=== PATIENT | male | born 1975 | race Caucasian/White ===

== ENCOUNTER → 2017-07-19 13:28 | Outpatient (CLI) | payer MEDICARE, SELFPAY ==
[2017-07-19 13:54] LABS: Basophils % 0.3 % (0.1-2.0); Eosinophils # 0.3 K/mm3 (0.0-0.4); Eosinophils % 2.7 % (0.1-12.0); Hematocrit 44.6 % (42.0-52.0); Hemoglobin 14.2 g/dL (14.1-18.0); Lymphocytes # 1.8 K/mm3 (0.7-4.5); Lymphocytes % 14.5 K/mm3 (10-50); Mean Corpuscular HGB Conc 31.9 g/dL (31.8-35.4); Mean Corpuscular Hemoglobin 30.3 pg (27.0-31.2); Mean Corpuscular Volume 94.9 fl (80-94); Mean Platelet Volume 6.8 fl (7.4-10.4); Monocytes # 0.6 K/mm3 (0.1-1.0); Monocytes % 4.9 % (1.7-9.3); Neutrophils # 9.9 K/mm3 (1.8-7.8); Neutrophils % 77.7 % (37.0-80.0); Platelet Count 217 K/mm3 (142-424); Red Cell Distribution Width 12.2 % (11.5-17.5); White Blood Count 12.8 K/mm3 (4.8-10.8)
[2017-07-19 16:48] LABS: Alanine Aminotransferase 17 U/L (12-78); Albumin Level 3.9 gm/dL (3.4-5.0); Albumin/Globulin Ratio 1.1 (1.1-1.8); Alkaline Phosphatase 108 U/L (46-116); Anion Gap 12.1 mEq/L (5-15); Aspartate Amino Transferase 21 U/L (15-37); Bilirubin,Total 0.4 mg/dL (0.2-1.0); Blood Urea Nitrogen 17 mg/dL (7-18); Calcium 8.8 mg/dL (8.5-10.1); Carbon Dioxide 31 mmol/L (21.0-32.0); Chloride 104 mmol/L (98-107); Creatinine,Serum 0.82 mg/dL (0.70-1.30); Estimated Glomerular Filt Rate 103 ml/min (>60); GFR (African American) 125 ML/MIN (>60); Globulin 3.6 gm/dl (1.3-3.2); Glucose 78 mg/dL (74-106); Potassium 4.1 mmoL/L (3.5-5.1); Sodium 143 mmol/L (136-145); Total Protein,Serum 7.5 gm/dL (6.4-8.2)
== END ==
PROVIDERS: PCP Family Medicine; Visit Provider Nurse Practitioner Family
DX: B19.20 Unspecified viral hepatitis C without hepatic coma (principal)
CPT/HCPCS: 36415; 80053; 85025

== ENCOUNTER 2017-07-19 13:49 | Emergency (ER) | payer MEDICARE, SELFPAY ==
[2017-07-19 15:44] VITALS: BP 121/61; PULSE 63; RESP 20; TEMP 36.4; O2SAT 97; BMI 22.8
--- NOTE | 2017-07-19 17:25 | HMH.EDUTC ---
[facility] Disposition Clinical Impression: Tobacco abuse, High risk medication use Asthma exacerbation Qualifiers: Asthma severity: moderate Asthma persistence: persistent Qualified Code(s): J45.41 - Moderate persistent asthma with (acute) exacerbation Disposition: Home, Self-Care Condition on Discharge: Good Instructions: DI for Asthma -- Adult, DI for Chronic Obstructive Pulmonary Disease Additional Instructions: * STOP SMOKING!!!! * start steroid tomorrow since you had injection (solumedrol) in clinic. These medications were approved by [facility] with specialty pharmacy. * Monitor Temp. FU if fever develops * humidifier/vaporizer/hot steamy shower * Inhaler every 4-6 hours as needed like we discussed. If you are using this multiple times a day, everyday, then it is time for a treatment change. It is VERY important you follow up with your primary care doctor to discuss the use of your albuterol and what happens when you stop taking it as it is possible you also have COPD and need additional medication * Olga RESTREPO was also ok'd by the specialty pharmacy so if you want to continue it, that is ok * The aches/pains, lightheaded, dizziness could be due to your wheezing and cough but also could be related to your new medication and its side effects so if the persist or worsen as we discussed, be sure to follow up with the pharmacy at the number you have in your file that you gave me today Prescriptions: Albuterol Sulfate [Albuterol HFA Inhaler] 1 - 2 puffs IH Q4-6H PRN #1 inh PRN Reason: Shortness Of Breath Or Wheezing predniSONE [Prednisone 10mg Tab Dose-Pack] 10 mg PO UD DOSE PK #1 pack Referrals: Juluis Anderson [Primary Care Provider] - (Call tomorrow and schedule follow up in 1-2 days to discuss what we talked about. Take your discharge instructions with you. 911/ER for any difficulty breathing. Specialty pharmacy for persistant or worsening aches, lightheadedness, dizziness, fatigue.) Time of Disposition: 18:53 Medical Decision Making Vital Signs: 07/19/17 15:44 07/19/17 18:42 Temperature 97.5 F L Temperature Source Temporal Artery Scan Pulse Rate 78 Pulse Rate [Right Brachial] 63 Respiratory Rate 20 Blood Pressure [Right Arm] 121/61 Blood Pressure Mean [Right Arm] 81 Blood Pressure Source [Right Arm] Automatic Cuff Blood Pressure Position [Right Arm] Sitting 02 Sat by Pulse Oximetry 97 Oxygen Delivery Method Room Air - Lab Data Lab results reviewed: Yes: I reviewed the patient's lab results. Flu A neg Flu B neg Orders (Tests/Meds): ED MEDICATIONS Discontinued Medications Generic Name Dose Route Start Last Admin Trade Name Simone PRN Reason Stop Dose Admin Albuterol Sulfate 2.5 mg 07/19/17 17:39 07/19/17 18:38 Albuterol 0.083% 2.5mg/3ml Neb IH 07/19/17 17:40 2.5 mg ONCE ONE Administration Methylprednisolone Sodium Succinate 125 mg 07/19/17 18:24 07/19/17 18:44 Solu-Medrol 125mg/2ml Vial IM 07/19/17 18:25 125 mg ONCE ONE Administration ORDERS Category Date Time Status XR chest 2V Stat Exams 07/19/17 17:39 Taken - Radiology Data #1 Image(s): Chest Image Reviewed: Yes I reviewed the patient's radiology image, Yes I reviewed the patient's radiology image w/the ED provider Preliminary Findings: Normal/NAD (rvwd w/ Dr. Gee, [facility]) - Dejan Inquiry Pt receiving controlled substance: No - Reevaluation(s) Time: 17:41 Reevaluation #1: called Specialty clinic. Closed. Chose option to Speak to medical center teletypesetter operator then asked to speak to [facility] specialty pharmacist. On hold while teletypesetter operator tried to reach someone. Eventually spoke to [facility]. Rvwd pt's symptoms, vitals, and exam. Agreed that some of the symptoms could be side effects of the medication. Discussed how pt would benefit from a steroid considering his wheezing and that a CXR was pending to r/o pneumonia. She had to return my call once at a computer
--- NOTE | 2017-07-19 17:39 | ED_ITS ---
[facility] [place] Clinical Impression: Tobacco abuse, High risk medication use Asthma exacerbation Qualifiers: Asthma severity: moderate Asthma persistence: persistent Qualified Code(s): J45.41 - Moderate persistent asthma with (acute) exacerbation Disposition: Home, Self-Care Condition on Discharge: Good Instructions: DI for Asthma -- Adult, DI for Chronic Obstructive Pulmonary Disease Additional Instructions: * STOP SMOKING!!!! * start steroid tomorrow since you had injection (solumedrol) in clinic. These medications were approved by [facility] with [facility] pharmacy. * Monitor Temp. FU if fever develops * humidifier/vaporizer/hot steamy shower * Inhaler every 4-6 hours as needed like we discussed. If you are using this multiple times a day, everyday, then it is time for a treatment change. It is VERY important you follow up with your primary care doctor to discuss the use of your albuterol and what happens when you stop taking it as it is possible you also have COPD and need additional medication * Olga RESTREPO was also ok'd by the specialty pharmacy so if you want to continue it, that is ok * The aches/pains, lightheaded, dizziness could be due to your wheezing and cough but also could be related to your new medication and its side effects so if the persist or worsen as we discussed, be sure to follow up with the pharmacy at the number you have in your file that you gave me today Prescriptions: Albuterol Sulfate [Albuterol HFA Inhaler] 1 - 2 puffs IH Q4-6H PRN #1 inh PRN Reason: Shortness Of Breath Or Wheezing predniSONE [Prednisone 10mg Tab Dose-Pack] 10 mg PO UD DOSE PK #1 pack Referrals: Julius Anderson [Primary Care Provider] - (Call tomorrow and schedule follow up in 1-2 days to discuss what we talked about. Take your discharge instructions with you. 911/ER for any difficulty breathing. Specialty pharmacy for persistant or worsening aches, lightheadedness, dizziness, fatigue.) Time of Disposition: 18:53 Medical Decision Making Vital Signs: 07/19/17 15:44 07/19/17 18:42 Temperature 97.5 F L Temperature Source Temporal Artery Scan Pulse Rate 78 Pulse Rate [Right Brachial] 63 Respiratory Rate 20 Blood Pressure [Right Arm] 121/61 Blood Pressure Mean [Right Arm] 81 Blood Pressure Source [Right Arm] Automatic Cuff Blood Pressure Position [Right Arm] Sitting 02 Sat by Pulse Oximetry 97 Oxygen Delivery Method Room Air - Lab Data Lab results reviewed: Yes: I reviewed the patient's lab results. Flu A neg Flu B neg Orders (Tests/Meds): ED MEDICATIONS Discontinued Medications Generic Name Dose Route Start Last Admin Trade Name Freq PRN Reason Stop Dose Admin Albuterol Sulfate 2.5 mg 07/19/17 17:39 07/19/17 18:38 Albuterol 0.083% 2.5mg/3ml Neb IH 07/19/17 17:40 2.5 mg ONCE ONE Administration Methylprednisolone Sodium Succinate 125 mg 07/19/17 18:24 07/19/17 18:44 Solu-Medrol 125mg/2ml Vial IM 07/19/17 18:25 125 mg ONCE ONE Administration ORDERS Category Date Time Status XR chest 2V Stat Exams 07/19/17 17:39 Taken - Radiology Data #1 Image(s): Chest Image Reviewed: Yes I reviewed the patient's radiology image, Yes I reviewed the patient's radiology image w/the ED provider Preliminary Findings: Normal/NAD (rvwd w/ Dr. Gee, ER ) - Dejan Inquiry Pt receiving controlled
--- NOTE | 2017-07-19 17:39 | XR_ITS ---
XR chest 2V HISTORY: ITS.REASON: cough/wheezing, hx asthma, on havoni,out of albuterol ORDERING PHYSICIAN: Alyssa Lopez PATIENT AGE: 41 years COMPARISON: 04/05/2017 FINDINGS: The cardiomediastinal silhouette and pulmonary vascularity are within normal limits. Mild hyperinflation with attenuation of peripheral pulmonary vessels consistent with small airway disease. No lobar consolidation or collapse. No acute bony finding. No change chronic blunting of the right CP angle IMPRESSION: Hyperinflation suggesting small airway disease otherwise negative
[2017-07-19 18:42] VITALS: PULSE 77; PULSE 78
[2017-07-19 19:03] LABS: UTC Influenza A Antigen Negative (Negative); UTC Influenza B Antigen Negative (Negative)
== END 2017-07-19 18:54 | disposition home or self-care (01) ==
PROVIDERS: Emergency Provider Nurse Practitioner Family; Family Provider Family Medicine; PCP Family Medicine
DX: J45.41 Moderate persistent asthma with (acute) exacerbation (principal); F17.210 Nicotine dependence, cigarettes, uncomplicated; B19.20 Unspecified viral hepatitis C without hepatic coma; Z87.442 Personal history of urinary calculi; F19.11 Other psychoactive substance abuse, in remission
CPT/HCPCS: 36415; 71046; 80053; 85025; 87804; 96372; 99202

== ENCOUNTER 2017-08-13 01:59 | Observation (INO) | payer MEDICARE, SELFPAY ==
[2017-08-13] VITALS (22 sets, daily range): BP systolic 90–158; BP diastolic 40–86; PULSE 54–85; RESP 12–20; TEMP 36.6–43; O2SAT 95–100; BMI 22.8; BMI 22.7
--- NOTE | 2017-08-13 02:22 | CT_ITS ---
CT abdomen pelvis w con Ordering Physician: Evan Camara MD Patient Age: 41 years: Male HISTORY: ITS.REASON: abdominal pain, nausea, vomiting Lower abdominal pain nausea vomiting. TECHNIQUE: Helical CT scanning through abdomen and pelvis following 75 cc [id number]. Sagittal and coronal reconstructions on CT workstation. COMPARISON :No previous studies for comparison. FINDINGS Lung bases. Minimal scarring towards the lateral right lung base. 4 mm calcified granuloma periphery RML. Minor patchy airspace disease towards left lower lobe axial image 10. Cannot exclude veryearly patchy area of infiltrate .-Consider follow-up chest postoperative Abdomen liver, spleen, pancreas adrenals, appear normal on this postcontrast study. Gallbladder no calcified stones possible sludge no biliary ductal dilatation. GI TRACT.: Findings of acute appendicitis.: Appendix with thickened wall and dilated. Most Dilated at its base where it approaches the cecum, Measuring 11-12 mm diameter in this region. There is prominent stranding in the periappendiceal fat reflecting inflammation..No abscess. No perforation. No significant free fluid at the pelvis Large amount stool remains throughout the colon most evident at the right and transverse colon. Minimal stool at the descending colon. Moderate stool at the sigmoid. Rectum upper normal wall thickness. . Small bowel normal caliber no dilatation or obstruction slight increased fluid distally. TRACT. Numerous bilateral nonobstructive renal calculi. Kidneys.. Left kidney largest calculus measures ~ 7 mm lower pole with other smaller 4 mm or less calculi scattered throughout left kidney. Right kidney.. . Scattered calculi with the largest measuring 6.5 mm at midportion right kidney with similar size calculus towards lower pole.. Other smaller calculi scattered throughout. No ureteral calculi.. . Upper normal or slight wall thickening at the urinary bladder requires correlation to urinalysis. Generous seminal vesicles. Normal size prostate... Osseous. Marked disc space narrowing L1/2 most evident to the right.. Old fusion of the posterior elements from L1-L2 with.. I believe there is been a previous fusion here. There is evidence of pedicle screws tracks at, L1 and L2 vertebral bodies bilaterally as well as left L3 pedicle. Question minor old compression superior L2 posterior element fusion and hypertrophy is seen to this region from the previous postsurgical changes or posttraumatic changes. IMPRESSION 1. Acute appendicitis . No abscess. No perforation. No Complicating features . 2. Numerous nonobstructive renal calculi scattered throughout kidneys bilaterally. 3. Small patchy area of airspace disease question at the left lung base.. Nonspecific but Consider follow-up chest film postoperative if respiratory symptoms develop. 3. Old postsurgical changes and old posterior fusion L1/L2.. Marked disc space narrowing
[2017-08-13 02:41] LABS: Basophils % 0.1 % (0.1-2.0); Eosinophils # 0.3 K/mm3 (0.0-0.4); Eosinophils % 2.3 % (0.1-12.0); Hematocrit 48.8 % (42.0-52.0); Hemoglobin 16.5 g/dL (14.1-18.0); Lymphocytes # 2.3 K/mm3 (0.7-4.5); Lymphocytes % 16.2 K/mm3 (10-50); Mean Corpuscular HGB Conc 33.8 g/dL (31.8-35.4); Mean Corpuscular Hemoglobin 30.9 pg (27.0-31.2); Mean Corpuscular Volume 91.5 fl (80-94); Mean Platelet Volume 8.3 fl (7.4-10.4); Monocytes # 0.7 K/mm3 (0.1-1.0); Monocytes % 4.8 % (1.7-9.3); Neutrophils # 10.8 K/mm3 (1.8-7.8); Neutrophils % 76.5 % (37.0-80.0); Platelet Count 300 K/mm3 (142-424); Red Blood Count 5.33 M/mm3 (4.60-6.20); Red Cell Distribution Width 12.3 % (11.5-17.5); White Blood Count 14.2 K/mm3 (4.8-10.8)
[2017-08-13 02:55] LABS: Alanine Aminotransferase 14 U/L (12-78); Albumin Level 4.2 gm/dL (3.4-5.0); Albumin/Globulin Ratio 0.8 (1.1-1.8); Alkaline Phosphatase 122 U/L (46-116); Amylase 164 U/L (25-125); Anion Gap 14.3 mEq/L (5-15); Aspartate Amino Transferase 15 U/L (15-37); Bilirubin,Total 0.5 mg/dL (0.2-1.0); Blood Urea Nitrogen 21 mg/dL (7-18); Calcium 10.2 mg/dL (8.5-10.1); Carbon Dioxide 26 mmol/L (21.0-32.0); Chloride 101 mmol/L (98-107); Creatinine Clearance Estimated 92 mL/min (0-300); Creatinine,Serum 1.01 mg/dL (0.70-1.30); Estimated Glomerular Filt Rate 81 ml/min (>60); GFR (African American) 98 ML/MIN (>60); Glucose 128 mg/dL (74-106); Potassium 4.3 mmoL/L (3.5-5.1); Sodium 137 mmol/L (136-145); Total Protein,Serum 9.2 gm/dL (6.4-8.2)
[2017-08-13 02:59] LABS: Lipase 69 u/L (73-393)
--- NOTE | 2017-08-13 04:18 | HMH.EDGENADL ---
ED Disposition Clinical Impression: Acute appendicitis Qualifiers: Acute appendicitis type: unspecified acute appendicitis type Qualified Code(s): K35.80 - Unspecified acute appendicitis Leukocytosis Qualifiers: Leukocytosis type: other Qualified Code(s): D72.828 - Other elevated white blood cell count Disposition: Admitted As Inpatient Condition on Discharge: Serious Time of Disposition: 04:20 - Critical Care Critical Care Time: No Attestation: On 08/13/17, the high probability of a clinically significant, sudden or life threatening deterioration of the following system(s) required my full and direct attention, intervention and personal management. The time I documented below is in addition to time spent performing reported procedures but includes the following listed in this critical care notation. Medical Decision Making - Medical Records Medical records reviewed: Yes: I reviewed the patient's medical records. Vital Signs: 08/13/17 02:03 08/13/17 04:56 Temperature 98.4 F 98.6 F Temperature Source Oral Oral Pulse Rate 67 Pulse Rate [Left Radial] 85 Respiratory Rate 16 12 Blood Pressure 106/58 Blood Pressure [Right Arm] 127/86 Blood Pressure Mean [Right Arm] 99 Blood Pressure Source Automatic Cuff Blood Pressure Source [Right Arm] Automatic Cuff Blood Pressure Position Right Lateral Blood Pressure Position [Right Arm] Sitting 02 Sat by Pulse Oximetry 100 Oxygen Delivery Method Room Air Room Air - Lab Data Lab results reviewed: Yes: I reviewed the patient's lab results. Lab Results 08/13/17 02:27: WBC 14.2 H, RBC 5.33, Hgb 16.5, Hct 48.8, MCV 91.5, MCH 30.9, MCHC 33.8, RDW 12.3, Plt Count 300, MPV 8.3, Neut % (Auto) 76.5, Lymph % (Auto) 16.2, Barber % (Auto) 4.8, Eos % (Auto) 2.3, Baso % (Auto) 0.1, Neut # (Auto) 10.8 H, Lymph # (Auto) 2.3, Barber # (Auto) 0.7, Eos # (Auto) 0.3, Baso # (Auto) 0.0 08/13/17 02:27: Sodium 137, Potassium 4.3, Chloride 101, Carbon Dioxide 26, Anion Gap 14.3, BUN 21 H, Creatinine 1.01, Estimated Creat Clear 92, Estimated GFR 81, Est GFR ( Amer) 98, Glucose 128 H, Calcium 10.2 H, Total Bilirubin 0.5, AST 15, ALT 14, Alkaline Phosphatase 122 H, Total Protein 9.2 H, Albumin 4.2, Globulin 5.0 H, Albumin/Globulin Ratio 0.8 L, Amylase 164 H 08/13/17 02:27: Lipase 69 L 08/13/17 02:40: Lactic Acid 2.0 Result diagrams: 08/13/17 02:27 08/13/17 02:27 Orders (Tests/Meds): ED MEDICATIONS Generic Name Dose Route Start Last Admin Trade Name Simone PRN Reason Stop Dose Admin Hydromorphone HCl 1 mg 08/13/17 04:42 Dilaudid 2mg/Ml Syringe IV 09/12/17 04:41 Q4H PRN nausea Lactated Ringer's 1,000 mls @ 125 mls/hr 08/13/17 04:42 Lactated Ringer's 1000 Ml Bag IV 09/12/17 04:41 .Q8H JOSE Morphine Sulfate 4 mg 08/13/17 04:42 Morphine 2mg/Ml Syringe IV 09/12/17 04:41 Q4HP PRN Pain Ondansetron HCl 4 mg 08/13/17 04:42 Zofran 4mg/2ml Vial IV 09/12/17 04:41 Q4H PRN Nausea Promethazine HCl 12.5 mg 08/13/17 04:42 Phenergan 25mg/Ml 1ml Vial IV 09/12/17 04:41 Q4H PRN Nausea Discontinued Medications Generic Name Dose Route Start Last Admin Trade Name Martellq PRN Reason Stop Dose Admin Sodium Chloride 1,000 mls @ 999 mls/hr 08/13/17 02:15 08/13/17 02:56 Sod Chlor 0.9% 1000ml Bag IV 08/13/17 03:15 999 mls/hr .Q1H1M JOSE Administration Lactated Ringer's 1,000 mls @ 999 mls/hr 08/13/17 02:30 08/13/17 02:56 Lactated Ringer's 1000 Ml Bag IV 08/13/17 03:30 999 mls/hr .Q1H1M JOSE Administration Ketorolac Tromethamine 30 mg 08/13/17 02:21 08/13/17 02:42 Toradol 30mg/Ml Vial IV 08/13/17 02:22 30 mg ONCE ONE Administration Lorazepam 2 mg 08/13/17 02:49 08/13/17 02:50 Ativan 2mg/Ml Vial IV 08/13/17 02:50 2 mg ONCE ONE Administration Ondansetron HCl 4 mg 08/13/17 02:21 08/13/17 02:42 Zofran 4mg/2ml Vial IV 08/13/17 02:22 4 mg ONCE ONE A
--- NOTE | 2017-08-13 07:17 | P.CONPHA_ITS ---
[facility] Pharmacy VTE Monitoring - Patient Demographics Admission date: 08/13/17 Report Date: 08/13/17 Time: 07:17 Allergies/Adverse Reactions: Patient Allergies aspirin [ASPIRIN] Allergy (Unknown, Verified 07/19/17 14:58) piperacillin [From Zosyn] Allergy (Verified 07/19/17 15:00) tazobactam [From Zosyn] Allergy (Verified 07/19/17 15:00) Height: 1.73 m Weight: 64.949 kg Patient Problems: Current Active Problems Acute appendicitis (Acute) Leukocytosis (Acute) - VTE Risk Labs: VTE Related Lab Results Hgb 16.5 g/dL (14.1-18.0) 08/13/17 02:27 Hct 48.8 % (42.0-52.0) 08/13/17 02:27 Plt Count 300 K/mm3 (142-424) 08/13/17 02:27 BUN 21 mg/dL (7-18) H 08/13/17 02:27 Creatinine 1.01 mg/dL (0.70-1.30) 08/13/17 02:27 Estimated Creat Clear 92 mL/min (0-300) 08/13/17 02:27 Was VTE Risk Assessment Performed: No VTE Score: 1 VTE Risk Level: Very Low Risk - Prophylaxis VTE Prophylaxis Ordered?: Yes Types of VTE Prophylaxis: TEDS Knee High Location of Applied Device: Bilateral Lower Extremeties - VTE Diagnosis Confirmed Treatment or plan recommended: Continue Current Treatment
--- NOTE | 2017-08-13 07:18 | PC.NURSE ---
REPORT GIVEN TO Lewis LLANOS W/C
--- NOTE | 2017-08-13 07:29 | PC.NURSE ---
Report given to YOVANY Jean
--- NOTE | 2017-08-13 08:09 | HMH.GSHP ---
HPI HPI: Patient is a 41-year-old white male with a reported history of opiate addiction on Suboxone with a history of hepatitis C. He is normally under the care of Dr. Jeff bertrand in [place]. He states that over the past 48 hours or so he has had some vague lower abdominal pain. However yesterday it became excruciatingly more severe. He states that it is worse with excessive movement. He has had some nausea and vomiting. Denies diarrhea. Pain is more significant in the right lower quadrant. Early this morning he presented to the emergency department at [facility]. He was seen and evaluated and found to have a leukocytosis. He had CT scan with IV contrast which revealed findings of acute appendicitis. He was admitted for inpatient management and surgical management of appendicitis. [facility] History I have reviewed the patient's past medical history: Yes Medical History: Reports:: Kidney Stones Denies:: Cancer, Diabetes Mellitus Type 1, Diabetes Mellitus Type 2, MRSA Other Medical History: Reports: Other (Hep C, smoker, drug abuse (now on suboxone)) Laterality Cases: Right: ACL Repair Other Surgeries: Yes: Other (L2 fusion, kidney stones/lithotripsy) Amputation: No Fractures: No - *Social History Educational Level: Completed High School Smoking Status: Current every day smoker Tobacco Type: cigarettes Alcohol Intake: current Substance Use Type: opiates, IV drugs Last Used Substance: unknown Occupational Status: disabled Housing: house Household Members: significant other - Psychiatric History Expresses thoughts of harming self/others: None Suicide Plan Description: No Plan Review of Systems - Constitutional Reports anorexia - Eyes Denies change in vision - ENT Denies hearing loss - *Cardiovascular Denies chest pain - *Respiratory Denies cough - *Gastrointestinal Reports abdominal pain, Reports cramping, Reports nausea, Denies loose stools - *Genitourinary Denies difficulty urinating - *Musculoskeletal Denies joint pain - *Neurologic Denies abnormal movements Meds Home Medications Medication Instructions Recorded Confirmed Type Buprenorphine HCl/Naloxone HCl 1 film PO BID 07/19/17 08/13/17 History [Suboxone 8 mg-2 mg Sl Film] Ledipasvir/Sofosbuvir [Harvoni 1 tab PO DAILY 07/19/17 08/13/17 History 90-400 mg Tablet] Allergies Allergy/AdvReac Type Severity Reaction Status Date / Time aspirin [ASPIRIN] Allergy Unknown Verified 07/19/17 14:58 piperacillin [From Zosyn] Allergy Verified 07/19/17 15:00 tazobactam [From Zosyn] Allergy Verified 07/19/17 15:00 Exam Vital signs and Labs for Last 24 Hours: Temp Pulse Resp BP Pulse Ox 99.8 F H 58 L 18 97/44 98 08/13/17 07:40 08/13/17 07:40 08/13/17 07:40 08/13/17 07:40 08/13/17 07:40 I & O for Last 24 hours: Intake & Output 08/10/17 08/11/17 08/12/17 08/13/17 11:59 11:59 11:59 11:59 Intake Total 0 / 0 Balance 0 / 0 Weight 143 lb 3 oz - Constitutional mild distress, thin - *Routine Respiratory Exam Present: CTA bilaterally - *Routine Cardiovascular Exam Present: RRR - *Routine Abdominal Exam Present: soft, tenderness Comments: Patient has tenderness with voluntary guarding in the right lower quadrant. Assessment and Plan - Assessment and plan all Dx Assessment and Plan for all problems:: Symptoms with objective findings consistent with acute appendicitis. Plan for laparoscopic with possibly open appendectomy.
--- NOTE | 2017-08-13 08:12 | P.HP_ITS ---
HPI HPI: Patient is a 41-year-old white male with a reported history of opiate addiction on Suboxone with a history of hepatitis C. He is normally under the care of Dr. Jeff bertrand in [place]. He states that over the past 48 hours or so he has had some vague lower abdominal pain. However yesterday it became excruciatingly more severe. He states that it is worse with excessive movement. He has had some nausea and vomiting. Denies diarrhea. Pain is more significant in the right lower quadrant. Early this morning he presented to the emergency department at [facility]. He was seen and evaluated and found to have a leukocytosis. He had CT scan with IV contrast which revealed findings of acute appendicitis. He was admitted for inpatient management and surgical management of appendicitis. [facility] History I have reviewed the patient's past medical history: Yes Medical History: Reports:: Kidney Stones Denies:: Cancer, Diabetes Mellitus Type 1, Diabetes Mellitus Type 2, MRSA Other Medical History: Reports: Other (Hep C, smoker, drug abuse (now on suboxone)) Laterality Cases: Right: ACL Repair Other Surgeries: Yes: Other (L2 fusion, kidney stones/lithotripsy) Amputation: No Fractures: No - *Social History Educational Level: Completed High School Smoking Status: Current every day smoker Tobacco Type: cigarettes Alcohol Intake: current Substance Use Type: opiates, IV drugs Last Used Substance: unknown Occupational Status: disabled Housing: house Household Members: significant other - Psychiatric History Expresses thoughts of harming self/others: None Suicide Plan Description: No Plan Review of Systems - Constitutional Reports anorexia - Eyes Denies change in vision - ENT Denies hearing loss - *Cardiovascular Denies chest pain - *Respiratory Denies cough - *Gastrointestinal Reports abdominal pain, Reports cramping, Reports nausea, Denies loose stools - *Genitourinary Denies difficulty urinating - *Musculoskeletal Denies joint pain - *Neurologic Denies abnormal movements Meds Home Medications Medication Instructions Recorded Confirmed Type Buprenorphine HCl/Naloxone HCl 1 film PO BID 07/19/17 08/13/17 History [Suboxone 8 mg-2 mg Sl Film] Ledipasvir/Sofosbuvir [Harvoni 1 tab PO DAILY 07/19/17 08/13/17 History 90-400 mg Tablet] Allergies Allergy/AdvReac Type Severity Reaction Status Date / Time aspirin [ASPIRIN] Allergy Unknown Verified 07/19/17 14:58 piperacillin [From Zosyn] Allergy Verified 07/19/17 15:00 tazobactam [From Zosyn] Allergy Verified 07/19/17 15:00 Exam Vital signs and Labs for Last 24 Hours: Temp Pulse Resp BP Pulse Ox 99.8 F H 58 L 18 97/44 98 08/13/17 07:40 08/13/17 07:40 08/13/17 07:40 08/13/17 07:40 08/13/17 07:40 I & O for Last 24 hours: Intake & Output 08/10/17 08/11/17 08/12/17 08/13/17 11:59 11:59 11:59 11:59 Intake Total 0 / 0 Balance 0 / 0 Weight 143 lb 3 oz - Constitutional mild distress, thin - *Routine Respiratory Exam Present: CTA bilaterally - *Routine Cardiovascular Exam Present: RRR - *Routine Abdominal Exam Present: soft, tenderness Comments: Patient has tenderness with voluntary guarding in the right lower quadrant. Assessment and Plan
[2017-08-13 09:15] LABS: Microscopic, Urine URINE MICROSCOPIC (MICROSCOPIC)
[2017-08-13 09:22] LABS: Appearance,Urine CLEAR (Clear); Blood, Urine 2+ (Negative); Glucose,Urine (UA) Negative (Negative); Ketones,Urine Negative (Negative); Leukocyte Esterase,Urine Negative (Negative); Nitrate,Urine Negative (Negative); PH,Urine 6.5 (5.0-8.5); Protein,Urine TRACE (Negative); Urobilinogen,Urine 0.2 EU/dl (0.2)
[2017-08-13 09:23] LABS: Bilirubin,Urine Negative (Negative)
[2017-08-13 09:26] LABS: Amphetamine/Metha Screen,Urine Negative ng/mL (<1000); Barbiturates Screen,Urine Negative ng/mL (<200); Benzodiazepines Screen,Urine Negative ng/mL (200); Cannabinoid Screen,Urine Negative ng/mL (<50); Cocaine Screen,Urine Negative ng/g (<300); Methadone Screen,Urine Negative ng/mL (<300); Opiate Screen,Urine Positive ng/mL (<300); Phencyclidine Screen,Urine Negative ng/mL (<25)
[2017-08-13 09:30] LABS: RBC,Urine Occasional #/hpf (0-3)
--- NOTE | 2017-08-13 09:46 | P.OP_ITS ---
Date of procedure: 08/13/17 Pre-op Diagnosis:: Acute appendicitis Post-op diagnosis:: same Procedure performed:: Laparoscopic appendectomy Surgeon:: Evan Nieves MD Over Short And Damage Clerk(s):: Milagros Langley TENNIS DIRECTOR:: Bao Alvarado Anesthesia: ALICIA Estimated blood loss (mL): 20 Clinical Note:: Patient is a 41-year-old white male. He states that for about 48 hours he has had some vague lower abdominal pain. However, yesterday, it became quite severe. He describes it across the belt line region. He had associated nausea with vomiting. He presented to the emergency department early this morning and was found to have a leukocytosis. He had CT scan with IV contrast which revealed findings consistent with acute appendicitis. He was admitted for inpatient management and appendectomy. Operative findings:: He had an acute mildly separative non-necrotic nonperforated appendicitis. It was partially retrocecal lateral and posterior to the cecum but not retroperitoneal. Operative note:: Consent was obtained and patient was taken to the operating room. He was given preoperative intravenous antibiotics. He was positioned in a supine position. General anesthesia was induced. Melendez catheter was placed. Abdomen was prepped and draped in the standard surgical fashion. Subumbilical skin incision was made and while performing abdominal wall lift Veress needle was inserted. CO2 pneumoperitoneum was achieved to 15 mmHg. 12 mm optical trocar was inserted at the umbilicus. He was positioned in Trendelenburg the left side down. A 5 mm trocar was inserted in the suprapubic location and right upper quadrant. 0? laparoscope was replaced with a 5 mm 30? laparoscope. Base of the appendix was initially identified. The appendix was identified by retracting the cecum somewhat medially. Appendix was somewhat adherent in the posterior lateral cecal location. It was freed and delivered anteriorly. The mesoappendix was divided with Brian ultrasonic harmonic megan with care taken to coagulate the appendiceal artery in the process. Dissection was carried down to the appendiceal base. The appendix was divided at base with the endoscopic MELISSA linear cutting stapling device. Appendix was placed within an Endo Catch retrieval device and removed from the peritoneal cavity via the umbilical trocar site. Appendiceal stump was inspected for integrity and hemostasis which was assured. Periappendiceal and pelvic region was irrigated and aspirated until clear. Trochars were removed and CO2 pneumoperitoneum was evacuated. Fascia at the umbilicus was closed with a 0 Vicryl suture. Local anesthetic was infiltrated. Skin incisions closed with 4-0 Monocryl subcuticular fashion. Steri-Strips and dressings were applied. Condition: stable Disposition: PACU Specimens:: Appendix Complications:: None
--- NOTE | 2017-08-13 09:53 | HMH.ANESCL ---
[facility] Anesthesia Checklist - Patient Identification Patient Identification: Arm Band - Structural Data Admitted From: Home Planned Operative Procedure/s: lap appy Consent for Planned Operative Procedure(s) Verified: Yes Verified Documents: Surgical Consent, History and Physical - NPO Status Verified Time NPO: 00:00 - Additional verifications Anesthesia Reactions: No - Airway Assessment C-Spine Mobility Assessed: Yes TMJ Mobility Assessed: Yes Dentition: Poor Dentition - Neurological Assessment Level of Consciousness: Awake, Alert - Anesthesia Plan Anesthesia Risk discussed: Yes Anesthesia Plan: Verified ASA Class: II (e) Anesthesia Type: General [facility] Anesthesia HX I have reviewed the patient's past medical history: Yes Medical History: Reports:: Asthma, Kidney Stones Denies:: Cancer, Diabetes Mellitus Type 1, Diabetes Mellitus Type 2, MRSA Other Medical History: Reports: Other (Hep C, smoker, drug abuse (now on suboxone)) Laterality Cases: Right: ACL Repair Other Surgeries: Yes: Other (L2 fusion, kidney stones/lithotripsy, hx tracheostomy) Amputation: No Fractures: No
--- NOTE | 2017-08-13 09:55 | P.PN_ITS ---
[facility] Anesthesia Record Part I Intake, IV Amount: 800 Estimated blood loss (mL): 10 Urine output (mL): 100 Blood Pressure: 158/82 SaO2: 97 Pulse Rate: 72 Respiratory Rate: 16 Temperature: 99.1 F Patient is:: Drowsy, Stable Stable to PACU at:: 09:50
--- NOTE | 2017-08-13 09:55 | HMH.ANESII ---
[facility] Anesthesia Record Part II Discharge Time: 10:20 Destination: 2nd floor PACU nurse assessment reviewed?: Yes Patient Condition:: Good Anesthesia Complications:: None
--- NOTE | 2017-08-13 10:40 | SUR.OPER ---
0942-#16 fr edmonds catheter discontined at this time
--- NOTE | 2017-08-13 10:45 | PC.NURSE ---
1010-pt eating ice chips w/out difficulty
--- NOTE | 2017-08-13 10:54 | PC.NURSE ---
1018-detailed report called to JacqueRN 1020-pt transported to 2nd floor room 205 via hospital bed w/rails up per RERE Luo & RERE Arreola. Pt left in care of RERE Santillan with bed locked in lowest position and family at bedside. VSS. Pt stable.
--- NOTE | 2017-08-13 11:02 | PC.NURSE ---
PT IS RESTING IN BED WITH FAMILY AT BEDSIDE, RECEIVED PAIN MEDICATION FOR DISCOMFORT, DRESSINGS TO THE ABDOMEN ARE C/D/I, LUNG SOUNDS CLEAR, BOWEL SOUNDS HYPOACTIVE. PT HAS BEEN ANSWERING QUESTIONS APPROPRIATELY, VSS, WILL CONTINUE TO MONITOR.
--- NOTE | 2017-08-13 16:34 | HMH.DCSUM ---
General - General Admission date: 08/13/17 Discharge date: 08/13/17 HPI HPI: Patient is a 41-year-old white male with a reported history of opiate addiction on Suboxone with a history of hepatitis C. He is normally under the care of Dr. Jeff bertrand in [place]. He states that over the past 48 hours or so he has had some vague lower abdominal pain. However yesterday it became excruciatingly more severe. He states that it is worse with excessive movement. He has had some nausea and vomiting. Denies diarrhea. Pain is more significant in the right lower quadrant. Early this morning he presented to the emergency department at [facility]. He was seen and evaluated and found to have a leukocytosis. He had CT scan with IV contrast which revealed findings of acute appendicitis. He was admitted for inpatient management and surgical management of appendicitis. Objective Vital signs: Temp Pulse Resp BP Pulse Ox 98.2 F 63 18 122/64 96 08/13/17 15:10 08/13/17 15:10 08/13/17 15:10 08/13/17 15:10 08/13/17 15:10 - *Routine Abdominal Exam Present: tenderness Hospital Course Hospital Course: Patient was admitted to the medical surgical floor for inpatient care and appendectomy. Several hours after admission he was taken to the operating room and underwent laparoscopic appendectomy. He was found to have an acutely inflamed very minimally separative appendicitis. Please see operative dictation for complete details. He was given preoperative Invanz due to his penicillin and piperacillin allergies. He was readmitted postoperatively. Patient convalesced quite quickly and well. About an hour after surgery he dressed himself and felt ready to be discharged. He was tolerating a full liquid diet without difficulty. Arrangements were made for discharge home later in the afternoon after he had undergone appendectomy that morning. Results Labs on day of discharge: Labs from last 24 hours 08/13/17 08/13/17 09:04 09:04 Urine Color Yellow Urine Appearance Clear Urine pH 6.5 Ur Specific [place] 1.010 Urine Protein Trace Urine Glucose (UA) Negative Urine Ketones Negative Urine Blood 2+ Urine Nitrate Negative Urine Bilirubin Negative Urine Urobilinogen 0.2 Ur Leukocyte Esterase Negative Urine RBC Occasional Urine Opiates Screen Positive H Ur Barbituates Screen Negative Ur Phencyclidine Scrn Negative Ur Amphetamines Screen Negative U Methamphetamines Scrn Negative U Benzodiazepines Scrn Negative Urine Cocaine Screen Negative U Marijuana (THC) Screen Negative DS: Diagnosis - Discharge Diagnosis (1) Acute appendicitis Status: Acute Discharge Plan - Patient Discharge Instructions ACTIVITY: No heavy lifting DIET: advance to your usual diet - Follow up Plan Follow up with: Evan Nieves MD [Staff Physician] - 2 weeks Disposition: Home, Self-Residential Medications: Home Medications Medication Instructions Recorded Confirmed Type Buprenorphine HCl/Naloxone HCl 1 film PO BID 07/19/17 08/13/17 History [Suboxone 8 mg-2 mg Sl Film] Ledipasvir/Sofosbuvir [Harvoni 1 tab PO DAILY 07/19/17 08/13/17 History 90-400 mg Tablet] Prescriptions/Medication Reconciliation: New Hydrocod/Acet 5/325 mg [[place] 5/325mg tablet] 1 - 2 tab PO Q6HP PRN #17 tab PRN Reason: Moderate Pain Continue Ledipasvir/Sofosbuvir [Harvoni 90-400 mg Tablet] 1 tab PO DAILY Buprenorphine HCl/Naloxone HCl [Suboxone 8 mg-2 mg Sl Film] 1 film PO BID Albuterol Sulfate [Albuterol HFA Inhaler] 1 - 2 puffs IH Q4-6H PRN #1 inh PRN Reason: Shortness Of Breath Or Wheezing
--- NOTE | 2017-08-13 16:37 | P.DS_ITS ---
General - General Admission date: 08/13/17 Discharge date: 08/13/17 HPI HPI: Patient is a 41-year-old white male with a reported history of opiate addiction on Suboxone with a history of hepatitis C. He is normally under the care of Dr. Jeff bertrand in [place]. He states that over the past 48 hours or so he has had some vague lower abdominal pain. However yesterday it became excruciatingly more severe. He states that it is worse with excessive movement. He has had some nausea and vomiting. Denies diarrhea. Pain is more significant in the right lower quadrant. Early this morning he presented to the emergency department at [facility]. He was seen and evaluated and found to have a leukocytosis. He had CT scan with IV contrast which revealed findings of acute appendicitis. He was admitted for inpatient management and surgical management of appendicitis. Objective Vital signs: Temp Pulse Resp BP Pulse Ox 98.2 F 63 18 122/64 96 08/13/17 15:10 08/13/17 15:10 08/13/17 15:10 08/13/17 15:10 08/13/17 15:10 - *Routine Abdominal Exam Present: tenderness Hospital Course Hospital Course: Patient was admitted to the medical surgical floor for inpatient care and appendectomy. Several hours after admission he was taken to the operating room and underwent laparoscopic appendectomy. He was found to have an acutely inflamed very minimally separative appendicitis. Please see operative dictation for complete details. He was given preoperative Invanz due to his penicillin and piperacillin allergies. He was readmitted postoperatively. Patient convalesced quite quickly and well. About an hour after surgery he dressed himself and felt ready to be discharged. He was tolerating a full liquid diet without difficulty. Arrangements were made for discharge home later in the afternoon after he had undergone appendectomy that morning. Results Labs on day of discharge: Labs from last 24 hours 08/13/17 08/13/17 09:04 09:04 Urine Color Yellow Urine Appearance Clear Urine pH 6.5 Ur Specific [place] 1.010 Urine Protein Trace Urine Glucose (UA) Negative Urine Ketones Negative Urine Blood 2+ Urine Nitrate Negative Urine Bilirubin Negative Urine Urobilinogen 0.2 Ur Leukocyte Esterase Negative Urine RBC Occasional Urine Opiates Screen Positive H Ur Barbituates Screen Negative Ur Phencyclidine Scrn Negative Ur Amphetamines Screen Negative U Methamphetamines Scrn Negative U Benzodiazepines Scrn Negative Urine Cocaine Screen Negative U Marijuana (THC) Screen Negative DS: Diagnosis - Discharge Diagnosis (1) Acute appendicitis Status: Acute Discharge Plan - Patient Discharge Instructions ACTIVITY: No heavy lifting DIET: advance to your usual diet - Follow up Plan Follow up with: Evan Nieves MD [Staff Physician] - 2 weeks Disposition: Home, Self-Nursing Home Medications: Home Medications Medication Instructions Recorded Confirmed Type Buprenorphine HCl/Naloxone HCl 1 film PO BID 07/19/17 08/13/17 History [Suboxone 8 mg-2 mg Sl Film] Ledipasvir/Sofosbuvir [Harvoni 1 tab PO DAILY 07/19/17 08/13/17 History 90-400 mg Tablet] Prescriptions/Medication Reconciliation: New
--- NOTE | 2017-08-13 17:04 | PC.NURSE ---
PT HAS BEEN UP AMBULATING IN THE ROOM ALL AFTERNOON, PHYSICIAN WAS CALLED EARLIER AND STATED AFTER OFFICE HOURS HE WOULD COME OVER TO THE FLOOR TO SEE HOW PT WAS DOING AND POSSIBLY DC PT HOME. PT HAS BEEN ALERT AND ORIENTED, ALL POST OP VSS, DRESSINGS TO THE ABDOMEN C/D/I.
[2017-08-13 17:36] LABS: Color,Urine YELLOW (Yellow)
[2017-08-14 08:21] LABS: Hep A Ab, IgM Negative (Negative); Hepatitis B Core Antibody IgM Negative (Negative); Hepatitis B Surface Antigen Negative (Negative)
[2017-08-15 06:37] LABS: Hepatitis C Antibody >11.0 s/co ratio (0.0-0.9)
== END 2017-08-13 17:07 | disposition home or self-care (01) ==
LOC: ER 04:20 → 2ND 04:45
PROVIDERS: Admitting Provider Surgery; Emergency Provider Emergency Medicine; Family Provider Family Medicine; PCP Family Medicine; Visit Provider Surgery
PROC: (CPT 44950; principal; 2017-08-13 08:30)
DX: K35.80 Unspecified acute appendicitis (principal); K75.9 Inflammatory liver disease, unspecified; F11.20 Opioid dependence, uncomplicated
CPT/HCPCS: 44970; 74177; 80053; 80074; 80305; 81001; 82150; 83605; 83690; 85025; 87040; 87077; 87186; 88304; 93041; 96365; 96366; 96374; 96375; 99284; G0378; J0131; J1335; J2405; J2710; Q9967

== ENCOUNTER → 2017-08-30 10:41 | Outpatient (CLI) | payer MEDICARE, SELFPAY ==
[2017-08-30 11:39] LABS: INR 0.97 (0.9-1.1); Prothrombin Time 10.5 seconds (9.4-11.8)
[2017-08-30 11:41] LABS: Alanine Aminotransferase 14 U/L (12-78); Albumin Level 3.9 gm/dL (3.4-5.0); Alkaline Phosphatase 90 U/L (46-116); Anion Gap 12.8 mEq/L (5-15); Aspartate Amino Transferase 16 U/L (15-37); Bilirubin,Total 0.5 mg/dL (0.2-1.0); Blood Urea Nitrogen 12 mg/dL (7-18); Carbon Dioxide 27 mmol/L (21.0-32.0); Chloride 100 mmol/L (98-107); Creatinine,Serum 0.77 mg/dL (0.70-1.30); Estimated Glomerular Filt Rate 111 ml/min (>60); GFR (African American) 134 ML/MIN (>60); Glucose 95 mg/dL (74-106); Potassium 3.8 mmoL/L (3.5-5.1); Sodium 136 mmol/L (136-145); Total Protein,Serum 7.9 gm/dL (6.4-8.2)
[2017-08-30 11:54] LABS: Basophils % 0.4 % (0.1-2.0); Eosinophils # 0.2 K/mm3 (0.0-0.4); Eosinophils % 3.2 % (0.1-12.0); Lymphocytes % 29.7 K/mm3 (10-50); Mean Corpuscular HGB Conc 31.9 g/dL (31.8-35.4); Mean Corpuscular Hemoglobin 30.8 pg (27.0-31.2); Mean Corpuscular Volume 96.6 fl (80-94); Mean Platelet Volume 8.6 fl (7.4-10.4); Monocytes # 0.4 K/mm3 (0.1-1.0); Monocytes % 5.7 % (1.7-9.3); Platelet Count 249 K/mm3 (142-424); Red Blood Count 4.55 M/mm3 (4.60-6.20); Red Cell Distribution Width 12.5 % (11.5-17.5); White Blood Count 6.6 K/mm3 (4.8-10.8)
== END ==
PROVIDERS: Visit Provider Nurse Practitioner Family
DX: B19.20 Unspecified viral hepatitis C without hepatic coma (principal); Z79.899 Other long term (current) drug therapy
CPT/HCPCS: 36415; 80053; 85025; 85610; 87522

== ENCOUNTER → 2017-10-18 10:12 | Outpatient (CLI) | payer MEDICARE, SELFPAY ==
[2017-10-18 11:09] LABS: Basophils % 0.6 % (0.1-2.0); Eosinophils # 0.3 K/mm3 (0.0-0.4); Eosinophils % 5.6 % (0.1-12.0); Hemoglobin 14.3 g/dL (14.1-18.0); Lymphocytes # 2.2 K/mm3 (0.7-4.5); Lymphocytes % 36.7 K/mm3 (10-50); Mean Corpuscular HGB Conc 32.5 g/dL (31.8-35.4); Mean Corpuscular Hemoglobin 31.2 pg (27.0-31.2); Mean Corpuscular Volume 96.2 fl (80-94); Monocytes # 0.4 K/mm3 (0.1-1.0); Monocytes % 6.3 % (1.7-9.3); Neutrophils # 3.1 K/mm3 (1.8-7.8); Neutrophils % 50.8 % (37.0-80.0); Platelet Count 240 K/mm3 (142-424); Red Blood Count 4.58 M/mm3 (4.60-6.20); Red Cell Distribution Width 12.8 % (11.5-17.5)
[2017-10-18 11:52] LABS: Alanine Aminotransferase 11 U/L (12-78); Albumin Level 3.9 gm/dL (3.4-5.0); Albumin/Globulin Ratio 1.2 (1.1-1.8); Alkaline Phosphatase 90 U/L (46-116); Anion Gap 13.7 mEq/L (5-15); Aspartate Amino Transferase 23 U/L (15-37); Bilirubin,Total 0.3 mg/dL (0.2-1.0); Blood Urea Nitrogen 13 mg/dL (7-18); Calcium 8.9 mg/dL (8.5-10.1); Carbon Dioxide 27 mmol/L (21.0-32.0); Chloride 102 mmol/L (98-107); Creatinine,Serum 0.72 mg/dL (0.70-1.30); Estimated Glomerular Filt Rate 120 ml/min (>60); GFR (African American) 145 ML/MIN (>60); Globulin 3.2 gm/dl (1.3-3.2); Glucose 89 mg/dL (74-106); Potassium 4.7 mmoL/L (3.5-5.1); Sodium 138 mmol/L (136-145); Total Protein,Serum 7.1 gm/dL (6.4-8.2)
== END ==
PROVIDERS: Visit Provider Nurse Practitioner Family
DX: B19.20 Unspecified viral hepatitis C without hepatic coma (principal); Z79.899 Other long term (current) drug therapy
CPT/HCPCS: 36415; 80053; 85025; 87522

== ENCOUNTER → 2017-11-28 16:16 | Outpatient (CLI) | payer MEDICARE, SELFPAY ==
[2017-11-28 16:30] LABS: Basophils % 0.6 % (0.1-2.0); Eosinophils # 0.2 K/mm3 (0.0-0.4); Eosinophils % 3.5 % (0.1-12.0); Hemoglobin 14.5 g/dL (14.1-18.0); Lymphocytes # 2.5 K/mm3 (0.7-4.5); Lymphocytes % 37.2 K/mm3 (10-50); Mean Corpuscular HGB Conc 31.6 g/dL (31.8-35.4); Mean Corpuscular Hemoglobin 29.8 pg (27.0-31.2); Mean Corpuscular Volume 94.6 fl (80-94); Mean Platelet Volume 6.9 fl (7.4-10.4); Monocytes # 0.4 K/mm3 (0.1-1.0); Monocytes % 6.1 % (1.7-9.3); Neutrophils # 3.6 K/mm3 (1.8-7.8); Neutrophils % 52.7 % (37.0-80.0); Platelet Count 237 K/mm3 (142-424); Red Blood Count 4.86 M/mm3 (4.60-6.20); Red Cell Distribution Width 12.5 % (11.5-17.5); White Blood Count 6.8 K/mm3 (4.8-10.8)
[2017-11-28 18:15] LABS: Alanine Aminotransferase 11 U/L (12-78); Albumin Level 4.1 gm/dL (3.4-5.0); Albumin/Globulin Ratio 1.2 (1.1-1.8); Alkaline Phosphatase 83 U/L (46-116); Anion Gap 12.4 mEq/L (5-15); Aspartate Amino Transferase 15 U/L (15-37); Bilirubin,Total 0.3 mg/dL (0.2-1.0); Blood Urea Nitrogen 20 mg/dL (7-18); Calcium 9.5 mg/dL (8.5-10.1); Carbon Dioxide 28 mmol/L (21.0-32.0); Chloride 104 mmol/L (98-107); Creatinine,Serum 0.82 mg/dL (0.70-1.30); Estimated Glomerular Filt Rate 103 ml/min (>60); GFR (African American) 124 ML/MIN (>60); Globulin 3.3 gm/dl (1.3-3.2); Glucose 52 mg/dL (74-106); Potassium 4.4 mmoL/L (3.5-5.1); Sodium 140 mmol/L (136-145); Total Protein,Serum 7.4 gm/dL (6.4-8.2)
== END ==
PROVIDERS: Visit Provider Nurse Practitioner Family
DX: B19.20 Unspecified viral hepatitis C without hepatic coma (principal); Z79.899 Other long term (current) drug therapy
CPT/HCPCS: 36415; 80053; 85025; 87522

== ENCOUNTER 2019-09-15 01:06 | Inpatient (IN) ==
--- NOTE | 2019-09-15 01:29 | Emergency Department Note ---
ED Disposition Clinical Impression: Upper GI bleed Acute bronchitis Qualifiers: Bronchitis organism: unspecified organism Qualified Code(s): J20.9 - Acute bronchitis, unspecified Disposition: Admitted as Observation Condition on Discharge: Fair - Critical Care Critical Care Time: No Attestation: On 09/15/19, the high probability of a clinically significant, sudden or life threatening deterioration of the following system(s) required my full and direct attention, intervention and personal management. The time I documented below is in addition to time spent performing reported procedures but includes the following listed in this critical care notation. Medical Decision Making - Dejan Inquiry Pt receiving controlled substance: No Vital Signs: 09/15/19 01:09 09/15/19 02:09 Temperature 99.0 F Temperature Source Oral Pulse Rate [Left Radial] 101 H 82 Respiratory Rate 16 15 Blood Pressure [Right Arm] 149/106 H 124/77 Blood Pressure Mean [Right Arm] 120 92 Blood Pressure Source [Right Arm] Automatic Cuff Automatic Cuff Blood Pressure Position [Right Arm] Sitting Sitting 02 Sat by Pulse Oximetry 97 97 Oxygen Delivery Method Room Air Room Air - Lab Data Lab Results 09/15/19 01:20: Urine Color Yellow, Urine Appearance Clear, Urine pH 6.0, Ur Specific [place] >= 1.030, Urine Protein Trace, Urine Glucose (UA) Negative, Urine Ketones Trace, Urine Blood 2+, Urine Nitrate Negative, Urine Bilirubin Negative, Urine Urobilinogen 0.2, Ur Leukocyte Esterase Negative, Urine RBC 20- 50, Urine WBC Occasional, Amorphous Sediment Trace, Urine Mucus Trace 09/15/19 01:20: Stool Occult Blood Positive A 09/15/19 01:25: WBC 13.6 H, RBC 3.83 L, Hgb 12.1 L, Hct 37.3 L, MCV 97.5 H, MCH 31.5 H, MCHC 32.3, RDW 13.5, Plt Count 327, MPV 7.4, Neut % (Auto) 74.2, Lymph % (Auto) 22.1, [place] % (Auto) 3.4, Eos % (Auto) 0.1, Baso % (Auto) 0.2, Neut # (Auto) 10.1 H, Lymph # (Auto) 3.0, [place] # (Auto) 0.5, Eos # (Auto) 0.0, Baso # (Auto) 0.0 09/15/19 01:25: Sodium 137, Potassium 4.0, Chloride 103, Carbon Dioxide 26, Anion Gap 12.0, BUN 31 H, Creatinine 0.80, Estimated Creat Clear 117, Estimated GFR 105, Est GFR ( Amer) 127, Glucose 99, Calcium 9.4, Total Bilirubin 0.1 L, AST 23, ALT 8 L, Alkaline Phosphatase 57, Total Protein 6.7, Albumin 4.0, Globulin 2.7, Albumin/Globulin Ratio 1.5 09/15/19 01:25: PT 10.1, INR 0.97, APTT 25.5 09/15/19 01:25: Lipase 11 L 09/15/19 02:20: Lactate 1.6 09/15/19 02:25: Influenza Type A Ag Negative, Influenza Type B Ag Negative 09/15/19 02:25: Group A Strep Rapid Negative Result diagrams: 09/15/19 01:25 09/15/19 01:25 Orders (Tests/Meds): ED MEDICATIONS Generic Name Dose Route Start Last Admin Trade Name Freq PRN Reason Stop Dose Admin Pantoprazole Sodium 80 mg/ 100 mls @ 10 mls/hr 09/15/19 02:44 09/15/19 01:54 Sodium Chloride IV 09/18/19 02:43 10 mls/hr .Q10H JOSE Administration Ceftriaxone Sodium 1 gm/ 50 mls @ 100 mls/hr 09/15/19 03:00 Sodium Chloride IV 09/29/19 02:59 Q24H JOSE Protocol Azithromycin 500 mg/ Sodium 250 mls @ 250 mls/hr 09/15/19 03:00 Chloride IV 09/29/19 02:59 Q24H JOSE Protocol Sodium Chloride 3 ml 09/15/19 01:44 Sodium Chloride 3% 15ml [facility] 10/15/19 01:43 ONCE PRN INDUCE SPUTUM COLLECTION Discontinued Medications Generic Name Dose Route Start Last Admin Trade Name Freq PRN Reason Stop Dose Admin Albuterol/Ipratropium 3 ml 09/15/19 01:45 09/15/19 01:54 Duoneb 3ml [facility] 09/15/19 01:46 3 ml ONCE ONE Administration Pantoprazole Sodium 80 mg/ 100 mls @ 100 mls/hr 09/15/19 01:44 09/15/19 01:54 Sodium Chloride IV 09/15/19 02:43 100 mls/hr ONCE ONE Administration Ioversol 75 ml 09/15/19 02:30 09/15/19 02:31 Rad-Optiray 350 150ml Vial IV 09/15/19 02:31 75 ml ONCE ONE Administration Sodium Chloride 10 ml 09/15/19 02:30 09/15/19 02:31 Rad-Saline Flush 10ml Syringe IV 09/15/19 02:31 10 ml ONCE ONE Administration ORDERS Category Date Time Status Type and Screen Stat BBK 09/15/19 01:[address] abdomen pelvis w con Stat Cat Scan 09/15/19 01:49 Taken Chest XR 2 view (NOT portable) [XR chest 2V] Stat Exams 09/15/19 01:45 Taken Diarrhea 23 Panel, PCR Stat Lab 09/15/19 01:20 Received SARS-CoV-2, SORAIDA Stat Lab 09/15/19 01:42 Ordered Blood Culture Stat Micro 09/15/19 02:20 Received Sputum Culture & Gram Stain Stat Micro 09/15/19 01:44 Ordered Strep Screen Confirmation Stat Micro 09/15/19 02:25 Received - Radiology Data #1 Image(s): Chest Image Reviewed: Yes I reviewed the patient's radiology image Preliminary Findings: Normal/NAD - CT Data CT Scan: Abdomen, Pelvis Time Received: 02:38 ([facility] fax) ED CT Reviewed: Yes: I have viewed the radiologist's interpretation Findings Narrative: Mild pancolitis - Physician Consults Physician Consulted: Carol Time: 02:55 Reason -: Admission Comment/Response: Agrees to admit the patient to the hospital. We discussed the patient's clinical information, including history, exam, laboratory and radiology results and ED course. Per hospital procedure, I will write temporary bridge inpatient orders on the patient. Specific orders requested by the admitting physician: Rocephin and Zithromax, continue Protonix and IV fluids, n.p.o., surgical consult General Adult HPI - General Stated complaint: Blood in stool;SOA;Cough;Abd Pain;Weakness Time Seen by Provider: 09/15/19 01:28 - History of Present Illness HPI narrative: Complains of passing blood per rectum that began today. 4 episodes tonight, large amounts of dark blood. No vomiting of blood. He does have nausea. Generalized abdominal pain for about 3 to 4 days. States that he is also being treated for pneumonia since about 4 days ago. He says he was seen by his primary care provider at [facility] and was started on Levaquin, prednisone, cough syrup, and albuterol inhaler. He does not feel like he is getting any better. He has had fever to 101.4. He has productive cough and shortness of breath. He says that he did not have a chest x-ray, he was diag nosed with pneumonia by clinical findings, says he was told he has pneumonia in his left lung. He is a smoker. He says that he had a bleeding ulcer a couple of years ago. He does not remember where he was treated but remembers that he did have an endoscopy. He does not remember whether he was having hematemesis, hematochezia, or melena at that time. In addition to prednisone, he is taking ibuprofen, which he takes chronically, about 3 over the counter tablets a day. He drinks about 3 times a week, about a sixpack each time. He is not on any blood thinners. History of treated hepatitis C. No known history of cirrhosis or esophageal varices. - Related Data Home Medications Medication Instructions Recorded Confirmed Albuterol Sulfate [Proair Hfa 90 mcg INHALATION NEEDED PRN 03/17/18 09/15/19 90mcg/puff Inh] Buprenorphine HCl/Naloxone HCl 8 mg PO DAILY 03/17/18 09/15/19 [Suboxone 8 mg-2 mg Sl Film] diazePAM [Valium 10mg tablet] 10 mg PO BID 09/15/19 09/15/19 Allergies Allergy/AdvReac Type Severity Reaction Status Date / Time aspirin [ASPIRIN] Allergy Unknown Verified 09/15/19 02:32 piperacillin [From Zosyn] Allergy Verified 09/15/19 02:32 tazobactam [From Zosyn] Allergy Verified 09/15/19 02:32 [facility] History - Hepatitis A Screen Attestation statement:: This patient has been screened for Hepatitis A risk factors. I have reviewed the patient's past medical history: Yes Medical History: Reports:: Asthma, Kidney Stones Denies:: Cancer, Diabetes Mellitus Type 1, Diabetes Mellitus Type 2, MRSA Other Medical History: Reports: Other Laterality Cases: Right: ACL Repair Other Surgeries: Yes: Appendectomy, EGD, Other Amputation: No Fractures: No - Social History Smoking Status: Current every day smoker Tobacco Type: cigarettes # Packs/Day (cigarettes): 1 Alcohol Intake: never Alcohol Intake Frequency:: holidays/special occasions only Substance Use Type: former substance user Occupational Status: disabled Housing: house Household Members: significant other Family Hx:: Cancer, Hypertension, Diabetes ROS Obtained: Yes All systems reviewed & no additional complaints - Constitutional Constitutional: Reports fever(s) - ENT Ears, Nose, Mouth, and Throat: Reports nasal discharge, Reports sore throat - Respiratory Respiratory: Yes cough, Yes dyspnea - Gastrointestinal Gastrointestingal: Reports: abdominal pain, black, tarry stools, nausea. Denies: vomiting Physical Exam - General General appearance: alert, in no apparent distress Comment: frequent cough - Head Head exam: atraumatic, normocephalic - Eye Eye exam: Present: normal appearance, EOMI - ENT ENT exam: Present: mucous membranes moist - Neck Neck exam: Present: normal inspection, trachea midline - Chest Chest inspection: Present: normal inspection, symmetric chest wall rise - Respiratory Respiratory exam: Present: other (bilateral rhonchi) - Cardiovascular Cardiovascular exam: Present: regular rate, normal rhythm, normal heart sounds - Abdominal Exam Abdominal exam: Present: soft, tenderness Abdominal tenderness: Present: diffuse, moderate - Extremities Exam Extremities exam: Present: normal inspection - Neurological Exam Neurological exam: Present: alert, oriented X3 - Psychiatric Psychiatric exam: Present: normal affect, normal mood - Skin Skin exam: Present: warm, dry
[2019-09-15 01:34] LABS: Microscopic, Urine URINE MICROSCOPIC (MICROSCOPIC)
[2019-09-15 01:37] LABS: Appearance,Urine CLEAR (Clear); Bilirubin,Urine Negative (Negative); Blood, Urine 2+ (Negative); Color,Urine YELLOW (Yellow); Glucose,Urine (UA) Negative (Negative); Ketones,Urine TRACE (Negative); Leukocyte Esterase,Urine Negative (Negative); Protein,Urine TRACE (Negative); Specific Gravity, Urine >= 1.030 (1.005-1.030); Urobilinogen,Urine 0.2 EU/dl (0.2)
[2019-09-15 01:44] LABS: Amorphous Sediment,Urine Trace /lpf; Mucus,Urine Trace /lpf; RBC,Urine 20-50 #/hpf (0-3); WBC,Urine Occasional #/hpf (0-3)
[2019-09-15 01:55] LABS: Basophils % 0.2 % (0.1-2.0); Eosinophils % 0.1 % (0.1-12.0); Hematocrit 37.3 % (42.0-52.0); Hemoglobin 12.1 g/dL (14.1-18.0); Lymphocytes % 22.1 % (10-50); Mean Corpuscular HGB Conc 32.3 g/dL (31.8-35.4); Mean Corpuscular Volume 97.5 fl (80-94); Mean Platelet Volume 7.4 fl (7.4-10.4); Monocytes # 0.5 K/mm3 (0.1-1.0); Monocytes % 3.4 % (1.7-9.3); Neutrophils # 10.1 K/mm3 (1.8-7.8); Neutrophils % 74.2 % (37.0-80.0); Platelet Count 327 K/mm3 (142-424); Red Blood Count 3.83 M/mm3 (4.60-6.20); Red Cell Distribution Width 13.5 % (11.5-17.5); White Blood Count 13.6 K/mm3 (4.8-10.8)
[2019-09-15 02:00] LABS: Albumin/Globulin Ratio 1.5 (1.1-1.8); Calcium 9.4 mg/dl (8.4-10.2); Globulin 2.7 g/dL (1.3-3.2); Total Protein,Serum 6.7 g/dl (6.3-8.2)
[2019-09-15 02:01] LABS: Activated Partial Thrombo Time 25.5 seconds (23.6-34.0); Bilirubin,Total 0.1 mg/dl (0.2-1.3); INR 0.97 (0.9-1.1); Prothrombin Time 10.1 seconds (9.4-11.8)
--- NOTE | 2019-09-15 07:25 | Pharmacy Consult Notes ---
[facility] Pharmacy VTE Monitoring - Patient Demographics Admission date: 09/15/19 Report Date: 09/15/19 Time: 07:25 Allergies/Adverse Reactions: Patient Allergies aspirin [ASPIRIN] Allergy (Unknown, Verified 09/15/19 02:32) piperacillin [From Zosyn] Allergy (Verified 09/15/19 02:32) tazobactam [From Zosyn] Allergy (Verified 09/15/19 02:32) Height: 1.73 m Weight: 69.4 kg Patient Problems: Current Active Problems Upper GI bleed (Acute) Acute bronchitis (Acute) - VTE Risk Labs: VTE Related Lab Results Hgb 12.1 g/dL (14.1-18.0) L 09/15/19 01:25 Hct 37.3 % (42.0-52.0) L 09/15/19 01:25 Plt Count 327 K/mm3 (142-424) 09/15/19 01:25 PT 10.1 seconds (9.4-11.8) 09/15/19 01:25 INR 0.97 (0.9-1.1) 09/15/19 01:25 APTT 25.5 seconds (23.6-34.0) 09/15/19 01:25 BUN 31 mg/dl (9-20) H 09/15/19 01:25 Creatinine 0.80 mg/dl (0.66-1.25) 09/15/19 01:25 Estimated Creat Clear 117 mL/min (50-200) 09/15/19 01:25 VTE Score: 10 VTE Risk Level: Moderate Risk - Prophylaxis VTE Prophylaxis Ordered?: Yes Types of VTE Prophylaxis: TEDS Knee High Location of Applied Device: Bilateral Lower Extremeties - VTE Diagnosis Confirmed Treatment or plan recommended: Continue Current Treatment
[2019-09-15 07:31] LABS: Basophils % 0.3 % (0.1-2.0)
[2019-09-15 07:53] LABS: Eosinophils % 0.4 % (0.1-12.0); Lymphocytes # 3.4 K/mm3 (0.7-4.5); Lymphocytes % 35.5 % (10-50); Mean Corpuscular HGB Conc 33.4 g/dL (31.8-35.4); Mean Platelet Volume 7.7 fl (7.4-10.4); Monocytes # 0.4 K/mm3 (0.1-1.0); Monocytes % 4.5 % (1.7-9.3); Neutrophils # 5.7 K/mm3 (1.8-7.8); Neutrophils % 59.3 % (37.0-80.0); Platelet Count 228 K/mm3 (142-424); Red Blood Count 2.88 M/mm3 (4.60-6.20); Red Cell Distribution Width 13.2 % (11.5-17.5); White Blood Count 9.5 K/mm3 (4.8-10.8)
[2019-09-15 07:55] LABS: Hemoglobin 9.3 g/dL (14.1-18.0)
--- NOTE | 2019-09-15 08:41 | History & Physical Report ---
*Admission Date: 09/15/19 <Latonya Reeves - 09/15/19 09:02> *Chief complaint: GI bleeding <Latonya Reeves - 09/15/19 09:02> *History of present illness: Mr. Dave is a 43-year-old male with a history of heart disease, asthma, bronchitis, GERD, drug dependence on Suboxone, anxiety, chronic pain, tobacco use disorder who presented to [facility] last night after having 5 bloody stools at home. He describes each stool of large quantities. After arrival to the emergency room he had 2 additional bloody stools of large amount. He describes his abdomen feeling "funny" for the last few days. He has had some nausea and vomiting but mostly at the end of coughing spasms and no hematemesis. He has not been eating as well but he states he has been drinking fluids well. He notes that he takes 6-8 ibuprofens daily for back and neck pain, and headache. Patient has also had a productive cough for over a week. He was seen in the [facility], was told he had pneumonia and was placed on an antibiotic and steroid and has been using inhalers. He states he did not improve very much. He describes having a fever along with the cough and some shortness of breath. Patient has continued to smoke. He has no sick contacts. In the emergency room he was started on a PPI, Rocephin, and Zithromax. He had a CT of the abdomen and pelvis with pending results. Chest x-ray did show a pulmonary nodule. Diarrhea panel was negative except positive for occult blood. He did have a SARSCOV2 lab work drawn. Patient arrived to the room about 4:30 AM. At the time of this exam patient he has had no further stools. Presently his stomach is not bothering him. He denies nausea. He denies shortness of breath, chest pain, but continues with a productive cough. <Latonya Reeves - 09/15/19 09:02> [facility] History Medical History: Reports:: Anxiety, Asthma, Atherosclerotic Heart Disease, Coronary Artery Disease, Depression, Gastroesophageal Reflux Disease(GERD), Gastrointestinal Bleed, Lung Disease, Kidney Stones, Palpitations Denies:: Cancer, Diabetes Mellitus Type 1, Diabetes Mellitus Type 2, Home Oxygen, MRSA, Seizures <Latonya Reeves 09/15/19 09:02> *Have you ever received a pneumonia vaccine?: No <ReevesLatonya - 09/15/19 09:02> *Have you received a flu vaccine this season?: No <Reeves,Latonya 09/15/19 09:02> Other Medical History: Reports: Other <LalaLatonya 09/15/19 09:02> Laterality Cases: Right: ACL Repair, Bilateral: Arthroscopy Knee, Other <Latonya Reeves 09/15/19 09:02> Other Surgeries: Yes: Appendectomy, EGD, Other <Latonya Reeves 09/15/19 09:02> Amputation: No <Latonya Reeves 09/15/19 09:02> Fractures: No <Latonya Reeves 09/15/19 09:02> - *Social History Smoking Status: Current every day smoker <Latonya Reeves 09/15/19 09:02> Tobacco Type: cigarettes <Latonya Reeves 09/15/19 09:02> # Packs/Day (cigarettes): 1 <LalaLatonya 09/15/19 09:02> Alcohol Intake: current <Latonya Reeves 09/15/19 09:02> Alcohol Intake Frequency:: a few times a week <Latonya Reeves 09/15/19 09:02> Substance Use Type: opiates <ReevesLatonya blackburn 09/15/19 09:02> *Occupational Status:: unemployed <Latonya Reeves 09/15/19 09:02> Housing: house <Latonya Reeves 09/15/19 09:02> Household Members: significant other <ReevesLatonya blackburn 09/15/19 09:02> *Travel in the last 8 weeks: None <Latonya Reeves 09/15/19 09:02> Family Hx:: Coronary Artery Disease, Diabetes, Hyperlipidemia, Hypertension <Latonya Reeves 09/15/19 09:02> Review of Systems - Constitutional Reports fever(s), Reports headache(s) <Latonya Reeves 09/15/19 09:02> - Eyes Denies change in vision <Latonya Reeves 09/15/19 09:02> - ENT Denies ear pain, Denies sore throat <ReevesLatonya - 09/15/19 09:02> - *Cardiovascular Reports shortness of breath, Reports fast heart rate, Denies chest pain, Denies leg swelling [facility]/15/[facility] 09:02> - *Respiratory Reports change in phlegm color, Reports chest congestion, Reports cough, Reports wheezing, Den[facility] coughing up blood <[facility] 09[facility]02> - *Gastrointestinal Reports abdominal pain, Reports change in bowel habits, Reports change in stools, Reports cramping, Reports loose stools, Reports heartburn, Reports bright, red blood in stools, Reports nausea, Reports vomiting, Denies belching, Denies bloating, Denies coffee ground vomit, Denies constipation, Denies vomiting blood, Denies black, tarry stools <[facility] 09/15/19 09:02> - *Genitourinary Denies difficulty urinating <[facility] 09/15/19 09:02> - *Musculoskeletal Reports abnormal walking, Reports joint pain, Reports muscle weakness [facility] 09/15[facility] 09:02> - *Neurologic Reports abnormal walking, Reports abnormal speech, Reports headache(s), Reports fainting, Reports weakness, Denies seizure-like activity, Denies seizure-like activity <[facility] 09/15/19 09:02> - Psychiatric Reports anxiety, Reports change in appetite, Reports depression <[facility] 09/15/19 09:02> Meds Home Medications Medication Instructions Recorded Confirmed Type Buprenorphine HCl/Naloxone HCl 2 film SL DAILY 03/17/18 09/15/19 History [Suboxone 8 mg-2 mg Sl Film] RX: Albuterol Sulfate [Proair Hfa 1 puff IH Q6HP PRN 03/17/18 09/15/19 History 90mcg/puff Inh] RX: diazePAM [Valium 10mg tablet] 10 mg PO DAILY 09/15/19 09/15/19 History RX: levoFLOXacin [Levofloxacin 750 mg PO DAILY 09/15/19 09/15/19 History 750MG Tablet] RX: predniSONE [Deltasone 20mg 20 mg PO BID 09/15/19 09/15/19 History tablet] <[place],Damion - 09/15/19 09:27> Allergies Allergy/AdvReac Type Severity Reaction Status Date / Time aspirin [ASPIRIN] Allergy Unknown Verified 09/15/19 02:32 piperacillin [From Zosyn] Allergy Verified 09/15/19 02:32 tazobactam [From Zosyn] Allergy Verified 09/15/19 02:32 <Damion Medina - 09/15/19 09:27> Exam Vital signs and Labs for Last 24 Hours: Temp Pulse Resp BP Pulse Ox 97.3 F L 58 L 18 115/70 93 L 09/15/19 08:00 09/15/19 08:00 09/15/19 08:00 09/15/19 08:00 09/15/19 08:00 Laboratory Results - last 24 hr 09/15/19 01:20: Urine Color Yellow, Urine Appearance Clear, Urine pH 6.0, Ur Specific [place] >= 1.030, Urine Protein Trace, Urine Glucose (UA) Negative, Urine Ketones Trace, Urine Blood 2+, Urine Nitrate Negative, Urine Bilirubin Negative, Urine Urobilinogen 0.2, Ur Leukocyte Esterase Negative, Urine RBC 20- 50, Urine WBC Occasional, Amorphous Sediment Trace, Urine Mucus Trace 09/15/19 01:20: Stool Occult Blood Positive A 09/15/19 01:20: Stl Aeromonas (PCR) Not detected, Stl C. cayetanensis PCR Not detected, Stool Rotavirus (PCR) Not detected, Stl Adenov F 40/41 PCR Not detected, Stool Astrovirus (PCR) Not detected, Stool Campylobacter PCR Not detected, Stl C.difficile Tox PCR Not detected, Stool Cryptosporidium PCR Not detected, Stl E.coli Shiga Tox PCR Not detected, Stool E coli O157 PCR Not detected, Stl Enterotoxigenic E PCR Not detected, Stool EPEC (PCR) Not detected, Stool EAEC (PCR) Not detected, Stl E. histolytica PCR Not detected, Stool Giardia Lamblia PCR Not detected, Stool Salmonella PCR Not detected, Stool S apovirus (PCR) Not detected, Stl P. shigelloides PCR Not detected, Stl Shigella/EIEC PCR Not detected, St Y.enterocolitica PCR Not detected, Stool Vibrio (PCR) Not detected, Stl Vibrio cholerae PCR Not detected, Stl Norovirus GI/GII PCR Not detected 09/15/19 01:25: WBC 13.6 H, RBC 3.83 L, Hgb 12.1 L, Hct 37.3 L, MCV 97.5 H, MCH 31.5 H, MCHC 32.3, RDW 13.5, Plt Count 327, MPV 7.4, Neut % (Auto) 74.2, Lymph % (Auto) 22.1, [place] % (Auto) 3.4, Eos % (Auto) 0.1, Baso % (Auto) 0.2, Neut # (Auto) 10.1 H, Lymph # (Auto) 3.0, [place] # (Auto) 0.5, Eos # (Auto) 0.0, Baso # (Auto) 0.0 09/15/19 01:25: Sodium 137, Potassium 4.0, Chloride 103, Carbon Dioxide 26, Anion Gap 12.0, BUN 31 H, Creatinine 0.80, Estimated Creat Clear 117, Estimated GFR 105, Est GFR ( Amer) 127, Glucose 99, Calcium 9.4, Total Bilirubin 0.1 L, AST 23, ALT 8 L, Alkaline Phosphatase 57, Total Protein 6.7, Albumin 4.0, Globulin 2.7, Albumin/Globulin Ratio 1.5 09/15/19 01:25: PT 10.1, INR 0.97, APTT 25.5 09/15/19 01:25: Lipase 11 L 09/15/19 02:20: Lactate 1.6 09/15/19 02:25: Influenza Type A Ag Negative, Influenza Type B Ag Negative 09/15/19 02:25: Group A Strep Rapid Negative 09/15/19 03:10: Blood Type O Positive, Antibody Screen Negative 09/15/19 06:30: WBC 9.5 D, RBC 2.88 L, Hgb 9.3 L D, Hct 28.0 L, MCV 97.0 H, MCH 32.4 H, MCHC 33.4, RDW 13.2, Plt Count 228 D, MPV 7.7, Neut % (Auto) 59.3, Lymph % (Auto) 35.5, [place] % (Auto) 4.5, Eos % (Auto) 0.4, Baso % (Auto) 0.3, Neut # (Auto) 5.7, Lymph # (Auto) 3.4, [place] # (Auto) 0.4, Eos # (Auto) 0.0, Baso # (Auto) 0.0 <Damion Medina - 09/15/19 09:27> Temp Pulse Resp BP Pulse Ox 97.5 F L 71 20 121/70 97 09/15/19 04:25 09/15/19 04:25 09/15/19 04:25 09/15/19 04:25 09/15/19 04:45 Laboratory Results - last 24 hr 09/15/19 01:20: Urine Color Yellow, Urine Appearance Clear, Urine pH 6.0, Ur Specific [place] >= 1.030, Urine Protein Trace, Urine Glucose (UA) Negative, Urine Ketones Trace, Urine Blood 2+, Urine Nitrate Negative, Urine Bilirubin Negative, Urine Urobilinogen 0.2, Ur Leukocyte Esterase Negative, Urine RBC 20- 50, Urine WBC Occasional, Amorphous Sediment Trace, Urine Mucus Trace 09/15/19 01:20: Stool Occult Blood Positive A 09/15/19 01:20: Stl Aeromonas (PCR) Not detected, Stl C. cayetanensis PCR Not detected, Stool Rotavirus (PCR) Not detected, Stl Adenov F 40/41 PCR Not d etected, Stool Astrovirus (PCR) Not detected, Stool Campylobacter PCR Not detected, Stl C.difficile Tox PCR Not detected, Stool Cryptosporidium PCR Not detected, Stl E.coli Shiga Tox PCR Not detected, Stool E coli O157 PCR Not detected, Stl Enterotoxigenic E PCR Not detected, Stool EPEC (PCR) Not detected, Stool EAEC (PCR) Not detected, Stl E. histolytica PCR Not detected, Stool Giardia Lamblia PCR Not detected, Stool Salmonella PCR Not detected, Stool Sapovirus (PCR) Not detected, Stl P. shigelloides PCR Not detected, Stl Shigella/EIEC PCR Not detected, St Y.enterocolitica PCR Not detected, Stool Vibrio (PCR) Not detected, Stl Vibrio cholerae PCR Not detected, Stl Norovirus GI/GII PCR Not detected 09/15/19 01:25: WBC 13.6 H, RBC 3.83 L, Hgb 12.1 L, Hct 37.3 L, MCV 97.5 H, MCH 31.5 H, MCHC 32.3, RDW 13.5, Plt Count 327, MPV 7.4, Neut % (Auto) 74.2, Lymph % (Auto) 22.1, [place] % (Auto) 3.4, Eos % (Auto) 0.1, Baso % (Auto) 0.2, Neut # (Auto) 10.1 H, Lymph # (Auto) 3.0, [place] # (Auto) 0.5, Eos # (Auto) 0.0, Baso # ( Auto) 0.0 09/15/19 01:25: Sodium 137, Potassium 4.0, Chloride 103, Carbon Dioxide 26, Anion Gap 12.0, BUN 31 H, Creatinine 0.80, Estimated Creat Clear 117, Estimated GFR 105, Est GFR ( Amer) 127, Glucose 99, Calcium 9.4, Total Bilirubin 0.1 L, AST 23, ALT 8 L, Alkaline Phosphatase 57, Total Protein 6.7, Albumin 4.0, Globulin 2.7, Albumin/Globulin Ratio 1.5 09/15/19 01:25: PT 10.1, INR 0.97, APTT 25.5 09/15/19 01:25: Lipase 11 L 09/15/19 02:20: Lactate 1.6 09/15/19 02:25: Influenza Type A Ag Negative, Influenza Type B Ag Negative 09/15/19 02:25: Group A Strep Rapid Negative 09/15/19 03:10: Blood Type O Positive, Antibody Screen Negative 09/15/19 06:30: WBC 9.5 D, RBC 2.88 L, Hgb 9.3 L D, Hct 28.0 L, MCV 97.0 H, MCH 32.4 H, MCHC 33.4, RDW 13.2, Plt Count 228 D, MPV 7.7, Neut % (Auto) 59.3, Lymph % (Auto) 35.5, [place] % (Auto) 4.5, Eos % (Auto) 0.4, Baso % (Auto) 0.3, Neut # (Auto) 5.7, Lymph # (Auto) 3.4, [place] # (Auto) 0.4, Eos # (Auto) 0.0, Baso # (Auto) 0.0 <Latonya Reeves - 09/15/19 09:02> I & O for Last 24 hours: Intake & Output 09/12/19 09/13/19 09/14/19 09/15/19 23:59 23:59 23:59 23:59 Weight 153 lb <Damion Medina 09/15/19 09:27> Intake & Output 09/12/19 09/13/19 09/14/19 09/15/19 11:59 11:59 11:59 11:59 Weight 153 lb <Latonya Reeves 09/15/19 09:02> Radiology Reports for the Last 24 Hours: 09/15/2019 chest x-ray IMPRESSION: 1. Left perihilar nodule. Recommend CT chest with contrast for further evaluation. 2. Otherwise negative <LalaLatonya 09/15/19 09:02> - Constitutional no acute distress <ReevesLatonya 09/15/19 09:02> Comments: Conversant <Latonya Reeves 09/15/19 09:02> - *Routine HEENT Exam Head: Present: normocephalic, atraumatic <ReevesLatonya 09/15/19 09:02> Eye: Present: PERRL. Absent: conjunctival icterus, scleral injection <Latonya Reeves 09/15/19 09:02> ENT: Present: mucous membranes moist, oropharynx clear <Latonya Reeves 09/15/19 09:02> - *Routine Respiratory Exam Absent: respiratory distress <Latonya Reeves 09/15/19 09:02> Comments: Bilateral rhonchi and wheezing. Congested cough <ReevesLatonya 09/15/19 09:02> - *Routine Cardiovascular Exam Present: RRR <Latonya Reeves 09/15/19 09:02> - *Routine Abdominal Exam Present: soft, normoactive bowel sounds, tenderness (Lower abdomen). Absent: distended <ReevesLatonya 09/15/19 09:02> - *Routine Extremities Exam Present: pulses intact, tenderness (Left foot). Absent: edema, calf tenderness <ReevesLatonya 09/15/19 09:02> - *Routine Neurological Exam Present: alert, oriented X3 <LalaLatonya 09/15/19 09:02> Slow speech <ReevesLatonya 09/15/19 09:02> Assessment and Plan (1) GI bleed due to NSAIDs Current visit: Yes Status: Acute Category: Medical Code(s): K92.2 - Gastrointestinal hemorrhage, unspecified; T39.395A - Adverse effect of other nonsteroidal anti-inflammatory drugs [NSAID], initial encounter (2) Acute bronchitis Current visit: Yes Status: Acute Qualifiers: Bronchitis organism: unspecified organism Qualified Code(s): J20.9 - Acute bronchitis, unspecified Category: Medical Code(s): J20.9 - Acute bronchitis, unspecified (3) Tobacco abuse Current visit: No Status: Chronic Category: Medical Code(s): Z72.0 - Tobacco use (4) Anxiety Current visit: Yes Status: Chronic Category: Medical Code(s): F41.9 - A nxiety disorder, unspecified (5) Chronic pain Current visit: Yes Status: Chronic Category: Medical Code(s): G89.29 - Other chronic pain <Damion Medina - 09/15/19 09:27> (1) GI bleed due to NSAIDs Current visit: Yes Status: Acute Category: Medical Code(s): K92.2 - Gastrointestinal hemorrhage, unspecified; T39.395A - Adverse effect of other nonsteroidal anti-inflammatory drugs [NSAID], initial encounter (2) Acute bronchitis Current visit: Yes Status: Acute Qualifiers: Bronchitis organism: unspecified organism Qualified Code(s): J20.9 - Acute bronchitis, unspecified Category: Medical Code(s): J20.9 - Acute bronchitis, unspecified (3) Tobacco abuse Current visit: No Status: Chronic Category: Medical Code(s): Z72.0 - Tobacco use (4) Anxiety Current visit: Yes Status: Chronic Category: Medical Code(s): F41.9 - Anxiety disorder, unspecified (5) Chronic pain Current visit: Yes Status: Chronic Category: Medical Code(s): G89.29 - Other chronic pain <Latonya Reeves - 09/15/19 08:36> - Assessment and plan all Dx Assessment and Plan for all problems:: Saw patient, agree with above note. <Damion Medina - 09/15/19 09:27> Surgery will see patient today. Will monitor H&H. Continue with antibiotics and duo nebs. PPI has been initiated. <Latonya Reeves - 09/15/19 09:02>
--- NOTE | 2019-09-15 10:33 | Consult Report ---
*Admission Date: 09/15/19 *Reason for consult:: Upper GI bleed *History of present illness: The following is [facility] from [facility] admission history and physical: Mr. Dave is a 43-year-old male with a history of heart disease, asthma, bronchitis, GERD, drug dependence on Suboxone, anxiety, chronic pain, tobacco use disorder who presented to [facility] last night after having 5 bloody stools at home. He describes each stool of large quantities. After arrival to the emergency room he had 2 additional bloody stools of large amount. He describes his abdomen feeling "funny" for the last few days. He has had some nausea and vomiting but mostly at the end of coughing spasms and no hematemesis. He has not been eating as well but he states he has been drinking fluids well. He notes that he takes 6-8 ibuprofens daily for back and neck pain, and headache. Patient has also had a productive cough for over a week. He was seen in the [place] [facility], was told he had pneumonia and was placed on an antibiotic and steroid and has been using inhalers. He states he did not improve very much. He describes having a fever along with the cough and some shortness of breath. Patient has continued to smoke. He has no sick contacts. In the emergency room he was started on a PPI, Rocephin, and Zithromax. He had a CT of the abdomen and pelvis with pending results. Chest x-ray did show a pulmonary nodule. Diarrhea panel was negative except positive for occult blood. He did have a SARSCOV2 lab work drawn. Patient arrived to the room about 4:30 AM. At the time of this exam patient he has had no further stools. Presently his stomach is not bothering him. He d enies nausea. He denies shortness of breath, chest pain, but continues with a productive cough. Review of Systems - Review of Systems Review of systems:: pertinent systems reviewed and negative unless documented below - Constitutional Reports fever(s) - *Cardiovascular Reports chest pain - *Respiratory Reports cough - *Gastrointestinal Reports abdominal pain, Reports bright, red blood in stools - *Musculoskeletal Reports joint pain, Reports back pain - *Neurologic Reports abnormal walking, Reports abnormal speech, Reports headache(s), Reports fainting, Reports weakness, Denies seizure-like activity, Denies seizure-like activity [facility] History Medical History: Reports:: Anxiety, Asthma, Atherosclerotic Heart Disease, Coronary Artery Disease, Depression, Gastroesophageal Reflux Disease(GERD), Gastrointestinal Bleed, Lung Disease, Kidney Stones, Palpitations Denies:: Cancer, Diabetes Mellitus Type 1, Diabetes Mellitus Type 2, Home Oxygen, MRSA, Seizures *Have you ever received a pneumonia vaccine?: No *Have you received a flu vaccine this season?: No Other Medical History: Reports: Other Laterality Cases: Right: ACL Repair, Bilateral: Arthroscopy Knee, Other Other Surgeries: Yes: Appendectomy, EGD, Other Amputation: No Fractures: No - *Social History Smoking Status: Current every day smoker Tobacco Type: cigarettes # Packs/Day (cigarettes): 1 Alcohol Intake: current Alcohol Intake Frequency:: a few times a week Substance Use Type: opiates *Occupational Status:: unemployed Housing: house Household Members: significant other *Travel in the last 8 weeks: None - Psychiatric History Pschychiatric History:: Reports:: Anxiety, Depression Family Hx:: Coronary Artery Disease, Diabetes, Hyperlipidemia, Hypertension Meds Home Medications Medication Instructions Recorded Confirmed Type Albuterol Sulfate [Proair Hfa 1 puff IH Q6HP PRN 03/17/18 09/15/19 History 90mcg/puff Inh] Buprenorphine HCl/Naloxone HCl 2 film SL DAILY 03/17/18 09/15/19 History [Suboxone 8 mg-2 mg Sl Film] diazePAM [Valium 10mg tablet] 10 mg PO DAILY 09/15/19 09/15/19 History levoFLOXacin [Levofloxacin 750MG 750 mg PO DAILY 09/15/19 09/15/19 History Tablet] predniSONE [Deltasone 20mg 20 mg PO BID 09/15/19 09/15/19 History tablet] Allergies Allergy/AdvReac Type Severity Reaction Status Date / Time aspirin [ASPIRIN] Allergy Unknown Verified 09/15/19 02:32 piperacillin [From Zosyn] Allergy Verified 09/15/19 02:32 tazobactam [From Zosyn] Allergy Verified 09/15/19 02:32 Exam Vital signs and Labs for Last 24 Hours: Temp Pulse Resp BP Pulse Ox 97.3 F L 58 L 18 115/70 93 L 09/15/19 08:00 09/15/19 08:00 09/15/19 08:00 09/15/19 08:00 09/15/19 08:00 Laboratory Results - last 24 hr 09/15/19 01:20: Urine Color Yellow, Urine Appearance Clear, Urine pH 6.0, Ur Specific [place] >= 1.030, Urine Protein Trace, Urine Glucose (UA) Negative, Urine Ketones Trace, Urine Blood 2+, Urine Nitrate Negative, Urine Bilirubin Negative, Urine Urobilinogen 0.2, Ur Leukocyte Esterase Negative, Urine RBC 20- 50, Urine WBC Occasional, Amorphous Sediment Trace, Urine Mucus Trace 09/15/19 01:20: Stool Occult Blood Positive A 09/15/19 01:20: Stl Aeromonas (PCR) Not detected, Stl C. cayetanensis PCR Not detected, Stool Rotavirus (PCR) Not detected, Stl Adenov F 40/41 PCR Not detected, Stool Astrovirus (PCR) Not detected, Stool Campylobacter PCR Not detected, Stl C.difficile Tox PCR Not detected, Stool Cryptosporidium PCR Not detected, Stl E.coli Shiga Tox PCR Not detected, Stool E coli O157 PCR Not detected, Stl Enterotoxigenic E PCR Not detected, Stool EPEC (PCR) Not detected, Stool EAEC (PCR) Not detected, Stl E. histolytica PCR Not detected, Stool Giardia Lamblia PCR Not detected, Stool Salmonella PCR Not detected, Stool Sapovirus (PCR) Not detected, Stl P. shigelloides PCR Not detected, Stl Shigella/EIEC PCR Not detected, St Y.enterocolitica PCR Not detected, Stool Vibrio (PCR) Not detected, Stl Vibrio cholerae PCR Not detected, Stl Norovirus GI/GII PCR Not detected 09/15/19 01:25: WBC 13.6 H, RBC 3.83 L, Hgb 12.1 L, Hct 37.3 L, MCV 97.5 H, MCH 31.5 H, MCHC 32.3, RDW 13.5, Plt Count 327, MPV 7.4, Neut % (Auto) 74.2, Lymph % (Auto) 22.1, [place] % (Auto) 3.4, Eos % (Auto) 0.1, Baso % (Auto) 0.2, Neut # (Auto) 10.1 H, Lymph # (Auto) 3.0, [place] # (Auto) 0.5, Eos # (Auto) 0.0, Baso # (Auto) 0.0 09/15/19 01:25: Sodium 137, Potassium 4.0, Chloride 103, Carbon Dioxide 26, Anion Gap 12.0, BUN 31 H, Creatinine 0.80, Estimated Creat Clear 117, Estimated GFR 105, Est GFR ( Amer) 127, Glucose 99, Calcium 9.4, Total Bilirubin 0.1 L, AST 23, ALT 8 L, Alkaline Phosphatase 57, Total Protein 6.7, Albumin 4.0, Globulin 2.7, Albumin/Globulin Ratio 1.5 09/15/19 01:25: PT 10.1, INR 0.97, APTT 25.5 09/15/19 01:25: Lipase 11 L 09/15/19 02:20: Lactate 1.6 09/15/19 02:25: Influenza Type A Ag Negative, Influenza Type B Ag Negative 09/15/19 02:25: Group A Strep Rapid Negative 09/15/19 03:10: Blood Type O Positive, Antibody Screen Negative 09/15/19 06:30: WBC 9.5 D, RBC 2.88 L, Hgb 9.3 L D, Hct 28.0 L, MCV 97.0 H, MCH 32.4 H, MCHC 33.4, RDW 13.2, Plt Count 228 D, MPV 7.7, Neut % (Auto) 59.3, Lymph % (Auto) 35.5, [place] % (Auto) 4.5, Eos % (Auto) 0.4, Baso % (Auto) 0.3, Neut # (Auto) 5.7, Lymph # (Auto) 3.4, [place] # (Auto) 0.4, Eos # (Auto) 0.0, Baso # (Auto) 0.0 I & O for Last 24 hours: Intake & Output 09/12/19 09/13/19 09/14/19 09/15/19 11:59 11:59 11:59 11:59 Weight 153 lb Narrative: In general patient appears older than stated age. He appears to have some chronic illness. He appears rather anxious and tremulous. His abdomen is soft and nontender. Results - Labs 09/15/19 06:30 09/15/19 01:25 Laboratory Results - last 24 hr 09/15/19 01:20: Urine Color Yellow, Urine Appearance Clear, Urine pH 6.0, Ur Specific [place] >= 1.030, Urine Protein Trace, Urine Glucose (UA) Negative, Urine Ketones Trace, Urine Blood 2+, Urine Nitrate Negative, Urine Bilirubin Neg ative, Urine Urobilinogen 0.2, Ur Leukocyte Esterase Negative, Urine RBC 20-50, Urine WBC Occasional, Amorphous Sediment Trace, Urine Mucus Trace 09/15/19 01:20: Stool Occult Blood Positive A 09/15/19 01:20: Stl Aeromonas (PCR) Not detected, Stl C. cayetanensis PCR Not detected, Stool Rotavirus (PCR) Not detected, Stl Adenov F 40/41 PCR Not detected, Stool Astrovirus (PCR) Not detected, Stool Campylobacter PCR Not detected, Stl C.difficile Tox PCR Not detected, Stool Cryptosporidium PCR Not detected, Stl E.coli Shiga Tox PCR Not detected, Stool E coli O157 PCR Not dete cted, Stl Enterotoxigenic E PCR Not detected, Stool EPEC (PCR) Not detected, Stool EAEC (PCR) Not detected, Stl E. histolytica PCR Not detected, Stool Giardia Lamblia PCR Not detected, Stool Salmonella PCR Not detected, Stool Sapovirus (PCR) Not detected, Stl P. shigelloides PCR Not detected, Stl Sh igella/EIEC PCR Not detected, St Y.enterocolitica PCR Not detected, Stool Vibrio (PCR) Not detected, Stl Vibrio cholerae PCR Not detected, Stl Norovirus GI/GII PCR Not detected 09/15/19 01:25: WBC 13.6 H, RBC 3.83 L, Hgb 12.1 L, Hct 37.3 L, MCV 97.5 H, MCH 31.5 H, MCHC 32.3, RDW 13.5, Plt Count 327, MPV 7.4, Neut % (Auto) 74.2, Lymph % (Auto) 22.1, [place] % (Auto) 3.4, Eos % (Auto) 0.1, Baso % (Auto) 0.2, Neut # (Auto) 10.1 H, Lymph # (Auto) 3.0, [place] # (Auto) 0.5, Eos # (Auto) 0.0, Baso # (Auto) 0.0 09/15/19 01:25: Sodium 137, Potassium 4.0, Chloride 103, Carbon Dioxide 26, Anion Gap 12.0, BUN 31 H, Creatinine 0.80, Estimated Creat Clear 117, Estimated GFR 105, Est GFR ( Amer) 127, Glucose 99, Calcium 9.4, Total Bilirubin 0.1 L, AST 23, ALT 8 L, Alkaline Phosphatase 57, Total Protein 6.7, Albumin 4.0, Globulin 2.7, Albumin/Globulin Ratio 1.5 09/15/19 01:25: PT 10.1, INR 0.97, APTT 25.5 09/15/19 01:25: Lipase 11 L 09/15/19 02:20: Lactate 1.6 09/15/19 02:25: Influenza Type A Ag Negative, Influenza Type B Ag Negative 09/15/19 02:25: Group A Strep Rapid Negative 09/15/19 03:10: Blood Type O Positive, Antibody Screen Negative 09/15/19 06:30: WBC 9.5 D, RBC 2.88 L, Hgb 9.3 L D, Hct 28.0 L, MCV 97.0 H, MCH 32.4 H, MCHC 33.4, RDW 13.2, Plt Count 228 D, MPV 7.7, Neut % (Auto) 59.3, Lymph % (Auto) 35.5, [place] % (Auto) 4.5, Eos % (Auto) 0.4, Baso % (Auto) 0.3, Neut # (Auto) 5.7, Lymph # (Auto) 3.4, [place] # (Auto) 0.4, Eos # (Auto) 0.0, Baso # (Auto) 0.0 Assessment and Plan (1) GI bleed due to NSAIDs Current visit: Yes Status: Acute Category: Medical Code(s): K92.2 - G astrointestinal hemorrhage, unspecified; T39.395A - Adverse effect of other nonsteroidal anti-inflammatory drugs [NSAID], initial encounter (2) Acute bronchitis Current visit: Yes Status: Acute Qualifiers: Bronchitis organism: unspecified organism Qualified Code(s): J20.9 - Acute bronchitis, unspecified Category: Medical Code(s): J20.9 - Acute bronchitis, unspecified (3) Tobacco abuse Current visit: No Status: Chronic Category: Medical Code(s): Z72.0 - Tobacco use (4) Anxiety Current visit: Yes Status: Chronic Category: Medical Code(s): F41.9 - Anxiety disorder, unspecified (5) Chronic pain Current visit: Yes Status: Chronic Category: Medical Code(s): G89.29 - Other chronic pain - Assessment and plan all Dx Assessment and Plan for all problems:: Patient has evidence of anemia secondary to upper GI blood loss. He does have a prior history of this and he believes that this was taken care of at [facility]. I do feel that upper endoscopy would be warranted. However, at this point I would not pursue this emergently. Plan to continue to monitor his H&H. If he continues to drop or show evidence of ongoing bleeding this may need to be expedited.
[2019-09-16 06:18] LABS: Basophils % 0.5 % (0.1-2.0); Eosinophils # 0.3 K/mm3 (0.0-0.4); Eosinophils % 3.4 % (0.1-12.0); Hematocrit 25.9 % (42.0-52.0); Mean Corpuscular Volume 99.9 fl (80-94); Mean Platelet Volume 7.4 fl (7.4-10.4); Monocytes # 0.3 K/mm3 (0.1-1.0); Monocytes % 3.9 % (1.7-9.3); Neutrophils # 4.3 K/mm3 (1.8-7.8); Neutrophils % 54.3 % (37.0-80.0); Platelet Count 230 K/mm3 (142-424); Red Cell Distribution Width 13.7 % (11.5-17.5); White Blood Count 7.9 K/mm3 (4.8-10.8)
[2019-09-16 06:33] LABS: Hemoglobin 8.3 g/dL (14.1-18.0)
[2019-09-16 07:02] LABS: Anion Gap 5.3 mEq/L (5-15)
--- NOTE | 2019-09-16 08:40 | Progress Note ---
Subjective Patient reports: no new complaints Narrative: Patient complains of some mid abdominal "soreness". He has not had any additional bowel movements or evidence of bleeding. Hemoglobin 8.3 this morning. He is n.p.o. this morning in case urgent upper endoscopy was indicated. Exam Vital signs and Labs for Last 24 Hours: Temp Pulse Resp BP Pulse Ox 97.6 F 69 19 126/82 96 09/16/19 03:37 09/16/19 03:37 09/16/19 03:37 09/16/19 03:37 09/16/19 03:37 Laboratory Results - last 24 hr 09/16/19 05:42: WBC 7.9, RBC 2.60 L, Hgb 8.3 L D, Hct 25.9 L, MCV 99.9 H, MCH 32.0 H, MCHC 32.0, RDW 13.7, Plt Count 230, MPV 7.4, Neut % (Auto) 54.3, Lymph % (Auto) 38.0, [place] % (Auto) 3.9, Eos % (Auto) 3.4, Baso % (Auto) 0.5, Neut # (Auto) 4.3, Lymph # (Auto) 3.0, [place] # (Auto) 0.3, Eos # (Auto) 0.3, Baso # (Auto) 0.0 09/16/19 05:42: Sodium 138, Potassium 4.3, Chloride 110 H, Carbon Dioxide 27, Anion Gap 5.3, BUN 20 D, Creatinine 0.70, Estimated Creat Clear 138, Estimated GFR 123, Est GFR ( Amer) 148, Glucose 85, Calcium 8.0 L D I & O for Last 24 hours: Intake & Output 09/13/19 09/14/19 09/15/19 09/16/19 11:59 11:59 11:59 11:59 Intake Total 4072 / 4072 Output Total 1025 / 1025 Balance 3047 / 3047 Weight 153 lb 160 lb - *Routine Abdominal Exam Present: soft Progress Note: A&P (1) GI bleed due to NSAIDs Status: Acute Current Visit: Yes (2) Acute bronchitis Status: Acute Current Visit: Yes (3) Tobacco abuse Status: Chronic Current Visit: No (4) Anxiety Status: Chronic Current Visit: Yes (5) Chronic pain Status: Chronic Current Visit: Yes Assessment and Plan for All Diagnoses:: Patient does have evidence of clinical upper GI blood loss. Clinically stable with mild diminishing hemoglobin hematocrit. Currently being treated for upper GI blood loss source. Will need upper endoscopy. No need for urgent upper endoscopy at this time as a therapeutic intervention.
--- NOTE | 2019-09-16 08:59 | Progress Note ---
Internal Medicine - PN: Subj *Date: 09/16/19 *Time: 08:56 Interval history: Patient with no new complaints. Still feels weak and has some epigastric abd pain. He has not had any bloody bowel movements in the past 24 hours. Exam Vital signs and Labs for Last 24 Hours: Temp Pulse Resp BP Pulse Ox 97.3 F L 72 20 110/68 98 09/16/19 08:43 09/16/19 08:43 09/16/19 08:43 09/16/19 08:43 09/16/19 08:43 Laboratory Results - last 24 hr 09/16/19 05:42: WBC 7.9, RBC 2.60 L, Hgb 8.3 L D, Hct 25.9 L, MCV 99.9 H, MCH 32.0 H, MCHC 32.0, RDW 13.7, Plt Count 230, MPV 7.4, Neut % (Auto) 54.3, Lymph % (Auto) 38.0, [place] % (Auto) 3.9, Eos % (Auto) 3.4, Baso % (Auto) 0.5, Neut # (Auto) 4.3, Lymph # (Auto) 3.0, [place] # (Auto) 0.3, Eos # (Auto) 0.3, Baso # (Auto) 0.0 09/16/19 05:42: Sodium 138, Potassium 4.3, Chloride 110 H, Carbon Dioxide 27, Anion Gap 5.3, BUN 20 D, Creatinine 0.70, Estimated Creat Clear 138, Estimated GFR 123, Est GFR ( Amer) 148, Glucose 85, Calcium 8.0 L D I & O for Last 24 hours: Intake & Output 09/13/19 09/14/19 09/15/19 09/16/19 23:59 23:59 23:59 23:59 Intake Total 2582 / 2582 1490 / 1490 Output Total 275 / 575 750 / 750 Balance 2306 740 / 740 Weight 153 lb 160 lb - Constitutional no acute distress - *Routine HEENT Exam Head: Present: normocephalic Eye: Present: EOMI, PERRL ENT: Present: mucous membranes moist - *Routine Neck Exam Present: supple. Absent: lymphadenopathy - *Routine Respiratory Exam Present: rhonchi (bilateral) - *Routine Cardiovascular Exam Present: RRR - *Routine Abdominal Exam Present: soft, normoactive bowel sounds, tenderness (epigastric) - *Routine Extremities Exam Absent: cyanosis, clubbing, edema - *Routine Skin Exam Present: warm. Absent: rash - *Routine Neurological Exam Present: alert, oriented X3 Assessment and Plan (1) GI bleed due to NSAIDs Current visit: Yes Status: Acute Category: Medical Code(s): K92.2 - Gastrointestinal hemorrhage, unspecified; T39.395A - Adverse effect of other nonsteroidal anti-inflammatory drugs [NSAID], initial encounter (2) Acute bronchitis Current visit: Yes Status: Acute Qualifiers: Bronchitis organism: unspecified organism Qualified Code(s): J20.9 - Acute bronchitis, unspecified Category: Medical Code(s): J20.9 - Acute bronchitis, unspecified (3) Tobacco abuse Current visit: No Status: Chronic Category: Medical Code(s): Z72.0 - Tobacco use (4) Anxiety Current visit: Yes Status: Chronic Category: Medical Code(s): F41.9 - Anxiety disorder, unspecified (5) Chronic pain Current visit: Yes Status: Chronic Category: Medical Code(s): G89.29 - Other chronic pain - Assessment and plan all Dx Assessment and Plan for all problems:: Plan to advance to full liquid diet today and monitor H/H, awaiting Covid-19 test results.
[2019-09-17 06:03] LABS: Basophils % 0.6 % (0.1-2.0); Eosinophils # 0.2 K/mm3 (0.0-0.4); Eosinophils % 4.3 % (0.1-12.0); Lymphocytes # 2.4 K/mm3 (0.7-4.5); Lymphocytes % 44.2 % (10-50); Mean Corpuscular HGB Conc 32.6 g/dL (31.8-35.4); Mean Corpuscular Volume 97.9 fl (80-94); Mean Platelet Volume 8.4 fl (7.4-10.4); Monocytes # 0.3 K/mm3 (0.1-1.0); Monocytes % 4.6 % (1.7-9.3); Neutrophils # 2.6 K/mm3 (1.8-7.8); Neutrophils % 46.3 % (37.0-80.0); Platelet Count 201 K/mm3 (142-424); Red Blood Count 1.84 M/mm3 (4.60-6.20); Red Cell Distribution Width 13.6 % (11.5-17.5); White Blood Count 5.5 K/mm3 (4.8-10.8)
[2019-09-17 06:10] LABS: Hemoglobin 5.9 g/dL (14.1-18.0)
[2019-09-17 06:22] LABS: Anion Gap 4.8 mEq/L (5-15)
[2019-09-17 06:23] LABS: Calcium 7.9 mg/dl (8.4-10.2)
--- NOTE | 2019-09-17 08:29 | Progress Note ---
Internal Medicine - PN: Subj *Date: 09/17/19 *Time: 08:27 Interval history: Patient feels weaker today. He has had a few bloody bowel movements this morning. Exam Vital signs and Labs for Last 24 Hours: Temp Pulse Resp BP Pulse Ox 98.1 F 75 14 110/60 98 09/17/19 04:00 09/17/19 04:00 09/17/19 04:00 09/17/19 04:00 09/17/19 04:00 Laboratory Results - last 24 hr 09/15/19 03:10: Blood Type O Positive, Antibody Screen Negative, Crossmatch (AHG) See Detail 09/17/19 05:55: WBC 5.5 D, RBC 1.84 L* D, Hgb 5.9 L*, Hct 18.0 L*, MCV 97.9 H, MCH 31.9 H, MCHC 32.6, RDW 13.6, Plt Count 201, MPV 8.4, Neut % (Auto) 46.3, Lymph % (Auto) 44.2, [place] % (Auto) 4.6, Eos % (Auto) 4.3, Baso % (Auto) 0.6, Neut # (Auto) 2.6, Lymph # (Auto) 2.4, [place] # (Auto) 0.3, Eos # (Auto) 0.2, Baso # (Auto) 0.0 09/17/19 05:55: Sodium 138, Potassium 3.8, Chloride 105, Carbon Dioxide 32 H, Anion Gap 4.8 L, BUN 22 H, Creatinine 0.60 L, Estimated Creat Clear 161, Estimated GFR 146, Est GFR ( Amer) 177, Glucose 88, Calcium 7.9 L 09/17/19 07:03: Blood Type Confirm O Positive I & O for Last 24 hours: Intake & Output 09/14/19 09/15/19 09/16/19 09/17/19 23:59 23:59 23:59 23:59 Intake Total 2582 / 2582 2895 / 2895 1695 / 1695 Output Total 275 / 575 2200 / 2200 2300 / 2300 Balance 2306 / 2006 695 / 695 -605 / -605 Weight 153 lb 160 lb 160 lb Microbiology Reports for the Last 24 Hours: Microbiology 09/15/19 02:20 Blood Blood Culture - Preliminary NO GROWTH AFTER 48 HOURS 09/15/19 02:20 Blood Blood Culture - Preliminary NO GROWTH AFTER 48 HOURS - Constitutional no acute distress - *Routine HEENT Exam Head: Present: normocephalic Eye: Present: EOMI ENT: Present: mucous membranes moist - *Routine Neck Exam Present: supple. Absent: lymphadenopathy - *Routine Respiratory Exam Present: rhonchi (few) - *Routine Cardiovascular Exam Present: RRR - *Routine Abdominal Exam Present: soft, normoactive bowel sounds, tenderness (epigastric) - *Routine Extremities Exam Absent: cyanosis, clubbing, edema - *Routine Skin Exam Present: warm. Absent: rash - *Routine Neurological Exam Present: alert, oriented X3 Assessment and Plan (1) GI bleed due to NSAIDs Current visit: Yes Status: Acute Category: Medical Code(s): K92.2 - Gastrointestinal hemorrhage, unspecified; T39.395A - Adverse effect of other nonsteroidal anti-inflammatory drugs [NSAID], initial encounter (2) Acute bronchitis Current visit: Yes Status: Acute Qualifiers: Bronchitis organism: unspecified organism Qualified Code(s): J20.9 - Acute bronchitis, unspecified Category: Medical Code(s): J20.9 - Acute bronchitis, unspecified (3) Tobacco abuse Current visit: No Status: Chronic Category: Medical Code(s): Z72.0 - Tobacco use (4) Anxiety Current visit: Yes Status: Chronic Category: Medical Code(s): F41.9 - Anxiety disorder, unspecified (5) Chronic pain Current visit: Yes Status: Chronic Category: Medical Code(s): G89.29 - Other chronic pain - Assessment and plan all Dx Assessment and Plan for all problems:: Give transfusion of PRBCs today, likely need to proceed with EGD.
--- NOTE | 2019-09-17 09:18 | Progress Note ---
[facility] Anesthesia Checklist - Patient Identification Patient Identification: Arm Band, Verbal (Name & ) - Structural Data Admitted From: Inpatient Planned Operative Procedure/s: egd Consent for Planned Operative Procedure(s) Verified: Yes Verified Documents: History and Physical - NPO Status Verified Time NPO: 00:00 - Chart Verification Results Verified: CBC, BMP - Additional verifications Patient : No Anesthesia Reactions: No Hx Blood Transfusions: No Blood Transfusion Reaction: No Cephalosporin Allergy: No Previous Colonoscopy: No - Cardiovascular Assessment Heart Sounds: S1 & S2 Pulse Strength: Baseline Pulse Rhythm: Regular Peripheral Edema: No - Airway Assessment C-Spine Mobility Assessed: Yes TMJ Mobility Assessed: Yes - Neurological Assessment Level of Consciousness: Awake, Alert, Appropriate Hx Seizures: No Numbness or tingling in extremities: No - Anesthesia Plan Anesthesia Risk discussed: Yes Anesthesia Plan: Verified ASA Class: III Anesthesia Type: [facility] History I have reviewed the patient's past medical history: Yes Medical History: Reports:: Anxiety, Asthma, Atherosclerotic Heart Disease, Coronary Artery Disease, Depression, Gastroesophageal Reflux Disease(GERD), Gastrointestinal Bleed, Lung Disease, Kidney Stones, Palpitations Denies:: Cancer, Diabetes Mellitus Type 1, Diabetes Mellitus Type 2, Home Oxygen, MRSA, Seizures *Have you ever received a pneumonia vaccine?: No *Have you received a flu vaccine this season?: No Other Medical History: Reports: Other Anesthesia experience/problems:: none Laterality Cases: Right: ACL Repair, Bilateral: Arthroscopy Knee, Other Other Surgeries: Yes: Appendectomy, EGD, Other Amputation: No Fractures: No - *Social History Smoking Status: Current every day smoker Tobacco Type: cigarettes # Packs/Day (cigarettes): 1 Alcohol Intake: current Alcohol Intake Frequency:: a few times a week Substance Use Type: opiates *Occupational Status:: unemployed Housing: house Household Members: significant other *Travel in the last 8 weeks: None - Psychiatric History Pschychiatric History:: Reports:: Anxiety, Depression Family Hx:: Coronary Artery Disease, Diabetes, Hyperlipidemia, Hypertension
--- NOTE | 2019-09-17 10:55 | Procedure Note ---
- Procedure: Date: 09/17/19 Procedure Performed:: Esophagogastroduodenoscopy with control of GI bleeding by injection of s ubmucosal epinephrine and placement of endoscopic Hemoclip x2 Indications:: Patient is a 43-year-old male. He had been admitted approximately 48 hours ago after he had some rectal bleeding. Patient also had cough and fever. He was admitted for inpatient management. He did undergo evaluation for SARS-Cov-2 which is still pending at the time of this dictation. Patient clinically stabilized with no additional bleeding and plan was made to hold on endoscopy if possible as it was felt it was not necessary for intervention urgently. However, this morning, repeat CBC revealed diminished hemoglobin to 5.9 with some evidence of clinical bleeding. Plan was made to proceed with upper endoscopy for diagnostic and potentially therapeutic purposes. Performing Provider:: Evan Nieves MD Referring Provider:: Damion Medina MD Sedation:: Propofol Procedure:: Procedure was performed in the patient's room at the bedside. He was positioned in lateral decubitus position. Adequate intravenous sedation was achieved with anesthesia titration of propofol. Olympus endoscope was inserted via the oropharynx and advanced to the esophagus. Esophagus appeared normal. Stomach was cannulated and insufflated. Retroflexion revealed no evidence of any appreciable hiatal hernia. Stomach was insufflated. In the antrum there was some diffuse erosive gastritis. There was also noted to be an antral gastric ulcer which was moderately large estimated 12 to 15 mm in diameter. It was mildly deep. There was a point of punctate discoloration of the exudate in the base which may be healing visible vessel but this was unclear. There is no obvious stigmata of recent bleeding at this site. Pylorus was traversed and the endoscope was advanced into the duodenum. In the second portion of duodenum there was an elongated moderately deep ulcer with obvious visible vessel. There was no adherent clot. At the time this was not actively bleeding but has shown stigmata of very recent bleeding with the obvious visible vessel. Plan was made for placement of Hemoclip. With minimal manipulation of the Hemoclip the ulcer began bleeding once again. Hemoclip was deployed. There is still some bleeding from the ulcer. Epinephrine was injected submucosally circumferentially around the ulcer for a total of approximately 7 cc. This resulted in good hemostasis with no bleeding noted. An additional endoscopic Hemoclip was then deployed at the visible vessel. There appeared to be good hemostasis. Irrigation and suctioning was performed as needed to allow for visualization and this was done at the completion of the procedure to ensure good hemostasis of the duodenal ulcer. There was good hemostasis. Stomach was desufflated and the endoscope was withdrawn. Findings:: Erosive gastritis Moderately large, moderately deep, gastric antral ulcer Duodenitis Duodenal ulcer, second portion, obvious visible vessel with stigmata of recent bleeding, hemostatic measures undertaken. Recommendations:: Continue high-dose proton pump inhibitors at this time. Would continue on n.p.o. status except for ice chips due to the potential for recurrent bleeding. Transfuse as necessary and monitor hemoglobin hematocrit. Complications:: None immediately apparent Estimated blood obtained (mL): 10
[2019-09-17 14:59] LABS: Hemoglobin 7.3 g/dL (14.1-18.0)
[2019-09-17 15:00] LABS: Hematocrit 22.9 % (42.0-52.0)
--- NOTE | 2019-09-18 07:11 | Progress Note ---
Subjective Narrative: The patient's Covid 19 lab results remain pending. In order to preserve PPE, I discussed the patient's ongoing care with nursing staff as opposed to enter the room. Per nursing, the patient "had a good night". He has had no nausea or vomiting. He has not had additional bowel movements/bloody bowel movements overnight. Exam Vital signs and Labs for Last 24 Hours: Temp Pulse Resp BP Pulse Ox 98.1 F 73 18 112/66 93 L 09/18/19 00:22 09/18/19 00:22 09/18/19 00:22 09/18/19 05:48 09/18/19 00:22 Laboratory Results - last 24 hr 09/15/19 03:10: Blood Type O Positive, Antibody Screen Negative, Crossmatch (AHG) See Detail 09/17/19 07:03: Blood Type Confirm O Positive 09/17/19 14:30: Hgb 7.3 L* D, Hct 22.9 L* I & O for Last 24 hours: Intake & Output 09/15/19 09/16/19 09/17/19 09/18/19 11:59 11:59 11:59 11:59 Intake Total 4665 / 4665 3007 / 3007 2812 / 2812 Output Total 1325 / 1325 3450 / 3450 1100 / 1100 Balance 3340 / 3340 -443 / -443 1712 / 1712 Weight 153 lb 160 lb 160 lb 156 lb Microbiology Reports for the Last 24 Hours: Microbiology 09/15/19 02:25 Throat Group A Streptococcus Screen ([facility]) - Final Negative for Group A Streptococcus. Progress Note: A&P (1) GI bleed due to NSAIDs Status: Acute Current Visit: Yes (2) Acute bronchitis Status: Acute Current Visit: Yes (3) Tobacco abuse Status: Chronic Current Visit: No (4) Anxiety Status: Chronic Current Visit: Yes (5) Chronic pain Status: Chronic Current Visit: Yes (6) Peptic ulcer disease with hemorrhage Status: Acute Assessment and plan: Overall, doing fairly well status post endoscopic therapy yesterday. Follow-up pending AM labs Current Visit: Yes
[2019-09-18 08:04] LABS: Basophils % 0.4 % (0.1-2.0); Eosinophils # 0.4 K/mm3 (0.0-0.4); Eosinophils % 8.2 % (0.1-12.0); Lymphocytes # 1.5 K/mm3 (0.7-4.5); Lymphocytes % 33.9 % (10-50); Mean Corpuscular HGB Conc 32.6 g/dL (31.8-35.4); Mean Corpuscular Volume 94.2 fl (80-94); Mean Platelet Volume 7.4 fl (7.4-10.4); Monocytes # 0.2 K/mm3 (0.1-1.0); Monocytes % 4.3 % (1.7-9.3); Neutrophils # 2.4 K/mm3 (1.8-7.8); Neutrophils % 53.2 % (37.0-80.0); Platelet Count 171 K/mm3 (142-424); Red Blood Count 2.49 M/mm3 (4.60-6.20); Red Cell Distribution Width 16.2 % (11.5-17.5); White Blood Count 4.5 K/mm3 (4.8-10.8)
[2019-09-18 08:16] LABS: Anion Gap 4.8 mEq/L (5-15); Calcium 7.8 mg/dl (8.4-10.2)
[2019-09-18 08:17] LABS: Hematocrit 23.4 % (42.0-52.0); Hemoglobin 7.6 g/dL (14.1-18.0)
--- NOTE | 2019-09-18 08:46 | Progress Note ---
Internal Medicine - PN: Subj *Date: 09/18/19 *Time: 08:43 Interval history: Patient with no new complaints today. States he feels better, no bloody bowel movements overnight. Exam Vital signs and Labs for Last 24 Hours: Temp Pulse Resp BP Pulse Ox 97.7 F 70 16 109/70 L 92 L 09/18/19 08:00 09/18/19 08:00 09/18/19 08:00 09/18/19 08:00 09/18/19 08:00 Laboratory Results - last 24 hr 09/15/19 03:10: Blood Type O Positive, Antibody Screen Negative, Crossmatch (AHG) See Detail 09/17/19 14:30: Hgb 7.3 L* D, Hct 22.9 L* 09/18/19 07:35: WBC 4.5 L, RBC 2.49 L D, Hgb 7.6 L*, Hct 23.4 L*, MCV 94.2 H, MCH 30.7, MCHC 32.6, RDW 16.2, Plt Count 171, MPV 7.4, Neut % (Auto) 53.2, Lymph % (Auto) 33.9, Bartholomew % (Auto) 4.3, Eos % (Auto) 8.2, Baso % (Auto) 0.4, Neut # (Auto) 2.4, Lymph # (Auto) 1.5, Bartholomew # (Auto) 0.2, Eos # (Auto) 0.4, Baso # (Auto) 0.0 09/18/19 07:35: Sodium 137, Potassium 3.8, Chloride 108 H, Carbon Dioxide 28, Anion Gap 4.8 L, BUN 16 D, Creatinine 0.70, Estimated Creat Clear 135, Estimated GFR 123, Est GFR ( Amer) 148, Glucose 77, Calcium 7.8 L Vital Signs - 24 hr 09/17/19 09:29 09/17/19 09:30 09/17/19 10:06 Temperature 98.2 F 98.4 F Pulse Rate 85 Pulse Rate [Left Radial] 92 H 92 H Respiratory Rate 20 Blood Pressure 90/49 L Blood Pressure [Right Arm] 86/40 L 02 Sat by Pulse Oximetry 95 95 90 L 09/17/19 10:35 09/17/19 10:40 09/17/19 10:45 Temperature 98.7 F 99.2 F Pulse Rate 71 72 Pulse Rate [Left Radial] 74 72 Respiratory Rate 18 20 18 Blood Pressure 133/73 128/75 Blood Pressure [Right Arm] 123/74 128/75 02 Sat by Pulse Oximetry 100 100 100 09/17/19 10:50 09/17/19 10:55 09/17/19 11:10 Temperature 99.0 F 98.7 F 98.4 F Pulse Rate 72 78 75 Pulse Rate [Left Radial] 70 Respiratory Rate 18 18 20 Blood Pressure 129/65 123/67 120/63 Blood Pressure [Right Arm] 129/72 02 Sat by Pulse Oximetry 98 100 100 09/17/19 11:25 09/17/19 11:40 09/17/19 13:30 Temperature 98.6 F 98.2 F 98.0 F Pulse Rate 75 76 76 Pulse Rate [Left Radial] Respiratory Rate 19 18 18 Blood Pressure 110/59 L 101/50 L 108/53 L Blood Pressure [Right Arm] 02 Sat by Pulse Oximetry 98 96 96 09/17/19 15:20 09/17/19 15:25 09/17/19 15:30 Temperature 98.6 F 98.6 F 98.7 F Pulse Rate 91 H 84 85 Pulse Rate [Left Radial] Respiratory Rate 20 18 18 Blood Pressure 91/51 L 118/88 84/41 L Blood Pressure [Right Arm] 02 Sat by Pulse Oximetry 97 95 95 09/17/19 15:35 09/17/19 15:40 09/17/19 15:55 Temperature 98.6 F 98.5 F 98.6 F Pulse Rate 94 H 78 83 Pulse Rate [Left Radial] Respiratory Rate 18 20 18 Blood Pressure 80/45 L 105/56 L 92/41 L Blood Pressure [Right Arm] 02 Sat by Pulse Oximetry 96 95 96 09/17/19 16:10 09/17/19 16:25 09/17/19 17:00 Temperature 97.6 F 97.7 F 98.0 F Pulse Rate 80 77 77 Pulse Rate [Left Radial] Respiratory Rate 17 16 18 Blood Pressure 83/42 L 84/48 L 83/50 L Blood Pressure [Right Arm] 02 Sat by Pulse Oximetry 96 93 L 94 L 09/17/19 18:19 09/17/19 21:00 09/18/19 00:22 Temperature 98.6 F 98.1 F Pulse Rate 66 Pulse Rate [Left Radial] 70 73 Respiratory Rate 16 20 18 Blood Pressure 91/42 L Blood Pressure [Right Arm] 94/58 L 102/64 L 02 Sat by Pulse Oximetry 92 L 99 93 L 09/18/19 05:48 09/18/19 08:00 Temperature 97.7 F Pulse Rate Pulse Rate [Left Radial] 70 Respiratory Rate 16 Blood Pressure Blood Pressure [Right Arm] 112/66 109/70 L 02 Sat by Pulse Oximetry 92 L I & O for Last 24 hours: Intake & Output 09/15/19 09/16/19 09/17/19 09/18/19 23:59 23:59 23:59 23:59 Intake Total 2582 / 2582 2895 / 2895 3517 / 3517 1490 / 1490 Output Total 275 / 575 2200 / 2200 3000 / 3400 400 / 400 Balance 2306 / 2006 695 / 695 517 / 117 1090 / 1090 Weight 153 lb 160 lb 160 lb 156 lb Microbiology Reports for the Last 24 Hours: Microbiology 09/15/19 02:25 Throat Group A Streptococcus Screen ([facility]) - Final Negative for Group A Streptococcus. - Constitutional no acute distress - *Routine HEENT Exam Head: Present: normocephalic Eye: Present: EOMI ENT: Present: mucous membranes moist - *Routine Neck Exam Present: supple. Absent: lymphadenopathy - *Routine Respiratory Exam Present: CTA bilaterally - *Routine Cardiovascular Exam Present: RRR - *Routine Abdominal Exam Present: soft, normoactive bowel sounds, tenderness (minimal RUQ). Absent: guarding - *Routine Extremities Exam Absent: cyanosis, clubbing, edema - *Routine Skin Exam Present: warm. Absent: rash - *Routine Neurological Exam Present: alert, oriented X3 Assessment and Plan (1) GI bleed due to NSAIDs Current visit: Yes Status: Acute Category: Medical Code(s): K92.2 - Gastrointestinal hemorrhage, unspecified; T39.395A - Adverse effect of other nonsteroidal anti-inflammatory drugs [NSAID], initial encounter (2) Acute bronchitis Current visit: Yes Status: Acute Qualifiers: Bronchitis organism: unspecified organism Qualified Code(s): J20.9 - Acute bronchitis, unspecified Category: Medical Code(s): J20.9 - Acute bronchitis, unspecified (3) Tobacco abuse Current visit: No Status: Chronic Category: Medical Code(s): Z72.0 - Tobacco use (4) Anxiety Current visit: Yes Status: Chronic Category: Medical Code(s): F41.9 - Anxiety disorder, unspecified (5) Chronic pain Current visit: Yes Status: Chronic Category: Medical Code(s): G89.29 - Other chronic pain (6) Peptic ulcer disease with hemorrhage Current visit: Yes Status: Acute Category: Medical Code(s): K27.4 - Chronic or unspecified peptic ulcer, site unspecified, with hemorrhage (7) Acute blood loss anemia Current visit: Yes Status: Acute Category: Medical Code(s): D62 - Acute posthemorrhagic anemia - Assessment and plan all Dx Assessment and Plan for all problems:: Patient has improved. Spoke to Dr. Nieves after EGD. Plan to give 2 more units of PRBCs today.
--- NOTE | 2019-09-18 09:15 | Progress Note ---
Internal Medicine - PN: Subj *Date: 09/18/19 *Time: 09:14 Exam Vital signs and Labs for Last 24 Hours: Temp Pulse Resp BP Pulse Ox 97.7 F 70 16 109/70 L 92 L 09/18/19 08:00 09/18/19 08:00 09/18/19 08:00 09/18/19 08:00 09/18/19 08:00 Laboratory Results - last 24 hr 09/15/19 03:10: Blood Type O Positive, Antibody Screen Negative, Crossmatch (AHG) See Detail 09/17/19 14:30: Hgb 7.3 L* D, Hct 22.9 L* 09/18/19 07:35: WBC 4.5 L, RBC 2.49 L D, Hgb 7.6 L*, Hct 23.4 L*, MCV 94.2 H, M CH 30.7, MCHC 32.6, RDW 16.2, Plt Count 171, MPV 7.4, Neut % (Auto) 53.2, Lymph % (Auto) 33.9, Dawes % (Auto) 4.3, Eos % (Auto) 8.2, Baso % (Auto) 0.4, Neut # (Auto) 2.4, Lymph # (Auto) 1.5, Dawes # (Auto) 0.2, Eos # (Auto) 0.4, Baso # (Auto) 0.0 09/18/19 07:35: Sodium 137, Potassium 3.8, Chloride 108 H, Carbon Dioxide 28, Anion Gap 4.8 L, BUN 16 D, Creatinine 0.70, Estimated Creat Clear 135, Estimated GFR 123, Est GFR ( Amer) 148, Glucose 77, Calcium 7.8 L I & O for Last 24 hours: Intake & Output 09/15/19 09/16/19 09/17/19 09/18/19 23:59 23:59 23:59 23:59 Intake Total 2582 / 2582 2895 / 2895 3517 / 3517 1490 / 1490 Output Total 275 / 575 2200 / 2200 3000 / 3400 400 / 400 Balance 2306 / 2006 695 / 695 517 / 117 1090 / 1090 Weight 69.4 kg 72.575 kg 72.575 kg 70.76 kg Microbiology Reports for the Last 24 Hours: Microbiology 09/15/19 02:25 Throat Group A Streptococcus Screen ([facility]) - Final Negative for Group A Streptococcus. Assessment and Plan (1) GI bleed due to NSAIDs Current visit: Yes Status: Acute Category: Medical Code(s): K92.2 - Gastrointestinal hemorrhage, unspecified; T39.395A - Adverse effect of other nonsteroidal anti-inflammatory drugs [NSAID], initial encounter (2) Acute bronchitis Current visit: Yes Status: Acute Qualifiers: Bronchitis organism: unspecified organism Qualified Code(s): J20.9 - Acute bronchitis, unspecified Category: Medical Code(s): J20.9 - Acute bronchitis, unspecified (3) Tobacco abuse Current visit: No Status: Chronic Category: Medical Code(s): Z72.0 - Tobacco use (4) Anxiety Current visit: Yes Status: Chronic Category: Medical Code(s): F41.9 - Anxiety disorder, unspecified (5) Chronic pain Current visit: Yes Status: Chronic Category: Medical Code(s): G89.29 - Other chronic pain (6) Peptic ulcer disease with hemorrhage Current visit: Yes Status: Acute Category: Medical Code(s): K27.4 - Chronic or unspecified peptic ulcer, site unspecified, with hemorrhage (7) Acute blood loss anemia Current visit: Yes Status: Acute Category: Medical Code(s): D62 - Acute posthemorrhagic anemia The patient's infection will respond to the chosen ABx?: Yes Is the patient receiving the right drug, dose, and route?: Yes Could a more targeted ABx be ordered?: No
[2019-09-18 19:39] LABS: Hematocrit 33.1 % (42.0-52.0)
[2019-09-18 20:09] LABS: Hemoglobin 10.4 g/dL (14.1-18.0)
--- NOTE | 2019-09-19 09:17 | Progress Note ---
Internal Medicine - PN: Subj *Date: 09/19/19 *Time: 09:14 Interval history: Patient denies abd pain. He had no bloody bowel movements overnight. He was moved to a different/smaller room last night and feels very anxious after the move. Pt is anxious to go home. Exam Vital signs and Labs for Last 24 Hours: Temp Pulse Resp BP Pulse Ox 98.7 F 56 L 15 165/94 H 100 09/19/19 07:48 09/19/19 07:48 09/19/19 07:48 09/19/19 07:48 09/19/19 07:59 Laboratory Results - last 24 hr 09/18/19 09:10: Blood Type O Positive, Antibody Screen Negative, Crossmatch (AHG) See Detail 09/18/19 19:30: Hgb 10.4 L D, Hct 33.1 L Vital Signs - 24 hr 09/18/19 13:33 09/18/19 13:35 09/18/19 13:40 Temperature 98.1 F 98.1 F 98.4 F Pulse Rate 70 66 61 Pulse Rate [Left Radial] Respiratory Rate 18 16 18 Blood Pressure 104/50 L 98/61 L 113/63 Blood Pressure [Right Arm] 02 Sat by Pulse Oximetry 96 97 96 09/18/19 13:45 09/18/19 13:50 09/18/19 14:05 Temperature 97.8 F 97.9 F 97.9 F Pulse Rate 68 61 57 L Pulse Rate [Left Radial] Respiratory Rate 18 16 18 Blood Pressure 108/57 L 166/51 H 104/42 L Blood Pressure [Right Arm] 02 Sat by Pulse Oximetry 98 99 98 09/18/19 14:20 09/18/19 15:46 09/18/19 15:50 Temperature 98.2 F 98.3 F 98.3 F Pulse Rate 53 L 64 64 Pulse Rate [Left Radial] Respiratory Rate 16 18 18 Blood Pressure 126/80 132/77 132/77 Blood Pressure [Right Arm] 02 Sat by Pulse Oximetry 95 94 L 94 L 09/18/19 15:55 09/18/19 16:00 09/18/19 16:05 Temperature 98.1 F 97.1 F L 98.3 F Pulse Rate 68 64 60 Pulse Rate [Left Radial] 60 Respiratory Rate 21 18 14 Blood Pressure 131/86 141/79 H 131/81 Blood Pressure [Right Arm] 123/60 02 Sat by Pulse Oximetry 98 94 L 93 L 09/18/19 16:20 09/18/19 16:35 09/18/19 16:50 Temperature 97.3 F L 97.1 F L 97.3 F L Pulse Rate 57 L 62 61 Pulse Rate [Left Radial] Respiratory Rate 16 18 20 Blood Pressure 159/51 H 147/55 H 136/79 Blood Pressure [Right Arm] 02 Sat by Pulse Oximetry 96 95 92 L 09/18/19 17:50 09/18/19 18:14 09/18/19 20:00 Temperature 97.9 F 98.0 F 97.0 F L Pulse Rate 57 L 68 Pulse Rate [Left Radial] 66 Respiratory Rate 18 17 14 Blood Pressure 137/79 137/78 Blood Pressure [Right Arm] 131/82 02 Sat by Pulse Oximetry 97 97 100 09/19/19 00:00 09/19/19 04:00 09/19/19 07:48 Temperature 97.2 F L 97.5 F L 98.7 F Pulse Rate Pulse Rate [Left Radial] 68 57 L 56 L Respiratory Rate 16 16 15 Blood Pressure Blood Pressure [Right Arm] 147/93 H 149/77 H 165/94 H 02 Sat by Pulse Oximetry 97 95 100 09/19/19 07:59 Temperature Pulse Rate Pulse Rate [Left Radial] Respiratory Rate Blood Pressure Blood Pressure [Right Arm] 02 Sat by Pulse Oximetry 100 I & O for Last 24 hours: Intake & Output 09/16/19 09/17/19 09/18/19 09/19/19 23:59 23:59 23:59 23:59 Intake Total 2895 / 2895 3517 / 3517 1989 Output Total 2200 / 2200 3000 / 3400 1450 / 1450 300 / 300 Balance 695 / 695 517 / 117 540 / 540 1740 / 1740 Weight 160 lb 160 lb 156 lb - Constitutional no acute distress - *Routine HEENT Exam Head: Present: normocephalic Eye: Present: EOMI ENT: Present: mucous membranes moist - *Routine Neck Exam Present: supple. Absent: lymphadenopathy - *Routine Respiratory Exam Present: CTA bilaterally - *Routine Cardiovascular Exam Present: RRR - *Routine Abdominal Exam Present: soft, normoactive bowel sounds. Absent: tenderness - *Routine Extremities Exam Absent: cyanosis, clubbing, edema - *Routine Skin Exam Present: warm. Absent: rash - *Routine Neurological Exam Present: alert, oriented X3 Assessment and Plan (1) GI bleed due to NSAIDs Current visit: Yes Status: Acute Category: Medical Code(s): K92.2 - Gastrointestinal hemorrhage, unspecified; T39.395A - Adverse effect of other nonsteroidal anti-inflammatory drugs [NSAID], initial encounter (2) Acute bronchitis Current visit: Yes Status: Acute Qualifiers: Bronchitis organism: unspecified organism Qualified Code(s): J20.9 - Acute bronchitis, unspecified Category: Medical Code(s): J20.9 - Acute bronchitis, unspecified (3) Tobacco abuse Current visit: No Status: Chronic Category: Medical Code(s): Z72.0 - Tobacco use (4) Anxiety Current visit: Yes Status: Chronic Category: Medical Code(s): F41.9 - Anxiety disorder, unspecified (5) Chronic pain Current visit: Yes Status: Chronic Category: Medical Code(s): G89.29 - Other chronic pain (6) Peptic ulcer disease with hemorrhage Current visit: Yes Status: Acute Category: Medical Code(s): K27.4 - Chronic or unspecified peptic ulcer, site unspecified, with hemorrhage (7) Acute blood loss anemia Current visit: Yes Status: Acute Category: Medical Code(s): D62 - Acute posthemorrhagic anemia - Assessment and plan all Dx Assessment and Plan for all problems:: H/H is much better now, advance diet today, possible home late today.
--- NOTE | 2019-09-19 15:37 | Discharge Summary ---
General - General Admission date:: 09/15/19 <Damion Medina - 09/19/19 16:45> 09/17/19 <Aleah Douglass - 09/19/19 15:39> Discharge date: 09/19/19 <Aleah Douglass - 09/19/19 15:39> HPI HPI: Mr. Dave is a 43-year-old male with a history of heart disease, asthma, bronchitis, GERD, drug dependence on Suboxone, anxiety, chronic pain, tobacco use disorder who presented to [facility] last night after having 5 bloody stools at home. He describes each stool of large quantities. After arrival to the emergency room he had 2 additional bloody stools of large amount. He describes his abdomen feeling "funny" for the last few days. He has had some nausea and vomiting but mostly at the end of coughing spasms and no hematemesis. He has not been eating as well but he states he has been drinking fluids well. He notes that he takes 6-8 ibuprofens daily for back and neck pain, and headache. Patient has also had a productive cough for over a week. [facility], was told he had pneumonia and was placed on an antibiotic and steroid and has been using inhalers. He states he did not improve very much. He describes having a fever along with the cough and some shortness of breath. Patient has continued to smoke. He has no sick contacts. In the emergency room he was started on a PPI, Rocephin, and Zithromax. He had a CT of the abdomen and pelvis with pending results. Chest x-ray did show a pulmonary nodule. Diarrhea panel was negative except positive for occult blood. He did have a SARSCOV2 lab work drawn. <Aleah Douglass - 09/19/19 15:39> Hospital Course Hospital Course: The patient's initial chest x-ray showed a left perihilar nodule. His abdominal and pelvic CT showed bilateral nephrolithiasis and possible mild enteritis. His diarrhea panel was negative but his stool was positive for blood. His H&H was monitored and he was continued on antibiotics and duo nebs. A PPI was initiated. Surgery was consulted and he was seen by Dr. Nieves. He felt an upper endoscopy would be warranted, but did not want to pursue this emergently. He wanted to m onitor his H&H and if he continued to drop or show evidence of ongoing bleeding, then he would need an expedited scope. Patient's H&H continued to drop. He was started on a full liquid diet. Dr. Nieves felt he would need upper endoscopy. This was performed on 09/17/19 and showed erosive gastritis, a moderately large and moderately deep gastric antral ulcer, duodenitis, and a duodenal ulcer with obvious visible vessel with stigmata of recent bleeding. Hemostatic measures were undertaken. The patient was continued on high-dose PPIs and was placed n.p.o. except for ice chips due to potential for recurrent bleeding. He was transfused due to low H&H with 4 units of PRBC's. His hemoglobin got as low as 5.9 on 09/17/2019 and improved to 10.4 on 09/18/19. The patient tolerated the procedure well and had no further bloody bowel movements. His abdominal pain improved. His diet was advanced and he tolerated this well. He was anxious to be discharged home and was stable to be discharged on a PPI and to follow-up with Dr. Nieves in 2 weeks. Patient's Covid 19 test is still pending, therefore he is to remain on self isolation at home until the test results are known. <Aleah Douglass - 09/19/19 15:39> Objective Vital signs: Temp Pulse Resp BP Pulse Ox 98.7 F 59 L 16 166/92 H 98 09/19/19 12:00 09/19/19 12:00 09/19/19 12:00 09/19/19 12:00 09/19/19 12:00 <Damion Medina - 09/19/19 16:46> Temp Pulse Resp BP Pulse Ox 98.7 F 59 L 16 166/92 H 98 09/19/19 12:00 09/19/19 12:00 09/19/19 12:09/19/19 12:09/19/19 12:00 <Aleah Douglass - 09/19/19 15:39> Narrative: - Constitutional no acute distress Comments: Conversant - *Routine HEENT Exam Head: Present: normocephalic, atraumatic Eye: Present: PERRL. Absent: conjunctival icterus, scleral injection ENT: Present: mucous membranes moist, oropharynx clear - *Routine Respiratory Exam Absent: respiratory distress Comments: Bilateral rhonchi and wheezing. Congested cough - *Routine Cardiovascular Exam Present: RRR - *Routine Abdominal Exam Present: soft, normoactive bowel sounds, tenderness (Lower abdomen). Absent: distended - *Routine Extremities Exam Present: pulses intact, tenderness (Left foot). Absent: edema, calf tenderness - *Routine Neurological Exam Present: alert, oriented X3 Slow speech <Aleah Douglass - 09/19/19 15:39> Results Labs on day of discharge: Labs from last 24 hours 09/18/19 09/18/19 19:30 09:10 Hgb 10.4 L D Hct 33.1 L Crossmatch (AHG) See Detail Preliminary micro results at discharge 09/15/19 02:20 Blood Culture - Preliminary Blood NO GROWTH AFTER 48 HOURS 09/15/19 02:20 Blood Culture - Preliminary Blood NO GROWTH AFTER 48 HOURS <Damion Medina - 09/19/19 16:46> Labs from last 24 hours 09/18/19 09/18/19 19:30 09:10 Hgb 10.4 L D Hct 33.1 L Blood Type O Positive Antibody Screen Negative Crossmatch (AHG) See Detail Preliminary micro results at discharge 09/15/19 02:20 Blood Culture - Preliminary Blood NO GROWTH AFTER 48 HOURS 09/15/19 02:20 Blood Culture - Preliminary Blood NO GROWTH AFTER 48 HOURS <Aleah Douglass - 09/19/19 15:39> DS: Diagnosis - Discharge Diagnosis (1) GI bleed due to NSAIDs Status: Acute (2) Acute bronchitis Status: Acute (3) Tobacco abuse Status: Chronic (4) Anxiety Status: Chronic (5) Chronic pain Status: Chronic (6) Peptic ulcer disease with hemorrhage Status: Acute (7) Acute blood loss anemia Status: Acute <Damion Medina - 09/19/19 16:46> (1) GI bleed due to NSAIDs Status: Acute (2) Acute bronchitis Status: Acute (3) Tobacco abuse Status: Chronic (4) Anxiety Status: Chronic (5) Chronic pain Status: Chronic (6) Peptic ulcer disease with hemorrhage Status: Acute (7) Acute blood loss anemia Status: Acute <Aleah Douglass - 09/19/19 15:30> Discharge Plan - Patient Discharge Instructions ACTIVITY: Continue current activity <Aleah Douglass - 09/19/19 15:39> DIET: advance to your usual diet <MalikCésar craiga - 09/19/19 15:39> Additional Instructions: COVID-19 test is pending at time of discharge on 09/18. Swab was collected on 09/14 (day of admission) and was sent to [facility]. Patient is to self isolate until results are known. <Damion Medina 09/19/19 16:45> Patient Instructions: DI for Acute Bronchitis, DI for Peptic Ulcer, DI for Gastrointestinal Bleeding, Preventing the Spread of Coronavirus Discharge Instructions <Damion Medina 09/19/19 16:46> Forms: <Damion Medina 09/19/19 16:46> - Follow up Plan Follow up with: Evan Nieves MD [Staff Physician] - 2 weeks (September 28 10:00am) <Damion Medina 09/19/19 16:46> Disposition: Home, Self-Care <Damion Medina 09/19/19 16:46> Home Medications: Home Medications Medication Instructions Recorded Confirmed Type Albuterol Sulfate [Proair Hfa 1 puff IH Q6HP PRN 03/17/18 09/15/19 History 90mcg/puff Inh] Buprenorphine HCl/Naloxone HCl 2 film SL DAILY 03/17/18 09/15/19 History [Suboxone 8 mg-2 mg Sl Film] diazePAM [Valium 10mg tablet] 10 mg PO DAILY 09/15/19 09/15/19 History Pantoprazole Sodium [Protonix 40mg 40 mg PO BID 30 Days #60 tab 09/19/19 Rx tablet] <Damion Medina - 09/19/19 16:46> Prescriptions/Medication Reconciliation: New Pantoprazole Sodium [Protonix 40mg tablet] 40 mg PO BID 30 Days #60 tab Continued Albuterol Sulfate [Proair Hfa 90mcg/puff Inh] 1 puff IH Q6HP PRN PRN Reason: Shortness Of Breath diazePAM [Valium 10mg tablet] 10 mg PO DAILY Buprenorphine HCl/Naloxone HCl [Suboxone 8 mg-2 mg Sl Film] 2 film SL DAILY Discontinued predniSONE [Deltasone 20mg tablet] 20 mg PO BID levoFLOXacin [Levofloxacin 750MG Tablet] 750 mg PO DAILY <Damion Medina - 09/19/19 16:46> - Problem Reconciliation Problems Reviewed?: Yes <Damion Medina - 09/19/19 16:45> Yes <Aleah Douglass - 09/19/19 15:39>
== END 2019-09-19 14:57 | disposition home or self-care (01) | DRG 378 ==
LOC: ER 01:06 → 2ND 02:57 → INTOOBSV 04:25 → 2ND 04:28 → ICU 09-18 14:08
PROVIDERS: ADMIT Family Medicine; ATTEND Family Medicine
CPT/HCPCS: 36415; 71020; 71046; 74177; 80048; 80053; 81001; 82272; 83605; 83690; 85014; 85018; 85025; 85610; 85730; 86850; 87040; 87275; 87276; 87430; 87507; 87635; 96365; 96367; 96375; 99285; G0328; G0378; J0456; J0571; J2405; P9016; Q9967; U0002

== ENCOUNTER → 2019-09-29 10:38 | Outpatient (CLI) | payer MEDICARE, SELFPAY ==
[2019-09-29 11:01] LABS: Hematocrit 38.1 % (42.0-52.0); Hemoglobin 12.1 g/dL (14.1-18.0)
== END ==
PROVIDERS: Visit Provider Surgery
DX: D64.9 Anemia, unspecified (principal)
CPT/HCPCS: 36415; 85014; 85018

== ENCOUNTER → 2019-11-03 11:01 | Outpatient (CLI) | payer MEDICARE, SELFPAY ==
[2019-11-03 11:18] LABS: Basophils # 0.1 K/mm3 (0-0.2); Basophils % 0.9 % (0.1-2.0); Eosinophils # 0.4 K/mm3 (0.0-0.4); Eosinophils % 6.8 % (0.1-12.0); Hematocrit 42.4 % (42.0-52.0); Hemoglobin 13.5 g/dL (14.1-18.0); Lymphocytes # 1.6 K/mm3 (0.7-4.5); Lymphocytes % 25.9 % (10-50); Mean Corpuscular HGB Conc 31.8 g/dL (31.8-35.4); Mean Corpuscular Hemoglobin 30.1 pg (27.0-31.2); Mean Corpuscular Volume 94.5 fl (80-94); Mean Platelet Volume 7.4 fl (7.4-10.4); Monocytes # 0.4 K/mm3 (0.1-1.0); Monocytes % 6.3 % (1.7-9.3); Neutrophils # 3.8 K/mm3 (1.8-7.8); Neutrophils % 60.1 % (37.0-80.0); Platelet Count 285 K/mm3 (142-424); Red Blood Count 4.49 M/mm3 (4.60-6.20); Red Cell Distribution Width 15.5 % (11.5-17.5); White Blood Count 6.3 K/mm3 (4.8-10.8)
== END ==
PROVIDERS: Visit Provider Surgery
DX: J45.901 Unspecified asthma with (acute) exacerbation (principal); Z90.49 Acquired absence of other specified parts of digestive tract
CPT/HCPCS: 36415; 85025

== ENCOUNTER → 2019-11-17 10:26 | Outpatient (CLI) | payer MEDICARE, SELFPAY ==
[2019-11-17 12:11] LABS: Coronavirus 19 IgG Antibody Negative (Negative); Coronavirus 19 IgM Antibody Negative (Negative)
== END ==
PROVIDERS: Visit Provider Surgery
DX: Z01.818 Encounter for other preprocedural examination (principal)
CPT/HCPCS: 36415; 86328

== ENCOUNTER 2019-11-18 06:11 | Day surgery (SDC) | payer MEDICARE, SELFPAY ==
--- NOTE | 2019-11-12 09:43 | SUR.PREOP ---
11/12/2019 @ 0943--PHONE CALL MADE TO PATIENT. PATIENT UNDERSTANDS THAT LAB WORK AND COVID TESTING NEEDS TO BE COMPLETED @ 1000 ON 11/17/19. PATIENT UNDERSTANDS IF LAB WORK AND COVID-19 TESTS ARE NOT COMPLETED BY 12PM ON THAT DATE, THE SURGERY SCHEDULED WILL BE CANCELLED AND RESCHEDULED FOR ANOTHER TIME.
[2019-11-13 15:16] VITALS: BMI 24.3
[2019-11-18 06:35] VITALS: BP 131/85; PULSE 64; RESP 18; TEMP 36.3; O2SAT 97
--- NOTE | 2019-11-18 07:37 | P.PN_ITS ---
[facility] Anesthesia Checklist - Patient Identification Patient Identification: Arm Band, Verbal (Name & ) - Structural Data Admitted From: Home Planned Operative Procedure/s: EGD Consent for Planned Operative Procedure(s) Verified: Yes Verified Documents: Surgical Consent, History and Physical - NPO Status Verified Time NPO: 00:00 - Chart Verification Results Verified: CBC, BMP, PT, PTT, INR, UA, Chest Xray - Additional verifications Anesthesia Reactions: No Hx Blood Transfusions: No Blood Transfusion Reaction: No - Airway Assessment C-Spine Mobility Assessed: Yes TMJ Mobility Assessed: Yes Dentition: Poor Dentition (upper denture) - Neurological Assessment Level of Consciousness: Awake, Alert, Appropriate, Follows Commands Hx Seizures: No Numbness or tingling in extremities: No - Anesthesia Plan Anesthesia Risk discussed: Yes Anesthesia Plan: Verified ASA Class: III Anesthesia Type: [facility] History I have reviewed the patient's past medical history: Yes Medical History: Reports:: Anxiety, Asthma, Atherosclerotic Heart Disease, Coronary Artery Disease, Depression, Gastroesophageal Reflux Disease(GERD), Gastrointestinal Bleed, Lung Disease, Kidney Stones, Palpitations Denies:: Cancer, Diabetes Mellitus Type 1, Diabetes Mellitus Type 2, Home Oxygen, Internal Pacemaker, MRSA, Seizures *Have you ever received a pneumonia vaccine?: No *Have you received a flu vaccine this season?: No Other Medical History: Reports: Other. Denies: Blood Transfusion Reaction Anesthesia experience/problems:: None Laterality Cases: Right: ACL Repair, Bilateral: Arthroscopy Knee, Other Other Surgeries: Yes: Appendectomy, EGD, Other. No: Pacemaker Amputation: No Fractures: No - *Social History Educational Level: Completed High School Smoking Status: Current every day smoker Tobacco Type: cigarettes # Packs/Day (cigarettes): 1 Alcohol Intake: current Alcohol Intake Frequency:: a few times a week Substance Use Type: opiates *Occupational Status:: unemployed Housing: house Household Members: significant other *Travel in the last 8 weeks: None - Psychiatric History Pschychiatric History:: Reports:: Anxiety, Depression Family Hx:: Coronary Artery Disease, Diabetes, Hyperlipidemia, Hypertension
[2019-11-18 08:09] VITALS: O2SAT 100
[2019-11-18 08:30] VITALS: BP 159/97; PULSE 62; RESP 20; TEMP 36.1; O2SAT 95
--- NOTE | 2019-11-18 08:30 | HMH.SCOPE ---
- Procedure: Date: 11/18/19 Procedure Performed:: Esophagogastroduodenoscopy with biopsies Indications:: Patient is a 44-year-old male. He has a prior history of opiate dependence and a couple of months ago after this is been discontinued he had been taking a large amount of NSAIDs for back pain. He was admitted as an inpatient for upper respiratory symptoms and for potential upper GI bleeding. He underwent upper endoscopy due to ongoing evidence of clinical bleeding and decreasing hemoglobin hematocrit on 09/17/2019 as an inpatient. He was found to have a couple of ulcers 1 of which had stigmata of recent bleeding with visible vessel. He had this injected and clips applied. Patient did have a good response with stability of hemoglobin after 4 unit transfusion and was discharged home on Protonix. He was seen in the office a couple of weeks after discharge and had increasing hemoglobin and hematocrit. He has been seen in the office a couple of times and has been doing clinically well. Plan was made for follow-up upper endoscopy to reassess the ulcers and for potential biopsies. Performing Provider:: Evan Nieves MD Referring Provider:: Clement Egan MD Sedation:: Propofol Procedure:: Patient was taken to endoscopy procedure room. He was positioned in a lateral decubitus position. Adequate intravenous sedation was achieved with anesthesia titration of propofol. Please note the patient required a very large dosing of propofol for adequate sedation. Olympus endoscope was inserted via the oropharynx. Advanced through the esophagus. Stomach was cannulated and insufflated. He had some diffuse nonerosive gastritis. There is no evidence of any gastric erosions or ulcers. Retroflexion revealed no evidence of any appreciable hiatal hernia. Pylorus was traversed. Duodenal bulb and duodenal sweep were inspected and found to have mild duodenitis but no evidence of any residual ulcer. Ulcers had completely healed. Gastric antral mucosal biopsy was obtained for CLOtest for H. pylori. Gastric biopsy was obtained for histopathologic analysis and for H. pylori assessment. Couple biopsies were obtained at the gastroesophageal junction to rule out Blanchard's esophagus. Endoscope was withdrawn. Findings:: Nonerosive gastritis Healed duodenal ulcers Recommendations:: Continue proton pump inhibitors for now. If his biopsies are negative for H. pylori and there is no evidence of any Blanchard's esophagus on biopsies he may be able to be switched to H2 blockers. Complications:: None immediately apparent Estimated blood obtained (mL): 2
[2019-11-18 08:40] VITALS: BP 142/73; PULSE 63; RESP 20; TEMP 36.1; O2SAT 98
[2019-11-18 08:50] VITALS: BP 169/99; PULSE 52; RESP 20; TEMP 36.1; O2SAT 97
[2019-11-18 09:05] VITALS: BP 161/97; PULSE 53; RESP 20; TEMP 36.1; O2SAT 98
== END 2019-11-18 09:05 | disposition home or self-care (01) ==
LOC: OUTP 06:13
PROVIDERS: PCP Emergency Medicine; Visit Provider Surgery
PROC: 0DJ08ZZ Inspection of Upper Intestinal Tract, Via Natural or Artificial Opening Endoscopic (ICD-10-PCS; CPT 43235; principal; 2019-11-18 08:30)
DX: Z87.11 Personal history of peptic ulcer disease (principal); Z90.49 Acquired absence of other specified parts of digestive tract; J45.909 Unspecified asthma, uncomplicated; F41.9 Anxiety disorder, unspecified; Z79.899 Other long term (current) drug therapy; K29.60 Other gastritis without bleeding
CPT/HCPCS: 43239; 87339; 88305; 88342

== ENCOUNTER → 2020-06-01 08:59 | Outpatient (POV) | payer MEDICARE, MEDICAID, SELFPAY | PROVIDERS: Visit Provider Dermatology | DX: Z00.00 Encounter for general adult medical examination without abnormal findings (principal) ==

== ENCOUNTER 2020-07-15 09:16 | Emergency (ER) | payer MEDICARE, MEDICAID, SELFPAY ==
[2020-07-15 09:25] VITALS: BP 134/109; PULSE 89; RESP 20; TEMP 36.5; O2SAT 95; BMI 24.3
--- NOTE | 2020-07-15 09:58 | HMH.EDUTC ---
[facility] [place] Clinical Impression: Exposure to COVID-19 virus Disposition: Home, Self-Care Condition on Discharge: Good Instructions: DI for COVID-19 (Suspected or Confirmed ), Preventing the Spread of Coronavirus Discharge Instructions Additional Instructions: Drink plenty of fluids. Take tylenol for pain or fever. Return if you begin to have difficulty breathing. Follow up with your regular doctor. GO TO THE ER FOR ANY WORSENING SYMPTOMS Referrals: Merlin Egan MD [Primary Care Provider] - Time of Disposition: 10:01 Medical Decision Making - Medical Records Medical records reviewed: No: I reviewed the patient's medical records. - Dejan Inquiry Pt receiving controlled substance: No Vital Signs: 07/15/20 09:25 07/15/20 10:01 Temperature 97.7 F 97.7 F Temperature Source Oral Pulse Rate 89 Pulse Rate [Right Brachial] 89 Respiratory Rate 20 20 Blood Pressure 134/109 H Blood Pressure [Right Arm] 134/109 H Blood Pressure Mean [Right Arm] 117 Blood Pressure Source [Right Arm] Automatic Cuff Blood Pressure Position [Right Arm] Sitting 02 Sat by Pulse Oximetry 95 Oxygen Delivery Method Room Air Orders (Tests/Meds): ORDERS Category Date Time Status Covid-19 Nasal PCR Sendout P&C Routine Lab 07/15/20 09:30 Received [facility] [place] HPI - General Stated complaint: covid exposure Time Seen by Provider: 07/15/20 09:58 Mode of Arrival: Ambulatory Source of Information: Patient Limitations: No Limitations Description of Symptoms (Recalled from Triage Doc. by RN): COVID TEST D/T EXPOSURE. DENIES SYMPTOMS HEENT Symptoms (Recalled from RN notes): No Resp Symptoms (Recalled from RN notes): No Skin Symptoms (Recalled from RN notes): No MS Symptoms (Recalled from RN notes): No Functional Status (Recalled from RN notes): WNL - History of Present Illness Provider Complaint: He is here with his . They have been exposed to covid-19. He denies any symptoms so far. - Related Data Home Medications Medication Instructions Recorded Confirmed Albuterol Sulfate [Proair Hfa 1 puff IH Q6HP PRN 03/17/18 02/18/20 90mcg/puff Inh] Buprenorphine HCl/Naloxone HCl 2 film SL DAILY 03/17/18 02/18/20 [Suboxone 8 mg-2 mg Sl Film] ibuprofen 200 mg capsule 200 mg PO Q6H PRN 02/18/20 02/18/20 Previous Rx's Medication Instructions Recorded gabapentin 100 mg capsule 100 mg PO TID #90 cap 11/28/19 pantoprazole 40 mg tablet,delayed 40 mg PO ONCE #30 tab 01/19/20 release diazepam 10 mg tablet 10 mg PO DAILY #30 tab 02/18/20 Allergies Allergy/AdvReac Type Severity Reaction Status Date / Time aspirin [ASPIRIN] Allergy Unknown Verified 02/18/20 14:32 piperacillin [From Zosyn] Allergy Verified 02/18/20 14:32 tazobactam [From Zosyn] Allergy Verified 02/18/20 14:32 - Worker's Comp Is this a Worker's Comp case?: No [facility] History - Hepatitis A Screen Drug use history?: No High risk sexual behaviors?: No History of sexually transmitted infection?: No Currently employed?: No Childcare worker?: No Do you have indoor plumbing?: Yes Do you have electricity?: Yes Attestation statement:: This patient has been screened for Hepatitis A risk factors. I have reviewed the patient's past medical history: Yes Medical History: Reports:: Anxiety, Asthma, Atherosclerotic Heart Disease, Coronary Artery Disease, Depression, Gastroesophageal Reflux Disease(GERD), Gastrointestinal Bleed, Lung Disease, Kidney Stones, Palpitations Denies:: Cancer, Diabetes Mellitus Type 1, Diabetes Mellitus Type 2, Home Oxygen, Internal Pacemaker, MRSA, Seizures Other Medical History: Reports: Other. Denies: Blood Transfusion Reaction Laterality Cases: Right: ACL Repair, Bilateral: Arthroscopy Knee, Other Other Surgeries: Yes: Appendectomy, EGD, Other. No: Pacemaker Amputation: No Fractures: No - Social History Smoking Status: Current every day smoker Tobacco Type: cigarettes # Packs/Day (cigarettes):
[2020-07-15 10:01] VITALS: BP 134/109; PULSE 89; RESP 20; TEMP 36.5; O2SAT 95
[2020-07-16 11:13] LABS: Covid-19 Nasal PCR Sendout P&C NEGATIVE
== END 2020-07-15 10:10 | disposition home or self-care (01) ==
PROVIDERS: Emergency Provider Nurse Practitioner Family; PCP Emergency Medicine
DX: Z20.822 Contact with and (suspected) exposure to COVID-19 (principal); F41.8 Other specified anxiety disorders; K21.9 Gastro-esophageal reflux disease without esophagitis; I25.10 Atherosclerotic heart disease of native coronary artery without angina pectoris; J45.909 Unspecified asthma, uncomplicated; F19.11 Other psychoactive substance abuse, in remission; F17.210 Nicotine dependence, cigarettes, uncomplicated; Z79.899 Other long term (current) drug therapy; Z88.8 Allergy status to other drugs, medicaments and biological substances
CPT/HCPCS: G0463; 99202; U0004

== ENCOUNTER 2020-08-23 13:41 | Emergency (ER) | payer MEDICARE, MEDICAID, SELFPAY ==
[2020-08-23 13:50] VITALS: BP 146/91; PULSE 81; RESP 20; TEMP 37; O2SAT 99; BMI 23.7
--- NOTE | 2020-08-23 14:27 | HMH.EDUTC ---
[facility] [place] Clinical Impression: Cellulitis Qualifiers: Site of cellulitis: extremity Site of cellulitis of extremity: lower extremity Laterality: right Qualified Code(s): L03.115 - Cellulitis of right lower limb Disposition: Home, Self-Care Condition on Discharge: Good Instructions: DI for Cellulitis -- Adult, Cellulitis, Clindamycin Additional Instructions: *Start antibiotic(s) immediately and be sure to take as ordered for the FULL length of time although you may be feeling better or start to see improvement in the next 24-48 hours *Monitor closely. Outlined redness so that you can monitor easier. Follow up immediately for new or worsening symptoms including but not limited to redness, swelling, streaking from site fever or chills. *Warm compress 15 minutes 3-4 times day *Never squeeze or pop these on your own. Seek immediate medical attention next time this occurs *Monitor Temp. Tylenol every 4 hours as needed and ibuprofen every 6 hours as needed (as long as your primary care doctor has told you that it is ok to take both. For fever, aches, pain. ER if no less that 101 despite Tylenol and ibuprofen Follow up with your family doctor/primary care physician in the next 48-72 hours if no improvement Return if needed Straight to ER if any worsening of symptoms Prescriptions: Ibuprofen [Ibuprofen 200MG Capsule] 200 mg PO Q6HP PRN #20 cap PRN Reason: Moderate Pain Transmission Status: Pending to [facility] clindamycin HCL [Clindamycin HCl] 300 mg PO Q8H 10 Days #30 cap Transmission Status: Pending to [facility] Mupirocin Calcium [Mupirocin 2% Cream 15gm] 1 applicatio TP TID 10 Days #1 tube Transmission Status: Pending to [facility] Referrals: Christina Jimenez APRN [Primary Care Provider] - As needed (Follow up on if no improvement) Time of Disposition: 14:46 Medical Decision Making - Dejan Inquiry Pt receiving controlled substance: No Dejan was queried for this patient: No Vital Signs: 08/23/20 13:50 08/23/20 14:44 Temperature 98.6 F 98.6 F Temperature Source Oral Pulse Rate 81 Pulse Rate [Right Brachial] 81 Respiratory Rate 20 20 Blood Pressure 146/91 H Blood Pressure [Right Arm] 146/91 H Blood Pressure Mean [Right Arm] 109 Blood Pressure Source [Right Arm] Automatic Cuff Blood Pressure Position [Right Arm] Sitting 02 Sat by Pulse Oximetry 99 Oxygen Delivery Method Room Air Medical Decision Narrative: Patient state that he is unable to take aspirin but has taken and previously been prescribed Ibuprofen in the past without complications or reactions or bleeding [facility] [place] - General Stated complaint: possible spider bite on Rt foot Time Seen by Provider: 08/23/20 14:27 Mode of Arrival: Ambulatory Source of Information: Patient Limitations: No Limitations Description of Symptoms (Recalled from Triage Doc. by RN): PATIENT C/O POSSIBLE SPIDER BITE TO RIGHT 4TH TOE X 3 DAYS. HEENT Symptoms (Recalled from RN notes): No Resp Symptoms (Recalled from RN notes): No Skin Symptoms (Recalled from RN notes): Yes MS Symptoms (Recalled from RN notes): No Functional Status (Recalled from RN notes): WNL - History of Present Illness Provider Complaint: Patient states that he thinks he may have been bitten by a spider on his fourth toe States that it was red and swollen and had bump like area on it and he mashed it and a sac like thing come out of it and for the last couple of days his swelling and redness got worse State that today it was still swollen and hurt so he came in to get it checked - Related Data Home Medications Medication Instructions Recorded Confirmed Albuterol Sulfate [Proair Hfa 1 puff IH Q6HP PRN 03/17/18 02/18/20 90mcg/puff Inh] Buprenorphine HCl/Naloxone HCl 2 film SL DAILY 03/17/18 02/18/20 [Suboxone 8 mg-2 mg Sl Film] ibuprofen 200 mg capsule 200 mg PO Q6H PRN 02/18/20 02/18/20 Previous Rx's Medication Instruct
[2020-08-23 14:44] VITALS: BP 146/91; PULSE 81; RESP 20; TEMP 37; O2SAT 99
== END 2020-08-23 14:50 | disposition home or self-care (01) ==
PROVIDERS: Emergency Provider Nurse Practitioner; PCP Nurse Practitioner Family
DX: L03.115 Cellulitis of right lower limb (principal); R03.0 Elevated blood-pressure reading, without diagnosis of hypertension; F41.8 Other specified anxiety disorders; I25.10 Atherosclerotic heart disease of native coronary artery without angina pectoris; K21.9 Gastro-esophageal reflux disease without esophagitis; F17.210 Nicotine dependence, cigarettes, uncomplicated; Z88.8 Allergy status to other drugs, medicaments and biological substances; Z79.899 Other long term (current) drug therapy
CPT/HCPCS: G0463; 99202

== ENCOUNTER → 2020-12-10 12:31 | Outpatient (CLI) | payer MEDICARE, MEDICAID, SELFPAY ==
--- NOTE | 2020-12-10 13:04 | MR_ITS ---
PROCEDURE INFORMATION: Exam: MR Left Upper Extremity Joint Without Contrast; Shoulder Exam date and time: 12/10/2020 1:04 PM Age: 45 years old Clinical indication: Patient HX: Left shoulder pain, no injury, numbness in fingers TECHNIQUE: Imaging protocol: MR of the Left upper extremity without contrast. Exam focused on the shoulder. COMPARISON: CR XR CHEST 2V 09/15/2019 1:54 AM FINDINGS: Bones and cartilage: Cystic change is identified within the anterosuperior aspect of the humeral head. This is likely degenerative or due to prior trauma. Mild acromioclavicular arthropathy. There is effacement of the tissue planes underlying a downsloping acromion process. Mild marrow edema is visualized within the acromion process and lateral aspect of the clavicle. Mild spurring is identified of the medial aspect of the humeral head, consistent with glenohumeral arthropathy. Joint spaces: There is a multiloculated cystic collection of fluid posterosuperior to the glenoid process in the region of the spinoglenoid notch. This measures 1.4 x 0.6 x 0.7 cm. This finding can be associated with denervation, although there is no edema or atrophy associated with the infraspinatus muscle. Differential considerations include ganglion cysts and paralabral cyst. Glenoid labrum: Increased signal intensity within the superior aspect of the labrum suggestive of labral tear. A tear is visualized of the posterior aspect of the labrum, with a 0.3 x 0.2 cm paralabral cyst. Increased signal intensity is identified within the anterior and inferior aspects of the labrum, and additional labral tear is considered. Supraspinatus tendon: The tendinosis of the supraspinatus tendon, with distal partial tear. Infraspinatus tendon: Tendinosis of the infraspinatus tendon, with partial tear. Subscapularis tendon: No evidence of tear. Teres minor tendon: No evidence of tear. Tendon of biceps brachii: Heterogeneous signal intensity of the long head of the biceps tendon, consistent with tendinosis. Glenohumeral ligaments: There is increased signal intensity of the attachment of the inferior glenohumeral ligament at the glenoid process, and partial tear is suggested. Muscles: No visualized acute abnormality. Soft tissues: Unremarkable. Lymph nodes: A nonspecific enlarged axillary lymph node is seen measuring 2.5 cm in length, with a fatty hilum. IMPRESSION: 1. Tendinosis and partial tears of the supraspinatus and infraspinatus tendons. 2. Tendinosis of the long head of the biceps tendon. 3. Labral tears. 4. Mild acromioclavicular arthropathy. There is effacement of the tissue planes underlying a downsloping acromion process. Mild marrow edema is visualized within the acromion process and lateral aspect of the clavicle. 5. There is a multiloculated cystic collection of fluid posterosuperior to the glenoid process in the region of the spinoglenoid notch. This measures 1.4 x 0.6 x 0.7 cm. 6. Cystic change is identified within the anterosuperior aspect of the humeral head. This is likely degenerative or due to prior trauma. 7. Suggested partial tear of the inferior glenohumeral ligament. 8. Additional findings described above.
== END ==
PROVIDERS: PCP Nurse Practitioner Family; Visit Provider Nurse Practitioner Family
DX: M25.512 Pain in left shoulder (principal); M62.81 Muscle weakness (generalized); R20.2 Paresthesia of skin
CPT/HCPCS: 73221

== ENCOUNTER 2021-03-01 13:24 | Emergency (ER) | payer MEDICARE, MEDICAID, SELFPAY ==
[2021-03-01 14:59] VITALS: BP 121/86; PULSE 80; RESP 16; TEMP 36.7; O2SAT 98; BMI 22.8
[2021-03-01 15:11] VITALS: BP 121/86; PULSE 80; RESP 16; TEMP 36.7
--- NOTE | 2021-03-01 15:11 | HMH.EDUTC ---
[facility] [place] Clinical Impression: Exposure to COVID-19 virus Sinusitis Qualifiers: Sinusitis location: unspecified location Chronicity: acute Recurrence: non-recurrent Qualified Code(s): J01.90 - Acute sinusitis, unspecified Disposition: Home, Self-Care Condition on Discharge: Good Instructions: Sinusitis, DI for Sinusitis, DI for COVID-19 (Suspected or Confirmed ), Preventing the Spread of Coronavirus Discharge Instructions Additional Instructions: Drink plenty of fluids. Take tylenol or ibuprofen for pain or fever. Take the medications as directed. Follow up with your regular doctor. GO TO THE ER FOR ANY WORSENING SYMPTOMS Quarantine until you know the results of your covid-19 test. If it is positive, the health department should call you and give you further instructions about your length of Quarantine and other things. Notify your school or workplace of your results and follow their instructions regarding return to work/school. Prescriptions: predniSONE [Prednisone 20mg Tab] 20 mg PO BID 4 Days #8 tab Transmission Status: Received by [facility] Benzonatate [Tessalon Perle 100mg Cap] 100 mg PO TIDP PRN #30 cap PRN Reason: Cough Transmission Status: Received by [facility] Azithromycin [Z-Epifanio 250mg Tab*] 250 mg PO UD DOSE PK #6 tab Transmission Status: Received by [facility] Referrals: Christina Jimenez APRN [Primary Care Provider] - Forms: Work/School Release Time of Disposition: 15:52 Medical Decision Making - Medical Records Medical records reviewed: No: I reviewed the patient's medical records. - Dejan Inquiry Pt receiving controlled substance: No Vital Signs: 03/01/21 14:59 03/01/21 15:11 Temperature 98.1 F 98.1 F Temperature Source Oral Pulse Rate 80 Pulse Rate [Left] 80 Respiratory Rate 16 16 Blood Pressure 121/86 Blood Pressure [Right Arm] 121/86 Blood Pressure Mean [Right Arm] 97 02 Sat by Pulse Oximetry 98 - Lab Data Lab results reviewed: Yes: I reviewed the patient's lab results. Lab Results 03/01/21 15:46: Strep Scn Rapid Clinic Negative Orders (Tests/Meds): ORDERS Category Date Time Status Strep Screen Confirmation Stat Micro 03/01/21 15:46 Received [facility] [place] HPI - General Stated complaint: Covid test, throat, cough, fev, sob, head, russell, a Time Seen by Provider: 03/01/21 15:12 Mode of Arrival: Ambulatory Source of Information: Patient Limitations: No Limitations Description of Symptoms (Recalled from Triage Doc. by RN): pt states he is feeling like crap, fever, chills, n/v, sore throat, RO, body aches, nasal congestion and drainage x2 days. HEENT Symptoms (Recalled from RN notes): Yes (sore throat, RO, nasal drainage/congestion) Resp Symptoms (Recalled from RN notes): No Skin Symptoms (Recalled from RN notes): No MS Symptoms (Recalled from RN notes): No Functional Status (Recalled from RN notes): myalgia - History of Present Illness Provider Complaint: He states that he has had chilling, feeling bad, sore throat and a cough for the past 2 days. He has been vaccinated against covid several months ago with a 2 shot regimen. - Related Data Home Medications Medication Instructions Recorded Confirmed Albuterol Sulfate [Proair Hfa 1 puff IH Q6HP PRN 03/17/18 02/18/20 90mcg/puff Inh] Buprenorphine HCl/Naloxone HCl 2 film SL DAILY 03/17/18 02/18/20 [Suboxone 8 mg-2 mg Sl Film] ibuprofen 200 mg capsule 200 mg PO Q6H PRN 02/18/20 02/18/20 Previous Rx's Medication Instructions Recorded gabapentin 100 mg capsule 100 mg PO TID #90 cap 11/28/19 pantoprazole 40 mg tablet,delayed 40 mg PO ONCE #30 tab 01/19/20 release diazepam 10 mg tablet 10 mg PO DAILY #30 tab 02/18/20 Ibuprofen [Ibuprofen 200MG Capsule] 200 mg PO Q6HP PRN #20 cap 08/23/20 Mupirocin Calcium [Mupirocin 2% 1 applicatio TP TID 10 Days #1 tube 08/23/20 Cream 15gm] clindamycin HCL [Clindamycin HCl] 3
[2021-03-01 15:48] LABS: UTC Strep Screen (Rapid) Negative (Negative)
--- NOTE | 2021-03-02 13:38 | PC.NURSE ---
pt notified of positive covid test results
== END 2021-03-01 16:10 | disposition home or self-care (01) ==
PROVIDERS: Emergency Provider Nurse Practitioner Family; PCP Nurse Practitioner Family
DX: J01.90 Acute sinusitis, unspecified (principal); U07.1 COVID-19; I25.10 Atherosclerotic heart disease of native coronary artery without angina pectoris; K21.9 Gastro-esophageal reflux disease without esophagitis; F17.210 Nicotine dependence, cigarettes, uncomplicated
CPT/HCPCS: G0463; 87880; 99203; U0003

== ENCOUNTER 2021-06-05 07:20 | Emergency (ER) | payer MEDICARE, MEDICAID, SELFPAY ==
[2021-06-05 07:35] VITALS: BP 158/98; PULSE 78; RESP 18; TEMP 36.7; O2SAT 95; BMI 23.6
--- NOTE | 2021-06-05 07:41 | XR_ITS ---
PROCEDURE INFORMATION: Exam: XR Left Ankle Exam date and time: 06/05/2021 7:41 AM Age: 45 years old Clinical indication: Pain; Ankle; Left; Additional info: Fell on frosted deck TECHNIQUE: Imaging protocol: XR Left ankle. Views: 1 or 2 views. COMPARISON: No relevant prior studies available. FINDINGS: Bones/joints: Fracture, distal fibular metaphysis. Separate ossific density inferior to the medial malleolus appearing nonacute. Soft tissues: Lateral compartment swelling. IMPRESSION: 1. Distal fibular metaphyseal fracture with lateral compartment swelling. 2. Probable old dystrophic or posttraumatic ossification inferior to the medial malleolus.
--- NOTE | 2021-06-05 07:41 | XR_ITS ---
PROCEDURE INFORMATION: Exam: XR Pelvis Exam date and time: 06/05/2021 7:41 AM Age: 45 years old Clinical indication: Injury or trauma; Fall; Blunt trauma (contusions or hematomas); Bilateral; Pelvic region; Injury date: 06/05/21; Injury details: Fell on frosted deck TECHNIQUE: Imaging protocol: XR pelvis. Views: 1 or 2 view. COMPARISON: CT ABDOMEN PELVIS W CON 09/15/2019 2:07 AM FINDINGS: Bones/joints: Unremarkable. No acute fracture. Soft tissues: Unremarkable. IMPRESSION: No acute findings.
--- NOTE | 2021-06-05 07:44 | CT_ITS ---
PROCEDURE INFORMATION: Exam: CT Lumbar Spine Without Contrast Exam date and time: 06/05/2021 7:44 AM Age: 45 years old Clinical indication: Low back pain; Additional info: Fell on frosted deck TECHNIQUE: Imaging protocol: Computed tomography images of the lumbar spine without contrast. Radiation optimization: All CT scans at this facility use at least one of these dose optimization techniques: automated exposure control; mA and/or kV adjustment per patient size (includes targeted exams where dose is matched to clinical indication); or iterative reconstruction. COMPARISON: CT ABDOMEN PELVIS W CON 09/15/2019 2:07 AM FINDINGS: Vertebrae: No acute fracture. Normal alignment. Prior L1-L2 fusion with subsequent removal of hardware. Multilevel spondylosis, moderate at L1-L2, with subtle convex right lower lumbar scoliosis. Soft tissues: Multiple bilateral nonobstructing renal calculi. Atheromatous vascular calcification. IMPRESSION: No acute pathology. Prior L1-L2 fusion with subsequent removal of hardware. Multilevel spondylosis, moderate at L1-L2, with subtle convex right lower lumbar scoliosis. Other nonacute findings above.
--- NOTE | 2021-06-05 07:46 | PC.NURSE ---
Spoke with Chrystal kirby [facility]
[2021-06-05 07:51] VITALS: BP 146/110; PULSE 85; RESP 16; O2SAT 95
[2021-06-05 08:00] VITALS: BP 157/104; PULSE 84; RESP 17; O2SAT 95
--- NOTE | 2021-06-05 08:18 | PC.NURSE ---
Pt returned from rad
--- NOTE | 2021-06-05 08:44 | HMH.EDLOEX ---
ED Disposition Clinical Impression: Fracture of distal end of fibula, Ankle fracture Disposition: Home, Self-Care Condition on Discharge: Good Instructions: Ankle Fracture Additional Instructions: Please follow-up with orthopedic surgeon Dr. Chowdhury in 1 to 2 days. Please utilize the walking boot for comfort and mobility. May also take Tylenol and ibuprofen together for pain. Please elevate your leg and use ice for swelling. Please return back to the emergency department for any concerning symptoms such as increased swelling, worsening pain, worsening tightness or any other concerning symptoms. Referrals: Christina Jimenez APRN [Primary Care Provider] - Gilberto Chowdhury MD [Staff Physician] - Time of Disposition: 09:05 - Critical Care Critical Care Time: No Attestation: On 06/05/21, the high probability of a clinically significant, sudden or life threatening deterioration of the following system(s) required my full and direct attention, intervention and personal management. The time I documented below is in addition to time spent performing reported procedures but includes the following listed in this critical care notation. Medical Decision Making - Medical Records Medical records reviewed: Yes: I reviewed the patient's medical records. - Dejan Inquiry Pt receiving controlled substance: No Vital Signs: 06/05/21 07:35 06/05/21 07:51 06/05/21 08:00 Temperature 98.0 F Temperature Source Oral Pulse Rate 85 84 Pulse Rate [Right Radial] 78 Respiratory Rate 18 16 17 Blood Pressure 146/110 H 157/104 H Blood Pressure [Right Arm] 158/98 H Blood Pressure Mean 127 124 Blood Pressure Mean [Right Arm] 118 Blood Pressure Source Blood Pressure Source [Right Arm] Automatic Cuff Blood Pressure Position Blood Pressure Position [Right Arm] Sitting 02 Sat by Pulse Oximetry 95 95 95 Oxygen Delivery Method Room Air 06/05/21 09:32 Temperature 98.3 F Temperature Source Oral Pulse Rate 84 Pulse Rate [Right Radial] Respiratory Rate 18 Blood Pressure 152/86 H Blood Pressure [Right Arm] Blood Pressure Mean Blood Pressure Mean [Right Arm] Blood Pressure Source Automatic Cuff Blood Pressure Source [Right Arm] Blood Pressure Position Supine Blood Pressure Position [Right Arm] 02 Sat by Pulse Oximetry Oxygen Delivery Method Room Air - Lab Data Lab results reviewed: Yes: I reviewed the patient's lab results. Orders (Tests/Meds): ED MEDICATIONS Discontinued Medications Generic Name Dose Route Start Last Admin Trade Name Freq PRN Reason Stop Dose Admin Acetaminophen 1,000 mg 06/05/21 07:44 06/05/21 07:45 Acetaminophen 500mg Tab PO 06/05/21 07:45 1,000 mg ONCE ONE Administration Medical Decision Narrative: Mr. Dave is a 45-year-old male with no significant past medical history who presents to the emergency department with isolated left ankle pain following a mechanical fall. Patient is afebrile and hemodynamically stable on arrival neurovascularly intact. Patient has significant swelling along the lateral and medial malleolus. Full range of motion but significant pain. Patient is given Tylenol and ibuprofen for pain control. Differentials to consider but not limited to include; fractures, dislocations, sprains/ligamentous/tendon injury. X-ray of the ankle and foot are obtained results are remarkable for a distal fibula fracture. Curbside discussion with orthopedic surgeon is had given concern for swelling. Recommendations from orthopedics is to place patient in a walking boot and have him follow-up with Dr. Chowdhury in clinic within the next week. Patient is instructed to follow-up with orthopedic surgeon Dr. Chowdhury in the next 1 to 2 days and is provided a walking boot and crutches. Patient is counseled on the importance of monitoring symptoms and increasing swelling. Patient will return for any concerning symptoms such as worsening pain, worsening swelling, worsening ti
--- NOTE | 2021-06-05 08:54 | PC.NURSE ---
has been paged.
--- NOTE | 2021-06-05 08:56 | PC.NURSE ---
on the phone with Dr. Miller.
[2021-06-05 09:32] VITALS: BP 152/86; PULSE 84; RESP 18; TEMP 36.8; O2SAT 95
== END 2021-06-05 09:32 | disposition home or self-care (01) ==
PROVIDERS: Emergency Provider Student in an Organized Health Care Education/Training Program; PCP Nurse Practitioner Family
DX: S82.832A Other fracture of upper and lower end of left fibula, initial encounter for closed fracture (principal); W01.0XXA Fall on same level from slipping, tripping and stumbling without subsequent striking against object, initial encounter; Y92.89 Other specified places as the place of occurrence of the external cause; K21.9 Gastro-esophageal reflux disease without esophagitis; F41.9 Anxiety disorder, unspecified; F17.210 Nicotine dependence, cigarettes, uncomplicated
CPT/HCPCS: 29515; 72131; 72170; 73600; 99283

== ENCOUNTER → 2021-07-08 10:50 | Outpatient (CLI) | payer MEDICARE, MEDICAID, SELFPAY ==
--- NOTE | 2021-07-08 11:02 | XR_ITS ---
FINAL REPORT CLINICAL HISTORY: Left ankle fracture Lt lateral ankle pain and swelling post fall 06/21 COMPARISON: June 05, 2021 FINDINGS: LEFT ANKLE Three views of the left ankle were obtained. There is a subacute, oblique fracture of the distal fibular metaphysis. There is callus formation at the fracture site. There is a chronic calcification inferior to the medial malleolus. There is a chronic calcification adjacent to the distal talus. The joint spaces and mortise are intact. There is medial and lateral soft tissue swelling. IMPRESSION: Subacute distal fibular fracture with callus formation. Medial and lateral ankle soft tissue swelling. Reviewed, Interpreted and Dictated by Evan Smith III, MD Transcribed by Viv Quijano Authenticated by Evan Smith III, MD on 07/08/2021 12:00:31 PM [facility]
== END ==
PROVIDERS: PCP Nurse Practitioner Family; Visit Provider Orthopaedic Surgery
DX: S82.892A Other fracture of left lower leg, initial encounter for closed fracture (principal)
CPT/HCPCS: 73610

== ENCOUNTER → 2021-08-05 11:14 | Outpatient (CLI) | payer MEDICARE, MEDICAID, SELFPAY ==
--- NOTE | 2021-08-05 11:21 | XR_ITS ---
FINAL REPORT CLINICAL HISTORY: left ankle pain FINDINGS: LEFT ANKLE: Three views of the left ankle were obtained. There is a subacute fracture of the distal fibular metaphysis. The bony alignment is stable. There is evidence of callus formation, stable. There are chronic calcifications inferior to the medial and the lateral malleoli. There is soft tissue swelling. There is a probable loose body anterior to the distal tibia, stable. There is a loose body superior to the talonavicular joint, stable. IMPRESSION: Subacute distal fibular fracture with evidence of healing, stable. Reviewed, Interpreted and Dictated by Evan Smith III, MD Transcribed by Johnson Mckenzie Authenticated by Evan Smith III, MD on 08/05/2021 12:47:[address] [facility]
== END ==
PROVIDERS: PCP Nurse Practitioner Family; Visit Provider Orthopaedic Surgery
DX: S82.832A Other fracture of upper and lower end of left fibula, initial encounter for closed fracture (principal)
CPT/HCPCS: 73610

== ENCOUNTER 2021-10-27 18:59 | Emergency (ER) | payer MEDICARE, MEDICAID, SELFPAY ==
[2021-10-27 19:00] VITALS: BP 109/93; PULSE 106; RESP 18; TEMP 36.7; O2SAT 99; BMI 20.8
--- NOTE | 2021-10-27 19:17 | CT_ITS ---
PROCEDURE INFORMATION: Exam: CT Thoracic Spine With Contrast Exam date and time: 10/27/2021 7:30 PM Age: 46 years old Clinical indication: Pain in thoracic spine; Prior surgery; Additional info: Back pain TECHNIQUE: Imaging protocol: Computed tomography images of the thoracic spine with intravenous contrast. Radiation optimization: All CT scans at this facility use at least one of these dose optimization techniques: automated exposure control; mA and/or kV adjustment per patient size (includes targeted exams where dose is matched to clinical indication); or iterative reconstruction. Contrast material: ISOVUE; Contrast volume: 50 ml; Contrast route: IV; COMPARISON: CT LUMBAR SPINE WO CON 06/05/2021 8:02 AM FINDINGS: Vertebrae: Postsurgical changes of the upper lumbar spine. Discs/Spinal canal/Neural foramina: Degenerative spondylosis, rotoscoliosis and facet arthropathy within the spine. Other bones/joints: Diffuse bone demineralization. Soft tissues: Unremarkable. Lungs: 5 mm ground-glass nodule right lower lobe lung. Patchy density in the left lung base measures approximately 2 cm[address] a dedicated [address] of the chest for further characterization of the lung parenchyma. Mediastinum: Calcified granulomas within the mediastinum and hilar structures. Liver: Hepatic steatosis. IMPRESSION: 1. No evidence of acute displaced cortical disruption or spondylolisthesis is identified on CT of the thoracic spine. 2. Postoperative changes of the upper lumbar spine. 3. Diffuse degenerative disc and facet disease with rotoscoliosis. 4. Hepatic steatosis. 5. Postsurgical changes of the upper lumbar spine. 6. 5 mm ground-glass nodule right lower lobe lung. Patchy density in the left lung base measures approximately 2 cm[address] Recommend a dedicated [address] of the chest for further characterization of the lung parenchyma.
--- NOTE | 2021-10-27 19:17 | CT_ITS ---
PROCEDURE INFORMATION: Exam: CT Lumbar Spine With Contrast Exam date and time: 10/27/2021 7:35 PM Age: 46 years old Clinical indication: Low back pain; Prior surgery TECHNIQUE: Imaging protocol: Computed tomography images of the lumbar spine with intravenous contrast. Radiation optimization: All CT scans at this facility use at least one of these dose optimization techniques: automated exposure control; mA and/or kV adjustment per patient size (includes targeted exams where dose is matched to clinical indication); or iterative reconstruction. Contrast material: ISOVUE; Contrast volume: 50 ml; Contrast route: IV; COMPARISON: CT LUMBAR SPINE WO CON 06/05/2021 8:02 AM FINDINGS: Vertebrae: Remodeling of the inferior endplate L1 and the majority of the superior aspect of L2 which appears to be due to remote fracture. There are pedicle screw defects at L1, L2 and L3 from prior surgical fixation and there is partial through guevara of the posterior elements at these levels. Discs/Spinal canal/Neural foramina: Circumferential disc bulge, ligamentum flavum hypertrophy and degenerative facet arthropathy result in rather severe central spinal canal stenosis at L2-L3, L3-L4 and L4-L5. Posterolateral disc and osteophyte complex and degenerative facet arthropathy result in neural foraminal canal stenosis bilaterally at L2-L3, L3-L4, L4-L5 and L5-S1. Sacrum/coccyx: Osteophytosis, eburnation and vacuum phenomenon of the sacroiliac articulating surfaces. Liver: Liver is severely hypoattenuating but without a focal mass lesion within the portions included on this exam. Gallbladder and bile ducts: Mild dilation of the common bile duct to 7 mm. No evidence of cholelithiasis or calcific choledocholithiasis. Further workup as clinically indicated. Kidneys and ureters: Tiny Bosniak 1 cysts appear present in the bilateral kidneys. These are too small to fully characterize. Appendix: Appendix appears to be surgically absent. Soft tissues: Unremarkable. Other findings: Mild rotoscoliosis. IMPRESSION: 1. No evidence of acute fracture or spondylolisthesis is identified on CT of the lumbar spine. 2. Hepatic steatosis. 3. Pedicle screw defects at L1, L2 and L3 from prior surgical fixation and there is partial fusion of the posterior elements at these levels. 4. Circumferential disc bulge, ligamentum flavum hypertrophy and degenerative facet arthropathy result in rather severe central spinal canal stenosis at L2-L3, L3-L4 and L4-L5. 5. Posterolateral disc and osteophyte complex and degenerative facet arthropathy result in neural foraminal canal stenosis bilaterally at L2-L3, L3-L4, L4-L5 and L5-S1. 6. Mild dilation of the common bile duct to 7 mm. No evidence of cholelithiasis or calcific choledocholithiasis. Further workup as clinically indicated. 7. Mild rotoscoliosis. 8. Tiny Bosniak 1 cysts appear present in the bilateral kidneys. These are too small to fully characterize.
[2021-10-27 19:21] LABS: Coronavirus 19, PCR Not Detected (NotDetected); Influenza A, PCR Not Detected (NotDetected); Influenza B, PCR Not Detected (NotDetected)
--- NOTE | 2021-10-27 19:21 | XR_ITS ---
PROCEDURE INFORMATION: Exam: XR Chest Exam date and time: 10/27/2021 7:36 PM Age: 46 years old Clinical indication: Cough TECHNIQUE: Imaging protocol: XR of the chest. Views: 1 view. COMPARISON: CR XR CHEST 2V 09/15/2019 1:54 AM FINDINGS: Lungs: Mild hyperinflation of the lungs. Scattered subcentimeter calcified granulomas within the lung parenchyma. Pleural spaces: Blunting of the bilateral costophrenic angles may reflect pleural thickening or small pleural effusions. Heart/Mediastinum: Unremarkable. No cardiomegaly. Bones/joints: Unremarkable. IMPRESSION: Small pleural effusions or pleural thickening with hyperinflation of the lungs.
[2021-10-27 19:31] LABS: Strep Scrn Group A (Rapid) Negative (Negative)
--- NOTE | 2021-10-27 19:52 | HMH.EDGENADL ---
ED Disposition Clinical Impression: Back pain Disposition: Home, Self-Care Condition on Discharge: Good Referrals: Christina Jimenez APRN [Primary Care Provider] - - Critical Care Critical Care Time: No Attestation: On 10/27/21, the high probability of a clinically significant, sudden or life threatening deterioration of the following system(s) required my full and direct attention, intervention and personal management. The time I documented below is in addition to time spent performing reported procedures but includes the following listed in this critical care notation. Medical Decision Making - Medical Records Medical records reviewed: Yes: I reviewed the patient's medical records. - Dejan Inquiry Pt receiving controlled substance: Yes Dejan was queried for this patient: No Risks and benefits of using a controlled substance: were discussed with pt by me Vital Signs: 10/27/21 19:00 Temperature 98.0 F Temperature Source Oral Pulse Rate [Right] 106 H Respiratory Rate 18 Blood Pressure [Right Arm] 109/93 L Blood Pressure Mean [Right Arm] 98 02 Sat by Pulse Oximetry 99 - Lab Data Lab results reviewed: Yes: I reviewed the patient's lab results. Lab Results 10/27/21 19:11: Group A Strep Rapid Negative 10/27/21 19:11: SARS-CoV-2 (PCR) Not detected, Influenza A Untype (PCR) Not detected, Influenza Type B (PCR) Not detected 10/27/21 19:27: WBC 8.0, RBC 5.01, Hct 52.5 H, MCV 104.8 H, MCH 36.7 H, MCHC 35.0, RDW 16.8, Plt Count 214, MPV 8.2, Neut % (Auto) 67.4, Lymph % (Auto) 22.6, [place] % (Auto) 8.4, Eos % (Auto) 1.0, Baso % (Auto) 0.6, Neut # (Auto) 5.4, Lymph # (Auto) 1.8, [place] # (Auto) 0.7, Eos # (Auto) 0.1, Baso # (Auto) 0.1 10/27/21 19:27: Sodium 133 L, Potassium 2.6 L*, Chloride 86 L, Carbon Dioxide 39 H, Anion Gap 10.6, BUN 13, Creatinine 0.70, Estimated Creat Clear 111, Estimated GFR 121, Est GFR ( Amer) 146, Glucose 137 H, Calcium 9.5, Total Bilirubin 2.2 H, AST 148 H, ALT 23, Alkaline Phosphatase 192 H, C-Reactive Protein 42.7 H, Total Protein 8.2, Albumin 3.9, Globulin 4.3 H, Albumin/Globulin Ratio 0.9 L 10/27/21 19:27: Lactate 1.5 Result diagrams: 10/27/21 19:27 10/27/21 19:27 Orders (Tests/Meds): ED MEDICATIONS Discontinued Medications Generic Name Dose Route Start Last Admin Trade Name Freq PRN Reason Stop Dose Admin Iopamidol 100 ml 10/27/21 19:37 10/27/21 19:38 Iopamidol-370 (76%);100ml Bottle IV 10/27/21 19:38 100 ml ONCE ONE Administration Potassium Chloride 40 meq 10/27/21 20:19 10/27/21 20:23 Potassium Chloride 20meq Tab PO 10/27/21 20:20 40 meq ONCE ONE Administration Sodium Chloride 10 ml 10/27/21 19:37 10/27/21 19:38 Sodium Chloride 0.9% 10ml Syr (Rad Only) IV 10/27/21 19:38 10 ml ONCE ONE Administration ORDERS Category Date Time Status Complete Blood Count Auto Diff Stat Lab 10/27/21 19:27 Results Erythrocyte Sedimentation Rate Stat Lab 10/27/21 19:27 Results Blood Culture Stat Micro 10/27/21 19:27 Received Strep Screen Confirmation Stat Micro 10/27/21 19:11 Received Medical Decision Narrative: Patient is a 46-year-old male with past medical history of IV drug use on Suboxone presenting to the ED with back pain, myalgias, arthralgias. Patient is awake, alert, not in acute distress. Patient is a medically stable, afebrile. Patient's physical exam is remarkable for tenderness to palpation of the mid thoracic spine. Differential includes but not limited to viral syndrome, viral respiratory illness, spinal abscess, epidural abscess, bacteremia. Given this a CBC, CMP, ESR, CRP is performed. Blood cultures is performed. Chest x-ray, CT scan of the thoracic, lumbar spine is performed. Patient's lab work is unremarkable for leukocytosis, patient CRP is very mildly elevated. CT scans are unremarkable, no signs of inflammation or fluid pockets noted on the CT scans. Patient continues to feel well here. This point patient is sta
[2021-10-27 20:06] LABS: Basophils # 0.1 K/mm3 (0-0.2); Basophils % 0.6 % (0.1-2.0); Chloride 86 mmol/L (98-107); Eosinophils # 0.1 K/mm3 (0.0-0.4); Hematocrit 52.5 % (42.0-52.0); Lymphocytes # 1.8 K/mm3 (0.7-4.5); Lymphocytes % 22.6 % (10-50); Mean Corpuscular Hemoglobin 36.7 pg (27.0-31.2); Mean Corpuscular Volume 104.8 fl (80-94); Mean Platelet Volume 8.2 fl (7.4-10.4); Monocytes # 0.7 K/mm3 (0.1-1.0); Monocytes % 8.4 % (1.7-9.3); Neutrophils # 5.4 K/mm3 (1.8-7.8); Neutrophils % 67.4 % (37.0-80.0); Platelet Count 214 K/mm3 (142-424); Red Blood Count 5.01 M/mm3 (4.60-6.20); Red Cell Distribution Width 16.8 % (11.5-17.5); Sodium 133 mmol/L (136-145)
[2021-10-27 20:09] LABS: Alanine Aminotransferase 23 U/L (12-78); Albumin Level 3.9 g/dl (3.5-5.0); Albumin/Globulin Ratio 0.9 (1.1-1.8); Alkaline Phosphatase 192 U/L (38-126); Anion Gap 10.6 mEq/L (5-15); Aspartate Amino Transferase 148 U/L (17-59); Bilirubin,Total 2.2 mg/dl (0.2-1.3); Blood Urea Nitrogen 13 mg/dl (9-20); Carbon Dioxide 39 mmol/L (22.0-30.0); Creatinine Clearance Estimated 111 mL/min (50-200); Estimated Glomerular Filt Rate 121 ml/min (>60); GFR (African American) 146 ML/MIN (>60); Globulin 4.3 g/dL (1.3-3.2); Total Protein,Serum 8.2 g/dl (6.3-8.2)
[2021-10-27 20:10] LABS: Calcium 9.5 mg/dl (8.4-10.2); Glucose 137 mg/dl (74-100)
[2021-10-27 20:11] LABS: Lactic Acid 1.5 mmol/L (0.7-2.1)
[2021-10-27 20:15] LABS: C-Reactive Protein 42.7 mg/L (0-4)
[2021-10-27 20:18] LABS: Potassium 2.6 mmoL/L (3.5-5.1)
--- NOTE | 2021-10-27 20:18 | PC.NURSE ---
received critical potassium result. new order noted.
[2021-10-27 20:46] VITALS: BP 142/93; PULSE 89; RESP 19; TEMP 36.6; O2SAT 98
[2021-10-27 20:48] LABS: Erythrocyte Sedimentation Rate 15 mm/hr (0-15)
[2021-10-27 20:50] LABS: Hemoglobin 18.4 g/dL (14.1-18.0)
== END 2021-10-27 20:48 | disposition home or self-care (01) ==
PROVIDERS: Emergency Provider Emergency Medicine; PCP Nurse Practitioner Family
DX: M54.50 Low back pain, unspecified (principal); R05.1 Acute cough; R51.9 Headache, unspecified; K21.9 Gastro-esophageal reflux disease without esophagitis; F17.210 Nicotine dependence, cigarettes, uncomplicated
CPT/HCPCS: 71045; 72129; 72132; 80053; 83605; 85025; 85651; 86140; 87040; 87430; 99284; C9803; Q9967; U0003; U0005

== ENCOUNTER 2022-04-10 17:10 | Emergency (ER) | payer MEDICARE, MEDICAID, SELFPAY ==
--- NOTE | 2022-04-10 18:57 | CT_ITS ---
PROCEDURE INFORMATION: Exam: CT Abdomen And Pelvis Without Contrast Exam date and time: 04/10/2022 7:33 PM Age: 46 years old Clinical indication: Abdominal pain; Flank; Left; Additional info: Concern for nephrolitiasis TECHNIQUE: Imaging protocol: Computed tomography of the abdomen and pelvis without contrast. Radiation optimization: All CT scans at this facility use at least one of these dose optimization techniques: automated exposure control; mA and/or kV adjustment per patient size (includes targeted exams where dose is matched to clinical indication); or iterative reconstruction. COMPARISON: CT ABDOMEN PELVIS W CON 09/15/2019 2:07 AM FINDINGS: Tubes, catheters and devices: None noted. Lungs: Lung bases appear clear. Heart: No significant coronary calcifications. No cardiomegaly. No significant pericardial effusion. Liver: Severe fatty liver. No mass. Gallbladder and bile ducts: Normal. No calcified stones. No ductal dilation. Pancreas: Normal. No ductal dilation. Spleen: Normal. No splenomegaly. Adrenal glands: Normal. No mass. Kidneys and ureters: Multiple nonobstructive right renal caliceal calcifications. Double-J stent in place in the left collecting system. Multiple nonobstructive left midpole and lower pole caliceal calcifications. No hydronephrosis. Stomach and bowel: Unremarkable. No obstruction. No mucosal thickening. Appendix: No evidence of appendicitis. Intraperitoneal space: Unremarkable. No free air. No significant fluid collection. Retroperitoneal space: No significant retroperitoneal inflammatory changes are noted. Vasculature: Unremarkable. No abdominal aortic aneurysm. Lymph nodes: Unremarkable. No enlarged lymph nodes. Urinary bladder: Unremarkable as visualized. Reproductive: Unremarkable as visualized. Bones/joints: Disc space narrowing L1-L2. Stable osseous findings at L2, likely hemangioma. No acute fracture. Soft tissues: Unremarkable. IMPRESSION: 1. Multiple nonobstructive caliceal renal calcifications bilaterally. 2. Double-J stent in the left collecting system in good position. 3. Severe fatty liver.
[2022-04-10 19:11] VITALS: BP 188/120; PULSE 135; RESP 20; TEMP 36.4; O2SAT 96; BMI 20.5
--- NOTE | 2022-04-10 19:16 | HMH.EDGENADL ---
Discharge Plan Disposition Patient Disposition: Home, Self-Care Condition: Fair Prescriptions Prescriptions: New ciprofloxacin HCl 750 mg tablet 750 mg PO BID Qty: 20 0RF ketorolac 10 mg tablet 10 mg PO Q6H 5 Days Qty: 20 0RF No Action diazepam 10 mg tablet 10 mg PO DAILY Qty: 30 2RF gabapentin 100 mg capsule 100 mg PO TID Qty: 90 2RF pantoprazole 40 mg tablet,delayed release (DR/EC) 40 mg PO ONCE Qty: 30 5RF albuterol sulfate 90 MCG HFA aerosol inhaler 1 puff IH Q6HP PRN (Reason: Shortness Of Breath) buprenorphine-naloxone 8 MG-2 film 2 film SL DAILY mupirocin calcium 15 GM cream 1 applicatio TP TID 10 Days Qty: 1 0RF ibuprofen 200 MG capsule 200 mg PO Q6HP PRN (Reason: Moderate Pain) Qty: 20 0RF benzonatate 100 MG capsule 100 mg PO TIDP PRN (Reason: Cough) Qty: 30 0RF Referrals Follow up/Referrals: Merlin Egan MD [Primary Care Provider] - See instructions Activity Restrictions/Add. Instructions Additional Instructions/Restrictions: Please follow-up with your urologist. They should call you to schedule but I would call them also tomorrow to schedule follow-up. Clinical Impressions Clinical Impression: Acute UTI Instructions Patient Instructions: DI for Acute Abdominal Pain Discharge ED Provider: Tenzin Martinez General Adult HPI General Chief complaint: Abdominal Pain Stated complaint: possible kidney stones, passing blood, vomiting Time Seen by Provider: 04/10/22 17:20 Mode of Arrival: Ambulatory Source of Information: Patient Limitations: No Limitations Description of Symptoms (Recalled from ER Triage Doc. by RN): Pt states he think she has kidney stones. Pt has hx of stones with stenting last month according to pt. Pt has trouble staying in place and rates his pain 10 out of 10. Pt says pain is in both flanks and radiates to his LLQ and scrotum. He denies scrotal swelling. He endorses blood in urine as well. Denies N/V/D or fevers. History of Present Illness HPI narrative: Patient is a 46-year-old male who presents with concern for right-sided flank pain. He states that he has a history of kidney stones and actually has a stent on the left side that was placed about 3 weeks ago. He says he started to get cute onset of right flank pain yesterday that is gotten progressively worse. He says that it is now a 10 out of 10. His pain radiates from his right flank into his groin. He says that his urine is also full of blood. He says that he cannot get into a comfortable position. He denies any nausea or vomiting. Denies any scrotal swelling. Denies any chest pain. Related Data Home Medications Medication Instructions Recorded Confirmed albuterol sulfate 90 mcg/actuation 1 puff IH Q6HP PRN Shortness Of 03/17/18 08/05/21 aerosol inhaler Breath buprenorphine 8 mg-naloxone 2 mg 2 film SL DAILY addiction 03/17/18 08/05/21 sublingual film Previous Rx's Medication Instructions Recorded gabapentin 100 mg capsule 100 mg PO TID #90 caps 11/28/19 pantoprazole 40 mg tablet,delayed 40 mg PO ONCE GERD #30 tabs 01/19/20 release diazepam 10 mg tablet 10 mg PO DAILY Anxiety #30 tabs 02/18/20 ibuprofen 200 mg capsule 200 mg PO Q6HP PRN Moderate Pain 08/23/20 #20 caps mupirocin calcium 2 % topical cream 1 applicatio TP TID 10 days #1 tube 08/23/20 benzonatate 100 mg capsule 100 mg PO TIDP PRN Cough #30 caps 03/01/21 ciprofloxacin HCl 750 mg tablet 750 mg PO BID #20 tabs 04/10/22 ketorolac 10 mg tablet 10 mg PO Q6H 5 days #20 tabs 04/10/22 Allergies Allergy/AdvReac Type Severity Reaction Status Date / Time aspirin [ASPIRIN] Allergy Unknown Verified 08/05/21 12:12 piperacillin [From Zosyn] Allergy Verified 08/05/21 12:12 tazobactam [From Zosyn] Allergy Verified 08/05/21 12:12 PFSH PFSH Social History Smoking Status: Current every day smoker tobacco type: cigarettes packs per day: 1 alcohol intake: current counselin
[2022-04-10 19:37] LABS: Microscopic, Urine URINE MICROSCOPIC (MICROSCOPIC)
[2022-04-10 19:41] LABS: Basophils # 0.1 K/mm3 (0-0.2); Eosinophils # 0.1 K/mm3 (0.0-0.4); Eosinophils % 0.9 % (0.1-12.0); Hematocrit 57.3 % (42.0-52.0); Lymphocytes # 1.8 K/mm3 (0.7-4.5); Mean Corpuscular HGB Conc 32.5 g/dL (31.8-35.4); Mean Corpuscular Hemoglobin 36.7 pg (27.0-31.2); Mean Corpuscular Volume 112.9 fl (80-94); Mean Platelet Volume 7.7 fl (7.4-10.4); Monocytes # 0.3 K/mm3 (0.1-1.0); Monocytes % 4.3 % (1.7-9.3); Neutrophils # 5.2 K/mm3 (1.8-7.8); Neutrophils % 69.8 % (37.0-80.0); Platelet Count 189 K/mm3 (142-424); Red Blood Count 5.08 M/mm3 (4.60-6.20); Red Cell Distribution Width 13.9 % (11.5-17.5); White Blood Count 7.4 K/mm3 (4.8-10.8)
[2022-04-10 19:46] LABS: Appearance,Urine CLOUDY (Clear); Blood, Urine 3+ (Negative); Color,Urine RED (Yellow); Glucose,Urine (UA) TRACE (Negative); Ketones,Urine TRACE (Negative); Leukocyte Esterase,Urine 2+ (Negative); Nitrate,Urine POSITIVE (Negative); Protein,Urine 3+ (Negative)
[2022-04-10 19:48] LABS: Hemoglobin 18.6 g/dL (14.1-18.0)
[2022-04-10 19:50] LABS: Bilirubin,Urine 2+ (Negative)
[2022-04-10 19:53] LABS: Chloride 91 mmol/L (98-107); Potassium 3.1 mmoL/L (3.5-5.1); Sodium 138 mmol/L (136-145)
[2022-04-10 19:54] LABS: Bacteria,Urine 1+ /lpf; RBC,Urine TNTC #/hpf (0-3); Squamous Epithelial Cell,Urine Occasional #/hpf (0-5); WBC,Urine Occasional #/hpf (0-3)
[2022-04-10 19:56] LABS: Anion Gap 12.1 mEq/L (5-15); Blood Urea Nitrogen 11 mg/dl (9-20); Calcium 9.3 mg/dl (8.4-10.2); Carbon Dioxide 38 mmol/L (22.0-30.0); Creatinine Clearance Estimated 132 mL/min (50-200); Estimated Glomerular Filt Rate 144 ml/min (>60); GFR (African American) 175 ML/MIN (>60); Glucose 97 mg/dl (74-100)
[2022-04-10 20:30] VITALS: BP 165/109; PULSE 90; O2SAT 95
[2022-04-10 21:24] VITALS: BP 157/90; PULSE 94; RESP 20; TEMP 36.7; O2SAT 96
== END 2022-04-10 21:31 | disposition home or self-care (01) ==
PROVIDERS: Emergency Provider Student in an Organized Health Care Education/Training Program; PCP Emergency Medicine
DX: N39.0 Urinary tract infection, site not specified (principal); Z88.0 Allergy status to penicillin; Z88.6 Allergy status to analgesic agent; Z88.8 Allergy status to other drugs, medicaments and biological substances; Z72.0 Tobacco use
CPT/HCPCS: 74176; 80048; 81001; 85025; 87086; 96365; 96367; 96375; 99284; J0696; J2405

== ENCOUNTER 2023-10-11 10:06 | Outpatient (CLI) | payer MEDICARE, MEDICAID, SELFPAY ==
[2023-10-11 16:51] LABS: Basophils # 0.1 K/mm3 (0-0.2); Basophils % 0.6 % (0.1-2.0); Eosinophils # 0.1 K/mm3 (0.0-0.4); Eosinophils % 1.4 % (0.1-12.0); Hematocrit 49.2 % (42.0-52.0); Hemoglobin 16.2 g/dL (14.1-18.0); Lymphocytes # 1.7 K/mm3 (0.7-4.5); Lymphocytes % 21.8 % (10-50); Mean Corpuscular HGB Conc 32.9 g/dL (31.8-35.4); Mean Corpuscular Hemoglobin 36.6 pg (27.0-31.2); Mean Corpuscular Volume 111.3 fl (80-94); Mean Platelet Volume 8.6 fl (7.4-10.4); Monocytes # 0.9 K/mm3 (0.1-1.0); Monocytes % 11.2 % (1.7-9.3); Neutrophils # 5.1 K/mm3 (1.8-7.8); Platelet Count 131 K/mm3 (142-424); Red Blood Count 4.42 M/mm3 (4.60-6.20); Red Cell Distribution Width 14.5 % (11.5-17.5); White Blood Count 7.9 K/mm3 (4.8-10.8)
[2023-10-11 17:03] LABS: Alanine Aminotransferase 14 U/L (12-78); Albumin Level 3.6 g/dl (3.5-5.0); Albumin/Globulin Ratio 1.2 (1.1-1.8); Alkaline Phosphatase 117 U/L (38-126); Amylase 70 U/L (30-110); Aspartate Amino Transferase 120 U/L (17-59); Blood Urea Nitrogen 30 mg/dl (9-20); Calcium 8.9 mg/dl (8.4-10.2); Chloride 85 mmol/L (98-107); Estimated Glomerular Filt Rate 90 ml/min (>60); GFR (African American) 109 ML/MIN (>60); Glucose 92 mg/dl (74-100); Potassium 3.3 mmoL/L (3.5-5.1); Sodium 135 mmol/L (136-145); Total Protein,Serum 6.6 g/dl (6.3-8.2)
[2023-10-11 17:15] LABS: Anion Gap 14.3 mEq/L (5-15); Carbon Dioxide 39 mmol/L (22.0-30.0)
== END 2023-10-11 23:59 | disposition home or self-care (01) ==
LOC: LAB.DROPOF 10-12 10:07
PROVIDERS: PCP Family Medicine; Visit Provider Family Medicine
DX: R10.9 Unspecified abdominal pain (principal)
CPT/HCPCS: 80053; 82150; 85025

== ENCOUNTER 2023-11-21 17:48 | Emergency (ER) | payer MEDICARE, MEDICAID, SELFPAY ==
--- NOTE | 2023-11-21 17:49 | ECG_ITS ---
APPROVED REPORT Exam: Resting ECG HR:87 bpm ECG Measurements Heart Rate 87 AXES SD 116 P 79 QRSd 110 QRS 40 QT 384 T 72 QTc 429 Conclusion SINUS RHYTHM INCOMPLETE RIGHT BUNDLE BRANCH BLOCK U waves versus repolarization abnormality Electronically signed by : TERRANCE MAHAJAN, 11/21/2023 22:24:22
--- NOTE | 2023-11-21 17:53 | XR_ITS ---
PROCEDURE INFORMATION: Exam: XR Chest Exam date and time: 11/21/2023 6:21 PM Age: 48 years old Clinical indication: Pain; Chest pressure; Additional info: Cp TECHNIQUE: Imaging protocol: Radiologic exam of the chest. Views: 1 view. COMPARISON: CR XR CHEST PORTABLE 10/27/2021 7:36 PM FINDINGS: Lungs: Unremarkable. No consolidation. Pleural spaces: Unremarkable. No pleural effusion. No pneumothorax. Heart/Mediastinum: Unremarkable. No cardiomegaly. Bones/joints: Unremarkable. IMPRESSION: No acute findings.
--- NOTE | 2023-11-21 17:56 | PC.NURSE ---
Dr. Chao at [facility] for pt eval
[2023-11-21 18:00] VITALS: BP 135/98; BP 150/108; PULSE 68; PULSE 84; RESP 20; RESP 24; TEMP 36.9; O2SAT 95; O2SAT 98; BMI 21.2
[2023-11-21 18:01] LABS: Basophils # 0.1 K/mm3 (0-0.2); Basophils % 1.4 % (0.1-2.0); Eosinophils # 0.3 K/mm3 (0.0-0.4); Eosinophils % 3.6 % (0.1-12.0); Hematocrit 49.1 % (42.0-52.0); Hemoglobin 16.3 g/dL (14.1-18.0); Lymphocytes # 3.2 K/mm3 (0.7-4.5); Lymphocytes % 41.9 % (10-50); Mean Corpuscular HGB Conc 33.1 g/dL (31.8-35.4); Mean Corpuscular Hemoglobin 36.6 pg (27.0-31.2); Mean Corpuscular Volume 110.4 fl (80-94); Mean Platelet Volume 7.7 fl (7.4-10.4); Monocytes # 0.4 K/mm3 (0.1-1.0); Monocytes % 5.1 % (1.7-9.3); Neutrophils # 3.7 K/mm3 (1.8-7.8); Platelet Count 282 K/mm3 (142-424); Red Blood Count 4.45 M/mm3 (4.60-6.20); Red Cell Distribution Width 15.1 % (11.5-17.5); White Blood Count 7.7 K/mm3 (4.8-10.8)
[2023-11-21] MEDS: BELLADONNA ALKALOIDS 60 ML ML PO (18:02)
[2023-11-21] MEDS: ACETAMINOPHEN 500MG TAB 1000 MG PO (18:02)
[2023-11-21] MEDS: 0.9 % SODIUM CHLORIDE 1000ML 1,000 ML 999 ML IV (18:02)
[2023-11-21 18:09] LABS: Chloride 99 mmol/L (98-107)
[2023-11-21 18:10] LABS: Potassium 3.2 mmoL/L (3.5-5.1); Sodium 140 mmol/L (136-145)
[2023-11-21 18:12] LABS: Alanine Aminotransferase 12 U/L (12-78); Alkaline Phosphatase 114 U/L (38-126); Anion Gap 12.2 mEq/L (5-15); Aspartate Amino Transferase 100 U/L (17-59); Bilirubin,Total 0.8 mg/dl (0.2-1.3); Blood Urea Nitrogen 13 mg/dl (9-20); Carbon Dioxide 32 mmol/L (22.0-30.0); Estimated Glomerular Filt Rate 103 ml/min (>60); GFR (African American) 124 ML/MIN (>60); Lipase 51 U/L (23-300)
[2023-11-21 18:13] LABS: Albumin Level 4.1 g/dl (3.5-5.0); Albumin/Globulin Ratio 1.1 (1.1-1.8); Calcium 9.2 mg/dl (8.4-10.2); Globulin 3.6 g/dL (1.3-3.2); Glucose 101 mg/dl (74-100); Total Protein,Serum 7.7 g/dl (6.3-8.2)
[2023-11-21 18:28] LABS: Troponin I < 0.01 ng/ml (0.00-0.034)
[2023-11-21 18:30] VITALS: BP 135/95; PULSE 76; RESP 18; O2SAT 96
[2023-11-21] MEDS: KETOROLAC 30MG/ML VIAL 15 MG IV (18:38)
[2023-11-21] MEDS: DEXAMETHASONE 4MG/ML 1ML VIAL 10 MG IV (18:38)
--- NOTE | 2023-11-21 18:58 | PC.NURSE ---
called for meal tray
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
[2023-11-21 19:00] VITALS: BP 139/101; PULSE 84; RESP 12; O2SAT 97
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
--- NOTE | 2023-11-21 19:06 | CT_ITS ---
PROCEDURE INFORMATION: Exam: CT Thoracic Spine Without Contrast Exam date and time: 11/21/2023 7:33 PM Age: 48 years old Clinical indication: Pain in thoracic spine; Additional info: Atraumtic severe radiating pain, assess hardware TECHNIQUE: Imaging protocol: Computed tomography of the thoracic spine without contrast. Radiation optimization: All CT scans at this facility use at least one of these dose optimization techniques: automated exposure control; mA and/or kV adjustment per patient size (includes targeted exams where dose is matched to clinical indication); or iterative reconstruction. COMPARISON: CT THORACIC SPINE W CON 10/27/2021 7:30 PM FINDINGS: Bones/joints: Mild loss of intervertebral disc space with degenerative changes at midthoracic spine greatest from T8 through T10 without significant spinal canal or neural foraminal stenosis. Soft tissues: Unremarkable. Lymph nodes: Multiple mediastinal and hilar calcified nodes likely related to prior granulomatous process. Kidneys and ureters: Nonobstructive bilateral nephrolithiasis define by multiple bilateral renal calcific densities the largest measuring up to 9.6 mm. IMPRESSION: Mild loss of intervertebral disc space with degenerative changes at midthoracic spine greatest from T8 through T10 without significant spinal canal or neural foraminal stenosis. No acute osseous abnormalities.
[2023-11-21] MEDS: LIDOCAINE 5% TRANSDERMAL PATCH 1 EACH TP (19:57)
[2023-11-21 20:00] VITALS: BP 132/89; PULSE 85; RESP 17; O2SAT 98
[2023-11-21 20:44] VITALS: BP 126/82; PULSE 79; RESP 19; TEMP 36.6; O2SAT 98
== END 2023-11-21 20:46 | disposition home or self-care (01) ==
PROVIDERS: Emergency Provider Emergency Medicine; PCP Internal Medicine Adolescent Medicine
DX: M54.6 Pain in thoracic spine (principal); R07.9 Chest pain, unspecified; E87.6 Hypokalemia
CPT/HCPCS: 71045; 72128; 72131; 80053; 83690; 84484; 85025; 93005; 96361; 96374; 96375; 99285

== ENCOUNTER 2023-12-02 20:41 | Inpatient (IN) | payer MEDICARE, MEDICAID, SELFPAY ==
[2023-12-02 20:42] VITALS: BP 151/122; PULSE 105; RESP 16; TEMP 36.8; O2SAT 100; BMI 18.2
--- NOTE | 2023-12-02 20:43 | ED_ITS ---
<Statement entered by Monica Oro DO - 12/02/23 22:50> I was consulted by the HEIDY, and we discussed the complexity of the problems being addressed. I approved the treatment and management plan for this patient's care in the emergency department, thus performing a substantive portion of the medical decision making. Monica Oro DO Discharge Plan Disposition Patient Disposition: Admitted Condition: Fair Clinical Impressions Clinical Impression: Melena, Abdominal pain, acute Nausea & vomiting Qualifiers: Vomiting type: unspecified Qualified Code(s): R11.2 - Nausea with vomiting, unspecified Discharge ED Provider: Monica Oro General Adult HPI General Chief complaint: Abdominal Pain Stated complaint: Blood in stool,vomiting Time Seen by Provider: 12/02/23 20:42 History of Present Illness HPI narrative: Patient presents for evaluation of of intractable vomiting and dark stool. Patient gives a 3-day history of intractable vomiting abdominal pain and dark stool. Patient does have a history of previous ulcer disease but last EGD and evaluation for that was approximately 4 years ago. Patient is a daily alcohol drinker switching between fireball shots and beer depending on what he has available to by, daily Suboxone therapy, and daily NSAID use including Toradol and ibuprofen. Related Data Home Medications Medication Instructions Recorded Confirmed albuterol sulfate 90 mcg/actuation 2 puff inhalation Q6HP PRN 08/17/22 10/11/23 aerosol inhaler Shortness Of Breath buprenorphine 8 mg-naloxone 2 mg 2 tab sublingual DAILY 08/17/22 10/11/23 sublingual tablet Previous Rx's Medication Instructions Recorded omeprazole 40 mg capsule,delayed 40 mg PO BID #60 caps 10/11/23 release prednisone 20 mg tablet 40 mg (2 x 20 mg) PO DAILY 5 days 11/21/23 #10 tabs Allergies Allergy/AdvReac Type Severity Reaction Status Date / Time aspirin [ASPIRIN] Allergy Unknown Verified 08/17/22 10:30 piperacillin [From Zosyn] Allergy Verified 08/17/22 10:30 tazobactam [From Zosyn] Allergy Verified 08/17/22 10:30 [facility] Disclaimer: The information contained in this section may have been updated after the patient was seen, as this information can be updated by other users. Medical History Traumatic brain injury Surgical History History of foot surgery H/O lithotripsy History of appendectomy H/O right knee surgery H/O anterior cruciate ligament surgery Previous back surgery Family History Grandmother Cancer Diabetes Stroke Grandfather Cancer Mother Diabetes Hypertension Social History Smoking Status: Current every day smoker tobacco type: cigarettes packs per day: 1 alcohol intake: current alcohol intake frequency: a few times a week counseling provided: provider counseling substance use type: former substance user and prescription drug current occupational status: other Travel in the last 8 weeks: None household members: significant other housing: house current occupational exposures/hazards: No caffeine: No ROS Obtained: Yes Systems reviewed as appropriate & no additional complaints except as documented Physical Exam General General appearance: alert and in no apparent distress Respiratory Respiratory exam: Present normal lung sounds bilaterally Cardiovascular Cardiovascular exam: Present normal rhythm and tachycardia Abdominal Exam Abdominal exam: Present soft, tenderness (In the epigastrium) and normal bowel sounds; Absent guarding or rebound Extremities Exam Extremities exam: Present normal inspection and full ROM Back Exam Back exam: Present normal inspection and full ROM; Absent tenderness Neurological Exam Neurological exam: Present alert, oriented X3 and CN II-XII intact Psychiatric Psychiatric exam: Present normal affect and normal mood Skin Skin exam: Present warm, dry and normal color Medical Decision Making Medical Records Medical records reviewed: Yes I reviewed the patient's medical records. Dejan Inquiry Pt receiving controlled substance: No Vital Signs: 12/02/23 20:42 12/02/23 20:54 Temperature 98.2 F Temperature Source Oral Pulse Rate 91 H Pulse Rate [Left] 105 H Respiratory Rate 16 16 Blood Pressure 129/90 Blood Pressure [Right Arm] 151/122 H Blood Pressure Mean [Right Arm] 131 Blood Pressure Source [Right Arm] Automatic Cuff Blood Pressure Position Supine Blood Pressure Position [Right Arm] Sitting 02 Sat by Pulse Oximetry 100 99 Oxygen Delivery Method Room Air Room Air Lab Data Lab results reviewed: Yes I reviewed the patient's lab results. Lab Results 12/02/23 20:51: WBC 8.5, RBC 3.87 L, Hgb 14.4, Hct 42.2, MCV 109.1 H, MCH 37.1 H , MCHC 34.0, RDW 15.7, Plt Count 271, MPV 7.8, Neut % (Auto) 78.1, Lymph % (Auto) 15.1, [place] % (Auto) 5.4, Eos % (Auto) 0.7, Baso % (Auto) 0.7, Neut # (Auto) 6.7, Lymph # (Auto) 1.3, [place] # (Auto) 0.5, Eos # (Auto) 0.1, Baso # (Auto) 0.1, PT 10.9, INR 1.01, Sodium 139, Potassium 2.9 L*, Chloride 97 L, C arbon Dioxide 38 H, Anion Gap 6.9, BUN 24 H, Creatinine 0.60 L, Estimated Creat Clear 115, Estimated GFR 143, Est GFR ( Amer) 173, Glucose 140 H, Calcium 9.6, Magnesium 1.5 L, Total Bilirubin 1.1, AST 67 H, ALT 16, Alkaline Phosphatase 111, Total Protein 7.3, Albumin 4.1, Globulin 3.2, Albumin/Globulin Ratio 1.3, Lipase 62, Plasma/Serum Alcohol < 10 12/02/23 21:05: Lactate 1.2, Blood Type O Positive, Antibody Screen Negative 12/02/23 20:51 12/02/23 20:51 Orders (Tests/Meds): ED MEDICATIONS Generic Name Dose Route Start Last Admin Trade Name Freq PRN Reason Stop Dose Admin Acetaminophen 650 mg 12/02/23 22:37 Acetaminophen 325mg Tab PO 01/01/24 22:36 Q4HP PRN Fever or Mild Pain (1-3) Pantoprazole Sodium 80 mg/ 100 mls @ 10 mls/hr 12/02/23 21:00 12/02/23 21:02 Sodium Chloride IV 12/05/23 20:59 10 mls/hr .Q10H JOSE Administration Potassium Chloride/Water 100 mls @ 50 mls/hr 12/02/23 21:15 12/02/23 21:49 Potassium Chloride 20meq/100ml Ivpb IV 12/03/23 03:14 50 mls/hr Q2H JOSE Administration Sodium Chloride 1,000 mls @ 100 mls/hr 12/02/23 22:45 Sod Chlor 0.9% 1000ml Bag IV 01/01/24 22:44 .Q10H JOSE Morphine Sulfate 2 mg 12/02/23 22:37 Morphine 2mg/Ml Syringe IV 01/01/24 22:36 Q2HP PRN Severe Pain (7-10) Nicotine 21 mg 12/02/23 22:37 Nicotine 21mg/24hr Patch TD 01/01/24 22:36 DAILYP PRN Nicotine Cravings Ondansetron HCl 4 mg 12/02/23 22:37 Ondansetron 4mg/2ml Vial IV 01/01/24 22:36 Q8HP PRN Nausea Sodium Chloride 10 ml 12/02/23 21:23 12/02/23 21:25 Sodium Chloride 0.9% 10ml Syr (Rad Only) IV 01/01/24 21:22 10 ml NEEDED PRN Administration Maintain IV Site Discontinued Medications Generic Name Dose Route Start Last Admin Trade Name Freq PRN Reason Stop Dose Admin Acetaminophen 1,000 mg 12/02/23 20:43 12/02/23 21:02 Acetaminophen 1,000mg/100ml Vial IV 12/02/23 20:44 1,000 mg ONCE ONE Administration Lactated Ringer's 1,000 mls @ 999 mls/hr 12/02/23 20:43 12/02/23 21:02 Lactated Ringer's 1000 Ml Bag IV 12/02/23 21:43 999 mls/hr .Q1H1M ONE Administration Magnesium Sulfate 2 gm in 50 mls @ 50 mls/hr 12/02/23 21:14 12/02/23 21:31 Magnesium Sulfate 2gm/50ml Premix IV 12/02/23 22:13 50 mls/hr ONCE ONE Administration Iopamidol 75 ml 12/02/23 21:23 12/02/23 21:25 Iopamidol-370 (76%);100ml Bottle IV 12/02/23 21:24 75 ml ONCE ONE Administration Ondansetron HCl 4 mg 12/02/23 20:43 12/02/23 21:04 Ondansetron 4mg/2ml Vial IV 12/02/23 20:44 4 mg ONCE ONE Administration ORDERS Category Date Time Status Type and Screen Stat BBK 12/02/23 21:[address] abdomen pelvis w con Stat Cat Scan 12/02/23 20:59 Completed Consult to General Surgery [CONS] Routine Cons 12/02/23 22:37 Ordered Surgery Consult (on-call) [Consult to On-Call Gen'l Cons 12/02/23 22:37 Ordered Surgeon] [CONS] Routine Blood alcohol [Ethyl Alcohol] Stat Lab 12/02/23 20:51 Completed CBC w/Auto Diff [Complete Blood Count Auto Diff] Stat Lab 12/02/23 20:51 Completed CMP [Comprehensive Metabolic Panel] Stat Lab 12/02/23 20:51 Completed Complete Blood Count Auto Diff AMLAB Lab 12/03/23 06:00 Ordered Comprehensive Metabolic Panel AMLAB Lab 12/03/23 06:00 Ordered Diarrhea 23 Panel, PCR Stat Lab 12/02/23 20:44 Ordered INR [Prothrombin Time INR] Stat Lab 12/02/23 20:51 Completed Lactic Acid Stat Lab 12/02/23 21:05 Completed Lipase Stat Lab 12/02/23 20:51 Completed Magnesium AMLAB Lab 12/03/23 06:00 Ordered Magnesium Stat Lab 12/02/23 20:51 Completed Occult Blood,Stool Stat Lab 12/02/23 20:43 Ordered Medical Decision Narrative: In summary patient is a 48-year-old male who presents to the emergency department for evaluation of nominal pain nausea vomiting and dark stool. Patient is normotensive but tachycardic upon arrival, afebrile. Zickel exam is remarkable for much older than stated age appearing 48-year-old male with epigastric abdominal pain on palpation. There is no rebound or guarding or rigidity.. Differential diagnosis includes cirrhosis with varices, erosive esophagitis, gastritis, peptic ulcer disease, gastroenteritis etc. Initial workup will be conducted with hematologic labs CT scan of the abdomen pelvis. Initial interventions include crystalloid bolus Protonix drip Toradol Tylenol antiemetics. Initial workup reviewed by me shows that hemoglobin hematocrit are normal with no shift however patient does have low potassium and low magnesium which are being repleted. My informal interpretation of his CT scan shows fatty infiltrate of the liver but no other acute processes. Given the findings I had an interactive discussion with general surgery for possible endoscopy in the a.m. and they were agreeable to consult. Given that I had an interactive discussion with hospital medicine and they have agreed for admission for further evaluation and care Critical Care Critical Care Time Critical Care Time: No
[2023-12-02 20:54] VITALS: BP 129/90; PULSE 91; RESP 16; O2SAT 99
--- NOTE | 2023-12-02 20:59 | CT_ITS ---
PROCEDURE INFORMATION: Exam: CT Abdomen And Pelvis With Contrast Exam date and time: 12/02/2023 9:12 PM Age: 48 years old Clinical indication: Abdominal pain; Additional info: Gi bleed TECHNIQUE: Imaging protocol: Computed tomography of the abdomen and pelvis with contrast. Total images: 312 Radiation optimization: All CT scans at this facility use at least one of these dose optimization techniques: automated exposure control; mA and/or kV adjustment per patient size (includes targeted exams where dose is matched to clinical indication); or iterative reconstruction. Contrast material: ISOVUE; Contrast volume: 75 ml; Contrast route: IV; COMPARISON: CT ABDOMEN PELVIS WO CON 04/10/2022 7:33 PM FINDINGS: Lungs: Calcified right middle lobe granuloma. Heart: Normal heart size. Esophagus: Distal esophageal wall thickening. Liver: Hepatic steatosis. Regional more profound fatty infiltration at the junction of the right and left hepatic lobes. Otherwise, unremarkable liver. Gallbladder and bile ducts: Normal. No calcified stones. No ductal dilation. Pancreas: Normal. No ductal dilation. Spleen: Calcified splenic granuloma. No splenomegaly. Adrenal glands: Normal. No mass. Kidneys and ureters: Bilateral nephrolithiasis, right greater than left kidney. No hydronephrosis or renal mass. Tiny subcentimeter left renal cortical hypodensities far too small to characterize but statistically cysts requiring no strict follow-up. No ureteral stones. Stomach and bowel: Unremarkable stomach and duodenum. No ileus or bowel obstruction. Small bowel appears within normal limits. Unremarkable terminal ileum. Unremarkable colon and rectum. Appendix: Status post appendectomy. Intraperitoneal space: Unremarkable. No free air. No significant fluid collection. Vasculature: Mildly atherosclerotic abdominal aorta without aneurysm. Major abdominal vessels enhance appropriately. Pelvic phleboliths. Lymph nodes: Unremarkable. No enlarged lymph nodes. Urinary bladder: Collapsed bladder. Reproductive: Nonenlarged prostate. Bones/joints: Remote mild anterior wedging L2 vertebral body. Near complete loss of disc space L1-L2. Mild degenerative changes remainder of the thoracolumbar spine. Mild degenerative changes bilateral hips. Soft tissues: Unremarkable. IMPRESSION: 1. No acute intra-abdominal or pelvic process. 2. Distal esophageal wall thickening concerning for esophagitis. 3. Bilateral nephrolithiasis without obstructive uropathy. 4. Hepatic steatosis. 5. Remote calcified granulomatous disease.
[2023-12-02] MEDS: LACTATED RINGERS 1000ML 1,000 ML 999 ML IV (21:02)
[2023-12-02] MEDS: PANTOPRAZOLE 40MG VIAL 80 MG IV (21:02)
[2023-12-02] MEDS: ACETAMINOPHEN 1,000MG/100ML VIAL 1000 MG IV (21:02)
[2023-12-02] MEDS: ONDANSETRON 4MG/2ML VIAL 4 MG IV (21:04)
[2023-12-02 21:05] LABS: Chloride 97 mmol/L (98-107); Sodium 139 mmol/L (136-145)
[2023-12-02 21:08] LABS: Alanine Aminotransferase 16 U/L (12-78); Albumin Level 4.1 g/dl (3.5-5.0); Albumin/Globulin Ratio 1.3 (1.1-1.8); Alkaline Phosphatase 111 U/L (38-126); Anion Gap 6.9 mEq/L (5-15); Aspartate Amino Transferase 67 U/L (17-59); Bilirubin,Total 1.1 mg/dl (0.2-1.3); Blood Urea Nitrogen 24 mg/dl (9-20); Calcium 9.6 mg/dl (8.4-10.2); Carbon Dioxide 38 mmol/L (22.0-30.0); Creatinine Clearance Estimated 115 mL/min (50-200); Estimated Glomerular Filt Rate 143 ml/min (>60); GFR (African American) 173 ML/MIN (>60); Globulin 3.2 g/dL (1.3-3.2); Glucose 140 mg/dl (74-100); Lipase 62 U/L (23-300); Total Protein,Serum 7.3 g/dl (6.3-8.2)
[2023-12-02 21:09] LABS: INR 1.01 (0.9-1.1); Magnesium 1.5 mg/dl (1.6-2.3); Prothrombin Time 10.9 seconds (10.1-12.5)
--- NOTE | 2023-12-02 21:10 | PC.NURSE ---
Cadence from the lab called a Critical lab value of Potassium 2.9. and RN made aware. CR
[2023-12-02 21:12] LABS: Ethyl Alcohol < 10 mg/dl (0-10); Potassium 2.9 mmoL/L (3.5-5.1)
[2023-12-02 21:15] LABS: Basophils # 0.1 K/mm3 (0-0.2); Basophils % 0.7 % (0.1-2.0); Eosinophils # 0.1 K/mm3 (0.0-0.4); Eosinophils % 0.7 % (0.1-12.0); Hematocrit 42.2 % (42.0-52.0); Hemoglobin 14.4 g/dL (14.1-18.0); Lymphocytes # 1.3 K/mm3 (0.7-4.5); Lymphocytes % 15.1 % (10-50); Mean Corpuscular Hemoglobin 37.1 pg (27.0-31.2); Mean Corpuscular Volume 109.1 fl (80-94); Mean Platelet Volume 7.8 fl (7.4-10.4); Monocytes # 0.5 K/mm3 (0.1-1.0); Monocytes % 5.4 % (1.7-9.3); Neutrophils # 6.7 K/mm3 (1.8-7.8); Neutrophils % 78.1 % (37.0-80.0); Platelet Count 271 K/mm3 (142-424); Red Blood Count 3.87 M/mm3 (4.60-6.20); Red Cell Distribution Width 15.7 % (11.5-17.5); White Blood Count 8.5 K/mm3 (4.8-10.8)
[2023-12-02 21:22] LABS: Lactic Acid 1.2 mmol/L (0.7-2.1)
[2023-12-02] MEDS: SODIUM CHLORIDE 0.9% 10ML SYR (RAD ONLY) 10 ML IV (21:25)
[2023-12-02] MEDS: IOPAMIDOL-370 (76%);100ML BOTTLE 75 ML IV (21:25)
[2023-12-02] MEDS: MAGNESIUM SULFATE IN WATER 2 GM/50 ML PIGGYBACK IV (21:31)
[2023-12-02] MEDS: KCl 20mEq/100ml 100 ML 50 MEQ IV ×2 (21:49→23:43)
--- NOTE | 2023-12-02 22:37 | PC.NURSE ---
notified datawarehouse developer of admission
--- NOTE | 2023-12-02 22:40 | PC.NURSE ---
Patient admitted to room 208 for GI Bleed to hospitalist; observation status.
--- NOTE | 2023-12-02 22:41 | EXP.HP ---
History of Present Illness *Admission Date: 12/02/23 *Reason for visit:: dark moira. abd pain *History of present illness: This is a 48 year-old male with a PMHx of heart disease, asthma, bronchitis, GERD with past duodenal ulcer, drug and alcohol dependence on Suboxone, anxiety, chronic pain on NSAID, tobacco use disorder who presented for evaluation of of intractable vomiting and dark stool. Patient gives a 3-day history of intractable vomiting abdominal pain and dark stool. Patient does have a history of previous ulcer disease but last EGD and evaluation for that was approximately 4 years ago. patient referred having dark stool, with foul odor. Today also presented with epigastric abdominal pain that does not release with anything tried previously. Admitted for treatment and managment. [facility] Disclaimer: The information contained in this section may have been updated after the patient was seen, as this information can be updated by other users. Medical History (Updated 12/03/23 @ 03:28 by Joseph Larkin APRN) Depression Anxiety Traumatic brain injury Surgical History History of foot surgery H/O lithotripsy History of appendectomy H/O right knee surgery H/O anterior cruciate ligament surgery Previous back surgery Family History Grandmother Cancer Diabetes Stroke Grandfather Cancer Mother Diabetes Hypertension Social History Smoking Status: Current every day smoker tobacco type: cigarettes packs per day: 1 alcohol intake: current alcohol intake frequency: a few times a week counseling provided: provider counseling substance use type: former substance user and prescription drug current occupational status: disabled Travel in the last 8 weeks: None household members: significant other housing: house current occupational exposures/hazards: No caffeine: No Review of Systems Review of Systems Review of systems:: pertinent systems reviewed and negative unless documented below Meds Home Medications and Allergies Home Medications Medication Instructions Recorded Confirmed Type buprenorphine 8 mg-naloxone 2 mg 2 tab sublingual DAILY 08/17/22 12/02/23 History sublingual tablet New Prescriptions to Start Prescriptions: Allergies Allergy/AdvReac Type Severity Reaction Status Date / Time aspirin [ASPIRIN] Allergy Unknown Verified 08/17/22 10:30 piperacillin [From Zosyn] Allergy Verified 08/17/22 10:30 tazobactam [From Zosyn] Allergy Verified 08/17/22 10:30 Exam Data for Last 24 hours Vital signs and Labs for Last 24 Hours: Temp Pulse Resp BP Pulse Ox O2 Del Method 98.2 F 91 H 16 129/90 99 Room Air 12/02/23 20:42 12/02/23 20:54 12/02/23 20:54 12/02/23 20:54 12/02/23 20:54 12/02/23 20:54 Laboratory Results - last 24 hr 12/02/23 20:51: WBC 8.5, RBC 3.87 L, Hgb 14.4, Hct 42.2, MCV 109.1 H, MCH 37.1 H, MCHC 34.0, RDW 15.7, Plt Count 271, MPV 7.8, Neut % (Auto) 78.1, Lymph % (Auto) 15.1, [place] % (Auto) 5.4, Eos % (Auto) 0.7, Baso % (Auto) 0.7, Neut # (Auto) 6.7, Lymph # (Auto) 1.3, [place] # (Auto) 0.5, Eos # (Auto) 0.1, Baso # (Auto) 0.1, PT 10.9, INR 1.01, Sodium 139, Potassium 2.9 L*, Chloride 97 L, Carbon Dioxide 38 H, Anion Gap 6.9, BUN 24 H, Creatinine 0.60 L, Estimated Creat Clear 115, Estimated GFR 143, Est GFR ( Amer) 173, Glucose 140 H, Calcium 9.6, Magnesium 1.5 L, Total Bilirubin 1.1, AST 67 H, ALT 16, Alkaline Phosphatase 111, Total Protein 7.3, Albumin 4.1, Globulin 3.2, Albumin/Globulin Ratio 1.3, Lipase 62, Plasma/Serum Alcohol < 10 12/02/23 21:05: Lactate 1.2, Blood Type O Positive, Antibody Screen Negative I & O for Last 24 hours: Intake & Output 11/29/23 11/30/23 12/01/23 12/02/23 23:59 23:59 23:59 23:59 Weight 54.431 kg Constitutional Constitutional: moderate distress and thin *Routine HEENT Exam Head: Present normocephalic Eye: Present EOMI and PERRL ENT: Present mucous membranes moist; Absent dentition normal *Routine Neck Exam Neck: Present supple; Absent lymphadenopathy *Routine Respiratory Exam Respiratory: Present CTA bilaterally *Routine Cardiovascular Exam Cardiovascular: Present RRR, Normal S1 and tachycardia *Routine Abdominal Exam Abdominal: Present soft, normoactive bowel sounds, tenderness and guarding *Routine Rectal Exam Rectal:: deferred *Routine Genitalia Exam Genitalia:: deferred *Routine Extremities Exam Extremities: Absent cyanosis, clubbing or edema *Routine Skin Exam Skin: Present warm; Absent rash *Routine Neurological Exam Neurological: Present alert and oriented X3 H&P: Result Imaging and Cardiology EKG: Status: image reviewed by me, Preliminary report and final report CT scan - abdomen: Status: image reviewed by me, Preliminary report and final report Assessment and Plan *Assessment and plan (1) Abdominal pain, acute: Status: Acute Category: Medical Code(s): R10.9 - Unspecified abdominal pain (2) Nausea & vomiting: Status: Acute Qualifiers: Vomiting type: unspecified Qualified Code(s): R11.2 - Nausea with vomiting, unspecified Category: Medical Code(s): R11.2 - Nausea with vomiting, unspecified (3) Melena: Status: Acute Category: Medical Code(s): K92.1 - Melena (4) Esophagitis with gastritis: Status: Acute Category: Medical Code(s): K29.70 - Gastritis, unspecified, without bleeding; K20.90 - Esophagitis, unspecified without bleeding (5) Tobacco abuse: Status: Chronic Category: Medical Code(s): Z72.0 - Tobacco use (6) Drug abuse and dependence: Status: Acute Category: Medical Code(s): F19.20 - Other psychoactive substance dependence, uncomplicated Plan 48 year-old male with a PMHx of heart disease, asthma, bronchitis, GERD with past duodenal ulcer, drug and alcohol dependence on Suboxone, anxiety, chronic pain on NSAID, tobacco use disorder who presented for evaluation of of intractable vomiting and dark stool. arrive normotensive but tachycardic. Initial workup will be conducted with hematologic labs CT scan of the abdomen pelvis. Initial interventions include crystalloid bolus Protonix drip Toradol Tylenol antiemetics. Initial workup reviewed by me shows that HH normal. no signs of bleeding. Electrolytes depleted. replaced at ED. CT of abdomen negative. Surgeon was consulted.. patient placed on protonix continuous infusion. Discussed with ED provider for admission. Plan as follow: -*Acute abdominal pain with intractable nausea and vomiting Episode of melana. Suspected upper GI bleed secondary to gastric or duodenal active ulcer: Esophagitis with gastritis Patient for continuous monitoring Surgeon consult Keep n.p.o.. Possible scope in the morning.. CT with contrast of the abdomen reviewed. Esophageal varices ruled out And continues Protonix infusion Diarrhea panel pending Pepcid IV one-time given Pain management. Monitor 4 mg morphine given. Bentyl p.o. schedule. GI cocktail as needed Continue IV hydration. Replace electrolytes Repeat labs in the morning. Monitor with CBC especially hemoglobin History of multidrug abuse including alcohol and tobacco dependence Last drink before admission Monitors for CIWA On nicotine patch SCD for DVT prophylaxis. Full code Rounded on patient after nurse practitioner. Personally examined and interviewed patient. Agree with exam findings and care plan as documented.
[2023-12-02 22:52] VITALS: BP 143/106; PULSE 80; RESP 16; TEMP 36.8; O2SAT 97
--- NOTE | 2023-12-02 23:04 | PC.NURSE ---
Patient arrived to floor via stretcher from Ed at 23:02.
[2023-12-02 23:15] VITALS: BP 127/57; PULSE 83; RESP 17; TEMP 37.1; O2SAT 98
[2023-12-02] MEDS: MORPHINE 2MG/ML SYRINGE 2 MG IV (23:42)
[2023-12-02] MEDS: 0.9 % SODIUM CHLORIDE 1000ML 1,000 ML 100 ML IV (23:43)
[2023-12-03] VITALS (15 sets, daily range): BP systolic 105–157; BP diastolic 63–101; PULSE 69–98; RESP 16–20; TEMP 36.4–36.8; O2SAT 90–99
[2023-12-03] MEDS: PANTOPRAZOLE SODIUM 80 MG in 0.9 % SODIUM CHLORIDE 100 ML 10 MG IV (01:06)
[2023-12-03] MEDS: MORPHINE 2MG/ML SYRINGE 2 MG IV (01:20)
[2023-12-03] MEDS: FAMOTIDINE 20MG/2ML VIAL 20 MG IV (01:21)
[2023-12-03] MEDS: SODIUM CHLORIDE 0.9% 10ML VIAL 8 ML IV (01:21)
[2023-12-03] MEDS: BELLADONNA ALKALOIDS 60 ML ML PO ×4 (01:22→20:50)
[2023-12-03] MEDS: KCl 20mEq/100ml 100 ML 50 MEQ IV (01:52)
[2023-12-03 03:20] LABS: Adenovirus F 40/41, stool Not Detected (NotDetected); Astrovirus Not Detected (NotDetected); Campylobacter Not Detected (NotDetected); Clostridium Difficile A/B, PCR Not Detected (NotDetected); Cryptosporidium Not Detected (NotDetected); Cyclospora Cayetanesis Not Detected (NotDetected); Entamoeba histolytica Not Detected (NotDetected); Enteroaggregative E coli Not Detected (NotDetected); Enteropathogenic E coli Not Detected (NotDetected); Enterotoxigenic E coli Not Detected (NotDetected); Giardia lamblia Not Detected (NotDetected); Norovirus Not Detected (NotDetected); Plesimonas Shigalloides, PCR Not Detected (NotDetected); Rotavirus A Not Detected (NotDetected); Salmonella, PCR Not Detected (NotDetected); Sapovirus Not Detected (NotDetected); Shiga-like toxin E coli Not Detected (NotDetected); Shigella Enterovasive E coli Not Detected (NotDetected); Vibrio Cholerae Not Detected (NotDetected); Vibrio, PCR Not Detected (NotDetected); Yersinia Entercolitica, PCR Not Detected (NotDetected)
[2023-12-03 03:31] LABS: Occult Blood,Stool Positive (Negative)
[2023-12-03] MEDS: ACETAMINOPHEN 325MG TAB 650 MG PO (03:43)
[2023-12-03] MEDS: HYDROMORPHONE 2MG/ML SYRINGE 0.5 MG IV (04:28)
[2023-12-03] MEDS: DICYCLOMINE 20 MG/2ML VIAL 10 MG IM (05:19)
--- NOTE | 2023-12-03 05:31 | PC.NURSE ---
Patient alert and oriented x4 this shift. Has not rested much throughout the night. Complaints of a significant amount of pain in back that radiates to right groin. Offered patient warm compresses and treated with meds per AUG. Abdomen soft and tender. 1 bloody bowel movement this shift. Stool collected and sent to lab. Bed alarm active, bed in lowest position and call light within reach.
[2023-12-03] MEDS: ONDANSETRON 4MG/2ML VIAL 4 MG IV ×2 (05:51→08:30)
--- NOTE | 2023-12-03 06:05 | P.CONS_ITS ---
History of Present Illness *Admission Date: 12/02/23 *Reason for visit:: Upper endoscopy for melena *History of present illness: Patient is a 48-year-old male from [place], [place] with history of alcohol abuse/dependence, heart disease, asthma, bronchitis, GERD, prior history of duodenal ulcer, anxiety, chronic pain on NSAID use, tobacco abuse who presented to the emergency department in the evening of 12/02/2023 with abdominal pain, nausea, and vomiting with symptoms of melena. He was found to have a BUN of 24 with a creatinine of 0.6. Potassium 2.9. Coagulation profile normal. AST of 67. Stool positive for occult blood. CT scan revealed no acute process. Distal esophageal wall thickening concerning for esophagitis. Hepatic steatosis . Patient had a prior history of undergoing upper endoscopy in August 2023 evidence of GI blood loss at which time he was found to have erosive gastritis with moderately large moderately deep gastric antral ulcer as well as a duodenal ulcer which had visible vessel requiring hemostatic measures along with duodenitis. This was able to be healed medically on follow-up endoscopy a few months later. He was admitted for inpatient management and surgical consultation for possible upper endoscopy. Overnight he had had pain requiring appreciable narcotics. . [facility] Disclaimer: The information contained in this section may have been updated after the patient was seen, as this information can be updated by other users. Medical History (Updated 12/03/23 @ 03:28 by Joseph Larkin APRN) Depression Anxiety Traumatic brain injury Surgical History History of foot surgery H/O lithotripsy History of appendectomy H/O right knee surgery H/O anterior cruciate ligament surgery Previous back surgery Family History Grandmother Cancer Diabetes Stroke Grandfather Cancer Mother Diabetes Hypertension Social History Smoking Status: Current every day smoker tobacco type: cigarettes packs per day: 1 alcohol intake: current alcohol intake frequency: a few times a week counseling provided: provider counseling substance use type: former substance user and prescription drug current occupational status: disabled Travel in the last 8 weeks: None household members: significant other housing: house current occupational exposures/hazards: No caffeine: No Meds Home Medications and Allergies Home Medications Medication Instructions Recorded Confirmed Type buprenorphine 8 mg-naloxone 2 mg 2 tab sublingual DAILY 08/17/22 12/02/23 History sublingual tablet New Prescriptions to Start Prescriptions: Allergies Allergy/AdvReac Type Severity Reaction Status Date / Time aspirin [ASPIRIN] Allergy Unknown Verified 08/17/22 10:30 piperacillin [From Zosyn] Allergy Verified 08/17/22 10:30 tazobactam [From Zosyn] Allergy Verified 08/17/22 10:30 Exam (Inpt) Vital signs and Labs for Last 24 Hours: Temp Pulse Resp BP Pulse Ox O2 Del Method 97.9 F 75 16 149/83 H 97 Room Air 12/03/23 04:00 12/03/23 04:00 12/03/23 04:00 12/03/23 04:00 12/03/23 04:00 12/03/23 05:00 Laboratory Results - last 24 hr 12/02/23 20:51: WBC 8.5, RBC 3.87 L, Hgb 14.4, Hct 42.2, MCV 109.1 H, MCH 37.1 H , MCHC 34.0, RDW 15.7, Plt Count 271, MPV 7.8, Neut % (Auto) 78.1, Lymph % (Auto) 15.1, [place] % (Auto) 5.4, Eos % (Auto) 0.7, Baso % (Auto) 0.7, Neut # (Auto) 6.7, Lymph # (Auto) 1.3, [place] # (Auto) 0.5, Eos # (Auto) 0.1, Baso # (Auto) 0.1, PT 10.9, INR 1.01, Sodium 139, Potassium 2.9 L*, Chloride 97 L, C arbon Dioxide 38 H, Anion Gap 6.9, BUN 24 H, Creatinine 0.60 L, Estimated Creat Clear 115, Estimated GFR 143, Est GFR ( Amer) 173, Glucose 140 H, Calcium 9.6, Magnesium 1.5 L, Total Bilirubin 1.1, AST 67 H, ALT 16, Alkaline Phosphatase 111, Total Protein 7.3, Albumin 4.1, Globulin 3.2, Albumin/Globulin Ratio 1.3, Lipase 62, Plasma/Serum Alcohol < 10 12/02/23 21:05: Lactate 1.2, Blood Type O Positive, Antibody Screen Negative 12/03/23 03:10: Stool Occult Blood Positive A, Stl Aeromonas (PCR) Not detected, Stl C. cayetanensis PCR Not detected, Stool Rotavirus (PCR) Not detected, Stl Adenov F 40/41 PCR Not detected, Stool Astrovirus (PCR) Not detected, Stool Campylobacter PCR Not detected, Stl C.difficile Tox PCR Not detected, Stool Cryptosporidium PCR Not detected, Stl E.coli Shiga Tox PCR Not detected, Stool E coli O157 PCR Not detected, Stl Enterotoxigenic E PCR Not detected, Stool EPEC (PCR) Not detected, Stool EAEC (PCR) Not detected, Stl E. histolytica PCR Not detected, Stool Giardia Lamblia PCR Not detected, Stool Salmonella PCR Not detected, Stool Sapovirus (PCR) Not detected, Stl P. shigelloides PCR Not detected, Stl Shigella/EIEC PCR Not detected, St Y.enterocolitica PCR Not detected, Stool Vibrio (PCR) Not detected, Stl Vibrio cholerae PCR Not detected, Stl Norovirus GI/GII PCR Not detected I & O for Labs for Last 24 Hours: Intake & Output 11/30/23 12/01/23 12/02/23 12/03/23 11:59 11:59 11:59 11:59 Intake Total 864 / 864 Output Total 0 / 0 Balance 864 / 864 Weight 132 lb 6.413 oz Constitutional: no acute distress Comment:: Resting comfortably GI: Present soft Results Labs 12/02/23 20:51 12/02/23 20:51 Labs: Laboratory Results - last 24 hr 12/02/23 20:51: WBC 8.5, RBC 3.87 L, Hgb 14.4, Hct 42.2, MCV 109.1 H, MCH 37.1 H , MCHC 34.0, RDW 15.7, Plt Count 271, MPV 7.8, Neut % (Auto) 78.1, Lymph % (Auto) 15.1, [place] % (Auto) 5.4, Eos % (Auto) 0.7, Baso % (Auto) 0.7, Neut # (Auto) 6.7, Lymph # (Auto) 1.3, [place] # (Auto) 0.5, Eos # (Auto) 0.1, Baso # (Auto) 0.1, PT 10.9, INR 1.01, Sodium 139, Potassium 2.9 L*, Chloride 97 L, C arbon Dioxide 38 H, Anion Gap 6.9, BUN 24 H, Creatinine 0.60 L, Estimated Creat Clear 115, Estimated GFR 143, Est GFR ( Amer) 173, Glucose 140 H, Calcium 9.6, Magnesium 1.5 L, Total Bilirubin 1.1, AST 67 H, ALT 16, Alkaline Phosphatase 111, Total Protein 7.3, Albumin 4.1, Globulin 3.2, Albumin/Globulin Ratio 1.3, Lipase 62, Plasma/Serum Alcohol < 10 12/02/23 21:05: Lactate 1.2, Blood Type O Positive, Antibody Screen Negative 12/03/23 03:10: Stool Occult Blood Positive A, Stl Aeromonas (PCR) Not detected, Stl C. cayetanensis PCR Not detected, Stool Rotavirus (PCR) Not detected, Stl Adenov F 40/41 PCR Not detected, Stool Astrovirus (PCR) Not detected, Stool Campylobacter PCR Not detected, Stl C.difficile Tox PCR Not detected, Stool Cryptosporidium PCR Not detected, Stl E.coli Shiga Tox PCR Not detected, Stool E coli O157 PCR Not detected, Stl Enterotoxigenic E PCR Not detected, Stool EPEC (PCR) Not detected, Stool EAEC (PCR) Not detected, Stl E. histolytica PCR Not detected, Stool Giardia Lamblia PCR Not detected, Stool Salmonella PCR Not detected, Stool Sapovirus (PCR) Not detected, Stl P. shigelloides PCR Not detected, Stl Shigella/EIEC PCR Not detected, St Y.enterocolitica PCR Not detected, Stool Vibrio (PCR) Not detected, Stl Vibrio cholerae PCR Not detected, Stl Norovirus GI/GII PCR Not detected Assessment and Plan *Assessment and plan (1) Esophagitis with gastritis: Status: Acute Category: Medical Code(s): K29.70 - Gastritis, unspecified, without bleeding; K20.90 - Esophagitis, unspecified without bleeding Plan Plan for upper endoscopy
[2023-12-03 06:49] LABS: Basophils % 0.7 % (0.1-2.0); Eosinophils # 0.1 K/mm3 (0.0-0.4); Eosinophils % 1.1 % (0.1-12.0); Hematocrit 35.7 % (42.0-52.0); Lymphocytes # 1.9 K/mm3 (0.7-4.5); Lymphocytes % 29.6 % (10-50); Mean Corpuscular HGB Conc 33.9 g/dL (31.8-35.4); Mean Corpuscular Hemoglobin 37.6 pg (27.0-31.2); Mean Corpuscular Volume 110.7 fl (80-94); Monocytes # 0.4 K/mm3 (0.1-1.0); Monocytes % 6.7 % (1.7-9.3); Platelet Count 224 K/mm3 (142-424); Red Blood Count 3.23 M/mm3 (4.60-6.20); Red Cell Distribution Width 15.5 % (11.5-17.5); White Blood Count 6.5 K/mm3 (4.8-10.8)
[2023-12-03 06:56] LABS: Chloride 105 mmol/L (98-107); Potassium 3.4 mmoL/L (3.5-5.1); Sodium 139 mmol/L (136-145)
[2023-12-03 06:58] LABS: Alanine Aminotransferase 10 U/L (12-78); Aspartate Amino Transferase 60 U/L (17-59); Blood Urea Nitrogen 22 mg/dl (9-20); Creatinine Clearance Estimated 127 mL/min (50-200); Estimated Glomerular Filt Rate 143 ml/min (>60); GFR (African American) 173 ML/MIN (>60)
[2023-12-03 06:59] LABS: Albumin Level 3.4 g/dl (3.5-5.0); Albumin/Globulin Ratio 1.2 (1.1-1.8); Alkaline Phosphatase 104 U/L (38-126); Anion Gap 9.4 mEq/L (5-15); Bilirubin,Total 0.9 mg/dl (0.2-1.3); Calcium 8.6 mg/dl (8.4-10.2); Carbon Dioxide 28 mmol/L (22.0-30.0); Globulin 2.8 g/dL (1.3-3.2); Glucose 96 mg/dl (74-100); Total Protein,Serum 6.2 g/dl (6.3-8.2)
--- NOTE | 2023-12-03 07:36 | EXP.ANES.CKL ---
[facility] Disclaimer: The information contained in this section may have been updated after the patient was seen, as this information can be updated by other users. Medical History (Updated 12/03/23 @ 03:28 by Joseph Larkin APRN) Depression Anxiety Traumatic brain injury Surgical History History of foot surgery H/O lithotripsy History of appendectomy H/O right knee surgery H/O anterior cruciate ligament surgery Previous back surgery Family History Grandmother Cancer Diabetes Stroke Grandfather Cancer Mother Diabetes Hypertension Social History Smoking Status: Current every day smoker tobacco type: cigarettes packs per day: 1 alcohol intake: current alcohol intake frequency: a few times a week counseling provided: provider counseling substance use type: former substance user and prescription drug current occupational status: disabled Travel in the last 8 weeks: None household members: significant other housing: house current occupational exposures/hazards: No caffeine: No H Anesthesia Checklist Patient Identification Patient Identification: Arm Band Structural Data Admitted From: Home Planned Operative Procedure/s: EGD Consent for Planned Operative Procedure(s) Verified: Yes Verified Documents: Surgical Consent and History and Physical NPO Status Verified Time NPO: 00:00 Additional verifications Anesthesia Reactions: No Hx Blood Transfusions: No Blood Transfusion Reaction: No Airway Assessment Mallampati Score:: Class II C-Spine Mobility Assessed: Yes TMJ Mobility Assessed: Yes Dentition: Poor Dentition Neurological Assessment Level of Consciousness: Awake, Alert and Appropriate Anesthesia Plan Anesthesia Risk discussed: Yes Anesthesia Plan: Verified ASA Class: III Anesthesia Type: MAC
[2023-12-03] MEDS: EPINEPHrine 0.1 MG/ML 10ML SYRINGE (CRASH CART) 0.299999999999999989 MG IV (08:06)
--- NOTE | 2023-12-03 08:12 | P.PCN_ITS ---
Procedure: Date: 12/03/23 Patient Date of :: 1975 Procedure Performed:: Esophagogastroduodenoscopy with injection of epinephrine for assurance of hemostasis Indications:: Patient is a 48-year-old male with history of alcohol abuse/dependence. On Suboxone for history of drug use. Prior history of ulcer by endoscopy in 2019. Had been on Protonix but states that he has not taken that in some time. He takes several 800 mg ibuprofen daily. He presented to the emergency department with epigastric pain and nausea. He was admitted for inpatient management. . Performing Provider:: Evan Nieves MD Referring Provider:: Aj Valentine MD Sedation:: MAC sedation Procedure:: Patient history was obtained and appropriate physical examination was performed. Patient's medications and allergies were reviewed. Informed consent was obtained after explaining the benefits, alternatives, and risks of the procedure including, but not limited to, bleeding, perforation, missed lesions, and adverse reaction to anesthesia medications. Patient was transported to endoscopy procedure room. Patient was connected to monitoring devices. Throughout the procedure the patient's blood pressure, pulse, and oxygen saturations were monitored continuously. Patient identification and planned procedure were verified by the staff. Patient was positioned in lateral decubitus position. Olympus endoscope was inserted via the oropharynx. Esophagus was cannulated. There was some tortuosity to the esophagus consistent with mild esophageal dysmotility. Gastroesophageal junction was encountered at 40 cm. There was minimal Schatzki's ring. Stomach was cannulated and insufflated. Retroflexion revealed tiny hiatal hernia measuring about 2 cm. There was moderately severe diffuse nonerosive gastritis characterized by edema and erythema with mild induration throughout the stomach. There were a few erosions however at the prepyloric location. Pylorus was traversed. Within the duodenal bulb there was moderately severe nonerosive duodenitis. However in the second portion of the duodenum there were multiple duodenal ulcers. Most of these were relatively small. There was a deep duodenal ulcer in the second portion of the duodenum seemingly just proximal to the ampulla. There was no evidence of any active bleeding but there is significant inflammation and possible visible vessel. The endoscope w as able to be advanced beyond this. It was withdrawn into the proximal duodenum and epinephrine was injected circumferentially in the region of the inflamed ulcer with possible visible vessel as a red spot . There is minimal transient oozing but this ceased. Endoscope was withdrawn as the stomach was desufflated. . Findings:: Findings consistent with esophageal dysmotility Minimal Schatzki's ring Gastroesophageal junction at 40 cm Moderately severe diffuse gastritis Moderately severe duodenitis Multiple duodenal ulcers second portion of the duodenum 1 of which appeared more inflamed with possible visible vessel (red spot), epinephrine injected . Recommendations:: Continue high-dose proton pump inhibitors. May add Carafate. Monitor for hemoglobin stability. Refrain from NSAIDs. Complications:: none immediate Estimated blood obtained (mL): 3 Colonoscopy Component Colonoscopy Component Was a colonoscopy performed during today's procedure?: No
[2023-12-03 08:22] LABS: Hemoglobin 12.2 g/dL (14.1-18.0)
[2023-12-03] MEDS: BUPRENORPHINE/NALOXONE 8MG/2MG ODT 2 EACH SL (09:15)
[2023-12-03] MEDS: PROCHLORPERAZINE 10MG/2ML VIAL 5 MG IV (09:23)
[2023-12-03] MEDS: DEXAMETHASONE 4MG/ML 1ML VIAL 6 MG IV (09:43)
[2023-12-03] MEDS: DICYCLOMINE 10MG CAPSULE 10 MG PO ×3 (09:43→20:50)
[2023-12-03] MEDS: GABAPENTIN 300MG CAPSULE 300 MG PO ×2 (09:43→20:50)
--- NOTE | 2023-12-03 10:31 | EXP.ACUTE.PN ---
Subjective *Date: 12/03/23 *Time: 20:01 Interval history: Taken for EGD this morning. Found to have oozing ulcer. Patient still having significant pain overnight in his abdomen. Will resume his home Suboxone today. Still having nausea, did not respond to Zofran. Complaining of back pain radiating down his left leg as well. Has significant back history/pain history. Reports symptoms similar to sciatica he has had in the past. Stable on room air no fever. Denies chest pain or shortness of breath. Medical Exam Vital signs and Labs for Last 24 Hours: Vital Signs Temp Pulse Pulse Resp BP BP Pulse Ox 12/03/23 09:45 70 16 143/89 H 90 L 12/03/23 09:30 70 18 157/101 H 90 L 12/03/23 09:15 84 20 137/93 H 91 L 12/03/23 09:15 12/03/23 09:00 79 20 154/98 H 95 12/03/23 09:00 12/03/23 08:45 73 20 157/98 H 94 L 12/03/23 08:15 98.3 F 74 16 144/95 H 97 12/03/23 07:52 12/03/23 06:56 12/03/23 05:00 12/03/23 04:00 74 12/03/23 04:00 97.9 F 75 16 149/83 H 97 12/03/23 02:48 12/03/23 01:38 98 12/03/23 01:00 12/02/23 23:15 98.7 F 83 17 127/57 L 98 12/02/23 22:52 98.2 F 80 16 143/106 H 12/02/23 20:54 91 H 16 129/90 99 12/02/23 20:42 98.2 F 105 H 16 151/122 H 100 O2 Del Method O2 Flow Rate 12/03/23 09:45 Room Air 12/03/23 09:30 Room Air 12/03/23 09:15 Room Air 12/03/23 09:15 Room Air 12/03/23 09:00 Room Air 12/03/23 09:00 Room Air 12/03/23 08:45 Room Air 12/03/23 08:15 Room Air 12/03/23 07:52 Nasal Cannula 5 12/03/23 06:56 Room Air 12/03/23 05:00 Room Air 12/03/23 04:00 12/03/23 04:00 Room Air 12/03/23 02:48 Room Air 12/03/23 01:38 Room Air 12/03/23 01:00 Room Air 12/02/23 23:15 Room Air 12/02/23 22:52 Room Air 12/02/23 20:54 Room Air 12/02/23 20:42 Room Air Intake and Output 12/02/23 12/03/23 12/03/23 23:59 07:59 15:59 Intake Total 864 / 864 Output Total 0 / 0 Balance 864 / 864 Intake: Intake, Total IV Amount 864 / 864 0.9 % Sodium Chloride 1000ML 1, 517 / 517 000 ml @ 100 mls/hr IV .Q10H JOSE Rx#:[id number] KCl 20mEq/100ml 100 ml @ 50 mls 300 / 300 /hr IV Q2H JOSE Rx#:[id number] Pantoprazole Sodium 80 mg In 0. 47 / 47 9 % Sodium Chloride 100 ml @ 10 mls/hr IV .Q10H JOSE Rx#: [id number] Output: Output, Urine Amount 0 / 0 Other: Number of Unmeasured Voids 1 Number of Bowel Movements 1 Weight 60.056 kg 60.056 kg Patient Weight 12/03/23 23:59 Weight 60.056 kg Laboratory Results - last 24 hr 12/02/23 20:51: WBC 8.5, RBC 3.87 L, Hgb 14.4, Hct 42.2, MCV 109.1 H, MCH 37.1 H, MCHC 34.0, RDW 15.7, Plt Count 271, MPV 7.8, Neut % (Auto) 78.1, Lymph % (Auto) 15.1, [place] % (Auto) 5.4, Eos % (Auto) 0.7, Baso % (Auto) 0.7, Neut # (Auto) 6.7, Lymph # (Auto) 1.3, [place] # (Auto) 0.5, Eos # (Auto) 0.1, Baso # (Auto) 0.1, PT 10.9, INR 1.01, Sodium 139, Potassium 2.9 L*, Chloride 97 L, Carbon Dioxide 38 H, Anion Gap 6.9, BUN 24 H, Creatinine 0.60 L, Estimated Creat Clear 115, Estimated GFR 143, Est GFR ( Amer) 173, Glucose 140 H, Calcium 9.6, Magnesium 1.5 L, Total Bilirubin 1.1, AST 67 H, ALT 16, Alkaline Phosphatase 111, Total Protein 7.3, Albumin 4.1, Globulin 3.2, Albumin/Globulin Ratio 1.3, Lipase 62, Plasma/Serum Alcohol < 10 12/02/23 21:05: Lactate 1.2, Blood Type O Positive, Antibody Screen Negative 12/03/23 03:10: Stool Occult Blood Positive A, Stl Aeromonas (PCR) Not detected, Stl C. cayetanensis PCR Not detected, Stool Rotavirus (PCR) Not detected, Stl Adenov F 40/41 PCR Not detected, Stool Astrovirus (PCR) Not detected, Stool Campylobacter PCR Not detected, Stl C.difficile Tox PCR Not detected, Stool Cryptosporidium PCR Not detected, Stl E.coli Shiga Tox PCR Not detected, Stool E coli O157 PCR Not detected, Stl Enterotoxigenic E PCR Not detected, Stool EPEC (PCR) Not detected, Stool EAEC (PCR) Not detected, Stl E. histolytica PCR Not detected, Stool Giardia Lamblia PCR Not detected, Stool Salmonella PCR Not detected, Stool Sapovirus (PCR) Not detected, Stl P. shigelloides PCR Not detected, Stl Shigella/EIEC PCR Not detected, St Y.enterocolitica PCR Not detected, Stool Vibrio (PCR) Not detected, Stl Vibrio cholerae PCR Not detected, Stl Norovirus GI/GII PCR Not detected 12/03/23 06:27: WBC 6.5, RBC 3.23 L, Hgb 12.2 L D, Hct 35.7 L, MCV 110.7 H, MCH 37.6 H, MCHC 33.9, RDW 15.5, Plt Count 224, MPV 8.0, Neut % (Auto) 62.0, Lymph % (Auto) 29.6, [place] % (Auto) 6.7, Eos % (Auto) 1.1, Baso % (Auto) 0.7, Neut # (Auto) 4.0, Lymph # (Auto) 1.9, [place] # (Auto) 0.4, Eos # (Auto) 0.1, Baso # (Auto) 0.0, Sodium 139, Potassium 3.4 L, Chloride 105, Carbon Dioxide 28, Anion Gap 9.4, BUN 22 H, Creatinine 0.60 L, Estimated Creat Clear 127, Estimated GFR 143, Est GFR ( Amer) 173, Glucose 96 D, Calcium 8.6, Magnesium 2.0 D, Total Bilirubin 0.9, AST 60 H, ALT 10 L D, Alkaline Phosphatase 104, Total Protein 6.2 L, Albumin 3.4 L D, Globulin 2.8, Albumin/Globulin Ratio 1.2 I & O for Labs for Last 24 Hours: Intake & Output 11/30/23 12/01/23 12/02/23 12/03/23 23:59 23:59 23:59 23:59 Intake Total 864 / 864 Output Total 0 / 0 Balance 864 / 864 Weight 60.056 kg 60.056 kg Constitutional: Present mild distress, thin, chronically ill appearing, cooperative and agitated Head: Present atraumatic and normocephalic ENT: Present normal exam Comment:: Poor dentition Respiratory: Present prolonged expiratory phase, rhonchi and normal respiratory effort; Absent wheezes or crackles Cardiac: Present Reg Rate and Rhythm GI: Present soft, tenderness (Diffuse but worse in epigastric region) and normal bowel sounds; Absent distention Extremities: Present normal inspection and full ROM; Absent edema Comment:: Thin Skin: Present intact; Absent erythema or rash Neuro: Present Grossly Intact, alert, awake, oriented x 3 and moves all extremities Assessment and Plan *Assessment and plan (1) Upper GI bleed: Status: Acute Category: Medical Code(s): K92.2 - Gastrointestinal hemorrhage, unspecified (2) Acute blood loss anemia: Status: Acute Category: Medical Code(s): D62 - Acute posthemorrhagic anemia (3) Duodenal ulcer: Status: Acute Category: Medical Code(s): K26.9 - Duodenal ulcer, unspecified as acute or chronic, without hemorrhage or perforation (4) Abdominal pain, acute: Status: Acute Category: Medical Code(s): R10.9 - Unspecified abdominal pain (5) Nausea & vomiting: Status: Acute Qualifiers: Vomiting type: unspecified Qualified Code(s): R11.2 - Nausea with vomiting, unspecified Category: Medical Code(s): R11.2 - Nausea with vomiting, unspecified (6) Melena: Status: Acute Category: Medical Code(s): K92.1 - Melena (7) Esophagitis with gastritis: Status: Acute Category: Medical Code(s): K29.70 - Gastritis, unspecified, without bleeding; K20.90 - Esophagitis, unspecified without bleeding (8) Tobacco abuse: Status: Chronic Category: Medical Code(s): Z72.0 - Tobacco use (9) Drug abuse and dependence: Status: Acute Category: Medical Code(s): F19.20 - Other psychoactive substance dependence, uncomplicated Plan 48 year-old male with a PMHx of heart disease, asthma, bronchitis, GERD with past duodenal ulcer, drug and alcohol dependence on Suboxone, anxiety, chronic pain on NSAID, tobacco use disorder who presented for evaluation of of intractable vomiting and dark stool. arrive normotensive but tachycardic. Initial workup will be conducted with hematologic labs CT scan of the abdomen pelvis. Initial interventions include crystalloid bolus Protonix drip Toradol Tylenol antiemetics. Initial workup reviewed by me shows that HH normal. no signs of bleeding. Electrolytes depleted. replaced at ED. CT of abdomen negative. Surgeon was consulted.. patient placed on protonix continuous infusion. Discussed with ED provider for admission. Taken for EGD today, found to have oozing ulcer. Hemoglobin has dropped. Needs continued monitoring and inpatient management. Problems addressed as follows: Acute blood loss anemia due to duodenal ulcer Melena Intractable nausea and vomiting -Surgery consulted and assisting with care, discussed case today. Will advance diet to clears after EGD. Found to have oozing duodenal ulcer. Injected with epinephrine. -Hemoglobin down to 12 this morning from 14.4 on admission. Hematocrit 35. Repeat CBC, CMP, magnesium ordered for the morning. -Continue Protonix IV 40 mg twice daily - Diarrhea panel negative, stool occult positive -BUN elevated at 22, creatinine 0.6. Liver enzymes stable with bili of 0.9, AST 60, ALT 10 Intractable pain Opiate dependence -Resume home Suboxone regimen -Compazine x 1 today for nausea. Continue Zofran 4 mg as needed every 6-8 hours. -GI cocktail available every 6 hours as needed -Complaining of back pain with sciatica, initiated gabapentin 300 mg History of multidrug abuse including alcohol and tobacco dependence Last drink before admission Monitors for CIWA On nicotine patch SCD for DVT prophylaxis. Full code Clear liquid diet High risk for decompensation.
[2023-12-03] MEDS: 0.9 % SODIUM CHLORIDE 1000ML 1,000 ML 100 ML IV (17:59)
--- NOTE | 2023-12-03 18:40 | PC.NURSE ---
pt reports still having a small amount of blood in his stool
[2023-12-03] MEDS: QUETIAPINE 25MG TABLET 25 MG PO (21:57)
[2023-12-04] VITALS (8 sets, daily range): BP systolic 115–152; BP diastolic 72–92; PULSE 59–88; RESP 16–21; TEMP 36.5–36.9; O2SAT 96–100
[2023-12-04] MEDS: LORazepam 2MG/ML VIAL 0.25 MG IV (02:02)
[2023-12-04] MEDS: SODIUM CHLORIDE 0.9% 10ML VIAL 10 ML IV (02:03)
[2023-12-04] MEDS: BELLADONNA ALKALOIDS 60 ML ML PO ×4 (02:51→20:47)
[2023-12-04 03:23] LABS: Basophils % 0.4 % (0.1-2.0); Eosinophils % 0.1 % (0.1-12.0); Hematocrit 30.5 % (42.0-52.0); Lymphocytes # 1.7 K/mm3 (0.7-4.5); Lymphocytes % 23.9 % (10-50); Mean Corpuscular HGB Conc 32.9 g/dL (31.8-35.4); Mean Corpuscular Hemoglobin 36.3 pg (27.0-31.2); Mean Corpuscular Volume 110.2 fl (80-94); Mean Platelet Volume 8.2 fl (7.4-10.4); Monocytes # 0.3 K/mm3 (0.1-1.0); Monocytes % 4.3 % (1.7-9.3); Neutrophils % 71.3 % (37.0-80.0); Platelet Count 182 K/mm3 (142-424); Red Blood Count 2.77 M/mm3 (4.60-6.20); Red Cell Distribution Width 15.4 % (11.5-17.5)
[2023-12-04 03:26] LABS: Chloride 99 mmol/L (98-107)
[2023-12-04 03:27] LABS: Potassium 3.4 mmoL/L (3.5-5.1); Sodium 133 mmol/L (136-145)
[2023-12-04 03:28] LABS: Hemoglobin 10.1 g/dL (14.1-18.0)
[2023-12-04 03:29] LABS: Alanine Aminotransferase 9 U/L (12-78); Alkaline Phosphatase 79 U/L (38-126); Anion Gap 7.4 mEq/L (5-15); Aspartate Amino Transferase 45 U/L (17-59); Bilirubin,Total 0.7 mg/dl (0.2-1.3); Blood Urea Nitrogen 14 mg/dl (9-20); Carbon Dioxide 30 mmol/L (22.0-30.0); Creatinine Clearance Estimated 108 mL/min (50-200); Estimated Glomerular Filt Rate 120 ml/min (>60); GFR (African American) 145 ML/MIN (>60)
[2023-12-04 03:30] LABS: Albumin/Globulin Ratio 1.2 (1.1-1.8); Calcium 8.4 mg/dl (8.4-10.2); Globulin 2.5 g/dL (1.3-3.2); Glucose 118 mg/dl (74-100); Magnesium 1.6 mg/dl (1.6-2.3); Total Protein,Serum 5.5 g/dl (6.3-8.2)
--- NOTE | 2023-12-04 05:30 | PC.NURSE ---
Pt has not rested much throughout the night. Pt complained of anxiety but verbalized relief after treatment per Mar. Pt also has had multiple bloody bowel movements throughout the night. Provider notified and arrived to bedside to assess. H&H ordered.
--- NOTE | 2023-12-04 06:07 | P.PN_ITS ---
Subjective *Date: 12/04/23 *Time: 06:07 Interval history: Notified overnight patient with bloody bowel movements. Patient reports several episodes of bloody bowel movements, dissipating over the course of the evening. I did visualize 1 episode of liquid output in the hat of the toilet. Dark maroon color in nature only about a tablespoon size. Patient reported crampy abdominal pain associated with this. Repeat H&H was mildly down from previous. Hemoglobin now 10 from 12 and 14 from admission. Vital signs been stable throughout. Patient received 1 dose of IV Ativan for some mild anxiety. No other episodes of bloody output since approximately 3 AM. Medical Exam Vital signs and Labs for Last 24 Hours: Vital Signs Temp Pulse Pulse Resp BP Pulse Ox O2 Del Method 12/04/23 05:00 Room Air 12/04/23 04:00 69 12/04/23 03:00 98.2 F 59 L 16 140/87 96 Room Air 12/04/23 03:00 Room Air 12/04/23 01:00 Room Air 12/04/23 00:00 98.4 F 74 16 152/77 H 98 Room Air 12/03/23 23:00 Room Air 12/03/23 21:00 Room Air 12/03/23 20:00 Room Air 12/03/23 20:00 98.1 F 98 H 18 106/74 L 93 L Room Air 12/03/23 18:39 Room Air 12/03/23 17:00 Room Air 12/03/23 16:00 98 F 73 16 137/64 99 12/03/23 15:00 Room Air 12/03/23 13:00 Room Air 12/03/23 12:45 69 18 118/83 95 Room Air 12/03/23 11:45 69 16 105/70 L 90 L Room Air 12/03/23 11:00 Room Air 12/03/23 10:45 97.8 F 69 16 113/63 91 L Room Air 12/03/23 10:15 97.6 F 72 16 105/70 L 92 L Room Air 12/03/23 09:45 70 16 143/89 H 90 L Room Air 12/03/23 09:30 70 18 157/101 H 90 L Room Air 12/03/23 09:15 84 20 137/93 H 91 L Room Air 12/03/23 09:15 Room Air 12/03/23 09:00 79 20 154/98 H 95 Room Air 12/03/23 09:00 Room Air 12/03/23 08:45 73 20 157/98 H 94 L Room Air 12/03/23 08:15 98.3 F 74 16 144/95 H 97 Room Air 12/03/23 07:52 Nasal Cannula 12/03/23 06:56 Room Air O2 Flow Rate 12/04/23 05:00 12/04/23 04:00 12/04/23 03:00 12/04/23 03:00 12/04/23 01:00 12/04/23 00:00 12/03/23 23:00 12/03/23 21:00 12/03/23 20:00 12/03/23 20:00 12/03/23 18:39 12/03/23 17:00 12/03/23 16:00 12/03/23 15:00 12/03/23 13:00 12/03/23 12:45 12/03/23 11:45 12/03/23 11:00 12/03/23 10:45 12/03/23 10:15 12/03/23 09:45 12/03/23 09:30 12/03/23 09:15 12/03/23 09:15 12/03/23 09:00 12/03/23 09:00 12/03/23 08:45 12/03/23 08:15 12/03/23 07:52 5 12/03/23 06:56 Intake and Output 12/03/23 12/03/23 12/04/23 15:59 23:59 07:59 Intake Total 480 / 1344 1109 / 1109 Output Total 0 / 0 Balance 480 / 1344 1109 / 1109 Intake: Intake, Oral Amount 480 / 480 Intake, Total IV Amount 1109 / 1109 0.9 % Sodium Chloride 1000ML 1, 1109 / 1109 000 ml @ 100 mls/hr IV .Q10H [facility] Rx#:[id number] Output: Output, Urine Amount 0 / 0 Other: Number of Unmeasured Voids 1 Number of Bowel Movements 1 3 Laboratory Results - last 24 hr 12/03/23 06:27: WBC 6.5, RBC 3.23 L, Hgb 12.2 L D, Hct 35.7 L, MCV 110.7 H, MCH 37.6 H, MCHC 33.9, RDW 15.5, Plt Count 224, MPV 8.0, Neut % (Auto) 62.0, Lymph % (Auto) 29.6, [place] % (Auto) 6.7, Eos % (Auto) 1.1, Baso % (Auto) 0.7, Neut # (Auto) 4.0, Lymph # (Auto) 1.9, [place] # (Auto) 0.4, Eos # (Auto) 0.1, Baso # (Auto) 0.0, Sodium 139, Potassium 3.4 L, Chloride 105, Carbon Dioxide 28, Anion Gap 9.4, BUN 22 H, Creatinine 0.60 L, Estimated Creat Clear 127, Estimated GFR 143, Est GFR ( Amer) 173, Glucose 96 D, Calcium 8.6, Magnesium 2.0 D, Total Bilirubin 0.9, AST 60 H, ALT 10 L D, Alkaline Phosphatase 104, Total Protein 6.2 L, Albumin 3.4 L D, Globulin 2.8, Albumin/Globulin Ratio 1.2 12/04/23 03:15: WBC 7.0, RBC 2.77 L, Hgb 10.1 L D, Hct 30.5 L, MCV 110.2 H, MCH 36.3 H, MCHC 32.9, RDW 15.4, Plt Count 182, MPV 8.2, Neut % (Auto) 71.3, Lymph % (Auto) 23.9, [place] % (Auto) 4.3, Eos % (Auto) 0.1, Baso % (Auto) 0.4, Neut # (Auto) 5.0, Lymph # (Auto) 1.7, [place] # (Auto) 0.3, Eos # (Auto) 0.0, Baso # (Auto) 0.0, Sodium 133 L, Potassium 3.4 L, Chloride 99, Carbon Dioxide 30, Anion Gap 7.4, BUN 14 D, Creatinine 0.70, Estimated Creat Clear 108, Estimated GFR 120, Est GFR ( Amer) 145, Glucose 118 H D, Calcium 8.4, Magnesium 1.6 D, Total Bilirubin 0.7, AST 45, ALT 9 L, Alkaline Phosphatase 79, Total Protein 5.5 L, Albumin 3.0 L D, Globulin 2.5, Albumin/Globulin Ratio 1.2 I & O for Labs for Last 24 Hours: Intake & Output 12/01/23 12/02/23 12/03/23 12/04/23 23:59 23:59 23:59 23:59 Intake Total 1344 / 1344 1109 / 1109 Output Total 0 / 0 Balance 1344 / 1344 1109 / 1109 Weight 60.056 kg 60.056 kg
--- NOTE | 2023-12-04 07:05 | P.PN_ITS ---
Subjective Narrative: Patient reports some bright red blood per rectum noted in toilet. Discussion with nurse practitioner confirms that this was a small amount of likely melena . Exam Data for Last 24 hours Vital signs and Labs for Last 24 Hours: Temp Pulse Resp BP Pulse Ox O2 Del Method O2 Flow Rate 98.1 F 67 18 123/75 99 Room Air 5 12/04/23 06:00 12/04/23 06:00 12/04/23 06:00 12/04/23 06:00 12/04/23 06:00 12/04/23 07:00 12/03/23 07:52 Laboratory Results - last 24 hr 12/03/23 06:27: WBC 6.5, RBC 3.23 L, Hgb 12.2 L D, Hct 35.7 L, MCV 110.7 H, MCH 37.6 H, MCHC 33.9, RDW 15.5, Plt Count 224, MPV 8.0, Neut % (Auto) 62.0, Lymph % (Auto) 29.6, [place] % (Auto) 6.7, Eos % (Auto) 1.1, Baso % (Auto) 0.7, Neut # (Auto) 4.0, Lymph # (Auto) 1.9, [place] # (Auto) 0.4, Eos # (Auto) 0.1, Baso # (Auto) 0.0, Sodium 139, Potassium 3.4 L, Chloride 105, Carbon Dioxide 28, Anion Gap 9.4, BUN 22 H, Creatinine 0.60 L, Estimated Creat Clear 127, Estimated GFR 143, Est GFR ( Amer) 173, Glucose 96 D, Calcium 8.6, Magnesium 2.0 D, Total Bilirubin 0.9, AST 60 H, ALT 10 L D, Alkaline Phosphatase 104, Total Protein 6.2 L, Albumin 3.4 L D, Globulin 2.8, Albumin/Globulin Ratio 1.2 12/04/23 03:15: WBC 7.0, RBC 2.77 L, Hgb 10.1 L D, Hct 30.5 L, MCV 110.2 H, MCH 36.3 H, MCHC 32.9, RDW 15.4, Plt Count 182, MPV 8.2, Neut % (Auto) 71.3, Lymph % (Auto) 23.9, [place] % (Auto) 4.3, Eos % (Auto) 0.1, Baso % (Auto) 0.4, Neut # (Auto) 5.0, Lymph # (Auto) 1.7, [place] # (Auto) 0.3, Eos # (Auto) 0.0, Baso # (Auto) 0.0, Sodium 133 L, Potassium 3.4 L, Chloride 99, Carbon Dioxide 30, Anion Gap 7.4, BUN 14 D, Creatinine 0.70, Estimated Creat Clear 108, Estimated GFR 120, Est GFR ( Amer) 145, Glucose 118 H D, Calcium 8.4, Magnesium 1.6 D, Total Bilirubin 0.7, AST 45, ALT 9 L, Alkaline Phosphatase 79, Total Protein 5.5 L, Albumin 3.0 L D, Globulin 2.5, Albumin/Globulin Ratio 1.2 I & O for Last 24 hours: Intake & Output 12/01/23 12/02/23 12/03/23 12/04/23 11:59 11:59 11:59 11:59 Intake Total 864 / 864 1589 / 1589 Output Total 0 / 0 0 / 0 Balance 864 / 864 1589 / 1589 Weight 132 lb 6.413 oz 132 lb 6.201 oz Constitutional Constitutional: no acute distress *Routine Respiratory Exam Respiratory: Absent respiratory distress *Routine Cardiovascular Exam Cardiovascular: Absent tachycardia *Routine Abdominal Exam Abdominal: Present soft Progress Note: A&P Assessment and plan (1) Upper GI bleed: Status: Acute (2) Acute blood loss anemia: Status: Acute Assessment and plan: Hemoglobin is slightly down to 10.1 today Continue close follow-up (3) Duodenal ulcer: Status: Acute Assessment and plan: Continue proton pump inhibition (4) Abdominal pain, acute: Status: Acute (5) Nausea & vomiting: Status: Acute (6) Melena: Status: Acute (7) Esophagitis with gastritis: Status: Acute (8) Tobacco abuse: Status: Chronic (9) Drug abuse and dependence: Status: Acute Assessment and Plan Assessment and Plan for All Diagnoses:: Continue ongoing observation to confirm hemoglobin stability Limited/cautious diet advancement N.p.o. after midnight
[2023-12-04 09:27] LABS: Basophils % 0.3 % (0.1-2.0); Eosinophils % 0.4 % (0.1-12.0); Hematocrit 31.3 % (42.0-52.0); Hemoglobin 10.3 g/dL (14.1-18.0); Lymphocytes % 31.7 % (10-50); Mean Corpuscular HGB Conc 32.9 g/dL (31.8-35.4); Mean Corpuscular Hemoglobin 36.8 pg (27.0-31.2); Mean Corpuscular Volume 111.8 fl (80-94); Mean Platelet Volume 7.5 fl (7.4-10.4); Monocytes # 0.3 K/mm3 (0.1-1.0); Monocytes % 3.9 % (1.7-9.3); Neutrophils # 4.1 K/mm3 (1.8-7.8); Neutrophils % 63.6 % (37.0-80.0); Platelet Count 187 K/mm3 (142-424); Red Cell Distribution Width 15.6 % (11.5-17.5); White Blood Count 6.4 K/mm3 (4.8-10.8)
--- NOTE | 2023-12-04 09:42 | SW/DCPLANNER ---
I received a consult on this patient regarding resources for alcohol abuse. Patient stated that he drinks about 10 shots of Fireball a day at least two beers. Patient expressed that he is interested in an outpatient setting. Patient currently is enrolled w/ [facility] and has an apt on Sunday12/07/23. Patient and I discussed additional options as well including Carol Singleton at [facility]. Patient is interested in outpatient appointment w/ Carol Singleton and this will be scheduled by [employer]. Patient and I did discuss [facility] Resource List as well. I will continue to follow up w/ this patient and outpatient appointments. Discharge date is unknown at this time.
[2023-12-04] MEDS: DICYCLOMINE 10MG CAPSULE 10 MG PO ×3 (09:50→20:47)
[2023-12-04] MEDS: THIAMINE 100MG TABLET 100 MG PO (09:50)
[2023-12-04] MEDS: GABAPENTIN 300MG CAPSULE 300 MG PO ×2 (09:50→20:48)
[2023-12-04] MEDS: FOLIC ACID 1MG TABLET 1 MG PO (09:50)
[2023-12-04] MEDS: BUPRENORPHINE/NALOXONE 8MG/2MG ODT 2 EACH SL (09:50)
[2023-12-04] MEDS: 0.9 % SODIUM CHLORIDE 1000ML 1,000 ML 100 ML IV (09:57)
[2023-12-04] MEDS: PANTOPRAZOLE 40MG VIAL 40 MG IV ×2 (12:35→20:48)
--- NOTE | 2023-12-04 16:32 | P.PN_ITS ---
Subjective *Date: 12/04/23 *Time: 16:32 Interval history: seen at bedside, he mentions he had blood in BM today Exam Data for Last 24 hours Vital signs and Labs for Last 24 Hours: Temp Pulse Resp BP Pulse Ox O2 Del Method O2 Flow Rate 98.3 F 65 19 131/89 99 Room Air 5 12/04/23 16:00 12/04/23 16:00 12/04/23 16:00 12/04/23 16:00 12/04/23 16:00 12/04/23 16:00 12/03/23 07:52 Laboratory Results - last 24 hr 12/04/23 03:15: WBC 7.0, RBC 2.77 L, Hgb 10.1 L D, Hct 30.5 L, MCV 110.2 H, MCH 36.3 H, MCHC 32.9, RDW 15.4, Plt Count 182, MPV 8.2, Neut % (Auto) 71.3, Lymph % (Auto) 23.9, [place] % (Auto) 4.3, Eos % (Auto) 0.1, Baso % (Auto) 0.4, Neut # (Auto) 5.0, Lymph # (Auto) 1.7, [place] # (Auto) 0.3, Eos # (Auto) 0.0, Baso # (Auto) 0.0, Sodium 133 L, Potassium 3.4 L, Chloride 99, Carbon Dioxide 30, Anion Gap 7.4, BUN 14 D, Creatinine 0.70, Estimated Creat Clear 108, Estimated GFR 120, Est GFR ( Amer) 145, Glucose 118 H D, Calcium 8.4, Magnesium 1.6 D, Total Bilirubin 0.7, AST 45, ALT 9 L, Alkaline Phosphatase 79, Total Protein 5.5 L, Albumin 3.0 L D, Globulin 2.5, Albumin/Globulin Ratio 1.2 12/04/23 09:10: WBC 6.4, RBC 2.80 L, Hgb 10.3 L, Hct 31.3 L, MCV 111.8 H, MCH 36.8 H, MCHC 32.9, RDW 15.6, Plt Count 187, MPV 7.5, Neut % (Auto) 63.6, Lymph % (Auto) 31.7, [place] % (Auto) 3.9, Eos % (Auto) 0.4, Baso % (Auto) 0.3, Neut # (Auto) 4.1, Lymph # (Auto) 2.0, [place] # (Auto) 0.3, Eos # (Auto) 0.0, Baso # (Auto) 0.0 I & O for Last 24 hours: Intake & Output 12/01/23 12/02/23 12/03/23 12/04/23 23:59 23:59 23:59 23:59 Intake Total 1344 / 1344 1709 / 1709 Output Total 0 / 0 0 / 0 Balance 1344 / 1344 1709 / 1709 Weight 60.056 kg 60.056 kg 60.05 kg Constitutional Constitutional: no acute distress *Routine HEENT Exam Head: Present normocephalic Eye: Present EOMI and PERRL ENT: Present mucous membranes moist *Routine Neck Exam Neck: Present supple; Absent lymphadenopathy *Routine Respiratory Exam Respiratory: Present CTA bilaterally *Routine Cardiovascular Exam Cardiovascular: Present RRR *Routine Abdominal Exam Abdominal: Present soft and normoactive bowel sounds; Absent tenderness *Routine Extremities Exam Extremities: Absent cyanosis, clubbing or edema *Routine Skin Exam Skin: Present warm; Absent rash *Routine Neurological Exam Neurological: Present alert and oriented X3 Assessment and Plan *Assessment and plan (1) Upper GI bleed: Status: Acute Category: Medical Code(s): K92.2 - Gastrointestinal hemorrhage, unspecified (2) Acute blood loss anemia: Status: Acute Category: Medical Code(s): D62 - Acute posthemorrhagic anemia (3) Duodenal ulcer: Status: Acute Category: Medical Code(s): K26.9 - Duodenal ulcer, unspecified as acute or chronic, without hemorrhage or perforation (4) Abdominal pain, acute: Status: Acute Category: Medical Code(s): R10.9 - Unspecified abdominal pain (5) Nausea & vomiting: Status: Acute Qualifiers: Vomiting type: unspecified Qualified Code(s): R11.2 - Nausea with vomiting, unspecified Category: Medical Code(s): R11.2 - Nausea with vomiting, unspecified (6) Melena: Status: Acute Category: Medical Code(s): K92.1 - Melena (7) Esophagitis with gastritis: Status: Acute Category: Medical Code(s): K29.70 - Gastritis, unspecified, without bleeding; K20.90 - Esophagitis, uns pecified without bleeding (8) Tobacco abuse: Status: Chronic Category: Medical Code(s): Z72.0 - Tobacco use (9) Drug abuse and dependence: Status: Acute Category: Medical Code(s): F19.20 - Other psychoactive substance dependence, uncomplicated Plan 48 year-old male with a PMHx of heart disease, asthma, bronchitis, GERD with past duodenal ulcer, drug and alcohol dependence on Suboxone, anxiety, chronic pain on NSAID, tobacco use disorder who presented for evaluation of of intractable vomiting and dark stool. arrive normotensive but tachycardic. Initial workup will be conducted with hematologic labs CT scan of the abdomen pelvis. Initial interventions include crystalloid bolus Protonix drip Toradol T ylenol antiemetics. Initial workup reviewed by me shows that HH normal. no signs of bleeding. Electrolytes depleted. replaced at ED. CT of abdomen negative. Surgeon was consulted.. patient placed on protonix continuous infusion. Discussed with ED provider for admission. Taken for EGD today, found to have oozing ulcer. Hemoglobin has dropped. Needs continued monitoring and inpatient management. Problems addressed as follows: Acute blood loss anemia due to duodenal ulcer Melena Intractable nausea and vomiting NPO after MN, on liquid diet s/p EGD. Found to have oozing duodenal ulcer. Injected with epinephrine. monitor Hb -Continue Protonix IV 40 mg twice daily - Diarrhea panel negative, stool occult positive -BUN elevated at 22, creatinine 0.6. Liver enzymes stable with bili of 0.9, AST 60, ALT 10 Intractable pain - improved Opiate dependence -Resume home Suboxone regimen -Compazine x 1 today for nausea. Continue Zofran 4 mg as needed every 6-8 hours. -GI cocktail available every 6 hours as needed -Complaining of back pain with sciatica, initiated gabapentin 300 mg History of multidrug abuse including alcohol and tobacco dependence Last drink before admission Monitors for CIWA On nicotine patch SCD for DVT prophylaxis. Full code Clear liquid diet High risk for decompensation. monitor Hb
[2023-12-04] MEDS: LORazepam 1MG TABLET 1 MG PO (16:50)
[2023-12-04] MEDS: MULTIVITAMIN TABLET 1 EACH PO (18:27)
[2023-12-04] MEDS: LORazepam 2MG/ML VIAL 2 MG IV (18:35)
[2023-12-04 18:44] LABS: Basophils % 0.5 % (0.1-2.0); Eosinophils # 0.1 K/mm3 (0.0-0.4); Eosinophils % 0.7 % (0.1-12.0); Hematocrit 31.6 % (42.0-52.0); Hemoglobin 10.3 g/dL (14.1-18.0); Lymphocytes % 30.8 % (10-50); Mean Corpuscular HGB Conc 32.7 g/dL (31.8-35.4); Mean Corpuscular Hemoglobin 36.8 pg (27.0-31.2); Mean Corpuscular Volume 112.7 fl (80-94); Mean Platelet Volume 7.9 fl (7.4-10.4); Monocytes # 0.2 K/mm3 (0.1-1.0); Monocytes % 3.3 % (1.7-9.3); Neutrophils # 4.1 K/mm3 (1.8-7.8); Neutrophils % 64.6 % (37.0-80.0); Platelet Count 186 K/mm3 (142-424); Red Cell Distribution Width 15.2 % (11.5-17.5); White Blood Count 6.4 K/mm3 (4.8-10.8)
--- NOTE | 2023-12-04 18:46 | PC.NURSE ---
pt done well this morning, only having some anxiety due to having some bloody stools. pt had about 3-4 bloody stools this morning, the last one was dark. pt has had a lot of gas since then, encouraged pt to walk around unit. pt became restless, and had mild tremors. CIWA SCORE 13, TREATED PER PROTOCOL. 1829 CIWA 18, notified and treated per aug. unhooked iv due to fall risk as pt kept moving around room and getting tangled up in it. pt states he is seeing spotes, pts eyes appear heavy and hard to focus. pt cleaning room and making bed, will not sit down. pts girlfriend at bs, encouraged her to call nursing staff if having any questions or concerns.
[2023-12-04] MEDS: LORazepam 1MG TABLET 0.5 MG PO ×2 (19:40→22:02)
[2023-12-04] MEDS: QUETIAPINE 25MG TABLET 25 MG PO (20:48)
[2023-12-05] VITALS: PULSE 66
[2023-12-05 04:00] VITALS: BP 104/62; PULSE 71; PULSE 78; RESP 18; TEMP 36.7; O2SAT 96; BMI 22.8
--- NOTE | 2023-12-05 04:56 | PC.NURSE ---
CIWA scores ranging from 2 to 7. speech slurred from ativan but is oriented. c/o diabetic neuropathy in BLEs. has large surgical scar to mid back. significant other at bedside. patient impulsive at times wanting to go outside. vital signs stable/afebrile. NPO since MN as ordered. Has not had bloody or black stools this shift.
--- NOTE | 2023-12-05 06:44 | EXP.SURG.PN ---
Subjective Narrative: The patient is currently resting. Per nursing he is currently being managed for alcohol withdrawal. No evidence overnight of ongoing gastrointestinal hemorrhage. Exam Data for Last 24 hours Vital signs and Labs for Last 24 Hours: Temp Pulse Resp BP Pulse Ox O2 Del Method O2 Flow Rate 98.1 F 71 18 104/62 L 96 Room Air 5 12/05/23 04:00 12/05/23 04:00 12/05/23 04:00 12/05/23 04:00 12/05/23 04:00 12/05/23 06:39 12/03/23 07:52 Laboratory Results - last 24 hr 12/04/23 09:10: WBC 6.4, RBC 2.80 L, Hgb 10.3 L, Hct 31.3 L, MCV 111.8 H, MCH 36.8 H, MCHC 32.9, RDW 15.6, Plt Count 187, MPV 7.5, Neut % (Auto) 63.6, Lymph % (Auto) 31.7, [place] % (Auto) 3.9, Eos % (Auto) 0.4, Baso % (Auto) 0.3, Neut # (Auto) 4.1, Lymph # (Auto) 2.0, [place] # (Auto) 0.3, Eos # (Auto) 0.0, Baso # (Auto) 0.0 12/04/23 18:22: WBC 6.4, RBC 2.80 L, Hgb 10.3 L, Hct 31.6 L, MCV 112.7 H, MCH 36.8 H, MCHC 32.7, RDW 15.2, Plt Count 186, MPV 7.9, Neut % (Auto) 64.6, Lymph % (Auto) 30.8, [place] % (Auto) 3.3, Eos % (Auto) 0.7, Baso % (Auto) 0.5, Neut # (Auto) 4.1, Lymph # (Auto) 2.0, [place] # (Auto) 0.2, Eos # (Auto) 0.1, Baso # (Auto) 0.0 I & O for Last 24 hours: Intake & Output 12/02/23 12/03/23 12/04/23 12/05/23 11:59 11:59 11:59 11:59 Intake Total 864 / 864 1589 / 1589 1580 / 1580 Output Total 0 / 0 0 / 0 2 / 2 Balance 864 / 864 1589 / 1589 1578 / 1578 Weight 132 lb 6.413 oz 132 lb 6.201 oz 151 lb 3.2 oz Constitutional Constitutional: no acute distress *Routine Respiratory Exam Respiratory: Absent respiratory distress *Routine Cardiovascular Exam Cardiovascular: Absent tachycardia Progress Note: A&P Assessment and plan (1) Upper GI bleed: Status: Acute (2) Acute blood loss anemia: Status: Acute Assessment and plan: Serial hemoglobin measurements yesterday noted to be stable. No need for immediate repeat endoscopic evaluation. Full liquid diet reordered. (3) Duodenal ulcer: Status: Acute Assessment and plan: Continue proton pump inhibition (4) Abdominal pain, acute: Status: Acute (5) Nausea & vomiting: Status: Acute (6) Melena: Status: Acute (7) Esophagitis with gastritis: Status: Acute (8) Tobacco abuse: Status: Chronic (9) Drug abuse and dependence: Status: Acute Assessment and Plan Assessment and Plan for All Diagnoses:: Continue ongoing observation to confirm hemoglobin stability Limited/cautious diet advancement N.p.o. after midnight
[2023-12-05 07:00] LABS: Chloride 104 mmol/L (98-107); Potassium 3.6 mmoL/L (3.5-5.1); Sodium 137 mmol/L (136-145)
[2023-12-05 07:03] LABS: Alanine Aminotransferase 7 U/L (12-78); Albumin Level 2.5 g/dl (3.5-5.0); Albumin/Globulin Ratio 1.1 (1.1-1.8); Alkaline Phosphatase 65 U/L (38-126); Anion Gap 5.6 mEq/L (5-15); Aspartate Amino Transferase 63 U/L (17-59); Bilirubin,Total 0.5 mg/dl (0.2-1.3); Blood Urea Nitrogen 11 mg/dl (9-20); Carbon Dioxide 31 mmol/L (22.0-30.0); Creatinine Clearance Estimated 124 mL/min (50-200); Estimated Glomerular Filt Rate 120 ml/min (>60); GFR (African American) 145 ML/MIN (>60); Globulin 2.2 g/dL (1.3-3.2); Total Protein,Serum 4.7 g/dl (6.3-8.2)
[2023-12-05 07:04] LABS: Calcium 8.1 mg/dl (8.4-10.2); Glucose 89 mg/dl (74-100)
[2023-12-05 08:00] VITALS: BP 141/91; PULSE 61; PULSE 70; RESP 17; TEMP 36.5; O2SAT 99
[2023-12-05 08:34] LABS: Eosinophils # 0.1 K/mm3 (0.0-0.4); Monocytes # 0.2 K/mm3 (0.1-1.0); Monocytes % 4.3 % (1.7-9.3); Neutrophils # 2.9 K/mm3 (1.8-7.8); Red Blood Count 2.44 M/mm3 (4.60-6.20)
[2023-12-05 08:43] LABS: Basophils % 0.5 % (0.1-2.0); Eosinophils % 1.6 % (0.1-12.0); Hematocrit 28.1 % (42.0-52.0); Lymphocytes # 1.8 K/mm3 (0.7-4.5); Mean Corpuscular HGB Conc 32.1 g/dL (31.8-35.4); Mean Corpuscular Hemoglobin 37.1 pg (27.0-31.2); Mean Corpuscular Volume 115.4 fl (80-94); Neutrophils % 57.5 % (37.0-80.0); Platelet Count 178 K/mm3 (142-424); Red Cell Distribution Width 15.5 % (11.5-17.5)
[2023-12-05] MEDS: BUPRENORPHINE/NALOXONE 8MG/2MG ODT 2 EACH SL (09:06)
[2023-12-05] MEDS: THIAMINE 100MG TABLET 100 MG PO (09:06)
[2023-12-05] MEDS: LORazepam 1MG TABLET 1 MG PO ×4 (09:06→20:08)
[2023-12-05] MEDS: FOLIC ACID 1MG TABLET 1 MG PO (09:06)
[2023-12-05] MEDS: GABAPENTIN 300MG CAPSULE 300 MG PO ×2 (09:06→20:08)
[2023-12-05] MEDS: BELLADONNA ALKALOIDS 60 ML ML PO ×3 (09:07→20:08)
[2023-12-05] MEDS: PANTOPRAZOLE 40MG VIAL 40 MG IV (09:07)
[2023-12-05] MEDS: DICYCLOMINE 10MG CAPSULE 10 MG PO ×2 (09:07→20:08)
[2023-12-05] MEDS: SODIUM CHLORIDE 0.9% 10ML VIAL 10 ML IV (09:07)
[2023-12-05] MEDS: NICOTINE 21MG/24HR PATCH 21 MG TD (09:37)
[2023-12-05] MEDS: LORazepam 2MG/ML VIAL 2 MG IV ×2 (10:57→12:16)
[2023-12-05] MEDS: PANTOPRAZOLE SODIUM 80 MG in 0.9 % SODIUM CHLORIDE 100 ML 10 MG IV (11:27)
[2023-12-05 12:00] VITALS: PULSE 90
--- NOTE | 2023-12-05 15:25 | P.PN_ITS ---
Subjective *Date: 12/05/23 *Time: 15:25 Interval history: seen at bedside, complains of blood per rectum, coffee ground BMs, denied abdominal pain Exam Data for Last 24 hours Vital signs and Labs for Last 24 Hours: Temp Pulse Resp BP Pulse Ox O2 Del Method O2 Flow Rate 97.7 F 90 17 141/91 H 99 Room Air 5 12/05/23 08:00 12/05/23 12:00 12/05/23 08:00 12/05/23 08:00 12/05/23 08:00 12/05/23 13:56 12/03/23 07:52 Laboratory Results - last 24 hr 12/04/23 18:22: WBC 6.4, RBC 2.80 L, Hgb 10.3 L, Hct 31.6 L, MCV 112.7 H, MCH 36.8 H, MCHC 32.7, RDW 15.2, Plt Count 186, MPV 7.9, Neut % (Auto) 64.6, Lymph % (Auto) 30.8, [place] % (Auto) 3.3, Eos % (Auto) 0.7, Baso % (Auto) 0.5, Neut # (Auto) 4.1, Lymph # (Auto) 2.0, [place] # (Auto) 0.2, Eos # (Auto) 0.1, Baso # (Auto) 0.0 12/05/23 05:37: WBC 5.0, RBC 2.44 L, Hgb 9.0 L D, Hct 28.1 L, MCV 115.4 H, MCH 37.1 H, MCHC 32.1, RDW 15.5, Plt Count 178, MPV 8.0, Neut % (Auto) 57.5, Lymph % (Auto) 36.0, [place] % (Auto) 4.3, Eos % (Auto) 1.6, Baso % (Auto) 0.5, Neut # (Auto) 2.9, Lymph # (Auto) 1.8, [place] # (Auto) 0.2, Eos # (Auto) 0.1, Baso # (Auto) 0.0, Sodium 137, Potassium 3.6, Chloride 104, Carbon Dioxide 31 H, Anion Gap 5.6, BUN 11, Creatinine 0.70, Estimated Creat Clear 124, Estimated GFR 120, Est GFR ( Amer) 145, Glucose 89, Calcium 8.1 L, Total Bilirubin 0.5, AST 63 H D, ALT 7 L, Alkaline Phosphatase 65, Total Protein 4.7 L, Albumin 2.5 L D, Globulin 2.2, Albumin/Globulin Ratio 1.1 I & O for Last 24 hours: Intake & Output 12/02/23 12/03/23 12/04/23 12/05/23 23:59 23:59 23:59 23:59 Intake Total 1344 / 1344 2209 / 2689 1100 / 1100 Output Total 0 / 0 Balance 1344 / 1344 2208 / 2688 1099 / 1099 Weight 60.056 kg 60.056 kg 60.05 kg 68.583 kg Constitutional Constitutional: no acute distress *Routine HEENT Exam Head: Present normocephalic Eye: Present EOMI and PERRL ENT: Present mucous membranes moist *Routine Neck Exam Neck: Present supple; Absent lymphadenopathy *Routine Respiratory Exam Respiratory: Present CTA bilaterally *Routine Cardiovascular Exam Cardiovascular: Present RRR *Routine Abdominal Exam Abdominal: Present soft and normoactive bowel sounds; Absent tenderness *Routine Extremities Exam Extremities: Absent cyanosis, clubbing or edema *Routine Skin Exam Skin: Present warm; Absent rash *Routine Neurological Exam Neurological: Present alert and oriented X3 Assessment and Plan *Assessment and plan (1) Upper GI bleed: Status: Acute Category: Medical Code(s): K92.2 - Gastrointestinal hemorrhage, unspecified (2) Acute blood loss anemia: Status: Acute Category: Medical Code(s): D62 - Acute posthemorrhagic anemia (3) Duodenal ulcer: Status: Acute Category: Medical Code(s): K26.9 - Duodenal ulcer, unspecified as acute or chronic, without hemorrhage or perforation (4) Abdominal pain, acute: Status: Acute Category: Medical Code(s): R10.9 - Unspecified abdominal pain (5) Nausea & vomiting: Status: Acute Qualifiers: Vomiting type: unspecified Qualified Code(s): R11.2 - Nausea with vomiting, unspecified Category: Medical Code(s): R11.2 - Nausea with vomiting, unspecified (6) Melena: Status: Acute Category: Medical Code(s): K92.1 - Melena (7) Esophagitis with gastritis: Status: Acute Category: Medical Code(s): K29.70 - Gastritis, unspecified, without bleeding; K20.90 - Esophagitis, unspecified without bleeding (8) Tobacco abuse: Status: Chronic Category: Medical Code(s): Z72.0 - Tobacco use (9) Drug abuse and dependence: Status: Acute Category: Medical Code(s): F19.20 - Other psychoactive substance dependence, uncomplicated Plan 48 year-old male with a PMHx of heart disease, asthma, bronchitis, GERD with past duodenal ulcer, drug and alcohol dependence on Suboxone, anxiety, chronic pain on NSAID, tobacco use disorder who presented for evaluation of of intractable vomiting and dark stool. arrive normotensive but tachycardic. Initial workup will be conducted with hematologic labs CT scan of the abdomen pelvis. Initial interventions include crystalloid bolus Protonix drip Toradol Tylenol antiemetics. Initial workup reviewed by me shows that HH normal. no signs of bleeding. Electrolytes depleted. replaced at ED. CT of abdomen negative. Surgeon was consulted.. patient placed on protonix continuous infusion. Discussed with ED provider for admission. Taken for EGD today, found to have oozing ulcer. Hemoglobin has dropped. Needs continued monitoring and inpatient management. Problems addressed as follows: Acute blood loss anemia due to duodenal ulcer Melena Intractable nausea and vomiting NPO after MN, on liquid diet s/p EGD. Found to have oozing duodenal ulcer. Injected with epinephrine. monitor Hb - switch to protonix gtt - Diarrhea panel negative, stool occult positive -BUN elevated at 22, creatinine 0.6. Liver enzymes stable with bili of 0.9, AST 60, ALT 10 Intractable pain - improved Opiate dependence -Resume home Suboxone regimen -Compazine x 1 today for nausea. Continue Zofran 4 mg as needed every 6-8 hours. -GI cocktail available every 6 hours as needed -Complaining of back pain with sciatica, initiated gabapentin 300 mg History of multidrug abuse including alcohol and tobacco dependence Last drink before admission Monitors for CIWA On nicotine patch SCD for DVT prophylaxis. Full code Clear liquid diet High risk for decompensation. monitor Hb, Hb down trending, continue to monitor, NPO after MN for possible EGD again tomorrow
[2023-12-05 16:00] VITALS: BP 126/79; PULSE 80; RESP 14; TEMP 36.9; O2SAT 98
[2023-12-05] MEDS: MULTIVITAMIN TABLET 1 EACH PO (16:30)
[2023-12-05 16:58] LABS: Hematocrit 32.3 % (42.0-52.0)
[2023-12-05 17:59] LABS: Hemoglobin 10.4 g/dL (14.1-18.0)
--- NOTE | 2023-12-05 19:00 | PC.NURSE ---
pts CIWAs have been 12, 21, 21, 12, 13, treated per mar. pt has had some hallucination and colored spots . patient did get a few hours of sleep today. unable to admin ivmf and protonix due to fall risk, kong chavira notified.
[2023-12-05 20:00] VITALS: BP 143/98; PULSE 100; RESP 20; TEMP 37.8; O2SAT 93
[2023-12-05] MEDS: ACETAMINOPHEN 325MG TAB 650 MG PO (20:08)
[2023-12-05] MEDS: QUETIAPINE 25MG TABLET 25 MG PO (20:08)
[2023-12-06] VITALS: BP 119/72; PULSE 95; RESP 16; TEMP 36.8; O2SAT 95
[2023-12-06] MEDS: BELLADONNA ALKALOIDS 60 ML ML PO ×4 (02:54→21:56)
[2023-12-06 04:00] VITALS: BP 99/51; PULSE 94; RESP 16; TEMP 37.7; O2SAT 92; BMI 23.1
--- NOTE | 2023-12-06 04:53 | PC.NURSE ---
PATIENT HAS RESTED WELL. MILD WITHDRAWAL SYMPTOMS PRESENT. PROTONIX INFUSING AT 10 ML/HR/PUMP. THERE HAS BEEN NO BLOODY STOOLS REPORTED. SIGNIFICANT OTHER AT BEDSIDE. VITAL SIGNS STABLE, RUNS LOW GRADE TEMP OFF AND ON. 98.3 AT THIS TIME. NPO SINCE MN ORDERED.
[2023-12-06 06:32] LABS: Basophils % 0.3 % (0.1-2.0); Eosinophils # 0.1 K/mm3 (0.0-0.4); Hematocrit 28.5 % (42.0-52.0); Monocytes # 0.5 K/mm3 (0.1-1.0)
[2023-12-06 06:34] LABS: Chloride 101 mmol/L (98-107); Potassium 3.9 mmoL/L (3.5-5.1); Sodium 134 mmol/L (136-145)
[2023-12-06 06:36] LABS: Alanine Aminotransferase 9 U/L (12-78); Aspartate Amino Transferase 45 U/L (17-59); Blood Urea Nitrogen 12 mg/dl (9-20); Creatinine Clearance Estimated 125 mL/min (50-200); Estimated Glomerular Filt Rate 120 ml/min (>60); GFR (African American) 145 ML/MIN (>60)
[2023-12-06 06:37] LABS: Albumin Level 2.8 g/dl (3.5-5.0); Albumin/Globulin Ratio 1.2 (1.1-1.8); Alkaline Phosphatase 68 U/L (38-126); Anion Gap 4.9 mEq/L (5-15); Bilirubin,Total 0.9 mg/dl (0.2-1.3); Calcium 8.4 mg/dl (8.4-10.2); Carbon Dioxide 32 mmol/L (22.0-30.0); Globulin 2.4 g/dL (1.3-3.2); Glucose 86 mg/dl (74-100); Total Protein,Serum 5.2 g/dl (6.3-8.2)
[2023-12-06 06:57] LABS: Eosinophils % 0.4 % (0.1-12.0); Lymphocytes # 1.8 K/mm3 (0.7-4.5); Lymphocytes % 14.3 % (10-50); Mean Corpuscular HGB Conc 32.6 g/dL (31.8-35.4); Mean Corpuscular Hemoglobin 37.5 pg (27.0-31.2); Mean Corpuscular Volume 115.2 fl (80-94); Mean Platelet Volume 7.9 fl (7.4-10.4); Monocytes % 4.1 % (1.7-9.3); Neutrophils % 80.9 % (37.0-80.0); Platelet Count 200 K/mm3 (142-424); Red Blood Count 2.48 M/mm3 (4.60-6.20); Red Cell Distribution Width 15.2 % (11.5-17.5); White Blood Count 12.4 K/mm3 (4.8-10.8)
[2023-12-06 07:03] LABS: Hemoglobin 9.3 g/dL (14.1-18.0)
--- NOTE | 2023-12-06 07:05 | P.PN_ITS ---
Subjective Narrative: Patient currently resting Exam Data for Last 24 hours Vital signs and Labs for Last 24 Hours: Temp Pulse Resp BP Pulse Ox O2 Del Method O2 Flow Rate 99.8 F H 94 H 16 99/51 L 92 L Room Air 5 12/06/23 04:00 12/06/23 04:00 12/06/23 04:00 12/06/23 04:00 12/06/23 04:00 12/06/23 06:36 12/03/23 07:52 Laboratory Results - last 24 hr 12/05/23 05:37: WBC 5.0, RBC 2.44 L, Hgb 9.0 L D, Hct 28.1 L, MCV 115.4 H, MCH 37.1 H, MCHC 32.1, RDW 15.5, Plt Count 178, MPV 8.0, Neut % (Auto) 57.5, Lymph % (Auto) 36.0, [place] % (Auto) 4.3, Eos % (Auto) 1.6, Baso % (Auto) 0.5, Neut # (Auto) 2.9, Lymph # (Auto) 1.8, [place] # (Auto) 0.2, Eos # (Auto) 0.1, Baso # (Auto) 0.0, Sodium 137, Potassium 3.6, Chloride 104, Carbon Dioxide 31 H, Anion Gap 5.6, BUN 11, Creatinine 0.70, Estimated Creat Clear 124, Estimated GFR 120, Est GFR ( Amer) 145, Glucose 89, Calcium 8.1 L, Total Bilirubin 0.5, AST 63 H D, ALT 7 L, Alkaline Phosphatase 65, Total Protein 4.7 L, Albumin 2.5 L D, Globulin 2.2, Albumin/Globulin Ratio 1.1 12/05/23 16:51: Hgb 10.4 L D, Hct 32.3 L 12/06/23 05:31: WBC 12.4 H D, RBC 2.48 L, Hgb 9.3 L D, Hct 28.5 L, MCV 115.2 H, MCH 37.5 H, MCHC 32.6, RDW 15.2, Plt Count 200, MPV 7.9, Neut % (Auto) 80.9 H, Lymph % (Auto) 14.3, [place] % (Auto) 4.1, Eos % (Auto) 0.4, Baso % (Auto) 0.3, Neut # (Auto) 10.0 H, Lymph # (Auto) 1.8, [place] # (Auto) 0.5, Eos # (Auto) 0.1, Baso # (Auto) 0.0, Sodium 134 L, Potassium 3.9, Chloride 101, Carbon Dioxide 32 H, Anion Gap 4.9 L, BUN 12, Creatinine 0.70, Estimated Creat Clear 125, Estimated GFR 120, Est GFR ( Amer) 145, Glucose 86, Calcium 8.4, Total Bilirubin 0.9, AST 45 D, ALT 9 L D, Alkaline Phosphatase 68, Total Protein 5.2 L, Albumin 2.8 L D, Globulin 2.4, Albumin/Globulin Ratio 1.2 I & O for Last 24 hours: Intake & Output 12/03/23 12/04/23 12/05/23 12/06/23 11:59 11:59 11:59 11:59 Intake Total 864 / 864 1589 / 1589 1580 / 1580 1516 / 1516 Output Total 0 / 0 0 / 0 / Balance 864 / 864 1589 / 1589 1578 / 1578 1514 / 1514 Weight 132 lb 6.413 oz 132 lb 6.201 oz 151 lb 3.2 oz 152 lb 6.4 oz Constitutional Constitutional: no acute distress *Routine Respiratory Exam Respiratory: Absent respiratory distress *Routine Cardiovascular Exam Cardiovascular: Absent tachycardia Progress Note: A&P Assessment and plan (1) Upper GI bleed: Status: Acute (2) Acute blood loss anemia: Status: Acute Assessment and plan: Overall, serial hemoglobins have been stable. On 12/03 the patient had multiple hemoglobins of 10.1 or 10.3. On the morning of 12/04 his hemoglobin was 9.0; however, this was seemingly an outlier as hemoglobin later in the afternoon of 12/04 was 10.4. On the morning of 12/05 (this a.m.) hemoglobin is 9.3. Given lack of significant (large volume) hematemesis, melena, or bright red blood per rectum and the entirety of his laboratory evaluation over the last 48 to 72 hours, there is no definitive evidence of ongoing blood loss. Reinstate full liquid diet this morning Continue management as per primary service Outpatient follow-up with Dr. Nieves (3) Duodenal ulcer: Status: Acute Assessment and plan: Continue proton pump inhibition (4) Esophagitis with gastritis: Status: Acute Assessment and Plan Assessment and Plan for All Diagnoses:: Continue ongoing observation to confirm hemoglobin stability Limited/cautious diet advancement N.p.o. after midnight
[2023-12-06 07:53] VITALS: BP 121/71; PULSE 90; RESP 18; TEMP 37.1; O2SAT 95
[2023-12-06] MEDS: GABAPENTIN 300MG CAPSULE 300 MG PO ×2 (08:13→20:33)
[2023-12-06] MEDS: DICYCLOMINE 10MG CAPSULE 10 MG PO ×3 (08:13→20:33)
[2023-12-06] MEDS: LORazepam 1MG TABLET 1 MG PO ×3 (08:13→20:33)
[2023-12-06] MEDS: THIAMINE 100MG TABLET 100 MG PO (08:13)
[2023-12-06] MEDS: FOLIC ACID 1MG TABLET 1 MG PO (08:13)
[2023-12-06] MEDS: BUPRENORPHINE/NALOXONE 8MG/2MG ODT 2 EACH SL (08:13)
[2023-12-06] MEDS: PANTOPRAZOLE SODIUM 80 MG in 0.9 % SODIUM CHLORIDE 100 ML 10 MG IV ×2 (08:50→17:22)
[2023-12-06] MEDS: 0.9 % SODIUM CHLORIDE 1000ML 1,000 ML 100 ML IV (10:38)
--- NOTE | 2023-12-06 15:17 | P.PN_ITS ---
Subjective *Date: 12/06/23 *Time: 17:13 Interval history: seen at bedside, complains of blood per rectum, coffee ground BMs, denied abdominal pain, he complains he thinks he is withdrawing from alcohol Exam Data for Last 24 hours Vital signs and Labs for Last 24 Hours: Temp Pulse Resp BP Pulse Ox O2 Del Method O2 Flow Rate 98.8 F 90 18 121/71 95 Room Air 5 12/06/23 07:53 12/06/23 07:53 12/06/23 07:53 12/06/23 07:53 12/06/23 07:53 12/06/23 07:53 12/03/23 07:52 Laboratory Results - last 24 hr 12/05/23 16:51: Hgb 10.4 L D, Hct 32.3 L 12/06/23 05:31: WBC 12.4 H D, RBC 2.48 L, Hgb 9.3 L D, Hct 28.5 L, MCV 115.2 H, MCH 37.5 H, MCHC 32.6, RDW 15.2, Plt Count 200, MPV 7.9, Neut % (Auto) 80.9 H, Lymph % (Auto) 14.3, [place] % (Auto) 4.1, Eos % (Auto) 0.4, Baso % (Auto) 0.3, Neut # (Auto) 10.0 H, Lymph # (Auto) 1.8, [place] # (Auto) 0.5, Eos # (Auto) 0.1, Baso # (Auto) 0.0, Sodium 134 L, Potassium 3.9, Chloride 101, Carbon Dioxide 32 H, Anion Gap 4.9 L, BUN 12, Creatinine 0.70, Estimated Creat Clear 125, Estimated GFR 120, Est GFR ( Amer) 145, Glucose 86, Calcium 8.4, Total Bilirubin 0.9, AST 45 D, ALT 9 L D, Alkaline Phosphatase 68, Total Protein 5.2 L, Albumin 2.8 L D, Globulin 2.4, Albumin/Globulin Ratio 1.2 I & O for Last 24 hours: Intake & Output 12/03/23 12/04/23 12/05/23 12/06/23 23:59 23:59 23:59 23:59 Intake Total 1344 / 1344 2209 / 2689 1350 / 1930 1481 / 1481 Output Total 0 / 0 2 / 2 Balance 1344 / 1344 2208 / 2688 1348 / 1928 1480 / 1480 Weight 60.056 kg 60.05 kg 68.583 kg 69.127 kg Constitutional Constitutional: no acute distress *Routine HEENT Exam Head: Present normocephalic Eye: Present EOMI and PERRL ENT: Present mucous membranes moist *Routine Neck Exam Neck: Present supple; Absent lymphadenopathy *Routine Respiratory Exam Respiratory: Present CTA bilaterally *Routine Cardiovascular Exam Cardiovascular: Present RRR *Routine Abdominal Exam Abdominal: Present soft and normoactive bowel sounds; Absent tenderness *Routine Extremities Exam Extremities: Absent cyanosis, clubbing or edema *Routine Skin Exam Skin: Present warm; Absent rash *Routine Neurological Exam Neurological: Present alert and oriented X3 Assessment and Plan *Assessment and plan (1) Upper GI bleed: Status: Acute Category: Medical Code(s): K92.2 - Gastrointestinal hemorrhage, unspecified (2) Acute blood loss anemia: Status: Acute Category: Medical Code(s): D62 - Acute posthemorrhagic anemia (3) Duodenal ulcer: Status: Acute Category: Medical Code(s): K26.9 - Duodenal ulcer, unspecified as acute or chronic, without hemorrhage or perforation (4) Abdominal pain, acute: Status: Acute Category: Medical Code(s): R10.9 - Unspecified abdominal pain (5) Nausea & vomiting: Status: Acute Qualifiers: Vomiting type: unspecified Qualified Code(s): R11.2 - Nausea with vomiting, unspecified Category: Medical Code(s): R11.2 - Nausea with vomiting, unspecified (6) Melena: Status: Acute Category: Medical Code(s): K92.1 - Melena (7) Esophagitis with gastritis: Status: Acute Category: Medical Code(s): K29.70 - Gastritis, unspecified, without bleeding; K20.90 - Esophagitis, unspecified without bleeding (8) Tobacco abuse: Status: Chronic Category: Medical Code(s): Z72.0 - Tobacco use (9) Drug abuse and dependence: Status: Acute Category: Medical Code(s): F19.20 - Other psychoactive substance dependence, uncomplicated Plan 48 year-old male with a PMHx of heart disease, asthma, bronchitis, GERD with past duodenal ulcer, drug and alcohol dependence on Suboxone, anxiety, chronic pain on NSAID, tobacco use disorder who presented for evaluation of of intractable vomiting and dark stool. arrive normotensive but tachycardic. Initial workup will be conducted with hematologic labs CT scan of the abdomen pelvis. Initial interventions include crystalloid bolus Protonix drip Toradol Tylenol antiemetics. Initial workup reviewed by me shows that HH normal. no signs of bleeding. Electrolytes depleted. replaced at ED. CT of abdomen negative. Surgeon was consulted.. patient placed on protonix continuous infusion. Discussed with ED provider for admission. Taken for EGD today, found to have oozing ulcer. Hemoglobin has dropped. Needs continued monitoring and inpatient management. Problems addressed as follows: Acute blood loss anemia due to duodenal ulcer Melena Intractable nausea and vomiting NPO after MN, on liquid diet s/p EGD. Found to have oozing duodenal ulcer. Injected with epinephrine. monitor Hb - switch to protonix gtt - Diarrhea panel negative, stool occult positive -BUN elevated at 22, creatinine 0.6. Liver enzymes stable with bili of 0.9, AST 60, ALT 10 Intractable pain - improved Opiate dependence -Resume home Suboxone regimen -Compazine x 1 today for nausea. Continue Zofran 4 mg as needed every 6-8 ho urs. -GI cocktail available every 6 hours as needed -Complaining of back pain with sciatica, initiated gabapentin 300 mg History of multidrug abuse including alcohol and tobacco dependence Last drink before admission Monitors for CIWA On nicotine patch SCD for DVT prophylaxis. Full code Clear liquid diet High risk for decompensation. monitor Hb, Hb appears stable, monitor Hb, advance diet to FLD, likely DC tomorrow if Hb is stable
[2023-12-06 15:42] VITALS: BP 93/68; PULSE 94; RESP 18; TEMP 37.4; O2SAT 97
[2023-12-06] MEDS: MULTIVITAMIN TABLET 1 EACH PO (17:22)
--- NOTE | 2023-12-06 18:34 | PC.NURSE ---
patient has required ativan x2 for CIWA scores this shift. Patient also has had 2 dark malodorous BM this shift. aware, h/h ordered.
[2023-12-06 19:38] LABS: Hemoglobin 8.3 g/dL (14.1-18.0)
[2023-12-06 19:39] LABS: Hematocrit 26.2 % (42.0-52.0)
[2023-12-06 20:00] VITALS: BP 102/58; PULSE 75; RESP 16; TEMP 36.8; O2SAT 96; O2SAT 97
--- NOTE | 2023-12-06 20:12 | XR_ITS ---
PROCEDURE INFORMATION: Exam: XR Chest Exam date and time: 12/06/2023 8:28 PM Age: 48 years old Clinical indication: Shortness of breath TECHNIQUE: Imaging protocol: Radiologic exam of the chest. Views: 1 view. COMPARISON: CR XR CHEST PORTABLE 11/21/2023 6:21 PM FINDINGS: Lungs: Small plaque-like opacities overlying the right lower lobe are mildly increased. Findings may reflect parenchymal process but cannot exclude pleural plaquesNo focal areas of consolidation. Minimally increased markings are also present in the left lower lobe, new since prior exam. few calcified granulomata are present. Pleural spaces: No pleural effusions. Negative for pneumothorax. Heart/Mediastinum: Cardiac silhouette and pulmonary vasculature are within range of normal. Bones/joints: There is no evidence of acute fracture. IMPRESSION: 1. Small plaque-like opacities overlying the right lung are mildly increased. Findings may reflect parenchymal process as well as pleural plaques. This could be further evaluated with chest CT. Cannot entirely exclude parenchymal nodules. 2. Minimally increased markings also present in the left lower lobe, new since prior exam.
--- NOTE | 2023-12-06 20:16 | PC.NURSE ---
SPOKE WITH Hernesto MARIE DIABETES EDUCATION COORDINATOR RE DROP IN h&h, ELEVATED WBC, PRODUCTIVE COUGH. TO PLACE ORDERS AND MAKE PATIENT NPO AFTER MN TONIGHT.
[2023-12-06] MEDS: ACETAMINOPHEN 325MG TAB 650 MG PO (20:32)
[2023-12-06] MEDS: ONDANSETRON 4MG/2ML VIAL 4 MG IV (20:32)
[2023-12-07] VITALS (24 sets, daily range): BP systolic 81–148; BP diastolic 42–91; PULSE 77–98; RESP 16–20; TEMP 36.4–38.4; O2SAT 89–100; BMI 23.3
[2023-12-07 01:19] LABS: Basophils % 0.4 % (0.1-2.0); Eosinophils # 0.1 K/mm3 (0.0-0.4); Eosinophils % 1.3 % (0.1-12.0); Lymphocytes # 1.5 K/mm3 (0.7-4.5); Lymphocytes % 23.4 % (10-50); Mean Corpuscular HGB Conc 32.7 g/dL (31.8-35.4); Mean Corpuscular Hemoglobin 37.4 pg (27.0-31.2); Mean Corpuscular Volume 114.4 fl (80-94); Mean Platelet Volume 7.6 fl (7.4-10.4); Monocytes # 0.3 K/mm3 (0.1-1.0); Monocytes % 5.4 % (1.7-9.3); Neutrophils # 4.4 K/mm3 (1.8-7.8); Neutrophils % 69.5 % (37.0-80.0); Platelet Count 160 K/mm3 (142-424); Red Blood Count 1.92 M/mm3 (4.60-6.20); Red Cell Distribution Width 15.2 % (11.5-17.5); White Blood Count 6.4 K/mm3 (4.8-10.8)
[2023-12-07 01:24] LABS: Hemoglobin 7.2 g/dL (14.1-18.0)
[2023-12-07] MEDS: PANTOPRAZOLE SODIUM 80 MG in 0.9 % SODIUM CHLORIDE 100 ML 10 MG IV ×2 (01:51→14:54)
[2023-12-07] MEDS: BELLADONNA ALKALOIDS 60 ML ML PO ×4 (04:14→21:50)
--- NOTE | 2023-12-07 05:45 | PC.NURSE ---
PATIENT NPO SINCE MN. 1 AM HCT 22 HGB 7.2. MAGGI DAVILA NOTIFIED AND TO ORDER BLOOD TRANSFUSION. CONTINUES TO HAVE WITHDRAWAL SYMPTON. LAST CIWA 3. HAS HAD 1 MOD TARRY LOOSE STOOL THIS SHIFT. SIG OTHER AT BEDSIDE.
[2023-12-07] MEDS: DICYCLOMINE 10MG CAPSULE 10 MG PO ×3 (08:00→20:37)
[2023-12-07] MEDS: GABAPENTIN 300MG CAPSULE 300 MG PO ×2 (08:00→20:37)
[2023-12-07] MEDS: BUPRENORPHINE/NALOXONE 8MG/2MG ODT 2 EACH SL (08:00)
[2023-12-07] MEDS: ACETAMINOPHEN 325MG TAB 650 MG PO ×3 (08:00→21:32)
[2023-12-07] MEDS: FOLIC ACID 1MG TABLET 1 MG PO (08:00)
--- NOTE | 2023-12-07 10:24 | P.PNANES_ITS ---
[facility] Disclaimer: The information contained in this section may have been updated after the patient was seen, as this information can be updated by other users. Medical History Depression Anxiety Traumatic brain injury Surgical History History of foot surgery H/O lithotripsy History of appendectomy H/O right knee surgery H/O anterior cruciate ligament surgery Previous back surgery Family History Grandmother Cancer Diabetes Stroke Grandfather Cancer Mother Diabetes Hypertension Social History Smoking Status: Current every day smoker tobacco type: cigarettes packs per day: 1 alcohol intake: current alcohol intake frequency: a few times a week counseling provided: provider counseling substance use type: former substance user and prescription drug current occupational status: disabled Travel in the last 8 weeks: None household members: significant other housing: house current occupational exposures/hazards: No caffeine: No [facility] Anesthesia Checklist Patient Identification Patient Identification: Arm Band and Verbal (Name & ) Structural Data Admitted From: Inpatient Planned Operative Procedure/s: EGD Consent for Planned Operative Procedure(s) Verified: Yes Verified Documents: Surgical Consent and History and Physical NPO Status Verified Time NPO: 00:00 Chart Verification Results Verified: CBC and BMP Additional verifications Anesthesia Reactions: No Hx Blood Transfusions: No Blood Transfusion Reaction: No Airway Assessment Mallampati Score:: Class II C-Spine Mobility Assessed: Yes TMJ Mobility Assessed: Yes Dentition: Poor Dentition Neurological Assessment Level of Consciousness: Awake Hx Seizures: No Numbness or tingling in extremities: No Anesthesia Plan Anesthesia Risk discussed: Yes Anesthesia Plan: Verified ASA Class: III (E) Anesthesia Type: MAC
--- NOTE | 2023-12-07 10:44 | P.PCN_ITS ---
Procedure: Date: 12/07/23 Patient Date of :: 1975 Procedure Performed:: Esophagogastroduodenoscopy with injection of epinephrine for controlled hemostasis . Indications:: Patient is a 48-year-old male with history of alcohol abuse/dependence. On Suboxone for history of drug use. Prior history of ulcer by endoscopy in 2019. Had been on Protonix but states that he has not taken that in some time. He takes several 800 mg ibuprofen daily. He presented to the emergency department with epigastric pain and nausea. He was admitted for inpatient management on 12/02/2023. Hemoglobin on admission was 14.4. On 12/03/2023 it was 12.2. On 12/03/2023 he underwent esophagogastroduodenoscopy. He was found to have some findings consistent with esophageal dysmotility with minimal Schatzki's ring in the distal esophagus. There was moderately severe diffuse gastritis with some moderate to severe duodenitis. However, there were multiple duodenal ulcers in the second portion of the duodenum 1 of which appeared to be more inflamed with possible visible vessel showing the appearance of a red spot . He underwent injection of epinephrine. Apparently the following day on 12/04/2023 patient had multiple hemoglobins checked that were stable at approximately 10.3. On 12/05/2023 he had a hemoglobin of 9 but then that afternoon hemoglobin of 10.4. He then had a hemoglobin of 9.3 on 12/06/2023 and then in the evening at 8.3. On the morning of 12/07/2023 his hemoglobin was 7.2. Therefore plan was made for repeat upper endoscopy with possible intervention for hemostatic measures. . Performing Provider:: Evan Nieves MD Referring Provider:: Tim Rey MD Sedation:: MAC sedation . Procedure:: Patient history was obtained and appropriate physical examination was performed. Patient's medications and allergies were reviewed. Informed consent was obtained after explaining the benefits, alternatives, and risks of the procedure including, but not limited to, bleeding, perforation, missed lesions, and adverse reaction to anesthesia medications. Patient was transported to endoscopy procedure room. Patient was connected to monitoring devices. Throughout the procedure the patient's blood pressure, pulse, and oxygen saturations were monitored continuously. Patient identification and planned procedure were verified by the staff. Patient was positioned in lateral decubitus position. Consent was obtained and patient was taken to endoscopy procedure room. He was positioned in lateral decubitus position. Adequate intravenous sedation was achieved. Olympus endoscope was inserted via the oropharynx. There was minor cricopharyngeal spasm. There were findings consistent with mild diffuse esophagitis. There was noted to be findings consistent with nonobstructing Schatzki's ring at the gastroesophageal junction. The stomach was cannulated and insufflated. There was moderate diffuse gastritis. Pylorus was traversed. There is mild to moderate duodenitis. Endoscope was advanced into the distal duodenum and there was some minor relatively fresh appearing scattered blood. This was irrigated. The endoscope was slowly withdrawn and there appeared to be significant infla mmation at the second portion of the duodenum which was rather difficult to endoscopically visualized. Previously noted ulcer had actually shown some evidence of healing but was still very inflamed and potentially showing some minor oozing. Irrigation was performed to clear any scant residual blood. Injection was then carried out of epinephrine liberally in the region circumferentially around the ulcer approximately 4 ultimately a total of 8 mg epinephrine. This resulted in excellent blanching of the mucosa. There was no evidence of any active bleeding. Consideration was being given for placement of Hemoclip over the ulcer and this was actually inserted through the endoscope but there was such significant induration at the area of the ulcer this was unable to be deployed safely. Once hemostasis was assured endoscope was withdrawn as the stomach was desufflated. . Findings:: Mild to moderate esophagitis Minimal nonobstructing Schatzki's ring Gastroesophageal junction at approximately 40 cm Moderate diffuse gastritis Mild to moderate duodenitis within the duodenal bulb Significantly inflamed indurated ulcer in second portion of the duodenum potentially with some minor oozing of blood. 8 mg epinephrine injected. Hemoclip unable to be deployed. Distal duodenum unremarkable . Recommendations:: Continue high-dose proton pump inhibitors. Limit to clear liquid diet today. Add misoprostol Complications:: None immediately apparent Estimated blood obtained (mL): 3 Colonoscopy Component Colonoscopy Component Was a colonoscopy performed during today's procedure?: No
[2023-12-07] MEDS: miSOPROStoL 200 MCG TABLET 400 MCG PO ×3 (13:14→23:25)
[2023-12-07] MEDS: LORazepam 1MG TABLET 0.5 MG PO ×2 (14:41→21:48)
--- NOTE | 2023-12-07 15:40 | EXP.PN ---
Subjective *Date: 12/07/23 *Time: 17:11 Interval history: seen at bedside, complains of blood per rectum, Hb drop overnight, denied abdominal pain, he complains he thinks he is withdrawing from alcohol Exam Data for Last 24 hours Vital signs and Labs for Last 24 Hours: Temp Pulse Resp BP Pulse Ox O2 Del Method O2 Flow Rate 97.9 F 81 18 102/64 L 100 Room Air 3 12/07/23 15:20 12/07/23 15:20 12/07/23 15:20 12/07/23 15:20 12/07/23 15:20 12/07/23 13:00 12/07/23 11:45 Laboratory Results - last 24 hr 12/06/23 19:06: Hgb 8.3 L D, Hct 26.2 L 12/07/23 01:10: WBC 6.4 D, RBC 1.92 L*, Hgb 7.2 L D, Hct 22.0 L, MCV 114.4 H, MCH 37.4 H, MCHC 32.7, RDW 15.2, Plt Count 160, MPV 7.6, Neut % (Auto) 69.5, Lymph % (Auto) 23.4, [place] % (Auto) 5.4, Eos % (Auto) 1.3, Baso % (Auto) 0.4, Neut # (Auto) 4.4, Lymph # (Auto) 1.5, [place] # (Auto) 0.3, Eos # (Auto) 0.1, Baso # (Auto) 0.0 12/07/23 07:05: Blood Type O Positive, Antibody Screen Negative, Crossmatch (AHG) See Detail I & O for Last 24 hours: Intake & Output 12/04/23 12/05/23 12/06/23 12/07/23 23:59 23:59 23:59 23:59 Intake Total 2209 / 2689 1350 / 1930 3927 / 3927 1812 / 1812 Output Total 600 / 600 Balance 2208 / 2688 1348 / 1928 3923 / 3923 1212 / 1212 Weight 60.05 kg 68.583 kg 69.127 kg 69.989 kg Constitutional Constitutional: no acute distress *Routine HEENT Exam Head: Present normocephalic Eye: Present EOMI and PERRL ENT: Present mucous membranes moist *Routine Neck Exam Neck: Present supple; Absent lymphadenopathy *Routine Respiratory Exam Respiratory: Present CTA bilaterally *Routine Cardiovascular Exam Cardiovascular: Present RRR *Routine Abdominal Exam Abdominal: Present soft and normoactive bowel sounds; Absent tenderness *Routine Extremities Exam Extremities: Absent cyanosis, clubbing or edema *Routine Skin Exam Skin: Present warm; Absent rash *Routine Neurological Exam Neurological: Present alert and oriented X3 Assessment and Plan *Assessment and plan (1) Upper GI bleed: Status: Acute Category: Medical Code(s): K92.2 - Gastrointestinal hemorrhage, unspecified (2) Acute blood loss anemia: Status: Acute Category: Medical Code(s): D62 - Acute posthemorrhagic anemia (3) Duodenal ulcer: Status: Acute Category: Medical Code(s): K26.9 - Duodenal ulcer, unspecified as acute or chronic, without hemorrhage or perforation (4) Abdominal pain, acute: Status: Acute Category: Medical Code(s): R10.9 - Unspecified abdominal pain (5) Nausea & vomiting: Status: Acute Qualifiers: Vomiting type: unspecified Qualified Code(s): R11.2 - Nausea with vomiting, unspecified Category: Medical Code(s): R11.2 - Nausea with vomiting, unspecified (6) Melena: Status: Acute Category: Medical Code(s): K92.1 - Melena (7) Esophagitis with gastritis: Status: Acute Category: Medical Code(s): K29.70 - Gastritis, unspecified, without bleeding; K20.90 - Esophagitis, unspecified without bleeding (8) Tobacco abuse: Status: Chronic Category: Medical Code(s): Z72.0 - Tobacco use (9) Drug abuse and dependence: Status: Acute Category: Medical Code(s): F19.20 - Other psychoactive substance dependence, uncomplicated Plan 48 year-old male with a PMHx of heart disease, asthma, bronchitis, GERD with past duodenal ulcer, drug and alcohol dependence on Suboxone, anxiety, chronic pain on NSAID, tobacco use disorder who presented for evaluation of of intractable vomiting and dark stool. arrive normotensive but tachycardic. Initial workup will be conducted with hematologic labs CT scan of the abdomen pelvis. Initial interventions include crystalloid bolus Protonix drip Toradol Tylenol antiemetics. Initial workup reviewed by me shows that HH normal. no signs of bleeding. Electrolytes depleted. replaced at ED. CT of abdomen negative. Surgeon was consulted.. patient placed on protonix continuous infusion. Discussed with ED provider for admission. Taken for EGD today, found to have oozing ulcer. Hemoglobin has dropped. Needs continued monitoring and inpatient management. Problems addressed as follows: Acute blood loss anemia due to duodenal ulcer Melena Intractable nausea and vomiting s/p repeat EGD. Found to have oozing duodenal ulcer. Injected with epinephrine. Repeat EGD still shows inflammed duodenal ulcer - added on misoprostol monitor Hb - continue protonix gtt - Diarrhea panel negative, stool occult positive -BUN elevated at 22, creatinine 0.6. Liver enzymes stable with bili of 0.9, AST 60, ALT 10 Intractable pain - improved Opiate dependence -Resume home Suboxone regimen -Compazine x 1 today for nausea. Continue Zofran 4 mg as needed every 6-8 hours. -GI cocktail available every 6 hours as needed -Complaining of back pain with sciatica, initiated gabapentin 300 mg History of multidrug abuse including alcohol and tobacco dependence Last drink before admission Monitors for CIWA On nicotine patch SCD for DVT prophylaxis. Full code Clear liquid diet high risk for decompensation, continue on Misoprostol, IV protonix, monitor Hb
--- NOTE | 2023-12-07 15:50 | PC.NURSE ---
Pt. hgb this morning was 7.2 and one unit of blood given. EGD done today check results. CIWA's of 1, 1, and 7 today with 0.5 of oral Lorazepam given.
[2023-12-07] MEDS: MULTIVITAMIN TABLET 1 EACH PO (16:13)
[2023-12-07 19:23] LABS: Hematocrit 24.6 % (42.0-52.0)
[2023-12-07 19:29] LABS: Hemoglobin 8.2 g/dL (14.1-18.0)
--- NOTE | 2023-12-07 20:53 | CT_ITS ---
PROCEDURE INFORMATION: Exam: CT Chest Without Contrast; Diagnostic Exam date and time: 12/07/2023 9:08 PM Age: 48 years old Clinical indication: Fever; Additional info: New fever TECHNIQUE: Imaging protocol: Diagnostic computed tomography of the chest without contrast. Radiation optimization: All CT scans at this facility use at least one of these dose optimization techniques: automated exposure control; mA and/or kV adjustment per patient size (includes targeted exams where dose is matched to clinical indication); or iterative reconstruction. COMPARISON: CR XR CHEST PORTABLE 12/06/2023 8:28 PM FINDINGS: Lungs: Extensive heterogeneous opacities are seen throughout both lungs, most prominent throughout the left lung. Pleural spaces: No pneumothorax. No pleural effusion. Heart: Low-attenuation intra cardiac blood pool is concerning for severe anemia. Coronary arteries: No significant coronary artery calcification. Lymph nodes: Calcified hilar and mediastinal lymph nodes. Vasculature: Within expected limits for age. Normal caliber arteries. Diaphragm: Small sliding hiatal hernia. Bones/joints: No acute fracture or destructive lesion. Soft tissues: Unremarkable. IMPRESSION: 1. Extensive heterogeneous opacities throughout both lungs are compelling for bronchopneumonia. Presence of centrilobular opacities raises the possibility aspiration but the distribution is atypical. 2. Potential severe anemia indicated by low-attenuation intra cardiac blood pool.
--- NOTE | 2023-12-07 21:08 | CT_ITS ---
PROCEDURE INFORMATION: Exam: CT Abdomen And Pelvis Without Contrast Exam date and time: 12/07/2023 9:21 PM Age: 48 years old Clinical indication: Abdominal pain; Additional info: Abd pain TECHNIQUE: Imaging protocol: Computed tomography of the abdomen and pelvis without contrast. Radiation optimization: All CT scans at this facility use at least one of these dose optimization techniques: automated exposure control; mA and/or kV adjustment per patient size (includes targeted exams where dose is matched to clinical indication); or iterative reconstruction. COMPARISON: CT ABDOMEN PELVIS W CON 12/02/2023 9:12 PM FINDINGS: Lungs: There are new patchy areas of airspace opacity at each lung base. Smudgy centrilobular opacities are noted. Diffuse bronchial wall thickening. Pleural spaces: No pleural fluid or pneumothorax. Heart: Heart size is normal. Low-attenuation intra cardiac blood pool is concerning for severe anemia. Liver: There are streaky areas of heterogeneous attenuation throughout the liver, stable from prior contrast enhanced exam likely reflecting heterogeneous fatty infiltration. Liver measures 17.0 cm in length. Gallbladder and bile ducts: Gallbladder is contracted. No biliary tree dilation. Pancreas: Normal. No ductal dilation. Spleen: 10.4 cm in length. Several calcifications are noted. Adrenal glands: Normal configuration. Kidneys and ureters: Bilateral intrarenal calculi are demonstrated. No hydronephrosis or ureteral stone. Stomach and bowel: Normal appearing stomach and small bowel. Large volume fecal debris demonstrated throughout the entire colon without obstructive features. Surgical clips at the base of the cecum suggest prior appendectomy. Appendix: Surgically absent. Intraperitoneal space: No free air. No significant fluid collection. Vasculature: Mild aortoiliac calcific atherosclerosis without aneurysm. Lymph nodes: No enlarged lymph nodes. Urinary bladder: Unremarkable as visualized. Reproductive: Physiologic appearance for age. Bones/joints: Mild spinal degenerative change with patent spinal canal and neural foramina. No evidence of acute fracture or destructive lesion. Soft tissues: No perineal/perianal abscess or inflammation. IMPRESSION: 1. Interval development of heterogeneous opacity at each lung base. Findings suggest bronchopneumonia. 2. Low-attenuation blood pool is worrisome for anemia. Correlate with laboratory values. 3. No acute intra-abdominal abnormality. There are intrarenal stones but no ureteral stones. It is difficult to exclude pyelonephritis without intravenous contrast but there is no significant change in renal morphology. 4. Heterogeneous fatty infiltration of the liver.
[2023-12-07 22:02] LABS: Microscopic, Urine URINE MICROSCOPIC (MICROSCOPIC)
[2023-12-07 22:02] LABS: Basophils % 0.4 % (0.1-2.0); Chloride 99 mmol/L (98-107); Eosinophils # 0.1 K/mm3 (0.0-0.4); Eosinophils % 0.7 % (0.1-12.0); Hematocrit 27.1 % (42.0-52.0); Hemoglobin 8.8 g/dL (14.1-18.0); Lymphocytes # 1.1 K/mm3 (0.7-4.5); Lymphocytes % 11.8 % (10-50); Mean Corpuscular HGB Conc 32.6 g/dL (31.8-35.4); Mean Corpuscular Hemoglobin 36.2 pg (27.0-31.2); Mean Corpuscular Volume 111.2 fl (80-94); Monocytes # 0.4 K/mm3 (0.1-1.0); Monocytes % 4.2 % (1.7-9.3); Neutrophils # 7.7 K/mm3 (1.8-7.8); Platelet Count 207 K/mm3 (142-424); Potassium 4.3 mmoL/L (3.5-5.1); Red Blood Count 2.43 M/mm3 (4.60-6.20); Red Cell Distribution Width 16.9 % (11.5-17.5); Sodium 130 mmol/L (136-145); White Blood Count 9.3 K/mm3 (4.8-10.8)
[2023-12-07 22:04] LABS: Appearance,Urine CLEAR (Clear); Bilirubin,Urine Negative (Negative); Blood, Urine Negative (Negative); Color,Urine YELLOW (Yellow); Glucose,Urine (UA) Negative (Negative); Ketones,Urine Negative (Negative); Leukocyte Esterase,Urine Negative (Negative); Nitrate,Urine Negative (Negative); Protein,Urine Negative (Negative); Specific Gravity, Urine 1.015 (1.005-1.030); Urobilinogen,Urine 0.2 EU/dl (0.2)
[2023-12-07 22:05] LABS: Alanine Aminotransferase 7 U/L (12-78); Albumin Level 3.1 g/dl (3.5-5.0); Albumin/Globulin Ratio 1.1 (1.1-1.8); Alkaline Phosphatase 64 U/L (38-126); Anion Gap 6.3 mEq/L (5-15); Aspartate Amino Transferase 32 U/L (17-59); Bilirubin,Total 0.6 mg/dl (0.2-1.3); Blood Urea Nitrogen 10 mg/dl (9-20); Carbon Dioxide 29 mmol/L (22.0-30.0); Creatinine Clearance Estimated 98 mL/min (50-200); Estimated Glomerular Filt Rate 90 ml/min (>60); GFR (African American) 109 ML/MIN (>60); Globulin 2.8 g/dL (1.3-3.2); Total Protein,Serum 5.9 g/dl (6.3-8.2)
[2023-12-07 22:06] LABS: Calcium 8.4 mg/dl (8.4-10.2); Glucose 94 mg/dl (74-100); Lactic Acid 0.6 mmol/L (0.7-2.1)
[2023-12-07 22:18] LABS: Squamous Epithelial Cell,Urine Occasional #/hpf (0-5); WBC,Urine Occasional #/hpf (0-3)
[2023-12-08] VITALS: BP 100/50; PULSE 80; RESP 16; TEMP 37.1; O2SAT 95
[2023-12-08] MEDS: PANTOPRAZOLE SODIUM 80 MG in 0.9 % SODIUM CHLORIDE 100 ML 10 MG IV ×3 (00:59→23:11)
[2023-12-08] MEDS: METRONIDAZ/SOD CHL 500 MG/100 ML PIGGYBACK 100 MG IV ×4 (01:22→23:11)
[2023-12-08] MEDS: VANCOMYCIN HCL 1,500 MG in 0.9 % SODIUM CHLORIDE 250 ML 125 MG IV (01:22)
[2023-12-08] MEDS: 0.9 % SODIUM CHLORIDE 1000ML 1,000 ML 125 ML IV ×3 (01:26→20:06)
[2023-12-08] MEDS: BELLADONNA ALKALOIDS 60 ML ML PO ×4 (03:57→21:38)
[2023-12-08] MEDS: ACETAMINOPHEN 325MG TAB 650 MG PO ×3 (03:57→23:11)
[2023-12-08 03:58] VITALS: TEMP 37.8
[2023-12-08 04:00] VITALS: BP 85/49; PULSE 84; RESP 18; TEMP 37.6; O2SAT 96; BMI 23.3
--- NOTE | 2023-12-08 04:18 | PC.NURSE ---
pt had fever of 101.1. may jarvis aprn made aware. new orders received for npo, ct of chest/abd, cbc, cmp ,lactic, blood cx's, ua and sputum specimen sent to lab. tylenol given, flagyl and vancomycin ordered and given. first ciwa assessment was 14. pt reports visual and auditory hallucinations. pt given rebel librium, repeat ciwa score 7, pt then given prn ativan 0.5 mg, repeat, ciwa 6. pt voiding adequately. pt cont to have fever of 99-100's. nsr on monitor, bp soft, ns @ 125ML/HR ordered. pt has +2 pitting edema to bilateral upper extremities. pt had 1 episode of drk stool.
[2023-12-08] MEDS: miSOPROStoL 200 MCG TABLET 400 MCG PO ×4 (06:26→23:10)
[2023-12-08] MEDS: FOLIC ACID 1MG TABLET 1 MG PO (07:38)
[2023-12-08] MEDS: GABAPENTIN 300MG CAPSULE 300 MG PO ×2 (07:38→20:05)
[2023-12-08] MEDS: BUPRENORPHINE/NALOXONE 8MG/2MG ODT 2 EACH SL (07:38)
[2023-12-08] MEDS: DICYCLOMINE 10MG CAPSULE 10 MG PO ×3 (07:38→20:05)
[2023-12-08 08:00] VITALS: BP 100/51; PULSE 82; RESP 17; TEMP 37.7; O2SAT 91
--- NOTE | 2023-12-08 08:53 | P.CONPHA_ITS ---
Pharmacy Consult Date: 12/08/23 Time: 08:53 Referring provider: MARILYNN Reason for Consult:: VANCOMYCIN DOSING Allergies Allergy/AdvReac Type Severity Reaction Status Date / Time aspirin [ASPIRIN] Allergy Unknown Verified 08/17/22 10:30 piperacillin [From Zosyn] Allergy Verified 08/17/22 10:30 tazobactam [From Zosyn] Allergy Verified 08/17/22 10:30 Home Medications Medication Instructions Recorded Confirmed Type buprenorphine 8 mg-naloxone 2 mg 2 tab sublingual DAILY 08/17/22 12/02/23 History sublingual tablet New Prescriptions to Start Prescriptions: Height: 1.73 m Weight: 69.989 kg Laboratory Results:: Laboratory Results - last 24 hr 12/07/23 07:05: Blood Type O Positive, Antibody Screen Negative, Crossmatch (AHG) See Detail 12/07/23 19:15: Hgb 8.2 L D, Hct 24.6 L 12/07/23 21:45: WBC 9.3 D, RBC 2.43 L D, Hgb 8.8 L, Hct 27.1 L, MCV 111.2 H, MCH 36.2 H, MCHC 32.6, RDW 16.9, Plt Count 207 D, MPV 8.0, Neut % (Auto) 83.0 H , Lymph % (Auto) 11.8, [place] % (Auto) 4.2, Eos % (Auto) 0.7, Baso % (Auto) 0.4, Neut # (Auto) 7.7, Lymph # (Auto) 1.1, [place] # (Auto) 0.4, Eos # (Auto) 0.1, Baso # (Auto) 0.0, Sodium 130 L, Potassium 4.3, Chloride 99, Carbon Dioxide 29, Anion Gap 6.3, BUN 10, Creatinine 0.90 D, Estimated Creat Clear 98, Estimated GFR 90, Est GFR ( Amer) 109 D, Glucose 94, Lactate 0.6 L, Calcium 8.4, Total Bilirubin 0.6, AST 32 D, ALT 7 L, Alkaline Phosphatase 64, Total Protein 5.9 L, Albumin 3.1 L, Globulin 2.8, Albumin/Globulin Ratio 1.1 12/07/23 21:55: Urine Color Yellow, Urine Appearance Clear, Urine pH 8.0, Ur Specific [place] 1.015, Urine Protein Negative, Urine Glucose (UA) Negative, Urine Ketones Negative, Urine Blood Negative, Urine Nitrate Negative, Urine Bilirubin Negative, Urine Urobilinogen 0.2, Ur Leukocyte Esterase Negative, Urine RBC None, Urine WBC Occasional, Ur Squamous Epith Cells Occasional, Urine Bacteria None Medical History: Medical History (Updated 12/03/23 @ 20:08 by Michael Bernstein MD) Depression Anxiety Traumatic brain injury Assessment and Plan Assessment and plan all Dx Assessment and Plan for all problems:: Pharmacokinetic dosing service Objective: Patient: Floor: Age: 48 yo Serum creatinine: 0.90 mg/dL Height: 68.1 Inches Weight (kg): 70 Assessment: IBW (kg): 68.63 Dosing wt(kg): 70 Estimated Creatinine clearance (ml/min): 96.4 CRCL method: Cockcroft and Gault using ibw(default). Drug selected: Vancomycin Loading dose (mg): Vd (liters): 56.0 (factor used: 0.8 L/kg) Stan (hr-1): 0.084 Half life (hrs): 8.25 CLvanco=?? 4.704 L/hr Recommended dose: 1250 mg Interval: 12 hrs Infusion time (hrs): 2.0 Predicted peak (mcg/mL): 32.4 Predicted trough (mcg/mL): 13.99 Total body weight is being used for vancomycin dosing. Recommendations: Give Vancomycin 1250 mg q 12 hrs with an expected Cpeak of 32.4 mcg/ml and an expected Ctrough of 13.99 mcg/ml AUC 0-24 /SCOTT Data: SCOTT 0.5 mcg/mL:?? AUC/SCOTT:? 1062.9 SCOTT 1.0 mcg/mL:?? AUC/SCOTT:? 531.5 --------- SCOTT 1.5 mcg/mL:?? AUC/SCOTT:? 354.3 SCOTT 2.0 mcg/mL:?? AUC/SCOTT:? 265.7 Thank you for the consult, will continue to follow. -SALBADOR ELLIOTT, AMANDAD
--- NOTE | 2023-12-08 09:42 | EXP.SURG.PN ---
Subjective Narrative: Currently resting Exam Data for Last 24 hours Vital signs and Labs for Last 24 Hours: Temp Pulse Resp BP Pulse Ox O2 Del Method O2 Flow Rate 99.9 F H 82 17 100/51 L 91 L Room Air 3 12/08/23 08:00 12/08/23 08:00 12/08/23 08:00 12/08/23 08:00 12/08/23 08:00 12/08/23 08:55 12/07/23 11:45 Laboratory Results - last 24 hr 12/07/23 07:05: Blood Type O Positive, Antibody Screen Negative, Crossmatch (AHG) See Detail 12/07/23 19:15: Hgb 8.2 L D, Hct 24.6 L 12/07/23 21:45: WBC 9.3 D, RBC 2.43 L D, Hgb 8.8 L, Hct 27.1 L, MCV 111.2 H, MCH 36.2 H, MCHC 32.6, RDW 16.9, Plt Count 207 D, MPV 8.0, Neut % (Auto) 83.0 H, Lymph % (Auto) 11.8, [place] % (Auto) 4.2, Eos % (Auto) 0.7, Baso % (Auto) 0.4, Neut # (Auto) 7.7, Lymph # (Auto) 1.1, [place] # (Auto) 0.4, Eos # (Auto) 0.1, Baso # (Auto) 0.0, Sodium 130 L, Potassium 4.3, Chloride 99, Carbon Dioxide 29, Anion Gap 6.3, BUN 10, Creatinine 0.90 D, Estimated Creat Clear 98, Estimated GFR 90, Est GFR ( Amer) 109 D, Glucose 94, Lactate 0.6 L, Calcium 8.4, Total Bilirubin 0.6, AST 32 D, ALT 7 L, Alkaline Phosphatase 64, Total Protein 5.9 L, Albumin 3.1 L, Globulin 2.8, Albumin/Globulin Ratio 1.1 12/07/23 21:55: Urine Color Yellow, Urine Appearance Clear, Urine pH 8.0, Ur Specific [place] 1.015, Urine Protein Negative, Urine Glucose (UA) Negative, Urine Ketones Negative, Urine Blood Negative, Urine Nitrate Negative, Urine Bilirubin Negative, Urine Urobilinogen 0.2, Ur Leukocyte Esterase Negative, Urine RBC None, Urine WBC Occasional, Ur Squamous Epith Cells Occasional, Urine Bacteria None I & O for Last 24 hours: Intake & Output 12/05/23 12/06/23 12/07/23 12/08/23 11:59 11:59 11:59 11:59 Intake Total 1580 / 1580 1516 / 1516 3793 / 3793 3897 / 3897 Output Total 603 / 603 1100 / 1100 Balance 1578 / 1578 1514 / 1514 3190 / 3190 2797 / 2797 Weight 151 lb 3.2 oz 152 lb 6.4 oz 154 lb 4.8 oz 154 lb 4.789 oz Microbiology Reports for the Last 24 Hours: Microbiology 12/07/23 21:55 Sputum - Expectorated Sputum Gram Stain - Final 12/07/23 21:55 Sputum - Expectorated Sputum Sputum Culture - Preliminary Constitutional Constitutional: no acute distress *Routine Respiratory Exam Respiratory: Absent respiratory distress *Routine Cardiovascular Exam Cardiovascular: Absent tachycardia Progress Note: A&P Assessment and plan (1) Upper GI bleed: Status: Acute (2) Acute blood loss anemia: Status: Acute Assessment and plan: Follow-up pending labs. Last hemoglobin 8.8 (up from 7.2 after 1 unit packed red blood cells) (3) Duodenal ulcer: Status: Acute Assessment and plan: Overall doing fairly well status post repeat esophagogastroduodenoscopy with epinephrine injection Continue medical management (4) Abdominal pain, acute: Status: Acute
--- NOTE | 2023-12-08 11:40 | P.PN_ITS ---
Subjective *Date: 12/08/23 *Time: 11:40 Interval history: seen at bedside, was given 1 unit PRBC yesterday, Hb improved, denied abdominal pain Exam Data for Last 24 hours Vital signs and Labs for Last 24 Hours: Temp Pulse Resp BP Pulse Ox O2 Del Method O2 Flow Rate 99.9 F H 82 17 100/51 L 91 L Room Air 3 12/08/23 08:00 12/08/23 08:00 12/08/23 08:00 12/08/23 08:00 12/08/23 08:00 12/08/23 08:55 12/07/23 11:45 Laboratory Results - last 24 hr 12/07/23 07:05: Blood Type O Positive, Antibody Screen Negative, Crossmatch (AHG) See Detail 12/07/23 19:15: Hgb 8.2 L D, Hct 24.6 L 12/07/23 21:45: WBC 9.3 D, RBC 2.43 L D, Hgb 8.8 L, Hct 27.1 L, MCV 111.2 H, MCH 36.2 H, MCHC 32.6, RDW 16.9, Plt Count 207 D, MPV 8.0, Neut % (Auto) 83.0 H , Lymph % (Auto) 11.8, [place] % (Auto) 4.2, Eos % (Auto) 0.7, Baso % (Auto) 0.4, Neut # (Auto) 7.7, Lymph # (Auto) 1.1, [place] # (Auto) 0.4, Eos # (Auto) 0.1, Baso # (Auto) 0.0, Sodium 130 L, Potassium 4.3, Chloride 99, Carbon Dioxide 29, Anion Gap 6.3, BUN 10, Creatinine 0.90 D, Estimated Creat Clear 98, Estimated GFR 90, Est GFR ( Amer) 109 D, Glucose 94, Lactate 0.6 L, Calcium 8.4, Total Bilirubin 0.6, AST 32 D, ALT 7 L, Alkaline Phosphatase 64, Total Protein 5.9 L, Albumin 3.1 L, Globulin 2.8, Albumin/Globulin Ratio 1.1 12/07/23 21:55: Urine Color Yellow, Urine Appearance Clear, Urine pH 8.0, Ur Specific [place] 1.015, Urine Protein Negative, Urine Glucose (UA) Negative, Urine Ketones Negative, Urine Blood Negative, Urine Nitrate Negative, Urine Bilirubin Negative, Urine Urobilinogen 0.2, Ur Leukocyte Esterase Negative, Urine RBC None, Urine WBC Occasional, Ur Squamous Epith Cells Occasional, Urine Bacteria None I & O for Last 24 hours: Intake & Output 12/05/23 12/06/23 12/07/23 12/08/23 23:59 23:59 23:59 23:59 Intake Total 1350 / 1930 3927 / 3927 2262 / 2262 224 / 2247 Output Total 1700 / 1700 0 / 0 Balance 1348 / 1928 3923 / 3923 562 / 562 224 / 2247 Weight 68.583 kg 69.127 kg 69.989 kg 69.989 kg Microbiology Reports for the Last 24 Hours: Microbiology 12/07/23 21:45 Blood Blood Culture - Preliminary 12/07/23 21:55 Sputum - Expectorated Sputum Gram Stain - Final 12/07/23 21:55 Sputum - Expectorated Sputum Sputum Culture - Preliminary Constitutional Constitutional: no acute distress *Routine HEENT Exam Head: Present normocephalic Eye: Present EOMI and PERRL ENT: Present mucous membranes moist *Routine Neck Exam Neck: Present supple; Absent lymphadenopathy *Routine Respiratory Exam Respiratory: Present CTA bilaterally *Routine Cardiovascular Exam Cardiovascular: Present RRR *Routine Abdominal Exam Abdominal: Present soft and normoactive bowel sounds; Absent tenderness *Routine Extremities Exam Extremities: Absent cyanosis, clubbing or edema *Routine Skin Exam Skin: Present warm; Absent rash *Routine Neurological Exam Neurological: Present alert and oriented X3 Assessment and Plan *Assessment and plan (1) Upper GI bleed: Status: Acute Category: Medical Code(s): K92.2 - Gastrointestinal hemorrhage, unspecified (2) Acute blood loss anemia: Status: Acute Category: Medical Code(s): D62 - Acute posthemorrhagic anemia (3) Duodenal ulcer: Status: Acute Category: Medical Code(s): K26.9 - Duodenal ulcer, unspecified as acute or chronic, without hemorrhage or perforation (4) Abdominal pain, acute: Status: Acute Category: Medical Code(s): R10.9 - Unspecified abdominal pain (5) Nausea & vomiting: Status: Acute Qualifiers: Vomiting type: unspecified Qualified Code(s): R11.2 - Nausea with vomiting, unspecified Category: Medical Code(s): R11.2 - Nausea with vomiting, unspecified (6) Melena: Status: Acute Category: Medical Code(s): K92.1 - Melena (7) Esophagitis with gastritis: Status: Acute Category: Medical Code(s): K29.70 - Gastritis, unspecified, without bleeding; K20.90 - Esophagitis, unspecified without bleeding (8) Tobacco abuse: Status: Chronic Category: Medical Code(s): Z72.0 - Tobacco use (9) Drug abuse and dependence: Status: Acute Category: Medical Code(s): F19.20 - Other psychoactive substance dependence, uncomplicated Plan 48 year-old male with a PMHx of heart disease, asthma, bronchitis, GERD with past duodenal ulcer, drug and alcohol dependence on Suboxone, anxiety, chronic pain on NSAID, tobacco use disorder who presented for evaluation of of intractable vomiting and dark stool. arrive normotensive but tachycardic. Initial workup will be conducted with hematologic labs CT scan of the abdomen p prashanth. Initial interventions include crystalloid bolus Protonix drip Toradol Tylenol antiemetics. Initial workup reviewed by me shows that HH normal. no signs of bleeding. Electrolytes depleted. replaced at ED. CT of abdomen negative. Surgeon was consulted.. patient placed on protonix continuous infusion. Discussed with ED provider for admission. Taken for EGD today, found to have oozing ulcer. Hemoglobin has dropped. Needs continued monitoring and inpatient management. Problems addressed as follows: Acute blood loss anemia due to duodenal ulcer Melena Intractable nausea and vomiting s/p repeat EGD. Found to have oozing duodenal ulcer. Injected with epinephrine. Repeat EGD still shows inflammed duodenal ulcer - added on misoprostol monitor Hb - continue protonix gtt - Diarrhea panel negative, stool occult positive -BUN elevated at 22, creatinine 0.6. Liver enzymes stable with bili of 0.9, AST 60, ALT 10 Fever - blood culture positive for GRAM NEGATIVE RODS PCR: Enterobacter cloacae, kenny translocation from intestine - started on flagyl, cefepime and vancomycin follow up on sensistivities Intractable pain - improved Opiate dependence -Resume home Suboxone regimen -Compazine x 1 today for nausea. Continue Zofran 4 mg as needed every 6-8 hours. -GI cocktail available every 6 hours as needed -Complaining of back pain with sciatica, initiated gabapentin 300 mg History of multidrug abuse including alcohol and tobacco dependence Last drink before admission Monitors for CIWA On nicotine patch SCD for DVT prophylaxis. Full code Clear liquid diet high risk for decompensation, continue on Misoprostol, IV protonix, monitor Hb ok to start on CLD, continue IV PPI, monitor Hb, likely DC 1-2 days if Hb stable
[2023-12-08] MEDS: CEFEPIME HCL 2 GM in 0.9 % SODIUM CHLORIDE 100 ML IV ×2 (12:11→20:05)
[2023-12-08] MEDS: NICOTINE 21MG/24HR PATCH 21 MG TD (13:38)
[2023-12-08] MEDS: VANCOMYCIN/WATER FOR INJ (PEG) 1.25 GM/250 ML PIGGYBACK IV (15:00)
[2023-12-08 16:00] VITALS: BP 108/61; PULSE 80; RESP 16; TEMP 36.6; O2SAT 94
--- NOTE | 2023-12-08 16:06 | PC.NURSE ---
Patient able to tolerate clear liquid diet, Patient remained on room air and VS stable. CIWAS 3 during shift. Patient had dark liquidy stools during shift. Lung sounds clear, diminished. Patient able to ambulate to the bathroom and back to bed with standby assistance. IV antibiotics given.
[2023-12-08] MEDS: MULTIVITAMIN TABLET 1 EACH PO (16:25)
[2023-12-08] MEDS: LORazepam 1MG TABLET 1 MG PO ×2 (18:05→21:49)
[2023-12-08] MEDS: LORazepam 2MG/ML VIAL 2 MG IV (18:12)
[2023-12-08 19:57] VITALS: BP 113/65; PULSE 86; RESP 22; TEMP 37.8; O2SAT 98
[2023-12-09] VITALS (16 sets, daily range): BP systolic 86–127; BP diastolic 53–76; PULSE 74–88; RESP 17–22; TEMP 36.7–37.5; O2SAT 90–100; BMI 22.5
[2023-12-09] MEDS: IPRATROPIUM/ALBUTEROL 3 ML NEB IH ×3 (02:00→11:19)
[2023-12-09] MEDS: VANCOMYCIN/WATER FOR INJ (PEG) 1.25 GM/250 ML PIGGYBACK IV (02:03)
[2023-12-09] MEDS: LORazepam 1MG TABLET 1 MG PO ×2 (02:19→12:29)
[2023-12-09] MEDS: BELLADONNA ALKALOIDS 60 ML ML PO ×2 (04:41→08:55)
[2023-12-09] MEDS: CEFEPIME HCL 2 GM in 0.9 % SODIUM CHLORIDE 100 ML IV ×2 (04:41→12:12)
[2023-12-09] MEDS: 0.9 % SODIUM CHLORIDE 1000ML 1,000 ML 125 ML IV ×2 (04:46→12:14)
[2023-12-09] MEDS: miSOPROStoL 200 MCG TABLET 400 MCG PO ×2 (05:14→12:13)
[2023-12-09 05:15] LABS: Basophils % 0.3 % (0.1-2.0); Eosinophils # 0.3 K/mm3 (0.0-0.4); Eosinophils % 3.6 % (0.1-12.0); Hematocrit 22.1 % (42.0-52.0); Hemoglobin 7.3 g/dL (14.1-18.0); Lymphocytes # 1.1 K/mm3 (0.7-4.5); Mean Corpuscular HGB Conc 32.9 g/dL (31.8-35.4); Mean Corpuscular Hemoglobin 36.5 pg (27.0-31.2); Mean Corpuscular Volume 110.7 fl (80-94); Mean Platelet Volume 7.9 fl (7.4-10.4); Monocytes # 0.6 K/mm3 (0.1-1.0); Monocytes % 7.8 % (1.7-9.3); Neutrophils # 5.9 K/mm3 (1.8-7.8); Neutrophils % 74.3 % (37.0-80.0); Platelet Count 248 K/mm3 (142-424); Red Cell Distribution Width 16.4 % (11.5-17.5)
[2023-12-09 05:20] LABS: Chloride 104 mmol/L (98-107); Potassium 3.8 mmoL/L (3.5-5.1); Sodium 131 mmol/L (136-145)
[2023-12-09 05:23] LABS: Anion Gap 8.8 mEq/L (5-15); Blood Urea Nitrogen 12 mg/dl (9-20); Carbon Dioxide 22 mmol/L (22.0-30.0); Creatinine Clearance Estimated 107 mL/min (50-200); Estimated Glomerular Filt Rate 103 ml/min (>60); GFR (African American) 124 ML/MIN (>60)
[2023-12-09 05:24] LABS: Calcium 7.8 mg/dl (8.4-10.2); Glucose 86 mg/dl (74-100)
--- NOTE | 2023-12-09 06:24 | PC.NURSE ---
Patient has had CIWA scores of 16, 14, and 12 throughout shift. Patient been to the bathroom 3 times this shift with dark liquid stools. A CMP and CBC was ordered for this morning. Caio early at 0500 because pt was more pale than earlier in the shift. Patient has been on protonix throughout the shift and antibiotics. At midnight vitals temperature was 100.8 and treated per MAR and came back down to 99.5. Patient remains alert to person and sometimes place. He is not alert to situation. Pt got a shower last night and family has remained at bedside.
[2023-12-09] MEDS: METRONIDAZ/SOD CHL 500 MG/100 ML PIGGYBACK 100 MG IV (07:41)
[2023-12-09] MEDS: BUPRENORPHINE/NALOXONE 8MG/2MG ODT 2 EACH SL (08:53)
[2023-12-09] MEDS: GABAPENTIN 300MG CAPSULE 300 MG PO (08:54)
[2023-12-09] MEDS: PANTOPRAZOLE SODIUM 80 MG in 0.9 % SODIUM CHLORIDE 100 ML 10 MG IV (08:54)
[2023-12-09] MEDS: FOLIC ACID 1MG TABLET 1 MG PO (08:54)
[2023-12-09] MEDS: DICYCLOMINE 10MG CAPSULE 10 MG PO ×2 (08:54→12:13)
[2023-12-09] MEDS: 0.9 % SODIUM CHLORIDE 250 ML 25 ML IV (09:03)
--- NOTE | 2023-12-09 10:15 | EXP.SURG.PN ---
Subjective Narrative: Reports some blood in stool overnight Exam Data for Last 24 hours Vital signs and Labs for Last 24 Hours: Temp Pulse Resp BP Pulse Ox O2 Del Method O2 Flow Rate 98.8 F 88 22 86/66 L 97 Room Air 3 12/09/23 09:40 12/09/23 09:40 12/09/23 09:40 12/09/23 09:40 12/09/23 09:40 12/09/23 08:00 12/07/23 11:45 Laboratory Results - last 24 hr 12/07/23 07:05: Blood Type O Positive, Antibody Screen Negative, Crossmatch (AHG) See Detail 12/09/23 05:05: WBC 8.0, RBC 2.00 L, Hgb 7.3 L, Hct 22.1 L, MCV 110.7 H, MCH 36.5 H, MCHC 32.9, RDW 16.4, Plt Count 248, MPV 7.9, Neut % (Auto) 74.3, Lymph % (Auto) 14.0, [place] % (Auto) 7.8, Eos % (Auto) 3.6, Baso % (Auto) 0.3, Neut # (Auto) 5.9, Lymph # (Auto) 1.1, [place] # (Auto) 0.6, Eos # (Auto) 0.3, Baso # (Auto) 0.0, Sodium 131 L, Potassium 3.8, Chloride 104, Carbon Dioxide 22, Anion Gap 8.8, BUN 12, Creatinine 0.80, Estimated Creat Clear 107, Estimated GFR 103, Est GFR ( Amer) 124, Glucose 86, Calcium 7.8 L I & O for Last 24 hours: Intake & Output 12/06/23 12/07/23 12/08/23 12/09/23 11:59 11:59 11:59 11:59 Intake Total 1516 / 1516 3793 / 3793 3997 / 3997 3983 / 3983 Output Total 603 / 603 1100 / 1100 3275 / 3275 Balance 1514 / 1514 3190 / 3190 2897 / 2897 708 / 708 Weight 152 lb 6.4 oz 154 lb 4.8 oz 154 lb 4.789 oz 148 lb 14.4 oz Microbiology Reports for the Last 24 Hours: Microbiology 12/07/23 21:45 Blood Blood Culture - Preliminary Gram Negative Rods 12/07/23 21:55 Sputum - Expectorated Sputum Gram Stain - Final 12/07/23 21:55 Sputum - Expectorated Sputum Sputum Culture - Preliminary 12/07/23 21:50 Blood Blood Culture - Preliminary NO GROWTH AFTER 24 HOURS Constitutional Constitutional: no acute distress *Routine Respiratory Exam Respiratory: Absent respiratory distress *Routine Cardiovascular Exam Cardiovascular: Absent tachycardia Progress Note: A&P Assessment and plan (1) Acute blood loss anemia: Status: Acute Assessment and plan: Hemoglobin down to 7.3 this a.m. He is currently receiving a unit of packed red blood cells. The patient may be continuing to ooze from his known duodenal source. Additional source remains a possibility. -Transfuse as per primary service -May benefit from repeat EGD (he will be made NPO after midnight); although, he is currently status post 2 separate endoscopic evaluations at this facility...additional endoscopic evaluation at a tertiary facility may be more beneficial. -May benefit from transfer to tertiary facility capable of more complex endoscopic evaluation and possible angiographic evaluation. (2) Upper GI bleed: Status: Acute Assessment and plan: (See above) (3) Duodenal ulcer: Status: Acute Assessment and plan: (See above)
--- NOTE | 2023-12-09 12:02 | P.PN_ITS ---
Subjective *Date: 12/09/23 *Time: 12:02 Interval history: patient is seen at bedside, he has been having blood in stool Exam Data for Last 24 hours Vital signs and Labs for Last 24 Hours: Temp Pulse Resp BP Pulse Ox O2 Del Method O2 Flow Rate 98.5 F 84 20 107/64 L 98 Room Air 3 12/09/23 10:25 12/09/23 10:25 12/09/23 10:25 12/09/23 10:25 12/09/23 10:25 12/09/23 11:00 12/07/23 11:45 Laboratory Results - last 24 hr 12/07/23 07:05: Blood Type O Positive, Antibody Screen Negative, Crossmatch (AHG) See Detail 12/09/23 05:05: WBC 8.0, RBC 2.00 L, Hgb 7.3 L, Hct 22.1 L, MCV 110.7 H, MCH 36.5 H, MCHC 32.9, RDW 16.4, Plt Count 248, MPV 7.9, Neut % (Auto) 74.3, Lymph % (Auto) 14.0, [place] % (Auto) 7.8, Eos % (Auto) 3.6, Baso % (Auto) 0.3, Neut # (Auto) 5.9, Lymph # (Auto) 1.1, [place] # (Auto) 0.6, Eos # (Auto) 0.3, Baso # (Auto) 0.0, Sodium 131 L, Potassium 3.8, Chloride 104, Carbon Dioxide 22, Anion Gap 8.8, BUN 12, Creatinine 0.80, Estimated Creat Clear 107, Estimated GFR 103, Est GFR ( Amer) 124, Glucose 86, Calcium 7.8 L I & O for Last 24 hours: Intake & Output 12/06/23 12/07/23 12/08/23 12/09/23 23:59 23:59 23:59 23:59 Intake Total 3927 / 3927 2262 / 2262 4123 / 4583 2106 / 2107 Output Total 1700 / 1700 1275 / 2075 1999 / 1999 Balance 3923 / 3923 562 / 562 2848 / 2508 107 / 107 Weight 69.127 kg 69.989 kg 69.989 kg 67.54 kg Microbiology Reports for the Last 24 Hours: Microbiology 12/07/23 21:45 Blood Blood Culture - Preliminary Gram Negative Rods 12/07/23 21:55 Sputum - Expectorated Sputum Gram Stain - Final 12/07/23 21:55 Sputum - Expectorated Sputum Sputum Culture - Preliminary 12/07/23 21:50 Blood Blood Culture - Preliminary NO GROWTH AFTER 24 HOURS Constitutional Constitutional: no acute distress *Routine HEENT Exam Head: Present normocephalic Eye: Present EOMI and PERRL ENT: Present mucous membranes moist *Routine Neck Exam Neck: Present supple; Absent lymphadenopathy *Routine Respiratory Exam Respiratory: Present CTA bilaterally *Routine Cardiovascular Exam Cardiovascular: Present RRR *Routine Abdominal Exam Abdominal: Present soft and normoactive bowel sounds; Absent tenderness *Routine Extremities Exam Extremities: Absent cyanosis, clubbing or edema *Routine Skin Exam Skin: Present warm; Absent rash *Routine Neurological Exam Neurological: Present alert and oriented X3 Assessment and Plan *Assessment and plan (1) Upper GI bleed: Status: Acute Category: Medical Code(s): K92.2 - Gastrointestinal hemorrhage, unspecified (2) Acute blood loss anemia: Status: Acute Category: Medical Code(s): D62 - Acute posthemorrhagic anemia (3) Duodenal ulcer: Status: Acute Category: Medical Code(s): K26.9 - Duodenal ulcer, unspecified as acute or chronic, without hemorrhage or perforation (4) Abdominal pain, acute: Status: Acute Category: Medical Code(s): R10.9 - Unspecified abdominal pain (5) Nausea & vomiting: Status: Acute Qualifiers: Vomiting type: unspecified Qualified Code(s): R11.2 - Nausea with vomiting, unspecified Category: Medical Code(s): R11.2 - Nausea with vomiting, unspecified (6) Melena: Status: Acute Category: Medical Code(s): K92.1 - Melena (7) Esophagitis with gastritis: Status: Acute Category: Medical Code(s): K29.70 - Gastritis, unspecified, without bleeding; K20.90 - Esophagitis, unspecified without bleeding (8) Tobacco abuse: Status: Chronic Category: Medical Code(s): Z72.0 - Tobacco use (9) Drug abuse and dependence: Status: Acute Category: Medical Code(s): F19.20 - Other psychoactive substance dependence, uncomplicated Plan 48 year-old male with a PMHx of heart disease, asthma, bronchitis, GERD with past duodenal ulcer, drug and alcohol dependence on Suboxone, anxiety, chronic pain on NSAID, tobacco use disorder who presented for evaluation of of intractable vomiting and dark stool. arrive normotensive but tachycardic. Initial workup will be conducted with hematologic labs CT scan of the abdomen pelvis. Initial interventions include crystalloid bolus Protonix drip Toradol Tylenol antiemetics. Initial workup reviewed by me shows that HH normal. no signs of bleeding. Electrolytes depleted. replaced at ED. CT of abdomen negative. Surgeon was consulted.. patient placed on protonix continuous infusion. Discussed with ED provider for admission. Taken for EGD today, found to have oozing ulcer. Hemoglobin has dropped. Needs continued monitoring and inpatient management. Problems addressed as follows: Acute blood loss anemia due to duodenal ulcer Melena Intractable nausea and vomiting s/p repeat EGD. Found to have oozing duodenal ulcer. Injected with epinephrine. Hb dropped overnight, ordered 2 units PRBC, plan to possibly transfer for higher level of care with GI equipped facility and IR / Vascular surgery Angiography Repeat EGD still shows inflammed duodenal ulcer - added on misoprostol monitor Hb - continue protonix gtt - Diarrhea panel negative, stool occult positive -BUN elevated at 22, creatinine 0.6. Liver enzymes stable with bili of 0.9, AST 60, ALT 10 Fever - blood culture positive for GRAM NEGATIVE RODS PCR: Enterobacter cloacae, emilieley translocation from intestine - started on flagyl, cefepime and vancomycin follow up on sensistivities Intractable pain - improved Opiate dependence -Resume home Suboxone regimen -Compazine x 1 today for nausea. Continue Zofran 4 mg as needed every 6-8 hours. -GI cocktail available every 6 hours as needed -Complaining of back pain with sciatica, initiated gabapentin 300 mg History of multidrug abuse including alcohol and tobacco dependence Last drink before admission Monitors for CIWA On nicotine patch SCD for DVT prophylaxis. Full code Clear liquid diet high risk for decompensation, continue on Misoprostol, IV protonix, monitor Hb ok to start on CLD, continue IV PPI, monitor Hb, likely DC 1-2 days if Hb stable Hb dropped overnight, ordered 2 units PRBC, plan to possibly transfer for higher level of care with GI equipped facility and IR /Angiography
[2023-12-09] MEDS: NICOTINE 21MG/24HR PATCH 21 MG TD (12:14)
--- NOTE | 2023-12-09 12:40 | P.DS_ITS ---
General Admission date:: 12/03/23 Discharge date: 12/09/23 HPI HPI HPI: Patient is a 48-year-old male from [place], [place] with history of alcohol abuse/dependence, heart disease, asthma, bronchitis, GERD, prior history of duodenal ulcer, anxiety, chronic pain on NSAID use, tobacco abuse who presented to the emergency department in the evening of 12/02/2023 with abdominal pain, nausea, and vomiting with symptoms of melena. He was found to have a BUN of 24 with a creatinine of 0.6. Potassium 2.9. Coagulation profile normal. AST of 67. Stool positive for occult blood. CT scan revealed no acute process. Dis wade esophageal wall thickening concerning for esophagitis. Hepatic steatosis . Patient had a prior history of undergoing upper endoscopy in August 2023 evidence of GI blood loss at which time he was found to have erosive gastritis with moderately large moderately deep gastric antral ulcer as well as a duodenal ulcer which had visible vessel requiring hemostatic measures along with duodenitis. This was able to be healed medically on follow-up endoscopy a few months later. He was admitted for inpatient management and surgical consultation for possible upper endoscopy. Overnight he had had pain requiring appreciable narcotics. . Hospital Course Hospital Course Hospital Course: 48 year-old male with a PMHx of heart disease, asthma, bronchitis, GERD with past duodenal ulcer, drug and alcohol dependence on Suboxone, anxiety, chronic pain on NSAID, tobacco use disorder who presented for evaluation of of intractable vomiting and dark stool. arrive normotensive but tachycardic. Initial workup will be conducted with hematologic labs CT scan of the abdomen pelvis. Initial interventions include crystalloid bolus Protonix drip Toradol Tylenol antiemetics. Initial workup reviewed by me shows that HH normal. no signs of bleeding. Electrolytes depleted. replaced at ED. CT of abdomen nega tive. Surgeon was consulted.. patient placed on protonix continuous infusion. Discussed with ED provider for admission. Taken for EGD today, found to have oozing ulcer. Hemoglobin has dropped. Needs continued monitoring and inpatient management. Problems addressed as follows: Acute blood loss anemia due to duodenal ulcer Melena Intractable nausea and vomiting s/p repeat EGD. Found to have oozing duodenal ulcer. Injected with epinephrine. Hb dropped overnight, ordered 2 units PRBC, plan to possibly transfer for higher level of care with GI equipped facility and IR / Vascular surgery Angiography Repeat EGD still shows inflammed duodenal ulcer - added on misoprostol monitor Hb - continue protonix gtt - Diarrhea panel negative, stool occult positive -BUN elevated at 22, creatinine 0.6. Liver enzymes stable with bili of 0.9, AST 60, ALT 10 Fever - blood culture positive for GRAM NEGATIVE RODS PCR: Enterobacter cloacae, kenny translocation from intestine - started on flagyl, cefepime and vancomycin follow up on sensistivities Intractable pain - improved Opiate dependence -Resume home Suboxone regimen -Compazine x 1 today for nausea. Continue Zofran 4 mg as needed every 6-8 hours. -GI cocktail available every 6 hours as needed -Complaining of back pain with sciatica, initiated gabapentin 300 mg History of multidrug abuse including alcohol and tobacco dependence Last drink before admission Monitors for CIWA On nicotine patch SCD for DVT prophylaxis. Full code Clear liquid diet high risk for decompensation, continue on Misoprostol, IV protonix, monitor Hb ok to start on CLD, continue IV PPI, monitor Hb, likely DC 1-2 days if Hb stable Hb dropped overnight, ordered 2 units PRBC, plan to possibly transfer for higher level of care with GI equipped facility and IR /Angiography Exam Data for Last 24 hours Vital signs and Labs for Last 24 Hours: Temp Pulse Resp BP Pulse Ox O2 Del Method O2 Flow Rate 98.5 F 84 20 107/64 L 98 Room Air 3 12/09/23 10:25 12/09/23 10:25 12/09/23 10:25 12/09/23 10:25 12/09/23 10:25 12/09/23 11:00 12/07/23 11:45 Laboratory Results - last 24 hr 12/07/23 07:05: Blood Type O Positive, Antibody Screen Negative, Crossmatch (AHG) See Detail 12/09/23 05:05: WBC 8.0, RBC 2.00 L, Hgb 7.3 L, Hct 22.1 L, MCV 110.7 H, MCH 36.5 H, MCHC 32.9, RDW 16.4, Plt Count 248, MPV 7.9, Neut % (Auto) 74.3, Lymph % (Auto) 14.0, [place] % (Auto) 7.8, Eos % (Auto) 3.6, Baso % (Auto) 0.3, Neut # (Auto) 5.9, Lymph # (Auto) 1.1, [place] # (Auto) 0.6, Eos # (Auto) 0.3, Baso # (Auto) 0.0, Sodium 131 L, Potassium 3.8, Chloride 104, Carbon Dioxide 22, Anion Gap 8.8, BUN 12, Creatinine 0.80, Estimated Creat Clear 107, Estimated GFR 103, Est GFR ( Amer) 124, Glucose 86, Calcium 7.8 L I & O for Last 24 hours: Intake & Output 12/06/23 12/07/23 12/08/23 12/09/23 23:59 23:59 23:59 23:59 Intake Total 3927 / 3927 2262 / 2262 4123 / 4583 3130 / 3130 Output Total 1700 / 1700 1275 / 2075 1999 Balance 3923 / 3923 562 / 562 2848 / 2508 1130 / 1130 Weight 69.127 kg 69.989 kg 69.989 kg 67.54 kg Microbiology Reports for the Last 24 Hours: Microbiology 12/07/23 21:45 Blood Blood Culture - Preliminary Gram Negative Rods 12/07/23 21:55 Sputum - Expectorated Sputum Gram Stain - Final 12/07/23 21:55 Sputum - Expectorated Sputum Sputum Culture - Preliminary 12/07/23 21:50 Blood Blood Culture - Preliminary NO GROWTH AFTER 24 HOURS Constitutional Constitutional: no acute distress *Routine HEENT Exam Head: Present normocephalic Eye: Present EOMI and PERRL ENT: Present mucous membranes moist *Routine Neck Exam Neck: Present supple; Absent lymphadenopathy *Routine Respiratory Exam Respiratory: Present CTA bilaterally *Routine Cardiovascular Exam Cardiovascular: Present RRR *Routine Abdominal Exam Abdominal: Present soft and normoactive bowel sounds; Absent tenderness *Routine Extremities Exam Extremities: Absent cyanosis, clubbing or edema *Routine Skin Exam Skin: Present warm; Absent rash *Routine Neurological Exam Neurological: Present alert and oriented X3 Results Data Completed and Pending Labs on day of discharge: Labs from last 24 hours 12/09/23 12/07/23 05:05 07:05 WBC 8.0 RBC 2.00 L Hgb 7.3 L Hct 22.1 L MCV 110.7 H MCH 36.5 H MCHC 32.9 RDW 16.4 Plt Count 248 MPV 7.9 Neut % (Auto) 74.3 Lymph % (Auto) 14.0 [place] % (Auto) 7.8 Eos % (Auto) 3.6 Baso % (Auto) 0.3 Neut # (Auto) 5.9 Lymph # (Auto) 1.1 [place] # (Auto) 0.6 Eos # (Auto) 0.3 Baso # (Auto) 0.0 Sodium 131 L Potassium 3.8 Chloride 104 Carbon Dioxide 22 Anion Gap 8.8 BUN 12 Creatinine 0.80 Estimated Creat Clear 107 Estimated GFR 103 Est GFR ( Amer) 124 Glucose 86 Calcium 7.8 L Blood Type O Positive Antibody Screen Negative Crossmatch (AHG) See Detail Preliminary micro results at discharge 12/07/23 21:45 Blood Culture - Preliminary Blood Gram Negative Rods 12/07/23 21:55 Sputum Culture - Preliminary Sputum - Expectorated Sputum 12/07/23 21:50 Blood Culture - Preliminary Blood NO GROWTH AFTER 24 HOURS DS: Diagnosis Discharge Diagnosis (1) Upper GI bleed: Status: Acute Code(s): K92.2 - Gastrointestinal hemorrhage, unspecified (2) Acute blood loss anemia: Status: Acute Code(s): D62 - Acute posthemorrhagic anemia (3) Duodenal ulcer: Status: Acute Code(s): K26.9 - Duodenal ulcer, unspecified as acute or chronic, without hemorrhage or perforation (4) Abdominal pain, acute: Status: Acute Code(s): R10.9 - Unspecified abdominal pain (5) Nausea & vomiting: Status: Acute Code(s): R11.2 - Nausea with vomiting, unspecified Qualifiers: Vomiting type: unspecified Qualified Code(s): R11.2 - Nausea with vomiting, unspecified (6) Melena: Status: Acute Code(s): K92.1 - Melena (7) Esophagitis with gastritis: Status: Acute Code(s): K29.70 - Gastritis, unspecified, without bleeding; K20.90 - Esophagitis, unspecified without bleeding (8) Tobacco abuse: Status: Chronic Code(s): Z72.0 - Tobacco use (9) Drug abuse and dependence: Status: Acute Code(s): F19.20 - Other psychoactive substance dependence, uncomplicated Meds Home Medications and Allergies Home Medications Medication Instructions Recorded Confirmed Type buprenorphine 8 mg-naloxone 2 mg 2 tab sublingual DAILY 08/17/22 12/02/23 History sublingual tablet New Prescriptions to Start Prescriptions: Allergies Allergy/AdvReac Type Severity Reaction Status Date / Time aspirin [ASPIRIN] Allergy Unknown Verified 08/17/22 10:30 piperacillin [From Zosyn] Allergy Verified 08/17/22 10:30 tazobactam [From Zosyn] Allergy Verified 08/17/22 10:30 Discharge Plan Disposition Patient Disposition: [facility] Bed Condition: Fair Discharge Order Discharge Orders: Discharge Order (Routine); Ordered 12/09/23 Ordered By: Donald Trevizo Follow up Plan Follow up with: Evan Nieves MD [Staff Physician] - 12/18/23 10:45 am Tim Rey MD [Staff Physician] - 12/12/23 3:00 pm Sarah Singleton APRN [Nurse Practitioner] - 01/01/24 10:30 am Prescriptions/Medication Reconciliation: Continued buprenorphine-naloxone 8-2 mg tablet, sublingual 2 tab sublingual DAILY Problem Reconciliation Problems Reviewed?: Yes Patient Discharge Instructions ACTIVITY: Ambulate as tolerated DIET: other Additional Instructions: clear liquid diet Patient Instructions: DI for Gastritis, DI for Nausea -- Adult, DI for Vomiting -- Adult, DI for Gastrointestinal Bleeding Providers Primary Care Provider: Aj Valentine Adminés Provider: Michael Bernstein Attending Provider: Michael Bernstein
[2023-12-09 13:29] LABS: Hematocrit 29.4 % (42.0-52.0)
[2023-12-09 13:49] LABS: Hemoglobin 9.3 g/dL (14.1-18.0)
[2023-12-09 13:54] LABS: Vancomycin,Trough 10.2 ug/mL (5.0-10.0)
== END 2023-12-09 13:41 | disposition short-term general hospital (02) | DRG 378 ==
LOC: ER 22:11 → 2ND 22:56
PROVIDERS: Internal Medicine; Nurse Practitioner Acute Care; Nurse Practitioner Family; Physician Assistant; Surgery; Admitting Provider Internal Medicine Adolescent Medicine; Emergency Provider Emergency Medicine; PCP Internal Medicine Adolescent Medicine; Visit Provider Internal Medicine Adolescent Medicine
PROC: 0DJ08ZZ Inspection of Upper Intestinal Tract, Via Natural or Artificial Opening Endoscopic (ICD-10-PCS; CPT 43235; principal; 2023-12-03 08:00)
DX: K26.4 Chronic or unspecified duodenal ulcer with hemorrhage (principal); D62 Acute posthemorrhagic anemia; F19.20 Other psychoactive substance dependence, uncomplicated; F11.20 Opioid dependence, uncomplicated; Z72.0 Tobacco use; F32.A Depression, unspecified; F41.9 Anxiety disorder, unspecified; F17.210 Nicotine dependence, cigarettes, uncomplicated; F10.20 Alcohol dependence, uncomplicated; K29.70 Gastritis, unspecified, without bleeding; K29.80 Duodenitis without bleeding
CPT/HCPCS: 43255; 36415; 71045; 71250; 74176; 74177; 80048; 80053; 80202; 80320; 81001; 82272; 83605; 83690; 83735; 85014; 85018; 85025; 85610; 86850; 87040; 87070; 87077; 87186; 87205; 87507; 94640; 99285; G0328; J0131; J0500; J0574; J1100; J1170; J2060; J2250; J2270; J2405; J3370; J3475; J7120; J7620; P9016; Q9967

== ENCOUNTER 2024-03-13 11:54 | Observation (INO) | payer MEDICARE, MEDICAID, SELFPAY ==
[2024-03-13] VITALS (16 sets, daily range): BP systolic 101–153; BP diastolic 63–126; PULSE 56–99; RESP 18–20; TEMP 36.4–36.6; O2SAT 95–99; BMI 22.8
--- NOTE | 2024-03-13 12:00 | HMH.EDGENADL ---
Discharge Plan Disposition Chief Complaint: GI Bleed Discharge ED Provider: Romeo Graham General Adult HPI General Chief complaint: GI Bleed Stated complaint: passing blood and vomitting blood Time Seen by Provider: 03/13/24 12:00 History of Present Illness HPI narrative: The patient presents with a chief complaint of vomiting and bloody stools. They report waking up at 5 o'clock in the morning and experiencing vomiting, which was watery and maroon in color. The stool is described as resembling coffee grounds, with more blood than stool present. The patient has a history of an ulcer and has previously undergone an endoscopy performed by Dr. Alvarado and possibly another doctor named Brenton. They are unsure if they have been diagnosed with esophageal varices. There is no recent fever or diarrhea reported, but the patient mentions that their family has a history of hair loss. The patient has been experiencing abdominal pain for about a month, with multiple episodes of vomiting and bloody stools, including at least three episodes of vomiting. They deny taking excessive amounts of ibuprofen and report a history of heavy alcohol consumption. The patient expresses concern about the amount of blood in their body and is awaiting the results of a blood count test. They recall a previous similar episode where they were told that their body produces more blood to compensate for the loss. The patient also mentions that during their most recent episode, they vomited water with a large, dark maroon substance. Please note that above description of symptoms, in this electronic medical record under categorization of recalled from ER triage doctor by RN are reflective of an initial nursing assessment, however, is not reflective of my full history and physical exam that was personally taken and clarified. Consequentially, this preceding description of symptoms, which may include the patient's categorized chief complaint in the EMR, do not reflect my personal clinical impression, and the ultimate description of history of present illness and patient stated complaints should be deferred to this section of the note. Unless stated otherwise or congruent with this section of the note, additional signs, symptoms, or incongruence should be interpreted as inaccurate with my clinical impression. Related Data Home Medications ?Medication ?Instructions ?Recorded ?Confirmed buprenorphine 8 mg-naloxone 2 mg 2 tab sublingual DAILY 08/17/22 03/13/24 sublingual tablet acamprosate 333 mg tablet,delayed 333 mg PO TID 03/13/24 03/13/24 release aripiprazole 5 mg tablet 5 mg PO DAILY 03/13/24 03/13/24 buspirone 10 mg tablet 10 mg PO TIDP PRN Anxiety 03/13/24 03/13/24 ibuprofen 800 mg tablet 800 mg PO QIDP PRN Mild Pain 03/13/24 03/13/24 (Scale Score 1-4) mirtazapine 15 mg tablet 15 mg PO HS 03/13/24 03/13/24 pantoprazole 40 mg tablet,delayed 40 mg PO DAILY 03/13/24 03/13/24 release propranolol 10 mg tablet 10 mg PO TID 03/13/24 03/13/24 Allergies Allergy/AdvReac Type Severity Reaction Status Date / Time aspirin [ASPIRIN] Allergy Unknown Verified 01/08/24 10:51 piperacillin [From Zosyn] Allergy Verified 01/08/24 10:51 tazobactam [From Zosyn] Allergy Verified 01/08/24 10:51 [facility] Disclaimer: The information contained in this section may have been updated after the patient was seen, as this information can be updated by other users. Medical History Depression Anxiety Traumatic brain injury Surgical History History of foot surgery H/O lithotripsy History of appendectomy H/O right knee surgery H/O anterior cruciate ligament surgery Previous back surgery Family History Grandmother Cancer Diabetes Stroke Grandfather Cancer Mother Diabetes Hypertension Social History Smoking Status: Current every day smoker tobacco type: cigarettes packs per day: 1 alcohol intake: current alcohol intake frequency: a few times a week counseling provided: provider counseling substance use type: former substance user and prescription drug current occupational status: disabled Travel in the last 8 weeks: None household members: significant other housing: house current occupational exposures/hazards: No caffeine: No ROS Obtained: Yes other As per HPI Physical Exam General General appearance: alert and in no apparent distress Head Head exam: atraumatic and normocephalic Eye Eye exam: Present normal appearance Neck Neck exam: Present normal inspection Chest Chest inspection: Present normal inspection and symmetric chest wall rise Respiratory Respiratory exam: Present normal lung sounds bilaterally; Absent respiratory distress Cardiovascular Cardiovascular exam: Present regular rate and normal rhythm Abdominal Exam Abdominal exam: Present soft and tenderness Abdominal tenderness: Present epigastrium and moderate Neurological Exam Neurological exam: Present alert and oriented X3 Psychiatric Psychiatric exam: Present normal affect and normal mood Skin Skin exam: Present warm and dry Medical Decision Making Medical Records Medical records reviewed: Yes I reviewed the patient's medical records. Screening: Per USPSTF and CDC recommendations, given the prevalence of disease in our region, it is our hospital?s policy to screen for HIV and viral Hepatitis for all patients aged 18 and over and those with ongoing risk factors. Dejan Inquiry Pt receiving controlled substance: No Vital Signs: 03/13/24 11:55 03/13/24 12:00 03/13/24 12:21 Temperature 97.7 F Temperature Source Oral Pulse Rate 99 H 95 H Pulse Rate [Right] 97 H Respiratory Rate 20 Blood Pressure 153/107 H 142/126 H Blood Pressure [Right Arm] 153/107 H Blood Pressure Mean Blood Pressure Mean [Right Arm] 122 02 Sat by Pulse Oximetry 96 97 96 Oxygen Delivery Method Room Air Room Air 03/13/24 12:31 03/13/24 13:30 03/13/24 13:51 Temperature Temperature Source Pulse Rate 92 H 69 Pulse Rate [Right] Respiratory Rate Blood Pressure 134/108 H 125/78 111/74 Blood Pressure [Right Arm] Blood Pressure Mean 86 Blood Pressure Mean [Right Arm] 02 Sat by Pulse Oximetry 97 95 Oxygen Delivery Method Room Air 03/13/24 14:00 03/13/24 14:10 03/13/24 14:30 Temperature Temperature Source Pulse Rate 58 L 65 Pulse Rate [Right] Respiratory Rate Blood Pressure 114/72 104/71 L 102/67 L Blood Pressure [Right Arm] Blood Pressure Mean 82 79 75 Blood Pressure Mean [Right Arm] 02 Sat by Pulse Oximetry 98 99 Oxygen Delivery Method Room Air Room Air 03/13/24 14:40 03/13/24 15:06 03/13/24 15:10 Temperature Temperature Source Pulse Rate 56 L 57 L 60 Pulse Rate [Right] Respiratory Rate Blood Pressure 115/77 120/79 112/80 Blood Pressure [Right Arm] Blood Pressure Mean 87 Blood Pressure Mean [Right Arm] 02 Sat by Pulse Oximetry 99 99 97 Oxygen Delivery Method Room Air Room Air Room Air 03/13/24 15:18 Temperature Temperature Source Pulse Rate 60 Pulse Rate [Right] Respiratory Rate Blood Pressure 124/80 Blood Pressure [Right Arm] Blood Pressure Mean Blood Pressure Mean [Right Arm] 02 Sat by Pulse Oximetry 97 Oxygen Delivery Method Room Air Lab Data Lab Results 03/13/24 12:10: WBC 13.3 H, RBC 4.48 L, Hgb 14.7, Hct 46.9, MCV 104.5 H, MCH 32.7 H, MCHC 31.3 L, RDW 16.0, Plt Count 301, MPV 7.8, Neut % (Auto) 71.0, Lymph % (Auto) 24.1, [place] % (Auto) 3.7, Eos % (Auto) 0.6, Baso % (Auto) 0.6, Neut # (Auto) 9.5 H, Lymph # (Auto) 3.2, [place] # (Auto) 0.5, Eos # (Auto) 0.1, Baso # (Auto) 0.1, PT 10.1, INR 0.89 L, Sodium 140, Potassium 3.7, Chloride 103, Carbon Dioxide 34 H, Anion Gap 6.7, BUN 35 H, Creatinine 0.60 L, Estimated Creat Clear 143, Estimated GFR 143, Est GFR ( Amer) 173, Glucose 87, Calcium 9.7, Total Bilirubin 1.0, AST 38, ALT 13, Alkaline Phosphatase 69, Total Protein 8.1 D, Albumin 4.7, Globulin 3.4 H, Albumin/Globulin Ratio 1.4, Lipase 57, Blood Type O Positive, Antibody Screen Negative 03/13/24 12:10 03/13/24 12:10 Orders (Tests/Meds): ED MEDICATIONS Generic Name Dose Route Start Last Admin Trade Name Freq PRN Reason Stop Dose Admin Ceftriaxone Sodium 1 gm/ 50 mls @ 100 mls/hr 03/13/24 15:00 03/13/24 15:15 Sodium Chloride IV 03/23/24 14:59 100 mls/hr Q24H JOSE Administration Lactated Ringer's 1,000 mls @ 100 mls/hr 03/13/24 15:15 Lactated Ringer's 1000 Ml Bag IV 04/12/24 15:14 .Q10H JOSE Ondansetron HCl 4 mg 03/13/24 15:11 Ondansetron 4mg/2ml Vial IV 04/12/24 15:10 Q8HP PRN Nausea Pantoprazole Sodium 40 mg 03/13/24 21:00 Pantoprazole 40mg Vial IV 04/12/24 20:59 BID JOSE Sodium Chloride 10 ml 03/13/24 15:21 Sodium Chloride 0.9% 10ml Flush Syringe IV 04/12/24 15:20 NEEDED PRN Maintain IV Site Sodium Chloride 10 ml 03/13/24 15:21 Sodium Chloride 0.9% 10ml Vial IV 04/12/24 15:20 NEEDED PRN Reconstitute Medications Discontinued Medications Generic Name Dose Route Start Last Admin Trade Name Martellq PRN Reason Stop Dose Admin Iopamidol 80 ml 03/13/24 13:08 03/13/24 13:09 Iopamidol-370 (76%);100ml Bottle IV 03/13/24 13:09 80 ml ONCE ONE Administration Pantoprazole Sodium 40 mg 03/13/24 14:45 03/13/24 15:14 Pantoprazole 40mg Vial IV 03/13/24 14:46 40 mg ONCE ONE Administration Sodium Chloride 10 ml 03/13/24 13:08 03/13/24 13:09 Sodium Chloride 0.9% 10ml Syr (Rad Only) IV 03/13/24 13:09 10 ml ONCE ONE Administration Sodium Chloride 50 ml 03/13/24 13:08 03/13/24 13:09 0.9 % Sodium Chloride 50 Ml Vial IV 03/13/24 13:09 50 ml ONCE ONE Administration Sodium Chloride 10 ml 03/13/24 14:45 Sodium Chloride 0.9% 10ml Vial IV 04/12/24 14:44 NEEDED PRN dilute protonix ORDERS Category Date Time Status Type and Screen Stat BBK 03/13/24 12:[address] angio abdomen pelvis Stat Cat Scan 03/13/24 12:34 Completed Gastroenterology Consult [Consult to Gastroenterology] Cons 03/13/24 15:14 Active [CONS] Routine CBC w/Auto Diff [Complete Blood Count Auto Diff] Stat Lab 03/13/24 12:10 Completed CMP [Comprehensive Metabolic Panel] Stat Lab 03/13/24 12:10 Completed HIV (1&2) Antibody Rapid Stat Lab 03/13/24 12:10 Received Hemoglobin and Hematocrit Q8H Lab 03/13/24 15:24 Received Hemoglobin and Hematocrit Q8H Lab 03/13/24 20:15 Ordered Hemoglobin and Hematocrit Q8H Lab 03/13/24 23:11 Ordered Hemoglobin and Hematocrit Q8H Lab 03/14/24 07:11 Ordered Hemoglobin and Hematocrit Q8H Lab 03/14/24 15:11 Ordered Hep C Ab with Reflex to RNA Stat Lab 03/13/24 12:10 Received Lipase Stat Lab 03/13/24 12:10 Completed PT INR [Prothrombin Time INR] Stat Lab 03/13/24 12:10 Completed Blood Culture Stat Micro 03/13/24 15:20 Received Medical Decision Narrative: Patient with history and exam per above presenting for evaluation of melena, hematemesis Diagnoses considered include upper GI bleed, bleeding esophageal ulcers, lower GI bleed, PUD, perforation, among others ED workup and treatment included: ED MEDICATIONS Generic Name Dose Route Start Last Admin Trade Name Freq PRN Reason Stop Dose Admin Ceftriaxone Sodium 1 gm/ 50 mls @ 100 mls/hr 03/13/24 15:00 03/13/24 15:15 Sodium Chloride IV 03/23/24 14:59 100 mls/hr Q24H JOSE Administration Lactated Ringer's 1,000 mls @ 100 mls/hr 03/13/24 15:15 Lactated Ringer's 1000 Ml Bag IV 04/12/24 15:14 .Q10H JOSE Ondansetron HCl 4 mg 03/13/24 15:11 Ondansetron 4mg/2ml Vial IV 04/12/24 15:10 Q8HP PRN Nausea Pantoprazole Sodium 40 mg 03/13/24 21:00 Pantoprazole 40mg Vial IV 04/12/24 20:59 BID JOSE Sodium Chloride 10 ml 03/13/24 15:21 Sodium Chloride 0.9% 10ml Flush Syringe IV 04/12/24 15:20 NEEDED PRN Maintain IV Site Sodium Chloride 10 ml 03/13/24 15:21 Sodium Chloride 0.9% 10ml Vial IV 04/12/24 15:20 NEEDED PRN Reconstitute Medications Discontinued Medications Generic Name Dose Route Start Last Admin Trade Name Freq PRN Reason Stop Dose Admin Iopamidol 80 ml 03/13/24 13:08 03/13/24 13:09 Iopamidol-370 (76%);100ml Bottle IV 03/13/24 13:09 80 ml ONCE ONE Administration Pantoprazole Sodium 40 mg 03/13/24 14:45 03/13/24 15:14 Pantoprazole 40mg Vial IV 03/13/24 14:46 40 mg ONCE ONE Administration Sodium Chloride 10 ml 03/13/24 13:08 03/13/24 13:09 Sodium Chloride 0.9% 10ml Syr (Rad Only) IV 03/13/24 13:09 10 ml ONCE ONE Administration Sodium Chloride 50 ml 03/13/24 13:08 03/13/24 13:09 0.9 % Sodium Chloride 50 Ml Vial IV 03/13/24 13:09 50 ml ONCE ONE Administration Sodium Chloride 10 ml 03/13/24 14:45 Sodium Chloride 0.9% 10ml Vial IV 04/12/24 14:44 NEEDED PRN dilute protonix ORDERS Category Date Time Status Type and Screen Stat BBK 03/13/24 12:[address] angio abdomen pelvis Stat Cat Scan 03/13/24 12:34 Completed Gastroenterology Consult [Consult to Gastroenterology] Cons 03/13/24 15:14 Active [CONS] Routine CBC w/Auto Diff [Complete Blood Count Auto Diff] Stat Lab 03/13/24 12:10 Completed CMP [Comprehensive Metabolic Panel] Stat Lab 03/13/24 12:10 Completed HIV (1&2) Antibody Rapid Stat Lab 03/13/24 12:10 Received Hemoglobin and Hematocrit Q8H Lab 03/13/24 15:24 Received Hemoglobin and Hematocrit Q8H Lab 03/13/24 20:15 Ordered Hemoglobin and Hematocrit Q8H Lab 03/13/24 23:11 Ordered Hemoglobin and Hematocrit Q8H Lab 03/14/24 07:11 Ordered Hemoglobin and Hematocrit Q8H Lab 03/14/24 15:11 Ordered Hep C Ab with Reflex to RNA Stat Lab 03/13/24 12:10 Received Lipase Stat Lab 03/13/24 12:10 Completed PT INR [Prothrombin Time INR] Stat Lab 03/13/24 12:10 Completed Blood Culture Stat Micro 03/13/24 15:20 Received Labs were independently interpreted by me, significant for leukocytosis to 13.3, hemoglobin 14.7, BUN 35, creatinine 0.6 Imaging was independently visualized and interpreted by me, significant for no acute extravasation Please refer to radiology report for full details. My clinical impression at this time is most consistent with upper GI bleed. Patient will benefit from admission for further management of suspected upper GI bleed. He was accepted for admission by hospitalist. Critical Care Critical Care Time Critical Care Time: No
[2024-03-13 12:30] LABS: Basophils # 0.1 K/mm3 (0-0.2); Basophils % 0.6 % (0.1-2.0); Eosinophils # 0.1 K/mm3 (0.0-0.4); Eosinophils % 0.6 % (0.1-12.0); Hematocrit 46.9 % (42.0-52.0); Hemoglobin 14.7 g/dL (14.1-18.0); Lymphocytes # 3.2 K/mm3 (0.7-4.5); Lymphocytes % 24.1 % (10-50); Mean Corpuscular HGB Conc 31.3 g/dL (31.8-35.4); Mean Corpuscular Hemoglobin 32.7 pg (27.0-31.2); Mean Corpuscular Volume 104.5 fl (80-94); Mean Platelet Volume 7.8 fl (7.4-10.4); Monocytes # 0.5 K/mm3 (0.1-1.0); Monocytes % 3.7 % (1.7-9.3); Neutrophils # 9.5 K/mm3 (1.8-7.8); Platelet Count 301 K/mm3 (142-424); Red Blood Count 4.48 M/mm3 (4.60-6.20); White Blood Count 13.3 K/mm3 (4.8-10.8)
[2024-03-13 12:32] LABS: Albumin Level 4.7 g/dl (3.5-5.0); Chloride 103 mmol/L (98-107)
[2024-03-13 12:33] LABS: Potassium 3.7 mmoL/L (3.5-5.1); Sodium 140 mmol/L (136-145)
--- NOTE | 2024-03-13 12:34 | CT_ITS ---
FINAL REPORT TECHNIQUE: Pre-and postcontrast images of the abdomen and pelvis were performed by computed tomography. Extensive 3-D reconstruction images were performed. A CTA was performed. This study was performed with techniques to keep radiation doses as low as reasonably achievable (ALARA). Individualized dose reduction techniques using automated exposure control or adjustment of mA and/or kV according to the patient's size were employed. CLINICAL HISTORY: UGIB suspected, abdominal pain COMPARISON: CT abdomen and pelvis 12/07/2023 FINDINGS: ABDOMEN AND PELVIS: The lung bases are clear. Precontrast images demonstrate multiple bilateral renal stones, measuring up to 11 mm in size. No adrenal masses are identified. The liver, spleen and pancreas are unremarkable. No pelvic mass or free fluid is seen. CTA: The abdominal aorta is proper caliber. The SMA, celiac axis, and MOIRA are patent. There is no significant stenosis or calcification. 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 No evidence of an active GI bleed is seen on this exam. The common iliac and external iliac arteries are unremarkable in appearance without evidence of significant stenosis. IMPRESSION: No significant arterial abnormality is noted in the abdomen or pelvis, specifically no evidence of an active GI bleed is present. Multiple bilateral renal stones are identified, measuring up to 11 mm in diameter. Reviewed, Interpreted and Dictated by Rangel Soto MD Transcribed by Rosemary Tsai Authenticated and [facility]
[2024-03-13 12:35] LABS: Alanine Aminotransferase 13 U/L (12-78); Alkaline Phosphatase 69 U/L (38-126); Anion Gap 6.7 mEq/L (5-15); Aspartate Amino Transferase 38 U/L (17-59); Blood Urea Nitrogen 35 mg/dl (9-20); Carbon Dioxide 34 mmol/L (22.0-30.0); Creatinine Clearance Estimated 143 mL/min (50-200); Estimated Glomerular Filt Rate 143 ml/min (>60); GFR (African American) 173 ML/MIN (>60)
[2024-03-13 12:36] LABS: Albumin/Globulin Ratio 1.4 (1.1-1.8); Calcium 9.7 mg/dl (8.4-10.2); Globulin 3.4 g/dL (1.3-3.2); Glucose 87 mg/dl (74-100); Lipase 57 U/L (23-300); Total Protein,Serum 8.1 g/dl (6.3-8.2)
--- NOTE | 2024-03-13 12:46 | PC.NURSE ---
PT TO CT
[2024-03-13 12:53] LABS: INR 0.89 (0.9-1.1); Prothrombin Time 10.1 seconds (10.1-12.5)
[2024-03-13] MEDS: SODIUM CHLORIDE 0.9% 10ML SYR (RAD ONLY) 10 ML IV (13:09)
[2024-03-13] MEDS: IOPAMIDOL-370 (76%);100ML BOTTLE 80 ML IV (13:09)
[2024-03-13] MEDS: 0.9 % SODIUM CHLORIDE 50 ML VIAL IV (13:09)
--- NOTE | 2024-03-13 14:55 | PC.NURSE ---
GI CONTACTED AT THIS TIME, AWAITING CALL BACK
--- NOTE | 2024-03-13 15:01 | PC.NURSE ---
PT UPDATED ON POC AT THIS TIME, AMBULATORY TO [facility]
--- NOTE | 2024-03-13 15:08 | PC.NURSE ---
DR HANSON SPEAKING WITH DR ANDRES
[2024-03-13] MEDS: PANTOPRAZOLE 40MG VIAL 40 MG IV ×2 (15:14→20:30)
[2024-03-13] MEDS: CEFTRIAXONE 1 GM 1 GM in 0.9 % SODIUM CHLORIDE 50 ML IV (15:15)
--- NOTE | 2024-03-13 15:15 | PC.NURSE ---
ENVIRONMENTAL SAFETY SPECIALIST NOTIFIED OF ADMISSION
--- NOTE | 2024-03-13 15:23 | HMH.PHAINT1 ---
Pharmacy Intervention Comments: MEDICATION RECONCILIATION COMPLETED ON PATIENT USING EXTERNAL FILL HISTORY FROM PHARMACY AND KINJAL REPORT. -SALBADOR ELLIOTT, AMANDAD
--- NOTE | 2024-03-13 15:39 | PC.NURSE ---
report called to Jennie
[2024-03-13 15:48] LABS: Hematocrit 41.6 % (42.0-52.0)
[2024-03-13 15:49] LABS: Hemoglobin 13.2 g/dL (14.1-18.0)
[2024-03-13 16:21] LABS: HIV (1&2) Antibody Rapid NONREACTIVE (NONREACTIVE)
[2024-03-13] MEDS: LACTATED RINGERS 1000ML 1,000 ML 100 ML IV (17:12)
--- NOTE | 2024-03-13 18:36 | PC.NURSE ---
pt arrived from the ed this afternoon complaining of blood in his stool. a&ox4. pain noted in pt back- this is not a new issue for him. VSS. RA with sats >90%. last bm today in the ED. pt is ambulatory and walks self to bathroom. no complaints at this time. call light within reach.
--- NOTE | 2024-03-13 19:20 | EXP.HP ---
History of Present Illness *Admission Date: 03/13/24 *Reason for visit:: Upper and lower GI bleed *History of present illness: Brandon Dave is a 48-year-old male with a medical history significant for previous GI bleed, duodenal ulcer presents with 1 day onset of upper and lower GI bleed. He states he had coffee-ground emesis this morning around 5 AM, then had dark bowel movement around 9 AM. He notes epigastric tenderness for the past couple days. He states his girlfriend about a month ago and he had been depressed and proceeded to drink at least 5 fireball shots a day. He has also been using NSAIDs for back pain. He states he is taking his Protonix at home. Workup in the ED revealed WBC 13.3, hemoglobin 14.7, MCV 104.5, BUN 35. Gastroenterology was contacted by ED provider who agreed to evaluate patient once admitted. Case discussed with ED provider and decision was made to admit patient for upper and lower GI bleed. [facility] Disclaimer: The information contained in this section may have been updated after the patient was seen, as this information can be updated by other users. Medical History Depression Anxiety Traumatic brain injury Surgical History History of foot surgery H/O lithotripsy History of appendectomy H/O right knee surgery H/O anterior cruciate ligament surgery Previous back surgery Family History Grandmother Cancer Diabetes Stroke Grandfather Cancer Mother Diabetes Hypertension Social History (Updated 03/13/24 @ 16:18 by Jennie Santamaria RN) Smoking Status: Current every day smoker tobacco type: cigarettes packs per day: 1 alcohol intake: current alcohol intake frequency: a few times a week counseling provided: provider counseling substance use type: former substance user and prescription drug current occupational status: disabled Travel in the last 8 weeks: None household members: significant other housing: house current occupational exposures/hazards: No caffeine: No Meds Home Medications and Allergies Home Medications ?Medication ?Instructions ?Recorded ?Confirmed ?Type buprenorphine 8 mg-naloxone 2 mg 2 tab sublingual DAILY 08/17/22 03/13/24 History sublingual tablet acamprosate 333 mg tablet,delayed 333 mg PO TID 03/13/24 03/13/24 History release aripiprazole 5 mg tablet 5 mg PO DAILY 03/13/24 03/13/24 History buspirone 10 mg tablet 10 mg PO TIDP PRN Anxiety 03/13/24 03/13/24 History ibuprofen 800 mg tablet 800 mg PO QIDP PRN Mild Pain 03/13/24 03/13/24 History (Scale Score 1-4) mirtazapine 15 mg tablet 15 mg PO HS 03/13/24 03/13/24 History nicotine 21 mg/24 hr daily 1 patch transdermal DAILY 03/13/24 03/13/24 History transdermal patch pantoprazole 40 mg tablet,delayed 40 mg PO DAILY 03/13/24 03/13/24 History release propranolol 10 mg tablet 10 mg PO TID 03/13/24 03/13/24 History New Prescriptions to Start Prescriptions: Allergies Allergy/AdvReac Type Severity Reaction Status Date / Time aspirin [ASPIRIN] Allergy Unknown Verified 01/08/24 10:51 piperacillin [From Zosyn] Allergy Verified 01/08/24 10:51 tazobactam [From Zosyn] Allergy Verified 01/08/24 10:51 Exam Data for Last 24 hours Vital signs and Labs for Last 24 Hours: Temp Pulse Resp BP Pulse Ox O2 Del Method 98 F 64 18 123/63 99 Room Air 03/13/24 16:00 03/13/24 16:00 03/13/24 16:00 03/13/24 16:00 03/13/24 16:00 03/13/24 18:58 Laboratory Results - last 24 hr 03/13/24 12:10: WBC 13.3 H, RBC 4.48 L, Hgb 14.7, Hct 46.9, MCV 104.5 H, MCH 32.7 H, MCHC 31.3 L, RDW 16.0, Plt Count 301, MPV 7.8, Neut % (Auto) 71.0, Lymph % (Auto) 24.1, [place] % (Auto) 3.7, Eos % (Auto) 0.6, Baso % (Auto) 0.6, Neut # (Auto) 9.5 H, Lymph # (Auto) 3.2, [place] # (Auto) 0.5, Eos # (Auto) 0.1, Baso # (Auto) 0.1, PT 10.1, INR 0.89 L, Sodium 140, Potassium 3.7, Chloride 103, Carbon Dioxide 34 H, Anion Gap 6.7, BUN 35 H, Creatinine 0.60 L, Estimated Creat Clear 143, Estimated GFR 143, Est GFR ( Amer) 173, Glucose 87, Calcium 9.7, Total Bilirubin 1.0, AST 38, ALT 13, Alkaline Phosphatase 69, Total Protein 8.1 D, Albumin 4.7, Globulin 3.4 H, Albumin/Globulin Ratio 1.4, Lipase 57, HIV 1&2 Antibody Rapid Nonreactive, Blood Type O Positive, Antibody Screen Negative 03/13/24 15:24: Hgb 13.2 L D, Hct 41.6 L I & O for Last 24 hours: Intake & Output 03/10/24 03/11/24 03/12/24 03/13/24 23:59 23:59 23:59 23:59 Weight 68.039 kg Constitutional Constitutional: no acute distress *Routine HEENT Exam Head: Present normocephalic Eye: Present EOMI and PERRL ENT: Present mucous membranes moist *Routine Neck Exam Neck: Present supple; Absent lymphadenopathy *Routine Respiratory Exam Respiratory: Present CTA bilaterally *Routine Cardiovascular Exam Cardiovascular: Present RRR *Routine Abdominal Exam Abdominal: Present soft and tenderness Comments: Mild left upper quadrant tenderness to deep palpation. No peritoneal signs *Routine Rectal Exam Rectal:: deferred *Routine Genitalia Exam Genitalia:: deferred *Routine Extremities Exam Extremities: Absent cyanosis, clubbing or edema *Routine Skin Exam Skin: Present warm; Absent rash *Routine Neurological Exam Neurological: Present alert and oriented X3 Assessment and Plan *Assessment and plan (1) Gastrointestinal bleed: Status: Acute Qualifiers: GI bleed type/associated pathology: duodenal ulcer Qualified Code(s): K26.4 - Chronic or unspecified duodenal ulcer with hemorrhage Category: Medical Code(s): K92.2 - Gastrointestinal hemorrhage, unspecified (2) Duodenal ulcer: Status: Acute Category: Medical Code(s): K26.9 - Duodenal ulcer, unspecified as acute or chronic, without hemorrhage or perforation (3) Drug abuse and dependence: Status: Acute Category: Medical Code(s): F19.20 - Other psychoactive substance dependence, uncomplicated (4) Anxiety: Status: Chronic Category: Medical Code(s): F41.9 - Anxiety disorder, unspecified (5) Alcohol use disorder: Status: Acute Category: Medical Code(s): F10.90 - Alcohol use, unspecified, uncomplicated Plan Brandon Dave is a 48-year-old male with a medical history significant for previous GI bleed, duodenal ulcer presents with 1 day onset of upper and lower GI bleed. He states he had coffee-ground emesis this morning around 5 AM, then had dark bowel movement around 9 AM. He notes epigastric tenderness for the past couple days. He states his girlfriend about a month ago and he had been depressed and proceeded to drink at least 5 fireball shots a day. He has also been using NSAIDs for back pain. He states he is taking his Protonix at home. Workup in the ED revealed WBC 13.3, hemoglobin 14.7, MCV 104.5, BUN 35. Gastroenterology was contacted by ED provider who agreed to evaluate patient once admitted. Case discussed with ED provider and decision was made to admit patient for upper and lower GI bleed. #Upper, lower GI bleed #History of duodenal ulcer #Leukocytosis ? No further episodes of bleeding. Hemodynamically stable. ? Initial hemoglobin 14.7, repeat 13.2. WBC 13.3. ? GI bleed likely secondary to exacerbation of duodenal ulcer from recent profuse alcohol drinking, NSAID use. ? IV Protonix 40 mg twice daily. ? Ceftriaxone daily given leukocytosis to prevent bacterial extravasation. ? LR at 100 mL/h. ? H/H scheduled every 8 hours. ? Telemetry monitoring. ? GI consulted, pending recommendations. ? Avoid NSAIDs. #Alcohol use disorder #Substance use disorder ? CIWA protocol. Ativan as needed. ? Folic acid, thiamine, multivitamins. ? Home Suboxone resumed. #Anxiety ? Resume home medications once reconciled. CODE STATUS: Full code Diet: Regular diet n.p.o. at midnight DVT prophylaxis: SCDs
[2024-03-13 20:15] LABS: Basophils % 0.3 % (0.1-2.0); Eosinophils # 0.1 K/mm3 (0.0-0.4); Eosinophils % 1.1 % (0.1-12.0); Hemoglobin 12.2 g/dL (14.1-18.0); Lymphocytes % 30.2 % (10-50); Mean Corpuscular HGB Conc 31.2 g/dL (31.8-35.4); Mean Corpuscular Hemoglobin 32.5 pg (27.0-31.2); Mean Corpuscular Volume 104.3 fl (80-94); Mean Platelet Volume 6.9 fl (7.4-10.4); Monocytes # 0.4 K/mm3 (0.1-1.0); Monocytes % 4.3 % (1.7-9.3); Neutrophils # 6.4 K/mm3 (1.8-7.8); Neutrophils % 64.1 % (37.0-80.0); Platelet Count 246 K/mm3 (142-424); Red Blood Count 3.74 M/mm3 (4.60-6.20); Red Cell Distribution Width 15.8 % (11.5-17.5); White Blood Count 9.9 K/mm3 (4.8-10.8)
[2024-03-13] MEDS: FOLIC ACID 1MG TABLET 1 MG PO (20:30)
[2024-03-13] MEDS: SODIUM CHLORIDE 0.9% 10ML VIAL 10 ML IV (20:30)
[2024-03-13] MEDS: THIAMINE 100MG TABLET 100 MG PO (20:30)
[2024-03-13 23:25] LABS: Hematocrit 37.2 % (42.0-52.0); Hemoglobin 11.3 g/dL (14.1-18.0)
[2024-03-14] VITALS (8 sets, daily range): BP systolic 114–160; BP diastolic 70–95; PULSE 57–71; RESP 16–18; TEMP 36.6–36.7; O2SAT 95–98; BMI 22.8
[2024-03-14] MEDS: LACTATED RINGERS 1000ML 1,000 ML 100 ML IV (03:33)
--- NOTE | 2024-03-14 05:05 | PC.NURSE ---
Mr Dave was admitted yesterday evening during the previous shift due to gastrointestinal bleeding. He reported to me upon assessment that his most recent bowel movement appearance was like coffee grounds. He reported having some distaste and discomfort due to his abnormal bowel movements. However, patient has not asked for any PRN medications this shift. Patient is alert and oriented x4. CIWA scores have been performed every 4 hours due to an admitted history of heavy alcohol consumption. Patient scored 1 at 20:00 last night, 0 at midnight, and 0 at 04:00 this shift. Ativan did not have to be given thus far. Patient has also remained NPO after midnight for a surgery consult expected for this morning. Patient has been ambulating independently and tolerates it well. Patient was noticed be quite fatigued at the beginning of the shift, and he voiced that he felt quite sleepy with a little anxiety. He has not had any further complaints, such as pain, weakness, or significant nausea (mild nausea was reported once early this shift). Patient was observed to have eyes closed, respirations even and unlabored on room air, and no apparent distress throughout the night. Hgb and Hct lab draws have shown to trend decreasing values throughout the shift. Vital signs have remained stable within patient's baseline this shift; slight bradycardia (58 to 59 bpm) was noticed after midnight. Patient received his scheduled medications per [facility] and currently has lactated ringers infusing at 100mL/hr. Patient is sitting up in bed at this time. No acute changes noted thus far. Call light within reach.
--- NOTE | 2024-03-14 06:59 | P.CONS_ITS ---
History of Present Illness *Admission Date: 03/13/24 *Reason for visit:: GI bleeding *History of present illness: Patient is a 48-year-old male from [place] with a prior history of drug abuse/dependence (on Suboxone), history of alcohol abuse/dependece, tobacco abuse/dependence, asthma/bronchitis, GERD, NSAID use with prior history of ulcer disease. He has had at least 2 or 3 prior admissions for upper GI bleeding secondary to ulcer disease. Most recently he had presented in November 2023 with symptoms of melena at which time he was found to have moderately severe diffuse gastritis, moderately severe duodenitis, but multiple duodenal ulcers in the second portion of the duodenum 1 of which appeared to be more inflamed with possible visible vessel with intervention undertaken. He ultimately was able to be discharged on medical therapy at which time his hemoglobin was 9.3. He did not follow up after his hospitalization. Also of note, patient had been admitted in August 2019 with findings of upper GI blood loss at which time upper endoscopy revealed a moderately large moderately deep gastric antral ulcer with duodenitis along with duodenal ulcer in the second portion of the duodenum at which time hemostatic measures were undertaken as well. Follow-up upper endoscopy in November 2019 revealed healed duodenal ulcers. He presented to the emergency department on 03/13/2024 with symptoms of coffee- ground emesis and maroon-colored stool. He has had some epigastric tenderness. Apparently he has had episodes of vomiting and some bloody stools for about 1 month. Due to the increased amount of blood in his stool he presented to the emergency department. He did undergo CT angiogram which revealed no evidence of any active GI extravasation. His hemoglobin upon presentation was 14.7. Most recent hemoglobin is 11.3. Patient states that he smokes daily and drinks daily. He takes 800 mg ibuprofen daily. He does state that he has been taking Protonix as prescribed. . [facility] Disclaimer: The information contained in this section may have been updated after the patient was seen, as this information can be updated by other users. Medical History Depression Anxiety Traumatic brain injury Surgical History History of foot surgery H/O lithotripsy History of appendectomy H/O right knee surgery H/O anterior cruciate ligament surgery Previous back surgery Family History Grandmother Cancer Diabetes Stroke Grandfather Cancer Mother Diabetes Hypertension Social History Smoking Status: Current every day smoker tobacco type: cigarettes packs per day: 1 alcohol intake: current alcohol intake frequency: a few times a week counseling provided: provider counseling substance use type: former substance user and prescription drug current occupational status: disabled Travel in the last 8 weeks: None household members: significant other housing: house current occupational exposures/hazards: No caffeine: No Meds Home Medications and Allergies Home Medications ?Medication ?Instructions ?Recorded ?Confirmed ?Type buprenorphine 8 mg-naloxone 2 mg 2 tab sublingual DAILY 08/17/22 03/13/24 History sublingual tablet acamprosate 333 mg tablet,delayed 333 mg PO TID 03/13/24 03/13/24 History release aripiprazole 5 mg tablet 5 mg PO DAILY 03/13/24 03/13/24 History buspirone 10 mg tablet 10 mg PO TIDP PRN Anxiety 03/13/24 03/13/24 History ibuprofen 800 mg tablet 800 mg PO QIDP PRN Mild Pain 03/13/24 03/13/24 History (Scale Score 1-4) mirtazapine 15 mg tablet 15 mg PO HS 03/13/24 03/13/24 History nicotine 21 mg/24 hr daily 1 patch transdermal DAILY 03/13/24 03/13/24 History transdermal patch pantoprazole 40 mg tablet,delayed 40 mg PO DAILY 03/13/24 03/13/24 History release propranolol 10 mg tablet 10 mg PO TID 03/13/24 03/13/24 History New Prescriptions to Start Prescriptions: Allergies Allergy/AdvReac Type Severity Reaction Status Date / Time aspirin [ASPIRIN] Allergy Unknown Verified 01/08/24 10:51 piperacillin [From Zosyn] Allergy Verified 01/08/24 10:51 tazobactam [From Zosyn] Allergy Verified 01/08/24 10:51 Exam (Inpt) Vital signs and Labs for Last 24 Hours: Temp Pulse Resp BP Pulse Ox O2 Del Method 97.9 F 58 L 16 114/77 96 Room Air 03/14/24 04:00 03/14/24 04:00 03/14/24 04:00 03/14/24 04:00 03/14/24 04:00 03/14/24 06:53 Laboratory Results - last 24 hr 03/13/24 12:10: WBC 13.3 H, RBC 4.48 L, Hgb 14.7, Hct 46.9, MCV 104.5 H, MCH 32.7 H, MCHC 31.3 L, RDW 16.0, Plt Count 301, MPV 7.8, Neut % (Auto) 71.0, Lymph % (Auto) 24.1, Humphreys % (Auto) 3.7, Eos % (Auto) 0.6, Baso % (Auto) 0.6, Neut # (Auto) 9.5 H, Lymph # (Auto) 3.2, Humphreys # (Auto) 0.5, Eos # (Auto) 0.1, Baso # (Auto) 0.1, PT 10.1, INR 0.89 L, Sodium 140, Potassium 3.7, Chloride 103, Carbon Dioxide 34 H, Anion Gap 6.7, BUN 35 H, Creatinine 0.60 L, Estimated Creat Clear 143, Estimated GFR 143, Est GFR ( Amer) 173, Glucose 87, Calcium 9.7, Total Bilirubin 1.0, AST 38, ALT 13, Alkaline Phosphatase 69, Total Protein 8.1 D, Albumin 4.7, Globulin 3.4 H, Albumin/Globulin Ratio 1.4, Lipase 57, HIV 1&2 Antibody Rapid Nonreactive, Blood Type O Positive, Antibody Screen Negative 03/13/24 15:24: Hgb 13.2 L D, Hct 41.6 L 03/13/24 19:54: WBC 9.9 D, RBC 3.74 L, Hgb 12.2 L, Hct 39.0 L, MCV 104.3 H, MCH 32.5 H, MCHC 31.2 L, RDW 15.8, Plt Count 246, MPV 6.9 L, Neut % (Auto) 64.1, Lymph % (Auto) 30.2, Humphreys % (Auto) 4.3, Eos % (Auto) 1.1, Baso % (Auto) 0.3, Neut # (Auto) 6.4, Lymph # (Auto) 3.0, Humphreys # (Auto) 0.4, Eos # (Auto) 0.1, Baso # (Auto) 0.0 03/13/24 23:11: Hgb 11.3 L, Hct 37.2 L I & O for Labs for Last 24 Hours: Intake & Output 03/11/24 03/12/24 03/13/24 03/14/24 11:59 11:59 11:59 11:59 Intake Total 734 / 734 Output Total 0 / 0 Balance 734 / 734 Weight 150 lb 151 lb 1.6 oz Constitutional: no acute distress Head: Present normocephalic Respiratory: Absent accessory muscle use Cardiac: Present Reg Rate and Rhythm GI: Present soft Results Labs 03/14/24 07:15 03/13/24 12:10 Labs: Laboratory Results - last 24 hr 03/13/24 12:10: WBC 13.3 H, RBC 4.48 L, Hgb 14.7, Hct 46.9, MCV 104.5 H, MCH 32.7 H, MCHC 31.3 L, RDW 16.0, Plt Count 301, MPV 7.8, Neut % (Auto) 71.0, Lymph % (Auto) 24.1, Humphreys % (Auto) 3.7, Eos % (Auto) 0.6, Baso % (Auto) 0.6, Neut # (Auto) 9.5 H, Lymph # (Auto) 3.2, Humphreys # (Auto) 0.5, Eos # (Auto) 0.1, Baso # (Auto) 0.1, PT 10.1, INR 0.89 L, Sodium 140, Potassium 3.7, Chloride 103, Carbon Dioxide 34 H, Anion Gap 6.7, BUN 35 H, Creatinine 0.60 L, Estimated Creat Clear 143, Estimated GFR 143, Est GFR ( Amer) 173, Glucose 87, Calcium 9.7, Total Bilirubin 1.0, AST 38, ALT 13, Alkaline Phosphatase 69, Total Protein 8.1 D, Albumin 4.7, Globulin 3.4 H, Albumin/Globulin Ratio 1.4, Lipase 57, HIV 1&2 Antibody Rapid Nonreactive, Blood Type O Positive, Antibody Screen Negative 03/13/24 15:24: Hgb 13.2 L D, Hct 41.6 L 03/13/24 19:54: WBC 9.9 D, RBC 3.74 L, Hgb 12.2 L, Hct 39.0 L, MCV 104.3 H, MCH 32.5 H, MCHC 31.2 L, RDW 15.8, Plt Count 246, MPV 6.9 L, Neut % (Auto) 64.1, Lymph % (Auto) 30.2, Humphreys % (Auto) 4.3, Eos % (Auto) 1.1, Baso % (Auto) 0.3, Neut # (Auto) 6.4, Lymph # (Auto) 3.0, Humphreys # (Auto) 0.4, Eos # (Auto) 0.1, Baso # (Auto) 0.0 03/13/24 23:11: Hgb 11.3 L, Hct 37.2 L Assessment and Plan *Assessment and plan (1) Gastrointestinal bleed: Status: Acute Qualifiers: GI bleed type/associated pathology: duodenal ulcer Qualified Code(s): K 26.4 - Chronic or unspecified duodenal ulcer with hemorrhage Category: Medical Code(s): K92.2 - Gastrointestinal hemorrhage, unspecified Plan Plan for EGD for diagnosis and possible intervention for symptoms of upper GI blood loss.
[2024-03-14 07:27] LABS: Hematocrit 37.9 % (42.0-52.0)
[2024-03-14] MEDS: THIAMINE 100MG TABLET 100 MG PO (08:45)
[2024-03-14] MEDS: BUPRENORPHINE/NALOXONE 8MG/2MG ODT 2 EACH SL (08:45)
[2024-03-14] MEDS: FOLIC ACID 1MG TABLET 1 MG PO (08:45)
[2024-03-14] MEDS: PANTOPRAZOLE 40MG VIAL 40 MG IV (08:45)
--- NOTE | 2024-03-14 09:05 | P.PNANES_ITS ---
[facility] Disclaimer: The information contained in this section may have been updated after the patient was seen, as this information can be updated by other users. Medical History Depression Anxiety Traumatic brain injury Surgical History History of foot surgery H/O lithotripsy History of appendectomy H/O right knee surgery H/O anterior cruciate ligament surgery Previous back surgery Family History Grandmother Cancer Diabetes Stroke Grandfather Cancer Mother Diabetes Hypertension Social History Smoking Status: Current every day smoker tobacco type: cigarettes packs per day: 1 alcohol intake: current alcohol intake frequency: a few times a week counseling provided: provider counseling substance use type: former substance user and prescription drug current occupational status: disabled Travel in the last 8 weeks: None household members: significant other housing: house current occupational exposures/hazards: No caffeine: No [facility] Anesthesia Checklist Patient Identification Patient Identification: Arm Band and Verbal (Name & ) Structural Data Admitted From: Inpatient Planned Operative Procedure/s: EGD Consent for Planned Operative Procedure(s) Verified: Yes Verified Documents: Surgical Consent and History and Physical NPO Status Verified Time NPO: 00:00 Chart Verification Results Verified: CBC Additional verifications Anesthesia Reactions: No Hx Blood Transfusions: No Blood Transfusion Reaction: No Airway Assessment Mallampati Score:: Class II C-Spine Mobility Assessed: Yes TMJ Mobility Assessed: Yes Dentition: Poor Dentition Neurological Assessment Level of Consciousness: Awake Hx Seizures: No Numbness or tingling in extremities: No Anesthesia Plan Anesthesia Risk discussed: Yes Anesthesia Plan: Verified ASA Class: II (E) Anesthesia Type: MAC
[2024-03-14] MEDS: EPINEPHrine 0.1 MG/ML 10ML SYRINGE (CRASH CART) 1 MG (09:40)
--- NOTE | 2024-03-14 09:43 | [facility].SCOPE ---
Procedure: Date: 03/14/24 Patient Date of :: 1975 Procedure Performed:: Esophagogastroduodenoscopy with injection of epinephrine for assurance of hemostasis . Indications:: Patient is a 48-year-old male from [place] with a prior history of drug abuse/dependence (on Suboxone), history of alcohol abuse/dependece, tobacco abuse/dependence, asthma/bronchitis, GERD, NSAID use with prior history of ulcer disease. He has had at least 2 or 3 prior admissions for upper GI bleeding secondary to ulcer disease. Most recently he had presented in November 2023 with symptoms of melena at which time he was found to have moderately severe diffuse gastritis, moderately severe duodenitis, but multiple duodenal ulcers in the second portion of the duodenum 1 of which appeared to be more inflamed with possible visible vessel with intervention undertaken. He ultimately was able to be discharged on medical therapy at which time his hemoglobin was 9.3. He did not follow up after his hospitalization. Also of note, patient had been admitted in August 2019 with findings of upper GI blood loss at which time upper endoscopy revealed a moderately large moderately deep gastric antral ulcer with duodenitis along with duodenal ulcer in the second portion of the duodenum at which time hemostatic measures were undertaken as well. Follow-up upper endoscopy in November 2019 revealed healed duodenal ulcers. He presented to the emergency department on 03/13/2024 with symptoms of coffee-ground emesis and maroon-colored stool. He has had some epigastric tenderness. Apparently he has had episodes of vomiting and some bloody stools for about 1 month. Due to the increased amount of blood in his stool he presented to the emergency department. He did undergo CT angiogram which revealed no evidence of any active GI extravasation. His hemoglobin upon presentation was 14.7. Most recent hemoglobin is 11.3. Patient states that he smokes daily and drinks daily. He takes 800 mg ibuprofen daily. He does state that he has been taking Protonix as prescribed. . Performing Provider:: Evan Nieves MD Referring Provider:: Tim Rey MD . Sedation:: MAC sedation . Procedure:: Patient history was obtained and appropriate physical examination was performed. Patient's medications and allergies were reviewed. Informed consent was obtained after explaining the benefits, alternatives, and risks of the procedure including, but not limited to, bleeding, perforation, missed lesions, and adverse reaction to anesthesia medications. Patient was transported to endoscopy procedure room. Patient was connected to monitoring devices. Throughout the procedure the patient's blood pressure, pulse, and oxygen saturations were monitored continuously. Patient identification and planned procedure were verified by the staff. Patient was positioned in lateral decubitus position. Olympus endoscope was inserted. Esophagus was cannulated. Endoscope was advanced. Overall esophagus appeared relatively unremarkable other than findings possibly suggestive of mild esophageal dysmotility. Gastroesophageal junction was encountered at 40 cm from the incisors. Stomach was cannulated and insufflated. Retroflexion revealed a small 2 cm sliding hiatal hernia. There was some diffuse moderate gastritis characterized by a erythema with mild induration and edema of the gastric mucosa without erosions. Pylorus was traversed. Within the duodenal bulb there was moderate duodenitis. In the post bulbar duodenum there was a moderate inflamed duodenal ulcer with red spot . No evidence of any active bleeding. There was exudate within the base with inflammation characterized by edema and induration surrounding. This measured about 1 cm. Endoscope was able to be advanced a generous distance into the distal duodenum which revealed some atrophic mucosa but otherwise unremarkable. Endoscope was withdrawn into the duodenal bulb and careful injection was performed circumferentially around the ulcer with a total of 8 cc of epinephrine injected. There was diffuse mucosal blanching. No complications noted. Stomach was desufflated and the endoscope was withdrawn. . Findings:: Possible mild esophageal dysmotility Gastroesophageal junction at 40 cm Tiny 2 cm sliding hiatal hernia Moderate diffuse nonerosive gastritis Moderate duodenitis within duodenal bulb 1 cm inflamed post bulbar duodenal ulcer without active bleeding but some stigmata of possible recent bleeding characterized by central red spot . Recommendations:: Continue high-dose proton pump inhibitors. May add Carafate and Cytotec. . Complications:: None immediately apparent Estimated blood obtained (mL): 1 Colonoscopy Component Colonoscopy Component Was a colonoscopy performed during today's procedure?: No
[2024-03-14] MEDS: ONDANSETRON 4MG/2ML VIAL 4 MG IV ×2 (10:11→12:14)
--- NOTE | 2024-03-14 10:24 | PC.NURSE ---
emesis times one and zofran given.
--- NOTE | 2024-03-14 10:42 | PC.NURSE ---
Pt. had called out to see the nurse and he was sleeping when i walked into the room.
[2024-03-14] MEDS: miSOPROStoL 200 MCG TABLET 400 MCG PO (12:14)
--- NOTE | 2024-03-14 12:24 | PC.NURSE ---
Pt. states he is done with the bp machine and wants it removed from his arm.
--- NOTE | 2024-03-14 12:41 | P.DS_ITS ---
General Admission date:: 03/13/24 HPI HPI HPI: Patient is a 48-year-old male from [place] with a prior history of drug abuse/dependence (on Suboxone), history of alcohol abuse/dependece, tobacco abuse/dependence, asthma/bronchitis, GERD, NSAID use with prior history of ulcer disease. He has had at least 2 or 3 prior admissions for upper GI bleeding secondary to ulcer disease. Most recently he had presented in November 2023 with symptoms of melena at which time he was found to have moderately severe diffuse gastritis, moderately severe duodenitis, but multiple duodenal ulcers in the second portion of the duodenum 1 of which appeared to be more inflamed with possible visible vessel with intervention undertaken. He ultimately was able to be discharged on medical therapy at which time his hemoglobin was 9.3. He did not follow up after his hospitalization. Also of note, patient had been admitted in August 2019 with findings of upper GI blood loss at which time upper endoscopy revealed a moderately large moderately deep gastric antral ulcer with duodenitis along with duodenal ulcer in the second portion of the duodenum at which time hemostatic measures were undertaken as well. Follow-up upper endoscopy in November 2019 revealed healed duodenal ulcers. He presented to the emergency department on 03/13/2024 with symptoms of coffee- ground emesis and maroon-colored stool. He has had some epigastric tenderness. Apparently he has had episodes of vomiting and some bloody stools for about 1 month. Due to the increased amount of blood in his stool he presented to the emergency department. He did undergo CT angiogram which revealed no evidence of any active GI extravasation. His hemoglobin upon presentation was 14.7. Most recent hemoglobin is 11.3. Patient states that he smokes daily and drinks daily. He takes 800 mg ibuprofen daily. He does state that he has been taking Protonix as prescribed. . Hospital Course Hospital Course Hospital Course: Brandon Dave is a 48-year-old male with a medical history significant for previous GI bleed, duodenal ulcer presents with 1 day onset of upper and lower GI bleed. He states he had coffee-ground emesis this morning around 5 AM, then had dark bowel movement around 9 AM. He notes epigastric tenderness for the past couple days. He states his girlfriend about a month ago and he had been depressed and proceeded to drink at least 5 fireball shots a day. He has also been using NSAIDs for back pain. He states he is taking his Protonix at home. Workup in the ED revealed WBC 13.3, hemoglobin 14.7, MCV 104.5, BUN 35. Gastroenterology was contacted by ED provider who agreed to evaluate patient once admitted. Case discussed with ED provider and decision was made to admit patient for upper and lower GI bleed. #Upper, lower GI bleed #History of duodenal ulcer ? No further episodes of bleeding. Hemodynamically stable. ? Initial hemoglobin 14.7, lowest 11.3 during hospital course but all cell lines dipped likely from hemodilution with IV and oral hydration. ? GI bleed likely secondary to exacerbation of duodenal ulcer from recent p rofuse alcohol drinking since his significant other , as well as NSAID use. ? Given IV Protonix 40 mg BID. - GI performed EGD with findings as below, but no active bleeding. - Patient continued to remain stable, tolerating PO intake.? - Discharged with Protonix and Carafate, advised to reduce alcohol and NSAID use. Will follow-up with PCP with 1 week. EGD findings: Possible mild esophageal dysmotility Gastroesophageal junction at 40 cm Tiny 2 cm sliding hiatal hernia Moderate diffuse nonerosive gastritis Moderate duodenitis within duodenal bulb 1 cm inflamed post bulbar duodenal ulcer without active bleeding but some stigmata of possible recent bleeding characterized by central red spot #Leukocytosis, resolved - Given Ceftriaxone to prevent bacterial extravasation. - However, resolved after IV and oral hydration. Likely from hemoconcentration. #Alcohol use disorder #Substance use disorder ? CIWA protocol. Ativan as needed but did not need. ? Folic acid, thiamine, multivitamins. ? Home Suboxone resumed. Exam Data for Last 24 hours Vital signs and Labs for Last 24 Hours: Temp Pulse Resp BP Pulse Ox O2 Del Method O2 Flow Rate 98 F 65 18 160/95 H 97 Room Air 5 03/14/24 10:45 03/14/24 10:45 03/14/24 10:45 03/14/24 10:45 03/14/24 10:45 03/14/24 11:58 03/14/24 09:22 Laboratory Results - last 24 hr 03/13/24 12:10: PT 10.1, INR 0.89 L, Carbon Dioxide 34 H, Anion Gap 6.7, BUN 35 H, Creatinine 0.60 L, Estimated Creat Clear 143, Estimated GFR 143, Est GFR ( Amer) 173, Glucose 87, Calcium 9.7, Total Bilirubin 1.0, AST 38, ALT 13, Alkaline Phosphatase 69, Total Protein 8.1 D, Globulin 3.4 H, Albumin/Globulin Ratio 1.4, Lipase 57, HIV 1&2 Antibody Rapid Nonreactive, Blood Type O Positive, Antibody Screen Negative 03/13/24 15:24: Hgb 13.2 L D, Hct 41.6 L 03/13/24 19:54: WBC 9.9 D, RBC 3.74 L, Hgb 12.2 L, Hct 39.0 L, MCV 104.3 H, MCH 32.5 H, MCHC 31.2 L, RDW 15.8, Plt Count 246, MPV 6.9 L, Neut % (Auto) 64.1, Lymph % (Auto) 30.2, Richardson % (Auto) 4.3, Eos % (Auto) 1.1, Baso % (Auto) 0.3, Neut # (Auto) 6.4, Lymph # (Auto) 3.0, Richardson # (Auto) 0.4, Eos # (Auto) 0.1, Baso # (Auto) 0.0 03/13/24 23:11: Hgb 11.3 L, Hct 37.2 L 03/14/24 07:15: Hgb 12.0 L, Hct 37.9 L I & O for Last 24 hours: Intake & Output 03/11/24 03/12/24 03/13/24 03/14/24 23:59 23:59 23:59 23:59 Intake Total 734 / 734 Output Total 0 / 0 Balance 734 / 734 Weight 68.039 kg 68.538 kg Microbiology Reports for the Last 24 Hours: Microbiology 03/13/24 12:10 Blood Blood Culture - Preliminary Constitutional Constitutional: no acute distress *Routine HEENT Exam Head: Present normocephalic Eye: Present EOMI and PERRL ENT: Present mucous membranes moist *Routine Neck Exam Neck: Present supple; Absent lymphadenopathy *Routine Respiratory Exam Respiratory: Present CTA bilaterally *Routine Cardiovascular Exam Cardiovascular: Present RRR *Routine Abdominal Exam Abdominal: Present soft and normoactive bowel sounds; Absent tenderness *Routine Extremities Exam Extremities: Absent cyanosis, clubbing or edema *Routine Skin Exam Skin: Present warm; Absent rash *Routine Neurological Exam Neurological: Present alert and oriented X3 Results Data Completed and Pending Labs on day of discharge: Labs from last 24 hours 03/14/24 03/13/24 03/13/24 07:15 23:11 19:54 WBC 9.9 D RBC 3.74 L Hgb 12.0 L 11.3 L 12.2 L Hct 37.9 L 37.2 L 39.0 L MCV 104.3 H MCH 32.5 H MCHC 31.2 L RDW 15.8 Plt Count 246 MPV 6.9 L Neut % (Auto) 64.1 Lymph % (Auto) 30.2 Richardson % (Auto) 4.3 Eos % (Auto) 1.1 Baso % (Auto) 0.3 Neut # (Auto) 6.4 Lymph # (Auto) 3.0 Richardson # (Auto) 0.4 Eos # (Auto) 0.1 Baso # (Auto) 0.0 PT INR Carbon Dioxide Anion Gap BUN Creatinine Estimated Creat Clear Estimated GFR Est GFR ( Amer) Glucose Calcium Total Bilirubin AST ALT Alkaline Phosphatase Total Protein Globulin Albumin/Globulin Ratio Lipase HIV 1&2 Antibody Rapid Blood Type Antibody Screen 03/13/24 03/13/24 15:24 12:10 WBC RBC Hgb 13.2 L D Hct 41.6 L MCV MCH MCHC RDW Plt Count MPV Neut % (Auto) Lymph % (Auto) Richardson % (Auto) Eos % (Auto) Baso % (Auto) Neut # (Auto) Lymph # (Auto) Richardson # (Auto) Eos # (Auto) Baso # (Auto) PT 10.1 INR 0.89 L Carbon Dioxide 34 H Anion Gap 6.7 BUN 35 H Creatinine 0.60 L Estimated Creat Clear 143 Estimated GFR 143 Est GFR ( Amer) 173 Glucose 87 Calcium 9.7 Total Bilirubin 1.0 AST 38 ALT 13 Alkaline Phosphatase 69 Total Protein 8.1 D Globulin 3.4 H Albumin/Globulin Ratio 1.4 Lipase 57 HIV 1&2 Antibody Rapid Nonreactive Blood Type O Positive Antibody Screen Negative Preliminary micro results at discharge 03/13/24 12:10 Blood Culture - Preliminary Blood DS: Diagnosis Discharge Diagnosis (1) Gastrointestinal bleed: Status: Resolved Code(s): K92.2 - Gastrointestinal hemorrhage, unspecified Qualifiers: GI bleed type/associated pathology: duodenal ulcer Qualified Code(s): K26.4 - Chronic or unspecified duodenal ulcer with hemorrhage Meds Home Medications and Allergies Home Medications ?Medication ?Instructions ?Recorded ?Confirmed ?Type buprenorphine 8 mg-naloxone 2 mg 2 tab sublingual DAILY 08/17/22 03/13/24 History sublingual tablet acamprosate 333 mg tablet,delayed 333 mg PO TID 03/13/24 03/13/24 History release aripiprazole 5 mg tablet 5 mg PO DAILY 03/13/24 03/13/24 History buspirone 10 mg tablet 10 mg PO TIDP PRN Anxiety 03/13/24 03/13/24 History mirtazapine 15 mg tablet 15 mg PO HS 03/13/24 03/13/24 History nicotine 21 mg/24 hr daily 1 patch transdermal DAILY 03/13/24 03/13/24 History transdermal patch propranolol 10 mg tablet 10 mg PO TID 03/13/24 03/13/24 History ondansetron 4 mg disintegrating 4 mg PO Q8H PRN nausea and 03/14/24 Rx tablet vomiting #14 tabs pantoprazole 40 mg tablet,delayed 40 mg PO BID 30 days #60 tabs 03/14/24 Rx release sucralfate 1 gram tablet (Carafate) 1 g PO BID PRN abdominal pain #60 03/14/24 Rx tabs New Prescriptions to Start Prescriptions: [email or web address] Tirado pantoprazole Michael Bernstein sucralfate [Carafate] Facundo Silver Allergies Allergy/AdvReac Type Severity Reaction Status Date / Time aspirin [ASPIRIN] Allergy Unknown Verified 01/08/24 10:51 piperacillin [From Zosyn] Allergy Verified 01/08/24 10:51 tazobactam [From Zosyn] Allergy Verified 01/08/24 10:51 Discharge Plan Disposition Patient Disposition: Home, Self-Care Condition: Fair Follow up Plan Follow up with: Evan Nieves MD [Staff Physician] - 03/25/24 9:30 am Prescriptions/Medication Reconciliation: New sucralfate [Carafate] 1 gram tablet 1 g PO BID PRN (Reason: abdominal pain) Qty: 60 1RF Rx Instructions: Do not take within 1 hour of Protonix. ondansetron 4 mg tablet,disintegrating 4 mg PO Q8H PRN (Reason: nausea and vomiting) Qty: 14 0RF Continued buprenorphine-naloxone 8-2 mg tablet, sublingual 2 tab sublingual DAILY propranolol 10 mg tablet 10 mg PO TID mirtazapine 15 mg tablet 15 mg PO HS aripiprazole 5 mg tablet 5 mg PO DAILY acamprosate 333 mg tablet,delayed release (DR/EC) 333 mg PO TID Patient Comments: Take 1 tablet by mouth three times a day buspirone 10 mg tablet 10 mg PO TIDP PRN (Reason: Anxiety) nicotine 21 mg/24 hr Patch 24 Hour 1 patch TRANSDERMAL DAILY Changed pantoprazole 40 mg tablet,delayed release (DR/EC) 40 mg PO BID 30 Days Qty: 60 1RF Rx Instructions: Take on empty stomach. Discontinued ibuprofen 800 mg tablet 800 mg PO QIDP PRN (Reason: Mild Pain (Scale Score 1-4)) Patient Comments: Take 1 tablet by mouth four times a day as needed for pain Problem Reconciliation Problems Reviewed?: Yes Patient Discharge Instructions ACTIVITY: Continue current activity DIET: regular diet Patient Instructions: DI for Gastrointestinal Bleeding Print Language: Sammarinese Providers Primary Care Provider: Tim Rey Admit Provider: Facundo Silver Attending Provider: Facundo Silver
[2024-03-14] MEDS: SUCRALFATE 1GM TABLET 1 GM PO (12:53)
--- NOTE | 2024-03-17 10:56 | PC.NURSE ---
forwarded blood culture results to Hospitalist work-group
--- NOTE | 2024-03-18 13:48 | CARE MANAGER ---
Attempted to contact patient x2 related to hospital discharge. No VM option. RERE Prescott
== END 2024-03-14 13:15 | disposition home or self-care (01) ==
LOC: ER 13:23 → 2ND 15:35
PROVIDERS: Surgery; Admitting Provider Student in an Organized Health Care Education/Training Program; Emergency Provider Emergency Medicine; PCP Family Medicine; Visit Provider Student in an Organized Health Care Education/Training Program
PROC: 0DJ08ZZ Inspection of Upper Intestinal Tract, Via Natural or Artificial Opening Endoscopic (ICD-10-PCS; CPT 43235; principal; 2024-03-14 09:30)
DX: K26.4 Chronic or unspecified duodenal ulcer with hemorrhage (principal); F19.20 Other psychoactive substance dependence, uncomplicated; F41.9 Anxiety disorder, unspecified; F10.90 Alcohol use, unspecified, uncomplicated; D72.829 Elevated white blood cell count, unspecified; J45.909 Unspecified asthma, uncomplicated; F17.210 Nicotine dependence, cigarettes, uncomplicated; K21.9 Gastro-esophageal reflux disease without esophagitis; K44.9 Diaphragmatic hernia without obstruction or gangrene; K29.70 Gastritis, unspecified, without bleeding; K29.80 Duodenitis without bleeding
CPT/HCPCS: 43255; 36415; 74174; 80053; 83690; 85014; 85018; 85025; 85610; 86850; 87040; 87077; 87186; 87389; 99285; G0378; J0574; J0696; J2405; J7120; Q9967

== ENCOUNTER 2024-04-09 12:34 | Inpatient (IN) | payer MEDICARE, MEDICAID, SELFPAY ==
[2024-04-09] VITALS (15 sets, daily range): BP systolic 99–124; BP diastolic 57–71; PULSE 85–119; RESP 16–19; TEMP 36.7–39.1; O2SAT 92–99; BMI 22.0; BMI 21.4
--- OUTSIDE RECORDS SUMMARY | 2024-04-09 12:53 | XMS_ITS ---
Author Organization Unknown ALLERGIES AND ADVERSE REACTIONS No information ASSESSMENT No information CHIEF COMPLAINT No information MEDICATIONS No information OBJECTIVE DATA No information PHYSICAL EXAMINATION No information TREATMENT PLAN Planned Care Start Date Provider Encounter for Check-up [id number] [facility] PROBLEMS No information RESULTS No information REVIEW OF SYSTEMS No information SUBJECTIVE DATA No information VITAL SIGNS No information
[2024-04-09 13:00] LABS: Basophils % 0.2 % (0.1-2.0); Eosinophils % 0.1 % (0.1-12.0); Hemoglobin 14.1 g/dL (14.1-18.0); Lymphocytes # 0.6 K/mm3 (0.7-4.5); Lymphocytes % 3.9 % (10-50); Mean Corpuscular HGB Conc 31.3 g/dL (31.8-35.4); Mean Corpuscular Hemoglobin 32.3 pg (27.0-31.2); Mean Corpuscular Volume 103.1 fl (80-94); Mean Platelet Volume 8.1 fl (7.4-10.4); Monocytes # 0.4 K/mm3 (0.1-1.0); Monocytes % 2.5 % (1.7-9.3); Neutrophils # 14.9 K/mm3 (1.8-7.8); Neutrophils % 93.3 % (37.0-80.0); Platelet Count 155 K/mm3 (142-424); Red Blood Count 4.37 M/mm3 (4.60-6.20); Red Cell Distribution Width 15.7 % (11.5-17.5); White Blood Count 15.9 K/mm3 (4.8-10.8)
[2024-04-09 13:07] LABS: MANUAL DIFFERENTIAL MANUAL DIFFERENTIAL (MANUAL DIFF)
[2024-04-09 13:09] LABS: Albumin Level 3.7 g/dl (3.5-5.0); Chloride 92 mmol/L (98-107); Sodium 134 mmol/L (136-145)
--- NOTE | 2024-04-09 13:10 | [facility].EDGENADL ---
Discharge Plan Disposition Patient Disposition: Admitted Prescriptions Prescriptions: No Action buprenorphine-naloxone 8-2 mg tablet, sublingual 2 tab sublingual DAILY propranolol 10 mg tablet 10 mg PO TID mirtazapine 15 mg tablet 15 mg PO HS aripiprazole 5 mg tablet 5 mg PO DAILY acamprosate 333 mg tablet,delayed release (DR/EC) 333 mg PO TID Patient Comments: Take 1 tablet by mouth three times a day buspirone 10 mg tablet 10 mg PO TIDP PRN (Reason: Anxiety) nicotine 21 mg/24 hr Patch 24 Hour 1 patch TRANSDERMAL DAILY sucralfate [Carafate] 1 gram tablet 1 g PO BID PRN (Reason: abdominal pain) Qty: 60 1RF Rx Instructions: Do not take within 1 hour of Protonix. ondansetron 4 mg tablet,disintegrating 4 mg PO Q8H PRN (Reason: nausea and vomiting) Qty: 14 0RF pantoprazole 40 mg tablet,delayed release (DR/EC) 40 mg PO BID 30 Days Qty: 60 1RF Rx Instructions: Take on empty stomach. Referrals Follow up/Referrals: Tim Rey MD [Primary Care Provider] - See instructions Clinical Impressions Clinical Impression: Sepsis due to pneumonia, Hematemesis, Shortness of breath, Alcohol abuse, Hypokalemia Instructions Patient Instructions: DI for Acute Abdominal Pain Print Language Print Language: [place] Discharge ED Provider: Monica Oro General Adult HPI <Nitesh Chao MD - Last Filed: 04/09/24 14:50> General Chief complaint: Abdominal Pain Stated complaint: Abdominal Pain Time Seen by Provider: 04/09/24 12:40 Mode of Arrival: EMS Source of Information: Patient and EMS Limitations: No Limitations Description of Symptoms (Recalled from ER Triage Doc. by RN): pt presents to ED with c/o productive coough, nausea, vomitting, abdominal pain. symptoms began sunday History of Present Illness HPI narrative: Please note that above description of symptoms, in this electronic medical record under categorization of recalled from ER triage doctor by RN are reflective of an initial nursing assessment, however, is not reflective of my full history and physical exam that was personally taken and clarified. Consequentially, this preceding description of symptoms, which may include the patient's categorized chief complaint in the EMR, do not reflect my personal clinical impression, and the ultimate description of history of present illness and patient stated complaints should be deferred to this section of the note. Unless stated otherwise or congruent with this section of the note, additional signs, symptoms, or incongruence should be interpreted as inaccurate with my clinical impression. Related Data Home Medications ?Medication ?Instructions ?Recorded ?Confirmed buprenorphine 8 mg-naloxone 2 mg 2 tab sublingual DAILY 08/17/22 03/13/24 sublingual tablet acamprosate 333 mg tablet,delayed 333 mg PO TID 03/13/24 03/13/24 release aripiprazole 5 mg tablet 5 mg PO DAILY 03/13/24 03/13/24 buspirone 10 mg tablet 10 mg PO TIDP PRN Anxiety 03/13/24 03/13/24 mirtazapine 15 mg tablet 15 mg PO HS 03/13/24 03/13/24 nicotine 21 mg/24 hr daily 1 patch transdermal DAILY 03/13/24 03/13/24 transdermal patch propranolol 10 mg tablet 10 mg PO TID 03/13/24 03/13/24 Previous Rx's ?Medication ?Instructions ?Recorded ondansetron 4 mg disintegrating 4 mg PO Q8H PRN nausea and 03/14/24 tablet vomiting #14 tabs pantoprazole 40 mg tablet,delayed 40 mg PO BID 30 days #60 tabs 03/14/24 release sucralfate 1 gram tablet (Carafate) 1 g PO BID PRN abdominal pain #60 03/14/24 tabs Allergies Allergy/AdvReac Type Severity Reaction Status Date / Time aspirin [ASPIRIN] Allergy Unknown Verified 01/08/24 10:51 piperacillin [From Zosyn] Allergy Verified 01/08/24 10:51 tazobactam [From Zosyn] Allergy Verified 01/08/24 10:51 PFSH <Nitesh Chao MD - Last Filed: 04/09/24 14:50> [facility] Disclaimer: The information contained in this section may have been updated after the patient was seen, as this information can be updated by other users. Medical History Depression Anxiety Traumatic brain injury Surgical History History of foot surgery H/O lithotripsy History of appendectomy H/O right knee surgery H/O anterior cruciate ligament surgery Previous back surgery Family History Grandmother Cancer Diabetes Stroke Grandfather Cancer Mother Diabetes Hypertension Social History Smoking Status: Current every day smoker tobacco type: cigarettes packs per day: 1 alcohol intake: current alcohol intake frequency: a few times a week counseling provided: provider counseling substance use type: former substance user and prescription drug current occupational status: disabled Travel in the last 8 weeks: None household members: significant other housing: house current occupational exposures/hazards: No caffeine: No Other Medical History Have you received the Flu Vaccine for this season: No Have you received the Pneumonia Vaccine: No <Nitesh Chao MD - Last Filed: 04/09/24 14:50> ROS Obtained: Yes All systems reviewed & no additional complaints except as documented Physical Exam <Nitesh Chao MD - Last Filed: 04/09/24 14:50> General General appearance: alert and anxious Head Head exam: atraumatic and normocephalic Eye Eye exam: Present normal appearance, PERRL and EOMI Neck Neck exam: Present normal inspection, full ROM and trachea midline Respiratory Respiratory exam: Absent respiratory distress, wheezes, stridor, accessory muscle use or prolonged expiratory phase Cardiovascular Cardiovascular exam: Present normal rhythm, tachycardia and other (Pulses equal symmetric in upper and lower extremities) Abdominal Exam Abdominal exam: Present soft and tenderness; Absent distention, guarding, rebound, rigidity or pulsatile mass Abdominal tenderness: Present diffuse Extremities Exam Extremities exam: Absent edema Neurological Exam Neurological exam: Present alert, oriented X3 and CN II-XII intact; Absent motor sensory deficit Skin Skin exam: Present warm and dry; Absent diaphoresis or erythema Medical Decision Making <Nitesh Chao MD - Last Filed: 04/09/24 14:50> Medical Records Medical records reviewed: Yes I reviewed the patient's medical records. Screening: Per USPSTF and CDC recommendations, given the prevalence of disease in our region, it is our hospital?s policy to screen for HIV and viral Hepatitis for all patients aged 18 and over and those with ongoing risk factors. Dejan Inquiry Pt receiving controlled substance: No Dejan was queried for this patient: No Vital Signs: 04/09/24 12:34 04/09/24 12:37 04/09/24 12:52 Temperature 99.6 F Temperature Source Oral Pulse Rate 114 H 98 H Pulse Rate [Left Radial] 119 H Respiratory Rate 19 Blood Pressure 118/71 117/70 Blood Pressure [Right Arm] 118/71 Blood Pressure Mean Blood Pressure Mean [Right Arm] 86 02 Sat by Pulse Oximetry 99 96 94 L Oxygen Delivery Method Room Air 04/09/24 13:00 04/09/24 13:45 04/09/24 14:00 Temperature Temperature Source Pulse Rate 105 H 104 H 97 H Pulse Rate [Left Radial] Respiratory Rate Blood Pressure 121/64 121/64 116/70 Blood Pressure [Right Arm] Blood Pressure Mean 78 Blood Pressure Mean [Right Arm] 02 Sat by Pulse Oximetry 97 94 L 94 L Oxygen Delivery Method Room Air Room Air Room Air 04/09/24 14:30 04/09/24 15:00 04/09/24 15:30 Temperature Temperature Source Pulse Rate 100 H 92 H 91 H Pulse Rate [Left Radial] Respiratory Rate Blood Pressure 124/68 105/64 L 107/67 L Blood Pressure [Right Arm] Blood Pressure Mean 88 77 78 Blood Pressure Mean [Right Arm] 02 Sat by Pulse Oximetry 95 94 L 94 L Oxygen Delivery Method Room Air Room Air Room Air 04/09/24 16:00 Temperature Temperature Source Pulse Rate 92 H Pulse Rate [Left Radial] Respiratory Rate Blood Pressure 99/59 L Blood Pressure [Right Arm] Blood Pressure Mean Blood Pressure Mean [Right Arm] 02 Sat by Pulse Oximetry 97 Oxygen Delivery Method Lab Data Lab Results 04/09/24 12:45: WBC 15.9 H, RBC 4.37 L, Hgb 14.1, Hct 45.0, MCV 103.1 H, MCH 32.3 H, MCHC 31.3 L, RDW 15.7, Plt Count 155, MPV 8.1, Neut % (Auto) 93.3 H, Lymph % (Auto) 3.9 L, [place] % (Auto) 2.5, Eos % (Auto) 0.1, Baso % (Auto) 0.2, Neut # (Auto) 14.9 H, Lymph # (Auto) 0.6 L, [place] # (Auto) 0.4, Eos # (Auto) 0.0, Baso # (Auto) 0.0, Total Counted 100, Neutrophils % (Manual) 91 H, Lymphocytes % (Manual) 7 L, Monocytes % (Manual) 2, Platelet Estimate Normal, RBC Morphology Not Reportable, Macrocytosis 1+, PT 10.0 L, INR 0.88 L, APTT 34.1 H, Sodium 134 L, Potassium 3.0 L, Chloride 92 L, Carbon Dioxide 36 H, Anion Gap 9.0, BUN 41 H, Creatinine 1.20, Estimated Creat Clear 69, Estimated GFR 64, Est GFR ( Amer) 78, Glucose 140 H, Lactate 2.9 H, Calcium 8.4, Total Bilirubin 0.7, AST 73 H, ALT 24, Alkaline Phosphatase 73, Total Protein 6.9, Albumin 3.7, Globulin 3.2, Albumin/Globulin Ratio 1.2, Lipase 108, HIV 1&2 Antibody Rapid Nonreactive 04/09/24 14:26: Urine Color Yellow, Urine Appearance Clear, Urine pH 7.5, Ur Specific [place] 1.015, Urine Protein 2+ A, Urine Glucose (UA) Negative, Urine Ketones Negative, Urine Blood 2+ A, Urine Nitrate Negative, Urine Bilirubin Negative, Urine Urobilinogen 4.0, Ur Leukocyte Esterase Negative, Urine RBC None, Urine WBC None, Ur Squamous Epith Cells Occasional, Urine Bacteria Trace, Urine Opiates Screen Negative, Urine Methadone Screen Negative, Ur Barbituates Screen Negative, Ur Phencyclidine Scrn Negative, Ur Amphetamines Screen Negative, U Benzodiazepines Scrn Negative, Urine Cocaine Screen Negative, U Marijuana (THC) Screen Negative 04/09/24 12:45 04/09/24 12:45 Orders (Tests/Meds): ED MEDICATIONS Generic Name Dose Route Start Last Admin Trade Name Freq PRN Reason Stop Dose Admin Ceftriaxone Sodium 2 gm/ 100 mls @ 200 mls/hr 04/09/24 16:15 04/09/24 16:21 Sodium Chloride IV 04/19/24 16:14 200 mls/hr Q24H JOSE Administration Azithromycin 500 mg/ Sodium 250 mls @ 250 mls/hr 04/09/24 16:13 Chloride IV 04/09/24 16:14 ONCE ONE Sodium Chloride 8 ml 04/09/24 12:47 Sodium Chloride 0.9% 10ml Vial IV 05/09/24 12:46 NEEDED PRN dilute pepcid Sodium Chloride 10 ml 04/09/24 12:47 Sodium Chloride 0.9% 10ml Vial IV 05/09/24 12:46 NEEDED PRN dilute protonix Discontinued Medications Generic Name Dose Route Start Last Admin Trade Name Freq PRN Reason Stop Dose Admin Al Hydrox/Mg Hydrox/Simethicone 30 ml 04/09/24 12:47 04/09/24 13:13 Aluminum/Magnesium/Simethicone 30ml Udc PO 04/09/24 12:48 30 ml ONCE ONE Administration Diazepam 5 mg 04/09/24 13:26 04/09/24 13:27 Diazepam 10mg/2ml Syringe IV 04/09/24 13:27 5 mg ONCE ONE Administration Famotidine 20 mg 04/09/24 12:47 04/09/24 13:13 Famotidine 20mg/2ml Vial IV 04/09/24 12:48 20 mg ONCE ONE Administration Lactated Ringer's 1,000 mls @ 999 mls/hr 04/09/24 12:47 04/09/24 13:13 Lactated Ringer's 1000 Ml Bag IV 04/09/24 13:47 999 mls/hr .Q1H1M ONE Administration Magnesium Sulfate 2 gm in 50 mls @ 50 mls/hr 04/09/24 12:47 04/09/24 13:13 Magnesium Sulfate 2gm/50ml Premix IV 04/09/24 13:46 50 mls/hr ONCE ONE Administration Potassium Chloride/Water 100 mls @ 100 mls/hr 04/09/24 13:24 04/09/24 13:44 Potassium Chloride 10meq/100ml Ivpb IV 04/09/24 14:23 100 mls/hr ONCE ONE Administration Iopamidol 80 ml 04/09/24 13:39 04/09/24 13:40 Iopamidol-370 (76%);100ml Bottle IV 04/09/24 13:40 80 ml ONCE ONE Administration Ondansetron HCl 4 mg 04/09/24 12:47 04/09/24 13:13 Ondansetron 4mg/2ml Vial IV 04/09/24 12:48 4 mg ONCE ONE Administration Pantoprazole Sodium 40 mg 04/09/24 12:47 04/09/24 13:13 Pantoprazole 40mg Vial IV 04/09/24 12:48 40 mg ONCE ONE Administration Potassium Chloride 60 meq 04/09/24 13:24 04/09/24 13:44 Potassium Chloride 20meq Tab PO 04/09/24 13:25 60 meq ONCE ONE Administration Sodium Chloride 10 ml 04/09/24 13:39 04/09/24 13:40 Sodium Chloride 0.9% 10ml Syr (Rad Only) IV 04/09/24 13:40 10 ml ONCE ONE Administration Sodium Chloride 50 ml 04/09/24 13:39 04/09/24 13:40 0.9 % Sodium Chloride 50 Ml Vial IV 04/09/24 13:40 50 ml ONCE ONE Administration ORDERS Category Date Time Status CT angio abdomen pelvis Stat Cat Scan 04/09/24 13:18 Completed CBC w/Auto Diff [Complete Blood Count Auto Diff] Stat Lab 04/09/24 12:45 Completed CK [Creatine Kinase] Stat Lab 04/09/24 16:19 Ordered CMP [Comprehensive Metabolic Panel] Stat Lab 04/09/24 12:45 Completed HIV (1&2) Antibody Rapid Stat Lab 04/09/24 12:45 Completed Hep C Ab with Reflex to RNA Stat Lab 04/09/24 12:45 Received Lactic Acid Stat Lab 04/09/24 12:45 Completed Lipase Stat Lab 04/09/24 12:45 Completed PT INR [Prothrombin Time INR] Stat Lab 04/09/24 12:45 Completed PTT [Activated Partial Thrombo Time] Stat Lab 04/09/24 12:45 Completed UA [Urinalysis and Microscopic] Stat Lab 04/09/24 14:26 Completed UDS [Drug Screen,Urine] Stat Lab 04/09/24 14:26 Completed Blood Culture Stat Micro 04/09/24 12:47 Received Medical Decision Narrative: 48-year-old male history of hypertension, hyperlipidemia, tobacco use, psychiatric comorbidities, alcohol use disorder, gastritis/PUD, substance abuse disorder on daily Suboxone, appendectomy presenting with vomiting. Patient states that he has been vomiting for almost a week at this point. Intermittently having coffee-ground emesis and dark red blood. Still passing gas, last bowel movement was yesterday, but was constipated because he has not been able to tolerate much p.o. intake. Having crampy, severe epigastric and suprapubic abdominal pain that does not radiate. Associated with fevers. No urinary symptoms, blood in the stool, abdominal skin changes, or any other concern. Has not had alcohol in over a week since all of this started. Has been taking his Suboxone. History was obtained via conversation with patient. On arrival, patient hemodynamically stable, alert, oriented x4, appropriate, GCS 15, moving all extremities spontaneously, pupils equal and reactive to light. Full physical exam performed and significant for chronically ill-appearing male who is in mild distress secondary to pain and vomiting. Actively retching. Abdomen is soft, nondistended, but diffusely tender without peritonitis. No overlying skin changes. No flank tenderness. He is tachycardic and normotensive. Differential includes PUD, gastritis, enteritis, gastroenteritis, pancreatitis, SBO, colitis, diverticulitis, nephrolithiasis, UTI, cholecystitis, choledocholithiasis, appendicitis, torsion, hepatitis, aortic pathology, mesenteric ischemia among others. Patient placed on continuous cardiac monitoring and continuous pulse ox with initial blood pressure 117/70, heart rate 98, saturation 94% on room air. Patient was given Pepcid, Protonix, Zofran, IV fluids, Maalox. On reevaluation, patient still vomiting. 5 mg IV Valium given which had significant improvement. Independent interpretation of workup demonstrates leukocytosis with neutrophilia. Nonactionable coagulation factors. Patient's chemistry with hyponatremia, hypokalemia, hypochloremia. Patient given fluids, p.o. and IV potassium for this. Lipase negative. CT angiogram of the abdomen pelvis was independently interpreted and without perforation, obstruction, or obvious source of patient's pain and discomfort. Valium has Patient's symptoms at bay for over an hour. Still awaiting radiology read at time of handoff to oncoming physician. [employer] disclaimer Much of this encounter note is an electronic environmental protection economist spoken language to printed text. Electronic environmental protection economist of the spoken language may permit errors. Although I have reviewed the note, some errors may still exist. <Monica Oro, DO - Last Filed: 04/09/24 16:34> Vital Signs: 04/09/24 12:34 04/09/24 12:37 04/09/24 12:52 Temperature 99.6 F Temperature Source Oral Pulse Rate 114 H 98 H Pulse Rate [Left Radial] 119 H Respiratory Rate 19 Blood Pressure 118/71 117/70 Blood Pressure [Right Arm] 118/71 Blood Pressure Mean Blood Pressure Mean [Right Arm] 86 02 Sat by Pulse Oximetry 99 96 94 L Oxygen Delivery Method Room Air 04/09/24 13:00 04/09/24 13:45 04/09/24 14:00 Temperature Temperature Source Pulse Rate 105 H 104 H 97 H Pulse Rate [Left Radial] Respiratory Rate Blood Pressure 121/64 121/64 116/70 Blood Pressure [Right Arm] Blood Pressure Mean 78 Blood Pressure Mean [Right Arm] 02 Sat by Pulse Oximetry 97 94 L 94 L Oxygen Delivery Method Room Air Room Air Room Air 04/09/24 14:30 04/09/24 15:00 04/09/24 15:30 Temperature Temperature Source Pulse Rate 100 H 92 H 91 H Pulse Rate [Left Radial] Respiratory Rate Blood Pressure 124/68 105/64 L 107/67 L Blood Pressure [Right Arm] Blood Pressure Mean 88 77 78 Blood Pressure Mean [Right Arm] 02 Sat by Pulse Oximetry 95 94 L 94 L Oxygen Delivery Method Room Air Room Air Room Air 04/09/24 16:00 Temperature Temperature Source Pulse Rate 92 H Pulse Rate [Left Radial] Respiratory Rate Blood Pressure 99/59 L Blood Pressure [Right Arm] Blood Pressure Mean Blood Pressure Mean [Right Arm] 02 Sat by Pulse Oximetry 97 Oxygen Delivery Method Lab Data Lab Results 04/09/24 12:45: WBC 15.9 H, RBC 4.37 L, Hgb 14.1, Hct 45.0, MCV 103.1 H, MCH 32.3 H, MCHC 31.3 L, RDW 15.7, Plt Count 155, MPV 8.1, Neut % (Auto) 93.3 H, Lymph % (Auto) 3.9 L, [place] % (Auto) 2.5, Eos % (Auto) 0.1, Baso % (Auto) 0.2, Neut # (Auto) 14.9 H, Lymph # (Auto) 0.6 L, [place] # (Auto) 0.4, Eos # (Auto) 0.0, Baso # (Auto) 0.0, Total Counted 100, Neutrophils % (Manual) 91 H, Lymphocytes % (Manual) 7 L, Monocytes % (Manual) 2, Platelet Estimate Normal, RBC Morphology Not Reportable, Macrocytosis 1+, PT 10.0 L, INR 0.88 L, APTT 34.1 H, Sodium 134 L, Potassium 3.0 L, Chloride 92 L, Carbon Dioxide 36 H, Anion Gap 9.0, BUN 41 H, Creatinine 1.20, Estimated Creat Clear 69, Estimated GFR 64, Est GFR ( Amer) 78, Glucose 140 H, Lactate 2.9 H, Calcium 8.4, Total Bilirubin 0.7, AST 73 H, ALT 24, Alkaline Phosphatase 73, Total Protein 6.9, Albumin 3.7, Globulin 3.2, Albumin/Globulin Ratio 1.2, Lipase 108, HIV 1&2 Antibody Rapid Nonreactive 04/09/24 14:26: Urine Color Yellow, Urine Appearance Clear, Urine pH 7.5, Ur Specific [place] 1.015, Urine Protein 2+ A, Urine Glucose (UA) Negative, Urine Ketones Negative, Urine Blood 2+ A, Urine Nitrate Negative, Urine Bilirubin Negative, Urine Urobilinogen 4.0, Ur Leukocyte Esterase Negative, Urine RBC None, Urine WBC None, Ur Squamous Epith Cells Occasional, Urine Bacteria Trace, Urine Opiates Screen Negative, Urine Methadone Screen Negative, Ur Barbituates Screen Negative, Ur Phencyclidine Scrn Negative, Ur Amphetamines Screen Negative, U Benzodiazepines Scrn Negative, Urine Cocaine Screen Negative, U Marijuana (THC) Screen Negative Orders (Tests/Meds): ED MEDICATIONS Generic Name Dose Route Start Last Admin Trade Name Freq PRN Reason Stop Dose Admin Ceftriaxone Sodium 2 gm/ 100 mls @ 200 mls/hr 04/09/24 16:15 04/09/24 16:21 Sodium Chloride IV 04/19/24 16:14 200 mls/hr Q24H JOSE Administration Azithromycin 500 mg/ Sodium 250 mls @ 250 mls/hr 04/09/24 16:13 Chloride IV 04/09/24 16:14 ONCE ONE Sodium Chloride 8 ml 04/09/24 12:47 Sodium Chloride 0.9% 10ml Vial IV 05/09/24 12:46 NEEDED PRN dilute pepcid Sodium Chloride 10 ml 04/09/24 12:47 Sodium Chloride 0.9% 10ml Vial IV 05/09/24 12:46 NEEDED PRN dilute protonix Discontinued Medications Generic Name Dose Route Start Last Admin Trade Name Freq PRN Reason Stop Dose Admin Al Hydrox/Mg Hydrox/Simethicone 30 ml 04/09/24 12:47 04/09/24 13:13 Aluminum/Magnesium/Simethicone 30ml Udc PO 04/09/24 12:48 30 ml ONCE ONE Administration Diazepam 5 mg 04/09/24 13:26 04/09/24 13:27 Diazepam 10mg/2ml Syringe IV 04/09/24 13:27 5 mg ONCE ONE Administration Famotidine 20 mg 04/09/24 12:47 04/09/24 13:13 Famotidine 20mg/2ml Vial IV 04/09/24 12:48 20 mg ONCE ONE Administration Lactated Ringer's 1,000 mls @ 999 mls/hr 04/09/24 12:47 04/09/24 13:13 Lactated Ringer's 1000 Ml Bag IV 04/09/24 13:47 999 mls/hr .Q1H1M ONE Administration Magnesium Sulfate 2 gm in 50 mls @ 50 mls/hr 04/09/24 12:47 04/09/24 13:13 Magnesium Sulfate 2gm/50ml Premix IV 04/09/24 13:46 50 mls/hr ONCE ONE Administration Potassium Chloride/Water 100 mls @ 100 mls/hr 04/09/24 13:24 04/09/24 13:44 Potassium Chloride 10meq/100ml Ivpb IV 04/09/24 14:23 100 mls/hr ONCE ONE Administration Iopamidol 80 ml 04/09/24 13:39 04/09/24 13:40 Iopamidol-370 (76%);100ml Bottle IV 04/09/24 13:40 80 ml ONCE ONE Administration Ondansetron HCl 4 mg 04/09/24 12:47 04/09/24 13:13 Ondansetron 4mg/2ml Vial IV 04/09/24 12:48 4 mg ONCE ONE Administration Pantoprazole Sodium 40 mg 04/09/24 12:47 04/09/24 13:13 Pantoprazole 40mg Vial IV 04/09/24 12:48 40 mg ONCE ONE Administration Potassium Chloride 60 meq 04/09/24 13:24 04/09/24 13:44 Potassium Chloride 20meq Tab PO 04/09/24 13:25 60 meq ONCE ONE Administration Sodium Chloride 10 ml 04/09/24 13:39 04/09/24 13:40 Sodium Chloride 0.9% 10ml Syr (Rad Only) IV 04/09/24 13:40 10 ml ONCE ONE Administration Sodium Chloride 50 ml 04/09/24 13:39 10/16/24 13:40 0.9 % Sodium Chloride 50 Ml Vial IV 04/09/24 13:40 50 ml ONCE ONE Administration ORDERS Category Date Time Status CT angio abdomen pelvis Stat Cat Scan 04/09/24 13:18 Completed CBC w/Auto Diff [Complete Blood Count Auto Diff] Stat Lab 04/09/24 12:45 Completed CK [Creatine Kinase] Stat Lab 04/09/24 16:19 Ordered CMP [Comprehensive Metabolic Panel] Stat Lab 04/09/24 12:45 Completed HIV (1&2) Antibody Rapid Stat Lab 04/09/24 12:45 Completed Hep C Ab with Reflex to RNA Stat Lab 04/09/24 12:45 Received Lactic Acid Stat Lab 04/09/24 12:45 Completed Lipase Stat Lab 04/09/24 12:45 Completed PT INR [Prothrombin Time INR] Stat Lab 04/09/24 12:45 Completed PTT [Activated Partial Thrombo Time] Stat Lab 04/09/24 12:45 Completed UA [Urinalysis and Microscopic] Stat Lab 04/09/24 14:26 Completed UDS [Drug Screen,Urine] Stat Lab 04/09/24 14:26 Completed Blood Culture Stat Micro 04/09/24 12:47 Received Medical Decision Narrative: 48-year-old male history of hypertension, hyperlipidemia, tobacco use, psychiatric comorbidities, alcohol use disorder, gastritis/PUD, substance abuse disorder on daily Suboxone, appendectomy presenting with vomiting. Patient states that he has been vomiting for almost a week at this point. Intermittently having coffee-ground emesis and dark red blood. Still passing gas, last bowel movement was yesterday, but was constipated because he has not been able to tolerate much p.o. intake. Having crampy, severe epigastric and suprapubic abdominal pain that does not radiate. Associated with fevers. No urinary symptoms, blood in the stool, abdominal skin changes, or any other concern. Has not had alcohol in over a week since all of this started. Has been taking his Suboxone. History was obtained via conversation with patient. On arrival, patient hemodynamically stable, alert, oriented x4, appropriate, GCS 15, moving all extremities spontaneously, pupils equal and reactive to light. Full physical exam performed and significant for chronically ill-appearing male who is in mild distress secondary to pain and vomiting. Actively retching. Abdomen is soft, nondistended, but diffusely tender without peritonitis. No overlying skin changes. No flank tenderness. He is tachycardic and normotensive. Differential includes PUD, gastritis, enteritis, gastroenteritis, pancreatitis, SBO, colitis, diverticulitis, nephrolithiasis, UTI, cholecystitis, choledocholithiasis, appendicitis, torsion, hepatitis, aortic pathology, mesenteric ischemia among others. Patient placed on continuous cardiac monitoring and continuous pulse ox with initial blood pressure 117/70, heart rate 98, saturation 94% on room air. Patient was given Pepcid, Protonix, Zofran, IV fluids, Maalox. On reevaluation, patient still vomiting. 5 mg IV Valium given which had significant improvement. Independent interpretation of workup demonstrates leukocytosis with neutrophilia. Nonactionable coagulation factors. Patient's chemistry with hyponatremia, hypokalemia, hypochloremia. Patient given fluids, p.o. and IV potassium for this. Lipase negative. CT angiogram of the abdomen pelvis was independently interpreted and without perforation, obstruction, or obvious source of patient's pain and discomfort. Valium has Patient's symptoms at bay for over an hour. Still awaiting radiology read at time of handoff to oncoming physician. [employer] disclaimer Much of this encounter note is an electronic environmental protection economist spoken language to printed text. Electronic environmental protection economist of the spoken language may permit errors. Although I have reviewed the note, some errors may still exist. DO Shorty: I assumed care of the patient at 1500. He is coughing up large amounts of mucus and states that he feels that he is having a hard time breathing. I do not appreciate any hematemesis on my assessment. I note that his blood pressure has been trending downward since arrival. He has mildly elevated BUN, which could be consistent with upper GI bleed. He has had multiple instances of bleeding duodenal ulcers in the past with 2 scopes over the last 4 months. He has elevated lactic, fever, white count, tachycardia, and tachypnea consistent with sepsis. He is found to have pneumonia on CT scan. He had some blood in his urine with negative RBCs so I did add on a CK to his workup as well. I started him on IV Rocephin and azithromycin for his pneumonia. Ultimately given that he meets sepsis criteria and also has this reported inability to tolerate oral intake with only minimal improvement despite medications in the ED, I feel he would benefit from admission for continued monitoring pending blood cultures. I had an interactive discussion with the hospitalist who admitted the patient in stable condition. Critical Care <Nitesh Chao MD - Last Filed: 04/09/24 14:50> Critical Care Time Critical Care Time: No
[2024-04-09 13:11] LABS: Blood Urea Nitrogen 41 mg/dl (9-20); Creatinine Clearance Estimated 69 mL/min (50-200); Estimated Glomerular Filt Rate 64 ml/min (>60); GFR (African American) 78 ML/MIN (>60)
[2024-04-09 13:12] LABS: Alanine Aminotransferase 24 U/L (12-78); Albumin/Globulin Ratio 1.2 (1.1-1.8); Alkaline Phosphatase 73 U/L (38-126); Aspartate Amino Transferase 73 U/L (17-59); Bilirubin,Total 0.7 mg/dl (0.2-1.3); Carbon Dioxide 36 mmol/L (22.0-30.0); Globulin 3.2 g/dL (1.3-3.2); Glucose 140 mg/dl (74-100); Lipase 108 U/L (23-300); Total Protein,Serum 6.9 g/dl (6.3-8.2)
[2024-04-09 13:13] LABS: Calcium 8.4 mg/dl (8.4-10.2)
[2024-04-09] MEDS: PANTOPRAZOLE 40MG VIAL 40 MG IV ×2 (13:13→21:44)
[2024-04-09] MEDS: ONDANSETRON 4MG/2ML VIAL 4 MG IV ×2 (13:13→20:02)
[2024-04-09] MEDS: ALUMINUM/MAGNESIUM/SIMETHICONE 30ML UDC 30 ML PO (13:13)
[2024-04-09] MEDS: MAGNESIUM SULFATE IN WATER 2 GM/50 ML PIGGYBACK IV (13:13)
[2024-04-09] MEDS: FAMOTIDINE 20MG/2ML VIAL 20 MG IV (13:13)
[2024-04-09] MEDS: LACTATED RINGERS 1000ML 1,000 ML 999 ML IV ×2 (13:13→17:06)
[2024-04-09 13:14] LABS: Activated Partial Thrombo Time 34.1 seconds (22.8-30.6); INR 0.88 (0.9-1.1)
[2024-04-09 13:16] LABS: Lactic Acid 2.9 mmol/L (0.7-2.1)
--- NOTE | 2024-04-09 13:18 | CT_ITS ---
FINAL REPORT TECHNIQUE: Pre-and postcontrast images of the abdomen and pelvis were performed by computed tomography. Extensive 3-D reconstruction images were performed. A CTA was performed. This study was performed with techniques to keep radiation doses as low as reasonably achievable (ALARA). Individualized dose reduction techniques using automated exposure control or adjustment of mA and/or kV according to the patient''s size were employed. CLINICAL HISTORY: coffee ground emesis, abd pain COMPARISON: 03/13/2024 FINDINGS: ABDOMEN/PELVIS: There is a rounded focus of airspace opacity at the right base measuring 6.5 cm in diameter. Air bronchograms are identified. There is diffuse fatty infiltration of the liver. The gallbladder is present. There are multiple bilateral nonobstructing renal stones. Individual stones measure up to 11 mm. The spleen, pancreas, and adrenals are unremarkable. CTA: The abdominal aorta is proper caliber. The SMA, celiac axis, and MOIRA are patent. There is no significant stenosis or calcification. Dual renal arteries are widely patent. The iliac arteries are normal. IMPRESSION: Fatty liver. Airspace opacity at right base concerning for pneumonia. Thoracic CT is recommended for full evaluation. Reviewed, Interpreted and Dictated by Rangel Soto MD Transcribed by Latonya Quintana Authenticated and [facility]
--- NOTE | 2024-04-09 13:19 | PC.NURSE ---
Victor Hugo from lab called critical potassium of 3.0. Dr. Chao notified
--- NOTE | 2024-04-09 13:19 | PC.NURSE ---
ky [facility] accepted flight for pt. approx arrival time 33 mins.
--- NOTE | 2024-04-09 13:19 | PC.NURSE ---
warehouse attendant contacted for helicopter arrival.
[2024-04-09] MEDS: diazePAM 10MG/2ML SYRINGE 5 MG IV (13:27)
[2024-04-09 13:34] LABS: Lymphocytes % 7 % (10-50); Macrocytosis 1+; Monocytes % 2 % (2-9); Neutrophils % 91 % (42-76); Platelet Estimate Normal; Total Cells Counted 100
[2024-04-09] MEDS: 0.9 % SODIUM CHLORIDE 50 ML VIAL IV (13:40)
[2024-04-09] MEDS: SODIUM CHLORIDE 0.9% 10ML SYR (RAD ONLY) 10 ML IV ×2 (13:40→20:34)
[2024-04-09] MEDS: IOPAMIDOL-370 (76%);100ML BOTTLE 80 ML IV (13:40)
[2024-04-09] MEDS: KCl 10mEq/100ml 100 ML 100 MEQ IV (13:44)
[2024-04-09] MEDS: POTASSIUM CHLORIDE 20MEQ TAB 60 MEQ PO (13:44)
[2024-04-09 14:22] LABS: HIV (1&2) Antibody Rapid NONREACTIVE (NONREACTIVE)
[2024-04-09 14:33] LABS: Microscopic, Urine URINE MICROSCOPIC (MICROSCOPIC)
[2024-04-09 14:36] LABS: Appearance,Urine CLEAR (Clear); Bilirubin,Urine Negative (Negative); Blood, Urine 2+ (Negative); Color,Urine YELLOW (Yellow); Glucose,Urine (UA) Negative (Negative); Ketones,Urine Negative (Negative); Leukocyte Esterase,Urine Negative (Negative); Nitrate,Urine Negative (Negative); PH,Urine 7.5 (5.0-8.5); Protein,Urine 2+ (Negative); Specific Gravity, Urine 1.015 (1.005-1.030)
[2024-04-09 14:55] LABS: Bacteria,Urine Trace /lpf; Squamous Epithelial Cell,Urine Occasional #/hpf (0-5)
--- NOTE | 2024-04-09 15:14 | PC.NURSE ---
called to rad for update on scan status, trading floor operator states that scan is still locked .
[2024-04-09 16:03] LABS: Amphetamine/Metha Screen,Urine Negative ng/ml (<1000)
[2024-04-09 16:04] LABS: Barbiturates Screen,Urine Negative ng/ml (<200); Benzodiazepines Screen,Urine Negative ng/ml (<200)
[2024-04-09 16:05] LABS: Cannabinoid Screen,Urine Negative ng/ml (<50)
[2024-04-09 16:06] LABS: Cocaine Screen,Urine Negative ng/ml (<300); Methadone Screen,Urine Negative ng/ml (<300)
[2024-04-09 16:07] LABS: Opiate Screen,Urine Negative ng/ml (<300)
[2024-04-09 16:08] LABS: Phencyclidine Screen,Urine Negative ng/ml (<25)
--- NOTE | 2024-04-09 16:09 | PC.NURSE ---
Dr. Oro at to update pt on results
--- NOTE | 2024-04-09 16:19 | PC.NURSE ---
on phone with hospitalist
[2024-04-09] MEDS: CEFTRIAXONE SODIUM 2 GM in 0.9 % SODIUM CHLORIDE 100 ML IV (16:21)
--- NOTE | 2024-04-09 16:27 | XR_ITS ---
PROCEDURE INFORMATION: Exam: XR Chest Exam date and time: 04/09/2024 4:31 PM Age: 48 years old Clinical indication: Cough; Additional info: Evaluate for pneumonia TECHNIQUE: Imaging protocol: Radiologic exam of the chest. Views: 1 view. COMPARISON: CT CHEST WO CON 12/07/2023 9:08 PM FINDINGS: Lungs: There is a 10 cm rounded masslike opacity in the right mid lung which cannot be characterized as infectious on this exam and for which complete evaluation with contrast-enhanced thoracic CT would be recommended. Pleural spaces: No large effusion or pneumothorax. Heart/Mediastinum: No evidence of mediastinal widening or cardiac silhouette enlargement; the mediastinum and heart appear within normal limits for contour and size. Bones/joints: See Lungs finding. IMPRESSION: There is a 10 cm rounded masslike opacity in the right mid lung which cannot be characterized as infectious on this exam and for which complete evaluation with contrast-enhanced thoracic CT would be recommended.
--- NOTE | 2024-04-09 16:30 | PC.NURSE ---
call made to general house worker for bed placement
--- NOTE | 2024-04-09 16:42 | PC.NURSE ---
report called to bart on second floor
[2024-04-09 16:43] LABS: Creatine Kinase 60 U/L (55-170)
[2024-04-09 16:54] LABS: Reflex Lactic Add Lactic Reflex
--- NOTE | 2024-04-09 16:54 | PC.NURSE ---
pt able to ambulate to the restroom with no assistance
[2024-04-09 17:49] LABS: Lactic Acid Follow Up (RFLX 1) 1.6 mmol/L (0.7-2.1)
--- NOTE | 2024-04-09 17:49 | CT_ITS ---
PROCEDURE INFORMATION: Exam: CT Chest With Contrast; Diagnostic Exam date and time: 04/09/2024 8:23 PM Age: 48 years old Clinical indication: Abnormal findings; Other: Abnormal chest xray; Additional info: Evaluate for right lung opacity on chest x-ray TECHNIQUE: Imaging protocol: Diagnostic computed tomography of the chest with contrast. Radiation optimization: All CT scans at this facility use at least one of these dose optimization techniques: automated exposure control; mA and/or kV adjustment per patient size (includes targeted exams where dose is matched to clinical indication); or iterative reconstruction. Contrast material: ISOVUE; Contrast volume: 75 ml; Contrast route: IV; COMPARISON: CT CHEST WO CON 12/07/2023 9:08 PM FINDINGS: Thyroid: Homogeneous thyroid. Lungs: There is a large area of dense airspace consolidation in the right lower lobe with air bronchograms. In the central portion of the consolidated right lower lobe, there is an area decreased density which could represent developing abscess formation or necrosis. Pleural spaces: Trace right pleural effusion. No pleural fluid on the left. No pneumothorax on either side. Heart: Normal heart size. No significant pericardial fluid. Coronary arteries: No significant coronary artery calcification. Lymph nodes: Several reactive size mediastinal lymph nodes are noted. Calcified mediastinal and hilar nodes are present. Vasculature: Within expected limits for age. Normal caliber arteries. Diaphragm: Tiny sliding hiatal hernia. Bones/joints: No acute fracture or destructive lesion. Soft tissues: Unremarkable. IMPRESSION: Extensive airspace disease is noted in the right lower lobe. Although rounded and somewhat mass-like, appearance is most compelling for necrotizing pneumonia. A rapidly progressing neoplasm is considered unlikely but not entirely excluded. There is a trace right pleural effusion.
--- NOTE | 2024-04-09 18:06 | P.HP_ITS ---
History of Present Illness *Admission Date: 04/09/24 *Reason for visit:: Worsening cough *History of present illness: Brandon Dave is a 48-year-old male with medical history significant for PUD/gastritis with GI bleeds, current smoker, alcohol use disorder, substance use disorder on Suboxone for nausea/vomiting, worsening cough. Patient states the coughing began about 3 weeks ago, and the nausea/vomiting began about a week ago. He states he stopped drinking about a week ago. He endorses epigastric abdominal pain, with generalized abdominal cramping. Of note, he was recently discharged on 03/14/2024 for upper GI bleed. Workup in the ED significant for heart rate up to 119, BP as low as 99/59, WBC 15.9, hemoglobin 14.1, potassium 3.0, BUN 41, AST ALT 73/24, procalcitonin 8.6. UDS negative. CTA abdomen/pelvis did not reveal acute intra-abdominal findings, but did suggest r ight lung airspace opacity. Case was discussed with ED provider, and decision was made to admit patient for sepsis from suspected pneumonia. [facility] Disclaimer: The information contained in this section may have been updated after the patient was seen, as this information can be updated by other users. Medical History Depression Anxiety Traumatic brain injury Surgical History History of foot surgery H/O lithotripsy History of appendectomy H/O right knee surgery H/O anterior cruciate ligament surgery Previous back surgery Family History Grandmother Cancer Diabetes Stroke Grandfather Cancer Mother Diabetes Hypertension Social History Smoking Status: Current every day smoker tobacco type: cigarettes packs per day: 1 alcohol intake: current alcohol intake frequency: a few times a week counseling provided: provider counseling substance use type: former substance user and prescription drug current occupational status: disabled Travel in the last 8 weeks: None household members: significant other housing: house current occupational exposures/hazards: No caffeine: No Other Medical History Have you received the Flu Vaccine for this season: No Have you received the Pneumonia Vaccine: No Meds Home Medications and Allergies Home Medications ?Medication ?Instructions ?Recorded ?Confirmed ?Type buprenorphine 8 mg-naloxone 2 mg 2 tab sublingual DAILY 08/17/22 03/13/24 History sublingual tablet acamprosate 333 mg tablet,delayed 333 mg PO TID 03/13/24 03/13/24 History release aripiprazole 5 mg tablet 5 mg PO DAILY 03/13/24 03/13/24 History buspirone 10 mg tablet 10 mg PO TIDP PRN Anxiety 03/13/24 03/13/24 History mirtazapine 15 mg tablet 15 mg PO HS 03/13/24 03/13/24 History nicotine 21 mg/24 hr daily 1 patch transdermal DAILY 03/13/24 03/13/24 History transdermal patch propranolol 10 mg tablet 10 mg PO TID 03/13/24 03/13/24 History ondansetron 4 mg disintegrating 4 mg PO Q8H PRN nausea and 03/14/24 Rx tablet vomiting #14 tabs pantoprazole 40 mg tablet,delayed 40 mg PO BID 30 days #60 tabs 03/14/24 Rx release sucralfate 1 gram tablet (Carafate) 1 g PO BID PRN abdominal pain #60 03/14/24 Rx tabs New Prescriptions to Start Prescriptions: Allergies Allergy/AdvReac Type Severity Reaction Status Date / Time aspirin [ASPIRIN] Allergy Unknown Verified 01/08/24 10:51 piperacillin [From Zosyn] Allergy Verified 01/08/24 10:51 tazobactam [From Zosyn] Allergy Verified 01/08/24 10:51 Exam Data for Last 24 hours Vital signs and Labs for Last 24 Hours: Temp Pulse Resp BP Pulse Ox O2 Del Method 99.1 F 92 H 17 109/64 L 92 L Room Air 04/09/24 16:56 04/09/24 16:56 04/09/24 16:56 04/09/24 16:56 04/09/24 16:56 04/09/24 16:56 Laboratory Results - last 24 hr 04/09/24 12:45: WBC 15.9 H, RBC 4.37 L, Hgb 14.1, Hct 45.0, MCV 103.1 H, MCH 32.3 H, MCHC 31.3 L, RDW 15.7, Plt Count 155, MPV 8.1, Neut % (Auto) 93.3 H, Lymph % (Auto) 3.9 L, [place] % (Auto) 2.5, Eos % (Auto) 0.1, Baso % (Auto) 0.2, Neut # (Auto) 14.9 H, Lymph # (Auto) 0.6 L, [place] # (Auto) 0.4, Eos # (Auto) 0.0, Baso # (Auto) 0.0, Total Counted 100, Neutrophils % (Manual) 91 H, Lymphocytes % (Manual) 7 L, Monocytes % (Manual) 2, Platelet Estimate Normal, RBC Morphology Not Reportable, Macrocytosis 1+, PT 10.0 L, INR 0.88 L, APTT 34.1 H, Sodium 134 L, Potassium 3.0 L, Chloride 92 L, Carbon Dioxide 36 H, Anion Gap 9.0, BUN 41 H, Creatinine 1.20, Estimated Creat Clear 69, Estimated GFR 64, Est GFR ( Amer) 78, Glucose 140 H, Lactate 2.9 H, Calcium 8.4, Total Bilirubin 0.7, AST 73 H, ALT 24, Alkaline Phosphatase 73, Total Creatine Kinase 60, Total Protein 6.9, Albumin 3.7, Globulin 3.2, Albumin/Globulin Ratio 1.2, Lipase 108, Procalcitonin 8.60 H, HIV 1&2 Antibody Rapid Nonreactive 04/09/24 14:26: Urine Color Yellow, Urine Appearance Clear, Urine pH 7.5, Ur Specific [place] 1.015, Urine Protein 2+ A, Urine Glucose (UA) Negative, Urine Ketones Negative, Urine Blood 2+ A, Urine Nitrate Negative, Urine Bilirubin Negative, Urine Urobilinogen 4.0, Ur Leukocyte Esterase Negative, Urine RBC None, Urine WBC None, Ur Squamous Epith Cells Occasional, Urine Bacteria Trace, Urine Opiates Screen Negative, Urine Methadone Screen Negative, Ur Barbituates Screen Negative, Ur Phencyclidine Scrn Negative, Ur Amphetamines Screen Ne gative, U Benzodiazepines Scrn Negative, Urine Cocaine Screen Negative, U Marijuana (THC) Screen Negative 04/09/24 17:18: Lactate 1.6 I & O for Last 24 hours: Intake & Output 04/06/24 04/07/24 04/08/24 04/09/24 23:59 23:59 23:59 23:59 Weight 64.212 kg Constitutional Constitutional: mild distress *Routine HEENT Exam Head: Present normocephalic Eye: Present EOMI and PERRL ENT: Present mucous membranes moist *Routine Neck Exam Neck: Present supple; Absent lymphadenopathy *Routine Respiratory Exam Respiratory: Present wheezes; Absent CTA bilaterally Comments: Moderate bilateral wheezing, rhonchi. *Routine Cardiovascular Exam Cardiovascular: Present RRR *Routine Abdominal Exam Abdominal: Present soft, normoactive bowel sounds and tenderness Comments: Generalized abdominal tenderness. No peritoneal signs. *Routine Rectal Exam Rectal:: deferred *Routine Genitalia Exam Genitalia:: deferred *Routine Extremities Exam Extremities: Absent cyanosis, clubbing or edema *Routine Skin Exam Skin: Present warm; Absent rash *Routine Neurological Exam Neurological: Present alert and oriented X3 Assessment and Plan *Assessment and plan (1) Hypokalemia: Status: Acute Category: Medical Code(s): E87.6 - Hypokalemia (2) Shortness of breath: Status: Acute Category: Medical Code(s): R06.02 - Shortness of breath (3) Hematemesis: Status: Acute Category: Medical Code(s): K92.0 - Hematemesis (4) Sepsis due to pneumonia: Status: Acute Category: Medical Code(s): J18.9 - Pneumonia, unspecified organism; A41.9 - Sepsis, unspecified organism Plan Brandon Dave is a 48-year-old male with medical history significant for PUD/gastritis with GI bleeds, current smoker, alcohol use disorder, substance use disorder on Suboxone for nausea/vomiting, worsening cough. Patient states the coughing began about 3 weeks ago, and the nausea/vomiting began about a week ago. He states he stopped drinking about a week ago. He endorses epigastric abdominal pain, with generalized abdominal cramping. Of note, he was recently discharged on 03/14/2024 for upper GI bleed. Workup in the ED significant for heart rate up to 119, BP as low as 99/59, WBC 15.9, hemoglobin 14.1, potassium 3.0, BUN 41, AST ALT 73/24, procalcitonin 8.6. UDS negative. CTA abdomen/pelvis did not reveal acute intra-abdominal findings, but did suggest right lung airspace opacity. Case was discussed with ED provider, and decision was made to admit patient for sepsis from suspected pneumonia. #Right 10 cm mid lung opacity #Suspected hospital-acquired pneumonia ? Patient has been having green productive cough for the past 3 weeks since discharge from the hospital. ? He states the right side of his ribs hurt with coughing, and feels like something is pushing into his right ribs. ? CXR reveals 10 cm rounded masslike opacity in the right midlung. ? Initial WBC 15.9, with tachycardia. Procalcitonin 8.6. Given 2 L of sepsis bolus. ? IV vancomycin, cefepime. ? Follow-up CT chest with contrast ? Follow-up blood cultures, sputum cultures. ? Discussed case with our inspection and testing supervisor, who may perform bronchoscopy tomorrow pending CT chest results. N.p.o. at midnight. #Acute COPD exacerbation ? Moderate wheezing on bilateral lung piña. ? DuoNebs as needed, Pulmicort twice daily, IV Solu-Medrol 40 mg daily. ? Follow-up respiratory viral panel. #Nausea/vomiting #Generalized abdominal pain #Coffee-ground emesis, dark stools ? Patient has a history of PUD, had EGD on revealing 1 cm postbulbar duodenal ulcer without active bleeding. ? Patient states he continues to have intermittent coffee-ground emesis, dark stools. ? Hemoglobin on admission 14.1. ? At the same time, patient has continued to drink alcohol since discharge. He was counseled to subside drinking given PUD. ? He states he stopped drinking about a week ago because he could not keep anything down due to abdominal pain, nausea/vomiting. ? CT abdomen/pelvis did not show acute intra-abdominal findings. ? AST/ALT ratio 73/24 suggestive of alcohol liver disease but not overt hepatitis. ? Dark stools, coffee-ground emesis seem to be chronic in nature as hemoglobin was stable. However, BUN 41 is above his discharge BUN of 35. ? GI consulted, pending recommendations. N.p.o. at midnight. ? Nausea/vomiting/diarrhea may also be related to gastroenteritis. ? IV Zofran as needed. ? IV Protonix 40 mg twice daily. #Hypokalemia ? Initial potassium 3.0. replating. Follow-up magnesium. #Alcohol withdrawal ? Patient is visibly anxious, and endorses hallucinations. ? Last drink was about a week ago. ? Initiated on CIWA protocol. ? Ativan as needed. ? Supplementing with thiamine, multivitamin. IV thiamine ordered. #Substance use disorder ? Resume home Suboxone Full code SCDs
[2024-04-09] MEDS: AZITHROMYCIN 500 MG in 0.9 % SODIUM CHLORIDE 250 ML 250 MG IV (18:26)
[2024-04-09] MEDS: VANCOMYCIN CONSULT REQUEST 1 EACH NOTAPPLIC (18:32)
--- NOTE | 2024-04-09 18:35 | HMH.ITSTN ---
called RERE Kauffman , stated patient is on antibiotics and to wait until a little after 7PM
[2024-04-09] MEDS: METHYLPREDNISOLONE SOD SUCC 40MG VIAL 40 MG IV (18:41)
[2024-04-09] MEDS: CEFEPIME HCL 1 GM in 0.9 % SODIUM CHLORIDE 50 ML IV (18:42)
[2024-04-09] MEDS: IPRATROPIUM/ALBUTEROL 3 ML NEB IH (18:45)
[2024-04-09] MEDS: BUDESONIDE 0.5MG/2ML NEB 0.5 MG IH (18:45)
[2024-04-09] MEDS: LORazepam 1MG TABLET 1 MG PO (19:01)
[2024-04-09 19:09] LABS: Adenovirus,PCR Not Detected (NotDetected); Bordetella Pertussis Not Detected (NotDetected); Chlamydophila Pneumoniae, PCR Not Detected (NotDetected); Coronavirus 19, PCR Not Detected (NotDetected); Coronavirus 229E Not Detected (NotDetected); Coronavirus NL63 Not Detected (NotDetected); Coronavirus OC43 Not Detected (NotDetected); Coronovirus HKU1,PCR Not Detected (NotDetected); Human Metapneumovirus Not Detected (NotDetected); Influenza A, PCR Not Detected (NotDetected); Influenza AH1, 2009 Not Detected (NotDetected); Influenza AH1, PCR Not Detected (NotDetected); Influenza AH3,PCR Not Detected (NotDetected); Influenza B, PCR Not Detected (NotDetected); Mycoplasma Pneumoniae, PCR Not Detected (NotDetected); Parainfluenza 1, PCR Not Detected (NotDetected); Parainfluenza 2, PCR Not Detected (NotDetected); Parainfluenza 3, PCR Not Detected (NotDetected); Parainfluenza 4, PCR Not Detected (NotDetected); Respiratory Syncytial Virus Not Detected (NotDetected); Rhinovirus/Enterovirus Not Detected (NotDetected)
[2024-04-09] MEDS: LACTATED RINGERS 1000ML 1,000 ML 100 ML IV (20:01)
[2024-04-09] MEDS: THIAMINE HCL 100 MG in 0.9 % SODIUM CHLORIDE 50 ML 204 MG IV (20:02)
[2024-04-09] MEDS: LORazepam 2MG/ML VIAL 2 MG IV (20:04)
--- NOTE | 2024-04-09 20:11 | PC.NURSE ---
Addendum entered by Denise Cordova 04/09/24 20:28: Patient left for with Radiology at 20:13. Original Note: Patient left floor with Radiology at 8:13.
--- NOTE | 2024-04-09 20:26 | PC.NURSE ---
Patient arrived back to floor from Radiology at 20:27.
[2024-04-09] MEDS: IOPAMIDOL-370 (76%);100ML BOTTLE 75 ML IV (20:34)
[2024-04-09] MEDS: VANCOMYCIN/WATER FOR INJ (PEG) 1.5 GM/300 ML PIGGYBACK IV (21:44)
[2024-04-09] MEDS: ACETAMINOPHEN 325MG TAB 650 MG PO (23:54)
[2024-04-10] VITALS (27 sets, daily range): BP systolic 89–128; BP diastolic 52–94; PULSE 68–100; RESP 14–20; TEMP 36–37.3; O2SAT 90–97; BMI 22.6
[2024-04-10] MEDS: METRONIDAZ/SOD CHL 500 MG/100 ML PIGGYBACK 100 MG IV ×3 (00:07→16:25)
[2024-04-10] MEDS: IPRATROPIUM/ALBUTEROL 3 ML NEB IH ×3 (00:17→18:34)
[2024-04-10] MEDS: CEFEPIME HCL 1 GM in 0.9 % SODIUM CHLORIDE 50 ML IV (05:41)
--- NOTE | 2024-04-10 06:09 | PC.NURSE ---
Pt CIWA 17 at beginning of shift, IV ativan given per AUG. Pt has not required any more thus far. Pt noted to have fever of 102.4 through night. Pt has rested well through shift. Ambulated to BR with 1x assist. Bed alarm on for pt safety. Call light within reach.
[2024-04-10] MEDS: BUDESONIDE 0.5MG/2ML NEB 0.5 MG IH ×2 (06:23→18:34)
[2024-04-10 06:38] LABS: Basophils % 0.3 % (0.1-2.0); Hematocrit 34.1 % (42.0-52.0); Lymphocytes # 0.5 K/mm3 (0.7-4.5); Lymphocytes % 5.2 % (10-50); Mean Corpuscular HGB Conc 32.5 g/dL (31.8-35.4); Mean Corpuscular Hemoglobin 31.9 pg (27.0-31.2); Mean Corpuscular Volume 98.2 fl (80-94); Monocytes # 0.5 K/mm3 (0.1-1.0); Monocytes % 5.4 % (1.7-9.3); Neutrophils # 8.2 K/mm3 (1.8-7.8); Neutrophils % 89.1 % (37.0-80.0); Platelet Count 123 K/mm3 (142-424); Red Blood Count 3.47 M/mm3 (4.60-6.20); White Blood Count 9.2 K/mm3 (4.8-10.8)
[2024-04-10] MEDS: SODIUM CHLORIDE 3% 15ML NEB 3 ML IH (06:44)
[2024-04-10 06:45] LABS: MANUAL DIFFERENTIAL MANUAL DIFFERENTIAL (MANUAL DIFF)
[2024-04-10 06:50] LABS: Chloride 102 mmol/L (98-107); Potassium 3.7 mmoL/L (3.5-5.1); Sodium 134 mmol/L (136-145)
[2024-04-10 06:53] LABS: Anion Gap 6.7 mEq/L (5-15); Blood Urea Nitrogen 32 mg/dl (9-20); Calcium 7.9 mg/dl (8.4-10.2); Carbon Dioxide 29 mmol/L (22.0-30.0); Creatinine Clearance Estimated 107 mL/min (50-200); Estimated Glomerular Filt Rate 103 ml/min (>60); GFR (African American) 124 ML/MIN (>60); Glucose 121 mg/dl (74-100)
[2024-04-10 06:54] LABS: Magnesium 2.4 mg/dl (1.6-2.3)
[2024-04-10 07:03] LABS: Hemoglobin 11.3 g/dL (14.1-18.0)
--- NOTE | 2024-04-10 07:53 | P.CONPHA_ITS ---
Pharmacy Consult Date: 04/10/24 Time: 07:53 Referring provider: DR. ABDALLA Reason for Consult:: VANCOMYCIN DOSING Allergies Allergy/AdvReac Type Severity Reaction Status Date / Time aspirin [ASPIRIN] Allergy Unknown Verified 01/08/24 10:51 piperacillin [From Zosyn] Allergy Verified 01/08/24 10:51 tazobactam [From Zosyn] Allergy Verified 01/08/24 10:51 Home Medications ?Medication ?Instructions ?Recorded ?Confirmed ?Type buprenorphine 8 mg-naloxone 2 mg 2 tab sublingual DAILY 08/17/22 03/13/24 History sublingual tablet acamprosate 333 mg tablet,delayed 333 mg PO TID 03/13/24 03/13/24 History release aripiprazole 5 mg tablet 5 mg PO DAILY 03/13/24 03/13/24 History buspirone 10 mg tablet 10 mg PO TIDP PRN Anxiety 03/13/24 03/13/24 History mirtazapine 15 mg tablet 15 mg PO HS 03/13/24 03/13/24 History nicotine 21 mg/24 hr daily 1 patch transdermal DAILY 03/13/24 03/13/24 History transdermal patch propranolol 10 mg tablet 10 mg PO TID 03/13/24 03/13/24 History ondansetron 4 mg disintegrating 4 mg PO Q8H PRN nausea and 03/14/24 Rx tablet vomiting #14 tabs pantoprazole 40 mg tablet,delayed 40 mg PO BID 30 days #60 tabs 03/14/24 Rx release sucralfate 1 gram tablet (Carafate) 1 g PO BID PRN abdominal pain #60 03/14/24 Rx tabs New Prescriptions to Start Prescriptions: Height: 1.73 m Weight: 67.642 kg Laboratory Results:: Laboratory Results - last 24 hr 04/09/24 12:45: WBC 15.9 H, RBC 4.37 L, Hgb 14.1, Hct 45.0, MCV 103.1 H, MCH 32.3 H, MCHC 31.3 L, RDW 15.7, Plt Count 155, MPV 8.1, Neut % (Auto) 93.3 H, Lymph % (Auto) 3.9 L, [place] % (Auto) 2.5, Eos % (Auto) 0.1, Baso % (Auto) 0.2, Neut # (Auto) 14.9 H, Lymph # (Auto) 0.6 L, [place] # (Auto) 0.4, Eos # (Auto) 0.0, Baso # (Auto) 0.0, Total Counted 100, Neutrophils % (Manual) 91 H, Lymphocytes % (Manual) 7 L, Monocytes % (Manual) 2, Platelet Estimate Normal, RBC Morphology Not Reportable, Macrocytosis 1+, PT 10.0 L, INR 0.88 L, APTT 34.1 H, Sodium 134 L, Potassium 3.0 L, Chloride 92 L, Carbon Dioxide 36 H, Anion Gap 9.0, BUN 41 H, Creatinine 1.20, Estimated Creat Clear 69, Estimated GFR 64, Est GFR ( Amer) 78, Glucose 140 H, Lactate 2.9 H, Calcium 8.4, Total Bilirubin 0.7, AST 73 H, ALT 24, Alkaline Phosphatase 73, Total Creatine Kinase 60, Total Protein 6.9, Albumin 3.7, Globulin 3.2, Albumin/Globulin Ratio 1.2, Lipase 108, Procalcitonin 8.60 H, HIV 1&2 Antibody Rapid Nonreactive 04/09/24 14:26: Urine Color Yellow, Urine Appearance Clear, Urine pH 7.5, Ur Specific [place] 1.015, Urine Protein 2+ A, Urine Glucose (UA) Negative, Urine Ketones Negative, Urine Blood 2+ A, Urine Nitrate Negative, Urine Bilirubin Negative, Urine Urobilinogen 4.0, Ur Leukocyte Esterase Negative, Urine RBC None, Urine WBC None, Ur Squamous Epith Cells Occasional, Urine Bacteria Trace, Urine Opiates Screen Negative, Urine Methadone Screen Negative, Ur Barbituates Screen Negative, Ur Phencyclidine Scrn Negative, Ur Amphetamines Screen Negative, U Benzodiazepines Scrn Negative, Urine Cocaine Screen Negative, U Marijuana (THC) Screen Negative 04/09/24 17:18: Lactate 1.6 04/09/24 19:01: Chlamy pneumoniae PCR Not detected, Adenovirus (PCR) Not detected, B. pertussis DNA (PCR) Not detected, Coronavirus OC43 (PCR) Not detected, Coronavirus HKU1 (PCR) Not detected, Coronavirus 229E (PCR) Not detected, SARS-CoV-2 (PCR) Not detected, Coronavirus NL63 (PCR) Not detected, H uman Metapneumovir PCR Not detected, Influenza A (H1) PCR Not detected, Influ A (H1N1/09) PCR Not detected, Influenza A (H3) PCR Not detected, Influenza Type A (PCR) Not detected, Influenza Type B (PCR) Not detected, M. pneumoniae (PCR) Not detected, Parainfluenza 1 (PCR) Not detected, Parainfluenza 2 (PCR) Not detected, Parainfluenza 3 (PCR) Not detected, Parainfluenza 4 (PCR) Not detected, RSV (PCR) Not detected, Entero/Rhino (PCR) Not detected 04/10/24 05:28: WBC 9.2 D, RBC 3.47 L, Hgb 11.3 L D, Hct 34.1 L, MCV 98.2 H, MCH 31.9 H, MCHC 32.5, RDW 16.0, Plt Count 123 L, MPV 8.0, Neut % (Auto) 89.1 H, Lymph % (Auto) 5.2 L, [place] % (Auto) 5.4, Eos % (Auto) 0.0 L, Baso % (Auto) 0.3, Neut # (Auto) 8.2 H, Lymph # (Auto) 0.5 L, [place] # (Auto) 0.5, Eos # (Auto) 0.0, Baso # (Auto) 0.0, Sodium 134 L, Potassium 3.7 D, Chloride 102, Carbon Dioxide 29, Anion Gap 6.7, BUN 32 H, Creatinine 0.80 D, Estimated Creat Clear 107, Estimated GFR 103, Est GFR ( Amer) 124 D, Glucose 121 H, Calcium 7.9 L, Magnesium 2.4 H Medical History: Medical History (Updated 04/09/24 @ 16:24 by Monica Oro DO) Duodenal ulcer Drug abuse and dependence Back pain Rib pain Shoulder pain Neck pain Acute UTI Back pain Ankle fracture Fracture of distal end of fibula Sinusitis Cellulitis Exposure to COVID-19 virus PTSD (post-traumatic stress disorder) Acute blood loss anemia Anemia Peptic ulcer disease with hemorrhage Chronic pain Anxiety Acute bronchitis Elbow pain, left Acute urinary tract infection Leukocytosis Acute appendicitis High risk medication use Tobacco abuse Asthma exacerbation Depression Anxiety Traumatic brain injury Assessment and Plan Assessment and plan all Dx Assessment and Plan for all problems:: Pharmacokinetic dosing service Objective: Patient: Floor: Age: 48 yo Serum creatinine: 0.8 mg/dL Height: 68.1 Inches Weight (kg): 68 Assessment: IBW (kg): 68.63 Dosing wt(kg): 68 Estimated Creatinine clearance (ml/min): 107.4 CRCL method: Cockcroft and Gault using ibw(default). Drug selected: Vancomycin Loading dose (mg): 0 Vd (liters): 54.4 (factor used: 0.8 L/kg) Stan (hr-1): 0.094 Half life (hrs): 7.37 Recommended dose: 1500 mg Interval: 12 hrs Infusion time (hrs): 2.0 Predicted peak (mcg/mL): 37.2 Predicted trough (mcg/mL): 14.53 Total body weight is being used for vancomycin dosing. Recommendations: Give Vancomycin 1500 mg q 12 hrs with an expected Cpeak of 37.2 mcg/ml and an expected Ctrough of 14.53 mcg/ml ----Vanco only - ignore for aminoglycosides----- CLvanco= 5.11 L/hr AUC 0-24 /SCOTT Data: SCOTT 0.5 mcg/mL: AUC/SCOTT: 1174.2 SCOTT 1.0 mcg/mL: AUC/SCOTT: 587.1 --------- SCOTT 1.5 mcg/mL: AUC/SCOTT: 391.4 SCOTT 2.0 mcg/mL: AUC/SCOTT: 293.5
[2024-04-10 08:13] LABS: Lymphocytes % 7 % (10-50); Monocytes % 2 % (2-9); Neutrophils % 91 % (42-76); Platelet Estimate Slight Decrease; RBC Morphology Normal; Total Cells Counted 100
[2024-04-10] MEDS: METHYLPREDNISOLONE SOD SUCC 40MG VIAL 40 MG IV (08:38)
[2024-04-10] MEDS: PANTOPRAZOLE 40MG VIAL 40 MG IV ×2 (08:39→20:13)
[2024-04-10] MEDS: SODIUM CHLORIDE 0.9% 10ML VIAL 10 ML IV ×2 (08:39→20:13)
[2024-04-10] MEDS: THIAMINE 100MG TABLET 100 MG PO (08:46)
[2024-04-10] MEDS: FOLIC ACID 1MG TABLET 1 MG PO (08:46)
[2024-04-10] MEDS: BUPRENORPHINE/NALOXONE 8MG/2MG ODT 2 EACH SL (08:47)
[2024-04-10] MEDS: LORazepam 1MG TABLET 1 MG PO (08:53)
--- NOTE | 2024-04-10 09:13 | P.CONS_ITS ---
History of Present Illness History of present illness: Mr. Dave is a 48-year-old with reported history of asthma on albuterol inhaler on as-needed basis, PUD, gastritis, history of GI bleeds, tobacco and substance abuse presented to ER with worsening respiratory distress along with cough and productive phlegm for the last 3 weeks progressively getting worse. [facility] Disclaimer: The information contained in this section may have been updated after the patient was seen, as this information can be updated by other users. Medical History (Updated 04/10/24 @ 09:15 by Seb Hadley MD) Necrotizing pneumonia Pneumonia Duodenal ulcer Drug abuse and dependence Back pain Rib pain Shoulder pain Neck pain Acute UTI Back pain Ankle fracture Fracture of distal end of fibula Sinusitis Cellulitis Exposure to COVID-19 virus PTSD (post-traumatic stress disorder) Acute blood loss anemia Anemia Peptic ulcer disease with hemorrhage Chronic pain Anxiety Acute bronchitis Elbow pain, left Acute urinary tract infection Leukocytosis Acute appendicitis High risk medication use Tobacco abuse Asthma exacerbation Depression Anxiety Traumatic brain injury Surgical History History of foot surgery H/O lithotripsy History of appendectomy H/O right knee surgery H/O anterior cruciate ligament surgery Previous back surgery Family History Grandmother Cancer Diabetes Stroke Grandfather Cancer Mother Diabetes Hypertension Social History Smoking Status: Current every day smoker tobacco type: cigarettes packs per day: 1 alcohol intake: current alcohol intake frequency: a few times a week counseling provided: provider counseling substance use type: former substance user and prescription drug current occupational status: disabled Travel in the last 8 weeks: None household members: significant other housing: house current occupational exposures/hazards: No caffeine: No Review of Systems Constitutional Constitutional: Reports anorexia, Reports body ache(s) and Reports fatigue Eyes Eyes: Denies eye discharge, Denies dry eyes, Denies irritation and Denies itchy eyes ENT Ears, Nose, Mouth, and Throat: Denies epistaxis, Denies facial pain, Denies lip swelling and Denies throat swelling *Cardiovascular Cardiovascular: Reports dyspnea and Reports dyspnea on exertion *Respiratory Respiratory: Reports chest congestion, Reports cough, Reports dyspnea, Reports dyspnea on exertion, Reports excessive phlegm production and Denies wheezing *Gastrointestinal Gastrointestinal: Denies abdominal pain, Denies belching and Denies cramping *Musculoskeletal Musculoskeletal: Reports back pain, Reports myalgias and Reports other (No small joint swelling or Pain) Psychiatric Psychiatric: Denies homicidal ideation and Denies suicidal ideation Endocrine Endocrine: Reports fatigue and Denies heat intolerance Hematologic/Lymphatic Hematologic/Lymphatic: Denies easy bleeding and Denies lymphadenopathy Allergic/Immunologic Allergic/Immunologic: Denies itchy eyes, Denies lip swelling, Denies throat swelling and Denies wheezing Pulmonology Exam Inpatient Vital signs and Labs for Last 24 Hours: Temp Pulse Resp BP Pulse Ox O2 Del Method 97.9 F 74 19 105/63 L 95 Room Air 04/10/24 08:00 04/10/24 08:00 04/10/24 08:00 04/10/24 08:00 04/10/24 08:00 04/10/24 08:00 Laboratory Results - last 24 hr 04/09/24 12:45: WBC 15.9 H, RBC 4.37 L, Hgb 14.1, Hct 45.0, MCV 103.1 H, MCH 32.3 H, MCHC 31.3 L, RDW 15.7, Plt Count 155, MPV 8.1, Neut % (Auto) 93.3 H, L ymph % (Auto) 3.9 L, [place] % (Auto) 2.5, Eos % (Auto) 0.1, Baso % (Auto) 0.2, N eut # (Auto) 14.9 H, Lymph # (Auto) 0.6 L, Benton # (Auto) 0.4, Eos # (Auto) 0.0, Baso # (Auto) 0.0, Total Counted 100, Neutrophils % (Manual) 91 H, Lymphocytes % (Manual) 7 L, Monocytes % (Manual) 2, Platelet Estimate Normal, RBC Morphology Not Reportable, Macrocytosis 1+, PT 10.0 L, INR 0.88 L, APTT 34.1 H, Sodium 134 L, Potassium 3.0 L, Chloride 92 L, Carbon Dioxide 36 H, Anion Gap 9.0, BUN 41 H, Creatinine 1.20, Estimated Creat Clear 69, Estimated GFR 64, Est GFR ( Amer) 78, Glucose 140 H, Lactate 2.9 H, Calcium 8.4, Total Bilirubin 0.7, AST 73 H, ALT 24, Alkaline Phosphatase 73, Total Creatine Kinase 60, Total Protein 6.9, Albumin 3.7, Globulin 3.2, Albumin/Globulin Ratio 1.2, Lipase 108, Procalcitonin 8.60 H, HIV 1&2 Antibody Rapid Nonreactive 04/09/24 14:26: Urine Color Yellow, Urine Appearance Clear, Urine pH 7.5, Ur Specific [place] 1.015, Urine Protein 2+ A, Urine Glucose (UA) Negative, Urine Ketones Negative, Urine Blood 2+ A, Urine Nitrate Negative, Urine Bilirubin Negative, Urine Urobilinogen 4.0, Ur Leukocyte Esterase Negative, Urine RBC None, Urine WBC None, Ur Squamous Epith Cells Occasional, Urine Bacteria Trace, Urine Opiates Screen Negative, Urine Methadone Screen Negative, Ur Barbituates Screen Negative, Ur Phencyclidine Scrn Negative, Ur Amphetamines Screen Negative, U Benzodiazepines Scrn Negative, Urine Cocaine Screen Negative, U Marijuana (THC) Screen Negative 04/09/24 17:18: Lactate 1.6 04/09/24 19:01: Chlamy pneumoniae PCR Not detected, Adenovirus (PCR) Not detected, B. pertussis DNA (PCR) Not detected, Coronavirus OC43 (PCR) Not detected, Coronavirus HKU1 (PCR) Not detected, Coronavirus 229E (PCR) Not detected, SARS-CoV-2 (PCR) Not detected, Coronavirus NL63 (PCR) Not detected, Human Metapneumovir PCR Not detected, Influenza A (H1) PCR Not detected, Influ A (H1N1/09) PCR Not detected, Influenza A (H3) PCR Not detected, Influenza Type A (PCR) Not detected, Influenza Type B (PCR) Not detected, M. pneumoniae (PCR) Not detected, Parainfluenza 1 (PCR) Not detected, Parainfluenza 2 (PCR) Not detected, Parainfluenza 3 (PCR) Not detected, Parainfluenza 4 (PCR) Not detected, RSV (PCR) Not detected, Entero/Rhino (PCR) Not detected 04/10/24 05:28: WBC 9.2 D, RBC 3.47 L, Hgb 11.3 L D, Hct 34.1 L, MCV 98.2 H, M CH 31.9 H, MCHC 32.5, RDW 16.0, Plt Count 123 L, MPV 8.0, Neut % (Auto) 89.1 H, Lymph % (Auto) 5.2 L, Benton % (Auto) 5.4, Eos % (Auto) 0.0 L, Baso % (Auto) 0.3, Neut # (Auto) 8.2 H, Lymph # (Auto) 0.5 L, Benton # (Auto) 0.5, Eos # (Auto) 0.0, Baso # (Auto) 0.0, Total Counted 100, Neutrophils % (Manual) 91 H, Lymphocytes % (Manual) 7 L, Monocytes % (Manual) 2, Platelet Estimate Slight decrease, RBC Morphology Normal, Sodium 134 L, Potassium 3.7 D, Chloride 102, Carbon Dioxide 29, Anion Gap 6.7, BUN 32 H, Creatinine 0.80 D, Estimated Creat Clear 107, Estimated GFR 103, Est GFR ( Amer) 124 D, Glucose 121 H, Calcium 7.9 L, Magnesium 2.4 H I & O for Labs for Last 24 Hours: Intake & Output 04/07/24 04/08/24 04/09/24 04/10/24 23:59 23:59 23:59 23:59 Intake Total 1430 / 1430 Output Total 0 / 0 0 / 0 Balance 0 / 1330 1430 / 1430 Weight 141 lb 9 oz 149 lb 2 oz Constitutional: Present moderate distress Head: Present normocephalic and atraumatic ENT: Present normal exam, normal oropharynx and mucous membranes moist Neck: Present normal inspection and full ROM Respiratory: Present respiratory distress, rhonchi, diminished air movement and able to speak in complete sentences; Absent wheezes Cardiac: Present S1/S2, Tachycardia and radial pulses present GI: Present soft and distention; Absent tenderness or guarding Skin: Present intact; Absent cyanosis or jaundice Neuro: Present alert, awake and oriented x 3 Extremities: Present normal inspection; Absent clubbing or cyanosis Psychiatric: Present normal affect and cooperative Meds Home Medications and Allergies Home Medications ?Medication ?Instructions ?Recorded ?Confirmed ?Type buprenorphine 8 mg-naloxone 2 mg 2 tab sublingual DAILY 08/17/22 04/10/24 History sublingual tablet acamprosate 333 mg tablet,delayed 333 mg PO TID 03/13/24 04/10/24 History release aripiprazole 5 mg tablet 5 mg PO DAILY 03/13/24 04/10/24 History buspirone 10 mg tablet 10 mg PO TIDP PRN Anxiety 03/13/24 04/10/24 History mirtazapine 15 mg tablet 15 mg PO HS 03/13/24 04/10/24 History nicotine 21 mg/24 hr daily 1 patch transdermal DAILY 03/13/24 04/10/24 History transdermal patch propranolol 10 mg tablet 10 mg PO TID 03/13/24 04/10/24 History ondansetron 4 mg disintegrating 4 mg PO Q8H PRN nausea and 03/14/24 04/10/24 Rx tablet vomiting #14 tabs pantoprazole 40 mg tablet,delayed 40 mg PO BID 30 days #60 tabs 03/14/24 04/10/24 Rx release sucralfate 1 gram tablet (Carafate) 1 g PO BID PRN abdominal pain #60 03/14/24 04/10/24 Rx tabs New Prescriptions to Start Prescriptions: Allergies Allergy/AdvReac Type Severity Reaction Status Date / Time aspirin [ASPIRIN] Allergy Unknown Verified 01/08/24 10:51 piperacillin [From Zosyn] Allergy Verified 01/08/24 10:51 tazobactam [From Zosyn] Allergy Verified 01/08/24 10:51 Results Laboratory Findings 04/10/24 05:28 04/10/24 05:28 PT/INR, D-dimer PT 10.0 seconds (10.1-12.5) L 04/09/24 12:45 INR 0.88 (0.9-1.1) L 04/09/24 12:45 Abnormal lab findings: Abnormal Labs 04/09/24 04/09/24 04/10/24 12:45 14:26 05:28 WBC 15.9 H RBC 4.37 L 3.47 L Hgb 11.3 L D Hct 34.1 L MCV 103.1 H 98.2 H MCH 32.3 H 31.9 H MCHC 31.3 L Plt Count 123 L Neut % (Auto) 93.3 H 89.1 H Lymph % (Auto) 3.9 L 5.2 L Eos % (Auto) 0.0 L Neut # (Auto) 14.9 H 8.2 H Lymph # (Auto) 0.6 L 0.5 L Neutrophils % (Manual) 91 H 91 H Lymphocytes % (Manual) 7 L 7 L PT 10.0 L INR 0.88 L APTT 34.1 H Sodium 134 L 134 L Potassium 3.0 L Chloride 92 L Carbon Dioxide 36 H BUN 41 H 32 H Glucose 140 H 121 H Lactate 2.9 H Calcium 7.9 L Magnesium 2.4 H AST 73 H Procalcitonin 8.60 H Urine Protein 2+ A Urine Blood 2+ A Assessment and Plan *Assessment and plan (1) Pneumonia: Status: Acute Category: Medical Code(s): J18.9 - Pneumonia, unspecified organism (2) Necrotizing pneumonia: Status: Acute Category: Medical Code(s): J85.0 - Gangrene and necrosis of lung Plan Mr. Dave is a 48-year-old with reported history of asthma on albuterol inhaler on as-needed basis, PUD, gastritis, history of GI bleeds, tobacco and substance abuse presented to ER with worsening respiratory distress along with cough and productive phlegm for the last 3 weeks progressively getting worse. Afebrile. Hemodynamically stable. Neutrophilic predominant leukocytosis upon admission improving. Patient on admission was initiated on vancomycin and cefepime and azithromycin. Prior blood cultures and sputum cultures grew Pseudomonas, enterobacter and Streptococcus sensitive to levofloxacin. CT chest performed on admission dense consolidative airspace disease/necrotizing pneumonia in the right lower lobe. No other airspace disease noted. Left hilar lymphadenopathy noted. Subcarinal calcified lymphadenopathy. No other significant lymphadenopathy appreciated. The noted airspace disease is not present on patient's CT from 03/13/2024. CT chest from November 2023 bilateral patchy airspace disease howeverthis is present on the right lower lobe. On examination rhonchorous breath sounds in right lower lung piña with no significant wheezing noted. Mild respiratory distress. Not needing any oxygen supplementation. Plan: Continue current antibiotics pending culture results. Continue for bronchoscopy airway examination transbronchial biopsy DuoNebs every 6 hours scheduled Follow-up with echocardiogram. # Thank you for involving pulmonary in this patient care. Will continue to follow.
--- NOTE | 2024-04-10 09:20 | CA_ITS ---
APPROVED REPORT EXAM: Comprehensive 2D, Doppler, and color-flow Echocardiogram Forestry Instructor: Jane Rose RT(R) Ht: 5 ft 8 in Wt: 141lbs BSA: 1.76 BP: 105/63 mmHg Indications: smoker, substance abuse, r/o endocarditis, pneumonia 2D Dimensions EF AP4 67.10 % GL Strain -22.6 % M-Mode Dimensions RVDd 2.74 cm (0.9-2.6) LA Diam 3.30 cm (1.9-4.0) LVDd 5.34 cm (3.5-5.7) LVDs 4.27 cm (3.5-5.7) IVSd 0.53 cm (0.6-1.1) PWd 0.78 cm (0.6-1.1) EF (Teich) 40.70% FS 20.00% EDV (Teich) 137.70 mL ESV (Teich) 81.70 mL LV Diastology E Decel Time 183 (160-240 msec) E/A Ratio 1.3 Mitral Valve MV E Max Farhat. 85.0 (40-130 cm/s) MV A Velocity 65.0 (40-130 cm/s) E/A Ratio 1.31 MV PHT 54.0 ms Left Ventricle The left ventricle is normal size. The left ventricular systolic function is normal. The left ventricular ejection fraction is within the normal range. There is normal left ventricular wall thickness. There is normal LV segmental wall motion. The left ventricular diastolic function is normal. LVEF is 55%. Right Ventricle The right ventricle is normal size. The right ventricular systolic function is normal. Atria The left atrium size is normal. The right atrium size is normal. There is no Doppler evidence of interatrial shunt. Aortic Valve The aortic valve is mildly thickened. There is no aortic valvular stenosis. No aortic regurgitation is present. Mitral Valve The mitral valve leaflets are mildly thickened. No evidence of mitral valve stenosis. There is no mitral valve regurgitation noted. Tricuspid Valve The tricuspid valve leaflets are thin and pliable. Trace tricuspid regurgitation. There is insufficient TR jet to estimate RVSP. Pulmonic Valve The pulmonary valve is normal in structure. Trace pulmonic regurgitation. The ascending aorta is not well-visualized. Great Vessels The aortic root is normal in size. IVC is normal in size and collapses >50% with inspiration. Pericardium There is no pericardial effusion. Other Information Study Quality: Technically Difficult Conclusion Technically difficult study due to poor acoustic windows. Normal biventricular systolic function. No significant valvular stenosis or regurgitation. No clear evidence of mobile echodensities or vegetations and this TTE. Note that TTE does not conclusively rule out endocarditis. If clinical concern for endocarditis, further evaluation with LOW may be suggested, if clinically indicated and feasible. Clinical correlation is recommended. Electronically signed by : Danay Meyer MD 04/11/2024 23:55:54
--- NOTE | 2024-04-10 09:21 | HMH.PHAINT1 ---
Pharmacy Intervention Comments: Home medications verified using list from pharmacy and discharge summary from 03/14/24.
[2024-04-10] MEDS: VANCOMYCIN/WATER FOR INJ (PEG) 1.5 GM/300 ML PIGGYBACK IV ×2 (09:30→20:48)
--- NOTE | 2024-04-10 10:37 | EXP.ANES.CKL ---
[facility] Disclaimer: The information contained in this section may have been updated after the patient was seen, as this information can be updated by other users. Medical History (Updated 04/10/24 @ 09:15 by Seb Hadley MD) Necrotizing pneumonia Pneumonia Duodenal ulcer Drug abuse and dependence Back pain Rib pain Shoulder pain Neck pain Acute UTI Back pain Ankle fracture Fracture of distal end of fibula Sinusitis Cellulitis Exposure to COVID-19 virus PTSD (post-traumatic stress disorder) Acute blood loss anemia Anemia Peptic ulcer disease with hemorrhage Chronic pain Anxiety Acute bronchitis Elbow pain, left Acute urinary tract infection Leukocytosis Acute appendicitis High risk medication use Tobacco abuse Asthma exacerbation Depression Anxiety Traumatic brain injury Surgical History History of foot surgery H/O lithotripsy History of appendectomy H/O right knee surgery H/O anterior cruciate ligament surgery Previous back surgery Family History Grandmother Cancer Diabetes Stroke Grandfather Cancer Mother Diabetes Hypertension Social History Smoking Status: Current every day smoker tobacco type: cigarettes packs per day: 1 alcohol intake: current alcohol intake frequency: a few times a week counseling provided: provider counseling substance use type: former substance user and prescription drug current occupational status: disabled Travel in the last 8 weeks: None household members: significant other housing: house current occupational exposures/hazards: No caffeine: No H Anesthesia Checklist Patient Identification Patient Identification: Arm Band and Verbal (Name & ) Structural Data Admitted From: Inpatient (Rm [id number]) Planned Operative Procedure/s: Bronch Consent for Planned Operative Procedure(s) Verified: Yes Verified Documents: Surgical Consent and History and Physical NPO Status Verified Time NPO: 00:00 Chart Verification Results Verified: CBC, BMP, PT, PTT, INR, ECG and Chest Xray Additional verifications Patient : No Anesthesia Reactions: No Hx Blood Transfusions: No Blood Transfusion Reaction: No Cardiovascular Assessment Heart Sounds: S1 & S2 Pulse Rhythm: Irregular Peripheral Edema: No Airway Assessment Mallampati Score:: Class II C-Spine Mobility Assessed: Yes (FROM) TMJ Mobility Assessed: Yes Dentition: Poor Dentition (Severely carried. Many missing. Nothing loose per pt.) Neurological Assessment Level of Consciousness: Awake, Alert, Follows Commands, Inappropriate (Confused) and Disoriented Hx Seizures: Yes Numbness or tingling in extremities: No Anesthesia Plan Anesthesia Risk discussed: Yes Anesthesia Plan: Verified ASA Class: III Anesthesia Type: General
--- NOTE | 2024-04-10 11:55 | EXP.ANES.I ---
[facility] Anesthesia Record Part I Anesthesia Record I Intake, IV Amount: 400 Hydration: Adequate Estimated blood loss (mL): 10 Urine output (mL): 0 Blood Products used (#): none Blood Pressure: 100/62 SaO2: 91 Pulse Rate: 84 Airway Patency: Patent Respiratory Rate: 16 Temperature: 96.8 F Patient is:: Awake (Talking), Nasal O2 (2L/min NC) and Stable Stable to PACU at:: 11:53
--- NOTE | 2024-04-10 12:17 | XR_ITS ---
FINAL REPORT CLINICAL HISTORY: POST BRONCH COMPARISON: 04/09/2024 FINDINGS: CHEST: The heart size is normal. The mediastinum is normal. There is a large rounded opacity in the right lower lung, with margins less distinct than seen on the previous exam of April 09. There is no evidence of pneumothorax post bronchoscopy. There are no pleural effusions. There is no osseous abnormality. IMPRESSION: Large rounded opacity in the right lower lung, with margins less distinct than seen on the previous exam of April 09. No pneumothorax is visualized. Reviewed, Interpreted and Dictated by Rangel Soto MD Transcribed by Rosemary Tsai Authenticated and [facility]
--- NOTE | 2024-04-10 12:31 | EXP.BRONCH.N ---
Procedure: Date: 04/10/24 Patient Date of :: 1975 Procedure Performed:: Bronchoscopy with airway examination, bronchoalveolar lavage and transbronchial lung biopsy Indications:: Necrotizing pneumonia Performing Provider:: Seb Hadley MD Referring Provider:: Dr: Facundo Silver MD Sedation:: General anesthesia Procedure:: Bronchoscopy airway examination, bronchoalveolar lavage and transbronchial lung biopsy: A clean DIAGNOSTIC bronchoscopy was advanced through the ET tube and airways were examined up to subsegmental bronchi. Airways appeared grossly normal, , mucous plugging active bleeding/old blood clots noted. Copious amounts of brown non-impacting thin mucoid secretions were noted in the right lower lobe bronchi, suction. Bronchoalveolar lavage was performed in the RIGHT LOWER LOBE with instillation of 60 cc normal saline with return of 20 cc back. BAL fluid was sent for bacterial fungal and AFB stain and cultures. BAL fluid was not sent for cell count and differential due to scant return. Transbronchial biopsy was performed in the RIGHT RIGHT LOWER LOBE LOBE with a total of 7 biopsies performed, 5 biopsy specimens were sent in formalin for cytopathologic examination. The other 2 biopsy samples, were sent one each in two separate normal saline specimen cups for bacterial fungal and AFB stain cultures. Special request was also made for the pathologist to evaluate for AFB and fungal organisms on the cytopathologic examination. Patient tolerated the procedure with no immediate acute complications. We will follow the patient in pulmonary clinic in 7 to 10 days. Findings:: Please see the procedure note Recommendations:: Postoperative bronchoscopy instructions Please follow the plan as mentioned in today's consultation note Complications:: No acute immediate complication Estimated blood obtained (mL): 2
[2024-04-10] MEDS: ARIPiprazole 10MG TABLET 5 MG PO (12:51)
--- NOTE | 2024-04-10 13:54 | EXP.GE.CONS ---
History of Present Illness *Admission Date: 04/09/24 *History of present illness: Brandon Dave is a 48-year-old male with medical history significant for PUD/gastritis with GI bleeds, current smoker, alcohol use disorder, substance use disorder on Suboxone for nausea/vomiting, worsening cough. Patient states the coughing began about 3 weeks ago, and the nausea/vomiting began about a week ago. He states he stopped drinking about a week ago. He endorses epigastric abdominal pain, with generalized abdominal cramping. Of note, he was recently discharged on 03/14/2024 for upper GI bleed. Workup in the ED significant for heart rate up to 119, BP as low as 99/59, WBC 15.9, hemoglobin 14.1, potassium 3.0, BUN 41, AST ALT 73/24, procalcitonin 8.6. UDS negative. CTA abdomen/pelvis did not reveal acute intra-abdominal findings, but did suggest right lung airspace opacity. Case was discussed with ED provider, and decision was made to admit patient for sepsis from suspected pneumonia. per hospitalist This is a 48-year-old male with a history of chronic alcohol consumption and a history of daily ibuprofen use this past summer. He was hospitalized in November for GI bleed. He underwent EGD with Dr. Nieves 11/2019 he found Schatzki's ring, gastritis, and duodenal ulcer that was oozing status post epinephrine injection. He was unable to place an Endo Clip at the time. He did return to the ER 02/2024 for upper GI bleed with coffee-ground emesis and maroon stools. He was drinking alcohol daily and taking 800 mg of ibuprofen daily. He underwent EGD again with Dr. Nieves who found gastritis as well as 1 cm inflamed duodenal ulcer. The patient was placed on Protonix but unsure of compliance. Patient is still somewhat sedated after bronchoscopy and unable to give an accurate history but can answer some questions. He had continued to drink alcohol. Was having coffee-ground emesis. He returned yesterday to the ER. He is having nausea vomiting epigastric pain coffee-ground emesis and some dark red blood in his vomit. CT scan did note pneumonia and he has been admitted. He did have an elevated BUN but hemoglobin of 14.1. After rehydration that dropped to 11.3. This is consistent with where his hemoglobin was during hospitalization 1 month ago. He has not had vomiting today per nursing staff. He did have a bowel movement yesterday but no obvious signs of melena or hematochezia at the time. [facility] Disclaimer: The information contained in this section may have been updated after the patient was seen, as this information can be updated by other users. Medical History (Updated 04/10/24 @ 13:57 by Yohana Case APRN) Duodenal ulcer Necrotizing pneumonia Pneumonia Drug abuse and dependence Back pain Rib pain Shoulder pain Neck pain Acute UTI Back pain Ankle fracture Fracture of distal end of fibula Sinusitis Cellulitis Exposure to COVID-19 virus PTSD (post-traumatic stress disorder) Acute blood loss anemia Anemia Peptic ulcer disease with hemorrhage Chronic pain Anxiety Acute bronchitis Elbow pain, left Acute urinary tract infection Leukocytosis Acute appendicitis High risk medication use Tobacco abuse Asthma exacerbation Depression Anxiety Traumatic brain injury Surgical History History of foot surgery H/O lithotripsy History of appendectomy H/O right knee surgery H/O anterior cruciate ligament surgery Previous back surgery Family History Grandmother Cancer Diabetes Stroke Grandfather Cancer Mother Diabetes Hypertension Social History Smoking Status: Current every day smoker tobacco type: cigarettes packs per day: 1 alcohol intake: current alcohol intake frequency: a few times a week counseling provided: provider counseling substance use type: former substance user and prescription drug current occupational status: disabled Travel in the last 8 weeks: None household members: significant other housing: house current occupational exposures/hazards: No caffeine: No Review of Systems Review of Systems Review of systems:: unable to obtain Review of systems (narrative): Patient still sedated Constitutional Constitutional: Reports as per HPI Eyes Eyes: Reports as per HPI *Cardiovascular Cardiovascular: Reports as per HPI *Respiratory Respiratory: Reports as per HPI *Gastrointestinal Gastrointestinal: Reports as per HPI *Genitourinary Genitourinary: Reports as per HPI *Musculoskeletal Musculoskeletal: Reports as per HPI Integumentary/Breasts Skin/Breast: Reports as per HPI *Neurologic Neurologic: Reports as per HPI Psychiatric Psychiatric: Reports as per HPI Meds Home Medications and Allergies Home Medications ?Medication ?Instructions ?Recorded ?Confirmed ?Type buprenorphine 8 mg-naloxone 2 mg 2 tab sublingual DAILY 08/17/22 04/10/24 History sublingual tablet acamprosate 333 mg tablet,delayed 333 mg PO TID 03/13/24 04/10/24 History release aripiprazole 5 mg tablet 5 mg PO DAILY 03/13/24 04/10/24 History buspirone 10 mg tablet 10 mg PO TIDP PRN Anxiety 03/13/24 04/10/24 History mirtazapine 15 mg tablet 15 mg PO HS 03/13/24 04/10/24 History nicotine 21 mg/24 hr daily 1 patch transdermal DAILY 03/13/24 04/10/24 History transdermal patch propranolol 10 mg tablet 10 mg PO TID 03/13/24 04/10/24 History ondansetron 4 mg disintegrating 4 mg PO Q8H PRN nausea and 03/14/24 04/10/24 Rx tablet vomiting #14 tabs pantoprazole 40 mg tablet,delayed 40 mg PO BID 30 days #60 tabs 03/14/24 04/10/24 Rx release sucralfate 1 gram tablet (Carafate) 1 g PO BID PRN abdominal pain #60 03/14/24 04/10/24 Rx tabs New Prescriptions to Start Prescriptions: Allergies Allergy/AdvReac Type Severity Reaction Status Date / Time aspirin [ASPIRIN] Allergy Unknown Verified 01/08/24 10:51 piperacillin [From Zosyn] Allergy Verified 01/08/24 10:51 tazobactam [From Zosyn] Allergy Verified 01/08/24 10:51 Exam (Inpt) Vital signs and Labs for Last 24 Hours: Temp Pulse Resp BP Pulse Ox O2 Del Method O2 Flow Rate 98.2 F 81 16 111/76 92 L Room Air 2 04/10/24 12:35 04/10/24 13:20 04/10/24 13:20 04/10/24 13:20 04/10/24 13:20 04/10/24 13:20 04/10/24 13:00 Laboratory Results - last 24 hr 04/09/24 12:45: Total Creatine Kinase 60, Procalcitonin 8.60 H, HIV 1&2 Antibody Rapid Nonreactive 04/09/24 14:26: Urine Color Yellow, Urine Appearance Clear, Urine pH 7.5, Ur Specific [place] 1.015, Urine Protein 2+ A, Urine Glucose (UA) Negative, Urine Ketones Negative, Urine Blood 2+ A, Urine Nitrate Negative, Urine Bilirubin Negative, Urine Urobilinogen 4.0, Ur Leukocyte Esterase Negative, Urine RBC None, Urine WBC None, Ur Squamous Epith Cells Occasional, Urine Bacteria Trace, Urine Opiates Screen Negative, Urine Methadone Screen Negative, Ur Barbituates Screen Negative, Ur Phencyclidine Scrn Negative, Ur Amphetamines Screen Negative, U Benzodiazepines Scrn Negative, Urine Cocaine Screen Negative, U Marijuana (THC) Screen Negative 04/09/24 17:18: Lactate 1.6 04/09/24 19:01: Chlamy pneumoniae PCR Not detected, Adenovirus (PCR) Not detected, B. pertussis DNA (PCR) Not detected, Coronavirus OC43 (PCR) Not detected, Coronavirus HKU1 (PCR) Not detected, Coronavirus 229E (PCR) Not detected, SARS-CoV-2 (PCR) Not detected, Coronavirus NL63 (PCR) Not detected, Human Metapneumovir PCR Not detected, Influenza A (H1) PCR Not detected, Influ A (H1N1/09) PCR Not detected, Influenza A (H3) PCR Not detected, Influenza Type A (PCR) Not detected, Influenza Type B (PCR) Not detected, M. pneumoniae (PCR) Not detected, Parainfluenza 1 (PCR) Not detected, Parainfluenza 2 (PCR) Not detected, Parainfluenza 3 (PCR) Not detected, Parainfluenza 4 (PCR) Not detected, RSV (PCR) Not detected, Entero/Rhino (PCR) Not detected 04/10/24 05:28: WBC 9.2 D, RBC 3.47 L, Hgb 11.3 L D, Hct 34.1 L, MCV 98.2 H, MCH 31.9 H, MCHC 32.5, RDW 16.0, Plt Count 123 L, MPV 8.0, Neut % (Auto) 89.1 H, Lymph % (Auto) 5.2 L, [place] % (Auto) 5.4, Eos % (Auto) 0.0 L, Baso % (Auto) 0.3, Neut # (Auto) 8.2 H, Lymph # (Auto) 0.5 L, [place] # (Auto) 0.5, Eos # (Auto) 0.0, Baso # (Auto) 0.0, Total Counted 100, Neutrophils % (Manual) 91 H, Lymphocytes % (Manual) 7 L, Monocytes % (Manual) 2, Platelet Estimate Slight decrease, RBC Morphology Normal, Sodium 134 L, Potassium 3.7 D, Chloride 102, Carbon Dioxide 29, Anion Gap 6.7, BUN 32 H, Creatinine 0.80 D, Estimated Creat Clear 107, Estimated GFR 103, Est GFR ( Amer) 124 D, Glucose 121 H, Calcium 7.9 L, Magnesium 2.4 H I & O for Labs for Last 24 Hours: Intake & Output 04/08/24 04/09/24 04/10/24 04/11/24 11:59 11:59 11:59 11:59 Intake Total 1830 Output Total 0 Balance 1830 Weight 67.642 kg Microbiology Reports for the Last 24 Hours: Microbiology 04/09/24 13:31 Blood Blood Culture - Preliminary NO GROWTH AFTER 24 HOURS 04/09/24 12:45 Blood Blood Culture - Preliminary NO GROWTH AFTER 24 HOURS Constitutional: no acute distress and chronically ill appearing Comment:: Patient answer some questions but is sedated from recent procedure Head: Present normocephalic and atraumatic Neck: Present normal inspection Respiratory: Present CTA bilaterally; Absent stridor or wheezes Cardiac: Present Reg Rate and Rhythm GI: Present soft and tenderness (Epigastric and left upper quadrant pain to palpate) Rectal (male): Present deferred Skin: Absent jaundice or wounds Comment:: Still somewhat sedated answering some questions Results Labs 04/10/24 05:28 04/10/24 05:28 Labs: Laboratory Results - last 24 hr 04/09/24 12:45: Total Creatine Kinase 60, Procalcitonin 8.60 H, HIV 1&2 Antibody Rapid Nonreactive 04/09/24 14:26: Urine Color Yellow, Urine Appearance Clear, Urine pH 7.5, Ur Specific [place] 1.015, Urine Protein 2+ A, Urine Glucose (UA) Negative, Urine Ketones Negative, Urine Blood 2+ A, Urine Nitrate Negative, Urine Bilirubin Negative, Urine Urobilinogen 4.0, Ur Leukocyte Esterase Negative, Urine RBC None, Urine WBC None, Ur Squamous Epith Cells Occasional, Urine Bacteria Trace, Urine Opiates Screen Negative, Urine Methadone Screen Negative, Ur Barbituates Screen Negative, Ur Phencyclidine Scrn Negative, Ur Amphetamines Screen Negative, U Benzodiazepines Scrn Negative, Urine Cocaine Screen Negative, U Marijuana (THC) Screen Negative 04/09/24 17:18: Lactate 1.6 04/09/24 19:01: Chlamy pneumoniae PCR Not detected, Adenovirus (PCR) Not detected, B. pertussis DNA (PCR) Not detected, Coronavirus OC43 (PCR) Not detected, Coronavirus HKU1 (PCR) Not detected, Coronavirus 229E (PCR) Not detected, SARS-CoV-2 (PCR) Not detected, Coronavirus NL63 (PCR) Not detected, Human Metapneumovir PCR Not detected, Influenza A (H1) PCR Not detected, Influ A (H1N1/09) PCR Not detected, Influenza A (H3) PCR Not detected, Influenza Type A (PCR) Not detected, Influenza Type B (PCR) Not detected, M. pneumoniae (PCR) Not detected, Parainfluenza 1 (PCR) Not detected, Parainfluenza 2 (PCR) Not detected, Parainfluenza 3 (PCR) Not detected, Parainfluenza 4 (PCR) Not detected, RSV (PCR) Not detected, Entero/Rhino (PCR) Not detected 04/10/24 05:28: WBC 9.2 D, RBC 3.47 L, Hgb 11.3 L D, Hct 34.1 L, MCV 98.2 H, MCH 31.9 H, MCHC 32.5, RDW 16.0, Plt Count 123 L, MPV 8.0, Neut % (Auto) 89.1 H, Lymph % (Auto) 5.2 L, [place] % (Auto) 5.4, Eos % (Auto) 0.0 L, Baso % (Auto) 0.3, Neut # (Auto) 8.2 H, Lymph # (Auto) 0.5 L, [place] # (Auto) 0.5, Eos # (Auto) 0.0, Baso # (Auto) 0.0, Total Counted 100, Neutrophils % (Manual) 91 H, Lymphocytes % (Manual) 7 L, Monocytes % (Manual) 2, Platelet Estimate Slight decrease, RBC Morphology Normal, Sodium 134 L, Potassium 3.7 D, Chloride 102, Carbon Dioxide 29, Anion Gap 6.7, BUN 32 H, Creatinine 0.80 D, Estimated Creat Clear 107, Estimated GFR 103, Est GFR ( Amer) 124 D, Glucose 121 H, Calcium 7.9 L, Magnesium 2.4 H Assessment and Plan *Assessment and plan (1) Alcohol abuse: Status: Acute Category: Social Hx Code(s): F10.10 - Alcohol abuse, uncomplicated (2) Hematemesis: Status: Acute Category: Medical Code(s): K92.0 - Hematemesis (3) Esophagitis with gastritis: Status: Acute Category: Medical Code(s): K29.70 - Gastritis, unspecified, without bleeding; K20.90 - Esophagitis, unspecified without bleeding Plan Patient has having coffee-ground emesis and dark red blood with nausea and vomiting epigastric pain has had EGD in November while hospitalized found Schatzki's ring and duodenal ulcer with oozing status post epinephrine. Repeat hospitalization last month, EGD found 1 cm inflamed duodenal ulcer. Patient has been on Protonix but unsure if he has been compliant. Returns again hospitalized with recent coffee-ground emesis nausea vomiting epigastric pain. He needs repeat EGD possibly with Endo Clip. Patient was sedated for bronchoscopy today. Patient will be scheduled for EGD add-on this afternoon with possible Endo Clip placed
--- NOTE | 2024-04-10 14:29 | P.PCN_ITS ---
[facility] Procedure Note Date: 04/10/24 Time: 14:29 Procedure Note:: Upper Endoscopy Procedure Report: Esophagogastroduodenoscopy with Endo Clip placement, cold biopsies and TTS balloon dilation Endoscopost: Daniel Moran II, MD Referring Physician: Tim Rey MD/Facundo Silver MD Date of Procedure: April 10, 2024 Equipment: Olympus GIF 190 standard upper endoscope Sedation: MAC sedation Indications: Mr. Dave is a 48-year-old gentleman with a history of alcohol and drug abuse. He also has chronic NSAID use and a history of peptic ulcer disease and most recently was admitted on March 13 for GI bleed. He had an EGD by Dr. Evan Nieves on 03/14. He was found to have a duodenal ulcer and this was injected with epinephrine with stigmata of possible recent bleeding ( red spot ). He was recently readmitted on 04/09 with nausea, vomiting, epigastric abdominal discomfort. His AST 73 and ALT 24 were mildly raised and he states that he quit alcohol about a week ago. His hemoglobin 11.3 and hematocrit 34.1 are not declined much from recent visit. Patient was having coffee-ground emesis. Procedure: Prior to the procedure, a history and physical exam was performed, and patient's medications and allergies were reviewed. The risks, benefits and alternatives of the sedation and procedure were discussed with the patient. All questions were answered and informed consent was obtained. The patient was brought to the procedure room. Patient identification and proposed procedure were verified by the physician and the nurse. The patient was placed in a left lateral decubitus position and the scope was passed under direct vision. Throughout the procedure, the patient's blood pressure, pulse, and oxygen saturations were monitored continuously. The upper GI endoscopy was accomplished without difficulty. The patient tolerated the procedure well. Findings: The scope was passed directly into the upper esophagus and advanced to the third portion of the duodenum. Upon withdrawal, the third and second portion were normal. In the first portion of the duodenum along the medial wall was a clean-based 11 to 12 mm ulcer with some. There was no evidence of any visible vessel or pigmented spot and no evidence or stigmata of recent bleed. A Mantis clip and larger Endo Clip were placed but the tissue adjacent was friable and hard to embed the clip to closure of the ulcer. The clips were deep enough to close any feeding vessels. The scope was withdrawn through a normal bulb and pylorus into the stomach. There was some pylorospasm. There was mild reactive gastropathy but the remainder of the gastric mucosa was normal. Biopsies were obtained from the antrum and body. Upon retroflexion there was a 2 cm hiatal hernia. There were no gastric varices. The scope was then withdrawn into the esophagus. There was a distal esophageal ring. There were also strong tertiary contractions and evidence of moderate esophageal dysmotility. The entire esophagus was dilated to 20 mm with a TTS hydrostatic balloon. There was no evidence of esophageal varices, reflux esophagitis or Blanchard's. The remainder of the esophageal mucosa was normal. Impression: 1. Clean-based 11 to 12 mm duodenal ulcer (first portion medial wall) status post Endo Clip placement 2. Reactive gastropathy 3. Moderate esophageal dysmotility with distal esophageal ring status post dilation and 2 cm hiatal hernia Plan: I would continue PPI therapy along with misoprostol. The patient is clinically stable and there is no active bleeding. I would advance diet. I will follow-up the biopsies.
[2024-04-10] MEDS: CEFEPIME HCL 2 GM in 0.9 % SODIUM CHLORIDE 100 ML IV ×2 (15:17→22:57)
[2024-04-10] MEDS: LACTATED RINGERS 1000ML 1,000 ML 100 ML IV (15:17)
--- NOTE | 2024-04-10 15:29 | P.PN_ITS ---
Subjective *Date: 04/10/24 *Time: 18:33 Exam Data for Last 24 hours Vital signs and Labs for Last 24 Hours: Temp Pulse Resp BP Pulse Ox O2 Del Method O2 Flow Rate 98.2 F 73 16 95/76 L 92 L Room Air 2 04/10/24 15:10 04/10/24 15:25 04/10/24 15:25 04/10/24 15:25 04/10/24 15:25 04/10/24 15:25 04/10/24 13:00 Laboratory Results - last 24 hr 04/09/24 12:45: Total Creatine Kinase 60, Procalcitonin 8.60 H 04/09/24 14:26: Urine Opiates Screen Negative, Urine Methadone Screen Negative, Ur Barbituates Screen Negative, Ur Phencyclidine Scrn Negative, Ur Amphetamines Screen Negative, U Benzodiazepines Scrn Negative, Urine Cocaine Screen Negative, U Marijuana (THC) Screen Negative 04/09/24 17:18: Lactate 1.6 04/09/24 19:01: Chlamy pneumoniae PCR Not detected, Adenovirus (PCR) Not detected, B. pertussis DNA (PCR) Not detected, Coronavirus OC43 (PCR) Not detected, Coronavirus HKU1 (PCR) Not detected, Coronavirus 229E (PCR) Not detected, SARS-CoV-2 (PCR) Not detected, Coronavirus NL63 (PCR) Not detected, Human Metapneumovir PCR Not detected, Influenza A (H1) PCR Not detected, Influ A (H1N1/09) PCR Not detected, Influenza A (H3) PCR Not detected, Influenza Type A (PCR) Not detected, Influenza Type B (PCR) Not detected, M. pneumoniae (PCR) Not detected, Parainfluenza 1 (PCR) Not detected, Parainfluenza 2 (PCR) Not detected, Parainfluenza 3 (PCR) Not detected, Parainfluenza 4 (PCR) Not detected, RSV (PCR) Not detected, Entero/Rhino (PCR) Not detected 04/10/24 05:28: WBC 9.2 D, RBC 3.47 L, Hgb 11.3 L D, Hct 34.1 L, MCV 98.2 H, MCH 31.9 H, MCHC 32.5, RDW 16.0, Plt Count 123 L, MPV 8.0, Neut % (Auto) 89.1 H, Lymph % (Auto) 5.2 L, [place] % (Auto) 5.4, Eos % (Auto) 0.0 L, Baso % (Auto) 0.3, Neut # (Auto) 8.2 H, Lymph # (Auto) 0.5 L, [place] # (Auto) 0.5, Eos # (Auto) 0.0, Baso # (Auto) 0.0, Total Counted 100, Neutrophils % (Manual) 91 H, Lymphocytes % (Manual) 7 L, Monocytes % (Manual) 2, Platelet Estimate Slight decrease, RBC Morphology Normal, Sodium 134 L, Potassium 3.7 D, Chloride 102, Carbon Dioxide 29, Anion Gap 6.7, BUN 32 H, Creatinine 0.80 D, Estimated Creat Clear 107, Estimated GFR 103, Est GFR ( Amer) 124 D, Glucose 121 H, Calcium 7.9 L, Magnesium 2.4 H I & O for Last 24 hours: Intake & Output 04/07/24 04/08/24 04/09/24 04/10/24 23:59 23:59 23:59 23:59 Intake Total 1830 / 1830 Output Total 0 / 0 0 / 0 Balance 0 / 1330 1830 / 1830 Weight 64.212 kg 67.642 kg Microbiology Reports for the Last 24 Hours: Microbiology 04/10/24 Unknown Transbronchial Biopsy - Right Lower Lobe - Final Not Reportable 04/10/24 Unknown Transbronchial Biopsy - Right Lower Lobe - Final Not Reportable 04/10/24 Unknown Transbronchial Biopsy - Right Lower Lobe - Final Not Reportable 04/10/24 Unknown Transbronchial Biopsy - Right Lower Lobe - Final Not Reportable 04/10/24 Unknown Transbronchial Biopsy - Right Lower Lobe AFB Susceptibility Moxifloxacin - Final Not Reportable 04/10/24 Unknown Transbronchial Biopsy - Right Lower Lobe - Final Not Reportable 04/10/24 Unknown Transbronchial Biopsy - Right Lower Lobe - Final Not Reportable 04/10/24 Unknown Transbronchial Biopsy - Right Lower Lobe - Final Not Reportable 04/10/24 Unknown Transbronchial Biopsy - Right Lower Lobe Microbiology Comment - Final Not Reportable 04/09/24 13:31 Blood Blood Culture - Preliminary NO GROWTH AFTER 24 HOURS 04/09/24 12:45 Blood Blood Culture - Preliminary NO GROWTH AFTER 24 HOURS Constitutional Constitutional: mild distress Comments: Anxious, agitated, confused. *Routine HEENT Exam Head: Present normocephalic Eye: Present EOMI and PERRL ENT: Present mucous membranes moist *Routine Neck Exam Neck: Present supple; Absent lymphadenopathy *Routine Respiratory Exam Respiratory: Present CTA bilaterally *Routine Cardiovascular Exam Cardiovascular: Present RRR *Routine Abdominal Exam Abdominal: Present soft and normoactive bowel sounds; Absent tenderness *Routine Extremities Exam Extremities: Absent cyanosis, clubbing or edema *Routine Skin Exam Skin: Present warm; Absent rash *Routine Neurological Exam Neurological: Present alert Assessment and Plan *Assessment and plan (1) Hypokalemia: Status: Acute Category: Medical Code(s): E87.6 - Hypokalemia (2) Shortness of breath: Status: Acute Category: Medical Code(s): R06.02 - Shortness of breath (3) Hematemesis: Status: Acute Category: Medical Code(s): K92.0 - Hematemesis (4) Sepsis due to pneumonia: Status: Acute Category: Medical Code(s): J18.9 - Pneumonia, unspecified organism; A41.9 - Sepsis, unspecified organism Plan Brandon Dave is a 48-year-old male with medical history significant for PUD/gastritis with GI bleeds, current smoker, alcohol use disorder, substance use disorder on Suboxone for nausea/vomiting, worsening cough. Patient states the coughing began about 3 weeks ago, and the nausea/vomiting began about a week ago. He states he stopped drinking about a week ago. He endorses epigastric abdominal pain, with generalized abdominal cramping. Of note, he was recently discharged on 03/14/2024 for upper GI bleed. Workup in the ED significant for heart rate up to 119, BP as low as 99/59, WBC 15.9, hemoglobin 14.1, potassium 3.0, BUN 41, AST ALT 73/24, procalcitonin 8.6. UDS negative. CTA abdomen/pelvis did not reveal acute intra-abdominal findings, but did suggest right lung airspace opacity. Case was discussed with ED provider, and decision was made to admit patient for sepsis from suspected pneumonia. #Right 10 cm mid lung opacity, necrotizing pneumonia #Suspected hospital-acquired necrotizing pneumonia ? Patient has been having green productive cough for the past 3 weeks since discharge from the hospital. ? He states the right side of his ribs hurt with coughing, and feels like something is pushing into his right ribs. ? CXR reveals 10 cm rounded masslike opacity in the right midlung. ? CT chest suggests 10 cm rounded opacity is highly suggestive of necrotizing pneumonia. ? Blood cultures from 3 weeks ago to show pseudomonal growth. Essentially pansensitive ? Initial WBC 15.9, with tachycardia. Procalcitonin 8.6. Given 2 L of sepsis bolus. ? IV vancomycin, cefepime, Flagyl. Will discontinue vancomycin once MRSA screen results. Will plan to de-escalate to levofloxacin tomorrow after speaking with pulmonology today. ? Follow-up blood cultures, sputum cultures. ? Pulmonology following. Performed bronchoscopy and obtained tissue samples. Appreciate efforts and recommendations. #Pseudomonal bacteremia ? Blood culture 03/13/2024 positive for pseudomonas pseudoalcaligenes. ? Repeat cultures during admission no growth to date 24 hours. ? Continue antibiotics as above. ? Follow-up ECHO to evaluate for vegetation. #Acute COPD exacerbation ? Moderate wheezing on bilateral lung piña on admission. ? DuoNebs as needed, Pulmicort twice daily, IV Solu-Medrol 40 mg daily. ? Viral respiratory panel negative. #Nausea/vomiting #Generalized abdominal pain #Coffee-ground emesis, dark stools ? Patient has a history of PUD, had EGD on revealing 1 cm postbulbar duodenal ulcer without active bleeding. ? Patient states he continues to have intermittent coffee-ground emesis, dark stools. ? Hemoglobin on admission 14.1. ? At the same time, patient has continued to drink alcohol since discharge. He was counseled to subside drinking given PUD. ? He states he stopped drinking about a week ago because he could not keep anything down due to abdominal pain, nausea/vomiting. ? CT abdomen/pelvis did not show acute intra-abdominal findings. ? AST/ALT ratio 73/24 suggestive of alcohol liver disease but not overt hepatitis. ? Dark stools, coffee-ground emesis seem to be chronic in nature as hemoglobin was stable. However, BUN 41 on admission is above his discharge BUN of 35. Improved to 32 today. ? GI consulted, performed EGD 04/10/2024 s/p Endo Clip placement of duodenal ulcer. ? Nausea/vomiting/diarrhea may also be related to alcohol, Suboxone withdrawal. ? IV Zofran as needed. ? IV Protonix 40 mg twice daily. Patient is not tolerating p.o. at this time. ? Continue LR at 75 mL/h until patient can reliably tolerate diet. Currently withdrawing from suspected alcohol and Suboxone. #Alcohol withdrawal #Suboxone withdrawal #Substance use disorder ? Patient is visibly anxious, and endorses hallucinations on admission. Continues to be stable today. ? Patient states last drink was about a week ago, though this does not fit timeline for withdrawals. ? Initiated on CIWA protocol. ? CIWA scores continue to be above 12 today. Switch from Ativan to diazepam today as this has worked better in the past. ? Consider phenobarbital if refractory to benzodiazepines. ? Supplementing with thiamine, multivitamin. ? Resume home Suboxone, likely has not been tolerating it due to nausea/vomiting over the past week #Hypokalemia ? Initial potassium 3.0. replating. Follow-up magnesium. ? Improved to 3.7 today. Full code SCDs
[2024-04-10] MEDS: LORazepam 2MG/ML VIAL 2 MG IV (15:42)
[2024-04-10] MEDS: NICOTINE 21MG/24HR PATCH 21 MG TD (16:19)
[2024-04-10] MEDS: MULTIVITAMIN TABLET 1 EACH PO (16:38)
[2024-04-10] MEDS: miSOPROStoL 200 MCG TABLET PO ×2 (16:38→22:57)
[2024-04-10] MEDS: diazePAM 10MG/2ML SYRINGE 10 MG IV ×2 (16:56→22:27)
--- NOTE | 2024-04-10 17:13 | PC.NURSE ---
PT IS SITTING UP IN THE BED REQUIRING 1:1 OBSERVATION. PT HAS BEEN VERY DISORIENTED SINCE ARRIVING BACK TO THE FLOOR FROM PROCEDURE. PT WILL TELL YOU HIS NAME/ AND IS AWARE HE IS IN THE HOSPITAL HOWEVER IS VERY RESTLESS AND AGITATED. PT HAS STATED SEVERAL TIMES THAT HE NEEDS HIS SUBOXONE AND HAS TO BE FREQUENTLY REMINDED THAT HE HAD IT THIS MORNING. PT IS VERY FIDGETY AND HAS BEEN TALKING TO PEOPLE THAT ARE NOT IN THE ROOM. CIWA SCORE 16. MEDICATED PER AUG. BED ALARM ON. LUNG SOUNDS DIMINISHED WITH SCATTERED RHONCHI. ABDOMEN SOFT/NON TENDER WITH ACTIVE BOWEL SOUNDS. VSS. O2 SATURATION HAS MAINTAINED 90-92% ON 2 L NC. WILL CONTINUE TO MONITOR.
[2024-04-10] MEDS: MIRTAZAPINE 15 MG TABLET PO (21:04)
[2024-04-10] MEDS: ONDANSETRON 4MG/2ML VIAL 4 MG IV (21:06)
[2024-04-10] MEDS: diazePAM 10MG/2ML SYRINGE 5 MG IV (21:07)
[2024-04-10] MEDS: ACETAMINOPHEN 325MG TAB 650 MG PO (22:20)
[2024-04-11] VITALS (11 sets, daily range): BP systolic 115–155; BP diastolic 65–99; PULSE 61–98; RESP 14–21; TEMP 36.6–37.4; O2SAT 93–99; BMI 24.5
[2024-04-11] MEDS: IPRATROPIUM/ALBUTEROL 3 ML NEB IH ×4 (00:05→18:16)
[2024-04-11] MEDS: diazePAM 10MG/2ML SYRINGE 5 MG IV ×4 (01:33→22:47)
[2024-04-11] MEDS: METRONIDAZ/SOD CHL 500 MG/100 ML PIGGYBACK 100 MG IV ×4 (01:33→23:22)
[2024-04-11] MEDS: ACETAMINOPHEN 325MG TAB 650 MG PO (05:04)
[2024-04-11] MEDS: miSOPROStoL 200 MCG TABLET PO ×4 (05:11→23:22)
[2024-04-11] MEDS: CEFEPIME HCL 2 GM in 0.9 % SODIUM CHLORIDE 100 ML IV ×3 (05:16→22:46)
[2024-04-11] MEDS: BUDESONIDE 0.5MG/2ML NEB 0.5 MG IH ×2 (06:44→18:16)
--- NOTE | 2024-04-11 07:38 | EXP.PULM.PN ---
Subjective *Date: 04/11/24 *Time: 08:14 Interval history: No acute respiratory vents overnight. Patient admits improving respiratory symptoms but continued to complaining of cough and productive phlegm. Pulmonology Exam Inpatient Vital signs and Labs for Last 24 Hours: Temp Pulse Resp BP Pulse Ox O2 Del Method O2 Flow Rate 98.7 F 81 14 115/70 97 Room Air 2 04/11/24 04:00 04/11/24 06:42 04/11/24 04:00 04/11/24 04:00 04/11/24 06:42 04/11/24 06:52 04/10/24 18:48 Laboratory Results - last 24 hr 04/10/24 05:28: Total Counted 100, Neutrophils % (Manual) 91 H, Lymphocytes % (Manual) 7 L, Monocytes % (Manual) 2, Platelet Estimate Slight decrease, RBC Morphology Normal Temp Pulse Resp BP Pulse Ox O2 Del Method 97.9 F 74 19 105/63 L 95 Room Air 04/10/24 08:00 04/10/24 08:00 04/10/24 08:00 04/10/24 08:00 04/10/24 08:00 04/10/24 08:00 Laboratory Results - last 24 hr 04/09/24 12:45: WBC 15.9 H, RBC 4.37 L, Hgb 14.1, Hct 45.0, MCV 103.1 H, MCH 32.3 H, MCHC 31.3 L, RDW 15.7, Plt Count 155, MPV 8.1, Neut % (Auto) 93.3 H, Lymph % (Auto) 3.9 L, [place] % (Auto) 2.5, Eos % (Auto) 0.1, Baso % (Auto) 0.2, Neut # (Auto) 14.9 H, Lymph # (Auto) 0.6 L, [place] # (Auto) 0.4, Eos # (Auto) 0.0, Baso # (Auto) 0.0, Total Counted 100, Neutrophils % (Manual) 91 H, Lymphocytes % (Manual) 7 L, Monocytes % (Manual) 2, Platelet Estimate Normal, RBC Morphology Not Reportable, Macrocytosis 1+, PT 10.0 L, INR 0.88 L, APTT 34.1 H, Sodium 134 L, Potassium 3.0 L, Chloride 92 L, Carbon Dioxide 36 H, Anion Gap 9.0, BUN 41 H, Creatinine 1.20, Estimated Creat Clear 69, Estimated GFR 64, Est GFR ( Amer) 78, Glucose 140 H, Lactate 2.9 H, Calcium 8.4, Total Bilirubin 0.7, AST 73 H, ALT 24, Alkaline Phosphatase 73, Total Creatine Kinase 60, Total Protein 6.9, Albumin 3.7, Globulin 3.2, Albumin/Globulin Ratio 1.2, Lipase 108, Procalcitonin 8.60 H, HIV 1&2 Antibody Rapid Nonreactive 04/09/24 14:26: Urine Color Yellow, Urine Appearance Clear, Urine pH 7.5, Ur Specific [place] 1.015, Urine Protein 2+ A, Urine Glucose (UA) Negative, Urine Ketones Negative, Urine Blood 2+ A, Urine Nitrate Negative, Urine Bilirubin Negative, Urine Urobilinogen 4.0, Ur Leukocyte Esterase Negative, Urine RBC None, Urine WBC None, Ur Squamous Epith Cells Occasional, Urine Bacteria Trace, Urine Opiates Screen Negative, Urine Methadone Screen Negative, Ur Barbituates Screen Negative, Ur Phencyclidine Scrn Negative, Ur Amphetamines Screen Negative, U Benzodiazepines Scrn Negative, Urine Cocaine Screen Negative, U Marijuana (THC) Screen Negative 04/09/24 17:18: Lactate 1.6 04/09/24 19:01: Chlamy pneumoniae PCR Not detected, Adenovirus (PCR) Not detected, B. pertussis DNA (PCR) Not detected, Coronavirus OC43 (PCR) Not detected, Coronavirus HKU1 (PCR) Not detected, Coronavirus 229E (PCR) Not detected, SARS-CoV-2 (PCR) Not detected, Coronavirus NL63 (PCR) Not detected, Human Metapneumovir PCR Not detected, Influenza A (H1) PCR Not detected, Influ A (H1N1/09) PCR Not detected, Influenza A (H3) PCR Not detected, Influenza Type A (PCR) Not detected, Influenza Type B (PCR) Not detected, M. pneumoniae (PCR) Not detected, Parainfluenza 1 (PCR) Not detected, Parainfluenza 2 (PCR) Not detected, Parainfluenza 3 (PCR) Not detected, Parainfluenza 4 (PCR) Not detected, RSV (PCR) Not detected, Entero/Rhino (PCR) Not detected 04/10/24 05:28: WBC 9.2 D, RBC 3.47 L, Hgb 11.3 L D, Hct 34.1 L, MCV 98.2 H, MCH 31.9 H, MCHC 32.5, RDW 16.0, Plt Count 123 L, MPV 8.0, Neut % (Auto) 89.1 H, Lymph % (Auto) 5.2 L, [place] % (Auto) 5.4, Eos % (Auto) 0.0 L, Baso % (Auto) 0.3, Neut # (Auto) 8.2 H, Lymph # (Auto) 0.5 L, [place] # (Auto) 0.5, Eos # (Auto) 0.0, Baso # (Auto) 0.0, Total Counted 100, Neutrophils % (Manual) 91 H, Lymphocytes % (Manual) 7 L, Monocytes % (Manual) 2, Platelet Estimate Slight decrease, RBC Morphology Normal, Sodium 134 L, Potassium 3.7 D, Chloride 102, Carbon Dioxide 29, Anion Gap 6.7, BUN 32 H, Creatinine 0.80 D, Estimated Creat Clear 107, Estimated GFR 103, Est GFR ( Amer) 124 D, Glucose 121 H, Calcium 7.9 L, Magnesium 2.4 H I & O for Labs for Last 24 Hours: Intake & Output 04/08/24 04/09/24 04/10/24 04/11/24 23:59 23:59 23:59 23:59 Intake Total 2675 / 2675 Output Total 0 / 0 300 / 300 0 / 0 Balance 0 / 1330 2375 / 2375 0 / 0 Weight 141 lb 9 oz 149 lb 2 oz 162 lb Intake & Output 04/07/24 04/08/24 04/09/24 04/10/24 23:59 23:59 23:59 23:59 Intake Total 1430 / 1430 Output Total 0 / 0 0 / 0 Balance 0 / 1330 1430 / 1430 Weight 141 lb 9 oz 149 lb 2 oz Microbiology Reports for the Last 24 Hours: Microbiology 04/10/24 Unknown Bronchial Lavage - Right Lower Lobe Gram Stain - Final 04/10/24 Unknown Transbronchial Biopsy - Right Lower Lobe Gram Stain - Final 04/10/24 06:30 Sputum - Expectorated Sputum Gram Stain - Final 04/10/24 Unknown Transbronchial Biopsy - Right Lower Lobe - Final Not Reportable 04/10/24 Unknown Transbronchial Biopsy - Right Lower Lobe - Final Not Reportable 04/10/24 Unknown Transbronchial Biopsy - Right Lower Lobe - Final Not Reportable 04/10/24 Unknown Transbronchial Biopsy - Right Lower Lobe - Final Not Reportable 04/10/24 Unknown Transbronchial Biopsy - Right Lower Lobe AFB Susceptibility Moxifloxacin - Final Not Reportable 04/10/24 Unknown Transbronchial Biopsy - Right Lower Lobe - Final Not Reportable 04/10/24 Unknown Transbronchial Biopsy - Right Lower Lobe - Final Not Reportable 04/10/24 Unknown Transbronchial Biopsy - Right Lower Lobe - Final Not Reportable 04/10/24 Unknown Transbronchial Biopsy - Right Lower Lobe Microbiology Comment - Final Not Reportable 04/09/24 13:31 Blood Blood Culture - Preliminary NO GROWTH AFTER 24 HOURS 04/09/24 12:45 Blood Blood Culture - Preliminary NO GROWTH AFTER 24 HOURS Constitutional: Present moderate distress Head: Present normocephalic and atraumatic ENT: Present normal exam, normal oropharynx and mucous membranes moist Neck: Present normal inspection and full ROM Respiratory: Present respiratory distress, rhonchi, diminished air movement and able to speak in complete sentences; Absent wheezes Cardiac: Present S1/S2, Tachycardia and radial pulses present GI: Present soft and distention; Absent tenderness or guarding Skin: Present intact; Absent cyanosis or jaundice Neuro: Present alert, awake and oriented x 3 Extremities: Present normal inspection; Absent clubbing or cyanosis Psychiatric: Present normal affect and cooperative Assessment and Plan *Assessment and plan (1) Pneumonia: Status: Acute Category: Medical Code(s): J18.9 - Pneumonia, unspecified organism (2) Necrotizing pneumonia: Status: Acute Category: Medical Code(s): J85.0 - Gangrene and necrosis of lung Plan Mr. Dave is a 48-year-old with reported history of asthma on albuterol inhaler on as-needed basis, PUD, gastritis, history of GI bleeds, tobacco and substance abuse presented to ER with worsening respiratory distress along with cough and productive phlegm for the last 3 weeks progressively getting worse. Afebrile. Hemodynamically stable. Neutrophilic predominant leukocytosis upon admission improving. Patient on admission was initiated on vancomycin and cefepime and azithromycin. Prior blood cultures and sputum cultures grew Pseudomonas, enterobacter and Streptococcus sensitive to levofloxacin. CT chest performed on admission dense consolidative airspace disease/necrotizing pneumonia in the right lower lobe. No other airspace disease noted. Left hilar lymphadenopathy noted. Subcarinal calcified lymphadenopathy. No other significant lymphadenopathy appreciated. The noted airspace disease is not present on patient's CT from 03/13/2024. CT chest from November 2023 bilateral patchy airspace disease howeverthis is present on the right lower lobe. On initial examination rhonchorous breath sounds in right lower lung piña with no significant wheezing noted. Mild respiratory distress. Not needing any oxygen supplementation. Interval update: Status post bronchoscopy. Tolerated well. No acute respiratory vents overnight. Continue to remain on room air continue to receive vancomycin cefepime and azithromycin. Blood cultures no growth on this admission. Pending echocardiogram report. If echo did not show any concerning vegetations, can be discharged home on Augmentin TID to complete a total of 14-day course. BAL Gram stain no organisms, pending cultures. Plan: Wean antibiotics pending echocardiogram report Advair 250 BID DuoNebs every 6 hours scheduled # Thank you for involving pulmonary in this patient care. Will follow the patient in pulmonary clinic in 5 to 7 days postdischarge.
[2024-04-11] MEDS: NICOTINE 21MG/24HR PATCH 21 MG TD (08:01)
[2024-04-11] MEDS: ARIPiprazole 10MG TABLET 5 MG PO (08:07)
[2024-04-11] MEDS: BUPRENORPHINE/NALOXONE 8MG/2MG ODT 2 EACH SL (08:07)
[2024-04-11] MEDS: THIAMINE 100MG TABLET 100 MG PO (08:08)
[2024-04-11] MEDS: FOLIC ACID 1MG TABLET 1 MG PO (08:08)
[2024-04-11] MEDS: PANTOPRAZOLE 40MG VIAL 40 MG IV ×2 (08:08→20:22)
[2024-04-11] MEDS: FLUTICASONE/SALMETEROL 250/50MCG DISKUS 1 PUFF IH ×2 (08:12→18:17)
[2024-04-11] MEDS: METHYLPREDNISOLONE SOD SUCC 40MG VIAL 40 MG IV (08:13)
[2024-04-11 08:14] LABS: Basophils % 0.3 % (0.1-2.0); Eosinophils % 0.1 % (0.1-12.0); Hematocrit 35.8 % (42.0-52.0); Hemoglobin 11.8 g/dL (14.1-18.0); Lymphocytes # 0.7 K/mm3 (0.7-4.5); Lymphocytes % 7.2 % (10-50); Mean Corpuscular Hemoglobin 32.4 pg (27.0-31.2); Mean Corpuscular Volume 98.3 fl (80-94); Mean Platelet Volume 8.7 fl (7.4-10.4); Monocytes # 0.6 K/mm3 (0.1-1.0); Monocytes % 6.7 % (1.7-9.3); Neutrophils % 85.7 % (37.0-80.0); Platelet Count 124 K/mm3 (142-424); Red Blood Count 3.64 M/mm3 (4.60-6.20); Red Cell Distribution Width 16.2 % (11.5-17.5); White Blood Count 9.4 K/mm3 (4.8-10.8)
[2024-04-11 08:20] LABS: MANUAL DIFFERENTIAL MANUAL DIFFERENTIAL (MANUAL DIFF)
[2024-04-11 08:21] LABS: Chloride 103 mmol/L (98-107)
[2024-04-11 08:22] LABS: Sodium 136 mmol/L (136-145)
[2024-04-11 08:25] LABS: Anion Gap 9.9 mEq/L (5-15); Blood Urea Nitrogen 23 mg/dl (9-20); Calcium 8.4 mg/dl (8.4-10.2); Carbon Dioxide 26 mmol/L (22.0-30.0); Creatinine Clearance Estimated 133 mL/min (50-200); Estimated Glomerular Filt Rate 120 ml/min (>60); GFR (African American) 145 ML/MIN (>60); Glucose 153 mg/dl (74-100)
[2024-04-11 08:27] LABS: Potassium 2.9 mmoL/L (3.5-5.1)
[2024-04-11 08:47] LABS: Vancomycin,Trough 14.7 ug/mL (5.0-10.0)
[2024-04-11 08:54] LABS: Phosphorous 1.3 mg/dl (2.5-4.5)
[2024-04-11] MEDS: VANCOMYCIN/WATER FOR INJ (PEG) 1.5 GM/300 ML PIGGYBACK IV ×2 (10:23→20:22)
[2024-04-11] MEDS: POTASSIUM CHLORIDE 20MEQ TAB 60 MEQ PO (11:40)
[2024-04-11 12:14] LABS: Lymphocytes % 15 % (10-50); Monocytes % 6 % (2-9); Neutrophils % 79 % (42-76); Platelet Estimate Slight Decrease; Target Cells 1+; Total Cells Counted 100
[2024-04-11] MEDS: POTASSIUM PHOSPHATE 15 MMOL in 0.9 % SODIUM CHLORIDE 250 ML 63.75 MMOL IV (12:47)
[2024-04-11 13:50] LABS: Vancomycin,Peak 36.8 ug/ml (11-39)
--- NOTE | 2024-04-11 14:30 | P.PN_ITS ---
Subjective *Date: 04/11/24 *Time: 14:36 Exam Data for Last 24 hours Vital signs and Labs for Last 24 Hours: Temp Pulse Resp BP Pulse Ox O2 Del Method O2 Flow Rate 98.3 F 80 20 140/99 H 99 Room Air 2 04/11/24 12:00 04/11/24 13:00 04/11/24 12:00 04/11/24 12:00 04/11/24 12:00 04/11/24 12:00 04/10/24 18:48 Laboratory Results - last 24 hr 04/11/24 08:05: WBC 9.4, RBC 3.64 L, Hgb 11.8 L, Hct 35.8 L, MCV 98.3 H, MCH 32.4 H, MCHC 33.0, RDW 16.2, Plt Count 124 L, MPV 8.7, Neut % (Auto) 85.7 H, Lymph % (Auto) 7.2 L, [place] % (Auto) 6.7, Eos % (Auto) 0.1, Baso % (Auto) 0.3, Neut # (Auto) 8.0 H, Lymph # (Auto) 0.7, [place] # (Auto) 0.6, Eos # (Auto) 0.0, Baso # (Auto) 0.0, Total Counted 100, Neutrophils % (Manual) 79 H, Lymphocytes % (Manual) 15, Monocytes % (Manual) 6, Platelet Estimate Slight decrease, Target Cells 1+, Sodium 136, Potassium 2.9 L* D, Chloride 103, Carbon Dioxide 26, Anion Gap 9.9, BUN 23 H D, Creatinine 0.70, Estimated Creat Clear 133, Estimated GFR 120, Est GFR ( Amer) 145, Glucose 153 H, Calcium 8.4, Phosphorus 1.3 L, Magnesium 2.0 D, Vancomycin Trough 14.7 H 04/11/24 13:00: Vancomycin Peak 36.8 I & O for Last 24 hours: Intake & Output 04/08/24 04/09/24 04/10/24 04/11/24 23:59 23:59 23:59 23:59 Intake Total 2675 / 2675 660 / 660 Output Total 0 / 0 300 / 300 235 / 235 Balance 0 / 1330 2375 / 2375 425 / 425 Weight 64.212 kg 67.642 kg 73.48 kg Microbiology Reports for the Last 24 Hours: Microbiology 04/09/24 13:31 Blood Blood Culture - Preliminary NO GROWTH AFTER 48 HOURS 04/09/24 12:45 Blood Blood Culture - Preliminary NO GROWTH AFTER 48 HOURS 04/10/24 Unknown Bronchial Lavage - Right Lower Lobe Gram Stain - Final 04/10/24 Unknown Transbronchial Biopsy - Right Lower Lobe Gram Stain - Final 04/10/24 06:30 Sputum - Expectorated Sputum Gram Stain - Final 04/10/24 Unknown Transbronchial Biopsy - Right Lower Lobe - Final Not Reportable 04/10/24 Unknown Transbronchial Biopsy - Right Lower Lobe - Final Not Reportable 04/10/24 Unknown Transbronchial Biopsy - Right Lower Lobe - Final Not Reportable 04/10/24 Unknown Transbronchial Biopsy - Right Lower Lobe - Final Not Reportable 04/10/24 Unknown Transbronchial Biopsy - Right Lower Lobe AFB Susceptibility Moxifloxacin - Final Not Reportable 04/10/24 Unknown Transbronchial Biopsy - Right Lower Lobe - Final Not Reportable 04/10/24 Unknown Transbronchial Biopsy - Right Lower Lobe - Final Not Reportable 04/10/24 Unknown Transbronchial Biopsy - Right Lower Lobe - Final Not Reportable 04/10/24 Unknown Transbronchial Biopsy - Right Lower Lobe Microbiology Comment - Final Not Reportable Constitutional Constitutional: no acute distress *Routine HEENT Exam Head: Present normocephalic Eye: Present EOMI and PERRL ENT: Present mucous membranes moist *Routine Neck Exam Neck: Present supple; Absent lymphadenopathy *Routine Respiratory Exam Respiratory: Present CTA bilaterally *Routine Cardiovascular Exam Cardiovascular: Present RRR *Routine Abdominal Exam Abdominal: Present soft and normoactive bowel sounds; Absent tenderness *Routine Extremities Exam Extremities: Absent cyanosis, clubbing or edema *Routine Skin Exam Skin: Present warm; Absent rash *Routine Neurological Exam Neurological: Present alert Assessment and Plan *Assessment and plan (1) Hypokalemia: Status: Acute Category: Medical Code(s): E87.6 - Hypokalemia (2) Shortness of breath: Status: Acute Category: Medical Code(s): R06.02 - Shortness of breath (3) Hematemesis: Status: Acute Category: Medical Code(s): K92.0 - Hematemesis (4) Sepsis due to pneumonia: Status: Acute Category: Medical Code(s): J18.9 - Pneumonia, unspecified organism; A41.9 - Sepsis, unspecified organism Plan Brandon Dave is a 48-year-old male with medical history significant for PUD/gastritis with GI bleeds, current smoker, alcohol use disorder, substance use disorder on Suboxone for nausea/vomiting, worsening cough. Patient states the coughing began about 3 weeks ago, and the nausea/vomiting began about a week ago. He states he stopped drinking about a week ago. He endorses epigastric abdominal pain, with generalized abdominal cramping. Of note, he was recently discharged on 03/14/2024 for upper GI bleed. Workup in the ED significant for heart rate up to 119, BP as low as 99/59, WBC 15.9, hemoglobin 14.1, potassium 3.0, BUN 41, AST ALT 73/24, procalcitonin 8.6. UDS negative. CTA abdomen/pelvis did not reveal acute intra-abdominal findings, but did suggest right lung airspace opacity. Case was discussed with ED provider, and decision was made to admit patient for sepsis from suspected pneumonia. #Right 10 cm mid lung opacity, necrotizing pneumonia #Suspected hospital-acquired necrotizing pneumonia ? Patient has been having green productive cough for the past 3 weeks since discharge from the hospital. ? He states the right side of his ribs hurt with coughing, and feels like something is pushing into his right ribs. ? CXR reveals 10 cm rounded masslike opacity in the right midlung. ? CT chest suggests 10 cm rounded opacity is highly suggestive of necrotizing pneumonia. ? Blood cultures from 3 weeks ago to show pseudomonal growth. Essentially pansensitive ? Initial WBC 15.9, with tachycardia. Procalcitonin 8.6. Given 2 L of sepsis bolus. ? WBC improving to 9.4. ? Patient states he feels better today, coughing less. ? IV vancomycin, cefepime, Flagyl. Will discontinue vancomycin once MRSA screen results. Will plan to de-escalate to levofloxacin tomorrow per discussion with pulmonology. ? Follow-up blood NGTD 48 hours, sputum cultures. ? Pulmonology following. Performed bronchoscopy and obtained tissue samples. Appreciate efforts and recommendations. #Pseudomonal bacteremia, resolved ? Blood culture 03/13/2024 positive for pseudomonas pseudoalcaligenes. ? Repeat cultures during admission no growth to date 48 hours. ? Follow-up ECHO to evaluate for vegetation. #Acute COPD exacerbation ? Moderate wheezing on bilateral lung piña on admission. ? DuoNebs as needed, Pulmicort twice daily, IV Solu-Medrol 40 mg daily. ? Viral respiratory panel negative. #Nausea/vomiting #Generalized abdominal pain #Coffee-ground emesis, dark stools ? Patient has a history of PUD, had EGD on revealing 1 cm postbulbar duodenal ulcer without active bleeding. ? Patient states he continues to have intermittent coffee-ground emesis, dark stools. ? Hemoglobin on admission 14.1. Likely hemoconcentrated, as it has been stable around 11.5 ? At the same time, patient has continued to drink alcohol since discharge. He was counseled to subside drinking given PUD. ? He states he stopped drinking about a week ago because he could not keep anything down due to abdominal pain, nausea/vomiting. ? CT abdomen/pelvis did not show acute intra-abdominal findings. ? AST/ALT ratio 73/24 suggestive of alcohol liver disease but not overt hepatiti s. ? Dark stools, coffee-ground emesis seem to be chronic in nature as hemoglobin was stable. However, BUN 41 on admission is above his discharge BUN of 35. Improved to 32 today. ? GI consulted, performed EGD 04/10/2024 s/p Endo Clip placement of duodenal ulcer. ? Nausea/vomiting/diarrhea may also be related to alcohol, Suboxone withdrawal. ? IV Zofran as needed. ? IV Protonix 40 mg twice daily. Plan to switch to oral tomorrow once withdrawal resolves as below. #Alcohol withdrawal #Suboxone withdrawal #Substance use disorder ? Patient was visibly anxious, and endorses hallucinations on admission. However, much more stable today as withdrawal is improving. ? Patient states last drink was about a week ago before admission, though this does not fit timeline for withdrawals. ? Initiated on CIWA protocol. Diazepam as needed ? CIWA scores improved to less than 10 today, but still scoring around 8. ? Consider phenobarbital if refractory to benzodiazepines. ? Supplementing with thiamine, multivitamin. ? Resume home Suboxone, likely has not been tolerating it due to nausea/vomiting over the past week before admission. ? Continuous telemetry. #Hypokalemia ? Initial potassium 3.0. replating. Follow-up magnesium. ? Potassium 2.9, phosphorus 1.3. Magnesium normal 2.0. ? Repleting with IV potassium phosphate. #Severe malnutrition ? Nutrition is consulted, started meal supplementation. Full code SCDs
--- NOTE | 2024-04-11 15:00 | EXP.PHA.CONS ---
Pharmacy Consult Date: 04/11/24 Time: 15:01 Referring provider: DR. ABDALLA Reason for Consult:: VANCOMYCIN LEVELS Allergies Allergy/AdvReac Type Severity Reaction Status Date / Time aspirin [ASPIRIN] Allergy Unknown Verified 01/08/24 10:51 piperacillin [From Zosyn] Allergy Verified 01/08/24 10:51 tazobactam [From Zosyn] Allergy Verified 01/08/24 10:51 Home Medications ?Medication ?Instructions ?Recorded ?Confirmed ?Type buprenorphine 8 mg-naloxone 2 mg 2 tab sublingual DAILY 08/17/22 04/10/24 History sublingual tablet acamprosate 333 mg tablet,delayed 333 mg PO TID 03/13/24 04/10/24 History release aripiprazole 5 mg tablet 5 mg PO DAILY 03/13/24 04/10/24 History buspirone 10 mg tablet 10 mg PO TIDP PRN Anxiety 03/13/24 04/10/24 History mirtazapine 15 mg tablet 15 mg PO HS 03/13/24 04/10/24 History nicotine 21 mg/24 hr daily 1 patch transdermal DAILY 03/13/24 04/10/24 History transdermal patch propranolol 10 mg tablet 10 mg PO TID 03/13/24 04/10/24 History ondansetron 4 mg disintegrating 4 mg PO Q8H PRN nausea and 03/14/24 04/10/24 Rx tablet vomiting #14 tabs pantoprazole 40 mg tablet,delayed 40 mg PO BID 30 days #60 tabs 03/14/24 04/10/24 Rx release sucralfate 1 gram tablet (Carafate) 1 g PO BID PRN abdominal pain #60 03/14/24 04/10/24 Rx tabs New Prescriptions to Start Prescriptions: Height: 1.73 m Weight: 73.48 kg Laboratory Results:: Laboratory Results - last 24 hr 04/11/24 08:05: WBC 9.4, RBC 3.64 L, Hgb 11.8 L, Hct 35.8 L, MCV 98.3 H, MCH 32.4 H, MCHC 33.0, RDW 16.2, Plt Count 124 L, MPV 8.7, Neut % (Auto) 85.7 H, Lymph % (Auto) 7.2 L, [place] % (Auto) 6.7, Eos % (Auto) 0.1, Baso % (Auto) 0.3, Neut # (Auto) 8.0 H, Lymph # (Auto) 0.7, [place] # (Auto) 0.6, Eos # (Auto) 0.0, Baso # (Auto) 0.0, Total Counted 100, Neutrophils % (Manual) 79 H, Lymphocytes % (Manual) 15, Monocytes % (Manual) 6, Platelet Estimate Slight decrease, Target Cells 1+, Sodium 136, Potassium 2.9 L* D, Chloride 103, Carbon Dioxide 26, Anion Gap 9.9, BUN 23 H D, Creatinine 0.70, Estimated Creat Clear 133, Estimated GFR 120, Est GFR ( Amer) 145, Glucose 153 H, Calcium 8.4, Phosphorus 1.3 L, Magnesium 2.0 D, Vancomycin Trough 14.7 H 04/11/24 13:00: Vancomycin Peak 36.8 Medical History: Medical History (Updated 04/10/24 @ 13:57 by Yohana Case, JONATHAN) Duodenal ulcer Necrotizing pneumonia Pneumonia Drug abuse and dependence Back pain Rib pain Shoulder pain Neck pain Acute UTI Back pain Ankle fracture Fracture of distal end of fibula Sinusitis Cellulitis Exposure to COVID-19 virus PTSD (post-traumatic stress disorder) Acute blood loss anemia Anemia Peptic ulcer disease with hemorrhage Chronic pain Anxiety Acute bronchitis Elbow pain, left Acute urinary tract infection Leukocytosis Acute appendicitis High risk medication use Tobacco abuse Asthma exacerbation Depression Anxiety Traumatic brain injury Assessment and Plan Assessment and plan all Dx Assessment and Plan for all problems:: PATIENT'S VANCOMYCIN TROUGH LEVELS WERE 14.7 MCG/ML AND 36.8 MCG/ML FOR TROUGH AND PEAK, RESPECTIVELY. RECOMMEND CONTINUING WITH CURRENT DOSE OF VANCOMYCIN 1500 MG Q12H AT THIS TIME.
[2024-04-11] MEDS: diazePAM 10MG/2ML SYRINGE 10 MG IV ×2 (16:41→20:22)
[2024-04-11] MEDS: MULTIVITAMIN TABLET 1 EACH PO (16:48)
--- NOTE | 2024-04-11 18:27 | PC.NURSE ---
PRN VALIUM PER MAR BASED ON CIWA SCALE. MILD HALLUCINATIONS TODAY. NOT REQUIRING O2 SUPPORT. TOLERATING DIET WELL.
[2024-04-11 19:18] LABS: HCV Ab Reactive (Non Reactive)
[2024-04-11] MEDS: MIRTAZAPINE 15 MG TABLET PO (20:21)
[2024-04-12] VITALS (13 sets, daily range): BP systolic 115–146; BP diastolic 60–90; PULSE 58–100; RESP 17–18; TEMP 36.6–37; O2SAT 91–98; BMI 23.5
[2024-04-12] MEDS: IPRATROPIUM/ALBUTEROL 3 ML NEB IH ×4 (00:49→18:15)
[2024-04-12] MEDS: CEFEPIME HCL 2 GM in 0.9 % SODIUM CHLORIDE 100 ML IV ×2 (05:48→14:53)
[2024-04-12] MEDS: miSOPROStoL 200 MCG TABLET PO ×4 (05:48→22:03)
[2024-04-12] MEDS: FLUTICASONE/SALMETEROL 250/50MCG DISKUS 1 PUFF IH ×2 (06:39→18:36)
[2024-04-12] MEDS: BUDESONIDE 0.5MG/2ML NEB 0.5 MG IH ×2 (06:39→18:15)
--- NOTE | 2024-04-12 06:46 | PC.NURSE ---
Pt is A&OX4 and has tolerated room air. At the start of the shift pt was having mild hallucinations and scored a 16 on CIWA. On next check scored a 9. PRN Valium was given. He has not required any since. He has ambulated to the bathroom with standby assist. He has been tolerating antibiotics. Family has been at bedside throughout the shift. No complaints at this time, call light within reach.
[2024-04-12 07:05] LABS: Chloride 108 mmol/L (98-107); Potassium 3.9 mmoL/L (3.5-5.1); Sodium 141 mmol/L (136-145)
[2024-04-12 07:06] LABS: Basophils % 0.2 % (0.1-2.0); Hematocrit 35.9 % (42.0-52.0); Hemoglobin 11.3 g/dL (14.1-18.0); Lymphocytes # 1.2 K/mm3 (0.7-4.5); Lymphocytes % 14.6 % (10-50); Mean Corpuscular HGB Conc 31.6 g/dL (31.8-35.4); Mean Corpuscular Hemoglobin 31.7 pg (27.0-31.2); Mean Corpuscular Volume 100.5 fl (80-94); Mean Platelet Volume 8.7 fl (7.4-10.4); Monocytes # 0.7 K/mm3 (0.1-1.0); Monocytes % 8.5 % (1.7-9.3); Neutrophils # 6.3 K/mm3 (1.8-7.8); Neutrophils % 76.6 % (37.0-80.0); Platelet Count 173 K/mm3 (142-424); Red Blood Count 3.57 M/mm3 (4.60-6.20); Red Cell Distribution Width 16.4 % (11.5-17.5); White Blood Count 8.2 K/mm3 (4.8-10.8)
[2024-04-12 07:08] LABS: Anion Gap 7.9 mEq/L (5-15); Blood Urea Nitrogen 21 mg/dl (9-20); Carbon Dioxide 29 mmol/L (22.0-30.0); Creatinine Clearance Estimated 127 mL/min (50-200); Estimated Glomerular Filt Rate 120 ml/min (>60); GFR (African American) 145 ML/MIN (>60); Glucose 94 mg/dl (74-100); Magnesium 1.8 mg/dl (1.6-2.3)
[2024-04-12 07:09] LABS: Calcium 8.6 mg/dl (8.4-10.2)
[2024-04-12] MEDS: NICOTINE 21MG/24HR PATCH 21 MG TD (07:16)
[2024-04-12 07:38] LABS: Phosphorous 1.8 mg/dl (2.5-4.5)
--- NOTE | 2024-04-12 07:40 | PC.NURSE ---
called to be made aware of critical lab result of phosphorus of 1.8. no new orders at this time.
--- NOTE | 2024-04-12 07:57 | PC.NURSE ---
alerted nurse about elevated b/p
[2024-04-12] MEDS: FOLIC ACID 1MG TABLET 1 MG PO (08:50)
[2024-04-12] MEDS: METHYLPREDNISOLONE SOD SUCC 40MG VIAL 40 MG IV (08:50)
[2024-04-12] MEDS: THIAMINE 100MG TABLET 100 MG PO (08:50)
[2024-04-12] MEDS: METRONIDAZ/SOD CHL 500 MG/100 ML PIGGYBACK 100 MG IV (08:50)
[2024-04-12] MEDS: ARIPiprazole 10MG TABLET 5 MG PO (08:50)
[2024-04-12] MEDS: BUPRENORPHINE/NALOXONE 8MG/2MG ODT 2 EACH SL (08:52)
[2024-04-12] MEDS: PANTOPRAZOLE 40MG VIAL 40 MG IV ×2 (08:53→21:57)
[2024-04-12] MEDS: VANCOMYCIN/WATER FOR INJ (PEG) 1.5 GM/300 ML PIGGYBACK IV (10:11)
[2024-04-12] MEDS: diazePAM 10MG/2ML SYRINGE 5 MG IV ×3 (10:11→21:58)
--- NOTE | 2024-04-12 10:50 | ECG_ITS ---
APPROVED REPORT Exam: Resting ECG HR:58 bpm ECG Measurements Heart Rate 58 AXES HI 137 P 5 QRSd 115 QRS 44 QT 424 T 53 QTc 421 Conclusion SINUS BRADYCARDIA WITH SINUS ARRHYTHMIA MODERATE INTRAVENTRICULAR CONDUCTION DELAY [110+ ms QRS DURATION] BORDERLINE ECG UNCONFIRMED REPORT Electronically signed by : Aj Valentine MD 04/13/2024 13:54:05
[2024-04-12] MEDS: POTASSIUM PHOSPHATE 9 MMOL in 0.9 % SODIUM CHLORIDE 250 ML 63.75 MMOL IV (12:19)
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
--- NOTE | 2024-04-12 15:35 | P.PN_ITS ---
Subjective *Date: 04/12/24 *Time: 15:35 Interval history: Patient is very pleasant, states he feels much better today, not hallucinating. Has had 2 positive blood cultures in the past 4 months. States he is never used IV drugs. Denies chest pain, shortness of breath. Exam Data for Last 24 hours Vital signs and Labs for Last 24 Hours: Temp Pulse Resp BP Pulse Ox O2 Del Method O2 Flow Rate 98.3 F 78 17 136/83 97 Room Air 2 04/12/24 15:13 04/12/24 15:13 04/12/24 15:13 04/12/24 15:13 04/12/24 15:13 04/12/24 12:49 04/10/24 18:48 Laboratory Results - last 24 hr 04/09/24 12:45: Hepatitis C Antibody Reactive A, Hep C Ab Comment Comment, HCV Quantitation Hcv not detected, HCV log10 Confirmation TNP, Hepatitis C Interp Comment 04/12/24 06:46: WBC 8.2, RBC 3.57 L, Hgb 11.3 L, Hct 35.9 L, MCV 100.5 H, MCH 31.7 H, MCHC 31.6 L, RDW 16.4, Plt Count 173 D, MPV 8.7, Neut % (Auto) 76.6, Lymph % (Auto) 14.6, [place] % (Auto) 8.5, Eos % (Auto) 0.0 L, Baso % (Auto) 0.2, Neut # (Auto) 6.3, Lymph # (Auto) 1.2, [place] # (Auto) 0.7, Eos # (Auto) 0.0, Baso # (Auto) 0.0, Sodium 141, Potassium 3.9 D, Chloride 108 H, Carbon Dioxide 29, Anion Gap 7.9, BUN 21 H, Creatinine 0.70, Estimated Creat Clear 127, Estimated GFR 120, Est GFR ( Amer) 145, Glucose 94 D, Calcium 8.6, Phosphorus 1.8 L D, Magnesium 1.8 I & O for Last 24 hours: Intake & Output 04/09/24 04/10/24 04/11/24 04/12/24 23:59 23:59 23:59 23:59 Intake Total 2675 / 2675 2669 / 2669 1300 / 1300 Output Total 0 / 0 300 / 300 235 / 235 Balance 0 / 1330 2375 / 2375 2434 / 2434 1300 / 1300 Weight 64.212 kg 67.642 kg 73.48 kg 70.335 kg Microbiology Reports for the Last 24 Hours: Microbiology 04/10/24 Unknown Transbronchial Biopsy - Right Lower Lobe Gram Stain - Final 04/10/24 Unknown Transbronchial Biopsy - Right Lower Lobe Surgical Biopsy Culture - Preliminary NO GROWTH AFTER 48 HOURS 04/10/24 13:35 Nose MRSA Culture - Final 04/10/24 06:30 Sputum - Expectorated Sputum Gram Stain - Final 04/10/24 06:30 Sputum - Expectorated Sputum Sputum Culture - Preliminary 04/09/24 13:31 Blood Blood Culture - Preliminary NO GROWTH AFTER 48 HOURS 04/09/24 12:45 Blood Blood Culture - Preliminary NO GROWTH AFTER 48 HOURS Constitutional Constitutional: no acute distress *Routine HEENT Exam Head: Present normocephalic Eye: Present EOMI and PERRL ENT: Present mucous membranes moist *Routine Neck Exam Neck: Present supple; Absent lymphadenopathy *Routine Respiratory Exam Respiratory: Present rhonchi and wheezes; Absent CTA bilaterally *Routine Cardiovascular Exam Cardiovascular: Present RRR *Routine Abdominal Exam Abdominal: Present soft and normoactive bowel sounds; Absent tenderness *Routine Extremities Exam Extremities: Absent cyanosis, clubbing or edema *Routine Skin Exam Skin: Present warm; Absent rash *Routine Neurological Exam Neurological: Present alert Assessment and Plan *Assessment and plan (1) Hypokalemia: Status: Acute Category: Medical Code(s): E87.6 - Hypokalemia (2) Shortness of breath: Status: Acute Category: Medical Code(s): R06.02 - Shortness of breath (3) Hematemesis: Status: Acute Category: Medical Code(s): K92.0 - Hematemesis (4) Sepsis due to pneumonia: Status: Acute Category: Medical Code(s): J18.9 - Pneumonia, unspecified organism; A41.9 - Sepsis, unspecified organism Plan Brandon Dave is a 48-year-old male with medical history significant for PUD/gastritis with GI bleeds, current smoker, alcohol use disorder, substance use disorder on Suboxone for nausea/vomiting, worsening cough. Patient states the coughing began about 3 weeks ago, and the nausea/vomiting began about a week ago. He states he stopped drinking about a week ago. He endorses epigastric abdominal pain, with generalized abdominal cramping. Of note, he was recently discharged on 03/14/2024 for upper GI bleed. Workup in the ED significant for heart rate up to 119, BP as low as 99/59, WBC 15.9, hemoglobin 14.1, potassium 3.0, BUN 41, AST ALT 73/24, procalcitonin 8.6. UDS negative. CTA abdomen/pelvis did not reveal acute intra-abdominal findings, but did suggest right lung airspace opacity. Case was discussed with ED provider, and decision was made to admit patient for sepsis from suspected pneumonia. #Right 10 cm mid lung opacity, necrotizing pneumonia #Suspected hospital-acquired necrotizing pneumonia ? Patient has been having green productive cough for the past 3 weeks since discharge from the hospital. ? He states the right side of his ribs hurt with coughing, and feels like something is pushing into his right ribs. ? CXR reveals 10 cm rounded masslike opacity in the right midlung. ? CT chest suggests 10 cm rounded opacity is highly suggestive of necrotizing pneumonia. ? Blood cultures from 3 weeks ago to show pseudomonal growth. Essentially pansensitive ? Initial WBC 15.9, with tachycardia. Procalcitonin 8.6. Given 2 L of sepsis bolus. ? WBC resolved to 8.2 today. ? Patient continues to say he feels better today, coughing less. ? Started levofloxacin 750 mg daily. IV vancomycin, cefepime, Flagyl discontinued, MRSA screen negative. ? Follow-up blood NGTD 48 hours, sputum cultures. ? Pulmonology following. Performed bronchoscopy and obtained tissue samples. Appreciate efforts and recommendations as above. #Pseudomonal bacteremia, resolved ? Blood culture 03/13/2024 positive for pseudomonas pseudoalcaligenes. ? Repeat cultures during admission no growth to date 48 hours. ? TTE did not show vegetation. ? However given recurrent positive blood cultures in the past 6 months, we will follow-up with LOW on Sunday. ? Patient states he has never used IV drugs. #Alcohol withdrawal #Suboxone withdrawal #Substance use disorder ? Patient was visibly anxious, and endorses hallucinations on admission. However, much more stable today as withdrawal is improving. ? Patient states last drink was about a week ago before admission, though this does not fit timeline for withdrawals. ? Initiated on CIWA protocol. Diazepam as needed ? CIWA scores improved to less than 10 today, but still scoring around 8. ? Consider phenobarbital if refractory to benzodiazepines. ? Supplementing with thiamine, multivitamin. ? Resume home Suboxone, likely has not been tolerating it due to nausea/vomiting over the past week before admission. #Acute COPD exacerbation ? Moderate wheezing on bilateral lung piña on admission. ? DuoNebs as needed, Pulmicort twice daily. ? Plan to discontinue Solu-Medrol tomorrow after 5 days therapy. ? Viral respiratory panel negative. #Nausea/vomiting #Generalized abdominal pain #Coffee-ground emesis, dark stools ? Patient has a history of PUD, had EGD on revealing 1 cm postbulbar duodenal ulcer without active bleeding. ? Patient states he continues to have intermittent coffee-ground emesis, dark stools. ? Hemoglobin on admission 14.1. Likely hemoconcentrated, as it has been stable around 11.5 ? At the same time, patient has continued to drink alcohol since discharge. He was counseled to subside drinking given PUD. ? He states he stopped drinking about a week ago because he could not keep anything down due to abdominal pain, nausea/vomiting. ? CT abdomen/pelvis did not show acute intra-abdominal findings. ? AST/ALT ratio 73/24 suggestive of alcohol liver disease but not overt hepatitis. ? Dark stools, coffee-ground emesis seem to be chronic in nature as hemoglobin was stable. However, BUN 41 on admission is above his discharge BUN of 35. Improved to 32 today. ? GI consulted, performed EGD 04/10/2024 s/p Endo Clip placement of duodenal ulcer. ? Nausea/vomiting/diarrhea may also be related to alcohol, Suboxone withdrawal. ? IV Zofran as needed. ? IV Protonix 40 mg twice daily. Plan to switch to oral tomorrow once withdrawal resolves as below. ? Continuous telemetry. #Hypokalemia ? Initial potassium 3.0. replating. Follow-up magnesium. ? Potassium 2.9, phosphorus 1.3. Magnesium normal 2.0. ? Repleting with IV potassium phosphate. #Severe malnutrition ? Nutrition is consulted, started meal supplementation. Full code SCDs
--- NOTE | 2024-04-12 16:22 | PC.NURSE ---
pt has remained alert and oriented this shift. CIWA scales have not exceeded 8 this shift. pt requested that there be no visitors except the ones listed at end of this note. visitor sign was placed on door. pt has remained on room air. phosphorus levels were low this a.m., however pt received potassium phosphate via IV (see MAR). possible LOW is to be done tomorrow to find source of infection. no new orders at this time. call light within reach. Accepted Visitors per Patient: - Sydni Santoro - Joao Rod
[2024-04-12] MEDS: MULTIVITAMIN TABLET 1 EACH PO (17:15)
--- NOTE | 2024-04-12 18:46 | PEERSUPPORT ---
Peer Support Note Patient Information Patient Information: DOS: 04/12/2024 ? Reason: AUD/Ps Follow up ? Pt states he is having anxiety and feeling overwhelmed kayce on by his friends and lady who was with him yesterday. He is becoming agitated with his phone ringing constantly and stressed that they will come to the hospital. He shares briefly of the relationship between them all and has no responsibility or obligation to either of them. ? Ps discusses healthy communication with being assertive considering priority of his health and wellbeing. ? Pt is concerned they will go to his house. Solution: Pt to call his landlord to make aware of situation and to be watchful. ? Ps facilitates discussion to help patient identify their treatment priorities and educating the pt on his role of his treatment with responsibility to receive the best care as well as quality of life overall without alcohol. ? -Lifestyle: People, places, things that are triggering or bring temptation. -Diet: Mindfulness of eating habits -Mental Health: Process thoughts and emotions openly and honest through services offered at [facility] or trusted social support with his best interest. -Emotional Health: Processing grief without alcohol accepting help from professionals. -Physical Health- Attend follow up provider appointments; take medication as directed. Pt understands the severity of his health, and risk invovled with continuing to drink including his lifestyle without making changes. Pt hesitantly shares he is seeing a cat in his room and a dog that is laying on the chair panting. Ps normalizes these symptoms of alcohol withdrawls to pt through explaining the CIWA and reasons for sharing these with the nurse or providers for his treatment. Pt contacts nurse to make aware of these issues for CIWA assessment. 7:45PM- Ps Check-in Pt is resting and wakes up. He states he does want to take a shower when he gets fully woke up. Ps and pt discuss briefly his mental and emotional states since practicing assertiveness with the people in his life who were bringing him stress. Pt openly shares with ps fostering healthy relationship focused on building hope for recovery without judgment. Pt is feeling more confident in saying no and building awareness to using his voice to set boundaries without feeling guilty. Ps provides positive feedback on strengths from his recent actions building self-esteem. Pt expresses gratitude to his treatment staff and providers, accepting that he will be in the hospital for longer than he initially thought but willing to due to his level of care needed. Ps will continue to follow up with Pt. Thank you for allowing [facility] to assist in caring for the patient!
[2024-04-12] MEDS: SODIUM CHLORIDE 0.9% 10ML VIAL 10 ML IV (21:57)
[2024-04-12] MEDS: ACETAMINOPHEN 325MG TAB 650 MG PO (21:57)
[2024-04-12] MEDS: MIRTAZAPINE 15 MG TABLET PO (21:58)
[2024-04-13] VITALS (8 sets, daily range): BP systolic 116–145; BP diastolic 72–89; PULSE 60–90; RESP 16–20; TEMP 36.6–36.9; O2SAT 94–99; BMI 24.1
--- NOTE | 2024-04-13 05:12 | PC.NURSE ---
patient is alert and oriented, ambulates to and from bathroom with standby assist. patient has reported some hallucination this shift, patient stated he kept seeing a cat in the window , patient also reported see bugs crawling on his pillow. patient was given valium per AUG. patient has complained of a headache and was given prn tylenol per AUG with favorable outcome. patient is tolerating room air with O2 sats 97-98%. call button is in reach, seizure pads in place, bed in lowest position and wheels locked.
[2024-04-13] MEDS: miSOPROStoL 200 MCG TABLET PO ×4 (06:00→22:52)
[2024-04-13] MEDS: IPRATROPIUM/ALBUTEROL 3 ML NEB IH ×2 (06:09→11:23)
[2024-04-13] MEDS: BUDESONIDE 0.5MG/2ML NEB 0.5 MG IH (06:09)
[2024-04-13] MEDS: FLUTICASONE/SALMETEROL 250/50MCG DISKUS 1 PUFF IH (06:09)
[2024-04-13 06:23] LABS: Chloride 108 mmol/L (98-107); Potassium 3.1 mmoL/L (3.5-5.1); Sodium 139 mmol/L (136-145)
[2024-04-13 06:26] LABS: Anion Gap 8.1 mEq/L (5-15); Blood Urea Nitrogen 17 mg/dl (9-20); Carbon Dioxide 26 mmol/L (22.0-30.0); Creatinine Clearance Estimated 130 mL/min (50-200); Estimated Glomerular Filt Rate 120 ml/min (>60); GFR (African American) 145 ML/MIN (>60)
[2024-04-13 06:27] LABS: Calcium 8.5 mg/dl (8.4-10.2); Glucose 95 mg/dl (74-100); Magnesium 1.6 mg/dl (1.6-2.3); Phosphorous 2.4 mg/dl (2.5-4.5)
[2024-04-13 06:37] LABS: Basophils % 0.3 % (0.1-2.0); Eosinophils % 0.2 % (0.1-12.0); Hematocrit 35.5 % (42.0-52.0); Hemoglobin 11.7 g/dL (14.1-18.0); Lymphocytes # 1.5 K/mm3 (0.7-4.5); Lymphocytes % 23.1 % (10-50); Mean Corpuscular Hemoglobin 32.3 pg (27.0-31.2); Mean Corpuscular Volume 97.8 fl (80-94); Mean Platelet Volume 8.5 fl (7.4-10.4); Monocytes # 0.6 K/mm3 (0.1-1.0); Monocytes % 8.7 % (1.7-9.3); Neutrophils # 4.5 K/mm3 (1.8-7.8); Neutrophils % 67.6 % (37.0-80.0); Platelet Count 240 K/mm3 (142-424); Red Blood Count 3.63 M/mm3 (4.60-6.20); Red Cell Distribution Width 16.3 % (11.5-17.5); White Blood Count 6.6 K/mm3 (4.8-10.8)
[2024-04-13] MEDS: METHYLPREDNISOLONE SOD SUCC 40MG VIAL 40 MG IV (08:06)
[2024-04-13] MEDS: BUPRENORPHINE/NALOXONE 8MG/2MG ODT 2 EACH SL (08:06)
[2024-04-13] MEDS: ARIPiprazole 10MG TABLET 5 MG PO (08:06)
[2024-04-13] MEDS: FOLIC ACID 1MG TABLET 1 MG PO (08:06)
[2024-04-13] MEDS: PANTOPRAZOLE 40MG VIAL 40 MG IV ×2 (08:07→20:08)
[2024-04-13] MEDS: NICOTINE 21MG/24HR PATCH 21 MG TD (08:45)
[2024-04-13] MEDS: POTASSIUM CHLORIDE 20MEQ TAB 40 MEQ PO ×3 (08:46→15:33)
[2024-04-13] MEDS: MAGNESIUM SULFATE IN WATER 2 GM/50 ML PIGGYBACK IV ×2 (09:27→10:42)
[2024-04-13] MEDS: levoFLOXacin 750 MG TABLET PO (10:42)
[2024-04-13] MEDS: MULTIVITAMIN TABLET 1 EACH PO (15:33)
--- NOTE | 2024-04-13 16:35 | PC.NURSE ---
aox4, ciwa scores much better today. has slept on/off throughout shift. no complaints thus far. he has not required o2 support today.
[2024-04-13] MEDS: SUCRALFATE 1GM TABLET 1 GM PO (17:16)
[2024-04-13] MEDS: SODIUM CHLORIDE 0.9% 10ML VIAL 10 ML IV (20:08)
[2024-04-13] MEDS: MIRTAZAPINE 15 MG TABLET PO (20:08)
[2024-04-13] MEDS: BELLADONNA ALKALOIDS 60 ML ML PO (20:08)
--- NOTE | 2024-04-13 21:41 | EXP.PN ---
Subjective *Date: 04/13/24 *Time: 21:41 Interval history: Patient reports hiccups, some abdominal discomofort today. GIven GI cocktail. Otherwise, no other concerns today. Exam Data for Last 24 hours Vital signs and Labs for Last 24 Hours: Temp Pulse Resp BP Pulse Ox O2 Del Method O2 Flow Rate 98.5 F 60 19 117/78 99 Room Air 2 04/13/24 16:00 04/13/24 20:00 04/13/24 16:00 04/13/24 16:00 04/13/24 16:00 04/13/24 18:13 04/10/24 18:48 Laboratory Results - last 24 hr 04/13/24 05:46: WBC 6.6, RBC 3.63 L, Hgb 11.7 L, Hct 35.5 L, MCV 97.8 H, MCH 32.3 H, MCHC 33.0, RDW 16.3, Plt Count 240 D, MPV 8.5, Neut % (Auto) 67.6, Lymph % (Auto) 23.1, [place] % (Auto) 8.7, Eos % (Auto) 0.2, Baso % (Auto) 0.3, Neut # (Auto) 4.5, Lymph # (Auto) 1.5, [place] # (Auto) 0.6, Eos # (Auto) 0.0, Baso # (Auto) 0.0, Sodium 139, Potassium 3.1 L D, Chloride 108 H, Carbon Dioxide 26, Anion Gap 8.1, BUN 17, Creatinine 0.70, Estimated Creat Clear 130, Estimated GFR 120, Est GFR ( Amer) 145, Glucose 95, Calcium 8.5, Phosphorus 2.4 L D, Magnesium 1.6 D I & O for Last 24 hours: Intake & Output 04/10/24 04/11/24 04/12/24 04/13/24 23:59 23:59 23:59 23:59 Intake Total 2675 / 2675 2669 / 2669 2230 / 2470 820 / 820 Output Total 300 / 300 235 / 235 0 / 0 Balance 2375 / 2375 2434 / 2434 2230 / 2470 820 / 820 Weight 67.642 kg 73.48 kg 70.335 kg 72.257 kg Microbiology Reports for the Last 24 Hours: Microbiology 04/10/24 Unknown Transbronchial Biopsy - Right Lower Lobe Gram Stain - Final 04/10/24 Unknown Transbronchial Biopsy - Right Lower Lobe Surgical Biopsy Culture - Preliminary NO GROWTH AFTER 72 HOURS 04/09/24 13:31 Blood Blood Culture - Preliminary NO GROWTH AFTER 4 DAYS 04/09/24 12:45 Blood Blood Culture - Preliminary NO GROWTH AFTER 4 DAYS 04/10/24 06:30 Sputum - Expectorated Sputum Gram Stain - Final 04/10/24 06:30 Sputum - Expectorated Sputum Sputum Culture - Preliminary Gram Positive Cocci Constitutional Constitutional: no acute distress *Routine HEENT Exam Head: Present normocephalic Eye: Present EOMI and PERRL ENT: Present mucous membranes moist *Routine Neck Exam Neck: Present supple; Absent lymphadenopathy *Routine Respiratory Exam Respiratory: Present rhonchi and wheezes; Absent CTA bilaterally *Routine Cardiovascular Exam Cardiovascular: Present RRR *Routine Abdominal Exam Abdominal: Present soft and normoactive bowel sounds; Absent tenderness *Routine Extremities Exam Extremities: Absent cyanosis, clubbing or edema *Routine Skin Exam Skin: Present warm; Absent rash *Routine Neurological Exam Neurological: Present alert Assessment and Plan *Assessment and plan (1) Hypokalemia: Status: Acute Category: Medical Code(s): E87.6 - Hypokalemia (2) Shortness of breath: Status: Acute Category: Medical Code(s): R06.02 - Shortness of breath (3) Hematemesis: Status: Acute Category: Medical Code(s): K92.0 - Hematemesis (4) Sepsis due to pneumonia: Status: Acute Category: Medical Code(s): J18.9 - Pneumonia, unspecified organism; A41.9 - Sepsis, unspecified organism Plan Brandon Dave is a 48-year-old male with medical history significant for PUD/gastritis with GI bleeds, current smoker, alcohol use disorder, substance use disorder on Suboxone for nausea/vomiting, worsening cough. Patient states the coughing began about 3 weeks ago, and the nausea/vomiting began about a week ago. He states he stopped drinking about a week ago. He endorses epigastric abdominal pain, with generalized abdominal cramping. Of note, he was recently discharged on 03/14/2024 for upper GI bleed. Workup in the ED significant for heart rate up to 119, BP as low as 99/59, WBC 15.9, hemoglobin 14.1, potassium 3.0, BUN 41, AST ALT 73/24, procalcitonin 8.6. UDS negative. CTA abdomen/pelvis did not reveal acute intra-abdominal findings, but did suggest right lung airspace opacity. Case was discussed with ED provider, and decision was made to admit patient for sepsis from suspected pneumonia. #Right 10 cm mid lung opacity, necrotizing pneumonia #Suspected hospital-acquired necrotizing pneumonia ? Patient has been having green productive cough for the past 3 weeks since discharge from the hospital. ? He states the right side of his ribs hurt with coughing, and feels like something is pushing into his right ribs. ? CXR reveals 10 cm rounded masslike opacity in the right midlung. ? CT chest suggests 10 cm rounded opacity is highly suggestive of necrotizing pneumonia. ? Blood cultures from 3 weeks ago to show pseudomonal growth. Essentially pansensitive ? Initial WBC 15.9, with tachycardia. Procalcitonin 8.6. Given 2 L of sepsis bolus. ? WBC resolved. ? Patient continues to say he feels better today, coughing less. ? Continue levofloxacin 750 mg daily for a total of 2 weeks. IV vancomycin, cefepime, Flagyl discontinued, MRSA screen negative. ? Follow-up blood NGTD 48 hours, sputum cultures showing gram positive cocci. BAL, AFB cultures pending. ? Pulmonology following. Performed bronchoscopy and obtained tissue samples. Appreciate efforts and recommendations as above. #Pseudomonal bacteremia, resolved ? Blood culture 03/13/2024 positive for pseudomonas pseudoalcaligenes. ? Repeat cultures during admission no growth to date 48 hours. ? TTE did not show vegetation. ? However given recurrent positive blood cultures in the past 6 months, we will follow-up with LOW on Sunday. ? Patient states he has never used IV drugs. - Anticipate dc after LOW if stable. #Alcohol withdrawal #Suboxone withdrawal #Substance use disorder ? Patient was visibly anxious, and endorses hallucinations on admission. However, much more stable today as withdrawal is improving. ? Patient states last drink was about a week ago before admission, though this does not fit timeline for withdrawals. ? Initiated on CIWA protocol. Diazepam as needed ? CIWA scores improved to less than 10 today, but still scoring less than 5 today. ? Consider phenobarbital if refractory to benzodiazepines. ? Supplementing with thiamine, multivitamin. ? Resume home Suboxone, likely has not been tolerating it due to nausea/vomiting over the past week before admission. #Acute COPD exacerbation ? Moderate wheezing on bilateral lung piña on admission. ? DuoNebs as needed, Pulmicort twice daily. ? Plan to discontinue Solu-Medrol tomorrow after 5 days therapy. ? Viral respiratory panel negative. #Nausea/vomiting #Generalized abdominal pain #Coffee-ground emesis, dark stools ? Patient has a history of PUD, had EGD on revealing 1 cm postbulbar duodenal ulcer without active bleeding. ? Patient states he continues to have intermittent coffee-ground emesis, dark stools. ? Hemoglobin on admission 14.1. Likely hemoconcentrated, as it has been stable around 11.5 ? At the same time, patient has continued to drink alcohol since discharge. He was counseled to subside drinking given PUD. ? He states he stopped drinking about a week ago because he could not keep anything down due to abdominal pain, nausea/vomiting. ? CT abdomen/pelvis did not show acute intra-abdominal findings. ? AST/ALT ratio 73/24 suggestive of alcohol liver disease but not overt hepatitis. ? Dark stools, coffee-ground emesis seem to be chronic in nature as hemoglobin was stable. However, BUN 41 on admission is above his discharge BUN of 35. Improved to 32 today. ? GI consulted, performed EGD 04/10/2024 s/p Endo Clip placement of duodenal ulcer. ? Nausea/vomiting/diarrhea may also be related to alcohol, Suboxone withdrawal. ? IV Zofran as needed. ? IV Protonix 40 mg twice daily. Plan to switch to oral tomorrow once withdrawal resolves as below. ? Continuous telemetry. #Hypokalemia ? Repleting. #Severe malnutrition ? Nutrition is consulted, started meal supplementation. Full code SCDs
[2024-04-13] MEDS: ACETAMINOPHEN 325MG TAB 650 MG PO (22:59)
[2024-04-14] VITALS (12 sets, daily range): BP systolic 90–126; BP diastolic 59–76; PULSE 70–170; RESP 16–20; TEMP 36.7–36.9; O2SAT 93–99; BMI 24.3
[2024-04-14] MEDS: BUSPIRONE HCL 10 MG TABLET PO (00:18)
[2024-04-14] MEDS: ONDANSETRON 4MG/2ML VIAL 4 MG IV (03:17)
[2024-04-14] MEDS: MORPHINE 2MG/ML SYRINGE 2 MG IV (03:37)
[2024-04-14] MEDS: miSOPROStoL 200 MCG TABLET PO ×4 (05:55→22:58)
[2024-04-14 07:05] LABS: Anion Gap 7.2 mEq/L (5-15); Blood Urea Nitrogen 14 mg/dl (9-20); Calcium 7.9 mg/dl (8.4-10.2); Carbon Dioxide 21 mmol/L (22.0-30.0); Chloride 109 mmol/L (98-107); Creatinine Clearance Estimated 184 mL/min (50-200); Estimated Glomerular Filt Rate 177 ml/min (>60); GFR (African American) 214 ML/MIN (>60); Glucose 67 mg/dl (74-100); Potassium 4.2 mmoL/L (3.5-5.1); Sodium 133 mmol/L (136-145)
[2024-04-14 08:20] LABS: Basophils # 0.1 K/mm3 (0-0.2); Basophils % 1.1 % (0.1-2.0); Eosinophils % 0.4 % (0.1-12.0); Hematocrit 44.4 % (42.0-52.0); Hemoglobin 13.8 g/dL (14.1-18.0); Lymphocytes # 1.6 K/mm3 (0.7-4.5); Mean Corpuscular HGB Conc 31.2 g/dL (31.8-35.4); Mean Corpuscular Hemoglobin 32.1 pg (27.0-31.2); Mean Platelet Volume 9.2 fl (7.4-10.4); Monocytes # 0.8 K/mm3 (0.1-1.0); Monocytes % 6.2 % (1.7-9.3); Neutrophils % 79.3 % (37.0-80.0); Platelet Count 346 K/mm3 (142-424); Red Blood Count 4.31 M/mm3 (4.60-6.20); Red Cell Distribution Width 16.4 % (11.5-17.5); White Blood Count 12.6 K/mm3 (4.8-10.8)
[2024-04-14] MEDS: FOLIC ACID 1MG TABLET 1 MG PO (08:41)
[2024-04-14] MEDS: METHYLPREDNISOLONE SOD SUCC 40MG VIAL 40 MG IV (08:41)
[2024-04-14] MEDS: BUPRENORPHINE/NALOXONE 8MG/2MG ODT 2 EACH SL (08:41)
[2024-04-14] MEDS: ARIPiprazole 10MG TABLET 5 MG PO (08:42)
[2024-04-14 09:22] LABS: Magnesium 1.7 mg/dl (1.6-2.3)
--- NOTE | 2024-04-14 09:42 | EXP.PULM.PN ---
Subjective *Date: 04/14/24 *Time: 13:21 Interval history: No acute respiratory vents overnight. Patient continued to complain of respiratory distress cough and productive phlegm. Pulmonology Exam Inpatient Vital signs and Labs for Last 24 Hours: Temp Pulse Resp BP Pulse Ox O2 Del Method O2 Flow Rate 98.5 F 94 H 20 117/73 94 L Room Air 2 04/14/24 08:00 04/14/24 08:00 04/14/24 08:00 04/14/24 08:00 04/14/24 08:00 04/14/24 09:00 04/10/24 18:48 Laboratory Results - last 24 hr 04/14/24 05:44: Sodium 133 L, Potassium 4.2 D, Chloride 109 H, Carbon Dioxide 21 L, Anion Gap 7.2, BUN 14, Creatinine 0.50 L D, Estimated Creat Clear 184, Estimated GFR 177, Est GFR ( Amer) 214 D, Glucose 67 L D, Calcium 7.9 L 04/14/24 08:01: WBC 12.6 H D, RBC 4.31 L, Hgb 13.8 L, Hct 44.4, MCV 103.0 H, MCH 32.1 H, MCHC 31.2 L, RDW 16.4, Plt Count 346 D, MPV 9.2, Neut % (Auto) 79.3, Lymph % (Auto) 13.0, [place] % (Auto) 6.2, Eos % (Auto) 0.4, Baso % (Auto) 1.1, Neut # (Auto) 10.0 H, Lymph # (Auto) 1.6, [place] # (Auto) 0.8, Eos # (Auto) 0.0, Baso # (Auto) 0.1 04/14/24 09:04: Phosphorus 2.0 L, Magnesium 1.7 Temp Pulse Resp BP Pulse Ox O2 Del Method 97.9 F 74 19 105/63 L 95 Room Air 04/10/24 08:00 04/10/24 08:00 04/10/24 08:00 04/10/24 08:00 04/10/24 08:00 04/10/24 08:00 Laboratory Results - last 24 hr 04/09/24 12:45: WBC 15.9 H, RBC 4.37 L, Hgb 14.1, Hct 45.0, MCV 103.1 H, MCH 32.3 H, MCHC 31.3 L, RDW 15.7, Plt Count 155, MPV 8.1, Neut % (Auto) 93.3 H, Lymph % (Auto) 3.9 L, [place] % (Auto) 2.5, Eos % (Auto) 0.1, Baso % (Auto) 0.2, Neut # (Auto) 14.9 H, Lymph # (Auto) 0.6 L, [place] # (Auto) 0.4, Eos # (Auto) 0.0, Baso # (Auto) 0.0, Total Counted 100, Neutrophils % (Manual) 91 H, Lymphocytes % (Manual) 7 L, Monocytes % (Manual) 2, Platelet Estimate Normal, RBC Morphology Not Reportable, Macrocytosis 1+, PT 10.0 L, INR 0.88 L, APTT 34.1 H, Sodium 134 L, Potassium 3.0 L, Chloride 92 L, Carbon Dioxide 36 H, Anion Gap 9.0, BUN 41 H, Creatinine 1.20, Estimated Creat Clear 69, Estimated GFR 64, Est GFR ( Amer) 78, Glucose 140 H, Lactate 2.9 H, Calcium 8.4, Total Bilirubin 0.7, AST 73 H, ALT 24, Alkaline Phosphatase 73, Total Creatine Kinase 60, Total Protein 6.9, Albumin 3.7, Globulin 3.2, Albumin/Globulin Ratio 1.2, Lipase 108, Procalcitonin 8.60 H, HIV 1&2 Antibody Rapid Nonreactive 04/09/24 14:26: Urine Color Yellow, Urine Appearance Clear, Urine pH 7.5, Ur Specific [place] 1.015, Urine Protein 2+ A, Urine Glucose (UA) Negative, Urine Ketones Negative, Urine Blood 2+ A, Urine Nitrate Negative, Urine Bilirubin Negative, Urine Urobilinogen 4.0, Ur Leukocyte Esterase Negative, Urine RBC None, Urine WBC None, Ur Squamous Epith Cells Occasional, Urine Bacteria Trace, Urine Opiates Screen Negative, Urine Methadone Screen Negative, Ur Barbituates Screen Negative, Ur Phencyclidine Scrn Negative, Ur Amphetamines Screen Negative, U Benzodiazepines Scrn Negative, Urine Cocaine Screen Negative, U Marijuana (THC) Screen Negative 04/09/24 17:18: Lactate 1.6 04/09/24 19:01: Chlamy pneumoniae PCR Not detected, Adenovirus (PCR) Not detected, B. pertussis DNA (PCR) Not detected, Coronavirus OC43 (PCR) Not detected, Coronavirus HKU1 (PCR) Not detected, Coronavirus 229E (PCR) Not detected, SARS-CoV-2 (PCR) Not detected, Coronavirus NL63 (PCR) Not detected, Human Metapneumovir PCR Not detected, Influenza A (H1) PCR Not detected, Influ A (H1N1/09) PCR Not detected, Influenza A (H3) PCR Not detected, Influenza Type A (PCR) Not detected, Influenza Type B (PCR) Not detected, M. pneumoniae (PCR) Not detected, Parainfluenza 1 (PCR) Not detected, Parainfluenza 2 (PCR) Not detected, Parainfluenza 3 (PCR) Not detected, Parainfluenza 4 (PCR) Not detected, RSV (PCR) Not detected, Entero/Rhino (PCR) Not detected 04/10/24 05:28: WBC 9.2 D, RBC 3.47 L, Hgb 11.3 L D, Hct 34.1 L, MCV 98.2 H, MCH 31.9 H, MCHC 32.5, RDW 16.0, Plt Count 123 L, MPV 8.0, Neut % (Auto) 89.1 H, Lymph % (Auto) 5.2 L, [place] % (Auto) 5.4, Eos % (Auto) 0.0 L, Baso % (Auto) 0.3, Neut # (Auto) 8.2 H, Lymph # (Auto) 0.5 L, [place] # (Auto) 0.5, Eos # (Auto) 0.0, Baso # (Auto) 0.0, Total Counted 100, Neutrophils % (Manual) 91 H, Lymphocytes % (Manual) 7 L, Monocytes % (Manual) 2, Platelet Estimate Slight decrease, RBC Morphology Normal, Sodium 134 L, Potassium 3.7 D, Chloride 102, Carbon Dioxide 29, Anion Gap 6.7, BUN 32 H, Creatinine 0.80 D, Estimated Creat Clear 107, Estimated GFR 103, Est GFR ( Amer) 124 D, Glucose 121 H, Calcium 7.9 L, Magnesium 2.4 H I & O for Labs for Last 24 Hours: Intake & Output 04/11/24 04/12/24 04/13/24 04/14/24 23:59 23:59 23:59 23:59 Intake Total 2669 / 2669 2230 / 2470 820 / 820 Output Total 235 / 235 0 / 0 0 / 0 Balance 2434 / 2434 2230 / 2470 820 / 820 0 / 0 Weight 161 lb 15.931 oz 155 lb 1 oz 159 lb 4.8 oz 160 lb 3.2 oz Intake & Output 04/07/24 04/08/24 04/09/24 04/10/24 23:59 23:59 23:59 23:59 Intake Total 1430 / 1430 Output Total 0 / 0 0 / 0 Balance 0 / 1330 1430 / 1430 Weight 141 lb 9 oz 149 lb 2 oz Microbiology Reports for the Last 24 Hours: Microbiology 04/10/24 06:30 Sputum - Expectorated Sputum Gram Stain - Final 04/10/24 06:30 Sputum - Expectorated Sputum Sputum Culture - Final Gemella morbillorum 04/10/24 Unknown Transbronchial Biopsy - Right Lower Lobe Gram Stain - Final 04/10/24 Unknown Transbronchial Biopsy - Right Lower Lobe Surgical Biopsy Culture - Preliminary NO GROWTH AFTER 72 HOURS 04/09/24 13:31 Blood Blood Culture - Preliminary NO GROWTH AFTER 4 DAYS 04/09/24 12:45 Blood Blood Culture - Preliminary NO GROWTH AFTER 4 DAYS Constitutional: Present moderate distress Head: Present normocephalic and atraumatic ENT: Present normal exam, normal oropharynx and mucous membranes moist Neck: Present normal inspection and full ROM Respiratory: Present respiratory distress, rhonchi, diminished air movement and able to speak in complete sentences; Absent wheezes Cardiac: Present S1/S2, Tachycardia and radial pulses present GI: Present soft and distention; Absent tenderness or guarding Skin: Present intact; Absent cyanosis or jaundice Neuro: Present alert, awake and oriented x 3 Extremities: Present normal inspection; Absent clubbing or cyanosis Psychiatric: Present normal affect and cooperative Assessment and Plan *Assessment and plan (1) Pneumonia: Status: Acute Category: Medical Code(s): J18.9 - Pneumonia, unspecified organism (2) Necrotizing pneumonia: Status: Acute Category: Medical Code(s): J85.0 - Gangrene and necrosis of lung Plan Mr. Dave is a 48-year-old with reported history of asthma on albuterol inhaler on as-needed basis, PUD, gastritis, history of GI bleeds, tobacco and substance abuse presented to ER with worsening respiratory distress along with cough and productive phlegm for the last 3 weeks progressively getting worse. Afebrile. Hemodynamically stable. Neutrophilic predominant leukocytosis upon admission improving. Patient on admission was initiated on vancomycin and cefepime and azithromycin. Prior blood cultures and sputum cultures grew Pseudomonas, enterobacter and Streptococcus sensitive to levofloxacin. CT chest performed on admission dense consolidative airspace disease/necrotizing pneumonia in the right lower lobe. No other airspace disease noted. Left hilar lymphadenopathy noted. Subcarinal calcified lymphadenopathy. No other significant lymphadenopathy appreciated. The noted airspace disease is not present on patient's CT from 03/13/2024. CT chest from November 2023 bilateral patchy airspace disease howeverthis is present on the right lower lobe. On initial examination rhonchorous breath sounds in right lower lung piña with no significant wheezing noted. Mild respiratory distress. Not needing any oxygen supplementation. Interval update: TTE did not show any obvious evidence of vegetations. Blood cultures negative. Hemodynamically stable. Continue to remain on room air. Plan: Change antibiotics to Augmentin to complete a total of 14-day course. Improving pneumonia on imaging from chest x-ray this morning. Advair 250 BID DuoNebs every 6 hours scheduled # Thank you for involving pulmonary in this patient care. Patient can be discharged on pulmonary standpoint. Will follow the patient in pulmonary clinic in 5 to 7 days postdischarge.
--- NOTE | 2024-04-14 09:49 | XR_ITS ---
PROCEDURE INFORMATION: Exam: XR Chest Exam date and time: 04/14/2024 12:18 PM Age: 48 years old Clinical indication: Other: Recent pneumonia; Additional info: F/u pneumonia TECHNIQUE: Imaging protocol: Radiologic exam of the chest. Views: 1 view. COMPARISON: CT ANGIO CHEST PE PROTOCOL 04/14/2024 12:06 PM FINDINGS: Lungs: Right perihilar infiltrate. There is improved aeration when compared to the prior exam Pleural spaces: Unremarkable. No pleural effusion. No pneumothorax. Heart/Mediastinum: Unremarkable. No cardiomegaly. Bones/joints: Unremarkable. IMPRESSION: Right perihilar infiltrate. There is improved aeration when compared to the prior examination
--- NOTE | 2024-04-14 10:02 | CT_ITS ---
PROCEDURE INFORMATION: Exam: CT Abdomen And Pelvis With Contrast Exam date and time: 04/14/2024 12:06 PM Age: 48 years old Clinical indication: Nausea; Additional info: Lower abdominal pain, dyspepsia, nausea TECHNIQUE: Imaging protocol: Computed tomography of the abdomen and pelvis with contrast. Radiation optimization: All CT scans at this facility use at least one of these dose optimization techniques: automated exposure control; mA and/or kV adjustment per patient size (includes targeted exams where dose is matched to clinical indication); or iterative reconstruction. Contrast material: ISOVUE; Contrast volume: 80 ml; Contrast route: IV; COMPARISON: CT ANGIO ABDOMEN PELVIS 04/09/2024 1:39 PM FINDINGS: Lungs: There is redemonstration of 6 cm cavitary lesion in the right lower lobe. Esophagus: Circumferential thickening and distension of the distal esophagus can be seen in the context of esophageal dysmotility. Liver: No focal hepatic lesions. Hepatic steatosis noted. Gallbladder and biliary ducts: Gallbladder is distended without radiopaque cholelithiasis. No biliary ductal dilation. Pancreas: No peripancreatic fluid stranding. No main pancreatic ductal dilation. Spleen: No splenomegaly. Multiple splenic granulomas Adrenal glands: The adrenal glands are normal. Kidneys and ureters: No perinephric stranding. Bilateral punctate caliceal calculi. No hydroureteronephrosis on either side. Nephrograms are symmetric. No solid lesions. Stomach and bowel: There are 2 surgical clips in the proximal duodenum. No bowel wall thickening or distention. Large fecal burden throughout the colon. Appendix: There has been an appendectomy. Intraperitoneal space: Small amount of upper abdominal and pelvic ascites. Vasculature: Aorta is nonaneurysmal. Lymph nodes: There are numerous prominent periportal and upper abdominal lymph nodes, commonly seen in the setting of chronic liver disease/cirrhosis. No additional lymphadenopathy by size criteria. Urinary bladder: Unremarkable as visualized. Reproductive: Unremarkable as visualized. Bones/joints: Endplate irregularity L1-L2 could be either degenerative versus sequela of prior infection. Soft tissues: Unremarkable. IMPRESSION: 1. Circumferential thickening and distension of the distal esophagus can be seen in the context of esophageal dysmotility. 2. Small amount of upper abdominal and pelvic ascites. Hepatic steatosis.
[2024-04-14] MEDS: levoFLOXacin 750 MG TABLET PO (10:03)
--- NOTE | 2024-04-14 10:47 | CT_ITS ---
PROCEDURE INFORMATION: Exam: CTA Chest With Contrast Exam date and time: 04/14/2024 12:06 PM Age: 48 years old Clinical indication: Shortness of breath; Additional info: R/O pe TECHNIQUE: Imaging protocol: Computed tomographic angiography of the chest with contrast. Exam focused on the arteries. 3D rendering (Not supervised by radiologist): MIP and/or 3D reconstructed images were created by the technologist. Radiation optimization: All CT scans at this facility use at least one of these dose optimization techniques: automated exposure control; mA and/or kV adjustment per patient size (includes targeted exams where dose is matched to clinical indication); or iterative reconstruction. Contrast material: ISO 370; Contrast volume: 80 ml; Contrast route: INTRAVENOUS (IV); COMPARISON: CT CHEST W CON 04/09/2024 8:23 PM FINDINGS: Pulmonary arteries: No evidence of filling defects to suggest pulmonary emboli. Aorta: Aorta is nonaneurysmal. Aorta is nonaneurysmal. Trachea: Main airways are patent. Lungs: There is redemonstration of masslike opacity with internal cavitation in right lower lobe. The overall size has decreased from most recent exam measuring 5 cm, previously 8 cm, by today's measurements. Pleural spaces: No pneumothorax. Small right pleural effusion Heart: Unremarkable. No cardiomegaly. No pericardial effusion. Heart RV/LV ratio: The RV/LV ratio is less than 1. Lymph nodes: Calcified mediastinal and hilar lymph nodes suggest prior granulomatous exposure. There is a prominent right hilar node likely reactive. Intraperitoneal space: For findings in the abdomen and pelvis, please refer to the separately dictated abdomen and pelvis CT report under a separate accession number. Bones/joints: Unremarkable. No acute fracture. Soft tissues: Unremarkable. IMPRESSION: 1. No evidence of filling defects to suggest pulmonary emboli. 2. There is redemonstration of masslike opacity with internal cavitation in right lower lobe. The overall size has decreased from most recent exam measuring 5 cm, previously 8 cm, by today's measurements.
--- NOTE | 2024-04-14 11:13 | ECG_ITS ---
APPROVED REPORT Exam: Resting ECG HR:169 bpm ECG Measurements Heart Rate 169 AXES QRSd 89 QRS 79 QT 256 T 30 QTc 348 Conclusion SUPRAVENTRICULAR TACHYCARDIA POSSIBLE RIGHT VENTRICULAR CONDUCTION DELAY [RSR (QR) IN V1/V2] MODERATE ST DEPRESSION [0.05+ mV ST DEPRESSION] CRITICAL TEST RESULT UNCONFIRMED REPORT Electronically signed by : Aj Valentine MD 04/16/2024 08:20:42
--- NOTE | 2024-04-14 12:01 | PC.NURSE ---
Addendum entered by Racquel Peters RN 04/14/24 15:37: Pt came back from CT at 1225, pt heart rate was still in 170's. MD Silver came into room and walked the pt through vagal maneuvers in attempt to bring his HR down, these were unsuccessful. then decided to push adenosine. Pads were put on pt and he was hooked up to the zoll. educated pt on medication, pt stated that he trusted him. 6mg of adenosine was pushed but was not successful in bringing HR down. decided to give another 12mg of adenosine, this was successful HR consistently in 77's-90's. VSS. Pt now resting comfortably in bed with no complaints at this time. Original Note: [employer] district law clerk notified this nurse that pt HR was in 170's, EKG ordered. MD Silver read strip and is aware and said pt was okay to go down to CT. No new orders.
--- NOTE | 2024-04-14 12:08 | ECG_ITS ---
APPROVED REPORT Exam: Resting ECG HR:167 bpm ECG Measurements Heart Rate 167 AXES QRSd 100 QRS 50 QT 250 T 46 QTc 341 Conclusion SUPRAVENTRICULAR TACHYCARDIA INDETERMINATE AXIS INCOMPLETE RIGHT BUNDLE BRANCH BLOCK [90+ ms QRS DURATION, TERMINAL R IN V1/V2, 40+ ms S IN I/aVL/V4/V5/V6] CRITICAL TEST RESULT UNCONFIRMED REPORT Electronically signed by : Aj Valentine MD 04/16/2024 08:20:36
[2024-04-14] MEDS: 0.9 % SODIUM CHLORIDE 50 ML VIAL IV (12:32)
[2024-04-14] MEDS: IOPAMIDOL-370 (76%);100ML BOTTLE 75 ML IV (12:32)
--- NOTE | 2024-04-14 12:50 | ECG_ITS ---
APPROVED REPORT Exam: Resting ECG HR:90 bpm ECG Measurements Heart Rate 90 AXES IL 104 P 16 QRSd 94 QRS 56 QT 332 T 34 QTc 379 Conclusion SINUS RHYTHM WITH SHORT IL INTERVAL BORDERLINE ECG UNCONFIRMED REPORT Electronically signed by : Aj Valentine MD 04/16/2024 08:20:28
--- NOTE | 2024-04-14 13:22 | PEERSUPPORT ---
Peer Support Note Patient Information Patient Information: DOS:04/14/2024 ? Reason: Ps Follow-up ? Pt states he had a very scary morning with his heart rate going up to 170. He says he thought he was going to . He feels very tired with no energy. ? Ps provided empathetic listening to validate feelings. ? Pt is having trouble staying awake due to exhaustion, he says he did not sleep well the night before from pain in his stomach and left side rib. Ps encouraged him to rest for energy and healing to his body. 4:00 pm Pt is alert and oriented. He is having stomach pains and not had any bowel movements. He says he will not use the bedside toilet, as that is something private and afraid annabelle will walk in on him. 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 Ps acted as advocate for pt to nurse, requesting assessing him to be able to go to the restroom in privacy. Nurse assesses and approves Farzaneh RYLAN to assist him to the restroom. 7:30 PM Pt is sleeping. Ps discussed with nurse possibly offering him a chocolate pudding or ensure before fasting that starts at 12 am for scheduled LOW tomorrow. Ps will follow up.
[2024-04-14] MEDS: ADENOSINE 6MG/2ML VIAL 6 MG IV (13:28)
[2024-04-14] MEDS: AMOXICILLIN/CLAVULANATE POTASSIUM 875/125MG TABLET 1 EACH PO ×2 (13:28→21:26)
[2024-04-14] MEDS: ADENOSINE 6MG/2ML VIAL 12 MG IV (13:29)
--- NOTE | 2024-04-14 15:19 | P.CONCA_ITS ---
History of Present Illness History of Present Illness Consult date: 04/14/24 Requesting physician: Facundo Silver Chief complaint: abdominal pain History of present illness: Brandon Dave is a 48-year-old male with medical history significant for PUD/gastritis with GI bleeds, current smoker, alcohol use disorder, substance use disorder on Suboxone for nausea/vomiting, worsening cough. Patient states the coughing began about 3 weeks ago, and the nausea/vomiting began about a week ago. He states he stopped drinking about a week ago. He endorses epigastric abdominal pain, with generalized abdominal cramping. Of note, he was recently discharged on 03/14/2024 for upper GI bleed. Workup in the ED significant for heart rate up to 119, BP as low as 99/59, WBC 15.9, hemoglobin 14.1, potassium 3.0, BUN 41, AST ALT 73/24, procalcitonin 8.6. UDS negative. CTA abdomen/pelvis did not reveal acute intra-abdominal findings, but did suggest right lung airspace opacity. Case was discussed with ED provider, and decision was made to admit patient for sepsis from suspected pneumonia. This morning patient went into SVT with a rate of 170. Adenosine was given and patient converted to NSR. LOW is pending to further evaluate for endocarditis for reoccurring positive blood cultures. [facility] Disclaimer: The information contained in this section may have been updated after the patient was seen, as this information can be updated by other users. Medical History (Updated 04/14/24 @ 15:24 by Aida Choudhary APRN) Duodenal ulcer Necrotizing pneumonia Pneumonia Drug abuse and dependence Back pain Rib pain Shoulder pain Neck pain Acute UTI Back pain Ankle fracture Fracture of distal end of fibula Sinusitis Cellulitis Exposure to COVID-19 virus PTSD (post-traumatic stress disorder) Acute blood loss anemia Anemia Peptic ulcer disease with hemorrhage Chronic pain Anxiety Acute bronchitis Elbow pain, left Acute urinary tract infection Leukocytosis Acute appendicitis High risk medication use Tobacco abuse Asthma exacerbation Depression Anxiety Traumatic brain injury Surgical History History of foot surgery H/O lithotripsy History of appendectomy H/O right knee surgery H/O anterior cruciate ligament surgery Previous back surgery Family History Grandmother Cancer Diabetes Stroke Grandfather Cancer Mother Diabetes Hypertension Social History Smoking Status: Current every day smoker tobacco type: cigarettes packs per day: 1 alcohol intake: current alcohol intake frequency: a few times a week counseling provided: provider counseling substance use type: former substance user and prescription drug current occupational status: disabled Travel in the last 8 weeks: None household members: significant other housing: house current occupational exposures/hazards: No caffeine: No Review of Systems *Gastrointestinal Comments: abdominal pain *Neurologic Neurologic: Reports as per HPI Exam Data for Last 24 hours Vital signs and Labs for Last 24 Hours: Temp Pulse Resp BP Pulse Ox O2 Del Method O2 Flow Rate 98.5 F 100 H 20 109/69 L 93 L Room Air 2 04/14/24 08:00 04/14/24 12:47 04/14/24 08:00 04/14/24 12:47 04/14/24 12:47 04/14/24 12:47 04/10/24 18:48 Laboratory Results - last 24 hr 04/14/24 05:44: Sodium 133 L, Potassium 4.2 D, Chloride 109 H, Carbon Dioxide 21 L, Anion Gap 7.2, BUN 14, Creatinine 0.50 L D, Estimated Creat Clear 184, Estimated GFR 177, Est GFR ( Amer) 214 D, Glucose 67 L D, Calcium 7.9 L 04/14/24 08:01: WBC 12.6 H D, RBC 4.31 L, Hgb 13.8 L, Hct 44.4, MCV 103.0 H, MCH 32.1 H, MCHC 31.2 L, RDW 16.4, Plt Count 346 D, MPV 9.2, Neut % (Auto) 79.3, Lymph % (Auto) 13.0, [place] % (Auto) 6.2, Eos % (Auto) 0.4, Baso % (Auto) 1.1, Neut # (Auto) 10.0 H, Lymph # (Auto) 1.6, [place] # (Auto) 0.8, Eos # (Auto) 0.0, Baso # (Auto) 0.1 04/14/24 09:04: Phosphorus 2.0 L, Magnesium 1.7 I & O for Last 24 hours: Intake & Output 04/11/24 04/12/24 04/13/24 04/14/24 23:59 23:59 23:59 23:59 Intake Total 2669 / 2669 2230 / 2470 820 / 820 Output Total 235 / 235 0 / 0 0 / 0 Balance 2434 / 2434 2230 / 2470 820 / 820 0 / 0 Weight 161 lb 15.931 oz 155 lb 1 oz 159 lb 4.8 oz 160 lb 3.2 oz Microbiology Reports for the Last 24 Hours: Microbiology 04/10/24 Unknown Transbronchial Biopsy - Right Lower Lobe Gram Stain - Final 04/10/24 Unknown Transbronchial Biopsy - Right Lower Lobe Surgical Biopsy Culture - Preliminary NO GROWTH AFTER 4 DAYS 04/09/24 13:31 Blood Blood Culture - Final NO GROWTH AFTER 5 DAYS 04/09/24 12:45 Blood Blood Culture - Final NO GROWTH AFTER 5 DAYS 04/10/24 06:30 Sputum - Expectorated Sputum Gram Stain - Final 04/10/24 06:30 Sputum - Expectorated Sputum Sputum Culture - Final Gemella morbillorum Constitutional Constitutional: no acute distress *Routine Respiratory Exam Respiratory: Present CTA bilaterally and symmetric chest movement *Routine Cardiovascular Exam Cardiovascular: Present RRR, Normal S1 and Normal S2 *Routine Abdominal Exam Abdominal: Present soft and normoactive bowel sounds; Absent tenderness *Routine Extremities Exam Extremities: Present full ROM and normal capillary refill; Absent edema *Routine Skin Exam Skin: Present intact, dry and warm Detailed Neck Exam: Thyroids Thyroid: Absent bruit Meds Home Medications and Allergies Home Medications ?Medication ?Instructions ?Recorded ?Confirmed ?Type buprenorphine 8 mg-naloxone 2 mg 2 tab sublingual DAILY 08/17/22 04/10/24 History sublingual tablet acamprosate 333 mg tablet,delayed 333 mg PO TID 03/13/24 04/10/24 History release aripiprazole 5 mg tablet 5 mg PO DAILY 03/13/24 04/10/24 History buspirone 10 mg tablet 10 mg PO TIDP PRN Anxiety 03/13/24 04/10/24 History mirtazapine 15 mg tablet 15 mg PO HS 03/13/24 04/10/24 History nicotine 21 mg/24 hr daily 1 patch transdermal DAILY 03/13/24 04/10/24 History transdermal patch propranolol 10 mg tablet 10 mg PO TID 03/13/24 04/10/24 History ondansetron 4 mg disintegrating 4 mg PO Q8H PRN nausea and 03/14/24 04/10/24 Rx tablet vomiting #14 tabs pantoprazole 40 mg tablet,delayed 40 mg PO BID 30 days #60 tabs 03/14/24 04/10/24 Rx release sucralfate 1 gram tablet (Carafate) 1 g PO BID PRN abdominal pain #60 03/14/24 04/10/24 Rx tabs New Prescriptions to Start Prescriptions: Allergies Allergy/AdvReac Type Severity Reaction Status Date / Time aspirin [ASPIRIN] Allergy Unknown Verified 01/08/24 10:51 piperacillin [From Zosyn] Allergy Verified 01/08/24 10:51 tazobactam [From Zosyn] Allergy Verified 01/08/24 10:51 Assessment and Plan *Assessment and plan (1) Alcohol abuse: Status: Acute Category: Social Hx Code(s): F10.10 - Alcohol abuse, uncomplicated (2) SVT (supraventricular tachycardia): Status: Acute Category: Medical Code(s): I47.10 - Supraventricular tachycardia, unspecified (3) Substance use disorder: Status: Acute Category: Medical Code(s): F19.90 - Other psychoactive substance use, unspecified, uncomplicated (4) Abdominal pain: Status: Acute Category: Medical Code(s): R10.9 - Unspecified abdominal pain (5) Hematemesis: Status: Acute Category: Medical Code(s): K92.0 - Hematemesis Plan SVT SVT noted today with rates ranging from 150-170 Adenosine given and converted to NSR Hesitant to start BB due to hypotension. IF BP is reasonable can start low dose Toprolol for rate control If blood pressure remains low and patient develops SVT again can consider use of amiodarone for rate control Recommend 2 week event monitor for discharge monitoring Right 10 cm mid lung opacity, necrotizing pneumonia Suspected hospital-acquired necrotizing pneumonia CXR reveals 10 cm rounded masslike opacity in the right midlung. CT chest suggests 10 cm rounded opacity is highly suggestive of necrotizing pneumonia. Blood cultures from 3 weeks ago to show pseudomonal growth. Essentially pansensitive Initial WBC 15.9, with tachycardia. Procalcitonin 8.6. Given 2 L of sepsis bolus. WBC resolved. Abx per primary service and pulmonology levofloxacin 750 mg daily for a total of 2 weeks. IV vancomycin, cefepime, Flagyl discontinued, MRSA screen negative. Follow-up blood NGTD 48 hours, sputum cultures showing gram positive cocci. BAL, AFB cultures pending. Pulmonology following. Performed bronchoscopy and obtained tissue samples. Pseudomonal bacteremia, resolved Blood culture 03/13/2024 positive for pseudomonas pseudoalcaligenes. Repeat cultures during admission no growth to date 48 hours. TTE did not show vegetation. Patient states he has never used IV drugs LOW scheduled for Sunday for further evaluation Nausea/vomiting Generalized abdominal pain Coffee-ground emesis, dark stools Patient has a history of PUD, had EGD on revealing 1 cm postbulbar duodenal ulcer without active bleeding. Patient states he continues to have intermittent coffee-ground emesis, dark stools. Hemoglobin on admission 14.1. Likely hemoconcentrated, as it has been stable around 11.5, today 13.8 At the same time, patient has continued to drink alcohol since discharge. He was counseled to subside drinking given PUD. He states he stopped drinking about a week ago because he could not keep anything down due to abdominal pain, nausea/vomiting. CT abdomen/pelvis did not show acute intra-abdominal findings. AST/ALT ratio 73/24 suggestive of alcohol liver disease but not overt hepatitis. Dark stools, coffee-ground emesis seem to be chronic in nature as hemoglobin was stable. However, BUN 41 on admission is above his discharge BUN of 35. Improved to 14today. GI consulted, performed EGD 04/10/2024 s/p Endo Clip placement of duodenal ulcer. Nausea/vomiting/diarrhea may also be related to alcohol, Suboxone withdrawal. IV Zofran as needed. IV Protonix 40 mg twice daily. Plan to switch to oral tomorrow once withdrawal resolves as below. Continuous telemetry. Alcohol withdrawal Suboxone withdrawal Substance use disorder Patient was visibly anxious, and endorses hallucinations on admission. However, much more stable today as withdrawal is improving. Patient states last drink was about a week ago before admission, though this does not fit timeline for withdrawals. Defer to primary service Hypokalemia PCP replacing CV summary 04/14/2024: SR s/p adenosine for SVT. BP remains low. Consider use of amiodarone if develops SVT again. Plan for LOW tomorrow at 1030. Patient needs to remain NPO after midnight.
[2024-04-14] MEDS: MULTIVITAMIN TABLET 1 EACH PO (17:33)
[2024-04-14] MEDS: BUDESONIDE 0.5MG/2ML NEB 0.5 MG IH (18:30)
[2024-04-14] MEDS: FLUTICASONE/SALMETEROL 250/50MCG DISKUS 1 PUFF IH (18:31)
[2024-04-14] MEDS: IPRATROPIUM/ALBUTEROL 3 ML NEB IH ×2 (18:31→23:44)
[2024-04-14] MEDS: LACTATED RINGERS 1000ML 1,000 ML 999 ML IV (18:42)
[2024-04-14] MEDS: CEFEPIME HCL 1 GM in 0.9 % SODIUM CHLORIDE 50 ML IV (18:47)
[2024-04-14 19:00] LABS: Lactate Venous 1.8 mmol/L (0.4-2.0)
[2024-04-14 19:32] LABS: Procalcitonin 0.336 ng/mL (0.0-2.0)
--- NOTE | 2024-04-14 20:39 | EXP.PN ---
Subjective *Date: 04/14/24 *Time: 23:39 Interval history: Patient states he is not feeling today, has hiccups with dyspepsia and abdominal discomfort. Exam Data for Last 24 hours Vital signs and Labs for Last 24 Hours: Temp Pulse Resp BP Pulse Ox O2 Del Method O2 Flow Rate 98.0 F 79 20 93/59 L 94 L Room Air 2 04/14/24 19:43 04/14/24 19:43 04/14/24 19:43 04/14/24 19:43 04/14/24 19:43 04/14/24 19:43 04/14/24 18:31 Laboratory Results - last 24 hr 04/14/24 05:44: Sodium 133 L, Potassium 4.2 D, Chloride 109 H, Carbon Dioxide 21 L, Anion Gap 7.2, BUN 14, Creatinine 0.50 L D, Estimated Creat Clear 184, Estimated GFR 177, Est GFR ( Amer) 214 D, Glucose 67 L D, Calcium 7.9 L 04/14/24 08:01: WBC 12.6 H D, RBC 4.31 L, Hgb 13.8 L, Hct 44.4, MCV 103.0 H, MCH 32.1 H, MCHC 31.2 L, RDW 16.4, Plt Count 346 D, MPV 9.2, Neut % (Auto) 79.3, Lymph % (Auto) 13.0, [place] % (Auto) 6.2, Eos % (Auto) 0.4, Baso % (Auto) 1.1, Neut # (Auto) 10.0 H, Lymph # (Auto) 1.6, [place] # (Auto) 0.8, Eos # (Auto) 0.0, Baso # (Auto) 0.1 04/14/24 09:04: Phosphorus 2.0 L, Magnesium 1.7 04/14/24 17:38: VBG Lactic Acid 1.8 04/14/24 18:44: Procalcitonin 0.336 I & O for Last 24 hours: Intake & Output 04/11/24 04/12/24 04/13/24 04/14/24 23:59 23:59 23:59 23:59 Intake Total 2669 / 2669 2230 / 2470 820 / 820 605 / 605 Output Total 235 / 235 0 / 0 0 / 0 Balance 2434 / 2434 2230 / 2470 820 / 820 605 / 605 Weight 73.48 kg 70.335 kg 72.257 kg 72.665 kg Microbiology Reports for the Last 24 Hours: Microbiology 04/10/24 Unknown Transbronchial Biopsy - Right Lower Lobe Gram Stain - Final 04/10/24 Unknown Transbronchial Biopsy - Right Lower Lobe Surgical Biopsy Culture - Preliminary NO GROWTH AFTER 4 DAYS 04/09/24 13:31 Blood Blood Culture - Final NO GROWTH AFTER 5 DAYS 04/09/24 12:45 Blood Blood Culture - Final NO GROWTH AFTER 5 DAYS 04/10/24 06:30 Sputum - Expectorated Sputum Gram Stain - Final 04/10/24 06:30 Sputum - Expectorated Sputum Sputum Culture - Final Gemella morbillorum Assessment and Plan *Assessment and plan (1) Hypokalemia: Status: Acute Category: Medical Code(s): E87.6 - Hypokalemia (2) Shortness of breath: Status: Acute Category: Medical Code(s): R06.02 - Shortness of breath (3) Hematemesis: Status: Acute Category: Medical Code(s): K92.0 - Hematemesis (4) Sepsis due to pneumonia: Status: Acute Category: Medical Code(s): J18.9 - Pneumonia, unspecified organism; A41.9 - Sepsis, unspecified organism Plan Brandon Dave is a 48-year-old male with medical history significant for PUD/gastritis with GI bleeds, current smoker, alcohol use disorder, substance use disorder on Suboxone for nausea/vomiting, worsening cough. Patient states the coughing began about 3 weeks ago, and the nausea/vomiting began about a week ago. He states he stopped drinking about a week ago. He endorses epigastric abdominal pain, with generalized abdominal cramping. Of note, he was recently discharged on 03/14/2024 for upper GI bleed. Workup in the ED significant for heart rate up to 119, BP as low as 99/59, WBC 15.9, hemoglobin 14.1, potassium 3.0, BUN 41, AST ALT 73/24, procalcitonin 8.6. UDS negative. CTA abdomen/pelvis did not reveal acute intra-abdominal findings, but did suggest right lung airspace opacity. Case was discussed with ED provider, and decision was made to admit patient for sepsis from suspected pneumonia. #Right 10 cm mid lung opacity, necrotizing pneumonia #Suspected hospital-acquired necrotizing pneumonia ? Patient has been having green productive cough for the past 3 weeks since discharge from the hospital. ? He stated the right side of his ribs hurt with coughing, and feels like something is pushing into his right ribs. ? CXR reveals 10 cm rounded masslike opacity in the right midlung. ? CT chest suggests 10 cm rounded opacity is highly suggestive of necrotizing pneumonia. ? Blood cultures from 3 weeks ago to show pseudomonal growth. Essentially pansensitive. ? Initial WBC 15.9, with tachycardia. Procalcitonin 8.6. Given 2 L of sepsis bolus. ? WBC bumped from 6 to 12.6 today. Procal still normal. No fevers. Continue to monitor. ? Patient states he is not feeling today, has hiccups with dyspepsia and abdominal discomfort. See separate problems. ? Pulmonary changed abx to Augmentin TID from Levaquin. If WBC continues to rise tomorrow, consider adding back pseudomonal coverage tomorrow as BC positive for pseudomonas 2 weeks ago. IV vancomycin, cefepime, Flagyl discontinued, MRSA screen negative. ? Follow-up blood NGTD 48 hours, sputum cultures showing gram positive cocci. BAL, AFB cultures pending. ? Pulmonology following. Performed bronchoscopy and obtained tissue samples. Appreciate efforts and recommendations as above. #SVT, resolved - Patient went into relatively asymptomatic stable SVT today, HR up to 170s sustaining. - Several valsava maneuvers attempted without success. - Responded and resolved after Adenosine 6mgx1, 12mgx1. - Blood pressures soft after adenosine SBP 80-90s, gave 1L fluid. Continue to monitor. - K>4, Mg>2. - Continous tele. #Dyspepsia, abdominal discomfort - Had duodenal ulcer clipped on 04/10. - Has complained of abdominal discomfort, hiccups, dyspepsia, and decreased appetite for the past day. - CT abdomen shows distal esophageal thickening and dilation. - GI consulted, pending recommendations. NPO midnight. #Pseudomonal bacteremia, resolved ? Blood culture 03/13/2024 positive for pseudomonas pseudoalcaligenes. ? Repeat cultures during admission no growth to date 48 hours. ? TTE did not show vegetation. ? However given recurrent positive blood cultures in the past 6 months, we will follow-up with LOW. Not performed today due to SVT, planning for Sunday morning. ? Patient states he has never used IV drugs. #Alcohol withdrawal #Suboxone withdrawal #Substance use disorder ? Patient was visibly anxious, and endorses hallucinations on admission. However, much more stable today as withdrawal is improving. ? Patient states last drink was about a week ago before admission, though this does not fit timeline for withdrawals. ? Initiated on CIWA protocol. Diazepam as needed ? CIWA scores improved to less than 5 today. Not needed benzos since 04/12. ? Supplementing with thiamine, multivitamin. ? Resume home Suboxone, likely had not been tolerating it due to nausea/vomiting over the past week before admission. #Acute COPD exacerbation ? Moderate wheezing on bilateral lung piña on admission. ? DuoNebs as needed, Pulmicort twice daily. ? Finished solumedrol after 5 days. ? Viral respiratory panel negative. #Nausea/vomiting #Generalized abdominal pain #Coffee-ground emesis, dark stools ? Patient has a history of PUD, had EGD on revealing 1 cm postbulbar duodenal ulcer without active bleeding. ? Patient states he continues to have intermittent coffee-ground emesis, dark stools. ? Hemoglobin on admission 14.1. Likely hemoconcentrated, as it has been stable around 11.5 ? At the same time, patient has continued to drink alcohol since discharge. He was counseled to subside drinking given PUD. ? He states he stopped drinking about a week ago because he could not keep anything down due to abdominal pain, nausea/vomiting. ? CT abdomen/pelvis did not show acute intra-abdominal findings. ? AST/ALT ratio 73/24 suggestive of alcohol liver disease but not overt hepatitis. ? Dark stools, coffee-ground emesis seem to be chronic in nature as hemoglobin was stable. However, BUN 41 on admission is above his discharge BUN of 35. Improved to 32 today. ? GI consulted, performed EGD 04/10/2024 s/p Endo Clip placement of duodenal ulcer. ? Nausea/vomiting/diarrhea may also be related to alcohol, Suboxone withdrawal. ? IV Zofran as needed. ? IV Protonix 40 mg twice daily. Plan to switch to oral tomorrow once withdrawal resolves as below. ? Continuous telemetry. #Hypokalemia ? Repleting. #Severe malnutrition ? Nutrition is consulted, started meal supplementation. Full code SCDs
[2024-04-14] MEDS: METRONIDAZ/SOD CHL 500 MG/100 ML PIGGYBACK 100 MG IV (21:25)
[2024-04-14] MEDS: MIRTAZAPINE 15 MG TABLET PO (21:26)
[2024-04-14] MEDS: PANTOPRAZOLE 40MG TABLET 40 MG PO (21:26)
[2024-04-14] MEDS: ACETAMINOPHEN 325MG TAB 650 MG PO (21:45)
--- NOTE | 2024-04-14 23:21 | PC.NURSE ---
[facility] was consulted at this time in regards to the patient's Flagyl order; it was administrated at a later time (21:25) due to previous shift complications, and a previously administrated antibiotic was still infusing. I requested for the antibiotic to be re-timed appropriately per AUG.
--- NOTE | 2024-04-14 23:59 | EXP.EVENT.NO ---
#SVT - Patient went into relatively asymptomatic stable SVT this morning, HR up to 170s sustaining. - Several valsava maneuvers attempted without success. - Responded and resolved after Adenosine 6mgx1, 12mgx1. - Blood pressures soft after adenosine SBP 80-90s, gave 1L fluid. Continue to monitor. - K>4, Mg>2. - Continous tele.
[2024-04-15] VITALS (17 sets, daily range): BP systolic 103–128; BP diastolic 60–77; PULSE 62–92; RESP 16–21; TEMP 36.7–37.6; O2SAT 92–100; BMI 23.5
[2024-04-15] MEDS: diazePAM 10MG/2ML SYRINGE 5 MG IV ×3 (00:05→08:38)
[2024-04-15] MEDS: miSOPROStoL 200 MCG TABLET PO ×2 (05:11→12:06)
[2024-04-15] MEDS: METRONIDAZ/SOD CHL 500 MG/100 ML PIGGYBACK 100 MG IV (05:11)
[2024-04-15] MEDS: ONDANSETRON 4MG/2ML VIAL 4 MG IV (05:25)
--- NOTE | 2024-04-15 05:37 | PC.NURSE ---
Patient is alert and oriented x4. Patient has been scored for a CIWA scale every 4 hours this shift; his scores have been 7 (20:00), 9 (00:00), and 10 (04:00). He was given diazepam accordingly per CIWA scores and per MAR (5 mg/1 mL). He was also given his scheduled medications and IV antibiotics per MAR. Flagyl was re-timed this shift (see prior note). He was observed to have eyes closed, respirations even and unlabored on room air, and no apparent distress through the majority of the night. However, patient has reported having a lot of anxiety, some nausea, and has been coughing up sputum intermittently throughout the shift. He also reported occasionally seeing a cat or a dog running around his room. Upon auscultation, patient's lung sounds were diminished and his bowel sounds were active. Vital signs have been stable this shift; however, his blood pressures have been soft. He is hooked up to the dynascope. Seizure pads are in place. Patient was given vanilla and chocolate pudding cups for a bedtime snack. He has been NPO since midnight. Scheduled duonebs were administrated this shift. He was also given zofran once this shift per AUG, due to complaints of an upset stomach and nausea. At this time, patient is resting and sitting up in bed. No further complaints were reported. No acute changes noted thus far. Call light within reach.
[2024-04-15] MEDS: IPRATROPIUM/ALBUTEROL 3 ML NEB IH ×2 (06:02→12:39)
[2024-04-15] MEDS: BUDESONIDE 0.5MG/2ML NEB 0.5 MG IH (06:02)
[2024-04-15] MEDS: FLUTICASONE/SALMETEROL 250/50MCG DISKUS 1 PUFF IH (06:07)
[2024-04-15] MEDS: 0.9 % SODIUM CHLORIDE 1000ML 1,000 ML 50 ML IV (06:13)
[2024-04-15 06:48] LABS: Basophils % 0.2 % (0.1-2.0); Eosinophils # 0.1 K/mm3 (0.0-0.4); Eosinophils % 0.6 % (0.1-12.0); Hematocrit 36.7 % (42.0-52.0); Lymphocytes # 1.8 K/mm3 (0.7-4.5); Lymphocytes % 18.2 % (10-50); Mean Corpuscular HGB Conc 31.5 g/dL (31.8-35.4); Mean Corpuscular Volume 98.3 fl (80-94); Mean Platelet Volume 7.6 fl (7.4-10.4); Monocytes # 0.5 K/mm3 (0.1-1.0); Monocytes % 5.2 % (1.7-9.3); Neutrophils # 7.4 K/mm3 (1.8-7.8); Neutrophils % 75.7 % (37.0-80.0); Platelet Count 444 K/mm3 (142-424); Red Blood Count 3.74 M/mm3 (4.60-6.20); Red Cell Distribution Width 16.3 % (11.5-17.5); White Blood Count 9.7 K/mm3 (4.8-10.8)
[2024-04-15 07:00] LABS: Hemoglobin 11.6 g/dL (14.1-18.0)
[2024-04-15 07:07] LABS: Blood Urea Nitrogen 13 mg/dl (9-20); Calcium 7.9 mg/dl (8.4-10.2); Carbon Dioxide 31 mmol/L (22.0-30.0); Chloride 104 mmol/L (98-107); Creatinine Clearance Estimated 178 mL/min (50-200); Estimated Glomerular Filt Rate 177 ml/min (>60); GFR (African American) 214 ML/MIN (>60); Glucose 79 mg/dl (74-100); Sodium 134 mmol/L (136-145)
[2024-04-15 07:57] LABS: Magnesium 1.8 mg/dl (1.6-2.3); Phosphorous 3.9 mg/dl (2.5-4.5)
--- NOTE | 2024-04-15 08:00 | CA_ITS ---
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 Type of Sedation : MAC Sedation was administered by Harman GrijalvaNReyna Sedation start time: 10:40 Case end Time: 10:55 Transesophageal probe was inserted and advanced into esophagus without difficulty by Dr. Claudio Meyer. The LOW was performed without complications. Throughout the procedure, the blood pressure, pulse oximetry, cardiac rhythm, and rate were monitored. The patient tolerated the procedure without adverse effects. Recovery from conscious sedation was uneventful and vital signs were stable. Left Ventricle The left ventricle is normal size. There is normal left ventricular wall thickness. There is normal LV segmental wall motion. LVEF is 55%. Right Ventricle The right ventricle is normal size. The right ventricular systolic function is normal. Atria The left atrium size is normal. No thrombus is visualized in the left atrium or appendage. The right atrium size is normal. Interatrial septum is intact without evidence of ASD or PFO. Aortic Valve The aortic valve is normal in structure. The aortic valve is trileaflet. No aortic regurgitation is present. There is no aortic valvular vegetation. Mitral Valve The mitral valve is normal in structure. No evidence of mitral valve stenosis. Trace mitral regurgitation. There is no evidence of mitral valve vegetations. Tricuspid Valve The tricuspid valve leaflets are thin and pliable. Mild tricuspid regurgitation. RVSP 70 mmHg plus RA pressure. There is no tricuspid valve vegetations. Pulmonic Valve The pulmonary valve is normal in structure. Trace pulmonic regurgitation. There is no pulmonic valve vegetations. Great Vessels The aortic root is normal in size. The ascending aorta is normal in size. Pericardium There is no pericardial effusion. Other Information Study Quality: Adequate Conclusion Normal biventricular systolic function. Mild TR. No evidence of valvular vegetations. Electronically signed by : Danay Meyer MD 04/16/2024 11:47:19
[2024-04-15] MEDS: SODIUM PHOSPHATE 15 MMOL in 0.9 % SODIUM CHLORIDE 250 ML 63.75 MMOL IV (08:21)
[2024-04-15] MEDS: ARIPiprazole 10MG TABLET 5 MG PO (08:22)
[2024-04-15] MEDS: AMOXICILLIN/CLAVULANATE POTASSIUM 875/125MG TABLET 1 EACH PO ×2 (08:22→12:10)
[2024-04-15] MEDS: FOLIC ACID 1MG TABLET 1 MG PO (08:23)
[2024-04-15] MEDS: BUPRENORPHINE/NALOXONE 8MG/2MG ODT 2 EACH SL (08:26)
[2024-04-15] MEDS: ACETAMINOPHEN 325MG TAB 650 MG PO (08:38)
--- NOTE | 2024-04-15 09:31 | P.PN_ITS ---
Subjective *Date: 04/15/24 *Time: 10:04 Pulmonology Exam Inpatient Vital signs and Labs for Last 24 Hours: Temp Pulse Resp BP Pulse Ox O2 Del Method O2 Flow Rate 99.7 F H 75 17 105/65 L 96 Nasal Cannula 2 04/15/24 07:51 04/15/24 07:51 04/15/24 07:51 04/15/24 07:51 04/15/24 07:51 04/15/24 07:51 04/14/24 18:31 Laboratory Results - last 24 hr 04/14/24 17:38: VBG Lactic Acid 1.8 04/14/24 18:44: Procalcitonin 0.336 04/15/24 05:30: WBC 9.7, RBC 3.74 L, Hgb 11.6 L D, Hct 36.7 L, MCV 98.3 H, MCH 31.0, MCHC 31.5 L, RDW 16.3, Plt Count 444 H D, MPV 7.6, Neut % (Auto) 75.7, Lymph % (Auto) 18.2, [place] % (Auto) 5.2, Eos % (Auto) 0.6, Baso % (Auto) 0.2, Neut # (Auto) 7.4, Lymph # (Auto) 1.8, [place] # (Auto) 0.5, Eos # (Auto) 0.1, Baso # (Auto) 0.0, Sodium 134 L, Potassium 4.0, Chloride 104, Carbon Dioxide 31 H, Anion Gap 3.0 L, BUN 13, Creatinine 0.50 L, Estimated Creat Clear 178, Estimated GFR 177, Est GFR ( Amer) 214, Glucose 79, Calcium 7.9 L, Phosphorus 3.9 D, Magnesium 1.8 I & O for Labs for Last 24 Hours: Intake & Output 04/12/24 04/13/24 04/14/24 04/15/24 23:59 23:59 23:59 23:59 Intake Total 2230 / 2470 820 / 820 605 / 1885 1280 / 1280 Output Total 0 / 0 0 / 550 550 / 550 Balance 2230 / 2470 820 / 820 605 / 1335 730 / 730 Weight 155 lb 1 oz 159 lb 4.8 oz 160 lb 3.2 oz 155 lb Microbiology Reports for the Last 24 Hours: Microbiology 04/10/24 Unknown Bronchial Lavage - Right Lower Lobe Gram Stain - Final 04/10/24 Unknown Bronchial Lavage - Right Lower Lobe Bronchoalveolar Lavage Culture - Final No growth. 04/10/24 Unknown Transbronchial Biopsy - Right Lower Lobe Gram Stain - Final 04/10/24 Unknown Transbronchial Biopsy - Right Lower Lobe Surgical Biopsy Culture - Preliminary NO GROWTH AFTER 4 DAYS 04/09/24 13:31 Blood Blood Culture - Final NO GROWTH AFTER 5 DAYS 04/09/24 12:45 Blood Blood Culture - Final NO GROWTH AFTER 5 DAYS 04/10/24 06:30 Sputum - Expectorated Sputum Gram Stain - Final 04/10/24 06:30 Sputum - Expectorated Sputum Sputum Culture - Final Gemella morbillorum Assessment and Plan *Assessment and plan (1) Pneumonia: Status: Acute Category: Medical Code(s): J18.9 - Pneumonia, unspecified organism (2) Necrotizing pneumonia: Status: Acute Category: Medical Code(s): J85.0 - Gangrene and necrosis of lung Plan Mr. Dave is a 48-year-old with reported history of asthma on albuterol inhaler on as-needed basis, PUD, gastritis, history of GI bleeds, tobacco and substance abuse presented to ER with worsening respiratory distress along with cough and productive phlegm for the last 3 weeks progressively getting worse. Afebrile. Hemodynamically stable. Neutrophilic predominant leukocytosis upon admission improving. Patient on admission was initiated on vancomycin and cefepime and azithromycin. Prior blood cultures and sputum cultures grew Pseudomonas, enterobacter and Streptococcus sensitive to levofloxacin. CT chest performed on admission dense consolidative airspace disease/necrotizing pneumonia in the right lower lobe. No other airspace disease noted. Left hilar lymphadenopathy noted. Subcarinal calcified lymphadenopathy. No other significant lymphadenopathy appreciated. The noted airspace disease is not present on patient's CT from 03/13/2024. CT chest from November 2023 bilateral patchy airspace disease howeverthis is present on the right lower lobe. TTE did not show any obvious evidence of vegetations. Repeat chest x-ray and CT chest continue to show improving right lower lobe pneumonia Cultures were positive for Pseudomonas from 03/13/2024, no clinical indication for pseudomonal coverage at this point of time as cultures has been negative on this admission. Will continue Augmentin. Pending LOW. Interval update: No acute respiratory vents overnight. Plan: Continue Augmentin to complete a total of 14-day course for RLL Pneumonia. Advair 250 BID DuoNebs every 6 hours scheduled # Thank you for involving pulmonary in this patient care. Patient can be discharged on pulmonary standpoint. Will follow the patient in pulmonary clinic in 5 to 7 days postdischarge.
--- NOTE | 2024-04-15 09:31 | P.PNANES_ITS ---
[facility] Disclaimer: The information contained in this section may have been updated after the patient was seen, as this information can be updated by other users. Medical History Duodenal ulcer Necrotizing pneumonia Pneumonia Drug abuse and dependence Back pain Rib pain Shoulder pain Neck pain Acute UTI Back pain Ankle fracture Fracture of distal end of fibula Sinusitis Cellulitis Exposure to COVID-19 virus PTSD (post-traumatic stress disorder) Acute blood loss anemia Anemia Peptic ulcer disease with hemorrhage Chronic pain Anxiety Acute bronchitis Elbow pain, left Acute urinary tract infection Leukocytosis Acute appendicitis High risk medication use Tobacco abuse Asthma exacerbation Depression Anxiety Traumatic brain injury Surgical History History of foot surgery H/O lithotripsy History of appendectomy H/O right knee surgery H/O anterior cruciate ligament surgery Previous back surgery Family History Grandmother Cancer Diabetes Stroke Grandfather Cancer Mother Diabetes Hypertension Social History Smoking Status: Current every day smoker tobacco type: cigarettes packs per day: 1 alcohol intake: current alcohol intake frequency: a few times a week counseling provided: provider counseling substance use type: former substance user and prescription drug current occupational status: disabled Travel in the last 8 weeks: None household members: significant other housing: house current occupational exposures/hazards: No caffeine: No [facility] Anesthesia Checklist Patient Identification Patient Identification: Arm Band and Verbal (Name & ) Structural Data Admitted From: Inpatient Planned Operative Procedure/s: LOW Consent for Planned Operative Procedure(s) Verified: Yes Verified Documents: Surgical Consent and History and Physical NPO Status Verified Time NPO: 00:00 Chart Verification Results Verified: CBC and BMP Additional verifications Anesthesia Reactions: No Hx Blood Transfusions: No Blood Transfusion Reaction: No Airway Assessment Mallampati Score:: Class I C-Spine Mobility Assessed: Yes TMJ Mobility Assessed: Yes Dentition: Poor Dentition Neurological Assessment Level of Consciousness: Awake Hx Seizures: No Numbness or tingling in extremities: No Anesthesia Plan Anesthesia Risk discussed: Yes Anesthesia Plan: Verified ASA Class: IV Anesthesia Type: MAC
--- NOTE | 2024-04-15 10:51 | EXP.CARD.PN ---
Subjective Subjective Date: 04/15/24 Time: 08:30 Interval history: Doing well. No issues reported over the night, no further episodes of svt noted. patient awaiting LOW today. Morning labs reviewed. Exam Data for Last 24 hours Vital signs and Labs for Last 24 Hours: Temp Pulse Resp BP Pulse Ox O2 Del Method O2 Flow Rate 99.7 F H 75 17 105/65 L 96 Room Air 2 04/15/24 07:51 04/15/24 07:51 04/15/24 07:51 04/15/24 07:51 04/15/24 07:51 04/15/24 09:00 04/14/24 18:31 Laboratory Results - last 24 hr 04/14/24 17:38: VBG Lactic Acid 1.8 04/14/24 18:44: Procalcitonin 0.336 04/15/24 05:30: WBC 9.7, RBC 3.74 L, Hgb 11.6 L D, Hct 36.7 L, MCV 98.3 H, MCH 31.0, MCHC 31.5 L, RDW 16.3, Plt Count 444 H D, MPV 7.6, Neut % (Auto) 75.7, Lymph % (Auto) 18.2, [place] % (Auto) 5.2, Eos % (Auto) 0.6, Baso % (Auto) 0.2, Neut # (Auto) 7.4, Lymph # (Auto) 1.8, [place] # (Auto) 0.5, Eos # (Auto) 0.1, Baso # (Auto) 0.0, Sodium 134 L, Potassium 4.0, Chloride 104, Carbon Dioxide 31 H, Anion Gap 3.0 L, BUN 13, Creatinine 0.50 L, Estimated Creat Clear 178, Estimated GFR 177, Est GFR ( Amer) 214, Glucose 79, Calcium 7.9 L, Phosphorus 3.9 D, Magnesium 1.8 I & O for Last 24 hours: Intake & Output 04/12/24 04/13/24 04/14/24 04/15/24 23:59 23:59 23:59 23:59 Intake Total 2230 / 2470 820 / 820 605 / 1885 1280 / 1280 Output Total 0 / 0 0 / 550 550 / 550 Balance 2230 / 2470 820 / 820 605 / 1335 730 / 730 Weight 155 lb 1 oz 159 lb 4.8 oz 160 lb 3.2 oz 155 lb Microbiology Reports for the Last 24 Hours: Microbiology 04/10/24 Unknown Bronchial Lavage - Right Lower Lobe Gram Stain - Final 04/10/24 Unknown Bronchial Lavage - Right Lower Lobe Bronchoalveolar Lavage Culture - Final No growth. 04/10/24 Unknown Transbronchial Biopsy - Right Lower Lobe Gram Stain - Final 04/10/24 Unknown Transbronchial Biopsy - Right Lower Lobe Surgical Biopsy Culture - Preliminary NO GROWTH AFTER 4 DAYS 04/09/24 13:31 Blood Blood Culture - Final NO GROWTH AFTER 5 DAYS 04/09/24 12:45 Blood Blood Culture - Final NO GROWTH AFTER 5 DAYS 04/10/24 06:30 Sputum - Expectorated Sputum Gram Stain - Final 04/10/24 06:30 Sputum - Expectorated Sputum Sputum Culture - Final Gemella morbillorum Constitutional Constitutional: no acute distress *Routine Respiratory Exam Respiratory: Present CTA bilaterally and symmetric chest movement *Routine Cardiovascular Exam Cardiovascular: Present RRR, Normal S1 and Normal S2 *Routine Abdominal Exam Abdominal: Present soft and normoactive bowel sounds; Absent tenderness *Routine Extremities Exam Extremities: Present full ROM and normal capillary refill; Absent edema *Routine Skin Exam Skin: Present intact, dry and warm Detailed Neck Exam: Thyroids Thyroid: Absent bruit Progress Note: A&P Assessment and plan (1) Pneumonia: Status: Acute (2) Necrotizing pneumonia: Status: Acute Assessment and Plan Assessment and Plan for All Diagnoses:: SVT- resolved Episode of SVT yesterday with rates ranging from 150-170 Adenosine given and converted to NSR Hesitant to start BB due to hypotension. IF BP is reasonable can start low dose Toprolol for rate control If blood pressure remains low and patient develops SVT again can consider use of amiodarone for rate control Recommend 2 week event monitor for discharge monitoring Right 10 cm mid lung opacity, necrotizing pneumonia Suspected hospital-acquired necrotizing pneumonia CXR reveals 10 cm rounded masslike opacity in the right midlung. Chest suggests 10 cm rounded opacity is highly suggestive of necrotizing pneumonia. Pulmonology following. Performed bronchoscopy and obtained tissue samples. Pseudomonal bacteremia, resolved Blood culture 03/13/2024 positive for pseudomonas pseudoalcaligenes. Cultures pending TTE did not show vegetation. Patient states he has never used IV drugs 04/15/2024: Normal LOW, no endocarditis noted. Official read is pending. Nausea/vomiting Generalized abdominal pain Coffee-ground emesis, dark stools Patient has a history of PUD, had EGD on revealing 1 cm postbulbar duodenal ulcer without active bleeding. Patient states he continues to have intermittent coffee-ground emesis, dark stools. Hemoglobin on admission 14.1. Likely hemoconcentrated, as it has been stable around 11.5, 11.6 today ETOH use present CT abdomen/pelvis did not show acute intra-abdominal findings. AST/ALT ratio 73/24 suggestive of alcohol liver disease but not overt hepatitis. Dark stools, coffee-ground emesis seem to be chronic in nature as hemoglobin was stable. However, BUN 41 on admission is above his discharge BUN of 35. Improved to 13 today. GI consulted, performed EGD 04/10/2024 s/p Endo Clip placement of duodenal ulcer. Nausea/vomiting/diarrhea may also be related to alcohol, Suboxone withdrawal. IV Zofran as needed. Protonix 40 mg twice daily. Continuous telemetry. Alcohol withdrawal Suboxone withdrawal Substance use disorder Patient was visibly anxious, and endorses hallucinations on admission. However, much more stable today as withdrawal is improving. Patient states last drink was about a week ago before admission, though this does not fit timeline for withdrawals. Defer to primary service Hypokalemia- resolved PCP replacing, potassium 4 today CV summary 04/15/2024: No further episodes of SVT noted. LOW performed today-negative for endocarditis. Official read pending. Recommend to send patient home with a 2-week event monitor for further monitoring for episodes of SVT. Cardiology will sign off. Please have patient follow-up in cardiology clinic in 1 to 2 weeks post discharge.
[2024-04-15 12:40] LABS: Microscopic, Urine URINE MICROSCOPIC (MICROSCOPIC)
[2024-04-15 12:43] LABS: Appearance,Urine CLEAR (Clear); Bilirubin,Urine Negative (Negative); Blood, Urine Negative (Negative); Color,Urine YELLOW (Yellow); Glucose,Urine (UA) Negative (Negative); Ketones,Urine Negative (Negative); Leukocyte Esterase,Urine Negative (Negative); Nitrate,Urine Negative (Negative); Protein,Urine Negative (Negative); Specific Gravity, Urine <= 1.005 (1.005-1.030); Urobilinogen,Urine 0.2 EU/dl (0.2)
--- NOTE | 2024-04-15 13:39 | EXP.DC.SUM ---
General Admission date:: 04/09/24 Discharge date: 04/15/24 HPI HPI HPI: Brandon Dave is a 48-year-old male with medical history significant for PUD/gastritis with GI bleeds, current smoker, alcohol use disorder, substance use disorder on Suboxone for nausea/vomiting, worsening cough. Patient states the coughing began about 3 weeks ago, and the nausea/vomiting began about a week ago. He states he stopped drinking about a week ago. He endorses epigastric abdominal pain, with generalized abdominal cramping. Of note, he was recently discharged on 03/14/2024 for upper GI bleed. Workup in the ED significant for heart rate up to 119, BP as low as 99/59, WBC 15.9, hemoglobin 14.1, potassium 3.0, BUN 41, AST ALT 73/24, procalcitonin 8.6. UDS negative. CTA abdomen/pelvis did not reveal acute intra-abdominal findings, but did suggest right lung airspace opacity. Case was discussed with ED provider, and decision was made to admit patient for sepsis from suspected pneumonia. per hospitalist This is a 48-year-old male with a history of chronic alcohol consumption and a history of daily ibuprofen use this past summer. He was hospitalized in November for GI bleed. He underwent EGD with Dr. Nieves 11/2019 he found Schatzki's ring, gastritis, and duodenal ulcer that was oozing status post epinephrine injection. He was unable to place an Endo Clip at the time. He did return to the ER 02/2024 for upper GI bleed with coffee-ground emesis and maroon stools. He was drinking alcohol daily and taking 800 mg of ibuprofen daily. He underwent EGD again with Dr. Nieves who found gastritis as well as 1 cm inflamed duodenal ulcer. The patient was placed on Protonix but unsure of compliance. Patient is still somewhat sedated after bronchoscopy and unable to give an accurate history but can answer some questions. He had continued to drink alcohol. Was having coffee-ground emesis. He returned yesterday to the ER. He is having nausea vomiting epigastric pain coffee-ground emesis and some dark red blood in his vomit. CT scan did note pneumonia and he has been admitted. He did have an elevated BUN but hemoglobin of 14.1. After rehydration that dropped to 11.3. This is consistent with where his hemoglobin was during hospitalization 1 month ago. He has not had vomiting today per nursing staff. He did have a bowel movement yesterday but no obvious signs of melena or hematochezia at the time. Hospital Course Hospital Course Hospital Course: Brandon Dave is a 48-year-old male with medical history significant for PUD/gastritis with GI bleeds, current smoker, alcohol use disorder, substance use disorder on Suboxone for nausea/vomiting, worsening cough. Patient states the coughing began about 3 weeks ago, and the nausea/vomiting began about a week ago. He states he stopped drinking about a week ago. He endorses epigastric abdominal pain, with generalized abdominal cramping. Of note, he was recently discharged on 03/14/2024 for upper GI bleed. Workup in the ED significant for heart rate up to 119, BP as low as 99/59, WBC 15.9, hemoglobin 14.1, potassium 3.0, BUN 41, AST ALT 73/24, procalcitonin 8.6. UDS negative. CTA abdomen/pelvis did not reveal acute intra-abdominal findings, but did suggest right lung airspace opacity. Case was discussed with ED provider, and decision was made to admit patient for sepsis from suspected pneumonia. Initiated on antibiotics. Pulmonology was consulted to assist with care. Patient overall doing well and will transition to Augmentin to complete course of antibiotics. Additionally found to have abdominal pain along with GI bleed with a history of duodenal ulcer. GI was consulted to assist with care. EGD performed with ulcer clipped. Hemoglobin remained stable. Meeting criteria for discharge home with continued outpatient follow-up. Problems addressed as follows: #Right 10 cm mid lung opacity, necrotizing pneumonia #Suspected hospital-acquired necrotizing pneumonia # Acute COPD exacerbation ? Patient has been having green productive cough for the past 3 weeks since discharge from the hospital. He stated the right side of his ribs hurt with coughing, and feels like something is pushing into his right ribs. CXR reveals 10 cm rounded masslike opacity in the right midlung. CT chest suggests 10 cm rounded opacity is highly suggestive of necrotizing pneumonia. Blood cultures from 3 weeks ago to show pseudomonal growth. Essentially pansensitive. Initial WBC 15.9, with tachycardia. Procalcitonin 8.6. Given 2 L of sepsis bolus. White count showed gradual improvement. Fevers resolved. Pulmonology was consulted. Recommended transitioning antibiotics from levofloxacin to Augmentin 3 times a day. Repeat blood cultures remain negative, no indication to continue treatment for Pseudomonas at discharge. Will complete 14 days total of antibiotics requiring an additional 7 days of oral antibiotics after discharge. Bronchoscopy was performed during hospitalization. Tissue samples pending at discharge. Will have close follow-up with pulmonology after discharge. ? Moderate wheezing on bilateral lung piña on admission. DuoNebs as needed, Pulmicort twice daily. Finished solumedrol after 5 days. Viral respiratory panel negative. On room air by day of discharge #SVT, resolved - Patient went into relatively asymptomatic stable SVT during admission. Heart rate up to the 170s sustained. Several valsava maneuvers attempted without success. Responded and resolved after Adenosine 6mgx1, 12mgx1. Blood pressures soft after adenosine SBP 80-90s, gave 1L fluid. Blood pressure normalized. Electrolytes were replaced. Continue beta-brenden at discharge. No further events on telemetry #Dyspepsia, abdominal discomfort Duodenal ulcer# - Had duodenal ulcer clipped on 04/10. Has complained of abdominal discomfort, hiccups, dyspepsia, and decreased appetite for the past day. CT abdomen shows distal esophageal thickening and dilation. GI was consulted. EGD performed. Clean base noted. Continue PPI and sucralfate. Follow-up as an outpatient for reevaluation. #Pseudomonal bacteremia, resolved ? Blood culture 03/13/2024 positive for pseudomonas pseudoalcaligenes. Repeat cultures during admission no growth to date 48 hours. TTE did not show vegetation. #Alcohol withdrawal #Suboxone withdrawal #Substance use disorder ? Patient was visibly anxious, and endorses hallucinations on admission. Initiated on CIWA protocol. Scores decreased over the course of his stay. Treated with vitamin supplementation per protocol. Resumed his home Suboxone with good tolerance. No signs of withdrawal on day of discharge. Further management as an outpatient #Nausea/vomiting #Generalized abdominal pain #Coffee-ground emesis, dark stools ? Patient has a history of PUD, had EGD on revealing 1 cm postbulbar duodenal ulcer without active bleeding. ? Patient states he continues to have intermittent coffee-ground emesis, dark stools. ? Hemoglobin on admission 14.1. Likely hemoconcentrated, as it has been stable around 11.5 ? At the same time, patient has continued to drink alcohol since discharge. He was counseled to subside drinking given PUD. ? He states he stopped drinking about a week ago because he could not keep anything down due to abdominal pain, nausea/vomiting. ? CT abdomen/pelvis did not show acute intra-abdominal findings. ? AST/ALT ratio 73/24 suggestive of alcohol liver disease but not overt hepatitis. ? Dark stools, coffee-ground emesis seem to be chronic in nature as hemoglobin was stable. However, BUN 41 on admission is above his discharge BUN of 35. Improved to 32 today. ? GI consulted, performed EGD 04/10/2024 s/p Endo Clip placement of duodenal ulcer. ? Nausea/vomiting/diarrhea may also be related to alcohol, Suboxone withdrawal. ? IV Zofran as needed. ? IV Protonix 40 mg twice daily. Plan to switch to oral tomorrow once withdrawal resolves as below. ? Continuous telemetry. #Hypokalemia: Resolved #Severe protein calorie malnutrition: Nutrition is consulted, started meal supplementation. Total time spent on discharge 32 minutes in counseling, documentation, chart review, and direct care with patient. Exam Data for Last 24 hours Vital signs and Labs for Last 24 Hours: Temp Pulse Resp BP Pulse Ox O2 Del Method O2 Flow Rate 98.8 F 77 17 107/68 L 96 Room Air 5 04/15/24 12:17 04/15/24 12:40 04/15/24 12:17 04/15/24 12:17 04/15/24 12:17 04/15/24 12:17 04/15/24 10:32 Laboratory Results - last 24 hr 04/14/24 17:38: VBG Lactic Acid 1.8 04/14/24 18:44: Procalcitonin 0.336 04/15/24 05:30: WBC 9.7, RBC 3.74 L, Hgb 11.6 L D, Hct 36.7 L, MCV 98.3 H, MCH 31.0, MCHC 31.5 L, RDW 16.3, Plt Count 444 H D, MPV 7.6, Neut % (Auto) 75.7, Lymph % (Auto) 18.2, [place] % (Auto) 5.2, Eos % (Auto) 0.6, Baso % (Auto) 0.2, Neut # (Auto) 7.4, Lymph # (Auto) 1.8, [place] # (Auto) 0.5, Eos # (Auto) 0.1, Baso # (Auto) 0.0, Sodium 134 L, Potassium 4.0, Chloride 104, Carbon Dioxide 31 H, Anion Gap 3.0 L, BUN 13, Creatinine 0.50 L, Estimated Creat Clear 178, Estimated GFR 177, Est GFR ( Amer) 214, Glucose 79, Calcium 7.9 L, Phosphorus 3.9 D, Magnesium 1.8 04/15/24 12:29: Urine Color Yellow, Urine Appearance Clear, Urine pH 7.0, Ur Specific [place] <= 1.005, Urine Protein Negative, Urine Glucose (UA) Negative, Urine Ketones Negative, Urine Blood Negative, Urine Nitrate Negative, Urine Bilirubin Negative, Urine Urobilinogen 0.2, Ur Leukocyte Esterase Negative, Urine RBC None, Urine WBC None, Ur Squamous Epith Cells None, Urine Bacteria None I & O for Last 24 hours: Intake & Output 04/12/24 04/13/24 04/14/24 04/15/24 23:59 23:59 23:59 23:59 Intake Total 2230 / 2470 820 / 820 605 / 1885 1280 / 1280 Output Total 0 / 0 0 / 550 550 / 550 Balance 2230 / 2470 820 / 820 605 / 1335 730 / 730 Weight 70.335 kg 72.257 kg 72.665 kg 70.307 kg Microbiology Reports for the Last 24 Hours: Microbiology 04/10/24 Unknown Bronchial Lavage - Right Lower Lobe Gram Stain - Final 04/10/24 Unknown Bronchial Lavage - Right Lower Lobe Bronchoalveolar Lavage Culture - Final No growth. 04/10/24 Unknown Transbronchial Biopsy - Right Lower Lobe Gram Stain - Final 04/10/24 Unknown Transbronchial Biopsy - Right Lower Lobe Surgical Biopsy Culture - Preliminary NO GROWTH AFTER 4 DAYS 04/09/24 13:31 Blood Blood Culture - Final NO GROWTH AFTER 5 DAYS 04/09/24 12:45 Blood Blood Culture - Final NO GROWTH AFTER 5 DAYS Constitutional Constitutional: no acute distress, thin, chronically ill appearing and cooperative *Routine HEENT Exam Head: Present normocephalic Eye: Present EOMI and PERRL ENT: Present mucous membranes moist *Routine Neck Exam Neck: Present supple; Absent lymphadenopathy *Routine Respiratory Exam Respiratory: Present rhonchi and normal respiratory effort; Absent accessory muscle use, wheezes or crackles *Routine Cardiovascular Exam Cardiovascular: Present RRR *Routine Abdominal Exam Abdominal: Present soft and normoactive bowel sounds; Absent tenderness or distended *Routine Rectal Exam Patient deferred: visual exam *Routine Exam Patient deferred: penile exam *Routine Extremities Exam Extremities: Absent cyanosis, clubbing or edema *Routine Skin Exam Skin: Present warm; Absent rash *Routine Neurological Exam Neurological: Present alert, oriented X3 and moving all extremities; Absent altered mental status Results Data Completed and Pending Labs on day of discharge: Labs from last 24 hours 04/15/24 04/15/24 04/14/24 12:29 05:30 18:44 WBC 9.7 RBC 3.74 L Hgb 11.6 L D Hct 36.7 L MCV 98.3 H MCH 31.0 MCHC 31.5 L RDW 16.3 Plt Count 444 H D MPV 7.6 Neut % (Auto) 75.7 Lymph % (Auto) 18.2 [place] % (Auto) 5.2 Eos % (Auto) 0.6 Baso % (Auto) 0.2 Neut # (Auto) 7.4 Lymph # (Auto) 1.8 [place] # (Auto) 0.5 Eos # (Auto) 0.1 Baso # (Auto) 0.0 VBG Lactic Acid Sodium 134 L Potassium 4.0 Chloride 104 Carbon Dioxide 31 H Anion Gap 3.0 L BUN 13 Creatinine 0.50 L Estimated Creat Clear 178 Estimated GFR 177 Est GFR ( Amer) 214 Glucose 79 Calcium 7.9 L Phosphorus 3.9 D Magnesium 1.8 Procalcitonin 0.336 Urine Color Yellow Urine Appearance Clear Urine pH 7.0 Ur Specific [place] <= 1.005 Urine Protein Negative Urine Glucose (UA) Negative Urine Ketones Negative Urine Blood Negative Urine Nitrate Negative Urine Bilirubin Negative Urine Urobilinogen 0.2 Ur Leukocyte Esterase Negative Urine RBC None Urine WBC None Ur Squamous Epith Cells None Urine Bacteria None 04/14/24 17:38 WBC RBC Hgb Hct MCV MCH MCHC RDW Plt Count MPV Neut % (Auto) Lymph % (Auto) [place] % (Auto) Eos % (Auto) Baso % (Auto) Neut # (Auto) Lymph # (Auto) [place] # (Auto) Eos # (Auto) Baso # (Auto) VBG Lactic Acid 1.8 Sodium Potassium Chloride Carbon Dioxide Anion Gap BUN Creatinine Estimated Creat Clear Estimated GFR Est GFR ( Amer) Glucose Calcium Phosphorus Magnesium Procalcitonin Urine Color Urine Appearance Urine pH Ur Specific [place] Urine Protein Urine Glucose (UA) Urine Ketones Urine Blood Urine Nitrate Urine Bilirubin Urine Urobilinogen Ur Leukocyte Esterase Urine RBC Urine WBC Ur Squamous Epith Cells Urine Bacteria Preliminary micro results at discharge 04/10/24 Unknown Surgical Biopsy Culture - Preliminary Transbronchial Biopsy - Right Lower Lobe NO GROWTH AFTER 4 DAYS DS: Diagnosis Discharge Diagnosis (1) Pneumonia: Status: Acute Code(s): J18.9 - Pneumonia, unspecified organism (2) Necrotizing pneumonia: Status: Acute Code(s): J85.0 - Gangrene and necrosis of lung (3) Duodenal ulcer: Status: Acute Code(s): K26.9 - Duodenal ulcer, unspecified as acute or chronic, without hemorrhage or perforation (4) Nausea: Status: Acute Code(s): R11.0 - Nausea (5) Dyspepsia: Status: Acute Code(s): R10.13 - Epigastric pain (6) Substance use disorder: Status: Acute Code(s): F19.90 - Other psychoactive substance use, unspecified, uncomplicated (7) SVT (supraventricular tachycardia): Status: Acute Code(s): I47.10 - Supraventricular tachycardia, unspecified (8) Severe protein-calorie malnutrition: Status: Acute Code(s): E43 - Unspecified severe protein-calorie malnutrition Meds Home Medications and Allergies Home Medications ?Medication ?Instructions ?Recorded ?Confirmed ?Type buprenorphine 8 mg-naloxone 2 mg 2 tab sublingual DAILY 08/17/22 04/10/24 History sublingual tablet acamprosate 333 mg tablet,delayed 333 mg PO TID 03/13/24 04/10/24 History release aripiprazole 5 mg tablet 5 mg PO DAILY 03/13/24 04/10/24 History buspirone 10 mg tablet 10 mg PO TIDP PRN Anxiety 03/13/24 04/10/24 History mirtazapine 15 mg tablet 15 mg PO HS 03/13/24 04/10/24 History nicotine 21 mg/24 hr daily 1 patch transdermal DAILY 03/13/24 04/10/24 History transdermal patch propranolol 10 mg tablet 10 mg PO TID 03/13/24 04/10/24 History ondansetron 4 mg disintegrating 4 mg PO Q8H PRN nausea and 03/14/24 04/10/24 Rx tablet vomiting #14 tabs pantoprazole 40 mg tablet,delayed 40 mg PO BID 30 days #60 tabs 03/14/24 04/10/24 Rx release sucralfate 1 gram tablet (Carafate) 1 g PO BID PRN abdominal pain #60 03/14/24 04/10/24 Rx tabs amoxicillin 875 mg-potassium 1 tab PO TID 7 days #21 tabs 04/15/24 Rx clavulanate 125 mg tablet fluticasone 250 mcg-salmeterol 50 1 inh inhalation BID 30 days #60 ea 04/15/24 Rx mcg/dose blistr powdr for inhalation (Advair Diskus) ipratropium 0.5 mg-albuterol 3 mg 3 ml inhalation Q6HP PRN shortness 04/15/24 Rx (2.5 mg base)/3 mL nebulization of breath or wheezing 30 days #180 soln mL New Prescriptions to Start Prescriptions: amoxicillin-pot clavulanate Michael Bernstein fluticasone propion-salmeterol [Advair Diskus] Michael Bernstein ipratropium-albuterol Michael Bernstein Allergies Allergy/AdvReac Type Severity Reaction Status Date / Time aspirin [ASPIRIN] Allergy Unknown Nose Bleed Verified 04/15/24 10:23 cephalexin [From Keflex] Allergy Gastrointestinal Verified 04/15/24 10:23 Upset piperacillin [From Zosyn] Allergy Hives Verified 04/15/24 10:23 tazobactam [From Zosyn] Allergy Hives Verified 04/15/24 10:23 Discharge Plan Disposition Patient Disposition: Home, Self-Care Condition: Fair Discharge Order Discharge Orders: Discharge Order (Routine); Ordered 04/15/24 Ordered By: Michael Bernstein Follow up Plan Follow up with: Daniel Moran II, MD [Staff Physician] - 04/28/24 2:00 pm Tim Rey MD [Primary Care Provider] - 04/18/24 1:00 pm Seb Hadley MD [Physician] - 04/28/24 1:00 pm Claudio Meyer MD [Staff Physician] - 04/30/24 2:30 pm Prescriptions/Medication Reconciliation: New fluticasone propion-salmeterol [Advair Diskus] 250-50 mcg/dose Blister With Device 1 inh inhalation BID 30 Days Qty: 60 0RF ipratropium-albuterol 0.5 mg-3 mg(2.5 mg base)/3 mL Solution For Nebulization 3 ml inhalation Q6HP PRN (Reason: shortness of breath or wheezing) 30 Days Qty: 180 0RF amoxicillin-pot clavulanate 875-125 mg Tablet 1 tab PO TID 7 Days Qty: 21 0RF Continued buprenorphine-naloxone 8-2 mg tablet, sublingual 2 tab sublingual DAILY Rx Instructions: VERIFIED DOSE WITH MARIBEL CROOKS propranolol 10 mg tablet 10 mg PO TID mirtazapine 15 mg tablet 15 mg PO HS aripiprazole 5 mg tablet 5 mg PO DAILY acamprosate 333 mg tablet,delayed release (DR/EC) 333 mg PO TID Patient Comments: Take 1 tablet by mouth three times a day buspirone 10 mg tablet 10 mg PO TIDP PRN (Reason: Anxiety) nicotine 21 mg/24 hr Patch 24 Hour 1 patch TRANSDERMAL DAILY sucralfate [Carafate] 1 gram tablet 1 g PO BID PRN (Reason: abdominal pain) Qty: 60 1RF Rx Instructions: Do not take within 1 hour of Protonix. ondansetron 4 mg tablet,disintegrating 4 mg PO Q8H PRN (Reason: nausea and vomiting) Qty: 14 0RF pantoprazole 40 mg tablet,delayed release (DR/EC) 40 mg PO BID 30 Days Qty: 60 1RF Rx Instructions: Take on empty stomach. Other Ambulatory Orders: Home Medical Equipment (Routine) Location: None Selected Ordered By: Michael Bernstein Problem Reconciliation Problems Reviewed?: Yes Patient Discharge Instructions ACTIVITY: Continue current activity DIET: continue same diet Patient Instructions: Duodenal Ulcer, DI for Pneumonia -- Adult, DI for Drug or Alcohol Withdrawal, DI for Sepsis -- Adult Print Language: Hebrew Providers Primary Care Provider: Tim Rey Admit Provider: Facundo Silver Attending Provider: Facundo Silver
--- NOTE | 2024-04-15 15:36 | PC.NURSE ---
Pt discharged at 1518 with heart monitor, medication from clinic pharmacy, car keys, suboxone that was locked in pt drawer, and nebulizer from [facility]. clinical services specialist Moon, took pt down to meet person giving him a ride home.
--- NOTE | 2024-04-15 16:27 | EXP.PN ---
Subjective *Date: 04/15/24 *Time: 07:15 Interval history: Saw patient earlier today. The patient has had ongoing symptoms with dyspepsia. He has substance abuse disorder with alcohol and has been on Suboxone. He also has a history of ibuprofen use this past summer. Exam Data for Last 24 hours Vital signs and Labs for Last 24 Hours: Temp Pulse Resp BP Pulse Ox O2 Del Method O2 Flow Rate 98.8 F 89 20 115/70 98 Room Air 5 04/15/24 12:17 04/15/24 14:47 04/15/24 14:47 04/15/24 14:47 04/15/24 14:47 04/15/24 15:00 04/15/24 10:32 Laboratory Results - last 24 hr 04/14/24 17:38: VBG Lactic Acid 1.8 04/14/24 18:44: Procalcitonin 0.336 04/15/24 05:30: WBC 9.7, RBC 3.74 L, Hgb 11.6 L D, Hct 36.7 L, MCV 98.3 H, MCH 31.0, MCHC 31.5 L, RDW 16.3, Plt Count 444 H D, MPV 7.6, Neut % (Auto) 75.7, Lymph % (Auto) 18.2, [place] % (Auto) 5.2, Eos % (Auto) 0.6, Baso % (Auto) 0.2, Neut # (Auto) 7.4, Lymph # (Auto) 1.8, [place] # (Auto) 0.5, Eos # (Auto) 0.1, Baso # (Auto) 0.0, Sodium 134 L, Potassium 4.0, Chloride 104, Carbon Dioxide 31 H, Anion Gap 3.0 L, BUN 13, Creatinine 0.50 L, Estimated Creat Clear 178, Estimated GFR 177, Est GFR ( Amer) 214, Glucose 79, Calcium 7.9 L, Phosphorus 3.9 D, Magnesium 1.8 04/15/24 12:29: Urine Color Yellow, Urine Appearance Clear, Urine pH 7.0, Ur Specific [place] <= 1.005, Urine Protein Negative, Urine Glucose (UA) Negative, Urine Ketones Negative, Urine Blood Negative, Urine Nitrate Negative, Urine Bilirubin Negative, Urine Urobilinogen 0.2, Ur Leukocyte Esterase Negative, Urine RBC None, Urine WBC None, Ur Squamous Epith Cells None, Urine Bacteria None I & O for Last 24 hours: Intake & Output 04/12/24 04/13/24 04/14/24 04/15/24 23:59 23:59 23:59 23:59 Intake Total 2230 / 2470 820 / 820 605 / 1885 1280 / 1280 Output Total 0 / 0 0 / 550 550 / 550 Balance 2230 / 2470 820 / 820 605 / 1335 730 / 730 Weight 155 lb 1 oz 159 lb 4.8 oz 160 lb 3.2 oz 155 lb Microbiology Reports for the Last 24 Hours: Microbiology 04/10/24 Unknown Transbronchial Biopsy - Right Lower Lobe Gram Stain - Final 04/10/24 Unknown Transbronchial Biopsy - Right Lower Lobe Surgical Biopsy Culture - Final NO GROWTH AFTER 5 DAYS 04/10/24 Unknown Bronchial Lavage - Right Lower Lobe Gram Stain - Final 04/10/24 Unknown Bronchial Lavage - Right Lower Lobe Bronchoalveolar Lavage Culture - Final No growth. 04/09/24 13:31 Blood Blood Culture - Final NO GROWTH AFTER 5 DAYS 04/09/24 12:45 Blood Blood Culture - Final NO GROWTH AFTER 5 DAYS *Routine Abdominal Exam Abdominal: Present soft and tenderness Comments: Mild epigastric tenderness Assessment and Plan *Assessment and plan (1) Dyspepsia: Status: Acute Category: Medical Code(s): R10.13 - Epigastric pain (2) Nausea: Status: Acute Category: Medical Code(s): R11.0 - Nausea (3) GI bleed due to NSAIDs: Status: Acute Category: Medical Code(s): K92.2 - Gastrointestinal hemorrhage, unspecified; T39.395A - Adverse effect of other nonsteroidal anti-inflammatory drugs [NSAID], initial encounter Plan 1. GI bleed. The patient has had stable hemoglobin and hematocrit. I do not feel that he is bleeding from this stable duodenal ulcer (medial wall/first portion of duodenum) which has no stigmata. I do feel that he may have other etiology and would like to make sure that this is not from other substance abuse such as cannabis and cannabinoid hyperemesis syndrome. He is to follow-up with me in a couple of weeks. Again, his hemoglobin/hematocrit are stable. He continues to have nausea and dyspepsia.
--- NOTE | 2024-04-15 19:48 | PEERSUPPORT ---
Peer Support Note Patient Information Patient Information: DOS:04/15/2024 Reason: Ps Follow up ? Pt is up on his feet and looking out the window. He happy to say he is being discharged. He says he is feeling weak still but muhc better. He shares it has been one week since he has had any alcohol and has no desire to drink. He feels this has been a wakeup call for him to make changes in his life. He is understandings of the importance of managing his medication as directed and willing to organize using a pill pack for doses each day so he does not forget. ? Pt is able to identify personal strengths with setting boundaries with toxic people feeling the difference in someone who shows care and compassion with self-gain to care and compassion without selfish intention. ? Ps provides a packet of medication list, calendars for appointment reminders, and topics to discuss with [place] therapist to maintain sobriety focused on underlying issues he stated while admitted to [facility]. 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 ? Ps will follow up weekly to assist with support and guidance to pts recovery. ? Thank you for allowing BÁRBARA Blakely ps to assist in caring for the patient!
--- NOTE | 2024-04-16 13:06 | SW/DCPLANNER ---
Hospital follow up phone call: patient stated that he is at home and feeling better. Patient is aware of all follow up appointments and was able to grape picker new medications. Patient did not have any further needs/concerns at this time.
== END 2024-04-15 15:18 | disposition home or self-care (01) | DRG 166 ==
LOC: ER 16:18 → 2ND 16:52
PROVIDERS: Emergency Medicine; Internal Medicine; Internal Medicine Gastroenterology; Internal Medicine Pulmonary Disease; Admitting Provider Student in an Organized Health Care Education/Training Program; Emergency Provider Emergency Medicine; PCP Family Medicine; Visit Provider Student in an Organized Health Care Education/Training Program
PROC: 0BBF8ZX Excision of Right Lower Lung Lobe, Via Natural or Artificial Opening Endoscopic, Diagnostic (ICD-10-PCS; principal; 2024-04-10 10:30)
PROC: 0DJ08ZZ Inspection of Upper Intestinal Tract, Via Natural or Artificial Opening Endoscopic (ICD-10-PCS; CPT 43235; principal; 2024-04-10 14:05)
DX: E43 Unspecified severe protein-calorie malnutrition (principal); K92.0 Hematemesis; J44.1 Chronic obstructive pulmonary disease with (acute) exacerbation; F10.239 Alcohol dependence with withdrawal, unspecified; I47.10 Supraventricular tachycardia, unspecified; J85.0 Gangrene and necrosis of lung; F11.23 Opioid dependence with withdrawal; R78.81 Bacteremia; E87.6 Hypokalemia; I10 Essential (primary) hypertension; E78.5 Hyperlipidemia, unspecified; F19.90 Other psychoactive substance use, unspecified, uncomplicated; F17.210 Nicotine dependence, cigarettes, uncomplicated; F41.9 Anxiety disorder, unspecified; F32.A Depression, unspecified; Z68.23 Body mass index [BMI] 23.0-23.9, adult; K26.9 Duodenal ulcer, unspecified as acute or chronic, without hemorrhage or perforation
CPT/HCPCS: 36415; 71045; 71260; 71275; 74174; 74177; 76000; 80048; 80053; 80202; 80307; 81001; 82550; 83605; 83690; 83735; 84100; 84145; 85007; 85025; 85610; 85730; 86803; 87040; 87070; 87077; 87081; 87102; 87116; 87186; 87205; 87206; 87265; 87389; 87486; 87581; 87632; 87635; 93005; 93270; 93306; 93312; 93319; 94640; 94761; 99285; J3490; C1726; C1760; J0153; J0456; J0574; J0692; J0696; J1100; J2060; J2250; J2270; J2405; J2704; J2919; J3010; J3360; J3411; J3475; J3480; J7030; J7050; J7120; J7620; Q9967; S0028

== ENCOUNTER 2024-08-02 03:33 | Inpatient (IN) | payer MEDICARE, MEDICAID, SELFPAY ==
[2024-08-02] VITALS (14 sets, daily range): BP systolic 85–147; BP diastolic 49–125; PULSE 54–90; RESP 16–22; TEMP 36.5–36.7; O2SAT 92–99; BMI 22.8; BMI 20.7
--- NOTE | 2024-08-02 03:40 | ED_ITS ---
Discharge Plan Disposition Patient Disposition: Admitted Chief Complaint: Nausea/Vomiting/Diarrhea Prescriptions Prescriptions: No Action buprenorphine-naloxone 8-2 mg tablet, sublingual 2 tab sublingual DAILY Rx Instructions: VERIFIED DOSE WITH MARIBEL CROOKS misoprostol 200 mcg tablet 200 mcg PO BID Qty: 60 2RF fluticasone propion-salmeterol [Advair Diskus] 250-50 mcg/dose blister with device 1 inh inhalation BID 30 Days Qty: 60 0RF pantoprazole 40 mg tablet,delayed release (DR/EC) 40 mg PO BID 30 Days Qty: 60 1RF Rx Instructions: Take on empty stomach. venlafaxine [Effexor XR] 37.5 mg capsule,extended release 24hr 37.5 mg PO DAILY Qty: 30 0RF albuterol sulfate 90 mcg/actuation HFA aerosol inhaler 2 puff inhalation Q6H PRN (Reason: shortness of breath or wheezing) Qty: 8.5 2RF clonazepam [Klonopin] 1 mg tablet 1 mg PO BID Qty: 30 0RF propranolol 10 mg tablet 10 mg PO TID acamprosate 333 mg tablet,delayed release (DR/EC) 333 mg PO TID Patient Comments: Take 1 tablet by mouth three times a day ipratropium-albuterol 0.5 mg-3 mg(2.5 mg base)/3 mL Solution For Nebulization 3 ml inhalation Q6HP PRN (Reason: shortness of breath or wheezing) 30 Days Qty: 180 0RF Referrals Follow up/Referrals: Provider,Referral, MD [Primary Care Provider] - See instructions Clinical Impressions Clinical Impression: Alcohol withdrawal, Abdominal pain, Acute hypokalemia, Hypomagnesemia, Hypophosphatemia Instructions Patient Instructions: DI for Diarrhea and Traveler's Diarrhea -- Adult, DI for Diarrhea and Traveler's Diarrhea -- Child, DI for Nausea -- Adult, DI for Nausea -- Child Print Language Print Language: Syriac Discharge ED Provider: Osmar Mccarty General Adult HPI General Chief complaint: Nausea/Vomiting/Diarrhea Stated complaint: nausea Time Seen by Provider: 08/02/24 03:35 History of Present Illness HPI narrative: 48-year-old male with history of alcoholism, prior duodenal ulcers, esophagitis presents for multiple complaints. Patient has not been able to have anything to drink for at least 2 days. Reports drinking at least 6 fireball's per day normally. Patient has had about a month of worsening abdominal pain and vomiting, reports losing approximately 30 pounds recently. On arrival patient is in obvious alcohol withdrawal, tremors, complaining of maddox positive review of systems. Actively vomiting, nonbloody nonbilious. Denies any blood in his stool or vomit recently. Related Data Home Medications ?Medication ?Instructions ?Recorded ?Confirmed buprenorphine 8 mg-naloxone 2 mg 2 tab sublingual DAILY 08/17/22 05/15/24 sublingual tablet acamprosate 333 mg tablet,delayed 333 mg PO TID 03/13/24 05/15/24 release propranolol 10 mg tablet 10 mg PO TID 03/13/24 05/15/24 Previous Rx's ?Medication ?Instructions ?Recorded ipratropium 0.5 mg-albuterol 3 mg 3 ml inhalation Q6HP PRN shortness 04/15/24 (2.5 mg base)/3 mL nebulization of breath or wheezing 30 days #180 soln mL albuterol sulfate 90 mcg/actuation 2 puff inhalation Q6H PRN 05/01/24 aerosol inhaler shortness of breath or wheezing #8.5 grams fluticasone 250 mcg-salmeterol 50 1 inh inhalation BID 30 days #60 ea 05/01/24 mcg/dose blistr powdr for inhalation (Advair Diskus) pantoprazole 40 mg tablet,delayed 40 mg PO BID 30 days #60 tabs 05/01/24 release venlafaxine 37.5 mg 37.5 mg PO DAILY #30 caps 05/01/24 capsule,extended release 24 hr (Effexor XR) misoprostol 200 mcg tablet 200 mcg PO BID #60 tabs 05/08/24 clonazepam 1 mg tablet (Klonopin) 1 mg PO BID #30 tabs 05/19/24 Allergies Allergy/AdvReac Type Severity Reaction Status Date / Time aspirin (ASPIRIN) Allergy Unknown Nose Bleed Verified 05/15/24 15:04 cephalexin (From Keflex) Allergy Gastrointestinal Verified 05/15/24 15:04 Upset piperacillin (From Zosyn) Allergy Hives Verified 05/15/24 15:04 tazobactam (From Zosyn) Allergy Hives Verified 05/15/24 15:04 PFSH PFS Disclaimer: The information contained in this section may have been updated after the patient was seen, as this information can be updated by other users. Medical History Gastrointestinal bleed Duodenal ulcer Necrotizing pneumonia Pneumonia Drug abuse and dependence Back pain Rib pain Shoulder pain Neck pain Acute UTI Back pain Ankle fracture Fracture of distal end of fibula Sinusitis Cellulitis Exposure to COVID-19 virus PTSD (post-traumatic stress disorder) Acute blood loss anemia Anemia Peptic ulcer disease with hemorrhage Chronic pain Anxiety Acute bronchitis Elbow pain, left Acute urinary tract infection Leukocytosis Acute appendicitis High risk medication use Tobacco abuse Asthma exacerbation Depression Anxiety Traumatic brain injury Surgical History History of foot surgery H/O lithotripsy History of appendectomy H/O right knee surgery H/O anterior cruciate ligament surgery Previous back surgery Family History Grandmother Cancer Diabetes Stroke Grandfather Cancer Mother Diabetes Hypertension Social History (Updated 05/15/24 @ 15:36 by Tim Rey MD) Smoking Status: Current every day smoker tobacco type: cigarettes packs per day: 1 alcohol intake: current alcohol intake frequency: a few times a week counseling provided: provider counseling substance use type: former substance user and prescription drug current occupational status: disabled Travel in the last 8 weeks: None household members: significant other housing: house current occupational exposures/hazards: No caffeine: No Other Medical History Have you received the Flu Vaccine for this season: No Have you received the Pneumonia Vaccine: Yes ROS Obtained: Yes All systems reviewed & no additional complaints except as documented Physical Exam General General appearance: alert and in distress Comment: Tremulous Head Head exam: atraumatic and normocephalic Eye Eye exam: Present PERRL, EOMI and conjunctival injection ENT ENT exam: Present normal oropharynx and normal external ear exam Neck Neck exam: Present normal inspection and full ROM Chest Chest inspection: Present normal inspection and symmetric chest wall rise; Absent tenderness Respiratory Respiratory exam: Present normal lung sounds bilaterally; Absent respiratory distress Cardiovascular Cardiovascular exam: Present normal rhythm and tachycardia Abdominal Exam Abdominal exam: Present soft and tenderness (Generalized); Absent distention or guarding Extremities Exam Extremities exam: Present normal inspection; Absent edema or joint swelling Back Exam Back exam: Present normal inspection; Absent tenderness Neurological Exam Neurological exam: Present alert, oriented X3 and other (Tremulous) Psychiatric Psychiatric exam: Present normal affect and agitated Skin Skin exam: Present warm, dry and normal color Lymphatic Lymphatic Findings: no adenopathy Medical Decision Making Medical Records Medical records reviewed: Yes I reviewed the patient's medical records. Screening: Per USPSTF and CDC recommendations, given the prevalence of disease in our region, it is our hospital?s policy to screen for HIV and viral Hepatitis for all patients aged 18 and over and those with ongoing risk factors. Dejan Inquiry Pt receiving controlled substance: No Dejan was queried for this patient: No Vital Signs: 08/02/24 03:33 Temperature 97.7 F Temperature Source Oral Pulse Rate [Right] 66 Respiratory Rate 20 Blood Pressure [Right Arm] 147/125 H Blood Pressure Mean [Right Arm] 132 02 Sat by Pulse Oximetry 98 Lab Data Lab results reviewed: Yes I reviewed the patient's lab results. Lab Results 08/02/24 04:03: WBC 5.1, RBC 4.92, Hgb 14.7, Hct 43.9, MCV 89.2, MCH 29.9, MCHC 33.5, RDW 15.9, Plt Count 142, MPV 10.5 H, Neut % (Auto) 61.4, Lymph % (Auto) 28.7, Falls % (Auto) 8.9, Eos % (Auto) 0.2, Baso % (Auto) 0.4, Neut # (Auto) 3.1, Lymph # (Auto) 1.5, Falls # (Auto) 0.5, Eos # (Auto) 0.0, Baso # (Auto) 0.0, PT 11.7, INR 1.07, Sodium 139, Potassium 3.1 L, Chloride 100, Carbon Dioxide 29, Anion Gap 13.1, BUN 9, Creatinine 0.70, Estimated Creat Clear 123, Estimated GFR 120, Est GFR ( Amer) 145, Glucose 104 H, Calcium 8.7, Phosphorus 0.9 L, M agnesium 1.2 L, Total Bilirubin 0.6, AST 220 H, ALT 29, Alkaline Phosphatase 252 H, Total Protein 7.1, Albumin 3.9, Globulin 3.2, Albumin/Globulin Ratio 1.2, Lipase 204 08/02/24 04:03 08/02/24 04:03 Orders (Tests/Meds): ED MEDICATIONS Generic Name Dose Route Start Last Admin Trade Name Freq PRN Reason Stop Dose Admin Diazepam 10 mg 08/02/24 03:34 08/02/24 04:00 Diazepam 10mg/2ml Syringe IV 09/01/24 03:33 10 mg Q1HP PRN Administration CIWA >16 Diazepam 5 mg 08/02/24 03:34 08/02/24 04:00 Diazepam 10mg/2ml Syringe IV 09/01/24 03:33 5 mg Q1HP PRN Administration CIWA Score 8-15 Diazepam 5 mg 08/02/24 03:34 Diazepam 5mg Tablet PO 09/01/24 03:33 Q6HP PRN CIWA 2-7 Multivitamins 10 ml/ Thiamine 1,015 mls @ 150 mls/hr 08/02/24 03:45 08/02/24 04:00 HCl 100 mg/ Magnesium Sulfate IV 08/02/24 10:30 150 mls/hr 2 gm/ Lactated Ringer's .Q6H46M JOSE Administration Lactated Ringer's 1,000 mls @ 999 mls/hr 08/02/24 03:45 Lactated Ringer's 1000 Ml Bag IV 08/02/24 04:45 .Q1H1M JOSE Pantoprazole Sodium 80 mg/ 100 mls @ 100 mls/hr 08/02/24 04:28 Sodium Chloride IV 08/02/24 05:27 ONCE ONE Potassium Chloride/Water 100 mls @ 100 mls/hr 08/02/24 04:30 Potassium Chloride 10meq/100ml Ivpb IV 08/02/24 07:29 Q1H JOSE Magnesium Sulfate 2 gm in 50 mls @ 150 mls/hr 08/02/24 04:32 08/02/24 04:38 Magnesium Sulfate 2gm/50ml Premix IV 08/02/24 04:51 150 mls/hr ONCE ONE Administration Pantoprazole Sodium 40 mg 08/02/24 04:35 Pantoprazole 40mg Vial IV 08/02/24 04:36 ONCE ONE Sodium Chloride 10 ml 08/02/24 04:35 Sodium Chloride 0.9% 10ml Vial IV 09/01/24 04:34 NEEDED PRN dilute protonix Discontinued Medications Generic Name Dose Route Start Last Admin Trade Name Freq PRN Reason Stop Dose Admin Albuterol/Ipratropium 3 ml 08/02/24 04:02 08/02/24 04:38 Ipratropium/Albuterol 3 Ml Neb IH 08/02/24 04:03 3 ml ONCE ONE Administration Diazepam 15 mg 08/02/24 03:41 08/02/24 04:24 Diazepam 10mg/2ml Syringe IV 08/02/24 03:42 Not Given ONCE ONE Folic Acid 1 mg 08/02/24 03:34 08/02/24 04:02 Folic Acid 1mg Tablet PO 08/02/24 03:35 1 mg ONCE ONE Administration Ondansetron HCl 4 mg 08/02/24 03:37 08/02/24 04:02 Ondansetron 4mg/2ml Vial IV 08/02/24 03:38 4 mg ONCE ONE Administration ORDERS Category Date Time Status CT abdomen pelvis w con Stat Cat Scan 08/02/24 04:28 Ordered Consult [employer] [CONS] Routine Cons 08/02/24 04:30 Active CBC w/Auto Diff [Complete Blood Count Auto Diff] Stat Lab 08/02/24 04:03 Completed CMP [Comprehensive Metabolic Panel] Stat Lab 08/02/24 04:03 Completed Lipase Stat Lab 08/02/24 04:03 Completed MAG [Magnesium] Stat Lab 08/02/24 04:03 Completed PHOS [Phosphorous] Stat Lab 08/02/24 04:03 Completed Prothrombin Time INR Routine Lab 08/02/24 04:03 Completed Rapid PCR Covid and Flu A/B Stat Lab 08/02/24 04:23 Received Medical Decision Narrative: 48-year-old male with history of COPD, alcoholism, duodenal ulcers, gastritis presents for maddox positive review of systems, worsening vomiting and abdominal pain, and alcohol withdrawal, has not had a drink for the last 2 days.. History was obtained via interactive discussion with patient EMS chart review. On arrival, patient is afebrile, hemodynamically stable, moving all extremities spontaneously. Full physical exam performed and significant for wheezing bilaterally, abdominal pain, thrush noted. CIWA 29 on arrival Differential includes but is not limited to alcohol withdrawal, influenza, intra-abdominal pathology, electrolyte derangement. Patient was given rally pack, IV fluids, magnesium, thiamine, folate, pantoprazole, 15 mg of Valium IV for symptomatic management and correction of underlying abnormalities. Workup initiated including CBC CMP INR mag Phos COVID flu swab CT abdomen pelvis with IV contrast, EKG. On re-evaluation, patient reports symptomatic improvement, no longer tremulous, able to have a coherent conversation. Laboratory workup independently interpreted by me and significant for significant electrolyte derangements with hypomagnesemia, hypokalemia, hypophosphatemia. Negative lipase. No significant anemia. COVID flu swab negative Imaging independently interpreted by me and significant for thickening of the stomach and small bowel, no obvious obstruction, no evidence of pancreatic inflammation.. See radiology read for full review of final results. EKG independently interpreted by me and significant for sinus rhythm with ventricular rate of 86 3, no concerning ischemic changes, short AK interval noted.. Given patient history, exam and workup, patient's presentation most likely represents acute gastroenteritis resulting in acute alcohol withdrawal as well as dehydration. Given severity of symptoms, patient is admitted to the hospital for further evaluation and management.. Procedures Risk/Benefits of Procedure(s) Were Explained: Yes Critical Care Critical Care Time Critical Care Time: Yes Attestation: On 08/02/24, the high probability of a clinically significant, sudden or life threatening deterioration of the following system(s) required my full and direct attention, intervention and personal management. The time I documented below is in addition to time spent performing reported procedures but includes the following listed in this critical care notation. Total Time Total Critical Care Time: 40
--- NOTE | 2024-08-02 03:41 | ECG_ITS ---
APPROVED REPORT Exam: Resting ECG HR:83 bpm ECG Measurements Heart Rate 83 AXES TN 109 P 70 QRSd 106 QRS 26 QT 412 T 43 QTc 452 Conclusion SINUS RHYTHM WITH SHORT TN INTERVAL NONSPECIFIC T-WAVE ABNORMALITY BORDERLINE ECG UNCONFIRMED REPORT Electronically signed by : ONEIL PETERSEN, 08/03/2024 06:38:29
[2024-08-02] MEDS: diazePAM 10MG/2ML SYRINGE 5 MG IV ×2 (04:00→23:27)
[2024-08-02] MEDS: MVI, ADULT NO.1 WITH VIT K 10 ML, THIAMINE HCL 100 MG, MAGNESIUM SULFATE 2 GM in LACTAT... 150 ML IV (04:00)
[2024-08-02] MEDS: diazePAM 10MG/2ML SYRINGE 10 MG IV ×2 (04:00→05:38)
[2024-08-02] MEDS: FOLIC ACID 1MG TABLET 1 MG PO ×2 (04:02→09:01)
[2024-08-02] MEDS: ONDANSETRON 4MG/2ML VIAL 4 MG IV ×3 (04:02→17:28)
[2024-08-02 04:10] LABS: Basophils % 0.4 % (0.1-2.0); Eosinophils % 0.2 % (0.1-12.0); Hematocrit 43.9 % (42.0-52.0); Hemoglobin 14.7 g/dL (14.1-18.0); Lymphocytes # 1.5 K/mm3 (0.7-4.5); Lymphocytes % 28.7 % (10-50); Mean Corpuscular HGB Conc 33.5 g/dL (31.8-35.4); Mean Corpuscular Hemoglobin 29.9 pg (27.0-31.2); Mean Corpuscular Volume 89.2 fl (80-94); Mean Platelet Volume 10.5 fl (7.4-10.4); Monocytes # 0.5 K/mm3 (0.1-1.0); Monocytes % 8.9 % (1.7-9.3); Neutrophils # 3.1 K/mm3 (1.8-7.8); Neutrophils % 61.4 % (37.0-80.0); Platelet Count 142 K/mm3 (142-424); Red Blood Count 4.92 M/mm3 (4.60-6.20); Red Cell Distribution Width 15.9 % (11.5-17.5); White Blood Count 5.1 K/mm3 (4.8-10.8)
[2024-08-02 04:15] LABS: Albumin Level 3.9 g/dl (3.5-5.0); Chloride 100 mmol/L (98-107)
[2024-08-02 04:16] LABS: Potassium 3.1 mmoL/L (3.5-5.1); Sodium 139 mmol/L (136-145)
[2024-08-02 04:18] LABS: Alanine Aminotransferase 29 U/L (12-78); Anion Gap 13.1 mEq/L (5-15); Aspartate Amino Transferase 220 U/L (17-59); Blood Urea Nitrogen 9 mg/dl (9-20); Carbon Dioxide 29 mmol/L (22.0-30.0); Creatinine Clearance Estimated 123 mL/min (50-200); Estimated Glomerular Filt Rate 120 ml/min (>60); GFR (African American) 145 ML/MIN (>60)
[2024-08-02 04:19] LABS: Albumin/Globulin Ratio 1.2 (1.1-1.8); Alkaline Phosphatase 252 U/L (38-126); Bilirubin,Total 0.6 mg/dl (0.2-1.3); Calcium 8.7 mg/dl (8.4-10.2); Globulin 3.2 g/dL (1.3-3.2); Glucose 104 mg/dl (74-100); INR 1.07 (0.9-1.1); Lipase 204 U/L (23-300); Magnesium 1.2 mg/dl (1.6-2.3); Prothrombin Time 11.7 seconds (9.2-12.1); Total Protein,Serum 7.1 g/dl (6.3-8.2)
[2024-08-02 04:28] LABS: Coronavirus 19, PCR Not Detected (NotDetected); Influenza A, PCR Not Detected (NotDetected); Influenza B, PCR Not Detected (NotDetected)
--- NOTE | 2024-08-02 04:28 | CT_ITS ---
PROCEDURE INFORMATION: Exam: CT Abdomen And Pelvis With Contrast Exam date and time: 08/02/2024 4:38 AM Age: 48 years old Clinical indication: Nausea and vomiting; Abdominal pain; Additional info: Severe non-bloody n/v, abd pain, HX etoh/ulcers TECHNIQUE: Imaging protocol: Computed tomography of the abdomen and pelvis with contrast. Radiation optimization: All CT scans at this facility use at least one of these dose optimization techniques: automated exposure control; mA and/or kV adjustment per patient size (includes targeted exams where dose is matched to clinical indication); or iterative reconstruction. Contrast material: ISOVUE; Contrast volume: 75 ml; Contrast route: IV; COMPARISON: CT ABDOMEN PELVIS W CON 04/14/2024 12:06 PM FINDINGS: Liver: The liver is low in density. Gallbladder and biliary ducts: Normal. No calcified stones. No ductal dilation. Pancreas: Normal. No ductal dilation. Spleen: Normal. No splenomegaly. Adrenal glands: Normal. No mass. Kidneys and ureters: Multiple intrarenal stones are present bilaterally these are nonobstructing. Stomach and bowel: The small bowel is mildly distended with fluid. There is no solid stool seen within the colon. Findings consistent with diarrhea and likely underlying enteritis. No perforation ileus or obstruction identified. Appendix: No evidence of appendicitis. Intraperitoneal space: Unremarkable. No free air. No significant fluid collection. Vasculature: Unremarkable. No abdominal aortic aneurysm. Lymph nodes: Unremarkable. No enlarged lymph nodes. Urinary bladder: Unremarkable as visualized. Reproductive: Unremarkable as visualized. Bones/joints: Unremarkable. No acute fracture. Soft tissues: Unremarkable. IMPRESSION: 1. Small bowel is mildly distended with fluid. There is no solid stool seen within the colon. Findings consistent with diarrhea and likely underlying enteritis. No perforation ileus or obstruction identified. 2. Bilateral non-obstructing nephrolithiasis. 3. Advanced hepatic steatosis.
--- NOTE | 2024-08-02 04:31 | PC.NURSE ---
CIWA score upon arrival is 29. MD aware and medications ordered
[2024-08-02] MEDS: IPRATROPIUM/ALBUTEROL 3 ML NEB IH (04:38)
[2024-08-02] MEDS: MAGNESIUM SULFATE IN WATER 2 GM/50 ML PIGGYBACK IV (04:38)
[2024-08-02 04:40] LABS: Phosphorous 0.9 mg/dl (2.5-4.5)
[2024-08-02] MEDS: KCl 10mEq/100ml 100 ML 100 MEQ IV ×3 (04:42→08:49)
[2024-08-02] MEDS: PANTOPRAZOLE 40MG VIAL 40 MG IV (04:42)
[2024-08-02] MEDS: LACTATED RINGERS 1000ML 1,000 ML 999 ML IV (04:42)
--- NOTE | 2024-08-02 04:51 | PC.NURSE ---
Pt back from CT
[2024-08-02] MEDS: IOPAMIDOL-370 (76%);100ML BOTTLE 75 ML IV (04:54)
[2024-08-02] MEDS: SODIUM CHLORIDE 0.9% 10ML SYR (RAD ONLY) 10 ML IV (04:54)
[2024-08-02 05:09] LABS: Ethyl Alcohol < 10 mg/dl (0-10)
--- NOTE | 2024-08-02 05:22 | PC.NURSE ---
report called to piedad freeman
--- NOTE | 2024-08-02 05:42 | PC.NURSE ---
CIWA 22. Wojciech CASTILLO notified.
--- NOTE | 2024-08-02 06:00 | P.HP_ITS ---
History of Present Illness *Admission Date: 08/02/24 *Reason for visit:: Alcohol withdrawal *History of present illness: The patient is a 48-year-old male with a history of COPD, alcoholism, duodenal ulcers, esophagitis, opioid dependence on Suboxone and gastritis who presents with worsening abdominal pain, vomiting, and alcohol withdrawal symptoms after not consuming alcohol for the past two days due to nausea and vomiting and abdominal pain.. He reports typically drinking at least six Fireballs per day and has experienced progressive weight loss of approximately 30 pounds over the past month. He describes the abdominal pain as diffuse, constant, and worsening over the past month, accompanied by persistent nonbloody, nonbilious vomiting. He denies hematemesis or melena but notes generalized weakness, tremors, fatigue, nausea, and difficulty concentrating. On arrival, the patient was in active alcohol withdrawal, exhibiting tremors, diaphoresis, agitation, and a CIWA score of 29. He was actively vomiting and appeared dehydrated. His physical exam was notable for bilateral wheezing, abdominal tenderness, and oral thrush. Laboratory results were significant for electrolyte derangements, including hypokalemia (K+ 3.1), hypophosphatemia (Phos 0.9), and hypomagnesemia (Mg 1.2). Alcohol level was undetectable. Liver function tests showed elevated AST (220) with normal ALT (29), and alkaline phosphatase was mildly elevated at 252. Lipase was negative. CT abdomen and pelv is with IV contrast demonstrated thickening of the stomach and small bowel without obstruction or evidence of pancreatitis. EKG showed sinus rhythm with a short [place] interval but no acute ischemic changes. Given his history, presentation, and findings, the patient was diagnosed with acute alcohol withdrawal, acute gastroenteritis, and dehydration. He was given a rally pack (thiamine, folate, magnesium), IV fluids, pantoprazole, and symptomatic management with IV Valium (15 mg). After treatment, he reported symptomatic improvement, reduced tremors, and improved coherence. Given the severity of sy mptoms and history of GI pathology, he was admitted for further evaluation and management. [facility] Disclaimer: The information contained in this section may have been updated after the patient was seen, as this information can be updated by other users. Medical History Gastrointestinal bleed Duodenal ulcer Necrotizing pneumonia Pneumonia Drug abuse and dependence Back pain Rib pain Shoulder pain Neck pain Acute UTI Back pain Ankle fracture Fracture of distal end of fibula Sinusitis Cellulitis Exposure to COVID-19 virus PTSD (post-traumatic stress disorder) Acute blood loss anemia Anemia Peptic ulcer disease with hemorrhage Chronic pain Anxiety Acute bronchitis Elbow pain, left Acute urinary tract infection Leukocytosis Acute appendicitis High risk medication use Tobacco abuse Asthma exacerbation Depression Anxiety Traumatic brain injury Surgical History History of foot surgery H/O lithotripsy History of appendectomy H/O right knee surgery H/O anterior cruciate ligament surgery Previous back surgery Family History Grandmother Cancer Diabetes Stroke Grandfather Cancer Mother Diabetes Hypertension Social History Smoking Status: Current every day smoker tobacco type: cigarettes packs per day: 1 alcohol intake: current alcohol intake frequency: a few times a week counseling provided: provider counseling substance use type: former substance user and prescription drug current occupational status: disabled Travel in the last 8 weeks: None household members: significant other housing: house current occupational exposures/hazards: No caffeine: No Other Medical History Have you received the Flu Vaccine for this season: No Have you received the Pneumonia Vaccine: No Review of Systems Review of Systems Review of systems (narrative): 13 point review of systems negative except as listed HPI Meds Home Medications and Allergies Home Medications ?Medication ?Instructions ?Recorded ?Confirmed ?Type buprenorphine 8 mg-naloxone 2 mg 2 tab sublingual DAILY 08/17/22 08/02/24 History sublingual tablet ipratropium 0.5 mg-albuterol 3 mg 3 ml inhalation Q6HP PRN shortness 04/15/24 08/02/24 Rx (2.5 mg base)/3 mL nebulization of breath or wheezing 30 days #180 soln mL fluticasone 250 mcg-salmeterol 50 1 inh inhalation BID 30 days #60 ea 05/01/24 08/02/24 Rx mcg/dose blistr powdr for inhalation (Advair Diskus) albuterol sulfate 90 mcg/actuation 2 puff inhalation Q6HP PRN 08/02/24 08/02/24 History aerosol inhaler shortness of breath or wheezing pantoprazole 40 mg tablet,delayed 40 mg PO BID 08/02/24 08/02/24 History release New Prescriptions to Start Prescriptions: Allergies Allergy/AdvReac Type Severity Reaction Status Date / Time aspirin (ASPIRIN) Allergy Unknown Nose Bleed Verified 05/15/24 15:04 cephalexin (From Keflex) Allergy Gastrointestinal Verified 05/15/24 15:04 Upset piperacillin (From Zosyn) Allergy Hives Verified 05/15/24 15:04 tazobactam (From Zosyn) Allergy Hives Verified 05/15/24 15:04 Exam Data for Last 24 hours Vital signs and Labs for Last 24 Hours: Temp Pulse Resp BP Pulse Ox O2 Del Method O2 Flow Rate 97.8 F 71 21 85/49 L 97 Nasal Cannula 2 08/02/24 05:27 08/02/24 05:27 08/02/24 05:27 08/02/24 05:27 08/02/24 05:09 08/02/24 05:27 08/02/24 05:27 Laboratory Results - last 24 hr 08/02/24 03:39: SARS-CoV-2 (PCR) Not detected, Influenza A Untype (PCR) Not detected, Influenza Type B (PCR) Not detected 08/02/24 04:03: WBC 5.1, RBC 4.92, Hgb 14.7, Hct 43.9, MCV 89.2, MCH 29.9, MCHC 33.5, RDW 15.9, Plt Count 142, MPV 10.5 H, Neut % (Auto) 61.4, Lymph % (Auto) 28.7, [place] % (Auto) 8.9, Eos % (Auto) 0.2, Baso % (Auto) 0.4, Neut # (Auto) 3.1, Lymph # (Auto) 1.5, [place] # (Auto) 0.5, Eos # (Auto) 0.0, Baso # (Auto) 0.0, PT 11.7, INR 1.07, Sodium 139, Potassium 3.1 L, Chloride 100, Carbon Dioxide 29, Anion Gap 13.1, BUN 9, Creatinine 0.70, Estimated Creat Clear 123, Estimated GFR 120, Est GFR ( Amer) 145, Glucose 104 H, Calcium 8.7, Phosphorus 0.9 L, Magnesium 1.2 L, Total Bilirubin 0.6, AST 220 H, ALT 29, Alkaline Phosphatase 252 H, Total Protein 7.1, Albumin 3.9, Globulin 3.2, Albumin/Globulin Ratio 1.2, Lipase 204, Plasma/Serum Alcohol < 10 08/02/24 06:00: PT 11.5, INR 1.06, APTT 27.8, Phosphorus 2.2 L D, Magnesium 2.7 H D 08/02/24 : Amylase 115 H, Lipase 201 I & O for Last 24 hours: Intake & Output 07/30/24 07/31/24 08/01/24 08/02/24 23:59 23:59 23:59 23:59 Weight 62.233 kg Constitutional Constitutional: mild distress, cachectic, chronically ill appearing and disheveled Comments: Tremulous *Routine HEENT Exam Head: Present normocephalic Eye: Present EOMI and PERRL ENT: Present mucous membranes moist *Routine Neck Exam Neck: Present supple; Absent lymphadenopathy *Routine Respiratory Exam Respiratory: Present CTA bilaterally *Routine Cardiovascular Exam Cardiovascular: Present RRR *Routine Abdominal Exam Abdominal: Present soft and normoactive bowel sounds; Absent tenderness *Routine Rectal Exam Rectal:: deferred *Routine Genitalia Exam Genitalia:: deferred *Routine Extremities Exam Extremities: Absent cyanosis, clubbing or edema *Routine Skin Exam Skin: Present warm; Absent rash *Routine Neurological Exam Neurological: Present alert and oriented X3 Routine Psychiatric Exam Psychiatric: Present anxious and agitated Assessment and Plan *Assessment and plan (1) Alcohol withdrawal: Status: Acute Qualifiers: Complication of substance-induced condition: with unspecified complication Qualified Code(s): F10.939 - Alcohol use, unspecified with withdrawal, unspecified Category: Medical Code(s): F10.939 - Alcohol use, unspecified with withdrawal, unspecified (2) Abdominal pain: Status: Acute Category: Medical Code(s): R10.9 - Unspecified abdominal pain (3) Early satiety: Status: Acute Category: Medical Code(s): R68.81 - Early satiety (4) Substance use disorder: Status: Acute Category: Medical Code(s): F19.90 - Other psychoactive substance use, unspecified, uncomplicated (5) Dyspepsia: Status: Acute Category: Medical Code(s): R10.13 - Epigastric pain (6) Acute hypokalemia: Status: Acute Category: Medical Code(s): E87.6 - Hypokalemia (7) Hypomagnesemia: Status: Acute Category: Medical Code(s): E83.42 - Hypomagnesemia (8) Hypophosphatemia: Status: Acute Category: Medical Code(s): E83.39 - Other disorders of phosphorus metabolism (9) Vomiting: Status: Acute Category: Medical Code(s): R11.10 - Vomiting, unspecified Plan Medical Decision Making: The patient is a 48-year-old male with a history of alcoholism, COPD, duodenal ulcers, and esophagitis presenting with severe alcohol withdrawal (CIWA 29), dehydration, and worsening abdominal pain with persistent vomiting and significant weight loss. Given his history of GI pathology, the abdominal pain is concerning for gastritis, ulcer recurrence, or underlying intra-abdominal pathology, though CT imaging showed stomach and small bowel thickening without obstruction or pancreatitis. Labs are notable for hypokalemia, hypophosphatemia, and hypomagnesemia, requiring electrolyte replacement. AST is elevated, likely secondary to alcohol-related liver injury. He received benzodiazepines for withdrawal, IV fluids, a rally pack, and pantoprazole for GI protection, with symptomatic improvement on re-evaluation. Given the severity of withdrawal and GI history, he is admitted for continued CIWA monitoring, electrolyte repletion, and further evaluation of abdominal symptoms. 1. Acute Alcohol Withdrawal (CIWA 29) * Continue symptom-triggered management with diazepam IV per CIWA protocol. * Phenobarbital load due to resistance * Monitor for withdrawal seizures, delirium tremens, and worsening autonomic instability. * Monitor vitals, EKG, and CIWA scores q2h until stable. 2. Dehydration & Electrolyte Imbalances * Continue rally pack at 125 mL/hr, reassess after 2?4 hours. * Replete electrolytes: * Potassium: 40 mEq PO or IV if severe (<3.0) * Magnesium: 2g IV over 2 hours, recheck levels * Phosphorus: 15?30 mmol IV replacement as needed * Monitor BMP q6h until stable. 3. Chronic Alcoholism & Malnutrition * Continue Rally Pack (Thiamine 100 mg IV daily, Folate 1 mg PO daily, Magnesium). * Monitor for Wernicke?s encephalopathy and treat with high-dose IV thiamine if suspected. 4. Abdominal Pain & Vomiting (Concern for Gastritis, Ulcer, or Other GI Pathology) * IV pantoprazole 40 mg BID for ulcer prophylaxis. * Oral sucralfate suspension if mucosal irritation suspected. * NPO initially, advance diet as tolerated. * Repeat abdominal exam q4h to monitor for worsening symptoms. * GI consult if persistent pain or concern for recurrent ulcers. 5. Respiratory Symptoms & COPD Exacerbation * Albuterol nebulizer q4?6h PRN for wheezing. * Assess for superimposed pneumonia (consider chest X-ray if respiratory status worsens). * Monitor for hypoxia and consider steroids if wheezing persists. 6. Admission & Monitoring * Admit to telemetry for CIWA monitoring, IV fluids, and electrolyte correction. * Frequent re-evaluations for withdrawal progression or worsening GI symptoms. * Continue supportive care and reassess need for escalation to ICU if instability occurs. * Avoid blood thinners at this time, DVT prophylaxis with SCDs * GI prophylaxis IV Protonix * N.p.o. * Full code Rounded on patient after nurse practitioner. Personally examined and interviewed patient. Agree with exam findings and care plan as documented. Patient having double-digit CIWA scores. Will initiate phenobarbital 130 mg twice daily. Close monitoring for risk of toxicity. On my exam patient was resting comfortably. Phosphorus also low, will replace phosphorus with 15 mmol IV once. Phosphorus 2.2 this morning. Risk for refeeding giving his alcoholism. Per my review of CT of abdomen, has fluid in small bowel, nonobstructing kidney stones, but no other significant abdominal pathology. Repeat CBC, CMP, magnesium, and phosphorus ordered for the morning.
--- NOTE | 2024-08-02 06:11 | PC.NURSE ---
Pt admitted to room 263 in step down care. Pt medicated per AUG upon arrival for CIWA 22. Pt Pt is now resting in bed. Seizure precautions in place. Call light in reach. VSS. Pt unable to tolerate K+ infusion, c/o pain at IV site. IV is patent and flushes well. K+ rate slowed down multiple times and is now infusing @20 ml/hr. LR is infusing concurrently @120ml/hr. Wojciech CASTILLO aware.
--- NOTE | 2024-08-02 06:28 | PC.NURSE ---
Pts protonix from home is at the bedside.
[2024-08-02 06:35] LABS: Magnesium 2.7 mg/dl (1.6-2.3); Phosphorous 2.2 mg/dl (2.5-4.5)
[2024-08-02 06:36] LABS: Amylase 115 U/L (30-110); Lipase 201 U/L (23-300)
[2024-08-02 06:37] LABS: Activated Partial Thrombo Time 27.8 seconds (22.5-28.5); INR 1.06 (0.9-1.1); Prothrombin Time 11.5 seconds (9.2-12.1)
[2024-08-02] MEDS: PHENobarbital SOD 65MG/ML INJ 130 MG IV ×3 (07:39→20:06)
--- NOTE | 2024-08-02 07:56 | HMH.PHAINT1 ---
Pharmacy Intervention Comments: MEDICATION RECONCILIATION COMPLETED ON PATIENT USING EXTERNAL FILL HISTORY FROM PHARMACY, KINJAL REPORT, AND LIST FROM PCP OFFICE. -AMANDA TOBIASD
[2024-08-02] MEDS: BUPRENORPHINE/NALOXONE 8MG/2MG ODT 2 EACH SL (09:01)
[2024-08-02] MEDS: FLUTICASONE/SALMETEROL 250/50MCG DISKUS 1 PUFF IH ×2 (09:59→19:07)
[2024-08-02] MEDS: POTASSIUM PHOS IN 0.9 % NACL 15 MMOL/250 ML PIGGYBACK 62.5 MMOL IV (10:04)
[2024-08-02 10:39] LABS: Barbiturates Screen,Urine Positive ng/ml (<200); Benzodiazepines Screen,Urine Positive ng/ml (<200)
[2024-08-02 10:40] LABS: Amphetamine/Metha Screen,Urine Negative ng/ml (<1000)
[2024-08-02 10:41] LABS: Cannabinoid Screen,Urine Positive ng/ml (<50); Cocaine Screen,Urine Negative ng/ml (<300)
[2024-08-02 10:42] LABS: Methadone Screen,Urine Negative ng/ml (<300)
[2024-08-02 10:43] LABS: Opiate Screen,Urine Negative ng/ml (<300); Phencyclidine Screen,Urine Negative ng/ml (<25)
[2024-08-02] MEDS: diazePAM 5MG TABLET 5 MG PO (14:47)
[2024-08-02] MEDS: ACETAMINOPHEN 325MG TAB 650 MG PO (15:39)
[2024-08-02] MEDS: PANTOPRAZOLE 40MG TABLET 40 MG PO (20:06)
[2024-08-02] MEDS: BELLADONNA ALKALOIDS 60 ML ML PO (22:37)
[2024-08-03] VITALS (16 sets, daily range): BP systolic 94–158; BP diastolic 58–92; PULSE 60–83; RESP 17–20; TEMP 36.6–37.2; O2SAT 93–99; BMI 21.4
[2024-08-03] MEDS: diazePAM 5MG TABLET 5 MG PO ×3 (01:41→20:05)
[2024-08-03] MEDS: ONDANSETRON 4MG/2ML VIAL 4 MG IV ×3 (01:41→17:24)
[2024-08-03] MEDS: ACETAMINOPHEN 325MG TAB 650 MG PO (06:01)
[2024-08-03] MEDS: FLUTICASONE/SALMETEROL 250/50MCG DISKUS 1 PUFF IH ×2 (06:41→18:42)
[2024-08-03 07:41] LABS: Basophils % 0.2 % (0.1-2.0); Eosinophils % 0.5 % (0.1-12.0); Hematocrit 35.6 % (42.0-52.0); Hemoglobin 11.3 g/dL (14.1-18.0); Lymphocytes # 1.8 K/mm3 (0.7-4.5); Lymphocytes % 30.6 % (10-50); Mean Corpuscular HGB Conc 31.7 g/dL (31.8-35.4); Mean Corpuscular Hemoglobin 29.4 pg (27.0-31.2); Mean Corpuscular Volume 92.7 fl (80-94); Mean Platelet Volume 13.4 fl (7.4-10.4); Monocytes # 0.4 K/mm3 (0.1-1.0); Monocytes % 6.5 % (1.7-9.3); Neutrophils # 3.5 K/mm3 (1.8-7.8); Platelet Count 66 K/mm3 (142-424); Red Blood Count 3.84 M/mm3 (4.60-6.20); Red Cell Distribution Width 16.6 % (11.5-17.5); White Blood Count 5.7 K/mm3 (4.8-10.8)
[2024-08-03 07:45] LABS: Albumin Level 2.9 g/dl (3.5-5.0); Chloride 100 mmol/L (98-107); Sodium 136 mmol/L (136-145)
[2024-08-03 07:46] LABS: Potassium 3.4 mmoL/L (3.5-5.1)
[2024-08-03 07:48] LABS: Alanine Aminotransferase 16 U/L (12-78); Albumin/Globulin Ratio 1.1 (1.1-1.8); Anion Gap 7.4 mEq/L (5-15); Aspartate Amino Transferase 141 U/L (17-59); Blood Urea Nitrogen 11 mg/dl (9-20); Carbon Dioxide 32 mmol/L (22.0-30.0); Creatinine Clearance Estimated 116 mL/min (50-200); Estimated Glomerular Filt Rate 120 ml/min (>60); GFR (African American) 145 ML/MIN (>60); Globulin 2.6 g/dL (1.3-3.2); Total Protein,Serum 5.5 g/dl (6.3-8.2)
[2024-08-03 07:49] LABS: Alkaline Phosphatase 149 U/L (38-126); Bilirubin,Total 0.2 mg/dl (0.2-1.3); Calcium 7.6 mg/dl (8.4-10.2); Glucose 92 mg/dl (74-100); Magnesium 1.6 mg/dl (1.6-2.3); Phosphorous 3.7 mg/dl (2.5-4.5)
[2024-08-03] MEDS: BUPRENORPHINE/NALOXONE 8MG/2MG ODT 2 EACH SL (08:57)
[2024-08-03] MEDS: PHENobarbital SOD 65MG/ML INJ 130 MG IV ×2 (09:02→20:13)
[2024-08-03] MEDS: FOLIC ACID 1MG TABLET 1 MG PO (09:03)
[2024-08-03] MEDS: PANTOPRAZOLE 40MG TABLET 40 MG PO ×2 (09:03→20:09)
[2024-08-03] MEDS: MAGNESIUM SULFATE IN WATER 2 GM/50 ML PIGGYBACK IV ×2 (09:46→10:55)
[2024-08-03] MEDS: POTASSIUM CHLORIDE 20MEQ TAB 40 MEQ PO ×2 (09:46→14:42)
[2024-08-03] MEDS: NICOTINE 21MG/24HR PATCH 21 MG TD (10:59)
[2024-08-03] MEDS: IPRATROPIUM/ALBUTEROL 3 ML NEB IH ×2 (11:34→18:42)
--- NOTE | 2024-08-03 15:58 | EXP.ACUTE.PN ---
Subjective *Date: 08/03/24 *Time: 15:58 Interval history: Patient stable on room air today. Has a rhonchorous cough. Denies any fever, nausea, vomiting. States he just feels like he wants to jump out of his skin. Hemodynamically stable. Alert and oriented x 3. Medical Exam Vital signs and Labs for Last 24 Hours: Vital Signs Temp Pulse Pulse Resp BP Pulse Ox O2 Del Method 08/03/24 14:00 83 17 158/83 H 95 Room Air 08/03/24 14:00 97 Room Air 08/03/24 13:00 Room Air 08/03/24 12:00 98 F 79 17 106/74 L 96 Room Air 08/03/24 12:00 70 08/03/24 11:35 65 08/03/24 11:35 70 08/03/24 11:35 97 Room Air 08/03/24 11:00 Room Air 08/03/24 10:00 76 20 110/78 94 L Room Air 08/03/24 09:00 Room Air 08/03/24 08:00 98.2 F 71 19 102/58 L 94 L Room Air 08/03/24 08:00 19 98 Room Air 08/03/24 08:00 75 08/03/24 06:34 Room Air 08/03/24 06:00 77 20 94/74 L 93 L Room Air 08/03/24 05:00 Room Air 08/03/24 04:00 80 08/03/24 04:00 98.9 F 08/03/24 03:00 Room Air 08/03/24 02:00 79 18 122/85 94 L Room Air 08/03/24 02:00 79 93 L Room Air 08/03/24 00:41 Room Air 08/03/24 00:00 80 08/03/24 00:00 97.9 F 08/03/24 00:00 78 18 122/78 93 L Room Air 08/02/24 23:00 Room Air 08/02/24 22:00 76 18 104/64 L 97 Room Air 08/02/24 20:53 Room Air 08/02/24 20:00 90 08/02/24 20:00 66 22 108/63 L 95 Room Air 08/02/24 19:39 67 95 Room Air 08/02/24 19:18 97.9 F 08/02/24 19:00 Room Air 08/02/24 18:00 98.1 F 59 L 16 105/57 L 94 L Room Air 08/02/24 17:00 Room Air 08/02/24 16:00 61 16 115/74 94 L Room Air Intake and Output 08/02/24 08/03/24 08/03/24 23:59 07:59 15:59 Intake Total 490 / 1150 120 / 480 360 / 480 Output Total 350 / 1050 500 / 1150 650 / 1150 Balance 140 / 100 -380 / -670 -290 / -670 Intake: Intake, Oral Amount 240 / 600 120 / 480 360 / 480 Intake, Total IV Amount 250 / 550 Potassium Phos in 0.9 % NaCl 15 250 / 250 mmol In 250 ml @ 62.5 mls/hr IV ONCE ONE Rx#:[id number] Output: Output, Urine Amount 350 / 1050 500 / 1150 650 / 1150 Other: Number of Voids 1 Weight 64.274 kg Patient Weight 08/03/24 23:59 Weight 64.274 kg Laboratory Results - last 24 hr 08/03/24 06:37: WBC 5.7, RBC 3.84 L, Hgb 11.3 L, Hct 35.6 L, MCV 92.7, MCH 29.4, MCHC 31.7 L, RDW 16.6, Plt Count 66 L D, MPV 13.4 H, Neut % (Auto) 62.0, Lymph % (Auto) 30.6, [place] % (Auto) 6.5, Eos % (Auto) 0.5, Baso % (Auto) 0.2, Neut # (Auto) 3.5, Lymph # (Auto) 1.8, [place] # (Auto) 0.4, Eos # (Auto) 0.0, Baso # (Auto) 0.0, Sodium 136, Potassium 3.4 L, Chloride 100, Carbon Dioxide 32 H, Anion Gap 7.4, BUN 11, Creatinine 0.70, Estimated Creat Clear 116, Estimated GFR 120, Est GFR ( Amer) 145, Glucose 92, Calcium 7.6 L, Phosphorus 3.7 D, Magnesium 1.6 D, Total Bilirubin 0.2, AST 141 H D, ALT 16 D, Alkaline Phosphatase 149 H, Total Protein 5.5 L, Albumin 2.9 L D, Globulin 2.6, Albumin/Globulin Ratio 1.1 I & O for Labs for Last 24 Hours: Intake & Output 07/31/24 08/01/24 08/02/24 08/03/24 23:59 23:59 23:59 23:59 Intake Total 1030 / 1150 480 / 480 Output Total 1050 / 1050 1150 / 1150 Balance -20 / 100 -670 / -670 Weight 62.233 kg 64.274 kg Constitutional: Present mild distress, thin, chronically ill appearing, cooperative and agitated Head: Present atraumatic and normocephalic ENT: Present normal exam Comment:: Poor dentition Respiratory: Present prolonged expiratory phase, rhonchi and normal respiratory effort; Absent wheezes or crackles Cardiac: Present Reg Rate and Rhythm GI: Present soft, tenderness (Diffuse but worse in epigastric region) and normal bowel sounds; Absent distention Extremities: Present normal inspection and full ROM; Absent edema Comment:: Thin Skin: Present intact; Absent erythema or rash Neuro: Present Grossly Intact, alert, awake, oriented x 3 and moves all extremities Comment:: tremor Assessment and Plan *Assessment and plan (1) Alcohol withdrawal: Status: Acute Qualifiers: Complication of substance-induced condition: with unspecified complication Qualified Code(s): F10.939 - Alcohol use, unspecified with withdrawal, unspecified Category: Medical Code(s): F10.939 - Alcohol use, unspecified with withdrawal, unspecified (2) Abdominal pain: Status: Acute Category: Medical Code(s): R10.9 - Unspecified abdominal pain (3) Early satiety: Status: Acute Category: Medical Code(s): R68.81 - Early satiety (4) Substance use disorder: Status: Acute Category: Medical Code(s): F19.90 - Other psychoactive substance use, unspecified, uncomplicated (5) Dyspepsia: Status: Acute Category: Medical Code(s): R10.13 - Epigastric pain (6) Acute hypokalemia: Status: Acute Category: Medical Code(s): E87.6 - Hypokalemia (7) Hypomagnesemia: Status: Acute Category: Medical Code(s): E83.42 - Hypomagnesemia (8) Hypophosphatemia: Status: Acute Category: Medical Code(s): E83.39 - Other disorders of phosphorus metabolism (9) Vomiting: Status: Acute Category: Medical Code(s): R11.10 - Vomiting, unspecified Plan The patient is a 48-year-old male with a history of alcoholism, COPD, duodenal ulcers, and esophagitis presenting with severe alcohol withdrawal (CIWA 29), dehydration, and worsening abdominal pain with persistent vomiting and significant weight loss. Given his history of GI pathology, the abdominal pain is concerning for gastritis, ulcer recurrence, or underlying intra-abdominal pathology, though CT imaging showed stomach and small bowel thickening without obstruction or pancreatitis. Labs are notable for hypokalemia, hypophosphatemia, and hypomagnesemia, requiring electrolyte replacement. AST is elevated, likely secondary to alcohol-related liver injury. He received benzodiazepines for withdrawal, IV fluids, a rally pack, and pantoprazole for GI protection, with symptomatic improvement on re-evaluation. Given the severity of withdrawal and GI history, he is admitted for continued CIWA monitoring, electrolyte repletion, and further evaluation of abdominal symptoms. Continue stepdown therapy. Continuing to have elevated CIWA scores though showing downtrend. Problems addressed as follows: Acute Alcohol Withdrawal Chronic alcoholism -Continue CIWA protocol. Continue Valium per protocol. -Loaded with phenobarbital. Scores have decreased from 20s on presentation to single digits. Continue 130 mg twice daily today. Decrease to 65 mg twice daily tomorrow. -interactive media marketing specialist consulted to assist with potential rehab referral and outpatient management once stable to discharge -Continue vitamins per protocol with thiamine, folate, multivitamin daily -Seizure precaution -Mirtazapine 15 mg nightly for anxiety component associated with his alcohol withdrawal Malnutrition Electrolyte disturbance -Magnesium 1.6, potassium 3.4, phosphorus 3.7. Continue regular diet with supplementation. -Repeat CBC, CMP, magnesium ordered for the morning -Patient reports weight loss over the past several months. Patient appears to be the same weight as he was in April per review of chart Gastritis/Abdominal Pain & Vomiting - IV pantoprazole 40 mg BID for ulcer prophylaxis. - Oral sucralfate suspension if mucosal irritation suspected COPD Tobacco use disorder -DuoNebs scheduled every 6 hours. No pneumonia on CT. Has significant bronchiectasis. -No indication at this time for antibiotics. White count normal at 5.7. -Stable on room air. Goal sats greater 90% Full code Regular diet
[2024-08-03] MEDS: PRENATAL MULTIVITAMIN W/IRON 1 EACH PO (16:53)
[2024-08-03] MEDS: MIRTAZAPINE 15 MG TABLET PO (20:09)
[2024-08-04] VITALS (16 sets, daily range): BP systolic 107–146; BP diastolic 70–99; PULSE 67–86; RESP 17–24; TEMP 36.6–36.9; O2SAT 94–99; BMI 21.7
[2024-08-04] MEDS: IPRATROPIUM/ALBUTEROL 3 ML NEB IH ×5 (00:11→23:48)
[2024-08-04] MEDS: diazePAM 5MG TABLET 5 MG PO ×2 (02:04→11:36)
--- NOTE | 2024-08-04 04:33 | PC.NURSE ---
PT IS RESTING IN BED. ALERT AND ORIENTED X4. PT HAS BEEN EATING AND DRINKING WELL. RESTLESS OFF AND ON T/O THE SHIFT. CIWA SCORE 5. MEDICATED PER MAR WITH PO VALIUM. LUNG SOUNDS HAVE SCATTERED WHEEZES/RHONCHI. ABDOMEN SOFT/NON TENDER WITH ACTIVE BOWEL SOUNDS. VSS. WILL CONTINUE TO MONITOR.
[2024-08-04 05:38] LABS: Eosinophils # 0.1 K/mm3 (0.0-0.4); Eosinophils % 0.9 % (0.1-12.0); Hematocrit 37.2 % (42.0-52.0); Lymphocytes # 1.7 K/mm3 (0.7-4.5); Lymphocytes % 29.9 % (10-50); Mean Corpuscular HGB Conc 32.3 g/dL (31.8-35.4); Mean Corpuscular Hemoglobin 30.2 pg (27.0-31.2); Mean Corpuscular Volume 93.7 fl (80-94); Mean Platelet Volume 9.6 fl (7.4-10.4); Monocytes # 0.4 K/mm3 (0.1-1.0); Monocytes % 7.2 % (1.7-9.3); Neutrophils # 3.4 K/mm3 (1.8-7.8); Neutrophils % 61.6 % (37.0-80.0); Platelet Count 103 K/mm3 (142-424); Red Blood Count 3.97 M/mm3 (4.60-6.20); Red Cell Distribution Width 16.5 % (11.5-17.5); White Blood Count 5.5 K/mm3 (4.8-10.8)
[2024-08-04 05:47] LABS: Chloride 102 mmol/L (98-107); Potassium 3.2 mmoL/L (3.5-5.1); Sodium 139 mmol/L (136-145)
[2024-08-04 05:49] LABS: Blood Urea Nitrogen 6 mg/dl (9-20); Creatinine Clearance Estimated 137 mL/min (50-200); Estimated Glomerular Filt Rate 143 ml/min (>60); GFR (African American) 173 ML/MIN (>60)
[2024-08-04 05:50] LABS: Alanine Aminotransferase 17 U/L (12-78); Albumin/Globulin Ratio 1.1 (1.1-1.8); Alkaline Phosphatase 146 U/L (38-126); Anion Gap 7.2 mEq/L (5-15); Aspartate Amino Transferase 118 U/L (17-59); Bilirubin,Total 0.3 mg/dl (0.2-1.3); Calcium 8.1 mg/dl (8.4-10.2); Carbon Dioxide 33 mmol/L (22.0-30.0); Globulin 2.7 g/dL (1.3-3.2); Glucose 100 mg/dl (74-100); Total Protein,Serum 5.7 g/dl (6.3-8.2)
[2024-08-04 06:00] LABS: Magnesium 1.8 mg/dl (1.6-2.3); Phosphorous 2.9 mg/dl (2.5-4.5)
[2024-08-04] MEDS: MAGNESIUM SULFATE IN WATER 2 GM/50 ML PIGGYBACK IV (06:18)
[2024-08-04] MEDS: POTASSIUM CHLORIDE 20MEQ TAB 40 MEQ PO ×2 (06:18→11:36)
[2024-08-04] MEDS: FLUTICASONE/SALMETEROL 250/50MCG DISKUS 1 PUFF IH ×2 (06:51→18:00)
--- NOTE | 2024-08-04 08:33 | HMH.PTWOUND ---
Rehab Inpt Wound Evaluation Rehab IP Wound Evaluation Start: 08/02/24 06:28 Freq: ONCE Status: Active Protocol: Document 08/04/24 08:30 PHOMarniYENNIFER (Rec: 08/04/24 08:33 PHORNE [id number]) Rehab PT Wound Assessment Subjective Subjective 48 yom adm to [facility] with N/V and alcohol withdrawal. PT IP wound consult order per protocol with pt having a low Armani scale score upon admission. Currently pt has no wounds that would require attention at this time. If that were to change, please re -consult PT for wound care. Thank you for involving the wound care team in the care of this pt. PHYSICIAN CERTIFICATION: I certify the specified therapy services for Brandon Dave are required, authorized, and reviewed every 30 days.
[2024-08-04] MEDS: PANTOPRAZOLE 40MG TABLET 40 MG PO ×2 (08:58→20:35)
[2024-08-04] MEDS: FOLIC ACID 1MG TABLET 1 MG PO (08:58)
[2024-08-04] MEDS: PHENobarbital SOD 65MG/ML INJ 65 MG IV ×2 (08:58→20:35)
[2024-08-04] MEDS: BUPRENORPHINE/NALOXONE 8MG/2MG ODT 2 EACH SL (08:58)
[2024-08-04] MEDS: THIAMINE 100MG TABLET 100 MG PO (08:59)
--- NOTE | 2024-08-04 09:11 | P.PN_ITS ---
Subjective *Date: 08/04/24 *Time: 21:29 Interval history: Patient stable on room air today. Has a rhonchorous cough. Denies any fever, nausea, vomiting. States he just feels like he wants to jump out of his skin. Hemodynamically stable. Alert and oriented x 3. Medical Exam Vital signs and Labs for Last 24 Hours: Vital Signs Temp Pulse Pulse Resp BP BP Pulse Ox 08/04/24 08:00 98.5 F 83 24 131/90 96 08/04/24 06:51 71 08/04/24 06:51 73 08/04/24 06:51 98 08/04/24 06:42 08/04/24 06:00 70 18 114/77 94 L 08/04/24 04:32 08/04/24 04:00 97.9 F 80 18 122/81 95 08/04/24 04:00 74 08/04/24 02:51 08/04/24 02:00 08/04/24 02:00 76 18 146/85 H 98 08/04/24 01:00 08/04/24 00:12 73 08/04/24 00:11 67 08/04/24 00:00 98.4 F 76 18 126/77 96 08/04/24 00:00 80 08/03/24 22:32 98 08/03/24 22:31 08/03/24 22:00 76 20 142/91 H 99 08/03/24 20:53 08/03/24 20:00 76 08/03/24 20:00 98.3 F 77 20 131/92 H 96 08/03/24 20:00 08/03/24 19:00 08/03/24 18:43 72 08/03/24 18:42 66 08/03/24 18:00 64 17 120/88 98 08/03/24 17:00 08/03/24 16:00 08/03/24 16:00 98.4 F 60 17 143/87 H 98 08/03/24 16:00 62 08/03/24 15:00 08/03/24 14:00 83 17 158/83 H 95 08/03/24 14:00 97 08/03/24 13:00 08/03/24 12:00 98 F 79 17 106/74 L 96 08/03/24 12:00 70 08/03/24 11:35 65 08/03/24 11:35 70 08/03/24 11:35 97 08/03/24 11:00 08/03/24 10:00 76 20 110/78 94 L O2 Del Method 08/04/24 08:00 Room Air 08/04/24 06:51 08/04/24 06:51 08/04/24 06:51 Room Air 08/04/24 06:42 Room Air 08/04/24 06:00 Room Air 08/04/24 04:32 Room Air 08/04/24 04:00 Room Air 08/04/24 04:00 08/04/24 02:51 Room Air 08/04/24 02:00 Room Air 08/04/24 02:00 Room Air 08/04/24 01:00 Room Air 08/04/24 00:12 08/04/24 00:11 08/04/24 00:00 Room Air 08/04/24 00:00 08/03/24 22:32 Room Air 08/03/24 22:31 Room Air 08/03/24 22:00 Room Air 08/03/24 20:53 Room Air 08/03/24 20:00 08/03/24 20:00 Room Air 08/03/24 20:00 Room Air 08/03/24 19:00 Room Air 08/03/24 18:43 08/03/24 18:42 08/03/24 18:00 Room Air 08/03/24 17:00 Room Air 08/03/24 16:00 Room Air 08/03/24 16:00 Room Air 08/03/24 16:00 08/03/24 15:00 Room Air 08/03/24 14:00 Room Air 08/03/24 14:00 Room Air 08/03/24 13:00 Room Air 08/03/24 12:00 Room Air 08/03/24 12:00 08/03/24 11:35 08/03/24 11:35 08/03/24 11:35 Room Air 08/03/24 11:00 Room Air 08/03/24 10:00 Room Air Intake and Output 08/03/24 08/04/24 08/04/24 23:59 07:59 15:59 Intake Total 700 / 1180 480 / 480 Output Total 1425 / 2575 1200 / 1200 Balance -725 / -1395 -1200 / -720 480 / -720 Intake: Intake, Oral Amount 600 / 1080 480 / 480 Intake, Total IV Amount 100 / 100 Magnesium Sulfate in Water 2 gm 100 / 100 In 50 ml @ 50 mls/hr IV Q1H [facility] Rx#:[id number] Output: Output, Urine Amount 1425 / 2575 1200 / 1200 Other: Number of Voids 1 Weight 65.119 kg Patient Weight 08/04/24 23:59 Weight 65.119 kg Laboratory Results - last 24 hr 08/04/24 05:20: WBC 5.5, RBC 3.97 L, Hgb 12.0 L, Hct 37.2 L, MCV 93.7, MCH 30.2, MCHC 32.3, RDW 16.5, Plt Count 103 L D, MPV 9.6, Neut % (Auto) 61.6, Lymph % (Auto) 29.9, [place] % (Auto) 7.2, Eos % (Auto) 0.9, Baso % (Auto) 0.0 L, Neut # (Auto) 3.4, Lymph # (Auto) 1.7, [place] # (Auto) 0.4, Eos # (Auto) 0.1, Baso # (Auto) 0.0, Sodium 139, Potassium 3.2 L, Chloride 102, Carbon Dioxide 33 H, Anion Gap 7.2, BUN 6 L D, Creatinine 0.60 L, Estimated Creat Clear 137, Estimated GFR 143, Est GFR ( Amer) 173, Glucose 100, Calcium 8.1 L, Phosphorus 2.9, Magnesium 1.8 D, Total Bilirubin 0.3, AST 118 H, ALT 17, Alkaline Phosphatase 146 H, Total Protein 5.7 L, Albumin 3.0 L, Globulin 2.7, Albumin/Globulin Ratio 1.1 I & O for Labs for Last 24 Hours: Intake & Output 08/01/24 08/02/24 08/03/24 08/04/24 23:59 23:59 23:59 23:59 Intake Total 1030 / 1150 1180 / 1180 480 / 480 Output Total 1050 / 1050 2575 / 2575 1200 / 1200 Balance -20 / 100 -1395 / -1395 -720 / -720 Weight 62.233 kg 64.274 kg 65.119 kg Constitutional: Present mild distress, thin, chronically ill appearing, cooperative and agitated Head: Present atraumatic and normocephalic ENT: Present normal exam Comment:: Poor dentition Respiratory: Present prolonged expiratory phase, rhonchi and normal respiratory effort; Absent wheezes or crackles Cardiac: Present Reg Rate and Rhythm GI: Present soft, tenderness (Diffuse but worse in epigastric region) and normal bowel sounds; Absent distention Extremities: Present normal inspection and full ROM; Absent edema Comment:: Thin Skin: Present intact; Absent erythema or rash Neuro: Present Grossly Intact, alert, awake, oriented x 3 and moves all extremities Comment:: tremor Assessment and Plan *Assessment and plan (1) Alcohol withdrawal: Status: Acute Qualifiers: Complication of substance-induced condition: with unspecified complication Qualified Code(s): F10.939 - Alcohol use, unspecified with withdrawal, unspecified Category: Medical Code(s): F10.939 - Alcohol use, unspecified with withdrawal, unspecified (2) Abdominal pain: Status: Acute Category: Medical Code(s): R10.9 - Unspecified abdominal pain (3) Early satiety: Status: Acute Category: Medical Code(s): R68.81 - Early satiety (4) Substance use disorder: Status: Acute Category: Medical Code(s): F19.90 - Other psychoactive substance use, unspecified, uncomplicated (5) Dyspepsia: Status: Acute Category: Medical Code(s): R10.13 - Epigastric pain (6) Acute hypokalemia: Status: Acute Category: Medical Code(s): E87.6 - Hypokalemia (7) Hypomagnesemia: Status: Acute Category: Medical Code(s): E83.42 - Hypomagnesemia (8) Hypophosphatemia: Status: Acute Category: Medical Code(s): E83.39 - Other disorders of phosphorus metabolism (9) Vomiting: Status: Acute Category: Medical Code(s): R11.10 - Vomiting, unspecified Plan The patient is a 48-year-old male with a history of alcoholism, COPD, duodenal ulcers, and esophagitis presenting with severe alcohol withdrawal (CIWA 29), dehydration, and worsening abdominal pain with persistent vomiting and significant weight loss. Given his history of GI pathology, the abdominal pain i s concerning for gastritis, ulcer recurrence, or underlying intra-abdominal pathology, though CT imaging showed stomach and small bowel thickening without obstruction or pancreatitis. Labs are notable for hypokalemia, hypophosphatemia, and hypomagnesemia, requiring electrolyte replacement. AST is elevated, likely secondary to alcohol-related liver injury. He received benzodiazepines for withdrawal, IV fluids, a rally pack, and pantoprazole for GI protection, with symptomatic improvement on re-evaluation. Given the severity of withdrawal and GI history, he is admitted for continued CIWA monitoring, electrolyte repletion, and further evaluation of abdominal symptoms. Showing some improvement. De- escalate to MedSurg. Continue inpatient management with CIWA scoring. Problems addressed as follows: Acute Alcohol Withdrawal Chronic alcoholism -Continue CIWA protocol. Continue Valium per protocol. Score showing improvement, in the single digits -Loaded with phenobarbital. Decreased to 65 mg twice daily. -automated logistics specialist consulted to assist with potential rehab referral and outpatient management once stable to discharge -Continue vitamins per protocol with thiamine, folate, multivitamin daily -Seizure precaution -Mirtazapine 15 mg nightly for anxiety component associated with his alcohol withdrawal Malnutrition Electrolyte disturbance - Magnesium 1.8, potassium 3.2, phosphorus 2.9. Continue regular diet with supplementation. -Repeat CBC, CMP, magnesium ordered for the morning -Patient reports weight loss over the past several months. Patient appears to be the same weight as he was in April per review of chart Gastritis/Abdominal Pain & Vomiting - IV pantoprazole 40 mg BID for ulcer prophylaxis. - Oral sucralfate suspension if mucosal irritation suspected COPD Tobacco use disorder -DuoNebs scheduled every 6 hours. No pneumonia on CT. Has significant bronchiectasis. -White count remains normal at 5.5. -Stable on room air. Goal sats greater 90% -Initiate Levaquin 750 mg daily for 5 days due to bronchitis. Full code Regular diet
[2024-08-04] MEDS: NICOTINE 21MG/24HR PATCH 21 MG TD (09:14)
[2024-08-04] MEDS: SENNOSIDES 8.6MG/DOCUSATE 50MG TABLET 2 TAB PO ×2 (11:35→20:36)
--- NOTE | 2024-08-04 12:27 | PC.NURSE ---
pt to M/S via wheelchair @ 3070
--- NOTE | 2024-08-04 12:35 | PC.NURSE ---
Patient arrived to room 208 via wheelchair in stable condition
--- NOTE | 2024-08-04 13:43 | SW/DCPLANNER ---
Addendum entered by Nayana Zavaleta 08/06/24 09:00: I spoke w/ patient again this AM regarding inpatient vs outpatient. Patient continues to express he is only interested in outpatient services and is currently established w/ [facility]. Peer Support will continue to follow up w/ this patient as well. Discharge date is unknown at this time. I will continue to follow up w/ patient and assistance w/ any further needs/questions. Original Note: I spoke w/ this patient regarding plans once medically stable for discharge. Patient and I discussed inpatient vs outpatient drug/alcohol treatment. Patient expressed that he is not interested in inpatient rehab at this time. Patient is agreeable to outpatient services once medically stable for discharge. Peer Support has been consulted to speak w/ this patient. I will follow up once PS speaks w/ patient. Discharge date is unknown at this time.
--- NOTE | 2024-08-04 15:13 | PC.NURSE ---
Patient alert and oriented to self, place and situation. Anxious. Hypertensive. Other vital signs stable. Up with 1. Tolerating oral intake. CIWA's completed and valium administered per orders. Peer support consult in place. Electrolytes replaced per protocol. Will continue to monitor CIWA's and treat withdrawal as indicated
[2024-08-04] MEDS: diazePAM 10MG/2ML SYRINGE 5 MG IV (15:57)
[2024-08-04] MEDS: PRENATAL MULTIVITAMIN W/IRON 1 EACH PO (15:59)
--- NOTE | 2024-08-04 18:29 | PC.NURSE ---
1800 CIWA NOT DONE. PT IS RESTING COMFORTABLY WITH EYES CLOSED AT THIS TIME.
[2024-08-04] MEDS: MIRTAZAPINE 15 MG TABLET PO (20:35)
[2024-08-04] MEDS: LEVOFLOXACIN/D5W 750 MG/150 ML 750 MG/150 ML PIGGYBACK 100 MG IV (22:13)
[2024-08-05] VITALS (13 sets, daily range): BP systolic 104–142; BP diastolic 54–98; PULSE 75–91; RESP 16–20; TEMP 36.8–37.2; O2SAT 95–99; BMI 21.8
[2024-08-05] MEDS: diazePAM 5MG TABLET 5 MG PO ×2 (02:59→21:01)
--- NOTE | 2024-08-05 03:39 | PC.NURSE ---
PT IS RESTING IN BED. ALERT AND ORIENTED X3. EATING AND DRINKING WELL. PT HAS ONLY COMPLAINED OF FEELING ANXIOUS AND RESTLESS ONCE THIS SHIFT. MEDICATED PER MAR WITH PO VALIUM. LUNG SOUNDS DIMINISHED WITH SCATTERED RHONCHI. ABDOMEN SOFT/NON TENDER WITH ACTIVE BOWEL SOUNDS. PT AMBULATED TO THE BATHROOM WITH 1 ASSIST TO ATTEMPT TO HAVE A BOWEL MOVEMENT AND WAS UNABLE. PASSING FLATUS. PT CONTINUES TO BE UNSTEADY WHILE AMBULATING. VSS. WILL CONTINUE TO MONITOR.
[2024-08-05] MEDS: IPRATROPIUM/ALBUTEROL 3 ML NEB IH ×4 (06:14→23:15)
[2024-08-05] MEDS: FLUTICASONE/SALMETEROL 250/50MCG DISKUS 1 PUFF IH ×2 (06:14→18:15)
[2024-08-05 06:32] LABS: Basophils % 0.3 % (0.1-2.0); Eosinophils # 0.1 K/mm3 (0.0-0.4); Eosinophils % 1.7 % (0.1-12.0); Hemoglobin 12.5 g/dL (14.1-18.0); Lymphocytes # 1.9 K/mm3 (0.7-4.5); Lymphocytes % 25.9 % (10-50); Mean Corpuscular HGB Conc 31.3 g/dL (31.8-35.4); Mean Corpuscular Hemoglobin 29.6 pg (27.0-31.2); Mean Corpuscular Volume 94.8 fl (80-94); Mean Platelet Volume 11.2 fl (7.4-10.4); Monocytes # 0.7 K/mm3 (0.1-1.0); Monocytes % 9.9 % (1.7-9.3); Neutrophils # 4.4 K/mm3 (1.8-7.8); Neutrophils % 61.9 % (37.0-80.0); Platelet Count 78 K/mm3 (142-424); Red Blood Count 4.22 M/mm3 (4.60-6.20); Red Cell Distribution Width 16.8 % (11.5-17.5); White Blood Count 7.2 K/mm3 (4.8-10.8)
[2024-08-05 06:33] LABS: Albumin Level 3.4 g/dl (3.5-5.0); Chloride 100 mmol/L (98-107); Sodium 135 mmol/L (136-145)
[2024-08-05 06:35] LABS: Blood Urea Nitrogen 6 mg/dl (9-20); Creatinine Clearance Estimated 138 mL/min (50-200); Estimated Glomerular Filt Rate 143 ml/min (>60); GFR (African American) 173 ML/MIN (>60)
[2024-08-05 06:36] LABS: Alanine Aminotransferase 18 U/L (12-78); Albumin/Globulin Ratio 1.1 (1.1-1.8); Alkaline Phosphatase 153 U/L (38-126); Aspartate Amino Transferase 108 U/L (17-59); Bilirubin,Total 0.3 mg/dl (0.2-1.3); Calcium 8.7 mg/dl (8.4-10.2); Carbon Dioxide 31 mmol/L (22.0-30.0); Globulin 3.1 g/dL (1.3-3.2); Glucose 95 mg/dl (74-100); Total Protein,Serum 6.5 g/dl (6.3-8.2)
[2024-08-05 07:10] LABS: Magnesium 1.6 mg/dl (1.6-2.3); Phosphorous 2.5 mg/dl (2.5-4.5)
[2024-08-05] MEDS: SENNOSIDES 8.6MG/DOCUSATE 50MG TABLET 2 TAB PO ×2 (08:38→21:01)
[2024-08-05] MEDS: BUPRENORPHINE/NALOXONE 8MG/2MG ODT 2 EACH SL (08:38)
[2024-08-05] MEDS: PANTOPRAZOLE 40MG TABLET 40 MG PO ×2 (08:38→21:00)
[2024-08-05] MEDS: FOLIC ACID 1MG TABLET 1 MG PO (08:38)
[2024-08-05] MEDS: THIAMINE 100MG TABLET 100 MG PO (08:38)
[2024-08-05] MEDS: MAGNESIUM SULFATE IN WATER 2 GM/50 ML PIGGYBACK IV ×2 (08:38→11:09)
[2024-08-05] MEDS: PHENobarbital SOD 65MG/ML INJ 65 MG IV ×2 (08:39→21:04)
[2024-08-05] MEDS: diazePAM 10MG/2ML SYRINGE 5 MG IV (11:15)
[2024-08-05] MEDS: levoFLOXacin 750 MG TABLET PO (11:18)
--- NOTE | 2024-08-05 16:01 | EXP.PN ---
Subjective *Date: 08/14/24 *Time: 14:50 Interval history: Laying comfortably in bed without acute concerns or distress. Continues to improve with alcohol withdrawal regimen. Will stop phenobarbital today. Exam Data for Last 24 hours Vital signs and Labs for Last 24 Hours: Temp Pulse Resp BP Pulse Ox O2 Del Method O2 Flow Rate 98.3 F 80 18 105/62 L 98 Room Air 1 08/05/24 15:52 08/05/24 15:52 08/05/24 15:52 08/05/24 15:52 08/05/24 15:52 08/05/24 15:52 08/02/24 09:00 Laboratory Results - last 24 hr 08/05/24 05:44: WBC 7.2 D, RBC 4.22 L, Hgb 12.5 L, Hct 40.0 L, MCV 94.8 H, MCH 29.6, MCHC 31.3 L, RDW 16.8, Plt Count 78 L, MPV 11.2 H, Neut % (Auto) 61.9, Lymph % (Auto) 25.9, [place] % (Auto) 9.9 H, Eos % (Auto) 1.7, Baso % (Auto) 0.3, Neut # (Auto) 4.4, Lymph # (Auto) 1.9, [place] # (Auto) 0.7, Eos # (Auto) 0.1, Baso # (Auto) 0.0, Sodium 135 L, Potassium 5.0 D, Chloride 100, Carbon Dioxide 31 H, Anion Gap 9.0, BUN 6 L, Creatinine 0.60 L, Estimated Creat Clear 138, Estimated GFR 143, Est GFR ( Amer) 173, Glucose 95, Calcium 8.7, Phosphorus 2.5, Magnesium 1.6 D, Total Bilirubin 0.3, AST 108 H, ALT 18, Alkaline Phosphatase 153 H, Total Protein 6.5, Albumin 3.4 L D, Globulin 3.1, Albumin/Globulin Ratio 1.1 I & O for Last 24 hours: Intake & Output 08/02/24 08/03/24 08/04/24 08/05/24 23:59 23:59 23:59 23:59 Intake Total 1030 / 1150 1180 / 1180 1490 / 1635 925 / 925 Output Total 1050 / 1050 2575 / 2575 2400 / 2400 1500 / 1500 Balance -20 / 100 -1395 / -1395 -910 / -765 -575 / -575 Weight 62.233 kg 64.274 kg 65.119 kg 65.4 kg Constitutional Constitutional: no acute distress *Routine HEENT Exam Head: Present normocephalic Eye: Present EOMI and PERRL ENT: Present mucous membranes moist *Routine Neck Exam Neck: Present supple; Absent lymphadenopathy *Routine Respiratory Exam Respiratory: Present CTA bilaterally *Routine Cardiovascular Exam Cardiovascular: Present RRR *Routine Abdominal Exam Abdominal: Present soft and normoactive bowel sounds; Absent tenderness Comments: Normoactive bowel sounds and soft benign abdomen *Routine Extremities Exam Extremities: Absent cyanosis, clubbing or edema *Routine Skin Exam Skin: Present warm; Absent rash *Routine Neurological Exam Neurological: Present alert Routine Psychiatric Exam Comments: Anxious. Assessment and Plan *Assessment and plan (1) Alcohol withdrawal: Status: Acute Qualifiers: Complication of substance-induced condition: with unspecified complication Qualified Code(s): F10.939 - Alcohol use, unspecified with withdrawal, unspecified Category: Medical Code(s): F10.939 - Alcohol use, unspecified with withdrawal, unspecified (2) Abdominal pain: Status: Acute Category: Medical Code(s): R10.9 - Unspecified abdominal pain (3) Early satiety: Status: Acute Category: Medical Code(s): R68.81 - Early satiety (4) Substance use disorder: Status: Acute Category: Medical Code(s): F19.90 - Other psychoactive substance use, unspecified, uncomplicated (5) Dyspepsia: Status: Acute Category: Medical Code(s): R10.13 - Epigastric pain (6) Acute hypokalemia: Status: Acute Category: Medical Code(s): E87.6 - Hypokalemia (7) Hypomagnesemia: Status: Acute Category: Medical Code(s): E83.42 - Hypomagnesemia (8) Hypophosphatemia: Status: Acute Category: Medical Code(s): E83.39 - Other disorders of phosphorus metabolism (9) Vomiting: Status: Acute Category: Medical Code(s): R11.10 - Vomiting, unspecified (10) Alcohol use disorder: Status: Acute Category: Medical Code(s): F10.90 - Alcohol use, unspecified, uncomplicated Plan Brandon Dave is a 48-year-old male who was admitted for alcohol withdrawal, COPD exacerbation #Alcohol use disorder #Alcohol withdrawal ? CIWA scores between around 10 today. ? Continue discontinued phenobarbital today. ? Continue diazepam as needed. #Duodenal ulcer # Dysphagia ? Previous EGD revealed clean-based ulcer s/p Endo Clip placement. ? Unfortunately, patient continues to drink in the setting of depression/anxiety. ? Continue Protonix 40 mg twice daily. ? GI consulted for dysphagia, pending recommendations. #Anxiety/depression ? Patient lost his significant other and mother over the past 2 years, continues to have grief and depression from this. ? Unfortunately uses alcohol as therapy. ? Behavioral health consulted, pending recommendations. #COPD exacerbation ? Continue breathing treatments, Levaquin, started prednisone. Full code DVT prophylaxis: Lovenox 40 mg
--- NOTE | 2024-08-05 16:19 | PEERSUPPORT ---
Peer Support Note Patient Information Patient Information: DOS: 08/05/2024 ? Reason: ETOH/AUD PS consult ? Building Rapport: Pt openly admitted that he is in bad shape, with drinking and his health. He is able to share that he is having hallucinations and night vivar. He says he knew to come to the hospital when he could not hold down any liquid or food for vomiting. ? He briefly shares of a relationship that he recently found is actively using other drugs. ? Pt still enrolled with [facility], but missed his appointment this past Sunday due to being so ill, not able to get out of bed to drive. He did not feel it was safe to drive, so he did not go. ? Pt shared that he is scared that the hospital is not going to keep seeing him for the same reasons, and cannot figure out why he goes back to drinking each time. ? Ps shared personal experience relevant to normalize the process of emotions and awareness to recovery with relapse is not the end, but an opportunity to restart and try again. ? Ps provided words of comfort to acknowledge and validate feelings of pt with reminders that the hospital is here to care for him no matter the number of times even with same reasons such as alcohol use disorder. ? Pt is distracted by a dog that he says is in the room. Ps informs him that hallucinations are normal during alcohol detox, and explores if he is feared by this. ? Pt stated he is not scared of it, saying it is just a small little thing. ? Respiratory therapy provides breathing treatment; ps to return for follow-up. ? Ps acted as advocate to pt discussing with nurse pts hallucinations. Ps Follow up visit at bedside: Pt resting following nurse giving comfort meds. Ps will revisit. Ps Follow up visit at bedside: Pt is having a breathing treatment, stated he is hopeful to rest better tonight. Unable to eat dinner, request an ensure. Ps provides pt with ensure drink, and comforting affirmations with a plan to visit in the morning to further discuss a plan for when discharged. Pt not interested in inpatient at this time, but aware of the health risk involved with continued use. Ps to discuss a plan for follow up with [facility] once discharged, as well as underlying issues. Pt identified depression and anxiety with stress has led to drinking and poor health.
[2024-08-05] MEDS: PRENATAL MULTIVITAMIN W/IRON 1 EACH PO (17:25)
--- NOTE | 2024-08-05 17:29 | PC.NURSE ---
Pt is alert and oriented x3. Rhonchi noted to lungs. He remains on RA and tolerating well. CIWA's have between 4-11 this shift. He has had occasional hallucinations and reports having nightmares. Treated per protocol. Bilateral IV's were painful to flush so new IV placed to [facility]. He's ambulated to the bathroom w/assist x1. He is unsteady on his feet. Peer support has been at bedside today. He currently denies any complaints.
[2024-08-05] MEDS: MIRTAZAPINE 15 MG TABLET PO (21:00)
[2024-08-06] VITALS (10 sets, daily range): BP systolic 94–124; BP diastolic 59–72; PULSE 80–100; RESP 16–19; TEMP 36.6–37; O2SAT 95–97; BMI 21.5
--- NOTE | 2024-08-06 02:17 | PC.NURSE ---
PT IS RESTING IN THE CHAIR AT THIS TIME. PT STATED THE BED WAS UNCOMFORTABLE. ALERT AND ORIENTED X3. EATING AND DRINKING WELL THIS SHIFT. MEDICATED PER MAR WITH PO VALIUM FOR CIWA SCORE OF 5. LUNG SOUNDS DIMINISHED WITH SCATTERED RHONCHI. ABDOMEN SOFT/NON TENDER WITH HYPOACTIVE BOWEL SOUNDS. WILL CONTINUE TO MONITOR.
[2024-08-06] MEDS: NICOTINE 21MG/24HR PATCH 21 MG TD (03:57)
[2024-08-06] MEDS: diazePAM 5MG TABLET 5 MG PO (05:13)
[2024-08-06] MEDS: FLUTICASONE/SALMETEROL 250/50MCG DISKUS 1 PUFF IH ×2 (06:09→18:57)
[2024-08-06] MEDS: IPRATROPIUM/ALBUTEROL 3 ML NEB IH ×4 (06:09→23:52)
[2024-08-06 06:27] LABS: Basophils % 0.3 % (0.1-2.0); Eosinophils # 0.2 K/mm3 (0.0-0.4); Eosinophils % 2.2 % (0.1-12.0); Hematocrit 42.1 % (42.0-52.0); Lymphocytes % 26.1 % (10-50); Mean Corpuscular HGB Conc 30.9 g/dL (31.8-35.4); Mean Corpuscular Hemoglobin 29.1 pg (27.0-31.2); Mean Corpuscular Volume 94.2 fl (80-94); Monocytes % 12.5 % (1.7-9.3); Neutrophils # 4.5 K/mm3 (1.8-7.8); Neutrophils % 58.4 % (37.0-80.0); Platelet Count 63 K/mm3 (142-424); Red Blood Count 4.47 M/mm3 (4.60-6.20); Red Cell Distribution Width 16.6 % (11.5-17.5); White Blood Count 7.8 K/mm3 (4.8-10.8)
[2024-08-06] MEDS: BUPRENORPHINE/NALOXONE 8MG/2MG ODT 2 EACH SL (08:03)
[2024-08-06] MEDS: PANTOPRAZOLE 40MG TABLET 40 MG PO ×2 (08:04→20:47)
[2024-08-06] MEDS: SENNOSIDES 8.6MG/DOCUSATE 50MG TABLET 2 TAB PO ×2 (08:04→20:46)
[2024-08-06] MEDS: FOLIC ACID 1MG TABLET 1 MG PO (08:04)
[2024-08-06] MEDS: THIAMINE 100MG TABLET 100 MG PO (08:04)
[2024-08-06 09:16] LABS: Free T4 (Free Thyroxine) 0.73 ng/dl (0.78-2.19)
[2024-08-06 09:46] LABS: Magnesium 1.7 mg/dl (1.6-2.3)
[2024-08-06 10:04] LABS: 25-OH Vitamin D, Total 25.3 ng/mL (30-100)
[2024-08-06 10:10] LABS: Albumin Level 3.7 g/dl (3.5-5.0); Chloride 100 mmol/L (98-107); Potassium 5.5 mmoL/L (3.5-5.1); Sodium 135 mmol/L (136-145)
[2024-08-06 10:13] LABS: Alanine Aminotransferase 19 U/L (12-78); Albumin/Globulin Ratio 1.1 (1.1-1.8); Alkaline Phosphatase 167 U/L (38-126); Anion Gap 13.5 mEq/L (5-15); Aspartate Amino Transferase 84 U/L (17-59); Bilirubin,Total 0.5 mg/dl (0.2-1.3); Blood Urea Nitrogen 12 mg/dl (9-20); Carbon Dioxide 27 mmol/L (22.0-30.0); Creatinine Clearance Estimated 116 mL/min (50-200); Estimated Glomerular Filt Rate 120 ml/min (>60); GFR (African American) 145 ML/MIN (>60); Globulin 3.3 g/dL (1.3-3.2)
[2024-08-06 10:14] LABS: Calcium 9.4 mg/dl (8.4-10.2); Glucose 116 mg/dl (74-100)
[2024-08-06 10:18] LABS: Thyroid Stimulating Hormone 8.82 uIU/mL (0.465-4.68)
--- NOTE | 2024-08-06 10:18 | PEERSUPPORT ---
Peer Support Note Patient Information Patient Information: DOS: 08/06/2024 ? Reason: ETOH Ps folllow up ? Building Rapport: Pt drinking 2 shots of fireball every 30-45 minutes a day. -Feels like he has something more wrong with him such as cancer, Parkinson's, or something that is really bad and the doctors have not found it yet. -Hallucinations are worse when he is alone, hearing voices call his name no commands by voices, pt not feared of these voices. He answers them and then no one answers back. ? Pt reflects Dr. Marroquin recommendations to intensive outpatient. -Ps and pt discuss intensive outpatient treatment, and requirements of 3 days per week, three hours per day. Ps and pt discuss conversations to be had with employer who is very supportive of his wellness.? -Pt is unsure if he is able to adhere to these. ? Ps presents other option of inpatient treatment for short? term in order to gain some accountable sobriety, then return to [facility] where he has been participating for many years. ? Pt is to think and pray on these options and plans then to be discussed on 08/07/2024. ? Socialization: Pt is able to identify people who he associates with being safe, cautious, and dangerous for his recovery. This is a recovery skill he learned at [facility], saying this has not left? his mind, as he still thinks of it. Ps reflected these skills with encouragement to practice these currently with who and what he is doing in his life on a day to day basis. ? -Pt shared experiences with [facility] that has brought negative feelings -Pt able to shift to a more accepting and open minded perspective. ? Ps shared personal experience relevant to encourage acceptance and adaptability. ? ? Self-advocacy: Ps discussed with pt openly speaking concerns and needs with the doctors and nurses in order to make better decisions for himself as well as discussions with friends, family, and others to make them aware of his goals.
[2024-08-06 10:37] LABS: Vitamin B12 534 pg/mL (239-931)
[2024-08-06] MEDS: LEVOTHYROXINE 25MCG (0.025MG) TAB 25 MCG PO (10:49)
[2024-08-06] MEDS: POLYETHYLENE GLYCOL 3350 17 GM PACKET PO (10:49)
[2024-08-06] MEDS: THIAMINE HCL 300 MG in 0.9 % SODIUM CHLORIDE 50 ML 204 MG IV ×2 (10:50→19:39)
[2024-08-06] MEDS: levoFLOXacin 750 MG TABLET PO (10:50)
[2024-08-06] MEDS: diazePAM 10MG/2ML SYRINGE 5 MG IV ×2 (11:02→23:16)
[2024-08-06] MEDS: MAGNESIUM SULFATE IN WATER 2 GM/50 ML PIGGYBACK IV ×2 (11:43→12:49)
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
--- NOTE | 2024-08-06 14:56 | EXP.PN ---
Subjective *Date: 08/06/24 *Time: 14:56 Interval history: Patient readmitted with abdominal pain. He does report globus sensation and something hung in his throat. He continues to have abdominal pain. His hemoglobin hematocrit have been stable (hemoglobin 13.0 and hematocrit 42.1 (improved from previously)). He still states that he has some blood intermittently with stools. Patient does have thrombocytopenia which appears new. Liver chemistries remain mildly elevated from alcohol. Exam Data for Last 24 hours Vital signs and Labs for Last 24 Hours: Temp Pulse Resp BP Pulse Ox O2 Del Method O2 Flow Rate 98.6 F 86 18 115/67 96 Room Air 1 08/06/24 11:50 08/06/24 11:50 08/06/24 11:50 08/06/24 11:50 08/06/24 11:50 08/06/24 13:00 08/02/24 09:00 Laboratory Results - last 24 hr 08/06/24 05:40: WBC 7.8, RBC 4.47 L, Hgb 13.0 L, Hct 42.1, MCV 94.2 H, MCH 29.1, MCHC 30.9 L, RDW 16.6, Plt Count 63 L, MPV 13.0 H, Neut % (Auto) 58.4, Lymph % (Auto) 26.1, [place] % (Auto) 12.5 H, Eos % (Auto) 2.2, Baso % (Auto) 0.3, Neut # (Auto) 4.5, Lymph # (Auto) 2.0, Lanier # (Auto) 1.0, Eos # (Auto) 0.2, Baso # (Auto) 0.0, Vitamin B12 534, 25-OH Vitamin D Total 25.3 L, TSH 8.82 H, Free T4 0.73 L 08/06/24 05:50: Magnesium 1.7 08/06/24 : Sodium 135 L, Potassium 5.5 H, Chloride 100, Carbon Dioxide 27, Anion Gap 13.5, BUN 12 D, Creatinine 0.70, Estimated Creat Clear 116, Estimated GFR 120, Est GFR ( Amer) 145, Glucose 116 H, Calcium 9.4, Total Bilirubin 0.5, AST 84 H, ALT 19, Alkaline Phosphatase 167 H, Total Protein 7.0, Albumin 3.7, Globulin 3.3 H, Albumin/Globulin Ratio 1.1 I & O for Last 24 hours: Intake & Output 08/03/24 08/04/24 08/05/24 08/06/24 23:59 23:59 23:59 23:59 Intake Total 1180 / 1180 1490 / 1635 1195 / 1195 800 / 800 Output Total 2575 / 2575 2400 / 2400 2300 / 2700 400 / 400 Balance -1395 / -1395 -910 / -765 -1105 / -1505 400 / 400 Weight 141 lb 11.2 oz 143 lb 9 oz 144 lb 2.917 oz 141 lb 15.643 oz *Routine Abdominal Exam Abdominal: Present tenderness Comments: Normoactive bowel sounds, mildly tender without rebound or guarding, no masses Assessment and Plan *Assessment and plan (1) Epigastric pain: Status: Acute Category: Medical Code(s): R10.13 - Epigastric pain (2) Globus sensation: Status: Acute Category: Medical Code(s): R09.A2 - Foreign body sensation, throat (3) Alcohol use disorder: Status: Acute Category: Medical Code(s): F10.90 - Alcohol use, unspecified, uncomplicated (4) Abdominal pain: Status: Acute Category: Medical Code(s): R10.9 - Unspecified abdominal pain (5) Alcoholic fatty liver: Status: Acute Category: Medical Code(s): K70.0 - Alcoholic fatty liver Plan 1. Epigastric abdominal pain with some generalized abdominal pain. CAT scan showed fluid-filled small bowel. Hemoglobin hematocrit are normal. I would continue pantoprazole along with misoprostol. The misoprostol has healing effect on the ulcer disease but also should help with his obstipation. Unfortunately, the patient continues to drink alcohol. He does have alcohol use disorder and buprenorphine?naloxone has been utilized. I would like for him to seek further help with rehabilitation. 2. Globus sensation. Last colonoscopy did show distal fibrous ring that was dilated maximally to 20 mm. The entire esophagus was dilated to 20 mm. I am not going to repeat endoscopy presently. Globus sensation is a functional esophageal disorder characterized by a sensation of a lump, retained food bolus or mucus, or tightness in the throat. Occasionally persons can feel or report some very mild chest pressure or rarely chest pain. The lump in the throat sensation that characterizes globus pharyngis is often caused by inflammation of one or more parts of the throat (larynx/hypopharynx-in the lower portion of the throat) due to spasm of the cricopharyngeus (upper esophageal sphincter muscle). This inflammation occurs from increased gas pressure gradients driving gastroesophageal reflux and associated esophageal spasm. 3. Duodenal ulcer disease. Continue pantoprazole plus misoprostol. 4. Alcohol use disorder.
--- NOTE | 2024-08-06 15:05 | HMH.OTEV ---
OT Inpatient Evaluation Rehab OT IP Evaluation Start: 08/06/24 10:44 Freq: ONCE Status: Active Protocol: Document 08/06/24 15:[address] [facility] (Rec: 08/06/24 15:04 [facility] [id number]) Rehab OT IP Assessment Subjective History Pt oriented x 3 on arrival. Pt agreeable to engage in therapy evaluation. Pt admitted on 08/02/24 due to Alcohol withdrawal. History and physical: The patient is a 48-year-old male with a history of COPD, alcoholism, duodenal ulcers, esophagitis, opioid dependence on Suboxone and gastritis who presents with worsening abdominal pain, vomiting, and alcohol withdrawal symptoms after not consuming alcohol for the past two days due to nausea and vomiting and abdominal pain.. He reports typically drinking at least six Fireballs per day and has experienced progressive weight loss of approximately 30 pounds over the past month. He describes the abdominal pain as diffuse, constant, and worsening over the past month, accompanied by persistent nonbloody, nonbilious vomiting . He denies hematemesis or melena but notes generalized weakness, tremors, fatigue, nausea, and difficulty concentrating. On arrival, the patient was in active alcohol withdrawal, exhibiting tremors, diaphoresis, agitation, and a CIWA score of 29. He was actively vomiting and appeared dehydrated. His physical exam was notable for bilateral wheezing, abdominal tenderness , and oral thrush. Laboratory results were significant for electrolyte derangements, including hypokalemia (K+ 3.1) , hypophosphatemia (Phos 0.9), and hypomagnesemia (Mg 1.2). Alcohol level was undetectable. Liver function tests showed elevated AST (220 ) with normal ALT (29), and alkaline phosphatase was mildly elevated at 252. Lipase was negative. CT abdomen and pelvis with IV contrast demonstrated thickening of the stomach and small bowel without obstruction or evidence of pancreatitis. EKG showed sinus rhythm with a short MA interval but no acute ischemic changes. Given his history, presentation, and findings, the patient was diagnosed with acute alcohol withdrawal, acute gastroenteritis, and dehydration. He was given a rally pack (thiamine, folate, magnesium), IV fluids, pantoprazole, and symptomatic management with IV Valium (15 mg). After treatment, he reported symptomatic improvement, reduced tremors, and improved coherence. Given the severity of symptoms and history of GI pathology, he was admitted for further evaluation and management. Subjective Prior to being in the hospital , pt lived at home alone. Pt claims normally he was independent with all ADLs. He was also still driving. He does use a can during functional transfers. Pt has friends that assist him with heavier household tasks and other IADLS. Objective Patient Orientation Person,Place,Birthday Right Upper Extremity Gross ROM WFL Left Upper Extremity Gross ROM WFL Transfer Training Sit/Stand Transfer Assist Level Contact Guard/Hand Hold Chair Transfer Ability Contact Guard/Hand Hold Chair Transfer Technique Sit to/from Ambulatory Rehab OT IP prob,goals,plan Problems Date of Evaluation: 08/06/24 OT IP Problems Bed Mobility,Transfers,Balance ,Self care,Safety Rehab Potential Rehab Potential Good Equipment Needs Assistive Devices Rolling / Wheeled Walker Plan OT intervention Plan Bed Mobility,Transfers,Balance ,Self care,Safety,Therapeutic Exercise OT Plan Frequency Daily Duration LOS Discharge Goals Bed Mobility Ability Standby Assistance Sit to Stand Chair Transfer Ability Supervision/Stand by Chair Transfer Ability Supervision/Stand by Chair Transfer Technique Sit to/from Ambulatory Chair Transfer Assistive Devices Rolling Walker Lower Body Dressing Ability Minimal Assistance Upper Body Dressing Ability Standby Assistance Bathing Ability Minimal Assistance Performing Toilet Hygiene Ability Contact Guard Overall Commode/Toilet Transfer Ability Standby Assistance Commode/Toilet Transfer Technique Sit to/from Ambulatory Commode/Toilet Transfer Assistive Grab Bars Devices Discharge Plan OT Discharge Plan Pt will continue to be seen for OT services while he is at [facility]. However, pt appears to be close to baseline with functional transfers and ADL independence. Pt can return home once he is medically stable. Therapist does recommend OT evaluation upon discharge for continued skilled therapy services. Eval Complexity Eval Charge Codes 44246 - Moderate Complexity PHYSICIAN CERTIFICATION: I certify the specified therapy services for Brandon Dave are required, authorized, and reviewed every 30 days.
--- NOTE | 2024-08-06 17:45 | PC.NURSE ---
Deborah Corral APRN at bedside for behavioral health consultation.
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
[2024-08-06] MEDS: PRENATAL MULTIVITAMIN W/IRON 1 EACH PO (19:39)
[2024-08-06] MEDS: miSOPROStoL 200 MCG TABLET PO (20:45)
[2024-08-06] MEDS: MIRTAZAPINE 15 MG TABLET PO (20:45)
[2024-08-06] MEDS: SODIUM CHLORIDE 0.9% 10ML FLUSH SYRINGE 10 ML IV (20:54)
--- NOTE | 2024-08-06 22:05 | P.PN_ITS ---
Subjective *Date: 08/07/24 *Time: 22:12 Exam Data for Last 24 hours Vital signs and Labs for Last 24 Hours: Temp Pulse Resp BP Pulse Ox O2 Del Method O2 Flow Rate 97.9 F 92 H 18 94/64 L 95 Room Air 1 08/06/24 20:00 08/06/24 20:00 08/06/24 20:00 08/06/24 20:00 08/06/24 20:00 08/06/24 20:00 08/02/24 09:00 Laboratory Results - last 24 hr 08/06/24 05:40: WBC 7.8, RBC 4.47 L, Hgb 13.0 L, Hct 42.1, MCV 94.2 H, MCH 29.1, MCHC 30.9 L, RDW 16.6, Plt Count 63 L, MPV 13.0 H, Neut % (Auto) 58.4, Lymph % (Auto) 26.1, [place] % (Auto) 12.5 H, Eos % (Auto) 2.2, Baso % (Auto) 0.3, Neut # (Auto) 4.5, Lymph # (Auto) 2.0, [place] # (Auto) 1.0, Eos # (Auto) 0.2, Baso # (Auto) 0.0, Vitamin B12 534, 25-OH Vitamin D Total 25.3 L, Folate 10.20, TSH 8.82 H, Free T4 0.73 L 08/06/24 05:50: Magnesium 1.7 08/06/24 : Sodium 135 L, Potassium 5.5 H, Chloride 100, Carbon Dioxide 27, Anion Gap 13.5, BUN 12 D, Creatinine 0.70, Estimated Creat Clear 116, Estimated GFR 120, Est GFR ( Amer) 145, Glucose 116 H, Calcium 9.4, Total Bilirubin 0.5, AST 84 H, ALT 19, Alkaline Phosphatase 167 H, Total Protein 7.0, Albumin 3.7, Globulin 3.3 H, Albumin/Globulin Ratio 1.1 I & O for Last 24 hours: Intake & Output 08/03/24 08/04/24 08/05/24 08/06/24 23:59 23:59 23:59 23:59 Intake Total 1180 / 1180 1490 / 1635 1195 / 1195 1200 / 1200 Output Total 2575 / 2575 2400 / 2400 2300 / 2700 400 / 400 Balance -1395 / -1395 -910 / -765 -1105 / -1505 800 / 800 Weight 64.274 kg 65.119 kg 65.4 kg 64.4 kg Constitutional Constitutional: no acute distress *Routine HEENT Exam Head: Present normocephalic Eye: Present EOMI and PERRL ENT: Present mucous membranes moist *Routine Neck Exam Neck: Present supple; Absent lymphadenopathy *Routine Respiratory Exam Respiratory: Present CTA bilaterally *Routine Cardiovascular Exam Cardiovascular: Present RRR *Routine Abdominal Exam Abdominal: Present soft and normoactive bowel sounds; Absent tenderness Comments: Normoactive bowel sounds and soft benign abdomen *Routine Extremities Exam Extremities: Absent cyanosis, clubbing or edema *Routine Skin Exam Skin: Present warm; Absent rash *Routine Neurological Exam Neurological: Present alert Assessment and Plan *Assessment and plan (1) Alcohol use disorder: Status: Acute Category: Medical Code(s): F10.90 - Alcohol use, unspecified, uncomplicated (2) Wernickes encephalopathy: Status: Acute Category: Medical Code(s): E51.2 - Wernicke's encephalopathy Plan Brandon Dave is a 48-year-old male who was admitted for alcohol withdrawal, Warnicke's encephalopathy, COPD exacerbation #Alcohol use disorder #Wernicke's encephalopathy ? Patient has the triad of horizontal nystagmus, confabulation/memory loss, ataxia. ? Continue IV thiamine 300 mg every 8 hours. Patient's symptoms have slightly improved today. ? PT/OT consulted, no rehab needs. #Alcohol use disorder #Alcohol withdrawal ? CIWA was under 10 today. ? Diazepam as needed. ? Will consider gabapentin as Warnicke's encephalopathy improves. #Duodenal ulcer #Globus sensation ? Previous EGD revealed clean-based ulcer s/p Endo Clip placement. ? Unfortunately, patient continues to drink in the setting of depression/anxiety. ? Continue Protonix 40 mg twice daily. ? GI started misoprostol 200 mcg twice daily. Also advised patient is having globus sensation with swallowing. Not a stricture, no plans for EGD. #Anxiety/depression ? Patient lost his significant other and mother over the past 2 years, continues to have grief and depression from this. ? Unfortunately uses alcohol as therapy. ? Behavioral health consulted, recommended restarting Effexor. #COPD exacerbation ? Continue breathing treatments, Levaquin, started prednisone. Full code DVT prophylaxis: Lovenox 40 mg
[2024-08-07] VITALS (9 sets, daily range): BP systolic 100–133; BP diastolic 65–82; PULSE 80–92; RESP 16–20; TEMP 36.8–37.1; O2SAT 93–99; BMI 22.1
[2024-08-07] MEDS: diazePAM 10MG/2ML SYRINGE 10 MG IV (02:09)
[2024-08-07] MEDS: LORazepam 2MG/ML VIAL 1 MG IV (02:58)
[2024-08-07] MEDS: THIAMINE HCL 300 MG in 0.9 % SODIUM CHLORIDE 50 ML 204 MG IV ×3 (03:01→20:00)
[2024-08-07] MEDS: FLUTICASONE/SALMETEROL 250/50MCG DISKUS 1 PUFF IH ×2 (06:17→18:42)
[2024-08-07] MEDS: IPRATROPIUM/ALBUTEROL 3 ML NEB IH ×3 (06:17→18:42)
[2024-08-07 06:57] LABS: Basophils % 0.5 % (0.1-2.0); Eosinophils # 0.2 K/mm3 (0.0-0.4); Hematocrit 43.3 % (42.0-52.0); Hemoglobin 13.7 g/dL (14.1-18.0); Lymphocytes # 1.8 K/mm3 (0.7-4.5); Lymphocytes % 30.2 % (10-50); Mean Corpuscular HGB Conc 31.6 g/dL (31.8-35.4); Mean Corpuscular Hemoglobin 29.7 pg (27.0-31.2); Mean Corpuscular Volume 93.7 fl (80-94); Mean Platelet Volume 11.8 fl (7.4-10.4); Monocytes % 15.8 % (1.7-9.3); Neutrophils # 2.9 K/mm3 (1.8-7.8); Neutrophils % 48.8 % (37.0-80.0); Platelet Count 75 K/mm3 (142-424); Red Blood Count 4.62 M/mm3 (4.60-6.20); Red Cell Distribution Width 16.7 % (11.5-17.5)
[2024-08-07 07:14] LABS: Albumin Level 3.9 g/dl (3.5-5.0); Chloride 96 mmol/L (98-107); Sodium 132 mmol/L (136-145)
[2024-08-07 07:15] LABS: Potassium 5.9 mmoL/L (3.5-5.1)
[2024-08-07 07:17] LABS: Alanine Aminotransferase 19 U/L (12-78); Albumin/Globulin Ratio 1.1 (1.1-1.8); Alkaline Phosphatase 132 U/L (38-126); Anion Gap 10.9 mEq/L (5-15); Aspartate Amino Transferase 88 U/L (17-59); Bilirubin,Total 0.5 mg/dl (0.2-1.3); Blood Urea Nitrogen 13 mg/dl (9-20); Carbon Dioxide 31 mmol/L (22.0-30.0); Creatinine Clearance Estimated 93 mL/min (50-200); Estimated Glomerular Filt Rate 90 ml/min (>60); GFR (African American) 109 ML/MIN (>60); Globulin 3.5 g/dL (1.3-3.2); Total Protein,Serum 7.4 g/dl (6.3-8.2)
[2024-08-07 07:18] LABS: Calcium 9.1 mg/dl (8.4-10.2); Glucose 101 mg/dl (74-100); Magnesium 2.1 mg/dl (1.6-2.3)
[2024-08-07] MEDS: diazePAM 5MG TABLET 5 MG PO ×3 (07:39→20:27)
[2024-08-07] MEDS: LIPASE/PROTEASE/AMYLASE 1 EACH CAPSULE.DR 2 EACH PO ×3 (07:43→17:13)
--- NOTE | 2024-08-07 07:55 | P.PN_ITS ---
Subjective *Date: 08/07/24 *Time: 07:55 Interval history: Patient sleeping this morning when I arrived. He reports no abdominal pain. He has had obstipation/constipation. He is getting some hiccups with associated globus sensation. Exam Data for Last 24 hours Vital signs and Labs for Last 24 Hours: Temp Pulse Resp BP Pulse Ox O2 Del Method O2 Flow Rate 98.7 F 91 H 17 100/66 L 99 Room Air 1 08/07/24 04:00 08/07/24 06:18 08/07/24 04:00 08/07/24 04:00 08/07/24 06:18 08/07/24 06:18 08/02/24 09:00 Laboratory Results - last 24 hr 08/06/24 05:40: Vitamin B12 534, 25-OH Vitamin D Total 25.3 L, Folate 10.20, TSH 8.82 H, Free T4 0.73 L 08/06/24 05:50: Magnesium 1.7 08/06/24 : Sodium 135 L, Potassium 5.5 H, Chloride 100, Carbon Dioxide 27, Anion Gap 13.5, BUN 12 D, Creatinine 0.70, Estimated Creat Clear 116, Estimated GFR 120, Est GFR ( Amer) 145, Glucose 116 H, Calcium 9.4, Total Bilirubin 0.5, AST 84 H, ALT 19, Alkaline Phosphatase 167 H, Total Protein 7.0, Albumin 3.7, Globulin 3.3 H, Albumin/Globulin Ratio 1.1 08/07/24 06:40: WBC 6.0, RBC 4.62, Hgb 13.7 L, Hct 43.3, MCV 93.7, MCH 29.7, MCHC 31.6 L, RDW 16.7, Plt Count 75 L, MPV 11.8 H, Neut % (Auto) 48.8, Lymph % (Auto) 30.2, [place] % (Auto) 15.8 H, Eos % (Auto) 3.0, Baso % (Auto) 0.5, Neut # (Auto) 2.9, Lymph # (Auto) 1.8, [place] # (Auto) 1.0, Eos # (Auto) 0.2, Baso # (Auto) 0.0, Sodium 132 L, Potassium 5.9 H, Chloride 96 L, Carbon Dioxide 31 H, Anion Gap 10.9, BUN 13, Creatinine 0.90 D, Estimated Creat Clear 93, Estimated GFR 90, Est GFR ( Amer) 109 D, Glucose 101 H, Calcium 9.1, Magnesium 2.1 D, Total Bilirubin 0.5, AST 88 H, ALT 19, Alkaline Phosphatase 132 H, Total Protein 7.4, Albumin 3.9, Globulin 3.5 H, Albumin/Globulin Ratio 1.1 I & O for Last 24 hours: Intake & Output 08/04/24 08/05/24 08/06/24 08/07/24 23:59 23:59 23:59 23:59 Intake Total 1490 / 1635 1195 / 1195 1200 / 1620 420 / 420 Output Total 2400 / 2400 2300 / 2700 700 / 700 0 / 0 Balance -910 / -765 -1105 / -1505 500 / 920 420 / 420 Weight 143 lb 9 oz 144 lb 2.917 oz 141 lb 15.643 oz 146 lb 4.8 oz *Routine Abdominal Exam Comments: Normoactive bowel sounds and soft benign abdomen Assessment and Plan *Assessment and plan (1) Globus sensation: Status: Acute Category: Medical Code(s): R09.A2 - Foreign body sensation, throat (2) Hiccups: Status: Acute Category: Medical Code(s): R06.6 - Hiccough (3) Alcoholic fatty liver: Status: Acute Category: Medical Code(s): K70.0 - Alcoholic fatty liver (4) Alcohol use disorder: Status: Acute Category: Medical Code(s): F10.90 - Alcohol use, unspecified, uncomplicated Plan 1. Globus sensation with associated hiccups. He is getting trapped gas in the esophagus. This is common with obstipation/incomplete bowel evacuation. He did have complete esophageal dilation recently with a fibrous ring. I do not feel that this is causing this globus sensation and he did have esophageal dysmotility. I do feel that some of his gas is related to constipation. Also feel that he has some EPI secondary to chronic alcohol abuse and pancreatic injury and possible early chronic pancreatitis. He has had elevated pancreatic chemistries. I would continue the Creon which should help. I would continue misoprostol and pantoprazole. He was n.p.o. but I will allow him to eat. We are not going to perform EGD today. I think he is ready for hospital discharge. He will need continued follow-up for his alcohol use disorder and rehabilitation.
--- NOTE | 2024-08-07 07:55 | PC.NURSE ---
Pt. alert and orientated x 4. Pt. on room air. Pt. has a lot of anxiety issues. CIWA scores 8-16. Pt. was ordered Diazepam IV but unable to tolerate IV form as it was burning . Pt. had a one time dose of Ativan for the CIWA score. This am patient was extremely anxious. Dr. Silver notifed and stated to give PO Diazepam this am. Pt. slept off and on . VSS personal items and call bustos in reach.
[2024-08-07] MEDS: FOLIC ACID 1MG TABLET 1 MG PO (09:11)
[2024-08-07] MEDS: miSOPROStoL 200 MCG TABLET PO ×2 (09:11→20:26)
[2024-08-07] MEDS: BUPRENORPHINE/NALOXONE 8MG/2MG ODT 2 EACH SL (09:11)
[2024-08-07] MEDS: POLYETHYLENE GLYCOL 3350 17 GM PACKET PO (09:11)
[2024-08-07] MEDS: LEVOTHYROXINE 25MCG (0.025MG) TAB 25 MCG PO (09:12)
[2024-08-07] MEDS: PANTOPRAZOLE 40MG TABLET 40 MG PO ×2 (09:12→20:26)
[2024-08-07] MEDS: SENNOSIDES 8.6MG/DOCUSATE 50MG TABLET 2 TAB PO ×2 (09:12→20:26)
[2024-08-07] MEDS: levoFLOXacin 750 MG TABLET PO (11:47)
[2024-08-07 14:42] LABS: Magnesium 1.8 mg/dl (1.6-2.3)
[2024-08-07] MEDS: predniSONE 20MG TAB 40 MG PO (17:12)
[2024-08-07] MEDS: PRENATAL MULTIVITAMIN W/IRON 1 EACH PO (17:14)
--- NOTE | 2024-08-07 18:54 | PC.NURSE ---
patient is a/ox4 and remains on room air. CIWA scores have been 8 and below, treated per MAR. patient started on a regular diet and tolerating well. seizure pads in place. patient ambulated twice in the hallway via walker and stand by assist, tolerated well. call light within reach. no further requests at this time.
--- NOTE | 2024-08-07 22:14 | P.PN_ITS ---
Subjective *Date: 08/07/24 *Time: 22:14 Interval history: Warnicke's encephalopathy could be slightly improving with IV thiamine. Will need 1 more day of IV thiamine. Exam Data for Last 24 hours Vital signs and Labs for Last 24 Hours: Temp Pulse Resp BP Pulse Ox O2 Del Method O2 Flow Rate 98.2 F 86 18 133/66 98 Room Air 1 08/07/24 20:00 08/07/24 20:00 08/07/24 20:00 08/07/24 20:00 08/07/24 20:00 08/07/24 20:00 08/02/24 09:00 Laboratory Results - last 24 hr 08/07/24 06:40: WBC 6.0, RBC 4.62, Hgb 13.7 L, Hct 43.3, MCV 93.7, MCH 29.7, MCHC 31.6 L, RDW 16.7, Plt Count 75 L, MPV 11.8 H, Neut % (Auto) 48.8, Lymph % (Auto) 30.2, [place] % (Auto) 15.8 H, Eos % (Auto) 3.0, Baso % (Auto) 0.5, Neut # (Auto) 2.9, Lymph # (Auto) 1.8, [place] # (Auto) 1.0, Eos # (Auto) 0.2, Baso # (Auto) 0.0, Sodium 132 L, Potassium 5.9 H, Chloride 96 L, Carbon Dioxide 31 H, Anion Gap 10.9, BUN 13, Creatinine 0.90 D, Estimated Creat Clear 93, Estimated GFR 90, Est GFR ( Amer) 109 D, Glucose 101 H, Calcium 9.1, Magnesium 2.1 D, Total Bilirubin 0.5, AST 88 H, ALT 19, Alkaline Phosphatase 132 H, Total Protein 7.4, Albumin 3.9, Globulin 3.5 H, Albumin/Globulin Ratio 1.1 08/07/24 14:10: Magnesium 1.8 D I & O for Last 24 hours: Intake & Output 08/04/24 08/05/24 08/06/24 08/07/24 23:59 23:59 23:59 23:59 Intake Total 1490 / 1635 1195 / 1195 1200 / 1620 1500 / 1500 Output Total 2400 / 2400 2300 / 2700 700 / 700 800 / 800 Balance -910 / -765 -1105 / -1505 500 / 920 700 / 700 Weight 65.119 kg 65.4 kg 64.4 kg 66.361 kg Constitutional Constitutional: no acute distress *Routine HEENT Exam Head: Present normocephalic Eye: Present EOMI and PERRL ENT: Present mucous membranes moist *Routine Neck Exam Neck: Present supple; Absent lymphadenopathy *Routine Respiratory Exam Respiratory: Present CTA bilaterally *Routine Cardiovascular Exam Cardiovascular: Present RRR *Routine Abdominal Exam Abdominal: Present soft and normoactive bowel sounds; Absent tenderness Comments: Normoactive bowel sounds and soft benign abdomen *Routine Extremities Exam Extremities: Absent cyanosis, clubbing or edema *Routine Skin Exam Skin: Present warm; Absent rash *Routine Neurological Exam Neurological: Present alert Assessment and Plan *Assessment and plan (1) Alcohol use disorder: Status: Acute Category: Medical Code(s): F10.90 - Alcohol use, unspecified, uncomplicated (2) Wernickes encephalopathy: Status: Acute Category: Medical Code(s): E51.2 - Wernicke's encephalopathy Plan Barndon Dave is a 48-year-old male who was admitted for alcohol withdrawal, Warnicke's encephalopathy, COPD exacerbation #Alcohol use disorder #Wernicke's encephalopathy ? Patient has the triad of horizontal nystagmus, confabulation/memory loss, ataxia. ? Continue IV thiamine 300 mg every 8 hours. Patient's symptoms have slightly improved today. ? PT/OT consulted, no rehab needs. ? Will need 1 more day of IV thiamine. #Alcohol use disorder #Alcohol withdrawal ? CIWA was under 10 today. ? Diazepam as needed. ? Will consider gabapentin as Warnicke's encephalopathy improves. #Duodenal ulcer #Globus sensation ? Previous EGD revealed clean-based ulcer s/p Endo Clip placement. ? Unfortunately, patient continues to drink in the setting of depression/anxiety. ? Continue Protonix 40 mg twice daily. ? GI started misoprostol 200 mcg twice daily. Also advised patient is having globus sensation with swallowing. Not a stricture, no plans for EGD. #Anxiety/depression ? Patient lost his significant other and mother over the past 2 years, continues to have grief and depression from this. ? Unfortunately uses alcohol as therapy. ? Behavioral health consulted, recommended restarting Effexor. #COPD exacerbation ? Continue breathing treatments, Levaquin, started prednisone. Full code DVT prophylaxis: Lovenox 40 mg
[2024-08-08] VITALS (12 sets, daily range): BP systolic 104–150; BP diastolic 61–104; PULSE 67–90; RESP 16–18; TEMP 36.4–36.8; O2SAT 95–99; BMI 22.0
[2024-08-08] MEDS: IPRATROPIUM/ALBUTEROL 3 ML NEB IH ×3 (00:07→19:00)
[2024-08-08] MEDS: THIAMINE HCL 300 MG in 0.9 % SODIUM CHLORIDE 50 ML 204 MG IV ×2 (03:04→11:43)
[2024-08-08] MEDS: diazePAM 5MG TABLET 5 MG PO ×2 (03:12→14:08)
--- NOTE | 2024-08-08 05:19 | PC.NURSE ---
Pt. is alert and orientated x 4. Pt. is on room air. Pt. continues to c/o high anxiety. CIWA scores 9-13 overnight. Pt. medicated with oral Valium. Pt. has been able to sleep at intervals and the anxiety has slighly lessened. Pt. seen by [facility] support. May be discharged home today. VSS, Personal items and call bustos in reach.
[2024-08-08] MEDS: FLUTICASONE/SALMETEROL 250/50MCG DISKUS 1 PUFF IH ×2 (06:06→19:00)
[2024-08-08] MEDS: LEVOTHYROXINE 25MCG (0.025MG) TAB 25 MCG PO (07:03)
[2024-08-08] MEDS: LIPASE/PROTEASE/AMYLASE 1 EACH CAPSULE.DR 2 EACH PO ×3 (07:04→16:44)
[2024-08-08 07:10] LABS: Albumin Level 4.1 g/dl (3.5-5.0); Chloride 99 mmol/L (98-107); Potassium 5.4 mmoL/L (3.5-5.1); Sodium 132 mmol/L (136-145)
[2024-08-08 07:12] LABS: Alanine Aminotransferase 19 U/L (12-78); Aspartate Amino Transferase 80 U/L (17-59); Blood Urea Nitrogen 18 mg/dl (9-20); Creatinine Clearance Estimated 119 mL/min (50-200); Estimated Glomerular Filt Rate 120 ml/min (>60); GFR (African American) 145 ML/MIN (>60)
[2024-08-08 07:13] LABS: Albumin/Globulin Ratio 1.2 (1.1-1.8); Alkaline Phosphatase 146 U/L (38-126); Anion Gap 13.4 mEq/L (5-15); Bilirubin,Total 0.4 mg/dl (0.2-1.3); Calcium 9.4 mg/dl (8.4-10.2); Carbon Dioxide 25 mmol/L (22.0-30.0); Globulin 3.5 g/dL (1.3-3.2); Glucose 127 mg/dl (74-100); Magnesium 1.7 mg/dl (1.6-2.3); Total Protein,Serum 7.6 g/dl (6.3-8.2)
[2024-08-08] MEDS: POLYETHYLENE GLYCOL 3350 17 GM PACKET PO (08:40)
[2024-08-08] MEDS: BUPRENORPHINE/NALOXONE 8MG/2MG ODT 2 EACH SL (08:40)
[2024-08-08] MEDS: GABAPENTIN 100MG CAPSULE 200 MG PO (08:41)
[2024-08-08] MEDS: PANTOPRAZOLE 40MG TABLET 40 MG PO (08:42)
[2024-08-08] MEDS: predniSONE 20MG TAB 40 MG PO (08:42)
[2024-08-08] MEDS: VENLAFAXINE 37.5MG TABLET 37.5 MG PO (08:42)
[2024-08-08] MEDS: miSOPROStoL 200 MCG TABLET PO (08:42)
[2024-08-08] MEDS: FOLIC ACID 1MG TABLET 1 MG PO (08:42)
[2024-08-08] MEDS: SENNOSIDES 8.6MG/DOCUSATE 50MG TABLET 2 TAB PO (08:43)
[2024-08-08] MEDS: MAGNESIUM SULFATE IN WATER 2 GM/50 ML PIGGYBACK IV ×2 (08:44→09:45)
[2024-08-08 08:47] LABS: Basophils % 0.2 % (0.1-2.0); Eosinophils % 0.2 % (0.1-12.0); Hematocrit 40.9 % (42.0-52.0); Lymphocytes % 16.5 % (10-50); Mean Corpuscular HGB Conc 31.8 g/dL (31.8-35.4); Mean Corpuscular Hemoglobin 29.7 pg (27.0-31.2); Mean Corpuscular Volume 93.6 fl (80-94); Mean Platelet Volume 12.5 fl (7.4-10.4); Monocytes # 0.5 K/mm3 (0.1-1.0); Monocytes % 8.7 % (1.7-9.3); Neutrophils # 4.3 K/mm3 (1.8-7.8); Neutrophils % 72.7 % (37.0-80.0); Platelet Count 75 K/mm3 (142-424); Red Blood Count 4.37 M/mm3 (4.60-6.20); Red Cell Distribution Width 16.6 % (11.5-17.5)
--- NOTE | 2024-08-08 09:03 | EXP.PHA.PN ---
Subjective *Date: 08/08/24 *Time: 09:03 Medical Exam Vital signs and Labs for Last 24 Hours: Vital Signs Temp Pulse Pulse Resp BP BP Pulse Ox 08/08/24 08:56 08/08/24 08:20 08/08/24 08:00 80 08/08/24 07:53 97.8 F 80 18 106/62 L 96 08/08/24 06:51 08/08/24 06:07 72 08/08/24 06:07 67 08/08/24 06:07 97 08/08/24 05:00 08/08/24 04:00 98.1 F 81 16 112/72 95 08/08/24 04:00 75 08/08/24 03:00 08/08/24 01:00 08/08/24 00:07 87 08/08/24 00:07 87 08/08/24 00:07 98 08/08/24 00:00 75 08/08/24 00:00 98.2 F 85 18 104/61 L 96 08/07/24 23:00 08/07/24 21:00 08/07/24 20:00 08/07/24 20:00 90 08/07/24 20:00 98.2 F 86 18 133/66 98 08/07/24 19:00 08/07/24 18:44 89 08/07/24 18:44 92 H 08/07/24 17:00 08/07/24 16:00 98.2 F 91 H 20 110/75 97 08/07/24 16:00 82 08/07/24 15:00 08/07/24 13:00 08/07/24 12:00 90 08/07/24 11:17 82 08/07/24 11:17 82 08/07/24 11:00 O2 Del Method 08/08/24 08:56 Room Air 08/08/24 08:20 Room Air 08/08/24 08:00 08/08/24 07:53 Room Air 08/08/24 06:51 Room Air 08/08/24 06:07 08/08/24 06:07 08/08/24 06:07 Room Air 08/08/24 05:00 Room Air 08/08/24 04:00 Room Air 08/08/24 04:00 08/08/24 03:00 Room Air 08/08/24 01:00 Room Air 08/08/24 00:07 08/08/24 00:07 08/08/24 00:07 Room Air 08/08/24 00:00 08/08/24 00:00 Room Air 08/07/24 23:00 Room Air 08/07/24 21:00 Room Air 08/07/24 20:00 Room Air 08/07/24 20:00 08/07/24 20:00 Room Air 08/07/24 19:00 Room Air 08/07/24 18:44 08/07/24 18:44 08/07/24 17:00 Room Air 08/07/24 16:00 Room Air 08/07/24 16:00 08/07/24 15:00 Room Air 08/07/24 13:00 Room Air 08/07/24 12:00 08/07/24 11:17 08/07/24 11:17 08/07/24 11:00 Room Air Intake and Output 08/07/24 08/08/24 08/08/24 23:59 07:59 15:59 Intake Total 360 / 1850 650 / 1130 480 / 1130 Output Total 800 / 800 0 / 0 Balance -440 / 1050 650 / 1130 480 / 1130 Intake: Intake, Oral Amount 360 / 1700 600 / 1080 480 / 1080 Intake, Total IV Amount 50 / 50 Thiamine HCl 300 mg In 0.9 % 50 / 50 Sodium Chloride 50 ml @ 204 mls /hr IV Q8H [facility] Rx#:[id number] Output: Output, Urine Amount 800 / 800 0 / 0 Other: Number of Voids 1 2 Number of Unmeasured Voids 1 2 Weight 65.862 kg Patient Weight 08/08/24 23:59 Weight 65.862 kg Laboratory Results - last 24 hr 08/07/24 14:10: Magnesium 1.8 D 08/08/24 06:03: WBC 6.0, RBC 4.37 L, Hgb 13.0 L, Hct 40.9 L, MCV 93.6, MCH 29.7, MCHC 31.8, RDW 16.6, Plt Count 75 L, MPV 12.5 H, Neut % (Auto) 72.7, Lymph % (Auto) 16.5, [place] % (Auto) 8.7, Eos % (Auto) 0.2, Baso % (Auto) 0.2, Neut # (Auto) 4.3, Lymph # (Auto) 1.0, [place] # (Auto) 0.5, Eos # (Auto) 0.0, Baso # (Auto) 0.0, Sodium 132 L, Potassium 5.4 H, Chloride 99, Carbon Dioxide 25, Anion Gap 13.4, BUN 18 D, Creatinine 0.70 D, Estimated Creat Clear 119, Estimated GFR 120, Est GFR ( Amer) 145 D, Glucose 127 H D, Calcium 9.4, Magnesium 1.7, Total Bilirubin 0.4, AST 80 H, ALT 19, Alkaline Phosphatase 146 H, Total Protein 7.6, Albumin 4.1, Globulin 3.5 H, Albumin/Globulin Ratio 1.2 I & O for Labs for Last 24 Hours: Intake & Output 08/05/24 08/06/24 08/07/24 08/08/24 23:59 23:59 23:59 23:59 Intake Total 1195 / 1195 1200 / 1620 1500 / 1850 1130 / 1130 Output Total 2300 / 2700 700 / 700 800 / 800 0 / 0 Balance -1105 / -1505 500 / 920 700 / 1050 1130 / 1130 Weight 65.4 kg 64.4 kg 66.361 kg 65.862 kg The patient's infection will respond to the chosen ABx?: Yes Is the patient receiving the right drug, dose, and route?: Yes Could a more targeted ABx be ordered?: No
--- NOTE | 2024-08-08 09:38 | PEERSUPPORT ---
Peer Support Note Patient Information Patient Information: DOS: 08/07/2024 ? Reason: ETOH/AUD Ps follow up ? Pt is having breathing treatment, says they are helping as he can take deeper breaths. Pt stated he is still feeling anxious. He was able to walk today with PT but had a hard time with walking, feeling weak and unstable or sturdy on his feet. Pt is confused to why his surgery or procedure was cancelled. ? Ps reflected the conversation with Dr. Moran as ps was in room during Dr. Moran visit. -Dr. Moran stated he needs [place] to help himself to help him, with his drinking or these issues will continue with his ulcers. He explains the globus in his throat from the trach from the bile raising back up from the stomach and muscles in throat clenching that makes it hard for patient to swallow. Ps reaffirmed the importance of his sobriety being priority in his health overall.? ? He is showing interest in wanting to shower or shave to feel better but does not have the energy at this time. ? Ps provided active listening to validate feelings, reminding him of the process of withdrawal and impact on his physical health takes time. ? Ps shifts to plan of action when he is discharged discussing intensive outpatient, and patients ability to comply with an IOP. Pt stated it would be difficult with his employment. 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 ? 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 Pt is willing to consider a plan of action with [facility] if they are willing to in order to stay well. ? Ps will contact [facility] to ask of a tailored treatment plan for pt. ? ? Ps to follow up bedside. ? duran Mcfarland stated he was dressed and saying he was leaving and calling his ride. ? Pt is setting up on bed dressed to leave. Pt stated his employer in nearby and offering to come get him now. -He feels like a burden and if he doesn?t go now he will be a bother to him tomorrow as well. ? Ps encouraged pt by reflecting the doctors plan to keep him another night for monitoring and strengthening. ? Pt agrees to respond to Joao friend/employer, mindfully placing his health as priority stating it will be tomorrow, then expressing gratitude for his support. ? Pt feels relieved by this, in action practicing self-advocacy with honesty and self-care. ? Ps and Pt walk around the gamble of 2nd floor, pt does well pacing himself slowly with only one time stopping. Ps follow up at bedside. Ps makes nurse aware of razor and shave gel for pt to use when or if he is up to it in order to feel better. Pt is resting in bed, says he was not able to eat much dinner but likes the boost drinks and yogurts. Ps and pt discuss focus for tomorrow to be a plan of action for his discharge for his sobriety through [facility], follow up appointments, and housing whether at home or with is friend Joao who is also his emplyer.
[2024-08-08] MEDS: NICOTINE 21MG/24HR PATCH 21 MG TD (09:51)
--- NOTE | 2024-08-08 10:22 | DIET.NUTRFU ---
Spoke to patient this AM, his appetite is improving and he is drinking the boost BID at 75-100%. Patient denies having BM since admit. Miralax was added on 08/06 daily and senekot in place since 08/04. He denies any discomfort, no pain or gas. Will review with provider.
[2024-08-08] MEDS: levoFLOXacin 750 MG TABLET PO (10:32)
[2024-08-08] MEDS: BISACODYL 5MG TABLET 10 MG PO (11:43)
--- NOTE | 2024-08-08 14:49 | PC.NURSE ---
Pt. given prune juice to help with a bowel movement.
[2024-08-08] MEDS: ONDANSETRON 4MG/2ML VIAL 4 MG IV (15:27)
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
[2024-08-08] MEDS: PRENATAL MULTIVITAMIN W/IRON 1 EACH PO (16:44)
--- NOTE | 2024-08-08 19:45 | PC.NURSE ---
pt left floor at this time
--- NOTE | 2024-08-11 11:00 | SW/DCPLANNER ---
Spoke with patient on the phone. Patient stated that he is at home and that the medicine he is on he hasnt been drinking. Patient stated that he is aware of his upcoming appointment. Patient stated that clinic brought his medicine to his bedside before his was discharged. Patient stated that he has no concerns or questions at this time. Susy Nunn
[2024-08-12 07:24] LABS: ALT (SGPT) P5P 11 IU/L (0-55); AST (SGOT) P5P 79 IU/L (0-40); Alpha 2-Macroglobulins, Qn 185 mg/dL (110-276); Apolipoprotein A-1 125 mg/dL (101-178); Bilirubin, Total 0.2 mg/dL (0.0-1.2); Cholesterol, Total 186 mg/dL (100-199); Fibrosis Score 0.25 (0.00-0.21); Fibrosis Stage F0-F1 (.); GGT 381 IU/L (0-65); Glucose 96 mg/dL (70-99); Haptoglobin 236 mg/dL (23-355); NASH Score 0.63 (0.00-0.25); Steatosis Score 0.52 (0.00-0.40); Triglycerides 101 mg/dL (0-149)
== END 2024-08-08 19:45 | disposition home or self-care (01) | DRG 896 ==
LOC: ER 04:58 → ICU 05:47 → 2ND 08-04 12:29
PROVIDERS: Internal Medicine Gastroenterology; Nurse Practitioner Family; Student in an Organized Health Care Education/Training Program; Admitting Provider Internal Medicine Adolescent Medicine; Emergency Provider Emergency Medicine; Visit Provider Internal Medicine Adolescent Medicine
DX: F10.939 Alcohol use, unspecified with withdrawal, unspecified (principal); E43 Unspecified severe protein-calorie malnutrition; E51.2 Wernicke's encephalopathy; J44.1 Chronic obstructive pulmonary disease with (acute) exacerbation; B37.0 Candidal stomatitis; F17.210 Nicotine dependence, cigarettes, uncomplicated; Y90.0 Blood alcohol level of less than 20 mg/100 ml; E87.6 Hypokalemia; E83.39 Other disorders of phosphorus metabolism; E86.0 Dehydration; F12.90 Cannabis use, unspecified, uncomplicated; F13.10 Sedative, hypnotic or anxiolytic abuse, uncomplicated; F45.8 Other somatoform disorders; K26.9 Duodenal ulcer, unspecified as acute or chronic, without hemorrhage or perforation; Z68.22 Body mass index [BMI] 22.0-22.9, adult; Z79.891 Long term (current) use of opiate analgesic; Z79.899 Other long term (current) drug therapy
CPT/HCPCS: 36415; 74177; 80053; 80307; 80320; 82150; 82306; 82607; 82746; 83690; 83735; 84100; 84439; 84443; 85025; 85610; 85730; 87636; 93005; 94640; 97110; 97116; 97163; 97166; 97530; 99253; 99291; J0574; J1956; J2060; J2405; J3360; J3411; J3475; J3480; J7120; J7620; Q9967

== ENCOUNTER 2024-08-14 13:15 | Outpatient (CLI) | payer MEDICARE, MEDICAID, SELFPAY | END 2024-08-14 23:59 | disposition home or self-care (01) | LOC: LAB.DROPOF 08-15 10:55 | PROVIDERS: PCP Family Medicine; Visit Provider Family Medicine | DX: M54.50 Low back pain, unspecified (principal) | CPT/HCPCS: 87086 ==

== ENCOUNTER 2024-10-08 20:49 | Inpatient (IN) | payer MEDICARE, MEDICAID, SELFPAY ==
--- NOTE | 2024-10-08 20:56 | ED_ITS ---
Discharge Plan Disposition Patient Disposition: Admitted Chief Complaint: Nausea/Vomiting/Diarrhea Prescriptions Prescriptions: No Action albuterol sulfate 90 mcg/actuation HFA aerosol inhaler 2 puff inhalation Q6HP PRN (Reason: shortness of breath or wheezing) Qty: 8.5 3RF fluticasone propion-salmeterol [Advair Diskus] 250-50 mcg/dose blister with device 1 inh inhalation BID 30 Days Qty: 60 0RF ipratropium-albuterol 0.5 mg-3 mg(2.5 mg base)/3 mL Solution For Nebulization 3 ml inhalation Q6HP PRN (Reason: shortness of breath or wheezing) 30 Days Qty: 180 0RF levothyroxine [Synthroid] 25 mcg Tablet 50 mcg PO DAILYDM 30 Days Qty: 60 0RF misoprostol 200 mcg Tablet 200 mcg PO BID 30 Days Qty: 60 0RF folic acid 1 mg Tablet 1 mg PO DAILY 30 Days Qty: 30 0RF gabapentin 100 mg Capsule 200 mg PO BID 30 Days Qty: 120 0RF polyethylene glycol 3350 17 gram/dose powder 17 g PO DAILY 30 Days Qty: 510 0RF Creon 36,000-114,000- 180,000 unit Capsule,Delayed Release(Dr/Ec) 2 cap PO AC 30 Days Qty: 180 0RF thiamine HCl (vitamin B1) 100 mg tablet 100 mg PO DAILY Qty: 30 0RF multivitamin Tablet 1 tab PO DAILY Qty: 30 0RF pantoprazole 40 mg tablet,delayed release (DR/EC) 40 mg PO BID 30 Days Qty: 60 0RF buprenorphine-naloxone 8-2 mg tablet, sublingual 2 tab sublingual DAILY 7 Days Qty: 14 0RF Clinical Impressions Clinical Impression: Flank pain, Hypokalemia, Hypomagnesemia, Duodenal ulcer, Alcohol withdrawal Print Language Print Language: Kiswahili Discharge ED Provider: Hernesto Canada [facility] Adult HPI <OLAYINKA Lainez - Last Filed: 10/08/24 22:08> General Chief complaint: Nausea/Vomiting/Diarrhea Stated complaint: vomiting, back pain,dark urine Time Seen by Provider: 10/08/24 20:56 History of Present Illness HPI narrative: Patient presents for evaluation of acute abdominal pain vomiting nausea and left flank pain. Patient states his symptoms began last night. He normally drinks a sleeve of fireball a day but has not had a drink in more than 24 hours. He recently [facility] for 3 weeks and got out of September 11. I do not have records at the time of my dictation but we are attempting to obtain. Patient states shortly thereafter he began drinking again. He is supposed to be on medications but is taking none. Patient states his abdominal pain is in the epigastrium and he does have a history of previous gastric ulcer. He denies however cardiac type chest pain shortness of breath fever chills hemoptysis hematochezia melena hematemesis hematuria. He notes that his urine is very dark. Related Data Previous Rx's ?Medication ?Instructions ?Recorded ipratropium 0.5 mg-albuterol 3 mg 3 ml inhalation Q6HP PRN shortness 04/15/24 (2.5 mg base)/3 mL nebulization of breath or wheezing 30 days #180 soln mL fluticasone 250 mcg-salmeterol 50 1 inh inhalation BID 30 days #60 ea 05/01/24 mcg/dose blistr powdr for inhalation (Advair Diskus) buprenorphine 8 mg-naloxone 2 mg 2 tab sublingual DAILY 7 days #14 08/08/24 sublingual tablet tabs folic acid 1 mg tablet 1 mg PO DAILY 30 days #30 tabs 08/08/24 gabapentin 100 mg capsule 200 mg (2 x 100 mg) PO BID 30 days 08/08/24 #120 caps levothyroxine 25 mcg tablet 50 mcg (2 x 25 mcg) PO DAILYDM 30 08/08/24 (Synthroid) days #60 tabs ptyjij-ulajcfrf-ifxgxzk 2 cap PO AC 30 days #180 caps 08/08/24 36,000-114,000-180,000 unit capsule,delay rel (Creon) misoprostol 200 mcg tablet 200 mcg PO BID 30 days #60 tabs 08/08/24 multivitamin 1 tab PO DAILY #30 tabs 08/08/24 pantoprazole 40 mg tablet,delayed 40 mg PO BID 30 days #60 tabs 08/08/24 release polyethylene glycol 3350 17 17 g PO DAILY 30 days #510 grams 08/08/24 gram/dose oral powder thiamine HCl (vitamin B1) 100 mg 100 mg PO DAILY #30 tabs 08/08/24 tablet albuterol sulfate 90 mcg/actuation 2 puff inhalation Q6HP PRN 08/14/24 aerosol inhaler shortness of breath or wheezing #8.5 grams Allergies Allergy/AdvReac Type Severity Reaction Status Date / Time aspirin (ASPIRIN) Allergy Unknown Nose Bleed Verified 08/14/24 12:51 cephalexin (From Keflex) Allergy Gastrointestinal Verified 08/14/24 12:51 Upset piperacillin (From Zosyn) Allergy Hives Verified 08/14/24 12:51 tazobactam (From Zosyn) Allergy Hives Verified 08/14/24 12:51 PFS <OLAYINKA Lainze - Last Filed: 10/08/24 22:08> [facility] Disclaimer: The information contained in this section may have been updated after the patient was seen, as this information can be updated by other users. Medical History Alcohol use disorder Gastrointestinal bleed Duodenal ulcer Necrotizing pneumonia Pneumonia Drug abuse and dependence Back pain Rib pain Shoulder pain Neck pain Acute UTI Back pain Ankle fracture Fracture of distal end of fibula Sinusitis Cellulitis Exposure to COVID-19 virus PTSD (post-traumatic stress disorder) Acute blood loss anemia Anemia Peptic ulcer disease with hemorrhage Chronic pain Anxiety Acute bronchitis Elbow pain, left Acute urinary tract infection Leukocytosis Acute appendicitis High risk medication use Tobacco abuse Asthma exacerbation Depression Anxiety Traumatic brain injury Surgical History History of foot surgery H/O lithotripsy History of appendectomy H/O right knee surgery H/O anterior cruciate ligament surgery Previous back surgery Family History Grandmother Cancer Diabetes Stroke Grandfather Cancer Mother Diabetes Hypertension Social History Smoking Status: Current every day smoker tobacco type: cigarettes packs per day: 1 alcohol intake: current alcohol intake frequency: a few times a week counseling provided: provider counseling substance use type: former substance user and prescription drug current occupational status: disabled Travel in the last 8 weeks: None household members: significant other housing: house current occupational exposures/hazards: No caffeine: No Have you lived/traveled outside [place] in past 30 days?: No Contact w/someone who lives/traveled outside US past 30 days?: No Exposure to someone with infectious disease in past 14 days?: No Do you have a fever (greater than 100.4 F or 38 C)?: No Have you tested positive for COVID-19: No Exposed to someone with COVID-19 in past 14 days?: No Do you have a sore throat?: No Do you have a cough?: No Do you have any weakness?: No Do you have any diarrhea?: No Are you experiencing any unusual bleeding?: No Do you have any muscle aches/pain?: No Do you have any abdominal pain?: No Are you experiencing loss of taste or smell?: No Other Medical History Have you received the Flu Vaccine for this season: No Have you received the Pneumonia Vaccine: Yes <OLAYINKA Lainez - Last Filed: 10/08/24 22:08> ROS Obtained: Yes Systems reviewed as appropriate & no additional complaints except as documented Physical Exam <OLAYINKA Lainez - Last Filed: 10/08/24 22:08> General General appearance: alert and in no apparent distress Respiratory Respiratory exam: Present normal lung sounds bilaterally Cardiovascular Cardiovascular exam: Present regular rate Neurological Exam Neurological exam: Present alert and oriented X3 Medical Decision Making <OLAYINKA Lainez - Last Filed: 10/08/24 22:08> Medical Records Medical records reviewed: Yes I reviewed the patient's medical records. Screening: Per USPSTF and CDC recommendations, given the prevalence of disease in our region, it is our hospital?s policy to screen for HIV and viral Hepatitis for all patients aged 18 and over and those with ongoing risk factors. Dejan Inquiry Pt receiving controlled substance: No Vital Signs: 10/08/24 21:05 10/08/24 21:31 10/08/24 22:09 Temperature 98.5 F Temperature Source Oral Pulse Rate 61 72 Pulse Rate [Left Radial] 73 Respiratory Rate 20 Blood Pressure 134/63 145/81 H Blood Pressure [Right Arm] 164/101 H Blood Pressure Mean 106 102 Blood Pressure Mean [Right Arm] 122 Blood Pressure Source [Right Arm] Automatic Cuff Blood Pressure Position [Right Arm] Sitting 02 Sat by Pulse Oximetry 98 98 99 Oxygen Delivery Method Room Air Room Air Room Air 10/08/24 22:30 Temperature Temperature Source Pulse Rate 70 Pulse Rate [Left Radial] Respiratory Rate Blood Pressure 127/81 Blood Pressure [Right Arm] Blood Pressure Mean 105 Blood Pressure Mean [Right Arm] Blood Pressure Source [Right Arm] Blood Pressure Position [Right Arm] 02 Sat by Pulse Oximetry 98 Oxygen Delivery Method Lab Data Lab results reviewed: Yes I reviewed the patient's lab results. Lab Results 10/08/24 21:25: WBC 3.3 L, RBC 4.24 L, Hgb 13.0 L, Hct 39.4 L, MCV 92.9, MCH 30.7, MCHC 33.0, RDW 16.5, Plt Count 184, MPV 9.1, Neut % (Auto) 50.9, Lymph % (Auto) 33.5, [place] % (Auto) 13.5 H, Eos % (Auto) 1.2, Baso % (Auto) 0.9, Neut # (Auto) 1.7 L, Lymph # (Auto) 1.1, Roosevelt # (Auto) 0.4, Eos # (Auto) 0.0, Baso # (Auto) 0.0, PT 10.8, INR 0.96, APTT 28.2, Sodium 138, Potassium 3.0 L, Chloride 102, Carbon Dioxide 30, Anion Gap 9.0, BUN 6 L, Creatinine 0.60 L, Estimated Creat Clear 134, Estimated GFR 143, Est GFR ( Amer) 173, Glucose 108 H, Calcium 8.6, Phosphorus 2.2 L, Magnesium 1.4 L 10/08/24 21:25: Magnesium 1.5 L, Total Bilirubin 1.0, Direct Bilirubin 0.2, Conjugated Bilirubin 0.0, Indirect Bilirubin 0.8, Unconjugated Bilirubin 0.8, A ST 81 H, ALT 13, Alkaline Phosphatase 189 H, NT-Pro-B Natriuret Pep 208 H, Total Protein 7.5, Albumin 3.9, Globulin 3.6 H, Albumin/Globulin Ratio 1.1, Lipase 112, Urine Color Dark yellow, Urine Appearance Clear, Urine pH 7.0, Ur Specific Holiday 1.020, Urine Protein Trace, Urine Glucose (UA) Negative, Urine Ketones Negative, Urine Blood Negative, Urine Nitrate Negative, Urine Bilirubin Negative, Urine Urobilinogen 2.0, Ur Leukocyte Esterase Negative, Urine RBC 3-5, Urine WBC 3-5, Ur Squamous Epith Cells Occasional, Urine Bacteria 1+, Urine Mucus 2+, Urine Opiates Screen Negative, Urine Methadone Screen Negative, Ur Barbituates Screen Negative, Ur Phencyclidine Scrn Negative, Ur Amphetamines Screen Negative, U Benzodiazepines Scrn Positive H, Urine Cocaine Screen Negative, U Marijuana (THC) Screen Positive H, Plasma/Serum Alcohol < 10 10/08/24 21:25 10/08/24 21:25 Orders (Tests/Meds): ED MEDICATIONS Generic Name Dose Route Start Last Admin Trade Name Freq PRN Reason Stop Dose Admin Diazepam 10 mg 10/08/24 21:36 Diazepam 10mg/2ml Syringe IV 11/07/24 21:35 Q1HP PRN CIWA >16 Diazepam 5 mg 10/08/24 21:36 10/08/24 22:41 Diazepam 10mg/2ml Syringe IV 11/07/24 21:35 5 mg Q1HP PRN Administration CIWA Score 8-15 Diazepam 5 mg 10/08/24 21:36 Diazepam 5mg Tablet PO 11/07/24 21:35 Q6HP PRN CIWA 2-7 Multivitamins 10 ml/ Thiamine 1,015 mls @ 150 mls/hr 10/08/24 21:30 10/08/24 21:48 HCl 100 mg/ Magnesium Sulfate IV 10/09/24 04:15 150 mls/hr 2 gm/ Lactated Ringer's .Q6H46M JOSE Administration Potassium Chloride/Water 100 mls @ 50 mls/hr 10/08/24 21:58 10/08/24 22:38 Potassium Chloride 20meq/100ml Ivpb IV 10/09/24 03:57 50 mls/hr Q2H JOSE Administration Sodium Chloride 10 ml 10/08/24 21:31 Sodium Chloride 0.9% 10ml Vial IV 11/07/24 21:30 NEEDED PRN dilute protonix Discontinued Medications Generic Name Dose Route Start Last Admin Trade Name Freq PRN Reason Stop Dose Admin Sodium Chloride 1,000 mls @ 999 mls/hr 10/08/24 21:29 10/08/24 21:36 Sod Chlor 0.9% 1000ml Bag IV 10/08/24 22:29 999 mls/hr .Q1H1M ONE Administration Magnesium Sulfate 2 gm in 50 mls @ 50 mls/hr 10/08/24 21:57 10/08/24 22:38 Magnesium Sulfate 2gm/50ml Premix IV 10/08/24 22:56 50 mls/hr ONCE ONE Administration Iopamidol 75 ml 10/08/24 22:00 10/08/24 22:01 Iopamidol-370 (76%);100ml Bottle IV 10/08/24 22:01 75 ml ONCE ONE Administration Ondansetron HCl 4 mg 10/08/24 21:29 10/08/24 21:36 Ondansetron 4mg/2ml Vial IV 10/08/24 21:30 4 mg ONCE ONE Administration Pantoprazole Sodium 40 mg 10/08/24 21:31 10/08/24 21:54 Pantoprazole 40mg Vial IV 10/08/24 21:32 40 mg ONCE ONE Administration Sodium Chloride 10 ml 10/08/24 22:00 10/08/24 22:01 Sodium Chloride 0.9% 10ml Syr (Rad Only) IV 10/08/24 22:01 10 ml ONCE ONE Administration ORDERS Category Date Time Status CT abdomen pelvis w con Stat Cat Scan 10/08/24 21:29 Completed Activated Partial Thrombo Time Routine Lab 10/08/24 21:25 Completed BNP [NT Pro Brain Natriuretic Pep.] Stat Lab 10/08/24 21:25 Results Bilirubin Group (Ind,Dir,Tot) Stat Lab 10/08/24 21:25 Results Blood alcohol [Ethyl Alcohol] Stat Lab 10/08/24 21:25 Completed CBC w/Auto Diff [Complete Blood Count Auto Diff] Stat Lab 10/08/24 21:25 Completed CMP [Comprehensive Metabolic Panel] Stat Lab 10/08/24 21:25 Results Drug Screen,Urine Stat Lab 10/08/24 21:25 Completed INR [Prothrombin Time INR] Stat Lab 10/08/24 21:25 Completed Lactic Acid Stat Lab 10/08/24 21:29 Ordered Lipase Stat Lab 10/08/24 21:25 Results Magnesium Stat Lab 10/08/24 21:25 Completed Magnesium Stat Lab 10/08/24 21:25 Results Phosphorous Routine Lab 10/08/24 21:25 Completed Procalcitonin Stat Lab 10/08/24 21:25 Results UA [Urinalysis and Microscopic] Stat Lab 10/08/24 21:25 Completed ECG Request Routine Y 10/08/24 21:36 Ordered Medical Decision Narrative: In summary patient is a 48-year-old male who presents to the emergency department for evaluation of gastric abdominal pain left flank pain nausea vomiting. Patient is initially with a blood pressure of 164/101 heart rate 73 respiratory rate is 20 satting at 98% on room air upon arrival, afebrile at 98.5. Physical exam is remarkable for a 48-year-old much older than appearing stated age gentleman who is obviously tremulous. He is awake alert and oriented person place and circumstance [place] Coma Score is 15. Breath sounds clear and equal bilaterally to the bases with adventitious sounds. Patient has exquisite pain in the epigastrium but no rebound or guarding or rigidity. Bowel sounds normal active. Patient has CVA tenderness to percussion.. Differential diagnosis includes gastritis versus pancreatitis versus ulcer versus kidney stone versus liver failure versus alcohol withdrawal versus electrolyte abnormality etc. Initial workup will be conducted with hematologic labs urinalysis urine drug screen and CT scan abdomen pelvis. Initial interventions include crystalloid bolus alcohol withdrawal protocol rally pack Zofran. Initial workup ordered and pending at the time of handoff to Dr. Canada at 2200 hrs. <Hernesto Canada MD - Last Filed: 10/08/24 23:13> Vital Signs: 10/08/24 21:05 10/08/24 21:31 10/08/24 22:09 Temperature 98.5 F Temperature Source Oral Pulse Rate 61 72 Pulse Rate [Left Radial] 73 Respiratory Rate 20 Blood Pressure 134/63 145/81 H Blood Pressure [Right Arm] 164/101 H Blood Pressure Mean 106 102 Blood Pressure Mean [Right Arm] 122 Blood Pressure Source [Right Arm] Automatic Cuff Blood Pressure Position [Right Arm] Sitting 02 Sat by Pulse Oximetry 98 98 99 Oxygen Delivery Method Room Air Room Air Room Air 10/08/24 22:30 Temperature Temperature Source Pulse Rate 70 Pulse Rate [Left Radial] Respiratory Rate Blood Pressure 127/81 Blood Pressure [Right Arm] Blood Pressure Mean 105 Blood Pressure Mean [Right Arm] Blood Pressure Source [Right Arm] Blood Pressure Position [Right Arm] 02 Sat by Pulse Oximetry 98 Oxygen Delivery Method Lab Data Lab Results 10/08/24 21:25: WBC 3.3 L, RBC 4.24 L, Hgb 13.0 L, Hct 39.4 L, MCV 92.9, MCH 30.7, MCHC 33.0, RDW 16.5, Plt Count 184, MPV 9.1, Neut % (Auto) 50.9, Lymph % (Auto) 33.5, Roosevelt % (Auto) 13.5 H, Eos % (Auto) 1.2, Baso % (Auto) 0.9, Neut # (Auto) 1.7 L, Lymph # (Auto) 1.1, Roosevelt # (Auto) 0.4, Eos # (Auto) 0.0, Baso # (Auto) 0.0, PT 10.8, INR 0.96, APTT 28.2, Sodium 138, Potassium 3.0 L, Chloride 102, Carbon Dioxide 30, Anion Gap 9.0, BUN 6 L, Creatinine 0.60 L, Estimated Creat Clear 134, Estimated GFR 143, Est GFR ( Amer) 173, Glucose 108 H, Calcium 8.6, Phosphorus 2.2 L, Magnesium 1.4 L 10/08/24 21:25: Magnesium 1.5 L, Total Bilirubin 1.0, Direct Bilirubin 0.2, Conjugated Bilirubin 0.0, Indirect Bilirubin 0.8, Unconjugated Bilirubin 0.8, A ST 81 H, ALT 13, Alkaline Phosphatase 189 H, NT-Pro-B Natriuret Pep 208 H, Total Protein 7.5, Albumin 3.9, Globulin 3.6 H, Albumin/Globulin Ratio 1.1, Lipase 112, Urine Color Dark yellow, Urine Appearance Clear, Urine pH 7.0, Ur Specific Holiday 1.020, Urine Protein Trace, Urine Glucose (UA) Negative, Urine Ketones Negative, Urine Blood Negative, Urine Nitrate Negative, Urine Bilirubin Negative, Urine Urobilinogen 2.0, Ur Leukocyte Esterase Negative, Urine RBC 3-5, Urine WBC 3-5, Ur Squamous Epith Cells Occasional, Urine Bacteria 1+, Urine Mucus 2+, Urine Opiates Screen Negative, Urine Methadone Screen Negative, Ur Barbituates Screen Negative, Ur Phencyclidine Scrn Negative, Ur Amphetamines Screen Negative, U Benzodiazepines Scrn Positive H, Urine Cocaine Screen Negative, U Marijuana (THC) Screen Positive H, Plasma/Serum Alcohol < 10 Orders (Tests/Meds): ED MEDICATIONS Generic Name Dose Route Start Last Admin Trade Name Freq PRN Reason Stop Dose Admin Diazepam 10 mg 10/08/24 21:36 Diazepam 10mg/2ml Syringe IV 11/07/24 21:35 Q1HP PRN CIWA >16 Diazepam 5 mg 10/08/24 21:36 10/08/24 22:41 Diazepam 10mg/2ml Syringe IV 11/07/24 21:35 5 mg Q1HP PRN Administration CIWA Score 8-15 Diazepam 5 mg 10/08/24 21:36 Diazepam 5mg Tablet PO 11/07/24 21:35 Q6HP PRN CIWA 2-7 Multivitamins 10 ml/ Thiamine 1,015 mls @ 150 mls/hr 10/08/24 21:30 10/08/24 21:48 HCl 100 mg/ Magnesium Sulfate IV 10/09/24 04:15 150 mls/hr 2 gm/ Lactated Ringer's .Q6H46M JOSE Administration Potassium Chloride/Water 100 mls @ 50 mls/hr 10/08/24 21:58 10/08/24 22:38 Potassium Chloride 20meq/100ml Ivpb IV 10/09/24 03:57 50 mls/hr Q2H JOSE Administration Sodium Chloride 10 ml 10/08/24 21:31 Sodium Chloride 0.9% 10ml Vial IV 11/07/24 21:30 NEEDED PRN dilute protonix Discontinued Medications Generic Name Dose Route Start Last Admin Trade Name Freq PRN Reason Stop Dose Admin Sodium Chloride 1,000 mls @ 999 mls/hr 10/08/24 21:29 10/08/24 21:36 Sod Chlor 0.9% 1000ml Bag IV 10/08/24 22:29 999 mls/hr .Q1H1M ONE Administration Magnesium Sulfate 2 gm in 50 mls @ 50 mls/hr 10/08/24 21:57 10/08/24 22:38 Magnesium Sulfate 2gm/50ml Premix IV 10/08/24 22:56 50 mls/hr ONCE ONE Administration Iopamidol 75 ml 10/08/24 22:00 10/08/24 22:01 Iopamidol-370 (76%);100ml Bottle IV 10/08/24 22:01 75 ml ONCE ONE Administration Ondansetron HCl 4 mg 10/08/24 21:29 10/08/24 21:36 Ondansetron 4mg/2ml Vial IV 10/08/24 21:30 4 mg ONCE ONE Administration Pantoprazole Sodium 40 mg 10/08/24 21:31 10/08/24 21:54 Pantoprazole 40mg Vial IV 10/08/24 21:32 40 mg ONCE ONE Administration Sodium Chloride 10 ml 10/08/24 22:00 10/08/24 22:01 Sodium Chloride 0.9% 10ml Syr (Rad Only) IV 10/08/24 22:01 10 ml ONCE ONE Administration ORDERS Category Date Time Status CT abdomen pelvis w con Stat Cat Scan 10/08/24 21:29 Completed Activated Partial Thrombo Time Routine Lab 10/08/24 21:25 Completed BNP [NT Pro Brain Natriuretic Pep.] Stat Lab 10/08/24 21:25 Results Bilirubin Group (Ind,Dir,Tot) Stat Lab 10/08/24 21:25 Results Blood alcohol [Ethyl Alcohol] Stat Lab 10/08/24 21:25 Completed CBC w/Auto Diff [Complete Blood Count Auto Diff] Stat Lab 10/08/24 21:25 Completed CMP [Comprehensive Metabolic Panel] Stat Lab 10/08/24 21:25 Results Drug Screen,Urine Stat Lab 10/08/24 21:25 Completed INR [Prothrombin Time INR] Stat Lab 10/08/24 21:25 Completed Lactic Acid Stat Lab 10/08/24 21:29 Ordered Lipase Stat Lab 10/08/24 21:25 Results Magnesium Stat Lab 10/08/24 21:25 Completed Magnesium Stat Lab 10/08/24 21:25 Results Phosphorous Routine Lab 10/08/24 21:25 Completed Procalcitonin Stat Lab 10/08/24 21:25 Results UA [Urinalysis and Microscopic] Stat Lab 10/08/24 21:25 Completed ECG Request Routine Y 10/08/24 21:36 Ordered Medical Decision Narrative: In summary patient is a 48-year-old male who presents to the emergency department for evaluation of gastric abdominal pain left flank pain nausea vomiting. Patient is initially with a blood pressure of 164/101 heart rate 73 respiratory rate is 20 satting at 98% on room air upon arrival, afebrile at 98.5. Physical exam is remarkable for a 48-year-old much older than appearing stated age gentleman who is obviously tremulous. He is awake alert and oriented person place and circumstance [place] Coma Score is 15. Breath sounds clear and equal bilaterally to the bases with adventitious sounds. Patient has exquisite pain in the epigastrium but no rebound or guarding or rigidity. Bowel sounds normal active. Patient has CVA tenderness to percussion.. Differential diagnosis includes gastritis versus pancreatitis versus ulcer versus kidney stone versus liver failure versus alcohol withdrawal versus electrolyte abnormality etc. Initial workup will be conducted with hematologic labs urinalysis urine drug screen and CT scan abdomen pelvis. Initial interventions include crystalloid bolus alcohol withdrawal protocol saul Sultana. Initial workup ordered and pending at the time of handoff to Dr. Canada at 2200 hrs. Reassessment [id number] Canada - CT scan performed I personally interpreted which shows evidence of nonspecific inflammation the right upper quadrant radiology read this as possible pancreatitis versus duodenal ulcer. With patient's recent hospitalization at [facility] [place] he did state that he had a bleeding ulcer which is the primary reason he was in the hospital for so long. With this and his localized tenderness there he probably does have recurrence or persistence of a ulcer in that area. No evidence of any bleeding he has no melena or hematemesis. No significant elevation in BUN/creatinine ratio H&H is essentially normal. However likely will need a GI/surgical consult. More concerning the patient's has a chronic history of significant drinking he has already significant CIWA score greater than 10 at the moment. CIWA scoring and diazepam have been administered in the ED. Will need hospitalization both from an abdominal pain possible ulcer and alcohol withdrawal standpoint. Will place a consult order for peer support. I spoke with hospital medicine who agreed to admit the patient for further evaluation management. Critical Care <OLAYINKA Lainez - Last Filed: 10/08/24 22:08> Critical Care Time Critical Care Time: Yes Attestation: On 10/08/24, the high probability of a clinically significant, sudden or life threatening deterioration of the following system(s) required my full and direct attention, intervention and personal management. The time I documented below is in addition to time spent performing reported procedures but includes the following listed in this critical care notation. Total Time Total Critical Care Time: 35
--- OUTSIDE RECORDS SUMMARY | 2024-10-08 21:03 | XMS_ITS ---
Author Organization Unknown TREATMENT PLAN [facility] Start Date Provider Encounter for Check-up [id number] [facility]
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
[2024-10-08 21:05] VITALS: BP 164/101; PULSE 73; RESP 20; TEMP 36.9; O2SAT 98; BMI 21.2
--- NOTE | 2024-10-08 21:29 | CT_ITS ---
PROCEDURE INFORMATION: Exam: CT Abdomen And Pelvis With Contrast Exam date and time: 10/08/2024 9:59 PM Age: 48 years old Clinical indication: Abdominal tenderness and nausea; Additional info: Abdominal pain, alcohol abuse TECHNIQUE: Imaging protocol: Computed tomography of the abdomen and pelvis with contrast. Radiation optimization: All CT scans at this facility use at least one of these dose optimization techniques: automated exposure control; mA and/or kV adjustment per patient size (includes targeted exams where dose is matched to clinical indication); or iterative reconstruction. Contrast material: ISOVUE; Contrast volume: 75 ml; Contrast route: IV; COMPARISON: CT ABDOMEN PELVIS W CON 08/02/2024 4:38 AM FINDINGS: Lungs: The visualized lung bases demonstrate no focal infiltrates or pleural effusions. Liver: Moderate diffuse hepatic steatosis is identified. Gallbladder and biliary ducts: The gallbladder is normal. There is no evidence of biliary ductal dilation. Pancreas: See stomach and bowel section Spleen: The spleen is normal. Adrenal glands: Normal. No mass. Kidneys and ureters: There are a few small bilateral nonobstructing intra calyceal kidney stones. Stomach and bowel: Clip within the linear metallic type device within the 1st portion of the duodenal could be a polypectomy clip. Unchanged. Focal inflammatory change/edema abutting the 2nd portion of the duodenal without significant wall thickening. This edema also abuts the head of the pancreas lateral aspect. See series 3 image 43 through image 51. Appendix: No evidence of appendicitis. Intraperitoneal space: Unremarkable. No free air. No significant fluid collection. Vasculature: Unremarkable. No abdominal aortic aneurysm. Lymph nodes: Unremarkable. No pathologically enlarged lymph nodes are identified. Urinary bladder: The bladder appears within normal limits. No wall thickening. Reproductive: The prostate gland appears normal. Bones/joints: Unremarkable. No acute fracture. Soft tissues: Unremarkable. IMPRESSION: 1. Focal inflammatory change/edema abutting the 2nd portion of the duodenal without significant wall thickening. This edema also abuts the head of the pancreas lateral aspect. See series 3 image 43 through image 51. Differential includes acute groove pancreatitis versus duodenitis or inflamed duodenal ulcer. 2. There are a multiple small bilateral nonobstructing intra calyceal kidney stones. These range in size from 1 mm up to the largest measuring 1 cm.
[2024-10-08 21:31] VITALS: BP 134/63; PULSE 61; O2SAT 98
[2024-10-08 21:35] LABS: Basophils % 0.9 % (0.1-2.0); Eosinophils % 1.2 % (0.1-12.0); Hematocrit 39.4 % (42.0-52.0); Lymphocytes # 1.1 K/mm3 (0.7-4.5); Lymphocytes % 33.5 % (10-50); Mean Corpuscular Hemoglobin 30.7 pg (27.0-31.2); Mean Corpuscular Volume 92.9 fl (80-94); Mean Platelet Volume 9.1 fl (7.4-10.4); Microscopic, Urine URINE MICROSCOPIC (MICROSCOPIC); Monocytes # 0.4 K/mm3 (0.1-1.0); Monocytes % 13.5 % (1.7-9.3); Neutrophils # 1.7 K/mm3 (1.8-7.8); Neutrophils % 50.9 % (37.0-80.0); Nucleated Red Blood Cells # 0 10^3/uL; Nucleated Red Blood Cells % 0 %; Platelet Count 184 K/mm3 (142-424); Red Blood Count 4.24 M/mm3 (4.60-6.20); Red Cell Distribution Width 16.5 % (11.5-17.5); Red Cell Distribution Width-SD 56.1 fL; White Blood Count 3.3 K/mm3 (4.8-10.8)
[2024-10-08] MEDS: ONDANSETRON 4MG/2ML VIAL 4 MG IV (21:36)
[2024-10-08] MEDS: 0.9 % SODIUM CHLORIDE 1000ML 1,000 ML 999 ML IV (21:36)
[2024-10-08 21:44] LABS: Albumin Level 3.9 g/dl (3.5-5.0); Chloride 102 mmol/L (98-107); INR 0.96 (0.9-1.1); Prothrombin Time 10.8 seconds (10.1-12.5); Sodium 138 mmol/L (136-145)
[2024-10-08 21:47] LABS: Alanine Aminotransferase 13 U/L (12-78); Albumin/Globulin Ratio 1.1 (1.1-1.8); Alkaline Phosphatase 189 U/L (38-126); Aspartate Amino Transferase 81 U/L (17-59); Bilirubin,Direct 0.2 mg/dl (0.0-0.4); Bilirubin,Indirect 0.8 mg/dL (0.0-0.9); Bilirubin,Unconjugated 0.8 mg/dL (0.0-1.1); Blood Urea Nitrogen 6 mg/dl (9-20); Calcium 8.6 mg/dl (8.4-10.2); Carbon Dioxide 30 mmol/L (22.0-30.0); Creatinine Clearance Estimated 134 mL/min (50-200); Estimated Glomerular Filt Rate 143 ml/min (>60); GFR (African American) 173 ML/MIN (>60); Globulin 3.6 g/dL (1.3-3.2); Glucose 108 mg/dl (74-100); Lipase 112 U/L (23-300); Total Protein,Serum 7.5 g/dl (6.3-8.2)
[2024-10-08 21:48] LABS: Magnesium 1.4 mg/dl (1.6-2.3)
[2024-10-08] MEDS: MVI, ADULT NO.1 WITH VIT K 10 ML, THIAMINE HCL 100 MG, MAGNESIUM SULFATE 2 GM in LACTAT... 150 ML IV (21:48)
[2024-10-08 21:51] LABS: Activated Partial Thrombo Time 28.2 seconds (22.8-30.6)
--- NOTE | 2024-10-08 21:52 | PC.NURSE ---
K 3.0 called from lab, Dr Canada notified.
[2024-10-08] MEDS: PANTOPRAZOLE 40MG VIAL 40 MG IV (21:54)
[2024-10-08 21:56] LABS: NT Pro Brain Natriuretic Pep. 208 pg/mL (0-125)
[2024-10-08] MEDS: IOPAMIDOL-370 (76%);100ML BOTTLE 75 ML IV (22:01)
[2024-10-08] MEDS: SODIUM CHLORIDE 0.9% 10ML SYR (RAD ONLY) 10 ML IV (22:01)
[2024-10-08 22:09] VITALS: BP 145/81; PULSE 72; O2SAT 99
[2024-10-08 22:30] VITALS: BP 127/81; PULSE 70; O2SAT 98
[2024-10-08 22:30] LABS: Magnesium 1.5 mg/dl (1.6-2.3)
[2024-10-08 22:32] LABS: Appearance,Urine CLEAR (Clear); Bilirubin,Urine Negative (Negative); Blood, Urine Negative (Negative); Ethyl Alcohol < 10 mg/dl (0-10); Glucose,Urine (UA) Negative (Negative); Ketones,Urine Negative (Negative); Leukocyte Esterase,Urine Negative (Negative); Nitrate,Urine Negative (Negative); Protein,Urine TRACE (Negative)
[2024-10-08 22:34] LABS: Phosphorous 2.2 mg/dl (2.5-4.5)
[2024-10-08] MEDS: KCl 20mEq/100ml 100 ML 50 MEQ IV (22:38)
[2024-10-08] MEDS: MAGNESIUM SULFATE IN WATER 2 GM/50 ML PIGGYBACK IV (22:38)
[2024-10-08] MEDS: diazePAM 10MG/2ML SYRINGE 5 MG IV (22:41)
[2024-10-08 22:45] LABS: Amphetamine/Metha Screen,Urine Negative ng/ml (<1000); Benzodiazepines Screen,Urine Positive ng/ml (<200)
[2024-10-08 22:46] LABS: Barbiturates Screen,Urine Negative ng/ml (<200); Methadone Screen,Urine Negative ng/ml (<300)
[2024-10-08 22:47] LABS: Cannabinoid Screen,Urine Positive ng/ml (<50)
[2024-10-08 22:48] LABS: Cocaine Screen,Urine Negative ng/ml (<300); Opiate Screen,Urine Negative ng/ml (<300)
[2024-10-08 22:49] LABS: Phencyclidine Screen,Urine Negative ng/ml (<25)
--- NOTE | 2024-10-08 22:53 | PC.NURSE ---
Spoke with [facility] for medical records on this pt. They should be faxing it over in just a few minutes
[2024-10-08 23:00] LABS: Color,Urine Dark Yellow (Yellow)
[2024-10-08 23:01] LABS: Bacteria,Urine 1+ /lpf; Mucus,Urine 2+ /lpf; Squamous Epithelial Cell,Urine Occasional #/hpf (0-5)
[2024-10-08 23:20] VITALS: PULSE 70; O2SAT 100
[2024-10-08 23:23] LABS: Lactic Acid 0.9 mmol/L (0.7-2.1)
[2024-10-08 23:36] LABS: Procalcitonin 0.066 ng/mL (0.0-2.0)
[2024-10-09] VITALS (10 sets, daily range): BP systolic 120–172; BP diastolic 74–93; PULSE 50–84; RESP 16–23; TEMP 36.7–37.1; O2SAT 95–100; BMI 21.2
--- NOTE | 2024-10-09 01:15 | PC.NURSE ---
Patient arrived to floor via wheelchair from ED at 01:00.
[2024-10-09] MEDS: KCl 20mEq/100ml 100 ML 50 MEQ IV ×2 (01:27→03:33)
[2024-10-09] MEDS: diazePAM 10MG/2ML SYRINGE 5 MG IV ×6 (01:28→23:53)
[2024-10-09] MEDS: ONDANSETRON 4MG/2ML VIAL 4 MG IV ×3 (02:48→18:34)
[2024-10-09] MEDS: MORPHINE 2MG/ML SYRINGE 2 MG IV (02:48)
--- NOTE | 2024-10-09 05:47 | P.HP_ITS ---
<Statement entered by Michael Bernstein MD - 10/09/24 18:10> Rounded on patient after nurse practitioner. Personally examined and interviewed patient. Agree with exam findings and care plan as documented. Given duodenal edema on CT, will have surgery evaluate in the morning. Continue NPO. Initiate sucralfate in addition to pantoprazole History of Present Illness *Admission Date: 10/08/24 *Reason for visit:: Abdominal pain *History of present illness: A 48-year-old male with a history of alcoholism, opioid dependence on buprenorphine/naloxone (Suboxone), major depressive disorder, post-traumatic stress disorder (PTSD), Wernicke?s encephalopathy, generalized anxiety disorder, duodenal ulcers, esophagitis, and gastritis presents to the emergency department for evaluation of acute epigastric abdominal pain, left flank pain, nausea, vomiting, and reported episodes of hematemesis (bright red blood) and melena (dark, tarry stools). He states symptoms began last night, noting dark urine but denying cardiac chest pain, shortness of breath, fever, chills, hemoptysis, hematochezia, or hematuria. He typically consumes a sleeve of Fireball daily but has been abstinent for over 24 hours. He was hospitalized at [facility] for 3 weeks, discharged September 11, 2024, for a bleeding duodenal ulcer, and resumed drinking shortly after. He reports not taking prescribed medications. The history was obtained through interactive discussion with the patient, who is deemed reliable, though chart review confirms prior bleeding ulcer. On examination, the patient appears older than stated age, tremulous, with blood pressure 164/101, heart rate 73, respiratory rate 20, oxygen saturation 98% on room air, and afebrile (98.5). Physical exam reveals an awake, alert, oriented patient (Walls Coma Scale 15), with clear bilateral breath sounds, exquisite epigastric tenderness without rebound, guarding, or rigidity, normal active bowel sounds, and left costovertebral angle (CVA) tenderness to percussion. Diagnostic workup includes labs, urinalysis, urine drug screen, and CT abdomen/pelvis. Labs show leukopenia (WBC 3.3), mild anemia (hemoglobin 13.0, hematocrit 39.4), hypokalemia (potassium 3.0), hypomagnesemia (magnesium 1.4?1.5), normal creatinine (0.6), GFR (143), elevated glucose (108), elevated AST (81), elevated alkaline phosphatase (189), normal lipase (112), elevated NT- proBNP (208), and normal PT/INR (0.96). Urinalysis shows 3?5 WBCs, 3?5 RBCs, 1+ bacteria, trace protein, and 2+ urobilinogen, with positive benzodiazepines and marijuana on drug screen, negative for alcohol (plasma <10). CT abdomen/pelvis shows focal inflammatory change/edema abutting the second portion of the duodenum and pancreatic head, suggesting acute groove pancreatitis, duodenitis, or inflamed duodenal ulcer, and multiple small bilateral nonobstructing renal stones (1 mm to 1 cm). Treatments implemented in the emergency department include a crystalloid fluid bolus (volume not specified), alcohol withdrawal protocol with diazepam (dose not specified, CIWA score >10), a rally pack (assumed thiamine, folate, multivitamin), and ondansetron (Zofran, dose not specified).Patient admission for suspected ulcer recurrence/persistence and alcohol withdrawal, with a peer support consult ordered. GI/surgical consultation is planned. [facility] Disclaimer: The information contained in this section may have been updated after the patient was seen, as this information can be updated by other users. Medical History Alcohol use disorder Gastrointestinal bleed Duodenal ulcer Necrotizing pneumonia Pneumonia Drug abuse and dependence Back pain Rib pain Shoulder pain Neck pain Acute UTI Back pain Ankle fracture Fracture of distal end of fibula Sinusitis Cellulitis Exposure to COVID-19 virus PTSD (post-traumatic stress disorder) Acute blood loss anemia Anemia Peptic ulcer disease with hemorrhage Chronic pain Anxiety Acute bronchitis Elbow pain, left Acute urinary tract infection Leukocytosis Acute appendicitis High risk medication use Tobacco abuse Asthma exacerbation Depression Anxiety Traumatic brain injury Surgical History History of foot surgery H/O lithotripsy History of appendectomy H/O right knee surgery H/O anterior cruciate ligament surgery Previous back surgery Family History Grandmother Cancer Diabetes Stroke Grandfather Cancer Mother Diabetes Hypertension Social History Smoking Status: Current every day smoker tobacco type: cigarettes packs per day: 1 alcohol intake: current alcohol intake frequency: a few times a week counseling provided: provider counseling substance use type: former substance user and prescription drug current occupational status: disabled Travel in the last 8 weeks: None household members: significant other housing: house current occupational exposures/hazards: No caffeine: No Have you lived/traveled outside [place] in past 30 days?: No Contact w/someone who lives/traveled outside US past 30 days?: No Exposure to someone with infectious disease in past 14 days?: No Do you have a fever (greater than 100.4 F or 38 C)?: No Have you tested positive for COVID-19: No Exposed to someone with COVID-19 in past 14 days?: No Do you have a sore throat?: No Do you have a cough?: No Do you have any weakness?: No Do you have any diarrhea?: No Are you experiencing any unusual bleeding?: No Do you have any muscle aches/pain?: No Do you have any abdominal pain?: No Are you experiencing loss of taste or smell?: No Other Medical History Have you received the Flu Vaccine for this season: No Have you received the Pneumonia Vaccine: No Review of Systems Review of Systems Review of systems (narrative): 13 point review system negative except as listed in HPI Meds Home Medications and Allergies Home Medications ?Medication ?Instructions ?Recorded ?Confirmed ?Type ipratropium 0.5 mg-albuterol 3 mg 3 ml inhalation Q6HP PRN shortness 04/15/24 10/09/24 Rx (2.5 mg base)/3 mL nebulization of breath or wheezing 30 days #180 soln mL fluticasone 250 mcg-salmeterol 50 1 inh inhalation BID 30 days #60 ea 05/01/24 10/09/24 Rx mcg/dose blistr powdr for inhalation (Advair Diskus) buprenorphine 8 mg-naloxone 2 mg 2 tab sublingual DAILY 7 days #14 08/08/24 10/09/24 Rx sublingual tablet tabs folic acid 1 mg tablet 1 mg PO DAILY 30 days #30 tabs 08/08/24 10/09/24 Rx gabapentin 100 mg capsule 200 mg (2 x 100 mg) PO BID 30 days 08/08/24 10/09/24 Rx #120 caps levothyroxine 25 mcg tablet 50 mcg (2 x 25 mcg) PO DAILYDM 30 08/08/24 10/09/24 Rx (Synthroid) days #60 tabs [id number]-[id number] 2 cap PO AC 30 days #180 caps 08/08/24 10/09/24 Rx 36,000-114,000-180,000 unit capsule,delay rel (Creon) misoprostol 200 mcg tablet 200 mcg PO BID 30 days #60 tabs 08/08/24 10/09/24 Rx multivitamin 1 tab PO DAILY #30 tabs 08/08/24 10/09/24 Rx pantoprazole 40 mg tablet,delayed 40 mg PO BID 30 days #60 tabs 08/08/24 10/09/24 Rx release polyethylene glycol 3350 17 17 g PO DAILY 30 days #510 grams 08/08/24 10/09/24 Rx gram/dose oral powder thiamine HCl (vitamin B1) 100 mg 100 mg PO DAILY #30 tabs 08/08/24 10/09/24 Rx tablet albuterol sulfate 90 mcg/actuation 2 puff inhalation Q6HP PRN 08/14/24 10/09/24 Rx aerosol inhaler shortness of breath or wheezing #8.5 grams New Prescriptions to Start Prescriptions: Allergies Allergy/AdvReac Type Severity Reaction Status Date / Time aspirin (ASPIRIN) Allergy Unknown Nose Bleed Verified 08/14/24 12:51 cephalexin (From Keflex) Allergy Gastrointestinal Verified 08/14/24 12:51 Upset piperacillin (From Zosyn) Allergy Hives Verified 08/14/24 12:51 tazobactam (From Zosyn) Allergy Hives Verified 08/14/24 12:51 Exam Data for Last 24 hours Vital signs and Labs for Last 24 Hours: Temp Pulse Resp BP Pulse Ox O2 Del Method 98.5 F 111 H 17 127/66 93 L Room Air 10/09/24 04:00 10/09/24 04:00 10/09/24 04:00 10/09/24 04:00 10/09/24 04:00 10/09/24 04:00 Laboratory Results - last 24 hr 10/08/24 21:25: WBC 3.3 L, RBC 4.24 L, Hgb 13.0 L, Hct 39.4 L, MCV 92.9, MCH 30.7, MCHC 33.0, RDW 16.5, Plt Count 184, MPV 9.1, Neut % (Auto) 50.9, Lymph % (Auto) 33.5, [place] % (Auto) 13.5 H, Eos % (Auto) 1.2, Baso % (Auto) 0.9, Neut # (Auto) 1.7 L, Lymph # (Auto) 1.1, [place] # (Auto) 0.4, Eos # (Auto) 0.0, Baso # (Auto) 0.0, PT 10.8, INR 0.96, APTT 28.2, Sodium 138, Potassium 3.0 L, Chloride 102, Carbon Dioxide 30, Anion Gap 9.0, BUN 6 L, Creatinine 0.60 L, Estimated Creat Clear 134, Estimated GFR 143, Est GFR ( Amer) 173, Glucose 108 H, Calcium 8.6, Phosphorus 2.2 L, Magnesium 1.4 L 10/08/24 21:25: Magnesium 1.5 L, Total Bilirubin 1.0, Direct Bilirubin 0.2, Conjugated Bilirubin 0.0, Indirect Bilirubin 0.8, Unconjugated Bilirubin 0.8, AST 81 H, ALT 13, Alkaline Phosphatase 189 H, NT-Pro-B Natriuret Pep 208 H, Total Protein 7.5, Albumin 3.9, Globulin 3.6 H, Albumin/Globulin Ratio 1.1, Lipase 112, Procalcitonin 0.066, Urine Color Dark yellow, Urine Appearance Clear, Urine pH 7.0, Ur Specific [place] 1.020, Urine Protein Trace, Urine Glucose (UA) Negative, Urine Ketones Negative, Urine Blood Negative, Urine Nitrate Negative, Urine Bilirubin Negative, Urine Urobilinogen 2.0, Ur Leukocyte Esterase Negative, Urine RBC 3-5, Urine WBC 3-5, Ur Squamous Epith Cells Occasional, Urine Bacteria 1+, Urine Mucus 2+, Urine Opiates Screen Negative, Urine Methadone Screen Negative, Ur Barbituates Screen Negative, Ur Phencyclidine Scrn Negative, Ur Amphetamines Screen Negative, U Benzodiazepines Scrn Positive H, Urine Cocaine Screen Negative, U Marijuana (THC) Screen Positiv e H, Plasma/Serum Alcohol < 10 10/08/24 23:10: Lactate 0.9 I & O for Last 24 hours: Intake & Output 10/06/24 10/07/24 10/08/24 10/09/24 23:59 23:59 23:59 23:59 Intake Total 100 / 100 Output Total 0 / 0 Balance 100 / 100 Weight 63.503 kg 63.503 kg Constitutional Constitutional: mild distress, chronically ill appearing and disheveled *Routine HEENT Exam Head: Present normocephalic Eye: Present EOMI and PERRL ENT: Present mucous membranes moist *Routine Neck Exam Neck: Present supple; Absent lymphadenopathy *Routine Respiratory Exam Respiratory: Present CTA bilaterally *Routine Cardiovascular Exam Cardiovascular: Present RRR *Routine Abdominal Exam Abdominal: Present soft, normoactive bowel sounds and tenderness; Absent distended *Routine Rectal Exam Rectal:: deferred *Routine Genitalia Exam Genitalia:: deferred *Routine Extremities Exam Extremities: Absent cyanosis, clubbing or edema *Routine Skin Exam Skin: Present warm; Absent rash *Routine Neurological Exam Neurological: Present alert and oriented X3 Routine Psychiatric Exam Psychiatric: Present anxious Assessment and Plan *Assessment and plan (1) Alcohol withdrawal: Status: Acute Category: Medical Code(s): F10.939 - Alcohol use, unspecified with withdrawal, unspecified (2) Duodenal ulcer: Status: Acute Category: Medical Code(s): K26.9 - Duodenal ulcer, unspecified as acute or chronic, without hemorrhage or perforation (3) Hypomagnesemia: Status: Acute Category: Medical Code(s): E83.42 - Hypomagnesemia (4) Hypokalemia: Status: Acute Category: Medical Code(s): E87.6 - Hypokalemia (5) Flank pain: Status: Acute Category: Medical Code(s): R10.9 - Unspecified abdominal pain (6) PTSD (post-traumatic stress disorder): Status: Acute Category: Medical Code(s): F43.10 - Post-traumatic stress disorder, unspecified (7) Generalized anxiety disorder with panic attacks: Status: Acute Category: Medical Code(s): F41.1 - Generalized anxiety disorder; F41.0 - Panic disorder [episodic paroxysmal anxiety] (8) Major depress dis, severe: Status: Acute Category: Medical Code(s): F32.2 - Major depressive disorder, single episode, severe without psychotic features (9) Alcoholic fatty liver: Status: Acute Category: Medical Code(s): K70.0 - Alcoholic fatty liver Plan * Suspected Duodenal Ulcer Recurrence with Bleeding: Epigastric pain, hematemesis (bright red blood), melena, CT showing duodenal inflammatio n/edema, in a patient with prior bleeding duodenal ulcer, esophagitis, gastritis, and alcoholism, no significant BUN/creatinine elevation (BUN 6, creatinine 0.6), hemoglobin 13.0. * Administer pantoprazole 40 mg IV twice daily for ulcer bleeding prophylaxis and healing. * Keep NPO to rest GI tract; provide IV normal saline at 100 mL/hour to maintain hydration, monitoring for fluid overload (NT-proBNP 208). * GI is currently unavailable, will consult general surgery for esophagogastroduodenoscopy if warranted * Monitor for hematemesis, melena, or hemodynamic instability (BP <90 systolic, HR >100) every 2 hours; check hemoglobin every 6 hours (current 13.0). * Continue ondansetron 4 mg IV every 8 hours as needed for nausea/vomiting. * Admit to medical-surgical floor with telemetry for GI bleed monitoring. * Alcohol Withdrawal: CIWA score >10, tremulous, 24+ hours sober (plasma alcohol <10), with history of alcoholism and Wernicke?s encephalopathy, in a patient who left AMA from prior withdrawal treatment. * Continue CIWA protocol with diazepam (e.g., 5?10 mg IV every 1?2 hours PRN for CIWA >8), monitoring for sedation or respiratory depression every 2 hours. * Administer thiamine 500 mg IV three times daily for 3 days, then 100 mg daily, with folate 1 mg daily and multivitamin to prevent Wernicke?s progression. * Monitor for seizures, delirium, or worsening CIWA score every 2 hours; escalate to ICU if CIWA >20 or seizures occur. * Consult addiction medicine for inpatient withdrawal management and rehab referral; engage peer support as planned. * Monitor electrolytes (potassium 3.0, magnesium 1.4) every 6 hours to guide replacement (see below). * Educate patient on alcohol cessation and rehab benefits. * Alcoholism: Chronic alcoholism (daily Fireball sleeve), recent relapse post-3-week [facility] hospitalization, with duodenal ulcer, liver dysfunction (AST 81, ALP 189), and Wernicke?s history. * Continue thiamine and addiction medicine consult as above. * Monitor for signs of liver failure (jaundice, encephalopathy) every 8 hours; order ammonia if confusion develops. * Consult hepatology for outpatient liver function evaluation and cirrhosis risk assessment (bilirubin 1.0, INR 0.96). * Coordinate with social work for rehab placement and social support post- discharge. * Opioid Dependence on Suboxone: On buprenorphine/naloxone, not currently taking (per patient), with no withdrawal signs (urine opiate-negative, CIWA >10 from alcohol), but at risk for relapse. * Verify Suboxone dose (e.g., 8 mg/2 mg daily) and restart once withdrawal stabilized, coordinating with addiction medicine. * Monitor for opioid withdrawal symptoms * Consult addiction medicine for Suboxone reinitiation and outpatient opioid dependence management. * Educate patient on Suboxone adherence to prevent relapse. * Hypokalemia (Potassium 3.0): Mild hypokalemia, likely from vomiting, alcohol withdrawal, or poor intake, no EKG changes reported. * Administer potassium chloride 20 mEq oral twice daily; recheck potassium in 6 hours, targeting >3.5. * Monitor EKG for hypokalemia changes if potassium falls below 2.8; obtain stat EKG if symptoms (muscle cramps, weakness) arise. * Continue IV fluids to support electrolyte balance; recheck with morning labs. * Hypomagnesemia (Magnesium 1.4?1.5): Low magnesium, likely from alcoholism and poor intake, no seizures or arrhythmias noted. * Administer magnesium sulfate 2 g IV over 2 hours; recheck magnesium in 12 hours, targeting >1.8. * Monitor for muscle cramps, tremors, or EKG changes every 4 hours; repeat EKG if magnesium falls below 1.2. * Continue rally pack to support magnesium repletion. * Left Flank Pain with Renal Stones: Left CVA tenderness, CT showing multiple small bilateral nonobstructing renal stones (1 mm?1 cm), with dark urine (urobilinogen 2.0, no hematuria), likely contributing to pain. * Administer ketorolac 15 mg IV every 6 hours as needed for flank pain, safe with normal renal function but hold for confirmation or rule out duodenal bleeding * Monitor for worsening flank pain, hematuria, or fever every 4 hours; order renal ultrasound if obstruction suspected. * Consult urology for outpatient stone management (e.g., lithotripsy for 1 cm stone). * Encourage oral hydration (2 L/day if tolerated) to prevent stone progression. * Major Depressive Disorder, PTSD, Generalized Anxiety Disorder: History of psychiatric disorders, not currently on medications, tremulous but no acute psychiatric symptoms beyond alcohol withdrawal agitation. . * Monitor for mood changes, anxiety, or suicidal ideation every 8 hours; involve peer support for coping strategies. * Coordinate with social work for outpatient psychiatric follow-up and therapy. * Mild Anemia: Hemoglobin 13.0, hematocrit 39.4, likely chronic from alcoholism or ulcer-related, with subjectively reported hematemesis/melena but stable hemoglobin. * Recheck CBC in 12 hours to monitor for bleeding; * Monitor for hematemesis, melena, or pallor every 4 hours; escalate to ICU if hemoglobin drops below 7.0 or hemodynamic instability occurs. * Order iron studies and ferritin if anemia worsens to assess for deficiency vs. chronic disease. Additional Orders: * Admit to medical-surgical floor with telemetry for GI bleed and alcohol withdrawal monitoring. * Maintain continuous pulse oximetry; check vitals every 2 hours, including CIWA score. * Offer acetaminophen 650 mg oral every 6 hours as needed for mild pain; ketorolac as above for flank pain if bleeding ruled out. * Educate patient on alcohol cessation, medication adherence, and ulcer risks.
[2024-10-09] MEDS: FLUTICASONE/SALMETEROL 250/50MCG DISKUS 1 PUFF IH ×2 (06:34→18:19)
[2024-10-09] MEDS: LEVOTHYROXINE 25MCG (0.025MG) TAB 50 MCG PO (06:59)
[2024-10-09 07:43] LABS: Basophils % 1.3 % (0.1-2.0); Eosinophils # 0.1 K/mm3 (0.0-0.4); Eosinophils % 2.2 % (0.1-12.0); Hematocrit 35.7 % (42.0-52.0); Lymphocytes # 1.1 K/mm3 (0.7-4.5); Lymphocytes % 46.9 % (10-50); Mean Corpuscular HGB Conc 31.9 g/dL (31.8-35.4); Mean Corpuscular Hemoglobin 30.4 pg (27.0-31.2); Mean Corpuscular Volume 95.2 fl (80-94); Mean Platelet Volume 9.2 fl (7.4-10.4); Monocytes # 0.4 K/mm3 (0.1-1.0); Monocytes % 15.4 % (1.7-9.3); Neutrophils # 0.8 K/mm3 (1.8-7.8); Neutrophils % 33.8 % (37.0-80.0); Nucleated Red Blood Cells # 0 10^3/uL; Nucleated Red Blood Cells % 0 %; Platelet Count 146 K/mm3 (142-424); Red Blood Count 3.75 M/mm3 (4.60-6.20); Red Cell Distribution Width 16.1 % (11.5-17.5); Red Cell Distribution Width-SD 57.1 fL; White Blood Count 2.3 K/mm3 (4.8-10.8)
[2024-10-09 07:56] LABS: Magnesium 2.2 mg/dl (1.6-2.3); Phosphorous 2.3 mg/dl (2.5-4.5)
[2024-10-09 07:58] LABS: Hemoglobin 11.6 g/dL (14.1-18.0)
[2024-10-09 08:01] LABS: Activated Partial Thrombo Time 29.9 seconds (22.8-30.6); Prothrombin Time 11.2 seconds (10.1-12.5)
--- NOTE | 2024-10-09 08:03 | HMH.PHAINT1 ---
Pharmacy Intervention Comments: HOME MEDICATION LIST VERIFIED USING LIST FROM OUTPATIENT PHARMACY AND PREVIOUS DISCHARGE FROM THIS FACILITY.
[2024-10-09 08:17] LABS: Alanine Aminotransferase 9 U/L (12-78); Albumin Level 2.9 g/dl (3.5-5.0); Albumin/Globulin Ratio 0.9 (1.1-1.8); Alkaline Phosphatase 132 U/L (38-126); Amylase 91 U/L (30-110); Anion Gap 7.1 mEq/L (5-15); Aspartate Amino Transferase 59 U/L (17-59); Bilirubin,Total 0.9 mg/dl (0.2-1.3); Blood Urea Nitrogen 3 mg/dl (9-20); Calcium 7.6 mg/dl (8.4-10.2); Carbon Dioxide 29 mmol/L (22.0-30.0); Chloride 106 mmol/L (98-107); Creatinine Clearance Estimated 134 mL/min (50-200); Estimated Glomerular Filt Rate 143 ml/min (>60); GFR (African American) 173 ML/MIN (>60); Globulin 3.2 g/dL (1.3-3.2); Glucose 88 mg/dl (74-100); Lipase 93 U/L (23-300); Potassium 3.1 mmoL/L (3.5-5.1); Sodium 139 mmol/L (136-145); Total Protein,Serum 6.1 g/dl (6.3-8.2)
[2024-10-09] MEDS: MVI, ADULT NO.1 WITH VIT K 10 ML, THIAMINE HCL 100 MG, MAGNESIUM SULFATE 2 GM in LACTAT... 125 ML IV (08:31)
[2024-10-09] MEDS: FOLIC ACID 1MG TABLET 1 MG PO (08:31)
[2024-10-09] MEDS: BUPRENORPHINE/NALOXONE 8MG/2MG ODT 2 EACH SL (08:31)
[2024-10-09] MEDS: PANTOPRAZOLE 40MG VIAL 40 MG IV ×2 (08:31→21:11)
[2024-10-09] MEDS: SODIUM CHLORIDE 0.9% 10ML VIAL 10 ML IV (08:34)
[2024-10-09] MEDS: GABAPENTIN 100MG CAPSULE 200 MG PO ×2 (08:47→21:11)
[2024-10-09] MEDS: ALUMINUM/MAGNESIUM/SIMETHICONE 30ML UDC 30 ML PO (09:47)
[2024-10-09] MEDS: MORPHINE 4MG/ML SYRINGE 4 MG IV ×3 (10:14→21:11)
[2024-10-09] MEDS: LIPASE/PROTEASE/AMYLASE 1 EACH CAPSULE.DR 2 EACH PO ×2 (11:53→17:15)
[2024-10-09] MEDS: POTASSIUM CHLORIDE 20MEQ TAB 40 MEQ PO ×3 (11:56→21:11)
--- NOTE | 2024-10-09 13:40 | HMH.OTEV ---
OT Inpatient Evaluation Rehab OT IP Evaluation Start: 10/09/24 10:05 Freq: ONCE Status: Active Protocol: Document 10/09/24 13:35 [facility] (Rec: 10/09/24 13:39 [facility] [id number]) Rehab OT IP Assessment Subjective History Pt oriented x 3 on arrival. Pt agreeable to engage in therapy evaluation. Pt admitted on 10/08/24 due to abdominal pain and alcohol withdrawal. History and physical: A 48-year-old male with a history of alcoholism, opioid dependence on buprenorphine/ naloxone (Suboxone), major depressive disorder, post- traumatic stress disorder ( PTSD), Wernicke?s encephalopathy, generalized anxiety disorder, duodenal ulcers, esophagitis, and gastritis presents to the emergency department for evaluation of acute epigastric abdominal pain, left flank pain, nausea, vomiting, and reported episodes of hematemesis (bright red blood) and melena (dark, tarry stools). He states symptoms began last night, noting dark urine but denying cardiac chest pain, shortness of breath, fever, chills, hemoptysis, hematochezia, or hematuria. He typically consumes a sleeve of Fireball daily but has been abstinent for over 24 hours. He was hospitalized at [facility] for 3 weeks, discharged September 11, 2024, for a bleeding duodenal ulcer, and resumed drinking shortly after. He reports not taking prescribed medications. The history was obtained through interactive discussion with the patient, who is deemed reliable, though chart review confirms prior bleeding ulcer. Subjective My body hurts all over. Prior to being in the hospital , pt lived in a single wide trailer with 3 steps to enter. Pt claims normally he is independent with all ADLs and IADLs. He does use a cane intermittently during functional transfers. Pt also still drives. Objective Patient Orientation Person,Place,Birthday Right Upper Extremity Gross ROM WFL Left Upper Extremity Gross ROM WFL Bed Mobility bed mobility-scooting,bed mobility - supine/sit Assist Level Contact Guard/Hand Hold Transfer Training Sit/Stand Transfer Assist Level Minimal x 1 (25% assist) Lower Body Dressing Ability Contact Guard Rehab OT IP prob,goals,plan Problems Date of Evaluation: 10/09/24 OT IP Problems Bed Mobility,Transfers,Balance ,Self care,Safety Rehab Potential Rehab Potential Good Equipment Needs Assistive Devices Straight Cane,Rolling / Wheeled Walker Plan OT intervention Plan Bed Mobility,Transfers,Balance ,Self care,Safety,Therapeutic Exercise OT Plan Frequency Daily Duration LOS Discharge Goals Bed Mobility Ability Standby Assistance Sit to Stand Chair Transfer Ability Contact Guard/Hand Hold Chair Transfer Ability Contact Guard/Hand Hold Chair Transfer Technique Sit to/from Ambulatory Chair Transfer Assistive Devices Straight Cane,Rolling Walker Feeding Ability Assist with Tray Set Up Lower Body Dressing Ability Standby Assistance Upper Body Dressing Ability Standby Assistance Bathing Ability Standby Assistance Performing Toilet Hygiene Ability Standby Assistance Commode/Toilet Transfer Technique Sit to/from Ambulatory Oral Care Assist Standby Assistance Discharge Plan OT Discharge Plan Pt will continue to be seen for OT services while at [facility]. Pt appears to be close to baseline with functional transfers and ADL independence . Pt can return home once he is medically stable per physician. Therapist does recommend HH OT evaluation once he returns home for environmental safety. Eval Complexity Eval Charge Codes 69753 - Moderate Complexity PHYSICIAN CERTIFICATION: I certify the specified therapy services for Brandon Dave are required, authorized, and reviewed every 30 days.
[2024-10-09] MEDS: NICOTINE 21MG/24HR PATCH 21 MG TD (13:54)
--- NOTE | 2024-10-09 14:03 | EXP.ACUTE.PN ---
Subjective *Date: 10/09/24 *Time: 14:03 Interval history: Still having pain on the this morning. Mainly in his right abdomen. Reviewed CT of abdomen, shows duodenitis. Will broaden coverage for GI prophylaxis. Discussed consulting surgery. Denies chest pain or shortness of breath. Feels nauseous but does not feel like actually vomiting. States he had an ulcer years ago in his duodenum. Having trouble treating his pain due to his Suboxone use. Afebrile Medical Exam Vital signs and Labs for Last 24 Hours: Vital Signs Temp Pulse Pulse Resp BP BP Pulse Ox 10/09/24 13:00 10/09/24 12:00 98.0 F 70 18 120/80 95 10/09/24 11:00 10/09/24 09:00 10/09/24 08:00 10/09/24 08:00 98.4 F 58 L 18 137/84 95 10/09/24 08:00 70 10/09/24 06:49 10/09/24 05:00 10/09/24 04:00 98.5 F 52 L 16 137/93 H 97 10/09/24 04:00 50 L 10/09/24 03:00 10/09/24 01:06 84 10/09/24 01:00 10/09/24 00:55 98.5 F 80 18 138/89 10/09/24 00:00 98.3 F 63 23 172/87 H 100 10/08/24 23:20 70 100 10/08/24 22:30 70 127/81 98 10/08/24 22:09 72 145/81 H 99 10/08/24 21:31 61 134/63 98 10/08/24 21:05 98.5 F 73 20 164/101 H 98 O2 Del Method 10/09/24 13:00 Room Air 10/09/24 12:00 Room Air 10/09/24 11:00 Room Air 10/09/24 09:00 Room Air 10/09/24 08:00 Room Air 10/09/24 08:00 Room Air 10/09/24 08:00 10/09/24 06:49 Room Air 10/09/24 05:00 Room Air 10/09/24 04:00 Room Air 10/09/24 04:00 10/09/24 03:00 Room Air 10/09/24 01:06 10/09/24 01:00 Room Air 10/09/24 00:55 Room Air 10/09/24 00:00 Room Air 10/08/24 23:20 Room Air 10/08/24 22:30 10/08/24 22:09 Room Air 10/08/24 21:31 Room Air 10/08/24 21:05 Room Air Intake and Output 10/08/24 10/09/24 10/09/24 23:59 07:59 15:59 Intake Total 100 / 100 0 / 100 Output Total 300 / 700 400 / 700 Balance -200 / -600 -400 / -600 Intake: Intake, Oral Amount 0 / 0 Intake, Total IV Amount 100 / 100 Magnesium Sulfate in Water 2 gm 100 / 100 In 50 ml @ 50 mls/hr IV ONCE ONE Rx#:[id number] Output: Output, Urine Amount 300 / 700 400 / 700 Other: Number of Unmeasured Voids 0 0 Weight 63.503 kg 63.503 kg Patient Weight 10/09/24 23:59 Weight 63.503 kg Laboratory Results - last 24 hr 10/08/24 21:25: WBC 3.3 L, RBC 4.24 L, Hgb 13.0 L, Hct 39.4 L, MCV 92.9, MCH 30.7, MCHC 33.0, RDW 16.5, Plt Count 184, MPV 9.1, Neut % (Auto) 50.9, Lymph % (Auto) 33.5, [place] % (Auto) 13.5 H, Eos % (Auto) 1.2, Baso % (Auto) 0.9, Neut # (Auto) 1.7 L, Lymph # (Auto) 1.1, [place] # (Auto) 0.4, Eos # (Auto) 0.0, Baso # (Auto) 0.0, PT 10.8, INR 0.96, APTT 28.2, Sodium 138, Potassium 3.0 L, Chloride 102, Carbon Dioxide 30, Anion Gap 9.0, BUN 6 L, Creatinine 0.60 L, Estimated Creat Clear 134, Estimated GFR 143, Est GFR ( Amer) 173, Glucose 108 H, Calcium 8.6, Phosphorus 2.2 L, Magnesium 1.4 L 10/08/24 21:25: Magnesium 1.5 L, Total Bilirubin 1.0, Direct Bilirubin 0.2, Conjugated Bilirubin 0.0, Indirect Bilirubin 0.8, Unconjugated Bilirubin 0.8, AST 81 H, ALT 13, Alkaline Phosphatase 189 H, NT-Pro-B Natriuret Pep 208 H, Total Protein 7.5, Albumin 3.9, Globulin 3.6 H, Albumin/Globulin Ratio 1.1, Lipase 112, Procalcitonin 0.066, Urine Color Dark yellow, Urine Appearance Clear, Urine pH 7.0, Ur Specific [place] 1.020, Urine Protein Trace, Urine Glucose (UA) Negative, Urine Ketones Negative, Urine Blood Negative, Urine Nitrate Negative, Urine Bilirubin Negative, Urine Urobilinogen 2.0, Ur Leukocyte Esterase Negative, Urine RBC 3-5, Urine WBC 3-5, Ur Squamous Epith Cells Occasional, Urine Bacteria 1+, Urine Mucus 2+, Urine Opiates Screen Negative, Urine Methadone Screen Negative, Ur Barbituates Screen Negative, Ur Phencyclidine Scrn Negative, Ur Amphetamines Screen Negative, U Benzodiazepines Scrn Positive H, Urine Cocaine Screen Negative, U Marijuana (THC) Screen Positive H, Plasma/Serum Alcohol < 10 10/08/24 23:10: Lactate 0.9 10/09/24 07:35: WBC 2.3 L D, RBC 3.75 L, Hgb 11.6 L D, Hct 35.7 L, MCV 95.2 H, MCH 30.4, MCHC 31.9, RDW 16.1, Plt Count 146, MPV 9.2, Neut % (Auto) 33.8 L, Lymph % (Auto) 46.9, [place] % (Auto) 15.4 H, Eos % (Auto) 2.2, Baso % (Auto) 1.3, Neut # (Auto) 0.8 L*, Lymph # (Auto) 1.1, [place] # (Auto) 0.4, Eos # (Auto) 0.1, Baso # (Auto) 0.0, PT 11.2, INR 1.00, APTT 29.9, Sodium 139, Potassium 3.1 L, Chloride 106, Carbon Dioxide 29, Anion Gap 7.1, BUN 3 L D, Creatinine 0.60 L, Estimated Creat Clear 134, Estimated GFR 143, Est GFR ( Amer) 173, Glucose 88, Calcium 7.6 L, Phosphorus 2.3 L, Magnesium 2.2 D, Total Bilirubin 0.9, AST 59 D, ALT 9 L D, Alkaline Phosphatase 132 H, Total Protein 6.1 L, Albumin 2.9 L D, Globulin 3.2, Albumin/Globulin Ratio 0.9 L, Amylase 91, Lipase 93 I & O for Labs for Last 24 Hours: Intake & Output 10/06/24 10/07/24 10/08/24 10/09/24 23:59 23:59 23:59 23:59 Intake Total 100 / 100 Output Total 700 / 700 Balance -600 / -600 Weight 63.503 kg 63.503 kg Constitutional: Present moderate distress, thin, chronically ill appearing, cooperative and agitated Head: Present atraumatic and normocephalic ENT: Present normal exam Comment:: Poor dentition Respiratory: Present prolonged expiratory phase, rhonchi and normal respiratory effort; Absent wheezes or crackles Cardiac: Present Reg Rate and Rhythm GI: Present soft, tenderness (Predominantly in epigastric region) and normal bowel sounds; Absent distention Extremities: Present normal inspection and full ROM; Absent edema Comment:: Thin Skin: Present intact; Absent erythema or rash Neuro: Present Grossly Intact, alert, awake, oriented x 3 and moves all extremities Comment:: tremor Assessment and Plan *Assessment and plan (1) Alcohol withdrawal: Status: Acute Category: Medical Code(s): F10.939 - Alcohol use, unspecified with withdrawal, unspecified (2) Duodenal ulcer: Status: Acute Category: Medical Code(s): K26.9 - Duodenal ulcer, unspecified as acute or chronic, without hemorrhage or perforation (3) Hypomagnesemia: Status: Acute Category: Medical Code(s): E83.42 - Hypomagnesemia (4) Hypokalemia: Status: Acute Category: Medical Code(s): E87.6 - Hypokalemia (5) Flank pain: Status: Acute Category: Medical Code(s): R10.9 - Unspecified abdominal pain (6) PTSD (post-traumatic stress disorder): Status: Acute Category: Medical Code(s): F43.10 - Post-traumatic stress disorder, unspecified (7) Generalized anxiety disorder with panic attacks: Status: Acute Category: Medical Code(s): F41.1 - Generalized anxiety disorder; F41.0 - Panic disorder [episodic paroxysmal anxiety] (8) Major depress dis, severe: Status: Acute Category: Medical Code(s): F32.2 - Major depressive disorder, single episode, severe without psychotic features (9) Alcoholic fatty liver: Status: Acute Category: Medical Code(s): K70.0 - Alcoholic fatty liver Plan Mr. Dave is a 48-year-old male with history of alcoholism, COPD, duodenal ulcers, and esophagitis presenting with severe alcohol withdrawal and abdominal pain. Admitted for medical management of his withdrawal. CT of abdomen shows thickening of the duodenum. Surgery consulted to assist with care. Currently NPO. Continues to require patient management. Problems addressed as follows: Acute Alcohol Withdrawal Chronic alcoholism -Continue CIWA protocol. Continue Valium per protocol. CIWA's remain in the teens - collection support specialist consulted to assist with potential rehab referral and outpatient management once stable to discharge - If scores worsen for withdrawal, will consider phenobarbital. - Continue vitamins per protocol with thiamine, folate, multivitamin daily -Seizure precaution Malnutrition Electrolyte disturbance -White count low at 2.3, hemoglobin 11.6. Potassium low at 3.1, BUN 3, creatinine 0.6. Phosphorus 2.3, magnesium normal at 2.2. Replacing electrolytes per protocol. -Repeat CBC, CMP, magnesium ordered for the morning Duodenitis Abdominal Pain & Vomiting - IV pantoprazole 40 mg BID for ulcer prophylaxis. -Initiate sucralfate 4 times a day -Surgery consulted to evaluate, may need EGD. Currently n.p.o. COPD Tobacco use disorder -DuoNebs scheduled every 6 hours -White count remains low at 3.3. -Stable on room air. Goal sats greater 90% Continue levothyroxine 50 mcg daily Continue Creon with meals Chronic opiate dependence, continue buprenorphine 2 tabs daily Full code Regular diet
--- NOTE | 2024-10-09 15:47 | HMH.PTEV ---
Physical Therapy Evaluation Rehab PT IP Evaluation Start: 10/09/24 10:04 Freq: ONCE Status: Active Protocol: Document 10/09/24 13:05 PHORNE (Rec: 10/09/24 15:47 PHORNE [id number]) Subjective/History History History A 48-year-old male with a history of alcoholism, opioid dependence on buprenorphine/ naloxone (Suboxone), major depressive disorder, post- traumatic stress disorder ( PTSD), Wernicke?s encephalopathy, generalized anxiety disorder, duodenal ulcers, esophagitis, and gastritis presents to the emergency department for evaluation of acute epigastric abdominal pain, left flank pain, nausea, vomiting, and reported episodes of hematemesis (bright red blood) and melena (dark, tarry stools). Pt suspected to have a duodenal ulcer and is currently in alcohol withdrawal. Pt currently lives alone and is fully independent with all ADLs and uses a cane as needed for ambulation. Subjective Subjective Pt presents supine in bed with notable tremors due to alcohol withdrawal. Pt reports that his feet hurt but is willing to ambulate with PT/OT this pm. He returned to bed with call light and personal items within reach. [facility] How much help from another person do you currently need... Turning from your back to your side None while in a flat bed without using bedrails? Moving from lying on back to sitting on None the side of a flat bed without using bedrails? Moving to and from a bed to a chair ( None including a wheelchair)? Standing up from a chair using your arms None ? (e.g., wheelchair, bedside chair) Walking in hospital room? None Climbing 3-5 steps with a railing? None Mobility Score 24 Mobility Level [place] Mobility Calculator Mobility 8 Walk 250 feet or more Rehab PT IP Eval Objective Appearance Patient Behavior Appropriate,Cooperative Patient Orientation Person,Place,Time Difficulty following instructions none Speech Pattern Clear,Appropriate Ambulation Patient Able to Ambulate Yes Ambulation Observation IP General Gait Pattern Observation Wide Based Gait Ambulation Distance (feet) 25 Ambulation Ability Contact Guard/Hand Hold Balance Ability to Arise Able, w/o using arms Sitting Balance Steady, safe Standing Balance Steady, wide stance Dynamic Sitting Balance Ability Normal Dynamic Standing Balance Ability Good Transfers Bed Transfer Ability Independent Sit to Stand Bed Transfer Ability Supervision/Stand by Rehab PT IP prob,goals,plan Problems Date of Evaluation: 10/09/24 PT IP Problems Gait,Balance Rehab Potential Rehab Potential Good Plan PT Intervention Plan Transfers,Gait,Balance, Therapeutic Exercise PT Plan Frequency Daily Duration LOS Discharge Goals Bed Transfer Ability Independent Sit to Stand Chair Transfer Ability Independent Ambulation Distance (feet) 100 Discharge Plan PT Discharge Plan Patient is currently appropriate to d/c home once medically stable. Patient was able to ambulate around his room (25 ft) but was slightly unsteady at times and with turning. Skilled acute therapy is currently indicated to improve LE strength, endurance , and dynamic balance in order to return patient to [facility] with all ADLs and walking community distances. Eval Complexity Eval Charge Codes 19482 - High Complexity PHYSICIAN CERTIFICATION: I certify the specified therapy services for Brandon Dave are required, authorized, and reviewed every 30 days.
--- NOTE | 2024-10-09 16:56 | EXP.SURG.CON ---
History of Present Illness *Admission Date: 10/08/24 *Reason for visit:: Duodenitis versus ulcer *History of present illness: Patient is 48-year-old male from [place] with reported history of alcohol abuse/dependence, tobacco abuse/dependence, drug abuse/dependence, history of recurrent ulcer disease. He had been seen in November 2023 with symptoms of melena and he underwent EGD which revealed moderately severe diffuse gastritis, moderately severe duodenitis, multiple duodenal ulcers in the second portion of the duodenum. Patient ultimately was able to be discharged. However, he did not follow-up after his hospitalization. He presented to the emergency department on 03/13/2024 with symptoms of coffee-ground emesis and maroon-colored stool with epigastric tenderness. He underwent EGD on 03/14/2024 which revealed small sliding hiatal hernia and some diffuse gastritis with moderate duodenitis but most notable was a 1 cm inflamed post bulbar duodenal ulcer without active bleeding but some minimal stigmata of recent bleeding. Intervention with epinephrine injection was performed. Patient was ultimately discharged. He did not follow-up after his hospitalization. Of note, patient had a prior history of GI blood loss in August 2019 which was managed as an inpatient at which time he underwent EGD which revealed a large moderately deep gastric antral ulcer along with duodenitis as well as a duodenal ulcer in the second portion of the duodenum. Patient did actually undergo follow-up upper endoscopy as an outpatient after medical treatment in November 2019 which revealed completely healed duodenal ulcers. Patient apparently had a recent prolonged hospitalization at [facility] but exact details are unknown at this time. He presented to the emergency department at [facility] in the late evening of 10/08/24 with epigastric abdominal pain, left flank pain, nausea, vomiting. Part of his workup included CT scan which revealed findings of focal inflammatory change abutting the second portion of the duodenum without significant wall thickening and also abutting the head of the pancreas. Differential was felt to include groove pancreatitis versus duodenitis or inflamed duodenal ulcer. He was admitted for inpatient management and surgical consultation. [facility] Disclaimer: The information contained in this section may have been updated after the patient was seen, as this information can be updated by other users. Medical History Alcohol use disorder Gastrointestinal bleed Duodenal ulcer Necrotizing pneumonia Pneumonia Drug abuse and dependence Back pain Rib pain Shoulder pain Neck pain Acute UTI Back pain Ankle fracture Fracture of distal end of fibula Sinusitis Cellulitis Exposure to COVID-19 virus PTSD (post-traumatic stress disorder) Acute blood loss anemia Anemia Peptic ulcer disease with hemorrhage Chronic pain Anxiety Acute bronchitis Elbow pain, left Acute urinary tract infection Leukocytosis Acute appendicitis High risk medication use Tobacco abuse Asthma exacerbation Depression Anxiety Traumatic brain injury Surgical History History of foot surgery H/O lithotripsy History of appendectomy H/O right knee surgery H/O anterior cruciate ligament surgery Previous back surgery Family History Grandmother Cancer Diabetes Stroke Grandfather Cancer Mother Diabetes Hypertension Social History Smoking Status: Current every day smoker tobacco type: cigarettes packs per day: 1 alcohol intake: current alcohol intake frequency: a few times a week counseling provided: provider counseling substance use type: former substance user and prescription drug current occupational status: disabled Travel in the last 8 weeks: None household members: significant other housing: house current occupational exposures/hazards: No caffeine: No Have you lived/traveled outside US in past 30 days?: No Contact w/someone who lives/traveled outside US past 30 days?: No Exposure to someone with infectious disease in past 14 days?: No Do you have a fever (greater than 100.4 F or 38 C)?: No Have you tested positive for COVID-19: No Exposed to someone with COVID-19 in past 14 days?: No Do you have a sore throat?: No Do you have a cough?: No Do you have any weakness?: No Do you have any diarrhea?: No Are you experiencing any unusual bleeding?: No Do you have any muscle aches/pain?: No Do you have any abdominal pain?: No Are you experiencing loss of taste or smell?: No Meds Home Medications and Allergies Home Medications ?Medication ?Instructions ?Recorded ?Confirmed ?Type ipratropium 0.5 mg-albuterol 3 mg 3 ml inhalation Q6HP PRN shortness 04/15/24 10/09/24 Rx (2.5 mg base)/3 mL nebulization of breath or wheezing 30 days #180 soln mL fluticasone 250 mcg-salmeterol 50 1 inh inhalation BID 30 days #60 ea 05/01/24 10/09/24 Rx mcg/dose blistr powdr for inhalation (Advair Diskus) buprenorphine 8 mg-naloxone 2 mg 2 tab sublingual DAILY 7 days #14 08/08/24 10/09/24 Rx sublingual tablet tabs folic acid 1 mg tablet 1 mg PO DAILY 30 days #30 tabs 08/08/24 10/09/24 Rx gabapentin 100 mg capsule 200 mg (2 x 100 mg) PO BID 30 days 08/08/24 10/09/24 Rx #120 caps levothyroxine 25 mcg tablet 50 mcg (2 x 25 mcg) PO DAILYDM 30 08/08/24 10/09/24 Rx (Synthroid) days #60 tabs mlsbrv-icbezmbk-hgtthel 2 cap PO AC 30 days #180 caps 08/08/24 10/09/24 Rx 36,000-114,000-180,000 unit capsule,delay rel (Creon) misoprostol 200 mcg tablet 200 mcg PO BID 30 days #60 tabs 08/08/24 10/09/24 Rx multivitamin 1 tab PO DAILY #30 tabs 08/08/24 10/09/24 Rx pantoprazole 40 mg tablet,delayed 40 mg PO BID 30 days #60 tabs 08/08/24 10/09/24 Rx release polyethylene glycol 3350 17 17 g PO DAILY 30 days #510 grams 08/08/24 10/09/24 Rx gram/dose oral powder thiamine HCl (vitamin B1) 100 mg 100 mg PO DAILY #30 tabs 08/08/24 10/09/24 Rx tablet albuterol sulfate 90 mcg/actuation 2 puff inhalation Q6HP PRN 08/14/24 10/09/24 Rx aerosol inhaler shortness of breath or wheezing #8.5 grams New Prescriptions to Start Prescriptions: Allergies Allergy/AdvReac Type Severity Reaction Status Date / Time aspirin (ASPIRIN) Allergy Unknown Nose Bleed Verified 08/14/24 12:51 cephalexin (From Keflex) Allergy Gastrointestinal Verified 08/14/24 12:51 Upset piperacillin (From Zosyn) Allergy Hives Verified 08/14/24 12:51 tazobactam (From Zosyn) Allergy Hives Verified 08/14/24 12:51 Exam (Inpt) Vital signs and Labs for Last 24 Hours: Temp Pulse Resp BP Pulse Ox O2 Del Method 98.0 F 70 18 120/80 95 Room Air 10/09/24 12:00 10/09/24 12:00 10/09/24 12:00 10/09/24 12:00 10/09/24 12:00 10/09/24 15:00 Laboratory Results - last 24 hr 10/08/24 21:25: WBC 3.3 L, RBC 4.24 L, Hgb 13.0 L, Hct 39.4 L, MCV 92.9, MCH 30.7, MCHC 33.0, RDW 16.5, Plt Count 184, MPV 9.1, Neut % (Auto) 50.9, Lymph % (Auto) 33.5, [place] % (Auto) 13.5 H, Eos % (Auto) 1.2, Baso % (Auto) 0.9, Neut # (Auto) 1.7 L, Lymph # (Auto) 1.1, [place] # (Auto) 0.4, Eos # (Auto) 0.0, Baso # (Auto) 0.0, PT 10.8, INR 0.96, APTT 28.2, Sodium 138, Potassium 3.0 L, Chloride 102, Carbon Dioxide 30, Anion Gap 9.0, BUN 6 L, Creatinine 0.60 L, Estimated Creat Clear 134, Estimated GFR 143, Est GFR ( Amer) 173, Glucose 108 H, Calcium 8.6, Phosphorus 2.2 L, Magnesium 1.4 L 10/08/24 21:25: Magnesium 1.5 L, Total Bilirubin 1.0, Direct Bilirubin 0.2, Conjugated Bilirubin 0.0, Indirect Bilirubin 0.8, Unconjugated Bilirubin 0.8, AST 81 H, ALT 13, Alkaline Phosphatase 189 H, NT-Pro-B Natriuret Pep 208 H, Total Protein 7.5, Albumin 3.9, Globulin 3.6 H, Albumin/Globulin Ratio 1.1, Lipase 112, Procalcitonin 0.066, Urine Color Dark yellow, Urine Appearance Clear, Urine pH 7.0, Ur Specific [place] 1.020, Urine Protein Trace, Urine Glucose (UA) Negative, Urine Ketones Negative, Urine Blood Negative, Urine Nitrate Negative, Urine Bilirubin Negative, Urine Urobilinogen 2.0, Ur Leukocyte Esterase Negative, Urine RBC 3-5, Urine WBC 3-5, Ur Squamous Epith Cells Occasional, Urine Bacteria 1+, Urine Mucus 2+, Urine Opiates Screen Negative, Urine Methadone Screen Negative, Ur Barbituates Screen Negative, Ur Phencyclidine Scrn Negative, Ur Amphetamines Screen Negative, U Benzodiazepines Scrn Positive H, Urine Cocaine Screen Negative, U Marijuana (THC) Screen Positive H, Plasma/Serum Alcohol < 10 10/08/24 23:10: Lactate 0.9 10/09/24 07:35: WBC 2.3 L D, RBC 3.75 L, Hgb 11.6 L D, Hct 35.7 L, MCV 95.2 H, MCH 30.4, MCHC 31.9, RDW 16.1, Plt Count 146, MPV 9.2, Neut % (Auto) 33.8 L, Lymph % (Auto) 46.9, [place] % (Auto) 15.4 H, Eos % (Auto) 2.2, Baso % (Auto) 1.3, Neut # (Auto) 0.8 L*, Lymph # (Auto) 1.1, [place] # (Auto) 0.4, Eos # (Auto) 0.1, Baso # (Auto) 0.0, PT 11.2, INR 1.00, APTT 29.9, Sodium 139, Potassium 3.1 L, Chloride 106, Carbon Dioxide 29, Anion Gap 7.1, BUN 3 L D, Creatinine 0.60 L, Estimated Creat Clear 134, Estimated GFR 143, Est GFR ( Amer) 173, Glucose 88, Calcium 7.6 L, Phosphorus 2.3 L, Magnesium 2.2 D, Total Bilirubin 0.9, AST 59 D, ALT 9 L D, Alkaline Phosphatase 132 H, Total Protein 6.1 L, Albumin 2.9 L D, Globulin 3.2, Albumin/Globulin Ratio 0.9 L, Amylase 91, Lipase 93 I & O for Labs for Last 24 Hours: Intake & Output 10/07/24 10/08/24 10/09/24 10/10/24 11:59 11:59 11:59 11:59 Intake Total 100 / 100 0 / 0 Output Total 300 / 700 400 / 400 Balance -200 / -600 -400 / -400 Weight 140 lb 0.002 oz Constitutional: no acute distress and chronically ill appearing Head: Present normocephalic Respiratory: Present CTA bilaterally GI: Present soft and tenderness Comments:: He has some diffuse tenderness. Examination is difficult. Rectal (male): Present deferred (male): Present deferred Results Labs 10/09/24 07:35 10/09/24 07:35 Labs: Laboratory Results - last 24 hr 10/08/24 21:25: WBC 3.3 L, RBC 4.24 L, Hgb 13.0 L, Hct 39.4 L, MCV 92.9, MCH 30.7, MCHC 33.0, RDW 16.5, Plt Count 184, MPV 9.1, Neut % (Auto) 50.9, Lymph % (Auto) 33.5, [place] % (Auto) 13.5 H, Eos % (Auto) 1.2, Baso % (Auto) 0.9, Neut # (Auto) 1.7 L, Lymph # (Auto) 1.1, [place] # (Auto) 0.4, Eos # (Auto) 0.0, Baso # (Auto) 0.0, PT 10.8, INR 0.96, APTT 28.2, Sodium 138, Potassium 3.0 L, Chloride 102, Carbon Dioxide 30, Anion Gap 9.0, BUN 6 L, Creatinine 0.60 L, Estimated Creat Clear 134, Estimated GFR 143, Est GFR ( Amer) 173, Glucose 108 H, Calcium 8.6, Phosphorus 2.2 L, Magnesium 1.4 L 10/08/24 21:25: Magnesium 1.5 L, Total Bilirubin 1.0, Direct Bilirubin 0.2, Conjugated Bilirubin 0.0, Indirect Bilirubin 0.8, Unconjugated Bilirubin 0.8, AST 81 H, ALT 13, Alkaline Phosphatase 189 H, NT-Pro-B Natriuret Pep 208 H, Total Protein 7.5, Albumin 3.9, Globulin 3.6 H, Albumin/Globulin Ratio 1.1, Lipase 112, Procalcitonin 0.066, Urine Color Dark yellow, Urine Appearance Clear, Urine pH 7.0, Ur Specific [place] 1.020, Urine Protein Trace, Urine Glucose (UA) Negative, Urine Ketones Negative, Urine Blood Negative, Urine Nitrate Negative, Urine Bilirubin Negative, Urine Urobilinogen 2.0, Ur Leukocyte Esterase Negative, Urine RBC 3-5, Urine WBC 3-5, Ur Squamous Epith Cells Occasional, Urine Bacteria 1+, Urine Mucus 2+, Urine Opiates Screen Negative, Urine Methadone Screen Negative, Ur Barbituates Screen Negative, Ur Phencyclidine Scrn Negative, Ur Amphetamines Screen Negative, U Benzodiazepines Scrn Positive H, Urine Cocaine Screen Negative, U Marijuana (THC) Screen Positive H, Plasma/Serum Alcohol < 10 10/08/24 23:10: Lactate 0.9 10/09/24 07:35: WBC 2.3 L D, RBC 3.75 L, Hgb 11.6 L D, Hct 35.7 L, MCV 95.2 H, MCH 30.4, MCHC 31.9, RDW 16.1, Plt Count 146, MPV 9.2, Neut % (Auto) 33.8 L, Lymph % (Auto) 46.9, [place] % (Auto) 15.4 H, Eos % (Auto) 2.2, Baso % (Auto) 1.3, Neut # (Auto) 0.8 L*, Lymph # (Auto) 1.1, [place] # (Auto) 0.4, Eos # (Auto) 0.1, Baso # (Auto) 0.0, PT 11.2, INR 1.00, APTT 29.9, Sodium 139, Potassium 3.1 L, Chloride 106, Carbon Dioxide 29, Anion Gap 7.1, BUN 3 L D, Creatinine 0.60 L, Estimated Creat Clear 134, Estimated GFR 143, Est GFR ( Amer) 173, Glucose 88, Calcium 7.6 L, Phosphorus 2.3 L, Magnesium 2.2 D, Total Bilirubin 0.9, AST 59 D, ALT 9 L D, Alkaline Phosphatase 132 H, Total Protein 6.1 L, Albumin 2.9 L D, Globulin 3.2, Albumin/Globulin Ratio 0.9 L, Amylase 91, Lipase 93 Assessment and Plan *Assessment and plan (1) Duodenal ulcer: Status: Acute Category: Medical Code(s): K26.9 - Duodenal ulcer, unspecified as acute or chronic, without hemorrhage or perforation Plan Patient likely has inflamed duodenal ulcer. I reviewed his imaging. There does appear to be Hemoclip present. Exact details of when this was placed is unknown. No evidence of any perforation. No definite evidence of any gastric outlet obstruction. Recommend treatment with high-dose proton pump inhibitors. Could consider sucralfate. Likely would need suspension. Review outside records when available. Given his recurrent duodenal ulcer disease may ultimately require referral for resection. This would be beyond the capability of this facility.
[2024-10-09] MEDS: SUCRALFATE 1GM TABLET 1 GM PO ×2 (17:15→21:11)
--- NOTE | 2024-10-09 17:41 | PC.NURSE ---
Pt has been alert and oriented x4. CIWA scores have ranged from 9-13 and pt has been medicated per MAR pt does have visible tremors and voices concerns of hallucinations. Pt has had multiple c/o abdominal pain and was medicated. Pt has been NPO most of day awaiting surgery consult but was changed to full liquid diet this evening after consult with no plans at this time for surgical intervention. ultrasound applications specialist was consulted today and has spoken with pt. Pt given shower this evening and is resting in bed with call light in reach.
--- NOTE | 2024-10-09 17:57 | PEERSUPPORT ---
Peer Support Note Patient Information Patient Information: DOS: 10/09/2024 Reason: ETOH ? ED Ps Consult ? Pt stated he has not been able to refrain from drinking as he has gotten worse since last discharged. He is working, but not able to work without drinking 2-3 fireball shots. Now drinking 2-2.5 sleeves per day, (20 shots per day). ? Ps and pt discuss options of treatment: -Pt is actively enrolled in outpatient MAT: [facility] Missed his appointment on 10/07/2024. -Inpatient: Pt agrees he needs inpatient treatment, interested in [facility]. ? Ps will provide intake assessment forms from [facility] for first contact. ?
[2024-10-10] VITALS (7 sets, daily range): BP systolic 112–133; BP diastolic 63–89; PULSE 68–86; RESP 16–21; TEMP 36.7–36.9; O2SAT 95–98; BMI 21.2
[2024-10-10] MEDS: MORPHINE 4MG/ML SYRINGE 4 MG IV ×4 (01:51→23:12)
[2024-10-10] MEDS: diazePAM 10MG/2ML SYRINGE 5 MG IV ×2 (03:59→14:57)
--- NOTE | 2024-10-10 04:31 | PC.NURSE ---
Pt A&OX4 and has tolerated room air. He has remained in seizure precautions. CIWA's in place with scores ranging from 8-11. He has also complained of nausea and abdominal pain and was medicated per MAR. Currently resting in bed with bed alarm in place.
[2024-10-10] MEDS: FLUTICASONE/SALMETEROL 250/50MCG DISKUS 1 PUFF IH ×2 (06:04→18:09)
[2024-10-10] MEDS: LIPASE/PROTEASE/AMYLASE 1 EACH CAPSULE.DR 2 EACH PO ×3 (06:13→16:30)
[2024-10-10] MEDS: SUCRALFATE 1GM TABLET 1 GM PO ×4 (06:14→20:43)
[2024-10-10] MEDS: LEVOTHYROXINE 50MCG (0.05MG) TAB 50 MCG PO (06:14)
[2024-10-10 06:42] LABS: Basophils % 0.8 % (0.1-2.0); Eosinophils # 0.1 K/mm3 (0.0-0.4); Eosinophils % 4.7 % (0.1-12.0); Hematocrit 35.3 % (42.0-52.0); Hemoglobin 10.9 g/dL (14.1-18.0); Lymphocytes # 1.2 K/mm3 (0.7-4.5); Lymphocytes % 46.1 % (10-50); Mean Corpuscular HGB Conc 30.9 g/dL (31.8-35.4); Mean Corpuscular Hemoglobin 29.9 pg (27.0-31.2); Mean Platelet Volume 9.7 fl (7.4-10.4); Monocytes # 0.3 K/mm3 (0.1-1.0); Neutrophils # 0.9 K/mm3 (1.8-7.8); Neutrophils % 35.4 % (37.0-80.0); Nucleated Red Blood Cells # 0 10^3/uL; Nucleated Red Blood Cells % 0 %; Platelet Count 152 K/mm3 (142-424); Red Blood Count 3.64 M/mm3 (4.60-6.20); Red Cell Distribution Width-SD 57.4 fL; White Blood Count 2.5 K/mm3 (4.8-10.8)
[2024-10-10 06:47] LABS: Albumin Level 2.8 g/dl (3.5-5.0); Chloride 106 mmol/L (98-107)
[2024-10-10 06:48] LABS: Potassium 4.1 mmoL/L (3.5-5.1); Sodium 137 mmol/L (136-145)
[2024-10-10 06:50] LABS: Anion Gap 7.1 mEq/L (5-15); Blood Urea Nitrogen 2 mg/dl (9-20); Carbon Dioxide 28 mmol/L (22.0-30.0); Creatinine Clearance Estimated 134 mL/min (50-200); Estimated Glomerular Filt Rate 143 ml/min (>60); GFR (African American) 173 ML/MIN (>60)
[2024-10-10 06:51] LABS: Alanine Aminotransferase 10 U/L (12-78); Albumin/Globulin Ratio 0.9 (1.1-1.8); Alkaline Phosphatase 117 U/L (38-126); Aspartate Amino Transferase 103 U/L (17-59); Bilirubin,Total 0.6 mg/dl (0.2-1.3); Calcium 7.8 mg/dl (8.4-10.2); Glucose 83 mg/dl (74-100); Magnesium 2.1 mg/dl (1.6-2.3); Total Protein,Serum 5.8 g/dl (6.3-8.2)
[2024-10-10] MEDS: SODIUM CHLORIDE 0.9% 10ML VIAL 10 ML IV ×2 (08:54→20:43)
[2024-10-10] MEDS: FOLIC ACID 1MG TABLET 1 MG PO (08:54)
[2024-10-10] MEDS: diazePAM 5MG TABLET 5 MG PO (08:54)
[2024-10-10] MEDS: PANTOPRAZOLE 40MG VIAL 40 MG IV ×2 (08:54→20:43)
[2024-10-10] MEDS: GABAPENTIN 100MG CAPSULE 200 MG PO ×2 (08:54→20:43)
[2024-10-10] MEDS: MVI, ADULT NO.1 WITH VIT K 10 ML, THIAMINE HCL 100 MG, MAGNESIUM SULFATE 2 GM in LACTAT... 125 ML IV (08:54)
[2024-10-10] MEDS: BUPRENORPHINE/NALOXONE 8MG/2MG ODT 2 EACH SL (09:53)
[2024-10-10] MEDS: diazePAM 10MG/2ML SYRINGE 10 MG IV ×2 (12:16→20:42)
--- NOTE | 2024-10-10 12:41 | EXP.ACUTE.PN ---
Subjective *Date: 10/10/24 *Time: 12:41 Interval history: Still having pain in mid abdomen. Denies yadira emesis this morning. Did have some emesis after chicken broth yesterday. Afebrile. Mild withdrawal symptoms this morning. Stable on room air. Denies chest pain. No blood in bowel movements or vomit. Medical Exam Vital signs and Labs for Last 24 Hours: Vital Signs Temp Pulse Pulse Resp BP Pulse Ox O2 Del Method 10/10/24 10:12 Room Air 10/10/24 09:00 Room Air 10/10/24 08:00 70 10/10/24 08:00 98.0 F 78 21 112/63 96 Room Air 10/10/24 07:34 Room Air 10/10/24 06:49 Room Air 10/10/24 05:00 Room Air 10/10/24 04:00 80 10/10/24 03:48 98.3 F 68 16 133/79 97 10/10/24 03:00 Room Air 10/10/24 01:00 Room Air 10/10/24 00:00 80 10/09/24 23:44 98.5 F 75 19 134/93 H 97 Room Air 10/09/24 23:00 Room Air 10/09/24 21:00 Room Air 10/09/24 20:00 Room Air 10/09/24 20:00 70 10/09/24 19:55 98.8 F 78 17 134/80 97 Room Air 10/09/24 18:42 Room Air 10/09/24 17:00 Room Air 10/09/24 16:00 50 L 10/09/24 16:00 98.0 F 59 L 18 146/74 H 98 Room Air 10/09/24 15:00 Room Air 10/09/24 13:00 Room Air Intake and Output 10/09/24 10/10/24 10/10/24 23:59 07:59 15:59 Intake Total 150 / 510 360 / 510 Output Total 750 / 1450 450 / 850 400 / 850 Balance -750 / -1200 -300 / -340 -40 / -340 Intake: Intake, Oral Amount 150 / 510 360 / 510 Output: Output, Urine Amount 750 / 1450 450 / 850 400 / 850 Other: Number of Unmeasured Voids 1 0 Weight 63.645 kg Patient Weight 10/10/24 23:59 Weight 63.645 kg Laboratory Results - last 24 hr 10/10/24 06:10: WBC 2.5 L, RBC 3.64 L, Hgb 10.9 L, Hct 35.3 L, MCV 97.0 H, MCH 29.9, MCHC 30.9 L, RDW 16.0, Plt Count 152, MPV 9.7, Neut % (Auto) 35.4 L, Lymph % (Auto) 46.1, [place] % (Auto) 13.0 H, Eos % (Auto) 4.7, Baso % (Auto) 0.8, Neut # (Auto) 0.9 L*, Lymph # (Auto) 1.2, [place] # (Auto) 0.3, Eos # (Auto) 0.1, Baso # (Auto) 0.0, Sodium 137, Potassium 4.1 D, Chloride 106, Carbon Dioxide 28, Anion Gap 7.1, BUN 2 L D, Creatinine 0.60 L, Estimated Creat Clear 134, Estimated GFR 143, Est GFR ( Amer) 173, Glucose 83, Calcium 7.8 L, Magnesium 2.1, Total Bilirubin 0.6, AST 103 H D, ALT 10 L, Alkaline Phosphatase 117, Total Protein 5.8 L, Albumin 2.8 L, Globulin 3.0, Albumin/Globulin Ratio 0.9 L I & O for Labs for Last 24 Hours: Intake & Output 10/07/24 10/08/24 10/09/24 10/10/24 23:59 23:59 23:59 23:59 Intake Total 100 / 250 510 / 510 Output Total 1450 / 1450 850 / 850 Balance -1350 / -1200 -340 / -340 Weight 63.503 kg 63.503 kg 63.645 kg Constitutional: Present mild distress, thin, chronically ill appearing, cooperative and agitated Head: Present atraumatic and normocephalic ENT: Present normal exam Comment:: Poor dentition Respiratory: Present prolonged expiratory phase, rhonchi and normal respiratory effort; Absent wheezes or crackles Cardiac: Present Reg Rate and Rhythm GI: Present soft, tenderness (Predominantly in epigastric region) and normal bowel sounds; Absent distention Extremities: Present normal inspection and full ROM; Absent edema Comment:: Thin Skin: Present intact; Absent erythema or rash Neuro: Present Grossly Intact, alert, awake, oriented x 3 and moves all extremities Comment:: tremor Assessment and Plan *Assessment and plan (1) Alcohol withdrawal: Status: Acute Category: Medical Code(s): F10.939 - Alcohol use, unspecified with withdrawal, unspecified (2) Duodenal ulcer: Status: Acute Category: Medical Code(s): K26.9 - Duodenal ulcer, unspecified as acute or chronic, without hemorrhage or perforation (3) Hypomagnesemia: Status: Acute Category: Medical Code(s): E83.42 - Hypomagnesemia (4) Hypokalemia: Status: Acute Category: Medical Code(s): E87.6 - Hypokalemia (5) Flank pain: Status: Acute Category: Medical Code(s): R10.9 - Unspecified abdominal pain (6) PTSD (post-traumatic stress disorder): Status: Acute Category: Medical Code(s): F43.10 - Post-traumatic stress disorder, unspecified (7) Generalized anxiety disorder with panic attacks: Status: Acute Category: Medical Code(s): F41.1 - Generalized anxiety disorder; F41.0 - Panic disorder [episodic paroxysmal anxiety] (8) Major depress dis, severe: Status: Acute Category: Medical Code(s): F32.2 - Major depressive disorder, single episode, severe without psychotic features (9) Alcoholic fatty liver: Status: Acute Category: Medical Code(s): K70.0 - Alcoholic fatty liver Plan Mr. Dave is a 48-year-old male with history of alcoholism, COPD, duodenal ulcers, and esophagitis presenting with severe alcohol withdrawal and abdominal pain. Admitted for medical management of his withdrawal. CT of abdomen shows thickening of the duodenum. Surgery consulted to assist with care. Advance diet. Still having pain. Continue with medical management of gastritis/duodenitis and alcohol withdrawal. Continues to require patient management. Problems addressed as follows: Acute Alcohol Withdrawal Chronic alcoholism -Continue CIWA protocol. Continue Valium per protocol. CIWA's remain in the teens - medical care evaluation specialist consulted to assist with potential rehab referral and outpatient management once stable to discharge - If scores worsen for withdrawal, will consider phenobarbital. - Continue vitamins per protocol with thiamine, folate, multivitamin daily -Discontinued rally pack to decrease volume of IV fluids. Patient does have some edema in his hands. Will administer one-time dose of Lasix 40 mg IV. -Seizure precaution Malnutrition Electrolyte disturbance -White count low at 2.5, hemoglobin down from 11.6-10.9. Suspect delusional given drop in other cell lines 2. Kidney function normal with BUN 2, creatinine 0.6. Potassium 4.1 with magnesium 2.1. -Repeat CBC, CMP, magnesium ordered for the morning Duodenitis Abdominal Pain & Vomiting - IV pantoprazole 40 mg BID for ulcer prophylaxis. - sucralfate 4 times a day -Surgery consulted to evaluate, recommend continuing conservative management. Reviewed records from [facility], has been seen recently but did not have EGD or scope. COPD Tobacco use disorder -DuoNebs scheduled every 6 hours -White count remains low at 3.3. -Stable on room air. Goal sats greater 90% Continue levothyroxine 50 mcg daily Continue Creon with meals Chronic opiate dependence, continue buprenorphine 2 tabs daily Full code Regular diet
[2024-10-10] MEDS: FUROSEMIDE 40MG/4ML VIAL 40 MG IV (13:05)
--- NOTE | 2024-10-10 15:07 | SW/DCPLANNER ---
Addendum entered by Emani Cutler 10/13/24 13:52: Patient is not able to go to [facility] today due to Gomez virus. Phoned [facility] to let them aware that he is not able to come. Susy Nunn Addendum entered by Emani Cutler 10/13/24 10:11: Sent updated clinical to [facility] to see if they can take patient. Susy Nunn Original Note: I spoke w/ this patient regarding plans once medically stable for discharge. Patient has expressed an interest in [facility]. Patient completed intake assessment w/ Collin at [facility]. [facility] has contacted back stating that patient's insurance does not cover inpatient rehabilitation BUT they would like to see if a patient a candidate for an indigent bed. [facility] stated they will return a phone call within 2-3 hours updating if patient is a candidate or not. [facility] phone [phone] fax [phone]
[2024-10-10] MEDS: PRENATAL MULTIVITAMIN W/IRON 1 EACH PO (16:30)
--- NOTE | 2024-10-10 16:44 | PC.NURSE ---
CONTACTED BY ELIE NAPOLES, NOTIFIED THAT DARIANA JOCELYN HAS DETERMINED PATIENT NOT MEDICALLY CLEARED AT THIS TIME FOR FACILITY. REPORT WILL BE FAXED ON PATIENT IN THE MORNING, AND PATIENT INFO WILL BE RE-EVALUATED AT THAT TIME.
[2024-10-10] MEDS: NICOTINE 21MG/24HR PATCH 21 MG TD (18:25)
[2024-10-11] VITALS: BP 150/82; PULSE 70; PULSE 78; RESP 17; TEMP 36.9; O2SAT 98
[2024-10-11] MEDS: diazePAM 10MG/2ML SYRINGE 5 MG IV ×5 (01:05→13:56)
[2024-10-11] MEDS: diazePAM 10MG/2ML SYRINGE 10 MG IV (03:11)
[2024-10-11 04:00] VITALS: BP 145/87; PULSE 60; PULSE 67; RESP 17; TEMP 36.7; O2SAT 97; BMI 20.5
[2024-10-11] MEDS: ONDANSETRON 4MG/2ML VIAL 4 MG IV ×2 (04:17→18:58)
--- NOTE | 2024-10-11 05:56 | PC.NURSE ---
Pt CIWA scores have ranged from 2-26 this shift and pt was treated per MAR and protocol. Pt has c/o abdominal pain this shift, and n/v and was treated Per AUG. Pt is now resting in bed, and denies needs.
[2024-10-11] MEDS: SUCRALFATE 1GM TABLET 1 GM PO ×4 (07:59→20:19)
[2024-10-11] MEDS: LIPASE/PROTEASE/AMYLASE 1 EACH CAPSULE.DR 2 EACH PO ×3 (07:59→16:54)
[2024-10-11 08:00] VITALS: BP 134/63; PULSE 78; PULSE 80; RESP 20; TEMP 36.8; O2SAT 94
[2024-10-11] MEDS: LEVOTHYROXINE 50MCG (0.05MG) TAB 50 MCG PO (08:00)
[2024-10-11] MEDS: BUPRENORPHINE/NALOXONE 8MG/2MG ODT 2 EACH SL (08:06)
[2024-10-11] MEDS: FOLIC ACID 1MG TABLET 1 MG PO (08:06)
[2024-10-11] MEDS: THIAMINE 100MG TABLET 100 MG PO (08:06)
[2024-10-11] MEDS: SODIUM CHLORIDE 0.9% 10ML VIAL 10 ML IV (08:07)
[2024-10-11] MEDS: PANTOPRAZOLE 40MG VIAL 40 MG IV (08:07)
[2024-10-11] MEDS: GABAPENTIN 100MG CAPSULE 200 MG PO ×2 (08:10→20:19)
--- NOTE | 2024-10-11 08:20 | PC.NURSE ---
Student nurseSierra will be providing care under my supervision.
[2024-10-11 08:43] LABS: Basophils % 0.6 % (0.1-2.0); Eosinophils # 0.2 Kmm3 (0.0-0.4); Eosinophils % 5.3 % (0.1-12.0); Hematocrit 39.5 % (42.0-52.0); Hemoglobin 12.6 g/dL (14.1-18.0); Lymphocytes # 1.5 K/mm3 (0.7-4.5); Lymphocytes % 40.8 % (10-50); Mean Corpuscular HGB Conc 31.9 g/dL (31.8-35.4); Mean Corpuscular Hemoglobin 30.4 pg (27.0-31.2); Mean Corpuscular Volume 95.4 fl (80-94); Mean Platelet Volume 9.5 fl (7.4-10.4); Monocytes # 0.4 K/mm3 (0.1-1.0); Monocytes % 10.6 % (1.7-9.3); Neutrophils # 1.5 K/mm3 (1.8-7.8); Neutrophils % 42.7 % (37.0-80.0); Nucleated Red Blood Cells # 0 10^3/uL; Nucleated Red Blood Cells % 0 %; Platelet Count 163 K/mm3 (142-424); Red Blood Count 4.14 M/mm3 (4.60-6.20); Red Cell Distribution Width 15.5 % (11.5-17.5); Red Cell Distribution Width-SD 54.8 fL; White Blood Count 3.6 K/mm3 (4.8-10.8)
[2024-10-11 08:55] LABS: Albumin Level 3.7 g/dl (3.5-5.0); Chloride 100 mmol/L (98-107); Potassium 3.6 mmoL/L (3.5-5.1); Sodium 136 mmol/L (136-145)
[2024-10-11 08:57] LABS: Blood Urea Nitrogen 4 mg/dl (9-20); Creatinine Clearance Estimated 111 mL/min (50-200); Estimated Glomerular Filt Rate 120 ml/min (>60); GFR (African American) 145 ML/MIN (>60)
[2024-10-11 08:58] LABS: Alanine Aminotransferase 16 U/L (12-78); Albumin/Globulin Ratio 1.1 (1.1-1.8); Alkaline Phosphatase 122 U/L (38-126); Anion Gap 10.6 mEq/L (5-15); Aspartate Amino Transferase 96 U/L (17-59); Bilirubin,Total 0.5 mg/dl (0.2-1.3); Calcium 8.8 mg/dl (8.4-10.2); Carbon Dioxide 29 mmol/L (22.0-30.0); Globulin 3.3 g/dL (1.3-3.2); Glucose 138 mg/dl (74-100)
[2024-10-11 08:59] LABS: Magnesium 1.7 mg/dl (1.6-2.3)
[2024-10-11] MEDS: FLUTICASONE/SALMETEROL 250/50MCG DISKUS 1 PUFF IH ×2 (09:15→18:46)
[2024-10-11] MEDS: ALUMINUM/MAGNESIUM/SIMETHICONE 30ML UDC 30 ML PO (10:47)
[2024-10-11 12:00] VITALS: BP 114/68; PULSE 75; PULSE 80; RESP 18; TEMP 36.7; O2SAT 93
[2024-10-11 16:00] VITALS: BP 88/56; PULSE 77; PULSE 80; RESP 20; TEMP 36.9; O2SAT 95
[2024-10-11] MEDS: PRENATAL MULTIVITAMIN W/IRON 1 EACH PO (16:54)
--- NOTE | 2024-10-11 17:01 | PC.NURSE ---
Pt is A&O x4. Pt has been emotional this shift. Has c/o RO. Visible tremors noted. Pt has been anxious. Has c/o visual and auditory hallucinations at times this shift. CIWA scoring has ranged between 5-15 this shift. Pt medicated per aug. He has been up to the chair. Has had a shower. Tolerated well. Appetite has been better this afternoon. Pt voiding per Urinal and toilet. No BM this shift. Call light within reach. Safety/Seizure protocol in place.
[2024-10-11] MEDS: MORPHINE 4MG/ML SYRINGE 4 MG IV (18:57)
[2024-10-11 20:00] VITALS: BP 122/71; PULSE 70; PULSE 77; RESP 16; TEMP 37.2; O2SAT 95
[2024-10-11] MEDS: PANTOPRAZOLE 40MG TABLET 40 MG PO (20:19)
--- NOTE | 2024-10-11 21:13 | EXP.PN ---
Subjective *Date: 10/12/24 *Time: 19:14 Interval history: Withdrawal symptoms improving. Continues to have epigastric pain likely from duodenitis, pancreatitis. Continue Protonix, Carafate, Creon. Can use GI cocktail as needed. Exam Data for Last 24 hours Vital signs and Labs for Last 24 Hours: Temp Pulse Resp BP Pulse Ox O2 Del Method 98.9 F 77 16 122/71 95 Room Air 10/11/24 20:00 10/11/24 20:00 10/11/24 20:00 10/11/24 20:00 10/11/24 20:00 10/11/24 20:00 Laboratory Results - last 24 hr 10/11/24 08:10: WBC 3.6 L, RBC 4.14 L, Hgb 12.6 L, Hct 39.5 L, MCV 95.4 H, MCH 30.4, MCHC 31.9, RDW 15.5, Plt Count 163, MPV 9.5, Neut % (Auto) 42.7, Lymph % (Auto) 40.8, [place] % (Auto) 10.6 H, Eos % (Auto) 5.3, Baso % (Auto) 0.6, Neut # (Auto) 1.5 L, Lymph # (Auto) 1.5, [place] # (Auto) 0.4, Eos # (Auto) 0.2, Baso # (Auto) 0.0, Sodium 136, Potassium 3.6, Chloride 100, Carbon Dioxide 29, Anion Gap 10.6, BUN 4 L D, Creatinine 0.70, Estimated Creat Clear 111, Estimated GFR 120, Est GFR ( Amer) 145, Glucose 138 H, Calcium 8.8, Magnesium 1.7 D, Total Bilirubin 0.5, AST 96 H, ALT 16 D, Alkaline Phosphatase 122, Total Protein 7.0, Albumin 3.7 D, Globulin 3.3 H, Albumin/Globulin Ratio 1.1 I & O for Last 24 hours: Intake & Output 10/08/24 10/09/24 10/10/24 10/11/24 23:59 23:59 23:59 23:59 Intake Total 100 / 250 870 / 1350 1580 / 1580 Output Total 1450 / 1450 1850 / 1850 500 / 500 Balance -1350 / -1200 -980 / -500 1080 / 1080 Weight 63.503 kg 63.503 kg 63.645 kg 61.507 kg Constitutional Constitutional: no acute distress *Routine HEENT Exam Head: Present normocephalic Eye: Present EOMI and PERRL ENT: Present mucous membranes moist *Routine Neck Exam Neck: Present supple; Absent lymphadenopathy *Routine Respiratory Exam Respiratory: Present CTA bilaterally *Routine Cardiovascular Exam Cardiovascular: Present RRR *Routine Abdominal Exam Abdominal: Present soft, normoactive bowel sounds and tenderness Comments: Normoactive bowel sounds and soft benign abdomen Tenderness to palpation epigastric region. *Routine Extremities Exam Extremities: Absent cyanosis, clubbing or edema *Routine Skin Exam Skin: Present warm; Absent rash *Routine Neurological Exam Neurological: Present alert Assessment and Plan *Assessment and plan (1) Alcohol withdrawal: Status: Acute Category: Medical Code(s): F10.939 - Alcohol use, unspecified with withdrawal, unspecified (2) Duodenal ulcer: Status: Acute Category: Medical Code(s): K26.9 - Duodenal ulcer, unspecified as acute or chronic, without hemorrhage or perforation (3) Hypomagnesemia: Status: Acute Category: Medical Code(s): E83.42 - Hypomagnesemia (4) Hypokalemia: Status: Acute Category: Medical Code(s): E87.6 - Hypokalemia (5) Flank pain: Status: Acute Category: Medical Code(s): R10.9 - Unspecified abdominal pain (6) PTSD (post-traumatic stress disorder): Status: Acute Category: Medical Code(s): F43.10 - Post-traumatic stress disorder, unspecified (7) Generalized anxiety disorder with panic attacks: Status: Acute Category: Medical Code(s): F41.1 - Generalized anxiety disorder; F41.0 - Panic disorder [episodic paroxysmal anxiety] (8) Major depress dis, severe: Status: Acute Category: Medical Code(s): F32.2 - Major depressive disorder, single episode, severe without psychotic features (9) Alcoholic fatty liver: Status: Acute Category: Medical Code(s): K70.0 - Alcoholic fatty liver Plan Mr. Dave is a 48-year-old male with history of alcoholism, COPD, duodenal ulcers, and esophagitis presenting with severe alcohol withdrawal and abdominal pain. Admitted for medical management of his withdrawal. CT of abdomen shows thickening of the duodenum. Acute Alcohol Withdrawal Chronic alcoholism - Continue CIWA protocol. Continue Valium per protocol. CIWA's remain in the teens - denture contour wire specialist consulted to assist with potential rehab referral and outpatient management once stable to discharge - If scores worsen for withdrawal, will consider phenobarbital. - Continue vitamins per protocol with thiamine, folate, multivitamin daily - Seizure precaution. Duodenitis Abdominal Pain & Vomiting - IV pantoprazole 40 mg BID for ulcer prophylaxis. - sucralfate 4 times a day -Surgery consulted to evaluate, recommend continuing conservative management. Reviewed records from [facility], has been seen recently but did not have EGD or scope. COPD Tobacco use disorder ?Stable. DuoNebs as needed. Continue Creon with meals Chronic opiate dependence, continue buprenorphine 2 tabs daily Full code Regular diet
[2024-10-12] VITALS (8 sets, daily range): BP systolic 96–134; BP diastolic 53–76; PULSE 70–108; RESP 16–20; TEMP 36.8–37.8; O2SAT 95–97; BMI 21.3
[2024-10-12] MEDS: ONDANSETRON 4MG/2ML VIAL 4 MG IV ×2 (02:21→08:06)
[2024-10-12] MEDS: diazePAM 10MG/2ML SYRINGE 5 MG IV ×3 (02:22→20:35)
--- NOTE | 2024-10-12 04:42 | PC.NURSE ---
Pt has rested well this shift, pt CIWAs ranged from 0-9 this shift and Pt was treated per MAR and protocol. Pt admits to feeling better this shift and denies pain.
[2024-10-12] MEDS: LIPASE/PROTEASE/AMYLASE 1 EACH CAPSULE.DR 2 EACH PO ×3 (06:33→15:54)
[2024-10-12] MEDS: SUCRALFATE 1GM TABLET 1 GM PO ×4 (06:33→20:36)
[2024-10-12] MEDS: LEVOTHYROXINE 50MCG (0.05MG) TAB 50 MCG PO (06:33)
[2024-10-12] MEDS: diazePAM 5MG TABLET 5 MG PO (06:45)
[2024-10-12] MEDS: BUPRENORPHINE/NALOXONE 8MG/2MG ODT 2 EACH SL (08:04)
[2024-10-12] MEDS: FOLIC ACID 1MG TABLET 1 MG PO (08:05)
[2024-10-12] MEDS: THIAMINE 100MG TABLET 100 MG PO (08:05)
[2024-10-12] MEDS: PANTOPRAZOLE 40MG TABLET 40 MG PO ×2 (08:05→20:36)
[2024-10-12] MEDS: NICOTINE 21MG/24HR PATCH 21 MG TD (08:06)
[2024-10-12 08:08] LABS: Basophils % 0.3 % (0.1-2.0); Eosinophils # 0.2 Kmm3 (0.0-0.4); Eosinophils % 2.5 % (0.1-12.0); Hematocrit 40.7 % (42.0-52.0); Hemoglobin 12.8 g/dL (14.1-18.0); Lymphocytes # 1.8 K/mm3 (0.7-4.5); Lymphocytes % 28.9 % (10-50); Mean Corpuscular HGB Conc 31.4 g/dL (31.8-35.4); Mean Corpuscular Hemoglobin 30.9 pg (27.0-31.2); Mean Corpuscular Volume 98.3 fl (80-94); Mean Platelet Volume 10.9 fl (7.4-10.4); Monocytes # 0.7 K/mm3 (0.1-1.0); Monocytes % 10.7 % (1.7-9.3); Neutrophils # 3.5 K/mm3 (1.8-7.8); Neutrophils % 57.3 % (37.0-80.0); Nucleated Red Blood Cells # 0 10^3/uL; Nucleated Red Blood Cells % 0 %; Platelet Count 118 K/mm3 (142-424); Red Blood Count 4.14 M/mm3 (4.60-6.20); Red Cell Distribution Width 15.8 % (11.5-17.5); Red Cell Distribution Width-SD 56.9 fL; White Blood Count 6.1 K/mm3 (4.8-10.8)
[2024-10-12] MEDS: GABAPENTIN 100MG CAPSULE 200 MG PO ×2 (08:09→20:36)
[2024-10-12] MEDS: MORPHINE 4MG/ML SYRINGE 4 MG IV (08:14)
[2024-10-12 08:22] LABS: Albumin Level 3.8 g/dl (3.5-5.0); Chloride 98 mmol/L (98-107); Sodium 136 mmol/L (136-145)
[2024-10-12 08:23] LABS: Potassium 4.2 mmoL/L (3.5-5.1)
[2024-10-12 08:25] LABS: Alanine Aminotransferase 16 U/L (12-78); Anion Gap 13.2 mEq/L (5-15); Aspartate Amino Transferase 91 U/L (17-59); Blood Urea Nitrogen 4 mg/dl (9-20); Carbon Dioxide 29 mmol/L (22.0-30.0); Creatinine Clearance Estimated 101 mL/min (50-200); Estimated Glomerular Filt Rate 103 ml/min (>60); GFR (African American) 124 ML/MIN (>60)
[2024-10-12 08:26] LABS: Albumin/Globulin Ratio 1.1 (1.1-1.8); Alkaline Phosphatase 121 U/L (38-126); Bilirubin,Total 0.5 mg/dl (0.2-1.3); Globulin 3.5 g/dL (1.3-3.2); Glucose 104 mg/dl (74-100); Total Protein,Serum 7.3 g/dl (6.3-8.2)
[2024-10-12 08:28] LABS: Magnesium 1.8 mg/dl (1.6-2.3)
[2024-10-12 08:54] LABS: Thyroid Stimulating Hormone 3.75 uIU/mL (0.465-4.68)
[2024-10-12] MEDS: FLUTICASONE/SALMETEROL 250/50MCG DISKUS 1 PUFF IH (09:03)
[2024-10-12] MEDS: POLYETHYLENE GLYCOL 3350 17 GM PACKET PO (09:10)
[2024-10-12] MEDS: BELLADONNA ALKALOIDS 60 ML ML PO (10:36)
[2024-10-12 12:31] LABS: Adenovirus,PCR Not Detected (NotDetected); Bordetella Pertussis Not Detected (NotDetected); Chlamydophila Pneumoniae, PCR Not Detected (NotDetected); Coronavirus 19, PCR Not Detected (NotDetected); Coronavirus 229E Not Detected (NotDetected); Coronavirus NL63 Not Detected (NotDetected); Coronovirus HKU1,PCR Not Detected (NotDetected); Human Metapneumovirus Not Detected (NotDetected); Influenza A, PCR Not Detected (NotDetected); Influenza AH1, 2009 Not Detected (NotDetected); Influenza AH1, PCR Not Detected (NotDetected); Influenza AH3,PCR Not Detected (NotDetected); Influenza B, PCR Not Detected (NotDetected); Mycoplasma Pneumoniae, PCR Not Detected (NotDetected); Parainfluenza 1, PCR Not Detected (NotDetected); Parainfluenza 2, PCR Not Detected (NotDetected); Parainfluenza 3, PCR Not Detected (NotDetected); Parainfluenza 4, PCR Not Detected (NotDetected); Respiratory Syncytial Virus Not Detected (NotDetected); Rhinovirus/Enterovirus Not Detected (NotDetected)
[2024-10-12] MEDS: IPRATROPIUM/ALBUTEROL 3 ML NEB IH (12:45)
[2024-10-12] MEDS: miSOPROStoL 200 MCG TABLET PO ×2 (13:15→20:36)
[2024-10-12 13:47] LABS: Coronavirus OC43 Detected (NotDetected)
[2024-10-12] MEDS: PRENATAL MULTIVITAMIN W/IRON 1 EACH PO (15:55)
--- NOTE | 2024-10-12 17:27 | PC.NURSE ---
aox4, no o2 requirement. placed in precautions r/t results of respiratory panel. has ambulated in room independently.
--- NOTE | 2024-10-12 18:07 | PC.NURSE ---
pt asleep, will give ordered cytotec when he wakes up. pt has expressed it has been difficult for him to get any rest since being admitted to the hospital.
--- NOTE | 2024-10-12 19:13 | EXP.PN ---
Subjective *Date: 10/12/24 *Time: 19:13 Interval history: Patient continues to have epigastric pain, started misoprostol. Walking hallways without issues. However, tested positive for coronavirus. Started DuoNebs every 6 hours due to increased rhonchi, wheezing today. Exam Data for Last 24 hours Vital signs and Labs for Last 24 Hours: Temp Pulse Resp BP Pulse Ox O2 Del Method 98.3 F 81 18 96/59 L 96 Room Air 10/12/24 16:00 10/12/24 16:00 10/12/24 16:00 10/12/24 16:00 10/12/24 16:00 10/12/24 18:30 Laboratory Results - last 24 hr 10/12/24 07:35: WBC 6.1 D, RBC 4.14 L, Hgb 12.8 L, Hct 40.7 L, MCV 98.3 H, MCH 30.9, MCHC 31.4 L, RDW 15.8, Plt Count 118 L D, MPV 10.9 H, Neut % (Auto) 57.3, Lymph % (Auto) 28.9, [place] % (Auto) 10.7 H, Eos % (Auto) 2.5, Baso % (Auto) 0.3, Neut # (Auto) 3.5, Lymph # (Auto) 1.8, [place] # (Auto) 0.7, Eos # (Auto) 0.2, Baso # (Auto) 0.0, Sodium 136, Potassium 4.2, Chloride 98, Carbon Dioxide 29, Anion Gap 13.2, BUN 4 L, Creatinine 0.80, Estimated Creat Clear 101, Estimated GFR 103, Est GFR ( Amer) 124, Glucose 104 H D, Calcium 9.0, Magnesium 1.8, Total Bilirubin 0.5, AST 91 H, ALT 16, Alkaline Phosphatase 121, Total Protein 7.3, Albumin 3.8, Globulin 3.5 H, Albumin/Globulin Ratio 1.1, TSH 3.75 10/12/24 12:24: Chlamy pneumoniae PCR Not detected, Adenovirus (PCR) Not detected, B. pertussis DNA (PCR) Not detected, Coronavirus OC43 (PCR) Detected A, Coronavirus HKU1 (PCR) Not detected, Coronavirus 229E (PCR) Not detected, SARS-CoV-2 (PCR) Not detected, Coronavirus NL63 (PCR) Not detected, Human Metapneumovir PCR Not detected, Influenza A (H1) PCR Not detected, Influ A (H1N1/09) PCR Not detected, Influenza A (H3) PCR Not detected, Influenza Type A (PCR) Not detected, Influenza Type B (PCR) Not detected, M. pneumoniae (PCR) Not detected, Parainfluenza 1 (PCR) Not detected, Parainfluenza 2 (PCR) Not detected, Parainfluenza 3 (PCR) Not detected, Parainfluenza 4 (PCR) Not detected, RSV (PCR) Not detected, Entero/Rhino (PCR) Not detected I & O for Last 24 hours: Intake & Output 10/09/24 10/10/24 10/11/24 10/12/24 23:59 23:59 23:59 23:59 Intake Total 100 / 250 870 / 1350 1580 / 1820 940 / 940 Output Total 1450 / 1450 1850 / 1850 500 / 500 0 / 0 Balance -1350 / -1200 -980 / -500 1080 / 1320 940 / 940 Weight 63.503 kg 63.645 kg 61.507 kg 63.82 kg Constitutional Constitutional: no acute distress *Routine HEENT Exam Head: Present normocephalic Eye: Present EOMI and PERRL ENT: Present mucous membranes moist *Routine Neck Exam Neck: Present supple; Absent lymphadenopathy *Routine Respiratory Exam Respiratory: Present CTA bilaterally *Routine Cardiovascular Exam Cardiovascular: Present RRR *Routine Abdominal Exam Abdominal: Present soft, normoactive bowel sounds and tenderness Comments: Normoactive bowel sounds and soft benign abdomen Tenderness to palpation epigastric region. *Routine Extremities Exam Extremities: Absent cyanosis, clubbing or edema *Routine Skin Exam Skin: Present warm; Absent rash *Routine Neurological Exam Neurological: Present alert Assessment and Plan *Assessment and plan (1) Alcohol withdrawal: Status: Acute Category: Medical Code(s): F10.939 - Alcohol use, unspecified with withdrawal, unspecified (2) Duodenal ulcer: Status: Acute Category: Medical Code(s): K26.9 - Duodenal ulcer, unspecified as acute or chronic, without hemorrhage or perforation (3) Hypomagnesemia: Status: Acute Category: Medical Code(s): E83.42 - Hypomagnesemia (4) Hypokalemia: Status: Acute Category: Medical Code(s): E87.6 - Hypokalemia (5) Flank pain: Status: Acute Category: Medical Code(s): R10.9 - Unspecified abdominal pain (6) PTSD (post-traumatic stress disorder): Status: Acute Category: Medical Code(s): F43.10 - Post-traumatic stress disorder, unspecified (7) Generalized anxiety disorder with panic attacks: Status: Acute Category: Medical Code(s): F41.1 - Generalized anxiety disorder; F41.0 - Panic disorder [episodic paroxysmal anxiety] (8) Major depress dis, severe: Status: Acute Category: Medical Code(s): F32.2 - Major depressive disorder, single episode, severe without psychotic features (9) Alcoholic fatty liver: Status: Acute Category: Medical Code(s): K70.0 - Alcoholic fatty liver Plan Mr. Dave is a 48-year-old male with history of alcoholism, COPD, duodenal ulcers, and esophagitis presenting with severe alcohol withdrawal and abdominal pain. Admitted for medical management of his withdrawal. CT of abdomen shows thickening of the duodenum. Acute Alcohol Withdrawal Chronic alcoholism - Continue CIWA protocol. Continue Valium per protocol. CIWA's remain in the teens - accounting specialist consulted to assist with potential rehab referral and outpatient management once stable to discharge - If scores worsen for withdrawal, will consider phenobarbital. - Continue vitamins per protocol with thiamine, folate, multivitamin daily - Seizure precaution. ? Reached out to [facility] today, willing to take patient if medically stable. Given that patient is continue to have epigastric pain, we will hold off on transferring for now. See below. Duodenitis Abdominal Pain & Vomiting - IV pantoprazole 40 mg BID for ulcer prophylaxis. - sucralfate 4 times a day ? Continues to have epigastric abdominal pain, started misoprostol 20 mg every 6 hours. -Surgery consulted to evaluate, recommend continuing conservative management. Reviewed records from [facility], has been seen recently but did not have EGD or scope. COPD Tobacco use disorder #Coronavirus ? Increased rhonchi, wheezing today. Respiratory panel positive for coronavirus. ? Started DuoNebs every 6 hours. Continue Creon with meals Chronic opiate dependence, continue buprenorphine 2 tabs daily Full code Regular diet
[2024-10-13] VITALS (11 sets, daily range): BP systolic 91–121; BP diastolic 51–73; PULSE 60–93; RESP 16–22; TEMP 36.4–36.9; O2SAT 93–97; BMI 22.3
[2024-10-13] MEDS: diazePAM 10MG/2ML SYRINGE 5 MG IV ×2 (00:42→05:36)
[2024-10-13] MEDS: IPRATROPIUM/ALBUTEROL 3 ML NEB IH ×5 (01:00→23:39)
[2024-10-13] MEDS: miSOPROStoL 200 MCG TABLET PO ×5 (01:19→23:47)
[2024-10-13] MEDS: LIPASE/PROTEASE/AMYLASE 1 EACH CAPSULE.DR 2 EACH PO ×3 (05:23→17:02)
[2024-10-13] MEDS: SUCRALFATE 1GM TABLET 1 GM PO ×4 (05:23→20:22)
[2024-10-13] MEDS: FLUTICASONE/UMECLIDIN/VILANTER 100/62.5/25MCG INHALER 1 PUFF IH (06:02)
[2024-10-13] MEDS: LEVOTHYROXINE 50MCG (0.05MG) TAB 50 MCG PO (06:07)
--- NOTE | 2024-10-13 06:28 | PC.NURSE ---
Pt is alert and oriented x4 and currently tolerating RA well. Pt CIWA scores have ranged from 1-14 this shift and pt was treated per protocol and MAR. Pt did sleep on and off throughout the shift. Pt is looking forward to going to a treatment center.
[2024-10-13 07:16] LABS: Basophils % 0.3 % (0.1-2.0); Eosinophils # 0.2 Kmm3 (0.0-0.4); Hematocrit 37.7 % (42.0-52.0); Hemoglobin 11.9 g/dL (14.1-18.0); Lymphocytes # 2.7 K/mm3 (0.7-4.5); Lymphocytes % 42.5 % (10-50); Mean Corpuscular HGB Conc 31.6 g/dL (31.8-35.4); Mean Corpuscular Hemoglobin 30.9 pg (27.0-31.2); Mean Corpuscular Volume 97.9 fl (80-94); Monocytes # 0.7 K/mm3 (0.1-1.0); Monocytes % 11.4 % (1.7-9.3); Neutrophils # 2.7 K/mm3 (1.8-7.8); Neutrophils % 42.5 % (37.0-80.0); Nucleated Red Blood Cells # 0 10^3/uL; Nucleated Red Blood Cells % 0 %; Platelet Count 80 K/mm3 (142-424); Red Blood Count 3.85 M/mm3 (4.60-6.20); Red Cell Distribution Width 15.9 % (11.5-17.5); Red Cell Distribution Width-SD 57.3 fL; White Blood Count 6.4 K/mm3 (4.8-10.8)
[2024-10-13 07:29] LABS: Magnesium 1.8 mg/dl (1.6-2.3)
[2024-10-13] MEDS: diazePAM 10MG/2ML SYRINGE 10 MG IV (07:38)
[2024-10-13] MEDS: THIAMINE 100MG TABLET 100 MG PO (08:57)
[2024-10-13] MEDS: FOLIC ACID 1MG TABLET 1 MG PO (08:57)
[2024-10-13] MEDS: POLYETHYLENE GLYCOL 3350 17 GM PACKET PO (08:58)
[2024-10-13] MEDS: BUPRENORPHINE/NALOXONE 8MG/2MG ODT 2 EACH SL (08:58)
[2024-10-13] MEDS: NICOTINE 21MG/24HR PATCH 21 MG TD (09:04)
[2024-10-13] MEDS: PANTOPRAZOLE 40MG TABLET 40 MG PO ×2 (09:05→20:22)
[2024-10-13] MEDS: GABAPENTIN 100MG CAPSULE 200 MG PO ×2 (09:05→20:22)
[2024-10-13] MEDS: VENLAFAXINE 37.5MG TABLET 37.5 MG PO ×2 (09:05→20:22)
[2024-10-13] MEDS: LACTATED RINGERS 1000ML 1,000 ML 1000 ML IV (10:20)
[2024-10-13] MEDS: BISACODYL 5MG TABLET 10 MG PO (11:45)
[2024-10-13] MEDS: MILK OF MAGNESIA 30ML UDC 30 ML PO (11:45)
--- NOTE | 2024-10-13 12:30 | DIET.NUTRFU ---
Reported no BM since admit, miralax was started yesterday, additional meds added today, meal intake has been good on regular diet
[2024-10-13] MEDS: ONDANSETRON 4MG/2ML VIAL 4 MG IV (13:43)
[2024-10-13] MEDS: ALUMINUM/MAGNESIUM/SIMETHICONE 30ML UDC 30 ML PO (15:20)
[2024-10-13] MEDS: diazePAM 5MG TABLET 5 MG PO ×2 (15:20→22:25)
[2024-10-13] MEDS: PRENATAL MULTIVITAMIN W/IRON 1 EACH PO (17:06)
--- NOTE | 2024-10-13 17:24 | PEERSUPPORT ---
Peer Support Note Patient Information Patient Information: DOS: 10/13/2024 ? Reason: ETOH Ps follow up ? Pt stated he is going to [facility]. -Tested positive for gallagher. -Ate two bites of toast and jelly at breakfast then had a spell this morning, running a temperature, vomiting, and violent shaking. Was given medications that brought him ease and comfort. -Having hallucinations: cat in his room, elderly man appearing in various places making him paranoid. Pt is not feared of this as he is aware of alcohol withdrawal, stated his worse day seems to on the fifth and sixth day. -Hearing voices, as if conversations with former friends from high school. -Hearing voices from restroom: frustrating him. He has spoken back to these, telling them to stop it since then they have silenced. ? Pt is able to identify thoughts to leave and awareness of his choice to stay knowing he is going to [facility] to get the care he needs. ? Ps and pt briefly discussed effects of alcohol on the physical, mental, emotional, and spiritual self-normalizing his experiences currently emphasizing importance of commitment to maintaining sobriety to have betterment of life overall for self and others. ? Pt is receptive and understanding saying he is going to treatment for himself because he needs and wants to. ? Support System: -Judie: employer/friend. Willing to secure his employment until he is well and very supportive of him going to treatment. -Landlord/friend: Affirmed him he would keep an eye on his house and mow the yard. -Kristen/daughter: estranged for some time, spoke to pt on nurses phone encouraging him to go to treatment in hopes for a restored relationship. -[facility]: Recovery home place for many years. ? Plan of action: -Stay at [facility] until medically cleared to transport to [facility]. -Ps will follow up with pt on 10/14/2024 @ 10:30am. -Write numbers from his cell phone contacts to have while inpatient. -
--- NOTE | 2024-10-13 17:53 | PC.NURSE ---
Patient is A&Ox4. Vital signs stable tolerating room air. CIWA scores completed today per protocol. Scores ranged from 1-28 today. Treated per AUG. Pt has been very anxious and worried about discharge. Plan is for pt to go to [facility]. He is agreeable. Pt complains of nausea, vomiting, and abdominal pain. Treated per AUG. Pt lying supine in bed comfortably with no further complaints voiced at this time. Call light within reach.
--- NOTE | 2024-10-13 21:58 | P.PN_ITS ---
Subjective *Date: 10/13/24 *Time: 21:58 Interval history: Patient apparently had a CIWA of 26, given Valium with improvement in symptoms. Has been stable the rest the day. Does have ongoing epigastric pain, had 2 episodes of nausea/vomiting though more likely related to coronavirus and duodenitis. Anticipate discharge to [facility] if improved tomorrow. Exam Data for Last 24 hours Vital signs and Labs for Last 24 Hours: Temp Pulse Resp BP Pulse Ox O2 Del Method 97.5 F L 69 22 97/62 L 93 L Room Air 10/13/24 20:00 10/13/24 20:00 10/13/24 20:00 10/13/24 20:00 10/13/24 20:00 10/13/24 21:00 Laboratory Results - last 24 hr 10/13/24 06:30: WBC 6.4, RBC 3.85 L, Hgb 11.9 L, Hct 37.7 L, MCV 97.9 H, MCH 30.9, MCHC 31.6 L, RDW 15.9, Plt Count 80 L D, MPV 13.0 H, Neut % (Auto) 42.5, Lymph % (Auto) 42.5, [facility] % (Auto) 11.4 H, Eos % (Auto) 3.0, Baso % (Auto) 0.3, Neut # (Auto) 2.7, Lymph # (Auto) 2.7, [facility] # (Auto) 0.7, Eos # (Auto) 0.2, Baso # (Auto) 0.0, Magnesium 1.8 I & O for Last 24 hours: Intake & Output 10/10/24 10/11/24 10/12/24 10/13/24 23:59 23:59 23:59 23:59 Intake Total 870 / 1350 1580 / 1820 940 / 1300 960 / 960 Output Total 1850 / 1850 500 / 500 0 / 0 0 / 0 Balance -980 / -500 1080 / 1320 940 / 1300 960 / 960 Weight 63.645 kg 61.507 kg 63.82 kg 66.905 kg Constitutional Constitutional: no acute distress *Routine HEENT Exam Head: Present normocephalic Eye: Present EOMI and PERRL ENT: Present mucous membranes moist *Routine Neck Exam Neck: Present supple; Absent lymphadenopathy *Routine Respiratory Exam Respiratory: Present CTA bilaterally *Routine Cardiovascular Exam Cardiovascular: Present RRR *Routine Abdominal Exam Abdominal: Present soft, normoactive bowel sounds and tenderness Comments: Normoactive bowel sounds and soft benign abdomen Tenderness to palpation epigastric region. *Routine Extremities Exam Extremities: Absent cyanosis, clubbing or edema *Routine Skin Exam Skin: Present warm; Absent rash *Routine Neurological Exam Neurological: Present alert Assessment and Plan *Assessment and plan (1) Alcohol withdrawal: Status: Acute Category: Medical Code(s): F10.939 - Alcohol use, unspecified with withdrawal, unspecified (2) Duodenal ulcer: Status: Acute Category: Medical Code(s): K26.9 - Duodenal ulcer, unspecified as acute or chronic, without hemorrhage or perforation (3) Hypomagnesemia: Status: Acute Category: Medical Code(s): E83.42 - Hypomagnesemia (4) Hypokalemia: Status: Acute Category: Medical Code(s): E87.6 - Hypokalemia (5) Flank pain: Status: Acute Category: Medical Code(s): R10.9 - Unspecified abdominal pain (6) PTSD (post-traumatic stress disorder): Status: Acute Category: Medical Code(s): F43.10 - Post-traumatic stress disorder, unspecified (7) Generalized anxiety disorder with panic attacks: Status: Acute Category: Medical Code(s): F41.1 - Generalized anxiety disorder; F41.0 - Panic disorder [episodic paroxysmal anxiety] (8) Major depress dis, severe: Status: Acute Category: Medical Code(s): F32.2 - Major depressive disorder, single episode, severe without psychotic features (9) Alcoholic fatty liver: Status: Acute Category: Medical Code(s): K70.0 - Alcoholic fatty liver Plan Mr. Dave is a 48-year-old male with history of alcoholism, COPD, duodenal ulcers, and esophagitis presenting with severe alcohol withdrawal and abdominal pain. Admitted for medical management of his withdrawal. CT of abdomen shows thickening of the duodenum. Acute Alcohol Withdrawal Chronic alcoholism - Continue CIWA protocol. Continue Valium per protocol. CIWA's remain in the teens - records management specialist consulted to assist with potential rehab referral and outpatient management once stable to discharge - If scores worsen for withdrawal, will consider phenobarbital. - Continue vitamins per protocol with thiamine, folate, multivitamin daily - Seizure precaution. ?Patient had 2 episodes of nausea/vomiting today, likely related to duodenitis and coronavirus. Will hold off on transfer to [facility] at this time. Duodenitis Abdominal Pain & Vomiting - IV pantoprazole 40 mg BID for ulcer prophylaxis. - sucralfate 4 times a day ? Continues to have epigastric abdominal pain but improved, continue misoprostol 20 mg every 6 hours. -Surgery consulted to evaluate, recommend continuing conservative management. Reviewed records from [facility], has been seen recently but did not have EGD or scope. COPD Tobacco use disorder #Coronavirus ? Increased rhonchi, wheezing today. Respiratory panel positive for coronavirus. ? Started DuoNebs every 6 hours. Continue Creon with meals Chronic opiate dependence, continue buprenorphine 2 tabs daily Full code Regular diet
[2024-10-14] VITALS: BP 106/60; PULSE 60; PULSE 66; RESP 17; TEMP 36.5; O2SAT 94
[2024-10-14 04:00] VITALS: BP 119/72; PULSE 65; PULSE 70; RESP 16; TEMP 36.6; O2SAT 95; BMI 22.3
[2024-10-14] MEDS: FLUTICASONE/UMECLIDIN/VILANTER 100/62.5/25MCG INHALER 1 PUFF IH (05:39)
[2024-10-14] MEDS: IPRATROPIUM/ALBUTEROL 3 ML NEB IH (05:39)
[2024-10-14 05:40] VITALS: PULSE 71; PULSE 75
[2024-10-14] MEDS: SUCRALFATE 1GM TABLET 1 GM PO ×2 (06:12→12:05)
[2024-10-14] MEDS: LEVOTHYROXINE 50MCG (0.05MG) TAB 50 MCG PO (06:12)
[2024-10-14] MEDS: miSOPROStoL 200 MCG TABLET PO ×2 (06:12→12:11)
[2024-10-14] MEDS: LIPASE/PROTEASE/AMYLASE 1 EACH CAPSULE.DR 2 EACH PO ×2 (06:12→12:05)
[2024-10-14] MEDS: diazePAM 5MG TABLET 5 MG PO (06:20)
[2024-10-14 06:23] LABS: Chloride 100 mmol/L (98-107)
[2024-10-14 06:24] LABS: Albumin Level 3.5 g/dl (3.5-5.0); Basophils % 0.4 % (0.1-2.0); Eosinophils # 0.3 Kmm3 (0.0-0.4); Hematocrit 37.6 % (42.0-52.0); Hemoglobin 11.8 g/dL (14.1-18.0); Lymphocytes # 1.6 K/mm3 (0.7-4.5); Lymphocytes % 33.3 % (10-50); Mean Corpuscular HGB Conc 31.4 g/dL (31.8-35.4); Mean Corpuscular Hemoglobin 30.6 pg (27.0-31.2); Mean Corpuscular Volume 97.7 fl (80-94); Mean Platelet Volume 11.4 fl (7.4-10.4); Monocytes # 0.5 K/mm3 (0.1-1.0); Monocytes % 10.4 % (1.7-9.3); Neutrophils # 2.4 K/mm3 (1.8-7.8); Neutrophils % 49.7 % (37.0-80.0); Nucleated Red Blood Cells # 0 10^3/uL; Nucleated Red Blood Cells % 0 %; Platelet Count 120 K/mm3 (142-424); Potassium 4.7 mmoL/L (3.5-5.1); Red Blood Count 3.85 M/mm3 (4.60-6.20); Red Cell Distribution Width 15.6 % (11.5-17.5); Red Cell Distribution Width-SD 57.1 fL; Sodium 136 mmol/L (136-145); White Blood Count 4.8 K/mm3 (4.8-10.8)
[2024-10-14 06:26] LABS: Alanine Aminotransferase 10 U/L (12-78); Anion Gap 8.7 mEq/L (5-15); Aspartate Amino Transferase 52 U/L (17-59); Blood Urea Nitrogen 10 mg/dl (9-20); Carbon Dioxide 32 mmol/L (22.0-30.0); Creatinine Clearance Estimated 121 mL/min (50-200); Estimated Glomerular Filt Rate 120 ml/min (>60); GFR (African American) 145 ML/MIN (>60)
[2024-10-14 06:27] LABS: Alkaline Phosphatase 110 U/L (38-126); Bilirubin,Total 0.4 mg/dl (0.2-1.3); Calcium 8.9 mg/dl (8.4-10.2); Globulin 3.4 g/dL (1.3-3.2); Glucose 97 mg/dl (74-100); Total Protein,Serum 6.9 g/dl (6.3-8.2)
--- NOTE | 2024-10-14 06:35 | PC.NURSE ---
Pt A&OX4 and has tolerated room air. VSS. He has remained NSR on tele. CIWAs completed per protocol. He has remained of droplet precaution for Coronavirus. Currently resting in bed with call light within reach.
[2024-10-14 07:19] LABS: Magnesium 1.9 mg/dl (1.6-2.3)
[2024-10-14 07:35] VITALS: BP 101/53; PULSE 74; RESP 16; TEMP 36.6; O2SAT 96
[2024-10-14 08:00] VITALS: PULSE 70
[2024-10-14] MEDS: POLYETHYLENE GLYCOL 3350 17 GM PACKET PO (08:47)
[2024-10-14] MEDS: VENLAFAXINE 37.5MG TABLET 37.5 MG PO (08:48)
[2024-10-14] MEDS: PANTOPRAZOLE 40MG TABLET 40 MG PO (08:48)
[2024-10-14] MEDS: FOLIC ACID 1MG TABLET 1 MG PO (08:48)
[2024-10-14] MEDS: THIAMINE 100MG TABLET 100 MG PO (08:48)
[2024-10-14] MEDS: BUPRENORPHINE/NALOXONE 8MG/2MG ODT 2 EACH SL (08:49)
[2024-10-14] MEDS: GABAPENTIN 100MG CAPSULE 200 MG PO (08:54)
[2024-10-14] MEDS: NICOTINE 21MG/24HR PATCH 21 MG TD (09:00)
--- NOTE | 2024-10-14 11:06 | P.DS_ITS ---
General Admission date:: 10/09/24 HPI HPI HPI: Patient is 48-year-old male from [place] with reported history of alcohol abuse/dependence, tobacco abuse/dependence, drug abuse/dependence, history of recurrent ulcer disease. He had been seen in November 2023 with symptoms of melena and he underwent EGD which revealed moderately severe diffuse gastritis, moderately severe duodenitis, multiple duodenal ulcers in the second portion of the duodenum. Patient ultimately was able to be discharged. However, he did not follow-up after his hospitalization. He presented to the emergency department on 03/13/2024 with symptoms of coffee- ground emesis and maroon-colored stool with epigastric tenderness. He underwent EGD on 03/14/2024 which revealed small sliding hiatal hernia and some diffuse gastritis with moderate duodenitis but most notable was a 1 cm inflamed post bulbar duodenal ulcer without active bleeding but some minimal stigmata of recent bleeding. Intervention with epinephrine injection was performed. Patient was ultimately discharged. He did not follow-up after his hospitalization. Of note, patient had a prior history of GI blood loss in August 2019 which was managed as an inpatient at which time he underwent EGD which revealed a large moderately deep gastric antral ulcer along with duodenitis as well as a duodenal ulcer in the second portion of the duodenum. Patient did actually undergo follow-up upper endoscopy as an outpatient after medical treatment in November 2019 which revealed completely healed duodenal ulcers. Patient apparently had a recent prolonged hospitalization at [facility] but exact details are unknown at this time. He presented to the emergency department at [facility] in the late evening of 10/08/24 with epigastric abdominal pain, left flank pain, nausea, vomiting. Part of his workup included CT scan which revealed findings of focal inflammatory change abutting the second portion of the duodenum without significant wall thickening and also abutting the head of the pancreas. Differential was felt to include groove pancreatitis versus duodenitis or inflamed duodenal ulcer. He was admitted for inpatient management and surgical consultation. Hospital Course Hospital Course Hospital Course: Brandon Dave is a 48-year-old male who was admitted for alcohol withdrawal. Hospital course was complicated by COPD exacerbation, coronavirus. #Alcohol use disorder #Alcohol withdrawal ? CIWA virtually normal today. ? Gradually improved with diazepam as needed. ? Peer support consulted, Moon was invaluable with talking to patient through withdrawal, and coordinating with [facility] inpatient rehab. [facility] graciously accepted patient for alcohol use disorder. ? Discharged with gabapentin 200 mg twice daily, folic acid, multivitamins. Will avoid naltrexone given concomitant Suboxone for opioid use disorder. #Esophagitis/gastritis/duodenitis #History of duodenal ulcer #Globus sensation ? Previous EGD revealed clean-based ulcer s/p Endo Clip placement. ? Unfortunately, patient continues to drink in the setting of depression/anxiety and has was drinking 15-20 shots of fireball a day likely significantly exacerbating underlying gastritis/duodenitis. ? Patient had moderate epigastric pain throughout hospital course, which gradually improved after restarting Protonix 40 mg twice daily, misoprostol 200 mg every 6 hours, and starting sucralfate with meals. ? GI advised patient is having globus sensation with swallowing. Not a stricture, no plans for EGD. #COPD exacerbation #Coronavirus OC43 ? Improved with breathing treatments and levofloxacin. ? Discharged with doxycycline, prednisone for 4 more days. #Opioid use disorder ? Continue Suboxone. #Pancreatic insufficiency ? 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 ? Continue Creon with meals. #Anxiety/depression ? Patient lost his significant other and mother over the past 2 years, continues to have grief and depression from this. ? Unfortunately uses alcohol as therapy. ? Behavioral health previously recommending restarting Effexor 37.5 mg twice daily, which was restarted during admission. Total time spent on discharge: 35 minutes on chart review, counseling, documentation, and direct care with patient. Exam Data for Last 24 hours Vital signs and Labs for Last 24 Hours: Temp Pulse Resp BP Pulse Ox O2 Del Method 97.8 F 70 16 101/53 L 96 Room Air 10/14/24 07:35 10/14/24 08:00 10/14/24 07:35 10/14/24 07:35 10/14/24 07:35 10/14/24 07:35 Laboratory Results - last 24 hr 10/14/24 05:54: WBC 4.8, RBC 3.85 L, Hgb 11.8 L, Hct 37.6 L, MCV 97.7 H, MCH 30.6, MCHC 31.4 L, RDW 15.6, Plt Count 120 L D, MPV 11.4 H, Neut % (Auto) 49.7, Lymph % (Auto) 33.3, Linn % (Auto) 10.4 H, Eos % (Auto) 6.0, Baso % (Auto) 0.4, Neut # (Auto) 2.4, Lymph # (Auto) 1.6, Linn # (Auto) 0.5, Eos # (Auto) 0.3, Baso # (Auto) 0.0, Sodium 136, Potassium 4.7, Chloride 100, Carbon Dioxide 32 H, Anion Gap 8.7, BUN 10 D, Creatinine 0.70, Estimated Creat Clear 121, Estimated GFR 120, Est GFR ( Amer) 145, Glucose 97, Calcium 8.9, Magnesium 1.9, Total Bilirubin 0.4, AST 52 D, ALT 10 L D, Alkaline Phosphatase 110, Total Protein 6.9, Albumin 3.5, Globulin 3.4 H, Albumin/Globulin Ratio 1.0 L I & O for Last 24 hours: Intake & Output 10/11/24 10/12/24 10/13/24 10/14/24 23:59 23:59 23:59 23:59 Intake Total 1580 / 1820 940 / 1300 960 / 1310 350 / 350 Output Total 500 / 500 0 / 0 0 / 200 200 / 200 Balance 1080 / 1320 940 / 1300 960 / 1110 150 / 150 Weight 61.507 kg 63.82 kg 66.905 kg 66.905 kg Constitutional Constitutional: no acute distress *Routine HEENT Exam Head: Present normocephalic Eye: Present EOMI and PERRL ENT: Present mucous membranes moist *Routine Neck Exam Neck: Present supple; Absent lymphadenopathy *Routine Respiratory Exam Respiratory: Present CTA bilaterally *Routine Cardiovascular Exam Cardiovascular: Present RRR *Routine Abdominal Exam Abdominal: Present soft, normoactive bowel sounds and tenderness Comments: Normoactive bowel sounds and soft benign abdomen Tenderness to palpation epigastric region. *Routine Extremities Exam Extremities: Absent cyanosis, clubbing or edema *Routine Skin Exam Skin: Present warm; Absent rash *Routine Neurological Exam Neurological: Present alert Results Data Completed and Pending Labs on day of discharge: Labs from last 24 hours 10/14/24 05:54 WBC 4.8 RBC 3.85 L Hgb 11.8 L Hct 37.6 L MCV 97.7 H MCH 30.6 MCHC 31.4 L RDW 15.6 Plt Count 120 L D MPV 11.4 H Neut % (Auto) 49.7 Lymph % (Auto) 33.3 Linn % (Auto) 10.4 H Eos % (Auto) 6.0 Baso % (Auto) 0.4 Neut # (Auto) 2.4 Lymph # (Auto) 1.6 Linn # (Auto) 0.5 Eos # (Auto) 0.3 Baso # (Auto) 0.0 Sodium 136 Potassium 4.7 Chloride 100 Carbon Dioxide 32 H Anion Gap 8.7 BUN 10 D Creatinine 0.70 Estimated Creat Clear 121 Estimated GFR 120 Est GFR ( Amer) 145 Glucose 97 Calcium 8.9 Magnesium 1.9 Total Bilirubin 0.4 AST 52 D ALT 10 L D Alkaline Phosphatase 110 Total Protein 6.9 Albumin 3.5 Globulin 3.4 H Albumin/Globulin Ratio 1.0 L DS: Diagnosis Discharge Diagnosis (1) Alcohol withdrawal: Status: Acute Code(s): F10.939 - Alcohol use, unspecified with withdrawal, unspecified (2) Duodenal ulcer: Status: Acute Code(s): K26.9 - Duodenal ulcer, unspecified as acute or chronic, without hemorrhage or perforation (3) Hypomagnesemia: Status: Acute Code(s): E83.42 - Hypomagnesemia (4) Hypokalemia: Status: Acute Code(s): E87.6 - Hypokalemia (5) Flank pain: Status: Acute Code(s): R10.9 - Unspecified abdominal pain (6) PTSD (post-traumatic stress disorder): Status: Acute Code(s): F43.10 - Post-traumatic stress disorder, unspecified (7) Generalized anxiety disorder with panic attacks: Status: Acute Code(s): F41.1 - Generalized anxiety disorder; F41.0 - Panic disorder [episodic paroxysmal anxiety] (8) Major depress dis, severe: Status: Acute Code(s): F32.2 - Major depressive disorder, single episode, severe without psychotic features (9) Alcoholic fatty liver: Status: Acute Code(s): K70.0 - Alcoholic fatty liver Meds Home Medications and Allergies Home Medications ?Medication ?Instructions ?Recorded ?Confirmed ?Type ipratropium 0.5 mg-albuterol 3 mg 3 ml inhalation Q6HP PRN shortness 04/15/24 10/09/24 Rx (2.5 mg base)/3 mL nebulization of breath or wheezing 30 days #180 soln mL multivitamin 1 tab PO DAILY #30 tabs 08/08/24 10/09/24 Rx polyethylene glycol 3350 17 17 g PO DAILY 30 days #510 grams 08/08/24 10/09/24 Rx gram/dose oral powder albuterol sulfate 90 mcg/actuation 2 puff inhalation Q6HP PRN 10/14/24 Rx aerosol inhaler shortness of breath or wheezing #8.5 grams buprenorphine 8 mg-naloxone 2 mg 2 tab sublingual DAILY 14 days #28 10/14/24 Rx sublingual tablet tabs doxycycline hyclate 100 mg tablet 100 mg PO BID 4 days #8 tabs 10/14/24 Rx fluticasone fur. 100 mcg-umeclid 1 inh inhalation DAILY 30 days #60 10/14/24 Rx 62.5 mcg-vilant 25 mcg ea inhalat.powder (Trelegy Ellipta) folic acid 1 mg tablet 1 mg PO DAILY 30 days #30 tabs 10/14/24 Rx gabapentin 100 mg capsule 200 mg (2 x 100 mg) PO BID 30 days 10/14/24 Rx #120 caps levothyroxine 25 mcg tablet 50 mcg (2 x 25 mcg) PO DAILYDM 30 10/14/24 Rx (Synthroid) days #60 tabs srxfeh-lwnkouaz-djfoxjh 2 cap PO AC 30 days #180 caps 10/14/24 Rx 36,000-114,000-180,000 unit capsule,delay rel (Creon) misoprostol 200 mcg tablet 200 mcg PO BID 30 days #60 tabs 10/14/24 Rx pantoprazole 40 mg tablet,delayed 40 mg PO BID 30 days #60 tabs 10/14/24 Rx release prednisone 20 mg tablet 40 mg (2 x 20 mg) PO DAILY 4 days 10/14/24 Rx #8 tabs sucralfate 1 gram tablet 1 g PO ACHS 30 days #120 tabs 10/14/24 Rx thiamine HCl (vitamin B1) 100 mg 100 mg PO DAILY #30 tabs 10/14/24 Rx tablet venlafaxine 37.5 mg tablet 37.5 mg PO BID 30 days #60 tabs 10/14/24 Rx New Prescriptions to Start Prescriptions: albuterol sulfate Facundo Silver buprenorphine-naloxone Facundo Silver doxycycline hyclate Nadeem,Facundo [id number] [Trelegy Ellipta] Nadeem,Facundo folic acid Nadeem,Facundo gabapentin Nadeem,Facundo levothyroxine [Synthroid] Nadeem,Facundo qmyhrb-[id number] [Creon] Nadeem,Facundo misoprostol Nadeem,Facundo pantoprazole Nadeem,Facundo prednisone Nadeem,Facundo sucralfate Nadeem,Facundo thiamine HCl (vitamin B1) Nadeem,Facundo venlafaxine Nadeem,Facundo Allergies Allergy/AdvReac Type Severity Reaction Status Date / Time aspirin (ASPIRIN) Allergy Unknown Nose Bleed Verified 08/14/24 12:51 cephalexin (From Keflex) Allergy Gastrointestinal Verified 08/14/24 12:51 Upset piperacillin (From Zosyn) Allergy Hives Verified 08/14/24 12:51 tazobactam (From Zosyn) Allergy Hives Verified 08/14/24 12:51 Discharge Plan Disposition Patient Disposition: Home, Self-Care Condition: Fair Discharge Order Discharge Orders: Discharge Order (Routine); Ordered 10/14/24 Ordered By: Facundo Silver Follow up Plan Follow up with: Tim Rey MD [Primary Care Provider] - 10/21/24 3:00 pm Prescriptions/Medication Reconciliation: New sucralfate 1 gram Tablet 1 g PO ACHS 30 Days Qty: 120 0RF venlafaxine 37.5 mg Tablet 37.5 mg PO BID 30 Days Qty: 60 0RF Trelegy Ellipta 100-62.5-25 mcg Blister With Device 1 inh inhalation DAILY 30 Days Qty: 60 0RF prednisone 20 mg Tablet 40 mg PO DAILY 4 Days Qty: 8 0RF doxycycline hyclate 100 mg Tablet 100 mg PO BID 4 Days Qty: 8 0RF Continued ipratropium-albuterol 0.5 mg-3 mg(2.5 mg base)/3 mL Solution For Nebulization 3 ml inhalation Q6HP PRN (Reason: shortness of breath or wheezing) 30 Days Qty: 180 0RF polyethylene glycol 3350 17 gram/dose powder 17 g PO DAILY 30 Days Qty: 510 0RF multivitamin Tablet 1 tab PO DAILY Qty: 30 0RF thiamine HCl (vitamin B1) 100 mg tablet 100 mg PO DAILY Qty: 30 0RF levothyroxine [Synthroid] 25 mcg Tablet 50 mcg PO DAILYDM 30 Days Qty: 60 0RF pantoprazole 40 mg tablet,delayed release (DR/EC) 40 mg PO BID 30 Days Qty: 60 0RF misoprostol 200 mcg Tablet 200 mcg PO BID 30 Days Qty: 60 0RF folic acid 1 mg Tablet 1 mg PO DAILY 30 Days Qty: 30 0RF gabapentin 100 mg Capsule 200 mg PO BID 30 Days Qty: 120 0RF albuterol sulfate 90 mcg/actuation HFA aerosol inhaler 2 puff inhalation Q6HP PRN (Reason: shortness of breath or wheezing) Qty: 8.5 3RF buprenorphine-naloxone 8-2 mg tablet, sublingual 2 tab sublingual DAILY 14 Days Qty: 28 0RF Rx Instructions: VERIFIED WITH PHARMACY Creon 36,000-114,000- 180,000 unit Capsule,Delayed Release(Dr/Ec) 2 cap PO AC 30 Days Qty: 180 0RF Discontinued fluticasone propion-salmeterol [Advair Diskus] 250-50 mcg/dose blister with device 1 inh inhalation BID 30 Days Qty: 60 0RF Problem Reconciliation Problems Reviewed?: Yes Patient Discharge Instructions Patient Instructions: Alcohol and Stress: There are Safer Ways to [place], Duodenal Ulcer, DI for Abdominal Pain-Adult, DI for Hypokalemia, DI for Drug or Alcohol Withdrawal, DI for Hypomagnesemia, Stop Light Pneumonia Print Language: [place]ian Providers Primary Care Provider: Tim Rey Admit Provider: Michael Bernstein Attending Provider: Michael Bernstein
[2024-10-14 12:00] VITALS: BP 107/54; PULSE 72; RESP 17; TEMP 36.6; O2SAT 94
[2024-10-14] MEDS: DOXYCYCLINE HYCL 100 MG TABLET PO (12:05)
--- NOTE | 2024-10-15 10:44 | SW/DCPLANNER ---
phoned patient and went to voice mail. Not sure if it was the right number did not leave message. Patient did go to [facility] for treatment. Susy Nunn
== END 2024-10-14 13:40 | disposition other institution (70) | DRG 384 ==
LOC: ER 21:02 → 2ND 23:13
PROVIDERS: Nurse Practitioner Family; Physician Assistant; Student in an Organized Health Care Education/Training Program; Admitting Provider Internal Medicine Adolescent Medicine; Emergency Provider Student in an Organized Health Care Education/Training Program; PCP Family Medicine; Visit Provider Internal Medicine Adolescent Medicine
DX: K26.9 Duodenal ulcer, unspecified as acute or chronic, without hemorrhage or perforation (principal); F10.939 Alcohol use, unspecified with withdrawal, unspecified; F32.2 Major depressive disorder, single episode, severe without psychotic features; E46 Unspecified protein-calorie malnutrition; E87.6 Hypokalemia; E83.42 Hypomagnesemia; F43.10 Post-traumatic stress disorder, unspecified; F41.0 Panic disorder [episodic paroxysmal anxiety]; F17.210 Nicotine dependence, cigarettes, uncomplicated; Z88.8 Allergy status to other drugs, medicaments and biological substances; Z88.1 Allergy status to other antibiotic agents; Z88.6 Allergy status to analgesic agent; E03.9 Hypothyroidism, unspecified; Z79.899 Other long term (current) drug therapy; Z79.891 Long term (current) use of opiate analgesic; K70.0 Alcoholic fatty liver; Z68.22 Body mass index [BMI] 22.0-22.9, adult; Z87.820 Personal history of traumatic brain injury
CPT/HCPCS: 36415; 74177; 80053; 80307; 80320; 81001; 82150; 82247; 82248; 83605; 83690; 83735; 83880; 84100; 84145; 84443; 85025; 85610; 85730; 87633; 94640; 97116; 97163; 97166; 97530; 99291; J0574; J1938; J2270; J2405; J3360; J3411; J3475; J7030; J7120; J7620; Q9967

== ENCOUNTER 2024-12-01 16:25 | Inpatient (IN) | payer MEDICARE, MEDICAID, SELFPAY ==
--- OUTSIDE RECORDS SUMMARY | 2024-10-26 12:59 | XMS_ITS | Encounter Summary ---
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 of fireball a day I reviewed the HPI, ROS and PFSH documentation recorded by others in the medical record and supplemented my note as needed. Review of Systems Review of Systems Physical Exam ED Triage Vitals [10/26/24 1256] Encounter Vitals Group BP 108/65 Systolic BP Percentile Diastolic BP Percentile Pulse 70 Resp 16 Temp 98.2 ??F (36.8 ??C) Temp src Oral SpO2 97 % Weight 65.8 kg (145 lb) Height 1.727 m (5' 8 ) Head Circumference Peak Flow Pain Score Nine Pain Loc Pain Education Exclude from Growth Chart Physical Exam HENT: Head: Normocephalic. Cardiovascular: Rate and Rhythm: Normal rate and regular rhythm. Heart sounds: Normal heart sounds. Pulmonary: Effort: Pulmonary effort is normal. Breath sounds: Normal breath sounds. Abdominal: Palpations: Abdomen is soft. Tenderness: There is no abdominal tenderness. There is no guarding. Musculoskeletal: Comments: Generalized tremors. No midline TTP of cervical, thoracic spine. Diffuse midline TTP of lumbar spine. No vertebral point tenderness or step-offs noted. NVI with palpable distal pulses in BUE and BLE. Generalized tremors Skin: General: Skin is warm. Neurological: Mental Status: He is alert and oriented to person, place, and time. Cranial Nerves: No cranial nerve deficit. Psychiatric: Mood and Affect: Mood is anxious. Neurological Exam Mental Status Alert. Oriented to person, place, and time. Ortho Exam ED Course & MDM Medications PHENobarbitaL injection 130 mg (130 mg intravenous Given 10/26/242034) albuterol inhaler 1 puff (has no administration in time range) buprenorphine-naloxone (SUBOXONE) 2-0.5 mg SL tablet 8 tablet (has no administration in time range) pantoprazole (PROTONIX) injection 40 mg (40 mg intravenous Given 10/26/242034) enoxaparin (LOVENOX) syringe 40 mg (40 mg subcutaneous Given 10/26/242034) ipratropium-albuteroL (DUO-NEB) 0.5 mg-3 mg(2.5 mg base)/3 mL nebulizer solution 3 mL (has no administration in time range) LORazepam (ATIVAN) injection 2 mg (2 mg intravenous Given 10/26/24 1431) lactated ringers (LR) bolus 1,000 mL (0 mLs intravenous IVPB Stopped 10/26/24 181) sodium chloride 0.9 % (NS) 1,000 mL with magnesium sulfate 2 g, MVI, adult 10 mL, folic acid 1 mg, thiamine 100 mg infusion ( intravenous Given 10/26/24 1700) PHENobarbitaL injection 650 mg (650 mg intravenous Given 10/26/24 1659) Results for orders placed or performed during the hospital encounter of 10/26/24 CBC with Auto Diff Result Value Ref Range WBC 6.8 4.0 - 10.5 K/??L RBC 4.18 (L) 4.70 - 6.00 M/??L Hemoglobin 12.5 (L) 13.2 - 18.0 GM/DL Hematocrit 40.1 (L) 42.0 - 52.0 % MCV 96 78 - 100 fL MCH 29.9 27.0 - 31.0 pg MCHC 31.2 (L) 32.0 - 36.0 GM/DL RDW 15.3 (H) 11.5 - 14.0 % Platelets 220 150 - 400 K/CU MM MPV 10.6 (H) 6.0 - 9.5 fL Nucleated Red Blood Cell 0.0 0 - 0.2 % % Neutros 51 41 - 80 % % Lymphs 33 15 - 48 % % Monos 9 0 - 12 % % Eos 6 (H) 0 - 5 % % Baso 1 0 - 2 % # Neutros 3.45 1.56 - 6.13 K/??L # Lymphs 2.23 K/??L # Monos 0.59 0.24 - 0.86 K/??L # Eos 0.38 0.04 - 0.54 K/??L # Baso 0.07 0.01 - 0.08 K/??L Immature Granulocytes-Relative 0.40 0.00 - 0.60 % # IG 0.03 0.00 - 0.05 K/uL Comprehensive metabolic panel Result Value Ref Range Sodium 139 136 - 145 meq/L Potassium 4.3 3.5 - 5.1 meq/L Chloride 101 98 - 107 meq/L CO2 30 21 - 32 meq/L Calcium 9.4 8.5 - 10.1 mg/dL Glucose 104 74 - 106 mg/dL BUN 12 7 - 18 mg/dL Creatinine 0.61 (L) 0.67 - 1.17 mg/dL BUN/Creatinine 20 Albumin 3.2 (L) 3.4 - 5.0 g/dL Alkaline Phosphatase 81 46 - 116 U/L ALT 14 (L) 16 - 63 U/L AST 24 15 - 37 U/L Total Bilirubin 0.2 0.2 - 1.0 mg/dL Protein, Total 7.4 6.4 - 8.2 gm/dL Anion Gap 12 11 - 21 A/G Ratio 0.8 Globulin 4.2 g/dL Osmolality Calc 277.6 mOsm/kg eGFR (mL/min/1.73m2) >60 >=60 mL/min/1.73m2 Lipase Result Value Ref Range Lipase 68 16 - 77 U/L Magnesium Result Value Ref Range Magnesium 1.7 (L) 1.8 - 2.4 mg/dL High Sensitivity Troponin I Result Value Ref Range Troponin I High Sensitivity (pg/mL) <4 (L) 4 - 60.3 pg/mL Urinalysis, Reflex Microscopic and Culture If Indicated Result Value Ref Range Color, UA Yellow Clarity, UA Clear Specific Morton, UA 1.015 1.005 - 1.030 pH, UA 6.0 5.0 - 9.0 Leukocytes, UA Negative Negative Nitrite, UA Negative Negative Protein, UA Negative Negative Glucose, UA Negative Negative Ketones, UA Negative Negative Bilirubin, UA Negative Negative Blood, UA Trace (A) Negative Urobilinogen, UA 0.2 mg/dL Normal Specimen Source Urine, Clean Catch Triage Drug Screen, Urine Result Value Ref Range Amphetamine Urine Negative Negative Barbiturate Screen Negative Negative Benzodiazepine Screen Positive (A) Negative Cocaine (Metab.) Screen Negative Negative MDMA Ur Negative Negative Methadone Screen Negative Negative Opiate Screen Negative Negative Phencyclidine Screen Negative Negative Tricyclic Screen Negative Negative Tetrahydrocannabinol Negative Negative Methamphetamine Screen Negative Negative Oxycodone Screen Negative Negative Ethanol Result Value Ref Range Ethanol Lvl <3 <3 mg/dL Urinalysis Microscopic Only Result Value Ref Range WBC, UA 0-5 None Seen, 0-5 /HPF RBC, UA 6-10 (A) None Seen, Rare /HPF Bacteria, UA Trace (A) None Seen Mucus Trace Trace SQUAMOUS EPITHELIAL Rare None Seen, Rare /HPF CT brain without IV contrast Final Result No acute intracranial abnormality. CT CERVICAL SPINE 10/26/2024 1:29 PM HISTORY: Seizures and delirium tremens, pain all over COMPARISON: None. PROCEDURE: Axial images were obtained from the skull base to the thoracic inlet by computed tomography. 3 D reconstruction images were performed. This study was performed with techniques to keep radiation doses as low as reasonably achievable, (ALARA). Individualized dose reduction techniques using automated exposure control or adjustment of mA and/or kV according to the patient size were employed. FINDINGS: There is no acute fracture. There is no facet lock. The craniocervical junction is intact. There is degenerative disc disease at C5 and C6. There is no acute paraspinal abnormality. IMPRESSION: No acute osseous abnormality of the cervical spine. CT LUMBAR SPINE HISTORY: Seizure, delirium tremens, pain all over. TECHNIQUE: Thin section axial images were obtained through the lumbar spine without contrast. Coronal and sagittal reconstruction images were obtained from the axial data. This study was performed with techniques to keep radiation doses as low as reasonably achievable (ALARA). Individualized dose reduction techniques using automated exposure control or adjustment of mA and/or KV according to the patient size were employed. COMPARISON: None. FINDINGS: There is no acute fracture. There is evidence of prior hardware placement from L1 through L3. This has subsequently been removed. There is a very mild compression deformity of the superior endplate of L2 which appears chronic. Remaining vertebral body height is preserved. There is multilevel degenerative disc disease. There is no acute paraspinal abnormality. There are multiple bilateral nonobstructing renal stones. IMPRESSION: No acute osseous abnormality of the lumbar spine. Evidence of prior surgery and hardware removal. Degenerative disc disease. Images reviewed, interpreted, and dictated by Dr. Stephy Hanson. Transcribed by Rene Diallo(R). CT cervical spine without contrast Final Result No acute intracranial abnormality. CT CERVICAL SPINE 10/26/2024 1:29 PM HISTORY: Seizures and delirium tremens, pain all over COMPARISON: None. PROCEDURE: Axial images were obtained from the skull base to the thoracic inlet by computed tomography. 3 D reconstruction images were performed. This study was performed with techniques to keep radiation doses as low as reasonably achievable, (ALARA). Individualized dose reduction techniques using automated exposure control or adjustment of mA and/or kV according to the patient size were employed. FINDINGS: There is no acute fracture. There is no facet lock. The craniocervical junction is intact. There is degenerative disc disease at C5 and C6. There is no acute paraspinal abnormality. IMPRESSION: No acute osseous abnormality of the cervical spine. CT LUMBAR SPINE HISTORY: Seizure, delirium tremens, pain all over. TECHNIQUE: Thin section axial images were obtained through the lumbar spine without contrast. Coronal and sagittal reconstruction images were obtained from the axial data. This study was performed with techniques to keep radiation doses as low as reasonably achievable (ALARA). Individualized dose reduction techniques using automated exposure control or adjustment of mA and/or KV according to the patient size were employed. COMPARISON: None. FINDINGS: There is no acute fracture. There is evidence of prior hardware placement from L1 through L3. This has subsequently been removed. There is a very mild compression deformity of the superior endplate of L2 which appears chronic. Remaining vertebral body height is preserved. There is multilevel degenerative disc disease. There is no acute paraspinal abnormality. There are multiple bilateral nonobstructing renal stones. IMPRESSION: No acute osseous abnormality of the lumbar spine. Evidence of prior surgery and hardware removal. Degenerative disc disease. Images reviewed, interpreted, and dictated by Dr. Stephy Hanson. Transcribed by Rene Diallo(R). CT spine lumbar without IV contrast Final Result No acute intracranial abnormality. CT CERVICAL SPINE 10/26/2024 1:29 PM HISTORY: Seizures and delirium tremens, pain all over COMPARISON: None. PROCEDURE: Axial images were obtained from the skull base to the thoracic inlet by computed tomography. 3 D reconstruction images were performed. This study was performed with techniques to keep radiation doses as low as reasonably achievable, (ALARA). Individualized dose reduction techniques using automated exposure control or adjustment of mA and/or kV according to the patient size were employed. FINDINGS: There is no acute fracture. There is no facet lock. The craniocervical junction is intact. There is degenerative disc disease at C5 and C6. There is no acute paraspinal abnormality. IMPRESSION: No acute osseous abnormality of the cervical spine. CT LUMBAR SPINE HISTORY: Seizure, delirium tremens, pain all over. TECHNIQUE: Thin section axial images were obtained through the lumbar spine without contrast. Coronal and sagittal reconstruction images were obtained from the axial data. This study was performed with techniques to keep radiation doses as low as reasonably achievable (ALARA). Individualized dose reduction techniques using automated exposure control or adjustment of mA and/or KV according to the patient size were employed. COMPARISON: None. FINDINGS: There is no acute fracture. There is evidence of prior hardware placement from L1 through L3. This has subsequently been removed. There is a very mild compression deformity of the superior endplate of L2 which appears chronic. Remaining vertebral body height is preserved. There is multilevel degenerative disc disease. There is no acute paraspinal abnormality. There are multiple bilateral nonobstructing renal stones. IMPRESSION: No acute osseous abnormality of the lumbar spine. Evidence of prior surgery and hardware removal. Degenerative disc disease. Images reviewed, interpreted, and dictated by Dr. Stephy Hanson. Transcribed by Rene Diallo(R). XR chest 1 view portable / bedside Final Result No acute process. Images reviewed, interpreted, and dictated by Dr. Stephy Hanson. Transcribed by Rene Diallo(Marni). ED Course as of 10/26/242158 Sun October 26, 2024 7163 I personally obtained a history, performed an exam and participate in all aspects of the MDM involved in this patient's care. HPI: 49-year-old male presenting with reported seizure this morning while at rehab. 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 States he quit using all of them approximately 2 weeks ago.States he has had a withdrawal seizure before. Has been tremulous and states has had abnormal sensations on his skin and has been seeing things. States that he thought he saw a cat jumped into the trash can while here and when he goes to sleep last night there was an old man sitting in a chair. Denies any chest pain or shortness of breath. Exam: Awake alert oriented x 4 no acute distress does have generalized tremulousness no tachycardialungs are clear abdomen soft nontender nondistended moving all extremities equally no facial droop Plan/Evaluation: CT head ordered. Get labs given Ativan for significant elevated CIWA score likely need to be admitted for alcohol withdrawal. [AMBROSIO] [address] Corral who accepts patient for [AF] ED Course User Index [AF] Sydni Blancas PA-C [AMBROSIO] Michael Matthews MD Critical Care Performed by: Sydni Blancas PA-C Authorized by: Michael Matthews MD Critical care provider statement: Critical care time (minutes): 15 Critical care was necessary to treat or prevent imminent or life-threatening deterioration of the following conditions: Alcohol withdrawal. Critical care was time spent personally by me on the following activities: Development of treatment plan with patient or surrogate, evaluation of patient's response to treatment, examination of patient, obtaining history from patient or surrogate, ordering and performing treatments and interventions, ordering and review of laboratory studies, ordering and review of radiographic studies, pulse oximetry, re-evaluation of patient's condition and review of old charts Care discussed with: admitting provider Medical Decision Making Patient presents for evaluation of his seizure that occurred this morning. Patient states he is currently withdrawing from alcohol. Patient is at the [facility] currently. Patient states he is not getting any medication for his alcohol withdrawal. He does have a history of alcohol withdrawal seizures. Patient states he had a seizure while in bed this morning. Patient states he is mildly short of breath but denies any chest pain. He does report neck pain. Patient states he has chronic low backpain however he states that is hurting worse since the seizure. DDx includes not limited to DTs, alcohol withdrawal, benzodiazepine withdrawal, electrolyte abnormality, seizure, ICH Patient is well-appearing no acute distress. Is hemodynamically stable and nontoxic on exam. Patient CIWA score on arrival was 25. Patient states his last drink was approximately 2 weeks ago and states that he was drinking 30 shooters of fireball daily. Patient denies any other drug use however urine is positive for benzodiazepines. Patient was given Adderall in the ER and reported improvement ofsymptoms. Workup here overall unremarkable including negative cardiac workup. Patient CT head and neck both unremarkable. Patient CT lumbar spine shows previous surgical changes but otherwise unremarkable. Patient has generalized tremoring. No tachycardia and lungs are clear to auscultation. Abdomen is soft and nontender. Recommend admission for withdrawal. Patient understands and agrees this plan. I spoke with Dr. Corral who accepts this patient to hospital medicine Amount and/or Complexity of Data Reviewed Labs: ordered. Radiology: ordered. Risk Prescription drug management. Decision regarding hospitalization. Assessment & Plan Clinical Impression Diagnosis Comment Added By Time Added Alcohol withdrawal seizure without complication (HCC) Sydni Blancas PA-C 10/26/2024 9:46 PM Alcohol withdrawal (HCC) Sydni Blancas PA-C 10/26/2024 9:46 PM Disposition Admit [3] - 10/26/2024 3:50 PM Current Discharge Medication List Electronically Signed By Sydni Blancas PA-C 10/26/24 215 Cosigned by Michael Matthews MD at 10/30/2024 12:35 PM EDT Associated attestation - Michael Matthews MD - 10/30/2024 11:35 AM CDT This visit was performed by both the physician and an APC. I personally evaluated and examined thepatient. I performed all aspects of the MDM as documented. . * Luisa Rico - 10/26/2024 12:55 PM EDT Pt is trying to withdraw from alcohol Experienced seizure at 0330 this am Experiencing tremors and anxiety Rates pain 03/04 documented in this encounter Miscellaneous Notes * Plan of Care - Milagros Sterling RN - 11/01/2024 7:52 AM EDT Problem: Knowledge Deficit Goal: Patient/family/caregiver demonstrates understanding of disease process, treatment plan, medications, and discharge instructions Description: Complete learning assessment and assess knowledge base. Outcome: Progressing Problem: Potential for Falls Goal: Patient will remain free of falls Description: Assess and monitor vitals signs, neurological status including level of consciousness and orientation. Reassess fall risk per hospital policy.Ensure arm band on, uncluttered walking paths in room, adequate room lighting, call light and overbed table within reach, bed in low position, wheels locked, side rails up per policy, and non-skid footwear provided. Outcome: Progressing Problem: Pain Goal: Patient's pain/discomfort is manageable Description: Assess and monitor patient's pain using appropriate pain scale. Collaborate with interdisciplinary team and initiate plan and interventions as ordered. Re-assess patient's pain level after pain management intervention. Outcome: Progressing Problem: Safety Goal: Patient will be injury free during hospitalization Description: Assess and monitor vitals signs, neurological status including level of consciousness and orientation. Assess patient's risk for falls and implement fall prevention plan of care and interventions per hospital policy. Ensure arm band on, uncluttered walking paths in room, adequate room lighting, call light and overbed table within reach, bed in low position, wheels locked, side rails up per policy, and non-skid footwear provided. Outcome: Progressing Problem: Potential for Developing a Blood Clot Goal: Tissue perfusion is adequate - venous Description: Assess and monitor skin color and temperature, skin integrity, pulses, capillary refill, edema, pain in extremities, Homans' sign, labs (D- dimer), and diagnostic tests (ultrasound, CT scan, VQ scan). Monitor for signs and symptoms of deep vein thrombosis (swelling of calf/thigh, redness, pain, tenderness). Monitor for signs and symptoms of pulmonary embolism (dyspnea, tachypnea, tachycardia). Collaborate with interdisciplinary team and initiate plans and interventions as needed Outcome: Progressing Problem: Daily Care Goal: Daily care needs are met Description: Assess and monitor ability to perform self care and identify potential discharge needs. Outcome: Progressing Problem: Potential for Infection Goal: Remains infection free Description: Assess and monitor vital signs, skin (color, moisture, integrity, turgor), respiratorystatus, urinary and gastrointestinal status, and labs (WBC, cultures). Administer antibiotics and antipyretics as ordered. Ensure aseptic care of all intravenous lines, invasive tubes/drains and wounds. Monitor for signs and symptoms of infection (redness, warmth, discharge, increased body temperature). Wash hands properly before and after each patient care activity. Follow isolation guidelines per hospital protocol/policy. Collaborate with interdisciplinary team and initiate plan and interventions as ordered. Outcome: Progressing Problem: Psychosocial Needs Goal: Demonstrates ability to cope with hospitalization/illness Description: Assess and monitor patients ability to cope with his/her illness. Outcome: Progressing Goal: Collaborate with patient/family/caregiver to identify patient specific goals for this hospitalization Outcome: Progressing Problem: Anxiety Goal: Anxiety is at manageable level Description: Assess and monitor patient's anxiety level. Monitor for signs and symptoms of anxiety both physical and emotional (heart palpitations, chest pain, shortness of breath, headaches, nausea,feeling jumpy, restlessness, irritable, apprehensive). Collaborate with interdisciplinary team and initiate plan and interventions as ordered. Outcome: Progressing Problem: Inadequate Coping Goal: Demonstrates ability to cope effectively Description: Patient is able to verbalize feelings related to emotional state. Outcome: Progressing Goal: Verbalizes adaptive coping mechanisms Description: Able to verbalize adaptive coping mechanisms such as physical activity, distraction, and deep breathing exercises. Outcome: Progressing Goal: Verbalizes personal strengths Description: Spend time with the patient using empathy and active listening skills. Outcome: Progressing Problem: Discharge Barriers Goal: Patient's discharge needs are met Description: Collaborate with interdisciplinary team and initiate plans and interventions as needed. Outcome: Progressing Problem: Compromised Skin Integrity Goal: LTG - Patient will be free from infection Outcome: Progressing Goal: LTG - Patient will maintain/improve skin integrity through proper skin care techniques Outcome: Progressing Goal: LTG - Patient will demonstrate appropriate pressure relief techniques Outcome: Progressing Goal: LTG - Patient will demonstrate appropriate skin care techniques Outcome: Progressing Goal: LTG - Patient will be free from infection Outcome: Progressing Goal: STG - Patient demonstrates skin care/treatment/dressing change Outcome: Progressing Goal: STG - Patient will maintain good skin integrity Outcome: Progressing Goal: STG - Patient exhibits signs of wound healing. Outcome: Progressing Goal: STG - Patient demonstrates pressure reduction techniques Outcome: Progressing Goal: STG - Patient demonstrates preventative skin care measures Outcome: Progressing * Plan of Care - Milagros Sterling RN - 10/31/2024 7:42 AM EDT Problem: Knowledge Deficit Goal: Patient/family/caregiver demonstrates understanding of disease process, treatment plan, medications, and discharge instructions Description: Complete learning assessment and assess knowledge base. Outcome: Progressing Problem: Potential for Falls Goal: Patient will remain free of falls Description: Assess and monitor vitals signs, neurological status including level of consciousness and orientation. Reassess fall risk per hospital policy.Ensure arm band on, uncluttered walking paths in room, adequate room lighting, call light and overbed table within reach, bed in low position, wheels locked, side rails up per policy, and non-skid footwear provided. Outcome: Progressing Problem: Pain Goal: Patient's pain/discomfort is manageable Description: Assess and monitor patient's pain using appropriate pain scale. Collaborate with interdisciplinary team and initiate plan and interventions as ordered. Re-assess patient's pain level after pain management intervention. Outcome: Progressing Problem: Safety Goal: Patient will be injury free during hospitalization Description: Assess and monitor vitals signs, neurological status including level of consciousness and orientation. Assess patient's risk for falls and implement fall prevention plan of care and interventions per hospital policy. Ensure arm band on, uncluttered walking paths in room, adequate room lighting, call light and overbed table within reach, bed in low position, wheels locked, side rails up per policy, and non-skid footwear provided. Outcome: Progressing Problem: Potential for Developing a Blood Clot Goal: Tissue perfusion is adequate - venous Description: Assess and monitor skin color and temperature, skin integrity, pulses, capillary refill, edema, pain in extremities, Homans' sign, labs (D- dimer), and diagnostic tests (ultrasound, CT scan, VQ scan). Monitor for signs and symptoms of deep vein thrombosis (swelling of calf/thigh, redness, pain, tenderness). Monitor for signs and symptoms of pulmonary embolism (dyspnea, tachypnea, tachycardia). Collaborate with interdisciplinary team and initiate plans and interventions as needed Outcome: Progressing Problem: Daily Care Goal: Daily care needs are met Description: Assess and monitor ability to perform self care and identify potential discharge needs. Outcome: Progressing Problem: Potential for Infection Goal: Remains infection free Description: Assess and monitor vital signs, skin (color, moisture, integrity, turgor), respiratorystatus, urinary and gastrointestinal status, and labs (WBC, cultures). Administer antibiotics and antipyretics as ordered. Ensure aseptic care of all intravenous lines, invasive tubes/drains and wounds. Monitor for signs and symptoms of infection (redness, warmth, discharge, increased body temperature). Wash hands properly before and after each patient care activity. Follow isolation guidelines per hospital protocol/policy. Collaborate with interdisciplinary team and initiate plan and interventions as ordered. Outcome: Progressing Problem: Psychosocial Needs Goal: Demonstrates ability to cope with hospitalization/illness Description: Assess and monitor patients ability to cope with his/her illness. Outcome: Progressing Goal: Collaborate with patient/family/caregiver to identify patient specific goals for this hospitalization Outcome: Progressing Problem: Anxiety Goal: Anxiety is at manageable level Description: Assess and monitor patient's anxiety level. Monitor for signs and symptoms of anxiety both physical and emotional (heart palpitations, chest pain, shortness of breath, headaches, nausea,feeling jumpy, restlessness, irritable, apprehensive). Collaborate with interdisciplinary team and initiate plan and interventions as ordered. Outcome: Progressing Problem: Inadequate Coping Goal: Demonstrates ability to cope effectively Description: Patient is able to verbalize feelings related to emotional state. Outcome: Progressing Goal: Verbalizes adaptive coping mechanisms Description: Able to verbalize adaptive coping mechanisms such as physical activity, distraction, and deep breathing exercises. Outcome: Progressing Goal: Verbalizes personal strengths Description: Spend time with the patient using empathy and active listening skills. Outcome: Progressing Problem: Discharge Barriers Goal: Patient's discharge needs are met Description: Collaborate with interdisciplinary team and initiate plans and interventions as needed. Outcome: Progressing Problem: Compromised Skin Integrity Goal: LTG - Patient will be free from infection Outcome: Progressing Goal: LTG - Patient will maintain/improve skin integrity through proper skin care techniques Outcome: Progressing Goal: LTG - Patient will demonstrate appropriate pressure relief techniques Outcome: Progressing Goal: LTG - Patient will demonstrate appropriate skin care techniques Outcome: Progressing Goal: LTG - Patient will be free from infection Outcome: Progressing Goal: STG - Patient demonstrates skin care/treatment/dressing change Outcome: Progressing Goal: STG - Patient will maintain good skin integrity Outcome: Progressing Goal: STG - Patient exhibits signs of wound healing. Outcome: Progressing Goal: STG - Patient demonstrates pressure reduction techniques Outcome: Progressing Goal: STG - Patient demonstrates preventative skin care measures Outcome: Progressing * Plan of Care - Keara Sepulveda RN - 10/30/2024 7:45 PM EDT Problem: Knowledge Deficit Goal: Patient/family/caregiver demonstrates understanding of disease process, treatment plan, medications, and discharge instructions Description: Complete learning assessment and assess knowledge base. Outcome: Progressing Problem: Potential for Falls Goal: Patient will remain free of falls Description: Assess and monitor vitals signs, neurological status including level of consciousness and orientation. Reassess fall risk per hospital policy.Ensure arm band on, uncluttered walking paths in room, adequate room lighting, call light and overbed table within reach, bed in low position, wheels locked, side rails up per policy, and non-skid footwear provided. Outcome: Progressing Problem: Pain Goal: Patient's pain/discomfort is manageable Description: Assess and monitor patient's pain using appropriate pain scale. Collaborate with interdisciplinary team and initiate plan and interventions as ordered. Re-assess patient's pain level after pain management intervention. Outcome: Progressing Problem: Safety Goal: Patient will be injury free during hospitalization Description: Assess and monitor vitals signs, neurological status including level of consciousness and orientation. Assess patient's risk for falls and implement fall prevention plan of care and interventions per hospital policy. Ensure arm band on, uncluttered walking paths in room, adequate room lighting, call light and overbed table within reach, bed in low position, wheels locked, side rails up per policy, and non-skid footwear provided. Outcome: Progressing Problem: Potential for Developing a Blood Clot Goal: Tissue perfusion is adequate - venous Description: Assess and monitor skin color and temperature, skin integrity, pulses, capillary refill, edema, pain in extremities, Homans' sign, labs (D- dimer), and diagnostic tests (ultrasound, CT scan, VQ scan). Monitor for signs and symptoms of deep vein thrombosis (swelling of calf/thigh, redness, pain, tenderness). Monitor for signs and symptoms of pulmonary embolism (dyspnea, tachypnea, tachycardia). Collaborate with interdisciplinary team and initiate plans and interventions as needed Outcome: Progressing Problem: Daily Care Goal: Daily care needs are met Description: Assess and monitor ability to perform self care and identify potential discharge needs. Outcome: Progressing Problem: Potential for Infection Goal: Remains infection free Description: Assess and monitor vital signs, skin (color, moisture, integrity, turgor), respiratorystatus, urinary and gastrointestinal status, and labs (WBC, cultures). Administer antibiotics and antipyretics as ordered. Ensure aseptic care of all intravenous lines, invasive tubes/drains and wounds. Monitor for signs and symptoms of infection (redness, warmth, discharge, increased body temperature). Wash hands properly before and after each patient care activity. Follow isolation guidelines per hospital protocol/policy. Collaborate with interdisciplinary team and initiate plan and interventions as ordered. Outcome: Progressing Problem: Psychosocial Needs Goal: Demonstrates ability to cope with hospitalization/illness Description: Assess and monitor patients ability to cope with his/her illness. Outcome: Progressing Goal: Collaborate with patient/family/caregiver to identify patient specific goals for this hospitalization Outcome: Progressing Problem: Anxiety Goal: Anxiety is at manageable level Description: Assess and monitor patient's anxiety level. Monitor for signs and symptoms of anxiety both physical and emotional (heart palpitations, chest pain, shortness of breath, headaches, nausea,feeling jumpy, restlessness, irritable, apprehensive). Collaborate with interdisciplinary team and initiate plan and interventions as ordered. Outcome: Progressing Problem: Inadequate Coping Goal: Demonstrates ability to cope effectively Description: Patient is able to verbalize feelings related to emotional state. Outcome: Progressing Goal: Verbalizes adaptive coping mechanisms Description: Able to verbalize adaptive coping mechanisms such as physical activity, distraction, and deep breathing exercises. Outcome: Progressing Goal: Verbalizes personal strengths Description: Spend time with the patient using empathy and active listening skills. Outcome: Progressing Problem: Discharge Barriers Goal: Patient's discharge needs are met Description: Collaborate with interdisciplinary team and initiate plans and interventions as needed. Outcome: Progressing Problem: Compromised Skin Integrity Goal: LTG - Patient will be free from infection Outcome: Progressing Goal: LTG - Patient will maintain/improve skin integrity through proper skin care techniques Outcome: Progressing Goal: LTG - Patient will demonstrate appropriate pressure relief techniques Outcome: Progressing Goal: LTG - Patient will demonstrate appropriate skin care techniques Outcome: Progressing Goal: LTG - Patient will be free from infection Outcome: Progressing Goal: STG - Patient demonstrates skin care/treatment/dressing change Outcome: Progressing Goal: STG - Patient will maintain good skin integrity Outcome: Progressing Goal: STG - Patient exhibits signs of wound healing. Outcome: Progressing Goal: STG - Patient demonstrates pressure reduction techniques Outcome: Progressing Goal: STG - Patient demonstrates preventative skin care measures Outcome: Progressing * Plan of Care - Keara Sepulveda RN - 10/29/2024 10:04 PM EDT Problem: Knowledge Deficit Goal: Patient/family/caregiver demonstrates understanding of disease process, treatment plan, medications, and discharge instructions Description: Complete learning assessment and assess knowledge base. Outcome: Progressing Problem: Potential for Falls Goal: Patient will remain free of falls Description: Assess and monitor vitals signs, neurological status including level of consciousness and orientation. Reassess fall risk per hospital policy.Ensure arm band on, uncluttered walking paths in room, adequate room lighting, call light and overbed table within reach, bed in low position, wheels locked, side rails up per policy, and non-skid footwear provided. Outcome: Progressing Problem: Pain Goal: Patient's pain/discomfort is manageable Description: Assess and monitor patient's pain using appropriate pain scale. Collaborate with interdisciplinary team and initiate plan and interventions as ordered. Re-assess patient's pain level after pain management intervention. Outcome: Progressing Problem: Safety Goal: Patient will be injury free during hospitalization Description: Assess and monitor vitals signs, neurological status including level of consciousness and orientation. Assess patient's risk for falls and implement fall prevention plan of care and interventions per hospital policy. Ensure arm band on, uncluttered walking paths in room, adequate room lighting, call light and overbed table within reach, bed in low position, wheels locked, side rails up per policy, and non-skid footwear provided. Outcome: Progressing Problem: Potential for Developing a Blood Clot Goal: Tissue perfusion is adequate - venous Description: Assess and monitor skin color and temperature, skin integrity, pulses, capillary refill, edema, pain in extremities, Homans' sign, labs (D- dimer), and diagnostic tests (ultrasound, CT scan, VQ scan). Monitor for signs and symptoms of deep vein thrombosis (swelling of calf/thigh, redness, pain, tenderness). Monitor for signs and symptoms of pulmonary embolism (dyspnea, tachypnea, tachycardia). Collaborate with interdisciplinary team and initiate plans and interventions as needed Outcome: Progressing Problem: Daily Care Goal: Daily care needs are met Description: Assess and monitor ability to perform self care and identify potential discharge needs. Outcome: Progressing Problem: Potential for Infection Goal: Remains infection free Description: Assess and monitor vital signs, skin (color, moisture, integrity, turgor), respiratorystatus, urinary and gastrointestinal status, and labs (WBC, cultures). Administer antibiotics and antipyretics as ordered. Ensure aseptic care of all intravenous lines, invasive tubes/drains and wounds. Monitor for signs and symptoms of infection (redness, warmth, discharge, increased body temperature). Wash hands properly before and after each patient care activity. Follow isolation guidelines per hospital protocol/policy. Collaborate with interdisciplinary team and initiate plan and interventions as ordered. Outcome: Progressing Problem: Psychosocial Needs Goal: Demonstrates ability to cope with hospitalization/illness Description: Assess and monitor patients ability to cope with his/her illness. Outcome: Progressing Goal: Collaborate with patient/family/caregiver to identify patient specific goals for this hospitalization Outcome: Progressing Problem: Anxiety Goal: Anxiety is at manageable level Description: Assess and monitor patient's anxiety level. Monitor for signs and symptoms of anxiety both physical and emotional (heart palpitations, chest pain, shortness of breath, headaches, nausea,feeling jumpy, restlessness, irritable, apprehensive). Collaborate with interdisciplinary team and initiate plan and interventions as ordered. Outcome: Progressing Problem: Inadequate Coping Goal: Demonstrates ability to cope effectively Description: Patient is able to verbalize feelings related to emotional state. Outcome: Progressing Goal: Verbalizes adaptive coping mechanisms Description: Able to verbalize adaptive coping mechanisms such as physical activity, distraction, and deep breathing exercises. Outcome: Progressing Goal: Verbalizes personal strengths Description: Spend time with the patient using empathy and active listening skills. Outcome: Progressing Problem: Discharge Barriers Goal: Patient's discharge needs are met Description: Collaborate with interdisciplinary team and initiate plans and interventions as needed. Outcome: Progressing * Plan of Care - Kimberly Fagan RN - 10/29/2024 9:49 AM EDT Problem: Knowledge Deficit Goal: Patient/family/caregiver demonstrates understanding of disease process, treatment plan, medications, and discharge instructions Description: Complete learning assessment and assess knowledge base. Outcome: Progressing Problem: Potential for Falls Goal: Patient will remain free of falls Description: Assess and monitor vitals signs, neurological status including level of consciousness and orientation. Reassess fall risk per hospital policy.Ensure arm band on, uncluttered walking paths in room, adequate room lighting, call light and overbed table within reach, bed in low position, wheels locked, side rails up per policy, and non-skid footwear provided. Outcome: Progressing Problem: Pain Goal: Patient's pain/discomfort is manageable Description: Assess and monitor patient's pain using appropriate pain scale. Collaborate with interdisciplinary team and initiate plan and interventions as ordered. Re-assess patient's pain level after pain management intervention. Outcome: Progressing Problem: Safety Goal: Patient will be injury free during hospitalization Description: Assess and monitor vitals signs, neurological status including level of consciousness and orientation. Assess patient's risk for falls and implement fall prevention plan of care and interventions per hospital policy. Ensure arm band on, uncluttered walking paths in room, adequate room lighting, call light and overbed table within reach, bed in low position, wheels locked, side rails up per policy, and non-skid footwear provided. Outcome: Progressing Problem: Potential for Developing a Blood Clot Goal: Tissue perfusion is adequate - venous Description: Assess and monitor skin color and temperature, skin integrity, pulses, capillary refill, edema, pain in extremities, Homans' sign, labs (D- dimer), and diagnostic tests (ultrasound, CT scan, VQ scan). Monitor for signs and symptoms of deep vein thrombosis (swelling of calf/thigh, redness, pain, tenderness). Monitor for signs and symptoms of pulmonary embolism (dyspnea, tachypnea, tachycardia). Collaborate with interdisciplinary team and initiate plans and interventions as needed Outcome: Progressing Problem: Daily Care Goal: Daily care needs are met Description: Assess and monitor ability to perform self care and identify potential discharge needs. Outcome: Progressing Problem: Potential for Infection Goal: Remains infection free Description: Assess and monitor vital signs, skin (color, moisture, integrity, turgor), respiratorystatus, urinary and gastrointestinal status, and labs (WBC, cultures). Administer antibiotics and antipyretics as ordered. Ensure aseptic care of all intravenous lines, invasive tubes/drains and wounds. Monitor for signs and symptoms of infection (redness, warmth, discharge, increased body temperature). Wash hands properly before and after each patient care activity. Follow isolation guidelines per hospital protocol/policy. Collaborate with interdisciplinary team and initiate plan and interventions as ordered. Outcome: Progressing Problem: Psychosocial Needs Goal: Demonstrates ability to cope with hospitalization/illness Description: Assess and monitor patients ability to cope with his/her illness. Outcome: Progressing Goal: Collaborate with patient/family/caregiver to identify patient specific goals for this hospitalization Outcome: Progressing Problem: Anxiety Goal: Anxiety is at manageable level Description: Assess and monitor patient's anxiety level. Monitor for signs and symptoms of anxiety both physical and emotional (heart palpitations, chest pain, shortness of breath, headaches, nausea,feeling jumpy, restlessness, irritable, apprehensive). Collaborate with interdisciplinary team and initiate plan and interventions as ordered. Outcome: Progressing Problem: Inadequate Coping Goal: Demonstrates ability to cope effectively Description: Patient is able to verbalize feelings related to emotional state. Outcome: Progressing Goal: Verbalizes adaptive coping mechanisms Description: Able to verbalize adaptive coping mechanisms such as physical activity, distraction, and deep breathing exercises. Outcome: Progressing Goal: Verbalizes personal strengths Description: Spend time with the patient using empathy and active listening skills. Outcome: Progressing Problem: Discharge Barriers Goal: Patient's discharge needs are met Description: Collaborate with interdisciplinary team and initiate plans and interventions as needed. Outcome: Progressing * Plan of Care - Tara Gonsalves RN - 10/28/2024 7:37 PM EDT Problem: Knowledge Deficit Goal: Patient/family/caregiver demonstrates understanding of disease process, treatment plan, medications, and discharge instructions Description: Complete learning assessment and assess knowledge base. Outcome: Progressing Problem: Potential for Falls Goal: Patient will remain free of falls Description: Assess and monitor vitals signs, neurological status including level of consciousness and orientation. Reassess fall risk per hospital policy.Ensure arm band on, uncluttered walking paths in room, adequate room lighting, call light and overbed table within reach, bed in low position, wheels locked, side rails up per policy, and non-skid footwear provided. Outcome: Progressing Problem: Pain Goal: Patient's pain/discomfort is manageable Description: Assess and monitor patient's pain using appropriate pain scale. Collaborate with interdisciplinary team and initiate plan and interventions as ordered. Re-assess patient's pain level after pain management intervention. Outcome: Progressing Problem: Safety Goal: Patient will be injury free during hospitalization Description: Assess and monitor vitals signs, neurological status including level of consciousness and orientation. Assess patient's risk for falls and implement fall prevention plan of care and interventions per hospital policy. Ensure arm band on, uncluttered walking paths in room, adequate room lighting, call light and overbed table within reach, bed in low position, wheels locked, side rails up per policy, and non-skid footwear provided. Outcome: Progressing Problem: Potential for Developing a Blood Clot Goal: Tissue perfusion is adequate - venous Description: Assess and monitor skin color and temperature, skin integrity, pulses, capillary refill, edema, pain in extremities, Homans' sign, labs (D- dimer), and diagnostic tests (ultrasound, CT scan, VQ scan). Monitor for signs and symptoms of deep vein thrombosis (swelling of calf/thigh, redness, pain, tenderness). Monitor for signs and symptoms of pulmonary embolism (dyspnea, tachypnea, tachycardia). Collaborate with interdisciplinary team and initiate plans and interventions as needed Outcome: Progressing Problem: Daily Care Goal: Daily care needs are met Description: Assess and monitor ability to perform self care and identify potential discharge needs. Outcome: Progressing Problem: Potential for Infection Goal: Remains infection free Description: Assess and monitor vital signs, skin (color, moisture, integrity, turgor), respiratorystatus, urinary and gastrointestinal status, and labs (WBC, cultures). Administer antibiotics and antipyretics as ordered. Ensure aseptic care of all intravenous lines, invasive tubes/drains and wounds. Monitor for signs and symptoms of infection (redness, warmth, discharge, increased body temperature). Wash hands properly before and after each patient care activity. Follow isolation guidelines per hospital protocol/policy. Collaborate with interdisciplinary team and initiate plan and interventions as ordered. Outcome: Progressing Problem: Psychosocial Needs Goal: Demonstrates ability to cope with hospitalization/illness Description: Assess and monitor patients ability to cope with his/her illness. Outcome: Progressing Goal: Collaborate with patient/family/caregiver to identify patient specific goals for this hospitalization Outcome: Progressing Problem: Anxiety Goal: Anxiety is at manageable level Description: Assess and monitor patient's anxiety level. Monitor for signs and symptoms of anxiety both physical and emotional (heart palpitations, chest pain, shortness of breath, headaches, nausea,feeling jumpy, restlessness, irritable, apprehensive). Collaborate with interdisciplinary team and initiate plan and interventions as ordered. Outcome: Progressing Problem: Inadequate Coping Goal: Demonstrates ability to cope effectively Description: Patient is able to verbalize feelings related to emotional state. Outcome: Progressing Goal: Verbalizes adaptive coping mechanisms Description: Able to verbalize adaptive coping mechanisms such as physical activity, distraction, and deep breathing exercises. Outcome: Progressing Goal: Verbalizes personal strengths Description: Spend time with the patient using empathy and active listening skills. Outcome: Progressing Problem: Discharge Barriers Goal: Patient's discharge needs are met Description: Collaborate with interdisciplinary team and initiate plans and interventions as needed. Outcome: Progressing * Plan of Care - Monica Cowan RN - 10/28/2024 6:02 PM EDT Patient remains on Precedex for management of withdrawal symptoms. PO Valium and Minipress added topatient's medications per Dr. Jo. Patient has not required any PRN sedation medications during this shift. CIWA did increase to 12 at 1605. MD made aware with not changes made at that time. Problem: Knowledge Deficit Goal: Patient/family/caregiver demonstrates understanding of disease process, treatment plan, medications, and discharge instructions Description: Complete learning assessment and assess knowledge base. Outcome: Progressing Problem: Potential for Falls Goal: Patient will remain free of falls Description: Assess and monitor vitals signs, neurological status including level of consciousness and orientation. Reassess fall risk per hospital policy.Ensure arm band on, uncluttered walking paths in room, adequate room lighting, call light and overbed table within reach, bed in low position, wheels locked, side rails up per policy, and non-skid footwear provided. Outcome: Progressing Problem: Pain Goal: Patient's pain/discomfort is manageable Description: Assess and monitor patient's pain using appropriate pain scale. Collaborate with interdisciplinary team and initiate plan and interventions as ordered. Re-assess patient's pain level after pain management intervention. Outcome: Progressing Problem: Safety Goal: Patient will be injury free during hospitalization Description: Assess and monitor vitals signs, neurological status including level of consciousness and orientation. Assess patient's risk for falls and implement fall prevention plan of care and interventions per hospital policy. Ensure arm band on, uncluttered walking paths in room, adequate room lighting, call light and overbed table within reach, bed in low position, wheels locked, side rails up per policy, and non-skid footwear provided. Outcome: Progressing Problem: Potential for Developing a Blood Clot Goal: Tissue perfusion is adequate - venous Description: Assess and monitor skin color and temperature, skin integrity, pulses, capillary refill, edema, pain in extremities, Homans' sign, labs (D- dimer), and diagnostic tests (ultrasound, CT scan, VQ scan). Monitor for signs and symptoms of deep vein thrombosis (swelling of calf/thigh, redness, pain, tenderness). Monitor for signs and symptoms of pulmonary embolism (dyspnea, tachypnea, tachycardia). Collaborate with interdisciplinary team and initiate plans and interventions as needed Outcome: Progressing Problem: Daily Care Goal: Daily care needs are met Description: Assess and monitor ability to perform self care and identify potential discharge needs. Outcome: Progressing Problem: Potential for Infection Goal: Remains infection free Description: Assess and monitor vital signs, skin (color, moisture, integrity, turgor), respiratorystatus, urinary and gastrointestinal status, and labs (WBC, cultures). Administer antibiotics and antipyretics as ordered. Ensure aseptic care of all intravenous lines, invasive tubes/drains and wounds. Monitor for signs and symptoms of infection (redness, warmth, discharge, increased body temperature). Wash hands properly before and after each patient care activity. Follow isolation guidelines per hospital protocol/policy. Collaborate with interdisciplinary team and initiate plan and interventions as ordered. Outcome: Progressing Problem: Psychosocial Needs Goal: Demonstrates ability to cope with hospitalization/illness Description: Assess and monitor patients ability to cope with his/her illness. Outcome: Progressing Goal: Collaborate with patient/family/caregiver to identify patient specific goals for this hospitalization Outcome: Progressing Problem: Anxiety Goal: Anxiety is at manageable level Description: Assess and monitor patient's anxiety level. Monitor for signs and symptoms of anxiety both physical and emotional (heart palpitations, chest pain, shortness of breath, headaches, nausea,feeling jumpy, restlessness, irritable, apprehensive). Collaborate with interdisciplinary team and initiate plan and interventions as ordered. Outcome: Progressing Problem: Inadequate Coping Goal: Demonstrates ability to cope effectively Description: Patient is able to verbalize feelings related to emotional state. Outcome: Progressing Goal: Verbalizes adaptive coping mechanisms Description: Able to verbalize adaptive coping mechanisms such as physical activity, distraction, and deep breathing exercises. Outcome: Progressing Goal: Verbalizes personal strengths Description: Spend time with the patient using empathy and active listening skills. Outcome: Progressing Problem: Discharge Barriers Goal: Patient's discharge needs are met Description: Collaborate with interdisciplinary team and initiate plans and interventions as needed. Outcome: Progressing * Plan of Care - Tara Gonsalves RN - 10/27/2024 8:56 PM EDT Problem: Knowledge Deficit Goal: Patient/family/caregiver demonstrates understanding of disease process, treatment plan, medications, and discharge instructions Description: Complete learning assessment and assess knowledge base. Outcome: Progressing Problem: Potential for Falls Goal: Patient will remain free of falls Description: Assess and monitor vitals signs, neurological status including level of consciousness and orientation. Reassess fall risk per hospital policy.Ensure arm band on, uncluttered walking paths in room, adequate room lighting, call light and overbed table within reach, bed in low position, wheels locked, side rails up per policy, and non-skid footwear provided. Outcome: Progressing Problem: Pain Goal: Patient's pain/discomfort is manageable Description: Assess and monitor patient's pain using appropriate pain scale. Collaborate with interdisciplinary team and initiate plan and interventions as ordered. Re-assess patient's pain level after pain management intervention. Outcome: Progressing Problem: Safety Goal: Patient will be injury free during hospitalization Description: Assess and monitor vitals signs, neurological status including level of consciousness and orientation. Assess patient's risk for falls and implement fall prevention plan of care and interventions per hospital policy. Ensure arm band on, uncluttered walking paths in room, adequate room lighting, call light and overbed table within reach, bed in low position, wheels locked, side rails up per policy, and non-skid footwear provided. Outcome: Progressing Problem: Potential for Developing a Blood Clot Goal: Tissue perfusion is adequate - venous Description: Assess and monitor skin color and temperature, skin integrity, pulses, capillary refill, edema, pain in extremities, Homans' sign, labs (D- dimer), and diagnostic tests (ultrasound, CT scan, VQ scan). Monitor for signs and symptoms of deep vein thrombosis (swelling of calf/thigh, redness, pain, tenderness). Monitor for signs and symptoms of pulmonary embolism (dyspnea, tachypnea, tachycardia). Collaborate with interdisciplinary team and initiate plans and interventions as needed Outcome: Progressing Problem: Daily Care Goal: Daily care needs are met Description: Assess and monitor ability to perform self care and identify potential discharge needs. Outcome: Progressing Problem: Potential for Infection Goal: Remains infection free Description: Assess and monitor vital signs, skin (color, moisture, integrity, turgor), respiratorystatus, urinary and gastrointestinal status, and labs (WBC, cultures). Administer antibiotics and antipyretics as ordered. Ensure aseptic care of all intravenous lines, invasive tubes/drains and wounds. Monitor for signs and symptoms of infection (redness, warmth, discharge, increased body temperature). Wash hands properly before and after each patient care activity. Follow isolation guidelines per hospital protocol/policy. Collaborate with interdisciplinary team and initiate plan and interventions as ordered. Outcome: Progressing Problem: Psychosocial Needs Goal: Demonstrates ability to cope with hospitalization/illness Description: Assess and monitor patients ability to cope with his/her illness. Outcome: Progressing Goal: Collaborate with patient/family/caregiver to identify patient specific goals for this hospitalization Outcome: Progressing Problem: Anxiety Goal: Anxiety is at manageable level Description: Assess and monitor patient's anxiety level. Monitor for signs and symptoms of anxiety both physical and emotional (heart palpitations, chest pain, shortness of breath, headaches, nausea,feeling jumpy, restlessness, irritable, apprehensive). Collaborate with interdisciplinary team and initiate plan and interventions as ordered. Outcome: Progressing Problem: Inadequate Coping Goal: Demonstrates ability to cope effectively Description: Patient is able to verbalize feelings related to emotional state. Outcome: Progressing Goal: Verbalizes adaptive coping mechanisms Description: Able to verbalize adaptive coping mechanisms such as physical activity, distraction, and deep breathing exercises. Outcome: Progressing Goal: Verbalizes personal strengths Description: Spend time with the patient using empathy and active listening skills. Outcome: Progressing Problem: Discharge Barriers Goal: Patient's discharge needs are met Description: Collaborate with interdisciplinary team and initiate plans and interventions as needed. Outcome: Progressing * Plan of Care - Kimberly Jackson RN - 10/27/2024 5:22 PM EDTSummary: Care Plan Problem: Knowledge Deficit Goal: Patient/family/caregiver demonstrates understanding of disease process, treatment plan, medications, and discharge instructions Description: Complete learning assessment and assess knowledge base. Outcome: Not Progressing Problem: Potential for Falls Goal: Patient will remain free of falls Description: Assess and monitor vitals signs, neurological status including level of consciousness and orientation. Reassess fall risk per hospital policy.Ensure arm band on, uncluttered walking paths in room, adequate room lighting, call light and overbed table within reach, bed in low position, wheels locked, side rails up per policy, and non-skid footwear provided. Outcome: Not Progressing Problem: Pain Goal: Patient's pain/discomfort is manageable Description: Assess and monitor patient's pain using appropriate pain scale. Collaborate with interdisciplinary team and initiate plan and interventions as ordered. Re-assess patient's pain level after pain management intervention. Outcome: Not Progressing Problem: Safety Goal: Patient will be injury free during hospitalization Description: Assess and monitor vitals signs, neurological status including level of consciousness and orientation. Assess patient's risk for falls and implement fall prevention plan of care and interventions per hospital policy. Ensure arm band on, uncluttered walking paths in room, adequate room lighting, call light and overbed table within reach, bed in low position, wheels locked, side rails up per policy, and non-skid footwear provided. Outcome: Not Progressing Problem: Potential for Developing a Blood Clot Goal: Tissue perfusion is adequate - venous Description: Assess and monitor skin color and temperature, skin integrity, pulses, capillary refill, edema, pain in extremities, Homans' sign, labs (D- dimer), and diagnostic tests (ultrasound, CT scan, VQ scan). Monitor for signs and symptoms of deep vein thrombosis (swelling of calf/thigh, redness, pain, tenderness). Monitor for signs and symptoms of pulmonary embolism (dyspnea, tachypnea, tachycardia). Collaborate with interdisciplinary team and initiate plans and interventions as needed Outcome: Not Progressing Problem: Daily Care Goal: Daily care needs are met Description: Assess and monitor ability to perform self care and identify potential discharge needs. Outcome: Not Progressing Problem: Potential for Infection Goal: Remains infection free Description: Assess and monitor vital signs, skin (color, moisture, integrity, turgor), respiratorystatus, urinary and gastrointestinal status, and labs (WBC, cultures). Administer antibiotics and antipyretics as ordered. Ensure aseptic care of all intravenous lines, invasive tubes/drains and wounds. Monitor for signs and symptoms of infection (redness, warmth, discharge, increased body temperature). Wash hands properly before and after each patient care activity. Follow isolation guidelines per hospital protocol/policy. Collaborate with interdisciplinary team and initiate plan and interventions as ordered. Outcome: Not Progressing Problem: Psychosocial Needs Goal: Demonstrates ability to cope with hospitalization/illness Description: Assess and monitor patients ability to cope with his/her illness. Outcome: Not Progressing Goal: Collaborate with patient/family/caregiver to identify patient specific goals for this hospitalization Outcome: Not Progressing Problem: Anxiety Goal: Anxiety is at manageable level Description: Assess and monitor patient's anxiety level. Monitor for signs and symptoms of anxiety both physical and emotional (heart palpitations, chest pain, shortness of breath, headaches, nausea,feeling jumpy, restlessness, irritable, apprehensive). Collaborate with interdisciplinary team and initiate plan and interventions as ordered. Outcome: Not Progressing Problem: Inadequate Coping Goal: Demonstrates ability to cope effectively Description: Patient is able to verbalize feelings related to emotional state. Outcome: Not Progressing Goal: Verbalizes adaptive coping mechanisms Description: Able to verbalize adaptive coping mechanisms such as physical activity, distraction, and deep breathing exercises. Outcome: Not Progressing Goal: Verbalizes personal strengths Description: Spend time with the patient using empathy and active listening skills. Outcome: Not Progressing Problem: Discharge Barriers Goal: Patient's discharge needs are met Description: Collaborate with interdisciplinary team and initiate plans and interventions as needed. Outcome: Not Progressing * Plan of Care - Jess Jo RN - 10/26/2024 11:21 PM EDT Problem: Knowledge Deficit Goal: Patient/family/caregiver demonstrates understanding of disease process, treatment plan, medications, and discharge instructions Description: Complete learning assessment and assess knowledge base. Outcome: Progressing Problem: Potential for Falls Goal: Patient will remain free of falls Description: Assess and monitor vitals signs, neurological status including level of consciousness and orientation. Reassess fall risk per hospital policy.Ensure arm band on, uncluttered walking paths in room, adequate room lighting, call light and overbed table within reach, bed in low position, wheels locked, side rails up per policy, and non-skid footwear provided. Outcome: Progressing Problem: Pain Goal: Patient's pain/discomfort is manageable Description: Assess and monitor patient's pain using appropriate pain scale. Collaborate with interdisciplinary team and initiate plan and interventions as ordered. Re-assess patient's pain level after pain management intervention. Outcome: Progressing Problem: Safety Goal: Patient will be injury free during hospitalization Description: Assess and monitor vitals signs, neurological status including level of consciousness and orientation. Assess patient's risk for falls and implement fall prevention plan of care and interventions per hospital policy. Ensure arm band on, uncluttered walking paths in room, adequate room lighting, call light and overbed table within reach, bed in low position, wheels locked, side rails up per policy, and non-skid footwear provided. Outcome: Progressing Problem: Potential for Developing a Blood Clot Goal: Tissue perfusion is adequate - venous Description: Assess and monitor skin color and temperature, skin integrity, pulses, capillary refill, edema, pain in extremities, Homans' sign, labs (D- dimer), and diagnostic tests (ultrasound, CT scan, VQ scan). Monitor for signs and symptoms of deep vein thrombosis (swelling of calf/thigh, redness, pain, tenderness). Monitor for signs and symptoms of pulmonary embolism (dyspnea, tachypnea, tachycardia). Collaborate with interdisciplinary team and initiate plans and interventions as needed Outcome: Progressing Problem: Daily Care Goal: Daily care needs are met Description: Assess and monitor ability to perform self care and identify potential discharge needs. Outcome: Progressing Problem: Potential for Infection Goal: Remains infection free Description: Assess and monitor vital signs, skin (color, moisture, integrity, turgor), respiratorystatus, urinary and gastrointestinal status, and labs (WBC, cultures). Administer antibiotics and antipyretics as ordered. Ensure aseptic care of all intravenous lines, invasive tubes/drains and wounds. Monitor for signs and symptoms of infection (redness, warmth, discharge, increased body temperature). Wash hands properly before and after each patient care activity. Follow isolation guidelines per hospital protocol/policy. Collaborate with interdisciplinary team and initiate plan and interventions as ordered. Outcome: Progressing Problem: Psychosocial Needs Goal: Demonstrates ability to cope with hospitalization/illness Description: Assess and monitor patients ability to cope with his/her illness. Outcome: Progressing Goal: Collaborate with patient/family/caregiver to identify patient specific goals for this hospitalization Outcome: Progressing Problem: Anxiety Goal: Anxiety is at manageable level Description: Assess and monitor patient's anxiety level. Monitor for signs and symptoms of anxiety both physical and emotional (heart palpitations, chest pain, shortness of breath, headaches, nausea,feeling jumpy, restlessness, irritable, apprehensive). Collaborate with interdisciplinary team and initiate plan and interventions as ordered. Outcome: Progressing Problem: Inadequate Coping Goal: Demonstrates ability to cope effectively Description: Patient is able to verbalize feelings related to emotional state. Outcome: Progressing Goal: Verbalizes adaptive coping mechanisms Description: Able to verbalize adaptive coping mechanisms such as physical activity, distraction, and deep breathing exercises. Outcome: Progressing Goal: Verbalizes personal strengths Description: Spend time with the patient using empathy and active listening skills. Outcome: Progressing Problem: Discharge Barriers Goal: Patient's discharge needs are met Description: Collaborate with interdisciplinary team and initiate plans and interventions as needed. Outcome: Progressing documented in this encounter Plan of Treatment Not on file documented as of this encounter Procedures Procedure Name Priority Date/Time Associated Diagnosis Comments CBC HEMOGRAM (SJ-BKR) Routine 10/31/2024 5:19 AM EDT PHOSPHORUS Routine 10/31/2024 5:19 AM EDT MAGNESIUM Routine 10/31/2024 5:19 AM EDT BASIC METABOLIC PANEL Routine 10/31/2024 5:19 AM EDT CBC HEMOGRAM (SJ-BKR) Routine 10/29/2024 5:54 AM EDT PHOSPHORUS Routine 10/29/2024 5:54 AM EDT MAGNESIUM Routine 10/29/2024 5:54 AM EDT COMPREHENSIVE METABOLIC PANEL Routine 10/29/2024 5:54 AM EDT COMPREHENSIVE METABOLIC PANEL Routine 10/28/2024 5:42 AM EDT CBC W/ AUTO DIFF Routine 10/28/2024 5:41 AM EDT CBC W/ AUTO DIFF Routine 10/27/2024 6:00 AM EDT PROBNP Routine 10/27/2024 6:00 AM EDT TSH Routine 10/27/2024 6:00 AM EDT MAGNESIUM Routine 10/27/2024 6:00 AM EDT BASIC METABOLIC PANEL Routine 10/27/2024 6:00 AM EDT URINALYSIS, REFLEX MICROSCOPIC AND CULTURE IF INDICATED STAT 10/26/2024 2:07 PM EDT TRIAGE DRUG SCREEN, URINE STAT 10/26/2024 2:07 PM EDT URINALYSIS MICROSCOPIC STAT 2:07 PM EDT CBC W/ AUTO DIFF STAT 10/26/2024 1:59 PM EDT HIGH SENSITIVITY TROPONIN I STAT 10/26/2024 1:59 PM EDT MAGNESIUM STAT 10/26/2024 1:59 PM EDT LIPASE STAT 10/26/2024 1:59 PM EDT ETHANOL STAT 10/26/2024 1:59 PM EDT COMPREHENSIVE METABOLIC PANEL STAT 10/26/2024 1:[address] BRAIN WITHOUT IV CONTRAST STAT 10/26/2024 1:[address] LUMBAR SPINE WITHOUT IV CONTRAST STAT 10/26/2024 1:[address] CERVICAL SPINE WITHOUT IV CONTRAST STAT 10/26/2024 1:40 PM EDT XR CHEST 1 VIEW PORTABLE / BEDSIDE STAT 10/26/2024 1:34 PM EDT [id number] Routine 10/26/2024 1:01 PM EDT documented in this encounter Results * (ABNORMAL) Phosphorus (10/31/2024 5:19 AM EDT) Phosphorus 4.9(H) 2.6 - 4.7 mg/dL 10/31/2024 6:08 AM EDT [facility] Blood Venipuncture / Unknown 10/31/2024 5:19 AM EDT 10/31/2024 5:40 AM EDT us Piyush Frey MD LAB BLOOD ORDERABLES Fi nal Result [facility] [address] [phone] * (ABNORMAL) Magnesium (10/31/2024 5:19 AM EDT) Magnesium 1.6(L) 1.8 - 2.4 mg/dL 10/31/2024 6:08 AM EDT [facility] Blood Venipuncture / Unknown 10/31/2024 5:19 AM EDT 10/31/2024 5:40 AM EDT us Piyush Frey MD LAB BLOOD ORDERABLES Fi nal Result Performing Organization Address City/[facility]/ZIP Code Phone Number [facility] [address] [phone] * (ABNORMAL) Basic Metabolic Panel (10/31/2024 5:19 AM EDT) Sodium 136 136 - 145 meq/L 10/31/2024 6:08 AM EDT [facility] Potassium 5.1 3.5 - 5.1 meq/L 10/31/2024 6:08 AM EDT [facility] Chloride 103 98 - 107 meq/L 10/31/2024 6:08 AM EDT [facility] CO2 28 21 - 32 meq/L 10/31/2024 6:08 AM EDT [facility] Anion Gap 10(L) 11 - 21 10/31/2024 6:08 AM EDT [facility] BUN 14 7 - 18 mg/dL 10/31/2024 6:08 AM EDT [facility] Creatinine 0.68 0.67 - 1.17 mg/dL 10/31/2024 6:08 AM EDT [facility] BUN/Creatinine 21 10/31/2024 6:08 AM EDT [facility] Glucose 93 74 - 106 mg/dL 10/31/2024 6:08 AM EDT [facility] Calcium 9.1 8.5 - 10.1 mg/dL 10/31/2024 6:08 AM EDT [facility] Osmolality Calc 272.1 mOsm/kg 6:08 AM EDT [facility] eGFR (mL/min/1.73m2) >60 >=60 mL/min/1.7 3m2 10/31/2024 6:08 AM EDT [facility] Comment:eGFR of <60 suggests chronic kidney disease if found over a 3 month period of time. eGFR <15 indicates renal failure. Blood Venipuncture / Unknown 10/31/2024 5:19 AM EDT 10/31/2024 5:40 AM EDT us Piyush Frey MD LAB BLOOD ORDERABLES Fi nal Result [facility] [address] [phone] * (ABNORMAL) CBC - Hemogram (SJ-BKR) (10/31/2024 5:19 AM EDT) WBC 6.6 4.0 - 10.5 K/ L 10/31/2024 5:46 AM EDT [facility] RBC 4.11(L) 4.70 - 6.00 M/ L 10/31/2024 5:46 AM EDT [facility] Hemoglobin 12.0(L) 13.2 - 18.0 GM/DL 10/31/2024 5:46 AM EDT [facility] Hematocrit 39.3(L) 42.0 - 52.0 % 10/31/2024 5:46 AM EDT [facility] MCV 96 78 - 100 fL 10/31/2024 5:46 AM EDT [facility] MCH 29.2 27.0 - 31.0 pg 10/31/2024 5:46 AM EDT [facility] MCHC 30.5(L) 32.0 - 36.0 GM/DL 10/31/2024 5:46 AM EDT [facility] RDW 14.8(H) 11.5 - 14.0 % 10/31/2024 5:46 AM EDT [facility] Platelets 215 150 - 400 K/CU MM 10/31/2024 5:46 AM EDT [facility] MPV 10.3(H) 6.0 - 9.5 fL 10/31/2024 5:46 AM EDT [facility] nRBC 0 /100 WBC 10/31/2024 5:46 AM EDT [facility] Blood Venipuncture / Unknown 10/31/2024 5:19 AM EDT 10/31/2024 5:40 AM EDT us Piyush Frey MD LAB BLOOD ORDERABLES Fi nal Result Performing Organization Address [facility]/ZIP Code Phone Number [facility] [address] [place] [address] * (ABNORMAL) Phosphorus (10/29/2024 5:54 AM EDT) Phosphorus 5.0(H) 2.6 - 4.7 mg/dL 10/29/2024 6:23 AM EDT [facility] Blood Venipuncture / Unknown 10/29/2024 5:54 AM EDT 10/29/2024 5:57 AM EDT us Piyush Frey MD LAB BLOOD ORDERABLES Fi nal Result Performing Organization Address City/[facility]/ZIP Code Phone Number [facility] [address] [phone] * (ABNORMAL) Magnesium (10/29/2024 5:54 AM EDT) Magnesium 1.4(L) 1.8 - 2.4 mg/dL 10/29/2024 6:24 AM EDT [facility] Blood Venipuncture / Unknown 10/29/2024 5:54 AM EDT 10/29/2024 5:57 AM EDT us Piyush Frey MD LAB BLOOD ORDERABLES Fi nal Result [facility] [address] [phone] * (ABNORMAL) Comprehensive metabolic panel (10/29/2024 5:54 AM EDT) Sodium 135(L) 136 - 145 meq/L 10/29/2024 6:24 AM EDT [facility] Potassium 4.5 3.5 - 5.1 meq/L 10/29/2024 6:24 AM EDT [facility] Chloride 100 98 - 107 meq/L 10/29/2024 6:24 AM EDT [facility] CO2 28 21 - 32 meq/L 10/29/2024 6:24 AM EDT [facility] Calcium 9.4 8.5 - 10.1 mg/dL 10/29/2024 6:24 AM EDT [facility] Glucose 115(H) 74 - 106 mg/dL 10/29/2024 6:24 AM EDT [facility] BUN 8 7 - 18 mg/dL 10/29/2024 6:24 AM EDT [facility] Creatinine 0.64(L) 0.67 - 1.17 mg/dL 10/29/2024 6:24 AM EDT [facility] BUN/Creatinine 13 10/29/2024 6:24 AM T [facility] Albumin 3.1(L) 3.4 - 5.0 g/dL 10/29/2024 6:24 AM EDT [facility] Alkaline Phosphatase 83 46 - 116 U/L 10/29/2024 6:24 AM EDT [facility] ALT 16 16 - 63 U/L 10/29/2024 6:24 AM EDT [facility] AST 26 15 - 37 U/L 10/29/2024 6:24 AM EDT [facility] Total Bilirubin 0.4 0.2 - 1.0 mg/dL 10/29/2024 6:24 AM EDT [facility] Protein, Total 7.3 6.4 - 8.2 gm/dL 10/29/2024 6:24 AM EDT [facility] Anion Gap 12 11 - 21 10/29/2024 6:24 AM EDT [facility] A/G Ratio 0.7 10/29/2024 6:24 AM EDT [facility] Globulin 4.2 g/dL 10/29/2024 6:24 AM EDT [facility] Osmolality Calc 269.3 mOsm/kg 6:24 AM EDT [facility] eGFR (mL/min/1.73m2) >60 >=60 mL/min/1.7 3m2 10/29/2024 6:24 AM EDT [facility] Comment:ESTIMATED GFR IS NOT ACCURATE CREATININE CLEARANCE IN PREDICTING GLOMERULAR FILTRATION RATE. ESTIMATED GFR IS NOT APPLICABLE FOR DIALYSIS PATIENTS. Blood Venipuncture / Unknown 10/29/2024 5:54 AM EDT 10/29/2024 5:57 AM EDT us Piyush Frey MD LAB BLOOD ORDERABLES Fi nal Result [facility] [address] [phone] * (ABNORMAL) CBC - Hemogram (SJ-BKR) (10/29/2024 5:54 AM EDT) WBC 7.9 4.0 - 10.5 K/ L 10/29/2024 6:02 AM EDT [facility] RBC 4.21(L) 4.70 - 6.00 M/ L 10/29/2024 6:02 AM EDT [facility] Hemoglobin 12.4(L) 13.2 - 18.0 GM/DL 10/29/2024 6:02 AM EDT [facility] Hematocrit 38.8(L) 42.0 - 52.0 % 10/29/2024 6:02 AM EDT [facility] MCV 92 78 - 100 fL 10/29/2024 6:02 AM EDT [facility] MCH 29.5 27.0 - 31.0 pg 10/29/2024 6:02 AM EDT [facility] MCHC 32.0 32.0 - 36.0 GM/DL 10/29/2024 6:02 AM EDT [facility] RDW 14.6(H) 11.5 - 14.0 % 10/29/2024 6:02 AM EDT [facility] Platelets 285 150 - 400 K/CU MM 10/29/2024 6:02 AM EDT [facility] MPV 9.4 6.0 - 9.5 fL 10/29/2024 6:02 AM T [facility] nRBC 0 /100 WBC 10/29/2024 6:02 AM T [facility] Blood Venipuncture / Unknown 10/29/2024 5:54 AM EDT 10/29/2024 5:57 AM EDT us Piyush Frey MD LAB BLOOD ORDERABLES Fi nal Result [facility] [address] [phone] * (ABNORMAL) Comprehensive metabolic panel (10/28/2024 5:42 AM EDT) Sodium 141 136 - 145 meq/L 10/28/2024 7:09 AM [facility] Potassium 4.1 3.5 - 5.1 meq/L 10/28/2024 7:09 AM [facility] Chloride 105 98 - 107 meq/L 10/28/2024 7:09 AM T [facility] CO2 30 21 - 32 meq/L 10/28/2024 7:09 AM [facility] Calcium 9.2 8.5 - 10.1 mg/dL 10/28/2024 7:09 AM EDT [facility] Glucose 111(H) 74 - 106 mg/dL 10/28/2024 7:09 AM [facility] BUN 7 7 - 18 mg/dL 10/28/2024 7:09 AM [facility] Creatinine 0.62(L) 0.67 - 1.17 mg/dL 10/28/2024 7:09 AM [facility] BUN/Creatinine 11 10/28/2024 7:09 AM [facility] Albumin 3.1(L) 3.4 - 5.0 g/dL 10/28/2024 7:09 AM [facility] Alkaline Phosphatase 76 46 - 116 U/L 10/28/2024 7:09 AM [facility] ALT 14(L) 16 - 63 U/L 10/28/2024 7:09 AM [facility] AST 23 15 - 37 U/L 10/28/2024 7:09 AM [facility] Total Bilirubin 0.4 0.2 - 1.0 mg/dL 10/28/2024 7:09 AM [facility] Protein, Total 6.8 6.4 - 8.2 gm/dL 10/28/2024 7:09 AM [facility] Anion Gap 10(L) 11 - 21 10/28/2024 7:09 AM [facility] A/G Ratio 0.8 10/28/2024 7:09 AM [facility] Globulin 3.7 g/dL 10/28/2024 7:09 AM [facility] Osmolality Calc 279.9 mOsm/kg 7:09 AM [facility] eGFR (mL/min/1.73m2) >60 >=60 mL/min/1.7 3m2 10/28/2024 7:09 AM [facility] Comment:ESTIMATED GFR IS NOT ACCURATE CREATININE CLEARANCE IN PREDICTING GLOMERULAR FILTRATION RATE. ESTIMATED GFR IS NOT APPLICABLE FOR DIALYSIS PATIENTS. Blood Venipuncture / Unknown 10/28/2024 5:42 AM EDT 10/28/2024 6:32 AM EDT us Hue Granger APRN LAB BLOOD ORDERABLES Final Re sult [facility] [address] [place] [address], [facility] [phone] * (ABNORMAL) CBC with automated diff (10/28/2024 5:41 AM EDT) WBC 8.3 4.0 - 10.5 K/ L 10/28/2024 6:44 AM EDT [facility] RBC 4.04(L) 4.70 - 6.00 M/ L 10/28/2024 6:44 AM EDT [facility] Hemoglobin 12.1(L) 13.2 - 18.0 GM/DL 10/28/2024 6:44 AM EDT [facility] Hematocrit 37.9(L) 42.0 - 52.0 % 10/28/2024 6:44 AM EDT [facility] MCV 94 78 - 100 fL 10/28/2024 6:44 AM EDT [facility] MCH 30.0 27.0 - 31.0 pg 10/28/2024 6:44 AM EDT [facility] MCHC 31.9(L) 32.0 - 36.0 GM/DL 10/28/2024 6:44 AM EDT [facility] RDW 14.6(H) 11.5 - 14.0 % 10/28/2024 6:44 AM EDT [facility] Platelets 161 150 - 400 K/CU MM 10/28/2024 6:44 AM EDT [facility] MPV 12.4(H) 6.0 - 9.5 fL 10/28/2024 6:44 AM EDT [facility] Nucleated Red Blood Cell 0.0 0 - 0.2 % 10/28/2024 6:44 AM EDT [facility] % Neutros 62 41 - 80 % 10/28/2024 6:44 AM EDT [facility] % Lymphs 25 15 - 48 % 10/28/2024 6:44 AM EDT [facility] % Monos 8 0 - 12 % 10/28/2024 6:44 AM EDT [facility] % Eos 4 0 - 5 % 10/28/2024 6:44 AM EDT [facility] % Baso 1 0 - 2 % 10/28/2024 6:44 AM EDT [facility] # Neutros 5.12 1.56 - 6.13 K/ L 10/28/2024 6:44 AM EDT [facility] # Lymphs 2.06 K/ L 10/28/2024 6:44 AM EDT [facility] # Monos 0.69 0.24 - 0.86 K/ L 10/28/2024 6:44 AM EDT [facility] # Eos 0.29 0.04 - 0.54 K/ L 10/28/2024 6:44 AM EDT [facility] # Baso 0.06 0.01 - 0.08 K/ L 10/28/2024 6:44 AM EDT [facility] Immature Granulocytes-Re lative 0.40 0.00 - 0.60 % 10/28/2024 6:44 AM EDT [facility] # IG 0.03 0.00 - 0.05 K/uL 10/28/2024 6:44 AM EDT [facility] Blood Venipuncture / Unknown 10/28/2024 5:41 AM EDT 10/28/2024 6:31 AM EDT Narrative [facility] - 10/28/2024 6:44 AM EDT When CBC w/ Auto Diff is ordered the lab will add a Manual Differential as a quality check at no additional charge if: Lymphocytes greater than seventy five percent with normal or increased WBC Monocytes greater than Fifteen percent Basophil greater than four percent Bands >10% or several immature myeloids are seen on scan Blast? Flag noted Atypical Lymph flag noted us Heu Granger APRN LAB BLOOD ORDERABLES Final Re sult [facility] [address] [phone] * TSH (10/27/2024 6:00 AM EDT) TSH 1.599 0.358 - 3.740 uIU/mL 10/27/2024 6:40 AM EDT [facility] Blood Venipuncture / Unknown 10/27/2024 6:00 AM EDT 10/27/2024 6:06 AM EDT Michael Corral MD LAB BLOOD ORDERABLES Final Resul t [facility] [address] [phone] * (ABNORMAL) CBC with automated diff (10/27/2024 6:00 AM EDT) WBC 5.8 4.0 - 10.5 K/ L 10/27/2024 6:12 AM EDT [facility] RBC 3.57(L) 4.70 - 6.00 M/ L 10/27/2024 6:12 AM EDT [facility] Hemoglobin 10.6(L) 13.2 - 18.0 GM/DL 10/27/2024 6:12 AM T [facility] Hematocrit 34.5(L) 42.0 - 52.0 % 10/27/2024 6:12 AM T [facility] MCV 97 78 - 100 fL 10/27/2024 6:12 AM [facility] MCH 29.7 27.0 - 31.0 pg 10/27/2024 6:12 AM T [facility] MCHC 30.7(L) 32.0 - 36.0 GM/DL 10/27/2024 6:12 AM EDT [facility] RDW 15.3(H) 11.5 - 14.0 % 10/27/2024 6:12 AM T [facility] Platelets 266 150 - 400 K/CU MM 10/27/2024 6:12 AM T [facility] MPV 9.1 6.0 - 9.5 fL 10/27/2024 6:12 AM [facility] Nucleated Red Blood Cell 0.0 0 - 0.2 % 10/27/2024 6:12 AM T [facility] % Neutros 45 41 - 80 % 10/27/2024 6:12 AM EDT [facility] % Lymphs 40 15 - 48 % 10/27/2024 6:12 AM EDT [facility] % Monos 9 0 - 12 % 10/27/2024 6:12 AM EDT [facility] % Eos 6(H) 0 - 5 % 10/27/2024 6:12 AM EDT [facility] % Baso 1 0 - 2 % 10/27/2024 6:12 AM EDT [facility] # Neutros 2.60 1.56 - 6.13 K/ L 10/27/2024 6:12 AM EDT [facility] # Lymphs 2.28 K/ L 10/27/2024 6:12 AM EDT [facility] # Monos 0.49 0.24 - 0.86 K/ L 10/27/2024 6:12 AM EDT [facility] # Eos 0.34 0.04 - 0.54 K/ L 10/27/2024 6:12 AM EDT [facility] # Baso 0.05 0.01 - 0.08 K/ L 10/27/2024 6:12 AM EDT [facility] Immature Granulocytes-Re lative 0.20 0.00 - 0.60 % 10/27/2024 6:12 AM T [facility] # IG 0.01 0.00 - 0.05 K/uL 10/27/2024 6:12 AM T [facility] Blood Venipuncture / Unknown 10/27/2024 6:00 AM EDT 10/27/2024 6:05 AM EDT Narrative [facility] - 10/27/2024 6:12 AM EDT When CBC w/ Auto Diff is ordered the lab will add a Manual Differential as a quality check at no additional charge if: Lymphocytes greater than seventy five percent with normal or increased WBC Monocytes greater than Fifteen percent Basophil greater than four percent Bands >10% or several immature myeloids are seen on scan Blast? Flag noted Atypical Lymph flag noted us Michael Corral MD LAB BLOOD ORDERABLES Final Resul t [facility] [address] [phone] * (ABNORMAL) Basic Metabolic Panel (10/27/2024 6:00 AM EDT) Sodium 137 136 - 145 meq/L 10/27/2024 6:40 AM EDT [facility] Potassium 4.5 3.5 - 5.1 meq/L 10/27/2024 6:40 AM EDT [facility] Chloride 104 98 - 107 meq/L 10/27/2024 6:40 AM EDT [facility] CO2 30 21 - 32 meq/L 10/27/2024 6:40 AM [facility] Anion Gap 8(L) 11 - 21 10/27/2024 6:40 AM T [facility] BUN 11 7 - 18 mg/dL 10/27/2024 6:40 AM T [facility] Creatinine 0.65(L) 0.67 - 1.17 mg/dL 10/27/2024 6:40 AM T [facility] BUN/Creatinine 17 10/27/2024 6:40 AM T [facility] Glucose 96 74 - 106 mg/dL 10/27/2024 6:40 AM [facility] Calcium 8.3(L) 8.5 - 10.1 mg/dL 10/27/2024 6:40 AM [facility] Osmolality Calc 273.1 mOsm/kg 6:40 AM T [facility] eGFR (mL/min/1.73m2) >60 >=60 mL/min/1.7 3m2 10/27/2024 6:40 AM T [facility] Comment:eGFR of <60 suggests chronic kidney disease if found over a 3 month period of time. eGFR <15 indicates renal failure. Blood Venipuncture / Unknown 10/27/2024 6:00 AM EDT 10/27/2024 6:06 AM EDT Michael Corral MD LAB BLOOD ORDERABLES Final Resul t [facility] [address] [place] [address], [facility] [phone] * Magnesium (10/27/2024 6:00 AM EDT) Pathologist [facility] Magnesium 1.8 1.8 - 2.4 mg/dL 10/27/2024 6:40 AM EDT [facility] Blood Venipuncture / Unknown 10/27/2024 6:00 AM EDT 10/27/2024 6:06 AM EDT us Michael Corral MD LAB BLOOD ORDERABLES Final Resul t Performing Organization Address [facility] Phone Number [facility] [address] [phone] * (ABNORMAL) PROBNP (10/27/2024 6:00 AM EDT) Pathologist [facility] ProBNP (pg/mL) 151(H) <125 pg/mL 10/27/2024 6:40 AM EDT [facility] Blood Venipuncture / Unknown 10/27/2024 6:00 AM EDT 10/27/2024 6:06 AM EDT us Michael Corral MD LAB BLOOD ORDERABLES Final Resul t Performing Organization Address [facility] Phone Number [facility] [address] [phone] * (ABNORMAL) Urinalysis Microscopic Only (10/26/2024 2:07 PM EDT) WBC, UA 0-5 None Seen, 0-5 /HPF 10/26/2024 2:30 PM EDT [facility] RBC, UA 6-10(A) None Seen, Rare /HPF 10/26/2024 2:30 PM EDT [facility] Bacteria, UA Trace(A) None Seen 10/26/2024 2:30 PM EDT [facility] Mucus Trace Trace 10/26/2024 2:30 PM EDT [facility] SQUAMOUS EPITHELIAL Rare None Seen, Rare /HPF 10/26/2024 2:30 PM EDT [facility] Urine URINE SPECIMEN COLLECTION, CLEAN CATCH / Unknown 10/26/2024 2:07 PM EDT 10/26/2024 2:10 PM EDT Sydni Blancas PA-C URINE ORDERABLES Final Result [facility] [address] [phone] * (ABNORMAL) Triage Drug Screen, Urine (10/26/2024 2:07 PM EDT) Amphetamine Urine Negative Negative 025 2:18 PM EDT [facility] Barbiturate Screen Negative Negative 2024 2:18 PM EDT [facility] Benzodiazepine Screen Positive(A ) Negative 10/26/2024 2:18 PM EDT [facility] Cocaine (Metab.) Screen Negative Negative 10/26/2024 2:18 PM EDT [facility] MDMA Ur Negative Negative 10/26/2024 2:18 PM EDT [facility] Methadone Screen Negative Negative 10/27/19 2:18 PM EDT [facility] Opiate Screen Negative Negative 10/26/2024 2:18 PM EDT [facility] Phencyclidine Screen Negative Negative 09/2024 2:18 PM EDT [facility] Tricyclic Screen Negative Negative 10/27/19 2:18 PM EDT [facility] Tetrahydrocannabinol Negative Negative 09/2024 2:18 PM EDT [facility] Methamphetamine Screen Negative Negative 2:18 PM EDT [facility] Oxycodone Screen Negative Negative 10/27/19 2:18 PM EDT [facility] Urine 10/26/2024 2:07 PM EDT 10/26/2024 2:10 PM EDT Narrative [facility] - 10/26/2024 2:18 PM EDT This urine drug of abuse screen is for medical purposes only. A positive result is a preliminary analytical result which has not been confirmed. Drug Cutoff Limits are: Amp/Methamp: 1000 ng/mL Barbiturates: 200 ng/mL Benzodiazepines: 200 ng/mL Cannabinoids: 50 ng/mL Cocaine Metabolites: 300 ng/mL Fentanyl: 1.0 ng/mL Opiates: 300 ng/mL Sydni Blancas PA-C URINE ORDERABLES Final Result [facility] [address] [phone] * (ABNORMAL) Urinalysis, Reflex Microscopic and Culture If Indicated (10/26/2024 2:07 PM EDT) Color, UA Yellow 10/26/2024 2:18 PM EDT [facility] Clarity, UA Clear 10/26/2024 2:18 PM EDT [facility] Specific Morton, UA 1.015 1.005 - 1.030 10/26/2024 2:18 PM EDT [facility] pH, UA 6.0 5.0 - 9.0 10/26/2024 2:18 PM EDT [facility] Leukocytes, UA Negative Negative 10/26/2024 2:18 PM EDT [facility] Nitrite, UA Negative Negative 10/26/2024 2:18 PM EDT [facility] Protein, UA Negative Negative 10/26/2024 2:18 PM EDT [facility] Glucose, UA Negative Negative 10/26/2024 2:18 PM EDT [facility] Ketones, UA Negative Negative 10/26/2024 2:18 PM EDT [facility] Bilirubin, UA Negative Negative 10/26/2024 2:18 PM EDT [facility] Blood, UA Trace(A) Negative 10/26/2024 2:18 PM EDT [facility] Urobilinogen, UA 0.2 mg/dL Normal 10/26/2024 2:18 PM EDT [facility] Specimen Source Urine, Clean Catch 10/26/2024 2:18 PM EDT [facility] Urine URINE SPECIMEN COLLECTION, CLEAN CATCH / Unknown 10/26/2024 2:07 PM EDT 10/26/2024 2:10 PM EDT Sydni Blancas PA-C URINE ORDERABLES Final Result Performing Organization Address City/[facility]/ZIP Code Phone Number [facility] [address] [phone] * Ethanol (10/26/2024 1:59 PM EDT) Ethanol Lvl <3 <3 mg/dL 10/26/2024 2:45 PM EDT [facility] Blood Venipuncture / Unknown 10/26/2024 1:59 PM EDT 10/26/2024 2:02 PM EDT Narrative [facility] - 10/26/2024 2:45 PM EDT Lower limit of detection is 10.00 mg/dL. 50-100 mg/dL
Impaired Reflexes: 100-300 mg/dL
Depression of [employer]TER: 300 mg/dL or >
Coma may occur; 400 mg/dL or >
may occur

This test is not intended for legal purposes or use in employment related testing. Sydni BHAGAT-C LAB BLOOD ORDERABLES Final Resul t Performing Organization Address City/[facility]/ZIP Code Phone Number [facility] [address] [place] [address] * (ABNORMAL) High Sensitivity Troponin I (10/26/2024 1:59 PM EDT) Troponin I High Sensitivity (pg/mL) <4(L) 4 - 60.3 pg/mL 10/26/2024 2:30 PM EDT [facility] Comment: Troponin Result (pg/mL) *Interpretation 4-60.3 *Normal; less than 99th percentile of normal range >60.3 *Abnormal; greater than 99th percentile of normal range Biotin specimen concentration >300 ng/mL may lead to falsely depressed results for patient samples. Do not use this test for renal dysfunction patients (eGFR <60) unless it is confirmed that the patient is not taking Biotin. Blood Venipuncture / Unknown 10/26/2024 1:59 PM EDT 10/26/2024 2:02 PM EDT Sydni Yonny PA-C LAB BLOOD ORDERABLES Final Resul t Performing Organization Address City/[facility]/ZIP Code Phone Number [facility] [address] [phone] * (ABNORMAL) Magnesium (10/26/2024 1:59 PM EDT) Magnesium 1.7(L) 1.8 - 2.4 mg/dL 10/26/2024 2:46 PM EDT [facility] Blood Venipuncture / Unknown 10/26/2024 1:59 PM EDT 10/26/2024 2:02 PM EDT Sydni Yonny OLAYINKA-C LAB BLOOD ORDERABLES Final Resul t Performing Organization Address [facility] Phone Number [facility] [address] [place] [address], [facility] [phone] * Lipase (10/26/2024 1:59 PM EDT) Lipase 68 16 - 77 U/L 10/26/2024 2:46 PM EDT [facility] Blood Venipuncture / Unknown 10/26/2024 1:59 PM EDT 10/26/2024 2:02 PM EDT Sydni Blancas PA-C LAB BLOOD ORDERABLES Final Resul t Performing Organization Address [facility] Phone Number [facility] [address] [place] [address], [facility] [phone] * (ABNORMAL) Comprehensive metabolic panel (10/26/2024 1:59 PM EDT) Sodium 139 136 - 145 meq/L 10/26/2024 2:46 PM [facility] Potassium 4.3 3.5 - 5.1 meq/L 10/26/2024 2:46 PM [facility] Chloride 101 98 - 107 meq/L 10/26/2024 2:46 PM [facility] CO2 30 21 - 32 meq/L 10/26/2024 2:46 PM [facility] Calcium 9.4 8.5 - 10.1 mg/dL 10/26/2024 2:46 PM [facility] Glucose 104 74 - 106 mg/dL 10/26/2024 2:46 PM [facility] BUN 12 7 - 18 mg/dL 10/26/2024 2:46 PM [facility] Creatinine 0.61(L) 0.67 - 1.17 mg/dL 10/26/2024 2:46 PM [facility] BUN/Creatinine 20 10/26/2024 2:46 PM [facility] Albumin 3.2(L) 3.4 - 5.0 g/dL 10/26/2024 2:46 PM [facility] Alkaline Phosphatase 81 46 - 116 U/L 10/26/2024 2:46 PM [facility] ALT 14(L) 16 - 63 U/L 10/26/2024 2:46 PM [facility] AST 24 15 - 37 U/L 10/26/2024 2:46 PM [facility] Total Bilirubin 0.2 0.2 - 1.0 mg/dL 10/26/2024 2:46 PM [facility] Protein, Total 7.4 6.4 - 8.2 gm/dL 10/26/2024 2:46 PM [facility] Anion Gap 12 11 - 21 10/26/2024 2:46 PM [facility] A/G Ratio 0.8 10/26/2024 2:46 PM [facility] Globulin 4.2 g/dL 10/26/2024 2:46 PM EDT [facility] Osmolality Calc 277.6 mOsm/kg 2:46 PM EDT [facility] eGFR (mL/min/1.73m2) >60 >=60 mL/min/1.7 3m2 10/26/2024 2:46 PM EDT [facility] Comment:ESTIMATED GFR IS NOT ACCURATE CREATININE CLEARANCE IN PREDICTING GLOMERULAR FILTRATION RATE. ESTIMATED GFR IS NOT APPLICABLE FOR DIALYSIS PATIENTS. Blood Venipuncture / Unknown 10/26/2024 1:59 PM EDT 10/26/2024 2:02 PM EDT us Sydni Blancas PA-C LAB BLOOD ORDERABLES Final Resul t [facility] [address] [phone] * (ABNORMAL) CBC with Auto Diff (10/26/2024 1:59 PM EDT) WBC 6.8 4.0 - 10.5 K/ L 10/26/2024 2:06 PM EDT [facility] RBC 4.18(L) 4.70 - 6.00 M/ L 10/26/2024 2:06 PM T [facility] Hemoglobin 12.5(L) 13.2 - 18.0 GM/DL 10/26/2024 2:06 PM T [facility] Hematocrit 40.1(L) 42.0 - 52.0 % 10/26/2024 2:06 PM EDT [facility] MCV 96 78 - 100 fL 10/26/2024 2:06 PM EDT [facility] MCH 29.9 27.0 - 31.0 pg 10/26/2024 2:06 PM EDT [facility] MCHC 31.2(L) 32.0 - 36.0 GM/DL 10/26/2024 2:06 PM EDT [facility] RDW 15.3(H) 11.5 - 14.0 % 10/26/2024 2:06 PM EDT [facility] Platelets 220 150 - 400 K/CU MM 10/26/2024 2:06 PM EDT [facility] MPV 10.6(H) 6.0 - 9.5 fL 10/26/2024 2:06 PM EDT [facility] Nucleated Red Blood Cell 0.0 0 - 0.2 % 10/26/2024 2:06 PM EDT [facility] % Neutros 51 41 - 80 % 10/26/2024 2:06 PM EDT [facility] % Lymphs 33 15 - 48 % 10/26/2024 2:06 PM EDT [facility] % Monos 9 0 - 12 % 10/26/2024 2:06 PM EDT [facility] % Eos 6(H) 0 - 5 % 10/26/2024 2:06 PM [facility] % Baso 1 0 - 2 % 10/26/2024 2:06 PM EDT [facility] # Neutros 3.45 1.56 - 6.13 K/ L 10/26/2024 2:06 PM T [facility] # Lymphs 2.23 K/ L 10/26/2024 2:06 PM EDT [facility] # Monos 0.59 0.24 - 0.86 K/ L 10/26/2024 2:06 PM EDT [facility] # Eos 0.38 0.04 - 0.54 K/ L 10/26/2024 2:06 PM EDT [facility] # Baso 0.07 0.01 - 0.08 K/ L 10/26/2024 2:06 PM EDT [facility] Immature Granulocytes-Re lative 0.40 0.00 - 0.60 % 10/26/2024 2:06 PM [facility] # IG 0.03 0.00 - 0.05 K/uL 10/26/2024 2:06 PM [facility] Blood Venipuncture / Unknown 10/26/2024 1:59 PM EDT 10/26/2024 2:02 PM EDT Narrative [facility] - 10/26/2024 2:06 PM EDT When CBC w/ Auto Diff is ordered the lab will add a Manual Differential as a quality check at no additional charge if: Lymphocytes greater than seventy five percent with normal or increased WBC Monocytes greater than Fifteen percent Basophil greater than four percent Bands >10% or several immature myeloids are seen on scan Blast? Flag noted Atypical Lymph flag noted us Sydni Blancas PA-C LAB BLOOD ORDERABLES Final Resul t [facility] [address] [phone] * CT spine lumbar without IV contrast (10/26/2024 1:40 PM EDT) Anatomical Region Laterality Modality T-spine, L-spine, Pelvis Compute d Tomography (CT) 10/26/2024 2:30 PM EDT Impressions 10/26/2024 2:35 PM EDT No acute intracranial abnormality. CT CERVICAL SPINE 10/26/2024 1:29 PM HISTORY: Seizures and delirium tremens, pain all over COMPARISON: None. PROCEDURE: Axial images were obtained from the skull base to the thoracic inlet by computed tomography. 3 D reconstruction images were performed. This study was performed with techniques to keep radiation doses as low as reasonably achievable, (ALARA). Individualized dose reduction techniques using automated exposure control or adjustment of mA and/or kV according to the patient size were employed. FINDINGS: There is no acute fracture. There is no facet lock. The craniocervical junction is intact. There is degenerative disc disease at C5 and C6. There is no acute paraspinal abnormality. IMPRESSION: No acute osseous abnormality of the cervical spine. CT LUMBAR SPINE HISTORY: Seizure, delirium tremens, pain all over. TECHNIQUE: Thin section axial images were obtained through the lumbar spine without contrast. Coronal and sagittal reconstruction images were obtained from the axial data. This study was performed with techniques to keep radiation doses as low as reasonably achievable (ALARA). Individualized dose reduction techniques using automated exposure control or adjustment of mA and/or KV according to the patient size were employed. COMPARISON: None. FINDINGS: There is no acute fracture. There is evidence of prior hardware placement from L1 through L3. This has subsequently been removed. There is a very mild compression deformity of the superior endplate of L2 which appears chronic. Remaining vertebral body height is preserved. There is multilevel degenerative disc disease. There is no acute paraspinal abnormality. There are multiple bilateral nonobstructing renal stones. IMPRESSION: No acute osseous abnormality of the lumbar spine. Evidence of prior surgery and hardware removal. Degenerative disc disease. Images reviewed, interpreted, and dictated by Dr. Stephy Hanson. Transcribed by Rene Diallo(Marni). Narrative 10/26/2024 2:[address] SCAN OF THE HEAD WITHOUT CONTRAST INDICATION: Seizures and delirium tremens. TECHNIQUE: Multiple axial CT images were performed from the foramen magnum to the vertex without contrast. Coronal reconstruction images were obtained from the axial data. This study was performed with techniques to keep radiation doses as low as reasonably achievable (ALARA). Individualized dose reduction techniques using automated exposure control or adjustment of mA and/or KV according to the patient size were employed. COMPARISON: None. FINDINGS: There is no mass effect or midline shift. The ventricles are symmetric in size and configuration. There is no hydrocephalus. There are no extra-axial fluid collections. There is no intraventricular or intraparenchymal hemorrhage. The posterior fossa has a normal CT appearance. There is mild mucoperiosteal thickening in the left maxillary sinus. No acute osseous abnormalities are present. Procedure Note Stephy Hanson MD - 10/26/2024 CT SCAN OF THE HEAD WITHOUT CONTRAST INDICATION: Seizures and delirium tremens. TECHNIQUE: Multiple axial CT images were performed from the foramen magnum to the vertex without contrast. Coronal reconstruction images were obtained from the axial data. This study was performed with techniques to keep radiation doses as low as reasonably achievable (ALARA). Individualized dose reduction techniques using automated exposure control or adjustment of mA and/or KV according to the patient size were employed. COMPARISON: None. FINDINGS: There is no mass effect or midline shift. The ventricles are symmetric in size and configuration. There is no hydrocephalus. There are no extra-axial fluid collections. There is no intraventricular or intraparenchymal hemorrhage. The posterior fossa has a normal CT appearance. There is mild mucoperiosteal thickening in the left maxillary sinus. No acute osseous abnormalities are present. IMPRESSION: No acute intracranial abnormality. CT CERVICAL SPINE 10/26/2024 1:29 PM HISTORY: Seizures and delirium tremens, pain all over COMPARISON: None. PROCEDURE: Axial images were obtained from the skull base to the thoracic inlet by computed tomography. 3 D reconstruction images were performed. This study was performed with techniques to keep radiation doses as low as reasonably achievable, (ALARA). Individualized dose reduction techniques using automated exposure control or adjustment of mA and/or kV according to the patient size were employed. FINDINGS: There is no acute fracture. There is no facet lock. The craniocervical junction is intact. There is degenerative disc disease at C5 and C6. There is no acute paraspinal abnormality. IMPRESSION: No acute osseous abnormality of the cervical spine. CT LUMBAR SPINE HISTORY: Seizure, delirium tremens, pain all over. TECHNIQUE: Thin section axial images were obtained through the lumbar spine without contrast. Coronal and sagittal reconstruction images were obtained from the axial data. This study was performed with techniques to keep radiation doses as low as reasonably achievable (ALARA). Individualized dose reduction techniques using automated exposure control or adjustment of mA and/or KV according to the patient size were employed. COMPARISON: None. FINDINGS: There is no acute fracture. There is evidence of prior hardware placement from L1 through L3. This has subsequently been removed. There is a very mild compression deformity of the superior endplate of L2 which appears chronic. Remaining vertebral body height is preserved. There is multilevel degenerative disc disease. There is no acute paraspinal abnormality. There are multiple bilateral nonobstructing renal stones. IMPRESSION: No acute osseous abnormality of the lumbar spine. Evidence of prior surgery and hardware removal. Degenerative disc disease. Images reviewed, interpreted, and dictated by Dr. Stephy aHnson. Transcribed by Rene Diallo(R). Sydni Blancas PA-C [facility] CT ORDERABLES Final Result * CT cervical spine without contrast (10/26/2024 1:40 PM EDT) Anatomical Region Laterality Modality C-spine, T-spine, Neck Computed Tomography (CT) 10/26/2024 2:30 PM EDT Impressions 10/26/2024 2:35 PM EDT No acute intracranial abnormality. CT CERVICAL SPINE 10/26/2024 1:29 PM HISTORY: Seizures and delirium tremens, pain all over COMPARISON: None. PROCEDURE: Axial images were obtained from the skull base to the thoracic inlet by computed tomography. 3 D reconstruction images were performed. This study was performed with techniques to keep radiation doses as low as reasonably achievable, (ALARA). Individualized dose reduction techniques using automated exposure control or adjustment of mA and/or kV according to the patient size were employed. FINDINGS: There is no acute fracture. There is no facet lock. The craniocervical junction is intact. There is degenerative disc disease at C5 and C6. There is no acute paraspinal abnormality. IMPRESSION: No acute osseous abnormality of the cervical spine. CT LUMBAR SPINE HISTORY: Seizure, delirium tremens, pain all over. TECHNIQUE: Thin section axial images were obtained through the lumbar spine without contrast. Coronal and sagittal reconstruction images were obtained from the axial data. This study was performed with techniques to keep radiation doses as low as reasonably achievable (ALARA). Individualized dose reduction techniques using automated exposure control or adjustment of mA and/or KV according to the patient size were employed. COMPARISON: None. FINDINGS: There is no acute fracture. There is evidence of prior hardware placement from L1 through L3. This has subsequently been removed. There is a very mild compression deformity of the superior endplate of L2 which appears chronic. Remaining vertebral body height is preserved. There is multilevel degenerative disc disease. There is no acute paraspinal abnormality. There are multiple bilateral nonobstructing renal stones. IMPRESSION: No acute osseous abnormality of the lumbar spine. Evidence of prior surgery and hardware removal. Degenerative disc disease. Images reviewed, interpreted, and dictated by Dr. Stephy Hanson. Transcribed by Rene Diallo(Marni). Narrative 10/26/2024 2:[address] SCAN OF THE HEAD WITHOUT CONTRAST INDICATION: Seizures and delirium tremens. TECHNIQUE: Multiple axial CT images were performed from the foramen magnum to the vertex without contrast. Coronal reconstruction images were obtained from the axial data. This study was performed with techniques to keep radiation doses as low as reasonably achievable (ALARA). Individualized dose reduction techniques using automated exposure control or adjustment of mA and/or KV according to the patient size were employed. COMPARISON: None. FINDINGS: There is no mass effect or midline shift. The ventricles are symmetric in size and configuration. There is no hydrocephalus. There are no extra-axial fluid collections. There is no intraventricular or intraparenchymal hemorrhage. The posterior fossa has a normal CT appearance. There is mild mucoperiosteal thickening in the left maxillary sinus. No acute osseous abnormalities are present. Procedure Note Stephy Hanson MD - 10/26/2024 CT SCAN OF THE HEAD WITHOUT CONTRAST INDICATION: Seizures and delirium tremens. TECHNIQUE: Multiple axial CT images were performed from the foramen magnum to the vertex without contrast. Coronal reconstruction images were obtained from the axial data. This study was performed with techniques to keep radiation doses as low as reasonably achievable (ALARA). Individualized dose reduction techniques using automated exposure control or adjustment of mA and/or KV according to the patient size were employed. COMPARISON: None. FINDINGS: There is no mass effect or midline shift. The ventricles are symmetric in size and configuration. There is no hydrocephalus. There are no extra-axial fluid collections. There is no intraventricular or intraparenchymal hemorrhage. The posterior fossa has a normal CT appearance. There is mild mucoperiosteal thickening in the left maxillary sinus. No acute osseous abnormalities are present. IMPRESSION: No acute intracranial abnormality. CT CERVICAL SPINE 10/26/2024 1:29 PM HISTORY: Seizures and delirium tremens, pain all over COMPARISON: None. PROCEDURE: Axial images were obtained from the skull base to the thoracic inlet by computed tomography. 3 D reconstruction images were performed. This study was performed with techniques to keep radiation doses as low as reasonably achievable, (ALARA). Individualized dose reduction techniques using automated exposure control or adjustment of mA and/or kV according to the patient size were employed. FINDINGS: There is no acute fracture. There is no facet lock. The craniocervical junction is intact. There is degenerative disc disease at C5 and C6. There is no acute paraspinal abnormality. IMPRESSION: No acute osseous abnormality of the cervical spine. CT LUMBAR SPINE HISTORY: Seizure, delirium tremens, pain all over. TECHNIQUE: Thin section axial images were obtained through the lumbar spine without contrast. Coronal and sagittal reconstruction images were obtained from the axial data. This study was performed with techniques to keep radiation doses as low as reasonably achievable (ALARA). Individualized dose reduction techniques using automated exposure control or adjustment of mA and/or KV according to the patient size were employed. COMPARISON: None. FINDINGS: There is no acute fracture. There is evidence of prior hardware placement from L1 through L3. This has subsequently been removed. There is a very mild compression deformity of the superior endplate of L2 which appears chronic. Remaining vertebral body height is preserved. There is multilevel degenerative disc disease. There is no acute paraspinal abnormality. There are multiple bilateral nonobstructing renal stones. IMPRESSION: No acute osseous abnormality of the lumbar spine. Evidence of prior surgery and hardware removal. Degenerative disc disease. Images reviewed, interpreted, and dictated by Dr. Stephy Hanson. Transcribed by Rene Diallo(R). Sydni Blancas PA-C IMG CT ORDERABLES Final Result * CT brain without IV contrast (10/26/2024 1:40 PM EDT) Anatomical Region Laterality Modality Brain, Head Computed Tomogra phy (CT) 10/26/2024 2:30 PM EDT Impressions 10/26/2024 2:35 PM EDT No acute intracranial abnormality. CT CERVICAL SPINE 10/26/2024 1:29 PM HISTORY: Seizures and delirium tremens, pain all over COMPARISON: None. PROCEDURE: Axial images were obtained from the skull base to the thoracic inlet by computed tomography. 3 D reconstruction images were performed. This study was performed with techniques to keep radiation doses as low as reasonably achievable, (ALARA). Individualized dose reduction techniques using automated exposure control or adjustment of mA and/or kV according to the patient size were employed. FINDINGS: There is no acute fracture. There is no facet lock. The craniocervical junction is intact. There is degenerative disc disease at C5 and C6. There is no acute paraspinal abnormality. IMPRESSION: No acute osseous abnormality of the cervical spine. CT LUMBAR SPINE HISTORY: Seizure, delirium tremens, pain all over. TECHNIQUE: Thin section axial images were obtained through the lumbar spine without contrast. Coronal and sagittal reconstruction images were obtained from the axial data. This study was performed with techniques to keep radiation doses as low as reasonably achievable (ALARA). Individualized dose reduction techniques using automated exposure control or adjustment of mA and/or KV according to the patient size were employed. COMPARISON: None. FINDINGS: There is no acute fracture. There is evidence of prior hardware placement from L1 through L3. This has subsequently been removed. There is a very mild compression deformity of the superior endplate of L2 which appears chronic. Remaining vertebral body height is preserved. There is multilevel degenerative disc disease. There is no acute paraspinal abnormality. There are multiple bilateral nonobstructing renal stones. IMPRESSION: No acute osseous abnormality of the lumbar spine. Evidence of prior surgery and hardware removal. Degenerative disc disease. Images reviewed, interpreted, and dictated by Dr. Stephy Hanson. Transcribed by Rene Diallo(Marni). Narrative 10/26/2024 2:[address] SCAN OF THE HEAD WITHOUT CONTRAST INDICATION: Seizures and delirium tremens. TECHNIQUE: Multiple axial CT images were performed from the foramen magnum to the vertex without contrast. Coronal reconstruction images were obtained from the axial data. This study was performed with techniques to keep radiation doses as low as reasonably achievable (ALARA). Individualized dose reduction techniques using automated exposure control or adjustment of mA and/or KV according to the patient size were employed. COMPARISON: None. FINDINGS: There is no mass effect or midline shift. The ventricles are symmetric in size and configuration. There is no hydrocephalus. There are no extra-axial fluid collections. There is no intraventricular or intraparenchymal hemorrhage. The posterior fossa has a normal CT appearance. There is mild mucoperiosteal thickening in the left maxillary sinus. No acute osseous abnormalities are present. Procedure Note Stephy Hanson MD - 10/26/2024 CT SCAN OF THE HEAD WITHOUT CONTRAST INDICATION: Seizures and delirium tremens. TECHNIQUE: Multiple axial CT images were performed from the foramen magnum to the vertex without contrast. Coronal reconstruction images were obtained from the axial data. This study was performed with techniques to keep radiation doses as low as reasonably achievable (ALARA). Individualized dose reduction techniques using automated exposure control or adjustment of mA and/or KV according to the patient size were employed. COMPARISON: None. FINDINGS: There is no mass effect or midline shift. The ventricles are symmetric in size and configuration. There is no hydrocephalus. There are no extra-axial fluid collections. There is no intraventricular or intraparenchymal hemorrhage. The posterior fossa has a normal CT appearance. There is mild mucoperiosteal thickening in the left maxillary sinus. No acute osseous abnormalities are present. IMPRESSION: No acute intracranial abnormality. CT CERVICAL SPINE 10/26/2024 1:29 PM HISTORY: Seizures and delirium tremens, pain all over COMPARISON: None. PROCEDURE: Axial images were obtained from the skull base to the thoracic inlet by computed tomography. 3 D reconstruction images were performed. This study was performed with techniques to keep radiation doses as low as reasonably achievable, (ALARA). Individualized dose reduction techniques using automated exposure control or adjustment of mA and/or kV according to the patient size were employed. FINDINGS: There is no acute fracture. There is no facet lock. The craniocervical junction is intact. There is degenerative disc disease at C5 and C6. There is no acute paraspinal abnormality. IMPRESSION: No acute osseous abnormality of the cervical spine. CT LUMBAR SPINE HISTORY: Seizure, delirium tremens, pain all over. TECHNIQUE: Thin section axial images were obtained through the lumbar spine without contrast. Coronal and sagittal reconstruction images were obtained from the axial data. This study was performed with techniques to keep radiation doses as low as reasonably achievable (ALARA). Individualized dose reduction techniques using automated exposure control or adjustment of mA and/or KV according to the patient size were employed. COMPARISON: None. FINDINGS: There is no acute fracture. There is evidence of prior hardware placement from L1 through L3. This has subsequently been removed. There is a very mild compression deformity of the superior endplate of L2 which appears chronic. Remaining vertebral body height is preserved. There is multilevel degenerative disc disease. There is no acute paraspinal abnormality. There are multiple bilateral nonobstructing renal stones. IMPRESSION: No acute osseous abnormality of the lumbar spine. Evidence of prior surgery and hardware removal. Degenerative disc disease. Images reviewed, interpreted, and dictated by Dr. Stephy Hanson. Transcribed by Rene Diallo(R). Sydni Blancas PA-C [facility] [place] CT ORDERABLES Final Result * XR chest 1 view portable / bedside (10/26/2024 1:34 PM EDT) Anatomical Region Laterality Modality X-Ray 10/26/2024 2:33 PM EDT Impressions 10/26/2024 2:36 PM EDT No acute process. Images reviewed, interpreted, and dictated by Dr. Stephy Hanson. Transcribed by Rene Diallo(R). Narrative 10/26/2024 2:36 PM EDT PORTABLE CHEST HISTORY: Delirium tremens. COMPARISON: None. FINDINGS: A portable view of the chest was obtained. The cardiac silhouette is normal in size. The mediastinal silhouette is within normal limits. The lungs are clear. There is no pleural effusion or pneumothorax. No acute osseous abnormality is identified. Procedure Note Stephy Hanson MD - 10/26/2024 PORTABLE CHEST HISTORY: Delirium tremens. COMPARISON: None. FINDINGS: A portable view of the chest was obtained. The cardiac silhouette is normal in size. The mediastinal silhouette is within normal limits. The lungs are clear. There is no pleural effusion or pneumothorax. No acute osseous abnormality is identified. IMPRESSION: No acute process. Images reviewed, interpreted, and dictated by Dr. Stephy Hanson. Transcribed by Rene Diallo(R). Sydni Blancas PA-C [facility] ORDERABLE S Final Result * Critical Care (10/26/2024 1:01 PM EDT) Michael Solorio MD - 10/26/2024 1:01 PM EDT Sydni Blancsa PA-C 10/26/2024 9:59 PM Critical Care Performed by: Sydni Blancas PA-C Authorized by: Michael Matthews MD Critical care provider statement: Critical care time (minutes): 15 Critical care was necessary to treat or prevent imminent or life-threatening deterioration of the following conditions: Alcohol withdrawal. Critical care was time spent personally by me on the following activities: Development of treatment plan with patient or surrogate, evaluation of patient's response to treatment, examination of patient, obtaining history from patient or surrogate, ordering and performing treatments and interventions, ordering and review of laboratory studies, ordering and review of radiographic studies, pulse oximetry, re-evaluation of patient's condition and review of old charts Care discussed with: admitting provider us Michael Matthews MD PROCEDURE/MINOR SURGICAL ORDER ELIZA Final Result documented in this encounter Visit Diagnoses Diagnosis Withdrawal seizures (HCC)- Primary Alcohol withdrawal seizure without complication (HCC) Alcohol withdrawal (HCC) Alcohol withdrawal Alcohol withdrawal syndrome with complication (HCC) documented in this encounter Admitting Diagnoses Diagnosis Withdrawal seizures (HCC) documented in this encounter Administered Medications Inactive Administered Medications - up to 3 most recent administrations Medication Order MAR Action Action Date Dose Rate Site acetaminophen (TYLENOL) tablet 1,000 mg 1,000 mg Every 6 hours PRN, oral, mild pain (1-3), moderate pain (4-6), Starting on 10/27/24 at 1726, Recommended maximum dose of acetaminophen is 4000 mg from all sources in 24 hours Given 10/29/2024 5:13 PM EDT 1,000 mg Given 10/29/2024 8:09 AM EDT 1,000 mg Given 10/27/2024 6:16 PM EDT 1,000 mg albuterol 2.5 mg /3 mL (0.083 %) nebulizer solution 2.5 mg 2.5 mg Every 4 hours PRN, nebulization, shortness of breath, wheezing, Starting on Renetta 10/30/24 at 1736, RESPIRATORY THERAPY TREATMENT , What is the respiratory therapy Modality? Small volume Nebulization buprenorphine-naloxone (SUBOXONE) 2-0.5 mg SL tablet 8 tablet 8 tablet Daily, sublingual, First dose on 10/27/24 at 0900, Nursing, This medication has the potential to cause dental problems. After the medication has completely dissolved in the patient s mouth, instruct the patient to gently rinse their teeth and gums with water and then swallow, and to wait at least 1 hour before brushing their teeth. Tell the patient to be sure to let their dentist know that they are on this medication. Regular dental checkups are encouraged. Given 11/01/2024 8:06 AM EDT 8 ta blets Given 10/31/2024 8:12 AM EDT 8 tablets Given 10/30/2024 9:05 AM EDT 8 tablets busPIRone (BUSPAR) tablet 10 mg 10 mg 2 times daily, oral, First dose on 10/27/24 at 0900 Given 11/01/2024 8:06 AM EDT 10 mg Given 10/31/2024 8:04 PM EDT 10 mg Given 10/31/2024 8:11 AM EDT 10 mg chlordiazePOXIDE (LIBRIUM) capsule 10 mg 10 mg 3 times daily, oral, First dose on 11/01/24 at 1000 dexmedeTOMIDine (PRECEDEX) 200 mcg in sodium chloride 0.9% 50 mL (4 mcg/mL) infusion (premix) 0.1-1.5 mcg/kg/hr 69.3 kg Adjusted weight Titrated (1.7325-25.9875 mL/hr, rounded to 1.7-26 mL/hr), intravenous, Starting on Sun10/27/24 at 1100 Rate/Dose Change 10/31/2024 4:04 AM EDT 0.2 mcg/kg/hr 3.5 mL/hr New Bag 10/31/2024 2:58 AM EDT 0.3 mcg/kg/hr 5.2 mL/hr Rate/Dose Change 10/30/2024 9:12 PM EDT 0.3 mcg/kg/hr 5.2 mL/hr diazePAM (VALIUM) injection 10 mg 10 mg Once, intravenous, On Sun10/27/24 at 1100, For 1 dose Given 10/27/2024 10:40 AM EDT 10 mg diazePAM (VALIUM) tablet 10 mg 10 mg 3 times daily, oral, First dose (after last modification) on Sun10/30/24 at 2100 Given 10/31/2024 8:11 AM EDT 10 mg Given 10/30/2024 8:15 PM EDT 10 mg diazePAM (VALIUM) tablet 5 mg 5 mg 3 times daily, oral, First dose on Sun10/28/24 at 1500 Given 10/30/2024 2:03 PM EDT 5 mg Given 10/30/2024 8:46 AM EDT 5 mg Given 10/29/2024 8:18 PM EDT 5 mg diazePAM (VALIUM) tablet 5 mg 5 mg 3 times daily, oral, First dose on Sun10/31/24 at 1500 Given 11/01/2024 8:06 AM EDT 5 mg Given 10/31/2024 8:05 PM EDT 5 mg Given 10/31/2024 3:41 PM EDT 5 mg diphenhydrAMINE (BENADRYL) injection 50 mg 50 mg Once, intravenous, On Sun10/27/24 at 1030, For 1 dose Given 10/27/2024 10:06 AM EDT 50 mg enoxaparin (LOVENOX) syringe 40 mg 40 mg Every 24 hours, subcutaneous, First dose on Sun10/26/24 at 1900, Do not administer within 12 hours of epidural or lumbar puncture. Look-Alike/Sound-Alike Alert Given 10/31/2024 7:44 PM EDT 40 mg Abdom inal Tissue Given 10/30/2024 6:27 PM EDT 40 mg Ab dominal Tissue Given 10/29/2024 8:16 PM EDT 40 mg Ab dominal Tissue folic acid (FOLVITE) tablet 1 mg 1 mg Daily, oral, First dose on Sun10/27/24 at 0900 Given 11/01/2024 8:06 AM EDT 1 mg Given 10/31/2024 8:12 AM EDT 1 mg Given 10/30/2024 8:47 AM EDT 1 mg gabapentin (NEURONTIN) capsule 100 mg 100 mg 2 times daily, oral, First dose on Sun10/27/24 at 0900 Given 11/01/2024 8:06 AM EDT 100 mg Given 10/31/2024 8:06 PM EDT 100 mg Given 10/31/2024 8:11 AM EDT 100 mg haloperidoL (HALDOL) tablet 5 mg 5 mg 2 times daily, oral, First dose on Sun10/29/24 at 1730 Given 11/01/2024 8:11 AM EDT 5 mg Given 10/31/2024 8:08 PM EDT 5 mg Given 10/31/2024 8:11 AM EDT 5 mg hydrOXYzine (ATARAX) tablet 50 mg 50 mg 4 times daily PRN, oral, anxiety, Starting on Sun10/29/24 at 1648, Look-alike/Sound-alike medication Given 10/30/2024 1:55 PM EDT 50 mg ipratropium-albuteroL (DUO-NEB) 0.5 mg-3 mg(2.5 mg base)/3 mL nebulizer solution 3 mL 3 mL Every 6 hours PRN, nebulization, wheezing, shortness of breath, Starting on Sun10/26/24 at 1817, RESPIRATORY THERAPY TREATMENT Protect from Light, What is the respiratory therapy Modality? Small volume Nebulization Given 10/28/2024 8:37 PM EDT 3 mLs Given 10/28/2024 3:47 AM EDT 3 mLs ipratropium-albuteroL (DUO-NEB) 0.5 mg-3 mg(2.5 mg base)/3 mL nebulizer solution 3 mL 3 mL Every 6 hours while awake (RT), nebulization, First dose on Sun10/30/24 at 1900, RESPIRATORY THERAPY TREATMENT Protect from Light, What is the respiratory therapy Modality? Small volume Nebulization Given 11/01/2024 12:54 PM EDT 3 mLs Given 11/01/2024 7:14 AM EDT 3 mLs Given 10/31/2024 8:10 PM EDT 3 mLs ketorolac (TORADOL) injection 15 mg 15 mg Once, intravenous, On Sun10/29/24 at 1730, For 1 dose Given 10/29/2024 5:13 PM EDT 15 mg lactated Ringer's infusion Starting on Sun10/26/24 at 1657, For 1 dose, Created by angela torres lactated ringers (LR) bolus 1,000 mL 1,000 mL Once, intravenous, Administer over 1 Hours, On Sun10/26/24 at 1600, For 1 dose IVPB Started 10/26/2024 5:12 PM EDT 1,000 mLs New Bag 10/26/2024 4:59 PM EDT 1,000 mLs levothyroxine (SYNTHROID) tablet 25 mcg 25 mcg Daily, oral, First dose on Sun10/27/24 at 0900, ADMINISTER ON AN EMPTY STOMACH Given 11/01/2024 8:06 AM EDT 25 m cg Given 10/31/2024 8:11 AM EDT 25 mcg Given 10/30/2024 8:46 AM EDT 25 mcg LORazepam (ATIVAN) injection 2 mg 2 mg Once, intravenous, On Sun10/26/24 at 1430, For 1 dose, For IV Push administration, dilute with an equal volume of Sodium Chloride 0.9% or Sterile Water for Injection before administration. Given 10/26/2024 2:31 PM EDT 2 mg magnesium oxide (MAG-OX) tablet 400 mg 400 mg Every Night, oral, First dose on Sun10/27/24 at 2100 Given 10/31/2024 8:06 PM EDT 400 mg Given 10/30/2024 8:15 PM EDT 400 mg Given 10/29/2024 8:20 PM EDT 400 mg magnesium sulfate IVPB 2 g in sterile water 50 mL (premix) at 50 mL/hr, Administer over 60 Minutes, intravenous, Once, On Sun10/29/24 at 0800, For 1 dose IVPB Started 10/29/2024 8:10 AM EDT 2 g 50 mL/hr magnesium sulfate IVPB 2 g in sterile water 50 mL (premix) at 50 mL/hr, Administer over 60 Minutes, intravenous, Once, On Sun10/30/24 at 0800, For 1 dose IVPB Started 10/30/2024 8:49 AM EDT 2 g 50 mL/hr magnesium sulfate IVPB 2 g in sterile water 50 mL (premix) at 50 mL/hr, Administer over 60 Minutes, intravenous, Once, On Sun10/31/24 at 0900, For 1 dose IVPB Started 10/31/2024 10:11 AM EDT 2 g 50 mL/hr miSOPROStoL (CYTOTEC) tablet 200 mcg 200 mcg 2 times daily with breakfast and dinner, oral, First dose on Sun10/27/24 at 0900 Given 11/01/2024 8:06 AM EDT 200 mcg Given 10/31/2024 5:40 PM EDT 200 mcg Given 10/31/2024 8:11 AM EDT 200 mcg nicotine (NICODERM CQ) 21 mg/24 hr patch 1 patch 1 patch Daily, transdermal, Administer over 24 Hours, First dose on Sun10/27/24 at 1630 Patch Applied 11/01/2024 8:06 AM EDT 1 patch Righ t Arm Patch Applied 10/31/2024 8:16 AM EDT 1 patch Left Arm Patch Applied 10/30/2024 8:55 AM EDT 1 patch Left Arm OLANZapine (ZYPREXA) tablet 5 mg 5 mg Every Night, oral, First dose on Sun10/27/24 at 2100 Given 10/31/2024 8:07 PM EDT 5 mg Given 10/30/2024 8:16 PM EDT 5 mg Given 10/29/2024 8:20 PM EDT 5 mg pancrelipase (Knv-Svjd-Lmtu) (ZENPEP) 20,000-63,000- 84,000 unit capsule 20,000 units of lipase 20,000 units of lipase 3 times daily with meals, oral, First dose on Sun10/27/24 at 0930, Substitution for Creon 36,000 units lipase TID with meals. Given 11/01/2024 8:11 AM EDT 20,000 units of lipase Given 10/31/2024 5:40 PM EDT 20,000 units of lipase Given 10/31/2024 1:00 PM EDT 20,000 units of lipase pancrelipase (Naionc-Dtndtwio-Jxaiezk) (ZENPEP) capsule 15,000 units of lipase 15,000 units of lipase 3 times daily with meals, oral, First dose on Sun10/27/24 at 0930, Substitution for Creon 36,000 units lipase TID with meals. Given 11/01/2024 8:11 AM EDT 15,000 units of lipase Given 10/31/2024 5:40 PM EDT 15,000 units of lipase Given 10/31/2024 1:00 PM EDT 15,000 units of lipase pantoprazole (PROTONIX) EC tablet 40 mg 40 mg 2 times daily, oral, First dose on Sun10/27/24 at 0900, * DO NOT CRUSH THIS DOSAGE FORM * Given 11/01/2024 8:06 AM EDT 40 mg Given 10/31/2024 8:05 PM EDT 40 mg Given 10/31/2024 8:12 AM EDT 40 mg pantoprazole (PROTONIX) injection 40 mg 40 mg Every evening, intravenous, First dose on Sun10/26/24 at 1900, * DILUTE IN 10 ML NS AND GIVE IV SLOWLY OVER 3 MINUTES * Given 10/26/2024 8:35 PM EDT 40 mg PHENobarbitaL injection 130 mg 130 mg Every hour PRN, intravenous, coarse tremor or agitation, Starting on Sun10/26/24 at 1715, Max rate of 60 mg/min. Too rapid administration may cause severe respiratory depression. Avoid extravasation. Monitor for vein irritation. Intra-arterial injection is contraindicated. Given 10/27/2024 4:35 PM EDT 130 mg Given 10/27/2024 9:21 AM EDT 130 mg Given 10/27/2024 2:42 AM EDT 130 mg PHENobarbitaL injection 130 mg 130 mg Every 4 hours PRN, intravenous, CIWA greather than 8, Starting on Sun10/31/24 at 1322, Max rate of 60 mg/min. Too rapid administration may cause severe respiratory depression. Avoid extravasation. Monitor for vein irritation. Intra-arterial injection is contraindicated. PHENobarbitaL injection 650 mg 650 mg Once, intravenous, Administer over 13 Minutes, On Sun10/26/24 at 1600, For 1 dose, Max rate of 60 mg/min. Too rapid administration may cause severe respiratory depression. Avoid extravasation. Monitor for vein irritation. Intra-arterial injection is contraindicated. Given 10/26/2024 4:59 PM EDT 650 mg polyethylene glycol (GLYCOLAX) packet 17 g 17 g Daily, oral, First dose on Sun10/27/24 at 0900, DISSOLVE IN 8 OUNCES OF WATER, JUICE, SODA, COFFEE OR TEA. Given 11/01/2024 8:06 AM EDT 17 g Given 10/31/2024 8:16 AM EDT 17 g Given 10/28/2024 8:15 AM EDT 17 g prazosin (MINIPRESS) capsule 2 mg 2 mg Every Night, oral, First dose on Sun10/28/24 at 2100 Given 10/31/2024 8:07 PM EDT 2 mg Given 10/30/2024 8:13 PM EDT 2 mg Given 10/29/2024 8:17 PM EDT 2 mg sennosides (SENOKOT) tablet 8.6 mg 8.6 mg Every Night, oral, First dose on Sun10/27/24 at 2100 Given 10/31/2024 8:06 PM EDT 8.6 mg Given 10/30/2024 8:17 PM EDT 8.6 mg Given 10/29/2024 8:21 PM EDT 8.6 mg sodium chloride 0.9 % (NS) 1,000 mL with magnesium sulfate 2 g, MVI, adult 10 mL, folic acid 1 mg, thiamine 100 mg infusion at 125 mL/hr, intravenous, Every 24 hours, First dose on Sun10/26/24 at 1430, For 3 days Given 10/26/2024 2:31 PM EDT 125 mL/hr sodium chloride 0.9 % (NS) 1,000 mL with magnesium sulfate 2 g, MVI, adult 10 mL, folic acid 1 mg, thiamine 100 mg infusion at 250 mL/hr, intravenous, Daily, First dose on Sun10/26/24 at 1600, For 1 day Given 10/26/2024 5:00 PM EDT 250 mL/hr sodium chloride 0.9 % infusion 100 mL/hr Continuous, intravenous, Starting on Sun10/27/24 at 0030 New Bag 10/28/2024 8:15 AM EDT 100 mL/hr 100 mL/hr New Bag 10/27/2024 11:30 PM EDT 100 mL/hr 100 mL/hr New Bag 10/27/2024 12:29 PM EDT 100 mL/hr 100 mL/hr sodium chloride 0.9 % infusion 100 mL/hr Continuous, intravenous, Starting on Renetta 10/30/24 at 1200 New Bag 10/31/2024 6:10 AM EDT 100 mL/hr 100 mL/hr New Bag 10/30/2024 9:11 PM EDT 100 mL/hr 100 mL/hr Bag 10/30/2024 11:38 AM EDT 100 mL/hr 100 mL/hr sodium chloride 0.9% (NS) bolus 1,000 mL Once, intravenous, Administer over 60 Minutes, On Sun10/27/24 at 0030, For 1 dose 10/27/2024 1:00 AM EDT 1,000 mLs 1000 mL/hr thiamine tablet 100 mg 100 mg Daily, oral, First dose on Sun10/27/24 at 0900 Given 11/01/2024 8:06 AM EDT 100 mg Given 10/31/2024 8:11 AM EDT 100 mg Given 10/30/2024 8:46 AM EDT 100 mg venlafaxine (EFFEXOR) tablet 37.5 mg 37.5 mg 2 times daily, oral, First dose on Sun10/27/24 at 0900 Given 11/01/2024 8:12 AM EDT 37.5 mg Given 10/31/2024 8:08 PM EDT 37.5 mg Given 10/31/2024 8:16 AM EDT 37.5 mg documented in this encounter Active and Recently Administered Medications Times are shown in EDT. Scheduled Medication Order 10/30/2024 10/31/2024 11/01/2024 buprenorphine-naloxone (SUBOXONE) 2-0.5 mg SL tablet 8 tablet 8 tablet Daily, sublingual, First dose on Sun10/27/24 at 0900, Nursing, This medication has the potential to cause dental problems. After the medication has completely dissolved in the patient s mouth, instruct the patient to gently rinse their teeth and gums with water and then swallow, and to wait at least 1 hour before brushing their teeth. Tell the patient to be sure to let their dentist know that they are on this medication. Regular dental checkups are encouraged. 904 (Given - Provider: Ledy Joya RN) 0812 (Given - Provider: Milagros Sterling, RERE) 0806 (Given - Provider: Milagros Sterling RN) busPIRone (BUSPAR) tablet 10 mg 10 mg 2 times daily, oral, First dose on Sun10/27/24 at 0900 0846 (Given - Provider: Ledy Joya RN)2013 (Given - Provider: Keara Sepulveda RN) 08 (Given - Provider: Milagros Sterling RN)2003 (Given - Provider: Keara Sepulveda RN) 08 (Given - Provider: Milagros Sterling RN) chlordiazePOXIDE (LIBRIUM) capsule 10 mg 10 mg 3 times daily, oral, First dose on Sun11/01/24 at 1000 1032 (Not Given - Provider: Milagros Sterling RN - Reason: Order parameters not met) diazePAM (VALIUM) tablet 10 mg (CANCELED) 10 mg 3 times daily, oral, First dose (after last modification) on Sun10/30/24 at 2100 2014 (Given - Provider: Keara Sepulveda RN) 0811 (Given - Provider: Milagros Sterling RN) diazePAM (VALIUM) tablet 5 mg (CANCELED) 5 mg 3 times daily, oral, First dose on Sun10/28/24 at 1500 0846 (Given - Provider: Ledy Joya RN)1403 (Given - Provider: Ledy Joya RN) diazePAM (VALIUM) tablet 5 mg (CANCELED) 5 mg 3 times daily, oral, First dose on Sun10/31/24 at 1500 1541 (Given - Provider: Milagros Sterling RN)2004 (Given - Provider: Keara Sepulveda RN) 08 (Given - Provider: Milagros Sterling RN) enoxaparin (LOVENOX) syringe 40 mg 40 mg Every 24 hours, subcutaneous, First dose on Sun10/26/24 at 1900, Do not administer within 12 hours of epidural or lumbar puncture. Look-Alike/Sound-Ali ke Alert 182 (Given - Provider: Ledy Joya RN) 194 (Given - Provider: Keara Sepulveda RN) folic acid (FOLVITE) tablet 1 mg 1 mg Daily, oral, First dose on Sun10/27/24 at 0900 0847 (Given - Provider: Ledy Joya RN) 0812 (Given - Provider: Milagros Sterling RN) 08 (Given - Provider: Milagros Sterling RN) gabapentin (NEURONTIN) capsule 100 mg 100 mg 2 times daily, oral, First dose on Sun10/27/24 at 0900 0847 (Given - Provider: Ledy Joya RN)2015 (Given - Provider: Keara Sepulveda RN) 08 (Given - Provider: Milagros Sterling RN)2005 (Given - Provider: Keara Sepulveda RN) 08 (Given - Provider: Milagros Sterling RN) haloperidoL (HALDOL) tablet 5 mg 5 mg 2 times daily, oral, First dose on Sun10/29/24 at 1730 0846 (Given - Provider: Ledy Joya RN)2015 (Given - Provider: Keara Sepulveda RN) 08 (Given - Provider: Milagros Sterling RN)2007 (Given - Provider: Keara Sepulveda RN) 810 (Given - Provider: Milagros Sterling RN) ipratropium-albuteroL (DUO-NEB) 0.5 mg-3 mg(2.5 mg base)/3 mL nebulizer solution 3 mL 3 mL Every 6 hours while awake (RT), nebulization, First dose on Sun10/30/24 at 1900, RESPIRATORY THERAPY TREATMENT Protect from Light, What is the respiratory therapy Modality? Small volume Nebulization 1926 (Given - Provider: Jefe Mckinney, WOOD HEEL FINISHER) 0655 (Given - Provider: Dejon Rincon WOOD HEEL FINISHER)1309 (Given - Provider: Sarah Barreto, WOOD HEEL FINISHER)2009 (Given - Provider: Dyan Prcie, JULIANNA) 0714 (Given - Provider: Facundo Medellin, JULIANNA)1254 (Given - Provider: Facundo Medellin, JULIANNA) levothyroxine (SYNTHROID) tablet 25 mcg 25 mcg Daily, oral, First dose on Sun10/27/24 at 0900, ADMINISTER ON AN EMPTY STOMACH 0846 (Given - Provider: Ledy Joya RN) 08 (Given - Provider: Milagros Sterling RN) 0806 (Given - Provider: Milagros Sterling RN) magnesium oxide (MAG-OX) tablet 400 mg 400 mg Every Night, oral, First dose on Sun10/27/24 at 2099 2014 (Given - Provider: Keara Sepulveda RN) 2005 (Given - Provider: Keara Sepulveda RN) magnesium sulfate IVPB 2 g in sterile water 50 mL (premix) (COMPLETED) at 50 mL/hr, Administer over 60 Minutes, intravenous, Once, On Sun10/30/24 at 0800, For 1 dose 0849 (IVPB Started - Provider: Ledy Joya RN)1018 (IVPB Stopped - Provider: Ledy Joya RN) magnesium sulfate IVPB 2 g in sterile water 50 mL (premix) (COMPLETED) at 50 mL/hr, Administer over 60 Minutes, intravenous, Once, On Sun10/31/24 at 0900, For 1 dose 1011 (IVPB Started - Provider: Milagros Sterling RN)1116 (IVPB Stopped - Provider: Milagros Sterling RN) miSOPROStoL (CYTOTEC) tablet 200 mcg 200 mcg 2 times daily with breakfast and dinner, oral, First dose on Sun10/27/24 at 0900 0847 (Given - Provider: Ledy Joya RN)1723 (Given - Provider: Ledy Joya RN) 0811 (Given - Provider: Milagros Sterling RN)1740 (Given - Provider: Milagros Sterling RN) 0806 (Given - Provider: Milagros Sterling RN) nicotine (NICODERM CQ) 21 mg/24 hr patch 1 patch 1 patch Daily, transdermal, Administer over 24 Hours, First dose on Sun10/27/24 at 1630 0846 (Patch Removed - Provider: Ledy Joya RN)0855 (Patch Applied - Provider: Ledy Joya RN) 0816 (Patch Applied - Provider: Milagros Setrling RN) 0806 (Patch Applied - Provider: Milagros Sterling RN)1411 (Due: Patch Removed - Provider: Automatic Discharge Provider - Comment: Time automatically adjusted from order being discontinued) OLANZapine (ZYPREXA) tablet 5 mg 5 mg Every Night, oral, First dose on Sun10/27/24 at 2099 2015 (Given - Provider: Keara Sepulveda RN) 2006 (Given - Provider: Keara Sepulveda RN) pancrelipase (Wdn-Hjwu-Xetw) (ZENPEP) 20,000-63,000- 84,000 unit capsule 20,000 units of lipase(Linked Group 1) 20,000 units of lipase 3 times daily with meals, oral, First dose on Sun10/27/24 at 0930, Substitution for Creon 36,000 units lipase TID with meals. 0847 (Given - Provider: Ledy Joya RN)1205 (Given - Provider: Ledy Joya RN)1723 (Given - Provider: Ledy Joya RN) 0811 (Given - Provider: Milagros Sterling RN)1300 (Given - Provider: Milagros Sterling RN)1740 (Given - Provider: Milagros Sterling RN) 0811 (Given - Provider: Milagros Sterling RN)1244 (Not Given - Provider: Milagros Sterling RN - Reason: Other (with Comment) - Comment: pt d/c) pancrelipase (Qklcmr-Cbbolxpy-Hllmj se) (ZENPEP) capsule 15,000 units of lipase(Linked Group 1) 15,000 units of lipase 3 times daily with meals, oral, First dose on Sun10/27/24 at 0930, Substitution for Creon 36,000 units lipase TID with meals. 0850 (Given - Provider: Ledy Joya RN)1205 (Given - Provider: Ledy Joya RN)1723 (Given - Provider: Ledy Joya RN) 0811 (Given - Provider: Milagros Sterling RN)1300 (Given - Provider: Milagros Sterling RN)1740 (Given - Provider: Milagros Sterling RN) 0811 (Given - Provider: Milagros Sterling, RERE)1244 (Not Given - Provider: Milagros Sterling RN - Reason: Other (with Comment) - Comment: pt d/c) pantoprazole (PROTONIX) EC tablet 40 mg 40 mg 2 times daily, oral, First dose on Sun10/27/24 at 0900, * DO NOT CRUSH THIS DOSAGE FORM * 0846 (Given - Provider: Ledy Joya RN)2015 (Given - Provider: Keara Sepulveda RN) 08 (Given - Provider: Milagros Sterling RN)2004 (Given - Provider: Keara Sepulveda RN) 805 (Given - Provider: Milagros Sterling RN) polyethylene glycol (GLYCOLAX) packet 17 g 17 g Daily, oral, First dose on Sun10/27/24 at 0900, DISSOLVE IN 8 OUNCES OF WATER, JUICE, SODA, COFFEE OR TEA. 09 (Not Given - Provider: Ledy Joya RN - Reason: Patient/family refused) 08 (Given - Provider: Milagros Sterling RN) 805 (Given - Provider: Milagros Sterling, RERE) prazosin (MINIPRESS) capsule 2 mg 2 mg Every Night, oral, First dose on Sun10/28/24 at 2099 2012 (Given - Provider: Keara Sepulveda RN) 2006 (Given - Provider: Keara Sepulveda RN) sennosides (SENOKOT) tablet 8.6 mg 8.6 mg Every Night, oral, First dose on Sun10/27/24 at 2099 2016 (Given - Provider: Keara Sepulveda RN) 2005 (Given - Provider: Keara Sepulveda RN) thiamine tablet 100 mg 100 mg Daily, oral, First dose on Sun10/27/24 at 0900 0846 (Given - Provider: Ledy Joya RN) 0811 (Given - Provider: Milagros Sterling, RERE) 08 (Given - Provider: Milagros Sterling, RERE) venlafaxine (EFFEXOR) tablet 37.5 mg 37.5 mg 2 times daily, oral, First dose on Sun10/27/24 at 0900 0848 (Given - Provider: Ledy Joya RN)2016 (Given - Provider: Keara Sepulveda RN) 08 (Given - Provider: Milagros Sterling, RERE)2007 (Given - Provider: Keara Sepulveda RN) 811 (Given - Provider: Milagros Sterling, RERE) Continuous Medication Order 10/30/2024 10/31/2024 11/01/2024 dexmedeTOMIDine (PRECEDEX) 200 mcg in sodium chloride 0.9% 50 mL (4 mcg/mL) infusion (premix) (CANCELED) 0.1-1.5 mcg/kg/hr 69.3 kg Adjusted weight Titrated (1.7325-25.9875 mL/hr, rounded to 1.7-26 mL/hr), intravenous, Starting on Sun10/27/24 at 1100 0008 (Rate/Dose Change - Provider: Keara Sepulveda RN)0144 (Rate/Dose Change - Provider: Keara Sepulveda RN)0222 (Rate/Dose Change - Provider: Keara Sepulveda RN)0239 (Rate/Dose Change - Provider: Keara Sepulveda RN)0303 (New Bag - Provider: Keara Sepulveda RN)0306 (Rate/Dose Change - Provider: Keara Sepulveda RN)0542 (Rate/Dose Change - Provider: Keara Sepulveda RN)0604 (Rate/Dose Change - Provider: Keara Sepulveda RN)0700 (Rate/Dose Verify - Provider: Ledy Joya RN)0848 (New Bag - Provider: Ledy Joya RN)0900 (Rate/Dose Verify - Provider: Ledy Joya RN)1027 (Rate/Dose Change - Provider: Ledy Joya RN)1048 (Rate/Dose Change - Provider: Ledy Joya RN)1114 (Rate/Dose Change - Provider: Ledy Joya RN)1138 (Stopped - Provider: Ledy Joya RN)1345 (Restarted - Provider: Ledy Joya RN)1400 (Rate/Dose Change - Provider: Ledy Joya RN)1415 (Rate/Dose Change - Provider: Ledy Joya RN)1430 (Rate/Dose Change - Provider: Ledy Joya RN)1445 (Rate/Dose Change - Provider: Ledy Joya RN)1500 (Rate/Dose Change - Provider: Ledy Joya RN)1600 (Rate/Dose Verify - Provider: Ledy Joay RN)1700 (Rate/Dose Verify - Provider: Ledy Joya RN)1737 (New Bag - Provider: Ledy Joya RN)1800 (Rate/Dose Verify - Provider: Ledy Joya RN)2112 (Rate/Dose Change - Provider: Keara Sepulveda RN) 0258 (New Bag - Provider: Keara Sepulveda RN)0404 (Rate/Dose Change - Provider: Keara Sepulveda RN)1002 (Stopped - Provider: Tara Bautista RN) sodium chloride 0.9 % infusion (CANCELED) 100 mL/hr Continuous, intravenous, Starting on Renetta 10/30/24 at 1200 1138 (New Bag - Provider: Ledy Joya RN)2111 (New Bag - Provider: Keara Sepulveda RN) 0610 (New Bag - Provider: Keara Sepulveda RN) PRN Medication Order 10/30/2024 10/31/2024 11/01/2024 acetaminophen (TYLENOL) tablet 1,000 mg 1,000 mg Every 6 hours PRN, oral, mild pain (1-3), moderate pain (4-6), Starting on 10/27/24 at 1726, Recommended maximum dose of acetaminophen is 4000 mg from all sources in 24 hours albuterol 2.5 mg /3 mL (0.083 %) nebulizer solution 2.5 mg 2.5 mg Every 4 hours PRN, nebulization, shortness of breath, wheezing, Starting on Renetta 10/30/24 at 1736, RESPIRATORY THERAPY TREATMENT , What is the respiratory therapy Modality? Small volume Nebulization albuterol inhaler 1 puff 1 puff Every 6 hours PRN, inhalation, wheezing, Starting on 10/26/24 at 1815 hydrOXYzine (ATARAX) tablet 50 mg 50 mg 4 times daily PRN, oral, anxiety, Starting on Sun10/29/24 at 1648, Look-alike/Sound-alike medication 1355 (Given - Provider: Ledy Joya RN) ipratropium-albuteroL (DUO-NEB) 0.5 mg-3 mg(2.5 mg base)/3 mL nebulizer solution 3 mL 3 mL Every 6 hours PRN, nebulization, wheezing, shortness of breath, Starting on Sun10/26/24 at 1817, RESPIRATORY THERAPY TREATMENT Protect from Light, What is the respiratory therapy Modality? Small volume Nebulization PHENobarbitaL injection 130 mg 130 mg Every 4 hours PRN, intravenous, CIWA greather than 8, Starting on Sun10/31/24 at 1322, Max rate of 60 mg/min. Too rapid administration may cause severe respiratory depression. Avoid extravasation. Monitor for vein irritation. Intra-arterial injection is contraindicated. Linked Groups Order Group 1: pancrelipase (Zle-Kslh-Qfnw) (ZENPEP) 20,000-63,000- 84,000 unit capsule 20,000 units of lipaseJump to med 20,000 units of lipase 3 times daily with meals, oral, First dose on Sun10/27/24 at 0930, Substitution for Creon 36,000 units lipase TID with meals. And pancrelipase (Xfgeha-Spofyhby-Srjeyun) (ZENPEP) capsule 15,000 units of lipaseJump to med 15,000 units of lipase 3 times daily with meals, oral, First dose on Sun10/27/24 at 0930, Substitution for Creon 36,000 units lipase TID with meals. documented in this encounter Care Teams Pipeline Superintendent Relationship Specialty Start Date End Date Aj Valentine MD [address] [place] [id number] PCP - General Adolescent Medicine 12/13/23 11/02/24 documented as of this encounter
--- OUTSIDE RECORDS SUMMARY | 2024-10-26 12:59 | XMS_ITS | Encounter Summary ---
Author Organization [facility] In iatives Address [address] [place] [address] Care Team Providers Care Networking Technician Name Role Phone Aj Valentine MD Primary Care Provider + [phone] Reason for Visit * Reason Comments Seizures Delirium Tremens (DTS) * Auth/Cert (Routine) Specialty Diagnoses / Procedures Referred By Contac t Referred To Contact Diagnoses Withdrawal seizures (HCC) [facility] Intensive Care Unit [address] [place] [address] Phone: tel: fax: [facility] Intensive Care Unit [address] [place] [address] Phone: tel: fax: Referral ID Status Reason Start Date Expiration Date Visits Re quested Visits Authorized [id number] 1 1 Encounter Details Date Type Department Care Team (Late st Contact Info) Description 10/26/2024 12:59 PM EDT - 11/01/2024 2:11 PM EDT Hospital Encounter [facility] Intensive Care Unit [address] [place] [address] Michael Matthews MD [facility] [place] [id number] Michael Corral MD [address] [facility] [address] [id number] Piyush Frey MD [address] [phone] Alcohol withdrawal seizure without complication (HCC) (Primary [...] your living situation today? I have a [facility] place to live 10/26/2024 Think about [...] Do you speak a language other than [place] at [facility]? No 10/26/2024 Do you want help with [...] 180,000 unit Cpdr capsule Generic drug: pancrelipase (Vvi-Ywpe-Zmby) Take 1 capsule (36,000 units of lipase [...] Trelegy Ellipta 100-62.5-25 mcg Dsdv Generic drug: kbodamcguli-rdkjdrjus-gxkgeisl 1 puff daily. 0 venlafaxine 37.5 MG tablet Commonly known as: EFFEXOR Take 1 tablet (37.5 mg total) by mouth 2 (two) times daily. 0 Where to Get Your Medications These medications were sent to [facility] of [address] [address] haloperidoL 5 MG tablet prazosin 2 MG [...] patient is preparing for discharge to the [facility] in stable condition. Plan: Arrange transportation to the facility. Provide discharge papers, including all necessary information. Send prescriptions electronically to [facility] for continuity of care. Discharge Diet regular Recommended light activity and use a cane Discharge Follow UP: Psychiatrist in 2 weeks Contact information for follow-up Aj Valentine MD Specialty: Adolescent Medicine Relationship: PCP - General [address] [place] [address] [facility] [address] Next Steps: Follow up in 1 week(s) Time Spent: 45 minutes Electronically signed by Piyush Frey MD, 11/01/24, 10:49 AM EDT documented in this encounter Discharge Instructions * Attachments The following attachments cannot be sent through Care Everywhere. * Alcohol Withdrawal Syndrome Vryq-cs-Zckq (Russian) documented in this encounter Medications at Time [...] (100 mg total) 2 (two) times daily. hydrOXYzine (ATARAX) 25 MG tablet Take 1 [...] 17 g by mouth daily as needed. sennosides (SENOKOT) 8.6 mg tablet Take 1 [...] Amount: 30 mg 6 capsule 11/01/2024 5 haloperidoL (HALDOL) 5 MG tablet Take 1 tablet (5 mg total) by mouth 2 (two) times daily for 30 days. 60 tablet 11/01/2024 5 prazosin (MINIPRESS) 2 MG capsule Take 1 capsule (2 mg total) by mouth nightly for 30 days. 30 capsule 11/01/2024 5 documented as of this [...] HEMORRHAGE CONTROL; Surgeon: Yohana Bellamy MD; Location: [facility]; Service: Gastroenterology; Laterality: N/A; JOINT REPLACEMENT miniscus repair LITHOTRIPSY Left 04/18/2022 Procedure: URETEROSCOPY, LASER LITHOTRIPSY, BASKET STONE EXTRACTION, AND STENT EXCHANGE; Surgeon: Aj Gotti MD; Location: [facility]; Service: Urology; Laterality: Left; FAMILY UPDATED AT 1632 LITHOTRIPSY,LASER Left UPPER ENDOSCOPY,BIOPSY N/A 12/10/2023 Procedure: ENDOSCOPY, UPPER GI TRACT, WITH BIOPSY; Surgeon: Yohana Bellamy MD; Location: [facility]; Service: Gastroenterology; Laterality: N/A; General Visit type: [...] goal: Pt wants to go back to [facility] after discharge to continue his alcohol rehabilitation. Pt stated that he already has his OP PT set up in [place] Pain Pt reports pain in both of [...] dressing:Independent Lower body dressing:Supervision Toileting:Independent Outcome Measures [facility] Daily Living Functional Assessment How much [...] (Minimal/Contact guard/Supervision/Setup) 4=None (Modified independent/Independent) The patient's [facility] raw score is 22. The patient currently has 25.80% functional impairment. Clinicians are most likely to recommend inpatient/SNF/residential care for patients with scores between 6-17, [...] prior level of function. The patient's current [facility] score of 22 would indicate that [...] Progress Note Spoke with medical staff at [facility] who states that Mr. aDve can have a 6 day Librium taperon [...] his desire to go back to the [facility]. He acknowledges his history of alcohol [...] mg, 5 mg, oral, Every Night pancrelipase (Nyj-Kvgk-Cgeg) (ZENPEP) 20,000-63,000- 84,000 unit capsule 20,000 units of lipase, 20,000 units of lipase, oral, TID with meals AND pancrelipase (Fmgbxa-Gieqsngd-Baavqdf) (ZENPEP) capsule 15,000 units of lipase, 15,000 [...] intake. - The plan includes discontinuing the phototypesetting equipment monitor and pulse oximetry as they are no [...] room during the examination Voice recognition software InfoNow was utilized in creating this document and may contain some typographical errors. Piyush Jo MD [facility] Medicine * Piyush Frey MD - 10/30/2024 [...] mg, 5 mg, oral, Every Night pancrelipase (Fey-Qqrw-Kubn) (ZENPEP) 20,000-63,000- 84,000 unit capsule 20,000 units of lipase, 20,000 units of lipase, oral, TID with meals AND pancrelipase (Wmeews-Mynzdbcy-Pfbcvsg) (ZENPEP) capsule 15,000 units of lipase, 15,000 [...] Precedex, to wean off the Precedex Continue phototypesetting equipment monitor Order windows vmware engineer electrolytes No evidence of hypothyroidism -Nicotine dependency disorder Smoking cessation and long-term mental health support will be encouraged. -BMI Body mass index is 23.69 kg/m??. -DVT prophylaxis Daily subcutaneous injection of enoxaparin has been prescribed to reduce the risk of blood clots. Voice recognition software InfoNow was utilized in creating this document and may contain some typographical errors. Piyush Jo MD [facility] Medicine * Ludwig Dave NP - 10/30/2024 [...] that he plans to go back to [facility] to continue treatment after discharge from [...] mg, 5 mg, oral, Every Night pancrelipase (Jwu-Umnb-Igfk) (ZENPEP) 20,000-63,000- 84,000 unit capsule 20,000 units of lipase, 20,000 units of lipase, oral, TID with meals AND pancrelipase (Fpalhe-Pxsrwbdf-Vakxppc) (ZENPEP) capsule 15,000 units of lipase, 15,000 [...] Likely secondary to use of Precedex Continue phototypesetting equipment monitor Order windows vmware engineer electrolytes No evidence of hypothyroidism -Nicotine dependency disorder Smoking cessation and long-term mental health support will be encouraged. -BMI Body mass index is 23.69 kg/m??. -DVT prophylaxis Daily subcutaneous injection of enoxaparin has been prescribed to reduce the risk of blood clots. Nurse Kimberly was present in the room during the examination. Voice recognition software InfoNow was utilized in creating this document and may contain some typographical errors. iPyush Jo MD [facility] Medicine * ITALO Cervantes - 10/29/2024 2:00 [...] evidence of Memory/Concentration: Short Term Memory Intact, Snf Memory Intact, Insight Fair Judgement: Fair CSSRS [...] been verified. Pt's permanent residence is at [address] [place] [address] in [place], [place]. Prior to hospitalization, pt was at [facility] for alcohol addiction and reported that he did have a seizure due to alcohol withdrawal. During assessment, pt was experiencing visual and auditory hallucinations, pt denies psychosis prior to alcohol withdrawal and does report that he does like hearing people talking to him and that it makes him feel less lonely. Pt does report wanting to go back to [facility] after discharge, and SW did confirm that [...] ways to re framefrom substances while at [facility] which is staying occupied with his individual therapy and group therapy and trying to avoid the participates who may not be as motivated to start treatment. Pt did not expose how he was able to get xanax, valium or alcohol while in the rehab center. At time of discharge, pt is able to go back to [facility] and will need to fax over clinicals to [phone], and can call for transportation at [phone], only medication allowed for anxiety is Hydroxyzine. [...] been residing in a supportive housing facility [facility] for the past two months and [...] mg, 5 mg, oral, Every Night pancrelipase (Jit-Dzez-Lfsv) (ZENPEP) 20,000-63,000- 84,000 unit capsule 20,000 units of lipase, 20,000 units of lipase, oral, TID with meals AND pancrelipase (Canhsv-Ogxwvoev-Ncgkfon) (ZENPEP) capsule 15,000 units of lipase, 15,000 [...] room during the examination. Voice recognition software InfoNow was utilized in creating this document and may contain some typographical errors. Piyush Jo MD [facility] Medicine * Kimberly Jackson RN - 10/27/2024 [...] last usage was on the way to [facility]. Information passed onto attending physician to assist [...] states that he is currently at the [facility] for alcohol abuse recovery. He states his last drink was around 2 weeks ago. Patient states he was drinking 30 shots of fireball daily. Patientreports having a seizure this morning at the [facility]. Patient has been in alcohol withdrawal since [...] HEMORRHAGE CONTROL; Surgeon: Yohana Bellamy MD; Location: [facility]; Service: Gastroenterology; Laterality: N/A; JOINT REPLACEMENT miniscus repair LITHOTRIPSY Left 04/18/2022 Procedure: URETEROSCOPY, LASER LITHOTRIPSY, BASKET STONE EXTRACTION, AND STENT EXCHANGE; Surgeon: Aj Gotti MD; Location: [facility]; Service: Urology; Laterality: Left; FAMILY UPDATED AT 1632 LITHOTRIPSY,LASER Left UPPER ENDOSCOPY,BIOPSY N/A 12/10/2023 Procedure: ENDOSCOPY, UPPER GI TRACT, WITH BIOPSY; Surgeon: Yohana Bellamy MD; Location: [facility]; Service: Gastroenterology; Laterality: N/A; Family History Problem [...] XR chest 1 view portable / bedside [[id number]] Collected: 10/26/24 1433 Order Status: Completed Updated: [...] Rene Diallo(R). CT brain without IV contrast [[id number]] Collected: 10/26/24 1430 Order Status: Completed Updated: [...] Rene Diallo(R). CT cervical spine without contrast [[id number]] Collected: 10/26/24 1430 Order Status: Completed Updated: [...] Diallo(R). CT spine lumbar without IV contrast [[id number]] Collected: 10/26/24 1430 Order Status: Completed Updated: [...] Color, UA Yellow Clarity, UA Clear Specific Saltese, UA 1.015 1.005 - 1.030 pH, UA [...] tells me that he was at the [facility] for alcohol detox. He says that [...] to detox about 20 times at , [facility], the [facility], the [facility], and [facility]. He tells me that he was taking [...] that he had a seizure at the [facility] which led him to seek treatment [...] years and goes to a clinic in [place]. He also sees a therapist and psychiatric [...] lives alone, however was staying at the [facility]. He receives disability benefits. Family History: [...] that he plans to go back to [facility] to continue treatment after discharge from [...] states that he is currently at the [facility] for alcohol withdrawal. He states his last drink was around 2 weeks ago. Patient states he was drinking 30 shots of fireball daily. Patient reports having a seizure this morning at the [facility]. Patient was not started on any Librium or other medications. Patient states that he has a history of alcohol withdrawal seizures in the past. Patient states he is mildly short of breath but denies any chest pain. Patient is reporting neck pain. He states he has chronic low back pain [...] HEMORRHAGE CONTROL; Surgeon: Yohana Bellamy MD; Location: [facility]; Service: Gastroenterology; Laterality: N/A; JOINT REPLACEMENT miniscus repair LITHOTRIPSY Left 04/18/2022 Procedure: URETEROSCOPY, LASER LITHOTRIPSY, BASKET STONE EXTRACTION, AND STENT EXCHANGE; Surgeon: Aj Gotti MD; Location: [facility]; Service: Urology; Laterality: Left; FAMILY UPDATED AT 1632 LITHOTRIPSY,LASER Left UPPER ENDOSCOPY,BIOPSY N/A 12/10/2023 Procedure: ENDOSCOPY, UPPER GI TRACT, WITH BIOPSY; Surgeon: Yohana Bellamy MD; Location: [facility]; Service: Gastroenterology; Laterality: N/A; Family History Problem [...] Color, UA Yellow Clarity, UA Clear Specific Saltese, UA 1.015 1.005 - 1.030 pH, UA [...] as of 10/26/242158 Sun October 26, 2024 8014 I personally obtained a history, performed an [...] to be admitted for alcohol withdrawal. [AMBROSIO] [address] Corral who accepts [...] me on the following activities: Development of treatmentplan with patient or surrogate, evaluation of patient's [...] withdrawing from alcohol. Patient is at the [facility] currently. Patient states he is not [...] Current Discharge Medication List Electronically Signed By ySdni Blancas PA-C 10/26/24 215 Cosigned by Michael [...] - 4.7 mg/dL 10/31/2024 6:08 AM EDT [facility] Blood Venipuncture / Unknown 10/31/2024 5:19 AM EDT 10/31/2024 5:40 AM EDT us Piyush Frey MD LAB BLOOD ORDERABLES Fi nal Result [facility] [address] [phone] * (ABNORMAL) Magnesium (10/31/2024 5:19 AM EDT) Magnesium 1.6(L) 1.8 - 2.4 mg/dL 10/31/2024 6:08 AM EDT [facility] Blood Venipuncture / Unknown 10/31/2024 5:19 AM EDT 10/31/2024 5:40 AM EDT us Piyush Frey MD LAB BLOOD ORDERABLES Fi nal Result Performing Organization Address City/[facility]/ZIP Code Phone Number [facility] [address] [phone] * (ABNORMAL) Basic Metabolic Panel (10/31/2024 5:19 AM EDT) Sodium 136 136 - 145 meq/L 10/31/2024 6:08 AM EDT [facility] Potassium 5.1 3.5 - 5.1 meq/L 10/31/2024 6:08 AM EDT [facility] Chloride 103 98 - 107 meq/L 10/31/2024 6:08 AM EDT [facility] CO2 28 21 - 32 meq/L 10/31/2024 6:08 AM EDT [facility] Anion Gap 10(L) 11 - 21 10/31/2024 6:08 AM EDT [facility] BUN 14 7 - 18 mg/dL 10/31/2024 6:08 AM EDT [facility] Creatinine 0.68 0.67 - 1.17 mg/dL 10/31/2024 6:08 AM EDT [facility] BUN/Creatinine 21 10/31/2024 6:08 AM EDT [facility] Glucose 93 74 - 106 mg/dL 10/31/2024 6:08 AM EDT [facility] Calcium 9.1 8.5 - 10.1 mg/dL 10/31/2024 6:08 AM EDT [facility] Osmolality Calc 272.1 mOsm/kg 6:08 AM EDT [facility] eGFR (mL/min/1.73m2) >60 >=60 mL/min/1.7 3m2 10/31/2024 6:08 AM EDT [facility] Comment:eGFR of <60 suggests chronic kidney disease if found over a 3 month period of time. eGFR <15 indicates renal failure. Blood Venipuncture / Unknown 10/31/2024 5:19 AM EDT 10/31/2024 5:40 AM EDT us Piyush Frey MD LAB BLOOD ORDERABLES Fi nal Result [facility] [address] [phone] * (ABNORMAL) CBC - Hemogram (SJ-BKR) (10/31/2024 5:19 AM EDT) WBC 6.6 4.0 - 10.5 K/ L 10/31/2024 5:46 AM EDT [facility] RBC 4.11(L) 4.70 - 6.00 M/ L 10/31/2024 5:46 AM EDT [facility] Hemoglobin 12.0(L) 13.2 - 18.0 GM/DL 10/31/2024 5:46 AM EDT [facility] Hematocrit 39.3(L) 42.0 - 52.0 % 10/31/2024 5:46 AM EDT [facility] MCV 96 78 - 100 fL 10/31/2024 5:46 AM EDT [facility] MCH 29.2 27.0 - 31.0 pg 10/31/2024 5:46 AM EDT [facility] MCHC 30.5(L) 32.0 - 36.0 GM/DL 10/31/2024 5:46 AM EDT [facility] RDW 14.8(H) 11.5 - 14.0 % 10/31/2024 5:46 AM EDT [facility] Platelets 215 150 - 400 K/CU MM 10/31/2024 5:46 AM EDT [facility] MPV 10.3(H) 6.0 - 9.5 fL 10/31/2024 5:46 AM EDT [facility] nRBC 0 /100 WBC 10/31/2024 5:46 AM EDT [facility] Blood Venipuncture / Unknown 10/31/2024 5:19 AM EDT 10/31/2024 5:40 AM EDT us Piyush Frey MD LAB BLOOD ORDERABLES Fi nal Result Performing Organization Address [facility]/ZIP Code Phone Number [facility] [address] [place] [address] * (ABNORMAL) Phosphorus (10/29/2024 5:54 AM EDT) Phosphorus 5.0(H) 2.6 - 4.7 mg/dL 10/29/2024 6:23 AM EDT [facility] Blood Venipuncture / Unknown 10/29/2024 5:54 AM EDT 10/29/2024 5:57 AM EDT us Piyush Frey MD LAB BLOOD ORDERABLES Fi nal Result Performing Organization Address City/[facility]/ZIP Code Phone Number [facility] [address] [phone] * (ABNORMAL) Magnesium (10/29/2024 5:54 AM EDT) Magnesium 1.4(L) 1.8 - 2.4 mg/dL 10/29/2024 6:24 AM EDT [facility] Blood Venipuncture / Unknown 10/29/2024 5:54 AM EDT 10/29/2024 5:57 AM EDT us Piyush Frey MD LAB BLOOD ORDERABLES Fi nal Result [facility] [address] [phone] * (ABNORMAL) Comprehensive metabolic panel (10/29/2024 5:54 AM EDT) Sodium 135(L) 136 - 145 meq/L 10/29/2024 6:24 AM EDT [facility] Potassium 4.5 3.5 - 5.1 meq/L 10/29/2024 6:24 AM EDT [facility] Chloride 100 98 - 107 meq/L 10/29/2024 6:24 AM EDT [facility] CO2 28 21 - 32 meq/L 10/29/2024 6:24 AM EDT [facility] Calcium 9.4 8.5 - 10.1 mg/dL 10/29/2024 6:24 AM EDT [facility] Glucose 115(H) 74 - 106 mg/dL 10/29/2024 6:24 AM EDT [facility] BUN 8 7 - 18 mg/dL 10/29/2024 6:24 AM EDT [facility] Creatinine 0.64(L) 0.67 - 1.17 mg/dL 10/29/2024 6:24 AM EDT [facility] BUN/Creatinine 13 10/29/2024 6:24 AM T [facility] Albumin 3.1(L) 3.4 - 5.0 g/dL 10/29/2024 6:24 AM EDT [facility] Alkaline Phosphatase 83 46 - 116 U/L 10/29/2024 6:24 AM EDT [facility] ALT 16 16 - 63 U/L 10/29/2024 6:24 AM EDT [facility] AST 26 15 - 37 U/L 10/29/2024 6:24 AM EDT [facility] Total Bilirubin 0.4 0.2 - 1.0 mg/dL 10/29/2024 6:24 AM EDT [facility] Protein, Total 7.3 6.4 - 8.2 gm/dL 10/29/2024 6:24 AM EDT [facility] Anion Gap 12 11 - 21 10/29/2024 6:24 AM EDT [facility] A/G Ratio 0.7 10/29/2024 6:24 AM EDT [facility] Globulin 4.2 g/dL 10/29/2024 6:24 AM EDT [facility] Osmolality Calc 269.3 mOsm/kg 6:24 AM EDT [facility] eGFR (mL/min/1.73m2) >60 >=60 mL/min/1.7 3m2 10/29/2024 6:24 AM EDT [facility] Comment:ESTIMATED GFR IS NOT ACCURATE CREATININE CLEARANCE IN PREDICTING GLOMERULAR FILTRATION RATE. ESTIMATED GFR IS NOT APPLICABLE FOR DIALYSIS PATIENTS. Blood Venipuncture / Unknown 10/29/2024 5:54 AM EDT 10/29/2024 5:57 AM EDT us Piyush Frey MD LAB BLOOD ORDERABLES Fi nal Result [facility] [address] [phone] * (ABNORMAL) CBC - Hemogram (SJ-BKR) (10/29/2024 5:54 AM EDT) WBC 7.9 4.0 - 10.5 K/ L 10/29/2024 6:02 AM EDT [facility] RBC 4.21(L) 4.70 - 6.00 M/ L 10/29/2024 6:02 AM EDT [facility] Hemoglobin 12.4(L) 13.2 - 18.0 GM/DL 10/29/2024 6:02 AM EDT [facility] Hematocrit 38.8(L) 42.0 - 52.0 % 10/29/2024 6:02 AM EDT [facility] MCV 92 78 - 100 fL 10/29/2024 6:02 AM EDT [facility] MCH 29.5 27.0 - 31.0 pg 10/29/2024 6:02 AM EDT [facility] MCHC 32.0 32.0 - 36.0 GM/DL 10/29/2024 6:02 AM EDT [facility] RDW 14.6(H) 11.5 - 14.0 % 10/29/2024 6:02 AM EDT [facility] Platelets 285 150 - 400 K/CU MM 10/29/2024 6:02 AM EDT [facility] MPV 9.4 6.0 - 9.5 fL 10/29/2024 6:02 AM T [facility] nRBC 0 /100 WBC 10/29/2024 6:02 AM T [facility] Blood Venipuncture / Unknown 10/29/2024 5:54 AM EDT 10/29/2024 5:57 AM EDT us Piyush Frey MD LAB BLOOD ORDERABLES Fi nal Result [facility] [address] [phone] * (ABNORMAL) Comprehensive metabolic panel (10/28/2024 5:42 AM EDT) Sodium 141 136 - 145 meq/L 10/28/2024 7:09 AM [facility] Potassium 4.1 3.5 - 5.1 meq/L 10/28/2024 7:09 AM [facility] Chloride 105 98 - 107 meq/L 10/28/2024 7:09 AM T [facility] CO2 30 21 - 32 meq/L 10/28/2024 7:09 AM [facility] Calcium 9.2 8.5 - 10.1 mg/dL 10/28/2024 7:09 AM EDT [facility] Glucose 111(H) 74 - 106 mg/dL 10/28/2024 7:09 AM [facility] BUN 7 7 - 18 mg/dL 10/28/2024 7:09 AM [facility] Creatinine 0.62(L) 0.67 - 1.17 mg/dL 10/28/2024 7:09 AM [facility] BUN/Creatinine 11 10/28/2024 7:09 AM [facility] Albumin 3.1(L) 3.4 - 5.0 g/dL 10/28/2024 7:09 AM [facility] Alkaline Phosphatase 76 46 - 116 U/L 10/28/2024 7:09 AM [facility] ALT 14(L) 16 - 63 U/L 10/28/2024 7:09 AM [facility] AST 23 15 - 37 U/L 10/28/2024 7:09 AM [facility] Total Bilirubin 0.4 0.2 - 1.0 mg/dL 10/28/2024 7:09 AM [facility] Protein, Total 6.8 6.4 - 8.2 gm/dL 10/28/2024 7:09 AM [facility] Anion Gap 10(L) 11 - 21 10/28/2024 7:09 AM [facility] A/G Ratio 0.8 10/28/2024 7:09 AM [facility] Globulin 3.7 g/dL 10/28/2024 7:09 AM [facility] Osmolality Calc 279.9 mOsm/kg 7:09 AM [facility] eGFR (mL/min/1.73m2) >60 >=60 mL/min/1.7 3m2 10/28/2024 7:09 AM [facility] Comment:ESTIMATED GFR IS NOT ACCURATE CREATININE CLEARANCE IN PREDICTING GLOMERULAR FILTRATION RATE. ESTIMATED GFR IS NOT APPLICABLE FOR DIALYSIS PATIENTS. Blood Venipuncture / Unknown 10/28/2024 5:42 AM EDT 10/28/2024 6:32 AM EDT us Hue Granger APRN LAB BLOOD ORDERABLES Final Re sult [facility] [address] [place] [address], [facility] [phone] * (ABNORMAL) CBC with automated diff (10/28/2024 5:41 AM EDT) WBC 8.3 4.0 - 10.5 K/ L 10/28/2024 6:44 AM EDT [facility] RBC 4.04(L) 4.70 - 6.00 M/ L 10/28/2024 6:44 AM EDT [facility] Hemoglobin 12.1(L) 13.2 - 18.0 GM/DL 10/28/2024 6:44 AM EDT [facility] Hematocrit 37.9(L) 42.0 - 52.0 % 10/28/2024 6:44 AM EDT [facility] MCV 94 78 - 100 fL 10/28/2024 6:44 AM EDT [facility] MCH 30.0 27.0 - 31.0 pg 10/28/2024 6:44 AM EDT [facility] MCHC 31.9(L) 32.0 - 36.0 GM/DL 10/28/2024 6:44 AM EDT [facility] RDW 14.6(H) 11.5 - 14.0 % 10/28/2024 6:44 AM EDT [facility] Platelets 161 150 - 400 K/CU MM 10/28/2024 6:44 AM EDT [facility] MPV 12.4(H) 6.0 - 9.5 fL 10/28/2024 6:44 AM EDT [facility] Nucleated Red Blood Cell 0.0 0 - 0.2 % 10/28/2024 6:44 AM EDT [facility] % Neutros 62 41 - 80 % 10/28/2024 6:44 AM EDT [facility] % Lymphs 25 15 - 48 % 10/28/2024 6:44 AM EDT [facility] % Monos 8 0 - 12 % 10/28/2024 6:44 AM EDT [facility] % Eos 4 0 - 5 % 10/28/2024 6:44 AM EDT [facility] % Baso 1 0 - 2 % 10/28/2024 6:44 AM EDT [facility] # Neutros 5.12 1.56 - 6.13 K/ L 10/28/2024 6:44 AM EDT [facility] # Lymphs 2.06 K/ L 10/28/2024 6:44 AM EDT [facility] # Monos 0.69 0.24 - 0.86 K/ L 10/28/2024 6:44 AM EDT [facility] # Eos 0.29 0.04 - 0.54 K/ L 10/28/2024 6:44 AM EDT [facility] # Baso 0.06 0.01 - 0.08 K/ L 10/28/2024 6:44 AM EDT [facility] Immature Granulocytes-Re lative 0.40 0.00 - 0.60 % 10/28/2024 6:44 AM EDT [facility] # IG 0.03 0.00 - 0.05 K/uL 10/28/2024 6:44 AM EDT [facility] Blood Venipuncture / Unknown 10/28/2024 5:41 AM EDT 10/28/2024 6:31 AM EDT Narrative [facility] - 10/28/2024 6:44 AM EDT When [...] Flag noted Atypical Lymph flag noted us Hue Granger APRN LAB BLOOD ORDERABLES Final Re sult [facility] [address] [phone] * TSH (10/27/2024 6:00 AM EDT) TSH 1.599 0.358 - 3.740 uIU/mL 10/27/2024 6:40 AM EDT [facility] Blood Venipuncture / Unknown 10/27/2024 6:00 AM EDT 10/27/2024 6:06 AM EDT Michael Corral MD LAB BLOOD ORDERABLES Final Resul t [facility] [address] [phone] * (ABNORMAL) CBC with automated diff (10/27/2024 6:00 AM EDT) WBC 5.8 4.0 - 10.5 K/ L 10/27/2024 6:12 AM EDT [facility] RBC 3.57(L) 4.70 - 6.00 M/ L 10/27/2024 6:12 AM EDT [facility] Hemoglobin 10.6(L) 13.2 - 18.0 GM/DL 10/27/2024 6:12 AM T [facility] Hematocrit 34.5(L) 42.0 - 52.0 % 10/27/2024 6:12 AM T [facility] MCV 97 78 - 100 fL 10/27/2024 6:12 AM [facility] MCH 29.7 27.0 - 31.0 pg 10/27/2024 6:12 AM T [facility] MCHC 30.7(L) 32.0 - 36.0 GM/DL 10/27/2024 6:12 AM EDT [facility] RDW 15.3(H) 11.5 - 14.0 % 10/27/2024 6:12 AM T [facility] Platelets 266 150 - 400 K/CU MM 10/27/2024 6:12 AM T [facility] MPV 9.1 6.0 - 9.5 fL 10/27/2024 6:12 AM [facility] Nucleated Red Blood Cell 0.0 0 - 0.2 % 10/27/2024 6:12 AM T [facility] % Neutros 45 41 - 80 % 10/27/2024 6:12 AM EDT [facility] % Lymphs 40 15 - 48 % 10/27/2024 6:12 AM EDT [facility] % Monos 9 0 - 12 % 10/27/2024 6:12 AM EDT [facility] % Eos 6(H) 0 - 5 % 10/27/2024 6:12 AM EDT [facility] % Baso 1 0 - 2 % 10/27/2024 6:12 AM EDT [facility] # Neutros 2.60 1.56 - 6.13 K/ L 10/27/2024 6:12 AM EDT [facility] # Lymphs 2.28 K/ L 10/27/2024 6:12 AM EDT [facility] # Monos 0.49 0.24 - 0.86 K/ L 10/27/2024 6:12 AM EDT [facility] # Eos 0.34 0.04 - 0.54 K/ L 10/27/2024 6:12 AM EDT [facility] # Baso 0.05 0.01 - 0.08 K/ L 10/27/2024 6:12 AM EDT [facility] Immature Granulocytes-Re lative 0.20 0.00 - 0.60 % 10/27/2024 6:12 AM T [facility] # IG 0.01 0.00 - 0.05 K/uL 10/27/2024 6:12 AM T [facility] Blood Venipuncture / Unknown 10/27/2024 6:00 AM EDT 10/27/2024 6:05 AM EDT Narrative [facility] - 10/27/2024 6:12 AM EDT When [...] MD LAB BLOOD ORDERABLES Final Resul t [facility] [address] [phone] * (ABNORMAL) Basic Metabolic Panel (10/27/2024 6:00 AM EDT) Sodium 137 136 - 145 meq/L 10/27/2024 6:40 AM EDT [facility] Potassium 4.5 3.5 - 5.1 meq/L 10/27/2024 6:40 AM EDT [facility] Chloride 104 98 - 107 meq/L 10/27/2024 6:40 AM EDT [facility] CO2 30 21 - 32 meq/L 10/27/2024 6:40 AM [facility] Anion Gap 8(L) 11 - 21 10/27/2024 6:40 AM T [facility] BUN 11 7 - 18 mg/dL 10/27/2024 6:40 AM T [facility] Creatinine 0.65(L) 0.67 - 1.17 mg/dL 10/27/2024 6:40 AM T [facility] BUN/Creatinine 17 10/27/2024 6:40 AM T [facility] Glucose 96 74 - 106 mg/dL 10/27/2024 6:40 AM [facility] Calcium 8.3(L) 8.5 - 10.1 mg/dL 10/27/2024 6:40 AM [facility] Osmolality Calc 273.1 mOsm/kg 6:40 AM T [facility] eGFR (mL/min/1.73m2) >60 >=60 mL/min/1.7 3m2 10/27/2024 6:40 AM T [facility] Comment:eGFR of <60 suggests chronic kidney disease if found over a 3 month period of time. eGFR <15 indicates renal failure. Blood Venipuncture / Unknown 10/27/2024 6:00 AM EDT 10/27/2024 6:06 AM EDT Michael Corral MD LAB BLOOD ORDERABLES Final Resul t [facility] [address] [place] [address], [facility] [phone] * Magnesium (10/27/2024 6:00 AM EDT) Pathologist [facility] Magnesium 1.8 1.8 - 2.4 mg/dL 10/27/2024 6:40 AM EDT [facility] Blood Venipuncture / Unknown 10/27/2024 6:00 AM EDT 10/27/2024 6:06 AM EDT us Michael Corral MD LAB BLOOD ORDERABLES Final Resul t Performing Organization Address [facility] Phone Number [facility] [address] [phone] * (ABNORMAL) PROBNP (10/27/2024 6:00 AM EDT) Pathologist [facility] ProBNP (pg/mL) 151(H) <125 pg/mL 10/27/2024 6:40 AM EDT [facility] Blood Venipuncture / Unknown 10/27/2024 6:00 AM EDT 10/27/2024 6:06 AM EDT us Michael Corral MD LAB BLOOD ORDERABLES Final Resul t Performing Organization Address [facility] Phone Number [facility] [address] [phone] * (ABNORMAL) Urinalysis Microscopic Only (10/26/2024 2:07 PM EDT) WBC, UA 0-5 None Seen, 0-5 /HPF 10/26/2024 2:30 PM EDT [facility] RBC, UA 6-10(A) None Seen, Rare /HPF 10/26/2024 2:30 PM EDT [facility] Bacteria, UA Trace(A) None Seen 10/26/2024 2:30 PM EDT [facility] Mucus Trace Trace 10/26/2024 2:30 PM EDT [facility] SQUAMOUS EPITHELIAL Rare None Seen, Rare /HPF 10/26/2024 2:30 PM EDT [facility] Urine URINE SPECIMEN COLLECTION, CLEAN CATCH / Unknown 10/26/2024 2:07 PM EDT 10/26/2024 2:10 PM EDT Sydni Blancas PA-C URINE ORDERABLES Final Result [facility] [address] [phone] * (ABNORMAL) Triage Drug Screen, Urine (10/26/2024 2:07 PM EDT) Amphetamine Urine Negative Negative 025 2:18 PM EDT [facility] Barbiturate Screen Negative Negative 2024 2:18 PM EDT [facility] Benzodiazepine Screen Positive(A ) Negative 10/26/2024 2:18 PM EDT [facility] Cocaine (Metab.) Screen Negative Negative 10/26/2024 2:18 PM EDT [facility] MDMA Ur Negative Negative 10/26/2024 2:18 PM EDT [facility] Methadone Screen Negative Negative 10/27/19 2:18 PM EDT [facility] Opiate Screen Negative Negative 10/26/2024 2:18 PM EDT [facility] Phencyclidine Screen Negative Negative 09/2024 2:18 PM EDT [facility] Tricyclic Screen Negative Negative 10/27/19 2:18 PM EDT [facility] Tetrahydrocannabinol Negative Negative 09/2024 2:18 PM EDT [facility] Methamphetamine Screen Negative Negative 2:18 PM EDT [facility] Oxycodone Screen Negative Negative 10/27/19 2:18 PM EDT [facility] Urine 10/26/2024 2:07 PM EDT 10/26/2024 2:10 PM EDT Narrative [facility] - 10/26/2024 2:18 PM EDT This urine drug of abuse screen is for medical purposes only. A positive result is a preliminary analytical result which has not been confirmed. Drug Cutoff Limits are: Amp/Methamp: 1000 ng/mL Barbiturates: 200 ng/mL Benzodiazepines: 200 ng/mL Cannabinoids: 50 ng/mL Cocaine Metabolites: 300 ng/mL Fentanyl: 1.0 ng/mL Opiates: 300 ng/mL Sydni Blancsa PA-C URINE ORDERABLES Final Result [facility] [address] [phone] * (ABNORMAL) Urinalysis, Reflex Microscopic and Culture If Indicated (10/26/2024 2:07 PM EDT) Color, UA Yellow 10/26/2024 2:18 PM EDT [facility] Clarity, UA Clear 10/26/2024 2:18 PM EDT [facility] Specific Saltese, UA 1.015 1.005 - 1.030 10/26/2024 2:18 PM EDT [facility] pH, UA 6.0 5.0 - 9.0 10/26/2024 2:18 PM EDT [facility] Leukocytes, UA Negative Negative 10/26/2024 2:18 PM EDT [facility] Nitrite, UA Negative Negative 10/26/2024 2:18 PM EDT [facility] Protein, UA Negative Negative 10/26/2024 2:18 PM EDT [facility] Glucose, UA Negative Negative 10/26/2024 2:18 PM EDT [facility] Ketones, UA Negative Negative 10/26/2024 2:18 PM EDT [facility] Bilirubin, UA Negative Negative 10/26/2024 2:18 PM EDT [facility] Blood, UA Trace(A) Negative 10/26/2024 2:18 PM EDT [facility] Urobilinogen, UA 0.2 mg/dL Normal 10/26/2024 2:18 PM EDT [facility] Specimen Source Urine, Clean Catch 10/26/2024 2:18 PM EDT [facility] Urine URINE SPECIMEN COLLECTION, CLEAN CATCH / Unknown 10/26/2024 2:07 PM EDT 10/26/2024 2:10 PM EDT Sydni Blancas PA-C URINE ORDERABLES Final Result Performing Organization Address City/[facility]/ZIP Code Phone Number [facility] [address] [phone] * Ethanol (10/26/2024 1:59 PM EDT) Ethanol Lvl <3 <3 mg/dL 10/26/2024 2:45 PM EDT [facility] Blood Venipuncture / Unknown 10/26/2024 1:59 PM EDT 10/26/2024 2:02 PM EDT Narrative [facility] - 10/26/2024 2:45 PM EDT Lower limit of detection is 10.00 mg/dL. 50-100 mg/dL
Impaired Reflexes: 100-300 mg/dL
Depression of SLAB WORKER: 300 mg/dL or >
Coma may occur; 400 mg/dL or >
may occur

This test is not intended for legal purposes or use in employment related testing. Sydni BHAGAT-C LAB BLOOD ORDERABLES Final Resul t Performing Organization Address City/[facility]/ZIP Code Phone Number [facility] [address] [place] [address] * (ABNORMAL) High Sensitivity Troponin I (10/26/2024 1:59 PM EDT) Troponin I High Sensitivity (pg/mL) <4(L) 4 - 60.3 pg/mL 10/26/2024 2:30 PM EDT [facility] Comment: Troponin Result (pg/mL) *Interpretation 4-60.3 [...] ORDERABLES Final Resul t Performing Organization Address City/[facility]/ZIP Code Phone Number [facility] [address] [phone] * (ABNORMAL) Magnesium (10/26/2024 1:59 PM EDT) Magnesium 1.7(L) 1.8 - 2.4 mg/dL 10/26/2024 2:46 PM EDT [facility] Blood Venipuncture / Unknown 10/26/2024 1:59 PM EDT 10/26/2024 2:02 PM EDT Sydni Yonny OLAYINKA-C LAB BLOOD ORDERABLES Final Resul t Performing Organization Address [facility] Phone Number [facility] [address] [place] [address], [facility] [phone] * Lipase (10/26/2024 1:59 PM EDT) Lipase 68 16 - 77 U/L 10/26/2024 2:46 PM EDT [facility] Blood Venipuncture / Unknown 10/26/2024 1:59 PM EDT 10/26/2024 2:02 PM EDT Sydni Blancas PA-C LAB BLOOD ORDERABLES Final Resul t Performing Organization Address [facility] Phone Number [facility] [address] [place] [address], [facility] [phone] * (ABNORMAL) Comprehensive metabolic panel (10/26/2024 1:59 PM EDT) Sodium 139 136 - 145 meq/L 10/26/2024 2:46 PM [facility] Potassium 4.3 3.5 - 5.1 meq/L 10/26/2024 2:46 PM [facility] Chloride 101 98 - 107 meq/L 10/26/2024 2:46 PM [facility] CO2 30 21 - 32 meq/L 10/26/2024 2:46 PM [facility] Calcium 9.4 8.5 - 10.1 mg/dL 10/26/2024 2:46 PM [facility] Glucose 104 74 - 106 mg/dL 10/26/2024 2:46 PM [facility] BUN 12 7 - 18 mg/dL 10/26/2024 2:46 PM [facility] Creatinine 0.61(L) 0.67 - 1.17 mg/dL 10/26/2024 2:46 PM [facility] BUN/Creatinine 20 10/26/2024 2:46 PM [facility] Albumin 3.2(L) 3.4 - 5.0 g/dL 10/26/2024 2:46 PM [facility] Alkaline Phosphatase 81 46 - 116 U/L 10/26/2024 2:46 PM [facility] ALT 14(L) 16 - 63 U/L 10/26/2024 2:46 PM [facility] AST 24 15 - 37 U/L 10/26/2024 2:46 PM [facility] Total Bilirubin 0.2 0.2 - 1.0 mg/dL 10/26/2024 2:46 PM [facility] Protein, Total 7.4 6.4 - 8.2 gm/dL 10/26/2024 2:46 PM [facility] Anion Gap 12 11 - 21 10/26/2024 2:46 PM [facility] A/G Ratio 0.8 10/26/2024 2:46 PM [facility] Globulin 4.2 g/dL 10/26/2024 2:46 PM EDT [facility] Osmolality Calc 277.6 mOsm/kg 2:46 PM EDT [facility] eGFR (mL/min/1.73m2) >60 >=60 mL/min/1.7 3m2 10/26/2024 2:46 PM EDT [facility] Comment:ESTIMATED GFR IS NOT ACCURATE CREATININE CLEARANCE IN PREDICTING GLOMERULAR FILTRATION RATE. ESTIMATED GFR IS NOT APPLICABLE FOR DIALYSIS PATIENTS. Blood Venipuncture / Unknown 10/26/2024 1:59 PM EDT 10/26/2024 2:02 PM EDT us Sydni Blancas PA-C LAB BLOOD ORDERABLES Final Resul t [facility] [address] [phone] * (ABNORMAL) CBC with Auto Diff (10/26/2024 1:59 PM EDT) WBC 6.8 4.0 - 10.5 K/ L 10/26/2024 2:06 PM EDT [facility] RBC 4.18(L) 4.70 - 6.00 M/ L 10/26/2024 2:06 PM T [facility] Hemoglobin 12.5(L) 13.2 - 18.0 GM/DL 10/26/2024 2:06 PM T [facility] Hematocrit 40.1(L) 42.0 - 52.0 % 10/26/2024 2:06 PM EDT [facility] MCV 96 78 - 100 fL 10/26/2024 2:06 PM EDT [facility] MCH 29.9 27.0 - 31.0 pg 10/26/2024 2:06 PM EDT [facility] MCHC 31.2(L) 32.0 - 36.0 GM/DL 10/26/2024 2:06 PM EDT [facility] RDW 15.3(H) 11.5 - 14.0 % 10/26/2024 2:06 PM EDT [facility] Platelets 220 150 - 400 K/CU MM 10/26/2024 2:06 PM EDT [facility] MPV 10.6(H) 6.0 - 9.5 fL 10/26/2024 2:06 PM EDT [facility] Nucleated Red Blood Cell 0.0 0 - 0.2 % 10/26/2024 2:06 PM EDT [facility] % Neutros 51 41 - 80 % 10/26/2024 2:06 PM EDT [facility] % Lymphs 33 15 - 48 % 10/26/2024 2:06 PM EDT [facility] % Monos 9 0 - 12 % 10/26/2024 2:06 PM EDT [facility] % Eos 6(H) 0 - 5 % 10/26/2024 2:06 PM [facility] % Baso 1 0 - 2 % 10/26/2024 2:06 PM EDT [facility] # Neutros 3.45 1.56 - 6.13 K/ L 10/26/2024 2:06 PM T [facility] # Lymphs 2.23 K/ L 10/26/2024 2:06 PM EDT [facility] # Monos 0.59 0.24 - 0.86 K/ L 10/26/2024 2:06 PM EDT [facility] # Eos 0.38 0.04 - 0.54 K/ L 10/26/2024 2:06 PM EDT [facility] # Baso 0.07 0.01 - 0.08 K/ L 10/26/2024 2:06 PM EDT [facility] Immature Granulocytes-Re lative 0.40 0.00 - 0.60 % 10/26/2024 2:06 PM [facility] # IG 0.03 0.00 - 0.05 K/uL 10/26/2024 2:06 PM [facility] Blood Venipuncture / Unknown 10/26/2024 1:59 PM EDT 10/26/2024 2:02 PM EDT Narrative [facility] - 10/26/2024 2:06 PM EDT When [...] PA-C LAB BLOOD ORDERABLES Final Resul t [facility] [address] [phone] * CT spine lumbar without IV contrast [...] Transcribed by Rene Diallo(R). Sydni Blancas PA-C [facility] [place] ORDERABLES Final Result * XR chest [...] MD - 10/26/2024 1:01 PM EDT Sydni Blancas PA-C 10/26/2024 9:59 PM Critical Care Performed [...] 10/29/2024 8:20 PM EDT 5 mg pancrelipase (Riz-Mksn-Lseq) (ZENPEP) 20,000-63,000- 84,000 unit capsule 20,000 units of lipase 20,000 units of lipase 3 times daily with meals, oral, First dose on Sun10/27/24 at 0930, Substitution for Creon 36,000 units lipase TID with meals. Given 11/01/2024 8:11 AM EDT 20,000 units of lipase Given 10/31/2024 5:40 PM EDT 20,000 units of lipase Given 10/31/2024 1:00 PM EDT 20,000 units of lipase pancrelipase (Tgiibc-Cgzfbdhs-Obcljws) (ZENPEP) capsule 15,000 units of lipase 15,000 [...] Nebulization 1926 (Given - Provider: Jefe Mckinney, GRANITE POLISHER APPRENTICE) 0655 (Given - Provider: Dejon Rincon GRANITE POLISHER APPRENTICE)1309 (Given - Provider: Sarah Barreto, GRANITE POLISHER APPRENTICE)2009 (Given - Provider: Dyan Price, JULIANNA) 0714 (Given - Provider: Facundo Medellin, [...] RN) 0816 (Patch Applied - Provider: Milagros Sterling RN) 0806 (Patch Applied - Provider: Milagros Sterling RN)1411 (Due: Patch Removed - Provider: Automatic Discharge Provider - Comment: Time automatically adjusted from order being discontinued) OLANZapine (ZYPREXA) tablet 5 mg 5 mg Every Night, oral, First dose on Sun10/27/24 at 2099 2015 (Given - Provider: Keara Sepulveda RN) 2006 (Given - Provider: Keara Sepulveda RN) pancrelipase (Nvx-Fzof-Dweu) (ZENPEP) 20,000-63,000- 84,000 unit capsule 20,000 units [...] (with Comment) - Comment: pt d/c) pancrelipase (Ookxty-Gcmbnfnx-Bljih se) (ZENPEP) capsule 15,000 units of lipase(Linked [...] FORM * 0846 (Given - Provider: Ledy Jyoa RN)2015 (Given - Provider: Keara Sepulveda RN) [...] Ledy Joya RN)0900 (Rate/Dose Verify - Provider: eLdy Joya RN)1027 (Rate/Dose Change - Provider: Ledy Joya RN)1048 (Rate/Dose Change - Provider: Ldey Joya RN)1114 (Rate/Dose Change - Provider: Ledy Joya RN)1138 (Stopped - Provider: Ledy Joya RN)1345 (Restarted - Provider: Ledy Joya RN)1400 (Rate/Dose Change - Provider: Ledy Joya RN)1415 (Rate/Dose Change - Provider: Ledy Joya RN)1430 (Rate/Dose Change - Provider: Ledy Joya RN)1445 (Rate/Dose Change - Provider: Ledy Joya RN)1500 (Rate/Dose Change - Provider: Ledy Joya RN)1600 (Rate/Dose Verify - Provider: Ledy Joya RN)1700 (Rate/Dose Verify - Provider: Ledy Joya [...] contraindicated. Linked Groups Order Group 1: pancrelipase (Ecm-Scgk-Uxeh) (ZENPEP) 20,000-63,000- 84,000 unit capsule 20,000 units of lipaseJump to med 20,000 units of lipase 3 times daily with meals, oral, First dose on Sun10/27/24 at 0930, Substitution for Creon 36,000 units lipase TID with meals. And pancrelipase (Bqkuga-Lyicgato-Tbfzuhy) (ZENPEP) capsule 15,000 units of lipaseJump to med 15,000 units of lipase 3 times daily with meals, oral, First dose on Sun10/27/24 at 0930, Substitution for Creon 36,000 units lipase TID with meals. documented in this encounter Care Teams Networking Technician Relationship Specialty Start Date End Date Aj Valentine MD [address] [place] [id number] PCP - General Adolescent Medicine 12/13/23 11/02/24 documented as of this encounter
[2024-12-01] VITALS (11 sets, daily range): BP systolic 116–157; BP diastolic 66–95; PULSE 55–78; RESP 10–20; TEMP 36.6–36.8; O2SAT 94–100; BMI 25.8; BMI 21.9
--- NOTE | 2024-12-01 16:26 | CT_ITS ---
PROCEDURE INFORMATION: Exam: CT Head Without Contrast Exam date and time: 12/01/2024 7:32 PM Age: 49 years old Clinical indication: Injury or trauma; Fall; Other: Pain; Additional info: Fall, head trauma TECHNIQUE: Imaging protocol: Computed tomography of the head without contrast. Radiation optimization: All CT scans at this facility use at least one of these dose optimization techniques: automated exposure control; mA and/or kV adjustment per patient size (includes targeted exams where dose is matched to clinical indication); or iterative reconstruction. COMPARISON: CT HEAD/BRAIN WO CON 12/01/2024 7:32 PM FINDINGS: Brain: There is mild diffuse cerebral volume loss present. Multiple subcortical and deep hypoattenuating white matter foci are present, likely related to small vessel senescent changes and can also be seen with prior infectious / inflammatory insult, or prior traumatic events. No hyperattenuating foci are identified to suggest acute intracranial hemorrhage. Cerebral ventricles: No ventriculomegaly. Paranasal sinuses: Moderate maxillary sinus polypoid mucosal thickening is present. Mastoid air cells: Visualized mastoid air cells are well aerated. Bones: Unremarkable. No acute fracture. Soft tissues: Right periorbital subcutaneous hyperattenuating opacities compatible with small hematoma/contusion. IMPRESSION: 1. Multiple subcortical and deep hypoattenuating white matter foci are present, likely related to small vessel senescent changes and can also be seen with prior infectious / inflammatory insult, or prior traumatic events. 2. No hyperattenuating foci are identified to suggest acute intracranial hemorrhage.
--- NOTE | 2024-12-01 16:26 | CT_ITS ---
PROCEDURE INFORMATION: Exam: CT Cervical Spine Without Contrast Exam date and time: 12/01/2024 7:34 PM Age: 49 years old Clinical indication: Injury or trauma; Fall; Other: Pain TECHNIQUE: Imaging protocol: Computed tomography of the cervical spine without contrast. Radiation optimization: All CT scans at this facility use at least one of these dose optimization techniques: automated exposure control; mA and/or kV adjustment per patient size (includes targeted exams where dose is matched to clinical indication); or iterative reconstruction. COMPARISON: CT CERVICAL SPINE WO CON 12/01/2024 7:34 PM FINDINGS: Bones: No acute fracture. Normal alignment. No significant disc bulge or herniation. No severe spinal canal stenosis. No significant neural foraminal narrowing. Lungs: Lung apices are normal. Soft tissues: Unremarkable. IMPRESSION: No acute findings.
--- NOTE | 2024-12-01 16:26 | CT_ITS ---
PROCEDURE INFORMATION: Exam: CT Abdomen And Pelvis With Contrast Exam date and time: 12/01/2024 7:42 PM Age: 49 years old Clinical indication: Abdominal pain; Additional info: Abdominal pain, history of alcoholism TECHNIQUE: Imaging protocol: Computed tomography of the abdomen and pelvis with contrast. Radiation optimization: All CT scans at this facility use at least one of these dose optimization techniques: automated exposure control; mA and/or kV adjustment per patient size (includes targeted exams where dose is matched to clinical indication); or iterative reconstruction. Contrast material: ISOVUE; Contrast volume: 75 ml; Contrast route: IV; COMPARISON: CT ABDOMEN PELVIS W CON 10/08/2024 9:59 PM FINDINGS: Liver: Liver is low in density. Gallbladder and biliary ducts: Normal. No calcified stones. No ductal dilation. Pancreas: Normal. No ductal dilation. Spleen: Multiple splenic granulomas. Adrenal glands: Normal. No mass. Kidneys and ureters: Multiple stones are seen in the renal collecting systems bilaterally, the largest is on the right measuring 9 mm. No evidence of urolithiasis is noted. Stomach and bowel: Unremarkable. No obstruction. No mucosal thickening. Appendix: Prior appendectomy. Intraperitoneal space: Unremarkable. No free air. No significant fluid collection. Vasculature: Unremarkable. No abdominal aortic aneurysm. Lymph nodes: Unremarkable. No enlarged lymph nodes. Urinary bladder: Unremarkable as visualized. Reproductive: Unremarkable as visualized. Bones/joints: Degenerative changes of the lumbar spine with narrowing of the L1-L2 interspace. Soft tissues: Unremarkable. IMPRESSION: 1. No acute process to explain the patient's abdominal pain. 2. Bilateral non-obstructing nephrolithiasis. 3. Diffuse hepatic steatosis. 4. Appendectomy.
--- NOTE | 2024-12-01 16:27 | XR_ITS ---
PROCEDURE INFORMATION: Exam: XR Chest Exam date and time: 12/01/2024 5:19 PM Age: 49 years old Clinical indication: Injury or trauma; Fall; Blunt trauma (contusions or hematomas) TECHNIQUE: Imaging protocol: Radiologic exam of the chest. Views: 1 view. COMPARISON: No relevant prior studies available. FINDINGS: Lungs: Unremarkable. No consolidation. Pleural spaces: Unremarkable. No pleural effusion. No pneumothorax. Heart/Mediastinum: Unremarkable. No cardiomegaly. Bones/joints: Unremarkable. IMPRESSION: No acute findings.
--- NOTE | 2024-12-01 16:27 | XR_ITS ---
PROCEDURE INFORMATION: Exam: XR Pelvis Exam date and time: 12/01/2024 5:19 PM Age: 49 years old Clinical indication: Injury or trauma; Fall; Blunt trauma (contusions or hematomas); Bilateral; Pelvic region; Additional info: Fall/trauma TECHNIQUE: Imaging protocol: Radiologic exam of the pelvis. Views: 1 or 2 view. COMPARISON: No relevant prior studies available. FINDINGS: Bones/joints: Unremarkable. No acute fracture. Soft tissues: Unremarkable. IMPRESSION: No acute findings.
--- NOTE | 2024-12-01 16:29 | CT_ITS ---
PROCEDURE INFORMATION: Exam: CT Lumbar Spine Without Contrast Exam date and time: 12/01/2024 7:39 PM Age: 49 years old Clinical indication: Injury or trauma; Fall; Other: Pain; Additional info: Fall/trauma lower back pain TECHNIQUE: Imaging protocol: Computed tomography of the lumbar spine without contrast. Radiation optimization: All CT scans at this facility use at least one of these dose optimization techniques: automated exposure control; mA and/or kV adjustment per patient size (includes targeted exams where dose is matched to clinical indication); or iterative reconstruction. COMPARISON: CT THORACIC SPINE WO CON 12/01/2024 7:36 PM FINDINGS: Bones/joints: There is narrowing of the L1-L2 interspace. Postop changes at L1 through L3 with residual hard where tracts following removal of prior pedicular screws on the left. Overall unchanged from multiple prior examinations. Hypertrophic changes of the facet joints are noted. Some anterior osteophytes are noted. Soft tissues: Unremarkable. IMPRESSION: 1. No acute traumatic injuries identified. 2. Postsurgical changes on the left from L1-L3 with hardware tracts following removal of prior screws. 3. Degenerative changes at L1-L2 unchanged from multiple prior studies.
--- NOTE | 2024-12-01 16:33 | ED_ITS ---
Discharge Plan Disposition Patient Disposition: Admitted Clinical Impressions Clinical Impression: Alcohol withdrawal, Delirium tremens Discharge ED Provider: Shakeel Wilson General Adult HPI <OLAYINKA Braden - Last Filed: 12/01/24 19:04> General Chief complaint: Alcohol Stated complaint: Syncopy Time Seen by Provider: 12/01/24 16:27 Mode of Arrival: EMS Source of Information: Patient Limitations: No Limitations History of Present Illness HPI narrative: 49-year-old male presents to the emergency department via EMS for an unwitnessed fall/syncopal episode that occurred several hours ago, unknown time down, patient is not on any anticoagulation therapy, patient is unsure if he struck the head, patient endorsed feeling sick , this morning with nausea and vomiting, after trying to drink Mountain Dew , patient is a current everyday drinker, consumes around 2 sleeves of fireball daily , he is previously been in rehab for alcohol withdrawal, endorses headache, neck pain and lower back pain, as well as some abdominal pain, he states that he has a history of kidney stones , and is complaining of kidney pain , denies any diarrhea constipation, denies any hematuria melena hematochezia or hematemesis, denies any fever or chills, denies chest pain, denies shortness of breath, admits to tremors and feeling quite anxious, he states he has had previous syncopal events, and he had somewhat of a prodrome of symptoms prior to the event. Patient's unwitnessed syncopal event/fall occurred in the shower , other past medical history consistent with current everyday smoker, denies anxiety disorder, PTSD, alcoholic fatty liver, duodenal ulcer, on current Suboxone therapy, COPD, hypothyroidism, alcoholism neuropathy. Initial triage vitals unremarkable. Also of note, EMS provided 4 mg of IV Zofran 500 mL liter IV fluids en route. Onset (ago): hour(s) Related Data Previous Rx's ?Medication ?Instructions ?Recorded ipratropium 0.5 mg-albuterol 3 mg 3 ml inhalation Q6HP PRN shortness 04/15/24 (2.5 mg base)/3 mL nebulization of breath or wheezing 30 days #180 soln mL multivitamin 1 tab PO DAILY #30 tabs 07/26 10/17 polyethylene glycol 3350 17 17 g PO DAILY 30 days #510 grams 08/08/24 gram/dose oral powder albuterol sulfate 90 mcg/actuation 2 puff inhalation Q 6HP PRN 10/14/24 aerosol inhaler shortness of breath or wheez ing #8.5 grams buprenorphine 8 mg-naloxone 2 mg 2 tab sublingual PETR Y 14 days #28 10/14/24 sublingual tablet tabs doxycycline hyclate 100 mg tablet 100 mg PO BID 4 days #8 tabs 10/14/24 fluticasone fur. 100 mcg-umeclid 1 inh inhalation PETR Y 30 days #60 10/14/24 62.5 mcg-vilant 25 mcg ea inhalat.powder (Trelegy Ellipta) folic acid 1 mg tablet 1 mg PO DAILY 30 days #30 ta bs 10/14/24 gabapentin 100 mg capsule 200 mg (2 x 100 mg) PO BID 3 0 days 10/14/24 #120 caps levothyroxine 25 mcg tablet 50 mcg (2 x 25 mcg) PO AMINAH LYDM 30 10/14/24 (Synthroid) days #60 tabs arzsqg-whssdnuo-vthpoph 2 cap PO AC 30 days #180 cap s 10/14/24 36,000-114,000-180,000 unit capsule,delay rel (Creon) misoprostol 200 mcg tablet 200 mcg PO BID 30 days #60 tabs 10/14/24 pantoprazole 40 mg tablet,delayed 40 mg PO BID 30 days #60 tabs 10/14/24 release prednisone 20 mg tablet 40 mg (2 x 20 mg) PO DAILY 4 days 10/14/24 #8 tabs sucralfate 1 gram tablet 1 g PO ACHS 30 days #120 tab s 10/14/24 thiamine HCl (vitamin B1) 100 mg 100 mg PO DAILY #30 t abs 10/14/24 tablet venlafaxine 37.5 mg tablet 37.5 mg PO BID 30 days #60 tabs 10/14/24 Allergies Allergy/AdvReac Type Severity Reaction Status Date / Time aspirin (ASPIRIN) Allergy Unknown Nose Bleed Verified 10/21/24 13:05 cephalexin (From Keflex) Allergy Gastrointestinal Verified 10/21/24 13:05 Upset piperacillin (From Zosyn) Allergy Hives Verified 10/21/24 13:05 tazobactam (From Zosyn) Allergy Hives Verified 10/21/24 13:05 PFSH <Daniele Lottie, PA - Last Filed: 12/01/24 19:04> [facility] Disclaimer: The information contained in this section may have been updated after the patient was seen, as this information can be updated by other users. Medical History (Updated 12/01/24 @ 23:13 by Shakeel Wilson MD) Anemia Hiccups Insomnia disorder Vomiting Hypophosphatemia Hypomagnesemia Acute hypokalemia Abdominal pain Epigastric pain Screening for malignant neoplasm of colon Nausea Dyspepsia Abdominal pain Substance use disorder SVT (supraventricular tachycardia) Hypokalemia Alcohol abuse Shortness of breath Hematemesis Sepsis due to pneumonia Abdominal pain, acute Alcohol use disorder Gastrointestinal bleed Duodenal ulcer Necrotizing pneumonia Pneumonia Drug abuse and dependence Back pain Rib pain Shoulder pain Neck pain Acute UTI Back pain Ankle fracture Fracture of distal end of fibula Sinusitis Cellulitis Exposure to COVID-19 virus PTSD (post-traumatic stress disorder) Acute blood loss anemia Peptic ulcer disease with hemorrhage Chronic pain Anxiety Acute bronchitis Elbow pain, left Acute urinary tract infection Leukocytosis Acute appendicitis High risk medication use Tobacco abuse Asthma exacerbation Depression Anxiety Traumatic brain injury Surgical History History of foot surgery H/O lithotripsy History of appendectomy H/O right knee surgery H/O anterior cruciate ligament surgery Previous back surgery Family History Grandmother Cancer Diabetes Stroke Grandfather Cancer Mother Diabetes Hypertension Social History Smoking Status: Current every day smoker tobacco type: cigarettes packs per day: 1 alcohol intake: current alcohol intake frequency: a few times a week counseling provided: provider counseling substance use type: former substance user and prescription drug current occupational status: disabled Travel in the last 8 weeks?: None household members: significant other housing: house current occupational exposures/hazards: No caffeine: No Have you lived/traveled outside [place] in past 30 days?: No Contact w/someone who lives/traveled outside [place] past 30 days?: No Exposure to someone with infectious disease in past 14 days?: No Do you have a fever (greater than 100.4 F or 38 C)?: No Have you tested positive for COVID-19?: No Exposed to someone with COVID-19 in past 14 days?: No Do you have a sore throat?: No Do you have a cough?: No Do you have any weakness?: No Do you have any diarrhea?: No Are you experiencing any unusual bleeding?: No Do you have any muscle aches/pain?: No Do you have any abdominal pain?: No Are you experiencing loss of taste or smell?: No Other Medical History Have you received the Flu Vaccine for this season: No Have you received the Pneumonia Vaccine: No <OLAYINKA Braden - Last Filed: 12/01/24 19:04> ROS Obtained: Yes All systems reviewed & no additional complaints except as documented Physical Exam <OLAYINKA Braden - Last Filed: 12/01/24 19:04> General General appearance: alert, in no apparent distress and anxious Comment: Moderately anxious appearing, actively tremulous bilateral upper extremities Head Head exam: atraumatic and normocephalic Eye Eye exam: Present PERRL and EOMI ENT ENT exam: Present mucous membranes moist Neck Neck exam: Present normal inspection Chest Chest inspection: Present normal inspection and symmetric chest wall rise Respiratory Respiratory exam: Present normal lung sounds bilaterally; Absent respiratory distress, wheezes, stridor or accessory muscle use Cardiovascular Cardiovascular exam: Present regular rate and normal rhythm Abdominal Exam Abdominal exam: Present soft and tenderness; Absent guarding, rebound or rigidity Abdominal tenderness: Present diffuse and mild Comment: Mild diffuse abdominal pain to palpation Extremities Exam Extremities exam: Present normal inspection Back Exam Back exam: Present normal inspection, full ROM, tenderness and paraspinal tenderness; Absent vertebral tenderness Comment: Is mild paraspinal tenderness palpation to the cervical spine, negative T-spine paraspinal and spinal tenderness palpation, mild paraspinal tenderness palpation to the lumbar spine, obvious scar from remote lumbar spine surgery, c-collar is in place per EMS Neurological Exam Neurological exam: Present alert and oriented X3 Psychiatric Psychiatric exam: Present normal affect and anxious Skin Skin exam: Present warm and dry Medical Decision Making <OLAYINKA Braden - Last Filed: 12/01/24 19:04> Medical Records Medical records reviewed: Yes I reviewed the patient's medical records. Screening: Per USPSTF and CDC recommendations, given the prevalence of disease in our region, it is our hospital?s policy to screen for HIV and viral Hepatitis for all patients aged 18 and over and those with ongoing risk factors. Dejan Inquiry Pt receiving controlled substance: Yes Dejan was queried for this patient: No Reason not queried -: Emergent pt cond-no time Risks and benefits of using a controlled substance: were discussed with pt by me Vital Signs: 12/01/24 16:33 12/01/24 16:45 12/01/24 17:00 Temperature 98.2 F Temperature Source Oral Pulse Rate 76 62 Pulse Rate [Left Radial] 78 Respiratory Rate 20 14 10 L Blood Pressure 141/85 H 151/85 H Blood Pressure [Right Arm] 157/95 H Blood Pressure Mean Blood Pressure Mean [Right Arm] 115 02 Sat by Pulse Oximetry 99 95 96 Oxygen Delivery Method Room Air 12/01/24 17:31 12/01/24 18:10 12/01/24 20:00 Temperature Temperature Source Pulse Rate 66 57 L Pulse Rate [Left Radial] Respiratory Rate 11 L 13 11 L Blood Pressure 129/79 148/85 H 138/83 Blood Pressure [Right Arm] Blood Pressure Mean 104 Blood Pressure Mean [Right Arm] 02 Sat by Pulse Oximetry 96 96 Oxygen Delivery Method Room Air 12/01/24 20:43 Temperature 97.9 F Temperature Source Oral Pulse Rate 57 L Pulse Rate [Left Radial] Respiratory Rate 11 L Blood Pressure 138/83 Blood Pressure [Right Arm] Blood Pressure Mean Blood Pressure Mean [Right Arm] 02 Sat by Pulse Oximetry Oxygen Delivery Method Room Air Lab Data Lab results reviewed: Yes I reviewed the patient's lab results. Lab Results 12/01/24 18:11: PT 15.3 H, INR 1.41 H, APTT 23.3, D-Dimer 1.62 H, Sodium 142, Potassium 3.6, Chloride 104, Carbon Dioxide 36 H, Anion Gap 5.6, BUN 14, C reatinine 0.60 L, Estimated Creat Clear 151, Estimated GFR 143, Est GFR ( Amer) 173, Glucose 106 H, Lactate 1.0, Calcium 9.0, Magnesium 1.5 L, Total Bilirubin 0.9, GGT 63, AST 41, ALT 8 L, Alkaline Phosphatase 119, Troponin I < 0.01, NT-Pro-B Natriuret Pep 120, Total Protein 7.3, Albumin 4.1, Globulin 3.2, Albumin/Globulin Ratio 1.3, Lipase 87, Plasma/Serum Alcohol < 10 12/01/24 18:50: WBC 7.7, RBC 4.28 L, Hgb 12.6 L, Hct 37.9 L, MCV 88.6, MCH 29.4, MCHC 33.2, RDW 14.0, Plt Count 152, MPV 9.7, Neut % (Auto) 66.0, Lymph % (Auto) 26.5, [place] % (Auto) 6.8, Eos % (Auto) 0.3, Baso % (Auto) 0.3, Neut # (Auto) 5.1, Lymph # (Auto) 2.0, [place] # (Auto) 0.5, Eos # (Auto) 0.0, Baso # (Auto) 0.0 12/01/24 19:23: Troponin I < 0.01 12/01/24 18:50 12/01/24 18:11 Orders (Tests/Meds): ED MEDICATIONS Generic Name Dose Route Start Last Admin Trade Name Freq PRN Reason Stop Dose Admin Folic Acid 1 mg 12/01/24 20:30 12/01/24 22:11 Folic Acid 1mg Tablet PO 12/31/24 20:29 1 mg DAILY JOSE Administration Multivitamins 10 ml/ Thiamine 1,015 mls @ 125 mls/hr 12/02/24 09:00 HCl 100 mg/ Magnesium Sulfate IV 01/01/25 08:59 2 gm/ Lactated Ringer's DAILY JOSE Lorazepam 2 mg 12/01/24 20:19 12/01/24 22:35 Lorazepam 2mg/Ml Vial IV 12/31/24 20:18 2 mg Q1HP PRN Administration CIWA >16 Lorazepam 1 mg 12/01/24 20:19 Lorazepam 1mg Tablet PO 12/31/24 20:18 Q1HP PRN CIWA Score 8-15 Lorazepam 1 mg 12/01/24 20:19 Lorazepam 1mg Tablet PO 12/31/24 20:18 Q6HP PRN CIWA 2-7 Multivitamins 1 each 12/02/24 17:00 Multivitamin Tablet PO 01/01/25 16:59 1700 JOSE Ondansetron HCl 4 mg 12/01/24 20:22 Ondansetron 4mg/2ml Vial IV 12/31/24 20:21 Q6HP PRN Nausea Pantoprazole Sodium 40 mg 12/01/24 21:00 12/01/24 22:12 Pantoprazole 40mg Tablet PO 12/31/24 20:59 40 mg HS JOSE Administration Sodium Chloride 10 ml 12/01/24 16:24 Sodium Chloride 0.9% 10ml Vial IV 12/31/24 16:23 NEEDED PRN to Dilute Lorazepam inj Sodium Chloride 10 ml 12/01/24 19:43 12/01/24 19:44 Sodium Chloride 0.9% 10ml Syr (Rad Only) IV 12/31/24 19:42 10 ml NEEDED PRN Administration Maintain IV Site Thiamine HCl 100 mg 12/01/24 20:30 12/01/24 22:11 Thiamine 100mg Tablet PO 12/03/24 09:01 100 mg DAILY JOSE Administration Discontinued Medications Generic Name Dose Route Start Last Admin Trade Name Freq PRN Reason Stop Dose Admin Belladonna Alkaloids 60 ml 12/01/24 20:24 12/01/24 22:12 Belladonna Alkaloids 60 Ml Ml PO 12/01/24 20:25 60 ml ONCE ONE Administration Diazepam 2 mg 12/01/24 16:30 12/01/24 16:45 Diazepam 10mg/2ml Syringe IV 12/01/24 16:31 2 mg ONCE ONE Administration Lactated Ringer's 1,000 mls @ 999 mls/hr 12/01/24 16:26 12/01/24 17:01 Lactated Ringer's 1000 Ml Bag IV 12/01/24 17:26 999 mls/hr .Q1H1M ONE Administration Multivitamins 10 ml/ Thiamine 1,015 mls @ 125 mls/hr 12/01/24 20:30 12/01/24 20:48 HCl 100 mg/ Magnesium Sulfate IV 12/31/24 20:29 125 mls/hr 2 gm/ Lactated Ringer's DAILY JOSE Administration Magnesium Sulfate 2 gm/ Sodium 104 mls @ 100 mls/hr 12/01/24 20:19 12/01/24 22:34 Chloride IV 12/01/24 21:21 100 mls/hr ONCE ONE Administration Iopamidol 75 ml 12/01/24 19:43 12/01/24 19:44 Iopamidol-370 (76%);100ml Bottle IV 12/01/24 19:44 75 ml ONCE ONE Administration Lorazepam 2 mg 12/01/24 20:21 12/01/24 20:25 Lorazepam 2mg/Ml Vial IV 12/01/24 20:22 2 mg ONCE ONE Administration Phenobarbital Sodium 130 mg 12/01/24 17:59 12/01/24 18:20 Phenobarbital Sod 65mg/Ml Inj IV 12/01/24 18:00 130 mg ONCE ONE Administration Sodium Chloride 10 ml 12/01/24 20:19 Sodium Chloride 0.9% 10ml Vial IV 12/31/24 20:18 NEEDED PRN to Dilute Lorazepam inj Sodium Chloride 10 ml 12/01/24 20:21 Sodium Chloride 0.9% 10ml Vial IV 12/31/24 20:20 NEEDED PRN to Dilute Lorazepam inj ORDERS Category Date Time Status CT abdomen pelvis w con Stat Cat Scan 12/01/24 16:[address] cervical spine wo con Stat Cat Scan 12/01/24 16:[address] head/brain wo con Stat Cat Scan 12/01/24 16:[address] lumbar spine wo con Stat Cat Scan 12/01/24 16:[address] thoracic spine wo con Stat Cat Scan 12/01/24 19:13 Completed Consult Short Order Fry Cook [CONS] Routine Cons 12/01/24 18:31 Active Pelvis XR 1-2 views [XR pelvis 1-2V] Stat Exams 12/01/24 16:27 Completed XR chest portable Stat Exams 12/01/24 16:27 Completed Activated Partial Thrombo Time Routine Lab 12/01/24 22:28 Received Complete Blood Count Auto Diff Stat Lab 12/01/24 18:50 Completed Comprehensive Metabolic Panel Stat Lab 12/01/24 18:11 Completed D-Dimer Stat Lab 12/01/24 18:11 Completed Drug Screen,Urine Stat Lab 12/01/24 16:18 Ordered Ethanol [Ethyl Alcohol] Stat Lab 12/01/24 18:11 Completed GGT [Gamma Glutamyl Transpeptidase] Stat Lab 12/01/24 18:11 Completed Lactic Acid Stat Lab 12/01/24 18:11 Completed Lipase Stat Lab 12/01/24 18:11 Completed Magnesium Stat Lab 12/01/24 18:11 Completed NT Pro Brain Natriuretic Pep. Stat Lab 12/01/24 18:11 Completed PT INR [Prothrombin Time INR] Stat Lab 12/01/24 18:11 Completed PTT [Activated Partial Thrombo Time] Stat Lab 12/01/24 18:11 Completed Prothrombin Time INR Routine Lab 12/01/24 22:28 Received Troponin I Q3H Lab 12/01/24 19:23 Completed Troponin I Q3H Lab 12/01/24 22:30 Ordered Troponin I Stat Lab 12/01/24 18:11 Completed Urinalysis and Microscopic Stat Lab 12/01/24 16:19 Ordered Medical Decision Narrative: 49-year-old male presents emergency department via EMS for a unwitnessed syncopal episode, as well as nausea vomiting, headache, neck pain, back pain abdominal pain. Differential diagnose include but not limited to acute alcohol withdrawal, vasovagal syncope, anemia, cardiogenic syncope, situational syncope, hypoglycemia, cardiac arrhythmia, electrolyte disturbance, PE, acute SDH, traumatic SAH, cervicalgia, C-spine fracture, L-spine fracture, acute soft tissue injury among others. Will obtain basic laboratory studies, EKG, PT/INR/PTT, lipase level, lactic acid level, GGT, ethyl alcohol level, D-dimer, UDS, urinalysis, magnesium level, proBNP, troponin, will give 1 L LR IV, and 2 mg IV diazepam, will obtain CIWA per nursing staff will also place account services specialist/consult Initial CIWA per myself and nursing staff is a 15. Patient still having quite significant symptoms and CIWA's continued to increase, patient now complaining of some hallucinations, will give 130 mg IV phenobarbital, to prevent alcohol withdrawal seizures/DTs. Reviewed the patient's chest x-ray along with the corresponding radiologic report, no acute findings I reviewed the patient's pelvic x-ray along with the corresponding radiologic report, no acute findings. No lactic acidosis. CMP also notable for hypercapnia at 36, dioxide level, minimal hypomagnesia 1.5, lipase within normal limits. Plasma/serum blood alcohol levels less than 10. Troponin within normal is proBNP within normal limit PTT is minimally elevated at 15.3, INR is minimally elevated at 1.41 Discussed this case with attending physician at shift change he will be assuming admitted the patient's care/workup. Disposition is most likely admission for elevated CIWA/alcohol withdrawal symptomatology, pending imaging studies from fall/syncopal episode. <Shakeel Wilson MD - Last Filed: 12/01/24 23:13> Vital Signs: 12/01/24 16:33 12/01/24 16:45 12/01/24 17:00 Temperature 98.2 F Temperature Source Oral Pulse Rate 76 62 Pulse Rate [Left Radial] 78 Respiratory Rate 20 14 10 L Blood Pressure 141/85 H 151/85 H Blood Pressure [Right Arm] 157/95 H Blood Pressure Mean Blood Pressure Mean [Right Arm] 115 02 Sat by Pulse Oximetry 99 95 96 Oxygen Delivery Method Room Air 12/01/24 17:31 12/01/24 18:10 12/01/24 20:00 Temperature Temperature Source Pulse Rate 66 57 L Pulse Rate [Left Radial] Respiratory Rate 11 L 13 11 L Blood Pressure 129/79 148/85 H 138/83 Blood Pressure [Right Arm] Blood Pressure Mean 104 Blood Pressure Mean [Right Arm] 02 Sat by Pulse Oximetry 96 96 Oxygen Delivery Method Room Air 12/01/24 20:43 Temperature 97.9 F Temperature Source Oral Pulse Rate 57 L Pulse Rate [Left Radial] Respiratory Rate 11 L Blood Pressure 138/83 Blood Pressure [Right Arm] Blood Pressure Mean Blood Pressure Mean [Right Arm] 02 Sat by Pulse Oximetry Oxygen Delivery Method Room Air Lab Data Lab Results 12/01/24 18:11: PT 15.3 H, INR 1.41 H, APTT 23.3, D-Dimer 1.62 H, Sodium 142, Potassium 3.6, Chloride 104, Carbon Dioxide 36 H, Anion Gap 5.6, BUN 14, C reatinine 0.60 L, Estimated Creat Clear 151, Estimated GFR 143, Est GFR ( Amer) 173, Glucose 106 H, Lactate 1.0, Calcium 9.0, Magnesium 1.5 L, Total Bilirubin 0.9, GGT 63, AST 41, ALT 8 L, Alkaline Phosphatase 119, Troponin I < 0.01, NT-Pro-B Natriuret Pep 120, Total Protein 7.3, Albumin 4.1, Globulin 3.2, Albumin/Globulin Ratio 1.3, Lipase 87, Plasma/Serum Alcohol < 10 12/01/24 18:50: WBC 7.7, RBC 4.28 L, Hgb 12.6 L, Hct 37.9 L, MCV 88.6, MCH 29.4, MCHC 33.2, RDW 14.0, Plt Count 152, MPV 9.7, Neut % (Auto) 66.0, Lymph % (Auto) 26.5, [place] % (Auto) 6.8, Eos % (Auto) 0.3, Baso % (Auto) 0.3, Neut # (Auto) 5.1, Lymph # (Auto) 2.0, [place] # (Auto) 0.5, Eos # (Auto) 0.0, Baso # (Auto) 0.0 12/01/24 19:23: Troponin I < 0.01 Orders (Tests/Meds): ED MEDICATIONS Generic Name Dose Route Start Last Admin Trade Name Freq PRN Reason Stop Dose Admin Folic Acid 1 mg 12/01/24 20:30 12/01/24 22:11 Folic Acid 1mg Tablet PO 12/31/24 20:29 1 mg DAILY JOSE Administration Multivitamins 10 ml/ Thiamine 1,015 mls @ 125 mls/hr 12/02/24 09:00 HCl 100 mg/ Magnesium Sulfate IV 01/01/25 08:59 2 gm/ Lactated Ringer's DAILY JOSE Lorazepam 2 mg 12/01/24 20:19 12/01/24 22:35 Lorazepam 2mg/Ml Vial IV 12/31/24 20:18 2 mg Q1HP PRN Administration CIWA >16 Lorazepam 1 mg 12/01/24 20:19 Lorazepam 1mg Tablet PO 12/31/24 20:18 Q1HP PRN CIWA Score 8-15 Lorazepam 1 mg 12/01/24 20:19 Lorazepam 1mg Tablet PO 12/31/24 20:18 Q6HP PRN CIWA 2-7 Multivitamins 1 each 12/02/24 17:00 Multivitamin Tablet PO 01/01/25 16:59 1700 JOSE Ondansetron HCl 4 mg 12/01/24 20:22 Ondansetron 4mg/2ml Vial IV 12/31/24 20:21 Q6HP PRN Nausea Pantoprazole Sodium 40 mg 12/01/24 21:00 12/01/24 22:12 Pantoprazole 40mg Tablet PO 12/31/24 20:59 40 mg HS JOSE Administration Sodium Chloride 10 ml 12/01/24 16:24 Sodium Chloride 0.9% 10ml Vial IV 12/31/24 16:23 NEEDED PRN to Dilute Lorazepam inj Sodium Chloride 10 ml 12/01/24 19:43 12/01/24 19:44 Sodium Chloride 0.9% 10ml Syr (Rad Only) IV 12/31/24 19:42 10 ml NEEDED PRN Administration Maintain IV Site Thiamine HCl 100 mg 12/01/24 20:30 12/01/24 22:11 Thiamine 100mg Tablet PO 12/03/24 09:01 100 mg DAILY JOSE Administration Discontinued Medications Generic Name Dose Route Start Last Admin Trade Name Martellq PRN Reason Stop Dose Admin Belladonna Alkaloids 60 ml 12/01/24 20:24 12/01/24 22:12 Belladonna Alkaloids 60 Ml Ml PO 12/01/24 20:25 60 ml ONCE ONE Administration Diazepam 2 mg 12/01/24 16:30 12/01/24 16:45 Diazepam 10mg/2ml Syringe IV 12/01/24 16:31 2 mg ONCE ONE Administration Lactated Ringer's 1,000 mls @ 999 mls/hr 12/01/24 16:26 12/01/24 17:01 Lactated Ringer's 1000 Ml Bag IV 12/01/24 17:26 999 mls/hr .Q1H1M ONE Administration Multivitamins 10 ml/ Thiamine 1,015 mls @ 125 mls/hr 12/01/24 20:30 12/01/24 20:48 HCl 100 mg/ Magnesium Sulfate IV 12/31/24 20:29 125 mls/hr 2 gm/ Lactated Ringer's DAILY JOSE Administration Magnesium Sulfate 2 gm/ Sodium 104 mls @ 100 mls/hr 12/01/24 20:19 12/01/24 22:34 Chloride IV 12/01/24 21:21 100 mls/hr ONCE ONE Administration Iopamidol 75 ml 12/01/24 19:43 12/01/24 19:44 Iopamidol-370 (76%);100ml Bottle IV 12/01/24 19:44 75 ml ONCE ONE Administration Lorazepam 2 mg 12/01/24 20:21 12/01/24 20:25 Lorazepam 2mg/Ml Vial IV 12/01/24 20:22 2 mg ONCE ONE Administration Phenobarbital Sodium 130 mg 12/01/24 17:59 12/01/24 18:20 Phenobarbital Sod 65mg/Ml Inj IV 12/01/24 18:00 130 mg ONCE ONE Administration Sodium Chloride 10 ml 12/01/24 20:19 Sodium Chloride 0.9% 10ml Vial IV 12/31/24 20:18 NEEDED PRN to Dilute Lorazepam inj Sodium Chloride 10 ml 12/01/24 20:21 Sodium Chloride 0.9% 10ml Vial IV 12/31/24 20:20 NEEDED PRN to Dilute Lorazepam inj ORDERS Category Date Time Status CT abdomen pelvis w con Stat Cat Scan 12/01/24 16:[address] cervical spine wo con Stat Cat Scan 12/01/24 16:[address] head/brain wo con Stat Cat Scan 12/01/24 16:[address] lumbar spine wo con Stat Cat Scan 12/01/24 16:[address] thoracic spine wo con Stat Cat Scan 12/01/24 19:13 Completed Consult Short Order Fry Cook [CONS] Routine Cons 12/01/24 18:31 Active Pelvis XR 1-2 views [XR pelvis 1-2V] Stat Exams 12/01/24 16:27 Completed XR chest portable Stat Exams 12/01/24 16:27 Completed Activated Partial Thrombo Time Routine Lab 12/01/24 22:28 Received Complete Blood Count Auto Diff Stat Lab 12/01/24 18:50 Completed Comprehensive Metabolic Panel Stat Lab 12/01/24 18:11 Completed D-Dimer Stat Lab 12/01/24 18:11 Completed Drug Screen,Urine Stat Lab 12/01/24 16:18 Ordered Ethanol [Ethyl Alcohol] Stat Lab 12/01/24 18:11 Completed GGT [Gamma Glutamyl Transpeptidase] Stat Lab 12/01/24 18:11 Completed Lactic Acid Stat Lab 12/01/24 18:11 Completed Lipase Stat Lab 12/01/24 18:11 Completed Magnesium Stat Lab 12/01/24 18:11 Completed NT Pro Brain Natriuretic Pep. Stat Lab 12/01/24 18:11 Completed PT INR [Prothrombin Time INR] Stat Lab 12/01/24 18:11 Completed PTT [Activated Partial Thrombo Time] Stat Lab 12/01/24 18:11 Completed Prothrombin Time INR Routine Lab 12/01/24 22:28 Received Troponin I Q3H Lab 12/01/24 19:23 Completed Troponin I Q3H Lab 12/01/24 22:30 Ordered Troponin I Stat Lab 12/01/24 18:11 Completed Urinalysis and Microscopic Stat Lab 12/01/24 16:19 Ordered ECG Data Tracing #1: I reviewed this ECG and interpreted as documented below: Normal sinus rhythm at a rate of 69, QTc 435, normal axis, no STEMI Medical Decision Narrative: 49-year-old male presents emergency department via EMS for a unwitnessed syncopal episode, as well as nausea vomiting, headache, neck pain, back pain abdominal pain. Differential diagnose include but not limited to acute alcohol withdrawal, vasovagal syncope, anemia, cardiogenic syncope, situational syncope, hypoglycemia, cardiac arrhythmia, electrolyte disturbance, PE, acute SDH, traumatic SAH, cervicalgia, C-spine fracture, L-spine fracture, acute soft tissue injury among others. Will obtain basic laboratory studies, EKG, PT/INR/PTT, lipase level, lactic acid level, GGT, ethyl alcohol level, D-dimer, UDS, urinalysis, magnesium level, proBNP, troponin, will give 1 L LR IV, and 2 mg IV diazepam, will obtain CIWA per nursing staff will also place account services specialist/consult Initial CIWA per myself and nursing staff is a 15. Patient still having quite significant symptoms and CIWA's continued to increase, patient now complaining of some hallucinations, will give 130 mg IV phenobarbital, to prevent alcohol withdrawal seizures/DTs. Reviewed the patient's chest x-ray along with the corresponding radiologic report, no acute findings I reviewed the patient's pelvic x-ray along with the corresponding radiologic report, no acute findings. No lactic acidosis. CMP also notable for hypercapnia at 36, dioxide level, minimal hypomagnesia 1.5, lipase within normal limits. Plasma/serum blood alcohol levels less than 10. Troponin within normal is proBNP within normal limit PTT is minimally elevated at 15.3, INR is minimally elevated at 1.41 Discussed this case with attending physician at shift change he will be assuming admitted the patient's care/workup. Disposition is most likely admission for elevated CIWA/alcohol withdrawal symptomatology, pending imaging studies from fall/syncopal episode. MD Steve: I assumed primary care of this patient as noted above at 1900. I had already examined the patient at bedside. Had a quite concerning exam with a high CIWA score, severe tremors and was complaining of auditory hallucinations. Had a history of alcohol withdrawal seizures in the past. He had already gotten phenobarbital. Plan to rule out traumatic injuries given patient's fall. CT imaging was independently interpreted by me, revealing of no acute intracranial pathology or spinal pathology. No acute intra-abdominal pathology. Patient remained severely symptomatic and was having visual hallucinations. Consulted hospital medicine where patient was ultimately admitted for severe alcohol withdrawal/delirium tremens Critical Care <OLAYINKA Braden - Last Filed: 12/01/24 19:04> Critical Care Time Critical Care Time: No
--- OUTSIDE RECORDS SUMMARY | 2024-12-01 16:43 | XMS_ITS | Encounter Summary ---
Author Organization [facility] [email or web address] In [employer] Address [address] [place] [address] Care Team Providers Care Supply Chain Buyer Name Role Phone Merlin Egan MD Primary Care Provider + [phone] Aj Valentine MD Primary Care Provider + [phone] Tim Rey MD Primary Care Provider + [phone] Encounter Details Date Type Department Care Team (Late st Contact Info) Description 03/14/2022 Transcribed Document [facility] [address] [place] [address] ProviderRocael MD [address] [place] [address] Social History Tobacco Use Types Packs/Day Years Used Date Smoking Tobacco: Never Assessed Sex and Gender Information Value Date Recorded Sex Assigned at Not on file Legal Sex Male 11:25 AM CDT Gender Identity Not on file Sexual Orientation Not on file documented as of this encounter Miscellaneous Notes * Cerner Conversion Note - Historical ProviderMD - 03/14/2022 5:00 AM CDT Chart Check - Review Order Profile Entered On: 03/14/2022 4:59 EDT Performed On: 03/14/2022 5:00 EDT by Bekah Ardon, RN Chart Check Powerplans Initiated/Discontinued as Appropriate : Yes All Active Orders Reviewed : Yes Bekah Ardon, RN - 03/14/2022 4:59 EDT Electronically signed by Niels [facility] Conversion Color Tester Cerner at 10/10/2022 4:07 PM CDT documented in this encounter Plan of Treatment Not on file documented as of this encounter Visit Diagnoses Not on filedocumented in this encounter Care Teams Supply Chain Buyer Relationship Specialty Start Date End Date Merlin Egan MD [address] [facility] [place] [address] PCP - General Family Medicine 04/18/22 12/12/23 Aj Valentine MD [address] [place] [address] PCP - General Adolescent Medicine 12/13/23 11/02/24 Tim Rey MD [address] [place] [address] PCP - General Family Medicine 11/03/24 documented as of this encounter
--- OUTSIDE RECORDS SUMMARY | 2024-12-01 16:44 | XMS_ITS | Encounter Summary ---
Author Organization [facility] In [employer] Address [address] [place] [address] Care Team Providers Care Corn Popper Name Role Phone Merlin Egan MD Primary Care Provider + [phone] Aj Valentine MD Primary Care Provider + [phone] Tim Rey MD Primary Care Provider + [phone] Encounter Details Date Type Department Care Team (Late st Contact Info) Description 03/14/2022 Transcribed Document [facility] Family Medicine [address] [place] [address] ProviderRocael MD [address] [place] [address] Social History Tobacco Use Types Packs/Day Years Used Date Smoking Tobacco: Never Assessed Sex and Gender Information Value Date Recorded Sex Assigned at Not on file Legal Sex Male 11:25 AM CDT Gender Identity Not on file Sexual Orientation Not on file documented as of this encounter Miscellaneous Notes * Cerner Conversion Note - Historical ProviderMD - 03/14/2022 3:50 PM CDT [facility] Main OR PreOp Summary Primary Physician: AJ HALL MD-URO Finalized Date/Time: 03/14/22 17:32:22 Pt. Name: JU DAVE /Sex: 1975 Male Med Rec #: [id number] Physician: STELLA WISEMAN MD Financial #: [id number] Pt. Type: I Room/Bed: [facility]/1 Admit/Disch: 03/13/22 12:32:00 - Institution: [facility] [place] PreOp Case Times Entry 1 In Preop 03/14/22 15:10:00 Ready for Holding n/a Room Patient Ready for 03/14/22 15:45:00 Surgery Patient Out of Preop 03/14/22 17:32:00 Patient Out of n/a Holding Room Last Modified By: Radha Pascal RN 03/14/22 17:32:22 [facility] PreOp Case Times Audit 03/14/22 17:32:22 Certified Art Therapist: [email or web address] Modifier: DOROTHYMARYFABIENNEMANISH <+> 1 Patient Out of Preop Finalized By: Radha Pascal, RN Document Signatures Signed By: Radha Pascal RN 03/14/22 17:32 Electronically signed by Niels [facility] Conversion Lockstitch Topstitcher Cerner at 10/10/2022 4:00 PM CDT documented in this encounter Plan of Treatment Not on file documented as of this encounter Visit Diagnoses Not on filedocumented in this encounter Care Teams Corn Popper Relationship Specialty Start Date End Date Merlin Egan MD [address] [place] [address] [place] [address] PCP - General Family Medicine 04/18/22 12/12/23 Aj Valentine MD [address] [facility] [address] [place] [address] PCP - General Adolescent Medicine 12/13/23 11/02/24 Tim Rey MD [address] [place] [address] PCP - General Family Medicine 11/03/24 documented as of this encounter
--- OUTSIDE RECORDS SUMMARY | 2024-12-01 16:44 | XMS_ITS | Encounter Summary ---
Author Organization [facility] In [employer] Address [address] [place] [address] Care Team Providers Care Adult Educator Name Role Phone Merlin Egan MD Primary Care Provider + [phone] Aj Valentine MD Primary Care Provider + [phone] Tim Rey MD Primary Care Provider + [phone] Encounter Details Date Type Department Care Team (Late st Contact Info) Description 03/14/2022 Transcribed Document [facility] Family Medicine [address] [place] [address] ProviderRocael MD [address] [place] [address] Social History Tobacco Use Types Packs/Day Years Used Date Smoking Tobacco: Never Assessed Sex and Gender Information Value Date Recorded Sex Assigned at Not on file Legal Sex Male 11:25 AM CDT Gender Identity Not on file Sexual Orientation Not on file documented as of this encounter Miscellaneous Notes * Cerner Conversion Note - Historical ProviderMD - 03/14/2022 5:41 PM CDT [facility] Main OR IntraOp Summary Primary Physician: AJ HALL MD-URO Finalized Date/Time: 03/14/22 18:05:23 Pt. Name: JU DAVE /Sex: 1975 Male Med Rec #: [id number] Physician: STELLA WISEAMN MD Financial #: [id number] Pt. Type: I Room/Bed: [facility] Admit/Disch: 03/13/22 12:32:00 - [place] [facility] [place]Op Case Attendance Entry 1 Entry 2 Entry 3 Case Attendee AJ HALL, OTHER, ATTENDEE Annamarie Marcelo MD-URO Scruff Worker Role Performed Surgeon/Proceduralist, Scrub, First Scrub, Second First Time In 03/14/22 17:30:00 03/14/22 17:30:00 03/14/22 17:30:00 Time Out 03/14/22 17:55:00 03/14/22 17:55:00 03/14/22 17:55:00 Procedure Cystoscopy Stent Cystoscopy Stent Cystoscopy Stent Insertion Insertion Insertion Other Attendee Tessa Chapo Superficial Wound Closed By: Last Modified By: LILIA WHITE, LILIA ALVAREZ RN MARX, CONNIE, RN 03/14/22 18:03:07 03/14/22 18:03:07 03/14/22 18:03:07 Entry 4 Entry 5 Entry 6 Case Attendee SERAFIN LOPES, Tyrone Romero MARX, CONNIE, RERE PERSONAL INJURY LITIGATION PARALEGAL Role Performed HEDGE TRIMMER/Nurse Book Shelver Icu Nurse Portrait Painter, First Time In 03/14/22 17:30:00 03/14/22 17:30:00 03/14/22 17:30:00 Time Out 03/14/22 17:55:00 03/14/22 17:55:00 03/14/22 17:55:00 Procedure Cystoscopy Stent Cystoscopy Stent Cystoscopy Stent Insertion Insertion Insertion Other Attendee Superficial Wound Closed By: Last Modified By: LILIA WHITE, LILIA ALVAREZ, LILIA ALVAREZ RN 03/14/22 18:03:07 03/14/22 18:03:07 03/14/22 18:03:07 [facility] Case Attendance Audit 03/14/22 18:03:07 Labview Programmer: DAMIENO Modifier: MARXCO 1 <*> Procedure Cystoscopy Stent Insertion 2 <*> Procedure Cystoscopy Stent Insertion 3 <+> Time In 3 <+> Time Out 3 <*> Procedure Cystoscopy Stent Insertion 4 <+> Time In 4 <+> Time Out 4 <*> Procedure Cystoscopy Stent Insertion 5 <+> Time In 5 <+> Time Out 5 <*> Procedure Cystoscopy Stent Insertion 6 <+> Time In 6 <+> Time Out 6 <*> Procedure Cystoscopy Stent Insertion 03/14/22 18:00:10 Labview Programmer: SHARONSARY Modifier: MARXCO <+> 1 Time Out <+> 1 Procedure 2 <+> Time In 2 <+> Time Out 2 <*> Procedure Cystoscopy Stent Insertion <+> 3 Case Attendee <+> 3 Role Performed <+> 3 Procedure <+> 4 Case Attendee <+> 4 Role Performed <+> 4 Procedure <+> 5 Case Attendee <+> 5 Role Performed <+> 5 Procedure <+> 6 Case Attendee <+> 6 Role Performed <+> 6 Procedure [facility] IntraOp Case Times Entry 1 Patient In Room Time 03/14/22 17:30:00 Out Room Time 03/14/22 17:55:00 Anesthesia Start Time 03/14/22 17:30:00 Stop Time 03/14/22 17:55:00 Anesthesia Ready 03/14/22 17:30:00 Surgery / Procedure Times Start Time 03/14/22 17:41:00 Stop Time 03/14/22 17:46:00 Last Modified By: LILIA WHITE RN 03/14/22 17:57:27 [facility] IntraOp Case Times Audit 03/14/22 17:57:27 Labview Programmer: SHARONSARY Modifier: MARXCO <+> 1 Out Room Time <+> 1 Start Time <+> 1 Stop Time <+> 1 Stop Time <+> 1 Anesthesia Ready [facility] IntraOp Communication Entry 1 Communication To Family/Significant other Communication By AJ HALL MD-URO Date and Time 03/14/22 18:03:00 Last Modified By: LILIA WHITE RN 03/14/22 18:03:14 [facility] IntraOp Counts Verification Entry 1 Procedure Cystoscopy Stent Insertion Count Info Count Type Sponge Counts Verification Baseline/pre-procedure Sequence Count Results Not Applicable Counts Performed By Count Performed By OTHER, ATTENDEE (Scrub) Count Performed By LILIA WHITE, RN (RN) Last Modified By: LILIA WHITE RN 03/14/22 18:01:04 [facility] IntraOp Departure from OR Entry 1 Integumentary Assessment Transfer/Handoff Transfer to PACU Phase I Handoff Method Bedside/Face to face Post-op Transport Stretcher/Gurney Via Patient Transport SERAFIN LOPES, Accompanied by CINDY JACOB CONNIE, RN Last Modified By: LILIA WHITE RN 03/14/22 18:02:23 [facility] IntraOp Departure from OR Audit 03/14/22 18:02:23 Labview Programmer: MARXCO Modifier: MARXCO <+> 1 Post-op Transport Via <+> 1 Patient Transport Accompanied by <+> 1 Handoff Method [facility] IntraOp Fire Risk Assessment Entry 1 Fire Info Surgical Site or 0- No Incision Above the Xyphoid Open O2 Source 0- No (Mask or Cannula) Available Ignition 1- Yes (ESU, Laser, Light Source) Fire Risk 1 Assessment Score Fire Score Fire Risk Yes Assessment Complete Fire Risk LILIA WHITE RN Assessment Verified By Fire Risk 03/14/22 17:30:00 Assessment Verified Date/Time Fire Risk Standard Fire Yes Safety Precautions Followed Last Modified By: LILIA WHITE RN 03/14/22 18:01:22 [facility] IntraOp General Case Marine Oiler 1 Case Information OR OR 07 [facility] Case Level 1 Room Verified Yes Wound Class 1 - Clean Specialty Urology Anesthesia Type General ASA Class 2 Diagnosis Preop Diagnosis left ureteral blockage Postop Same As Preop No Postop Diagnosis as dictated post op Wound Class Definitions Last Modified By: LILIA WHITE RN 03/14/22 18:02:14 [facility] IntraOp Implant Log Entry 1 Type Implant (Synthetic) Implant Log Implant Type Other Implant STENT URET CNTOUR Identification [id number] Description Implant Quantity 1 Implant Site left ureter Implant [id number] Identification Lot Number Implant [place] Identification Sci:Urology/Gynecology Pricing Lead Name: Implant [id number] Identification Catalog Number Implant Has an Yes Expiration Date Implant Expiration 05/15/24 Date Tissue Implant Last Modified By: LILIA WHITE RN 03/14/22 17:44:04 [facility] IntraOp Intraoperative Assessment Entry 1 Handoff Method Bedside/Face to face Valid History / Yes Physical in Chart Preoperative Yes Checklist Reviewed/Evaluated Allergies Reviewed Yes Patient is Latex No Sensitive Isolation Not applicable Precautions Noted Level of WDL Consciousness (WDL = Alert, Oriented to Person, Place, and Time) Skin Assessment Yes Verified Present Upon IVs Arrival to OR Last Modified By: LILIA WHITE RN 03/14/22 18:01:50 [facility] IntraOp Intraoperative Equipment Entry 1 Type Equipment Equipment Equipment Davis Suction System ID Number [id number] Intraop Monitoring Electrocardiogram Three lead placement (ECG) Electrode Placement Blood Pressure Non-Invasive BP Device Source Antiembolic Devices Scopes Photo/Video Documentation Last Modified By: LILIA WHITE RN 03/14/22 17:44:57 [facility] IntraOp Medication Admin Entry 1 Medication/Irrigant lidocaine 2% urojet 10ml jelly - [id number] Route of topical Administration Dose Volume qs Administered By AJ HALL MD-URO Procedure Irrigation Last Modified By: LILIA WHITE RN 03/14/22 18:02:35 [facility] IntraOp Patient Positioning Entry 1 Procedure Cystoscopy Stent Insertion Body Position Lithotomy Left Arm Position Resting at side Right Arm Position Resting at side Left Leg Position Secured in Leg Cantrell Right Leg Position Secured in Leg Cantrell Feet Uncrossed Yes Pressure Points Yes Checked Positioning Devices Stirrups/Leg Cantrell, Cysto, Arm Board Positioned By LILIA WHITE RN, SERAFIN LOPES CRNA, AJ HALL MD-URO Position Verified Positioning Yes Verified by Anesthesia Positioning Yes Verified by Surgeon Last Modified By: LILIA WHITE RN 03/14/22 18:02:58 [facility] IntraOp Sign In Entry 1 Patient, Site, Yes Procedure Identified Surgical Consent Yes Confirmed Relevant Surgical Yes Documents Available Surgical Site Yes Marked by person performing procedure Anesthesia Machine Yes Check Completed Medication Checks Yes Completed Allergies Yes Airway Difficult No Airway/Aspiration Risk Difficult Yes Airway/Aspiration Intervention Equipment Available Blood Loss Risk No Blood Loss No Intervention Equipment Prepared and Ready Hypothermia Risk Yes Warming Measures Yes Taken Last Modified By: LILIA WHITE RN 03/14/22 18:03:05 [facility] Intra Op Sign Out Entry 1 RN Confirmation Surgical Yes Procedure(s) Identified Instrument, Sponge Yes and Sharps Counts Correct/Documented Equipment Problems N/A Documented Urinary Catheter N/A Documented in IView Wound Yes classification reviewed, verified and updated post case in both the General Case Data and Procedure segments Sagastume Patient Yes Recovery Concerns Reviewed with Anesthesia Provider, Surgeon and RN Sagastume Patient Yes Management Concerns Reviewed with Anesthesia Provider, Surgeon and RN Safety Checklist Yes Elements Complete? RN Sign Out LILIA WHITE RN Signature RN Sign Out 03/14/22 18:02:00 Signature Date/Time Plan of Care Outcome - Fire Risk OUTCOME STATEMENT: Goal met Patient is free from injury related to surgical fire Plan of Care Outcome - Pt Positioning OUTCOME STATEMENT: Goal met Absence of signs and symptoms of positioning injury. Plan of Care Outcome - Skin Prep OUTCOME STATEMENT: Goal met Intraoperative care is consistent with measures to prevent infection Plan of Care Outcome - Xray/Images OUTCOME STATEMENT: Goal met Absence of observable signs or symptoms of radiation injury Plan of Care Outcome - Counts OUTCOME STATEMENT: Goal met Absence of signs and symptoms of injury related to extraneous objects Last Modified By: LILIA WHITE RN 03/14/22 18:02:46 [facility] IntraOp Skin Prep Entry 1 Procedure Cystoscopy Stent Insertion Prescribed Yes Pre-Surgical Prep Completed Intraop Prep Integumentary WDL Assessment WDL Prep Agents Betadine solution Prep by LILIA WHITE RN Hair Removal Last Modified By: LILIA WHITE RN 03/14/22 18:01:41 [facility] IntraOp Surgical Procedures Entry 1 Procedure Cystoscopy Stent Insertion Additional left stent placement Procedure Description Primary Procedure Yes Primary Surgeon AJ HALL MD-URO Start 03/14/22 17:41:00 Stop 03/14/22 17:46:00 Anesthesia Type General Specialty Urology Wound Class 1 - Clean Last Modified By: LILIA WHITE RN 03/14/22 18:01:30 [facility] IntraOp Time Out Entry 1 Procedure to be Cystoscopy Stent Performed Insertion Time Out Time Out Pause Time 03/14/22 17:41:00 All activity Yes suspended (unless life threatening emergency) Team Verbally Correct patient Confirms Information identity, Correct side and site are marked, Consent form is present and accurate, Agreement on the procedure to be done, Correct patient position, Confirm antibiotics have been administered, Confirm the skin prep has dried, Confirm prosthesis/implant/devic e is present, Performed in location of procedure after prepped/draped, Performed before each procedure if multiple procedures, Reconcile problems if responses among team members differ Antibiotic N/A Prophylaxis Administered Or In Progress Within the Last 60 Minutes Beta Christine N/A Administered Venous N/A Thromboembolism Prophylaxis Required Anticipated Critical Events Surgeon None expected Anesthesia Provider None expected Nursing Assures Sterility of instruments Essential Imaging N/A Labeled and Displayed Last Modified By: LILIA WHITE RN 03/14/22 18:00:50 AMARJIT IntraOp Time Out Audit 03/14/22 18:00:50 Labview Programmer: TERRELL Modifier: TERRELL 1 <+> Beta Christine Administered 1 <+> Venous Thromboembolism Prophylaxis Required 1 <+> Antibiotic Prophylaxis Administered Or In Progress Within the Last 60 Minutes 1 <+> Surgeon 1 <+> Anesthesia Provider 1 <+> Nursing Assures 1 <+> Essential Imaging Labeled and Displayed 1 <*> Procedure to be Performed Cystoscopy Stent Insertion 1 <+> Team Verbally Confirms Information Case Comments <None> Finalized By: LILIA WHITE, RN Document Signatures Signed By: LILIA WHITE RN 03/14/22 18:03 LILIA WHITE RN 03/14/22 18:05 Unfinalized History Date/Time Username Reason for Unfinalizing Freetext Reason for Unfinalizing 03/14/22 18:03 TERRELL Modify Pick List documented in this encounter Plan of Treatment Not on file documented as of this encounter Visit Diagnoses Not on filedocumented in this encounter Care Teams Adult Educator Relationship Specialty Start Date End Date Merlin Egan MD [address] [place] [address] [place] [address] PCP - General Family Medicine 04/18/22 12/12/23 Aj Valentine MD [address] [facility] [address] [place] [address] PCP - General Adolescent Medicine 12/13/23 11/02/24 Tim Rey MD [address] [facility] [address] [place] [address] PCP - General Family Medicine 11/03/24 documented as of this encounter
--- OUTSIDE RECORDS SUMMARY | 2024-12-01 16:44 | XMS_ITS | Encounter Summary ---
Author Organization [facility] [employer] In [employer]atives Address [address] [place] [address] Care Team Providers Care Supervisor Slate Splitting Name Role Phone Merlin Egan MD Primary Care Provider + [phone] Aj Valentine MD Primary Care Provider + [phone] Tim Rey MD Primary Care Provider + [phone] Encounter Details Date Type Department Care Team (Late st Contact Info) Description 03/14/2022 Transcribed Document [facility] [place] Family Medicine [address] [place] [address] ProviderRocael MD [address] [place] [address] Social History Tobacco Use Types Packs/Day Years Used Date Smoking Tobacco: Never Assessed Sex and Gender Information Value Date Recorded Sex Assigned at Not on file Legal Sex Male 11:25 AM CDT Gender Identity Not on file Sexual Orientation Not on file documented as of this encounter Miscellaneous Notes * Cerner Conversion Note - Historical ProviderMD - 03/14/2022 10:31 AM CDT Patient: BRANDON DAVE Age: 46 Years Sex: Male : 1975 Subjective Patient still complaining of pain, not very well controlled currently. Blood pressure has been elevated. Feels like he is having some withdrawal symptoms including feeling jittery and clammy. Going to the OR today. Vital Signs T: 36.5 ??C TMIN: 36.5 ??C TMAX: 36.7 ??C HR: 57(Monitored) RR: 16 BP: 153/92 SpO2: 97% HT: 172.72 cm WT: 60 kg BMI: 20.11 Oxygen Settings (Last) Oxygen Therapy Mode: Room air (03/13/22 13:00:00) Intake & Output Totals Last 24 Hours (7a-7a) Input Total: 397 mL Output Total: 327 mL Balance: 70 mL Physical Exam General: Alert, well nourished, restless Neurologic: Moves all 4 extremities spontaneously, oriented X3, no focal deficits appreciated Lungs: Clear to auscultation, non-labored respiration, no crackles, no wheeze Heart: Normal rate, regular rhythm, no murmur, no edema Abdomen: Soft, non-tender, non-distended, normal bowel sounds Musculoskeletal: No obvious deformity, no tenderness Skin: warm, dry, no rashes or lesions Psychiatric: Cooperative, anxious Assessment/Plan #Urolithiasis Urology following: Going for cystoscopy with left stent placement today Pain control #UTI Levaquin Culture pending #Abdominal/flank pain Secondary to above #Substance abuse Alcohol, cocaine, benzos, Suboxone, amphetamines CIWA protocol Folic acid, thiamine #Noncardiac chest pain Most likely related to left flank Cardiology evaluated; consider outpatient cardiac work-up but otherwise no further recommendations at this time #Elevated blood pressure On a no home meds, most likely due to pain and withdrawal PRN labetalol, hydralazine #Electrolyte depletion Replace and monitor #Elevated bilirubin Denies RUQ pain and numbers are trending down Monitor and will most likely recommend outpatient work-up/follow-up Disposition: Still hospitalized due to -going for cystoscopy and stent placement today. Having symptoms of withdrawal. Awaiting urine culture results, replacing electrolytes At d/c will likely need - OLOP eval Tentatively at d/c will be going to -home Expected d/c date -03/15 VTE Prophylaxis - Medical Heparin 5,000 Units, SubCutaneous, Inj, Q8HInt, Routine, Start 03/13/22 14:00:00 EDT, 03/13/22 13:17:00 EDT (ZEINAB DAWSON MD-INT) Sequential Compression Device Start: 03/13/22 12:47:00 EDT, Bilateral, Length: Knee High, While patient is in bed, Continuous Order (ZEINAB DAWSON MD-INT) Medications Ativan, 1 mg= 1 Tab, Oral, Q30Min, PRN Ativan, 1 mg= 0.5 mL, IV Push, Q30Min, PRN Ativan, 2 mg= 2 Tab, Oral, Q30Min, PRN Ativan, 2 mg= 1 mL, IV Push, Q30Min, PRN Ativan, 3 mg= 3 Tab, Oral, Q30Min, PRN Ativan, 3 mg= 1.5 mL, IV Push, Q30Min, PRN Ativan, 4 mg= 4 Tab, Oral, Q30Min, PRN Ativan, 4 mg= 2 mL, IV Push, Q30Min, PRN buprenorphine-naloxone, 2 Tab, SubLINgual, Daily calcium gluconate, 1 Gram= 50 mL, IV Piggyback, Daily, PRN calcium gluconate, 2 Gram= 100 mL, IV Piggyback, Daily, PRN calcium gluconate, 2 Gram= 100 mL, IV Piggyback, Q12H, PRN Catapres, 0.1 mg= 1 Tab, Oral, Q6H, PRN Colace, 100 mg= 1 Cap, Oral, BID Dilaudid, 0.5 mg= 0.5 mL, IV Push, Q4H, PRN Dulcolax Laxative, 5 mg= 1 Tab, Oral, Daily, PRN DuoNeb 0.5 mg-2.5 mg/3 mL inhalation solution, 3 mL, Nebulized Inhalation , RT_Q6H, PRN folic acid, 1 mg= 1 Tab, Oral, Daily haloperidol, 2 mg= 0.4 mL, IntraMuscular, Q4H, PRN heparin, 5000 Units= 1 mL, SubCutaneous, Q8HInt hydrALAZINE, 10 mg= 0.5 mL, IV Push, Q1H, PRN hydrOXYzine hydrochloride, 50 mg= 2 Tab, Oral, Q6H, PRN labetalol, 20 mg= 4 mL, IV Push, Q1H, PRN Levaquin, 750 mg= 150 mL, IV Piggyback, [id number] magnesium sulfate, 2 Gram= 50 mL, IV Piggyback, Daily, PRN magnesium sulfate, 2 Gram= 50 mL, IV Piggyback, Q2HInt, PRN melatonin, 3 mg= 1 Tab, Oral, At Bedtime, PRN MiraLax, 17 Gram= 1 Packet, Oral, Daily, PRN Nicoderm C-Q 14 mg/24 hr transdermal film, extended release, 1 Patch, TransDermal, Daily potassium chloride 10 mEq/50 mL intravenous solution, 10 mEq= 100 mL, IV Piggyback, Q1H, PRN potassium chloride 20 mEq oral tablet, extended release, 20 mEq= 1 Tab, Oral, Q2H, PRN potassium chloride 20 mEq oral tablet, extended release, 60 mEq= 3 Tab, Oral, Q2H, PRN Protonix, 40 mg= 1 Tab, Oral, Daily Roxicodone, 5 mg= 1 Tab, Oral, Q4H, PRN Sodium Chloride 0.9% intravenous solution 1,000 mL, 1000 mL, IntraVENous sodium phosphate sodium phosphate thiamine, 200 mg= 2 Tab, Oral, Daily Tylenol, 650 mg= 2 Tab, Oral, Q4H, PRN Zofran, 4 mg= 2 mL, IV Push, Q4H, PRN Lab Results Test Name Test Result Date/Time Sodium Level 140 mmol/L 03/14/2022 05:16 EDT Sodium Level 142 mmol/L 03/13/2022 14:10 EDT Potassium Level 3.3 mmol/L (Low) 03/14/2022 05:16 EDT Potassium Level 2.9 mmol/L (Low) 03/13/2022 14:10 EDT Chloride Level 104 mmol/L 03/14/2022 05:16 EDT Chloride Level 103 mmol/L 03/13/2022 14:10 EDT Carbon Dioxide Level 31 mmol/L 03/14/2022 05:16 EDT Carbon Dioxide Level 32 mmol/L 03/13/2022 14:10 EDT Anion Gap 8 (Low) 03/14/2022 05:16 EDT Anion Gap 10 03/13/2022 14:10 EDT Glucose Level 76 mg/dL 03/14/2022 05:16 EDT Glucose Level 73 mg/dL (Low) 03/13/2022 14:10 EDT Blood Urea Nitrogen 15 mg/dL 03/14/2022 05:16 EDT Blood Urea Nitrogen 12 mg/dL 03/13/2022 14:10 EDT Creatinine Level 0.86 mg/dL 03/14/2022 05:16 EDT Creatinine Level 0.80 mg/dL 03/13/2022 14:10 EDT eGFR >60 mL/min/1.73m2 03/14/2022 05:16 EDT eGFR >60 mL/min/1.73m2 03/13/2022 14:10 EDT eGFR NonAfrican >60 mL/min/1.73m2 03/14/2022 05:16 EDT eGFR NonAfrican >60 mL/min/1.73m2 03/13/2022 14:10 EDT Bun/Creatinine 17.4 03/14/2022 05:16 EDT Bun/Creatinine 15.0 03/13/2022 14:10 EDT Calcium Level 8.2 mg/dL (Low) 03/14/2022 05:16 EDT Calcium Level 8.3 mg/dL (Low) 03/13/2022 14:10 EDT Protein Total 5.8 Gram/dL (Low) 03/14/2022 05:16 EDT Protein Total 6.6 Gram/dL 03/13/2022 14:10 EDT Albumin Level 2.6 Gram/dL (Low) 03/14/2022 05:16 EDT Albumin Level 3.1 Gram/dL (Low) 03/13/2022 14:10 EDT Globulin 3.2 Gram/dL 03/14/2022 05:16 EDT Globulin 3.5 Gram/dL 03/13/2022 14:10 EDT A/G Ratio 0.8 (Low) 03/14/2022 05:16 EDT A/G Ratio 0.9 (Low) 03/13/2022 14:10 EDT Bilirubin Total 1.6 mg/dL (High) 03/14/2022 05:16 EDT Bilirubin Total 1.8 mg/dL (High) 03/13/2022 14:10 EDT Bilirubin Direct 1.0 mg/dL (High) 03/13/2022 14:10 EDT Alk Phos 113 Units/Liter 03/14/2022 05:16 EDT Alk Phos 134 Units/Liter 03/13/2022 14:10 EDT AST 74 Units/Liter (High) 03/14/2022 05:16 EDT AST 103 Units/Liter (High) 03/13/2022 14:10 EDT ALT 14 Units/Liter 03/14/2022 05:16 EDT ALT 17 Units/Liter 03/13/2022 14:10 EDT Magnesium Level 1.4 mg/dL (Low) 03/14/2022 05:16 EDT Magnesium Level 1.5 mg/dL 03/13/2022 14:10 EDT Phosphorus 2.8 mg/dL 03/14/2022 05:16 EDT Phosphorus 2.9 mg/dL 03/13/2022 14:11 EDT CK 77 Units/Liter 03/13/2022 20:47 EDT CK 72 Units/Liter 03/13/2022 14:10 EDT Troponin I High Sensitivity 6.8 pg/mL 03/13/2022 20:47 EDT Troponin I High Sensitivity 7.1 pg/mL 03/13/2022 14:10 EDT CK MB <1.00 ng/mL 03/14/2022 05:16 EDT CK MB <1.00 ng/mL 03/13/2022 20:47 EDT CK MB <1.00 ng/mL 03/13/2022 14:10 EDT WBC 5.4 K/uL 03/14/2022 05:16 EDT WBC 5.6 K/uL 03/13/2022 14:10 EDT RBC 3.86 Million/uL (Low) 03/14/2022 05:16 EDT RBC 4.33 Million/uL (Low) 03/13/2022 14:10 EDT Hgb 14.2 Gram/dL 03/14/2022 05:16 EDT Hgb 16.1 Gram/dL 03/13/2022 14:10 EDT Hct 41.8 % 03/14/2022 05:16 EDT Hct 46.5 % 03/13/2022 14:10 EDT MCV 108.3 fL (High) 03/14/2022 05:16 EDT MCV 107.4 fL (High) 03/13/2022 14:10 EDT MCH 36.8 pg (High) 03/14/2022 05:16 EDT MCH 37.2 pg (High) 03/13/2022 14:10 EDT MCHC 34.0 Gram/dL 03/14/2022 05:16 EDT MCHC 34.6 Gram/dL 03/13/2022 14:10 EDT Platelet Count 166 K/uL 03/14/2022 05:16 EDT Platelet Count 173 K/uL 03/13/2022 14:10 EDT MPV 9.6 fL 03/14/2022 05:16 EDT MPV 10.1 fL 03/13/2022 14:10 EDT RDW 13.2 % 03/14/2022 05:16 EDT RDW 13.3 % 03/13/2022 14:10 EDT Neut % 38.8 % 03/14/2022 05:16 EDT Neut % 40.5 % 03/13/2022 14:10 EDT Neut # 2.09 K/uL 03/14/2022 05:16 EDT Neut # 2.25 K/uL 03/13/2022 14:10 EDT Lymph % 45.3 % 03/14/2022 05:16 EDT Lymph % 44.0 % 03/13/2022 14:10 EDT Lymph # 2.44 K/uL 03/14/2022 05:16 EDT Lymph # 2.44 K/uL 03/13/2022 14:10 EDT Sawyer % 7.4 % 03/14/2022 05:16 EDT Sawyer % 8.3 % 03/13/2022 14:10 EDT Sawyer # 0.40 K/uL 03/14/2022 05:16 EDT Sawyer # 0.46 K/uL 03/13/2022 14:10 EDT Eos % 7.6 % (High) 03/14/2022 05:16 EDT Eos % 6.5 % 03/13/2022 14:10 EDT Eos # 0.41 K/uL 03/14/2022 05:16 EDT Eos # 0.36 K/uL 03/13/2022 14:10 EDT Baso % 0.7 % 03/14/2022 05:16 EDT Baso % 0.5 % 03/13/2022 14:10 EDT Baso # 0.04 K/uL 03/14/2022 05:16 EDT Baso # 0.03 K/uL 03/13/2022 14:10 EDT Slide Review No 03/14/2022 05:16 EDT Slide Review No 03/13/2022 14:10 EDT IG# 0 x10(3)/uL 03/14/2022 05:16 EDT IG# 0 x10(3)/uL 03/13/2022 14:10 EDT IG% 0 % 03/14/2022 05:16 EDT IG% 0 % 03/13/2022 14:10 EDT PT 11.5 Second(s) 03/14/2022 05:16 EDT PT 10.9 Second(s) 03/13/2022 14:10 EDT INR 1.1 03/14/2022 05:16 EDT INR 1.0 03/13/2022 14:10 EDT Urine Type. U Cath 03/13/2022 15:17 EDT Urine Color Dark-Oran 03/13/2022 15:17 EDT Urine Appearance Turbid (Abnormal) 03/13/2022 15:17 EDT Urine Specific Rainelle 1.028 03/13/2022 15:17 EDT Urine pH Dipstick 6.0 03/13/2022 15:17 EDT Urine Leukocyte Esterase 500 (Abnormal) 03/13/2022 15:17 EDT Urine Nitrite NEGATIVE2 03/13/2022 15:17 EDT Urine Protein Dipstick 1+ (Abnormal) 03/13/2022 15:17 EDT Urine Glucose Dipstick Normal2 03/13/2022 15:17 EDT Urine Ketones Dipstick NEGATIVE2 03/13/2022 15:17 EDT Urine Urobilinogen Dipstick OVER 03/13/2022 15:17 EDT Urine Bilirubin Dipstick 1+ (Abnormal) 03/13/2022 15:17 EDT Urine Blood Dipstick 3+ (Abnormal) 03/13/2022 15:17 EDT Ur RBC To Numerous to Count (Abnormal) 03/13/2022 15:17 EDT Ur WBC To Numerous to Count (Abnormal) 03/13/2022 15:17 EDT Ur Bacteria 1+ (Abnormal) 03/13/2022 15:17 EDT Ur Mucous 4+ (Abnormal) 03/13/2022 15:17 EDT Ur Squamous Epithelial Cells NONE 03/13/2022 15:17 EDT Urine Culture if Indicated Culture Ordered 03/13/2022 15:17 EDT UDS pH 6.6 03/13/2022 15:17 EDT UDS Amp AUPOS (Abnormal) 03/13/2022 15:17 EDT UDS Shiela AUNEG 03/13/2022 15:17 EDT UDS Benzo AUNEG 03/13/2022 15:17 EDT UDS Brittnee AUPOS (Abnormal) 03/13/2022 15:17 EDT UDS Meth AUNEG 03/13/2022 15:17 EDT UDS Opi AUPOS (Abnormal) 03/13/2022 15:17 EDT UDS Oxy AUPOS (Abnormal) 03/13/2022 15:17 EDT UDS PCP AUNEG 03/13/2022 15:17 EDT UDS TCA AUNEG 03/13/2022 15:17 EDT UDS THC AUPOS (Abnormal) 03/13/2022 15:17 EDT Buprenorphine Screen, Urine AUPOS (Abnormal) 03/13/2022 15:17 EDT Propoxyphene, Urine AUNEG 03/13/2022 15:17 EDT Alcohol <3 mg/dL 03/13/2022 14:11 EDT Electronically signed by [facility] Conversion Drafting Teacher [employer] at 10/10/2022 4:08 PM CDT documented in this encounter Plan of Treatment Not on file documented as of this encounter Visit Diagnoses Not on filedocumented in this encounter Care Teams Supervisor Slate Splitting Relationship Specialty Start Date End Date Merlin Egan MD [address] [place] [address] [place] [address] PCP - General Family Medicine 04/18/22 12/12/23 Aj Valentine MD [address] [place] [address] PCP - General Adolescent Medicine 12/13/23 11/02/24 Tim Rey MD [address] [place] [address] PCP - General Family Medicine 11/03/24 documented as of this encounter
--- OUTSIDE RECORDS SUMMARY | 2024-12-01 16:44 | XMS_ITS | Encounter Summary ---
Author Organization [facility] In [employer] Address [address] [place] [address] Care Team Providers Care Lock Tender Name Role Phone Merlin Egan MD Primary Care Provider + [phone] Aj Valentine MD Primary Care Provider + [phone] Tim Rey MD Primary Care Provider + [phone] Encounter Details Date Type Department Care Team (Late st Contact Info) Description 03/14/2022 Transcribed Document [facility] [place] Family Medicine [address] [place] [address] ProviderRocael MD [address] [place] [address] Social History Tobacco Use Types Packs/Day Years Used Date Smoking Tobacco: Never Assessed Sex and Gender Information Value Date Recorded Sex Assigned at Not on file Legal Sex Male 11:25 AM CDT Gender Identity Not on file Sexual Orientation Not on file documented as of this encounter Miscellaneous Notes * Cerner Conversion Note - Historical ProviderMD - 03/14/2022 5:53 PM CDT Patient: BRANDON DAVE Age: 46 Years Sex: Male : 1975 *Operation 1. Cystoscopy with left ureteral stent placement 2. Fluoroscopy, supervision and interpretation Indication for Surgery 46-year-old male with a history of urolithiasis. He underwent right ESWL around 5 years ago. He was transferred from [facility] with a 9 mm left UPJ stone and bilateral renal stones up to 10 mm. He started Levaquin. He continues to have of left renal colic and opts for cystoscopy with left stent placement. *Preoperative Diagnosis Left ureteral and renal stones *Postoperative Diagnosis Left ureteral and renal stone *Surgeon(s) Primary Surgeon Aj Gotti MD *Procedure Narrative After informed consent, the patient was taken to the operating room in stable condition. Anesthesia was induced without complications. He was placed in a lithotomy position. The genitalia and groins were prepped and draped. A timeout was taken to identify the correct patient and procedure and side. A 22 Honduran cystoscope was placed per urethra into the bladder. Inspection revealed a normal urethra, small prostate, and normal bladder. A 0.035 hydrophilic guidewire was inserted into the left ureter and advanced up to the level of the kidney under fluoroscopy guidance. There was mild resistance in the proximal ureter. A 6 Honduran by 24 cm double-J indwelling ureteral stent was passed over the wire and up to the level of the kidney under fluoroscopy guidance without difficulty. The wire was removed and there was good curl in the kidney and in the bladder. The strings had been removed. The bladder was drained. The scope was removed. Lidocaine jelly was placed per urethra. He was awakened from anesthesia and taken recovery room in satisfactory condition. Disposition He will go to the PACU and returned to the floor for routine postoperative care. He may be discharged home when stable. I will arrange lithotripsy outpatient. Drains/Packs Used Left ureteral stent 6 Honduran by 24 cm, strings removed Anesthesia General *Estimated Blood Loss None *Findings Normal urethra, prostate, and bladder. There was proper placement of the left stent. *Specimen(s) None Complications None Date of Service 03/14/2022 documented in this encounter Plan of Treatment Not on file documented as of this encounter Visit Diagnoses Not on filedocumented in this encounter Care Teams Lock Tender Relationship Specialty Start Date End Date Merlin Egan MD [address] [place], [place] [id number] PCP - General Family Medicine 04/18/22 12/12/23 Aj Valentine MD [address] [place] [address] PCP - General Adolescent Medicine 12/13/23 11/02/24 Tim Rey MD [address] [place] [address] PCP - General Family Medicine 11/03/24 documented as of this encounter
[2024-12-01] MEDS: diazePAM 10MG/2ML SYRINGE 2 MG IV (16:45)
--- OUTSIDE RECORDS SUMMARY | 2024-12-01 16:45 | XMS_ITS | Encounter Summary ---
Author Organization [facility] [employer] Address [address] [place] [address] Care Team Providers Care Negative Stripper Name Role Phone Merlin Egan MD Primary Care Provider + [phone] Aj Valentine MD Primary Care Provider + [phone] Tim Rey MD Primary Care Provider + [phone] Encounter Details Date Type Department Care Team (Late st Contact Info) Description 03/14/2022 Transcribed Document [facility] [place] [address] [place] [address] ProviderRocael MD [address] [place] [address] Social History Tobacco Use Types Packs/Day Years Used Date Smoking Tobacco: Never Assessed Sex and Gender Information Value Date Recorded Sex Assigned at Not on file Legal Sex Male 11:25 AM CDT Gender Identity Not on file Sexual Orientation Not on file documented as of this encounter Miscellaneous Notes * Cerner Conversion Note - Historical ProviderMD - 03/14/2022 4:37 PM CDT Initial Discharge Planning Entered On: 03/14/2022 16:43 EDT Performed On: 03/14/2022 16:37 EDT by Sil Pierre RN Initial Assessment I Previously Documented Living Environment : No qualifying data available. Living Situation : Home with home health Patient Lives With : Significant other(s) Is the Patient a Caregiver at Home? : No Emergency Contact #1 : Hazel Bellamy Emergency Contact #1 Emergency Contact #1 Relationship : mom Emergency Contact #2 : none Emergency Contact #2 Phone Number : none Emergency Contact #2 Relationship : none Was Referral made to PCP? : No Does Patient have PCP Listed? : No Legal Guardian : No Is Guardianship Needed : No Sil Pierre RN - 03/14/2022 16:37 EDT Initial Assessment II Sensory and Motor Deficits : None Current Home Treatments and Equipment : None Services and Community Resources : Other: noen Does the Patient have a Floor to SNF Benefit? : No Sil Pierre RN - 03/14/2022 16:37 EDT Discharge Needs I Anticipated Discharge Date : 03/16/2022 EDT Anticipated Discharge To, CM : Home with family care Current Home Treatment/Equipment : Current Home Treatment/Equipment No qualifying data available. Post Acute/Home Treatments : None Documentation Status Complete : Yes Sil Pierre RN - 03/14/2022 16:37 EDT Discharge Needs II Professional Skilled Services : Professional Skilled Services No qualifying data available. Services and Community Resources : Other: none Needs Assistance with Transportation : No Discharge Options Discussed with Patient : Other: chart review Patient Discharge Goal : Home Sil Pierre RN - 03/14/2022 16:37 EDT Narrative Note Narrative Note : 46yo male admitted from the ER 2-3 day hx of chest pain and left flank pain. THe pt with hx of ETOH and drug abuse. Nursing assessing CIWAS. THe pt was found to have a 9mm kidney stone and Dr. Flower took the pt for stone extraction. Per Dr. Mojica the pt interested in OLOP for cessation assistance. CM attempted to speek with the pt x2 and was unavalible. Per chart review the pt lives at home with his s/o and is iADL with no DME, HH, or rehab needs. The pts mom to transport when medically ready. CM will continue to follow. Plan: Anticipate DC with OLOP consult and recs. INP. Mod. Sil Pierre RN - 03/14/2022 16:37 EDT documented in this encounter Plan of Treatment Not on file documented as of this encounter Visit Diagnoses Not on filedocumented in this encounter Care Teams Negative Stripper Relationship Specialty Start Date End Date Merlin Egan MD [address] [facility] [place] [address] PCP - General Family Medicine 04/18/22 12/12/23 Aj Valentine MD [address] [facility] [address] [place] [address] PCP - General Adolescent Medicine 12/13/23 11/02/24 Tim Rey MD [address] [facility] [address] [place] [address] PCP - General Family Medicine 11/03/24 documented as of this encounter
--- OUTSIDE RECORDS SUMMARY | 2024-12-01 16:45 | XMS_ITS | Encounter Summary ---
Author Organization [facility] In [employer] Address [address] [place] [address] Care Team Providers Care Varnisher Apprentice Name Role Phone Merlin Egan MD Primary Care Provider + [phone] Aj Valentine MD Primary Care Provider + [phone] Tim Rey MD Primary Care Provider + [phone] Encounter Details Date Type Department Care Team (Late st Contact Info) Description 03/14/2022 Transcribed Document [facility] [place] [address] [place] [address] ProviderRocael MD [address] [place] [address] Social History Tobacco Use Types Packs/Day Years Used Date Smoking Tobacco: Never Assessed Sex and Gender Information Value Date Recorded Sex Assigned at Not on file Legal Sex Male 11:25 AM CDT Gender Identity Not on file Sexual Orientation Not on file documented as of this encounter Miscellaneous Notes * Cerner Conversion Note - Historical ProviderMD - 03/14/2022 4:43 PM CDT On Going Discharge Planning Entered On: 03/14/2022 16:43 EDT Performed On: 03/14/2022 16:43 EDT by Sil Pierre RN Care Management Progress Note Discharge Arrangements : Patient Post-Acute Information Patient Name: BRANDON DAVE Gender: Male : [birth year] Age: 46 Years No Post-Acute Placement(s) Listed No Post-Acute Service(s) Listed No [place] Referral(s) Listed Discharge Options Discussed with Patient : Other: chart review Barriers to Discharge Identified : Clinical Condition of Patient Barriers to Discharge Unresolved : Clinical Condition of Patient Patient Discharge Goal : Home Patient Offered Choice/Affiliations Explained : No Designation of Choice Signed : No List/Info Provided Pt/Fam/Support Person : Other: none Were Referrals Sent to Post Acute Providers : No [facility] Quality Web Info Shared w Pt/Fam : No Does the Patient have a Floor to SNF Benefit? : No Referral Indicators For Complex SWK Interventions : Other: none Is the Patient Meeting Medical Necessity : Yes Physician Agreeable to Move Forward with D/C Plan? : Yes Did you Attend Multidisciplinary Rounds? : Yes Sil Pierre RN - 03/14/2022 16:43 EDT Narrative Progress Note Narrative Progress Note : 46yo male admitted from the [...] INP. Mod. Sil Pierre RN - 03/14/2022 16:43 EDT documented in this encounter Plan of Treatment Not on file documented as of this encounter Visit Diagnoses Not on filedocumented in this encounter Care Teams Varnisher Apprentice Relationship Specialty Start Date End Date Merlin Egan MD [address] [place] [address] PCP - General Family Medicine 04/18/22 12/12/23 Aj Valentine MD [address] [place] [address] PCP - General Adolescent Medicine 12/13/23 11/02/24 Tim Rey MD [address] [place] [address] PCP - General Family Medicine 11/03/24 documented as of this encounter
--- OUTSIDE RECORDS SUMMARY | 2024-12-01 16:45 | XMS_ITS | Encounter Summary ---
Author Organization [facility] In iatives Address [address] [place] [address] Care Team Providers Care Chain Splitter Name Role Phone Merlin Egan MD Primary Care Provider + [phone] Aj Valentine MD Primary Care Provider + [phone] Tim Rey MD Primary Care Provider + [phone] Encounter Details Date Type Department Care Team (Late st Contact Info) Description 03/15/2022 Transcribed Document [facility] [place] Family Medicine [address] [place] [address] ProviderRocael MD [address] [place] [address] Social History Tobacco Use Types Packs/Day Years Used Date Smoking Tobacco: Never Assessed Sex and Gender Information Value Date Recorded Sex Assigned at Not on file Legal Sex Male 11:25 AM CDT Gender Identity Not on file Sexual Orientation Not on file documented as of this encounter Miscellaneous Notes * Cerner Conversion Note - Historical ProviderMD - 03/15/2022 12:04 PM CDT Patient: BRANDON DAVE Age: 46 Years Sex: Male : 1975 Admit Date 03/13/2022 12:32 Discharge Date No Discharge Date on Record Primary Care Provider PHY, UNKNOWN Discharge Diagnosis Urolithiasis 03/15/2022 N20.9 ICD-10-CM HTN (hypertension) 03/15/2022 I10 ICD-10-CM UTI (urinary tract infection) 03/15/2022 N39.0 ICD-10-CM Electrolyte disorder 03/15/2022 E87.8 ICD-10-CM Alcohol use 03/15/2022 Z72.89 ICD-10-CM Elevated bilirubin 03/15/2022 R17 ICD-10-CM Substance abuse 03/15/2022 F19.10 ICD-10-CM Procedures SN - Proc - Procedure: Cystoscopy Stent Insertion (03/14/22 18:01:30) Hospital Course Patient is a 46-year-old male who was admitted on 03/13 with abdominal and flank pain. Diagnosed with urolithiasis and a UTI. Started on Levaquin and urology consulted. He underwent cystoscopy with left stent placement on 03/14. Pain improved. Admitting physician was concern for some chest pain and cardiology was consulted. However, most likely this pain was referred from the left flank. Cardiology did evaluate but no further recommendations at this time, only to consider outpatient cardiac work-up due to risks. He had elevated blood pressure throughout his stay and I have started him on HCTZ. Patient with substance abuse including alcohol, cocaine, amphetamines. [facility] is evaluating prior to discharge home. He had an elevated bilirubin but he denies right upper quadrant pain and this normalized prior to discharge. Patient should follow-up with urology Vital Signs T: 36.6 ??C TMIN: 36.4 ??C TMAX: 36.8 ??C HR: 80(Monitored) RR: 16 BP: 142/93 SpO2: 97% Oxygen Settings (Last) Oxygen Therapy Mode: Room air (03/15/22 09:00:00) Physical Exam General: Alert, well nourished, no acute distress Neurologic: Moves all 4 extremities spontaneously, oriented X3, no focal deficits appreciated Eye: pupils equal, EOMI, normal conjunctiva HENT: Normocephalic, normal hearing, moist oral mucosa Neck: Supple, non-tender Lungs: Clear to auscultation, non-labored respiration, no crackles, no wheeze Heart: Normal rate, regular rhythm, no murmur, no edema Abdomen: Soft, non-tender, non-distended, normal bowel sounds Musculoskeletal: No obvious deformity, no tenderness Skin: warm, dry, no rashes or lesions Psychiatric: Cooperative, appropriate mood and affect Discharge Disposition Home Discharge Follow Up AJ HALL MD-URO - Within 1 to 2 weeks PHY, UNKNOWN - Within 2 to 3 days Discharge Medications (11) Active CeleXA 20 mg oral tablet 20 mg = 1 Tab, Oral, Daily Flomax 0.4 mg oral capsule 0.4 mg = 1 Cap, Oral, Daily folic acid 1 mg oral tablet 1 mg = 1 Tab, Oral, Daily hydroCHLOROthiazide 25 mg oral tablet 25 mg = 1 Tab, Oral, Daily hydrOXYzine hydrochloride 50 mg oral tablet 50 mg = 1 Tab, PRN, Oral, Q6H Levaquin 750 mg oral tablet 750 mg = 1 Tab, Oral, Y76SEfl naproxen 500 mg oral tablet 500 mg = 1 Tab, PRN, Oral, BID phenazopyridine 95 mg oral tablet 95 mg = 1 Tab, PRN, Oral, TID Protonix 20 mg oral delayed release tablet 20 mg = 1 Tab, Oral, BID Suboxone 8 mg-2 mg sublingual film 1 Each, SubLINgual, BID Zofran 4 mg oral tablet 4 mg = 1 Tab, PRN, Oral, Q8H Code Status Start: 03/13/22 12:47:00 EDT, Full Code, Continuous Order Condition on Discharge Stable Consulting Physicians AJ HALL MD-URO - kidney stones ZEINAB DAWSON MD-[place] [facility] Current Diet Order Diet, Adult - Ordered -- Start: 03/14/22 18:03:00 EDT, Regular Diet, Isolation: Standard Precautions Patient Discharge Summary Orders Discharge Activity: Discharge Activity: Activity as tolerated Diet: Discharge Diet: Resume usual diet as tolerated Pending Labs Ordered BMP Basic Metabolic Panel Specimen Type: Blood, AM Draw collect, 03/14/22 4:00:00 EDT, Daily, Lab Collect Magnesium Level Specimen Type: Blood, AM Draw collect, 03/14/22 4:00:00 EDT, Daily, Lab Collect Phosphorus Level Specimen Type: Blood, AM Draw collect, 03/14/22 4:00:00 EDT, Daily, Lab Collect Calcium Level Specimen Type: Blood, AM Draw collect, 03/14/22 4:00:00 EDT, Daily, Lab Collect Platelet Count Specimen Type: Blood, Routine collect, 03/15/22 12:47:00 EDT, Q48H, Lab Collect Preliminary Culture Urine Specimen Type: Urine, Catherized, Routine collect, Collected, 03/13/22 15:17:00 EDT, 1-Time, Stop: 03/13/22 15:17:00 EDT, Nurse Collect Culture Blood Specimen Type: Blood, Stat collect, 03/13/22 12:47:00 EDT, 1-Time, Stop: 03/13/22 12:47:00 EDT, Lab Collect Culture Blood Specimen Type: Blood, Timed Study collect, 03/13/22 13:02:00 EDT, 1-Time, Stop: 03/13/22 13:02:00 EDT, Lab Collect Time Spent on Discharge >35 min was spent on discharging patient including time spent discussing plan with patient, case management, and nursing staff. Also answering all patients questions and educating on new medications. documented in this encounter Plan of Treatment Not on file documented as of this encounter Visit Diagnoses Not on filedocumented in this encounter Care Teams Chain Splitter Relationship Specialty Start Date End Date Merlin Egan MD [address] [place] [address] [place] [address] PCP - General Family Medicine 04/18/22 12/12/23 Aj Valentine MD [address] [facility] [address] [place] [address] PCP - General Adolescent Medicine 12/13/23 11/02/24 Tim Rey MD [address] [facility] [address] [place] [address] PCP - General Family Medicine 11/03/24 documented as of this encounter
--- OUTSIDE RECORDS SUMMARY | 2024-12-01 16:45 | XMS_ITS | Encounter Summary ---
Author Organization [facility] In iatives Address [address] [place] [address] Care Team Providers Care Provider Enrollment Specialist Name Role Phone Merlin Egan MD Primary Care Provider + [phone] Aj Valentine MD Primary Care Provider + [phone] Tim Rey MD Primary Care Provider + [phone] Encounter Details Date Type Department Care Team (Late st Contact Info) Description 03/14/2022 Transcribed Document [facility] [place] Family Medicine [address] [place] [address] ProviderRocael MD [address] [place] [address] Social History Tobacco Use Types Packs/Day Years Used Date Smoking Tobacco: Never Assessed Sex and Gender Information Value Date Recorded Sex Assigned at Not on file Legal Sex Male 11:25 AM CDT Gender Identity Not on file Sexual Orientation Not on file documented as of this encounter Miscellaneous Notes * Cerner Conversion Note - Historical ProviderMD - 03/14/2022 4:00 AM CDT Height and Weight, Routine Entered On: 03/14/2022 6:41 EDT Performed On: 03/14/2022 4:00 EDT by Maggie Thomas RN Height and Weight, Routine Routine Weight Source : Standing scale Routine Weight Entry Format : [place] Routine Weight, Pounds : 132 lb Routine Weight Calculation : 60 kg Height Source : Chart Height Entry Format : [place] Height, Feet : 5 ft Height, Inches : 8 Inch Clinical Height : 172.72 cm Body Surface Area (BSA), Routine : 1.71 m2 Body Mass Index (BMI), Routine : 20.11 kg/m2 Maggie Thomas RN - 03/14/2022 6:41 EDT Electronically signed by [facility], [facility] Conversion Sales Expert Home Theater Cerner at 10/10/2022 4:15 PM CDT documented in this encounter Plan of Treatment Not on file documented as of this encounter Visit Diagnoses Not on filedocumented in this encounter Care Teams Provider Enrollment Specialist Relationship Specialty Start Date End Date Merlin Egan MD [address] [place] [address] PCP - General Family Medicine 04/18/22 12/12/23 Aj Valentine MD [address] [place] [address] PCP - General Adolescent Medicine 12/13/23 11/02/24 Tim Rey MD [address] [place] [address] PCP - General Family Medicine 11/03/24 documented as of this encounter
--- OUTSIDE RECORDS SUMMARY | 2024-12-01 16:45 | XMS_ITS | Encounter Summary ---
Author Organization [facility] In iatives Address [address] [place] [address] Care Team Providers Care Membership Sales Manager Name Role Phone Merlin Egan MD Primary Care Provider + [phone] Aj Valentine MD Primary Care Provider + [phone] Tim Rey MD Primary Care Provider + [phone] Encounter Details Date Type Department Care Team (Late st Contact Info) Description 03/14/2022 Transcribed Document [facility] [place] Family Medicine [address] [place] [address] ProviderRocael MD [address] [place] [address] Social History Tobacco Use Types Packs/Day Years Used Date Smoking Tobacco: Never Assessed Sex and Gender Information Value Date Recorded Sex Assigned at Not on file Legal Sex Male 11:25 AM CDT Gender Identity Not on file Sexual Orientation Not on file documented as of this encounter Miscellaneous Notes * Cerner Conversion Note - Historical ProviderMD - 03/14/2022 2:00 AM CDT Advertising Layout Worker Details Entered On: 03/14/2022 3:03 EDT Performed On: 03/14/2022 2:00 EDT by Bekah Ardon RN Order Details Transport Mode Order Detail : Wheelchair Isolation Precautions Order Detail : Standard Precautions Order Detail : N/A IV Order Detail : 1 Oxygen Order Detail : 0 Nurse Collect Order Detail : 0 Central Line Order Detail : No Arterial Line : No Patient Needs Meds Crushed/Liquid : No Bekah Ardon, RN - 03/14/2022 3:03 EDT Electronically signed by [facility] Conversion Clinical Laboratory Scientist Cerner at 10/10/2022 4:25 PM CDT documented in this encounter Plan of Treatment Not on file documented as of this encounter Visit Diagnoses Not on filedocumented in this encounter Care Teams Membership Sales Manager Relationship Specialty Start Date End Date Merlin Egan MD [address] [place] [address] PCP - General Family Medicine 04/18/22 12/12/23 Aj Valentine MD [address] [facility] [address] [place] [address] PCP - General Adolescent Medicine 12/13/23 11/02/24 Tim Rey MD [address] [facility] [address] [place] [address] PCP - General Family Medicine 11/03/24 documented as of this encounter
--- OUTSIDE RECORDS SUMMARY | 2024-12-01 16:45 | XMS_ITS | Clinical Summary ---
Author Organization Healthcare Address [facility] [place] [id number] Care Team Providers Care Advertising Director Name Role Phone Julius Anderson Primary Care Provider +[phone] Immunizations Immunization Administration Dates Next Due Hep A, Adult 08/01/2017 Family History Medical History Relation Name Comments Alcohol abuse Father Alcohol abuse Mother Depression Mother Hypertension Mother Relation Name Status Comments Father Mother Social History Tobacco Use Types Packs/Day Years Used Date Smoking Tobacco: Every Day Alcohol Use Standard Drinks/Week Comments Yes 0 (1 standard drink = 0.6 oz pur e alcohol) Sex and Gender Information Value Date Recorded Sex Assigned at Not on file Legal Sex Male 7:32 PM EDT Gender Identity Not on file Sexual Orientation Not on file Last Filed Vital Signs Vital Sign Reading Time Taken Comments Blood Pressure 131/83 08/01/2017 2:29 PM EST Pulse 74 08/01/2017 2:29 PM EST Temperature 36.4 C (97.5 F) 08/01/2017 2:29 PM EST Respiratory Rate - - Oxygen Saturation - - Inhaled Oxygen Concentration - - Weight 67.2 kg (148 lb 2.4 oz) 08/01/2017 2:29 P M EST Height 172.7 cm (5' 8 ) 07/05/2017 11:17 AM EST Body Mass Index 22.53 07/05/2017 11:17 AM EST Plan of Treatment Health Maintenance Due Date Last Done Comments [facility]-Depression Screening 1975 [facility]-Infant/Child/Adol SDOH Screenings 1975 [facility]- SDOH Screenings 1992 [facility]-Adult SDOH Screenings 1992 [facility]-DTaP,Tdap,and Td Vaccine s (1 - Tdap) 1993 [facility]-Hepatitis B Vaccines (1 of 3 - 19+ 3-dose series) 1993 CT Colonography 10/21/2019 Colonoscopy 10/21/2019 FIT-DNA 10/21/2019 FIT 10/21/2019 FOBT 10/21/2019 Sigmoidoscopy 10/21/2019 [facility]-Colorectal Cancer Screening 10/21/2019 PRF-NGGWN-11 Vaccine (1 - 20 24-25 season) 2024 [facility]-Pneumococcal Vaccine: 50 + Years (1 of 1 - PCV) 2024 [facility]-Zoster Vaccines (1 of 2) 2024 [facility]-Influenza Vaccine (Seas[place] n Ended) 2025 [facility]-Hepatitis A Vaccines Aged Out 08/01/2017 No longer eligible based on patient's age to complete this topic HPV Vaccines Aged Out No longer eligi ble based on patient's age to complete this topic [facility]-HIB Vaccines Aged Out No longer e ligible based on patient's age to complete this topic [facility]-IPV Vaccines Aged Out No longer e ligible based on patient's age to complete this topic [facility]-Rotavirus Vaccines Aged Out No lo nger eligible based on patient's age to complete this topic Care Teams Advertising Director Relationship Specialty Start Date [place] [address] PCP - General 11/05/20
--- OUTSIDE RECORDS SUMMARY | 2024-12-01 16:45 | XMS_ITS | Encounter Summary ---
Author Organization [facility] [employer] In iatives Address [address] [place] [address] Care Team Providers Care String Laster Name Role Phone Merlin Egan MD Primary Care Provider + [phone] Aj Valentine MD Primary Care Provider + [phone] Tim Rey MD Primary Care Provider + [phone] Encounter Details Date Type Department Care Team (Late st Contact Info) Description 03/13/2022 Transcribed Document [facility] Family Medicine [address] [place] [address] ProviderRocael MD [address] [place] [address] Social History Tobacco Use Types Packs/Day Years Used Date Smoking Tobacco: Never Assessed Sex and Gender Information Value Date Recorded Sex Assigned at Not on file Legal Sex Male 11:25 AM CDT Gender Identity Not on file Sexual Orientation Not on file documented as of this encounter Miscellaneous Notes * Cerner Conversion Note - Historical ProviderMD - 03/13/2022 1:56 PM CDT Therapy Screen, PT Entered On: 03/13/2022 14:01 EDT Performed On: 03/13/2022 13:56 EDT by OPAL WAKEFIELD PT Therapy Screen, PT Medical Chart Reviewed : Yes Person Providing Information : Nurse, Patient Screen Completed : Yes Recommendation for Evaluation, PT : None Recommendations Upon Discharge : None Additional Therapy Screen Comment : Pt is independent with mobility and does not have skilled PT needs. Chart Review, collaboration with RN, clinical reasoning/decision making time and time required for interviewing pt to complete assessment = ( 9 mins ) OPAL WAKEFIELD, PT - 03/13/2022 14:01 EDT Electronically signed by [facility], [facility] Conversion Ammonia Operator Cerner at 10/10/2022 4:23 PM CDT documented in this encounter Plan of Treatment Not on file documented as of this encounter Visit Diagnoses Not on filedocumented in this encounter Care Teams String Laster Relationship Specialty Start Date End Date Merlin Egan MD [address] [place] [address] [place] [address] PCP - General Family Medicine 04/18/22 12/12/23 Aj Valentine MD [address] [place] [address] PCP - General Adolescent Medicine 12/13/23 11/02/24 Tim Rey MD [address] [place] [address] PCP - General Family Medicine 11/03/24 documented as of this encounter
--- OUTSIDE RECORDS SUMMARY | 2024-12-01 16:45 | XMS_ITS | Encounter Summary ---
Author Organization [facility] In iatives Address [address] [place] [address] Care Team Providers Care Fly Winder Name Role Phone Merlin Egan MD Primary Care Provider + [phone] Aj Valentine MD Primary Care Provider + [phone] Tim Rey MD Primary Care Provider + [phone] Encounter Details Date Type Department Care Team (Late st Contact Info) Description 03/14/2022 Transcribed Document [facility] [place] Family Medicine [address] [place] [address] ProviderRocael MD [address] [place] [address] Social History Tobacco Use Types Packs/Day Years Used Date Smoking Tobacco: Never Assessed Sex and Gender Information Value Date Recorded Sex Assigned at Not on file Legal Sex Male 11:25 AM CDT Gender Identity Not on file Sexual Orientation Not on file documented as of this encounter Miscellaneous Notes * Cerner Conversion Note - Historical ProviderMD - 03/14/2022 12:42 AM CDT Pain Assessment Entered On: 03/14/2022 18:58 EDT Performed On: 03/14/2022 14:28 EDT by Landen Wilson RN-PATIENT CARE BEDSIDE NON-EXEMPT Intervention Information: HYDROmorphone Performed by Landen Wilson RN-PATIENT CARE BEDSIDE NON-EXEMPT on 03/14/2022 13:58:00 EDT HYDROmorphone,0.5mg IV Push,Left Hand,Pain (Severe 7-10) Pain Assessment Pain Assessment : Follow-up assessment Pain Scale Goal : 4 Landne Wilson RN-PATIENT CARE BEDSIDE NON-EXEMPT - 03/14/2022 18:58 EDT Electronically signed by [facility], [facility] Conversion Clinical Project Manager Cerner at 10/15/2022 2:00 PM CDT documented in this encounter Plan of Treatment Not on file documented as of this encounter Visit Diagnoses Not on filedocumented in this encounter Care Teams Fly Winder Relationship Specialty Start Date End Date Merlin Egan MD [address] [place] [address] [place] [address] PCP - General Family Medicine 04/18/22 12/12/23 Aj Valentine MD [address] [place] [address] PCP - General Adolescent Medicine 12/13/23 11/02/24 Tim Rey MD [address] [place] [address] PCP - General Family Medicine 11/03/24 documented as of this encounter
--- OUTSIDE RECORDS SUMMARY | 2024-12-01 16:45 | XMS_ITS | Encounter Summary ---
Author Organization [facility] Address [address] [place] [address] Care Team Providers Care Test Eng Name Role Phone Merlin Egan MD Primary Care Provider + [phone] Aj Valentine MD Primary Care Provider + [phone] Tim Rey MD Primary Care Provider + [phone] Encounter Details Date Type Department Care Team (Late st Contact Info) Description 03/15/2022 Transcribed Document [facility] [address] [place] [id number] ProviderRocael MD [address] [place] [id number] Social History Tobacco Use Types Packs/Day Years Used Date Smoking Tobacco: Never Assessed Sex and Gender Information Value Date Recorded Sex Assigned at Not on file Legal Sex Male 11:25 AM CDT Gender Identity Not on file Sexual Orientation Not on file documented as of this encounter Miscellaneous Notes * Cerner Conversion Note - Historical ProviderMD - 03/15/2022 11:58 AM CDT [address] [address] JU DAVE :1975 Visit Time:03/13/2022 Your Visit Summary Your Care Team Admitting Physician - STELLA WISEMAN MD Attending Physician - MCKENNA YAÑEZ, DO-INT Primary Care Physician - BRIAN, UNKNOWN Referring Physician - BRIAN, SELF REFERRED Your Diagnosis Urolithiasis HTN (hypertension) UTI (urinary tract infection) Substance abuse Alcohol use Elevated bilirubin Electrolyte disorder These Are Your Goals pain relief Patient Discharge Goal Patient Discharge Goal: Home Discharge Vitals Temperature 36.6 ??C Heart Rate (Monitored) 80 Respiratory Rate 16 Blood Pressure 142/93 What to do next Instructions From Your Care Team Discharge Activity: Discharge Activity: Activity as tolerated Diet: Discharge Diet: Resume usual diet as tolerated Follow-Up Appointments Follow Up with AJ HALL MD-URO When Within 1 to 2 weeks Where: [address] [place] [address] [place] [address]- Follow Up with BRIAN, UNKNOWN When Within 2 to 3 days Medications What How Much When Instructions Next Dose folic acid (folic acid 1 mg oral tablet) 1 Tablet(s) Oral Every Day Pickup at [facility] 03/16 9am hydroCHLOROthiazide (hydroCHLOROthiazide 25 mg oral tablet) 1 Tablet(s) Oral Every Day Pickup at [facility] 03/16 9am levoFLOXacin (Levaquin 750 mg oral tablet) 1 Tablet(s) Oral Interval Every 24 Hours Duration: 5 Day(s) Pickup at [facility] 03/16 3PM ondansetron (Zofran 4 mg oral tablet) 1 Tablet(s) Oral Every 8 Hours as needed for Nausea/Vomiting Duration: 3 Day(s) Pickup at [facility] as needed phenazopyridine (phenazopyridine 95 mg oral tablet) 1 Tablet(s) Oral Three Times A Day as needed for Pain Duration: 2 Day(s) Pickup at [facility]ending [facility] To [facility] NEEDED buprenorphine-naloxone (Suboxone 8 mg-2 mg sublingual film) 1 Each SubLINgual Two Times A Day 03/15 6pm citalopram (CeleXA 20 mg oral tablet) 1 Tablet(s) Oral Every Day 03/15 9am hydrOXYzine (hydrOXYzine hydrochloride 50 mg oral tablet) 1 Tablet(s) Oral Every 6 Hours as needed for for anxiety as needed naproxen (naproxen 500 mg oral tablet) 1 Tablet(s) Oral Two Times A Day as needed for for pain as needed pantoprazole (Protonix 20 mg oral delayed release tablet) 1 Tablet(s) Oral Two Times A Day 03/15 9pm tamsulosin (Flomax 0.4 mg oral capsule) 1 Capsule(s) Oral Every Day 03/16 9pm Pharmacy Information [facility]: [id number] [address] [address] [place] [phone] Take your medications faithfully. Do NOT skip medication. Do NOT stop taking medications without the direction of a physician. Carry a list of your medications with you at all times, and take this medication list with you to your first follow up visit. Report any side effects. Avoid herbal remedies unless discussed with your physician. As part of your treatment plan, your physician may have prescribed a limited course of a controlled substance. This medication may be given to help people with moderate or severe pain or for other medical conditions, but there are risks involved with treatment. Common side effects may include nausea, constipation, drowsiness, sweating, itching, dry mouth, and rash. More serious side effects may include cognitive and motor impairment, like problems with thinking, concentrating, alertness, and movement (e.g. slowed reflexes), and driving and operating heavy machinery can be dangerous. It is important for you to talk to your physician if you have these side effects or questions. These controlled substances can produce physical dependence and be habit-forming if taken for an extended period of time, which means that the body has gotten used to them and may experience withdrawal symptoms if they are abruptly stopped. Withdrawal symptoms can include runny nose, sweating, goose bumps, diarrhea, abdominal cramping, rapid heartbeat, difficulty sleeping, and nervousness. Please dispose of unused and medications per your retail pharmacy guidance. Allergies aspirin piperacillin-tazobactam Immunizations This Visit No Immunizations Found Education Materials Finding Treatment for Addiction Addiction is a complex disease of the brain that causes an uncontrollable (compulsive) need for: ??? A substance. This includes alcohol, illegal drugs, or prescription medicines, such as painkillers. ??? An activity or behavior, such as gambling or shopping. Addiction changes the way your brain works. Because of this change: ??? The need for the medicine, drug, or activity can become so strong that you think about it all the time. ??? Getting more and more of your addiction becomes the most important thing to you. ??? You may find yourself leaving other activities and relationships to pursue your addiction. ??? You can become physically dependent on a substance. ??? Your health, behavior, emotions, and relationships can change for the worse. How do I know if I need treatment for addiction? Addiction is a progressive disease. Without treatment, addiction can get worse. Living with addiction puts you at higher risk for injury, poor health, loss of employment, loss of money, and even . You might need treatment for addiction if: ??? You have tried to stop or cut down, but you have not succeeded. ??? You find it annoying that your friends and family are concerned about your use or behavior. ??? You feel guilty about your use or behavior. ??? You need a particular substance or activity to start your day or to calm down. ??? You are running out of money because of your addiction. ??? You have done something illegal to support your addiction. ??? Your addiction has caused you: ? Health problems. ? Trouble in school, work, home, or with the police. ? To devote all your time to your addiction, and not to other responsibilities. ? To tell lies in order to hide your problem. What types of treatment are available? There may be options for treatment programs and plans based on your addiction, condition, needs, and preferences. No single treatment is right for everyone. ??? Treatment programs can be: ? Outpatient. You live at home and go to work or school, but you go to a clinic for treatment. ? Inpatient. You live and sleep at the program facility during treatment. ??? Programs may include: ? Medicine. You may need medicine to treat the addiction itself, or to treat anxiety or depression. ? Counseling and behavior therapy. This can help individuals and families behave in healthier ways and relate more effectively. ? Support groups. Confidential group therapy, such as a 12-step program, can help individuals and families during treatment and recovery. ? A combination of education, counseling, and a 12-step, spirituality-based approach. What should I consider when selecting a treatment program? Think about your individual requirements when selecting a treatment program. Ask about: ??? The overall approach to treatment. ? Some programs are strictly 12-step programs. Some have a more flexible approach. ? Programs may differ in length of stay, setting, and size. ? Some programs include your family in your treatment plan. Support may be offered to them throughout the treatment process, as well as instructions for them when you are discharged. ? You may continue to receive support after you have left the program. ??? The types of medical services that are offered. Find out if the program: ? Offers specific treatment for your particular addiction. ? Meets all of your needs, including physical and cultural needs. ? Includes any medicines you might need. ? Offers mental health counseling as part of your treatment. ? Offers the 12-step meetings at the center, or if transport is available for patients to attend meetings at other locations. ??? The cost and types of insurance that are accepted. ? Some programs are sponsored by the government. They support patients who do not have private insurance. ? If you do not have insurance, or if you choose to attend a program that does not accept your insurance, call the treatment center. Tell them your financial needs and whether a payment plan can be set up. ? There are also organizations that will help you find the resources for treatment. You can find them online by searching treatment for addiction. ??? If the program is certified by the appropriate government agency. Where to find support ??? Your health care provider can help you to find the right treatment. These discussions are confidential. ??? The National [place] on Alcoholism and Drug Dependence (NCADD). This group has information about treatment centers and programs for people who have an addiction and for family members. ? Call: 6-220-BLV-CALL ( ). ? Visit the website: https://www.ncadd.org/ ??? The Substance Abuse and Mental Health Services Administration (SAMHSA). This organization will help you find publicly funded treatment centers, help hotlines, and counseling services near you. ? Call: 5-850-229-HELP ( ). ? Visit the website: www.findtreatment.samhsa.gov ??? The National Problem Gambling Helpline. This is a 24-hour confidential helpline for gambling addiction. ? Call: ? Visit the website: https://www.Deal.com.sg.org/ In countries outside of the [place] and [place], look in local directories for contact information for services in your area. Follow these instructions at home: ??? Find supportive people who will help you stay away from your addiction and stay sober. ??? Do not use the substance or engage in the activity. ??? If you have been through treatment: ? Follow your plan. The plan is usually developed by you and your health care provider during treatment. ? Go to meetings with other people in recovery. ? Avoid people, situations, and things that lead you to do the things you are addicted to (triggers). Summary ??? Addiction changes the way your brain works. These changes cause a desire to repeat and increase the use of the substance or behavior. ??? Addiction is a progressive disease. Without treatment, addiction can get worse. Living with addiction puts you at higher risk for injury, poor health, loss of employment, loss of money, and even . ??? There may be options for treatment programs and plans based on your addiction, condition, needs, and preferences. No single treatment is right for everyone. ??? Your health care provider can help you to find the right treatment. These discussions are confidential. This information is not intended to replace advice given to you by your health care provider. Make sure you discuss any questions you have with your health care provider. Document Revised: 06/09/2021 Document Reviewed: 07/10/2018 [employer] Patient Education ?? 2021 [employer] Kidney Stones Kidney stones are rock-like masses that form inside of the kidneys. Kidneys are organs that make pee (urine). A kidney stone may move into other parts of the urinary tract, including: ??? The tubes that connect the kidneys to the bladder (ureters). ??? The bladder. ??? The tube that carries urine out of the body (urethra). Kidney stones can cause very bad pain and can block the flow of pee. The stone usually leaves your body (passes) through your pee. You may need to have a doctor take out the stone. What are the causes? Kidney stones may be caused by: ??? A condition in which certain glands make too much parathyroid hormone (primary hyperparathyroidism). ??? A buildup of a type of crystals in the bladder made of a chemical called uric acid. The body makes uric acid when you eat certain foods. ??? Narrowing (stricture) of one or both of the ureters. ??? A kidney blockage that you were born with. ??? Past surgery on the kidney or the ureters, such as gastric bypass surgery. What increases the risk? You are more likely to develop this condition if: ??? You have had a kidney stone in the past. ??? You have a family history of kidney stones. ??? You do not drink enough water. ??? You eat a diet that is high in protein, salt (sodium), or sugar. ??? You are overweight or very overweight (obese). What are the signs or symptoms? Symptoms of a kidney stone may include: ??? Pain in the side of the belly, right below the ribs (flank pain). Pain usually spreads (radiates) to the groin. ??? Needing to pee often or right away (urgently). ??? Pain when going pee (urinating). ??? Blood in your pee (hematuria). ??? Feeling like you may vomit (nauseous). ??? Vomiting. ??? Fever and chills. How is this treated? Treatment depends on the size, location, and makeup of the kidney stones. The stones will often pass out of the body through peeing. You may need to: ??? Drink more fluid to help pass the stone. In some cases, you may be given fluids through an IV tube put into one of your veins at the hospital. ??? Take medicine for pain. ??? Make changes in your diet to help keep kidney stones from coming back. Sometimes, medical procedures are needed to remove a kidney stone. This may involve: ??? A procedure to break up kidney stones using a beam of light (laser) or shock waves. ??? Surgery to remove the kidney stones. Follow these instructions at home: Medicines ??? Take oqik-qlr-riwsgin and prescription medicines only as told by your doctor. ??? Ask your doctor if the medicine prescribed to you requires you to avoid driving or using heavy machinery. Eating and drinking ??? Drink enough fluid to keep your pee pale yellow. You may be told to drink at least 8???10 glasses of water each day. This will help you pass the stone. ??? If told by your doctor, change your diet. This may include: ? Limiting how much salt you eat. ? Eating more fruits and vegetables. ? Limiting how much meat, poultry, fish, and eggs you eat. ??? Follow instructions from your doctor about eating or drinking restrictions. General instructions ??? Collect pee samples as told by your doctor. You may need to collect a pee sample: ? 24 hours after a stone comes out. ? 8???12 weeks after a stone comes out, and every 6???12 months after that. ??? Strain your pee every time you pee (urinate), for as long as told. Use the strainer that your doctor recommends. ??? Do not throw out the stone. Keep it so that it can be tested by your doctor. ??? Keep all follow-up visits as told by your doctor. This is important. You may need follow-up tests. How is this prevented? To prevent another kidney stone: ??? Drink enough fluid to keep your pee pale yellow. This is the best way to prevent kidney stones. ??? Eat healthy foods. ??? Avoid certain foods as told by your doctor. You may be told to eat less protein. ??? Stay at a healthy weight. Where to find more information ??? National Kidney Foundation (NKF): www.kidney.org ??? Urology Care Foundation (UCF): www.urologyhealth.org Contact a doctor if: ??? You have pain that gets worse or does not get better with medicine. Get help right away if: ??? You have a fever or chills. ??? You get very bad pain. ??? You get new pain in your belly (abdomen). ??? You pass out (faint). ??? You cannot pee. Summary ??? Kidney stones are rock-like masses that form inside of the kidneys. ??? Kidney stones can cause very bad pain and can block the flow of pee. ??? The stones will often pass out of the body through peeing. ??? Drink enough fluid to keep your pee pale yellow. This information is not intended to replace advice given to you by your health care provider. Make sure you discuss any questions you have with your health care provider. Document Revised: 10/24/2019 Document Reviewed: 10/28/2019 [employer] Patient Education ?? 2021 [employer]. phenazopyridine (fen AY sonali PIR i shelby) AZO Urinary Pain Relief, Azo-Gesic, Azo-Standard, Baridium, Prodium, Pyridium, Re-Azo, Uricalm What is the most important information I should know about phenazopyridine? You should not use phenazopyridine if you have kidney disease. What is phenazopyridine? Phenazopyridine is a pain reliever that affects the lower part of your urinary tract (bladder and urethra). Phenazopyridine is used to treat urinary symptoms such as pain or burning, increased urination, and increased urge to urinate. These symptoms can be caused by infection, injury, surgery, catheter, or other conditions that irritate the bladder. Phenazopyridine will treat urinary symptoms, but this medication will not treat a urinary tract infection.. Take any antibiotic that your doctor prescribes to treat an infection. Phenazopyridine may also be used for purposes not listed in this medication guide. What should I discuss with my health care provider before taking phenazopyridine? You should not use phenazopyridine if you are allergic to it, or if you have kidney disease. To make sure phenazopyridine is safe for you, tell your doctor if you have: ?? liver disease; ?? diabetes; or ?? a genetic enzyme deficiency called dejzrep-6-drovobfto dehydrogenase (G6PD) deficiency. FDA category B. Phenazopyridine is not expected to harm an unborn baby. Do not use this medicine without a doctor's advice if you are . It is not known whether phenazopyridine passes into breast milk or if it could harm a nursing baby. Do not use this medicine without a doctor's advice if you are breast-feeding a baby. How should I take phenazopyridine? Use exactly as directed on the label, or as prescribed by your doctor. Do not use in larger or smaller amounts or for longer than recommended. Take phenazopyridine after meals. Drink plenty of liquids while you are taking phenazopyridine. Phenazopyridine will most likely darken the color of your urine to an orange or red color. This is a normal effect and is not harmful. Darkened urine may also cause stains to your underwear that may be permanent. Phenazopyridine can also permanently stain soft contact lenses, and you should not wear them while taking this medicine. Do not use phenazopyridine for longer than 2 days unless your doctor has told you to. This medication can cause unusual results with urine tests. Tell any doctor who treats you that you are using phenazopyridine. Store at room temperature away from moisture and heat. What happens if I miss a dose? Take the missed dose as soon as you remember. Skip the missed dose if it is almost time for your next scheduled dose. Do not take extra medicine to make up the missed dose. What happens if I overdose? Seek emergency medical attention or call the Poison Help line at . What should I avoid while taking phenazopyridine? Do not use this medication while wearing soft contact lenses. Phenazopyridine can permanently discolor soft contact lenses. What are the possible side effects of phenazopyridine? Get emergency medical help if you have any of these signs of an allergic reaction: hives; difficult breathing; swelling of your face, lips, tongue, or throat. Stop using phenazopyridine and call your doctor at once if you have: ?? little or no urinating; ?? swelling, rapid weight gain; ?? confusion, loss of appetite, pain in your side or lower back; ?? fever, pale or yellowed skin, stomach pain, nausea and vomiting; or ?? blue or purple appearance of your skin. Common side effects may include: ?? headache; ?? dizziness; or ?? upset stomach. This is not a complete list of side effects and others may occur. Call your doctor for medical advice about side effects. You may report side effects to FDA at 7-204-WDV-9338. What other drugs will affect phenazopyridine? Other drugs may interact with phenazopyridine, including prescription and etdr-pjh-jgrcujm medicines, vitamins, and herbal products. Tell each of your health care providers about all medicines you use now and any medicine you start or stop using. Where can I get more information? Your pharmacist can provide more information about phenazopyridine. Remember, keep this and all other medicines out of the reach of children, never share your medicines with others, and use this medication only for the indication prescribed. Every effort has been made to ensure that the information provided by [employer]') is accurate, up-to-date, and complete, but no guarantee is made to that effect. Drug information contained herein may be time sensitive. [employer] information has been compiled for use by healthcare practitioners and consumers in the [place] and therefore [employer] does not warrant that uses outside of the [place] are appropriate, unless specifically indicated otherwise. [employer] drug information does not endorse drugs, diagnose patients or recommend therapy. [employer] drug information is an informational resource designed to assist licensed healthcare practitioners in caring for their patients and/or to serve consumers viewing this service as a supplement to, and not a substitute for, the expertise, skill, knowledge and judgment of healthcare practitioners. The absence of a warning for a given drug or drug combination in no way should be construed to indicate that the drug or drug combination is safe, effective or appropriate for any given patient. [employer] does not assume any responsibility for any aspect of healthcare administered with the aid of information [employer] provides. The information contained herein is not intended to cover all possible uses, directions, precautions, warnings, drug interactions, allergic reactions, or adverse effects. If you have questions about the drugs you are taking, check with your doctor, nurse or pharmacist. Copyright 3531-3774 [employer]. Version: 3.05. Revision Date: 10/16/2013. folic acid (oral/injection) (FOE lik id) [id number], [id number] What is the most important information I should know about folic acid? Use only as directed. Tell your doctor if you use other medicines or have other medical conditions or allergies. What is folic acid? Folic acid is a type of B vitamin that is normally found in foods such as dried beans, peas, lentils, oranges, whole-wheat products, liver, asparagus, beets, broccoli, brussels sprouts, and spinach. Folic acid helps your body produce and maintain new cells, and also helps prevent changes to DNA that may lead to cancer. As a medication, folic acid is used to treat folic acid deficiency and certain types of anemia (lack of red blood cells) caused by folic acid deficiency. Folic acid is sometimes used with other medications to treat pernicious anemia. Folic acid used alone will not treat pernicious anemia and other anemias not related to Vitamin B12 deficiency. Take all of your medications as directed. Folic acid may also be used for other purposes not listed in this medication guide. What should I discuss with my healthcare provider before taking folic acid? You should not use this medicine if you have ever had an allergic reaction to folic acid. Ask a doctor or pharmacist if this medicine is safe to use if you have ever had: ?? epilepsy or other seizure disorder; ?? cirrhosis or other liver disease; ?? kidney disease (or if you are on dialysis); ?? hemolytic anemia; ?? pernicious anemia; ?? anemia that has not been diagnosed by a doctor and confirmed with laboratory testing; ?? an infection; or ?? alcoholism. Tell your doctor if you are or . How should I use folic acid? Use exactly as directed on the label, or as prescribed by your doctor. Folic acid oral is taken by mouth. Folic acid injection is given into a muscle, under the skin, or into a vein. A healthcare provider will give you this injection. Store folic acid at room temperature away from moisture and heat. What happens if I miss a dose? Take the medicine as soon as you can, but skip the missed dose if it is almost time for your next dose. Do not take two doses at one time. What happens if I overdose? Seek emergency medical attention or call the Poison Help line at . What should I avoid while taking folic acid? Follow your doctor's instructions about any restrictions on food, beverages, or activity. What are the possible side effects of folic acid? Get emergency medical help if you have signs of an allergic reaction: hives, rash, itching, skin redness; wheezing, difficult breathing; swelling of your face, lips, tongue, or throat. Common side effects may include: ?? nausea, loss of appetite; ?? bloating, gas, stomach pain; ?? bitter or unpleasant taste in your mouth; ?? confusion, trouble concentrating; ?? sleep problems; ?? depression; or ?? feeling excited or irritable. This is not a complete list of side effects and others may occur. Call your doctor for medical advice about side effects. You may report side effects to FDA at 8-050-AUK-5404. What other drugs will affect folic acid? Tell your doctor about all your other medicines, especially: ?? methotrexate; ?? nitrofurantoin; ?? pyrimethamine; ?? tetracycline; ?? a barbiturate such as phenobarbital or secobarbital; or ?? seizure medicine such as phenytoin or primidone. This list is not complete. Other drugs may affect folic acid, including prescription and jurl-bpk-nfpdhat medicines, vitamins, and herbal products. Not all possible drug interactions are listed here. Where can I get more information? Your pharmacist can provide more information about folic acid. Remember, keep this and all other medicines out of the reach of children, never share your medicines with others, and use this medication only for the indication prescribed. Every effort has been made to ensure that the information provided by [employer] is accurate, up-to-date, and complete, but no guarantee is made to that effect. Drug information contained herein may be time sensitive. [employer] information has been compiled for use by healthcare practitioners and consumers in the [place] and therefore [employer] does not warrant that uses outside of the [place] are appropriate, unless specifically indicated otherwise. [employer] drug information does not endorse drugs, diagnose patients or recommend therapy. [employer] drug information is an informational resource designed to assist licensed healthcare practitioners in caring for their patients and/or to serve consumers viewing this service as a supplement to, and not a substitute for, the expertise, skill, knowledge and judgment of healthcare practitioners. The absence of a warning for a given drug or drug combination in no way should be construed to indicate that the drug or drug combination is safe, effective or appropriate for any given patient. [employer] does not assume any responsibility for any aspect of healthcare administered with the aid of information [employer] provides. The information contained herein is not intended to cover all possible uses, directions, precautions, warnings, drug interactions, allergic reactions, or adverse effects. If you have questions about the drugs you are taking, check with your doctor, nurse or pharmacist. Copyright 5962-2284 [employer]. Version: 6.02. Revision Date: 01/25/2021. levofloxacin (oral) (ANDREI Rivera What is the most important information I should know about levofloxacin? Levofloxacin can cause serious side effects, including tendon problems, nerve damage, serious mood or behavior changes, or low blood sugar. Stop using this medicine and call your doctor at once if you have symptoms such as: headache, hunger, irritability, numbness, tingling, burning pain, confusion, agitation, paranoia, problems with memory or concentration, thoughts of suicide, or sudden pain or movement problems in any of your joints. In rare cases, levofloxacin may cause damage to your aorta, which could lead to dangerous bleeding or . Get emergency medical help if you have severe and constant pain in your chest, stomach, or back. What is levofloxacin? Levofloxacin is a fluoroquinolone (guhz-y-VOCB-o-lone) antibiotic that fights bacteria in the body. Levofloxacin is used to treat different types of bacterial infections. Levofloxacin is also used to treat people who have been exposed to anthrax or certain types of plague. Fluoroquinolone antibiotics can cause serious or disabling side effects. Levofloxacin should be used only for infections that cannot be treated with a safer antibiotic. Levofloxacin may also be used for purposes not listed in this medication guide. What should I discuss with my healthcare provider before taking levofloxacin? You should not use this medicine if you are allergic to levofloxacin or other fluoroquinolones (ciprofloxacin, gemifloxacin, moxifloxacin, norfloxacin, ofloxacin, and others). Levofloxacin may cause swelling or tearing of a tendon (the fiber that connects bones to muscles in the body), especially in the Achilles' tendon of the heel. This can happen during treatment or up to several months after you stop taking levofloxacin. Tendon problems may be more likely in certain people (children and older adults, or people who use steroid medicine or have had an organ transplant). Tell your doctor if you have ever had: ?? tendon problems, bone problems, arthritis or other joint problems (especially in children); ?? blood circulation problems, aneurysm, narrowing or hardening of the arteries; ?? heart problems, high blood pressure; ?? a genetic disease such as Marfan syndrome or Ehler's-Danlos syndrome; ?? diabetes; ?? a muscle or nerve disorder, such as myasthenia gravis; ?? kidney disease; ?? seizures or epilepsy; ?? a head injury or brain tumor; ?? long QT syndrome (in you or a family member); or ?? low levels of potassium in your blood (hypokalemia). Do not give this medicine to a child without medical advice. It is not known whether this medicine will harm an unborn baby. Tell your doctor if you are . You should not breast-feed while using this medicine. How should I take levofloxacin? Follow all directions on your prescription label and read all medication guides or instruction sheets. Use the medicine exactly as directed. Take levofloxacin with water, at the same time each day. Drink extra fluids to keep your kidneys working properly while taking this medicine. You may take levofloxacin tablets with or without food. Take levofloxacin oral solution (liquid) on an empty stomach, at least 1 hour before or 2 hours after a meal. Measure liquid medicine carefully. Use the dosing syringe provided, or use a medicine dose-measuring device (not a kitchen spoon). Use this medicine for the full prescribed length of time, even if your symptoms quickly improve. Skipping doses can increase your risk of infection that is resistant to medication. Levofloxacin will not treat a viral infection such as the flu or a common cold. Do not share levofloxacin with another person. This medicine may affect a drug-screening urine test and you may have false results. Tell the laboratory staff that you use levofloxacin. Store at room temperature away from moisture and heat. Keep the bottle tightly closed when not in use. What happens if I miss a dose? Take the medicine as soon as you can, but skip the missed dose if it is almost time for your next dose. Do not take two doses at one time. What happens if I overdose? Seek emergency medical attention or call the Poison Help line at . What should I avoid while taking levofloxacin? Avoid driving or hazardous activity until you know how this medicine will affect you. Your reactions could be impaired. Antibiotic medicines can cause diarrhea, which may be a sign of a new infection. If you have diarrhea that is watery or bloody, call your doctor before using anti-diarrhea medicine. Levofloxacin could make you sunburn more easily. Avoid sunlight or tanning beds. Wear protective clothing and use sunscreen (SPF 30 or higher) when you are outdoors. Tell your doctor if you have severe burning, redness, itching, rash, or swelling after being in the sun. What are the possible side effects of levofloxacin? Get emergency medical help if you have signs of an allergic reaction (hives, difficult breathing, swelling in your face or throat) or a severe skin reaction (fever, sore throat, burning in your eyes, skin pain, red or purple skin rash that spreads and causes blistering and peeling). Levofloxacin can cause serious side effects, including tendon problems, side effects on your nerves (which may cause permanent nerve damage), serious mood or behavior changes (after just one dose), or low blood sugar (which can lead to coma). Stop taking this medicine and call your doctor at once if you have: ?? low blood sugar--headache, hunger, sweating, irritability, dizziness, nausea, fast heart rate, or feeling anxious or shaky; ?? nerve symptoms in your hands, arms, legs, or feet--numbness, weakness, tingling, burning pain; ?? serious mood or behavior changes--nervousness, confusion, agitation, paranoia, hallucinations, memory problems, trouble concentrating, thoughts of suicide; or ?? signs of tendon rupture--sudden pain, swelling, bruising, tenderness, stiffness, movement problems, or a snapping or popping sound in any of your joints (rest the joint until you receive medical care or instructions). In rare cases, levofloxacin may cause damage to your aorta, the main blood artery of the body. This could lead to dangerous bleeding or . Get emergency medical help if you have severe and constant pain in your chest, stomach, or back. Stop taking levofloxacin and call your doctor at once if you have: ?? severe stomach pain, diarrhea that is watery or bloody; ?? fast or pounding heartbeats, fluttering in your chest, shortness of breath, and sudden dizziness (like you might pass out); ?? the first sign of any skin rash, no matter how mild; ?? muscle weakness, breathing problems; ?? seizure (convulsions); ?? increased pressure inside the skull--severe headaches, ringing in your ears, dizziness, nausea, vision problems, pain behind your eyes; or ?? liver problems--upper stomach pain, loss of appetite, dark urine, rambo-colored stools, jaundice (yellowing of the skin or eyes). Common side effects may include: ?? nausea, constipation, diarrhea; ?? headache, dizziness; or ?? trouble sleeping. This is not a complete list of side effects and others may occur. Call your doctor for medical advice about side effects. You may report side effects to FDA at 1-508-RDF-6005. What other drugs will affect levofloxacin? Some medicines can make levofloxacin much less effective when taken at the same time. If you take any of the following medicines, take your levofloxacin dose 2 hours before or 2 hours after you take the other medicine. ?? antacids that contain magnesium or aluminum (such as Maalox, Mylanta, or Rolaids), or the ulcer medicine sucralfate (Carafate); ?? didanosine (Videx) powder or chewable tablets; or ?? vitamin or mineral supplements that contain aluminum, iron, magnesium, or zinc. Tell your doctor about all your other medicines, especially: ?? theophylline; ?? a diuretic or 'water pill'; ?? heart rhythm medication; ?? insulin or oral diabetes medicine (check your blood sugar regularly); ?? medicine to treat depression or mental illness; ?? steroid medicine (such as prednisone); ?? a blood thinner--warfarin, Coumadin, Jantoven; or ?? NSAIDs (nonsteroidal anti-inflammatory drugs)--aspirin, ibuprofen (Advil, Motrin), naproxen (Aleve), celecoxib, diclofenac, indomethacin, meloxicam, and others. This list is not complete. Other drugs may affect levofloxacin, including prescription and awhk-afc-rxgdlll medicines, vitamins, and herbal products. Not all possible drug interactions are listed here. Where can I get more information? Your pharmacist can provide more information about levofloxacin. Remember, keep this and all other medicines out of the reach of children, never share your medicines with others, and use this medication only for the indication prescribed. Every effort has been made to ensure that the information provided by [employer] is accurate, up-to-date, and complete, but no guarantee is made to that effect. Drug information contained herein may be time sensitive. [employer] information has been compiled for use by healthcare practitioners and consumers in the [place] and therefore [employer] does not warrant that uses outside of the [place] are appropriate, unless specifically indicated otherwise. [employer]'s drug information does not endorse drugs, diagnose patients or recommend therapy. [employer]'s drug information is an informational resource designed to assist licensed healthcare practitioners in caring for their patients and/or to serve consumers viewing this service as a supplement to, and not a substitute for, the expertise, skill, knowledge and judgment of healthcare practitioners. The absence of a warning for a given drug or drug combination in no way should be construed to indicate that the drug or drug combination is safe, effective or appropriate for any given patient. [facility] does not assume any responsibility for any aspect of healthcare administered with the aid of information [facility] provides. The information contained herein is not intended to cover all possible uses, directions, precautions, warnings, drug interactions, allergic reactions, or adverse effects. If you have questions about the drugs you are taking, check with your doctor, nurse or pharmacist. Copyright 9258-8375 [employer]. Version: 14.. Revision Date: 07/01/2018. tamsulosin (negro nora JANN sin) Flomax What is the most important information I should know about tamsulosin? Follow all directions on your medicine label and package. Tell each of your healthcare providers about all your medical conditions, allergies, and all medicines you use. What is tamsulosin? Tamsulosin is an alpha-brenden that is used to improve urination in men with benign prostatic hyperplasia (enlarged prostate). Tamsulosin is not approved for use in women or children. Tamsulosin may also be used for purposes not listed in this medication guide. What should I discuss with my healthcare provider before taking tamsulosin? You should not use tamsulosin if you are allergic to it. Tell your doctor if you have ever had: ?? liver or kidney disease; ?? prostate cancer; ?? low blood pressure; or ?? an allergy to sulfa drugs. Tamsulosin can affect your pupils. If you have cataract surgery, tell your surgeon ahead of time that you use this medicine. Tamsulosin is not for use in women, and the effects of this medicine during or in women are unknown. How should I take tamsulosin? Your doctor may test your prostate specific antigen (PSA) to check for prostate cancer before you take tamsulosin. Follow all directions on your prescription label and read all medication guides or instruction sheets. Your doctor may occasionally change your dose. Use the medicine exactly as directed. Tamsulosin is usually taken once a day, approximately 30 minutes after the same meal each day. Swallow the capsule whole and do not crush, chew, break, or open it. Your blood pressure will need to be checked often. Some things can cause your blood pressure to get too low. This includes vomiting, diarrhea, or heavy sweating. Call your doctor if you are sick with vomiting or diarrhea. Store at room temperature away from moisture and heat. If you stop taking tamsulosin for any reason, call your doctor before you start taking it again. You may need a dose adjustment. What happens if I miss a dose? Take the medicine as soon as you can, but skip the missed dose if it is almost time for your next dose. Do not take two doses at one time. If you miss your doses for several days in a row, talk with your doctor before restarting the medication. What happens if I overdose? Seek emergency medical attention or call the Poison Help line at . What should I avoid while taking tamsulosin? Avoid driving or hazardous activity until you know how this medicine will affect you. Your reactions could be impaired. Avoid getting up too fast from a sitting or lying position, or you may feel dizzy. What are the possible side effects of tamsulosin? Get emergency medical help if you have signs of an allergic reaction (hives, difficult breathing, swelling in your face or throat) or a severe skin reaction (fever, sore throat, burning eyes, skin pain, red or purple skin rash with blistering and peeling). Stop using tamsulosin and call your doctor at once if you have: ?? a light-headed feeling, like you might pass out; or ?? penis erection that is painful or lasts 4 hours or longer. Tamsulosin lowers blood pressure and may cause dizziness or fainting, especially when you first start taking it. You may feel very dizzy when you first wake up. Avoid getting up too fast from a sitting or lying position, or you may feel dizzy. Common side effects may include: ?? abnormal ejaculation, decreased amount of semen; ?? dizziness, drowsiness, weakness; ?? runny nose, cough; ?? back pain, chest pain; ?? nausea, diarrhea; ?? tooth problems; ?? blurred vision; ?? sleep problems (insomnia); or ?? decreased interest in sex. This is not a complete list of side effects and others may occur. Call your doctor for medical advice about side effects. You may report side effects to FDA at 1-791-APO-9034. What other drugs will affect tamsulosin? Tell your doctor about all your current medicines. Many drugs can increase your risk of very low blood pressure while taking tamsulosin, especially: ?? medicines similar to tamsulosin (alfuzosin, doxazosin, prazosin, silodosin, or terazosin); ?? heart or blood pressure medication; or ?? sildenafil (Viagra) and other erectile dysfunction medicines. This list is not complete and many other drugs may affect tamsulosin. This includes prescription and mtrs-bym-jldnitf medicines, vitamins, and herbal products. Not all possible drug interactions are listed here. Where can I get more information? Your pharmacist can provide more information about tamsulosin. Remember, keep this and all other medicines out of the reach of children, never share your medicines with others, and use this medication only for the indication prescribed. Every effort has been made to ensure that the information provided by [employer] is accurate, up-to-date, and complete, but no guarantee is made to that effect. Drug information contained herein may be time sensitive. [employer] information has been compiled for use by healthcare practitioners and consumers in the [place] and therefore [employer] does not warrant that uses outside of the [place] are appropriate, unless specifically indicated otherwise. [employer] drug information does not endorse drugs, diagnose patients or recommend therapy. [employer] drug information is an informational resource designed to assist licensed healthcare practitioners in caring for their patients and/or to serve consumers viewing this service as a supplement to, and not a substitute for, the expertise, skill, knowledge and judgment of healthcare practitioners. The absence of a warning for a given drug or drug combination in no way should be construed to indicate that the drug or drug combination is safe, effective or appropriate for any given patient. [employer] does not assume any responsibility for any aspect of healthcare administered with the aid of information [employer] provides. The information contained herein is not intended to cover all possible uses, directions, precautions, warnings, drug interactions, allergic reactions, or adverse effects. If you have questions about the drugs you are taking, check with your doctor, nurse or pharmacist. Copyright [id number] [facility]. Version: 9.02. Revision Date: 11/07/2018. ondansetron (oral) (on GERDA se [address]) Rd S[place] [employer] What is the most important information I should know about ondansetron? You should not use ondansetron if you are also using apomorphine (Apokyn). What is ondansetron? Ondansetron blocks the actions of chemicals in the body that can trigger nausea and vomiting. Ondansetron is used to prevent nausea and vomiting that may be caused by surgery, cancer chemotherapy, or radiation treatment. Ondansetron may be used for purposes not listed in this medication guide. What should I discuss with my health care provider before taking ondansetron? You should not use ondansetron if: ?? you are also using apomorphine (Apokyn); or ?? you are allergic to ondansetron or similar medicines (dolasetron, granisetron, palonosetron). To make sure ondansetron is safe for you, tell your doctor if you have: ?? liver disease; ?? an electrolyte imbalance (such as low levels of potassium or magnesium in your blood); ?? congestive heart failure, slow heartbeats; ?? a personal or family history of long QT syndrome; or ?? a blockage in your digestive tract (stomach or intestines). Ondansetron is not expected to harm an unborn baby. Tell your doctor if you are . It is not known whether ondansetron passes into breast milk or if it could harm a nursing baby. Tell your doctor if you are breast-feeding a baby. Ondansetron is not approved for use by anyone younger than 4 years old. Ondansetron orally disintegrating tablets may contain phenylalanine. Tell your doctor if you have phenylketonuria (PKU). How should I take ondansetron? Follow all directions on your prescription label. Do not take this medicine in larger or smaller amounts or for longer than recommended. Ondansetron can be taken with or without food. The first dose of ondansetron is usually taken before the start of your surgery, chemotherapy, or radiation treatment. Follow your doctor's dosing instructions very carefully. Take the ondansetron regular tablet with a full glass of water. To take the orally disintegrating tablet (Zofran ODT): ?? Keep the tablet in its blister pack until you are ready to take it. Open the package and peel back the foil. Do not push a tablet through the foil or you may damage the tablet. ?? Use dry hands to remove the tablet and place it in your mouth. ?? Do not swallow the tablet whole. Allow it to dissolve in your mouth without chewing. ?? Swallow several times as the tablet dissolves. To use ondansetron oral soluble film (strip) (Zuplenz): ?? Keep the strip in the foil pouch until you are ready to use the medicine. ?? Using dry hands, remove the strip and place it on your tongue. It will begin to dissolve right away. ?? Do not swallow the strip whole. Allow it to dissolve in your mouth without chewing. ?? Swallow several times after the strip dissolves. If desired, you may drink liquid to help swallow the dissolved strip. ?? Wash your hands after using Zuplenz. Measure liquid medicine with the dosing syringe provided, or with a special dose-measuring spoon or medicine cup. If you do not have a dose-measuring device, ask your pharmacist for one. Store at room temperature away from moisture, heat, and light. Store liquid medicine in an upright position. What happens if I miss a dose? Take the missed dose as soon as you remember. Skip the missed dose if it is almost time for your next scheduled dose. Do not take extra medicine to make up the missed dose. What happens if I overdose? Seek emergency medical attention or call the Poison Help line at . Overdose symptoms may include sudden loss of vision, severe constipation, feeling light-headed, or fainting. What should I avoid while taking ondansetron? Ondansetron may impair your thinking or reactions. Be careful if you drive or do anything that requires you to be alert. What are the possible side effects of ondansetron? Get emergency medical help if you have signs of an allergic reaction: rash, hives; fever, chills, difficult breathing; swelling of your face, lips, tongue, or throat. Call your doctor at once if you have: ?? severe constipation, stomach pain, or bloating; ?? headache with chest pain and severe dizziness, fainting, fast or pounding heartbeats; ?? fast or pounding heartbeats; ?? jaundice (yellowing of the skin or eyes); ?? blurred vision or temporary vision loss (lasting from only a few minutes to several hours); ?? high levels of serotonin in the body--agitation, hallucinations, fever, fast heart rate, overactive reflexes, nausea, vomiting, diarrhea, loss of coordination, fainting. Common side effects may include: ?? diarrhea or constipation; ?? headache; ?? drowsiness; or ?? tired feeling. This is not a complete list of side effects and others may occur. Call your doctor for medical advice about side effects. You may report side effects to FDA at 9-968-KRZ-3274. What other drugs will affect ondansetron? Ondansetron can cause a serious heart problem, especially if you use certain medicines at the same time, including antibiotics, antidepressants, heart rhythm medicine, antipsychotic medicines, and medicines to treat cancer, malaria, HIV or AIDS. Tell your doctor about all medicines you use, and those you start or stop using during your treatment with ondansetron. Taking ondansetron while you are using certain other medicines can cause high levels of serotonin to build up in your body, a condition called 'serotonin syndrome,' which can be fatal. Tell your doctor if you also use: ?? medicine to treat depression; ?? medicine to treat a psychiatric disorder; ?? a narcotic (opioid) medication; or ?? medicine to prevent nausea and vomiting. This list is not complete and many other drugs can interact with ondansetron. This includes prescription and kfza-gfn-tkqccfi medicines, vitamins, and herbal products. Give a list of all your medicines to any healthcare provider who treats you. Where can I get more information? Your pharmacist can provide more information about ondansetron. Remember, keep this and all other medicines out of the reach of children, never share your medicines with others, and use this medication only for the indication prescribed. Every effort has been made to ensure that the information provided by [employer]') is accurate, up-to-date, and complete, but no guarantee is made to that effect. Drug information contained herein may be time sensitive. [employer] information has been compiled for use by healthcare practitioners and consumers in the [place] and therefore [employer] does not warrant that uses outside of the [place] are appropriate, unless specifically indicated otherwise. [employer]'s drug information does not endorse drugs, diagnose patients or recommend therapy. [employer] drug information is an informational resource designed to assist licensed healthcare practitioners in caring for their patients and/or to serve consumers viewing this service as a supplement to, and not a substitute for, the expertise, skill, knowledge and judgment of healthcare practitioners. The absence of a warning for a given drug or drug combination in no way should be construed to indicate that the drug or drug combination is safe, effective or appropriate for any given patient. [facility] does not assume any responsibility for any aspect of healthcare administered with the aid of information [facility] provides. The information contained herein is not intended to cover all possible uses, directions, precautions, warnings, drug interactions, allergic reactions, or adverse effects. If you have questions about the drugs you are taking, check with your doctor, nurse or pharmacist. Copyright 7204-3915 [facility]. Version: 13.01. Revision Date: 04/14/2016. hydrochlorothiazide (JAVON kayleen eason THY thierno hernandez) What is the most important information I should know about hydrochlorothiazide? You should not use this medicine if you are unable to urinate. What is hydrochlorothiazide? Hydrochlorothiazide is a thiazide diuretic (water pill) that is used to treat high blood pressure (hypertension). Hydrochlorothiazide may also be used for purposes not listed in this medication guide. What should I discuss with my healthcare provider before taking hydrochlorothiazide? You should not use hydrochlorothiazide if you are allergic to it, or if you are unable to urinate. Tell your doctor if you have ever had: ?? kidney disease; ?? liver disease; ?? gout; ?? glaucoma; ?? low levels of potassium or sodium in your blood; ?? high levels of calcium in your blood; ?? a parathyroid gland disorder; ?? diabetes; or ?? an allergy to sulfa drugs or penicillin. Tell your doctor if you are or plan to become . If you take this medicine during , your baby may develop jaundice or other problems. You should not breastfeed while using this medicine. Hydrochlorothiazide is not approved for use by anyone younger than 18 years old. How should I take hydrochlorothiazide? Follow all directions on your prescription label and read all medication guides or instruction sheets. Your doctor may occasionally change your dose. Use the medicine exactly as directed. Call your doctor if you have ongoing vomiting or diarrhea, or if you are sweating more than usual. You can easily become dehydrated while taking this medicine, which can lead to severely low blood pressure or a serious electrolyte imbalance. Your blood pressure will need to be checked often. Your blood and urine may be tested if you have been vomiting or are dehydrated. If you need surgery, tell your surgeon you currently use this medicine. You may need to stop for a short time. Keep using this medicine as directed, even if you feel well. High blood pressure often has no symptoms. You may need to use blood pressure medicine for the rest of your life. Store at room temperature away from moisture, heat, and freezing. Keep the bottle tightly closed when not in use. What happens if I miss a dose? Take the medicine as soon as you can, but skip the missed dose if it is almost time for your next dose. Do not take two doses at one time. What happens if I overdose? Seek emergency medical attention or call the Poison Help line at . Overdose symptoms may include nausea, dizziness, dry mouth, thirst, and muscle pain or weakness. What should I avoid while taking hydrochlorothiazide? Hydrochlorothiazide may increase your risk of skin cancer. Avoid sunlight or tanning beds. Wear protective clothing and use sunscreen (SPF 30 or higher) when you are outdoors. Your doctor may want you to have skin examinations on a regular basis. Drinking alcohol with this medicine can cause side effects. Avoid getting up too fast from a sitting or lying position, or you may feel dizzy. Avoid becoming overheated or dehydrated during exercise, in hot weather, or by not drinking enough fluids. Follow your doctor's instructions about the type and amount of liquids you should drink. In some cases, drinking too much liquid can be as unsafe as not drinking enough. What are the possible side effects of hydrochlorothiazide? Get emergency medical help if you have signs of an allergic reaction (hives, difficult breathing, swelling in your face or throat) or a severe skin reaction (fever, sore throat, burning eyes, skin pain, red or purple skin rash with blistering and peeling). Call your doctor at once if you have: ?? a light-headed feeling; ?? eye pain, vision problems; ?? jaundice (yellowing of the skin or eyes); ?? pale skin, easy bruising, unusual bleeding (nose, mouth, vagina, or rectum); ?? shortness of breath, wheezing, cough with foamy mucus, chest pain; ?? dehydration symptoms--feeling very thirsty or hot, being unable to urinate, heavy sweating, or hot and dry skin; or ?? signs of an electrolyte imbalance--increased thirst or urination, confusion, vomiting, constipation, muscle pain, leg cramps, bone pain, lack of energy, irregular heartbeats, tingly feeling. Common side effects may include: ?? weakness; ?? feeling like you might pass out; ?? severe pain in your upper stomach spreading to your back, nausea and vomiting; ?? fever, chills, tiredness, mouth sores, skin sores, easy bruising, unusual bleeding, pale skin, cold hands and feet, feeling light-headed or short of breath; or ?? electrolyte imbalance. This is not a complete list of side effects and others may occur. Call your doctor for medical advice about side effects. You may report side effects to FDA at 5-782-LFJ-4022. What other drugs will affect hydrochlorothiazide? Taking this medicine with other drugs that make you light-headed can worsen this effect. Ask your doctor before using opioid medication, a sleeping pill, a muscle relaxer, or medicine for anxiety or seizures. Tell your doctor about all your other medicines, especially: ?? cholestyramine, colestipol; ?? insulin or oral diabetes medicine; ?? lithium; ?? other blood pressure medications; ?? steroid medicine; or ?? NSAIDs (nonsteroidal anti-inflammatory drugs)--aspirin, ibuprofen (Advil, Motrin), naproxen (Aleve), celecoxib, diclofenac, indomethacin, meloxicam, and others. This list is not complete. Other drugs may affect hydrochlorothiazide, including prescription and rgkv-zuf-jcaduls medicines, vitamins, and herbal products. Not all possible drug interactions are listed here. Where can I get more information? Your pharmacist can provide more information about hydrochlorothiazide. Remember, keep this and all other medicines out of the reach of children, never share your medicines with others, and use this medication only for the indication prescribed. Every effort has been made to ensure that the information provided by [employer]') is accurate, up-to-date, and complete, but no guarantee is made to that effect. Drug information contained herein may be time sensitive. [employer] information has been compiled for use by healthcare practitioners and consumers in the [place] and therefore [employer] does not warrant that uses outside of the [place] are appropriate, unless specifically indicated otherwise. [employer] drug information does not endorse drugs, diagnose patients or recommend therapy. [employer] drug information is an informational resource designed to assist licensed healthcare practitioners in caring for their patients and/or to serve consumers viewing this service as a supplement to, and not a substitute for, the expertise, skill, knowledge and judgment of healthcare practitioners. The absence of a warning for a given drug or drug combination in no way should be construed to indicate that the drug or drug combination is safe, effective or appropriate for any given patient. [employer] does not assume any responsibility for any aspect of healthcare administered with the aid of information [employer] provides. The information contained herein is not intended to cover all possible uses, directions, precautions, warnings, drug interactions, allergic reactions, or adverse effects. If you have questions about the drugs you are taking, check with your doctor, nurse or pharmacist. Copyright 5470-8467 [employer]. Version: 13.01. Revision Date: 08/03/2020. Emergency Awareness and Preventative Care STROKE is an EMERGENCY Every Minute Counts Act FAST and Check for these signs: FACE Does the face look uneven? ARM documented in this encounter Plan of Treatment Not on file documented as of this encounter Visit Diagnoses Not on filedocumented in this encounter Care Teams Test Eng Relationship Specialty Start Date End Date Merlin Egan MD [address] [place] [address] PCP - General Family Medicine 04/18/22 12/12/23 Aj Valentine MD [address] [place] [address] PCP - General Adolescent Medicine 12/13/23 11/02/24 Tmi Rey MD [address] [place] [address] PCP - General Family Medicine 11/03/24 documented as of this encounter
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
--- OUTSIDE RECORDS SUMMARY | 2024-12-01 16:45 | XMS_ITS | Encounter Summary ---
Author Organization [facility] [employer] Address [address] [place] [address] Care Team Providers Care Manager System Name Role Phone Merlin Egan MD Primary Care Provider + [phone] Aj Valentine MD Primary Care Provider + [phone] Tim Rey MD Primary Care Provider + [phone] Encounter Details Date Type Department Care Team (Late st Contact Info) Description 03/15/2022 Transcribed Document [facility] [place] [address] [place] [address] ProviderRocael MD [address] [place] [address] Social History Tobacco Use Types Packs/Day Years Used Date Smoking Tobacco: Never Assessed Sex and Gender Information Value Date Recorded Sex Assigned at Not on file Legal Sex Male 11:25 AM CDT Gender Identity Not on file Sexual Orientation Not on file documented as of this encounter Miscellaneous Notes * Cerner Conversion Note - Historical ProviderMD - 03/15/2022 11:57 AM CDT Patient Education Materials Follows:and Behavioral Health Finding Treatment for Addiction Addiction is a [...] These discussions are confidential. ??? The National Orange on Alcoholism and Drug Dependence (NCADD). This group has information about treatment centers and programs for people who have an addiction and for family members. ? Call: 5-599-PXJ-CALL ( ). ? Visit the website: https://www.ncadd.org/ ??? The Substance Abuse and Mental Health Services Administration (SAMHSA). This organization will help you find publicly funded treatment centers, help hotlines, and counseling services near you. ? Call: 4-826-592-HELP ( ). ? Visit the website: www.findtreatment.samhsa.gov ??? The National Problem Gambling Helpline. This is a 24-hour confidential helpline for gambling addiction. ? Call: ? Visit the website: https://www.DoveConvieneambling.org/ In countries outside of the [place] and [...] provider. Document Revised: 06/09/2021 Document Reviewed: 07/10/2018 [employer] Patient Education ? 2021 [employer]. Urology Kidney Stones Kidney stones are rock-like masses [...] these instructions at home: Medicines ??? Take qykv-ktp-ypatuwz and prescription medicines only as told by your doctor. ??? Ask your doctor if the medicine prescribed to you requires you to avoid driving or using heavy machinery. Eating and drinking ??? Drink enough fluid to keep your pee pale yellow. You may be told to drink at least 8?10 glasses of water each day. This will [...] hours after a stone comes out. ? 8?12 weeks after a stone comes out, and every 6?12 months after that. ??? Strain your pee [...] provider. Document Revised: 10/24/2019 Document Reviewed: 10/28/2019 Elsevier Patient Education ? 2021 MOWGLI. Electronically signed by Niels, Harshil Conversion Sales Manager [employer] Cerner at 10/10/2022 4:08 PM CDT documented in this encounter Plan of Treatment Not on file documented as of this encounter Visit Diagnoses Not on filedocumented in this encounter Care Teams Manager System Relationship Specialty Start Date End Date Merlin Egan MD [address] [place] [address] [place] [address] PCP - General Family Medicine 04/18/22 12/12/23 Aj Valentine MD [address] [place] [address] PCP - General Adolescent Medicine 12/13/23 11/02/24 Tim Rey MD [address] [place] [address] PCP - General Family Medicine 11/03/24 documented as of this encounter
--- OUTSIDE RECORDS SUMMARY | 2024-12-01 16:45 | XMS_ITS | Encounter Summary ---
Author Organization [facility] In iatives Address [address] [place] [address] Care Team Providers Care Senior Pensions Administrator Name Role Phone Merlin Egan MD Primary Care Provider + [phone] Aj Valentine MD Primary Care Provider + [phone] Tim Rey MD Primary Care Provider + [phone] Encounter Details Date Type Department Care Team (Late st Contact Info) Description 03/15/2022 Transcribed Document [facility] [place] Family Medicine [address] [place] [address] ProviderRocael MD [address] [place] [address] Social History Tobacco Use Types Packs/Day Years Used Date Smoking Tobacco: Never Assessed Sex and Gender Information Value Date Recorded Sex Assigned at Not on file Legal Sex Male 11:25 AM CDT Gender Identity Not on file Sexual Orientation Not on file documented as of this encounter Miscellaneous Notes * Cerner Conversion Note - Historical ProviderMD - 03/15/2022 6:46 PM CDT Nursing Discharge Summary Entered On: 03/15/2022 18:47 EDT Performed On: 03/15/2022 18:46 EDT by Landen Wilson RN-PATIENT CARE BEDSIDE NON-EXEMPT Discharge Documentation Discharge Date/Time : 03/15/2022 13:00 EDT Patient Disposition, General : Discharge Discharge To : Home with ambulatory/outpatient follow-up Mode Of Departure, General Discharge : Private vehicle Accompanied By, Discharge : Significant other IV Discontinued : Yes Personal Belongings With Patient : Yes Pt's Own Supply of Medications Returned : No patient supply of medications to return Medications Given to Patient : Yes Discharge Instructions Reviewed With, Opportunity For Questions Given : Patient Patient Education Completed : Yes Teaching Evaluation : Verbalizes understanding Landen Wilson RN-PATIENT CARE BEDSIDE NON-EXEMPT - 03/15/2022 18:46 EDT Electronically signed by [facility], [facility] Conversion Wind Commissioning Technician Cerner at 10/10/2022 4:03 PM CDT documented in this encounter Plan of Treatment Not on file documented as of this encounter Visit Diagnoses Not on filedocumented in this encounter Care Teams Senior Pensions Administrator Relationship Specialty Start Date End Date Merlin Egan MD [address] [place] [address] PCP - General Family Medicine 04/18/22 12/12/23 Aj Valentine MD [address] [facility] [address] [place] [address] PCP - General Adolescent Medicine 12/13/23 11/02/24 Tim Rey MD [address] [facility] [address] [place] [address] PCP - General Family Medicine 11/03/24 documented as of this encounter
--- OUTSIDE RECORDS SUMMARY | 2024-12-01 16:45 | XMS_ITS | Encounter Summary ---
Author Organization [facility] In iatives Address [address] [place] [address] Care Team Providers Care Load Checker Name Role Phone Merlin Egan MD Primary Care Provider + [phone] Aj Valentine MD Primary Care Provider + [phone] Tim Rey MD Primary Care Provider + [phone] Encounter Details Date Type Department Care Team (Late st Contact Info) Description 03/14/2022 Transcribed Document [facility] [place] Family Medicine [address] [place] [address] ProviderRocael MD [address] [place] [address] Social History Tobacco Use Types Packs/Day [...] 03/14/2022 5:41 PM CDT [facility] Main OR PACU Summary Primary Physician: AJ HALL MD-URO Finalized Date/Time: 03/14/22 18:21:26 Pt. Name: BRANDON DAVE /Sex: 1975 Male Med Rec #: [id number] Physician: STELLA WISEMAN MD Financial #: [id number] Pt. Type: I Room/Bed: [facility]/ Admit/Disch: 03/13/22 12:32:00 - Institution: [facility] OR PACU Case Times Entry 1 In PACU I 03/14/22 17:54:00 Ready for PACU 03/14/22 18:26:00 Discharge Discharge from PACU 03/14/22 18:26:00 I Last Modified By: GABRIELLE NASSAR 03/14/22 18:20:22 Finalized By: GABRIELLE NASSAR Document Signatures Signed By: GABRIELLE NASSAR 03/14/22 18:21 Electronically signed by Niels [facility] Conversion Ice Delivery Driver Cerner at 10/10/2022 4:08 PM CDT documented in this encounter Plan of Treatment Not on file documented as of this encounter Visit Diagnoses Not on filedocumented in this encounter Care Teams Load Checker Relationship Specialty Start Date End Date Merlin Egan MD [address] [place] [address] [place] [address] PCP - General Family Medicine 04/18/22 12/12/23 Aj Valentine MD [address] [place] [address] [place] [address] PCP - General Adolescent Medicine 12/13/23 11/02/24 Tim Rey MD [address] [place] [address] PCP - General Family Medicine 11/03/24 documented as of this encounter
--- OUTSIDE RECORDS SUMMARY | 2024-12-01 16:45 | XMS_ITS | Encounter Summary ---
Author Organization [facility] In iatives Address [address] [place] [address] Care Team Providers Care Wax Pattern Assembler Name Role Phone Merlin Egan MD Primary Care Provider + [phone] Aj Valentine MD Primary Care Provider + [phone] Tim Rey MD Primary Care Provider + [phone] Encounter Details Date Type Department Care Team (Late st Contact Info) Description 03/15/2022 Transcribed Document [facility] [place] Family Medicine [address] [place] [address] ProviderRocael MD [address] [place] [address] Social History Tobacco Use Types Packs/Day Years Used Date Smoking Tobacco: Never Assessed Sex and Gender Information Value Date Recorded Sex Assigned at Not on file Legal Sex Male 11:25 AM CDT Gender Identity Not on file Sexual Orientation Not on file documented as of this encounter Miscellaneous Notes * Cerner Conversion Note - Historical ProviderMD - 03/15/2022 2:00 AM CDT Sample Case Porter Details Entered On: 03/15/2022 1:28 EDT Performed On: 03/15/2022 2:00 EDT by Modesta Canada RN Order Details Transport Mode Order Detail : Wheelchair Isolation Precautions Order Detail : Standard Precautions Order Detail : N/A IV Order Detail : 1 Oxygen Order Detail : 0 Nurse Collect Order Detail : 0 Lift/Transfer : Independent Central Line Order Detail : No Room Service : Not Appropriate Arterial Line : No Patient Needs Meds Crushed/Liquid : No Modesta Canada, RN - 03/15/2022 1:26 EDT Electronically signed by [facility], [facility] Conversion Glass Vial Bending Conveyor Feeder Cerner at 10/10/2022 4:10 PM CDT documented in this encounter Plan of Treatment Not on file documented as of this encounter Visit Diagnoses Not on filedocumented in this encounter Care Teams Wax Pattern Assembler Relationship Specialty Start Date End Date Merlin Egan MD [address] [facility] [place] [address] PCP - General Family Medicine 04/18/22 12/12/23 Aj Valentine MD [address] [facility] [address] [place] [address] PCP - General Adolescent Medicine 12/13/23 11/02/24 Tim Rey MD [address] [facility] [address] [place] [address] PCP - General Family Medicine 11/03/24 documented as of this encounter
--- OUTSIDE RECORDS SUMMARY | 2024-12-01 16:45 | XMS_ITS | Encounter Summary ---
Author Organization [facility] In iatives Address [address] [place] [address] Care Team Providers Care Transfer Man Name Role Phone Merlin Egan MD Primary Care Provider + [phone] Aj Valentine MD Primary Care Provider + [phone] Tim Rey MD Primary Care Provider + [phone] Encounter Details Date Type Department Care Team (Late st Contact Info) Description 03/13/[address] [facility] [place] Family Medicine [address] [place] [address] ProviderRocael MD [address] [place] [address] Social History Tobacco Use Types Packs/Day Years Used Date Smoking Tobacco: Never Assessed Sex and Gender Information Value Date Recorded Sex Assigned at Not on file Legal Sex Male 11:25 AM CDT Gender Identity Not on file Sexual Orientation Not on file documented as of this encounter Miscellaneous Notes * Cerner Conversion Note - Historical ProviderMD - 03/13/2022 1:[address] [facility] Entered On: 03/13/2022 14:02 EDT Performed On: 03/13/2022 13:56 EDT by OPAL WAKEFIELD, PT [facility] Physical Therapy Screen : 1 PT EA ADDL 15 MIN NO CHARGE : 1 OPAL WAKEFIELD, PT - 03/13/2022 14:01 EDT Electronically signed by [facility], [facility] Conversion Home Health Travel Ot Cerner at 10/10/2022 4:21 PM CDT documented in this encounter Plan of Treatment Not on file documented as of this encounter Visit Diagnoses Not on filedocumented in this encounter Care Teams Transfer Man Relationship Specialty Start Date End Date Merlin Egan MD [address] [facility] [place] [address] PCP - General Family Medicine 04/18/22 12/12/23 Aj Valentine MD [address] [place] [address] PCP - General Adolescent Medicine 12/13/23 11/02/24 Tim Rey MD [address] [place] [address] PCP - General Family Medicine 11/03/24 documented as of this encounter
--- OUTSIDE RECORDS SUMMARY | 2024-12-01 16:45 | XMS_ITS | Encounter Summary ---
Author Organization [facility] In iatives Address [address] [place] [address] Care Team Providers Care Mixer Dry Food Products Name Role Phone Merlin Egan MD Primary Care Provider + [phone] Aj Valentine MD Primary Care Provider + [phone] Tim Rey MD Primary Care Provider + [phone] Encounter Details Date Type Department Care Team (Late st Contact Info) Description 03/15/2022 Transcribed Document [facility] [place] Family Medicine [address] [place] [address] ProviderRocael MD [address] [place] [address] Social History Tobacco Use Types Packs/Day Years Used Date Smoking Tobacco: Never Assessed Sex and Gender Information Value Date Recorded Sex Assigned at Not on file Legal Sex Male 11:25 AM CDT Gender Identity Not on file Sexual Orientation Not on file documented as of this encounter Miscellaneous Notes * Cerner Conversion Note - Historical ProviderMD - 03/15/2022 3:58 PM CDT Final Discharge Planning Entered On: 03/15/2022 16:01 EDT Performed On: 03/15/2022 15:58 EDT by Sil Pierre RN Final Discharge Planning Discharge Arrangements : Patient Post-Acute Information Patient Name: BRANDON DAVE Gender: Male : [birth year] Age: 46 Years No Post-Acute Placement(s) Listed No Post-Acute Service(s) Listed No [place] Referral(s) Listed Patient Offered Choice/Affiliations Explained : No Designation of Choice Signed : No Follow Up Appointment Scheduled : Yes Is Patient High/Moderate Readmission Risk? : No Patient/Family Notified of Plan : Yes Is Patient Ready for Discharge? : Yes Physician Notified Patient is Ready for Discharge? : Yes Discharge To Care Management : Home/Residential/Fpc or Self Care -01 Sil Pierre RN - 03/15/2022 15:58 EDT Final Narrative Note Final Narrative Note : Pt DC home with family transporting via car. The pt was assessed by RADHA and reccomended partial hospitalization and sent resources. CM gave a copy of the resources to the pt and the pt signed a copy and was placed in chart. Sil Pierre RN - 03/15/2022 15:58 EDT Electronically signed by Niels [facility] Conversion Phlebotomy Director Cerner at 10/10/2022 4:10 PM CDT documented in this encounter Plan of Treatment Not on file documented as of this encounter Visit Diagnoses Not on filedocumented in this encounter Care Teams Mixer Dry Food Products Relationship Specialty Start Date End Date Merlin Egan MD [address] [place] [address] [place] [address] PCP - General Family Medicine 04/18/22 12/12/23 Aj Valentine MD [address] [facility] [address] [place] [address] PCP - General Adolescent Medicine 12/13/23 11/02/24 Tim Rey MD [address] [place] [address] PCP - General Family Medicine 11/03/24 documented as of this encounter
--- NOTE | 2024-12-01 16:46 | ECG_ITS ---
APPROVED REPORT Exam: Resting ECG HR:69 bpm ECG Measurements Heart Rate 69 AXES RI 131 P 63 QRSd 101 QRS 68 QT 416 T 71 QTc 435 Conclusion SINUS RHYTHM INCOMPLETE RIGHT BUNDLE BRANCH BLOCK [90+ ms QRS DURATION, TERMINAL R IN V1/V2, 40+ ms S IN I/aVL/V4/V5/V6] SEPTAL MYOCARDIAL INFARCTION , OF INDETERMINATE AGE [40+ ms Q WAVE IN V1/V2] ABNORMAL ECG UNCONFIRMED REPORT Electronically signed by : ONEIL PETERSEN, 12/04/2024 01:19:23
--- OUTSIDE RECORDS SUMMARY | 2024-12-01 16:46 | XMS_ITS | Encounter Summary ---
Author Organization [facility] In iatives Address [address] [place] [address] Care Team Providers Care Ear Flap Binder Name Role Phone Merlin Egan MD Primary Care Provider + [phone] Aj Valentine MD Primary Care Provider + [phone] Tim Rey MD Primary Care Provider + [phone] Encounter Details Date Type Department Care Team (Late st Contact Info) Description 03/13/2022 Transcribed Document [facility] [place] Family Medicine [address] [place] [address] ProviderRocael MD [address] [place] [address] Social History Tobacco Use Types Packs/Day Years Used Date Smoking Tobacco: Never Assessed Sex and Gender Information Value Date Recorded Sex Assigned at Not on file Legal Sex Male 11:25 AM CDT Gender Identity Not on file Sexual Orientation Not on file documented as of this encounter Miscellaneous Notes * Cerner Conversion Note - Historical ProviderMD - 03/13/2022 1:01 PM CDT Admission History, Adult Entered On: 03/13/2022 13:15 EDT Performed On: 03/13/2022 13:01 EDT by Landen Wilson RN-PATIENT CARE BEDSIDE NON-EXEMPT Advance Directive Patient has Advance Directive *Q : No, patient refuses Advance Directive information Landen Wilson RN-PATIENT CARE [facility] NON-EXEMPT - 03/13/2022 13:01 EDT Anesthesia/Transfusion History Family History of Anesthesia Reaction : Prior transfusion without reaction Transfusion History : Prior anesthesia without reaction Family History of Anesthesia Reaction : None Landen Wilson RN-PATIENT CARE [facility] NON-EXEMPT - 03/13/2022 13:01 EDT Functional Assessment Living Situation : Home Patient Lives With : Significant other(s) Current Home Treatments : None Landen Wilson RN-PATIENT CARE [facility] NON-EXEMPT - 03/13/2022 13:01 EDT General Info Support Person/Patient Supervisor Bottle House Cleaners : Yes Support Person/Pt Rep Name : Linda [phone] Want Family/Rep/Phys Notified of Admit : No Emergency Contact #1 : Hazel Bellamy Emergency Contact #1 Emergency Contact #1 Relationship : mom Emergency Contact #2 : none Emergency Contact #2 Phone Number : none Emergency Contact #2 Relationship : none Primary Language : Taiwanese Preferred Communication Mode : Verbal Communication Barrier : None House Servant Needed : No Landen Wilson RN-PATIENT CARE [facility] NON-EXEMPT - 03/13/2022 13:01 EDT Fall Risk Scales ABCs Fall Injury Risk Identification : None Injury Moderate to High Risk Interventions : Bed alarm on, Chair alarm on, Fall contract/letter per facility policy, Patient room close to nurses station, Personal alarm on, Specialty low bed, Supervise toileting as indicated, Toileting schedule LIMON Hx Falls Immediate/Within 3 Months : Yes [place] Secondary Diagnosis : Yes LIMON Use of Ambulatory Aid : None LIMON IV Therapy or IV Access : Yes [place] Gait/Transferring : Weak [place] Mental Status : Oriented to own ability [place] Fall Risk Score : 70 LIMON Fall Scale Risk Level : 46 or > High Risk [place] Fall Interventions : Adequate lighting, Assistive devices within reach, Bed in low position, Fall prevention handout/education per facility policy, Frequent orientation to call device, Frequent orientation to surroundings, Hourly comfort/safety rounds, Non-slip footwear, Personal items within reach, Reinforced to call for assistance before getting out of bed, Room free of clutter/spills, Wheels locked, Wires/Cords secured Fall Moderate to High Risk Interventions : Bed alarm on, Chair alarm on, Fall contract/letter per facility policy, High Risk for Fall sign in place per policy, Patient room close to nurses station, Supervise toileting as indicated, Transport methods appropriate to patient, Wrist band (fall risk) on Landen Wilson RN-PATIENT CARE BEDSIDE NON-EXEMPT - 03/13/2022 13:01 EDT Fall Risk Education Grid Alarms : Verbalizes understanding Assistive Equipment Use : Verbalizes understanding Bed Height/Stabilization : Verbalizes understanding Call light use : Verbalizes understanding Door Open : Verbalizes understanding Environmental Management : Verbalizes understanding Eyeglasses Use : Verbalizes understanding Fall Community Resources : Verbalizes understanding Fall Contract/Letter : Verbalizes understanding Fall Prevention in the Home : Verbalizes understanding Fall Prevention Protocol : Verbalizes understanding Home Risk Assessment : Verbalizes understanding Need Constant Observation : Verbalizes understanding Night Light Use : Verbalizes understanding Nonskid Footwear Use : Verbalizes understanding Notification of Staff When Leaving : Verbalizes understanding Orthostatic Hypotension Precautions : Verbalizes understanding Personal Article Availability : Verbalizes understanding Prevention Responsibility Family : Verbalizes understanding Prevention Responsibility Patient : Verbalizes understanding Risk Alert Methods : Verbalizes understanding Risk Factors : Verbalizes understanding Safety Aids : Verbalizes understanding Siderails use/risks : Verbalizes understanding Special Assistive Devices : Verbalizes understanding Staff Responsiveness : Verbalizes understanding Symptom Identification & Action Plan *Q : Verbalizes understanding Symptom Reporting : Verbalizes understanding Toileting Schedule : Verbalizes understanding Transfer/Mobility Techniques : Verbalizes understanding Urinal/Bedpan Availability : Verbalizes understanding Wait for Assistance : Verbalizes understanding Wheelchair Safety : Verbalizes understanding Landen Wilson RN-PATIENT CARE BEDSIDE NON-EXEMPT - 03/13/2022 13:01 EDT Barriers to Learning : Acuity of Illness Individuals Taught : Patient Readiness to Learn : Cooperative Teaching Method : Explanation Learning Style Preferences Family : Verbal explanation Learning Style Preferences Patient : Verbal explanation Teaching Evaluation : Verbalizes understanding Fall Risk Scale Calc Temp : 0 Landen Wilson RN-PATIENT CARE BEDSIDE NON-EXEMPT - 03/13/2022 13:01 EDT Health Histories Smoking Status : 10 or more cigarettes (1/2 pack or more)/day in last 30 days Smokeless Tobacco Status : Smokeless tobacco user within last 30 days Desires Tobacco Cessation Medication : Yes Landen Wilson RN-PATIENT CARE BEDSIDE NON-EXEMPT - 03/13/2022 13:01 EDT Social History (As Of: 03/13/2022 13:15:30 EDT) Tobacco: Smoking Status Current every day smoker. Five or more cigarettes per day Smoking Frequency Within Last 30 Days. Use in Last 12 Months: Cigarettes. Years of Use: 20. Packs/Tins Daily: 1. Used Tobacco, but Quit No. Second Hand Smoke Exposure: Yes. No Smokeless Tobacco Use in Last 30 Days. None Smokeless Tobacco Use History. (Last Updated: 02/07/2016 18:31:41 EDT by Dyan Huston, RERE) Alcohol: Alcohol Use History Yes. Date/Time of Last Drink: 2-3/month. Use in Last 12 Months: Yes. Alcohol Use Frequency Socially. Alcohol Use Comment last weekend last used. Desires Alcohol Cessation Medication Refuses FDA approved medications. (Last Updated: 02/07/2016 18:32:11 EDT by Dyan Huston RN) Substance Abuse: Drug Use Hx: No. Use in Last 12 Months: No. (Last Updated: 02/07/2016 18:32:15 EDT by Dyan Huston, RERE) Height and Weight, Clinical Dosing Height Source : Chart Height Entry Format : [place] Height, Feet : 5 ft(Converted to: 152 cm, 60 Inch) Height, Inches : 8 Inch(Converted to: 0 ft 8 Inch, 20.32 cm) Clinical Height : 172.72 cm Weight Source : Standing scale Weight Entry Format : Metric, kilograms Weight, Kilograms : 65.77 kg(Converted to: 145 lb 0 oz) Clinical Dosing Weight : 65.77 kg Body Surface Area (BSA) : 1.78 m2 Body Mass Index : 22 kg/m2 [place] Body Weight : 67 kg Landen Wilson RN-PATIENT CARE BEDSIDE NON-EXEMPT - 03/13/2022 13:01 EDT Infectious Disease History Does patient have symptoms of COVID-19? : No Tested for COVID19 in the past 14 days : Yes, Patient stated results Negative Does the Patient state known exposure to a COVID-19 positive case in the last 14 days? : No Patient Vaccinated for COVID-19 : Fully vaccinated Landen Wilson RN-PATIENT CARE BEDSIDE NON-EXEMPT - 03/13/2022 13:01 EDT Infectious Disease Risk Screening Grid Cough < 2 wks of unknown origin : NO Cough > 2 weeks : NO Blood in Sputum : NO Fever or self-reported Fever : NO Rash of unknown origin : NO Headache : NO Stiff neck : NO Night Sweats : NO Unexplained Weight Loss : NO Diarrhea (3 episode per day) : NO Landen Wilson RN-PATIENT CARE BEDSIDE NON-EXEMPT - 03/13/2022 13:01 EDT Physical contact outside [place] in the last 30 days : No Hospitalized in Foreign Country : No Infectious Disease History : None, Chicken pox/Shingles, Influenza INF Disease TB Screening Calc : 0 INF Disease Recent Travel Calc : 0 Landen Wilson RN-PATIENT CARE BEDSIDE NON-EXEMPT - 03/13/2022 13:01 EDT Tetanus Immunization Status Previous Tetanus Immunizations : No qualifying data available. Landen Wilson RN-PATIENT CARE BEDSIDE NON-EXEMPT - 03/13/2022 13:01 EDT Influenza Vaccine Asmt, Adult Previous Vaccines from Immunization Schedule : No qualifying data available. Influenza Immunization, Current Season : Yes Landen Wilson RN-PATIENT CARE BEDSIDE NON-EXEMPT - 03/13/2022 13:01 EDT Pneumococcal Vaccine Previous Vaccines from Immunization Schedule : No qualifying data available. Pneumonia Immunization Received : No Pneumococcal Risk Assessment < Age 65 : None Landen Wilson RN-PATIENT CARE BEDSIDE NON-EXEMPT - 03/13/2022 13:01 EDT Order Details Order Detail : N/A Patient Needs Meds Crushed/Liquid : No Landen Wilson RN-PATIENT CARE BEDSIDE NON-EXEMPT - 03/13/2022 13:01 EDT Nutrition History Eating Poorly Due to Decreased Appetite : No Unplanned Weight Loss in Past 3-6 Months : No Malnutrition Screening Tool Total(mal) : 0 Malnutrition Screening Tool Risk Level : Patient not at risk Landen Wilson RN-PATIENT CARE BEDSIDE NON-EXEMPT - 03/13/2022 13:01 EDT [place] Suicide Severity Rating Scale (C-SSRS) CSSRS Past Month Wish to be : No CSSRS Past Month Suicidal Thoughts : No CSSRS Lifetime Suicide Behavior : No Suicide Severity Rating Score : 0 Suicide Severity Rating : No Additional Care Required at this time Landen Wilson RN-PATIENT CARE BEDSIDE NON-EXEMPT - 03/13/2022 13:01 EDT Psychosocial History Do You Have a History of the Following? : Anxiety, Depression, Post Traumatic Stress Disorder Currently in Unsafe Situation : No Landen Wilson RN-PATIENT CARE BEDSIDE NON-EXEMPT - 03/13/2022 13:01 EDT Sleep Apnea Risk Assmt Hx of Obstructive Sleep Apnea Diagnosis : No Snore Loudly : No Tired, Fatigued, or Sleepy During Day : No Observed Stopping Breathing During Sleep : No Have/Are Being Treated for Hypertension : Yes BMI Greater Than 35 kg/m2 : No Age over 50 Years Old : No Neck Circumference Greater Than 40 cm : No Gender Male : Yes STOP-BANG Sleep Apnea Risk Level Score : 2 Landen Wilson RN-PATIENT CARE BEDSIDE NON-EXEMPT - 03/13/2022 13:01 EDT Valuables and Belongings Valuables and Belongings : Clothing, Personal items Clothing : Common streetwear Clothing Disposition : Bedside Personal Items : Cell phone Personal Items Disposition : With patient Landen Wilson RN-PATIENT CARE BEDSIDE NON-EXEMPT - 03/13/2022 13:01 EDT Electronically signed by Harshil Bowser Conversion Recreation Activities Coordinator Cerner at 10/10/2022 4:05 PM CDT documented in this encounter Plan of Treatment Not on file documented as of this encounter Visit Diagnoses Not on filedocumented in this encounter Care Teams Ear Flap Binder Relationship Specialty Start Date End Date Merlin Egan MD [address] [facility] [place] [address] PCP - General Family Medicine 04/18/22 12/12/23 Aj Valentine MD [address] [place] [address] PCP - General Adolescent Medicine 12/13/23 11/02/24 Tim Rey MD [address] [place] [address] PCP - General Family Medicine 11/03/24 documented as of this encounter
--- OUTSIDE RECORDS SUMMARY | 2024-12-01 16:46 | XMS_ITS | Encounter Summary ---
Author Organization [facility] [employer] Address [address] [place] [address] Care Team Providers Care Hotel Staff Member Name Role Phone Merlin Egan MD Primary Care Provider + [phone] Aj Valentine MD Primary Care Provider + [phone] Tim Rey MD Primary Care Provider + [phone] Encounter Details Date Type Department Care Team (Late st Contact Info) Description 03/13/2022 Transcribed Document [facility] Family Medicine [address] [place] [address] ProviderRocael MD [address] [place] [address] Social History Tobacco Use Types Packs/Day Years Used Date Smoking Tobacco: Never Assessed Sex and Gender Information Value Date Recorded Sex Assigned at Not on file Legal Sex Male 11:25 AM CDT Gender Identity Not on file Sexual Orientation Not on file documented as of this encounter Miscellaneous Notes * [employer]ner Conversion Note - Historical ProviderMD - 03/13/2022 1:17 PM CDT Pain Assessment Entered On: 03/13/2022 19:57 EDT Performed On: 03/13/2022 13:54 EDT by Landen Wilson RN-PATIENT CARE BEDSIDE NON-EXEMPT Intervention Information: morphine Performed by Landen Wilson RN-PATIENT CARE BEDSIDE NON-EXEMPT on 03/13/2022 13:24:00 EDT morphine,2mg IV Push,Left Hand,Pain (Severe 7-10) Pain Assessment Pain Assessment : Follow-up assessment Pain Scale Goal : 2 Landen Wilson RN-PATIENT CARE BEDSIDE NON-EXEMPT - 03/13/2022 19:57 EDT Electronically signed by [facility] Conversion Programmer Cerner at 10/15/2022 2:00 PM CDT documented in this encounter Plan of Treatment Not on file documented as of this encounter Visit Diagnoses Not on filedocumented in this encounter Care Teams Hotel Staff Member Relationship Specialty Start Date End Date Merlin Egan MD [address] [place] [address] [place] [address] PCP - General Family Medicine 04/18/22 12/12/23 Aj Valentine MD [address] [place] [address] PCP - General Adolescent Medicine 12/13/23 11/02/24 Tim Rey MD [address] [place] [address] PCP - General Family Medicine 11/03/24 documented as of this encounter
--- OUTSIDE RECORDS SUMMARY | 2024-12-01 16:46 | XMS_ITS | Encounter Summary ---
Author Organization [facility] [employer] Address [address] [place] [address] Care Team Providers Care Surgeon Partner Name Role Phone Merlin Egan MD Primary Care Provider + [phone] Aj Valentine MD Primary Care Provider + [phone] Tim Rey MD Primary Care Provider + [phone] Encounter Details Date Type Department Care Team (Late st Contact Info) Description 03/13/2022 Transcribed Document [facility] Family Medicine [address] [place] [address] ProviderRocael MD [address] [place] [address] Social History Tobacco Use Types Packs/Day [...] 1:17 PM CDT Pain Assessment Entered On: 03/15/2022 11:24 EDT Performed On: 03/15/2022 11:02 EDT by Landen Wilson RN-PATIENT CARE BEDSIDE NON-EXEMPT Intervention Information: oxyCODONE Performed by Landen Wilson RN-PATIENT CARE BEDSIDE NON-EXEMPT on 03/15/2022 10:02:00 EDT oxyCODONE,5mg Oral,Pain (Moderate 4-6) Pain Assessment Pain Assessment : Follow-up assessment Pain Scale Goal : 4 Pain Scale Used : 0-10 Scale Landen Wilson RN-PATIENT CARE BEDSIDE NON-EXEMPT - 03/15/2022 11:24 EDT Pain Scale Intensity : 0 Landen Wilson RN-PATIENT CARE BEDSIDE NON-EXEMPT - 03/15/2022 11:24 EDT Image 4 - Images currently included in the form version of this document have not been included in the text rendition version of the form. documented in this encounter Plan of Treatment Not on file documented as of this encounter Visit Diagnoses Not on filedocumented in this encounter Care Teams Surgeon Partner Relationship Specialty Start Date End Date Merlin Egan MD [address] [place] [address] PCP - General Family Medicine 04/18/22 12/12/23 Aj Valentine MD [address] [place] [address] PCP - General Adolescent Medicine 12/13/23 11/02/24 Tim Rey MD [address] [place] [address] PCP - General Family Medicine 11/03/24 documented as of this encounter
--- OUTSIDE RECORDS SUMMARY | 2024-12-01 16:46 | XMS_ITS | Referral Summary ---
Author Organization [facility] In iatives Address [address] [place] [address] Care Team Providers Care Foreclosure Field Inspector Name Role Phone Tim Rey MD Primary Care Provider [phone] Encounters Date Type Department Care Team Description 11/03/2024 Telephone [facility] [address] [place] [address] Tim Rey MD Hospital Follow Up 10/26/2024 12:59 PM EDT - 11/01/2024 2:11 PM EDT Hospital Encounter [facility] Intensive [facility] Unit [address] [place] [address] Michael Matthews MD Nuss, James, MD Calvo-Sainz, Ignacio F, MD Alcohol withdrawal seizure without complication (HCC) (Primary Dx); Alcohol withdrawal (HCC); Alcohol withdrawal syndrome with complication (HCC) Discharge Disposition: Rehab Facility 10/26/2024 Travel from Last 3 Months Allergies Active Allergy Reactions Criticality Noted Date Comments Aspirin Low 04/18/2022 Ibuprofen Low 10/26/2024 Cephalexin 10/26/2024 Piperacillin 08/17/2022 Tazobactam 08/17/2022 Piperacillin-Tazobactam Other (See Comments) He feels like he's on fire Medications buprenorphine-n aloxone (SUBOXONE) 8-[address] 2 tablets under the tongue daily. Active busPIRone (BUSPAR) 10 MG tablet Take 1 tablet (10 mg total) by mouth 2 (two) times daily. 5 Active Trelegy Ellipta 100-62.5-25 mcg dsdv 1 puff daily. Active folic acid (FOLVITE) 1 MG tablet Take 1 tablet (1 mg total) by mouth daily. 5 Active gabapentin (NEURONTIN) 100 MG capsule 1 capsule (100 mg total) 2 (two) times daily. Active hydrOXYzine (ATARAX) 25 MG tablet Take 1 tablet (25 mg total) by mouth 3 (three) times daily. Active levothyroxine (SYNTHROID) 50 MCG tablet Take 0.5 tablets (25 mcg total) by mouth daily. Active Creon 36,000-114,000- 180,000 unit cpDR capsule Take 1 capsule (36,000 units of lipase total) by mouth 3 (three) times daily with meals. Active miSOPROStoL (CYTOTEC) 200 tablet Take 1 tablet (200 mcg total) by mouth 2 (two) times daily. Active OLANZapine (ZYPREXA) 5 MG tablet Take 1 tablet (5 mg total) by mouth nightly. Active pantoprazole (PROTONIX) 40 MG tablet Take 1 tablet (40 mg total) by mouth 2 (two) times daily. Active venlafaxine (EFFEXOR) 37.5 MG tablet Take 1 tablet (37.5 mg total) by mouth 2 (two) times daily. Active MULTIVITAMIN WITH IRON ORAL Take 1 tablet by mouth daily. 5 Active thiamine 100 MG tablet Take 1 tablet (100 mg total) by mouth daily. Active sennosides (SENOKOT) 8.6 mg tablet Take 1 tablet (8.6 mg total) by mouth nightly. Active magnesium oxide (MAG-OX) 400 mg tablet Take 1 tablet (400 mg total) by mouth daily. Active polyethylene glycol (GLYCOLAX) 17 gram packet Take 17 g by mouth daily as needed. Active albuterol 90 mcg/actuation inhaler Inhale 2 puffs by mouth every 6 (six) hours as needed for wheezing or shortness of breath. 5 11/02/19 26 Active haloperidoL (HALDOL) 5 MG tablet Take 1 tablet (5 mg total) by mouth 2 (two) times daily for 30 days. 60 tablet 5 12/02/19 25 Active prazosin (MINIPRESS) 2 MG capsule Take 1 capsule (2 mg total) by mouth nightly for 30 days. 30 capsule 5 12/02/19 25 Active chlordiazePOXID E (LIBRIUM) 10 MG capsule Take 1 capsule (10 mg total) by mouth 3 (three) times daily for 3 days. Max Daily Amount: 30 mg 6 capsule 5 11/05/19 25 Active Problems Problem Noted Date Diagnosed Date Withdrawal seizures 10/26/2024 Anemia 12/10/2023 12/10/2023 Back pain 12/10/2023 12/10/2023 Gastroesophageal reflux disease 12/10/2023 12/10/2023 HTN (hypertension) 12/10/2023 12/10/2023 PTSD (post-traumatic stress disorder) 12/10/2023 12/10/2023 Tobacco abuse 12/10/2023 12/10/2023 Traumatic brain injury 12/10/2023 GI bleed 12/09/2023 Kidney stone 02/07/2016 12/10/2023 Overview (12/10/2023): From Automated Load;Provider: Weston Paniagua;Status: Active Social History Tobacco Use Types Packs/Day Years [...] your living situation today? I have a [facility] to live 10/26/2024 Think about the [...] Do you speak a language other than Khmer at [facility]? No 10/26/2024 Do you want help with [...] Mass Index 23.69 10/26/2024 12:56 PM EDT Plan of Treatment Not on file Medical Devices Implanted Type Area Motor Polarizer Device Identifier Shelf Expiration Date Model / Serial / Lot Stent Uret Braid + [id number] - [id number] Implanted:Qty : 1 on 04/18/2022 by Aj Gotti MD at [facility] IMPLANTS N/A: [employer]/GYNE COLOGY 06/26/2024 [id number] / / [id number] Description:STENT Procedures Procedure Name Priority Date/Time Associated Diagnosis Comments PHOSPHORUS Routine 10/31/2024 5:19 AM EDT MAGNESIUM Routine 10/31/2024 5:19 AM EDT BASIC METABOLIC PANEL Routine 10/31/2024 5:19 AM EDT CBC HEMOGRAM (SJ-BKR) Routine 10/31/2024 5:19 AM EDT PHOSPHORUS Routine 10/29/2024 5:54 AM EDT MAGNESIUM Routine 10/29/2024 5:54 AM EDT COMPREHENSIVE METABOLIC PANEL Routine 10/29/2024 5:54 AM EDT CBC HEMOGRAM (SJ-BKR) Routine 10/29/2024 5:54 AM EDT COMPREHENSIVE METABOLIC PANEL Routine 10/28/2024 5:42 AM EDT CBC W/ AUTO DIFF Routine 10/28/2024 5:41 AM EDT TSH Routine 10/27/2024 6:00 AM EDT CBC W/ AUTO DIFF Routine 10/27/2024 6:00 AM EDT BASIC METABOLIC PANEL Routine 10/27/2024 6:00 AM EDT MAGNESIUM Routine 10/27/2024 6:00 AM EDT PROBNP Routine 10/27/2024 6:00 AM EDT URINALYSIS MICROSCOPIC STAT 2:07 PM EDT TRIAGE DRUG SCREEN, URINE STAT 10/26/2024 2:07 PM EDT URINALYSIS, REFLEX MICROSCOPIC AND CULTURE IF INDICATED STAT 10/26/2024 2:07 PM EDT ETHANOL STAT 10/26/2024 1:59 PM EDT HIGH SENSITIVITY TROPONIN I STAT 10/26/2024 1:59 PM EDT MAGNESIUM STAT 10/26/2024 1:59 PM EDT LIPASE STAT 10/26/2024 1:59 PM EDT COMPREHENSIVE METABOLIC PANEL STAT 10/26/2024 1:59 PM EDT CBC W/ AUTO DIFF STAT 10/26/2024 1:[address] LUMBAR SPINE WITHOUT IV CONTRAST STAT 10/26/2024 1:[address] CERVICAL SPINE WITHOUT IV CONTRAST STAT 10/26/2024 1:[address] BRAIN WITHOUT IV CONTRAST STAT 10/26/2024 1:40 PM EDT XR CHEST 1 VIEW PORTABLE / BEDSIDE STAT 10/26/2024 1:34 PM EDT [facility] Routine 10/26/2024 1:01 PM EDT HIV 1/2 AG/AB COMBO Routine 12/09/2023 6 :08 PM EDT LIPID PANEL Routine 12/09/2023 6:07 PM EDT HEPATITIS PANEL, ACUTE Routine 6:06 PM EDT from Last 3 Months or Most Recently Relevant to Health Maintenance Results * (ABNORMAL) CBC - Hemogram (SJ-BKR) (10/31/2024 5:19 AM EDT) Only the most recent of2 resultswithin the time period is included. WBC 6.6 4.0 - 10.5 K/ L 10/31/2024 5:46 AM EDT [facility] RBC 4.11(L) 4.70 - 6.00 M/ L 10/31/2024 5:46 AM EDT [facility] Hemoglobin 12.0(L) 13.2 - 18.0 GM/DL 10/31/2024 5:46 AM EDT [facility] Hematocrit 39.3(L) 42.0 - 52.0 % 10/31/2024 5:46 AM EDT [facility] MCV 96 78 - 100 fL 10/31/2024 5:46 AM EDT [facility] MCH 29.2 27.0 - 31.0 pg 10/31/2024 5:46 AM EDT [facility] MCHC 30.5(L) 32.0 - 36.0 GM/DL 10/31/2024 5:46 AM EDT [facility] RDW 14.8(H) 11.5 - 14.0 % 10/31/2024 5:46 AM EDT [facility] Platelets 215 150 - 400 K/CU MM 10/31/2024 5:46 AM [facility] MPV 10.3(H) 6.0 - 9.5 fL 10/31/2024 5:46 AM T [facility] nRBC 0 /100 WBC 10/31/2024 5:46 AM [facility] Blood Venipuncture / Unknown 10/31/2024 5:19 AM EDT 10/31/2024 5:40 AM EDT us Piyush Frey MD LAB BLOOD ORDERABLES Fi nal Result [facility] [address] [phone] * (ABNORMAL) Phosphorus (10/31/2024 5:19 AM EDT) Only the most recent of2 resultswithin the time period is included. Phosphorus 4.9(H) 2.6 - 4.7 mg/dL 10/31/2024 6:08 AM EDT [facility] Blood Venipuncture / Unknown 10/31/2024 5:19 AM EDT 10/31/2024 5:40 AM EDT us Piyush Frey MD LAB BLOOD ORDERABLES Fi nal Result Performing Organization Address City/[facility]/ZIP Code Phone Number [facility] [address] [phone] * (ABNORMAL) Magnesium (10/31/2024 5:19 AM EDT) Only the most recent of4 resultswithin the time period is included. Magnesium 1.6(L) 1.8 - 2.4 mg/dL 10/31/2024 6:08 AM EDT [facility] Blood Venipuncture / Unknown 10/31/2024 5:19 AM EDT 10/31/2024 5:40 AM EDT us Piyush Frey MD LAB BLOOD ORDERABLES Fi nal Result Performing Organization Address City/[facility]/ZIP Code Phone Number [facility] [address] [phone] * (ABNORMAL) Basic Metabolic Panel (10/31/2024 5:19 AM EDT) Only the most recent of2 resultswithin the time period is included. Sodium 136 136 - 145 meq/L 10/31/2024 6:08 AM EDT [facility] Potassium 5.1 3.5 - 5.1 meq/L 10/31/2024 6:08 AM EDT [facility] Chloride 103 98 - 107 meq/L 10/31/2024 6:08 AM EDT [facility] CO2 28 21 - 32 meq/L 10/31/2024 6:08 AM EDT [facility] Anion Gap 10(L) 11 - 21 10/31/2024 6:08 AM EDT [facility] BUN 14 7 - 18 mg/dL 10/31/2024 6:08 AM EDT [facility] Creatinine 0.68 0.67 - 1.17 mg/dL 10/31/2024 6:08 AM EDT [facility] BUN/Creatinine 21 10/31/2024 6:08 AM EDT [facility] Glucose 93 74 - 106 mg/dL 10/31/2024 6:08 AM T [facility] Calcium 9.1 8.5 - 10.1 mg/dL 10/31/2024 6:08 AM EDT [facility] Osmolality Calc 272.1 mOsm/kg 6:08 AM [facility] eGFR (mL/min/1.73m2) >60 >=60 mL/min/1.7 3m2 10/31/2024 6:08 AM T [facility] Comment:eGFR of <60 suggests chronic kidney disease if found over a 3 month period of time. eGFR <15 indicates renal failure. Blood Venipuncture / Unknown 10/31/2024 5:19 AM EDT 10/31/2024 5:40 AM EDT us Piyush Frey MD LAB BLOOD ORDERABLES Fi nal Result [facility] [address] [phone] * (ABNORMAL) Comprehensive metabolic panel (10/29/2024 5:54 AM EDT) Only the most recent of3 resultswithin the time period is included. Sodium 135(L) 136 - 145 meq/L 10/29/2024 6:24 AM EDT [facility] Potassium 4.5 3.5 - 5.1 meq/L 10/29/2024 6:24 AM EDT [facility] Chloride 100 98 - 107 meq/L 10/29/2024 6:24 AM [facility] CO2 28 21 - 32 meq/L 10/29/2024 6:24 AM [facility] Calcium 9.4 8.5 - 10.1 mg/dL 10/29/2024 6:24 AM [facility] Glucose 115(H) 74 - 106 mg/dL 10/29/2024 6:24 AM [facility] BUN 8 7 - 18 mg/dL 10/29/2024 6:24 AM [facility] Creatinine 0.64(L) 0.67 - 1.17 mg/dL 10/29/2024 6:24 AM [facility] BUN/Creatinine 13 10/29/2024 6:24 AM [facility] Albumin 3.1(L) 3.4 - 5.0 g/dL 10/29/2024 6:24 AM [facility] Alkaline Phosphatase 83 46 - 116 U/L 10/29/2024 6:24 AM [facility] ALT 16 16 - 63 U/L 10/29/2024 6:24 AM [facility] AST 26 15 - 37 U/L 10/29/2024 6:24 AM [facility] Total Bilirubin 0.4 0.2 - 1.0 mg/dL 10/29/2024 6:24 AM [facility] Protein, Total 7.3 6.4 - 8.2 gm/dL 10/29/2024 6:24 AM [facility] Anion Gap 12 11 - 21 10/29/2024 6:24 AM [facility] A/G Ratio 0.7 10/29/2024 6:24 AM [facility] Globulin 4.2 g/dL 10/29/2024 6:24 AM [facility] Osmolality Calc 269.3 mOsm/kg 6:24 AM [facility] eGFR (mL/min/1.73m2) >60 >=60 mL/min/1.7 3m2 10/29/2024 6:24 AM [facility] Comment:ESTIMATED GFR IS NOT ACCURATE CREATININE CLEARANCE IN PREDICTING GLOMERULAR FILTRATION RATE. ESTIMATED GFR IS NOT APPLICABLE FOR DIALYSIS PATIENTS. Blood Venipuncture / Unknown 10/29/2024 5:54 AM EDT 10/29/2024 5:57 AM EDT us Piyush Frey MD LAB BLOOD ORDERABLES Fi nal Result [facility] [address] [phone] * (ABNORMAL) CBC with automated diff (10/28/2024 5:41 AM EDT) Only the most recent of3 resultswithin the time period is included. WBC 8.3 4.0 - 10.5 K/ L 10/28/2024 6:44 AM EDT [facility] RBC 4.04(L) 4.70 - 6.00 M/ L 10/28/2024 6:44 AM EDT [facility] Hemoglobin 12.1(L) 13.2 - 18.0 GM/DL 10/28/2024 6:44 AM T [facility] Hematocrit 37.9(L) 42.0 - 52.0 % 10/28/2024 6:44 AM T [facility] MCV 94 78 - 100 fL 10/28/2024 6:44 AM EDT [facility] MCH 30.0 27.0 - 31.0 pg 10/28/2024 6:44 AM T [facility] MCHC 31.9(L) 32.0 - 36.0 GM/DL 10/28/2024 6:44 AM T [facility] RDW 14.6(H) 11.5 - 14.0 % 10/28/2024 6:44 AM T [facility] Platelets 161 150 - 400 K/CU MM 10/28/2024 6:44 AM EDT [facility] MPV 12.4(H) 6.0 - 9.5 fL 10/28/2024 6:44 AM EDT [facility] Nucleated Red Blood Cell 0.0 0 - 0.2 % 10/28/2024 6:44 AM T [facility] % Neutros 62 41 - 80 % 10/28/2024 6:44 AM T [facility] % Lymphs 25 15 - 48 % 10/28/2024 6:44 AM [facility] % Monos 8 0 - 12 % 10/28/2024 6:44 AM [facility] % Eos 4 0 - 5 % 10/28/2024 6:44 AM T [facility] % Baso 1 0 - 2 % 10/28/2024 6:44 AM [facility] # Neutros 5.12 1.56 - 6.13 K/ L 10/28/2024 6:44 AM [facility] # Lymphs 2.06 K/ L 10/28/2024 6:44 AM [facility] # Monos 0.69 0.24 - 0.86 K/ L 10/28/2024 6:44 AM [facility] # Eos 0.29 0.04 - 0.54 K/ L 10/28/2024 6:44 AM [facility] # Baso 0.06 0.01 - 0.08 K/ L 10/28/2024 6:44 AM [facility] Immature Granulocytes-Re lative 0.40 0.00 - 0.60 % 10/28/2024 6:44 AM [facility] # IG 0.03 0.00 - 0.05 K/uL 10/28/2024 6:44 AM [facility] Blood Venipuncture / Unknown 10/28/2024 5:41 AM EDT 10/28/2024 6:31 AM EDT [facility] - 10/28/2024 6:44 AM EDT When [...] Blast? Flag noted Atypical Lymph flag noted Hue Granger APRN LAB BLOOD ORDERABLES Final Re sult Performing Organization Address [facility]/ZIP Code Phone Number [facility] [address] [place] [address], [facility] [phone] * (ABNORMAL) PROBNP (10/27/2024 6:00 AM EDT) ProBNP (pg/mL) 151(H) <125 pg/mL 10/27/2024 6:40 AM EDT [facility] Blood Venipuncture / Unknown 10/27/2024 6:00 AM EDT 10/27/2024 6:06 AM EDT Michael Corral MD LAB BLOOD ORDERABLES Final Resul t Performing Organization Address [facility] Phone Number [facility] [address] [place] [address], [facility] [phone] * TSH (10/27/2024 6:00 AM EDT) TSH 1.599 0.358 - 3.740 uIU/mL 10/27/2024 6:40 AM EDT [facility] Blood Venipuncture / Unknown 10/27/2024 6:00 AM EDT 10/27/2024 6:06 AM EDT us Michael Corral MD LAB BLOOD ORDERABLES Final Resul t Performing Organization Address [facility]/ZIP Code Phone Number [facility] [address] [place] [address], [facility] [phone] * (ABNORMAL) Urinalysis, Reflex Microscopic and Culture If Indicated (10/26/2024 2:07 PM EDT) Color, UA Yellow 10/26/2024 2:18 PM EDT [facility] Clarity, UA Clear 10/26/2024 2:18 PM EDT [facility] Specific [place], UA 1.015 1.005 - 1.030 10/26/2024 2:18 PM EDT [facility] pH, UA 6.0 5.0 - 9.0 10/26/2024 2:18 PM EDT [facility] Leukocytes, UA Negative Negative 10/26/2024 2:18 PM EDT [facility] Nitrite, UA Negative Negative 10/26/2024 2:18 PM EDT [facility] Protein, UA Negative Negative 10/26/2024 2:18 PM EDT [facility] Glucose, UA Negative Negative 10/26/2024 2:18 PM EDT [facility] Ketones, UA Negative Negative 10/26/2024 2:18 PM EDT [facility] Bilirubin, UA Negative Negative 10/26/2024 2:18 PM EDT [facility] Blood, UA Trace(A) Negative 10/26/2024 2:18 PM EDT [facility] Urobilinogen, UA 0.2 mg/dL Normal 10/26/2024 2:18 PM EDT [facility] Specimen Source Urine, Clean Catch 10/26/2024 2:18 PM EDT [facility] Urine URINE SPECIMEN COLLECTION, CLEAN CATCH / Unknown 10/26/2024 2:07 PM EDT 10/26/2024 2:10 PM EDT Sydni Blancas PA-C URINE ORDERABLES Final Result [facility] [address] [phone] * (ABNORMAL) Triage Drug Screen, Urine (10/26/2024 2:07 PM EDT) Amphetamine Urine Negative Negative 025 2:18 PM EDT [facility] Barbiturate Screen Negative Negative 2024 2:18 PM EDT [facility] Benzodiazepine Screen Positive(A ) Negative 10/26/2024 2:18 PM EDT [facility] Cocaine (Metab.) Screen Negative Negative 10/26/2024 2:18 PM EDT [facility] MDMA Ur Negative Negative 10/26/2024 2:18 PM EDT [facility] Methadone Screen Negative Negative 10/27/19 2:18 PM EDT [facility] Opiate Screen Negative Negative 10/26/2024 2:18 PM EDT [facility] Phencyclidine Screen Negative Negative 09/2024 2:18 PM EDT [facility] Tricyclic Screen Negative Negative 10/27/19 2:18 PM EDT [facility] Tetrahydrocannabinol Negative Negative 09/2024 2:18 PM EDT [facility] Methamphetamine Screen Negative Negative 2:18 PM EDT [facility] Oxycodone Screen Negative Negative 10/27/19 2:18 PM EDT [facility] Urine 10/26/2024 2:07 PM EDT 10/26/2024 2:10 PM EDT Narrative [facility] - 10/26/2024 2:18 PM EDT [...] Sydni Blancas PA-C URINE ORDERABLES Final Result [facility] [address] [phone] * (ABNORMAL) Urinalysis Microscopic Only (10/26/2024 2:07 PM EDT) WBC, UA 0-5 None Seen, 0-5 /HPF 10/26/2024 2:30 PM EDT [facility] RBC, UA 6-10(A) None Seen, Rare /HPF 10/26/2024 2:30 PM EDT [facility] Bacteria, UA Trace(A) None Seen 10/26/2024 2:30 PM EDT [facility] Mucus Trace Trace 10/26/2024 2:30 PM EDT [facility] SQUAMOUS EPITHELIAL Rare None Seen, Rare /HPF 10/26/2024 2:30 PM EDT [facility] Urine URINE SPECIMEN COLLECTION, CLEAN CATCH / Unknown 10/26/2024 2:07 PM EDT 10/26/2024 2:10 PM EDT Sydni BHAGAT-C URINE ORDERABLES Final Result Performing Organization Address City/[facility]/ZIP Code Phone Number [facility] [address] [phone] * (ABNORMAL) High Sensitivity Troponin I (10/26/2024 1:59 PM EDT) Pathologist [facility] Troponin I High Sensitivity (pg/mL) <4(L) 4 - 60.3 pg/mL 10/26/2024 2:30 PM EDT [facility] Comment: Troponin Result (pg/mL) *Interpretation [...] ORDERABLES Final Resul t Performing Organization Address City/[facility]/ZIP Code Phone Number [facility] [address] [place] [address], [facility] [phone] * Lipase (10/26/2024 1:59 PM EDT) Pathologist [facility] Lipase 68 16 - 77 U/L 10/26/2024 2:46 PM EDT [facility] Blood Venipuncture / Unknown 10/26/2024 1:59 PM EDT 10/26/2024 2:02 PM EDT us Sydni Blancas PA-C LAB BLOOD ORDERABLES Final Resul t Performing Organization Address [facility]/ZIP Code Phone Number [facility] [address] [phone] * Ethanol (10/26/2024 1:59 PM EDT) Ethanol Lvl <3 <3 mg/dL 10/26/2024 2:45 PM EDT [facility] Blood Venipuncture / Unknown 10/26/2024 1:59 PM EDT 10/26/2024 2:02 PM EDT Narrative [facility] - 10/26/2024 2:45 PM EDT Lower limit of detection is 10.00 mg/dL. 50-100 mg/dL
Impaired Reflexes: 100-300 mg/dL
Depression of IDENTITY MANAGEMENT CONSULTANT: 300 mg/dL or >
Coma may occur; 400 mg/dL or >
may occur

This test is not intended for legal purposes or use in employment related testing. Sydni Blancas OLAYINKA-C LAB BLOOD ORDERABLES Final Resul t Performing Organization Address [facility]/ZIP Code Phone Number [facility] [address] [place] [address], [facility] [phone] * CT brain without IV contrast (10/26/2024 [...] Stephy Hanson. Transcribed by Rene Diallo(R). Sydni Yonny SHANNON IMG CT ORDERABLES Final Result * CT spine lumbar without IV contrast [...] Transcribed by Rene Diallo(R). Sydni Blancas PA-C IM CT ORDERABLES Final Result * CT cervical [...] Transcribed by Rene Diallo(R). Sydni Blancas PA-C IMYvonne CT ORDERABLES Final Result * XR chest [...] Transcribed by Rene Diallo(R). Sydni Blancas PA-C IMYvonne DIAGNOSTIC IMAGING ORDERABLE S Final Result * Critical Care (10/26/2024 1:01 PM EDT) Narrative Michael Matthews MD - 10/26/2024 1:01 PM EDT Sydni [...] old charts Care discussed with: admitting provider Michael Matthews MD PROCEDURE/MINOR SURGICAL ORDER ELIZA Final Result * HIV 1/2 AG/AB COMBO (12/09/2023 6:08 PM EDT) HIV-1 P24 Antigen Nonreactive Nonreactive 12/09/2023 7:54 PM EDT [facility] Comment: The Combo HIV procedure is a fourth generation HIV test which detects BOTH p24 antigen AND HIV antibodies to HIV virus types 0, 1, and 2. A reactive result does not distinguish between the antigen or the antibody and does not specify which antibody is present. Additional testing is required to differentiate the component causing the reactive result. Biotin supplements can cause clinically significant incorrect lab results. The FDA has seen an increase in the number of adverse events related to biotin interference with lab tests. Blood Venipuncture / Unknown 12/09/2023 6:08 PM EDT 12/09/2023 6:21 PM EDT Result [facility] Jose Desai MD LAB BLOOD ORDERABLES Final Result Performing Organization Address City/State/[facility] Co de Phone Number [facility] [address] [phone] * Lipid panel (12/09/2023 6:07 PM EDT) Triglycerides 31 0 - 249 mg/dL 12/09/2023 9:24 PM EDT [facility] Cholesterol 87 0 - 199 mg/dL 12/09/2023 9:24 PM EDT [facility] Comment: 200 to 239 mg/dL = Moderate (borderline) >239 mg/dL = High HDL Cholesterol 56 >=40 mg/dL 9:24 PM EDT [facility] Comment: >=60 mg/dL = Desirable <40 mg/dL = Increased Risk All other components are listed individually or are calculations VLDL Cholesterol 6.2 5 - 40 mg/dL 12/09/2023 9:24 PM EDT [facility] Cholesterol/HDL ratio 1.6 0.0 - 3.2 12/09/2023 9:24 PM EDT [facility] LDl/HDL Ratio 0 0 - 4 12/09/2023 9:24 PM EDT [facility] RISK COMP 2 12/09/2023 9:24 PM EDT [facility] LDL Cholesterol, Calculated 25 0 - 99 mg/dL 12/09/2023 9:24 PM EDT [facility] Blood Venipuncture / Unknown 12/09/2023 6:07 PM EDT 12/09/2023 6:21 PM EDT us Jose Desai MD LAB BLOOD ORDERABLES Final Result Performing Organization Address City/State/[facility] Co de Phone Number [facility] [address] [phone] * (ABNORMAL) Hepatitis panel, acute (12/09/2023 6:06 PM EDT) Hep A IgM Nonreactive Nonreactive, Equivocal 12/09/2023 8:26 PM EDT [facility] Hep B C IgM Nonreactive Nonreactive 12/09/2023 8:26 PM EDT [facility] Hepatitis B surface antigen Nonreactive Nonreactive, Equivocal 12/09/2023 8:26 PM EDT [facility] Hepatitis C Ab Reactive(A) Nonreactive, Equivocal 12/09/2023 8:26 PM EDT [facility] Blood Venipuncture / Unknown 12/09/2023 6:06 PM EDT 12/09/2023 6:21 PM EDT Narrative [facility] - 12/09/2023 8:26 PM EDT Hepatitis A Antibody IgM: (a) A negative test result does not exclude the possibility of exposure to the hepatitis A virus. (b) This test can be used to determine if a patient has or recently had an acute or asymptomatic hepatitis A infection. (c) A reactive result does not exclude co-infection by another hepatitis virus. Biotin supplements can cause clinically significant incorrect lab results. The FDA has seen an increase in the number of adverse events related to biotin interference with lab tests. Hepatitis B Core Antibody IgM: A reactive anti-HBc IgM result does not exclude co-infection by another hepatitis virus. Biotin supplements can cause clinically significant incorrect lab results. The FDA has seen an increase in the number of adverse events related to biotin interference with lab tests. Hepatitis B Surface Antibody Qual: This test does not differentiate between a vaccine induced immune response and an immune response induced by infection with HBV. Individuals that have received blood component therapies, (e.g. whole blood, plasma, immunoglobulin) administered during the previous 3 to 6 months may have a false reactive anti HBs due to passive transfer of anti HBs. A positive anti HBs result does not exclude co infection by another hepatitis virus. Biotin supplements can cause clinically significant incorrect lab results. The FDA has seen an increase in the number of adverse events related to biotin interference with lab tests. Hepatitis B Surface Antigen: This test may not detect all HBV mutants. If acute or chronic HBV infection is suspected and this test is non-reactive other HBV markers should be tested. Biotin supplements can cause clinically significant incorrect lab results. The FDA has seen an increase in the number of adverse events related to biotin interference with lab tests. Hepatitis C Antibody: A negative test result does not exclude the possibility of exposure to the hepatitis C virus and a reactive result does not exclude co-infection by another hepatitis virus. Biotin supplements can cause clinically significant incorrect lab results. The FDA has seen an increase in the number of adverse events related to biotin interference with lab tests. Jose Desai MD LAB BLOOD ORDERABLES Final Result [facility] [address] [place] [address], [facility] [phone] from Last 3 Months or Most Recently Relevant to Health Maintenance Insurance MEDICAID OF [place] [facility] ACCESS HMO MAP Advance Directives For more information, please contact: [phone] Documents on File Type Date Recorded Patient Schedule Hanger Expl anation Advance Directives and Livin g Will 04/18/2022 10:13 AM * Full Code (Latest Code Status on File) Date Activated Date Inactivated Comments 12/09/2023 1:56 PM 12/12/2023 1:00 PM Care Teams Foreclosure Field Inspector Relationship Specialty Start Date End Date Tim Rey MD [address] [place] [address] [place] [address] PCP - General Family Medicine 11/03/24
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
--- OUTSIDE RECORDS SUMMARY | 2024-12-01 16:46 | XMS_ITS | Encounter Summary ---
Author Organization [facility] [employer] Address [address] [place] [address] Care Team Providers Care Traveling Buyer Name Role Phone Tim Rey MD Primary Care Provider [phone] Reason for Visit * Reason Onset Date Comments Hospital Follow Up 11/03/2024 Encounter Details Date Type Department Care Team (Late st Contact Info) Description 11/03/2024 Telephone [facility] [address] [place] [address] Tim Rey MD [address] [facility] [address] [place] [address] Hospital Follow Up Social History Tobacco Use Types Packs/Day Years Used Date Smoking Tobacco: Former Cigarettes 0.5 35 S tarted: 11/23/1989 Smokeless Tobacco: Never Alcohol Use Standard Drinks/Week Comments Yes 12 [...] Do you speak a language other than [place]an at [facility]? No 10/26/2024 Do you want help [...] as of this encounter Miscellaneous Notes * Telephone Encounter - Jo-Ann Blackwood - 11/03/2024 12:49 PM EDT Hospital Follow-Up Appointment(s): What was Scheduled: PCP Number Called: [phone] Phone Call Results: Called and straight to voicemail. Unable to leave voicemail because mailbox is full. Email sent: No Email on file Additional information: N/A Caller Name: Jo-Ann documented in this encounter Plan of Treatment Not on file documented as of this encounter Visit Diagnoses Not on filedocumented in this encounter Care Teams Traveling Buyer Relationship Specialty Start Date End Date Tim Rey MD [address] [place] [address] PCP - General Family Medicine 11/03/24 documented as of this encounter
--- OUTSIDE RECORDS SUMMARY | 2024-12-01 16:46 | XMS_ITS | Encounter Summary ---
Author Organization [facility] In [employer] Address [address] [place] [address] Care Team Providers Care Senior Counsel Name Role Phone Merlin Egan MD Primary Care Provider + [phone] Aj Valentine MD Primary Care Provider + [phone] Tim Rey MD Primary Care Provider + [phone] Encounter Details Date Type Department Care Team (Late st Contact Info) Description 03/13/2022 Transcribed Document [facility] [place] Family Medicine [address] [place] [address] ProviderRocael MD [address] [place] [address] Social History Tobacco Use Types Packs/Day Years Used Date Smoking Tobacco: Never Assessed Sex and Gender Information Value Date Recorded Sex Assigned at Not on file Legal Sex Male 11:25 AM CDT Gender Identity Not on file Sexual Orientation Not on file documented as of this encounter Miscellaneous Notes * Cerner Conversion Note - Historical ProviderMD - 03/13/2022 1:17 PM CDT Consult Phone Call Documentation Entered On: 03/13/2022 14:48 EDT Performed On: 03/13/2022 13:17 EDT by Yamilka Vega, Tier Lift Operator-Health Unit Coord Phone Call for Consults Consult Reason : chestpain, hx cocaine, tob, etoh, amphetamine Physician Requesting Consult : ZEINAB DAWSON MD-INT Physician Requested for Consult : KENJI MENDOZA MD-CAR Date and Time Call Returned : 03/13/2022 14:45 EDT Yamilka Vega, Tier Lift Operator-Health Unit [facility] - 03/13/2022 14:45 EDT Electronically signed by [facility], [facility] Conversion Athletics Director Cerner at 10/10/2022 4:00 PM CDT documented in this encounter Plan of Treatment Not on file documented as of this encounter Visit Diagnoses Not on filedocumented in this encounter Care Teams Senior Counsel Relationship Specialty Start Date End Date Merlin Egan MD [address] [place] [address] [place] [address] PCP - General Family Medicine 04/18/22 12/12/23 Aj Valentine MD [address] [place] [address] PCP - General Adolescent Medicine 12/13/23 11/02/24 Tim Rey MD [address] [place] [address] PCP - General Family Medicine 11/03/24 documented as of this encounter
--- OUTSIDE RECORDS SUMMARY | 2024-12-01 16:46 | XMS_ITS | Encounter Summary ---
Author Organization [facility] [employer] Address [address] [place] [address] Care Team Providers Care Travel Services Professional Name Role Phone Aj Valentine MD Primary Care Provider + [phone] Encounter Details Date Type Department Care Team (Latest Contact Info) Description 10/26/2024 Travel Social History Tobacco Use Types Packs/Day Years [...] your living situation today? [facility] 10/26/2024 Think about the [...] Do you speak a language other than [place] at [facility]? No 10/26/2024 Do you want help [...] on file documented as of this encounter Plan of Treatment Not on file documented as of this encounter Visit Diagnoses Not on filedocumented in this encounter Care Teams Travel Services Professional Relationship Specialty Start Date End Date Aj Valentine MD [address] [place] [address] PCP - General Adolescent Medicine 12/13/23 11/02/24 documented as of this encounter
--- OUTSIDE RECORDS SUMMARY | 2024-12-01 16:46 | XMS_ITS | Encounter Summary ---
Author Organization [facility] [employer] Address [address] [place] [address] Care Team Providers Care Multifold Operator Name Role Phone Merlin Egan MD Primary Care Provider + [phone] Aj Valentine MD Primary Care Provider + [phone] Tim Rey MD Primary Care Provider + [phone] Encounter Details Date Type Department Care Team (Late st Contact Info) Description 03/15/2022 Transcribed Document [facility] [place] [address] [place] [address] ProviderRocael MD [address] [place] [address] Social History Tobacco Use Types Packs/Day Years Used Date Smoking Tobacco: Never Assessed Sex and Gender Information Value Date Recorded Sex Assigned at Not on file Legal Sex Male 11:25 AM CDT Gender Identity Not on file Sexual Orientation Not on file documented as of this encounter Miscellaneous Notes * Cerner Conversion Note - Historical ProviderMD - 03/15/2022 11:58 AM CDT Stroke/Warfarin Instructions Entered On: 03/15/2022 11:58 EDT Performed On: 03/15/2022 11:58 EDT by Landen Wilson RN-PATIENT CARE BEDSIDE NON-EXEMPT Stroke/Warfarin Instructions Stroke/TIA Discharge Ins : N/A Warfarin Discharge Ins : N/A Landen Wilson RN-PATIENT CARE BEDSIDE NON-EXEMPT - 03/15/2022 11:58 EDT documented in this encounter Plan of Treatment Not on file documented as of this encounter Visit Diagnoses Not on filedocumented in this encounter Care Teams Multifold Operator Relationship Specialty Start Date End Date Merlin Egan MD [address] [place] [address] [place] [address] PCP - General Family Medicine 04/18/22 12/12/23 Aj Valentine MD [address] [place] [address] PCP - General Adolescent Medicine 12/13/23 11/02/24 Tim Rey MD [address] [place] [address] PCP - General Family Medicine 11/03/24 documented as of this encounter
--- OUTSIDE RECORDS SUMMARY | 2024-12-01 16:46 | XMS_ITS | Encounter Summary ---
Author Organization [facility] [employer] Address [address] [place] [address] Care Team Providers Care Stenciler Name Role Phone Merlin Egan MD Primary Care Provider + [phone] Aj Valentine MD Primary Care Provider + [phone] Tim Rey MD Primary Care Provider + [phone] Encounter Details Date Type Department Care Team (Late st Contact Info) Description 03/15/2022 Transcribed Document [facility] [place] Family Medicine [address] [place] [address] ProviderRocael MD [address] [place] [address] Social History Tobacco Use Types Packs/Day Years Used Date Smoking Tobacco: Never Assessed Sex and Gender Information Value Date Recorded Sex Assigned at Not on file Legal Sex Male 11:25 AM CDT Gender Identity Not on file Sexual Orientation Not on file documented as of this encounter Miscellaneous Notes * Cerner Conversion Note - Historical ProviderMD - 03/15/2022 5:00 AM CDT Chart Check - Review Order Profile Entered On: 03/15/2022 6:28 EDT Performed On: 03/15/2022 5:00 EDT by Modesta Canada, RN Chart Check Powerplans Initiated/Discontinued as Appropriate : Yes All Active Orders Reviewed : Yes Modesta Canada RN - 03/15/2022 6:27 EDT Electronically signed by Niels, [facility] Conversion Director Asset Cerner at 10/10/2022 4:23 PM CDT documented in this encounter Plan of Treatment Not on file documented as of this encounter Visit Diagnoses Not on filedocumented in this encounter Care Teams Stenciler Relationship Specialty Start Date End Date Merlin Egan MD [address] [facility] [place] [address] PCP - General Family Medicine 04/18/22 12/12/23 Aj Valentine MD [address] [place] [address] PCP - General Adolescent Medicine 12/13/23 11/02/24 Tim Rey MD [address] [place] [address] PCP - General Family Medicine 11/03/24 documented as of this encounter
--- OUTSIDE RECORDS SUMMARY | 2024-12-01 16:46 | XMS_ITS | Encounter Summary ---
Author Organization [facility] [employer] Address [address] [place] [address] Care Team Providers Care Cancer Center Director Name Role Phone Merlin Egan MD Primary Care Provider + [phone] Aj Valentine MD Primary Care Provider + [phone] Tim Rey MD Primary Care Provider + [phone] Encounter Details Date Type Department Care Team (Late st Contact Info) Description 03/13/2022 Transcribed Document [facility] [place] [address] [place] [address] ProviderRocael MD [address] [place] [address] Social History Tobacco Use Types Packs/Day Years Used Date Smoking Tobacco: Never Assessed Sex and Gender Information Value Date Recorded Sex Assigned at Not on file Legal Sex Male 11:25 AM CDT Gender Identity Not on file Sexual Orientation Not on file documented as of this encounter Miscellaneous Notes * Cerner Conversion Note - Historical ProviderMD - 03/13/2022 12:47 PM CDT Consult Phone Call Documentation Entered On: 03/13/2022 13:39 EDT Performed On: 03/13/2022 12:47 EDT by Yamilka Vega Cyber Operator-Health Unit Coord Phone Call for Consults Consult Reason : kidney stones Physician Requesting Consult : ZEINAB DAWSON MD-INT Physician Requested for Consult : AJ HALL MD-URO Date and Time Call Returned : 03/13/2022 13:38 EDT Consult, Additional Information : Spoke with Sarayna on the phone concerning the consult. Yamilka Vega, Cyber Operator-Health Unit Coord - 03/13/2022 13:37 EDT Electronically signed by [facility], [facility] Conversion Behavioral Consultant Cerner at 10/10/2022 4:02 PM CDT documented in this encounter Plan of Treatment Not on file documented as of this encounter Visit Diagnoses Not on filedocumented in this encounter Care Teams Cancer Center Director Relationship Specialty Start Date End Date Merlin Egan MD [address] [place] [address] [place] [address] PCP - General Family Medicine 04/18/22 12/12/23 Aj Valentine MD [address] [place] [address] PCP - General Adolescent Medicine 12/13/23 11/02/24 Tim Rey MD [address] [place] [address] PCP - General Family Medicine 11/03/24 documented as of this encounter
--- OUTSIDE RECORDS SUMMARY | 2024-12-01 16:46 | XMS_ITS | Clinical Summary ---
Author Organization [facility] Address [address] [place] [address] Care Team Providers Care Deli Slicer Name Role Phone Tim Rey MD Primary Care Provider [phone] Allergies Active Allergy Reactions Criticality Noted Date [...] Ellipta 100-62.5-25 mcg dsdv 1 puff daily. 5 Active folic acid (FOLVITE) 1 MG tablet Take 1 tablet (1 mg total) by mouth daily. 5 Active gabapentin (NEURONTIN) 100 MG capsule 1 capsule (100 mg total) 2 (two) times daily. Active hydrOXYzine (ATARAX) 25 MG tablet Take 1 tablet (25 mg total) by mouth 3 (three) times daily. 5 Active levothyroxine (SYNTHROID) 50 MCG tablet Take 0.5 tablets (25 mcg total) by mouth daily. 5 Active Creon 36,000-114,000- 180,000 unit cpDR capsule Take 1 capsule (36,000 units of lipase total) by mouth 3 (three) times daily with meals. Active miSOPROStoL (CYTOTEC) 200 tablet Take 1 tablet (200 mcg total) by mouth 2 (two) times daily. Active OLANZapine (ZYPREXA) 5 MG tablet Take 1 tablet (5 mg total) by mouth nightly. 5 Active pantoprazole (PROTONIX) 40 MG tablet Take [...] (12/10/2023): From Automated Load;Provider: Weston Paniagua;Status: Active Encounters Date Type Department Care Team Description 11/03/2024 Telephone [facility] [address] [place] [address] Tim Rey MD Hospital Follow Up 10/26/2024 12:59 PM EDT - 11/01/2024 2:11 PM EDT Hospital Encounter [facility] [address] [place] [address] Michael Matthews MD Nuss, James, MD Calvo-Sainz, Ignacio F, MD Alcohol withdrawal seizure without complication (HCC) (Primary Dx); Alcohol withdrawal (HCC); Alcohol withdrawal syndrome with complication (HCC) Discharge Disposition: Rehab Facility 10/26/2024 Travel from Last 3 Months Family History Medical History Relation Name Comments Diabetes Mother Relation Name Status Comments Brother Alive Father Alive Mother Alive Sister Alive Social History Tobacco Use Types Packs/Day Years [...] Date Record ed How often does anyone, inclu ding family and friends, physically hurt you? Never [...] your living situation today? I have a amy place to live 10/26/2024 Think about [...] Do you speak a language other than Tog[place]ese at [place]? No 10/26/2024 Do you want help with [...] 10/26/2024 12:56 PM EDT Plan of Treatment Health Maintenance Due Date Last Done Comments CT Colonography 1974 Colonoscopy 1974 Colorectal Cancer Screening 1974 FOBT/FIT 1974 Fit-DNA (Cologuard) 1974 Sigmoidoscopy 1974 Depression Screening (12+) 1986 DTAP/TDAP/TD VACCINES (1 - Tdap) 1993 COVID-19 VACCINE (2 - season) 2024 Medicare Initial AWV [id number] 06/26/2024 Pneumococcal 50+ years (1 of 1 - PCV) 2024 Shingles Vaccine (Zoster) (1 of 2) 2024 Influenza Vaccine (Season Ended) 2025 Tobacco Cessation Counseling and Screening (12+) 10/2610/26/2024 Lipid Panel 12/08/2026 12/09/2023 HIV Screening Completed 12/09/2023 Hepatitis C Screening Completed 12/09/2023 Medical Devices Implanted Type Area Assembly Line Brazer Device Identifier Shelf Expiration Date Model / Serial / Lot Stent Uret Braid + [id number] - [id number] Implanted:Qty : 1 on 04/18/2022 by Aj Gotti MD at [facility] IMPLANTS N/A: [employer]:UROLOGY/GYNE COLOGY 06/26/2024 [id number] 20 / / [id number] Description:STENT Procedures Procedure Name Priority Date/Time Associated [...] 10.5 K/ L 10/31/2024 5:46 AM EDT [facility] RBC 4.11(L) 4.70 - 6.00 M/ L 10/31/2024 5:46 AM EDT [facility] Hemoglobin 12.0(L) 13.2 - 18.0 GM/DL 10/31/2024 5:46 AM EDT [facility] Hematocrit 39.3(L) 42.0 - 52.0 % 10/31/2024 5:46 AM EDT [facility] MCV 96 78 - 100 fL 10/31/2024 5:46 AM EDT [facility] MCH 29.2 27.0 - 31.0 pg 10/31/2024 5:46 AM EDT [facility] MCHC 30.5(L) 32.0 - 36.0 GM/DL 10/31/2024 5:46 AM EDT [facility] RDW 14.8(H) 11.5 - 14.0 % 10/31/2024 5:46 AM EDT [facility] Platelets 215 150 - 400 K/CU MM 10/31/2024 5:46 AM EDT [facility] MPV 10.3(H) 6.0 - 9.5 fL 10/31/2024 5:46 AM EDT [facility] nRBC 0 /100 WBC 10/31/2024 5:46 AM EDT [facility] Blood Venipuncture / Unknown 10/31/2024 5:19 AM EDT 10/31/2024 5:40 AM EDT us Piyush Frey MD LAB BLOOD ORDERABLES Fi nal Result Performing Organization Address City/[facility]/ZIP Code Phone Number [facility] [address] [place] [address], [facility] [phone] * (ABNORMAL) Phosphorus (10/31/2024 5:19 AM EDT) Only the most recent of2 resultswithin the time period is included. Phosphorus 4.9(H) 2.6 - 4.7 mg/dL 10/31/2024 6:08 AM EDT [facility] Blood Venipuncture / Unknown 10/31/2024 5:19 AM EDT 10/31/2024 5:40 AM EDT us Piyush Frey MD LAB BLOOD ORDERABLES Fi nal Result Performing Organization Address City/[facility]/ZIP Code Phone Number [facility] [address] [place] [address], [facility] [phone] * (ABNORMAL) Magnesium (10/31/2024 5:19 AM EDT) Only the most recent of4 resultswithin the time period is included. Magnesium 1.6(L) 1.8 - 2.4 mg/dL 10/31/2024 6:08 AM EDT [facility] Blood Venipuncture / Unknown 10/31/2024 5:19 AM EDT 10/31/2024 5:40 AM EDT us Piyush Frey MD LAB BLOOD ORDERABLES Fi nal Result [facility] [address] [phone] * (ABNORMAL) Basic Metabolic Panel (10/31/2024 5:19 AM EDT) Only the most recent of2 resultswithin the time period is included. Sodium 136 136 - 145 meq/L 10/31/2024 6:08 AM [facility] Potassium 5.1 3.5 - 5.1 meq/L 10/31/2024 6:08 AM [facility] Chloride 103 98 - 107 meq/L 10/31/2024 6:08 AM [facility] CO2 28 21 - 32 meq/L 10/31/2024 6:08 AM [facility] Anion Gap 10(L) 11 - 21 10/31/2024 6:08 AM [facility] BUN 14 7 - 18 mg/dL 10/31/2024 6:08 AM [facility] Creatinine 0.68 0.67 - 1.17 mg/dL 10/31/2024 6:08 AM [facility] BUN/Creatinine 21 10/31/2024 6:08 AM [facility] Glucose 93 74 - 106 mg/dL 10/31/2024 6:08 AM [facility] Calcium 9.1 8.5 - 10.1 mg/dL 10/31/2024 6:08 AM [facility] Osmolality Calc 272.1 mOsm/kg 6:08 AM [facility] eGFR (mL/min/1.73m2) >60 >=60 mL/min/1.7 3m2 10/31/2024 6:08 AM EDT [facility] Comment:eGFR of <60 suggests chronic kidney disease if found over a 3 month period of time. eGFR <15 indicates renal failure. Blood Venipuncture / Unknown 10/31/2024 5:19 AM EDT 10/31/2024 5:40 AM EDT us Piyush Frey MD LAB BLOOD ORDERABLES Fi nal Result [facility] [address] [phone] * (ABNORMAL) Comprehensive metabolic panel (10/29/2024 5:54 AM EDT) Only the most recent of3 resultswithin the time period is included. Sodium 135(L) 136 - 145 meq/L 10/29/2024 6:24 AM EDT [facility] Potassium 4.5 3.5 - 5.1 meq/L 10/29/2024 6:24 AM [facility] Chloride 100 98 - 107 meq/L 10/29/2024 6:24 AM T [facility] CO2 28 21 - 32 meq/L 10/29/2024 6:24 AM T [facility] Calcium 9.4 8.5 - 10.1 mg/dL 10/29/2024 6:24 AM [facility] Glucose 115(H) 74 - 106 mg/dL 10/29/2024 6:24 AM T [facility] BUN 8 7 - 18 mg/dL 10/29/2024 6:24 AM T [facility] Creatinine 0.64(L) 0.67 - 1.17 mg/dL 10/29/2024 6:24 AM [facility] BUN/Creatinine 13 10/29/2024 6:24 AM [facility] Albumin 3.1(L) 3.4 - 5.0 g/dL 10/29/2024 6:24 AM [facility] Alkaline Phosphatase 83 46 - 116 U/L 10/29/2024 6:24 AM T [facility] ALT 16 16 - 63 U/L 10/29/2024 6:24 AM EDT [facility] AST 26 15 - 37 U/L 10/29/2024 6:24 AM EDT [facility] Total Bilirubin 0.4 0.2 - 1.0 mg/dL 10/29/2024 6:24 AM EDT [facility] Protein, Total 7.3 6.4 - 8.2 gm/dL 10/29/2024 6:24 AM EDT [facility] Anion Gap 12 11 - 21 10/29/2024 6:24 AM EDT [facility] A/G Ratio 0.7 10/29/2024 6:24 AM EDT [facility] Globulin 4.2 g/dL 10/29/2024 6:24 AM EDT [facility] Osmolality Calc 269.3 mOsm/kg 6:24 AM T [facility] eGFR (mL/min/1.73m2) >60 >=60 mL/min/1.7 3m2 10/29/2024 6:24 AM EDT [facility] Comment:ESTIMATED GFR IS NOT ACCURATE CREATININE CLEARANCE IN PREDICTING GLOMERULAR FILTRATION RATE. ESTIMATED GFR IS NOT APPLICABLE FOR DIALYSIS PATIENTS. Blood Venipuncture / Unknown 10/29/2024 5:54 AM EDT 10/29/2024 5:57 AM EDT us Piyush Frey MD LAB BLOOD ORDERABLES Fi nal Result [facility] [address] [phone] * (ABNORMAL) CBC with automated diff (10/28/2024 5:41 AM EDT) Only the most recent of3 resultswithin the time period is included. WBC 8.3 4.0 - 10.5 K/ L 10/28/2024 6:44 AM EDT [facility] RBC 4.04(L) 4.70 - 6.00 M/ L 10/28/2024 6:44 AM EDT [facility] Hemoglobin 12.1(L) 13.2 - 18.0 GM/DL 10/28/2024 6:[facility] Hematocrit 37.9(L) 42.0 - 52.0 % 10/28/2024 6:44 AM [facility] MCV 94 78 - 100 fL 10/28/2024 6:44 AM [facility] MCH 30.0 27.0 - 31.0 pg 10/28/2024 6:44 AM [facility] MCHC 31.9(L) 32.0 - 36.0 GM/DL 10/28/2024 6:44 AM [facility] RDW 14.6(H) 11.5 - 14.0 % 10/28/2024 6:44 AM [facility] Platelets 161 150 - 400 K/CU MM 10/28/2024 6:44 AM [facility] MPV 12.4(H) 6.0 - 9.5 fL 10/28/2024 6:44 AM [facility] Nucleated Red Blood Cell 0.0 0 - 0.2 % 10/28/2024 6:44 AM [facility] % Neutros 62 41 - 80 % 10/28/2024 6:44 AM [facility] % Lymphs 25 15 - 48 % 10/28/2024 6:44 AM [facility] % Monos 8 0 - 12 % 10/28/2024 6:44 AM [facility] % Eos 4 0 - 5 % 10/28/2024 6:44 AM [facility] % Baso 1 0 - 2 % 10/28/2024 6:44 AM [facility] # Neutros 5.12 1.56 - 6.13 K/ L 10/28/2024 6:44 AM [facility] # Lymphs 2.06 K/ L 10/28/2024 6:44 AM [facility] # Monos 0.69 0.24 - 0.86 K/ L 10/28/2024 6:44 AM [facility] # Eos 0.29 0.04 - 0.54 K/ L 10/28/2024 6:44 AM EDT [facility] # Baso 0.06 0.01 - 0.08 K/ L 10/28/2024 6:44 AM EDT [facility] Immature Granulocytes-Re lative 0.40 0.00 - 0.60 % 10/28/2024 6:44 AM EDT [facility] # IG 0.03 0.00 - 0.05 K/uL 10/28/2024 6:44 AM EDT [facility] Blood Venipuncture / Unknown 10/28/2024 5:41 AM EDT 10/28/2024 6:31 AM EDT Narrative [facility] - 10/28/2024 6:44 AM [...] APRN LAB BLOOD ORDERABLES Final Re sult [facility] [address] [phone] * (ABNORMAL) PROBNP (10/27/2024 6:00 AM EDT) ProBNP (pg/mL) 151(H) <125 pg/mL 10/27/2024 6:40 AM EDT [facility] Blood Venipuncture / Unknown 10/27/2024 6:00 AM EDT 10/27/2024 6:06 AM EDT us Michael Corral MD LAB BLOOD ORDERABLES Final Resul t [facility] [address] [phone] * TSH (10/27/2024 6:00 AM EDT) TSH 1.599 0.358 - 3.740 uIU/mL 10/27/2024 6:40 AM EDT [facility] Blood Venipuncture / Unknown 10/27/2024 6:00 AM EDT 10/27/2024 6:06 AM EDT Michael Corral MD LAB BLOOD ORDERABLES Final Resul t [facility] [address] [phone] * (ABNORMAL) Urinalysis, Reflex Microscopic and Culture If Indicated (10/26/2024 2:07 PM EDT) Color, UA Yellow 10/26/2024 2:18 PM EDT [facility] Clarity, UA Clear 10/26/2024 2:18 PM EDT [facility] Specific Bono, UA 1.015 1.005 - 1.030 10/26/2024 2:18 PM EDT [facility] pH, UA 6.0 5.0 - 9.0 10/26/2024 2:18 PM EDT [facility] Leukocytes, UA Negative Negative 10/26/2024 2:18 PM EDT [facility] Nitrite, UA Negative Negative 10/26/2024 2:18 PM EDT [facility] Protein, UA Negative Negative 10/26/2024 2:18 PM EDT [facility] Glucose, UA Negative Negative 10/26/2024 2:18 PM EDT [facility] Ketones, UA Negative Negative 10/26/2024 2:18 PM EDT [facility] Bilirubin, UA Negative Negative 10/26/2024 2:18 PM EDT [facility] Blood, UA Trace(A) Negative 10/26/2024 2:18 PM EDT [facility] Urobilinogen, UA 0.2 mg/dL Normal 10/26/2024 2:18 PM EDT [facility] Specimen Source Urine, Clean Catch 10/26/2024 2:18 PM EDT [facility] Urine URINE SPECIMEN COLLECTION, CLEAN CATCH / Unknown 10/26/2024 2:07 PM EDT 10/26/2024 2:10 PM EDT Sydni Savannahsimin ORTEGA URINE ORDERABLES Final Result [facility] [address] [phone] * (ABNORMAL) Triage Drug Screen, Urine (10/26/2024 2:07 PM EDT) Amphetamine Urine Negative Negative 2:18 PM EDT [facility] Barbiturate Screen Negative Negative 2024 2:18 PM EDT [facility] Benzodiazepine Screen Positive(A ) Negative 10/26/2024 2:18 PM EDT [facility] Cocaine (Metab.) Screen Negative Negative 10/26/2024 2:18 PM EDT [facility] MDMA Ur Negative Negative 10/26/2024 2:18 PM EDT [facility] Methadone Screen Negative Negative 10/27/19 2:18 PM EDT [facility] Opiate Screen Negative Negative 10/26/2024 2:18 PM EDT [facility] Phencyclidine Screen Negative Negative 09/2024 2:18 PM EDT [facility] Tricyclic Screen Negative Negative 10/27/19 2:18 PM EDT [facility] Tetrahydrocannabinol Negative Negative 09/2024 2:18 PM EDT [facility] Methamphetamine Screen Negative Negative 2:18 PM EDT [facility] Oxycodone Screen Negative Negative 10/27/19 2:18 PM EDT [facility] Urine 10/26/2024 2:07 PM EDT 10/26/2024 2:10 PM EDT Narrative [facility] - 10/26/2024 2:18 PM EDT This urine drug of abuse screen is for medical purposes only. A positive result is a preliminary analytical result which has not been confirmed. Drug Cutoff Limits are: Amp/Methamp: 1000 ng/mL Barbiturates: 200 ng/mL Benzodiazepines: 200 ng/mL Cannabinoids: 50 ng/mL Cocaine Metabolites: 300 ng/mL Fentanyl: 1.0 ng/mL Opiates: 300 ng/mL us Sydni Blancas PA-C URINE ORDERABLES Final Result Performing Organization Address [facility] Code Phone Number [facility] [address] [phone] * (ABNORMAL) Urinalysis Microscopic Only (10/26/2024 2:07 PM EDT) Pathologist [facility] WBC, UA 0-5 None Seen, 0-5 /HPF 10/26/2024 2:30 PM EDT [facility] RBC, UA 6-10(A) None Seen, Rare /HPF 10/26/2024 2:30 PM EDT [facility] Bacteria, UA Trace(A) None Seen 10/26/2024 2:30 PM EDT [facility] Mucus Trace Trace 10/26/2024 2:30 PM EDT [facility] SQUAMOUS EPITHELIAL Rare None Seen, Rare /HPF 10/26/2024 2:30 PM EDT [facility] Urine URINE SPECIMEN COLLECTION, CLEAN CATCH / Unknown 10/26/2024 2:07 PM EDT 10/26/2024 2:10 PM EDT Sydni Blancas PA-C URINE ORDERABLES Final Result Performing Organization Address [facility] Code Phone Number [facility] [address] [phone] * (ABNORMAL) High Sensitivity Troponin I (10/26/2024 1:59 PM EDT) Pathologist [facility] Troponin I High Sensitivity (pg/mL) <4(L) 4 - 60.3 pg/mL 10/26/2024 2:30 PM EDT [facility] Comment: Troponin Result (pg/mL) [...] PM EDT 10/26/2024 2:02 PM EDT Sydni BHAGAT-C LAB BLOOD ORDERABLES Final Resul t Performing Organization Address City/[facility]/ZIP Code Phone Number [facility] [address] [place] [address], [facility] [phone] * Lipase (10/26/2024 1:59 PM EDT) Lipase 68 16 - 77 U/L 10/26/2024 2:46 PM EDT [facility] Blood Venipuncture / Unknown 10/26/2024 1:59 PM EDT 10/26/2024 2:02 PM EDT Sydni BHAGAT-C LAB BLOOD ORDERABLES Final Resul t Performing Organization Address City/[facility]/ZIP Code Phone Number [facility] [address] [place] [address], [facility] [phone] * Ethanol (10/26/2024 1:59 PM EDT) Ethanol Lvl <3 <3 mg/dL 10/26/2024 2:45 PM EDT [facility] Blood Venipuncture / Unknown 10/26/2024 1:59 PM EDT 10/26/2024 2:02 PM EDT Narrative [facility] - 10/26/2024 2:45 PM EDT Lower limit of detection is 10.00 mg/dL. 50-100 mg/dL
Impaired Reflexes: 100-300 mg/dL
Depression of TECHNICAL ARTIST: 300 mg/dL or >
Coma may occur; 400 mg/dL or >
may occur

This test is not intended for legal purposes or use in employment related testing. Sydni Blancas PA-C LAB BLOOD ORDERABLES Final Resul t [facility] [address] [place] [address], [facility] [phone] * CT brain without IV contrast (10/26/2024 [...] Transcribed by Rene Diallo(R). Sydni Blancas PA-C [facility] [place] ORDERABLES Final Result * CT spine [...] IMG CT ORDERABLES Final Result * CT cervical [...] Transcribed by Rene Diallo(R). Sydni Blancas PA-C [facility] CT ORDERABLES Final Result * XR chest [...] acute osseous abnormality is identified. Procedure Note Hanson, Stephy, MD - 10/26/2024 PORTABLE CHEST HISTORY: Delirium [...] Dr. Stephy Hanson. Transcribed by Rene Diallo(R). us Sydni Blancas PA-C IMG DIAGNOSTIC IMAGING ORDERABLE S Final Result * Critical Care (10/26/2024 1:01 PM EDT) Narrative Michael Matthews MD - 10/26/2024 1:01 PM EDT Sydni Blancas PA-C 10/26/2024 9:59 PM Critical Care Performed by: Sydni Blacnas PA-C Authorized by: Michael Matthews MD Critical [...] Antigen Nonreactive Nonreactive 12/09/2023 7:54 PM EDT [facility] Comment: The Combo HIV procedure is [...] 6:08 PM EDT 12/09/2023 6:21 PM EDT Jose Desai MD LAB BLOOD ORDERABLES Final Result Performing Organization Address City/[facility]/ZIP Co de Phone Number [facility] [address] [phone] * Lipid panel (12/09/2023 6:07 PM EDT) Triglycerides 31 0 - 249 mg/dL 12/09/2023 9:24 PM EDT [facility] Cholesterol 87 0 - 199 mg/dL 12/09/2023 9:24 PM EDT [facility] Comment: 200 to 239 mg/dL = Moderate (borderline) >239 mg/dL = High HDL Cholesterol 56 >=40 mg/dL 9:24 PM EDT [facility] Comment: >=60 mg/dL = Desirable <40 mg/dL = Increased Risk All other components are listed individually or are calculations VLDL Cholesterol 6.2 5 - 40 mg/dL 12/09/2023 9:24 PM EDT [facility] Cholesterol/HDL ratio 1.6 0.0 - 3.2 12/09/2023 9:24 PM EDT [facility] LDl/HDL Ratio 0 0 - 4 12/09/2023 9:24 PM EDT [facility] RISK COMP 2 12/09/2023 9:24 PM EDT [facility] LDL Cholesterol, Calculated 25 0 - 99 mg/dL 12/09/2023 9:24 PM EDT [facility] Blood Venipuncture / Unknown 12/09/2023 6:07 PM EDT 12/09/2023 6:21 PM EDT Jose Desai MD LAB BLOOD ORDERABLES Final Result [facility] [address] [place] [address], [facility] [phone] * (ABNORMAL) Hepatitis panel, acute (12/09/2023 6:06 PM EDT) Hep A IgM Nonreactive Nonreactive, Equivocal 12/09/2023 8:26 PM EDT [facility] Hep B C IgM Nonreactive Nonreactive 12/09/2023 8:26 PM EDT [facility] Hepatitis B surface antigen Nonreactive Nonreactive, Equivocal 12/09/2023 8:26 PM EDT [facility] Hepatitis C Ab Reactive(A) Nonreactive, Equivocal 12/09/2023 8:26 PM EDT [facility] Blood Venipuncture / Unknown 12/09/2023 6:06 PM EDT 12/09/2023 6:21 PM EDT Narrative [facility] - 12/09/2023 8:26 PM EDT Hepatitis [...] related to biotin interference with lab tests. us Jose Desai MD LAB BLOOD ORDERABLES Final Result [facility] [address] [id number] [phone] from Last 3 Months or Most Recently Relevant to Health Maintenance Insurance MEDICAID [facility] [place] [facility] Advance Directives For more information, please contact: [phone] Documents on File Type Date Recorded Patient Manager [employer] Expl anation Advance Directives and Livin g Will 04/18/2022 10:13 AM * Full Code (Latest Code Status on File) Date Activated Date Inactivated Comments 12/09/2023 1:56 PM 12/12/2023 1:00 PM Care Teams Deli Slicer Relationship Specialty Start Date End Date Tim Rey MD [address] [place] [address] PCP - General Family Medicine 11/03/24
[2024-12-01] MEDS: LACTATED RINGERS 1000ML 1,000 ML 999 ML IV (17:01)
[2024-12-01] MEDS: PHENobarbital SOD 65MG/ML INJ 130 MG IV (18:20)
[2024-12-01 18:31] LABS: Alanine Aminotransferase 8 U/L (12-78); Albumin Level 4.1 g/dl (3.5-5.0); Albumin/Globulin Ratio 1.3 (1.1-1.8); Alkaline Phosphatase 119 U/L (38-126); Aspartate Amino Transferase 41 U/L (17-59); Bilirubin,Total 0.9 mg/dl (0.2-1.3); Blood Urea Nitrogen 14 mg/dl (9-20); Carbon Dioxide 36 mmol/L (22.0-30.0); Chloride 104 mmol/L (98-107); Creatinine Clearance Estimated 151 mL/min (50-200); Estimated Glomerular Filt Rate 143 ml/min (>60); GFR (African American) 173 ML/MIN (>60); Globulin 3.2 g/dL (1.3-3.2); Glucose 106 mg/dl (74-100); Lipase 87 U/L (23-300); Magnesium 1.5 mg/dl (1.6-2.3); Sodium 142 mmol/L (136-145); Total Protein,Serum 7.3 g/dl (6.3-8.2)
[2024-12-01 18:38] LABS: Ethyl Alcohol < 10 mg/dl (0-10)
[2024-12-01 18:40] LABS: INR 1.41 (0.9-1.1); Prothrombin Time 15.3 seconds (10.1-12.5)
--- NOTE | 2024-12-01 18:41 | PC.NURSE ---
Called lab to come down and stick patient for the other purple top tube.
[2024-12-01 18:42] LABS: NT Pro Brain Natriuretic Pep. 120 pg/mL (0-125)
[2024-12-01 18:44] LABS: Troponin I < 0.01 ng/ml (0.00-0.034)
[2024-12-01 18:46] LABS: Anion Gap 5.6 mEq/L (5-15); Potassium 3.6 mmoL/L (3.5-5.1)
--- NOTE | 2024-12-01 18:51 | PEERSUPPORT ---
Peer Support Note Patient Information Patient Information: DOS: 12/01/2024 ? Reason: ETOH ED Ps consult ? ETOH last ingested: 11/30/2024 9pm; unable to hold anything down, vomiting and dry heaving. Pt stated he completed inpatient treatment for alcohol use disorder, then returned to drinking within 21 hours. He says he is really sick and feels like he can't stop drinking. He has been on a 7 day binge drinking two sleeves of fireball a day =10 shots per sleeve. He blacked out and fell at home while getting out of the shower and woke up laying over the vanity. Pt disclosed has not been to work for a week due to being drunk then repeated I am sick and just cannot quit drinking. ? Previous Treatment: [facility]- 3 weeks ago completed a 30 day inpatient program, was able to stay sober while in treatment. Shared it was not the best experience with his anxiety and being around so many people who were loud. [place] very anxious when leaving. Does not acknowledge any thoughts or mental planning to drink prior to leaving treatment, says his anxiety was too much when he left then returned to drinking. Current Treatment: Actively enrolled with [facility] on suboxone, possible last visit Sunday11/24/2024. Current stress: -Pain in stomach -Shaking -Dehydrated -has not eaten in days Ps normalized symptoms and process through alcohol use disorder and withdrawal by reflecting patients past experiences. ED MD provider Steve stated he plans to admit. Plan of action: Ps will follow up with pt on 12/02/2024
[2024-12-01 19:02] LABS: Basophils % 0.3 % (0.1-2.0); Eosinophils % 0.3 % (0.1-12.0); Hematocrit 37.9 % (42.0-52.0); Hemoglobin 12.6 g/dL (14.1-18.0); Immature Granulocytes # 0.01 10^3uL; Immature Granulocytes % 0.1 %; Lymphocytes % 26.5 % (10-50); Mean Corpuscular HGB Conc 33.2 g/dL (31.8-35.4); Mean Corpuscular Hemoglobin 29.4 pg (27.0-31.2); Mean Corpuscular Volume 88.6 fl (80-94); Mean Platelet Volume 9.7 fl (7.4-10.4); Monocytes # 0.5 K/mm3 (0.1-1.0); Monocytes % 6.8 % (1.7-9.3); Neutrophils # 5.1 K/mm3 (1.8-7.8); Nucleated Red Blood Cells # 0 10^3/uL; Nucleated Red Blood Cells % 0 %; Platelet Count 152 K/mm3 (142-424); Red Blood Count 4.28 M/mm3 (4.60-6.20); Red Cell Distribution Width-SD 45.7 fL; White Blood Count 7.7 K/mm3 (4.8-10.8)
[2024-12-01 19:09] LABS: Activated Partial Thrombo Time 23.3 seconds (22.8-30.6)
--- NOTE | 2024-12-01 19:13 | CT_ITS ---
PROCEDURE INFORMATION: Exam: CT Thoracic Spine Without Contrast Exam date and time: 12/01/2024 7:36 PM Age: 49 years old Clinical indication: Injury or trauma; Fall; Other: Pain TECHNIQUE: Imaging protocol: Computed tomography of the thoracic spine without contrast. Radiation optimization: All CT scans at this facility use at least one of these dose optimization techniques: automated exposure control; mA and/or kV adjustment per patient size (includes targeted exams where dose is matched to clinical indication); or iterative reconstruction. COMPARISON: CT THORACIC SPINE WO CON 11/21/2023 7:33 PM FINDINGS: Bones/joints: No acute fracture. Normal alignment. No significant disc bulge or herniation. No severe spinal canal stenosis. No significant neural foraminal narrowing. Soft tissues: Unremarkable. IMPRESSION: Unremarkable CT Spine.
[2024-12-01 19:17] LABS: Gamma Glutamyl Transpeptidase 63 U/L (15-73)
[2024-12-01] MEDS: IOPAMIDOL-370 (76%);100ML BOTTLE 75 ML IV (19:44)
[2024-12-01] MEDS: SODIUM CHLORIDE 0.9% 10ML SYR (RAD ONLY) 10 ML IV (19:44)
--- NOTE | 2024-12-01 20:01 | P.HP_ITS ---
History of Present Illness *Admission Date: 12/01/24 *Reason for visit:: Alcohol withdrawal *History of present illness: 49-year-old male presents to the emergency department via EMS for an unwitnessed fall/syncopal episode that occurred several hours ago, unknown time down, patient is not on any anticoagulation therapy, patient is unsure if he struck the head, patient endorsed feeling sick , this morning with nausea and vomiting. History is limited due to delirium tremens. Currently endorsing severe abdominal pain. He states that he has been drinking approximately 2 sleeves of fireball daily. However he started having severe abdominal pain yesterday and as a result has been unable to drink any more. He has not had alcohol in about 24 hours. Currently he is hallucinating and seeing bugs all over the place. He is also having severe tremors. In the emergency department noted to have chronic anemia, supratherapeutic INR, hypomagnesemia. He was given phenobarbital with minimal results. I started him on Ativan 2 mg Q1 hour as needed for CIWA protocol with immediate improvement of symptoms. CT imaging of spine demonstrated no acute findings other than mild degenerative disc disease Chest x-ray demonstrated no acute cardiopulmonary abnormality EKG was normal sinus rhythm with no ST deviations Patient was admitted to ICU for delirium tremens History independently obtained. Diagnostics independently interpreted. Prior records reviewed. Case discussed with ER physician [facility] Disclaimer: The information contained in this section may have been updated after the patient was seen, as this information can be updated by other users. Medical History (Updated 12/01/24 @ 23:13 by Shakeel Wilson MD) Anemia Hiccups Insomnia disorder Vomiting Hypophosphatemia Hypomagnesemia Acute hypokalemia Abdominal pain Epigastric pain Screening for malignant neoplasm of colon Nausea Dyspepsia Abdominal pain Substance use disorder SVT (supraventricular tachycardia) Hypokalemia Alcohol abuse Shortness of breath Hematemesis Sepsis due to pneumonia Abdominal pain, acute Alcohol use disorder Gastrointestinal bleed Duodenal ulcer Necrotizing pneumonia Pneumonia Drug abuse and dependence Back pain Rib pain Shoulder pain Neck pain Acute UTI Back pain Ankle fracture Fracture of distal end of fibula Sinusitis Cellulitis Exposure to COVID-19 virus PTSD (post-traumatic stress disorder) Acute blood loss anemia Peptic ulcer disease with hemorrhage Chronic pain Anxiety Acute bronchitis Elbow pain, left Acute urinary tract infection Leukocytosis Acute appendicitis High risk medication use Tobacco abuse Asthma exacerbation Depression Anxiety Traumatic brain injury Surgical History History of foot surgery H/O lithotripsy History of appendectomy H/O right knee surgery H/O anterior cruciate ligament surgery Previous back surgery Family History Grandmother Cancer Diabetes Stroke Grandfather Cancer Mother Diabetes Hypertension Social History Smoking Status: Current every day smoker tobacco type: cigarettes packs per day: 1 alcohol intake: current alcohol intake frequency: a few times a week counseling provided: provider counseling substance use type: former substance user and prescription drug current occupational status: disabled Travel in the last 8 weeks?: None household members: significant other housing: house current occupational exposures/hazards: No caffeine: No Have you lived/traveled outside US in past 30 days?: No Contact w/someone who lives/traveled outside US past 30 days?: No Exposure to someone with infectious disease in past 14 days?: No Do you have a fever (greater than 100.4 F or 38 C)?: No Have you tested positive for COVID-19?: No Exposed to someone with COVID-19 in past 14 days?: No Do you have a sore throat?: No Do you have a cough?: No Do you have any weakness?: No Do you have any diarrhea?: No Are you experiencing any unusual bleeding?: No Do you have any muscle aches/pain?: No Do you have any abdominal pain?: No Are you experiencing loss of taste or smell?: No Other Medical History Have you received the Flu Vaccine for this season: No Have you received the Pneumonia Vaccine: No Review of Systems Review of Systems Review of systems:: unable to obtain Meds Home Medications and Allergies Home Medications ?Medication ?Instructions ?Recorded ?Confirmed ?Type ipratropium 0.5 mg-albuterol 3 mg 3 ml inhalation Q6HP PRN shortness 04/15/24 10/21/24 Rx (2.5 mg base)/3 mL nebulization of breath or wheezing 30 days #180 soln mL multivitamin 1 tab PO DAILY #30 tabs 07/2610/21/24 Rx polyethylene glycol 3350 17 17 g PO DAILY 30 days #510 grams 08/08/24 10/21/24 Rx gram/dose oral powder albuterol sulfate 90 mcg/actuation 2 puff inhalation Q 6HP PRN 10/14/24 10/21/24 Rx aerosol inhaler shortness of breath or wheez ing #8.5 grams buprenorphine 8 mg-naloxone 2 mg 2 tab sublingual PETR Y 14 days #28 10/14/24 10/21/24 Rx sublingual tablet tabs doxycycline hyclate 100 mg tablet 100 mg PO BID 4 days #8 tabs 10/14/24 10/21/24 Rx fluticasone fur. 100 mcg-umeclid 1 inh inhalation PETR Y 30 days #60 10/14/24 10/21/24 Rx 62.5 mcg-vilant 25 mcg ea inhalat.powder (Trelegy Ellipta) folic acid 1 mg tablet 1 mg PO DAILY 30 days #30 ta bs 10/14/24 10/21/24 Rx gabapentin 100 mg capsule 200 mg (2 x 100 mg) PO BID 3 0 days 10/14/24 10/21/24 Rx #120 caps levothyroxine 25 mcg tablet 50 mcg (2 x 25 mcg) PO AMINAH LYDM 30 10/14/24 10/21/24 Rx (Synthroid) days #60 tabs lhvyyp-nuoxgndr-clvwpnl 2 cap PO AC 30 days #180 cap s 10/14/24 10/21/24 Rx 36,000-114,000-180,000 unit capsule,delay rel (Creon) misoprostol 200 mcg tablet 200 mcg PO BID 30 days #60 tabs 10/14/24 10/21/24 Rx pantoprazole 40 mg tablet,delayed 40 mg PO BID 30 days #60 tabs 10/14/24 10/21/24 Rx release prednisone 20 mg tablet 40 mg (2 x 20 mg) PO DAILY 4 days 10/14/24 10/21/24 Rx #8 tabs sucralfate 1 gram tablet 1 g PO ACHS 30 days #120 tab s 10/14/24 10/21/24 Rx thiamine HCl (vitamin B1) 100 mg 100 mg PO DAILY #30 t abs 10/14/24 10/21/24 Rx tablet venlafaxine 37.5 mg tablet 37.5 mg PO BID 30 days #60 tabs 10/14/24 10/21/24 Rx New Prescriptions to Start Prescriptions: Allergies Allergy/AdvReac Type Severity Reaction Status Date / Time aspirin (ASPIRIN) Allergy Unknown Nose Bleed Verified 10/21/24 13:05 cephalexin (From Keflex) Allergy Gastrointestinal Verified 10/21/24 13:05 Upset piperacillin (From Zosyn) Allergy Hives Verified 10/21/24 13:05 tazobactam (From Zosyn) Allergy Hives Verified 10/21/24 13:05 Exam Data for Last 24 hours Vital signs and Labs for Last 24 Hours: Temp Pulse Resp BP Pulse Ox O2 Del Method 98.2 F 66 13 148/85 H 96 Room Air 12/01/24 16:33 12/01/24 18:10 12/01/24 18:10 12/01/24 18:10 12/01/24 18:10 12/01/24 18:10 Laboratory Results - last 24 hr 12/01/24 18:11: PT 15.3 H, INR 1.41 H, APTT 23.3, Sodium 142, Potassium 3.6, Chloride 104, Carbon Dioxide 36 H, Anion Gap 5.6, BUN 14, Creatinine 0.60 L, Estimated Creat Clear 151, Estimated GFR 143, Est GFR ( Amer) 173, Glucose 106 H, Lactate 1.0, Calcium 9.0, Magnesium 1.5 L, Total Bilirubin 0.9, GGT 63, AST 41, ALT 8 L, Alkaline Phosphatase 119, Troponin I < 0.01, NT-Pro-B Natriuret Pep 120, Total Protein 7.3, Albumin 4.1, Globulin 3.2, Albumin/Globulin Ratio 1.3, Lipase 87, Plasma/Serum Alcohol < 10 12/01/24 18:50: WBC 7.7, RBC 4.28 L, Hgb 12.6 L, Hct 37.9 L, MCV 88.6, MCH 29.4, MCHC 33.2, RDW 14.0, Plt Count 152, MPV 9.7, Neut % (Auto) 66.0, Lymph % (Auto) 26.5, [place] % (Auto) 6.8, Eos % (Auto) 0.3, Baso % (Auto) 0.3, Neut # (Auto) 5.1, Lymph # (Auto) 2.0, [place] # (Auto) 0.5, Eos # (Auto) 0.0, Baso # (Auto) 0.0 I & O for Last 24 hours: Intake & Output 11/28/24 11/29/24 11/30/24 12/01/24 23:59 23:59 23:59 23:59 Weight 72.575 kg Constitutional Constitutional: no acute distress *Routine HEENT Exam Head: Present normocephalic Eye: Present EOMI and PERRL ENT: Present mucous membranes moist *Routine Neck Exam Neck: Present supple; Absent lymphadenopathy *Routine Respiratory Exam Respiratory: Present CTA bilaterally *Routine Cardiovascular Exam Cardiovascular: Present RRR *Routine Abdominal Exam Abdominal: Present soft and normoactive bowel sounds; Absent tenderness *Routine Rectal Exam Rectal:: deferred *Routine Genitalia Exam Genitalia:: deferred *Routine Extremities Exam Extremities: Absent cyanosis, clubbing or edema *Routine Skin Exam Skin: Present warm; Absent rash *Routine Neurological Exam Neurological: Present alert, oriented X3 and tremors Routine Psychiatric Exam Psychiatric: Present visual hallucinations and tactile hallucinations Assessment and Plan *Assessment and plan (1) PTSD (post-traumatic stress disorder): Status: Acute Category: Medical Code(s): F43.10 - Post-traumatic stress disorder, unspecified (2) Alcoholic fatty liver: Status: Acute Category: Medical Code(s): K70.0 - Alcoholic fatty liver (3) Acute alcohol intoxication: Status: Acute Category: Medical Code(s): F10.929 - Alcohol use, unspecified with intoxication, unspecified (4) Generalized anxiety disorder with panic attacks: Status: Acute Category: Medical Code(s): F41.1 - Generalized anxiety disorder; F41.0 - Panic disorder [episodic paroxysmal anxiety] (5) Alcohol withdrawal: Status: Resolved Qualifiers: Complication of substance-induced condition: with unspecified complication Qualified Code(s): F10.939 - Alcohol use, unspecified with withdrawal, unspecified Category: Medical Code(s): F10.939 - Alcohol use, unspecified with withdrawal, unspecified (6) Delirium tremens: Status: Acute Category: Medical Code(s): F10.931 - Alcohol use, unspecified with withdrawal delirium Plan 49-year-old man admitted to ICU for delirium tremens after not being able to consume alcohol for 24 hours due to severe abdominal pain Delirium tremens - ICU - [facility] protocol - Ativan 2 mg IV every hour as needed - May need phenobarbital if symptoms do not resolve - Will treat to affect - Rally pack Abdominal pain Alcohol gastritis - GI cocktail - Sulcrafate - PPI - Zofran - Phenergan Anemia - Monitor Hypomagnesemia - Replete
[2024-12-01 20:05] LABS: D-Dimer 1.62 ug/mL (0.0-0.5)
[2024-12-01 20:12] LABS: Troponin I < 0.01 ng/ml (0.00-0.034)
[2024-12-01] MEDS: LORazepam 2MG/ML VIAL 2 MG IV ×3 (20:25→22:35)
--- NOTE | 2024-12-01 20:44 | PC.NURSE ---
CIWA at 12/01/242019 was 18 prior to Ativan administration
--- NOTE | 2024-12-01 20:45 | PC.NURSE ---
report called to pete in ICU, room is still being cleaned
[2024-12-01] MEDS: MVI, ADULT NO.1 WITH VIT K 10 ML, THIAMINE HCL 100 MG, MAGNESIUM SULFATE 2 GM in LACTAT... 125 ML IV (20:48)
--- NOTE | 2024-12-01 21:00 | PC.NURSE ---
pt refused to have cre swab done
--- NOTE | 2024-12-01 21:30 | PC.NURSE ---
pt home meds were not verified due to pt stating he hasnt taken them for about 3 weeks which was when he got out of rehab. He wasn't 100% sure exactly what all medications he takes.
[2024-12-01] MEDS: THIAMINE 100MG TABLET 100 MG PO (22:11)
[2024-12-01] MEDS: FOLIC ACID 1MG TABLET 1 MG PO (22:11)
[2024-12-01] MEDS: BELLADONNA ALKALOIDS 60 ML ML PO (22:12)
[2024-12-01] MEDS: PANTOPRAZOLE 40MG TABLET 40 MG PO (22:12)
[2024-12-01] MEDS: MAGNESIUM SULFATE 2 GM in 0.9 % SODIUM CHLORIDE 100 ML IV (22:34)
[2024-12-01 23:04] LABS: Activated Partial Thrombo Time 28.2 seconds (22.8-30.6); INR 1.09 (0.9-1.1)
[2024-12-02] VITALS (64 sets, daily range): BP systolic 104–160; BP diastolic 55–91; PULSE 50–80; RESP 10–22; TEMP 36.6–37.2; O2SAT 93–100; BMI 22.0
[2024-12-02] MEDS: LORazepam 2MG/ML VIAL 2 MG IV ×6 (00:54→23:11)
[2024-12-02 00:56] LABS: Troponin I < 0.01 ng/ml (0.00-0.034)
--- NOTE | 2024-12-02 03:45 | PC.NURSE ---
while pt is sleeping pt began to desat in to the low 80s. pt was placed on 2 liter nasal cannula pt is now staying in the high 90s
--- NOTE | 2024-12-02 05:35 | PC.NURSE ---
pt refused to have a bath this morning. he said im not dirty I haven't done anything.
[2024-12-02 05:40] LABS: POC Glucose,Bedside 112 (70-110)
[2024-12-02 06:20] LABS: Basophils % 0.8 % (0.1-2.0); Eosinophils # 0.1 Kmm3 (0.0-0.4); Eosinophils % 3.3 % (0.1-12.0); Hematocrit 34.4 % (42.0-52.0); Immature Granulocytes # 0.01 10^3uL; Immature Granulocytes % 0.3 %; Lymphocytes # 1.9 K/mm3 (0.7-4.5); Lymphocytes % 53.3 % (10-50); Mean Corpuscular Hemoglobin 29.3 pg (27.0-31.2); Mean Corpuscular Volume 91.7 fl (80-94); Mean Platelet Volume 9.7 fl (7.4-10.4); Monocytes # 0.4 K/mm3 (0.1-1.0); Monocytes % 10.3 % (1.7-9.3); Neutrophils # 1.2 K/mm3 (1.8-7.8); Nucleated Red Blood Cells # 0 10^3/uL; Nucleated Red Blood Cells % 0 %; Platelet Count 111 K/mm3 (142-424); Red Blood Count 3.75 M/mm3 (4.60-6.20); Red Cell Distribution Width 14.3 % (11.5-17.5); White Blood Count 3.6 K/mm3 (4.8-10.8)
[2024-12-02 06:24] LABS: Hemoglobin 11.3 g/dL (14.1-18.0)
--- NOTE | 2024-12-02 06:33 | PC.NURSE ---
Pt was alert and oriented when he came to the unit last night. Pt had a ciwa score of 18 when he came up from the ER. He was given 2mg of ativan and also had a rally pack started. Pt had ciwa scores done every hour up until 3 and it was changed to every 2 hours. pt is now back to every hour. Pt received 2mg of ativan at 615 this morning due to ciwa being 17. pt is fingerstick. bgl was 112. Pt is on clear liquid diet at this time. Pt has expiratory rhonci throughout on lung sounds. pt has been sinus cecy on the monitor. Pt is on 2l nasal cannula due to dropping in the 80s while sleeping. pt did not want to get in a gown so he is still in his clothes. RN was unable to go over pts medicines because pt hadnt taken any medication for 3 weeks due to being in rehab.
[2024-12-02 06:46] LABS: Albumin Level 2.9 g/dl (3.5-5.0); Chloride 107 mmol/L (98-107); Potassium 3.2 mmoL/L (3.5-5.1); Sodium 141 mmol/L (136-145)
[2024-12-02 06:49] LABS: Alanine Aminotransferase 8 U/L (12-78); Albumin/Globulin Ratio 1.2 (1.1-1.8); Alkaline Phosphatase 103 U/L (38-126); Anion Gap 2.2 mEq/L (5-15); Aspartate Amino Transferase 58 U/L (17-59); Bilirubin,Total 0.6 mg/dl (0.2-1.3); Blood Urea Nitrogen 11 mg/dl (9-20); Calcium 7.9 mg/dl (8.4-10.2); Carbon Dioxide 35 mmol/L (22.0-30.0); Creatinine Clearance Estimated 133 mL/min (50-200); Estimated Glomerular Filt Rate 143 ml/min (>60); GFR (African American) 173 ML/MIN (>60); Globulin 2.4 g/dL (1.3-3.2); Glucose 107 mg/dl (74-100); Total Protein,Serum 5.3 g/dl (6.3-8.2)
[2024-12-02 06:50] LABS: Magnesium 2.5 mg/dl (1.6-2.3)
--- NOTE | 2024-12-02 07:40 | PC.NURSE ---
Patient resting at this time. CIWA charted. COntinuation of care plan.
--- OUTSIDE RECORDS SUMMARY | 2024-12-02 07:57 | XMS_ITS | Encounter Summary ---
Author Organization [facility] In iatives Address [address] [place] [address] Care Team Providers Care Entry Level Project Engineer Name Role Phone Merlin Egan MD Primary Care Provider + [phone] Aj Valentine MD Primary Care Provider + [phone] Tim Rey MD Primary Care Provider + [phone] Encounter Details Date Type Department Care Team (Late st Contact Info) Description 03/14/2022 Transcribed Document [facility] [place] Family Medicine [address] [place] [address] ProviderRocael MD [address] [place] [address] Social History Tobacco Use Types Packs/Day [...] 5 years ago. He was transferred from [facility] with a 9 mm left [...] patient and procedure and side. A 22 Lebanese cystoscope was placed per urethra into the bladder. Inspection revealed a normal urethra, small prostate, and normal bladder. A 0.035 hydrophilic guidewire was inserted into the left ureter and advanced up to the level of the kidney under fluoroscopy guidance. There was mild resistance in the proximal ureter. A 6 Lebanese by 24 cm double-J indwelling ureteral stent [...] outpatient. Drains/Packs Used Left ureteral stent 6 Lebanese by 24 cm, strings removed Anesthesia General *Estimated Blood Loss None *Findings Normal urethra, prostate, and bladder. There was proper placement of the left stent. *Specimen(s) None Complications None Date of Service 03/14/2022 documented in this encounter Plan of Treatment Not on file documented as of this encounter Visit Diagnoses Not on filedocumented in this encounter Care Teams Entry Level Project Engineer Relationship Specialty Start Date End Date Merlin Egan MD [address] [place], [place] [id number] PCP - General Family Medicine 04/18/22 12/12/23 Aj Valentine MD [address] [place] [address] PCP - General Adolescent Medicine 12/13/23 11/02/24 Tim Rey MD [address] [place] [address] PCP - General Family Medicine 11/03/24 documented as of this encounter
--- OUTSIDE RECORDS SUMMARY | 2024-12-02 07:57 | XMS_ITS | Encounter Summary ---
Author Organization [facility] In iatives Address [address] [place] [address] Care Team Providers Care Waterproofer Helper Name Role Phone Merlin Egan MD Primary Care Provider + [phone] Aj Valentine MD Primary Care Provider + [phone] Tim Rey MD Primary Care Provider + [phone] Encounter Details Date Type Department Care Team (Late st Contact Info) Description 03/15/2022 Transcribed Document [facility] [place] [address] [place] [address] ProviderRocael MD [address] [place] [address] Social History Tobacco Use Types [...] These discussions are confidential. ??? The National Centenary on Alcoholism and Drug Dependence (NCADD). This group has information about treatment centers and programs for people who have an addiction and for family members. ? Call: 5-357-EFQ-CALL ( ). ? Visit the website: https://www.ncadd.org/ ??? The Substance Abuse and Mental Health Services Administration (SAMHSA). This organization will help you find publicly funded treatment centers, help hotlines, and counseling services near you. ? Call: 6-504-893-HELP ( ). ? Visit the website: www.findtreatment.samhsa.gov ??? The National Problem Gambling Helpline. This is a 24-hour confidential helpline for gambling addiction. ? Call: ? Visit the website: https://www.Codewiseambling.org/ In countries outside of the [place] and [...] provider. Document Revised: 06/09/2021 Document Reviewed: 07/10/2018 [employer] Patient Education ? 2021 Moveline. Urology Kidney Stones Kidney stones are rock-like [...] these instructions at home: Medicines ??? Take hsci-jbq-brbusgc and prescription medicines only as told by [...] Reviewed: 10/28/2019 Elsevier Patient Education ? 2021 Moveline. Electronically signed by Niels, Harshil Conversion Cut And Print Machine Operator Cerner at 10/10/2022 4:08 PM CDT documented in this encounter Plan of Treatment Not on file documented as of this encounter Visit Diagnoses Not on filedocumented in this encounter Care Teams Waterproofer Helper Relationship Specialty Start Date End Date Merlin Egan MD [address] [place] [address] [place] [address] PCP - General Family Medicine 04/18/22 12/12/23 Aj Valentine MD [address] [place] [address] PCP - General Adolescent Medicine 12/13/23 11/02/24 Tim Rey MD [address] [place] [address] PCP - General Family Medicine 11/03/24 documented as of this encounter
--- OUTSIDE RECORDS SUMMARY | 2024-12-02 07:57 | XMS_ITS | Encounter Summary ---
Author Organization [facility] In iatives Address [address] [place] [address] Care Team Providers Care Supervisory Air Intercept Controller Name Role Phone Merlin Egan MD Primary Care Provider + [phone] Aj Valentine MD Primary Care Provider + [phone] Tim Rey MD Primary Care Provider + [phone] Encounter Details Date Type Department Care Team (Late st Contact Info) Description 03/14/2022 Transcribed Document [facility] [place] [address] [place] [address] ProviderRocael MD [address] [place] [address] Social History Tobacco Use Types Packs/Day [...] DAVE /Sex: 1975 Male Med Rec #: [id number] Physician: STELLA WISEMAN MD Financial #: [id number] Pt. Type: I Room/Bed: [facility] Admit/Disch: 03/13/22 12:32:00 - Institution: [facility] [place] IntraOp Case Attendance Entry 1 Entry 2 Entry 3 Case Attendee AJ HALL, OTHER, ATTENDEE Annamarie Marcelo MD-URO Coldfusion Role Performed Surgeon/Proceduralist, Scrub, First Scrub, Second [...] SERAFIN LOPES, Tyrone Romero MARX, CONNIE, RERE BENDING PRESS OPERATOR Role Performed CABLE CUTTER AND SWAGER/Nurse Eyelet Row Marker Manager Game Garde Manger, First Time In 03/14/22 17:30:00 03/14/22 17:30:00 03/14/22 17:30:00 Time Out 03/14/22 17:55:00 03/14/22 17:55:00 03/14/22 17:55:00 Procedure Cystoscopy Stent Cystoscopy Stent Cystoscopy Stent Insertion Insertion Insertion Other Attendee Superficial Wound Closed By: Last Modified By: LILIA WHITE, LILIA ALVAREZ, LILIA ALVAREZ RN 03/14/22 18:03:07 03/14/22 18:03:07 03/14/22 18:03:07 [facility] IntraOp Case Attendance Audit 03/14/22 18:03:07 Molding Manager: DAMIENO Modifier: MARXCO 1 <*> Procedure Cystoscopy [...] <*> Procedure Cystoscopy Stent Insertion 03/14/22 18:00:10 Molding Manager: SHARONSARY Modifier: MARXCO <+> 1 Time Out [...] [facility] IntraOp Case Times Audit 03/14/22 17:57:27 Molding Manager: SHARONSARY Modifier: MARXCO <+> 1 Out Room [...] IntraOp Departure from OR Audit 03/14/22 18:02:23 Molding Manager: MARXCO Modifier: MARXCO <+> 1 Post-op Transport [...] RN 03/14/22 18:01:22 [facility] IntraOp General Case Director Of Diagnostic Imaging 1 Case Information OR OR 07 [facility]JE [...] Type Other Implant STENT URET CNTOUR Identification [id number] Description Implant Quantity 1 Implant Site left ureter Implant [id number] Identification Lot Number Implant [place] Identification Sci:Urology/Gynecology Technical Translator Name: Implant [id number] Identification Catalog Number Implant [...] Medication/Irrigant lidocaine 2% urojet 10ml jelly - [id number] Route of topical Administration Dose Volume qs [...] AMARJIT IntraOp Time Out Audit 03/14/22 18:00:50 Molding Manager: TERRELL Modifier: TERRELL 1 <+> Beta Christine [...] Unfinalizing Freetext Reason for Unfinalizing 03/14/22 18:03 TERRLEL Modify Pick List documented in this encounter Plan of Treatment Not on file documented as of this encounter Visit Diagnoses Not on filedocumented in this encounter Care Teams Supervisory Air Intercept Controller Relationship Specialty Start Date End Date Merlin Egan MD [address] [place] [address] [place] [address] PCP - General Family Medicine 04/18/22 12/12/23 Aj Valentine MD [address] [facility] [address] [place] [address] PCP - General Adolescent Medicine 12/13/23 11/02/24 Tim Rey MD [address] [facility] [address] [place] [address] PCP - General Family Medicine 11/03/24 documented as of this encounter
--- OUTSIDE RECORDS SUMMARY | 2024-12-02 07:57 | XMS_ITS | Encounter Summary ---
Author Organization [facility] In iatives Address [address] [place] [address] Care Team Providers Care Client Integration Manager Name Role Phone Merlin Egan MD Primary Care Provider + [phone] Aj Valentine MD Primary Care Provider + [phone] Tim Rey MD Primary Care Provider + [phone] Encounter Details Date Type Department Care Team (Late st Contact Info) Description 03/15/2022 Transcribed Document [facility] [place] [address] [place] [address] ProviderRocael MD [address] [place] [address] Social History Tobacco Use Types Packs/Day [...] tablet 750 mg = 1 Tab, Oral, [id number] naproxen 500 mg oral tablet 500 mg [...] on filedocumented in this encounter Care Teams Client Integration Manager Relationship Specialty Start Date End Date Merlin Egan MD [address] [place] [address] [place] [address] PCP - General Family Medicine 04/18/22 12/12/23 Aj Valentine MD [facility] [address] [place] [address] PCP - General Adolescent Medicine 12/13/23 11/02/24 Tim Rey MD [facility] [facility] [address] [place] [address] PCP - General Family Medicine 11/03/24 documented as of this encounter
--- OUTSIDE RECORDS SUMMARY | 2024-12-02 07:57 | XMS_ITS | Encounter Summary ---
Author Organization [facility] In iatives Address [address] [place] [address] Care Team Providers Care Trestle Mechanic Name Role Phone Merlin Egan MD Primary Care Provider + [phone] Aj Valentine MD Primary Care Provider + [phone] Tim Rey MD Primary Care Provider + [phone] Encounter Details Date Type Department Care Team (Late st Contact Info) Description 03/14/2022 Transcribed Document [facility] [place] [address] [place] [address] ProviderRocael MD [address] [place] [address] Social History Tobacco Use Types Packs/Day [...] Follow-up assessment Pain Scale Goal : 4 Landen Wilson RN-PATIENT CARE BEDSIDE NON-EXEMPT - 03/14/2022 18:58 EDT Electronically signed by [facility], [facility] Conversion Butter Grader Cerner at 10/15/2022 2:00 PM CDT documented in this encounter Plan of Treatment Not on file documented as of this encounter Visit Diagnoses Not on filedocumented in this encounter Care Teams Trestle Mechanic Relationship Specialty Start Date End Date Merlin Egan MD [address] [place] [address] [place] [address] PCP - General Family Medicine 04/18/22 12/12/23 Aj Valentine MD [address] [place] [address] PCP - General Adolescent Medicine 12/13/23 11/02/24 Tim Rey MD [address] [place] [address] PCP - General Family Medicine 11/03/24 documented as of this encounter
--- OUTSIDE RECORDS SUMMARY | 2024-12-02 07:57 | XMS_ITS | Encounter Summary ---
Author Organization [facility] In iatives Address [address] [place] [address] Care Team Providers Care Group Exercise Instructor Name Role Phone Merlin Egan MD Primary Care Provider + [phone] Aj Valentine MD Primary Care Provider + [phone] Tim Rey MD Primary Care Provider + [phone] Encounter Details Date Type Department Care Team (Late st Contact Info) Description 03/15/2022 Transcribed Document [facility] [place] [address] [place] [address] ProviderRocael MD [address] [place] [address] Social History Tobacco Use Types Packs/Day Years Used Date Smoking Tobacco: Never Assessed Sex and Gender Information Value Date Recorded Sex Assigned at Not on file Legal Sex Male 11:25 AM CDT Gender Identity Not on file Sexual Orientation Not on file documented as of this encounter Miscellaneous Notes * Cerner Conversion Note - Historical ProviderMD - 03/15/2022 2:00 AM CDT Training Technician Details Entered On: 03/15/2022 1:28 EDT Performed [...] - 03/15/2022 1:26 EDT Electronically signed by [facility], [facility] Conversion Cooling Pan Tender Cerner at 10/10/2022 4:10 PM CDT documented in this encounter Plan of Treatment Not on file documented as of this encounter Visit Diagnoses Not on filedocumented in this encounter Care Teams Group Exercise Instructor Relationship Specialty Start Date End Date Merlin Egan MD [address] [facility] [place] [address] PCP - General Family Medicine 04/18/22 12/12/23 Aj Valentine MD [address] [facility] [address] [place] [address] PCP - General Adolescent Medicine 12/13/23 11/02/24 Tim Rey MD [address] [facility] [address] [place] [address] PCP - General Family Medicine 11/03/24 documented as of this encounter
--- OUTSIDE RECORDS SUMMARY | 2024-12-02 07:57 | XMS_ITS | Encounter Summary ---
Author Organization [facility] Definition 6 In iatives Address [address] [place] [address] Care Team Providers Care Small Engine Mechanic Name Role Phone Merlin Egan MD Primary Care Provider + [phone] Aj Valentine MD Primary Care Provider + [phone] Tim Rey MD Primary Care Provider + [phone] Encounter Details Date Type Department Care Team (Late st Contact Info) Description 03/14/2022 Transcribed Document [facility] [address] [place] [address] ProviderRocael MD [address] [place] [address] Social History Tobacco Use Types Packs/Day [...] 5 years ago. He was transferred from [facility] with a 9 mm left [...] Levaquin, 750 mg= 150 mL, IV Piggyback, [id number] magnesium sulfate, 2 Gram= 50 mL, IV [...] 24 Hours) Radiology Results (Last 48 hours) [id number] -- 03/13/2022 12:32 CR Chest 1 Vw [...] Allergies aspirin piperacillin-tazobactam Electronically signed by Niels, [facility] Conversion Chief Projectionist Cerner at 10/10/2022 4:11 PM CDT documented in this encounter Plan of Treatment Not on file documented as of this encounter Visit Diagnoses Not on filedocumented in this encounter Care Teams Small Engine Mechanic Relationship Specialty Start Date End Date Merlin Egan MD [address] [place] [address] PCP - General Family Medicine 04/18/22 12/12/23 Aj Valentine MD [address] [facility] [address] [place] [address] PCP - General Adolescent Medicine 12/13/23 11/02/24 Tim Rey MD [address] [place] [employer] [address] [place] [address] PCP - General Family Medicine 11/03/24 documented as of this encounter
--- OUTSIDE RECORDS SUMMARY | 2024-12-02 07:57 | XMS_ITS | Encounter Summary ---
Author Organization [facility] [employer] In iatives Address [address] [place] [address] Care Team Providers Care Director Operations Broadcast Name Role Phone Merlin Egan MD Primary Care Provider + [phone] Aj Valentine MD Primary Care Provider + [phone] Tim Rey MD Primary Care Provider + [phone] Encounter Details Date Type Department Care Team (Late st Contact Info) Description 03/14/2022 Transcribed Document [facility] [place] [address] [place] [address] ProviderRocael MD [address] [place] [address] Social History Tobacco Use Types [...] Standing scale Routine Weight Entry Format : Mathews Routine Weight, Pounds : 132 lb Routine Weight Calculation : 60 kg Height Source : Chart Height Entry Format : Mathews Height, Feet : 5 ft Height, Inches : 8 Inch Clinical Height : 172.72 cm Body Surface Area (BSA), Routine : 1.71 m2 Body Mass Index (BMI), Routine : 20.11 kg/m2 Maggie Thomas RN - 03/14/2022 6:41 EDT Electronically signed by [facility], [facility] Conversion Sandblast Operator Cerner at 10/10/2022 4:15 PM CDT documented in this encounter Plan of Treatment Not on file documented as of this encounter Visit Diagnoses Not on filedocumented in this encounter Care Teams Director Operations Broadcast Relationship Specialty Start Date End Date Merlin Egan MD [address] [place] [address] PCP - General Family Medicine 04/18/22 12/12/23 Aj Valentine MD [address] [place] [address] PCP - General Adolescent Medicine 12/13/23 11/02/24 Tim Rey MD [address] [place] [address] PCP - General Family Medicine 11/03/24 documented as of this encounter
--- OUTSIDE RECORDS SUMMARY | 2024-12-02 07:57 | XMS_ITS | Encounter Summary ---
Author Organization [facility] In iatives Address [address] [place] [address] Care Team Providers Care Dean Of Girls Name Role Phone Merlin Egan MD Primary Care Provider + [phone] Aj Valentine MD Primary Care Provider + [phone] Tim Rey MD Primary Care Provider + [phone] Encounter Details Date Type Department Care Team (Late st Contact Info) Description 03/13/2022 Transcribed Document [facility] [place] [address] [place] [address] ProviderRocael MD [address] [place] [address] Social History Tobacco Use Types Packs/Day [...] On: 03/13/2022 12:47 EDT by Yamilka Vega Pattern Scratcher-Health Unit Coord Phone Call for Consults Consult Reason : kidney stones Physician Requesting Consult : ZEINAB DAWSON MD-INT Physician Requested for Consult : AJ HALL MD-URO Date and Time Call Returned : 03/13/2022 13:38 EDT Consult, Additional Information : Spoke with Saranya on the phone concerning the consult. Yamilka Vega, Pattern Scratcher-Health Unit Coord - 03/13/2022 13:37 EDT Electronically signed by [facility], [facility] Conversion Hydraulic Barker Operator Cerner at 10/10/2022 4:02 PM CDT documented in this encounter Plan of Treatment Not on file documented as of this encounter Visit Diagnoses Not on filedocumented in this encounter Care Teams Dean Of Girls Relationship Specialty Start Date End Date Merlin Egan MD [address] [place] [address] [place] [address] PCP - General Family Medicine 04/18/22 12/12/23 Aj Valentine MD [address] [place] [address] PCP - General Adolescent Medicine 12/13/23 11/02/24 Tim Rey MD [address] [place] [address] PCP - General Family Medicine 11/03/24 documented as of this encounter
--- OUTSIDE RECORDS SUMMARY | 2024-12-02 07:57 | XMS_ITS | Encounter Summary ---
Author Organization [facility] In iatives Address [address] [place] [address] Care Team Providers Care Grades 1 6 Tutor Name Role Phone Merlin Egan MD Primary Care Provider + [phone] Aj Valentine MD Primary Care Provider + [phone] Tim Rey MD Primary Care Provider + [phone] Encounter Details Date Type Department Care Team (Late st Contact Info) Description 03/15/2022 Transcribed Document [facility] [place] Medicine [address] [place] [address] ProviderRocael MD [address] [place] [address] Social History Tobacco Use Types Packs/Day Years Used Date Smoking Tobacco: Never Assessed Sex and Gender Information Value Date Recorded Sex Assigned at Not on file Legal Sex Male 11:25 AM CDT Gender Identity Not on file Sexual Orientation Not on file documented as of this encounter Miscellaneous Notes * Cerner Conversion Note - Historical ProviderMD - 03/15/2022 11:58 AM CDT [address] [address] JU DAVE :1975 Visit Time:03/13/2022 [...] When Within 1 to 2 weeks Where: [address] [place] [address] [place] [address]- Follow Up with BRIAN, UNKNOWN When Within 2 to 3 days Medications What How Much When Instructions Next Dose folic acid (folic acid 1 mg oral tablet) 1 Tablet(s) Oral Every Day Pickup at [facility] 03/16 9am hydroCHLOROthiazide (hydroCHLOROthiazide 25 mg oral tablet) 1 Tablet(s) Oral Every Day Pickup at [facility] 03/16 9am levoFLOXacin (Levaquin 750 mg oral tablet) 1 Tablet(s) Oral Interval Every 24 Hours Duration: 5 Day(s) Pickup at [facility] 03/16 3PM ondansetron (Zofran 4 mg oral tablet) 1 Tablet(s) Oral Every 8 Hours as needed for Nausea/Vomiting Duration: 3 Day(s) Pickup at [facility] as needed phenazopyridine (phenazopyridine 95 mg oral tablet) 1 Tablet(s) Oral Three Times A Day as needed for Pain Duration: 2 Day(s) Pickup at [facility] NEEDED buprenorphine-naloxone (Suboxone 8 mg-2 mg sublingual [...] Every Day 03/16 9pm Pharmacy Information [facility]: [address] [address] [address] [place] [phone] Take your medications faithfully. Do NOT skip [...] These discussions are confidential. ??? The National [place] on Alcoholism and Drug Dependence (NCADD). This group has information about treatment centers and programs for people who have an addiction and for family members. ? Call: 4-955-JSS-CALL ( ). ? Visit the website: https://www.ncadd.org/ ??? The Substance Abuse and Mental Health Services Administration (SAMHSA). This organization will help you find publicly funded treatment centers, help hotlines, and counseling services near you. ? Call: 8-617-256-HELP ( ). ? Visit the website: www.findtreatment.samhsa.gov ??? The National Problem Gambling Helpline. This is a 24-hour confidential helpline for gambling addiction. ? Call: ? Visit the website: https://www.[employer].org/ In countries outside of the [place] and [...] provider. Document Revised: 06/09/2021 Document Reviewed: 07/10/2018 Home Inventory S[pecialists Patient Education ?? 2021 Home Inventory [employer] Kidney Stones Kidney stones are rock-like [...] these instructions at home: Medicines ??? Take zbth-slx-edgewcu and prescription medicines only as told by [...] provider. Document Revised: 10/24/2019 Document Reviewed: 10/28/2019 Home Inventory S[pecialists Patient Education ?? 2021 viseto. phenazopyridine (fen AY sonali PIR i shelby) [...] or ?? a genetic enzyme deficiency called shyvmnr-8-kqgeomjbl dehydrogenase (G6PD) deficiency. FDA category B. Phenazopyridine [...] may report side effects to FDA at 5-977-DQE-4782. What other drugs will affect phenazopyridine? Other drugs may interact with phenazopyridine, including prescription and jwce-cha-uqgffbk medicines, vitamins, and herbal products. Tell each [...] to ensure that the information provided by [employer]. ('[employer]') is accurate, up-to-date, and complete, but no guarantee is made to that effect. Drug information contained herein may be time sensitive. [employer] information has been compiled for use by healthcare practitioners and consumers in the [place] and therefore [employer] does not warrant that uses outside of the [place] are appropriate, unless specifically indicated otherwise. [employer] drug information does not endorse drugs, diagnose patients or recommend therapy. [employer] drug information is an informational resource designed [...] effective or appropriate for any given patient. [employer] does not assume any responsibility for any aspect of healthcare administered with the aid of information [employer] provides. The information contained herein is not intended to cover all possible uses, directions, precautions, warnings, drug interactions, allergic reactions, or adverse effects. If you have questions about the drugs you are taking, check with your doctor, nurse or pharmacist. Copyright 0194-6940 [employer]. Version: 3.05. Revision Date: 10/16/2013. folic acid [...] may report side effects to FDA at 3-680-LZO-6546. What other drugs will affect folic acid? Tell your doctor about all your other medicines, especially: ?? methotrexate; ?? nitrofurantoin; ?? pyrimethamine; ?? tetracycline; ?? a barbiturate such as phenobarbital or secobarbital; or ?? seizure medicine such as phenytoin or primidone. This list is not complete. Other drugs may affect folic acid, including prescription and mpyd-yaa-oiryden medicines, vitamins, and herbal products. Not all [...] to ensure that the information provided by [employer]. ('[employer]') is accurate, up-to-date, and complete, but no guarantee is made to that effect. Drug information contained herein may be time sensitive. [employer] information has been compiled for use by healthcare practitioners and consumers in the [place] and therefore [employer] does not warrant that uses outside of the [place] are appropriate, unless specifically indicated otherwise. [employer] drug information does not endorse drugs, diagnose patients or recommend therapy. [employer] drug information is an informational resource designed [...] effective or appropriate for any given patient. [employer] does not assume any responsibility for any aspect of healthcare administered with the aid of information [employer] provides. The information contained herein is not intended to cover all possible uses, directions, precautions, warnings, drug interactions, allergic reactions, or adverse effects. If you have questions about the drugs you are taking, check with your doctor, nurse or pharmacist. Copyright 9583-2287 [employer]. Version: 6.02. Revision Date: 01/25/2021. levofloxacin (oral) [...] What is levofloxacin? Levofloxacin is a fluoroquinolone (zcfy-t-TMYK-o-lone) antibiotic that fights bacteria in the body. [...] may report side effects to FDA at 5-510-PEE-5670. What other drugs will affect levofloxacin? Some [...] drugs may affect levofloxacin, including prescription and tqjo-dvm-birwaau medicines, vitamins, and herbal products. Not all [...] to ensure that the information provided by [employer]. ('Multum') is accurate, up-to-date, and complete, but no guarantee is made to that effect. Drug information contained herein may be time sensitive. [employer] information has been compiled for use by healthcare practitioners and consumers in the [place] and therefore [employer] does not warrant that uses outside of the [place] are appropriate, unless specifically indicated otherwise. [employer]'s drug information does not endorse drugs, diagnose patients or recommend therapy. [employer]'s drug information is an informational resource designed [...] effective or appropriate for any given patient. [facility] does not assume any responsibility for any aspect of healthcare administered with the aid of information [facility] provides. The information contained herein is not intended to cover all possible uses, directions, precautions, warnings, drug interactions, allergic reactions, or adverse effects. If you have questions about the drugs you are taking, check with your doctor, nurse or pharmacist. Copyright 7682-6417 [employer]. Version: 14.. Revision Date: 07/01/2018. tamsulosin (negro [...] may report side effects to FDA at 7-426-YAG-3999. What other drugs will affect tamsulosin? Tell [...] may affect tamsulosin. This includes prescription and oxti-uqc-dtyzluh medicines, vitamins, and herbal products. Not all [...] to ensure that the information provided by [employer]. ('[employer]') is accurate, up-to-date, and complete, but no guarantee is made to that effect. Drug information contained herein may be time sensitive. [employer] information has been compiled for use by healthcare practitioners and consumers in the [place] and therefore [employer] does not warrant that uses outside of the [place] are appropriate, unless specifically indicated otherwise. [employer] drug information does not endorse drugs, diagnose patients or recommend therapy. [employer] drug information is an informational resource designed [...] effective or appropriate for any given patient. [employer] does not assume any responsibility for any aspect of healthcare administered with the aid of information [employer] provides. The information contained herein is not intended to cover all possible uses, directions, precautions, warnings, drug interactions, allergic reactions, or adverse effects. If you have questions about the drugs you are taking, check with your doctor, nurse or pharmacist. Copyright 3411-9182 [employer] [facility]. Version: 9.02. Revision Date: 11/07/2018. ondansetron [...] may report side effects to FDA at 5-864-FRY-7122. What other drugs will affect ondansetron? Ondansetron [...] interact with ondansetron. This includes prescription and fjyv-vim-bxtmiyd medicines, vitamins, and herbal products. Give a [...] to ensure that the information provided by [employer]. ('Multum') is accurate, up-to-date, and complete, but no guarantee is made to that effect. Drug information contained herein may be time sensitive. [employer] information has been compiled for use by healthcare practitioners and consumers in the [place] and therefore [employer] does not warrant that uses outside of the [place] are appropriate, unless specifically indicated otherwise. [employer]'s drug information does not endorse drugs, diagnose patients or recommend therapy. [facility] drug information is an informational resource designed [...] effective or appropriate for any given patient. [facility] does not assume any responsibility for any aspect of healthcare administered with the aid of information [facility] provides. The information contained herein is not intended to cover all possible uses, directions, precautions, warnings, drug interactions, allergic reactions, or adverse effects. If you have questions about the drugs you are taking, check with your doctor, nurse or pharmacist. Copyright 5703-6486 [facility]. Version: 13.01. Revision Date: 04/14/2016. hydrochlorothiazide (JAVON kayleen eason THY thieron hernandez) What is the most important information [...] may report side effects to FDA at 9-981-MNR-5696. What other drugs will affect hydrochlorothiazide? Taking [...] drugs may affect hydrochlorothiazide, including prescription and iqme-erb-sagjnki medicines, vitamins, and herbal products. Not all [...] to ensure that the information provided by [employer]. ('Multum') is accurate, up-to-date, and complete, but no guarantee is made to that effect. Drug information contained herein may be time sensitive. [employer] information has been compiled for use by healthcare practitioners and consumers in the [place] and therefore [employer] does not warrant that uses outside of the [place] are appropriate, unless specifically indicated otherwise. [employer] drug information does not endorse drugs, diagnose patients or recommend therapy. [employer] drug information is an informational resource designed [...] effective or appropriate for any given patient. [employer] does not assume any responsibility for any aspect of healthcare administered with the aid of information [employer] provides. The information contained herein is not intended to cover all possible uses, directions, precautions, warnings, drug interactions, allergic reactions, or adverse effects. If you have questions about the drugs you are taking, check with your doctor, nurse or pharmacist. Copyright 9089-5708 [employer]. Version: 13.01. Revision Date: 08/03/2020. Emergency Awareness and Preventative Care STROKE is an EMERGENCY Every Minute Counts Act FAST and Check for these signs: FACE Does the face look uneven? ARM documented in this encounter Plan of Treatment Not on file documented as of this encounter Visit Diagnoses Not on filedocumented in this encounter Care Teams Grades 1 6 Tutor Relationship Specialty Start Date End Date Merlin Egan MD [facility] [place] [address] PCP - General Family Medicine 04/18/22 12/12/23 Aj Valentine MD [address] [place] [address] PCP - General Adolescent Medicine 12/13/23 11/02/24 Tim Rey MD [address] [place] [address] PCP - General Family Medicine 11/03/24 documented as of this encounter
--- OUTSIDE RECORDS SUMMARY | 2024-12-02 07:57 | XMS_ITS | Encounter Summary ---
Author Organization [facility] In iatives Address [address] [place] [address] Care Team Providers Care Outpatient Therapist Name Role Phone Merlin Egan MD Primary Care Provider + [phone] Aj Valentine MD Primary Care Provider + [phone] Tim Rey MD Primary Care Provider + [phone] Encounter Details Date Type Department Care Team (Late st Contact Info) Description 03/13/2022 Transcribed Document [facility] Family Medicine [address] [place] [address] ProviderRocael MD [address] [place] [address] Social History Tobacco Use Types Packs/Day [...] - 03/13/2022 14:01 EDT Electronically signed by [facility], [facility] Conversion Calculating Machine Operator Cerner at 10/10/2022 4:23 PM CDT documented in this encounter Plan of Treatment Not on file documented as of this encounter Visit Diagnoses Not on filedocumented in this encounter Care Teams Outpatient Therapist Relationship Specialty Start Date End Date Merlin Egan MD [address] [place] [address] [place] [address] PCP - General Family Medicine 04/18/22 12/12/23 Aj Valentine MD [address] [place] [address] PCP - General Adolescent Medicine 12/13/23 11/02/24 Tim Rey MD [address] [place] [address] PCP - General Family Medicine 11/03/24 documented as of this encounter
--- OUTSIDE RECORDS SUMMARY | 2024-12-02 07:57 | XMS_ITS | Encounter Summary ---
Author Organization [facility] In iatives Address [address] [place] [address] Care Team Providers Care Lands Resource Manager Name Role Phone Merlin Egan MD Primary Care Provider + [phone] Aj Valentine MD Primary Care Provider + [phone] Tim Rey MD Primary Care Provider + [phone] Encounter Details Date Type Department Care Team (Late st Contact Info) Description 03/13/2022 Transcribed Document [facility] Family Medicine [address] [place] [address] ProviderRocael MD [address] [place] [address] Social History Tobacco Use Types Packs/Day [...] On: 03/13/2022 13:17 EDT by Yamilka Vega, Experiential Therapist-Health Unit Coord Phone Call for Consults Consult Reason : chestpain, hx cocaine, tob, etoh, amphetamine Physician Requesting Consult : ZEINAB DAWSON MD-INT Physician Requested for Consult : KENJI MENDOZA MD-CAR Date and Time Call Returned : 03/13/2022 14:45 EDT Yamilka Vega, Experiential Therapist-Health Unit [facility] - 03/13/2022 14:45 EDT Electronically signed by [facility], [facility] Conversion Furnishings Conservator Cerner at 10/10/2022 4:00 PM CDT documented in this encounter Plan of Treatment Not on file documented as of this encounter Visit Diagnoses Not on filedocumented in this encounter Care Teams Lands Resource Manager Relationship Specialty Start Date End Date Merlin Egan MD [address] [place] [address] [place] [address] PCP - General Family Medicine 04/18/22 12/12/23 Aj Valentine MD [address] [place] [address] PCP - General Adolescent Medicine 12/13/23 11/02/24 Tim Rey MD [address] [place] [address] PCP - General Family Medicine 11/03/24 documented as of this encounter
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
--- OUTSIDE RECORDS SUMMARY | 2024-12-02 07:57 | XMS_ITS | Encounter Summary ---
Author Organization [facility] In iatives Address [address] [place] [address] Care Team Providers Care Bacteriologist Soil Name Role Phone Merlin Egan MD Primary Care Provider + [phone] Aj Valentine MD Primary Care Provider + [phone] Tim Rey MD Primary Care Provider + [phone] Encounter Details Date Type Department Care Team (Late st Contact Info) Description 03/14/2022 Transcribed Document [facility] Family Medicine [address] [place] [address] ProviderRocael MD [address] [place] [address] Social History Tobacco Use Types Packs/Day Years Used Date Smoking Tobacco: Never Assessed Sex and Gender Information Value Date Recorded Sex Assigned at Not on file Legal Sex Male 11:25 AM CDT Gender Identity Not on file Sexual Orientation Not on file documented as of this encounter Miscellaneous Notes * Cerner Conversion Note - Historical ProviderMD - 03/14/2022 2:00 AM CDT Leadership Development Consultant Details Entered On: 03/14/2022 3:03 EDT Performed [...] 03/14/2022 3:03 EDT Electronically signed by [facility] Conversion Agribusiness Internship Cerner at 10/10/2022 4:25 PM CDT documented in this encounter Plan of Treatment Not on file documented as of this encounter Visit Diagnoses Not on filedocumented in this encounter Care Teams Bacteriologist Soil Relationship Specialty Start Date End Date Merlin Egan MD [address] [place] [address] PCP - General Family Medicine 04/18/22 12/12/23 Aj Valentine MD [address] [facility] [address] [place] [address] PCP - General Adolescent Medicine 12/13/23 11/02/24 Tim Rey MD [address] [facility] [address] [place] [address] PCP - General Family Medicine 11/03/24 documented as of this encounter
--- OUTSIDE RECORDS SUMMARY | 2024-12-02 07:57 | XMS_ITS | Encounter Summary ---
Author Organization [facility] In iatives Address [address] [place] [address] Care Team Providers Care Puttier Name Role Phone Merlin Egan MD Primary Care Provider + [phone] Aj Valentine MD Primary Care Provider + [phone] Tim Rey MD Primary Care Provider + [phone] Encounter Details Date Type Department Care Team (Late st Contact Info) Description 03/14/2022 Transcribed Document [facility] Family Medicine [address] [place] [address] ProviderRocael MD [address] [place] [address] Social History Tobacco Use Types Packs/Day [...] DAVE /Sex: 1975 Male Med Rec #: [id number] Physician: STELLA WISEMAN MD Financial #: [id number] Pt. Type: I Room/Bed: [facility]/ Admit/Disch: 03/13/22 12:32:00 - Institution: [facility] OR PACU Case Times Entry 1 In PACU I 03/14/22 17:54:00 Ready for PACU 03/14/22 18:26:00 Discharge Discharge from PACU 03/14/22 18:26:00 I Last Modified By: GABRIELLE NASSAR 03/14/22 18:20:22 Finalized By: GABRIELLE NASSAR Document Signatures Signed By: GABRIELLE NASSAR 03/14/22 18:21 Electronically signed by [facility] Conversion Linux Solaris Administrator Cerner at 10/10/2022 4:08 PM CDT documented in this encounter Plan of Treatment Not on file documented as of this encounter Visit Diagnoses Not on filedocumented in this encounter Care Teams Puttier Relationship Specialty Start Date End Date Merlin Egan MD [address] [place] [address] [place] [address] PCP - General Family Medicine 04/18/22 12/12/23 Aj Valentine MD [address] [place] [address] PCP - General Adolescent Medicine 12/13/23 11/02/24 Tim Rey MD [address] [place] [address] PCP - General Family Medicine 11/03/24 documented as of this encounter
--- OUTSIDE RECORDS SUMMARY | 2024-12-02 07:57 | XMS_ITS | Encounter Summary ---
Author Organization [facility] In iatives Address [address] [place] [address] Care Team Providers Care Machine Stamper Name Role Phone Merlin Egan MD Primary Care Provider + [phone] Aj Valentine MD Primary Care Provider + [phone] Tim Rey MD Primary Care Provider + [phone] Encounter Details Date Type Department Care Team (Late st Contact Info) Description 03/14/2022 Transcribed Document [facility] Family Medicine [address] [place] [address] ProviderRocael MD [address] [place] [address] Social History Tobacco Use Types Packs/Day [...] DAVE /Sex: 1975 Male Med Rec #: [id number] Physician: STELLA WISEMAN MD Financial #: [id number] Pt. Type: I Room/Bed: [facility]/1 Admit/Disch: 03/13/22 12:32:00 - Institution: [facility] PreOp Case Times Entry 1 In Preop 03/14/22 15:10:00 Ready for Holding n/a Room Patient Ready for 03/14/22 15:45:00 Surgery Patient Out of Preop 03/14/22 17:32:00 Patient Out of n/a Holding Room Last Modified By: Radha Pascal RN 03/14/22 17:32:22 Hussain PreOp Case Times Audit 03/14/22 17:32:22 Vulcanizer: [email or web address] Modifier: [email or web address] <+> 1 Patient Out of Preop Finalized By: Radha Pascal, RN Document Signatures Signed By: Radha Pascal RN 03/14/22 17:32 Electronically signed by [facility]iels [facility] Conversion Mission Systems Engineer Cerner at 10/10/2022 4:00 PM CDT documented in this encounter Plan of Treatment Not on file documented as of this encounter Visit Diagnoses Not on filedocumented in this encounter Care Teams Machine Stamper Relationship Specialty Start Date End Date Merlin Egan MD [address] [place] [address] [place] [address] PCP - General Family Medicine 04/18/22 12/12/23 Aj Valentine MD [address] [facility] [address] [place] [address] PCP - General Adolescent Medicine 12/13/23 11/02/24 Tim eRy MD [address] [place] [address] PCP - General Family Medicine 11/03/24 documented as of this encounter
--- OUTSIDE RECORDS SUMMARY | 2024-12-02 07:57 | XMS_ITS | Encounter Summary ---
Author Organization [facility] In iatives Address [address] [place] [address] Care Team Providers Care Bead Wire Taper Name Role Phone Merlin Egan MD Primary Care Provider + [phone] Aj Valentine MD Primary Care Provider + [phone] Tmi Rey MD Primary Care Provider + [phone] Encounter Details Date Type Department Care Team (Late st Contact Info) Description 03/13/2022 Transcribed Document [facility] Family Medicine [address] [place] [address] ProviderRocael MD [address] [place] [address] Social History Tobacco Use Types Packs/Day [...] - 03/13/2022 14:01 EDT Electronically signed by [facility], [facility] Conversion Dryerman/Woman Cerner at 10/10/2022 4:21 PM CDT documented in this encounter Plan of Treatment Not on file documented as of this encounter Visit Diagnoses Not on filedocumented in this encounter Care Teams Bead Wire Taper Relationship Specialty Start Date End Date Merlin Egan MD [address] [facility] [place] [address] PCP - General Family Medicine 04/18/22 12/12/23 Aj Valentine MD [address] [place] [address] PCP - General Adolescent Medicine 12/13/23 11/02/24 Tim Rey MD [address] [place] [address] PCP - General Family Medicine 11/03/24 documented as of this encounter
--- OUTSIDE RECORDS SUMMARY | 2024-12-02 07:57 | XMS_ITS | Encounter Summary ---
Author Organization [facility] In iatives Address [address] [place] [address] Care Team Providers Care Out Of Town Collection Clerk Name Role Phone Merlin Egan MD Primary Care Provider + [phone] Aj Valentine MD Primary Care Provider + [phone] Tim Rey MD Primary Care Provider + [phone] Encounter Details Date Type Department Care Team (Late st Contact Info) Description 03/13/2022 Transcribed Document [facility] [address] [place] [address] Zackary Dawson MD [address] [place] [address] Social History Tobacco Use Types Packs/Day Years [...] kidney stones in the past presents to [facility] with a 2-3 2 to 3-day history [...] and requested that he be transferred to [facility] for evaluation. This afternoon patient denies any [...] abuse, cocaine, amphetamines on tox screen in [facility] tobacco abuse- nicotine patch gi prop- pepcid [...] on filedocumented in this encounter Care Teams Out Of Town Collection Clerk Relationship Specialty Start Date End Date Merlin Egan MD [address] [place] [address] PCP - General Family Medicine 04/18/22 12/12/23 Aj Valentine MD [address] [place] [address] PCP - General Adolescent Medicine 12/13/23 11/02/24 Tim Rey MD [address] [place] [address] PCP - General Family Medicine 11/03/24 documented as of this encounter
--- OUTSIDE RECORDS SUMMARY | 2024-12-02 07:57 | XMS_ITS | Encounter Summary ---
Author Organization [facility] In iatives Address [address] [place] [address] Care Team Providers Care Supervisor Telephone Information Name Role Phone Merlin Egan MD Primary Care Provider + [phone] Aj Valentine MD Primary Care Provider + [phone] Tim Rey MD Primary Care Provider + [phone] Encounter Details Date Type Department Care Team (Late st Contact Info) Description 03/13/2022 Transcribed Document [facility] Family Medicine [address] [place] [address] ProviderRocael MD [address] [place] [address] Social History Tobacco Use Types Packs/Day [...] - 03/13/2022 19:57 EDT Electronically signed by [facility], [facility] Conversion Land Classifier Cerner at 10/15/2022 2:00 PM CDT documented in this encounter Plan of Treatment Not on file documented as of this encounter Visit Diagnoses Not on filedocumented in this encounter Care Teams Supervisor Telephone Information Relationship Specialty Start Date End Date Merlin Egan MD [address] [place] [address] [place] [address] PCP - General Family Medicine 04/18/22 12/12/23 Aj Valentine MD [address] [place] [address] PCP - General Adolescent Medicine 12/13/23 11/02/24 Tim Rey MD [address] [place] [address] [place] [address] PCP - General Family Medicine 11/03/24 documented as of this encounter
--- OUTSIDE RECORDS SUMMARY | 2024-12-02 07:57 | XMS_ITS | Clinical Summary ---
Author Organization [employer] Address [address] [place] [address] Care Team Providers Care Supervisor Pumping Name Role Phone Tim Rey MD Primary Care Provider [phone] Allergies Active Allergy Reactions Criticality Noted Date [...] 30 days. 60 tablet 5 12/02/19 25 prazosin (MINIPRESS) 2 MG capsule Take 1 capsule (2 mg total) by mouth nightly for 30 days. 30 capsule 5 12/02/19 25 chlordiazePOXID E (LIBRIUM) 10 MG capsule Take [...] Type Department Care Team Description 11/03/2024 Telephone [facility] [address] [place] [address] Tim Rey MD Hospital Follow Up 10/26/2024 12:59 PM EDT - 11/01/2024 2:11 PM EDT Hospital Encounter [facility] Intensive Care Unit [address] [place] [address] Michael Matthews MD Nuss, James, [...] your living situation today? I have a [facility] place to live 10/26/2024 Think about the [...] Do you speak a language other than Thai at ho va? No 10/26/2024 Do you want help with [...] Completed 12/09/2023 Medical Devices Implanted Type Area Bus Starter Device Identifier Shelf Expiration Date Model / Serial / Lot Stent Uret Braid + [id number] - [id number] Implanted:Qty : 1 on 04/18/2022 by Aj Gotti MD at [facility] IMPLANTS N/A: [employer]:UROLOGY/GYNE COLOGY 06/26/2024 [id number] / / [id number] Description:STENT Procedures Procedure Name Priority Date/Time Associated [...] 10.5 K/ L 10/31/2024 5:46 AM EDT [facility] RBC 4.11(L) 4.70 - 6.00 M/ L 10/31/2024 5:46 AM EDT [facility] Hemoglobin 12.0(L) 13.2 - 18.0 GM/DL 10/31/2024 5:46 AM EDT [facility] Hematocrit 39.3(L) 42.0 - 52.0 % 10/31/2024 5:46 AM EDT [facility] MCV 96 78 - 100 fL 10/31/2024 5:46 AM EDT [facility] MCH 29.2 27.0 - 31.0 pg 10/31/2024 5:46 AM EDT [facility] MCHC 30.5(L) 32.0 - 36.0 GM/DL 10/31/2024 5:46 AM EDT [facility] RDW 14.8(H) 11.5 - 14.0 % 10/31/2024 5:46 AM EDT [facility] Platelets 215 150 - 400 K/CU MM 10/31/2024 5:46 AM EDT [facility] MPV 10.3(H) 6.0 - 9.5 fL 10/31/2024 5:46 AM EDT [facility] nRBC 0 /100 WBC 10/31/2024 5:46 AM EDT [facility] Blood Venipuncture / Unknown 10/31/2024 5:19 AM EDT 10/31/2024 5:40 AM EDT us Piyush Frey MD LAB BLOOD ORDERABLES Fi nal Result Performing Organization Address City/[facility]/ZIP Code Phone Number [facility] [address] [phone] * (ABNORMAL) Phosphorus (10/31/2024 5:19 AM EDT) Only the most recent of2 resultswithin the time period is included. Phosphorus 4.9(H) 2.6 - 4.7 mg/dL 10/31/2024 6:08 AM EDT [facility] Blood Venipuncture / Unknown 10/31/2024 5:19 AM EDT 10/31/2024 5:40 AM EDT us Piyush Frey MD LAB BLOOD ORDERABLES Fi nal Result Performing Organization Address City/[facility]/ZIP Code Phone Number [facility] [address] [place] [address], [facility] [phone] * (ABNORMAL) Magnesium (10/31/2024 5:19 AM EDT) Only the most recent of4 resultswithin the time period is included. Magnesium 1.6(L) 1.8 - 2.4 mg/dL 10/31/2024 6:08 AM EDT [facility] Blood Venipuncture / Unknown 10/31/2024 5:19 AM EDT 10/31/2024 5:40 AM EDT us Piyush Frey MD LAB BLOOD ORDERABLES Fi nal Result [facility] [address] [phone] * (ABNORMAL) Basic Metabolic Panel (10/31/2024 5:19 AM EDT) Only the most recent of2 resultswithin the time period is included. Sodium 136 136 - 145 meq/L 10/31/2024 6:08 AM [facility] Potassium 5.1 3.5 - 5.1 meq/L 10/31/2024 6:08 AM [facility] Chloride 103 98 - 107 meq/L 10/31/2024 6:08 AM [facility] CO2 28 21 - 32 meq/L 10/31/2024 6:08 AM [facility] Anion Gap 10(L) 11 - 21 10/31/2024 6:08 AM [facility] BUN 14 7 - 18 mg/dL 10/31/2024 6:08 AM [facility] Creatinine 0.68 0.67 - 1.17 mg/dL 10/31/2024 6:08 AM [facility] BUN/Creatinine 21 10/31/2024 6:08 AM [facility] Glucose 93 74 - 106 mg/dL 10/31/2024 6:08 AM [facility] Calcium 9.1 8.5 - 10.1 mg/dL 10/31/2024 6:08 AM [facility] Osmolality Calc 272.1 mOsm/kg 6:08 AM [facility] eGFR (mL/min/1.73m2) >60 >=60 mL/min/1.7 3m2 10/31/2024 6:08 AM [facility] Comment:eGFR of <60 suggests chronic kidney disease if found over a 3 month period of time. eGFR <15 indicates renal failure. Blood Venipuncture / Unknown 10/31/2024 5:19 AM EDT 10/31/2024 5:40 AM EDT us Piyush Frey MD LAB BLOOD ORDERABLES Fi nal Result [facility] [address] [phone] * (ABNORMAL) Comprehensive metabolic panel (10/29/2024 5:54 AM EDT) Only the most recent of3 resultswithin the time period is included. Sodium 135(L) 136 - 145 meq/L 10/29/2024 6:24 AM EDT [facility] Potassium 4.5 3.5 - 5.1 meq/L 10/29/2024 6:24 AM EDT [facility] Chloride 100 98 - 107 meq/L 10/29/2024 6:24 AM T [facility] CO2 28 21 - 32 meq/L 10/29/2024 6:24 AM T [facility] Calcium 9.4 8.5 - 10.1 mg/dL 10/29/2024 6:24 AM [facility] Glucose 115(H) 74 - 106 mg/dL 10/29/2024 6:24 AM EDT [facility] BUN 8 7 - 18 mg/dL 10/29/2024 6:24 AM EDT [facility] Creatinine 0.64(L) 0.67 - 1.17 mg/dL 10/29/2024 6:24 AM T [facility] BUN/Creatinine 13 10/29/2024 6:24 AM T [facility] Albumin 3.1(L) 3.4 - 5.0 g/dL 10/29/2024 6:24 AM EDT [facility] Alkaline Phosphatase 83 46 - 116 U/L 10/29/2024 6:24 AM EDT [facility] ALT 16 16 - 63 U/L 10/29/2024 6:24 AM EDT [facility] AST 26 15 - 37 U/L 10/29/2024 6:24 AM EDT [facility] Total Bilirubin 0.4 0.2 - 1.0 mg/dL 10/29/2024 6:24 AM EDT [facility] Protein, Total 7.3 6.4 - 8.2 gm/dL 10/29/2024 6:24 AM EDT [facility] Anion Gap 12 11 - 21 10/29/2024 6:24 AM EDT [facility] A/G Ratio 0.7 10/29/2024 6:24 AM EDT [facility] Globulin 4.2 g/dL 10/29/2024 6:24 AM EDT [facility] Osmolality Calc 269.3 mOsm/kg 6:24 AM T [facility] eGFR (mL/min/1.73m2) >60 >=60 mL/min/1.7 3m2 10/29/2024 6:24 AM T [facility] Comment:ESTIMATED GFR IS NOT ACCURATE CREATININE CLEARANCE IN PREDICTING GLOMERULAR FILTRATION RATE. ESTIMATED GFR IS NOT APPLICABLE FOR DIALYSIS PATIENTS. Blood Venipuncture / Unknown 10/29/2024 5:54 AM EDT 10/29/2024 5:57 AM EDT us Piyush Frey MD LAB BLOOD ORDERABLES Fi nal Result [facility] [address] [phone] * (ABNORMAL) CBC with automated diff (10/28/2024 5:41 AM EDT) Only the most recent of3 resultswithin the time period is included. WBC 8.3 4.0 - 10.5 K/ L 10/28/2024 6:44 AM EDT [facility] RBC 4.04(L) 4.70 - 6.00 M/ L 10/28[facility]2024 [facility] Hemoglobin 12.1(L) 13.2 - 18.0 GM/DL 10/28/2024 6:44 AM [facility] Hematocrit 37.9(L) 42.0 - 52.0 % 10/28/2024 6:44 AM [facility] MCV 94 78 - 100 fL 10/28/2024 6:44 AM [facility] MCH 30.0 27.0 - 31.0 pg 10/28/2024 6:44 AM [facility] MCHC 31.9(L) 32.0 - 36.0 GM/DL 10/28/2024 6:44 AM [facility] RDW 14.6(H) 11.5 - 14.0 % 10/28/2024 6:44 AM [facility] Platelets 161 150 - 400 K/CU MM 10/28/2024 6:44 AM [facility] MPV 12.4(H) 6.0 - 9.5 fL 10/28/2024 6:44 AM [facility] Nucleated Red Blood Cell 0.0 0 - 0.2 % 10/28/2024 6:44 AM [facility] % Neutros 62 41 - 80 % 10/28/2024 6:44 AM [facility] % Lymphs 25 15 - 48 % 10/28/2024 6:44 AM [facility] % Monos 8 0 - 12 % 10/28/2024 6:44 AM [facility] % Eos 4 0 - 5 % 10/28/2024 6:44 AM [facility] % Baso 1 0 - 2 % 10/28/2024 6:44 AM [facility] # Neutros 5.12 1.56 - 6.13 K/ L 10/28/2024 6:44 AM [facility] # Lymphs 2.06 K/ L 10/28/2024 6:44 AM [facility] # Monos 0.69 0.24 - 0.86 K/ L 10/28/2024 6:44 AM [facility] # Eos 0.29 0.04 - 0.54 K/ L 10/28/2024 6:44 AM EDT [facility] # Baso 0.06 0.01 - 0.08 K/ L 10/28/2024 6:44 AM EDT [facility] Immature Granulocytes-Re lative 0.40 0.00 - 0.60 % 10/28/2024 6:44 AM EDT [facility] # IG 0.03 0.00 - 0.05 K/uL 10/28/2024 6:44 AM EDT [facility] Blood Venipuncture / Unknown 10/28/2024 5:41 AM EDT 10/28/2024 6:31 AM EDT Narrative [facility] - 10/28/2024 6:44 AM EDT [...] APRN LAB BLOOD ORDERABLES Final Re sult [facility] [address] [phone] * (ABNORMAL) PROBNP (10/27/2024 6:00 AM EDT) ProBNP (pg/mL) 151(H) <125 pg/mL 10/27/2024 6:40 AM EDT [facility] Blood Venipuncture / Unknown 10/27/2024 6:00 AM EDT 10/27/2024 6:06 AM EDT us Michael Corral MD LAB BLOOD ORDERABLES Final Resul t [facility] [address] [phone] * TSH (10/27/2024 6:00 AM EDT) TSH 1.599 0.358 - 3.740 uIU/mL 10/27/2024 6:40 AM EDT [facility] Blood Venipuncture / Unknown 10/27/2024 6:00 AM EDT 10/27/2024 6:06 AM EDT Michael Corral MD LAB BLOOD ORDERABLES Final Resul t [facility] [address] [phone] * (ABNORMAL) Urinalysis, Reflex Microscopic and Culture If Indicated (10/26/2024 2:07 PM EDT) Color, UA Yellow 10/26/2024 2:18 PM EDT [facility] Clarity, UA Clear 10/26/2024 2:18 PM EDT [facility] Specific [place], UA 1.015 1.005 - 1.030 10/26/2024 2:18 PM EDT [facility] pH, UA 6.0 5.0 - 9.0 10/26/2024 2:18 PM EDT [facility] Leukocytes, UA Negative Negative 10/26/2024 2:18 PM EDT [facility] Nitrite, UA Negative Negative 10/26/2024 2:18 PM EDT [facility] Protein, UA Negative Negative 10/26/2024 2:18 PM EDT [facility] Glucose, UA Negative Negative 10/26/2024 2:18 PM EDT [facility] Ketones, UA Negative Negative 10/26/2024 2:18 PM EDT [facility] Bilirubin, UA Negative Negative 10/26/2024 2:18 PM EDT [facility] Blood, UA Trace(A) Negative 10/26/2024 2:18 PM EDT [facility] Urobilinogen, UA 0.2 mg/dL Normal 10/26/2024 2:18 PM EDT [facility] Specimen Source Urine, Clean Catch 10/26/2024 2:18 PM EDT [facility] Urine URINE SPECIMEN COLLECTION, CLEAN CATCH / Unknown 10/26/2024 2:07 PM EDT 10/26/2024 2:10 PM EDT Sydni Blancas SHANNON URINE ORDERABLES Final Result [facility] [address] [phone] * (ABNORMAL) Triage Drug Screen, Urine (10/26/2024 2:07 PM EDT) Amphetamine Urine Negative Negative 2:18 PM EDT [facility] Barbiturate Screen Negative Negative 2024 2:18 PM EDT [facility] Benzodiazepine Screen Positive(A ) Negative 10/26/2024 2:18 PM EDT [facility] Cocaine (Metab.) Screen Negative Negative 10/26/2024 2:18 PM EDT [facility] MDMA Ur Negative Negative 10/26/2024 2:18 PM EDT [facility] Methadone Screen Negative Negative 10/27/19 2:18 PM EDT [facility] Opiate Screen Negative Negative 10/26/2024 2:18 PM EDT [facility] Phencyclidine Screen Negative Negative 09/2024 2:18 PM EDT [facility] Tricyclic Screen Negative Negative 10/27/19 2:18 PM EDT [facility] Tetrahydrocannabinol Negative Negative 0 09/2024 2:18 PM EDT [facility] Methamphetamine Screen Negative Negative 2:18 PM EDT [facility] Oxycodone Screen Negative Negative 10/27/19 2:18 PM EDT [facility] Urine 10/26/2024 2:07 PM EDT 10/26/2024 2:10 PM EDT Narrative [facility] - 10/26/2024 2:18 PM EDT [...] URINE ORDERABLES Final Result Performing Organization Address [facility]/ZIP Code Phone Number [facility] [address] [phone] * (ABNORMAL) Urinalysis Microscopic Only (10/26/2024 2:07 PM EDT) Pathologist [facility] WBC, UA 0-5 None Seen, 0-5 /HPF 10/26/2024 2:30 PM EDT [facility] RBC, UA 6-10(A) None Seen, Rare /HPF 10/26/2024 2:30 PM EDT [facility] Bacteria, UA Trace(A) None Seen 10/26/2024 2:30 PM EDT [facility] Mucus Trace Trace 10/26/2024 2:30 PM EDT [facility] SQUAMOUS EPITHELIAL Rare None Seen, Rare /HPF 10/26/2024 2:30 PM EDT [facility] Urine URINE SPECIMEN COLLECTION, CLEAN CATCH / Unknown 10/26/2024 2:07 PM EDT 10/26/2024 2:10 PM EDT us Sydni Blancas PA-C URINE ORDERABLES Final Result Performing Organization Address [facility] Code Phone Number [facility] [address] [place] [address], [facility] [phone] * (ABNORMAL) High Sensitivity Troponin I (10/26/2024 1:59 PM EDT) Pathologist [facility] Troponin I High Sensitivity (pg/mL) <4(L) 4 - 60.3 pg/mL 10/26/2024 2:30 PM EDT [facility] Comment: Troponin Result (pg/mL) *Interpretation [...] ORDERABLES Final Resul t Performing Organization Address City/[facility]/ZIP Code Phone Number [facility] [address] [phone] * Lipase (10/26/2024 1:59 PM EDT) Lipase 68 16 - 77 U/L 10/26/2024 2:46 PM EDT [facility] Blood Venipuncture / Unknown 10/26/2024 1:59 PM EDT 10/26/2024 2:02 PM EDT Sydni BHAGAT-C LAB BLOOD ORDERABLES Final Resul t Performing Organization Address City/[facility]/ZIP Code Phone Number [facility] [address] [phone] * Ethanol (10/26/2024 1:59 PM EDT) Ethanol Lvl <3 <3 mg/dL 10/26/2024 2:45 PM EDT [facility] Blood Venipuncture / Unknown 10/26/2024 1:59 PM EDT 10/26/2024 2:02 PM EDT [facility] - 10/26/2024 2:45 PM EDT Lower limit of detection is 10.00 mg/dL. 50-100 mg/dL
Impaired Reflexes: 100-300 mg/dL
Depression of ASSOCIATE PROFESSOR [employer]INAL JUSTICE: 300 mg/dL or >
Coma may occur; 400 mg/dL or >
may occur

This test is not intended for legal purposes or use in employment related testing. Sydni Blancas PA-C LAB BLOOD ORDERABLES Final Resul t [facility] [address] [place] [address], [facility] [phone] * CT brain without IV contrast (10/26/2024 [...] IM CT ORDERABLES Final Result * CT spine [...] present. Procedure Note Stephy Hanson MD - 05/04/2025 CT SCAN OF THE HEAD WITHOUT CONTRAST [...] Transcribed by Rene Diallo(R). Sydni Blancas PA-C [facility] [place] ORDERABLES Final Result * XR chest [...] Antigen Nonreactive Nonreactive 12/09/2023 7:54 PM EDT [facility] Comment: The Combo HIV procedure [...] Desai MD LAB BLOOD ORDERABLES Final Result [facility] [address] [phone] * Lipid panel (12/09/2023 6:07 PM EDT) Triglycerides 31 0 - 249 mg/dL 12/09/2023 9:24 PM EDT [facility] Cholesterol 87 0 - 199 mg/dL 12/09/2023 9:24 PM EDT [facility] Comment: 200 to 239 mg/dL = Moderate (borderline) >239 mg/dL = High HDL Cholesterol 56 >=40 mg/dL 9:24 PM EDT [facility] Comment: >=60 mg/dL = Desirable <40 mg/dL = Increased Risk All other components are listed individually or are calculations VLDL Cholesterol 6.2 5 - 40 mg/dL 12/09/2023 9:24 PM EDT [facility] Cholesterol/HDL ratio 1.6 0.0 - 3.2 12/09/2023 9:24 PM EDT [facility] LDl/HDL Ratio 0 0 - 4 12/09/2023 9:24 PM EDT [facility] RISK COMP 2 12/09/2023 9:24 PM EDT [facility] LDL Cholesterol, Calculated 25 0 - 99 mg/dL 12/09/2023 9:24 PM EDT [facility] Blood Venipuncture / Unknown 12/09/2023 6:07 PM EDT 12/09/2023 6:21 PM EDT Jose Desai MD LAB BLOOD ORDERABLES Final Result [facility] [address] [phone] * (ABNORMAL) Hepatitis panel, acute (12/09/2023 6:06 PM EDT) Hep A IgM Nonreactive Nonreactive, Equivocal 12/09/2023 8:26 PM EDT [facility] Hep B C IgM Nonreactive Nonreactive 12/09/2023 8:26 PM EDT [facility] Hepatitis B surface antigen Nonreactive Nonreactive, Equivocal 12/09/2023 8:26 PM EDT [facility] Hepatitis C Ab Reactive(A) Nonreactive, Equivocal 12/09/2023 8:26 PM EDT [facility] Blood Venipuncture / Unknown 12/09/2023 6:06 PM EDT 12/09/2023 6:21 PM EDT Narrative [facility] - 12/09/2023 8:26 PM EDT [...] Desai MD LAB BLOOD ORDERABLES Final Result [facility] [address] [phone] from Last 3 Months or Most Recently Relevant to Health Maintenance Insurance [place] [facility] Advance Directives For more information, please contact: [phone] Documents on File Type Date Recorded Patient Handkerchief Sample Clerk Expl anation Advance Directives and Livin fatimah Will 04/18/2022 10:13 AM * Full Code (Latest Code Status on File) Date Activated Date Inactivated Comments 12/09/2023 1:56 PM 12/12/2023 1:00 PM Care Teams Supervisor Pumping Relationship Specialty Start Date End Date Tim Rey MD [address] [place] [address] PCP - General Family Medicine 11/03/24
--- OUTSIDE RECORDS SUMMARY | 2024-12-02 07:57 | XMS_ITS | Encounter Summary ---
Author Organization [facility] [employer] Address [address] [place] [address] Care Team Providers Care Computer Applications Instructor Name Role Phone Merlin Egan MD Primary Care Provider + [phone] Aj Valentine MD Primary Care Provider + [phone] Tim Rey MD Primary Care Provider + [phone] Encounter Details Date Type Department Care Team (Late st Contact Info) Description 03/14/2022 Transcribed Document [facility] [place] Family Medicine [address] [place] [address] ProviderRocael MD [address] [place] [address] Social History Tobacco Use Types [...] on filedocumented in this encounter Care Teams Computer Applications Instructor Relationship Specialty Start Date End Date Merlin Egan MD [address] [facility] [place] [address] PCP - General Family Medicine 04/18/22 12/12/23 Aj Valentine MD [address] [place] [address] PCP - General Adolescent Medicine 12/13/23 11/02/24 Tim Rey MD [address] [place] [address] PCP - General Family Medicine 11/03/24 documented as of this encounter
--- OUTSIDE RECORDS SUMMARY | 2024-12-02 07:57 | XMS_ITS | Encounter Summary ---
Author Organization [facility] In [employer] Address [address] [place] [address] Care Team Providers Care Lunchroom Attendant Name Role Phone Merlin Egan MD Primary Care Provider + [phone] Aj Valentine MD Primary Care Provider + [phone] Tim Rey MD Primary Care Provider + [phone] Encounter Details Date Type Department Care Team (Late st Contact Info) Description 03/14/2022 Transcribed Document [facility] [place] [facility] Family Medicine [address] [place] [address] ProviderRocael MD [address] [place] [address] Social History Tobacco Use Types Packs/Day [...] Sent to Post Acute Providers : No [facility] Quality Web Info Shared w Pt/Fam : [...] on filedocumented in this encounter Care Teams Lunchroom Attendant Relationship Specialty Start Date End Date Merlin Egan MD [address] [place] [address] PCP - General Family Medicine 04/18/22 12/12/23 Aj Valentine MD [address] [place] [address] PCP - General Adolescent Medicine 12/13/23 11/02/24 Tim Rey MD [address] [place] [address] PCP - General Family Medicine 11/03/24 documented as of this encounter
--- OUTSIDE RECORDS SUMMARY | 2024-12-02 07:57 | XMS_ITS | Encounter Summary ---
Author Organization [facility] [employer] Address [address] [place] [address] Care Team Providers Care Pipe Fitter Soft Copper Name Role Phone Merlin Egan MD Primary Care Provider + [phone] jA Valentine MD Primary Care Provider + [phone] Tim Rey MD Primary Care Provider + [phone] Encounter Details Date Type Department Care Team (Late st Contact Info) Description 03/15/2022 Transcribed Document [facility] Family Medicine [address] [place] [address] ProviderRocael MD [address] [place] [address] Social History Tobacco Use Types Packs/Day [...] 03/15/2022 6:27 EDT Electronically signed by Niels, [facility] [employer] Warehouse Order Puller Cerner at 10/10/2022 4:23 PM CDT documented in this encounter Plan of Treatment Not on file documented as of this encounter Visit Diagnoses Not on filedocumented in this encounter Care Teams Pipe Fitter Soft Copper Relationship Specialty Start Date End Date Merlin Egan MD [address] [facility] [place] [address] PCP - General Family Medicine 04/18/22 12/12/23 Aj Valentine MD [address] [place] [address] PCP - General Adolescent Medicine 12/13/23 11/02/24 Tim Rey MD [address] [place] [address] PCP - General Family Medicine 11/03/24 documented as of this encounter
--- OUTSIDE RECORDS SUMMARY | 2024-12-02 07:57 | XMS_ITS | Encounter Summary ---
Author Organization [facility] In iatives Address [address] [place] [address] Care Team Providers Care Small Equipment Operator Name Role Phone Merlin Egan MD Primary Care Provider + [phone] Aj Valentine MD Primary Care Provider + [phone] Tim Rey MD Primary Care Provider + [phone] Encounter Details Date Type Department Care Team (Late st Contact Info) Description 03/13/[address] [facility] [place] Family Medicine [address] [place] [address] ProviderRocael MD [address] [place] [address] Social History Tobacco Use Types Packs/Day [...] filedocumented in this encounter Care Teams Small Equipment Operator Relationship Specialty Start Date End Date Merlin Egan MD [address] [place] [address] PCP - General Family Medicine 04/18/22 12/12/23 Aj Valentine MD [address] [place] [address] PCP - General Adolescent Medicine 12/13/23 11/02/24 Tim Rey MD [address] [place] [address] PCP - General Family Medicine 11/03/24 documented as of this encounter
--- OUTSIDE RECORDS SUMMARY | 2024-12-02 07:57 | XMS_ITS | Encounter Summary ---
Author Organization [facility] In iatives Address [address] [place] [address] Care Team Providers Care Blocker Automatic Name Role Phone Merlin Egan MD Primary Care Provider + [phone] Aj Valentine MD Primary Care Provider + [phone] Tim Rey MD Primary Care Provider + [phone] Encounter Details Date Type Department Care Team (Late st Contact Info) Description 03/15/2022 Transcribed Document [facility] [address] [place] [address] ProviderRocael MD [address] [place] [address] Social History Tobacco Use Types Packs/Day [...] on filedocumented in this encounter Care Teams Blocker Automatic Relationship Specialty Start Date End Date Merlin Egan MD [address] [place] [address] [place] [address] PCP - General Family Medicine 04/18/22 12/12/23 Aj Valentine MD [address] [place] [address] PCP - General Adolescent Medicine 12/13/23 11/02/24 Tim Rey MD [address] [place] [address] PCP - General Family Medicine 11/03/24 documented as of this encounter
--- OUTSIDE RECORDS SUMMARY | 2024-12-02 07:57 | XMS_ITS | Encounter Summary ---
Author Organization [facility] [employer] In iatives Address [address] [place] [address] Care Team Providers Care Taco Maker Name Role Phone Merlin Egan MD Primary Care Provider + [phone] Aj Valentine MD Primary Care Provider + [phone] Tim Rey MD Primary Care Provider + [phone] Encounter Details Date Type Department Care Team (Late st Contact Info) Description 03/14/2022 Transcribed Document [facility] [address] [place] [address] ProviderRocael MD [address] [place] [address] Social History Tobacco Use Types Packs/Day [...] 03/14/2022 4:59 EDT Electronically signed by Niels [facility] Conversion Oss Architect Cerner at 10/10/2022 4:07 PM CDT documented in this encounter Plan of Treatment Not on file documented as of this encounter Visit Diagnoses Not on filedocumented in this encounter Care Teams Taco Maker Relationship Specialty Start Date End Date Merlin Egan MD [address] [facility] [place] [address] PCP - General Family Medicine 04/18/22 12/12/23 Aj Valentine MD [address] [place] [address] PCP - General Adolescent Medicine 12/13/23 11/02/24 Tim Rey MD [address] [place] [address] PCP - General Family Medicine 11/03/24 documented as of this encounter
--- OUTSIDE RECORDS SUMMARY | 2024-12-02 07:57 | XMS_ITS | Clinical Summary ---
Author Organization Healthcare Address [facility] [place] [id number] Care Team Providers Care Motion Picture Equipment Supervisor Name Role Phone Julius Anderson Primary Care Provider [phone] Immunizations Immunization Administration Dates Next Due Hep [...] 10/21/2019 Sigmoidoscopy 10/21/2019 UKY-Colorectal Cancer Screening 10/21/2019 [id number]-90 Vaccine (1 - 20 24-25 season) 2024 [...] age to complete this topic Care Teams Motion Picture Equipment Supervisor Relationship Specialty Start Date [place] [address] PCP - General 11/05/20
--- OUTSIDE RECORDS SUMMARY | 2024-12-02 07:57 | XMS_ITS | Encounter Summary ---
Author Organization [facility] In iatives Address [address] [place] [address] Care Team Providers Care Bed Setter Name Role Phone Merlin Egan MD Primary Care Provider + [phone] Aj Valentine MD Primary Care Provider + [phone] Tim Rey MD Primary Care Provider + [phone] Encounter Details Date Type Department Care Team (Late st Contact Info) Description 03/15/2022 Transcribed Document [facility] [place] [address] [place] [address] ProviderRocael MD [address] [place] [address] Social History Tobacco Use Types Packs/Day [...] : Yes Discharge To Care Management : Home/Residential/[facility] or Self Care -01 Sil Pierre RN [...] 03/15/2022 15:58 EDT Electronically signed by [facility] Conversion Livestock Nutritionist Cerner at 10/10/2022 4:10 PM CDT documented in this encounter Plan of Treatment Not on file documented as of this encounter Visit Diagnoses Not on filedocumented in this encounter Care Teams Bed Setter Relationship Specialty Start Date End Date Merlin Egan MD [address] [place] [address] [place] [address] PCP - General Family Medicine 04/18/22 12/12/23 Aj Valentine MD [address] [facility] [address] [place] [address] PCP - General Adolescent Medicine 12/13/23 11/02/24 Tim Rey MD [address] [place] [address] PCP - General Family Medicine 11/03/24 documented as of this encounter
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
--- OUTSIDE RECORDS SUMMARY | 2024-12-02 07:57 | XMS_ITS | Encounter Summary ---
Author Organization [employer] In iatives Address [address] [place] [address] Care Team Providers Care Manufacturing Intern Name Role Phone Merlin Egan MD Primary Care Provider + [phone] Aj Valentine MD Primary Care Provider + [phone] Tim Rey MD Primary Care Provider + [phone] Encounter Details Date Type Department Care Team (Late st Contact Info) Description 03/13/2022 Transcribed Document [facility] [facility] [place] [address] [place] [address] ProviderRocael MD [address] [place] [address] Social History Tobacco Use Types Packs/Day [...] Advance Directive information Landen Wilson RN-PATIENT CARE [facility] NON-EXEMPT - 03/13/2022 13:01 EDT Anesthesia/Transfusion History Family History of Anesthesia Reaction : Prior transfusion without reaction Transfusion History : Prior anesthesia without reaction Family History of Anesthesia Reaction : None Landen Wilson RN-PATIENT CARE [facility] NON-EXEMPT - 03/13/2022 13:01 EDT Functional Assessment Living Situation : Home Patient Lives With : Significant other(s) Current Home Treatments : None Landen Wilson RN-PATIENT CARE [facility] NON-EXEMPT - 03/13/2022 13:01 EDT General Info Support Person/Patient Visitor Services Information Assistant : Yes Support Person/Pt Rep Name : Linda [phone] Want Family/Rep/Phys Notified of Admit : No Emergency Contact #1 : Hazel Bellamy Emergency Contact #1 Emergency Contact #1 Relationship : mom Emergency Contact #2 : none Emergency Contact #2 Phone Number : none Emergency Contact #2 Relationship : none Primary Language : Northern Irish Preferred Communication Mode : Verbal Communication Barrier : None University Librarian Needed : No Landen Wilson RN-PATIENT CARE [facility] NON-EXEMPT - 03/13/2022 13:01 EDT Fall Risk [...] Level : 46 or > High Risk [place] Fall Interventions : Adequate lighting, Assistive devices [...] Source : Chart Height Entry Format : Rooks Height, Feet : 5 ft(Converted to: 152 [...] m2 Body Mass Index : 22 kg/m2 Raymond Body Weight : 67 kg Landen Wilson [...] Assessment < Age 65 : None Landen Wislon RN-PATIENT CARE [facility] NON-EXEMPT - 03/13/2022 13:01 [...] CARE [facility] NON-EXEMPT - 03/13/2022 13:01 EDT [place] Suicide Severity Rating Scale (C-SSRS) CSSRS Past [...] EDT Electronically signed by Harshil Bowser Conversion Truck Driver Rubbish Collector Cerner at 10/10/2022 4:05 PM CDT documented in this encounter Plan of Treatment Not on file documented as of this encounter Visit Diagnoses Not on filedocumented in this encounter Care Teams Manufacturing Intern Relationship Specialty Start Date End Date Merlin Egan MD [address] [facility] [place] [address] PCP - General Family Medicine 04/18/22 12/12/23 Aj Valentine MD [address] [place] [address] PCP - General Adolescent Medicine 12/13/23 11/02/24 Tim Rey MD [address] [place] [address] PCP - General Family Medicine 11/03/24 documented as of this encounter
--- OUTSIDE RECORDS SUMMARY | 2024-12-02 07:57 | XMS_ITS | Encounter Summary ---
Author Organization [facility] [employer] In iatives Address [address] [place] [address] Care Team Providers Care Wind Turbine Sheet Metal Worker Name Role Phone Merlin Egan MD Primary Care Provider + [phone] Aj Valentine MD Primary Care Provider + [phone] Tim Rey MD Primary Care Provider + [phone] Encounter Details Date Type Department Care Team (Late st Contact Info) Description 03/14/2022 Transcribed Document [facility] [place] Family Medicine [address] [place] [address] ProviderRocael MD [address] [place] [address] Social History Tobacco Use Types Packs/Day [...] Levaquin, 750 mg= 150 mL, IV Piggyback, [id number] magnesium sulfate, 2 Gram= 50 mL, IV [...] Lymph # 2.44 K/uL 03/13/2022 14:10 EDT [place] % 7.4 % 03/14/2022 05:16 EDT [place] % 8.3 % 03/13/2022 14:10 EDT [place] # 0.40 K/uL 03/14/2022 05:16 EDT [place] # 0.46 K/uL 03/13/2022 14:10 EDT Eos [...] U Cath 03/13/2022 15:17 EDT Urine Color Dark-Vestal 03/13/2022 15:17 EDT Urine Appearance Turbid (Abnormal) 03/13/2022 15:17 EDT Urine Specific [place] 1.028 03/13/2022 15:17 EDT Urine pH Dipstick [...] mg/dL 03/13/2022 14:11 EDT Electronically signed by [facility], [facility] Conversion Residential Remodeling Subcontractor Cerner at 10/10/2022 4:08 PM CDT documented in this encounter Plan of Treatment Not on file documented as of this encounter Visit Diagnoses Not on filedocumented in this encounter Care Teams Wind Turbine Sheet Metal Worker Relationship Specialty Start Date End Date Merlin Egan MD [address] [place] [address] [place] [address] PCP - General Family Medicine 04/18/22 12/12/23 Aj Valentine MD [address] [place] [address] PCP - General Adolescent Medicine 12/13/23 11/02/24 Tim Rey MD [address] [place] [address] PCP - General Family Medicine 11/03/24 documented as of this encounter
--- OUTSIDE RECORDS SUMMARY | 2024-12-02 07:57 | XMS_ITS | Encounter Summary ---
Author Organization [facility] [employer] Init iatives Address [address] [place] [address] Care Team Providers Care Public Safety Dispatcher Name Role Phone Aj Valentine MD Primary Care Provider + [phone] Encounter Details Date Type Department Care Team [...] your [facility] situation today? [facility] 10/26/2024 Think about [...] Do you speak a language other than [place]ian at [facility]? No 10/26/2024 Do you want [...] on filedocumented in this encounter Care Teams Public Safety Dispatcher Relationship Specialty Start Date End Date Aj Valentine MD [address] [place] [address] PCP - General Adolescent Medicine 12/13/23 11/02/24 documented as of this encounter
--- OUTSIDE RECORDS SUMMARY | 2024-12-02 07:57 | XMS_ITS | Encounter Summary ---
Author Organization [facility] [employer] In iatives Address [address] [place] [address] Care Team Providers Care Electronic Assembler Name Role Phone Merlin Egan MD Primary Care Provider + [phone] Aj Valentine MD Primary Care Provider + [phone] Tim Rey MD Primary Care Provider + [phone] Encounter Details Date Type Department Care Team (Late st Contact Info) Description 03/15/2022 Transcribed Document [facility] [place] [address] [place] [address] ProviderRocael MD [address] [place] [address] Social History Tobacco Use Types Packs/Day [...] - 03/15/2022 18:46 EDT Electronically signed by [facility], [facility] Conversion Edi Programmer Cerner at 10/10/2022 4:03 PM CDT documented in this encounter Plan of Treatment Not on file documented as of this encounter Visit Diagnoses Not on filedocumented in this encounter Care Teams Electronic Assembler Relationship Specialty Start Date End Date Merlin Egan MD [address] [place] [address] PCP - General Family Medicine 04/18/22 12/12/23 Aj Valentine MD [address] [facility] [address] [place] [address] PCP - General Adolescent Medicine 12/13/23 11/02/24 Tim Rey MD [address] [facility] [address] [place] [address] PCP - General Family Medicine 11/03/24 documented as of this encounter
--- OUTSIDE RECORDS SUMMARY | 2024-12-02 07:58 | XMS_ITS | Referral Summary ---
Author Organization [facility] In iatives Address [address] [place] [address] Care Team Providers Care Guard Manager Name Role Phone Tim Rey MD Primary Care Provider [phone]- [phone] Encounters Date Type Department Care Team Description 11/03/2024 Telephone [facility] [address] [place] [address] Tim Rey MD Hospital Follow Up 10/26/2024 12:59 PM EDT - 11/01/2024 2:11 PM EDT Hospital Encounter [facility] Intensive [facility] [address] [place] [address] Michael Matthews MD Nuss, James, [...] Do you speak a language other than Polish at [facility]? No 10/26/2024 Do you want help [...] on file Medical Devices Implanted Type Area Senior Coldfusion Developer Device Identifier Shelf Expiration Date Model / Serial / Lot Stent Uret Braid + [id number] - [id number] Implanted:Qty : 1 on 04/18/2022 by Aj Gotti MD at [facility] IMPLANTS N/A: [employer]:UROLOGY/GYNE COLOGY 06/26/2024 [id number] 20 / / [id number] Description:STENT Procedures Procedure Name Priority Date/Time Associated [...] 10.5 K/ L 10/31/2024 5:46 AM EDT [facility] RBC 4.11(L) 4.70 - 6.00 M/ L 10/31/2024 5:46 AM EDT [facility] Hemoglobin 12.0(L) 13.2 - 18.0 GM/DL 10/31/2024 5:46 AM EDT [facility] Hematocrit 39.3(L) 42.0 - 52.0 % 10/31/2024 5:46 AM EDT [facility] MCV 96 78 - 100 fL 10/31/2024 5:46 AM EDT [facility] MCH 29.2 27.0 - 31.0 pg 10/31/2024 5:46 AM EDT [facility] MCHC 30.5(L) 32.0 - 36.0 GM/DL 10/31/2024 5:46 AM EDT [facility] RDW 14.8(H) 11.5 - 14.0 % 10/31/2024 5:46 AM T [facility] Platelets 215 150 - 400 K/CU MM 10/31/2024 5:46 AM T [facility] MPV 10.3(H) 6.0 - 9.5 fL 10/31/2024 5:46 AM T [facility] nRBC 0 /100 WBC 10/31/2024 5:46 AM [facility] Blood Venipuncture / Unknown 10/31/2024 5:19 AM EDT 10/31/2024 5:40 AM EDT us Piyush Frey MD LAB BLOOD ORDERABLES Fi nal Result [facility] [address] [phone] * (ABNORMAL) Phosphorus (10/31/2024 5:19 AM EDT) Only the most recent of2 resultswithin the time period is included. Phosphorus 4.9(H) 2.6 - 4.7 mg/dL 10/31/2024 6:08 AM EDT [facility] Blood Venipuncture / Unknown 10/31/2024 5:19 AM EDT 10/31/2024 5:40 AM EDT us Piyush Frey MD LAB BLOOD ORDERABLES Fi nal Result Performing Organization Address City/[facility]/ZIP Code Phone Number [facility] [address] [phone] * (ABNORMAL) Magnesium (10/31/2024 5:19 AM EDT) Only the most recent of4 resultswithin the time period is included. Magnesium 1.6(L) 1.8 - 2.4 mg/dL 10/31/2024 6:08 AM EDT [facility] Blood Venipuncture / Unknown 10/31/2024 5:19 AM EDT 10/31/2024 5:40 AM EDT us Piyush Frey MD LAB BLOOD ORDERABLES Fi nal Result Performing Organization Address City/[facility]/ZIP Code Phone Number [facility] [address] [phone] * (ABNORMAL) Basic Metabolic Panel (10/31/2024 5:19 AM EDT) Only the most recent of2 resultswithin the time period is included. Sodium 136 136 - 145 meq/L 10/31/2024 6:08 AM EDT [facility] Potassium 5.1 3.5 - 5.1 meq/L 10/31/2024 6:08 AM EDT [facility] Chloride 103 98 - 107 meq/L 10/31/2024 6:08 AM EDT [facility] CO2 28 21 - 32 meq/L 10/31/2024 6:08 AM EDT [facility] Anion Gap 10(L) 11 - 21 10/31/2024 6:08 AM EDT [facility] BUN 14 7 - 18 mg/dL 10/31/2024 6:08 AM EDT [facility] Creatinine 0.68 0.67 - 1.17 mg/dL 10/31/2024 6:08 AM EDT [facility] BUN/Creatinine 21 10/31/2024 6:08 AM EDT [facility] Glucose 93 74 - 106 mg/dL 10/31/2024 6:08 AM EDT [facility] Calcium 9.1 8.5 - 10.1 mg/dL 10/31/2024 6:08 AM EDT [facility] Osmolality Calc 272.1 mOsm/kg 6:08 AM EDT [facility] eGFR (mL/min/1.73m2) >60 >=60 mL/min/1.7 3m2 10/31/2024 6:08 AM EDT [facility] Comment:eGFR of <60 suggests chronic kidney disease if found over a 3 month period of time. eGFR <15 indicates renal failure. Blood Venipuncture / Unknown 10/31/2024 5:19 AM EDT 10/31/2024 5:40 AM EDT us Piyush Frey MD LAB BLOOD ORDERABLES Fi nal Result [facility] [address] [phone] * (ABNORMAL) Comprehensive metabolic panel (10/29/2024 5:54 AM EDT) Only the most recent of3 resultswithin the time period is included. Sodium 135(L) 136 - 145 meq/L 10/29/2024 6:24 AM EDT [facility] Potassium 4.5 3.5 - 5.1 meq/L 10/29/2024 6:24 AM EDT [facility] Chloride 100 98 - 107 meq/L 10/29/2024 6:24 AM [facility] CO2 28 21 - 32 meq/L 10/29/2024 6:24 AM [facility] Calcium 9.4 8.5 - 10.1 mg/dL 10/29/2024 6:24 AM [facility] Glucose 115(H) 74 - 106 mg/dL 10/29/2024 6:24 AM [facility] BUN 8 7 - 18 mg/dL 10/29/2024 6:24 AM [facility] Creatinine 0.64(L) 0.67 - 1.17 mg/dL 10/29/2024 6:24 AM [facility] BUN/Creatinine 13 10/29/2024 6:24 AM [facility] Albumin 3.1(L) 3.4 - 5.0 g/dL 10/29/2024 6:24 AM [facility] Alkaline Phosphatase 83 46 - 116 U/L 10/29/2024 6:24 AM [facility] ALT 16 16 - 63 U/L 10/29/2024 6:24 AM [facility] AST 26 15 - 37 U/L 10/29/2024 6:24 AM [facility] Total Bilirubin 0.4 0.2 - 1.0 mg/dL 10/29/2024 6:24 AM [facility] Protein, Total 7.3 6.4 - 8.2 gm/dL 10/29/2024 6:24 AM [facility] Anion Gap 12 11 - 21 10/29/2024 6:24 AM [facility] A/G Ratio 0.7 10/29/2024 6:24 AM [facility] Globulin 4.2 g/dL 10/29/2024 6:24 AM [facility] Osmolality Calc 269.3 mOsm/kg 6:24 AM [facility] eGFR (mL/min/1.73m2) >60 >=60 mL/min/1.7 3m2 10/29/2024 6:24 AM [facility] Comment:ESTIMATED GFR IS NOT ACCURATE CREATININE CLEARANCE IN PREDICTING GLOMERULAR FILTRATION RATE. ESTIMATED GFR IS NOT APPLICABLE FOR DIALYSIS PATIENTS. Blood Venipuncture / Unknown 10/29/2024 5:54 AM EDT 10/29/2024 5:57 AM EDT us Piyush Frey MD LAB BLOOD ORDERABLES Fi nal Result [facility] [address] [phone] * (ABNORMAL) CBC with automated diff (10/28/2024 5:41 AM EDT) Only the most recent of3 resultswithin the time period is included. WBC 8.3 4.0 - 10.5 K/ L 10/28/2024 6:44 AM EDT [facility] RBC 4.04(L) 4.70 - 6.00 M/ L 10/28/2024 6:44 AM EDT [facility] Hemoglobin 12.1(L) 13.2 - 18.0 GM/DL 10/28/2024 6:44 AM EDT [facility] Hematocrit 37.9(L) 42.0 - 52.0 % 10/28/2024 6:44 AM EDT [facility] MCV 94 78 - 100 fL 10/28/2024 6:44 AM EDT [facility] MCH 30.0 27.0 - 31.0 pg 10/28/2024 6:44 AM EDT [facility] MCHC 31.9(L) 32.0 - 36.0 GM/DL 10/28/2024 6:44 AM EDT [facility] RDW 14.6(H) 11.5 - 14.0 % 10/28/2024 6:44 AM EDT [facility] Platelets 161 150 - 400 K/CU MM 10/28/2024 6:44 AM EDT [facility] MPV 12.4(H) 6.0 - 9.5 fL 10/28/2024 6:44 AM EDT [facility] Nucleated Red Blood Cell 0.0 0 - 0.2 % 10/28/2024 6:44 AM T [facility] % Neutros 62 41 - 80 % 10/28/2024 6:44 AM [facility] % Lymphs 25 15 - 48 % 10/28/2024 6:44 AM [facility] % Monos 8 0 - 12 % 10/28/2024 6:44 AM [facility] % Eos 4 0 - 5 % 10/28/2024 6:44 AM T [facility] % Baso 1 0 - 2 % 10/28/2024 6:44 AM [facility] # Neutros 5.12 1.56 - 6.13 K/ L 10/28/2024 6:44 AM [facility] # Lymphs 2.06 K/ L 10/28/2024 6:44 AM [facility] # Monos 0.69 0.24 - 0.86 K/ L 10/28/2024 6:44 AM [facility] # Eos 0.29 0.04 - 0.54 K/ L 10/28/2024 6:44 AM [facility] # Baso 0.06 0.01 - 0.08 K/ L 10/28/2024 6:44 AM [facility] Immature Granulocytes-Re lative 0.40 0.00 - 0.60 % 10/28/2024 6:44 AM [facility] # IG 0.03 0.00 - 0.05 K/uL 10/28/2024 6:44 AM [facility] Blood Venipuncture / Unknown 10/28/2024 5:41 AM EDT 10/28/2024 6:31 AM EDT [facility] - 10/28/2024 6:44 AM EDT [...] Blast? Flag noted Atypical Lymph flag noted Huethierno Granger APRN LAB BLOOD ORDERABLES Final Re sult Performing Organization Address [facility] Code Phone Number [facility] [address] [place] [address], [facility] [phone] * (ABNORMAL) PROBNP (10/27/2024 6:00 AM EDT) ProBNP (pg/mL) 151(H) <125 pg/mL 10/27/2024 6:40 AM EDT [facility] Blood Venipuncture / Unknown 10/27/2024 6:00 AM EDT 10/27/2024 6:06 AM EDT us Michael Corral MD LAB BLOOD ORDERABLES Final Resul t Performing Organization Address [facility] Phone Number [facility] [address] [place] [address], [facility] [phone] * TSH (10/27/2024 6:00 AM EDT) TSH 1.599 0.358 - 3.740 uIU/mL 10/27/2024 6:40 AM EDT [facility] Blood Venipuncture / Unknown 10/27/2024 6:00 AM EDT 10/27/2024 6:06 AM EDT us Michael Corral MD LAB BLOOD ORDERABLES Final Resul t Performing Organization Address [facility] Code Phone Number [facility] [address] [place] [address], [facility] [phone] * (ABNORMAL) Urinalysis, Reflex Microscopic and Culture If Indicated (10/26/2024 2:07 PM EDT) Color, UA Yellow 10/26/2024 2:18 PM EDT [facility] Clarity, UA Clear 10/26/2024 2:18 PM EDT [facility] Specific [place], UA 1.015 1.005 - 1.030 10/26/2024 2:18 PM EDT [facility] pH, UA 6.0 5.0 - 9.0 10/26/2024 2:18 PM EDT [facility] Leukocytes, UA Negative Negative 10/26/2024 2:18 PM EDT [facility] Nitrite, UA Negative Negative 10/26/2024 2:18 PM EDT [facility] Protein, UA Negative Negative 10/26/2024 2:18 PM EDT [facility] Glucose, UA Negative Negative 10/26/2024 2:18 PM EDT [facility] Ketones, UA Negative Negative 10/26/2024 2:18 PM EDT [facility] Bilirubin, UA Negative Negative 10/26/2024 2:18 PM EDT [facility] Blood, UA Trace(A) Negative 10/26/2024 2:18 PM EDT [facility] Urobilinogen, UA 0.2 mg/dL Normal 10/26/2024 2:18 PM EDT [facility] Specimen Source Urine, Clean Catch 10/26/2024 2:18 PM EDT [facility] Urine URINE SPECIMEN COLLECTION, CLEAN CATCH / Unknown 10/26/2024 2:07 PM EDT 10/26/2024 2:10 PM EDT Sydni Blancas PA-C URINE ORDERABLES Final Result [facility] [address] [place] [address] * (ABNORMAL) Triage Drug Screen, Urine (10/26/2024 2:07 PM EDT) Amphetamine Urine Negative Negative 025 2:18 PM EDT [facility] Barbiturate Screen Negative Negative 2024 2:18 PM EDT [facility] Benzodiazepine Screen Positive(A ) Negative 10/26/2024 2:18 PM EDT [facility] Cocaine (Metab.) Screen Negative Negative 10/26/2024 2:18 PM EDT [facility] MDMA Ur Negative Negative 10/26/2024 2:18 PM EDT [facility] Methadone Screen Negative Negative 10/27/19 2:18 PM EDT [facility] Opiate Screen Negative Negative 10/26/2024 2:18 PM EDT [facility] Phencyclidine Screen Negative Negative 09/2024 2:18 PM EDT [facility] Tricyclic Screen Negative Negative 10/27/19 2:18 PM EDT [facility] Tetrahydrocannabinol Negative Negative 09/2024 2:18 PM EDT [facility] Methamphetamine Screen Negative Negative 2:18 PM EDT [facility] Oxycodone Screen Negative Negative 10/27/19 2:18 PM EDT [facility] Urine 10/26/2024 2:07 PM EDT 10/26/2024 2:10 PM EDT Narrative [facility] - 10/26/2024 2:18 PM EDT This urine drug of abuse screen is for medical purposes only. A positive result is a preliminary analytical result which has not been confirmed. Drug Cutoff Limits are: Amp/Methamp: 1000 ng/mL Barbiturates: 200 ng/mL Benzodiazepines: 200 ng/mL Cannabinoids: 50 ng/mL Cocaine Metabolites: 300 ng/mL Fentanyl: 1.0 ng/mL Opiates: 300 ng/mL Sydni Blancas PA-C URINE ORDERABLES Final Result [facility] [address] [phone] * (ABNORMAL) Urinalysis Microscopic Only (10/26/2024 2:07 PM EDT) WBC, UA 0-5 None Seen, 0-5 /HPF 10/26/2024 2:30 PM EDT [facility] RBC, UA 6-10(A) None Seen, Rare /HPF 10/26/2024 2:30 PM EDT [facility] Bacteria, UA Trace(A) None Seen 10/26/2024 2:30 PM EDT [facility] Mucus Trace Trace 10/26/2024 2:30 PM EDT [facility] SQUAMOUS EPITHELIAL Rare None Seen, Rare /HPF 10/26/2024 2:30 PM EDT [facility] Urine URINE SPECIMEN COLLECTION, CLEAN CATCH / Unknown 10/26/2024 2:07 PM EDT 10/26/2024 2:10 PM EDT Sydni Savannahsimin BHAGAT-C URINE ORDERABLES Final Result [facility] [address] [phone] * (ABNORMAL) High Sensitivity Troponin I (10/26/2024 1:59 PM EDT) Pathologist [facility] Troponin I High Sensitivity (pg/mL) <4(L) 4 - 60.3 pg/mL 10/26/2024 2:30 PM EDT [facility] Comment: Troponin Result (pg/mL) *Interpretation 4-60.3 [...] PM EDT 10/26/2024 2:02 PM EDT Sydni BHAGAT-[place] LAB BLOOD ORDERABLES Final Resul t [facility] [address] [place] [address], [facility] [phone] * Lipase (10/26/2024 1:59 PM EDT) Pathologist [facility] Lipase 68 16 - 77 U/L 10/26/2024 2:46 PM EDT [facility] Blood Venipuncture / Unknown 10/26/2024 1:59 PM EDT 10/26/2024 2:02 PM EDT Sydni Blancas OLAYINKA-C LAB BLOOD ORDERABLES Final Resul t Performing Organization Address [facility]/ZIP Code Phone Number [facility] [address] [place] [address], [facility] [phone] * Ethanol (10/26/2024 1:59 PM EDT) Ethanol Lvl <3 <3 mg/dL 10/26/2024 2:45 PM EDT [facility] Blood Venipuncture / Unknown 10/26/2024 1:59 PM EDT 10/26/2024 2:02 PM EDT Narrative [facility] - 10/26/2024 2:45 PM EDT Lower limit of detection is 10.00 mg/dL. 50-100 mg/dL
Impaired Reflexes: 100-300 mg/dL
Depression of PASTE PLANT SUPERVISOR: 300 mg/dL or >
Coma may occur; 400 mg/dL or >
may occur

This test is not intended for legal purposes or use in employment related testing. Sydni Blancas OLAYINKA-C LAB BLOOD ORDERABLES Final Resul t Performing Organization Address [facility]/ZIP Code Phone Number [facility] [address] [place] [address], [facility] [phone] * CT brain without IV contrast (10/26/2024 [...] Antigen Nonreactive Nonreactive 12/09/2023 7:54 PM EDT [facility] Comment: The Combo HIV procedure is [...] BLOOD ORDERABLES Final Result Performing Organization Address City/State/[facility] Co de Phone Number [facility] [address] [phone] * Lipid panel (12/09/2023 6:07 PM EDT) Triglycerides 31 0 - 249 mg/dL 12/09/2023 9:24 PM EDT [facility] Cholesterol 87 0 - 199 mg/dL 12/09/2023 9:24 PM EDT [facility] Comment: 200 to 239 mg/dL = Moderate (borderline) >239 mg/dL = High HDL Cholesterol 56 >=40 mg/dL 9:24 PM EDT [facility] Comment: >=60 mg/dL = Desirable <40 mg/dL = Increased Risk All other components are listed individually or are calculations VLDL Cholesterol 6.2 5 - 40 mg/dL 12/09/2023 9:24 PM EDT [facility] Cholesterol/HDL ratio 1.6 0.0 - 3.2 12/09/2023 9:24 PM EDT [facility] LDl/HDL Ratio 0 0 - 4 12/09/2023 9:24 PM EDT [facility] RISK COMP 2 12/09/2023 9:24 PM EDT [facility] LDL Cholesterol, Calculated 25 0 - 99 mg/dL 12/09/2023 9:24 PM EDT [facility] Blood Venipuncture / Unknown 12/09/2023 6:07 PM EDT 12/09/2023 6:21 PM EDT us Jose Desai MD LAB BLOOD ORDERABLES Final Result [facility] [address] [phone] * (ABNORMAL) Hepatitis panel, acute (12/09/2023 6:06 PM EDT) Hep A IgM Nonreactive Nonreactive, Equivocal 12/09/2023 8:26 PM EDT [facility] Hep B C IgM Nonreactive Nonreactive 12/09/2023 8:26 PM EDT [facility] Hepatitis B surface antigen Nonreactive Nonreactive, Equivocal 12/09/2023 8:26 PM EDT [facility] Hepatitis C Ab Reactive(A) Nonreactive, Equivocal 12/09/2023 8:26 PM EDT [facility] Blood Venipuncture / Unknown 12/09/2023 6:06 PM EDT 12/09/2023 6:21 PM EDT Narrative [facility] - 12/09/2023 8:26 PM EDT Hepatitis [...] Desai MD LAB BLOOD ORDERABLES Final Result [facility] [address] [place] [address], [facility] [phone] from Last 3 Months or Most Recently Relevant to Health Maintenance Insurance MEDICAID OF [place] [facility] MEDIBLUE ACCESS HMO MAP Advance Directives For more information, please contact: [phone] Documents on File Type Date Recorded Patient Medical Imaging Technician Expl anation Advance Directives and Livin g Will 04/18/2022 10:13 AM * Full Code (Latest Code Status on File) Date Activated Date Inactivated Comments 12/09/2023 1:56 PM 12/12/2023 1:00 PM Care Teams Guard Manager Relationship Specialty Start Date End Date Tim Rey MD [address] [place] [address] [place] [address] PCP - General Family Medicine 11/03/24
--- OUTSIDE RECORDS SUMMARY | 2024-12-02 07:58 | XMS_ITS | Encounter Summary ---
Author Organization [facility] In iatives Address [address] [place] [address] Care Team Providers Care Campus Executive Director Name Role Phone Tim Rey MD Primary Care Provider +1- [phone] Reason for Visit * Reason Onset Date Comments Hospital Follow Up 11/03/2024 Encounter Details Date Type Department Care Team (Late st Contact Info) Description 11/03/2024 Telephone [facility] [address] [place] [address] Tim Rey MD [address] [facility] [address] [place] [address] Hospital Follow Up Social History [...] Do you speak a language other than [place] at [facility]? No 10/26/2024 Do you [...] Appointment(s): What was Scheduled: PCP Number Called: [phone] Phone Call Results: Called and straight to voicemail. Unable to leave voicemail because mailbox is full. Email sent: No Email on file Additional information: N/A Caller Name: Jo-Ann documented in this encounter Plan of Treatment Not on file documented as of this encounter Visit Diagnoses Not on filedocumented in this encounter Care Teams Campus Executive Director Relationship Specialty Start Date End Date Tim Rey MD [address] [place] [address] PCP - General Family Medicine 11/03/24 documented as of this encounter
[2024-12-02] MEDS: MVI, ADULT NO.1 WITH VIT K 10 ML, THIAMINE HCL 100 MG, MAGNESIUM SULFATE 2 GM in LACTAT... 125 ML IV (08:14)
[2024-12-02] MEDS: FOLIC ACID 1MG TABLET 1 MG PO (08:42)
[2024-12-02] MEDS: THIAMINE 100MG TABLET 100 MG PO (08:42)
[2024-12-02] MEDS: PHENobarbital SOD 65MG/ML INJ 65 MG IV ×2 (08:45→20:22)
--- NOTE | 2024-12-02 09:49 | EXP.PULM.CON ---
History of Present Illness History of present illness: Mr. Dave is a 49-year-old male history of asthma, PUD, gastritis, history of GI bleeds, tobacco and substance abuse was brought to the ER for an unwitnessed fall. Patient at baseline admits continued smoking. Not been compliant with his inhaler therapy. Admits respiratory symptoms on a daily basis associated with cough and productive phlegm. [facility] Disclaimer: The information contained in this section may have been updated after the patient was seen, as this information can be updated by other users. Medical History (Updated 12/02/24 @ 12:10 by Seb Hadley MD) Asthma Anemia Hiccups Insomnia disorder Vomiting Hypophosphatemia Hypomagnesemia Acute hypokalemia Abdominal pain Epigastric pain Screening for malignant neoplasm of colon Nausea Dyspepsia Abdominal pain Substance use disorder SVT (supraventricular tachycardia) Hypokalemia Alcohol abuse Shortness of breath Hematemesis Sepsis due to pneumonia Abdominal pain, acute Alcohol use disorder Gastrointestinal bleed Duodenal ulcer Necrotizing pneumonia Pneumonia Drug abuse and dependence Back pain Rib pain Shoulder pain Neck pain Acute UTI Back pain Ankle fracture Fracture of distal end of fibula Sinusitis Cellulitis Exposure to COVID-19 virus PTSD (post-traumatic stress disorder) Acute blood loss anemia Peptic ulcer disease with hemorrhage Chronic pain Anxiety Acute bronchitis Elbow pain, left Acute urinary tract infection Leukocytosis Acute appendicitis High risk medication use Tobacco abuse Asthma exacerbation Depression Anxiety Traumatic brain injury Surgical History History of foot surgery H/O lithotripsy History of appendectomy H/O right knee surgery H/O anterior cruciate ligament surgery Previous back surgery Family History Grandmother Cancer Diabetes Stroke Grandfather Cancer Mother Diabetes Hypertension Social History Smoking Status: Current every day smoker tobacco type: cigarettes packs per day: 1 alcohol intake: current alcohol intake frequency: a few times a week counseling provided: provider counseling substance use type: former substance user and prescription drug current occupational status: disabled Travel in the last 8 weeks?: None household members: significant other housing: house current occupational exposures/hazards: No caffeine: No Have you lived/traveled outside [place] in past 30 days?: No Contact w/someone who lives/traveled outside [place] past 30 days?: No Exposure to someone with infectious disease in past 14 days?: No Do you have a fever (greater than 100.4 F or 38 C)?: No Have you tested positive for COVID-19?: No Exposed to someone with COVID-19 in past 14 days?: No Do you have a sore throat?: No Do you have a cough?: No Do you have any weakness?: No Do you have any diarrhea?: No Are you experiencing any unusual bleeding?: No Do you have any muscle aches/pain?: No Do you have any abdominal pain?: No Are you experiencing loss of taste or smell?: No Review of Systems Review of Systems Review of systems (narrative): Limited Constitutional Constitutional: Reports frequent falls Eyes Eyes: Reports dry eyes ENT Ears, Nose, Mouth, and Throat: Reports disequilibrium, Reports dizziness, Denies lip swelling and Denies throat swelling *Cardiovascular Cardiovascular: Reports dyspnea and Reports dyspnea on exertion *Respiratory Respiratory: Denies change in phlegm color, Reports chest congestion, Reports cough, Reports dyspnea, Reports dyspnea on exertion, Denies excessive phlegm production, Denies hemoptysis, Denies pain on inspiration, Denies pain with cough and Reports wheezing *Gastrointestinal Gastrointestinal: Denies abdominal pain, Denies belching and Denies cramping *Musculoskeletal Musculoskeletal: Reports back pain, Reports muscle cramps, Reports muscle weakness and Reports myalgias *Neurologic Neurologic: Reports disequilibrium, Reports dizziness and Reports frequent falls Psychiatric Psychiatric: Denies homicidal ideation and Denies suicidal ideation Endocrine Endocrine: Denies heat intolerance Hematologic/Lymphatic Hematologic/Lymphatic: Denies easy bleeding and Denies lymphadenopathy Allergic/Immunologic Allergic/Immunologic: Denies lip swelling, Denies throat swelling and Reports wheezing Pulmonology Exam Inpatient Vital signs and Labs for Last 24 Hours: Temp Pulse Resp BP Pulse Ox O2 Del Method O2 Flow Rate 97.8 F 59 L 18 122/79 97 Nasal Cannula 2 12/02/24 04:00 12/02/24 08:00 12/02/24 06:59 12/02/24 06:59 12/02/24 08:00 12/02/24 09:00 12/02/24 09:00 Laboratory Results - last 24 hr 12/01/24 18:11: PT 15.3 H, INR 1.41 H, APTT 23.3, D-Dimer 1.62 H, Sodium 142, Potassium 3.6, Chloride 104, Carbon Dioxide 36 H, Anion Gap 5.6, BUN 14, Creatinine 0.60 L, Estimated Creat Clear 151, Estimated GFR 143, Est GFR ( Amer) 173, Glucose 106 H, Lactate 1.0, Calcium 9.0, Magnesium 1.5 L, Total Bilirubin 0.9, GGT 63, AST 41, ALT 8 L, Alkaline Phosphatase 119, Troponin I < 0.01, NT-Pro-B Natriuret Pep 120, Total Protein 7.3, Albumin 4.1, Globulin 3.2, Albumin/Globulin Ratio 1.3, Lipase 87, Plasma/Serum Alcohol < 10 12/01/24 18:50: WBC 7.7, RBC 4.28 L, Hgb 12.6 L, Hct 37.9 L, MCV 88.6, MCH 29.4, MCHC 33.2, RDW 14.0, Plt Count 152, MPV 9.7, Neut % (Auto) 66.0, Lymph % (Auto) 26.5, [place] % (Auto) 6.8, Eos % (Auto) 0.3, Baso % (Auto) 0.3, Neut # (Auto) 5.1, Lymph # (Auto) 2.0, [place] # (Auto) 0.5, Eos # (Auto) 0.0, Baso # (Auto) 0.0 12/01/24 19:23: Troponin I < 0.01 12/01/24 22:28: PT 12.0, INR 1.09, APTT 28.2 12/02/24 00:04: Troponin I < 0.01 12/02/24 05:30: WBC 3.6 L D, RBC 3.75 L, Hgb 11.3 L D, Hct 34.4 L, MCV 91.7, MCH 29.3, MCHC 32.0, RDW 14.3, Plt Count 111 L D, MPV 9.7, Neut % (Auto) 32.0 L, Lymph % (Auto) 53.3 H, [place] % (Auto) 10.3 H, Eos % (Auto) 3.3, Baso % (Auto) 0.8, Neut # (Auto) 1.2 L, Lymph # (Auto) 1.9, [place] # (Auto) 0.4, Eos # (Auto) 0.1, Baso # (Auto) 0.0, Sodium 141, Potassium 3.2 L, Chloride 107, Carbon Dioxide 35 H, Anion Gap 2.2 L, BUN 11, Creatinine 0.60 L, Estimated Creat Clear 133, Estimated GFR 143, Est GFR ( Amer) 173, Glucose 107 H, Calcium 7.9 L, Phosphorus 3.0, Magnesium 2.5 H D, Total Bilirubin 0.6, AST 58 D, ALT 8 L, Alkaline Phosphatase 103, Total Protein 5.3 L D, Albumin 2.9 L D, Globulin 2.4, Albumin/Globulin Ratio 1.2 12/02/24 05:33: POC Glucose 112 H I & O for Labs for Last 24 Hours: Intake & Output 11/29/24 11/30/24 12/01/24 12/02/24 23:59 23:59 23:59 23:59 Intake Total 2099 / 2099 Output Total 300 / 300 Balance 1800 / 1800 Weight 139 lb 12.8 oz 140 lb 6.4 oz Constitutional: Present moderate distress Head: Present normocephalic and atraumatic ENT: Present normal exam, normal oropharynx and mucous membranes moist Neck: Present normal inspection and full ROM Respiratory: Present able to speak in complete sentences; Absent prolonged expiratory phase, respiratory distress, rhonchi, wheezes or crackles Cardiac: Present S1/S2, Tachycardia and radial pulses present GI: Present soft and distention; Absent tenderness or guarding Skin: Present intact; Absent cyanosis or jaundice Neuro: Present alert, awake and oriented x 3 Extremities: Present normal inspection; Absent clubbing or cyanosis Psychiatric: Present unable to assess Meds Home Medications and Allergies Home Medications ?Medication ?Instructions ?Recorded ?Confirmed ?Type multivitamin 1 tab PO DAILY #30 tabs 08/08/24 12/02/24 Rx albuterol sulfate 90 mcg/actuation 2 puff inhalation Q6HP PRN 10/14/24 12/02/24 Rx aerosol inhaler shortness of breath or wheezing #8.5 grams buprenorphine 8 mg-naloxone 2 mg 2 tab sublingual DAILY 14 days #28 10/14/24 12/02/24 Rx sublingual tablet tabs fluticasone fur. 100 mcg-umeclid 1 inh inhalation DAILY 30 days #60 10/14/24 12/02/24 Rx 62.5 mcg-vilant 25 mcg ea inhalat.powder (Trelegy Ellipta) folic acid 1 mg tablet 1 mg PO DAILY 30 days #30 tabs 10/14/24 12/02/24 Rx gabapentin 100 mg capsule 200 mg (2 x 100 mg) PO BID 30 days 10/14/24 12/02/24 Rx #120 caps avxfgb-xkgcbgmc-woowbbg 2 cap PO AC 30 days #180 caps 10/14/24 12/02/24 Rx 36,000-114,000-180,000 unit capsule,delay rel (Creon) misoprostol 200 mcg tablet 200 mcg PO BID 30 days #60 tabs 10/14/24 12/02/24 Rx pantoprazole 40 mg tablet,delayed 40 mg PO BID 30 days #60 tabs 10/14/24 12/02/24 Rx release sucralfate 1 gram tablet 1 g PO ACHS 30 days #120 tabs 10/14/24 12/02/24 Rx thiamine HCl (vitamin B1) 100 mg 100 mg PO DAILY #30 tabs 10/14/24 12/02/24 Rx tablet venlafaxine 37.5 mg tablet 37.5 mg PO BID 30 days #60 tabs 10/14/24 12/02/24 Rx buspirone 10 mg tablet 10 mg PO DAILY 12/02/24 12/02/24 History haloperidol 2 mg tablet 2 mg PO BID 12/02/24 12/02/24 History hydroxyzine HCl 25 mg tablet 25 mg PO TID 12/02/24 12/02/24 History levothyroxine 25 mcg tablet 25 mcg PO DAILYDM 12/02/24 12/02/24 History (Synthroid) olanzapine 5 mg tablet 5 mg PO HS 12/02/24 12/02/24 History prazosin 2 mg capsule 2 mg PO HS 12/02/24 12/02/24 History New Prescriptions to Start Prescriptions: Allergies Allergy/AdvReac Type Severity Reaction Status Date / Time aspirin (ASPIRIN) Allergy Unknown Nose Bleed Verified 10/21/24 13:05 cephalexin (From Keflex) Allergy Gastrointestinal Verified 10/21/24 13:05 Upset piperacillin (From Zosyn) Allergy Hives Verified 10/21/24 13:05 tazobactam (From Zosyn) Allergy Hives Verified 10/21/24 13:05 Results Laboratory Findings 12/02/24 05:30 12/02/24 05:30 PT/INR, D-dimer PT 12.0 seconds (10.1-12.5) 12/01/24 22:28 INR 1.09 (0.9-1.1) 12/01/24 22:28 D-Dimer 1.62 ug/mL (0.0-0.5) H 12/01/24 18:11 Abnormal lab findings: Abnormal Labs 12/01/24 12/01/24 12/02/24 18:11 18:50 05:30 WBC 3.6 L D RBC 4.28 L 3.75 L Hgb 12.6 L 11.3 L D Hct 37.9 L 34.4 L Plt Count 111 L D Neut % (Auto) 32.0 L Lymph % (Auto) 53.3 H [place] % (Auto) 10.3 H Neut # (Auto) 1.2 L PT 15.3 H INR 1.41 H D-Dimer 1.62 H Potassium 3.2 L Carbon Dioxide 36 H 35 H Anion Gap 2.2 L Creatinine 0.60 L 0.60 L Glucose 106 H 107 H POC Glucose Calcium 7.9 L Magnesium 1.5 L 2.5 H D ALT 8 L 8 L Total Protein 5.3 L D Albumin 2.9 L D 12/02/24 05:33 WBC RBC Hgb Hct Plt Count Neut % (Auto) Lymph % (Auto) [place] % (Auto) Neut # (Auto) PT INR D-Dimer Potassium Carbon Dioxide Anion Gap Creatinine Glucose POC Glucose 112 H Calcium Magnesium ALT Total Protein Albumin Assessment and Plan *Assessment and plan (1) Alcohol withdrawal: Status: Acute Qualifiers: Complication of substance-induced condition: with delirium Qualified Code(s): F10.931 - Alcohol use, unspecified with withdrawal delirium Category: Medical Code(s): F10.939 - Alcohol use, unspecified with withdrawal, unspecified (2) Asthma: Status: Acute Category: Medical Code(s): J45.909 - Unspecified asthma, uncomplicated Plan Mr. Dave is a 49-year-old male history of asthma, PUD, gastritis, history of GI bleeds, tobacco and substance abuse was brought to the ER for an unwitnessed fall. Patient at baseline admits continued smoking. Not been compliant with his inhaler therapy. Admits respiratory symptoms on a daily basis associated with cough and productive phlegm. Patient arousable and responding appropriately to verbal commands. He admits continued drinking and also admits heavy drinking and passing out recently. His alcohol level upon admission within normal limits. He was found to be having hallucinations upon admission concern for DTs and was initiated on CIWA protocol. Chest x-ray no acute pulmonary parenchymal infiltrates. Hilar prominence likely pulmonary vasculature. The previously noted pneumonia from his admission appeared completely resolved with minimal residual scarring. CT head no acute changes. No hemorrhage Afebrile. Hemodynamically stable. No evidence of leukocytosis. Hypokalemia. Plan: Admit 250 inhaler along with DuoNebs 4 times daily as needed Incentive spirometry Not concern for seizure activity at this point of time. Will closely monitor his neurological status. Alcohol withdrawal management as per primary team
[2024-12-02 11:05] LABS: POC Glucose,Bedside 89 (70-110)
[2024-12-02] MEDS: LORazepam 1MG TABLET 1 MG PO ×4 (11:43→22:19)
[2024-12-02 11:47] LABS: Microscopic, Urine URINE MICROSCOPIC (MICROSCOPIC)
[2024-12-02 11:53] LABS: Appearance,Urine CLEAR (Clear); Bilirubin,Urine Negative (Negative); Blood, Urine 1+ (Negative); Color,Urine YELLOW (Yellow); Glucose,Urine (UA) Negative (Negative); Ketones,Urine Negative (Negative); Leukocyte Esterase,Urine Negative (Negative); Nitrate,Urine Negative (Negative); PH,Urine 7.5 (5.0-8.5); Protein,Urine Negative (Negative)
[2024-12-02 12:14] LABS: Amphetamine/Metha Screen,Urine Negative ng/ml (<1000)
[2024-12-02 12:15] LABS: Barbiturates Screen,Urine Positive ng/ml (<200); Benzodiazepines Screen,Urine Positive ng/ml (<200)
[2024-12-02 12:16] LABS: Cannabinoid Screen,Urine Negative ng/ml (<50)
[2024-12-02 12:17] LABS: Cocaine Screen,Urine Negative ng/ml (<300)
[2024-12-02 12:18] LABS: Methadone Screen,Urine Negative ng/ml (<300); Opiate Screen,Urine Negative ng/ml (<300)
[2024-12-02 12:19] LABS: Phencyclidine Screen,Urine Negative ng/ml (<25)
[2024-12-02 12:46] LABS: Amorphous Sediment,Urine 3+ /lpf; Bacteria,Urine 3+ /lpf
[2024-12-02] MEDS: BUPRENORPHINE/NALOXONE 8MG/2MG ODT 2 EACH SL (13:18)
[2024-12-02] MEDS: ACETAMINOPHEN 325MG TAB 650 MG PO ×2 (14:38→22:19)
--- NOTE | 2024-12-02 15:14 | PC.NURSE ---
Patient medicated per MAR. Patient resting at this time. Continuation of care plan.
[2024-12-02] MEDS: LIPASE/PROTEASE/AMYLASE 1 EACH CAPSULE.DR 2 EACH PO (16:15)
[2024-12-02] MEDS: MULTIVITAMIN TABLET 1 EACH PO (16:15)
[2024-12-02 16:41] LABS: POC Glucose,Bedside 179 (70-110)
--- NOTE | 2024-12-02 19:23 | P.PN_ITS ---
Subjective *Date: 12/02/24 *Time: 22:56 Interval history: Patient sleeping on exam this morning. Hemodynamically stable. On room air. Afebrile. Medical Exam Vital signs and Labs for Last 24 Hours: Vital Signs Temp Pulse Pulse Resp BP BP Pulse Ox 12/02/24 19:00 52 L 11 L 106/67 L 95 12/02/24 18:30 54 L 11 L 96 12/02/24 18:15 52 L 13 95 12/02/24 18:11 12/02/24 18:01 55 L 14 104/57 L 96 12/02/24 18:00 56 L 16 96 12/02/24 17:45 59 L 10 L 97 12/02/24 17:30 60 13 96 12/02/24 17:15 72 12 93 L 12/02/24 17:00 59 L 12 115/71 96 12/02/24 16:45 65 14 93 L 12/02/24 16:45 12/02/24 16:30 68 12 96 12/02/24 16:25 96 12/02/24 16:15 62 14 97 12/02/24 16:00 65 12/02/24 16:00 68 130/91 H 96 12/02/24 15:59 60 96 12/02/24 15:30 80 21 97 12/02/24 15:15 66 13 93 L 12/02/24 15:00 61 12 130/82 94 L 12/02/24 14:45 62 13 95 12/02/24 14:30 70 15 98 12/02/24 14:22 12/02/24 14:15 74 15 97 12/02/24 14:00 59 L 15 129/89 99 12/02/24 14:00 73 22 129/89 99 12/02/24 13:45 57 L 15 100 12/02/24 13:30 58 L 14 98 12/02/24 13:15 60 17 95 12/02/24 13:00 54 L 17 126/78 100 12/02/24 12:45 51 L 18 100 12/02/24 12:30 58 L 15 100 12/02/24 12:30 12/02/24 12:15 72 98 12/02/24 12:00 55 L 138/82 99 12/02/24 12:00 99 12/02/24 12:00 97.8 F 61 21 138/82 99 12/02/24 12:00 72 12/02/24 11:45 51 L 97 12/02/24 11:30 58 L 15 99 12/02/24 11:15 55 L 14 99 12/02/24 11:01 56 L 15 100 12/02/24 11:01 54 L 14 136/78 99 12/02/24 11:00 58 L 15 136/78 99 12/02/24 10:45 52 L 15 100 12/02/24 10:30 50 L 18 100 12/02/24 10:16 12/02/24 10:15 54 L 15 99 12/02/24 10:00 56 L 15 128/75 99 12/02/24 10:00 60 20 128/75 100 12/02/24 09:45 55 L 15 97 12/02/24 09:30 52 L 14 98 12/02/24 09:15 54 L 14 96 12/02/24 09:00 53 L 14 124/80 97 12/02/24 09:00 12/02/24 08:45 57 L 12 98 12/02/24 08:30 56 L 14 98 12/02/24 08:15 63 16 98 12/02/24 08:01 65 15 137/87 98 12/02/24 08:00 60 15 99 12/02/24 08:00 97 12/02/24 08:00 59 L 12/02/24 07:45 58 L 15 98 12/02/24 07:30 56 L 15 98 12/02/24 07:15 57 L 15 97 12/02/24 07:00 57 L 15 122/79 97 12/02/24 07:00 55 L 14 98 12/02/24 06:59 55 L 18 122/79 98 12/02/24 06:59 12/02/24 06:00 54 L 16 131/78 98 12/02/24 05:00 57 L 18 144/87 H 98 12/02/24 05:00 12/02/24 04:00 60 12/02/24 04:00 97.8 F 57 L 16 140/79 97 12/02/24 04:00 58 L 98 12/02/24 03:00 57 L 15 135/80 95 12/02/24 03:00 12/02/24 02:00 60 15 124/77 94 L 12/02/24 01:00 58 L 16 120/77 97 12/02/24 01:00 12/02/24 00:00 58 L 18 115/73 96 12/02/24 00:00 58 L 95 12/02/24 00:00 60 12/01/24 23:00 63 16 116/66 95 12/01/24 23:00 12/01/24 22:00 60 18 125/70 100 12/01/24 21:05 98.2 F 55 L 14 157/95 H 94 L 12/01/24 21:00 12/01/24 20:43 97.9 F 57 L 11 L 138/83 12/01/24 20:27 94 L 12/01/24 20:00 57 L 11 L 138/83 96 O2 Del Method O2 Flow Rate 12/02/24 19:00 12/02/24 18:30 Room Air 12/02/24 18:15 Room Air 12/02/24 18:11 Room Air 12/02/24 18:01 Room Air 12/02/24 18:00 Room Air 12/02/24 17:45 Room Air 12/02/24 17:30 Room Air 12/02/24 17:15 Room Air 12/02/24 17:00 Room Air 12/02/24 16:45 Room Air 12/02/24 16:45 Room Air 12/02/24 16:30 Room Air 12/02/24 16:25 Room Air 12/02/24 16:15 Room Air 12/02/24 16:00 12/02/24 16:00 Room Air 12/02/24 15:59 Room Air 12/02/24 15:30 Room Air 12/02/24 15:15 Room Air 12/02/24 15:00 Room Air 12/02/24 14:45 Room Air 12/02/24 14:30 Nasal Cannula 2 12/02/24 14:22 Nasal Cannula 2 12/02/24 14:15 Nasal Cannula 2 12/02/24 14:00 Nasal Cannula 2 12/02/24 14:00 Nasal Cannula 2 12/02/24 13:45 Nasal Cannula 2 12/02/24 13:30 Nasal Cannula 2 12/02/24 13:15 Nasal Cannula 2 12/02/24 13:00 Nasal Cannula 2 12/02/24 12:45 Nasal Cannula 2 12/02/24 12:30 Nasal Cannula 2 12/02/24 12:30 Nasal Cannula 2 12/02/24 12:15 Nasal Cannula 2 12/02/24 12:00 Nasal Cannula 2 12/02/24 12:00 Nasal Cannula 2 12/02/24 12:00 Nasal Cannula 2 12/02/24 12:00 12/02/24 11:45 Nasal Cannula 2 12/02/24 11:30 Nasal Cannula 2 12/02/24 11:15 Nasal Cannula 2 12/02/24 11:01 Nasal Cannula 2 12/02/24 11:01 Nasal Cannula 2 12/02/24 11:00 Nasal Cannula 2 12/02/24 10:45 Nasal Cannula 2 12/02/24 10:30 Nasal Cannula 2 12/02/24 10:16 Nasal Cannula 2 12/02/24 10:15 Nasal Cannula 2 12/02/24 10:00 Nasal Cannula 2 12/02/24 10:00 Nasal Cannula 2 12/02/24 09:45 Nasal Cannula 2 12/02/24 09:30 Nasal Cannula 2 12/02/24 09:15 Nasal Cannula 2 12/02/24 09:00 Nasal Cannula 2 12/02/24 09:00 Nasal Cannula 2 12/02/24 08:45 Nasal Cannula 2 12/02/24 08:30 Nasal Cannula 2 12/02/24 08:15 Nasal Cannula 2 12/02/24 08:01 Nasal Cannula 2 12/02/24 08:00 Nasal Cannula 2 12/02/24 08:00 Nasal Cannula 2 12/02/24 08:00 12/02/24 07:45 Nasal Cannula 2 12/02/24 07:30 Nasal Cannula 2 12/02/24 07:15 Nasal Cannula 2 12/02/24 07:00 Nasal Cannula 2 12/02/24 07:00 Nasal Cannula 2 12/02/24 06:59 Nasal Cannula 2 12/02/24 06:59 Nasal Cannula 2 12/02/24 06:00 Nasal Cannula 2 12/02/24 05:00 Nasal Cannula 2 12/02/24 05:00 Nasal Cannula 2 12/02/24 04:00 12/02/24 04:00 Nasal Cannula 2 12/02/24 04:00 Nasal Cannula 2 12/02/24 03:00 Room Air 12/02/24 03:00 Room Air 12/02/24 02:00 Room Air 12/02/24 01:00 Room Air 12/02/24 01:00 Room Air 12/02/24 00:00 Room Air 12/02/24 00:00 Room Air 12/02/24 00:00 12/01/24 23:00 Room Air 12/01/24 23:00 Room Air 12/01/24 22:00 Room Air 12/01/24 21:05 Room Air 12/01/24 21:00 Room Air 12/01/24 20:43 Room Air 12/01/24 20:27 Room Air 12/01/24 20:00 Intake and Output 12/02/24 12/02/24 12/02/24 07:59 15:59 23:59 Intake Total 2100 / 3930 615 / 3930 1215 / 3930 Output Total 300 / 1125 500 / 1125 325 / 1125 Balance 1800 / 2805 115 / 2805 890 / 2805 Intake: Intake, Oral Amount 615 / 855 240 / 855 Intake, Total IV Amount 2100 / 3075 975 / 3075 Lactated Ringers 1000ML 1,000 1000 / 1000 ml @ 999 mls/hr IV .Q1H1M ONE Rx#:[id number] Magnesium Sulfate 2 gm In 0.9 % 100 / 100 Sodium Chloride 100 ml @ 100 mls/hr IV ONCE ONE Rx#:[id number] Mvi, Adult No.1 with Vit K 10 999 / 1975 975 / 1975 ml Thiamine HCl 100 mg Magnesium Sulfate 2 gm In Lactated Ringers 1000ML 1,000 ml @ 125 mls/hr IV DAILY [facility] Rx #:[id number] Output: Output, Urine Amount 300 / 1125 500 / 1125 325 / 1125 Other: Number of Unmeasured Voids 1 Weight 63.684 kg Patient Weight 12/02/24 23:59 Weight 63.684 kg Laboratory Results - last 24 hr 12/01/24 11:40: Urine Color Yellow, Urine Appearance Clear, Urine pH 7.5, Ur Specific [place] 1.020, Urine Protein Negative, Urine Glucose (UA) Negative, Urine Ketones Negative, Urine Blood 1+ A, Urine Nitrate Negative, Urine Bilirubin Negative, Urine Urobilinogen 1.0, Ur Leukocyte Esterase Negative, Urine RBC 3-5, Urine WBC 5-10, Amorphous Sediment 3+, Urine Bacteria 3+, Urine Opiates Screen Negative, Urine Methadone Screen Negative, Ur Barbituates Screen Positive H, Ur Phencyclidine Scrn Negative, Ur Amphetamines Screen Negative, U Benzodiazepines Scrn Positive H, Urine Cocaine Screen Negative, U Marijuana (THC) Screen Negative 12/01/24 18:11: D-Dimer 1.62 H 12/01/24 19:23: Troponin I < 0.01 12/01/24 22:28: PT 12.0, INR 1.09, APTT 28.2 12/02/24 00:04: Troponin I < 0.01 12/02/24 05:30: WBC 3.6 L D, RBC 3.75 L, Hgb 11.3 L D, Hct 34.4 L, MCV 91.7, MCH 29.3, MCHC 32.0, RDW 14.3, Plt Count 111 L D, MPV 9.7, Neut % (Auto) 32.0 L, Lymph % (Auto) 53.3 H, [place] % (Auto) 10.3 H, Eos % (Auto) 3.3, Baso % (Auto) 0.8, Neut # (Auto) 1.2 L, Lymph # (Auto) 1.9, [place] # (Auto) 0.4, Eos # (Auto) 0.1, Baso # (Auto) 0.0, Sodium 141, Potassium 3.2 L, Chloride 107, Carbon Dioxide 35 H, Anion Gap 2.2 L, BUN 11, Creatinine 0.60 L, Estimated Creat Clear 133, Estimated GFR 143, Est GFR ( Amer) 173, Glucose 107 H, Calcium 7.9 L , Phosphorus 3.0, Magnesium 2.5 H D, Total Bilirubin 0.6, AST 58 D, ALT 8 L, Alkaline Phosphatase 103, Total Protein 5.3 L D, Albumin 2.9 L D, Globulin 2.4, Albumin/Globulin Ratio 1.2 12/02/24 05:33: POC Glucose 112 H 12/02/24 10:58: POC Glucose 89 12/02/24 16:34: POC Glucose 179 H I & O for Labs for Last 24 Hours: Intake & Output 11/29/24 11/30/24 12/01/24 12/02/24 23:59 23:59 23:59 23:59 Intake Total 3930 / 3930 Output Total 1125 / 1125 Balance 2805 / 2805 Weight 63.412 kg 63.684 kg Constitutional: Present mild distress, thin, chronically ill appearing, cooperative and agitated Head: Present atraumatic and normocephalic ENT: Present normal exam Comment:: Poor dentition Respiratory: Present prolonged expiratory phase, rhonchi and normal respiratory effort; Absent wheezes or crackles Cardiac: Present Reg Rate and Rhythm GI: Present soft, tenderness (Predominantly in epigastric region) and normal bowel sounds; Absent distention Extremities: Present normal inspection and full ROM; Absent edema Comment:: Thin Skin: Present intact; Absent erythema or rash Neuro: Present Grossly Intact, alert, awake and moves all extremities Comment:: tremor Assessment and Plan *Assessment and plan (1) Alcohol withdrawal: Status: Acute Category: Medical Code(s): F10.939 - Alcohol use, unspecified with withdrawal, unspecified (2) Delirium tremens: Status: Acute Category: Medical Code(s): F10.931 - Alcohol use, unspecified with withdrawal delirium (3) Duodenal ulcer: Status: Chronic Category: Medical Code(s): K26.9 - Duodenal ulcer, unspecified as acute or chronic, without hemorrhage or perforation (4) Hypomagnesemia: Status: Resolved Category: Medical Code(s): E83.42 - Hypomagnesemia (5) Hypokalemia: Status: Resolved Category: Medical Code(s): E87.6 - Hypokalemia (6) Flank pain: Status: Resolved Category: Medical Code(s): R10.9 - Unspecified abdominal pain (7) PTSD (post-traumatic stress disorder): Status: Acute Category: Medical Code(s): F43.10 - Post-traumatic stress disorder, unspecified (8) Generalized anxiety disorder with panic attacks: Status: Acute Category: Medical Code(s): F41.1 - Generalized anxiety disorder; F41.0 - Panic disorder [episodic paroxysmal anxiety] (9) Major depress dis, severe: Status: Acute Category: Medical Code(s): F32.2 - Major depressive disorder, single episode, severe without psychotic features (10) Alcoholic fatty liver: Status: Acute Category: Medical Code(s): K70.0 - Alcoholic fatty liver Plan Mr. Dave is a 49-year-old male with history of alcoholism, COPD, duodenal ulcers, and esophagitis presenting with severe alcohol withdrawal and DTs. Admitted for medical management. Had sensation of bugs crawling on him last night. More somnolent this morning due to treatment for his withdrawal symptoms. Appears comfortable. No nausea or vomiting. Resuming home medications including his home Suboxone. Continues to require patient management. Problems addressed as follows: Acute Alcohol Withdrawal Chronic alcoholism -Continue CIWA protocol. Continue Valium per protocol. CIWA's remain elevated - senior payroll specialist consulted to assist with potential rehab referral and outpatient management once stable to discharge - Initiated on phenobarbital 65 mg twice daily IV. - Continue vitamins per protocol with thiamine, folate, multivitamin daily - Continue rally pack daily. Reevaluate tomorrow pending tolerance of p.o. intake. - Seizure precautions Abdominal pain Alcohol gastritis - GI cocktail after admission. Continue PPI with pantoprazole 40 mg twice daily. Zofran and Phenergan for nausea. - History of gastric ulcer. Monitor for signs of blood loss. Hemoglobin stable 11.3. -Repeat CBC, CMP, magnesium ordered for the morning Kidney function normal this morning with BUN 11, creatinine 0.6. Magnesium normal at 2.5, phosphorus acceptable at 3.0. Potassium 3.2. Replacing per protocol. COPD Tobacco use disorder -DuoNebs scheduled every 6 hours -White count remains low at 3.6 -Stable on room air. Goal sats greater 90% Continue levothyroxine 50 mcg daily Continue Creon with meals Chronic opiate dependence, continue buprenorphine 2 tabs daily Full code Regular diet
[2024-12-02] MEDS: ONDANSETRON 4MG/2ML VIAL 4 MG IV (20:19)
[2024-12-02] MEDS: VENLAFAXINE 37.5MG TABLET 37.5 MG PO (20:22)
[2024-12-02] MEDS: PANTOPRAZOLE 40MG TABLET 40 MG PO (20:22)
[2024-12-02] MEDS: PRAZOSIN 1MG CAP 2 MG PO (20:22)
[2024-12-02] MEDS: NICOTINE 14MG/24HRS PATCH 14 MG TD (21:44)
[2024-12-03] VITALS (27 sets, daily range): BP systolic 97–150; BP diastolic 59–98; PULSE 47–85; RESP 11–18; TEMP 36.4–37; O2SAT 92–96; BMI 23.0
[2024-12-03] MEDS: LORazepam 1MG TABLET 1 MG PO ×9 (00:26→23:21)
[2024-12-03] MEDS: ONDANSETRON 4MG/2ML VIAL 4 MG IV ×2 (05:39→11:31)
[2024-12-03 06:26] LABS: Albumin Level 2.8 g/dl (3.5-5.0); Chloride 106 mmol/L (98-107)
[2024-12-03 06:27] LABS: Potassium 3.5 mmoL/L (3.5-5.1); Sodium 136 mmol/L (136-145)
[2024-12-03 06:29] LABS: Alanine Aminotransferase 5 U/L (12-78); Albumin/Globulin Ratio 1.1 (1.1-1.8); Alkaline Phosphatase 101 U/L (38-126); Anion Gap 1.5 mEq/L (5-15); Aspartate Amino Transferase 43 U/L (17-59); Bilirubin,Total 0.4 mg/dl (0.2-1.3); Blood Urea Nitrogen 10 mg/dl (9-20); Carbon Dioxide 32 mmol/L (22.0-30.0); Creatinine Clearance Estimated 166 mL/min (50-200); Estimated Glomerular Filt Rate 176 ml/min (>60); GFR (African American) 213 ML/MIN (>60); Globulin 2.5 g/dL (1.3-3.2); Phosphorous 3.5 mg/dl (2.5-4.5); Total Protein,Serum 5.3 g/dl (6.3-8.2)
[2024-12-03 06:30] LABS: Calcium 7.9 mg/dl (8.4-10.2); Glucose 94 mg/dl (74-100); Magnesium 1.8 mg/dl (1.6-2.3)
[2024-12-03] MEDS: LIPASE/PROTEASE/AMYLASE 1 EACH CAPSULE.DR 2 EACH PO ×3 (06:34→15:53)
[2024-12-03] MEDS: FLUTICASONE/SALMETEROL 250/50MCG DISKUS 1 PUFF IH ×2 (06:35→18:30)
[2024-12-03] MEDS: LEVOTHYROXINE 25MCG (0.025MG) TAB 25 MCG PO (06:42)
[2024-12-03 08:37] LABS: Basophils % 0.5 % (0.1-2.0); Eosinophils # 0.2 Kmm3 (0.0-0.4); Eosinophils % 4.9 % (0.1-12.0); Hematocrit 34.7 % (42.0-52.0); Hemoglobin 11.4 g/dL (14.1-18.0); Immature Granulocytes # 0.01 10^3uL; Immature Granulocytes % 0.2 %; Lymphocytes # 1.9 K/mm3 (0.7-4.5); Lymphocytes % 43.1 % (10-50); Mean Corpuscular HGB Conc 32.9 g/dL (31.8-35.4); Mean Corpuscular Hemoglobin 29.9 pg (27.0-31.2); Mean Corpuscular Volume 91.1 fl (80-94); Mean Platelet Volume 9.6 fl (7.4-10.4); Monocytes # 0.3 K/mm3 (0.1-1.0); Monocytes % 7.9 % (1.7-9.3); Neutrophils # 1.9 K/mm3 (1.8-7.8); Neutrophils % 43.4 % (37.0-80.0); Nucleated Red Blood Cells # 0 10^3/uL; Nucleated Red Blood Cells % 0 %; Platelet Count 110 K/mm3 (142-424); Red Blood Count 3.81 M/mm3 (4.60-6.20); Red Cell Distribution Width 13.7 % (11.5-17.5); White Blood Count 4.3 K/mm3 (4.8-10.8)
[2024-12-03] MEDS: BUPRENORPHINE/NALOXONE 8MG/2MG ODT 2 EACH SL (08:39)
[2024-12-03] MEDS: BUSPIRONE HCL 10 MG TABLET PO (08:39)
[2024-12-03] MEDS: VENLAFAXINE 37.5MG TABLET 37.5 MG PO ×2 (08:39→20:25)
[2024-12-03] MEDS: FOLIC ACID 1MG TABLET 1 MG PO (08:39)
[2024-12-03] MEDS: THIAMINE 100MG TABLET 100 MG PO (08:40)
[2024-12-03] MEDS: NICOTINE 14MG/24HRS PATCH 14 MG TD (08:40)
[2024-12-03] MEDS: MVI, ADULT NO.1 WITH VIT K 10 ML, THIAMINE HCL 100 MG, MAGNESIUM SULFATE 2 GM in LACTAT... 125 ML IV (08:41)
[2024-12-03] MEDS: PHENobarbital SOD 130MG/ML INJ 130 MG IV ×2 (08:49→20:25)
--- NOTE | 2024-12-03 09:16 | P.PN_ITS ---
Subjective *Date: 12/03/24 *Time: 12:21 Interval history: No acute respiratory vents overnight. Patient today concern for his inability to take medications when he gets discharged. Pulmonology Exam Inpatient Vital signs and Labs for Last 24 Hours: Temp Pulse Resp BP Pulse Ox O2 Del Method O2 Flow Rate 97.5 F L 59 L 14 150/79 H 92 L Room Air 2 12/03/24 04:00 12/03/24 08:01 12/03/24 08:01 12/03/24 08:01 12/03/24 08:01 12/03/24 08:01 12/02/24 14:30 Laboratory Results - last 24 hr 12/01/24 11:40: Urine Color Yellow, Urine Appearance Clear, Urine pH 7.5, Ur Specific Burkett 1.020, Urine Protein Negative, Urine Glucose (UA) Negative, Urine Ketones Negative, Urine Blood 1+ A, Urine Nitrate Negative, Urine Bili nolan Negative, Urine Urobilinogen 1.0, Ur Leukocyte Esterase Negative, Urine RBC 3-5, Urine WBC 5-10, Amorphous Sediment 3+, Urine Bacteria 3+, Urine Opiates Screen Negative, Urine Methadone Screen Negative, Ur Barbituates Screen Positive H, Ur Phencyclidine Scrn Negative, Ur Amphetamines Screen Negative, U Benzodiazepines Scrn Positive H, Urine Cocaine Screen Negative, U Marijuana (THC) Screen Negative 12/02/24 10:58: POC Glucose 89 12/02/24 16:34: POC Glucose 179 H 12/03/24 05:20: WBC 4.3 L, RBC 3.81 L, Hgb 11.4 L, Hct 34.7 L, MCV 91.1, MCH 29.9, MCHC 32.9, RDW 13.7, Plt Count 110 L, MPV 9.6, Neut % (Auto) 43.4, Lymph % (Auto) 43.1, [place] % (Auto) 7.9, Eos % (Auto) 4.9, Baso % (Auto) 0.5, Neut # (Auto) 1.9, Lymph # (Auto) 1.9, [place] # (Auto) 0.3, Eos # (Auto) 0.2, Baso # (Auto) 0.0, Sodium 136, Potassium 3.5, Chloride 106, Carbon Dioxide 32 H, Anion Gap 1.5 L, BUN 10, Creatinine 0.50 L, Estimated Creat Clear 166, Estimated GFR 176, Est GFR ( Amer) 213 D, Glucose 94, Calcium 7.9 L, Phosphorus 3.5, Magnesium 1.8 D, Total Bilirubin 0.4, AST 43 D, ALT 5 L D, Alkaline Phosphatase 101, Total Protein 5.3 L, Albumin 2.8 L, Globulin 2.5, Albumin/Globulin Ratio 1.1 Temp Pulse Resp BP Pulse Ox O2 Del Method O2 Flow Rate 97.8 F 59 L 18 122/79 97 Nasal Cannula 2 12/02/24 04:00 12/02/24 08:00 12/02/24 06:59 12/02/24 06:59 12/02/24 08:00 12/02/24 09:00 12/02/24 09:00 Laboratory Results - last 24 hr 12/01/24 18:11: PT 15.3 H, INR 1.41 H, APTT 23.3, D-Dimer 1.62 H, Sodium 142, Potassium 3.6, Chloride 104, Carbon Dioxide 36 H, Anion Gap 5.6, BUN 14, Creatinine 0.60 L, Estimated Creat Clear 151, Estimated GFR 143, Est GFR ( Amer) 173, Glucose 106 H, Lactate 1.0, Calcium 9.0, Magnesium 1.5 L, Total Bilirubin 0.9, GGT 63, AST 41, ALT 8 L, Alkaline Phosphatase 119, Troponin I < 0.01, NT-Pro-B Natriuret Pep 120, Total Protein 7.3, Albumin 4.1, Globulin 3.2, Albumin/Globulin Ratio 1.3, Lipase 87, Plasma/Serum Alcohol < 10 12/01/24 18:50: WBC 7.7, RBC 4.28 L, Hgb 12.6 L, Hct 37.9 L, MCV 88.6, MCH 29.4, MCHC 33.2, RDW 14.0, Plt Count 152, MPV 9.7, Neut % (Auto) 66.0, Lymph % (Auto) 26.5, [place] % (Auto) 6.8, Eos % (Auto) 0.3, Baso % (Auto) 0.3, Neut # (Auto) 5.1, Lymph # (Auto) 2.0, [place] # (Auto) 0.5, Eos # (Auto) 0.0, Baso # (Auto) 0.0 12/01/24 19:23: Troponin I < 0.01 12/01/24 22:28: PT 12.0, INR 1.09, APTT 28.2 12/02/24 00:04: Troponin I < 0.01 12/02/24 05:30: WBC 3.6 L D, RBC 3.75 L, Hgb 11.3 L D, Hct 34.4 L, MCV 91.7, MCH 29.3, MCHC 32.0, RDW 14.3, Plt Count 111 L D, MPV 9.7, Neut % (Auto) 32.0 L, Lymph % (Auto) 53.3 H, [place] % (Auto) 10.3 H, Eos % (Auto) 3.3, Baso % (Auto) 0.8, Neut # (Auto) 1.2 L, Lymph # (Auto) 1.9, Pleas[place] # (Auto) 0.4, Eos # (Auto) 0.1, Baso # (Auto) 0.0, Sodium 141, Potassium 3.2 L, Chloride 107, Carbon Dioxide 35 H, Anion Gap 2.2 L, BUN 11, Creatinine 0.60 L, Estimated Creat Clear 133, Estimated GFR 143, Est GFR ( Amer) 173, Glucose 107 H, Calcium 7.9 L , Phosphorus 3.0, Magnesium 2.5 H D, Total Bilirubin 0.6, AST 58 D, ALT 8 L, Alkaline Phosphatase 103, Total Protein 5.3 L D, Albumin 2.9 L D, Globulin 2.4, Albumin/Globulin Ratio 1.2 12/02/24 05:33: POC Glucose 112 H I & O for Labs for Last 24 Hours: Intake & Output 11/30/24 12/01/24 12/02/24 12/03/24 23:59 23:59 23:59 23:59 Intake Total 3930 / 3930 400 / 400 Output Total 1375 / 1375 100 / 100 Balance 2555 / 2555 300 / 300 Weight 139 lb 12.8 oz 140 lb 6.4 oz 146 lb 8 oz Intake & Output 11/29/24 11/30/24 12/01/24 12/02/24 23:59 23:59 23:59 23:59 Intake Total 2099 / 2100 Output Total 300 / 300 Balance 1800 / 1800 Weight 139 lb 12.8 oz 140 lb 6.4 oz Constitutional: Present moderate distress Head: Present normocephalic and atraumatic ENT: Present normal exam, normal oropharynx and mucous membranes moist Neck: Present normal inspection and full ROM Respiratory: Present able to speak in complete sentences; Absent prolonged expiratory phase, respiratory distress, rhonchi, wheezes or crackles Cardiac: Present S1/S2, Tachycardia and radial pulses present GI: Present soft and distention; Absent tenderness or guarding Skin: Present intact; Absent cyanosis or jaundice Neuro: Present alert, awake and oriented x 3 Extremities: Present normal inspection; Absent clubbing or cyanosis Psychiatric: Present unable to assess Assessment and Plan *Assessment and plan (1) Alcohol withdrawal: Status: Acute Qualifiers: Complication of substance-induced condition: with delirium Qualified Code(s): F10.931 - Alcohol use, unspecified with withdrawal delirium Category: Medical Code(s): F10.939 - Alcohol use, unspecified with withdrawal, unspecified (2) Asthma: Status: Acute Category: Medical Code(s): J45.909 - Unspecified asthma, uncomplicated Plan Mr. Dave is a 49-year-old male history of asthma, PUD, gastritis, history of GI bleeds, tobacco and substance abuse was brought to the ER for an unwitnessed fall. Patient at baseline admits continued smoking. Not been compliant with his inhaler therapy. Admits respiratory symptoms on a daily basis associated with cough and productive phlegm. Patient arousable and responding appropriately to verbal commands. He admits continued drinking and also admits heavy drinking and passing out recently. His alcohol level upon admission within normal limits. He was found to be having hallucinations upon admission concern for DTs and was initiated on CIWA protocol. Chest x-ray no acute pulmonary parenchymal infiltrates. Hilar prominence likely pulmonary vasculature. The previously noted pneumonia from his admission appeared completely resolved with minimal residual scarring. CT head no acute changes. No hemorrhage Afebrile. Hemodynamically stable. No evidence of leukocytosis. Hypokalemia. Interval update: No acute respiratory events overnight. Continued to remain on room air. Mentation relatively stable. No concerning seizure activity. Plan: Advair 250 inhaler along with DuoNebs 4 times daily as needed Incentive spirometry Not concern for seizure activity at this point of time. Will closely monitor his neurological status. Alcohol withdrawal management as per primary team. # Thank you for involving pulmonary in this patient care.
[2024-12-03] MEDS: ACETAMINOPHEN 325MG TAB 650 MG PO (10:20)
--- NOTE | 2024-12-03 11:03 | HMH.PTEV ---
Physical Therapy Evaluation Rehab PT IP Evaluation Start: 12/03/24 08:22 Freq: ONCE Status: Active Protocol: Document 12/03/24 11:01 LUZMARIA (Rec: 12/03/24 11:03 LUZMARIA [id number]) Subjective/History History History Per H&P: 49-year-old male presents to the emergency department via EMS for an unwitnessed fall/syncopal episode that occurred several hours ago, unknown time down, patient is not on any anticoagulation therapy, patient is unsure if he struck the head, patient endorsed feeling sick , this morning with nausea and vomiting. History is limited due to delirium tremens. Currently endorsing severe abdominal pain. He states that he has been drinking approximately 2 sleeves of fireball daily. However he started having severe abdominal pain yesterday and as a result has been unable to drink any more. He has not had alcohol in about 24 hours. Currently he is hallucinating and seeing bugs all over the place. He is also having severe tremors. Subjective Subjective Pt lethargic but agreeable to participate in PT evaluation. Pt lives home alone and is usually IND with mobility using a RW. Pt still driving. New diagnosis of No cancer in past 12 months? [facility] How much help from another person do you currently need... Turning from your A little back to your side while in a flat bed without using bedrails? Moving from lying on A little back to sitting on the side of a flat bed without using bedrails? Moving to and from a A little bed to a chair ( including a wheelchair)? Standing up from a A little chair using your arms? (e.g., wheelchair, bedside chair) Walking in hospital A little room? Climbing 3-5 steps A little with a railing? Mobility Score 18 Mobility Level [facility] Mobility 6 Walk 10 steps or more Mobility Calculator Rehab PT IP Eval Objective Appearance Patient Behavior Appropriate,Cooperative Patient Orientation Person Difficulty following none instructions Speech Pattern Mumbled Ambulation Patient Able to Yes Ambulate Ambulation Observation IP General Gait Antalgic Gait Pattern Observation Ambulation Distance 5 (feet) Ambulation Ability Minimal x 1 (25% assist) Balance Ability to Arise Able, uses arms to help Sitting Balance Steady, safe Standing Balance Unsteady Transfers Bed Transfer Ability Minimal x 1 (25% assist) Sit to Stand Bed Minimal x 1 (25% assist) Transfer Ability Rehab PT IP prob,goals,plan Problems Date of Evaluation: 12/03/24 PT IP Problems Bed Mobility,Transfers,Gait,Balance,Self care,Safety Rehab Potential Rehab Potential Good Plan PT Intervention Plan Bed Mobility,Transfers,Gait,Balance,Self care,Safety, Therapeutic Exercise Other Intervention 1-2 times Plan PT Plan Frequency Daily Duration LOS Discharge Goals Bed Transfer Ability Supervision/Stand by Sit to Stand Chair Supervision/Stand by Transfer Ability Ambulation Assistive Rolling Walker Device Ambulation Distance 10 (feet) Discharge Plan PT Discharge Plan Initial physical therapy evaluation performed. Patient presents below baseline at this time in functional mobility, transfers, and strength. Pt not safe to return home at this time d/t current level of functional mobility. PT recommending short-term rehabilitation stay upon d/c from [facility]. Pt would benefit from skilled PT while at [facility] to prevent further functional decline and maximize safety with mobility. Eval Complexity Eval Charge Codes 23488 - Moderate Complexity PHYSICIAN CERTIFICATION: I certify the specified therapy services for Brandon Dave are required, authorized, and reviewed every 30 days.
--- NOTE | 2024-12-03 11:12 | HMH.OTEV ---
OT Inpatient Evaluation Rehab OT IP Evaluation Start: 12/03/24 08:22 Freq: ONCE Status: Active Protocol: Document 12/03/24 11:07 TAVO (Rec: 12/03/24 11:12 [id number] Rehab OT IP Assessment Subjective History Per H&P: 49-year-old male presents to the emergency department via EMS for an unwitnessed fall/syncopal episode that occurred several hours ago, unknown time down, patient is not on any anticoagulation therapy, patient is unsure if he struck the head, patient endorsed feeling sick , this morning with nausea and vomiting. History is limited due to delirium tremens. Currently endorsing severe abdominal pain. He states that he has been drinking approximately 2 sleeves of fireball daily. However he started having severe abdominal pain yesterday and as a result has been unable to drink any more. He has not had alcohol in about 24 hours. Currently he is hallucinating and seeing bugs all over the place. He is also having severe tremors. Subjective Pt lethargic but agreeable to participate in OT evaluation. Pt lives home alone and is usually IND with functional mobility/transfers using a RW. Pt still driving. Pt claims he is normally independent with all ADLs and IADLs. Objective Patient Orientation Person,Place,Birthday Right Upper Min Limitation <25% Extremity Gross ROM Left Upper Extremity Min Limitation <25% Gross ROM Shoulder ROM Muscle Weakness Limitations Elbow ROM Muscle Weakness Limitations Wrist Limitations of Muscle Weakness Range of Motion Bed Mobility bed mobility-scooting,bed mobility - supine/sit Assist Level Minimal x 1 (25% assist) Transfer Training Sit/Stand Transfer Assist Level Minimal x 2 (25% assist) Rehab OT IP prob,goals,plan Problems Date of Evaluation: 12/03/24 OT IP Problems Bed Mobility,Transfers,Balance,Self care,Safety Rehab Potential Rehab Potential Good Plan OT intervention Plan Bed Mobility,Transfers,Balance,Self care,Safety, Therapeutic Exercise OT Plan Frequency Daily Duration LOS Discharge Goals Bed Mobility Ability Standby Assistance Sit to Stand Chair Contact Guard/Hand Hold Transfer Ability Chair Transfer Contact Guard/Hand Hold Ability Chair Transfer Sit to/from Ambulatory Technique Chair Transfer Rolling Walker Assistive Devices Lower Body Dressing Standby Assistance Ability Upper Body Dressing Standby Assistance Ability Performing Toilet Standby Assistance Hygiene Ability Overall Commode/ Standby Assistance Toilet Transfer Ability Commode/Toilet Sit to/from Ambulatory Transfer Technique Discharge Plan OT Discharge Plan Pt will continue to be seen for OT services while at [facility]. At this time, pt presents below baseline with functional transfers and ADL independence. Pt would benefit most from short term rehab at SNF following hospital stay. If pt demonstrates significant improvement while in hospital, pt could possibly return home with OT evaluation. Continued skilled therapy session is important in order for patient to improve strength safety, and endurance to reach PLOF. Eval Complexity Eval Charge Codes 32816 - Moderate Complexity PHYSICIAN CERTIFICATION: I certify the specified therapy services for Brandon Dave are required, authorized, and reviewed every 30 days.
[2024-12-03] MEDS: LORazepam 2MG/ML VIAL 2 MG IV (12:34)
[2024-12-03] MEDS: SODIUM CHLORIDE 0.9% 10ML FLUSH SYRINGE 10 ML IV (12:34)
--- NOTE | 2024-12-03 12:37 | CT_ITS ---
FINAL REPORT TECHNIQUE: Axial images through the abdomen and pelvis were performed without contrast. This study was performed with techniques to keep radiation doses as low as reasonably achievable, (ALARA). Individualized dose reduction techniques using automated exposure control or adjustment of mA and/or kV according to the patient's size were employed. CLINICAL HISTORY: kidney stones? COMPARISON: 12/01/2024 FINDINGS: Abdomen: Scarring is noted in the lung bases. The liver parenchyma is homogeneous. The gallbladder is contracted. Calcified granulomas are noted in the spleen. The pancreas and adrenal glands are unremarkable. There is a linear metallic density in the 2nd portion of the duodenum which was not seen on the previous exam measuring 1.8 cm in greatest dimension. This is well seen on image 34 of series 601. There is a multitude of bilateral nonobstructing kidney stones. The largest, present in the superior pole of the right renal collecting system, measures 9 mm and is stable. There is no hydronephrosis. Pelvis: There are postoperative changes at the base of the cecum. The appendix is not identified. The urinary bladder is incompletely decompressed. IMPRESSION: Stable kidney stones. Linear metallic density 2nd portion of the duodenum of uncertain significance. Reviewed, Interpreted and Dictated by Rangel Soto MD Transcribed by Sydni Hdez Authenticated and [facility]
--- NOTE | 2024-12-03 12:47 | PC.NURSE ---
Pt down for CT @ [id number]
--- NOTE | 2024-12-03 12:53 | PC.NURSE ---
pt back from CT with RAD via wheelchair to room 264 @[id number]
--- NOTE | 2024-12-03 18:06 | PEERSUPPORT ---
Peer Support Note Patient Information Patient Information: DOS: 12/03/2024 ? Pt shared he is having pain with his back and head. He is able to identify he is hallucinating from the alcohol withdrawal detox. Sensitivity to light with headache and feeling anxious. ? Ps provides ice pack for neck educating on positive effects of cold temperatures to forehead and neck to help with pain and withdrawal symptoms. ? Pt is concerned of results to kidney test, he feels as if he is passing kidney stones saying he has felt this pain before. ? Ps confirmed with nurse results of test results, no findings, no obstruction. ? Nurse to report to patient. ? Ps is receptive and feels able to rest. ? ? Ps f/u 4:30 pm ? Pt reported feeling anxious/pain in back. Ps supports in comforting and positive encouragement. ? Jhon JERNIGAN to assess for withdrawal management medication. ? Plan of action: Ps to follow up on 12/04/2024
--- NOTE | 2024-12-03 18:17 | PC.NURSE ---
Remains on room air. A/Ox4. CIWA per protocol, medications admin per MAR for appropriate CIWA scoring. Pt admits to auditory/visual hallucinations, headache majority of shift, intermittent nausea w/o vomiting. Pt did c/o abdominal pain that radiated to his back, rating 10/10 that was reported to provider. CT abdomen ordered by provider. No further complaints voiced by pt after this episode. Peer support has been in to visit w/ pt, pt has been receptive and willing to speak w/ them during these visits. Pt was up to chair a few hours this shift, tolerated well. Pt currently resting in bed, bed alarm in place for safety. Call bustos w/in reach. POC ongoing. No needs voiced @ this time.
--- NOTE | 2024-12-03 18:41 | EXP.ACUTE.PN ---
Subjective *Date: 12/03/24 *Time: 18:41 Interval history: Continues to feel nausea's. Having some increased withdrawal symptoms. CIWA's ranging from 5-12. Will increase phenobarbital to 130 mg twice daily. Working with career resource specialist. Stable on room air Medical Exam Vital signs and Labs for Last 24 Hours: Vital Signs Temp Pulse Pulse Resp BP Pulse Ox O2 Del Method 12/03/24 18:00 72 16 122/68 96 Room Air 12/03/24 17:00 69 14 125/72 95 Room Air 12/03/24 17:00 Room Air 12/03/24 16:00 95 Room Air 12/03/24 16:00 79 12/03/24 16:00 97.6 F 65 18 142/83 H 95 Room Air 12/03/24 15:00 83 13 145/89 H 95 Room Air 12/03/24 15:00 Room Air 12/03/24 13:30 61 13 95 Room Air 12/03/24 13:00 Room Air 12/03/24 12:41 96 Room Air 12/03/24 12:01 97.6 F 61 17 125/98 H 95 Room Air 12/03/24 12:00 65 12/03/24 11:00 67 14 130/76 94 L Room Air 12/03/24 11:00 Room Air 12/03/24 10:00 57 L 13 111/71 92 L Room Air 12/03/24 09:00 62 14 112/72 96 Room Air 12/03/24 09:00 Room Air 12/03/24 08:01 59 L 14 150/79 H 92 L Room Air 12/03/24 08:00 60 12/03/24 08:00 53 L 93 L Room Air 12/03/24 07:00 52 L 11 L 124/79 94 L Room Air 12/03/24 06:43 Room Air 12/03/24 06:00 55 L 15 120/72 94 L 12/03/24 05:00 68 14 132/67 95 12/03/24 05:00 Room Air 12/03/24 04:00 54 L 12/03/24 04:00 97.5 F L 52 L 12 97/59 L 92 L Room Air 12/03/24 04:00 95 Room Air 12/03/24 03:00 47 L 11 L 112/67 95 Room Air 12/03/24 03:00 Room Air 12/03/24 02:00 51 L 11 L 121/74 95 CPAP 12/03/24 01:00 132/80 12/03/24 01:00 53 L 13 132/80 94 L Room Air 12/03/24 01:00 Room Air 12/03/24 00:00 98.6 F 53 L 13 130/80 95 Room Air 12/03/24 00:00 60 12/03/24 00:00 96 Room Air 12/02/24 23:00 Room Air 12/02/24 23:00 51 L 13 143/86 H 96 Room Air 12/02/24 23:00 Room Air 12/02/24 22:00 60 17 119/77 96 Room Air 12/02/24 21:00 Room Air 12/02/24 21:00 71 16 117/79 96 Room Air 12/02/24 20:00 60 12/02/24 20:00 98.9 F 65 12 160/55 H 98 Room Air 12/02/24 20:00 96 Room Air 12/02/24 19:00 52 L 11 L 106/67 L 95 Intake and Output 12/03/24 12/03/24 12/03/24 07:59 15:59 23:59 Intake Total 920 / 2145 1225 / 2145 Output Total 450 / 550 100 / 550 Balance 470 / 1595 1125 / 1595 Intake: Intake, Oral Amount 900 / 1110 210 / 1110 Intake, Other Amount 20 / 35 15 / 35 Intake, Total IV Amount 1000 / 1000 Mvi, Adult No.1 with Vit K 10 1000 / 1000 ml Thiamine HCl 100 mg Magnesium Sulfate 2 gm In Lactated Ringers 1000ML 1,000 ml @ 125 mls/hr IV DAILY [facility] Rx #:[id number] Output: Output, Urine Amount 450 / 550 100 / 550 Other: Intake, Other Source Saline Solution Saline Solution Weight 66.451 kg Patient Weight 12/03/24 23:59 Weight 66.451 kg Laboratory Results - last 24 hr 12/03/24 05:20: WBC 4.3 L, RBC 3.81 L, Hgb 11.4 L, Hct 34.7 L, MCV 91.1, MCH 29.9, MCHC 32.9, RDW 13.7, Plt Count 110 L, MPV 9.6, Neut % (Auto) 43.4, Lymph % (Auto) 43.1, [place] % (Auto) 7.9, Eos % (Auto) 4.9, Baso % (Auto) 0.5, Neut # (Auto) 1.9, Lymph # (Auto) 1.9, [place] # (Auto) 0.3, Eos # (Auto) 0.2, Baso # (Auto) 0.0, Sodium 136, Potassium 3.5, Chloride 106, Carbon Dioxide 32 H, Anion Gap 1.5 L, BUN 10, Creatinine 0.50 L, Estimated Creat Clear 166, Estimated GFR 176, Est GFR ( Amer) 213 D, Glucose 94, Calcium 7.9 L, Phosphorus 3.5, Magnesium 1.8 D, Total Bilirubin 0.4, AST 43 D, ALT 5 L D, Alkaline Phosphatase 101, Total Protein 5.3 L, Albumin 2.8 L, Globulin 2.5, Albumin/Globulin Ratio 1.1 I & O for Labs for Last 24 Hours: Intake & Output 11/30/24 12/01/24 12/02/24 12/03/24 23:59 23:59 23:59 23:59 Intake Total 3930 / 3930 2145 / 2145 Output Total 1375 / 1375 550 / 550 Balance 2555 / 2555 1595 / 1595 Weight 63.412 kg 63.684 kg 66.451 kg Constitutional: Present mild distress, thin, chronically ill appearing, cooperative and agitated Head: Present atraumatic and normocephalic ENT: Present normal exam Comment:: Poor dentition Respiratory: Present prolonged expiratory phase, rhonchi and normal respiratory effort; Absent wheezes or crackles Cardiac: Present Reg Rate and Rhythm GI: Present soft, tenderness (Predominantly in epigastric region) and normal bowel sounds; Absent distention Extremities: Present normal inspection and full ROM; Absent edema Comment:: Thin Skin: Present intact; Absent erythema or rash Neuro: Present Grossly Intact, alert, awake and moves all extremities Comment:: tremor Assessment and Plan *Assessment and plan (1) Alcohol withdrawal: Status: Acute Category: Medical Code(s): F10.939 - Alcohol use, unspecified with withdrawal, unspecified (2) Delirium tremens: Status: Acute Category: Medical Code(s): F10.931 - Alcohol use, unspecified with withdrawal delirium (3) Duodenal ulcer: Status: Chronic Category: Medical Code(s): K26.9 - Duodenal ulcer, unspecified as acute or chronic, without hemorrhage or perforation (4) Hypomagnesemia: Status: Resolved Category: Medical Code(s): E83.42 - Hypomagnesemia (5) Hypokalemia: Status: Resolved Category: Medical Code(s): E87.6 - Hypokalemia (6) Flank pain: Status: Resolved Category: Medical Code(s): R10.9 - Unspecified abdominal pain (7) PTSD (post-traumatic stress disorder): Status: Acute Category: Medical Code(s): F43.10 - Post-traumatic stress disorder, unspecified (8) Generalized anxiety disorder with panic attacks: Status: Acute Category: Medical Code(s): F41.1 - Generalized anxiety disorder; F41.0 - Panic disorder [episodic paroxysmal anxiety] (9) Major depress dis, severe: Status: Acute Category: Medical Code(s): F32.2 - Major depressive disorder, single episode, severe without psychotic features (10) Alcoholic fatty liver: Status: Acute Category: Medical Code(s): K70.0 - Alcoholic fatty liver Plan Mr. Dave is a 49-year-old male with history of alcoholism, COPD, duodenal ulcers, and esophagitis presenting with severe alcohol withdrawal and DTs. Admitted for medical management. Improve mentation today. Still feeling poorly per his report. Still ill-appearing. Continues to require inpatient management. Dissipate discharge in the next day or 2. Problems addressed as follows: Acute Alcohol Withdrawal Chronic alcoholism -Continue CIWA protocol. Continue Valium per protocol. CIWA's remain elevated - chargeback specialist consulted to assist with potential rehab referral and outpatient management once stable to discharge -In creased phenobarbital 230 mg IV twice daily. - Continue vitamins per protocol with thiamine, folate, multivitamin daily - Continue rally pack daily. Reevaluate tomorrow pending tolerance of p.o. intake. - Seizure precautions - White count 4.3, hemoglobin 11.4. Kidney function normal with creatinine 0.5. Magnesium 1.8 with phosphorus 3.5. Repeat CBC, CMP, magnesium and phosphorus ordered for the Abdominal pain Alcohol gastritis - GI cocktail after admission. Continue PPI with pantoprazole 40 mg twice daily. Zofran and Phenergan for nausea. - History of gastric ulcer. Monitor for signs of blood loss. Hemoglobin stable 11.4 -Repeat CT obtained of the abdomen today. Per my review has metal foreign body in second part of duodenum. Unclear the etiology. After reviewing images, it appears to have been present for a few months. Will consider consulting GI to evaluate with possible scope. COPD Tobacco use disorder -Pulmonology evaluated today, discussed case. Recommend continuing Advair 250 mg daily with DuoNebs 4 times a day as needed. Continue incentive spirometry. -Stable on room air. Goal sats greater 90% Continue levothyroxine 50 mcg daily Continue Creon with meals Chronic opiate dependence, continue buprenorphine 2 tabs daily Full code Regular diet
[2024-12-03] MEDS: PANTOPRAZOLE 40MG TABLET 40 MG PO (20:24)
[2024-12-03] MEDS: PRAZOSIN 1MG CAP 2 MG PO (20:25)
[2024-12-04] VITALS (23 sets, daily range): BP systolic 96–159; BP diastolic 61–98; PULSE 55–81; RESP 13–21; TEMP 36.6–37.2; O2SAT 92–96; BMI 23.8
[2024-12-04] MEDS: LORazepam 1MG TABLET 1 MG PO ×4 (04:27→20:21)
[2024-12-04 05:38] LABS: Albumin Level 2.7 g/dl (3.5-5.0); Chloride 103 mmol/L (98-107); Sodium 137 mmol/L (136-145)
[2024-12-04 05:39] LABS: Potassium 3.5 mmoL/L (3.5-5.1)
[2024-12-04 05:41] LABS: Alanine Aminotransferase 7 U/L (12-78); Anion Gap 2.5 mEq/L (5-15); Aspartate Amino Transferase 30 U/L (17-59); Blood Urea Nitrogen 9 mg/dl (9-20); Carbon Dioxide 35 mmol/L (22.0-30.0); Creatinine Clearance Estimated 138 mL/min (50-200); Estimated Glomerular Filt Rate 143 ml/min (>60); GFR (African American) 173 ML/MIN (>60)
[2024-12-04 05:42] LABS: Albumin/Globulin Ratio 1.1 (1.1-1.8); Alkaline Phosphatase 87 U/L (38-126); Bilirubin,Total 0.2 mg/dl (0.2-1.3); Calcium 9.1 mg/dl (8.4-10.2); Globulin 2.5 g/dL (1.3-3.2); Glucose 103 mg/dl (74-100); Total Protein,Serum 5.2 g/dl (6.3-8.2)
[2024-12-04 05:46] LABS: Magnesium 1.6 mg/dl (1.6-2.3)
[2024-12-04] MEDS: FLUTICASONE/SALMETEROL 250/50MCG DISKUS 1 PUFF IH ×2 (05:56→18:29)
[2024-12-04 05:59] LABS: Basophils % 0.4 % (0.1-2.0); Eosinophils # 0.2 Kmm3 (0.0-0.4); Eosinophils % 3.5 % (0.1-12.0); Hematocrit 31.3 % (42.0-52.0); Immature Granulocytes # 0.02 10^3uL; Immature Granulocytes % 0.4 %; Lymphocytes # 1.5 K/mm3 (0.7-4.5); Lymphocytes % 32.6 % (10-50); Mean Corpuscular HGB Conc 31.9 g/dL (31.8-35.4); Mean Corpuscular Volume 90.7 fl (80-94); Mean Platelet Volume 10.1 fl (7.4-10.4); Monocytes # 0.3 K/mm3 (0.1-1.0); Monocytes % 5.9 % (1.7-9.3); Neutrophils # 2.6 K/mm3 (1.8-7.8); Neutrophils % 57.2 % (37.0-80.0); Nucleated Red Blood Cells # 0 10^3/uL; Nucleated Red Blood Cells % 0 %; Platelet Count 104 K/mm3 (142-424); Red Blood Count 3.45 M/mm3 (4.60-6.20); Red Cell Distribution Width 13.5 % (11.5-17.5); Red Cell Distribution Width-SD 44.4 fL; White Blood Count 4.6 K/mm3 (4.8-10.8)
[2024-12-04 06:08] LABS: Hemoglobin 10.1 g/dL (14.1-18.0)
[2024-12-04] MEDS: LEVOTHYROXINE 25MCG (0.025MG) TAB 25 MCG PO (06:34)
[2024-12-04] MEDS: LIPASE/PROTEASE/AMYLASE 1 EACH CAPSULE.DR 2 EACH PO ×3 (06:34→18:06)
--- NOTE | 2024-12-04 09:23 | P.PN_ITS ---
Subjective *Date: 12/04/24 *Time: 14:46 Interval history: No acute respiratory events overnight. Denies any new respiratory complaints. Pulmonology Exam Inpatient Vital signs and Labs for Last 24 Hours: Temp Pulse Resp BP Pulse Ox O2 Del Method O2 Flow Rate 98.2 F 58 L 15 138/83 93 L Room Air 2 12/04/24 04:00 12/04/24 07:00 12/04/24 07:00 12/04/24 07:00 12/04/24 07:00 12/04/24 07:00 12/02/24 14:30 Laboratory Results - last 24 hr 12/04/24 04:38: WBC 4.6 L, RBC 3.45 L, Hgb 10.1 L D, Hct 31.3 L, MCV 90.7, MCH 29.0, MCHC 31.9, RDW 13.5, Plt Count 104 L, MPV 10.1, Neut % (Auto) 57.2, Lymph % (Auto) 32.6, [place] % (Auto) 5.9, Eos % (Auto) 3.5, Baso % (Auto) 0.4, Neut # (Auto) 2.6, Lymph # (Auto) 1.5, [place] # (Auto) 0.3, Eos # (Auto) 0.2, Baso # (Auto) 0.0, Sodium 137, Potassium 3.5, Chloride 103, Carbon Dioxide 35 H, Anion Gap 2.5 L, BUN 9, Creatinine 0.60 L, Estimated Creat Clear 138, Estimated GFR 143, Est GFR ( Amer) 173, Glucose 103 H, Calcium 9.1, Magnesium 1.6 D, Total Bilirubin 0.2, AST 30 D, ALT 7 L D, Alkaline Phosphatase 87, Total Protein 5.2 L, Albumin 2.7 L, Globulin 2.5, Albumin/Globulin Ratio 1.1 Temp Pulse Resp BP Pulse Ox O2 Del Method O2 Flow Rate 97.8 F 59 L 18 122/79 97 Nasal Cannula 2 12/02/24 04:00 12/02/24 08:00 12/02/24 06:59 12/02/24 06:59 12/02/24 08:00 12/02/24 09:00 12/02/24 09:00 Laboratory Results - last 24 hr 12/01/24 18:11: PT 15.3 H, INR 1.41 H, APTT 23.3, D-Dimer 1.62 H, Sodium 142, Potassium 3.6, Chloride 104, Carbon Dioxide 36 H, Anion Gap 5.6, BUN 14, Creatinine 0.60 L, Estimated Creat Clear 151, Estimated GFR 143, Est GFR ( Amer) 173, Glucose 106 H, Lactate 1.0, Calcium 9.0, Magnesium 1.5 L, Total Bilirubin 0.9, GGT 63, AST 41, ALT 8 L, Alkaline Phosphatase 119, Troponin I < 0.01, NT-Pro-B Natriuret Pep 120, Total Protein 7.3, Albumin 4.1, Globulin 3.2, Albumin/Globulin Ratio 1.3, Lipase 87, Plasma/Serum Alcohol < 10 12/01/24 18:50: WBC 7.7, RBC 4.28 L, Hgb 12.6 L, Hct 37.9 L, MCV 88.6, MCH 29.4, MCHC 33.2, RDW 14.0, Plt Count 152, MPV 9.7, Neut % (Auto) 66.0, Lymph % (Auto) 26.5, [place] % (Auto) 6.8, Eos % (Auto) 0.3, Baso % (Auto) 0.3, Neut # (Auto) 5.1, Lymph # (Auto) 2.0, [place] # (Auto) 0.5, Eos # (Auto) 0.0, Baso # (Auto) 0.0 12/01/24 19:23: Troponin I < 0.01 12/01/24 22:28: PT 12.0, INR 1.09, APTT 28.2 12/02/24 00:04: Troponin I < 0.01 12/02/24 05:30: WBC 3.6 L D, RBC 3.75 L, Hgb 11.3 L D, Hct 34.4 L, MCV 91.7, MCH 29.3, MCHC 32.0, RDW 14.3, Plt Count 111 L D, MPV 9.7, Neut % (Auto) 32.0 L, Lymph % (Auto) 53.3 H, [place] % (Auto) 10.3 H, Eos % (Auto) 3.3, Baso % (Auto) 0.8, Neut # (Auto) 1.2 L, Lymph # (Auto) 1.9, [place] # (Auto) 0.4, Eos # (Auto) 0.1, Baso # (Auto) 0.0, Sodium 141, Potassium 3.2 L, Chloride 107, Carbon Dioxide 35 H, Anion Gap 2.2 L, BUN 11, Creatinine 0.60 L, Estimated Creat Clear 133, Estimated GFR 143, Est GFR ( Amer) 173, Glucose 107 H, Calcium 7.9 L , Phosphorus 3.0, Magnesium 2.5 H D, Total Bilirubin 0.6, AST 58 D, ALT 8 L, Alkaline Phosphatase 103, Total Protein 5.3 L D, Albumin 2.9 L D, Globulin 2.4, Albumin/Globulin Ratio 1.2 12/02/24 05:33: POC Glucose 112 H I & O for Labs for Last 24 Hours: Intake & Output 12/01/24 12/02/24 12/03/24 12/04/24 23:59 23:59 23:59 23:59 Intake Total 3930 / 3930 2145 / 2145 Output Total 1375 / 1375 1025 / 1025 1575 / 1575 Balance 2555 / 2555 1120 / 1120 -1575 / -1575 Weight 139 lb 12.8 oz 140 lb 6.4 oz 146 lb 8 oz 152 lb 1.6 oz Intake & Output 11/29/24 11/30/24 12/01/24 12/02/24 23:59 23:59 23:59 23:59 Intake Total 2100 / 2100 Output Total 300 / 300 Balance 1800 / 1800 Weight 139 lb 12.8 oz 140 lb 6.4 oz Microbiology Reports for the Last 24 Hours: Microbiology 12/01/24 11:40 Urine,Clean Catch Urine Culture - Preliminary Constitutional: Present moderate distress Head: Present normocephalic and atraumatic ENT: Present normal exam, normal oropharynx and mucous membranes moist Neck: Present normal inspection and full ROM Respiratory: Present able to speak in complete sentences; Absent prolonged expiratory phase, respiratory distress, rhonchi, wheezes or crackles Cardiac: Present S1/S2, Tachycardia and radial pulses present GI: Present soft and distention; Absent tenderness or guarding Skin: Present intact; Absent cyanosis or jaundice Neuro: Present alert, awake and oriented x 3 Extremities: Present normal inspection; Absent clubbing or cyanosis Psychiatric: Present unable to assess Assessment and Plan *Assessment and plan (1) Alcohol withdrawal: Status: Acute Qualifiers: Complication of substance-induced condition: with delirium Qualified Code(s): F10.931 - Alcohol use, unspecified with withdrawal delirium Category: Medical Code(s): F10.939 - Alcohol use, unspecified with withdrawal, unspecified (2) Asthma: Status: Acute Category: Medical Code(s): J45.909 - Unspecified asthma, uncomplicated Plan Mr. Dave is a 49-year-old male history of asthma, PUD, gastritis, history of GI bleeds, tobacco and substance abuse was brought to the ER for an unwitnessed fall. Patient at baseline admits continued smoking. Not been compliant with his inhaler therapy. Admits respiratory symptoms on a daily basis associated with cough and productive phlegm. Patient arousable and responding appropriately to verbal commands. He admits continued drinking and also admits heavy drinking and passing out recently. His alcohol level upon admission within normal limits. He was found to be having hallucinations upon admission concern for DTs and was initiated on CIWA protocol. Chest x-ray no acute pulmonary parenchymal infiltrates. Hilar prominence likely pulmonary vasculature. The previously noted pneumonia from his admission appeared completely resolved with minimal residual scarring. CT head no acute changes. No hemorrhage Interval update: Afebrile. Hemodynamically stable. Leukopenia. Plan: Advair 250 inhaler along with DuoNebs 4 times daily as needed Incentive spirometry Not concern for seizure activity at this point of time. Will closely monitor his neurological status. Alcohol withdrawal management as per primary team. # Thank you for involving pulmonary in this patient care. Will follow the patient in pulmonary clinic 4 to 6 weeks post discharge with a full PFT walk testing.
[2024-12-04] MEDS: BUSPIRONE HCL 10 MG TABLET PO (09:31)
[2024-12-04] MEDS: VENLAFAXINE 37.5MG TABLET 37.5 MG PO ×2 (09:31→20:21)
[2024-12-04] MEDS: MVI, ADULT NO.1 WITH VIT K 10 ML, THIAMINE HCL 100 MG, MAGNESIUM SULFATE 2 GM in LACTAT... 125 ML IV (09:32)
[2024-12-04] MEDS: FOLIC ACID 1MG TABLET 1 MG PO (09:32)
[2024-12-04] MEDS: PHENobarbital SOD 130MG/ML INJ 130 MG IV ×2 (09:35→20:21)
[2024-12-04] MEDS: BUPRENORPHINE/NALOXONE 8MG/2MG ODT 2 EACH SL (09:35)
[2024-12-04] MEDS: NICOTINE 14MG/24HRS PATCH 14 MG TD (09:36)
--- NOTE | 2024-12-04 09:47 | PC.NURSE ---
Notified GI office of consult, spoke with Isabel. 1882
--- NOTE | 2024-12-04 13:23 | EXP.GE.CONS ---
History of Present Illness *Admission Date: 12/01/24 *History of present illness: 49-year-old male presents to the emergency department via EMS for an unwitnessed fall/syncopal episode that occurred several hours ago, unknown time down, patient is not on any anticoagulation therapy, patient is unsure if he struck the head, patient endorsed feeling sick , this morning with nausea and vomiting. History is limited due to delirium tremens. Currently endorsing severe abdominal pain. He states that he has been drinking approximately 2 sleeves of fireball daily. However he started having severe abdominal pain yesterday and as a result has been unable to drink any more. He has not had alcohol in about 24 hours. Currently he is hallucinating and seeing bugs all over the place. He is also having severe tremors. In the emergency department noted to have chronic anemia, supratherapeutic INR, hypomagnesemia. He was given phenobarbital with minimal results. I started him on Ativan 2 mg Q1 hour as needed for CIWA protocol with immediate improvement of symptoms. CT imaging of spine demonstrated no acute findings other than mild degenerative disc disease Chest x-ray demonstrated no acute cardiopulmonary abnormality EKG was normal sinus rhythm with no ST deviations Patient was admitted to ICU for delirium tremens Per H&P This is a 48-year-old male with a history of chronic alcohol consumption and a history of daily ibuprofen use this past summer. He was hospitalized in November 2023 for GI bleed. He underwent EGD with Dr. Nieves 11/2019 he found Schatzki's ring, gastritis, and duodenal ulcer that was oozing status post epinephrine injection. He was unable to place an Endo Clip at the time. He did return to the ER 02/2024 for upper GI bleed with coffee-ground emesis and maroon stools. He was drinking alcohol daily and taking 800 mg of ibuprofen daily. He underwent EGD again with Dr. Nieves who found gastritis as well as 1 cm inflamed duodenal ulcer. The patient was placed on Protonix but unsure of compliance. He had continued to drink alcohol. He was having coffee-ground emesis. He returned to the ER on 04/09 with nausea vomiting epigastric pain coffee-ground emesis and some dark red blood in his vomit. Hemoglobin was 11.3. He underwent EGD with Dr. Moran who found 11 to 12 mm duodenal ulcer status post Endo Clip placement, moderate esophageal dysmotility with a distal esophageal ring status post dilation. Patient was placed on Protonix twice a day and misoprostol. He was seen in the office a few months ago and was noncompliant with recommendations. He was still drinking alcohol. The patient has been in the hospital for a few days now and reports persistent chronic alcoholism that he is struggling to control. He reports waking up in the middle of the night and drinking alcohol. He still has epigastric pain. CT abdomen pelvis noted linear metallic density in second portion of duodenum about 1.8 cm in greatest dimension. In September [address] that showed metallic density that look to be in the first part of the duodenum possibly polypectomy clip. And surgical clips were seen in the proximal duodenum in March 2024 after Endo Clip placement by Dr. Moran. [facility] Disclaimer: The information contained in this section may have been updated after the patient was seen, as this information can be updated by other users. Medical History (Updated 12/04/24 @ 15:51 by Yohana Case APRN) Pulmonary emphysema Asthma Anemia Hiccups Insomnia disorder Vomiting Hypophosphatemia Hypomagnesemia Acute hypokalemia Abdominal pain Epigastric pain Screening for malignant neoplasm of colon Nausea Dyspepsia Abdominal pain Substance use disorder SVT (supraventricular tachycardia) Hypokalemia Alcohol abuse Shortness of breath Hematemesis Sepsis due to pneumonia Abdominal pain, acute Alcohol use disorder Gastrointestinal bleed Duodenal ulcer Necrotizing pneumonia Pneumonia Drug abuse and dependence Back pain Rib pain Shoulder pain Neck pain Acute UTI Back pain Ankle fracture Fracture of distal end of fibula Sinusitis Cellulitis Exposure to COVID-19 virus PTSD (post-traumatic stress disorder) Acute blood loss anemia Peptic ulcer disease with hemorrhage Chronic pain Anxiety Acute bronchitis Elbow pain, left Acute urinary tract infection Leukocytosis Acute appendicitis High risk medication use Tobacco abuse Asthma exacerbation Depression Anxiety Traumatic brain injury Surgical History History of foot surgery H/O lithotripsy History of appendectomy H/O right knee surgery H/O anterior cruciate ligament surgery Previous back surgery Family History Grandmother Cancer Diabetes Stroke Grandfather Cancer Mother Diabetes Hypertension Social History Smoking Status: Current every day smoker tobacco type: cigarettes packs per day: 1 alcohol intake: current alcohol intake frequency: a few times a week counseling provided: provider counseling substance use type: former substance user and prescription drug current occupational status: disabled Travel in the last 8 weeks?: None household members: significant other housing: house current occupational exposures/hazards: No caffeine: No Have you lived/traveled outside [place] in past 30 days?: No Contact w/someone who lives/traveled outside [place] past 30 days?: No Exposure to someone with infectious disease in past 14 days?: No Do you have a fever (greater than 100.4 F or 38 C)?: No Have you tested positive for COVID-19?: No Exposed to someone with COVID-19 in past 14 days?: No Do you have a sore throat?: No Do you have a cough?: No Do you have any weakness?: No Do you have any diarrhea?: No Are you experiencing any unusual bleeding?: No Do you have any muscle aches/pain?: No Do you have any abdominal pain?: No Are you experiencing loss of taste or smell?: No Review of Systems Constitutional Constitutional: Reports frequent falls ENT Ears, Nose, Mouth, and Throat: Reports disequilibrium and Reports dizziness *Neurologic Neurologic: Reports disequilibrium, Reports dizziness and Reports frequent falls Meds Home Medications and Allergies Home Medications ?Medication ?Instructions ?Recorded ?Confirmed ?Type multivitamin 1 tab PO DAILY #30 tabs 08/08/24 12/02/24 Rx albuterol sulfate 90 mcg/actuation 2 puff inhalation Q6HP PRN 10/14/24 12/02/24 Rx aerosol inhaler shortness of breath or wheezing #8.5 grams buprenorphine 8 mg-naloxone 2 mg 2 tab sublingual DAILY 14 days #28 10/14/24 12/02/24 Rx sublingual tablet tabs fluticasone fur. 100 mcg-umeclid 1 inh inhalation DAILY 30 days #60 10/14/24 12/02/24 Rx 62.5 mcg-vilant 25 mcg ea inhalat.powder (Trelegy Ellipta) folic acid 1 mg tablet 1 mg PO DAILY 30 days #30 tabs 10/14/24 12/02/24 Rx gabapentin 100 mg capsule 200 mg (2 x 100 mg) PO BID 30 days 10/14/24 12/02/24 Rx #120 caps fpggiv-uccyyxdb-xnncxjg 2 cap PO AC 30 days #180 caps 10/14/24 12/02/24 Rx 36,000-114,000-180,000 unit capsule,delay rel (Creon) misoprostol 200 mcg tablet 200 mcg PO BID 30 days #60 tabs 10/14/24 12/02/24 Rx pantoprazole 40 mg tablet,delayed 40 mg PO BID 30 days #60 tabs 10/14/24 12/02/24 Rx release sucralfate 1 gram tablet 1 g PO ACHS 30 days #120 tabs 10/14/24 12/02/24 Rx thiamine HCl (vitamin B1) 100 mg 100 mg PO DAILY #30 tabs 10/14/24 12/02/24 Rx tablet venlafaxine 37.5 mg tablet 37.5 mg PO BID 30 days #60 tabs 10/14/24 12/02/24 Rx buspirone 10 mg tablet 10 mg PO DAILY 12/02/24 12/02/24 History haloperidol 2 mg tablet 2 mg PO BID 12/02/24 12/02/24 History hydroxyzine HCl 25 mg tablet 25 mg PO TID 12/02/24 12/02/24 History levothyroxine 25 mcg tablet 25 mcg PO DAILYDM 12/02/24 12/02/24 History (Synthroid) olanzapine 5 mg tablet 5 mg PO HS 12/02/24 12/02/24 History prazosin 2 mg capsule 2 mg PO HS 12/02/24 12/02/24 History New Prescriptions to Start Prescriptions: Allergies Allergy/AdvReac Type Severity Reaction Status Date / Time aspirin (ASPIRIN) Allergy Unknown Nose Bleed Verified 10/21/24 13:05 cephalexin (From Keflex) Allergy Gastrointestinal Verified 10/21/24 13:05 Upset piperacillin (From Zosyn) Allergy Hives Verified 10/21/24 13:05 tazobactam (From Zosyn) Allergy Hives Verified 10/21/24 13:05 Exam (Inpt) Vital signs and Labs for Last 24 Hours: Temp Pulse Resp BP Pulse Ox O2 Del Method O2 Flow Rate 97.8 F 70 18 159/89 H 94 L Room Air 2 12/04/24 12:01 12/04/24 12:01 12/04/24 12:01 12/04/24 12:01 12/04/24 12:01 12/04/24 12:01 12/02/24 14:30 Laboratory Results - last 24 hr 12/04/24 04:38: WBC 4.6 L, RBC 3.45 L, Hgb 10.1 L D, Hct 31.3 L, MCV 90.7, MCH 29.0, MCHC 31.9, RDW 13.5, Plt Count 104 L, MPV 10.1, Neut % (Auto) 57.2, Lymph % (Auto) 32.6, [place] % (Auto) 5.9, Eos % (Auto) 3.5, Baso % (Auto) 0.4, Neut # (Auto) 2.6, Lymph # (Auto) 1.5, [place] # (Auto) 0.3, Eos # (Auto) 0.2, Baso # (Auto) 0.0, Sodium 137, Potassium 3.5, Chloride 103, Carbon Dioxide 35 H, Anion Gap 2.5 L, BUN 9, Creatinine 0.60 L, Estimated Creat Clear 138, Estimated GFR 143, Est GFR ( Amer) 173, Glucose 103 H, Calcium 9.1, Magnesium 1.6 D, Total Bilirubin 0.2, AST 30 D, ALT 7 L D, Alkaline Phosphatase 87, Total Protein 5.2 L, Albumin 2.7 L, Globulin 2.5, Albumin/Globulin Ratio 1.1 I & O for Labs for Last 24 Hours: Intake & Output 12/02/24 12/03/24 12/04/24 12/05/24 11:59 11:59 11:59 11:59 Intake Total 2300 2110 1665 Output Total 300 1175 3400 Balance 1999 935 -1735 Weight 63.684 kg 66.451 kg 68.991 kg Microbiology Reports for the Last 24 Hours: Microbiology 12/01/24 11:40 Urine,Clean Catch Urine Culture - Preliminary Constitutional: cooperative Comment:: Tearful Head: Present normocephalic and atraumatic Respiratory: Present CTA bilaterally Cardiac: Present Reg Rate and Rhythm GI: Present soft, tenderness (Epigastric TTP) and normal bowel sounds Skin: Present intact Neuro: Present Resting Tremor, alert, awake, oriented x 3 and moves all extremities Comment:: Mild nystagmus Results Labs 12/04/24 04:38 12/04/24 04:38 Labs: Laboratory Results - last 24 hr 12/04/24 04:38: WBC 4.6 L, RBC 3.45 L, Hgb 10.1 L D, Hct 31.3 L, MCV 90.7, MCH 29.0, MCHC 31.9, RDW 13.5, Plt Count 104 L, MPV 10.1, Neut % (Auto) 57.2, Lymph % (Auto) 32.6, [place] % (Auto) 5.9, Eos % (Auto) 3.5, Baso % (Auto) 0.4, Neut # (Auto) 2.6, Lymph # (Auto) 1.5, [place] # (Auto) 0.3, Eos # (Auto) 0.2, Baso # (Auto) 0.0, Sodium 137, Potassium 3.5, Chloride 103, Carbon Dioxide 35 H, Anion Gap 2.5 L, BUN 9, Creatinine 0.60 L, Estimated Creat Clear 138, Estimated GFR 143, Est GFR ( Amer) 173, Glucose 103 H, Calcium 9.1, Magnesium 1.6 D, Total Bilirubin 0.2, AST 30 D, ALT 7 L D, Alkaline Phosphatase 87, Total Protein 5.2 L, Albumin 2.7 L, Globulin 2.5, Albumin/Globulin Ratio 1.1 Assessment and Plan *Assessment and plan (1) Alcohol withdrawal: Status: Acute Category: Medical Code(s): F10.939 - Alcohol use, unspecified with withdrawal, unspecified (2) Delirium tremens: Status: Acute Category: Medical Code(s): F10.931 - Alcohol use, unspecified with withdrawal delirium (3) Anemia: Status: Acute Category: Medical Code(s): D64.9 - Anemia, unspecified (4) Duodenal ulcer: Status: Chronic Category: Medical Code(s): K26.9 - Duodenal ulcer, unspecified as acute or chronic, without hemorrhage or perforation (5) Esophagitis with gastritis: Status: Acute Category: Medical Code(s): K29.70 - Gastritis, unspecified, without bleeding; K20.90 - Esophagitis, unspecified without bleeding (6) Foreign body in intestine: Status: Acute Category: Medical Code(s): T18.3XXA - Foreign body in small intestine, initial encounter (7) Chronic alcohol abuse: Status: Acute Category: Medical Code(s): F10.10 - Alcohol abuse, uncomplicated Plan 1. Duodenal ulcer/foreign body in intestine Metallic density seen on CT is consistent with Endo Clip placement of duodenal ulcer on during EGD by Dr. Moran 03/2024. These usually pass on their own and occasionally can take 6 months to a year before they completely are gone. Appears as though this Endo Clip has moved distally since initial imaging in March. 2. Epigastric pain/gastritis/chronic alcohol abuse Long history of gastritis and duodenal ulcers. Patient has been noncompliant with medications and still drinking excessive alcohol. We had a discussion about the expected GI symptoms with chronic alcohol consumption. Hemoglobin appears stable. I recommend complete avoidance of NSAIDs going forward. I would restart his Protonix twice daily and misoprostol twice daily as well. I recommend patient return to rehab and we had an extensive conversation regarding this. No signs of cirrhosis on last testing. I happy to see him after discharge.
--- NOTE | 2024-12-04 19:04 | P.PN_ITS ---
Subjective *Date: 12/04/24 *Time: 22:01 Interval history: Still having some mild abdominal pain. Denies chest pain. Poor p.o. intake today. Stable on room air. No vomiting. Alert and oriented x 3 today Medical Exam Vital signs and Labs for Last 24 Hours: Vital Signs Temp Pulse Pulse Resp BP Pulse Ox O2 Del Method 12/04/24 18:55 Room Air 12/04/24 18:20 72 18 116/66 96 Room Air 12/04/24 16:38 Room Air 12/04/24 16:19 97.9 F 68 16 129/75 96 Room Air 12/04/24 16:00 81 17 95 Room Air 12/04/24 16:00 78 12/04/24 15:00 Room Air 12/04/24 14:00 61 18 131/90 96 Room Air 12/04/24 13:00 68 16 155/88 H 95 Room Air 12/04/24 13:00 Room Air 12/04/24 12:01 97.8 F 70 18 159/89 H 94 L Room Air 12/04/24 12:00 80 12/04/24 12:00 80 17 96 Room Air 12/04/24 11:00 63 16 149/93 H 92 L Room Air 12/04/24 11:00 Room Air 12/04/24 10:00 64 16 157/87 H 95 Room Air 12/04/24 09:00 Room Air 12/04/24 09:00 79 16 136/73 94 L Room Air 12/04/24 08:10 98.4 F 60 18 148/92 H 93 L Room Air 12/04/24 08:00 71 95 Room Air 12/04/24 08:00 71 12/04/24 07:00 58 L 15 138/83 93 L Room Air 12/04/24 07:00 Room Air 12/04/24 06:00 55 L 14 138/87 95 Room Air 12/04/24 05:00 57 L 15 132/86 93 L Room Air 12/04/24 04:56 Room Air 12/04/24 04:00 60 12/04/24 04:00 95 Room Air 12/04/24 04:00 98.2 F 63 15 141/84 H 92 L Room Air 12/04/24 03:00 Room Air 12/04/24 03:00 63 13 137/84 93 L Room Air 12/04/24 02:00 62 14 147/85 H 95 Room Air 12/04/24 01:00 Room Air 12/04/24 00:00 66 12/04/24 00:00 92 L Room Air 12/04/24 00:00 98.9 F 75 13 119/68 94 L Room Air 12/03/24 23:00 85 14 122/72 94 L Room Air 12/03/24 23:00 Room Air 12/03/24 22:00 71 18 144/89 H 95 Room Air 12/03/24 21:00 Room Air 12/03/24 21:00 74 15 130/73 95 Room Air 12/03/24 20:01 98.0 F 78 14 125/80 96 Room Air 12/03/24 20:00 95 Room Air 12/03/24 20:00 80 Intake and Output 12/04/24 12/04/24 12/04/24 07:59 15:59 23:59 Intake Total 420 / 840 420 / 840 Output Total 1575 / 2850 900 / 2850 375 / 2850 Balance -1574 - / Intake: Intake, Oral Amount 420 / 840 420 / 840 Output: Output, Urine Amount 1575 / 2850 900 / 2850 375 / 2850 Other: Number of Voids 1 Number of Unmeasured Voids 0 Weight 68.991 kg Patient Weight 12/04/24 23:59 Weight 68.991 kg Laboratory Results - last 24 hr 12/04/24 04:38: WBC 4.6 L, RBC 3.45 L, Hgb 10.1 L D, Hct 31.3 L, MCV 90.7, MCH 29.0, MCHC 31.9, RDW 13.5, Plt Count 104 L, MPV 10.1, Neut % (Auto) 57.2, Lymph % (Auto) 32.6, [place] % (Auto) 5.9, Eos % (Auto) 3.5, Baso % (Auto) 0.4, Neut # (Auto) 2.6, Lymph # (Auto) 1.5, [place] # (Auto) 0.3, Eos # (Auto) 0.2, Baso # (Auto) 0.0, Sodium 137, Potassium 3.5, Chloride 103, Carbon Dioxide 35 H, Anion Gap 2.5 L, BUN 9, Creatinine 0.60 L, Estimated Creat Clear 138, Estimated GFR 143, Est GFR ( Amer) 173, Glucose 103 H, Calcium 9.1, Magnesium 1.6 D, Total Bilirubin 0.2, AST 30 D, ALT 7 L D, Alkaline Phosphatase 87, Total Protein 5.2 L, Albumin 2.7 L, Globulin 2.5, Albumin/Globulin Ratio 1.1 I & O for Labs for Last 24 Hours: Intake & Output 12/01/24 12/02/24 12/03/24 12/04/24 23:59 23:59 23:59 23:59 Intake Total 3930 / 3930 2145 / 2145 840 / 840 Output Total 1375 / 1375 1025 / 1025 2850 / 2850 Balance 2555 / 2555 1120 / 1120 -2009 / Weight 63.412 kg 63.684 kg 66.451 kg 68.991 kg Microbiology Reports for the Last 24 Hours: Microbiology 12/01/24 11:40 Urine,Clean Catch Urine Culture - Preliminary Constitutional: Present mild distress, thin, chronically ill appearing and cooperative Head: Present atraumatic and normocephalic ENT: Present normal exam Comment:: Poor dentition Respiratory: Present prolonged expiratory phase, rhonchi and normal respiratory effort; Absent wheezes or crackles Cardiac: Present Reg Rate and Rhythm GI: Present soft, tenderness (Predominantly in epigastric region) and normal bowel sounds; Absent distention Extremities: Present normal inspection and full ROM; Absent edema Comment:: Thin Skin: Present intact; Absent erythema or rash Neuro: Present Grossly Intact, alert, awake, oriented x 3 and moves all extremities Assessment and Plan *Assessment and plan (1) Alcohol withdrawal: Status: Acute Category: Medical Code(s): F10.939 - Alcohol use, unspecified with withdrawal, unspecified (2) Delirium tremens: Status: Acute Category: Medical Code(s): F10.931 - Alcohol use, unspecified with withdrawal delirium (3) Duodenal ulcer: Status: Chronic Category: Medical Code(s): K26.9 - Duodenal ulcer, unspecified as acute or chronic, without hemorrhage or perforation (4) Hypomagnesemia: Status: Resolved Category: Medical Code(s): E83.42 - Hypomagnesemia (5) Hypokalemia: Status: Resolved Category: Medical Code(s): E87.6 - Hypokalemia (6) Flank pain: Status: Resolved Category: Medical Code(s): R10.9 - Unspecified abdominal pain (7) PTSD (post-traumatic stress disorder): Status: Acute Category: Medical Code(s): F43.10 - Post-traumatic stress disorder, unspecified (8) Generalized anxiety disorder with panic attacks: Status: Acute Category: Medical Code(s): F41.1 - Generalized anxiety disorder; F41.0 - Panic disorder [episodic paroxysmal anxiety] (9) Major depress dis, severe: Status: Acute Category: Medical Code(s): F32.2 - Major depressive disorder, single episode, severe without psychotic features (10) Alcoholic fatty liver: Status: Acute Category: Medical Code(s): K70.0 - Alcoholic fatty liver Plan Mr. Dave is a 49-year-old male with history of alcoholism, COPD, duodenal ulcers, and esophagitis presenting with severe alcohol withdrawal and DTs. Admitted for medical management. Symptoms defervescing. Still having CIWA scores on high single digits however. Improving abdominal discomfort. No vomiting but still nauseous. Still quite ill-appearing. Continues to require inpatient management. Anticipate discharge in the coming days. GI evaluating today due to metal foreign body in duodenum. Suspect it is consistent with his Endo Clip however appears quite large on CT. Problems addressed as follows: Acute Alcohol Withdrawal Chronic alcoholism -Continue CIWA protocol. Continue Valium per protocol. [facility]'s improving - food safety specialist consulted to assist with potential rehab referral and outpatient management once stable to discharge - Continue phenobarbital, decrease to 65 mg IV twice daily. - Continue vitamins per protocol with thiamine, folate, multivitamin daily - Seizure precautions - Count normal at 4.6. Kidney function normal with BUN 9, creatinine 0.6. Repeat CBC, CMP, magnesium and phosphorus ordered for the Abdominal pain Alcohol gastritis - GI cocktail after admission. Continue PPI with pantoprazole 40 mg twice daily. Zofran and Phenergan for nausea. - History of gastric ulcer. Monitor for signs of blood loss. Hemoglobin stable 10.1. CT obtained yesterday due to abdominal pain. Found to have metal clip in duodenum. GI evaluated today, as this is consistent with his Endo Clip placed several months ago for his duodenal ulcer. No active signs of bleeding. No further intervention at this time. COPD Tobacco use disorder -Pulmonology recommends continuing Advair 250 mg daily with DuoNebs 4 times a day as needed. Continue incentive spirometry. -Stable on room air. Goal sats greater 90% Continue levothyroxine 50 mcg daily Continue Creon with meals Chronic opiate dependence, continue buprenorphine 2 tabs daily Full code Regular diet
[2024-12-04] MEDS: PANTOPRAZOLE 40MG TABLET 40 MG PO (20:21)
[2024-12-04] MEDS: PRAZOSIN 1MG CAP 2 MG PO (20:21)
[2024-12-04] MEDS: ACETAMINOPHEN 325MG TAB 650 MG PO (22:09)
[2024-12-05] VITALS (9 sets, daily range): BP systolic 122–162; BP diastolic 69–100; PULSE 56–72; RESP 12–18; TEMP 36.6–37.1; O2SAT 95–97; BMI 23.0
[2024-12-05] MEDS: LORazepam 1MG TABLET 1 MG PO (00:07)
[2024-12-05 05:58] LABS: Basophils % 0.3 % (0.1-2.0); Eosinophils # 0.2 Kmm3 (0.0-0.4); Eosinophils % 3.8 % (0.1-12.0); Hematocrit 32.1 % (42.0-52.0); Hemoglobin 10.2 g/dL (14.1-18.0); Immature Granulocytes # 0.01 10^3uL; Immature Granulocytes % 0.3 %; Lymphocytes # 1.6 K/mm3 (0.7-4.5); Lymphocytes % 38.9 % (10-50); Mean Corpuscular HGB Conc 31.8 g/dL (31.8-35.4); Mean Corpuscular Hemoglobin 29.3 pg (27.0-31.2); Mean Corpuscular Volume 92.2 fl (80-94); Mean Platelet Volume 9.8 fl (7.4-10.4); Monocytes # 0.4 K/mm3 (0.1-1.0); Neutrophils # 1.9 K/mm3 (1.8-7.8); Neutrophils % 47.7 % (37.0-80.0); Nucleated Red Blood Cells # 0 10^3/uL; Nucleated Red Blood Cells % 0 %; Platelet Count 105 K/mm3 (142-424); Red Blood Count 3.48 M/mm3 (4.60-6.20); Red Cell Distribution Width 13.8 % (11.5-17.5); Red Cell Distribution Width-SD 46.7 fL
[2024-12-05 06:05] LABS: Chloride 103 mmol/L (98-107); Sodium 137 mmol/L (136-145)
[2024-12-05 06:08] LABS: Alanine Aminotransferase 9 U/L (12-78); Albumin/Globulin Ratio 1.2 (1.1-1.8); Alkaline Phosphatase 79 U/L (38-126); Aspartate Amino Transferase 34 U/L (17-59); Blood Urea Nitrogen 11 mg/dl (9-20); Carbon Dioxide 33 mmol/L (22.0-30.0); Creatinine Clearance Estimated 119 mL/min (50-200); Estimated Glomerular Filt Rate 119 ml/min (>60); GFR (African American) 144 ML/MIN (>60); Globulin 2.5 g/dL (1.3-3.2); Total Protein,Serum 5.5 g/dl (6.3-8.2)
[2024-12-05 06:09] LABS: Calcium 8.3 mg/dl (8.4-10.2); Glucose 107 mg/dl (74-100)
[2024-12-05] MEDS: FLUTICASONE/SALMETEROL 250/50MCG DISKUS 1 PUFF IH (06:10)
[2024-12-05] MEDS: LIPASE/PROTEASE/AMYLASE 1 EACH CAPSULE.DR 2 EACH PO ×2 (06:27→10:17)
[2024-12-05 06:34] LABS: Bilirubin,Total < 0.1 mg/dl (0.2-1.3)
[2024-12-05 07:00] LABS: Magnesium 1.8 mg/dl (1.6-2.3)
[2024-12-05] MEDS: LEVOTHYROXINE 25MCG (0.025MG) TAB 25 MCG PO (09:10)
[2024-12-05] MEDS: PANTOPRAZOLE 40MG TABLET 40 MG PO (10:15)
[2024-12-05] MEDS: NICOTINE 14MG/24HRS PATCH 14 MG TD (10:15)
[2024-12-05] MEDS: VENLAFAXINE 37.5MG TABLET 37.5 MG PO (10:16)
[2024-12-05] MEDS: FOLIC ACID 1MG TABLET 1 MG PO (10:17)
[2024-12-05] MEDS: BUSPIRONE HCL 10 MG TABLET PO (10:17)
[2024-12-05] MEDS: MVI, ADULT NO.1 WITH VIT K 10 ML, THIAMINE HCL 100 MG, MAGNESIUM SULFATE 2 GM in LACTAT... 125 ML IV (10:20)
[2024-12-05] MEDS: BUPRENORPHINE/NALOXONE 8MG/2MG ODT 2 EACH SL (10:20)
--- NOTE | 2024-12-05 11:57 | EXP.DC.SUM ---
General Admission date:: 12/01/24 HPI HPI HPI: 49-year-old male presents to the emergency department via EMS for an unwitnessed fall/syncopal episode that occurred several hours ago, unknown time down, patient is not on any anticoagulation therapy, patient is unsure if he struck the head, patient endorsed feeling sick , this morning with nausea and vomiting. History is limited due to delirium tremens. Currently endorsing severe abdominal pain. He states that he has been drinking approximately 2 sleeves of fireball daily. However he started having severe abdominal pain yesterday and as a result has been unable to drink any more. He has not had alcohol in about 24 hours. Currently he is hallucinating and seeing bugs all over the place. He is also having severe tremors. In the emergency department noted to have chronic anemia, supratherapeutic INR, hypomagnesemia. He was given phenobarbital with minimal results. I started him on Ativan 2 mg Q1 hour as needed for CIWA protocol with immediate improvement of symptoms. CT imaging of spine demonstrated no acute findings other than mild degenerative disc disease Chest x-ray demonstrated no acute cardiopulmonary abnormality EKG was normal sinus rhythm with no ST deviations Patient was admitted to ICU for delirium tremens Per H&P This is a 48-year-old male with a history of chronic alcohol consumption and a history of daily ibuprofen use this past summer. He was hospitalized in November 2023 for GI bleed. He underwent EGD with Dr. Nieves 11/2019 he found Schatzki's ring, gastritis, and duodenal ulcer that was oozing status post epinephrine injection. He was unable to place an Endo Clip at the time. He did return to the ER 02/2024 for upper GI bleed with coffee-ground emesis and maroon stools. He was drinking alcohol daily and taking 800 mg of ibuprofen daily. He underwent EGD again with Dr. Nieves who found gastritis as well as 1 cm inflamed duodenal ulcer. The patient was placed on Protonix but unsure of compliance. He had continued to drink alcohol. He was having coffee-ground emesis. He returned to the ER on 04/09 with nausea vomiting epigastric pain coffee-ground emesis and some dark red blood in his vomit. Hemoglobin was 11.3. He underwent EGD with Dr. Moran who found 11 to 12 mm duodenal ulcer status post Endo Clip placement, moderate esophageal dysmotility with a distal esophageal ring status post dilation. Patient was placed on Protonix twice a day and misoprostol. He was seen in the office a few months ago and was noncompliant with recommendations. He was still drinking alcohol. The patient has been in the hospital for a few days now and reports persistent chronic alcoholism that he is struggling to control. He reports waking up in the middle of the night and drinking alcohol. He still has epigastric pain. CT abdomen pelvis noted linear metallic density in second portion of duodenum about 1.8 cm in greatest dimension. In September [address] that showed metallic density that look to be in the first part of the duodenum possibly polypectomy clip. And surgical clips were seen in the proximal duodenum in March 2024 after Endo Clip placement by Dr. Moran. Exam Data for Last 24 hours Vital signs and Labs for Last 24 Hours: Temp Pulse Resp BP Pulse Ox O2 Del Method O2 Flow Rate 97.9 F 61 16 150/81 H 96 Room Air 3 12/05/24 08:12/05/24 10:12/05/24 10:12/05/24 10:12/05/24 10:12/05/24 10:12/05/24 01:00 Laboratory Results - last 24 hr 12/01/24 11:40: Urine Color Yellow, Urine Appearance Clear, Urine pH 7.5, Ur Specific [place] 1.020, Urine Protein Negative, Urine Glucose (UA) Negative, Urine Ketones Negative, Urine Blood 1+ A, Urine Nitrate Negative, Urine Bilirubin Negative, Urine Urobilinogen 1.0, Ur Leukocyte Esterase Negative, Urine RBC 3-5, Urine WBC 5-10, Amorphous Sediment 3+, Urine Bacteria 3+ 12/05/24 05:17: WBC 4.0 L, RBC 3.48 L, Hgb 10.2 L, Hct 32.1 L, MCV 92.2, MCH 29.3, MCHC 31.8, RDW 13.8, Plt Count 105 L, MPV 9.8, Neut % (Auto) 47.7, Lymph % (Auto) 38.9, [place] % (Auto) 9.0, Eos % (Auto) 3.8, Baso % (Auto) 0.3, Neut # (Auto) 1.9, Lymph # (Auto) 1.6, [place] # (Auto) 0.4, Eos # (Auto) 0.2, Baso # (Auto) 0.0, Sodium 137, Potassium 4.0, Chloride 103, Carbon Dioxide 33 H, Anion Gap 5.0, BUN 11, Creatinine 0.70, Estimated Creat Clear 119, Estimated GFR 119, Est GFR ( Amer) 144, Glucose 107 H, Calcium 8.3 L, Magnesium 1.8 D, Total Bilirubin < 0.1 L, AST 34, ALT 9 L D, Alkaline Phosphatase 79, Total Protein 5.5 L, Albumin 3.0 L D, Globulin 2.5, Albumin/Globulin Ratio 1.2 I & O for Last 24 hours: Intake & Output 12/02/24 12/03/24 12/04/24 12/05/24 23:59 23:59 23:59 23:59 Intake Total 3930 / 3930 2145 / 2145 840 / 840 1690 / 1690 Output Total 1375 / 1375 1025 / 1025 3750 / 4050 2024 / 2024 Balance 2555 / 2555 1120 / 1120 -2910 / -3210 -335 / -335 Weight 63.684 kg 66.451 kg 68.991 kg 66.542 kg Microbiology Reports for the Last 24 Hours: Microbiology 12/01/24 11:40 Urine,Clean Catch Urine Culture - Preliminary Gram Positive Cocci Results Data Completed and Pending Labs on day of discharge: Labs from last 24 hours 12/05/24 12/01/24 05:17 11:40 WBC 4.0 L RBC 3.48 L Hgb 10.2 L Hct 32.1 L MCV 92.2 MCH 29.3 MCHC 31.8 RDW 13.8 Plt Count 105 L MPV 9.8 Neut % (Auto) 47.7 Lymph % (Auto) 38.9 [place] % (Auto) 9.0 Eos % (Auto) 3.8 Baso % (Auto) 0.3 Neut # (Auto) 1.9 Lymph # (Auto) 1.6 [place] # (Auto) 0.4 Eos # (Auto) 0.2 Baso # (Auto) 0.0 Sodium 137 Potassium 4.0 Chloride 103 Carbon Dioxide 33 H Anion Gap 5.0 BUN 11 Creatinine 0.70 Estimated Creat Clear 119 Estimated GFR 119 Est GFR ( Amer) 144 Glucose 107 H Calcium 8.3 L Magnesium 1.8 D Total Bilirubin < 0.1 L AST 34 ALT 9 L D Alkaline Phosphatase 79 Total Protein 5.5 L Albumin 3.0 L D Globulin 2.5 Albumin/Globulin Ratio 1.2 Urine Color Yellow Urine Appearance Clear Urine pH 7.5 Ur Specific [place] 1.020 Urine Protein Negative Urine Glucose (UA) Negative Urine Ketones Negative Urine Blood 1+ A Urine Nitrate Negative Urine Bilirubin Negative Urine Urobilinogen 1.0 Ur Leukocyte Esterase Negative Urine RBC 3-5 Urine WBC 5-10 Amorphous Sediment 3+ Urine Bacteria 3+ Preliminary micro results at discharge 12/01/24 11:40 Urine Culture - Preliminary Urine,Clean Catch Gram Positive Cocci DS: Diagnosis Discharge Diagnosis (1) Alcohol withdrawal: Status: Acute Code(s): F10.939 - Alcohol use, unspecified with withdrawal, unspecified (2) Delirium tremens: Status: Acute Code(s): F10.931 - Alcohol use, unspecified with withdrawal delirium (3) Duodenal ulcer: Status: Chronic Code(s): K26.9 - Duodenal ulcer, unspecified as acute or chronic, without hemorrhage or perforation (4) Hypomagnesemia: Status: Resolved Code(s): E83.42 - Hypomagnesemia (5) Hypokalemia: Status: Resolved Code(s): E87.6 - Hypokalemia (6) Flank pain: Status: Resolved Code(s): R10.9 - Unspecified abdominal pain (7) PTSD (post-traumatic stress disorder): Status: Acute Code(s): F43.10 - Post-traumatic stress disorder, unspecified (8) Generalized anxiety disorder with panic attacks: Status: Acute Code(s): F41.1 - Generalized anxiety disorder; F41.0 - Panic disorder [episodic paroxysmal anxiety] (9) Major depress dis, severe: Status: Acute Code(s): F32.2 - Major depressive disorder, single episode, severe without psychotic features (10) Alcoholic fatty liver: Status: Acute Code(s): K70.0 - Alcoholic fatty liver Meds Home Medications and Allergies Home Medications ?Medication ?Instructions ?Recorded ?Confirmed ?Type multivitamin 1 tab PO DAILY #30 tabs 08/08/24 12/02/24 Rx albuterol sulfate 90 mcg/actuation 2 puff inhalation Q6HP PRN 10/14/24 12/02/24 Rx aerosol inhaler shortness of breath or wheezing #8.5 grams buprenorphine 8 mg-naloxone 2 mg 2 tab sublingual DAILY 14 days #28 10/14/24 12/02/24 Rx sublingual tablet tabs fluticasone fur. 100 mcg-umeclid 1 inh inhalation DAILY 30 days #60 10/14/24 12/02/24 Rx 62.5 mcg-vilant 25 mcg ea inhalat.powder (Trelegy Ellipta) folic acid 1 mg tablet 1 mg PO DAILY 30 days #30 tabs 10/14/24 12/02/24 Rx gabapentin 100 mg capsule 200 mg (2 x 100 mg) PO BID 30 days 10/14/24 12/02/24 Rx #120 caps xhkgta-twhgywny-goiqhdu 2 cap PO AC 30 days #180 caps 10/14/24 12/02/24 Rx 36,000-114,000-180,000 unit capsule,delay rel (Creon) misoprostol 200 mcg tablet 200 mcg PO BID 30 days #60 tabs 10/14/24 12/02/24 Rx pantoprazole 40 mg tablet,delayed 40 mg PO BID 30 days #60 tabs 10/14/24 12/02/24 Rx release sucralfate 1 gram tablet 1 g PO ACHS 30 days #120 tabs 10/14/24 12/02/24 Rx thiamine HCl (vitamin B1) 100 mg 100 mg PO DAILY #30 tabs 10/14/24 12/02/24 Rx tablet venlafaxine 37.5 mg tablet 37.5 mg PO BID 30 days #60 tabs 10/14/24 12/02/24 Rx buspirone 10 mg tablet 10 mg PO DAILY 12/02/24 12/02/24 History haloperidol 2 mg tablet 2 mg PO BID 12/02/24 12/02/24 History hydroxyzine HCl 25 mg tablet 25 mg PO TID 12/02/24 12/02/24 History levothyroxine 25 mcg tablet 25 mcg PO DAILYDM 12/02/24 12/02/24 History (Synthroid) olanzapine 5 mg tablet 5 mg PO HS 12/02/24 12/02/24 History prazosin 2 mg capsule 2 mg PO HS 12/02/24 12/02/24 History New Prescriptions to Start Prescriptions: Allergies Allergy/AdvReac Type Severity Reaction Status Date / Time aspirin (ASPIRIN) Allergy Unknown Nose Bleed Verified 10/21/24 13:05 cephalexin (From Keflex) Allergy Gastrointestinal Verified 10/21/24 13:05 Upset piperacillin (From Zosyn) Allergy Hives Verified 10/21/24 13:05 tazobactam (From Zosyn) Allergy Hives Verified 10/21/24 13:05 Discharge Plan Follow up Plan Follow up with: Yohana Case APRN [Nurse Practitioner, Gastroenterology] - Enter time for follow up Seb Hadley MD [Physician, Pulmonology] - Enter time for follow up Prescriptions/Medication Reconciliation: No Action multivitamin Tablet 1 tab PO DAILY Qty: 30 0RF olanzapine 5 mg tablet 5 mg PO HS buspirone 10 mg tablet 10 mg PO DAILY hydroxyzine HCl 25 mg tablet 25 mg PO TID haloperidol 2 mg tablet 2 mg PO BID prazosin 2 mg capsule 2 mg PO HS levothyroxine [Synthroid] 25 mcg tablet 25 mcg PO DAILYDM sucralfate 1 gram Tablet 1 g PO ACHS 30 Days Qty: 120 0RF venlafaxine 37.5 mg Tablet 37.5 mg PO BID 30 Days Qty: 60 0RF Trelegy Ellipta 100-62.5-25 mcg Blister With Device 1 inh inhalation DAILY 30 Days Qty: 60 0RF thiamine HCl (vitamin B1) 100 mg tablet 100 mg PO DAILY Qty: 30 0RF pantoprazole 40 mg tablet,delayed release (DR/EC) 40 mg PO BID 30 Days Qty: 60 0RF misoprostol 200 mcg Tablet 200 mcg PO BID 30 Days Qty: 60 0RF folic acid 1 mg Tablet 1 mg PO DAILY 30 Days Qty: 30 0RF gabapentin 100 mg Capsule 200 mg PO BID 30 Days Qty: 120 0RF albuterol sulfate 90 mcg/actuation HFA aerosol inhaler 2 puff inhalation Q6HP PRN (Reason: shortness of breath or wheezing) Qty: 8.5 3RF buprenorphine-naloxone 8-2 mg tablet, sublingual 2 tab sublingual DAILY 14 Days Qty: 28 0RF Rx Instructions: VERIFIED WITH PHARMACY Creon 36,000-114,000- 180,000 unit Capsule,Delayed Release(Dr/Ec) 2 cap PO AC 30 Days Qty: 180 0RF Other Ambulatory Orders: RT walk test 6 minutes (Routine) Timeframe: 4 Weeks Facility: [facility] - Location: Respiratory Therapy Ordered By: Seb Hadley RT complete PFT (Routine) Timeframe: 4 Weeks Facility: [facility] - Location: Respiratory Therapy Ordered By: Seb Hadley Patient Discharge Instructions Print Language: Singaporean Providers Primary Care Provider: Tim Rey Admit Provider: Michael Bernstein Attending Provider: Michael Bernstein
--- NOTE | 2024-12-05 13:10 | EXP.DC.SUM ---
General Admission date:: 12/01/24 HPI HPI HPI: 49-year-old male presents to the emergency department via EMS for an unwitnessed fall/syncopal episode that occurred several hours ago, unknown time down, patient is not on any anticoagulation therapy, patient is unsure if he struck the head, patient endorsed feeling sick , this morning with nausea and vomiting. History is limited due to delirium tremens. Currently endorsing severe abdominal pain. He states that he has been drinking approximately 2 sleeves of fireball daily. However he started having severe abdominal pain yesterday and as a result has been unable to drink any more. He has not had alcohol in about 24 hours. Currently he is hallucinating and seeing bugs all over the place. He is also having severe tremors. In the emergency department noted to have chronic anemia, supratherapeutic INR, hypomagnesemia. He was given phenobarbital with minimal results. I started him on Ativan 2 mg Q1 hour as needed for CIWA protocol with immediate improvement of symptoms. CT imaging of spine demonstrated no acute findings other than mild degenerative disc disease Chest x-ray demonstrated no acute cardiopulmonary abnormality EKG was normal sinus rhythm with no ST deviations Patient was admitted to ICU for delirium tremens Per H&P This is a 48-year-old male with a history of chronic alcohol consumption and a history of daily ibuprofen use this past summer. He was hospitalized in November 2023 for GI bleed. He underwent EGD with Dr. Nieves 11/2019 he found Schatzki's ring, gastritis, and duodenal ulcer that was oozing status post epinephrine injection. He was unable to place an Endo Clip at the time. He did return to the ER 02/2024 for upper GI bleed with coffee-ground emesis and maroon stools. He was drinking alcohol daily and taking 800 mg of ibuprofen daily. He underwent EGD again with Dr. Nieves who found gastritis as well as 1 cm inflamed duodenal ulcer. The patient was placed on Protonix but unsure of compliance. He had continued to drink alcohol. He was having coffee-ground emesis. He returned to the ER on 04/09 with nausea vomiting epigastric pain coffee-ground emesis and some dark red blood in his vomit. Hemoglobin was 11.3. He underwent EGD with Dr. Moran who found 11 to 12 mm duodenal ulcer status post Endo Clip placement, moderate esophageal dysmotility with a distal esophageal ring status post dilation. Patient was placed on Protonix twice a day and misoprostol. He was seen in the office a few months ago and was noncompliant with recommendations. He was still drinking alcohol. The patient has been in the hospital for a few days now and reports persistent chronic alcoholism that he is struggling to control. He reports waking up in the middle of the night and drinking alcohol. He still has epigastric pain. CT abdomen pelvis noted linear metallic density in second portion of duodenum about 1.8 cm in greatest dimension. In September [address] that showed metallic density that look to be in the first part of the duodenum possibly polypectomy clip. And surgical clips were seen in the proximal duodenum in March 2024 after Endo Clip placement by Dr. Moran. Hospital Course Hospital Course Hospital Course: Has follow-up with [facility] on 12/09/2024 at 2:30 PM. Total time spent on discharge: 32 minutes on chart review, counseling, documentation, and direct care with patient. Exam Data for Last 24 hours Vital signs and Labs for Last 24 Hours: Temp Pulse Resp BP Pulse Ox O2 Del Method O2 Flow Rate 98.8 F 69 18 162/100 H 95 Room Air 3 12/05/24 12:01 12/05/24 12:01 12/05/24 12:01 12/05/24 12:01 12/05/24 12:01 12/05/24 12:57 12/05/24 01:00 Laboratory Results - last 24 hr 12/01/24 11:40: Urine Color Yellow, Urine Appearance Clear, Urine pH 7.5, Ur Specific [place] 1.020, Urine Protein Negative, Urine Glucose (UA) Negative, Urine Ketones Negative, Urine Blood 1+ A, Urine Nitrate Negative, Urine Bilirubin Negative, Urine Urobilinogen 1.0, Ur Leukocyte Esterase Negative, Urine RBC 3-5, Urine WBC 5-10, Amorphous Sediment 3+, Urine Bacteria 3+ 12/05/24 05:17: WBC 4.0 L, RBC 3.48 L, Hgb 10.2 L, Hct 32.1 L, MCV 92.2, MCH 29.3, MCHC 31.8, RDW 13.8, Plt Count 105 L, MPV 9.8, Neut % (Auto) 47.7, Lymph % (Auto) 38.9, [place] % (Auto) 9.0, Eos % (Auto) 3.8, Baso % (Auto) 0.3, Neut # (Auto) 1.9, Lymph # (Auto) 1.6, [place] # (Auto) 0.4, Eos # (Auto) 0.2, Baso # (Auto) 0.0, Sodium 137, Potassium 4.0, Chloride 103, Carbon Dioxide 33 H, Anion Gap 5.0, BUN 11, Creatinine 0.70, Estimated Creat Clear 119, Estimated GFR 119, Est GFR ( Amer) 144, Glucose 107 H, Calcium 8.3 L, Magnesium 1.8 D, Total Bilirubin < 0.1 L, AST 34, ALT 9 L D, Alkaline Phosphatase 79, Total Protein 5.5 L, Albumin 3.0 L D, Globulin 2.5, Albumin/Globulin Ratio 1.2 I & O for Last 24 hours: Intake & Output 12/02/24 12/03/24 12/04/24 12/05/24 23:59 23:59 23:59 23:59 Intake Total 3930 / 3930 2145 / 2145 840 / 840 1690 / 1690 Output Total 1375 / 1375 1025 / 1025 3750 / 4050 2024 / 2024 Balance 2555 / 2555 1120 / 1120 -2910 / -3210 -335 / -335 Weight 63.684 kg 66.451 kg 68.991 kg 66.542 kg Microbiology Reports for the Last 24 Hours: Microbiology 12/01/24 11:40 Urine,Clean Catch Urine Culture - Preliminary Gram Positive Cocci Results Data Completed and Pending Labs on day of discharge: Labs from last 24 hours 12/05/24 12/01/24 05:17 11:40 WBC 4.0 L RBC 3.48 L Hgb 10.2 L Hct 32.1 L MCV 92.2 MCH 29.3 MCHC 31.8 RDW 13.8 Plt Count 105 L MPV 9.8 Neut % (Auto) 47.7 Lymph % (Auto) 38.9 [place] % (Auto) 9.0 Eos % (Auto) 3.8 Baso % (Auto) 0.3 Neut # (Auto) 1.9 Lymph # (Auto) 1.6 [place] # (Auto) 0.4 Eos # (Auto) 0.2 Baso # (Auto) 0.0 Sodium 137 Potassium 4.0 Chloride 103 Carbon Dioxide 33 H Anion Gap 5.0 BUN 11 Creatinine 0.70 Estimated Creat Clear 119 Estimated GFR 119 Est GFR ( Amer) 144 Glucose 107 H Calcium 8.3 L Magnesium 1.8 D Total Bilirubin < 0.1 L AST 34 ALT 9 L D Alkaline Phosphatase 79 Total Protein 5.5 L Albumin 3.0 L D Globulin 2.5 Albumin/Globulin Ratio 1.2 Urine Color Yellow Urine Appearance Clear Urine pH 7.5 Ur Specific [place] 1.020 Urine Protein Negative Urine Glucose (UA) Negative Urine Ketones Negative Urine Blood 1+ A Urine Nitrate Negative Urine Bilirubin Negative Urine Urobilinogen 1.0 Ur Leukocyte Esterase Negative Urine RBC 3-5 Urine WBC 5-10 Amorphous Sediment 3+ Urine Bacteria 3+ Preliminary micro results at discharge 12/01/24 11:40 Urine Culture - Preliminary Urine,Clean Catch Gram Positive Cocci DS: Diagnosis Discharge Diagnosis (1) Alcohol withdrawal: Status: Acute Code(s): F10.939 - Alcohol use, unspecified with withdrawal, unspecified (2) Delirium tremens: Status: Acute Code(s): F10.931 - Alcohol use, unspecified with withdrawal delirium (3) Duodenal ulcer: Status: Chronic Code(s): K26.9 - Duodenal ulcer, unspecified as acute or chronic, without hemorrhage or perforation (4) Hypomagnesemia: Status: Resolved Code(s): E83.42 - Hypomagnesemia (5) Hypokalemia: Status: Resolved Code(s): E87.6 - Hypokalemia (6) Flank pain: Status: Resolved Code(s): R10.9 - Unspecified abdominal pain (7) PTSD (post-traumatic stress disorder): Status: Acute Code(s): F43.10 - Post-traumatic stress disorder, unspecified (8) Generalized anxiety disorder with panic attacks: Status: Acute Code(s): F41.1 - Generalized anxiety disorder; F41.0 - Panic disorder [episodic paroxysmal anxiety] (9) Major depress dis, severe: Status: Acute Code(s): F32.2 - Major depressive disorder, single episode, severe without psychotic features (10) Alcoholic fatty liver: Status: Acute Code(s): K70.0 - Alcoholic fatty liver Meds Home Medications and Allergies Home Medications ?Medication ?Instructions ?Recorded ?Confirmed ?Type multivitamin 1 tab PO DAILY #30 tabs 08/08/24 12/02/24 Rx albuterol sulfate 90 mcg/actuation 2 puff inhalation Q6HP PRN 10/14/24 12/02/24 Rx aerosol inhaler shortness of breath or wheezing #8.5 grams fluticasone fur. 100 mcg-umeclid 1 inh inhalation DAILY 30 days #60 10/14/24 12/02/24 Rx 62.5 mcg-vilant 25 mcg ea inhalat.powder (Trelegy Ellipta) folic acid 1 mg tablet 1 mg PO DAILY 30 days #30 tabs 10/14/24 12/02/24 Rx gabapentin 100 mg capsule 200 mg (2 x 100 mg) PO BID 30 days 10/14/24 12/02/24 Rx #120 caps rrqcpu-zohmrzuh-pkwhqbs 2 cap PO AC 30 days #180 caps 10/14/24 12/02/24 Rx 36,000-114,000-180,000 unit capsule,delay rel (Creon) misoprostol 200 mcg tablet 200 mcg PO BID 30 days #60 tabs 10/14/24 12/02/24 Rx pantoprazole 40 mg tablet,delayed 40 mg PO BID 30 days #60 tabs 10/14/24 12/02/24 Rx release sucralfate 1 gram tablet 1 g PO ACHS 30 days #120 tabs 10/14/24 12/02/24 Rx thiamine HCl (vitamin B1) 100 mg 100 mg PO DAILY #30 tabs 10/14/24 12/02/24 Rx tablet venlafaxine 37.5 mg tablet 37.5 mg PO BID 30 days #60 tabs 10/14/24 12/02/24 Rx buspirone 10 mg tablet 10 mg PO DAILY 12/02/24 12/02/24 History haloperidol 2 mg tablet 2 mg PO BID 12/02/24 12/02/24 History hydroxyzine HCl 25 mg tablet 25 mg PO TID 12/02/24 12/02/24 History levothyroxine 25 mcg tablet 25 mcg PO DAILYDM 12/02/24 12/02/24 History (Synthroid) olanzapine 5 mg tablet 5 mg PO HS 12/02/24 12/02/24 History prazosin 2 mg capsule 2 mg PO HS 12/02/24 12/02/24 History buprenorphine 8 mg-naloxone 2 mg 2 tab sublingual DAILY 4 days #8 12/05/24 Rx sublingual tablet tabs New Prescriptions to Start Prescriptions: buprenorphine-naloxone Facundo Silver Allergies Allergy/AdvReac Type Severity Reaction Status Date / Time aspirin (ASPIRIN) Allergy Unknown Nose Bleed Verified 10/21/24 13:05 cephalexin (From Keflex) Allergy Gastrointestinal Verified 10/21/24 13:05 Upset piperacillin (From Zosyn) Allergy Hives Verified 10/21/24 13:05 tazobactam (From Zosyn) Allergy Hives Verified 10/21/24 13:05 Discharge Plan Disposition Patient Disposition: Home, Self-Care Condition: Fair Discharge Order Discharge Orders: Discharge Order (Routine); Ordered 12/05/24 Ordered By: Facundo Silver Follow up Plan Follow up with: Yohana Case APRN [Nurse Practitioner, Gastroenterology] - Enter time for follow up Seb Hadley MD [Physician, Pulmonology] - Enter time for follow up Prescriptions/Medication Reconciliation: Continued multivitamin Tablet 1 tab PO DAILY Qty: 30 0RF olanzapine 5 mg tablet 5 mg PO HS buspirone 10 mg tablet 10 mg PO DAILY hydroxyzine HCl 25 mg tablet 25 mg PO TID haloperidol 2 mg tablet 2 mg PO BID prazosin 2 mg capsule 2 mg PO HS levothyroxine [Synthroid] 25 mcg tablet 25 mcg PO DAILYDM buprenorphine-naloxone 8-2 mg tablet, sublingual 2 tab sublingual DAILY 4 Days Qty: 8 0RF Rx Instructions: VERIFIED WITH PHARMACY sucralfate 1 gram Tablet 1 g PO ACHS 30 Days Qty: 120 0RF venlafaxine 37.5 mg Tablet 37.5 mg PO BID 30 Days Qty: 60 0RF Trelegy Ellipta 100-62.5-25 mcg Blister With Device 1 inh inhalation DAILY 30 Days Qty: 60 0RF thiamine HCl (vitamin B1) 100 mg tablet 100 mg PO DAILY Qty: 30 0RF pantoprazole 40 mg tablet,delayed release (DR/EC) 40 mg PO BID 30 Days Qty: 60 0RF misoprostol 200 mcg Tablet 200 mcg PO BID 30 Days Qty: 60 0RF folic acid 1 mg Tablet 1 mg PO DAILY 30 Days Qty: 30 0RF gabapentin 100 mg Capsule 200 mg PO BID 30 Days Qty: 120 0RF albuterol sulfate 90 mcg/actuation HFA aerosol inhaler 2 puff inhalation Q6HP PRN (Reason: shortness of breath or wheezing) Qty: 8.5 3RF Creon 36,000-114,000- 180,000 unit Capsule,Delayed Release(Dr/Ec) 2 cap PO AC 30 Days Qty: 180 0RF Other Ambulatory Orders: RT walk test 6 minutes (Routine) Timeframe: 4 Weeks Facility: [facility] - Location: Respiratory Therapy Ordered By: Seb Hadley RT complete PFT (Routine) Timeframe: 4 Weeks Facility: [facility] - Location: Respiratory Therapy Ordered By: Seb Hadley Problem Reconciliation Problems Reviewed?: Yes Patient Discharge Instructions Print Language: Maltese Providers Primary Care Provider: Tim Rey Admit Provider: Michael Bernstein Attending Provider: Michael Bernstein
--- NOTE | 2024-12-05 14:28 | CA_ITS ---
FINAL REPORT TECHNIQUE: Graded compression, spectral analysis and ultrasound images of the venous system of the upper extremity were obtained. CLINICAL HISTORY: EDEMA LT FOREARM,NKI FINDINGS: The jugular vein, subclavian vein, axillary vein, brachial vein, cephalic vein and basilic venous system are fully compressible and demonstrate no evidence of thrombosis. IMPRESSION: No evidence of thrombosis of the venous system of the left upper extremity. Reviewed, Interpreted and Dictated by Rangel Soto MD Transcribed by Sydni Hdez Authenticated and [facility][1]
--- NOTE | 2024-12-05 15:52 | PC.NURSE ---
pt discharged home with suboxone prescription. IV discontinued with tip intact. pt ROSIE is a 1 on discharge for tremors felt. pt informed about all of his follow up appointments including his [facility] appointment at [address]. no complaints or needs at this time
--- NOTE | 2024-12-05 16:52 | PEERSUPPORT ---
Peer Support Note Patient Information Patient Information: DOS: 12/05/2024 ? Pt is withdrawn when discussing inpatient treatment, becoming frustrated as he reflects to every time he completes an inpatient he returns to drinking. ? Ps shifts focus to intentions and responsibility through his current MAT program through services offered. -Therapy- Pt reports good relationship with therapist. He feels safe to talk of any issues or topic. -UDS -Pt admits to lack of accountability to self and expectations of the program. -Support Groups/Peers- ? Pt stated he feels he needs to attend AA, have a sponsor for help with accountability. ? Ps and pt discussed relapse prevention plan with [facility] outpatient visits including AA meetings on alternate days. ? Ps provided AA 12-Steps print out for pt to read daily and follow through in actions, inlcluding local AA meetings, with goal of seeking a sponsor. ? Stressors post discharged: -Remembering to take medications- leading him to drink or self-medicate. -Isolated- due to anxiety that leads him to drink for relief quickly. -Lack of boundaries- with self- and others -Negative self-talk ? Safe coping skills- -Accountability- Daughter Kristen and son over the weekend -Mindful of choices that serve his sobriety and wellness -Attend Online AA meetings- accessible 15/01 -Positive-affirmations- self -Say NO for boundaries to self and others if it interferes with sobriety or health ? Plan of action: Refrain from using alcohol Take medications as prescribed? [facility] Appointment- 12/09 @2:30 Ps will follow up on 12/08/2024 ?
--- NOTE | 2024-12-08 07:59 | PC.NURSE ---
Urine culture report forwarded to hospitalist.
--- NOTE | 2024-12-09 11:34 | SW/DCPLANNER ---
Phoned patient x2. Patients number is full and cant accept messages. Susy Nunn
== END 2024-12-05 15:54 | disposition home or self-care (01) | DRG 897 ==
LOC: ER 17:10 → ICU 12-02 00:14
PROVIDERS: Physician Assistant; Student in an Organized Health Care Education/Training Program; Admitting Provider Internal Medicine Adolescent Medicine; Emergency Provider Student in an Organized Health Care Education/Training Program; PCP Family Medicine; Visit Provider Internal Medicine Adolescent Medicine
DX: F10.231 Alcohol dependence with withdrawal delirium (principal); F32.2 Major depressive disorder, single episode, severe without psychotic features; F11.20 Opioid dependence, uncomplicated; F43.10 Post-traumatic stress disorder, unspecified; K70.0 Alcoholic fatty liver; F41.1 Generalized anxiety disorder; D53.9 Nutritional anemia, unspecified; E83.42 Hypomagnesemia; K26.9 Duodenal ulcer, unspecified as acute or chronic, without hemorrhage or perforation; E87.6 Hypokalemia; J44.9 Chronic obstructive pulmonary disease, unspecified; K29.20 Alcoholic gastritis without bleeding; F17.210 Nicotine dependence, cigarettes, uncomplicated; K20.90 Esophagitis, unspecified without bleeding; E03.9 Hypothyroidism, unspecified; Y90.0 Blood alcohol level of less than 20 mg/100 ml; Z91.148 Patient's other noncompliance with medication regimen for other reason; Z91.81 History of falling; Z79.899 Other long term (current) drug therapy; Z88.1 Allergy status to other antibiotic agents; Z88.8 Allergy status to other drugs, medicaments and biological substances; Z79.890 Hormone replacement therapy
CPT/HCPCS: 36415; 70450; 71045; 72125; 72128; 72131; 72170; 74176; 74177; 80053; 80307; 80320; 81001; 82962; 82977; 83605; 83690; 83735; 83880; 84100; 84484; 85025; 85378; 85610; 85730; 87086; 87088; 87186; 93005; 93971; 94640; 97110; 97162; 97166; 97530; 97535; J0574; J2060; J2405; J3360; J3411; J7120; Q9967

== ENCOUNTER 2025-02-15 03:32 | Emergency (ER) | payer MEDICARE, MEDICAID, SELFPAY ==
[2025-02-15] VITALS (17 sets, daily range): BP systolic 112–141; BP diastolic 70–98; PULSE 32–85; RESP 14–18; TEMP 36.6–36.7; O2SAT 92–100; BMI 21.2
--- NOTE | 2025-02-15 03:40 | CT_ITS ---
PROCEDURE INFORMATION: Exam: CT Abdomen And Pelvis With Contrast Exam date and time: 02/15/2025 4:34 AM Age: 49 years old Clinical indication: Vomiting; Abdominal pain; Additional info: Recurrent vomiting, left flank pain TECHNIQUE: Imaging protocol: Computed tomography of the abdomen and pelvis with contrast. Radiation optimization: All CT scans at this facility use at least one of these dose optimization techniques: automated exposure control; mA and/or kV adjustment per patient size (includes targeted exams where dose is matched to clinical indication); or iterative reconstruction. Contrast material: ISOVUE; Contrast volume: 75 ml; Contrast route: IV; COMPARISON: CT ABDOMEN PELVIS WO CON 12/03/2024 12:46 PM FINDINGS: Lungs: Additional granuloma right middle lobe. Subtle ground-glass opacity Liver: Diffuse decreased CT attenuation throughout the liver. Gallbladder and biliary ducts: Normal. No calcified stones. No ductal dilation. Pancreas: Normal. No ductal dilation. Spleen: Normal. No splenomegaly. Adrenal glands: Normal. No mass. Kidneys and ureters: No free fluid extensive nonobstructing calyceal calculi without hydronephrosis kidneys Stomach and bowel: Interval density hemoclip at the descending duodenum was also present on the previous exam fluid-filled bowel with decompression of the distal colon. Fluid-filled bowel in small and large bowel segments Appendix: No evidence of appendicitis. Intraperitoneal space: Unremarkable. No free air. No significant fluid collection. Vasculature: Unremarkable. No abdominal aortic aneurysm. Lymph nodes: Unremarkable. No enlarged lymph nodes. Urinary bladder: Unremarkable as visualized. Reproductive: Unremarkable as visualized. Bones/joints: severe facet fusion and mid and upper spine Soft tissues: Unremarkable. Other findings: Calcified granuloma at the posterior IMPRESSION: 1. Findings most consistent with diarrheal illness 2. No bowel obstruction 3. No free fluid 4. Hepatic steatosis 5. Other incidental findings above.
--- NOTE | 2025-02-15 03:40 | XR_ITS ---
PROCEDURE INFORMATION: Exam: XR Chest Exam date and time: 02/15/2025 4:42 AM Age: 49 years old Clinical indication: Other: Recurrent emesis TECHNIQUE: Imaging protocol: Radiologic exam of the chest. Views: 1 view. COMPARISON: CT ABDOMEN PELVIS W CON 02/15/2025 4:34 AM FINDINGS: Lungs: Unremarkable. No consolidation. Pleural spaces: Unremarkable. No pleural effusion. No pneumothorax. Heart/Mediastinum: Unremarkable. No cardiomegaly. Bones/joints: Unremarkable. IMPRESSION: No acute findings.
--- NOTE | 2025-02-15 03:47 | HMH.EDGENADL ---
Discharge Plan Disposition Chief Complaint: Abdominal Pain Prescriptions Prescriptions: No Action multivitamin Tablet 1 tab PO DAILY Qty: 30 0RF olanzapine 5 mg tablet 5 mg PO HS buspirone 10 mg tablet 10 mg PO DAILY hydroxyzine HCl 25 mg tablet 25 mg PO TID haloperidol 2 mg tablet 2 mg PO BID prazosin 2 mg capsule 2 mg PO HS levothyroxine [Synthroid] 25 mcg tablet 25 mcg PO DAILYDM buprenorphine-naloxone 8-2 mg tablet, sublingual 2 tab sublingual DAILY 4 Days Qty: 8 0RF Rx Instructions: VERIFIED WITH PHARMACY sucralfate 1 gram Tablet 1 g PO ACHS 30 Days Qty: 120 0RF venlafaxine 37.5 mg Tablet 37.5 mg PO BID 30 Days Qty: 60 0RF Trelegy Ellipta 100-62.5-25 mcg Blister With Device 1 inh inhalation DAILY 30 Days Qty: 60 0RF thiamine HCl (vitamin B1) 100 mg tablet 100 mg PO DAILY Qty: 30 0RF pantoprazole 40 mg tablet,delayed release (DR/EC) 40 mg PO BID 30 Days Qty: 60 0RF misoprostol 200 mcg Tablet 200 mcg PO BID 30 Days Qty: 60 0RF folic acid 1 mg Tablet 1 mg PO DAILY 30 Days Qty: 30 0RF gabapentin 100 mg Capsule 200 mg PO BID 30 Days Qty: 120 0RF albuterol sulfate 90 mcg/actuation HFA aerosol inhaler 2 puff inhalation Q6HP PRN (Reason: shortness of breath or wheezing) Qty: 8.5 3RF Creon 36,000-114,000- 180,000 unit Capsule,Delayed Release(Dr/Ec) 2 cap PO AC 30 Days Qty: 180 0RF Referrals Follow up/Referrals: Provider,MD Leigh Ann [Primary Care Provider, Medical] - See instructions Instructions Patient Instructions: DI for Acute Abdominal Pain Print Language Print Language: Bulgarian Discharge ED Provider: Chelsea Ruiz General Adult HPI <Chelsea Ruiz MD - Last Filed: 02/15/25 07:22> General Chief complaint: Abdominal Pain Stated complaint: Left flank pain Time Seen by Provider: 02/15/25 03:40 History of Present Illness HPI narrative: 49-year-old male with history of alcohol abuse, emphysema, PTSD, duodenal ulcer, gastritis and esophagitis who reports taking daily Suboxone presents to the ER with complaints of left flank pain left lower quadrant abdominal pain and vomiting. Patient reports symptoms began 48 hours ago. He states they have progressively worsened. He demonstrates his left low flank and radiating into the left lower quadrant, he states occasionally the pain radiates into his testicles as well. He is also having some epigastric discomfort with recurrent nausea and vomiting. Reportedly nonbloody, nonbilious emesis. Patient denies diarrhea or constipation. He states he typically drinks alcohol daily but his last drink was approximately 10 to 12 hours ago and he feels that he is starting to get the shakes already. Patient does also complain that he has not urinated recently but does not have an urge to urinate either. Patient reports he is not able to tolerate anything by mouth at this point. Reportedly he was having chest pain 2 days ago but has not had any in the last 24 hours, he denies any headache or dizziness, no numbness, tingling, or weakness. No recent fevers or chills. No cough, congestion, or other associated symptoms. EMS transported the patient to our facility. They report they were unable to obtain IV access so no medications were administered during transportation. They do state patient had good blood pressure but was sinus bradycardia with rates in the 50s. Related Data Home Medications ?Medication ?Instructions ?Recorded ?Confirmed buspirone 10 mg tablet 10 mg PO DAILY 12/02/24 12/02/24 haloperidol 2 mg tablet 2 mg PO BID 12/02/24 12/02/24 hydroxyzine HCl 25 mg tablet 25 mg PO TID 12/02/24 12/02/24 levothyroxine 25 mcg tablet 25 mcg PO DAILYDM 12/02/24 12/02/24 (Synthroid) olanzapine 5 mg tablet 5 mg PO HS 12/02/24 12/02/24 prazosin 2 mg capsule 2 mg PO HS 12/02/24 12/02/24 Previous Rx's ?Medication ?Instructions ?Recorded multivitamin 1 tab PO DAILY #30 tabs 08/08/24 albuterol sulfate 90 mcg/actuation 2 puff inhalation Q6HP PRN 10/14/24 aerosol inhaler shortness of breath or wheezing #8.5 grams fluticasone fur. 100 mcg-umeclid 1 inh inhalation DAILY 30 days #60 10/14/24 62.5 mcg-vilant 25 mcg ea inhalat.powder (Trelegy Ellipta) folic acid 1 mg tablet 1 mg PO DAILY 30 days #30 tabs 10/14/24 gabapentin 100 mg capsule 200 mg (2 x 100 mg) PO BID 30 days 10/14/24 #120 caps bfflnu-wgsnfxnw-mglwuuy 2 cap PO AC 30 days #180 caps 10/14/24 36,000-114,000-180,000 unit capsule,delay rel (Creon) misoprostol 200 mcg tablet 200 mcg PO BID 30 days #60 tabs 10/14/24 pantoprazole 40 mg tablet,delayed 40 mg PO BID 30 days #60 tabs 10/14/24 release sucralfate 1 gram tablet 1 g PO ACHS 30 days #120 tabs 10/14/24 thiamine HCl (vitamin B1) 100 mg 100 mg PO DAILY #30 tabs 10/14/24 tablet venlafaxine 37.5 mg tablet 37.5 mg PO BID 30 days #60 tabs 10/14/24 buprenorphine 8 mg-naloxone 2 mg 2 tab sublingual DAILY 4 days #8 12/05/24 sublingual tablet tabs Allergies Allergy/AdvReac Type Severity Reaction Status Date / Time aspirin (ASPIRIN) Allergy Unknown Nose Bleed Verified 10/21/24 13:05 cephalexin (From Keflex) Allergy Gastrointestinal Verified 10/21/24 13:05 Upset piperacillin (From Zosyn) Allergy Hives Verified 10/21/24 13:05 tazobactam (From Zosyn) Allergy Hives Verified 10/21/24 13:05 PFSH <Chelsea Ruiz MD - Last Filed: 02/15/25 07:22> [facility] Disclaimer: The information contained in this section may have been updated after the patient was seen, as this information can be updated by other users. Medical History (Updated 12/04/24 @ 15:51 by Yohana Case APRN) Pulmonary emphysema Asthma Anemia Hiccups Insomnia disorder Vomiting Hypophosphatemia Hypomagnesemia Acute hypokalemia Abdominal pain Epigastric pain Screening for malignant neoplasm of colon Nausea Dyspepsia Abdominal pain Substance use disorder SVT (supraventricular tachycardia) Hypokalemia Alcohol abuse Shortness of breath Hematemesis Sepsis due to pneumonia Abdominal pain, acute Alcohol use disorder Gastrointestinal bleed Duodenal ulcer Necrotizing pneumonia Pneumonia Drug abuse and dependence Back pain Rib pain Shoulder pain Neck pain Acute UTI Back pain Ankle fracture Fracture of distal end of fibula Sinusitis Cellulitis Exposure to COVID-19 virus PTSD (post-traumatic stress disorder) Acute blood loss anemia Peptic ulcer disease with hemorrhage Chronic pain Anxiety Acute bronchitis Elbow pain, left Acute urinary tract infection Leukocytosis Acute appendicitis High risk medication use Tobacco abuse Asthma exacerbation Depression Anxiety Traumatic brain injury Surgical History History of foot surgery H/O lithotripsy History of appendectomy H/O right knee surgery H/O anterior cruciate ligament surgery Previous back surgery Family History Grandmother Cancer Diabetes Stroke Grandfather Cancer Mother Diabetes Hypertension Social History Smoking Status: Current some day smoker tobacco type: cigarettes packs per day: 1 alcohol intake: current alcohol intake frequency: a few times a week counseling provided: provider counseling substance use type: former substance user and prescription drug current occupational status: disabled Travel in the last 8 weeks?: None household members: significant other housing: house current occupational exposures/hazards: No caffeine: No Other Medical History Have you received the Flu Vaccine for this season: No Have you received the Pneumonia Vaccine: No <Chelsea Ruiz MD - Last Filed: 02/15/25 07:22> ROS Obtained: Yes Systems reviewed as appropriate & no additional complaints except as documented Per HPI Physical Exam <Chelsea Ruiz MD - Last Filed: 02/15/25 07:22> General General appearance: alert and in no apparent distress Head Head exam: atraumatic and normocephalic Eye Eye exam: Present PERRL and EOMI ENT ENT exam: Present mucous membranes dry Neck Neck exam: Present normal inspection and full ROM Chest Chest inspection: Present symmetric chest wall rise Respiratory Respiratory exam: Present normal lung sounds bilaterally and other (98% on RA); Absent respiratory distress, wheezes or stridor Cardiovascular Cardiovascular exam: Present regular rate and normal rhythm Abdominal Exam Abdominal exam: Present soft, tenderness (LLQ, epigastric) and guarding (voluntary); Absent distention, rebound or rigidity Extremities Exam Extremities exam: Present full ROM Back Exam Back exam: Present CVA tenderness (L) (Low left CVA area); Absent CVA tenderness (R) Neurological Exam Neurological exam: Present alert, oriented X3 and other (Patient is mildly tremulous but able to control them.); Absent motor sensory deficit Psychiatric Psychiatric exam: Present normal affect, normal mood and agitated (mildly, able to be redirected) Skin Skin exam: Present warm and dry Medical Decision Making <Chelsea Ruiz MD - Last Filed: 02/15/25 07:22> Medical Records Medical records reviewed: Yes I reviewed the patient's medical records. Screening: Per USPSTF and CDC recommendations, given the prevalence of disease in our region, it is our hospital?s policy to screen for HIV and viral Hepatitis for all patients aged 18 and over and those with ongoing risk factors. MR Comment: Most recent visit to our ER was in November of this year. Patient was found to have alcohol withdrawal, delirium tremens. Discharge summary from the hospitalist demonstrates patient had been in the ICU for delirium tremens. Has history of gastritis and peptic ulcer disease was treated with PPI while inpatient. Dejan Inquiry Pt receiving controlled substance: No Vital Signs: 02/15/25 03:36 02/15/25 03:38 02/15/25 03:41 Temperature 97.8 F Temperature Source Oral Pulse Rate 73 73 Pulse Rate [Right Radial] 85 Respiratory Rate 18 Blood Pressure 138/87 140/98 H Blood Pressure [Right Arm] 138/87 Blood Pressure Mean [Right Arm] 104 Blood Pressure Position [Right Arm] Supine 02 Sat by Pulse Oximetry 93 L 98 100 Oxygen Delivery Method Room Air 02/15/25 04:00 02/15/25 04:30 02/15/25 05:00 Temperature Temperature Source Pulse Rate 75 44 L 32 L Pulse Rate [Right Radial] Respiratory Rate Blood Pressure 122/80 112/73 125/70 Blood Pressure [Right Arm] Blood Pressure Mean [Right Arm] Blood Pressure Position [Right Arm] 02 Sat by Pulse Oximetry 92 L 98 92 L Oxygen Delivery Method 02/15/25 05:30 02/15/25 06:00 02/15/25 06:30 Temperature Temperature Source Pulse Rate 65 51 L 51 L Pulse Rate [Right Radial] Respiratory Rate Blood Pressure 115/80 113/71 115/73 Blood Pressure [Right Arm] Blood Pressure Mean [Right Arm] Blood Pressure Position [Right Arm] 02 Sat by Pulse Oximetry 98 98 97 Oxygen Delivery Method Room Air 02/15/25 07:00 02/15/25 07:30 02/15/25 08:01 Temperature Temperature Source Pulse Rate 48 L 46 L 50 L Pulse Rate [Right Radial] Respiratory Rate Blood Pressure 119/72 128/73 135/84 Blood Pressure [Right Arm] Blood Pressure Mean [Right Arm] Blood Pressure Position [Right Arm] 02 Sat by Pulse Oximetry 96 97 95 Oxygen Delivery Method Room Air Room Air 02/15/25 08:30 02/15/25 09:01 02/15/25 09:31 Temperature Temperature Source Pulse Rate 44 L 49 L 44 L Pulse Rate [Right Radial] Respiratory Rate Blood Pressure 141/86 H 129/79 122/76 Blood Pressure [Right Arm] Blood Pressure Mean [Right Arm] Blood Pressure Position [Right Arm] 02 Sat by Pulse Oximetry 96 95 96 Oxygen Delivery Method Room Air Lab Data Lab Results 02/15/25 03:52: WBC 8.9, RBC 4.54 L, Hgb 14.3, Hct 42.5, MCV 93.6, MCH 31.5 H, MCHC 33.6, RDW 15.9, Plt Count 182, MPV 11.0 H, Neut % (Auto) 65.4, Lymph % (Auto) 25.2, [place] % (Auto) 8.1, Eos % (Auto) 0.8, Baso % (Auto) 0.4, Neut # (Auto) 5.9, Lymph # (Auto) 2.3, [place] # (Auto) 0.7, Eos # (Auto) 0.1, Baso # (Auto) 0.0, PT 11.0, INR 0.99, Sodium 138, Potassium 2.8 L*, Chloride 102, Carbon Dioxide 25, Anion Gap 13.8, BUN 10, Creatinine 0.60 L, Estimated Creat Clear 132, Estimated GFR 143, Est GFR ( Amer) 173, Glucose 89, Lactate 2.3 H, Calcium 9.1, Magnesium 1.4 L, Total Bilirubin 1.3, AST 71 H, ALT 15, Alkaline Phosphatase 170 H, Troponin I < 0.01, Total Protein 7.6 D, Albumin 4.2, Globulin 3.4 H, Albumin/Globulin Ratio 1.2, Lipase 83, Plasma/Serum Alcohol < 10 02/15/25 03:58: Total Creatine Kinase 63 02/15/25 05:54: Urine Color Nolan, Urine Appearance Clear, Urine pH 6.5, Ur Specific [place] 1.015, Urine Protein 1+ A, Urine Glucose (UA) Negative, Urine Ketones 1+, Urine Blood 2+ A, Urine Nitrate Positive A, Urine Bilirubin 2+ A, Urine Urobilinogen 2.0, Ur Leukocyte Esterase Negative, Urine RBC Tntc, Urine WBC 3-5, Urine Bacteria 3+, Urine Mucus 4+ 02/15/25 03:52 02/15/25 03:52 Orders (Tests/Meds): ED MEDICATIONS Generic Name Dose Route Start Last Admin Trade Name Freq PRN Reason Stop Dose Admin Ceftriaxone Sodium 1 gm/ 50 mls @ 100 mls/hr 02/15/25 07:00 02/15/25 08:21 Sodium Chloride IV 02/25/25 06:59 Infused Q24H JOSE Infusion Sodium Chloride 10 ml 02/15/25 03:40 Sodium Chloride 0.9% 10ml Vial IV 03/17/25 03:39 NEEDED PRN dilute protonix Sodium Chloride 10 ml 02/15/25 04:39 02/15/25 04:40 Sodium Chloride 0.9% 10ml Syr (Rad Only) IV 03/17/25 04:38 10 ml NEEDED PRN Administration Maintain IV Site Discontinued Medications Generic Name Dose Route Start Last Admin Trade Name Freq PRN Reason Stop Dose Admin Hydromorphone HCl 0.5 mg 02/15/25 03:40 02/15/25 07:36 Hydromorphone 2mg/Ml Syringe IV 02/15/25 03:41 Not Given ONCE ONE Hydromorphone HCl 0.5 mg 02/15/25 03:40 02/15/25 07:37 Hydromorphone 2mg/Ml Syringe IM 02/15/25 03:41 Not Given ONCE ONE Hydromorphone HCl 0.5 mg 02/15/25 03:40 02/15/25 03:59 Hydromorphone 2mg/Ml Syringe IV 02/15/25 03:41 0.5 mg ONCE ONE Administration Lactated Ringer's 1,000 mls @ 999 mls/hr 02/15/25 03:40 02/15/25 06:15 Lactated Ringer's 1000 Ml Bag IV 02/15/25 04:40 Infused .Q1H1M ONE Infusion Magnesium Sulfate 2 gm in 50 mls @ 50 mls/hr 02/15/25 04:55 02/15/25 06:16 Magnesium Sulfate 2gm/50ml Premix IV 02/15/25 05:54 Infused ONCE ONE Infusion Lactated Ringer's 1,000 mls @ 999 mls/hr 02/15/25 06:06 02/15/25 08:08 Lactated Ringer's 1000 Ml Bag IV 02/15/25 07:06 Infused .Q1H1M ONE Infusion Doxycycline Hyclate 100 mg/ 250 mls @ 166.667 mls/hr 02/15/25 06:55 02/15/25 08:19 Sodium Chloride IV 02/15/25 06:56 166.67 mls/hr ONCE ONE Administration Iopamidol 75 ml 02/15/25 04:39 02/15/25 04:40 Iopamidol-370 (76%);100ml Bottle IV 02/15/25 04:40 75 ml ONCE ONE Administration Midazolam HCl 2 mg 02/15/25 03:40 02/15/25 07:37 Midazolam 2mg/2ml Vial IV 02/15/25 03:41 Not Given ONCE ONE Midazolam HCl 2 mg 02/15/25 03:40 02/15/25 07:37 Midazolam 2mg/2ml Vial IM 02/15/25 03:41 Not Given ONCE ONE Midazolam HCl 2 mg 02/15/25 03:40 02/15/25 04:00 Midazolam 2mg/2ml Vial IV 02/15/25 03:41 2 mg ONCE ONE Administration Midazolam HCl 2 mg 02/15/25 07:17 02/15/25 07:48 Midazolam 2mg/2ml Vial IV 02/15/25 07:18 2 mg ONCE ONE Administration Ondansetron HCl 4 mg 02/15/25 03:40 02/15/25 07:38 Ondansetron 4mg/2ml Vial IV 02/15/25 03:41 Not Given ONCE ONE Ondansetron HCl 4 mg 02/15/25 03:40 02/15/25 07:38 Ondansetron 4mg/2ml Vial IM 02/15/25 03:41 Not Given ONCE ONE Ondansetron HCl 4 mg 02/15/25 03:40 02/15/25 03:59 Ondansetron 4mg/2ml Vial IV 02/15/25 03:41 4 mg ONCE ONE Administration Pantoprazole Sodium 40 mg 02/15/25 03:40 02/15/25 04:15 Pantoprazole 40mg Vial IV 02/15/25 03:41 40 mg ONCE ONE Administration Potassium Chloride 60 meq 02/15/25 04:35 02/15/25 04:44 Potassium Chloride 20meq Tab PO 02/15/25 04:36 60 meq ONCE ONE Administration ORDERS Category Date Time Status CT abdomen pelvis w con Stat Cat Scan 02/15/25 03:40 Completed XR chest portable Stat Exams 02/15/25 03:40 Completed CK [Creatine Kinase] Stat Lab 02/15/25 03:58 Completed Complete Blood Count Auto Diff Stat Lab 02/15/25 03:52 Completed Comprehensive Metabolic Panel Stat Lab 02/15/25 03:52 Completed Ethanol [Ethyl Alcohol] Stat Lab 02/15/25 03:52 Completed Lactic Acid Stat Lab 02/15/25 03:52 Completed Lipase Stat Lab 02/15/25 03:52 Completed Magnesium Stat Lab 02/15/25 03:52 Completed Prothrombin Time INR Stat Lab 02/15/25 03:52 Completed Troponin I Stat Lab 02/15/25 03:52 Completed Urinalysis and Microscopic Stat Lab 02/15/25 05:54 Completed Urine Culture Stat Micro 02/15/25 05:54 Received Medical Decision Narrative: In summary, this 49-year-old male with comorbidities described in the HPI presents to the emergency department today with epigastric and left lower quadrant as well as left flank abdominal pain, nausea, vomiting, he suspects may be in early alcohol withdrawal and states he has not had urine output recently. On initial evaluation patient is hemodynamically stable, afebrile, he does have mild tremors but is able to control them, GCS 15, no neurologic deficits, tenderness to palpation of the left lower quadrant with voluntary guarding but no rebound, he also has tenderness in the epigastric region, no peritonitic findings, left low CVA tenderness to percussion, remainder of exam benign. Differential diagnosis includes but is not limited to alcohol withdrawal, pancreatitis, electrolyte abnormality, kidney stone, UTI, pyelonephritis, bowel obstruction, alcohol intoxication, considered delirium tremens as well but patient has had recent alcohol ingestion so I have lower suspicion for this, also considered viral syndrome, atypical presentation of ACS, among others. Based on these concerns, I ordered hematologic and serum labs, urine studies, urine studies, cardiac workup, CT abdomen pelvis with contrast. ECG personally interpreted demonstrates artifact that limits interpretation and makes it appear like possible atrial fibrillation but there does appear to be P waves before each QRS, sinus rhythm, bradycardic with rate 51, normal QTc, no STEMI. IV Dilaudid, Zofran, Versed, Protonix, fluids were administered. I had initially ordered IV medication but we had difficulty with starting an IV so I then changed my orders to IM but then access was obtained so they were administered IV. Labs personally reviewed demonstrate no leukocytosis, no anemia, platelets normal, PT/INR normal, CMP with hypokalemia, lactate elevated at 2.3 consistent with recurrent emesis, IV fluids are being administered. Patient has transaminitis with elevation of AST to 71, ALT is only 15, alk phos elevated at 170 but he does not particularly have right upper quadrant tenderness, lipase normal 83 reassuring against acute pancreatitis. Potassium repletion is being provided. XR personally interpreted demonstrates no acute intrathoracic abnormality, see radiology read for final interpretation. CT imaging personally interpreted demonstrates areas of fluid-filled loops, questionable bowel obstruction but no obvious dilation. See radiology read for final interpretation. Radiology read comments the findings are most consistent with a diarrheal illness, patient has hepatic steatosis. He also has nonobstructing calyceal calculi in the kidneys, patient also has severe facet fusion in the mid and upper spine. This this is not acute. Limited lung imaging demonstrates granuloma of the right middle lobe with subtle groundglass opacity. No clinical correlation Repeat ECG personally interpreted still demonstrates artifact but it is more clear that this patient has sinus bradycardia, rate 55, normal [place] and QTc, no STEMI. Urine sample was obviously red/orange but no clots. Urinalysis was sent and reviewed by me demonstrating nitrate positive hematuria. Patient reports he has not taken Azo or other medications that would cause nitrates to be positive. He reports he does not have burning when he pees but feels like it is difficult to start urinating, he denies pain with defecation so I do not believe he has prostatitis. He does still complain of testicular pain. Testicular exam demonstrates mild tenderness throughout the testicles including posteriorly, possible epididymitis. Patient reports he is not currently sexually active however with these findings and his report of flank pain I am going to treat for pyelonephritis and epididymitis with doxycycline and Rocephin. Patient is agreeable to this. He will require outpatient antibiotics after discharge. In the meantime, he expresses a desire to go through medically guided alcohol withdrawal so that he can go to rehab and get full treatment. He is tearful explaining he wants to stop drinking. He has already received Versed in the ER for his tremors. I spoke with the hospitalist about patient wanting to go through medically guided withdrawal, hospitalist indicates they recommend this patient go to [facility] for medical withdrawal followed by rehab if possible. Patient is currently receiving antibiotics but does state he is agreeable to this. After antibiotics are completed, oncoming physician is going to reach out to [facility] about transfer for alcohol detox and rehab. Patient handed off to Dr. Staples in stable condition. <Мария Staples MD - Last Filed: 02/15/25 10:04> Vital Signs: 02/15/25 03:36 02/15/25 03:38 02/15/25 03:41 Temperature 97.8 F Temperature Source Oral Pulse Rate 73 73 Pulse Rate [Right Radial] 85 Respiratory Rate 18 Blood Pressure 138/87 140/98 H Blood Pressure [Right Arm] 138/87 Blood Pressure Mean [Right Arm] 104 Blood Pressure Position [Right Arm] Supine 02 Sat by Pulse Oximetry 93 L 98 100 Oxygen Delivery Method Room Air 02/15/25 04:00 02/15/25 04:30 02/15/25 05:00 Temperature Temperature Source Pulse Rate 75 44 L 32 L Pulse Rate [Right Radial] Respiratory Rate Blood Pressure 122/80 112/73 125/70 Blood Pressure [Right Arm] Blood Pressure Mean [Right Arm] Blood Pressure Position [Right Arm] 02 Sat by Pulse Oximetry 92 L 98 92 L Oxygen Delivery Method 02/15/25 05:30 02/15/25 06:00 02/15/25 06:30 Temperature Temperature Source Pulse Rate 65 51 L 51 L Pulse Rate [Right Radial] Respiratory Rate Blood Pressure 115/80 113/71 115/73 Blood Pressure [Right Arm] Blood Pressure Mean [Right Arm] Blood Pressure Position [Right Arm] 02 Sat by Pulse Oximetry 98 98 97 Oxygen Delivery Method Room Air 02/15/25 07:00 02/15/25 07:30 02/15/25 08:01 Temperature Temperature Source Pulse Rate 48 L 46 L 50 L Pulse Rate [Right Radial] Respiratory Rate Blood Pressure 119/72 128/73 135/84 Blood Pressure [Right Arm] Blood Pressure Mean [Right Arm] Blood Pressure Position [Right Arm] 02 Sat by Pulse Oximetry 96 97 95 Oxygen Delivery Method Room Air Room Air 02/15/25 08:30 02/15/25 09:01 02/15/25 09:31 Temperature Temperature Source Pulse Rate 44 L 49 L 44 L Pulse Rate [Right Radial] Respiratory Rate Blood Pressure 141/86 H 129/79 122/76 Blood Pressure [Right Arm] Blood Pressure Mean [Right Arm] Blood Pressure Position [Right Arm] 02 Sat by Pulse Oximetry 96 95 96 Oxygen Delivery Method Room Air Lab Data Lab Results 02/15/25 03:52: WBC 8.9, RBC 4.54 L, Hgb 14.3, Hct 42.5, MCV 93.6, MCH 31.5 H, MCHC 33.6, RDW 15.9, Plt Count 182, MPV 11.0 H, Neut % (Auto) 65.4, Lymph % (Auto) 25.2, [place] % (Auto) 8.1, Eos % (Auto) 0.8, Baso % (Auto) 0.4, Neut # (Auto) 5.9, Lymph # (Auto) 2.3, [place] # (Auto) 0.7, Eos # (Auto) 0.1, Baso # (Auto) 0.0, PT 11.0, INR 0.99, Sodium 138, Potassium 2.8 L*, Chloride 102, Carbon Dioxide 25, Anion Gap 13.8, BUN 10, Creatinine 0.60 L, Estimated Creat Clear 132, Estimated GFR 143, Est GFR ( Amer) 173, Glucose 89, Lactate 2.3 H, Calcium 9.1, Magnesium 1.4 L, Total Bilirubin 1.3, AST 71 H, ALT 15, Alkaline Phosphatase 170 H, Troponin I < 0.01, Total Protein 7.6 D, Albumin 4.2, Globulin 3.4 H, Albumin/Globulin Ratio 1.2, Lipase 83, Plasma/Serum Alcohol < 10 02/15/25 03:58: Total Creatine Kinase 63 02/15/25 05:54: Urine Color Nolan, Urine Appearance Clear, Urine pH 6.5, Ur Specific [place] 1.015, Urine Protein 1+ A, Urine Glucose (UA) Negative, Urine Ketones 1+, Urine Blood 2+ A, Urine Nitrate Positive A, Urine Bilirubin 2+ A, Urine Urobilinogen 2.0, Ur Leukocyte Esterase Negative, Urine RBC Tntc, Urine WBC 3-5, Urine Bacteria 3+, Urine Mucus 4+ Orders (Tests/Meds): ED MEDICATIONS Generic Name Dose Route Start Last Admin Trade Name Simone PRN Reason Stop Dose Admin Ceftriaxone Sodium 1 gm/ 50 mls @ 100 mls/hr 02/15/25 07:00 02/15/25 08:21 Sodium Chloride IV 02/25/25 06:59 Infused Q24H JOSE Infusion Sodium Chloride 10 ml 02/15/25 03:40 Sodium Chloride 0.9% 10ml Vial IV 03/17/25 03:39 NEEDED PRN dilute protonix Sodium Chloride 10 ml 02/15/25 04:39 02/15/25 04:40 Sodium Chloride 0.9% 10ml Syr (Rad Only) IV 03/17/25 04:38 10 ml NEEDED PRN Administration Maintain IV Site Discontinued Medications Generic Name Dose Route Start Last Admin Trade Name Simone PRN Reason Stop Dose Admin Hydromorphone HCl 0.5 mg 02/15/25 03:40 02/15/25 07:36 Hydromorphone 2mg/Ml Syringe IV 02/15/25 03:41 Not Given ONCE ONE Hydromorphone HCl 0.5 mg 02/15/25 03:40 02/15/25 07:37 Hydromorphone 2mg/Ml Syringe IM 02/15/25 03:41 Not Given ONCE ONE Hydromorphone HCl 0.5 mg 02/15/25 03:40 02/15/25 03:59 Hydromorphone 2mg/Ml Syringe IV 02/15/25 03:41 0.5 mg ONCE ONE Administration Lactated Ringer's 1,000 mls @ 999 mls/hr 02/15/25 03:40 02/15/25 06:15 Lactated Ringer's 1000 Ml Bag IV 02/15/25 04:40 Infused .Q1H1M ONE Infusion Magnesium Sulfate 2 gm in 50 mls @ 50 mls/hr 02/15/25 04:55 02/15/25 06:16 Magnesium Sulfate 2gm/50ml Premix IV 02/15/25 05:54 Infused ONCE ONE Infusion Lactated Ringer's 1,000 mls @ 999 mls/hr 02/15/25 06:06 02/15/25 08:08 Lactated Ringer's 1000 Ml Bag IV 02/15/25 07:06 Infused .Q1H1M ONE Infusion Doxycycline Hyclate 100 mg/ 250 mls @ 166.667 mls/hr 02/15/25 06:55 02/15/25 08:19 Sodium Chloride IV 02/15/25 06:56 166.67 mls/hr ONCE ONE Administration Iopamidol 75 ml 02/15/25 04:39 02/15/25 04:40 Iopamidol-370 (76%);100ml Bottle IV 02/15/25 04:40 75 ml ONCE ONE Administration Midazolam HCl 2 mg 02/15/25 03:40 02/15/25 07:37 Midazolam 2mg/2ml Vial IV 02/15/25 03:41 Not Given ONCE ONE Midazolam HCl 2 mg 02/15/25 03:40 02/15/25 07:37 Midazolam 2mg/2ml Vial IM 02/15/25 03:41 Not Given ONCE ONE Midazolam HCl 2 mg 02/15/25 03:40 02/15/25 04:00 Midazolam 2mg/2ml Vial IV 02/15/25 03:41 2 mg ONCE ONE Administration Midazolam HCl 2 mg 02/15/25 07:17 02/15/25 07:48 Midazolam 2mg/2ml Vial IV 02/15/25 07:18 2 mg ONCE ONE Administration Ondansetron HCl 4 mg 02/15/25 03:40 02/15/25 07:38 Ondansetron 4mg/2ml Vial IV 02/15/25 03:41 Not Given ONCE ONE Ondansetron HCl 4 mg 02/15/25 03:40 02/15/25 07:38 Ondansetron 4mg/2ml Vial IM 02/15/25 03:41 Not Given ONCE ONE Ondansetron HCl 4 mg 02/15/25 03:40 02/15/25 03:59 Ondansetron 4mg/2ml Vial IV 02/15/25 03:41 4 mg ONCE ONE Administration Pantoprazole Sodium 40 mg 02/15/25 03:40 02/15/25 04:15 Pantoprazole 40mg Vial IV 02/15/25 03:41 40 mg ONCE ONE Administration Potassium Chloride 60 meq 02/15/25 04:35 02/15/25 04:44 Potassium Chloride 20meq Tab PO 02/15/25 04:36 60 meq ONCE ONE Administration ORDERS Category Date Time Status CT abdomen pelvis w con Stat Cat Scan 02/15/25 03:40 Completed XR chest portable Stat Exams 02/15/25 03:40 Completed CK [Creatine Kinase] Stat Lab 02/15/25 03:58 Completed Complete Blood Count Auto Diff Stat Lab 02/15/25 03:52 Completed Comprehensive Metabolic Panel Stat Lab 02/15/25 03:52 Completed Ethanol [Ethyl Alcohol] Stat Lab 02/15/25 03:52 Completed Lactic Acid Stat Lab 02/15/25 03:52 Completed Lipase Stat Lab 02/15/25 03:52 Completed Magnesium Stat Lab 02/15/25 03:52 Completed Prothrombin Time INR Stat Lab 02/15/25 03:52 Completed Troponin I Stat Lab 02/15/25 03:52 Completed Urinalysis and Microscopic Stat Lab 02/15/25 05:54 Completed Urine Culture Stat Micro 02/15/25 05:54 Received Medical Decision Narrative: In summary, this 49-year-old male with comorbidities described in the HPI presents to the emergency department today with epigastric and left lower quadrant as well as left flank abdominal pain, nausea, vomiting, he suspects may be in early alcohol withdrawal and states he has not had urine output recently. On initial evaluation patient is hemodynamically stable, afebrile, he does have mild tremors but is able to control them, GCS 15, no neurologic deficits, tenderness to palpation of the left lower quadrant with voluntary guarding but no rebound, he also has tenderness in the epigastric region, no peritonitic findings, left low CVA tenderness to percussion, remainder of exam benign. Differential diagnosis includes but is not limited to alcohol withdrawal, pancreatitis, electrolyte abnormality, kidney stone, UTI, pyelonephritis, bowel obstruction, alcohol intoxication, considered delirium tremens as well but patient has had recent alcohol ingestion so I have lower suspicion for this, also considered viral syndrome, atypical presentation of ACS, among others. Based on these concerns, I ordered hematologic and serum labs, urine studies, urine studies, cardiac workup, CT abdomen pelvis with contrast. ECG personally interpreted demonstrates artifact that limits interpretation and makes it appear like possible atrial fibrillation but there does appear to be P waves before each QRS, sinus rhythm, bradycardic with rate 51, normal QTc, no STEMI. IV Dilaudid, Zofran, Versed, Protonix, fluids were administered. I had initially ordered IV medication but we had difficulty with starting an IV so I then changed my orders to IM but then access was obtained so they were administered IV. Labs personally reviewed demonstrate no leukocytosis, no anemia, platelets normal, PT/INR normal, CMP with hypokalemia, lactate elevated at 2.3 consistent with recurrent emesis, IV fluids are being administered. Patient has transaminitis with elevation of AST to 71, ALT is only 15, alk phos elevated at 170 but he does not particularly have right upper quadrant tenderness, lipase normal 83 reassuring against acute pancreatitis. Potassium repletion is being provided. XR personally interpreted demonstrates no acute intrathoracic abnormality, see radiology read for final interpretation. CT imaging personally interpreted demonstrates areas of fluid-filled loops, questionable bowel obstruction but no obvious dilation. See radiology read for final interpretation. Radiology read comments the findings are most consistent with a diarrheal illness, patient has hepatic steatosis. He also has nonobstructing calyceal calculi in the kidneys, patient also has severe facet fusion in the mid and upper spine. This this is not acute. Limited lung imaging demonstrates granuloma of the right middle lobe with subtle groundglass opacity. No clinical correlation Repeat ECG personally interpreted still demonstrates artifact but it is more clear that this patient has sinus bradycardia, rate 55, normal [place] and QTc, no STEMI. Urine sample was obviously red/orange but no clots. Urinalysis was sent and reviewed by me demonstrating nitrate positive hematuria. Patient reports he has not taken Azo or other medications that would cause nitrates to be positive. He reports he does not have burning when he pees but feels like it is difficult to start urinating, he denies pain with defecation so I do not believe he has prostatitis. He does still complain of testicular pain. Testicular exam demonstrates mild tenderness throughout the testicles including posteriorly, possible epididymitis. Patient reports he is not currently sexually active however with these findings and his report of flank pain I am going to treat for pyelonephritis and epididymitis with doxycycline and Rocephin. Patient is agreeable to this. He will require outpatient antibiotics after discharge. In the meantime, he expresses a desire to go through medically guided alcohol withdrawal so that he can go to rehab and get full treatment. He is tearful explaining he wants to stop drinking. He has already received Versed in the ER for his tremors. I spoke with the hospitalist about patient wanting to go through medically guided withdrawal, hospitalist indicates they recommend this patient go to [facility] for medical withdrawal followed by rehab if possible. Patient is currently receiving antibiotics but does state he is agreeable to this. After antibiotics are completed, oncoming physician is going to reach out to [facility] about transfer for alcohol detox and rehab. Patient handed off to Dr. Staples in stable condition. I excepted care of patient at 8 AM. At this time patient was receiving IV antibiotics for pyelonephritis and epididymitis. Patient received an additional 2 mg of Versed and 5 mg of Valium for alcohol withdrawal. I had an interactive conversation with Dr. Ray for transfer for alcohol withdrawal in order to transition to rehabilitation at [facility]. Pt accepted for further care at [facility]. Critical Care <Chelsea Ruiz MD - Last Filed: 02/15/25 07:22> Critical Care Time Critical Care Time: No
--- OUTSIDE RECORDS SUMMARY | 2025-02-15 03:51 | XMS_ITS | Encounter Summary ---
Author Organization [employer] ([place], [place], [place], [place]) Address [address] [place] [address] Care Team Providers Care Medium Cycle Salesperson Name Role Phone Merlin Egan MD Primary Care Provider + [phone] Aj Valentine MD Primary Care Provider + [phone] Tim Rey MD Primary Care Provider + [phone] Encounter Details Date Type Department Care Team (Late st Contact Info) Description 03/14/2022 Transcribed Document [facility] [place] Family Medicine [address] [place] [address] ProviderRocael MD [address] [place] [address] Social History Tobacco Use Types Packs/Day Years Used Date Smoking Tobacco: Never Assessed Utilities Answer Date Recorded In the past 12 months, has t he electric, gas, oil, or water company threatened to shut off services in your home? No 10/26/2024 Interpersonal Safety Answer Date Record ed How often does anyone, moe edwards family and friends, physically hurt you? Never 10/26/2024 How often does anyone, veeu grace family and friends, insult or talk down to you? Never 10/26/2024 How often does anyone, moe edwards family and friends, threaten you with harm? Never 10/26/2024 How often does anyone, inclu ding family and friends, scream or curse at [...] Do you speak a language other than Spanish at [facility]? No 10/26/2024 Do you want help with school or training? For example, starting or completing job training or getting a high school diploma, GED or equivalent. No 10/26/2024 Physical Activity Answer Date Recorded Number of minutes of exercise per week 0 10/26/2024 Self Management Answer Date Recorded Because of a physical, [...] you used [place] legal drugs? Never 10/26/2024 Mental Health Answer Date Recorded Calculation of above two rows 2 Sex and Gender Information Value Date Recorded Sex Assigned at Not on file Legal Sex Male 11:25 AM CDT Gender Identity Not on file Sexual Orientation Not on file COVID-19 Exposure Response Date Recorded In the last 10 days, have yo u been in contact with someone who was confirmed or suspected to have Coronavirus/COVID-19? No / Unsure 04/18/2022 1:49 PM EDT documented as of this encounter Miscellaneous Notes * Cerner Conversion Note - Historical Provider, - 03/14/2022 2:00 AM CDT Nurse Informatics Educator Details Entered On: 03/14/2022 3:03 EDT Performed On: 03/14/2022 2:00 EDT by Bekah Ardon, RN Order Details Transport Mode Order Detail : Wheelchair Isolation Precautions Order Detail : Standard Precautions Order Detail : N/A IV Order Detail : 1 Oxygen Order Detail : 0 Nurse Collect Order Detail : 0 Central Line Order Detail : No Arterial Line : No Patient Needs Meds Crushed/Liquid : No Bekah Ardon, RN - 03/14/2022 3:03 EDT Electronically signed by Niels [facility] Conversion Sponge Packer Cerner at 10/10/2022 4:25 PM CDT documented in this encounter Plan of Treatment Not on file documented as of this encounter Visit Diagnoses Not on filedocumented in this encounter Care Teams Medium Cycle Salesperson Relationship Specialty Start Date End Date Merlin Egan MD [address] [facility] [place] [address] PCP - General Family Medicine 04/18/22 12/12/23 Aj Valentine MD [address] [place] [address] PCP - General Adolescent Medicine 12/13/23 11/02/24 Tim Rey MD [address] [place] [address] PCP - General Family Medicine 11/03/24 documented as of this encounter
--- OUTSIDE RECORDS SUMMARY | 2025-02-15 03:51 | XMS_ITS | Encounter Summary ---
Author Organization [employer] ([place], [place], [place], [place]) Address [address] [place] [address] Care Team Providers Care Spice Miller Hammer Mill Name Role Phone Merlin Egan MD Primary Care Provider + [phone] Aj Valentine MD Primary Care Provider + [phone] Tim Rey MD Primary Care Provider + [phone] Encounter Details Date Type Department Care Team (Late st Contact Info) Description 03/14/2022 Transcribed Document [facility] Family Medicine [address] [place] [address] ProviderRocael MD [address] [place] [address] Social History Tobacco Use Types [...] Do you speak a language other than Amharic at [facility]? No 10/26/2024 Do you want help [...] - 03/14/2022 18:58 EDT Electronically signed by Niels [facility] Conversion Mice Raiser Cerner at 10/15/2022 2:00 PM CDT documented in this encounter Plan of Treatment Not on file documented as of this encounter Visit Diagnoses Not on filedocumented in this encounter Care Teams Spice Miller Hammer Mill Relationship Specialty Start Date End Date Merlin Egan MD [address] [place], [place] [id number] PCP - General Family Medicine 04/18/22 12/12/23 Aj Valentine MD [address] [place] [address] PCP - General Adolescent Medicine 12/13/23 11/02/24 Tim Rey MD [address] [place] [address] PCP - General Family Medicine 11/03/24 documented as of this encounter
--- OUTSIDE RECORDS SUMMARY | 2025-02-15 03:51 | XMS_ITS | Encounter Summary ---
Author Organization [employer] ([place], [place], [place], [place]) Address [address] [place] [address] Care Team Providers Care Seat Scooper Machine Name Role Phone Merlin Egan MD Primary Care Provider + [phone] Aj Valentine MD Primary Care Provider + [phone] Tim Rey MD Primary Care Provider + [phone] Encounter Details Date Type Department Care Team (Late st Contact Info) Description 03/14/2022 Transcribed Document [facility] [place] [address] [place] [address] ProviderRocael MD [address] [place] [address] Social History Tobacco Use Types [...] Do you speak a language other than Persian at [facility]? No 10/26/2024 Do you want [...] - 03/14/2022 4:59 EDT Electronically signed by Anastasiya Bowser Conversion [employer] Machines Setter Cerner at 10/10/2022 4:07 PM CDT documented in this encounter Plan of Treatment Not on file documented as of this encounter Visit Diagnoses Not on filedocumented in this encounter Care Teams Seat Scooper Machine Relationship Specialty Start Date End Date Merlin Egan MD [address] [place] [address] [place] [address] PCP - General Family Medicine 04/18/22 12/12/23 Aj Valentine MD [address] [facility] [address] [place] [address] PCP - General Adolescent Medicine 12/13/23 11/02/24 Tim Rey MD [address] [facility] [address] [place] [address] PCP - General Family Medicine 11/03/24 documented as of this encounter
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
--- OUTSIDE RECORDS SUMMARY | 2025-02-15 03:51 | XMS_ITS | Encounter Summary ---
Author Organization [employer] ([place], [place], [place], [place]) Address [address] [place] [address] Care Team Providers Care Lapping Machine Tender Name Role Phone Merlin Egan MD Primary Care Provider + [phone] Aj Valentine MD Primary Care Provider + [phone] Tim Rey MD Primary Care Provider + [phone] Encounter Details Date Type Department Care Team (Late st Contact Info) Description 03/14/2022 Transcribed Document [facility] Family Medicine [address] [place] [address] ProviderRocael MD [address] [place] [address] Social History Tobacco Use Types [...] Do you speak a language other than Greek at [facility]? No 10/26/2024 Do you want [...] Conversion Note - Historical Provider, - 03/14/2022 5:41 PM CDT [facility] Main OR IntraOp Summary Primary Physician: AJ HALL MD-URO Finalized Date/Time: 03/14/22 18:05:23 Pt. Name: JU DAVE CHYNA /Sex: 1975 Male Med Rec #: [id number] Physician: STELLA WISEMAN MD Financial #: [id number] Pt. Type: I Room/Bed: [facility] Admit/Disch: 03/13/22 12:32:00 - [place] [facility] [place] Case Attendance Entry 1 Entry 2 Entry 3 Case Attendee AJ HALL, OTHER, ATTENDEE Annamarie Marcelo MD-URO [place] Drill Operator Role Performed Surgeon/Proceduralist, Scrub, First Scrub, Second First Time In 03/14/22 17:30:00 03/14/22 17:30:00 03/14/22 17:30:00 Time Out 03/14/22 17:55:00 03/14/22 17:55:00 03/14/22 17:55:00 Procedure Cystoscopy Stent Cystoscopy Stent Cystoscopy Stent Insertion Insertion Insertion Other Attendee Tessa Cowan Superficial Wound Closed By: Last Modified By: LILIA WHITE RN MARX, CONNIE, LILIA ALVAREZ RN 03/14/22 18:03:07 03/14/22 18:03:07 03/14/22 18:03:07 Entry 4 Entry 5 Entry 6 Case Attendee SERAFIN LOPES, Tyrone Romero MARX, CONNIE, RERE BALL POINTS INSPECTOR Role Performed SURGICAL SERVICES DIRECTOR/Nurse Taxation Consultant Cell Biologist Systems Analyst Engineer, First Time In 03/14/22 17:30:00 03/14/22 17:30:00 03/14/22 17:30:00 Time Out 03/14/22 17:55:00 03/14/22 17:55:00 03/14/22 17:55:00 Procedure Cystoscopy Stent Cystoscopy Stent Cystoscopy Stent Insertion Insertion Insertion Other Attendee Superficial Wound Closed By: Last Modified By: LILIA WHITE, LILIA ALVAREZ, LILIA ALVAREZ RN 03/14/22 18:03:07 03/14/22 18:03:07 03/14/22 18:03:07 [facility] IntraOp Case Attendance Audit 03/14/22 18:03:07 Director Of Outside Sales: TERRELL Modifier: SHARONXCO 1 <*> Procedure Cystoscopy Stent Insertion 2 [...] <*> Procedure Cystoscopy Stent Insertion 03/14/22 18:00:10 Director Of Outside Sales: TERRELL Modifier: MARXCO <+> 1 Time Out <+> [...] [facility] IntraOp Case Times Audit 03/14/22 17:57:27 Director Of Outside Sales: TERRLEL Modifier: MARXCO <+> 1 Out Room Time [...] OTHER, ATTENDEE (Scrub) Count Performed By LILIA WHITE RN (RN) Last Modified By: LILIA WHITE RN 03/14/22 18:01:04 [facility] IntraOp Departure from OR Entry 1 Integumentary Assessment Transfer/Handoff Transfer to PACU Phase I Handoff Method Bedside/Face to face Post-op Transport Ross/Alexis Via Patient Transport SERAFIN LOPES, Accompanied by CINDY JACOB CONNIE, RN Last Modified By: LILIA WHITE RN 03/14/22 18:02:23 [facility] IntraOp Departure from OR Audit 03/14/22 18:02:23 Director Of Outside Sales: TERRELL Modifier: TERRELL <+> 1 Post-op Transport Via <+> 1 [...] RN 03/14/22 18:01:22 [facility] IntraOp General Case Sas Administrator 1 Case Information OR OR 07 [facility] [...] Type Other Implant STENT URET CNTOUR Identification [id number] Description Implant Quantity 1 Implant Site left ureter Implant [id number] Identification Lot Number Implant [place] Identification Sci:Urology/Gynecology Paint Spray Tender Name: Implant [id number] Identification Catalog Number Implant [...] Medication/Irrigant lidocaine 2% urojet 10ml jelly - [id number] Route of topical Administration Dose Volume qs [...] Modified By: LILIA WHITE RN 03/14/22 18:00:50 [facility] IntraOp Time Out Audit 03/14/22 18:00:50 Director Of Outside Sales: SHARONXCO Modifier: MARXCO 1 <+> Beta Christine Administered 1 <+> Venous Thromboembolism Prophylaxis Required 1 <+> Antibiotic Prophylaxis Administered Or In Progress Within the Last 60 Minutes 1 <+> Surgeon 1 <+> Anesthesia Provider 1 <+> Nursing Assures 1 <+> Essential Imaging Labeled and Displayed 1 <*> Procedure to be Performed Cystoscopy Stent Insertion 1 <+> Team Verbally Confirms Information Case Comments <None> Finalized By: LILIA WHITE RN Document Signatures Signed By: LILIA WHITE RN 03/14/22 18:03 LILIA WHITE RN 03/14/22 18:05 Unfinalized History Date/Time Username Reason for Unfinalizing Freetext Reason for Unfinalizing 03/14/22 18:03 MARXCO Modify Pick List Electronically signed by [facility] Conversion [employer] Cerner at 10/10/2022 4:02 PM CDT documented in this encounter Plan of Treatment Not on file documented as of this encounter Visit Diagnoses Not on filedocumented in this encounter Care Teams Lapping Machine Tender Relationship Specialty Start Date End Date Merlin Egan MD [address] [place] [address] [place] [address] PCP - General Family Medicine 04/18/22 12/12/23 Aj Valentine MD [address] [place] [address] PCP - General Adolescent Medicine 12/13/23 11/02/24 Tim Rey MD [address] [place] [address] PCP - General Family Medicine 11/03/24 documented as of this encounter
--- OUTSIDE RECORDS SUMMARY | 2025-02-15 03:51 | XMS_ITS | Encounter Summary ---
Author Organization [employer] ([place], [place], [place], [place]) Address [address] [place] [address] Care Team Providers Care Filter Cloth Maker Name Role Phone Merlin Egan MD Primary Care Provider + [phone] Aj Valentine MD Primary Care Provider + [phone] Tim Rey MD Primary Care Provider + [phone] Encounter Details Date Type Department Care Team (Late st Contact Info) Description 03/14/2022 Transcribed Document [facility] [place] [address] [place] [address] ProviderRocael MD [address] [place] [address] Social History Tobacco Use Types [...] Do you speak a language other than Luxembourgish at [facility]? No 10/26/2024 Do you want [...] Conversion Note - Historical Provider, - 03/14/2022 3:50 PM CDT AMARJIT Main OR PreOp Summary Primary Physician: AJ HALL MD-URO Finalized Date/Time: 03/14/22 17:32:22 Pt. Name: JU DAVE CHYNA /Sex: 1975 Male Med Rec #: [id number] Physician: STELLA WISEMAN MD Financial #: [id number] Pt. Type: I Room/Bed: [facility]/1 Admit/Disch: 03/13/22 12:32:00 - [place] [facility] [place] Case Times Entry 1 In Preop 03/14/22 15:10:00 Ready for Holding n/a Room Patient Ready for 03/14/22 15:45:00 Surgery Patient Out of Preop 03/14/22 17:32:00 Patient Out of n/a Holding Room Last Modified By: Radha Pascal RN 03/14/22 17:32:22 Hussain PreOp Case Times Audit 03/14/22 17:32:22 [employer] Practitioner: TJ Modifier: TJ <+> 1 Patient Out of Preop Finalized By: Radha Pascal RN Document Signatures Signed By: Radha Pascal RN 03/14/22 17:32 Electronically signed by Niels [facility] Conversion Spreader Box Operator Cerner at 10/10/2022 4:00 PM CDT documented in this encounter Plan of Treatment Not on file documented as of this encounter Visit Diagnoses Not on filedocumented in this encounter Care Teams Filter Cloth Maker Relationship Specialty Start Date End Date Merlin Egan MD [address] [place] [address] [place] [address] PCP - General Family Medicine 04/18/22 12/12/23 Aj Valentine MD [address] [place] [address] PCP - General Adolescent Medicine 12/13/23 11/02/24 Tim Rey MD [address] [place] [address] PCP - General Family Medicine 11/03/24 documented as of this encounter
--- OUTSIDE RECORDS SUMMARY | 2025-02-15 03:51 | XMS_ITS | Encounter Summary ---
Author Organization [employer] ([place], [place], [place], [place]) Address [address] [place] [address] Care Team Providers Care Business Information Manager Name Role Phone Merlin Egan MD Primary Care Provider + [phone] Aj Valentine MD Primary Care Provider + [phone] Tim Rey MD Primary Care Provider + [phone] Encounter Details Date Type Department Care Team (Late st Contact Info) Description 03/14/2022 Transcribed Document [facility] Medicine [address] [place] [address] ProviderRocael MD [address] [place] [address] Social History Tobacco Use Types [...] Do you speak a language other than Hebrew at [facility]? No 10/26/2024 [...] Conversion Note - Historical Provider, - 03/14/2022 10:31 AM CDT Patient: JU DAVE Age: 46 [...] Levaquin, 750 mg= 150 mL, IV Piggyback, [id number] magnesium sulfate, 2 Gram= 50 mL, IV [...] Lymph # 2.44 K/uL 03/13/2022 14:10 EDT [place] % 7.4 % 03/14/2022 05:16 EDT [place] % 8.3 % 03/13/2022 14:10 EDT [place] # 0.40 K/uL 03/14/2022 05:16 EDT [place] # 0.46 K/uL 03/13/2022 14:10 EDT Eos [...] U Cath 03/13/2022 15:17 EDT Urine Color Dark-Coal 03/13/2022 15:17 EDT Urine Appearance Turbid (Abnormal) 03/13/2022 15:17 EDT Urine Specific [place] 1.028 03/13/2022 15:17 EDT Urine pH Dipstick [...] mg/dL 03/13/2022 14:11 EDT Electronically signed by Niels, [facility] Conversion Leave Coordinator Cerner at 10/10/2022 4:08 PM CDT documented in this encounter Plan of Treatment Not on file documented as of this encounter Visit Diagnoses Not on filedocumented in this encounter Care Teams Business Information Manager Relationship Specialty Start Date End Date Merlin Egan MD [address] [place] [address] PCP - General Family Medicine 04/18/22 12/12/23 Aj Valentine MD [address] [place] [address] PCP - General Adolescent Medicine 12/13/23 11/02/24 Tim Rey MD [address] [place] [address] PCP - General Family Medicine 11/03/24 documented as of this encounter
--- OUTSIDE RECORDS SUMMARY | 2025-02-15 03:51 | XMS_ITS | Encounter Summary ---
Author Organization [employer] ([place], [place], [place], [place]) Address [address] [place] [address] Care Team Providers Care Automobile Service Writer Name Role Phone Merlin Egan MD Primary Care Provider + [phone] Aj Valentine MD Primary Care Provider + [phone] Tim Rey MD Primary Care Provider + [phone] Encounter Details Date Type Department Care Team (Late st Contact Info) Description 03/14/2022 Transcribed Document [facility] [place] [address] [place] [address] ProviderRocael MD [address] [place] [address] Social History Tobacco Use Types [...] Do you speak a language other than French at [facility]? No 10/26/2024 Do you want help [...] MD-URO Finalized Date/Time: 03/14/22 18:21:26 Pt. Name: JU DAVE CHYNA /Sex: 1975 Male Med Rec #: [id number] Physician: STELLA WISEMAN MD Financial #: [id number] Pt. Type: I Room/Bed: [facility] Admit/Disch: 03/13/22 12:32:00 - Institution: [facility] [place] Main [place] PACU Case Times Entry 1 In PACU I 03/14/22 17:54:00 Ready for PACU 03/14/22 18:26:00 Discharge Discharge from PACU 03/14/22 18:26:00 I Last Modified By: GABRIELLE NASSAR 03/14/22 18:20:22 Finalized By: GABRIELLE NASSAR Document Signatures Signed By: GABRIELLE NASSAR 03/14/22 18:21 Electronically signed by Niels [facility] Conversion Earth Science Teacher Cerner at 10/10/2022 4:08 PM CDT documented in this encounter Plan of Treatment Not on file documented as of this encounter Visit Diagnoses Not on filedocumented in this encounter Care Teams Automobile Service Writer Relationship Specialty Start Date End Date Merlin Egan MD [address] [facility] [place] [address] PCP - General Family Medicine 04/18/22 12/12/23 Aj Valentine MD [address] [place] [address] PCP - General Adolescent Medicine 12/13/23 11/02/24 Tim Rey MD [address] [place] [address] PCP - General Family Medicine 11/03/24 documented as of this encounter
--- OUTSIDE RECORDS SUMMARY | 2025-02-15 03:51 | XMS_ITS | Clinical Summary ---
Author Organization [facility] Address [address] [place] [address] Care Team Providers Care Academic Affairs Vice President Name Role Phone Tim Rey MD Primary Care Provider [phone] Allergies Active Allergy Reactions Criticality Noted Date Comments Aspirin Unknown - High Severity High 04/18/2022 Piperacillin-Tazobac negro In Dex Other (See Comments) 04/18/2022 He feels like he's on fire Medications buprenorphine-n aloxone (SUBOXONE) 8-2 MG per SL tablet Place 2 tablets under the tongue Daily. Active levothyroxine (SYNTHROID, LEVOTHROID) 25 MCG tablet Take 2 tablets by mouth Every Morning. Active Pancrelipase, Cyx-Thzh-Kast, (CREON) 17520-077491 units capsule delayed-release particles capsule Take 1 capsule by mouth 3 (Three) Times a Day With Meals. Active pantoprazole (PROTONIX) 40 MG EC tablet Take 1 tablet by mouth 2 (Two) Times a Day. Active venlafaxine (EFFEXOR) 37.5 MG tablet Take 1 tablet by mouth 2 (Two) Times a Day. Active miSOPROStol (CYTOTEC) 200 MCG tablet Take 1 tablet by mouth 2 (Two) Times a Day. Active gabapentin (NEURONTIN) 100 MG capsule Take 2 capsules by mouth 2 (Two) Times a Day. Active fludrocortisone 0.1 MG tablet Take 2 tablets by mouth Daily. 60 tablet 09/01/2024 1:20 PM EDT 09/01/2024 Active folic acid (FOLVITE) 1 MG tablet Take 1 tablet by mouth Daily. 30 tablet 09/01/2024 1:20 PM EDT 09/02/2024 Active hydrOXYzine (ATARAX) 10 MG tablet Take 1 tablet by mouth 3 (Three) Times a Day As Needed for Anxiety. 15 tablet 09/01/2024 1:20 PM EDT 09/01/2024 Active multivitamin with minerals tablet tablet Take 1 tablet by mouth Daily. 30 each 09/01/2024 1:20 PM EDT 09/02/2024 Active nicotine (NICODERM CQ) 21 MG/24HR patch Place 1 patch on the skin as directed by provider Daily. 28 each 09/02/2024 Active midodrine (PROAMATINE) 10 MG tablet Take 1 tablet by mouth 3 (Three) Times a Day Before Meals. 90 tablet 09/01/2024 1:20 PM EDT 09/01/2024 Active Active Problems Problem Noted Date Diagnosed Date Dysphagia 08/23/2024 Moderate protein-calorie malnutrition 08/18/2024 Hematemesis 08/15/2024 Alcohol withdrawal 08/15/2024 Social History Tobacco Use Types Packs/Day Years Used Date Smoking Tobacco: Every Day Cigarettes 1 20 Smokeless Tobacco: Current Tobacco Cessation:Ready to Q uit: Not Asked; Counseling Given: Not Answered [facility] [employer] Answer Date Recorded In the past 12 months has [employer], [employer], oil, or water [employer] threatened to shut off services in your home? No 08/19/2024 AUDIT-C Answer Date Recorded Q1: How often do you have a drink containing alcohol? 4 or more times a week 08/15/2024 Q2: How many drinks containi ng alcohol do you have on a typical day when you are drinking? 10 or more Q3: How often do you have si x or more drinks on one occasion? Daily or almost daily 08/15/2024 Exercise Vital Sign Answer Date Recorde d On average, how many days pe r week do you engage in moderate to strenuous exercise (like a brisk walk)? 5 days 08/19/2024 On average, how many minutes do you engage in exercise at this level? 10 min 08/19/2024 Abuse Screen Answer Date Recorded Feels Unsafe at Home or Work/School no 08/15/2024 Feels Threatened by Someone no 07/27 Does Anyone Try to Keep You From Having Contact with Others or Doing Things Outside Your Home? no 08/15/2024 Physical Signs of Abuse Present no 08/15/2024 Housing Stability Answer Date Recorded Current Living Arrangements other (see comments) 08/19/2024 Potentially Unsafe Housing Conditions none 08/19/2024 Family and Community Support Answer William e Recorded If for any reason you need h elp with day-to-day activities such as bathing, preparing meals, shopping, managing finances, etc., do you get the help you need? I get all the help I need 08/19/2024 Lonely or Isolated Not on file 08/19/2024 Disabilities Answer Date Recorded Difficulty Concentrating, Remembering or Making Decisions yes 08/15/2024 Difficulty Managing Errands Independently no 08/15/2024 Education Answer Date Recorded Help with school or training? Not on file Preferred Language Sierra Leonean 08/19/2024 Sex and Gender Information Value Date Recorded Sex Assigned at Not on file Legal Sex Male 12:25 PM EDT Gender Identity Not on file Sexual Orientation Not on file Last Filed Vital Signs Vital Sign Reading Time Taken Comments Blood Pressure 118/75 09/01/2024 12:09 PM EDT Pulse 52 09/01/2024 12:13 PM EDT Temperature 36.7 C (98 F) 09/01/2024 9:07 AM EDT Respiratory Rate 16 09/01/2024 9:07 AM EDT Oxygen Saturation 94% 09/01/2024 5:42 AM EDT Inhaled Oxygen Concentration - - Weight 62.1 kg (137 lb) 09/01/2024 5:42 AM EDT Height 172.7 cm (5' 7.99 ) 08/28/2024 2:57 PM ES T Body Mass Index 20.84 08/28/2024 2:57 PM EST Plan of Treatment Health Maintenance Due Date Last Done Comments Pneumococcal Vaccine 50+ (1 of 2 - PCV) 1993 COLOGUARD 10/21/2019 COLON CANCER SCREENING 5 YEAR SIGMOIDOSCOPY 10/21/2019 COLONOSCOPY 10/21/2019 COLORECTAL CANCER SCREENING 10/21/2019 CT COLONOGRAPHY 10/21/2019 FECAL OCCULT BLOOD TEST 10/21/2019 FIT Testing (1 year) 10/21/2019 COVID-19 Vaccine (2 - season) 2024 ANNUAL WELLNESS VISIT 08/20/2024 HEPATITIS C SCREENING 08/20/2024 LUNG CANCER SCREENING 2024 ZOSTER VACCINE (1 of 2) 2024 INFLUENZA VACCINE 03/25/2025 TDAP/TD VACCINES (2 - Td or Tdap) 02/07/2034 024 Insurance MEDICARE ADVANTAGE HMO Advance Directives * CPR (Attempt to Resuscitate) (Latest Code Status on File) Date Activated Date Inactivated Comments 08/15/2024 6:36 PM 09/01/2024 4:42 PM Question Answer Comments Code Status (Patient has no pulse and is not breathing): CPR (Attempt to Resuscitate) Medical Interventions (Patie nt has pulse or is breathing): Full Support Level Of Support Discussed With: Patient Care Teams Academic Affairs Vice President Relationship Specialty Start Date End Date Tim Rey MD [address] [place] [address] PCP - General Family Medicine 08/15/24
--- OUTSIDE RECORDS SUMMARY | 2025-02-15 03:51 | XMS_ITS | Encounter Summary ---
Author Organization [employer] ([place], [place], [place], [place]) Address [address] [place] [address] Care Team Providers Care Glaze Supervisor Name Role Phone Merlin Egan MD Primary Care Provider + [phone] Aj Valentine MD Primary Care Provider + [phone] Tim Rey MD Primary Care Provider + [phone] Encounter Details Date Type Department Care Team (Late st Contact Info) Description 03/14/2022 Transcribed Document [facility] [place] [address] [place] [address] ProviderRocael MD [address] [place] [address] Social History Tobacco Use Types [...] Do you speak a language other than Slovak at [facility]? No 10/26/2024 Do you want help [...] Conversion Note - Historical Provider, - 03/14/2022 5:53 PM CDT Patient: JU DAVE Age: 46 Years Sex: Male : 1975 *Operation 1. Cystoscopy with left ureteral stent placement 2. Fluoroscopy, supervision and interpretation Indication for Surgery 46-year-old male with a history of urolithiasis. He underwent right ESWL around 5 years ago. He was transferred from [facility] with a 9 mm left UPJ [...] patient and procedure and side. A 22 Stateless cystoscope was placed per urethra into the bladder. Inspection revealed a normal urethra, small prostate, and normal bladder. A 0.035 hydrophilic guidewire was inserted into the left ureter and advanced up to the level of the kidney under fluoroscopy guidance. There was mild resistance in the proximal ureter. A 6 Stateless by 24 cm double-J indwelling ureteral stent [...] outpatient. Drains/Packs Used Left ureteral stent 6 Stateless by 24 cm, strings removed Anesthesia General *Estimated Blood Loss None *Findings Normal urethra, prostate, and bladder. There was proper placement of the left stent. *Specimen(s) None Complications None Date of Service 03/14/2022 documented in this encounter Plan of Treatment Not on file documented as of this encounter Visit Diagnoses Not on filedocumented in this encounter Care Teams Glaze Supervisor Relationship Specialty Start Date End Date Merlin Egan MD [address] [place] [address] [place] [address] PCP - General Family Medicine 04/18/22 12/12/23 Aj Valentine MD [address] [place] [address] PCP - General Adolescent Medicine 12/13/23 11/02/24 Tim Rey MD [address] [place] [address] PCP - General Family Medicine 11/03/24 documented as of this encounter
--- OUTSIDE RECORDS SUMMARY | 2025-02-15 03:51 | XMS_ITS | Encounter Summary ---
Author Organization [employer] ([place], [place], [place], [place]) Address [address] [place] [address] Care Team Providers Care Shredder Picker Name Role Phone Merlin Egan MD Primary Care Provider + [phone] Aj Valentine MD Primary Care Provider + [phone] Tim Rey MD Primary Care Provider + [phone] Encounter Details Date Type Department Care Team (Late st Contact Info) Description 03/14/2022 Transcribed Document [facility] [place] [address] [place] [address] ProviderRocael MD [address] [place] [address] Social History Tobacco Use Types [...] Do you speak a language other than Urdu at [facility]? No 10/26/2024 Do you want help with [...] Conversion Note - Historical Provider, - 03/14/2022 4:43 PM CDT On Going Discharge Planning Entered On: 03/14/2022 16:43 EDT Performed On: 03/14/2022 16:43 EDT by Sil Pierre RN Care Management Progress Note Discharge Arrangements : Patient Post-Acute Information Patient Name: JU DAVE Gender: Male : [birth year] Age: 46 [...] Sent to Post Acute Providers : No [facility] Quality Web Info Shared w Pt/Fam : [...] on filedocumented in this encounter Care Teams Shredder Picker Relationship Specialty Start Date End Date Merlin Egan MD [address] [place], [place] [address] PCP - General Family Medicine 04/18/22 12/12/23 Aj Valentine MD [address] [facility] [address] [place] [address] PCP - General Adolescent Medicine 12/13/23 11/02/24 Tim Rey MD [address] [facility] [address] [place] [address] PCP - General Family Medicine 11/03/24 documented as of this encounter
--- OUTSIDE RECORDS SUMMARY | 2025-02-15 03:52 | XMS_ITS | Encounter Summary ---
Author Organization [employer] ([place], [place], [place], [place]) Address [address] [place] [address] Care Team Providers Care Rental Car Deliverer Name Role Phone Merlin Egan MD Primary Care Provider + [phone] Aj Valentine MD Primary Care Provider + [phone] Tim Rey MD Primary Care Provider + [phone] Encounter Details Date Type Department Care Team (Late st Contact Info) Description 03/13/2022 Transcribed Document [facility] [place] [address] [place] [address] ProviderRocael MD [address] [place] [address] Social History Tobacco Use Types [...] Do you speak a language other than Arabic at [facility]? No 10/26/2024 Do you want [...] 11:24 EDT Pain Scale Intensity : 0 Landne Wilson RN-PATIENT CARE BEDSIDE NON-EXEMPT - 03/15/2022 11:24 EDT Image 4 - Images currently included in the form version of this document have not been included in the text rendition version of the form. Electronically signed by Anastasiya Bowser Conversion Computer Operations Specialist Cerner at 10/15/2022 2:00 PM CDT documented in this encounter Plan of Treatment Not on file documented as of this encounter Visit Diagnoses Not on filedocumented in this encounter Care Teams Rental Car Deliverer Relationship Specialty Start Date End Date Merlin Egan MD [address] [place], [place] [address], [place] [address] PCP - General Family Medicine 04/18/22 12/12/23 Aj Valentine MD [address] [place] [address] PCP - General Adolescent Medicine 12/13/23 11/02/24 Tim Rey MD [address] [place] [address] PCP - General Family Medicine 11/03/24 documented as of this encounter
--- OUTSIDE RECORDS SUMMARY | 2025-02-15 03:52 | XMS_ITS | Encounter Summary ---
Author Organization [employer] ([place], [place], [place], [place]) Address [address] [place] [address] Care Team Providers Care Hr Generalist Name Role Phone Merlin Egan MD Primary Care Provider + [phone] Aj Valentine MD Primary Care Provider + [phone] Tim Rey MD Primary Care Provider + [phone] Encounter Details Date Type Department Care Team (Late st Contact Info) Description 03/13/2022 Transcribed Document [facility] [place] [address] [place] [address] ProviderRocael MD [address] [place] [address] Social History Tobacco Use Types [...] Do you speak a language other than Swedish at [facility]? No 10/26/2024 Do you want help with [...] Cerner Conversion Note - Historical Provider, - 03/13/2022 1:01 PM CDT Admission History, Adult Entered On: 03/13/2022 13:15 EDT Performed On: 03/13/2022 13:01 EDT by Landen Wilson RN-PATIENT CARE [facility] NON-EXEMPT Advance Directive Patient has Advance Directive *Q : No, patient refuses Advance Directive information Landen Wilson RN-PATIENT CARE [facility]IDE NON-EXEMPT - 03/13/2022 13:01 EDT Anesthesia/Transfusion History Family History of Anesthesia Reaction : Prior transfusion without reaction Transfusion History : Prior anesthesia without reaction Family History of Anesthesia Reaction : None Landen Wilson RN-PATIENT CARE BEDSIDE NON-EXEMPT - 03/13/2022 13:01 EDT Functional Assessment Living Situation : Home Patient Lives With : Significant other(s) Current Home Treatments : None Landen Wilson RN-PATIENT CARE BEDSIDE NON-EXEMPT - 03/13/2022 13:01 EDT General Info Support Person/Patient Material Combiner : Yes Support Person/Pt Rep Name : Linda [phone] Want Family/Rep/Phys Notified of Admit : No Emergency Contact #1 : Hazel Bellamy Emergency Contact #1 Emergency Contact #1 Relationship : mom Emergency Contact #2 : none Emergency Contact #2 Phone Number : none Emergency Contact #2 Relationship : none Primary Language : Swedish Preferred Communication Mode : Verbal Communication Barrier : None Power Brake Operator Needed : No Landen Wilson RN-PATIENT CARE BEDSIDE [...] Level : 46 or > High Risk [place] Fall Interventions : Adequate lighting, Assistive devices [...] (Last Updated: 02/07/2016 18:32:11 EDT by Dyan Huston, RERE) Substance Abuse: Drug Use Hx: No. Use in Last 12 Months: No. (Last Updated: 02/07/2016 18:32:15 EDT by Dyan Huston RN) Height and Weight, Clinical Dosing Height Source : Chart Height Entry Format : [place] Height, Feet : 5 ft(Converted to: 152 [...] m2 Body Mass Index : 22 kg/m2 [place] Body Weight : 67 kg Landen Wilson RN-PATIENT CARE [facility] NON-EXEMPT - 03/13/2022 13:01 EDT Infectious Disease History Does patient have symptoms of COVID-19? : No Tested for COVID19 in the past 14 days : Yes, Patient stated results Negative Does the Patient state known exposure to a COVID-19 positive case in the last 14 days? : No Patient Vaccinated for COVID-19 : Fully vaccinated Landen Wilson RN-PATIENT CARE [facility] NON-EXEMPT - 03/13/2022 13:01 EDT Infectious Disease [...] day) : NO Landen Wilson RN-PATIENT CARE [facility] NON-EXEMPT - 03/13/2022 13:01 EDT Physical contact outside [place] in the last 30 days : No Hospitalized in Foreign Country : No Infectious Disease History : None, Chicken pox/Shingles, Influenza INF Disease TB Screening Calc : 0 INF Disease Recent Travel Calc : 0 Landen Wilson RN-PATIENT CARE [facility] NON-EXEMPT - 03/13/2022 13:01 EDT Tetanus Immunization Status Previous Tetanus Immunizations : No qualifying data available. Landen Wilson RN-PATIENT CARE [facility] NON-EXEMPT - 03/13/2022 13:01 EDT Influenza Vaccine [...] not at risk Landen Wilson RN-PATIENT CARE [facility] NON-EXEMPT - 03/13/2022 13:01 EDT [place] Suicide Severity Rating Scale (C-SSRS) CSSRS Past Month Wish to be : No CSSRS Past Month Suicidal Thoughts : No CSSRS Lifetime Suicide Behavior : No Suicide Severity Rating Score : 0 Suicide Severity Rating : No Additional Care Required at this time Landen Wilson RN-PATIENT CARE [facility] NON-EXEMPT - 03/13/2022 13:01 EDT Psychosocial History Do You Have a History of the Following? : Anxiety, Depression, Post Traumatic Stress Disorder Currently in Unsafe Situation : No Landen Wilson RN-PATIENT CARE [facility] NON-EXEMPT - 03/13/2022 13:01 EDT Sleep Apnea [...] Score : 2 Landen Wilson RN-PATIENT CARE [facility] NON-EXEMPT - 03/13/2022 13:01 EDT Valuables and Belongings Valuables and Belongings : Clothing, Personal items Clothing : Common streetwear Clothing Disposition : Bedside Personal Items : Cell phone Personal Items Disposition : With patient Landen Wilson RN-PATIENT CARE [facility] NON-EXEMPT - 03/13/2022 13:01 EDT Electronically signed by Anastasiya Bowser Conversion [employer] Academic Coach Cerner at 10/10/2022 4:05 PM CDT documented in this encounter Plan of Treatment Not on file documented as of this encounter Visit Diagnoses Not on filedocumented in this encounter Care Teams Hr Generalist Relationship Specialty Start Date End Date Merlin Egan MD [address] [place] [address] [place] [address] PCP - General Family Medicine 04/18/22 12/12/23 Aj Valentine MD [address] [facility] [address] [place] [address] PCP - General Adolescent Medicine 12/13/23 11/02/24 Tim Rey MD [address] [facility] [address] [place] [address] PCP - General Family Medicine 11/03/24 documented as of this encounter
--- OUTSIDE RECORDS SUMMARY | 2025-02-15 03:52 | XMS_ITS | Clinical Summary ---
Author Organization Healthcare Address [facility] [place] [id number] Care Team Providers Care Manager Vehicle Name Role Phone Julius Anderson Primary Care Provider [phone] Immunizations Immunization Administration Dates Next Due Hep [...] Date Last Done Comments [facility]-Depression Screening 1975 [facility]-/Child/Adol SDOH Screenings 1975 [facility]- SDOH Screenings 1992 [facility]-Adult SDOH Screenings 1992 [facility]-DTaP,Tdap,and Td Vaccine s (1 - Tdap) 1993 [facility]-Hepatitis B Vaccines (1 of 3 - 19+ 3-dose series) 1993 CT Colonography 10/21/2019 Colonoscopy 10/21/2019 FIT-DNA 10/21/2019 FIT 10/21/2019 FOBT 10/21/2019 Sigmoidoscopy 10/21/2019 [facility]-Colorectal Cancer Screening 10/21/2019 [id number] Vaccine (1 - 20 24-25 season) 2024 [facility]-Pneumococcal Vaccine: 50 + Years (1 of 1 - PCV) 2024 [facility]-Zoster Vaccines (1 of 2) 2024 [facility]-Influenza Vaccine (#1) 2025 [facility]-Hepatitis A Vaccines Aged Out 08/01/2017 [...] age to complete this topic Care Teams Manager Vehicle Relationship Specialty Start [place] [address] PCP - General 11/05/20
--- OUTSIDE RECORDS SUMMARY | 2025-02-15 03:52 | XMS_ITS | Encounter Summary ---
Author Organization [employer] ([place], [place], [place], [place]) Address [address] [place] [address] Care Team Providers Care Pharmacy Coordinator Name Role Phone Merlin Egan MD Primary Care Provider + [phone] Aj Valentine MD Primary Care Provider + [phone] Tim Rey MD Primary Care Provider + [phone] Encounter Details Date Type Department Care Team (Late st Contact Info) Description 03/15/2022 Transcribed Document [facility] [place] [address] [place] [address] ProviderRocael MD [address] [place] [address] Social History Tobacco Use Types [...] Do you speak a language other than Kyrgyz at [facility]? No [...] Historical ProviderMD - 03/15/2022 11:58 AM CDT [address] [id number] JU DAVE :1975 Visit Time:03/13/2022 Your Visit [...] When Within 1 to 2 weeks Where: [facility] [place] [address]- Follow Up with SKINNYY, UNKNOWN When Within 2 to 3 days Medications What How Much When Instructions Next Dose folic acid (folic acid 1 mg oral tablet) 1 Tablet(s) Oral Every Day Pickup at [facility] 03/16 9am hydroCHLOROthiazide (hydroCHLOROthiazide 25 mg oral tablet) 1 Tablet(s) Oral Every Day Pickup at [facility] 03/16 9am levoFLOXacin (Levaquin 750 mg oral tablet) 1 Tablet(s) Oral Interval Every 24 Hours Duration: 5 Day(s) Pickup at [facility] 03/16 3PM ondansetron (Zofran 4 mg oral tablet) 1 Tablet(s) Oral Every 8 Hours as needed for Nausea/Vomiting Duration: 3 Day(s) Pickup at [facility] as needed phenazopyridine (phenazopyridine 95 mg oral tablet) 1 Tablet(s) Oral Three Times A Day as needed for Pain Duration: 2 Day(s) Pickup at [facility] NEEDED buprenorphine-naloxone (Suboxone 8 mg-2 mg sublingual [...] Oral Every Day 03/16 9pm Pharmacy Information [facility]: [address] [address] [place] [phone] Take your medications faithfully. Do NOT skip [...] These discussions are confidential. ??? The National Hughes on Alcoholism and Drug Dependence (NCADD). This group has information about treatment centers and programs for people who have an addiction and for family members. ? Call: 6-102-ZRY-CALL ( ). ? Visit the website: https://www.ncadd.org/ ??? The Substance Abuse and Mental Health Services Administration (SAMA). This organization will help you find publicly funded treatment centers, help hotlines, and counseling services near you. ? Call: 4-350-520-HELP ( ). ? Visit the website: www.findtreatment.[facility].gov ??? The National Problem Gambling Helpline. This is a 24-hour confidential helpline for gambling addiction. ? Call: ? Visit the website: https://www.[facility].org/ In countries outside of the [place] and [...] provider. Document Revised: 06/09/2021 Document Reviewed: 07/10/2018 [employer] Patient Education ?? 2021 [employer]. Kidney Stones Kidney stones are rock-like masses [...] these instructions at home: Medicines ??? Take kfuc-mag-uotxeek and prescription medicines only as told by [...] Foundation (NKF): www.kidney.org ??? Urology Care Foundation (F): www.urologyhealth.org Contact a doctor if: ??? You [...] provider. Document Revised: 10/24/2019 Document Reviewed: 10/28/2019 [employer] Patient Education ?? 2021 [employer]. phenazopyridine (fen AY sonali PIR i shelby) [...] or ?? a genetic enzyme deficiency called ruvchek-4-khykmslcu dehydrogenase (G6PD) deficiency. FDA category B. Phenazopyridine [...] may report side effects to FDA at 8-499-YFG-8458. What other drugs will affect phenazopyridine? Other drugs may interact with phenazopyridine, including prescription and byfq-oxe-uyyyxha medicines, vitamins, and herbal products. Tell each [...] to ensure that the information provided by [employer]. ('[employer]') is accurate, up-to-date, and complete, but no guarantee is made to that effect. Drug information contained herein may be time sensitive. [employer] information has been compiled for use by healthcare practitioners and consumers in the [place] and therefore [employer] does not warrant that uses outside of the [place] are appropriate, unless specifically indicated otherwise. [employer] drug information does not endorse drugs, diagnose patients or recommend therapy. [employer] drug information is an informational resource designed [...] effective or appropriate for any given patient. [employer] does not assume any responsibility for any aspect of healthcare administered with the aid of information [facility] provides. The information contained herein is not intended to cover all possible uses, directions, precautions, warnings, drug interactions, allergic reactions, or adverse effects. If you have questions about the drugs you are taking, check with your doctor, nurse or pharmacist. Copyright 6840-6486 [facility]. Version: 3.05. Revision Date: 10/16/2013. folic acid [...] may report side effects to FDA at 8-355-ZPH-6934. What other drugs will affect folic acid? Tell your doctor about all your other medicines, especially: ?? methotrexate; ?? nitrofurantoin; ?? pyrimethamine; ?? tetracycline; ?? a barbiturate such as phenobarbital or secobarbital; or ?? seizure medicine such as phenytoin or primidone. This list is not complete. Other drugs may affect folic acid, including prescription and eohf-ifq-amcpzkh medicines, vitamins, and herbal products. Not all [...] to ensure that the information provided by [employer]') is accurate, up-to-date, and complete, but no guarantee is made to that effect. Drug information contained herein may be time sensitive. [employer] information has been compiled for use by healthcare practitioners and consumers in the [place] and therefore [employer] does not warrant that uses outside of the [place] are appropriate, unless specifically indicated otherwise. [employer] drug information does not endorse drugs, diagnose patients or recommend therapy. [employer] drug information is an informational resource designed [...] effective or appropriate for any given patient. [employer] does not assume any responsibility for any aspect of healthcare administered with the aid of information [employer] provides. The information contained herein is not intended to cover all possible uses, directions, precautions, warnings, drug interactions, allergic reactions, or adverse effects. If you have questions about the drugs you are taking, check with your doctor, nurse or pharmacist. Copyright 9061-5210 [facility]. Version: 6.02. Revision Date: 01/25/2021. levofloxacin (oral) [...] What is levofloxacin? Levofloxacin is a fluoroquinolone (nusf-m-ZBKB-o-lone) antibiotic that fights bacteria in the body. [...] may report side effects to FDA at 8-362-NIH-2075. What other drugs will affect levofloxacin? Some [...] drugs may affect levofloxacin, including prescription and hbeu-cbv-pjxpdri medicines, vitamins, and herbal products. Not all [...] to ensure that the information provided by [employer]') is accurate, up-to-date, and complete, but no guarantee is made to that effect. Drug information contained herein may be time sensitive. [employer] information has been compiled for use by healthcare practitioners and consumers in the [place] and therefore [employer] does not warrant that uses outside of the [place] are appropriate, unless specifically indicated otherwise. [employer]'s drug information does not endorse drugs, diagnose patients or recommend therapy. [employer] drug information is an informational resource designed [...] effective or appropriate for any given patient. [employer] does not assume any responsibility for any aspect of healthcare administered with the aid of information [employer] provides. The information contained herein is not intended to cover all possible uses, directions, precautions, warnings, drug interactions, allergic reactions, or adverse effects. If you have questions about the drugs you are taking, check with your doctor, nurse or pharmacist. Copyright 5339-0045 [employer]. Version: 14.01. Revision Date: 07/01/2018. tamsulosin (negro nora JANN [...] may report side effects to FDA at 6-723-BBA-9736. What other drugs will affect tamsulosin? Tell [...] may affect tamsulosin. This includes prescription and ozok-kzl-nhtrlmm medicines, vitamins, and herbal products. Not all [...] to ensure that the information provided by [employer]') is accurate, up-to-date, and complete, but no guarantee is made to that effect. Drug information contained herein may be time sensitive. [employer] information has been compiled for use by healthcare practitioners and consumers in the [place] and therefore [employer] does not warrant that uses outside of the [place] are appropriate, unless specifically indicated otherwise. [employer] drug information does not endorse drugs, diagnose patients or recommend therapy. [employer] drug information is an informational resource designed [...] effective or appropriate for any given patient. [employer] does not assume any responsibility for any aspect of healthcare administered with the aid of information [employer] provides. The information contained herein is not intended to cover all possible uses, directions, precautions, warnings, drug interactions, allergic reactions, or adverse effects. If you have questions about the drugs you are taking, check with your doctor, nurse or pharmacist. Copyright 4926-3848 [employer]. Version: 9.02. Revision Date: 11/07/2018. ondansetron (oral) [...] may report side effects to FDA at 4-800-SRB-9536. What other drugs will affect ondansetron? Ondansetron [...] interact with ondansetron. This includes prescription and hane-wto-uhuihlf medicines, vitamins, and herbal products. Give a [...] to ensure that the information provided by [employer]') is accurate, up-to-date, and complete, but no guarantee is made to that effect. Drug information contained herein may be time sensitive. [employer] information has been compiled for use by healthcare practitioners and consumers in the [place] and therefore [employer] does not warrant that uses outside of the [place] are appropriate, unless specifically indicated otherwise. [employer]'s drug information does not endorse drugs, diagnose patients or recommend therapy. [employer] drug information is an informational resource designed [...] effective or appropriate for any given patient. [employer] does not assume any responsibility for any aspect of healthcare administered with the aid of information [employer] provides. The information contained herein is not intended to cover all possible uses, directions, precautions, warnings, drug interactions, allergic reactions, or adverse effects. If you have questions about the drugs you are taking, check with your doctor, nurse or pharmacist. Copyright 7346-5289 [employer]. Version: 13.01. Revision Date: 04/14/2016. hydrochlorothiazide (JAVON kayleen TORRESEPI yumi FULTON thierno david) What is the most important information I [...] may report side effects to FDA at 9-426-CLZ-2694. What other drugs will affect hydrochlorothiazide? Taking [...] drugs may affect hydrochlorothiazide, including prescription and kiir-hdi-ogtscpe medicines, vitamins, and herbal products. Not all [...] to ensure that the information provided by [employer]') is accurate, up-to-date, and complete, but no guarantee is made to that effect. Drug information contained herein may be time sensitive. [employer] information has been compiled for use by healthcare practitioners and consumers in the [place] and therefore [employer] does not warrant that uses outside of the [place] are appropriate, unless specifically indicated otherwise. [employer] drug information does not endorse drugs, diagnose patients or recommend therapy. [employer] drug information is an informational resource designed [...] effective or appropriate for any given patient. [employer] does not assume any responsibility for any aspect of healthcare administered with the aid of information [employer] provides. The information contained herein is not intended to cover all possible uses, directions, precautions, warnings, drug interactions, allergic reactions, or adverse effects. If you have questions about the drugs you are taking, check with your doctor, nurse or pharmacist. Copyright 4499-5961 [facility]. Version: 13.01. Revision Date: 08/03/2020. Emergency Awareness and Preventative Care STROKE is an EMERGENCY Every Minute Counts Act FAST and Check for these signs: FACE Does the face look uneven? ARM Electronically signed by Niels, [facility] Conversion Physician/Ophthalmologist Cerner at 10/10/2022 4:15 PM CDT documented in this encounter Plan of Treatment Not on file documented as of this encounter Visit Diagnoses Not on filedocumented in this encounter Care Teams Pharmacy Coordinator Relationship Specialty Start Date End Date Merlin Egan MD [address] [facility] [place], [place] [id number] PCP - General Family Medicine 04/18/22 12/12/23 Aj Valentine MD [address] [facility] [address] [place] [address] PCP - General Adolescent Medicine 12/13/23 11/02/24 Tim Rey MD [address] [facility] [address] [facility] [address] PCP - General Family Medicine 11/03/24 documented as of this encounter
--- OUTSIDE RECORDS SUMMARY | 2025-02-15 03:52 | XMS_ITS | Encounter Summary ---
Author Organization [employer] ([place], [place], [place], [place]) Address [address] [place] [address] Care Team Providers Care Electrical Machinist Name Role Phone Merlin Egan MD Primary Care Provider + [phone] Aj Valentine MD Primary Care Provider + [phone] Tim Rey MD Primary Care Provider + [phone] Encounter Details Date Type Department Care Team (Late st Contact Info) Description 03/13/2022 Transcribed Document [facility] Radiology [address] [place] [address] Zeinab Dawson MD [address] [place] [address] [place] [address] Social History Tobacco Use Types Packs/Day Years [...] Do you speak a language other than British at [facility]? No 10/26/2024 Do you want help [...] Miscellaneous Notes * Cerner Conversion Note - Zeinab Dawson MD - 03/13/2022 2:30 PM EDT Patient: JU DAVE Age: 46 Years Sex: Male : 1975 Chief Complaint transfer for kidney stone Primary Care Provider BRIAN, UNKNOWN History of Present Illness Very unfortunate 46-year-old gentleman history of kidney stones in the past presents to [facility] with a 2-3 2 to 3-day [...] and requested that he be transferred to [facility] for evaluation. This afternoon patient denies [...] with moderate left hydronephrosis bilateral nephrolithiasis. -urology monnifatimah consulted -ivf pain controll ua trace bacterai [...] cocaine, amphetamines on tox screen in [facility] [place] [place] tobacco abuse- nicotine patch gi prop- pepcid [...] in bed, Continuous Order (ZEINAB DAWSON MD-INT) Problem List/Past Medical History Ongoing [...] on filedocumented in this encounter Care Teams Electrical Machinist Relationship Specialty Start Date End Date Merlin Egan MD [address] [place] [address] PCP - General Family Medicine 04/18/22 12/12/23 Aj Valentine MD [facility] [facility] [address] [place] [address] PCP - General Adolescent Medicine 12/13/23 11/02/24 Tim Rey MD [address] [place] [address] PCP - General Family Medicine 11/03/24 documented as of this encounter
--- OUTSIDE RECORDS SUMMARY | 2025-02-15 03:52 | XMS_ITS | Encounter Summary ---
Author Organization [employer] ([place], [place], [place], [place]) Address [address] [place] [address] Care Team Providers Care Criminal Justice Program Director Name Role Phone Merlin Egan MD Primary Care Provider + [phone] Aj Valentine MD Primary Care Provider + [phone] Tim Rey MD Primary Care Provider + [phone] Encounter Details Date Type Department Care Team (Late st Contact Info) Description 03/14/2022 Transcribed Document [facility] [place] [address] [place] [address] ProviderRocael MD [address] [place] [address] Social History Tobacco Use Types [...] speak a language other than Thai at [facility]? No 10/26/2024 Do you want help with [...] Standing scale Routine Weight Entry Format : [place] Routine Weight, Pounds : 132 lb Routine Weight Calculation : 60 kg Height Source : Chart Height Entry Format : [place] Height, Feet : 5 ft Height, Inches : 8 Inch Clinical Height : 172.72 cm Body Surface Area (BSA), Routine : 1.71 m2 Body Mass Index (BMI), Routine : 20.11 kg/m2 Maggie Thomas RN - 03/14/2022 6:41 EDT Electronically signed by [facility] Conversion Public Safety Teacher Cerner at 10/10/2022 4:15 PM CDT documented in this encounter Plan of Treatment Not on file documented as of this encounter Visit Diagnoses Not on filedocumented in this encounter Care Teams Criminal Justice Program Director Relationship Specialty Start Date End Date Merlin Egan MD [address] [place] [address] PCP - General Family Medicine 04/18/22 12/12/23 Aj Valentine MD [address] [place] [address] PCP - General Adolescent Medicine 12/13/23 11/02/24 Tim Rey MD [address] [place] [address] PCP - General Family Medicine 11/03/24 documented as of this encounter
--- OUTSIDE RECORDS SUMMARY | 2025-02-15 03:52 | XMS_ITS | Encounter Summary ---
Author Organization [employer] ([place], [place], [place], [place]) Address [address] [place] [address] Care Team Providers Care Multi Mission Helicopter Aircrewman Name Role Phone Merlin Egan MD Primary Care Provider + [phone] Aj Valentine MD Primary Care Provider + [phone] Tim Rey MD Primary Care Provider + [phone] Encounter Details Date Type Department Care Team (Late st Contact Info) Description 03/13/2022 Transcribed Document [facility] [place] [address] [place] [address] ProviderRocael MD [address] [place] [address] Social History Tobacco Use Types [...] Do you speak a language other than Portuguese at [facility]? No 10/26/2024 Do you want [...] Conversion Note - Historical Provider, - 03/13/2022 12:47 PM CDT Consult Phone Call Documentation Entered On: 03/13/2022 13:39 EDT Performed On: 03/13/2022 12:47 EDT by Yamilka Vega, [facility] Coord Phone Call for Consults Consult Reason : kidney stones Physician Requesting Consult : ZEINAB DAWSON MD-INT Physician Requested for Consult : AJ HALL MD-URO Date and Time Call Returned : 03/13/2022 13:38 EDT Consult, Additional Information : Spoke with Saranya on the phone concerning the consult. Yamilka Vega, [facility] Coord - 03/13/2022 13:37 EDT Electronically signed by [facility] Conversion Arrt Technologist Cerner at 10/10/2022 4:02 PM CDT documented in this encounter Plan of Treatment Not on file documented as of this encounter Visit Diagnoses Not on filedocumented in this encounter Care Teams Multi Mission Helicopter Aircrewman Relationship Specialty Start Date End Date Merlin Egan MD [address] [place] [address] PCP - General Family Medicine 04/18/22 12/12/23 Aj Valentine MD [address] [place], [place] [id number] PCP - General Adolescent Medicine 12/13/23 11/02/24 Tim Rey MD [address] [place] [id number] PCP - General Family Medicine 11/03/24 documented as of this encounter
--- OUTSIDE RECORDS SUMMARY | 2025-02-15 03:52 | XMS_ITS | Encounter Summary ---
Author Organization [employer] ([place], [place], [place], [place]) Address [address] [place] [address] Care Team Providers Care Crop Grain Or Livestock Farm Manager Name Role Phone Merlin Egan MD Primary Care Provider + [phone] Aj Valentine MD Primary Care Provider + [phone] Tim Rey MD Primary Care Provider + [phone] Encounter Details Date Type Department Care Team (Late st Contact Info) Description 03/13/2022 Transcribed Document [facility] [place] [address] [place] [address] ProviderRocael MD [address] [place] [address] Social History Tobacco Use Types [...] Do you speak a language other than Kinyarwanda at [facility]? No 10/26/2024 Do you want [...] Conversion Note - Historical Provider, - 03/13/2022 1:17 PM CDT Consult Phone Call Documentation Entered On: 03/13/2022 14:48 EDT Performed On: 03/13/2022 13:17 EDT by Yamilka Vega, [facility] Coord Phone Call for Consults Consult Reason : chestpain, hx cocaine, tob, etoh, amphetamine Physician Requesting Consult : ZEINAB DAWSON MD-INT Physician Requested for Consult : KENJI MENDOZA MD-CAR Date and Time Call Returned : 03/13/2022 14:45 EDT Yamilka Vega, [facility] - 03/13/2022 14:45 EDT documented in this encounter Plan of Treatment Not on file documented as of this encounter Visit Diagnoses Not on filedocumented in this encounter Care Teams Crop Grain Or Livestock Farm Manager Relationship Specialty Start Date End Date Merlin Egan MD [address] [facility] [place] [address] PCP - General Family Medicine 04/18/22 12/12/23 Aj Valentine MD [address] [place] [address] PCP - General Adolescent Medicine 12/13/23 11/02/24 Tim Rey MD [address] [facility] [address] [place] [address] PCP - General Family Medicine 11/03/24 documented as of this encounter
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
--- OUTSIDE RECORDS SUMMARY | 2025-02-15 03:52 | XMS_ITS | Encounter Summary ---
Author Organization [employer] [employer] ([place], [place], [place], [place]) Address [address] [place] [address] Care Team Providers Care Forest Resource Specialist Name Role Phone Merlin Egan MD Primary Care Provider + [phone] Aj Valentine MD Primary Care Provider + [phone] Tim eRy MD Primary Care Provider + [phone] Encounter Details Date Type Department Care Team (Late st Contact Info) Description 03/13/2022 Transcribed Document [facility] [address] [place] [address] ProviderRocael MD [address] [place] [address] Social History Tobacco Use Types [...] Do you speak a language other than Serbian at [facility]? No 10/26/2024 Do you want help [...] - 03/13/2022 19:57 EDT Electronically signed by Niels [facility] Conversion Pipeline Superintendent Cerner at 10/15/2022 2:00 PM CDT documented in this encounter Plan of Treatment Not on file documented as of this encounter Visit Diagnoses Not on filedocumented in this encounter Care Teams Forest Resource Specialist Relationship Specialty Start Date End Date Merlin Egan MD [address] [facility] [place] [address] PCP - General Family Medicine 04/18/22 12/12/23 Aj Valentine MD [address] [place] [address] PCP - General Adolescent Medicine 12/13/23 11/02/24 Tim Rey MD [address] [place] [address] PCP - General Family Medicine 11/03/24 documented as of this encounter
--- OUTSIDE RECORDS SUMMARY | 2025-02-15 03:52 | XMS_ITS | Clinical Summary ---
Author Organization [facility] Address [address] [place] [address] Care Team Providers Care Sales & Service Associate Name Role Phone Unavailable Primary Care Provider Unavailabl e Social History Tobacco Use Types Packs/Day Years Used Date Smoking Tobacco: Never Assessed Sex and Gender Information Value Date Recorded Sex Assigned at Not on file Legal Sex Male 12:16 PM EDT Gender Identity Not on file Sexual Orientation Not on file Plan of Treatment Health Maintenance Due Date Last Done Comments CT Colonography 1974 Colonoscopy 1974 Colorectal Cancer Screening 1974 FIT-DNA (Cologuard) 1974 FIT 1974 FOBT 1974 HIV Screening 1974 Hepatitis C Screening 1974 Lipid Panel 1974 Medicare Annual Wellness (AWV) 1974 Sigmoidoscopy 1974 MMR Vaccines (1 of 1 - Stand sarah series) 10/21/1975 Hepatitis B Screening 1992 DTaP/Tdap/Td Vaccines (1 - Tdap) 1993 Hepatitis B Vaccines (1 of 3 - 19+ 3-dose series) 1993 COVID-19 Vaccine (1 - 2023-2 5 season) 2024 Depression Risk Screening 06/25/2024 SDOH Screening 06/25/2024 Pneumococcal Vaccine: 50+ Ye ars (1 of 1 - PCV) 2024 Zoster Vaccines (1 of 2) 2024 Influenza Vaccine (#1) 2025 HIB Vaccines Aged Out No longer eligi ble based on patient's age to complete this topic HPV Vaccines Aged Out No longer eligi ble based on patient's age to complete this topic Hepatitis A Vaccines Aged Out No long er eligible based on patient's age to complete this topic IPV Vaccines Aged Out No longer eligi ble based on patient's age to complete this topic Meningococcal B Vaccine Aged Out No l onger eligible based on patient's age to complete this topic Meningococcal Vaccine Aged Out No arnoldo yamini eligible based on patient's age to complete this topic Rotavirus Vaccines Aged Out No longer eligible based on patient's age to complete this topic Insurance [employer] MEDICARE ADVANTAGE
--- OUTSIDE RECORDS SUMMARY | 2025-02-15 03:52 | XMS_ITS | Encounter Summary ---
Author Organization [employer] ([place], [place], [place], [place]) Address [address] [place] [address] Care Team Providers Care Master Sheet Clerk Name Role Phone Merlin Egan MD Primary Care Provider + [phone] Aj Valentine MD Primary Care Provider + [phone] Tim Rey MD Primary Care Provider + [phone] Encounter Details Date Type Department Care Team (Late st Contact Info) Description 03/15/2022 Transcribed Document [facility] [place] [address] [place] [address] ProviderRocael MD [address] [place] [address] Social History Tobacco Use Types [...] speak a language other than Serbian at [facility]? No 10/26/2024 Do you [...] Cerner Conversion Note - Historical Provider, - 03/15/2022 5:00 AM CDT Chart Check - Review Order Profile Entered On: 03/15/2022 6:28 EDT Performed On: 03/15/2022 5:00 EDT by Modesta Canada, RN Chart Check Powerplans Initiated/Discontinued as Appropriate : Yes All Active Orders Reviewed : Yes Modesta Canada, RN - 03/15/2022 6:27 EDT documented in this encounter Plan of Treatment Not on file documented as of this encounter Visit Diagnoses Not on filedocumented in this encounter Care Teams Master Sheet Clerk Relationship Specialty Start Date End Date Merlin Egan MD [address] [place] [address] [place] [address] PCP - General Family Medicine 04/18/22 12/12/23 Aj Valentine MD [address] [facility] [address] [place] [address] PCP - General Adolescent Medicine 12/13/23 11/02/24 Tim Rey MD [address] [place] [address] PCP - General Family Medicine 11/03/24 documented as of this encounter
--- OUTSIDE RECORDS SUMMARY | 2025-02-15 03:52 | XMS_ITS | Clinical Summary ---
Author Organization [employer] ([place], [place], [place], [place]) Address [address] [place] [address] Care Team Providers Care Spinning Frame Changer Name Role Phone Tim Rey MD Primary Care Provider +1- [phone] Allergies Active Allergy Reactions Criticality Noted Date [...] shortness of breath. 5 11/02/19 26 Active Active Problems Problem Noted Date Diagnosed Date Withdrawal seizures 10/26/2024 Anemia 12/10/2023 12/10/2023 Back pain 12/10/2023 12/10/2023 Gastroesophageal reflux disease 12/10/2023 12/10/2023 HTN (hypertension) 12/10/2023 12/10/2023 PTSD (post-traumatic stress disorder) 12/10/2023 12/10/2023 Tobacco abuse 12/10/2023 12/10/2023 Traumatic brain injury 12/10/2023 GI bleed 12/09/2023 Kidney stone 02/07/2016 12/10/2023 Overview (12/10/2023): From Automated Load;Provider: Weston Paniagua;Status: Active Family History Medical History Relation Name Comments Diabetes Mother Relation Name Status Comments Brother Alive Father Alive Mother Alive Sister Alive Social History Tobacco Use Types Packs/Day Years Used Date Smoking Tobacco: Former Cigarettes 0.5 35.2 S tarted: 11/23/1989 Smokeless Tobacco: Never Tobacco [...] your living situation today? I have a [facility] place to live 10/26/2024 Think about [...] speak a language other than Thai at [facility]? No [...] (Zoster) (1 of 2) 2024 Influenza Vaccine (#1) 2025 Tobacco Cessation Counseling and Screening (12+) 10/2610/26/2024 Lipid Panel 12/08/2026 12/09/2023 HIV Screening Completed 12/09/2023 Hepatitis C Screening Completed 12/09/2023 Medical Devices Implanted Type Area Lottery Sales Clerk Device Identifier Shelf Expiration Date Model / Serial / Lot Stent Uret Braid + [id number] - [id number] Implanted:Qty : 1 on 04/18/2022 by Aj Gotti MD at [facility] IMPLANTS N/A: Ure[employer]:UROLOG[employer]/GYNE COLOGY 06/26/2024 [id number] 20 / / [id number] Description:STENT Procedures Procedure Name Priority Date/Time Associated Diagnosis Comments HIV 1/2 AG/AB COMBO Routine 12/09/2023 6 :08 PM EDT LIPID PANEL Routine 12/09/2023 6:07 PM EDT HEPATITIS PANEL, ACUTE Routine 12/09/2023 6:06 PM EDT from Last 3 Months or Most Recently Relevant to Health Maintenance Results * HIV 1/2 AG/AB COMBO (12/09/2023 6:08 PM EDT) HIV-1 P24 Antigen Nonreactive Nonreactive 12/09/2023 7:[address] [facility] Comment: The Combo HIV procedure [...] 6:08 PM EDT 12/09/2023 6:21 PM EDT us Jose Desai MD LAB BLOOD ORDERABLES Final Result Performing Organization Address City/State/[facility] Co de Phone Number [facility] [address] [phone] * Lipid panel (12/09/2023 6:07 PM EDT) Triglycerides 31 0 - 249 mg/dL 12/09/2023 9:[address] [facility] Cholesterol 87 0 - 199 mg/dL 12/09/2023 9:[address] [facility] Comment: 200 to 239 mg/dL = Moderate (borderline) >239 mg/dL = High HDL Cholesterol 56 >=40 mg/dL 9:[address] [facility] Comment: >=60 mg/dL = Desirable <40 mg/dL = Increased Risk All other components are listed individually or are calculations VLDL Cholesterol 6.2 5 - 40 mg/dL 12/09/2023 9:[address] [facility] Cholesterol/HDL ratio 1.6 0.0 - 3.2 12/09/2023 9:[address] [facility] LDl/HDL Ratio 0 0 - 4 12/09/2023 9:[address] [facility] RISK COMP 2 12/09/2023 9:[address] [facility] LDL Cholesterol, Calculated 25 0 - 99 mg/dL 12/09/2023 9:[address] [facility] Blood Venipuncture / Unknown 12/09/2023 6:07 PM EDT 12/09/2023 6:21 PM EDT us Jose Desai MD LAB BLOOD ORDERABLES Final Result [facility] [address] [phone] * (ABNORMAL) Hepatitis panel, acute (12/09/2023 6:06 PM EDT) Hep A IgM Nonreactive Nonreactive, Equivocal 12/09/2023 8:[address] [facility] Hep B C IgM Nonreactive Nonreactive 12/09/2023 8:[address] [facility] Hepatitis B surface antigen Nonreactive Nonreactive, Equivocal 12/09/2023 8:[address] [facility] Hepatitis C Ab Reactive(A) Nonreactive, Equivocal 12/09/2023 8:[address] [facility] Blood Venipuncture / Unknown 12/09/2023 6:06 PM EDT 12/09/2023 6:[address] [facility] - 12/09/2023 8:26 PM EDT [...] Desai MD LAB BLOOD ORDERABLES Final Result [facility] [address] [phone] from Last 3 Months or Most Recently Relevant to Health Maintenance Insurance MEDICAID OF [place] Advance Directives For more information, please contact: [phone] Documents on File Type Date Recorded Patient Cuff Runner Expl anation Advance Directives and Livin g Will 04/18/2022 10:13 AM * Full Code (Latest Code Status on File) Date Activated Date Inactivated Comments 12/09/2023 1:56 PM 12/12/2023 1:00 PM Care Teams Spinning Frame Changer Relationship Specialty Start Date End Date Tim Rey MD [address] [place] [address] [place] [address] PCP - General Family Medicine 11/03/24
--- OUTSIDE RECORDS SUMMARY | 2025-02-15 03:52 | XMS_ITS | Referral Summary ---
Author Organization [employer] ([place], [place], [place], [place]) Address [address] [place] [address] Care Team Providers Care Wrapper Sorter Name Role Phone Tim Rey MD Primary Care Provider +1- [phone] Allergies Active Allergy Reactions Criticality Noted Date [...] your living situation today? I have a [facility] place to live 10/26/2024 Think about [...] Do you speak a language other than Colombian at [facility]? No 10/26/2024 Do you [...] on file Medical Devices Implanted Type Area Ferryboat Ticket Taker Device Identifier Shelf Expiration Date Model / Serial / Lot Stent Uret Braid + [id number] - [id number] Implanted:Qty : 1 on 04/18/2022 by Aj Gotti MD at [facility] IMPLANTS N/A: [employer]GYNE COLOGY 06/26/2024 [id number] 20 / / [id number] Description:STENT Procedures Procedure Name Priority Date/Time Associated [...] Antigen Nonreactive Nonreactive 12/09/2023 7:54 PM EDT [facility] Comment: The Combo HIV procedure [...] Desai MD LAB BLOOD ORDERABLES Final Result [facility] [address] [phone] * Lipid panel (12/09/2023 6:07 PM EDT) Triglycerides 31 0 - 249 mg/dL 12/09/2023 9:24 PM EDT [facility] Cholesterol 87 0 - 199 mg/dL 12/09/2023 9:24 PM EDT [facility] Comment: 200 to 239 mg/dL = Moderate (borderline) >239 mg/dL = High HDL Cholesterol 56 >=40 mg/dL 9:24 PM EDT [facility] Comment: >=60 mg/dL = Desirable <40 mg/dL = Increased Risk All other components are listed individually or are calculations VLDL Cholesterol 6.2 5 - 40 mg/dL 12/09/2023 9:24 PM EDT [facility] Cholesterol/HDL ratio 1.6 0.0 - 3.2 12/09/2023 9:24 PM EDT [facility] LDl/HDL Ratio 0 0 - 4 12/09/2023 9:24 PM EDT [facility] RISK COMP 2 12/09/2023 9:24 PM EDT [facility] LDL Cholesterol, Calculated 25 0 - 99 mg/dL 12/09/2023 9:24 PM EDT [facility] Blood Venipuncture / Unknown 12/09/2023 6:07 PM EDT 12/09/2023 6:21 PM EDT Jose Desai MD LAB BLOOD ORDERABLES Final Result [facility] [address] [phone] * (ABNORMAL) Hepatitis panel, acute (12/09/2023 6:06 PM EDT) Pathologist [facility] Hep A IgM Nonreactive Nonreactive, Equivocal 12/09/2023 8:26 PM EDT [facility] Hep B C IgM Nonreactive Nonreactive 12/09/2023 8:26 PM EDT [facility] Hepatitis B surface antigen Nonreactive Nonreactive, Equivocal 12/09/2023 8:26 PM EDT [facility] Hepatitis C Ab Reactive(A) Nonreactive, Equivocal 12/09/2023 8:26 PM EDT [facility] Blood Venipuncture / Unknown 12/09/2023 6:06 PM EDT 12/09/2023 6:21 PM EDT [facility] - 12/09/2023 8:26 PM EDT Hepatitis [...] Desai MD LAB BLOOD ORDERABLES Final Result [facility] 1 [place] [address], [facility] [phone] from Last 3 Months or Most Recently Relevant to Health Maintenance Insurance [place]ICAID OF [place] [facility] Advance Directives For more information, please contact: [phone] Documents on File Type Date Recorded Patient Pipeline Gang Supervisor Expl anation Advance Directives and Livin g Will 04/18/2022 10:13 AM * Full Code (Latest Code Status on File) Date Activated Date Inactivated Comments 12/09/2023 1:56 PM 12/12/2023 1:00 PM Care Teams Wrapper Sorter Relationship Specialty Start Date End Date Tim Rey MD [address] [place] [address] PCP - General Family Medicine 11/03/24
--- OUTSIDE RECORDS SUMMARY | 2025-02-15 03:52 | XMS_ITS | Encounter Summary ---
Author Organization [employer] ([place], [place], [place], [place]) Address [address] [place] [address] Care Team Providers Care Case Filler Name Role Phone Merlin Egan MD Primary Care Provider + [phone] Aj Valentine MD Primary Care Provider + [phone] Tim Rey MD Primary Care Provider + [phone] Encounter Details Date Type Department Care Team (Late st Contact Info) Description 03/14/2022 Transcribed Document [facility] [place] [address] [place] [address] ProviderRocael MD [address] [place] [address] Social History Tobacco Use Types [...] speak a language other than Slovak at [facility]? No 10/26/2024 Do you want [...] Conversion Note - Historical Provider, - 03/14/2022 4:37 PM CDT Initial Discharge [...] Sil Pierre RN - 03/14/2022 16:37 EDT Electronically signed by Niels, [facility] Conversion Making Machine Operator Cerner at 10/10/2022 4:12 PM CDT documented in this encounter Plan of Treatment Not on file documented as of this encounter Visit Diagnoses Not on filedocumented in this encounter Care Teams Case Filler Relationship Specialty Start Date End Date Merlin Egan MD [address] [place] [address] [place] [address] PCP - General Family Medicine 04/18/22 12/12/23 Aj Valentine MD [address] [place] [address] PCP - General Adolescent Medicine 12/13/23 11/02/24 Tim Rey MD [address] [place] [address] PCP - General Family Medicine 11/03/24 documented as of this encounter
--- OUTSIDE RECORDS SUMMARY | 2025-02-15 03:52 | XMS_ITS | Encounter Summary ---
Author Organization [employer] ([place], [place], [place], [place]) Address [address] [place] [address] Care Team Providers Care Chute Worker Name Role Phone Merlin Egan MD Primary Care Provider + [phone] Aj Valentine MD Primary Care Provider + [phone] Tim Rey MD Primary Care Provider + [phone] Encounter Details Date Type Department Care Team (Late st Contact Info) Description 03/15/2022 Transcribed Document [facility] [place] Family Medicine [address] [place] [address] ProviderRocael MD [address] [place] [address] Social History Tobacco Use Types [...] Do you speak a language other than Turkmen at [facility]? No [...] Conversion Note - Historical Provider, - 03/15/2022 3:58 PM CDT Final Discharge [...] : Yes Discharge To Care Management : Home/Residential/Prison or Self Care - Sil Pierre, RERE - 03/15/2022 15:58 EDT Final Narrative Note Final Narrative Note : Pt DC home with family transporting via car. The pt was assessed by [facility] and reccomended partial hospitalization and sent resources. CM gave a copy of the resources to the pt and the pt signed a copy and was placed in chart. Sil Pierre RN - 03/15/2022 15:58 EDT Electronically signed by [facility], [facility] Conversion Double Surface Operator Cerner at 10/10/2022 4:10 PM CDT documented in this encounter Plan of Treatment Not on file documented as of this encounter Visit Diagnoses Not on filedocumented in this encounter Care Teams Chute Worker Relationship Specialty Start Date End Date Merlin Egan MD [address] [facility] [place] [address] PCP - General Family Medicine 04/18/22 12/12/23 Aj Valentine MD [address] [place] [address] PCP - General Adolescent Medicine 12/13/23 11/02/24 Tim Rey MD [address] [place] [address] PCP - General Family Medicine 11/03/24 documented as of this encounter
--- OUTSIDE RECORDS SUMMARY | 2025-02-15 03:52 | XMS_ITS | Encounter Summary ---
Author Organization [employer] ([place], [place], [place], [place]) Address [address] [place] [address] Care Team Providers Care Derrick Man Name Role Phone Merlin Egan MD Primary Care Provider + [phone] Aj Valentine MD Primary Care Provider + [phone] Tim Rey MD Primary Care Provider + [phone] Encounter Details Date Type Department Care Team (Late st Contact Info) Description 03/13/2022 Transcribed Document [facility] Family Medicine [address] [place] [address] ProviderRocael MD [address] [place] [address] Social History Tobacco Use Types [...] Do you speak a language other than Irish at [facility]? No 10/26/2024 [...] Conversion Note - Historical Provider, - 03/13/2022 1:[address] [facility] Entered On: 03/13/2022 14:02 EDT Performed On: 03/13/2022 13:56 EDT by OPAL WA[place] PT [facility] Physical Therapy Screen : 1 PT EA ADDL 15 MIN NO CHARGE : 1 [facility] PT - 03/13/2022 14:01 EDT documented in this encounter Plan of Treatment Not on file documented as of this encounter Visit Diagnoses Not on filedocumented in this encounter Care Teams Derrick Man Relationship Specialty Start Date End Date Merlin Egan MD [address] [place] [address] [place] [address] PCP - General Family Medicine 04/18/22 12/12/23 Aj Valentine MD [address] [place] [address] PCP - General Adolescent Medicine 12/13/23 11/02/24 Tim Rey MD [address] [place] [address] PCP - General Family Medicine 11/03/24 documented as of this encounter
--- OUTSIDE RECORDS SUMMARY | 2025-02-15 03:52 | XMS_ITS | Encounter Summary ---
Author Organization [employer] ([place], [place], [place], [place]) Address [address] [place] [address] Care Team Providers Care Motor Adjuster Name Role Phone Merlin Egan MD Primary Care Provider + [phone] Aj Valentien MD Primary Care Provider + [phone] Tim Rey MD Primary Care Provider + [phone] Encounter Details Date Type Department Care Team (Late st Contact Info) Description 03/15/2022 Transcribed Document [facility] [place] [address] [place] [address] ProviderRocael MD [address] [place] [address] Social History Tobacco Use Types [...] Do you speak a language other than Estonian at [facility]? No 10/26/2024 Do [...] - 03/15/2022 18:46 EDT Electronically signed by Niels [facility] Conversion Waiter/Waitress Dining Car Berna at 10/10/2022 4:03 PM CDT documented in this encounter Plan of Treatment Not on file documented as of this encounter Visit Diagnoses Not on filedocumented in this encounter Care Teams Motor Adjuster Relationship Specialty Start Date End Date Merlin Egan MD [address] [place] [address] PCP - General Family Medicine 04/18/22 12/12/23 Aj Valentine MD [address] [place] [address] PCP - General Adolescent Medicine 12/13/23 11/02/24 Tim Rey MD [address] [place] [address] PCP - General Family Medicine 11/03/24 documented as of this encounter
--- OUTSIDE RECORDS SUMMARY | 2025-02-15 03:52 | XMS_ITS | Encounter Summary ---
Author Organization [employer] ([place], [place], [place], [place]) Address [address] [place] [address] Care Team Providers Care Infectious Disease Technician Name Role Phone Merlin Egan MD Primary Care Provider + [phone] Aj Valentine MD Primary Care Provider + [phone] Tim Rey MD Primary Care Provider + [phone] Encounter Details Date Type Department Care Team (Late st Contact Info) Description 03/15/2022 Transcribed Document [facility] [place] [address] [place] [address] ProviderRocael MD [address] [place] [address] Social History Tobacco Use Types [...] Do you speak a language other than Upper Sorbian at [facility]? No 10/26/2024 Do you want help [...] CARE BEDSIDE NON-EXEMPT - 03/15/2022 11:58 EDT Electronically signed by Niels [facility] Conversion Director Life Cerner at 10/10/2022 4:22 PM CDT documented in this encounter Plan of Treatment Not on file documented as of this encounter Visit Diagnoses Not on filedocumented in this encounter Care Teams Infectious Disease Technician Relationship Specialty Start Date End Date Merlin Egan MD [address] [facility] [place] [address] PCP - General Family Medicine 04/18/22 12/12/23 Aj Valentine MD [address] [place] [address] PCP - General Adolescent Medicine 12/13/23 11/02/24 Tim Rey MD [address] [place] [address] PCP - General Family Medicine 11/03/24 documented as of this encounter
--- OUTSIDE RECORDS SUMMARY | 2025-02-15 03:52 | XMS_ITS | Encounter Summary ---
Author Organization [employer] ([place], [place], [place], [place]) Address [address] [place] [address] Care Team Providers Care Power Generation Engineer Name Role Phone Merlin Egan MD Primary Care Provider + [phone] Aj Valentine MD Primary Care Provider + [phone] Tim Rey MD Primary Care Provider + [phone] Encounter Details Date Type Department Care Team (Late st Contact Info) Description 03/15/2022 Transcribed Document [facility] [place] Family Medicine [address] [place] [address] ProviderRocael MD [address] [place] [address] Social History Tobacco Use Types [...] Do you speak a language other than Setswana at [facility]? No 10/26/2024 Do you want help with [...] Conversion Note - Historical Provider, - 03/15/2022 11:57 AM CDT Patient Education [...] These discussions are confidential. ??? The National [place] on Alcoholism and Drug Dependence (NCADD). This group has information about treatment centers and programs for people who have an addiction and for family members. ? Call: 8-668-TTI-CALL ( ). ? Visit the website: https://www.ncadd.org/ ??? The Substance Abuse and Mental Health Services Administration (SAMA). This organization will help you find publicly funded treatment centers, help hotlines, and counseling services near you. ? Call: 7-908-416-HELP ( ). ? Visit the website: www.findtreatment.[facility].gov ??? The National Problem Gambling Helpline. This is a 24-hour confidential helpline for gambling addiction. ? Call: ? Visit the website: https://www.[facility].org/ In countries outside of the [place] and [...] provider. Document Revised: 06/09/2021 Document Reviewed: 07/10/2018 [employer] Patient Education ? 2021 [employer]. Urology Kidney Stones Kidney stones are rock-like [...] these instructions at home: Medicines ??? Take pqeo-plk-crqzchw and prescription medicines only as told by [...] provider. Document Revised: 10/24/2019 Document Reviewed: 10/28/2019 [employer] Patient Education ? 2021 [employer]. documented in this encounter Plan of Treatment Not on file documented as of this encounter Visit Diagnoses Not on filedocumented in this encounter Care Teams Power Generation Engineer Relationship Specialty Start Date End Date Merlin Egan MD [address] [facility] [place] [address] PCP - General Family Medicine 04/18/22 12/12/23 Aj Valentine MD [address] [place] [address] PCP - General Adolescent Medicine 12/13/23 11/02/24 Tim Rey MD [address] [place] [address] PCP - General Family Medicine 11/03/24 documented as of this encounter
--- OUTSIDE RECORDS SUMMARY | 2025-02-15 03:52 | XMS_ITS | Encounter Summary ---
Author Organization [employer] ([place], [place], [place], [place]) Address [address] [place] [address] Care Team Providers Care Wireline Supervisor Name Role Phone Merlin Egan MD Primary Care Provider + [phone] Aj Valentine MD Primary Care Provider + [phone] Tim Rey MD Primary Care Provider + [phone] Encounter Details Date Type Department Care Team (Late st Contact Info) Description 03/15/2022 Transcribed Document [facility] [place] Family Medicine [address] [place] [address] ProviderRocael MD [address] [place] [address] Social History Tobacco Use Types [...] Do you speak a language other than Occitan at [facility]? No 10/26/2024 Do you [...] Conversion Note - Historical Provider, - 03/15/2022 12:04 PM CDT Patient: JU DAVE Age: 46 [...] tablet 750 mg = 1 Tab, Oral, [id number] naproxen 500 mg oral tablet 500 mg [...] - kidney stones ZEINAB DAWSON MD-[place], DO-ANS Current Diet Order Diet, Adult - [...] patients questions and educating on new medications. Electronically signed by Niels, Anastasiya Conversion Internet Technology Manager Cerner at 10/10/2022 4:20 PM CDT documented in this encounter Plan of Treatment Not on file documented as of this encounter Visit Diagnoses Not on filedocumented in this encounter Care Teams Wireline Supervisor Relationship Specialty Start Date End Date Merlin Egan MD [address] [place] [address] [place] [address] PCP - General Family Medicine 04/18/22 12/12/23 Aj Valentine MD [address] [place] [address] PCP - General Adolescent Medicine 12/13/23 11/02/24 Tim Rey MD [address] [place] [address] PCP - General Family Medicine 11/03/24 documented as of this encounter
--- OUTSIDE RECORDS SUMMARY | 2025-02-15 03:52 | XMS_ITS | Encounter Summary ---
Author Organization [employer] ([place], [place], [place], [place]) Address [address] [place] [address] Care Team Providers Care Tax Lawyer Name Role Phone Merlin Egan MD Primary Care Provider + [phone] Aj Valentine MD Primary Care Provider + [phone] Tim Rey MD Primary Care Provider + [phone] Encounter Details Date Type Department Care Team (Late st Contact Info) Description 03/13/2022 Transcribed Document [facility] [place] [address] [place] [address] ProviderRocael MD [address] [place] [address] Social History Tobacco Use Types [...] Do you speak a language other than Slovenian at [facility]? No 10/26/2024 Do you want [...] Historical Provider, - 03/13/2022 1:56 PM CDT Therapy Screen, PT Entered On: 03/13/2022 14:01 EDT Performed On: 03/13/2022 13:56 EDT by OPAL WAKEFIELD, PT Therapy Screen, PT Medical Chart Reviewed [...] - 03/13/2022 14:01 EDT Electronically signed by Niels [facility] Conversion Strainer Mill Operator Cerner at 10/10/2022 4:23 PM CDT documented in this encounter Plan of Treatment Not on file documented as of this encounter Visit Diagnoses Not on filedocumented in this encounter Care Teams Tax Lawyer Relationship Specialty Start Date End Date Merlin Egan MD [address] [facility] [place] [address] PCP - General Family Medicine 04/18/22 12/12/23 Aj Valentine MD [address] [place] [address] PCP - General Adolescent Medicine 12/13/23 11/02/24 Tim Rey MD [address] [place] [address] PCP - General Family Medicine 11/03/24 documented as of this encounter
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
--- OUTSIDE RECORDS SUMMARY | 2025-02-15 03:52 | XMS_ITS | Encounter Summary ---
Author Organization [employer] ([place], [place], [place], [place]) Address [address] [place] [address] Care Team Providers Care Buttoner Name Role Phone Merlin Egan MD Primary Care Provider + [phone] Aj Valentine MD Primary Care Provider + [phone] Tim Rey MD Primary Care Provider + [phone] Encounter Details Date Type Department Care Team (Late st Contact Info) Description 03/15/2022 Transcribed Document [facility] [place] [address] [place] [address] ProviderRocael MD [address] [place] [address] Social History Tobacco Use Types [...] Do you speak a language other than Albanian at [facility]? No 10/26/2024 Do you want help with [...] Historical ProviderMD - 03/15/2022 2:00 AM CDT Service Delivery Director Details Entered On: 03/15/2022 1:28 EDT Performed On: 03/15/2022 2:00 EDT by Modesta Canada, RN Order Details Transport Mode Order Detail [...] - 03/15/2022 1:26 EDT Electronically signed by Harshil Bowser Conversion Binding Cementer French Cord Cerner at 10/10/2022 4:10 PM CDT documented in this encounter Plan of Treatment Not on file documented as of this encounter Visit Diagnoses Not on filedocumented in this encounter Care Teams Buttoner Relationship Specialty Start Date End Date Merlin Egan MD [address] [facility] [place] [address] PCP - General Family Medicine 04/18/22 12/12/23 Aj Valentine MD [address] [place] [address] PCP - General Adolescent Medicine 12/13/23 11/02/24 Tim Rey MD [address] [place] [address] PCP - General Family Medicine 11/03/24 documented as of this encounter
[2025-02-15] MEDS: ONDANSETRON 4MG/2ML VIAL 4 MG IV (03:59)
[2025-02-15] MEDS: HYDROMORPHONE 2MG/ML SYRINGE 0.5 MG IV ×2 (03:59→10:20)
[2025-02-15] MEDS: MIDAZOLAM 2MG/2ML VIAL 2 MG IV ×2 (04:00→07:48)
[2025-02-15 04:10] LABS: Hematocrit 42.5 % (42.0-52.0); Hemoglobin 14.3 g/dL (14.1-18.0); Immature Granulocytes % 0.1 %; Mean Corpuscular HGB Conc 33.6 g/dL (31.8-35.4); Mean Corpuscular Hemoglobin 31.5 pg (27.0-31.2); Mean Corpuscular Volume 93.6 fl (80-94); Nucleated Red Blood Cells % 0 %; Platelet Count 182 K/mm3 (142-424); Red Blood Count 4.54 M/mm3 (4.60-6.20); Red Cell Distribution Width-SD 54.9 fL; White Blood Count 8.9 K/mm3 (4.8-10.8)
[2025-02-15] MEDS: PANTOPRAZOLE 40MG VIAL 40 MG IV (04:15)
[2025-02-15] MEDS: LACTATED RINGERS 1000ML 1,000 ML 999 ML IV ×2 (04:15→06:29)
[2025-02-15 04:16] LABS: Alanine Aminotransferase 15 U/L (12-78); Albumin Level 4.2 g/dl (3.5-5.0); Albumin/Globulin Ratio 1.2 (1.1-1.8); Alkaline Phosphatase 170 U/L (38-126); Anion Gap 13.8 mEq/L (5-15); Aspartate Amino Transferase 71 U/L (17-59); Bilirubin,Total 1.3 mg/dl (0.2-1.3); Blood Urea Nitrogen 10 mg/dl (9-20); Calcium 9.1 mg/dl (8.4-10.2); Carbon Dioxide 25 mmol/L (22.0-30.0); Chloride 102 mmol/L (98-107); Creatinine Clearance Estimated 132 mL/min (50-200); Creatinine,Serum 0.60 mg/dl (0.66-1.25); Estimated Glomerular Filt Rate 143 ml/min (>60); GFR (African American) 173 ML/MIN (>60); Globulin 3.4 g/dL (1.3-3.2); Glucose 89 mg/dl (74-100); Lipase 83 U/L (23-300); Sodium 138 mmol/L (136-145); Total Protein,Serum 7.6 g/dl (6.3-8.2)
--- NOTE | 2025-02-15 04:16 | ECG_ITS ---
APPROVED REPORT Exam: Resting ECG HR:51 bpm ECG Measurements Heart Rate 51 AXES QRSd 117 QRS 48 QT 468 T 62 QTc 445 Conclusion ATRIAL FIBRILLATION WITH SLOW VENTRICULAR RESPONSE MODERATE INTRAVENTRICULAR CONDUCTION DELAY [110+ ms QRS DURATION] ABNORMAL RHYTHM ECG UNCONFIRMED REPORT Electronically signed by : ONEIL PETERSEN, 02/16/2025 23:20:10
[2025-02-15 04:17] LABS: INR 0.99 (0.9-1.1); Prothrombin Time 11.0 seconds (10.1-12.5)
[2025-02-15 04:23] LABS: Potassium 2.8 mmoL/L (3.5-5.1)
--- NOTE | 2025-02-15 04:24 | PC.NURSE ---
critical called from MD devon Ruiz aware
[2025-02-15 04:40] LABS: Troponin I < 0.01 ng/ml (0.00-0.034)
[2025-02-15] MEDS: SODIUM CHLORIDE 0.9% 10ML SYR (RAD ONLY) 10 ML IV (04:40)
[2025-02-15] MEDS: IOPAMIDOL-370 (76%);100ML BOTTLE 75 ML IV (04:40)
[2025-02-15] MEDS: POTASSIUM CHLORIDE 20MEQ TAB 60 MEQ PO (04:44)
[2025-02-15 04:45] LABS: Magnesium 1.4 mg/dl (1.6-2.3)
[2025-02-15] MEDS: MAGNESIUM SULFATE IN WATER 2 GM/50 ML PIGGYBACK IV (04:58)
--- NOTE | 2025-02-15 05:32 | ECG_ITS ---
APPROVED REPORT Exam: Resting ECG HR:55 bpm ECG Measurements Heart Rate 55 AXES DE 135 P 70 QRSd 113 QRS 57 QT 460 T 58 QTc 448 Conclusion SINUS BRADYCARDIA MODERATE INTRAVENTRICULAR CONDUCTION DELAY [110+ ms QRS DURATION] MINIMAL ST DEPRESSION [0.025+ mV ST DEPRESSION] BORDERLINE ECG UNCONFIRMED REPORT Electronically signed by : ONEIL PETERSEN, 02/16/2025 23:19:56
[2025-02-15 06:00] LABS: Microscopic, Urine URINE MICROSCOPIC (MICROSCOPIC)
[2025-02-15 06:08] LABS: Creatine Kinase 63 U/L (55-170)
[2025-02-15 06:12] LABS: Color,Urine ORANGE (Yellow); Glucose,Urine (UA) Negative (Negative); Ketones,Urine 1+ (Negative); Leukocyte Esterase,Urine Negative (Negative); PH,Urine 6.5 (5.0-8.5); Protein,Urine 1+ (Negative); Specific Gravity, Urine 1.015 (1.005-1.030); Urobilinogen,Urine 2.0 EU/dl (0.2)
[2025-02-15 06:16] LABS: Bilirubin,Urine 2+ (Negative)
[2025-02-15 06:25] LABS: Bacteria,Urine 3+ /lpf; Mucus,Urine 4+ /lpf; RBC,Urine TNTC #/hpf (0-3)
[2025-02-15] MEDS: CEFTRIAXONE 1 GM 1 GM in 0.9 % SODIUM CHLORIDE 50 ML IV (07:51)
[2025-02-15 08:07] LABS: Reflex Lactic Add Lactic Reflex
[2025-02-15] MEDS: DOXYCYCLINE HYCLATE 100 MG in 0.9 % SODIUM CHLORIDE 250 ML 166.67 MG IV (08:19)
--- NOTE | 2025-02-15 09:05 | PC.NURSE ---
Transfer center will call back for [facility].
--- NOTE | 2025-02-15 09:45 | PC.NURSE ---
Called the transfer center for [place]. Hospitalist just got there two minutes ago. They will call back.
[2025-02-15] MEDS: diazePAM 5MG TABLET 5 MG PO (10:08)
== END 2025-02-15 10:39 | disposition short-term general hospital (02) ==
PROVIDERS: Emergency Provider Emergency Medicine
DX: N10 Acute pyelonephritis (principal); R10.32 Left lower quadrant pain; R10.13 Epigastric pain; F10.139 Alcohol abuse with withdrawal, unspecified; N45.1 Epididymitis; E87.6 Hypokalemia; F17.210 Nicotine dependence, cigarettes, uncomplicated; R00.1 Bradycardia, unspecified
CPT/HCPCS: 71045; 74177; 80053; 80320; 81001; 82550; 83605; 83690; 83735; 84484; 85025; 85610; 87086; 93005; 96361; 96365; 96366; 96367; 96375; 96376; 99285; J0696; J1171; J2250; J2405; J2470; J3475; J7050; J7120; Q9967

== ENCOUNTER 2025-04-16 12:24 | Outpatient (CLI) | payer MEDICARE, MEDICAID, SELFPAY ==
--- NOTE | 2025-04-16 12:27 | XR_ITS ---
FINAL REPORT CLINICAL HISTORY: Shortness of breath COMPARISON: None FINDINGS: PA and lateral views of the chest were obtained. Hyper lucency in the left lung relative to the right could be congenital, underlying emphysema, or related to pulmonary embolism. There is no focal infiltrate. No pleural effusion or pneumothorax. The mediastinum has a normal appearance. The cardiac silhouette is unremarkable. IMPRESSION: Hyper lucency in the left lung with differential as above. CT chest may be considered. Reviewed, Interpreted and Dictated by Norm Mariscal MD Transcribed by Sydni Hdez Authenticated and [facility]
== END 2025-04-16 23:59 | disposition home or self-care (01) ==
LOC: RAD 12:25
PROVIDERS: PCP Family Medicine; Visit Provider Internal Medicine Pulmonary Disease
DX: R06.02 Shortness of breath (principal); R91.8 Other nonspecific abnormal finding of lung field
CPT/HCPCS: 71046

== ENCOUNTER 2025-05-01 12:44 | Outpatient (CLI) | payer MEDICARE, MEDICAID, SELFPAY ==
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
--- OUTSIDE RECORDS SUMMARY | 2025-05-01 12:46 | XMS_ITS | Clinical Summary ---
Author Organization [facility] Address [address] [place] [address] Care Team Providers Care Adult Nurse Practitioner Name Role Phone Tim Rey MD Primary Care Provider [phone] Allergies Active Allergy Reactions Criticality Noted Date Comments Aspirin Unknown - High Severity High 04/18/2022 Piperacillin-Tazobac negro In Dex Other (See Comments) 04/18/2022 He feels like he's on fire Medications buprenorphine-n aloxone (SUBOXONE) 8-2 [address] tablet [address] 2 tablets under the tongue Daily. Active levothyroxine (SYNTHROID, LEVOTHROID) 25 MCG tablet Take 2 tablets by mouth Every Morning. Active Pancrelipase, Twe-Zkcc-Zhne, (CREON) 82413-304678 units capsule delayed-release particles capsule Take 1 [...] uit: Not Asked; Counseling Given: Not Answered [facility] [employer] Answer Date Recorded In the past 12 months has [place], [employer], oil, or water [employer] threatened to shut off services in your [...] or training? Not on file Preferred Language Egyptian 08/19/2024 Sex and Gender Information Value Date [...] TEST 10/21/2019 FIT Testing (1 year) 10/21/2019 ANNUAL WELLNESS VISIT 08/20/2024 HEPATITIS C SCREENING 08/20/2024 LUNG CANCER SCREENING 2024 ZOSTER VACCINE (1 of 2) 2024 INFLUENZA VACCINE 01/23/2025 TDAP/TD VACCINES (2 - Td or Tdap) 02/07/2034 024 [facility] Advance Directives * CPR (Attempt to Resuscitate) (Latest Code Status on File) Date Activated Date Inactivated Comments 08/15/2024 6:36 PM 09/01/2024 4:42 PM Question Answer Comments Code Status (Patient has no pulse and is not breathing): CPR (Attempt to Resuscitate) Medical Interventions (Patie nt has pulse or is breathing): Full Support Level Of Support Discussed With: Patient Care Teams Adult Nurse Practitioner Relationship Specialty Start Date End Date Tim Rey MD [address] [place] [address] PCP - General Family Medicine 08/15/24
--- OUTSIDE RECORDS SUMMARY | 2025-05-01 12:46 | XMS_ITS | Clinical Summary ---
Author Organization Healthcare Address [facility] [place] [id number] Care Team Providers Care Loss Prevention Guard Name Role Phone Julius Anderson Primary Care Provider [phone] Immunizations Immunization Administration Dates Next Due Hep [...] 10/21/2019 Sigmoidoscopy 10/21/2019 [facility]-Colorectal Cancer Screening 10/21/2019 [facility]-Pneumococcal Vaccine: 50 + Years (1 of 1 - PCV) 2024 [facility]-Zoster Vaccines (1 of 2) 2024 GAY-SVQTM-42 Vaccine (1 - 20 24-25 season) 2025 [facility]-Influenza Vaccine (#1) 2025 [facility]-Hepatitis A Vaccines [...] age to complete this topic Care Teams Loss Prevention Guard Relationship Specialty Start Date [place] [address] PCP - General 11/05/20
--- OUTSIDE RECORDS SUMMARY | 2025-05-01 12:46 | XMS_ITS | Clinical Summary ---
Author Organization [employer] ([place], [place], [place], [place], [place]) Address [address] [address] Care Team Providers Care Mental Health Aide Name Role Phone Tim Rey MD Primary Care Provider +1- [phone] Allergies Active Allergy Reactions Criticality Noted Date [...] ORAL Take 1 tablet by mouth daily. Active thiamine 100 MG tablet Take 1 [...] Used Date Smoking Tobacco: Former Cigarettes 0.5 35.4 S tarted: 11/23/1989 Smokeless Tobacco: Never Tobacco [...] your living situation today? I have a [facility] place to live 10/26/2024 Think about [...] Do you speak a language other than [place] Islander at [facility]? No 10/26/2024 [...] 1986 DTAP/TDAP/TD VACCINES (1 - Tdap) 1993 Medicare Initial AWV [id number] 06/26/2024 Pneumococcal 50+ years (1 of 1 - PCV) 2024 Shingles Vaccine (Zoster) (1 of 2) 2024 COVID-19 VACCINE (2 - season) 2025 Influenza Vaccine (#1) 2025 Tobacco Cessation Counseling and Screening (12+) 10/2610/26/2024 Lipid Panel 12/08/2026 12/09/2023 HIV Screening Completed 12/09/2023 Hepatitis C Screening Completed 12/09/2023 Medical Devices Implanted Type Area Heel Burnisher Device Identifier Shelf Expiration Date Model / Serial / Lot Stent Uret Braid + [id number] - [id number] Implanted:Qty : 1 on 04/18/2022 by Aj Gotti MD at [facility] IMPLANTS N/A: Ureter [employer]/GYNE COLOGY 06/26/2024 [id number] 20 / / [id number] Description:STENT Procedures Procedure Name Priority Date/Time Associated [...] Antigen Nonreactive Nonreactive 12/09/2023 7:54 PM EDT [facility] Comment: The Combo HIV procedure is [...] BLOOD ORDERABLES Final Result Performing Organization Address City/State/[facility] Co de Phone Number [facility] [address] [phone] * Lipid panel (12/09/2023 6:07 PM EDT) Triglycerides 31 0 - 249 mg/dL 12/09/2023 9:24 PM EDT [facility] Cholesterol 87 0 - 199 mg/dL 12/09/2023 9:24 PM EDT [facility] Comment: 200 to 239 mg/dL = Moderate (borderline) >239 mg/dL = High HDL Cholesterol 56 >=40 mg/dL 9:24 PM EDT [facility] Comment: >=60 mg/dL = Desirable <40 mg/dL = Increased Risk All other components are listed individually or are calculations VLDL Cholesterol 6.2 5 - 40 mg/dL 12/09/2023 9:24 PM EDT [facility] Cholesterol/HDL ratio 1.6 0.0 - 3.2 12/09/2023 9:24 PM EDT [facility] LDl/HDL Ratio 0 0 - 4 12/09/2023 9:24 PM EDT [facility] RISK COMP 2 12/09/2023 9:24 PM EDT [facility] LDL Cholesterol, Calculated 25 0 - 99 mg/dL 12/09/2023 9:24 PM EDT [facility] Blood Venipuncture / Unknown 12/09/2023 6:07 PM EDT 12/09/2023 6:21 PM EDT us Jose Desai MD LAB BLOOD ORDERABLES Final Result [facility] [address] [phone] * (ABNORMAL) Hepatitis panel, acute (12/09/2023 6:06 PM EDT) Hep A IgM Nonreactive Nonreactive, Equivocal 12/09/2023 8:26 PM EDT [facility] Hep B C IgM Nonreactive Nonreactive 12/09/2023 8:26 PM EDT [facility] Hepatitis B surface antigen Nonreactive Nonreactive, Equivocal 12/09/2023 8:26 PM EDT [facility] Hepatitis C Ab Reactive(A) Nonreactive, Equivocal 12/09/2023 8:26 PM EDT [facility] Blood Venipuncture / Unknown 12/09/2023 6:06 PM EDT 12/09/2023 6:21 PM EDT Narrative [facility] - 12/09/2023 8:26 PM EDT Hepatitis [...] Desai MD LAB BLOOD ORDERABLES Final Result [facility] [address] [phone] from Last 3 Months or Most Recently Relevant to Health Maintenance Insurance MEDICAID OF [place] Member Subscriber Plan / Payer (Ef fective 2023-Present) Name:Brandon Dave Relation to Subscriber:Self Name:Brandon Dave Payer ID:[id number] Group ID:Not on file Type:Not on file Address: [address] [facility] Advance Directives For more information, please contact: [phone] Documents on File Type Date Recorded Patient Blanket Inspector Expl anation Advance Directives and Livin g Will 04/18/2022 10:13 AM * Full Code (Latest Code Status on File) Date Activated Date Inactivated Comments 12/09/2023 1:56 PM 12/12/2023 1:00 PM Care Teams Mental Health Aide Relationship Specialty Start Date End Date Tim Rey MD [address] [place] [address] [place] [address] PCP - General Family Medicine 11/03/24
--- OUTSIDE RECORDS SUMMARY | 2025-05-01 12:46 | XMS_ITS | Clinical Summary ---
Author Organization [facility] Address [address] [place] [address] Care Team Providers Care Supervisor Marble Name Role Phone Unavailable Primary Care Provider [...] of 3 - 19+ 3-dose series) 1993 Pneumococcal Vaccine: 50+ Ye ars (1 of 2 - PCV) 1993 Depression Risk Screening 06/25/2024 SDOH Screening 06/25/2024 Zoster Vaccines (1 of 2) 2024 COVID-19 Vaccine (1 - 2024-2 6 season) 2025 Influenza Vaccine (#1) 2025 HIB Vaccines Aged [...]
--- OUTSIDE RECORDS SUMMARY | 2025-05-01 12:47 | XMS_ITS | Referral Summary ---
Author Organization [employer] ([place], [place], [place], [place], [place]) Address [address] [place] [address] Care Team Providers Care X Ray Inspector Name Role Phone Tim Rey MD Primary Care Provider +1- [phone] Allergies Active Allergy Reactions Criticality Noted Date [...] your living situation today? I have a [facility] place to live 10/26/2024 Think [...] Do you speak a language other than Italian at [facility]? No 10/26/2024 Do you want help with [...] on file Medical Devices Implanted Type Area Hearing Dog Trainer Device Identifier Shelf Expiration Date Model / Serial / Lot Stent Uret Braid + [id number] - [id number] Implanted:Qty : 1 on 04/18/2022 by Aj Gotti MD at [facility] IMPLANTS N/A: Ureter [employer]NE [employer]OGY 06/26/2024 [id number] 20 / / [id number] Description:STENT Procedures Procedure Name Priority Date/Time Associated [...] Antigen Nonreactive Nonreactive 12/09/2023 7:54 PM EDT [facility] Comment: The Combo HIV procedure [...] Desai MD LAB BLOOD ORDERABLES Final Result [facility] [address] [phone] * Lipid panel (12/09/2023 6:07 PM EDT) Triglycerides 31 0 - 249 mg/dL 12/09/2023 9:24 PM EDT [facility] Cholesterol 87 0 - 199 mg/dL 12/09/2023 9:24 PM EDT [facility] Comment: 200 to 239 mg/dL = Moderate (borderline) >239 mg/dL = High HDL Cholesterol 56 >=40 mg/dL 9:24 PM EDT [facility] Comment: >=60 mg/dL = Desirable <40 mg/dL = Increased Risk All other components are listed individually or are calculations VLDL Cholesterol 6.2 5 - 40 mg/dL 12/09/2023 9:24 PM EDT [facility] Cholesterol/HDL ratio 1.6 0.0 - 3.2 12/09/2023 9:24 PM EDT [facility] LDl/HDL Ratio 0 0 - 4 12/09/2023 9:24 PM EDT [facility] RISK COMP 2 12/09/2023 9:24 PM EDT [facility] LDL Cholesterol, Calculated 25 0 - 99 mg/dL 12/09/2023 9:24 PM EDT [facility] Blood Venipuncture / Unknown 12/09/2023 6:07 PM EDT 12/09/2023 6:21 PM EDT us Jose Desai MD LAB BLOOD ORDERABLES Final Result [facility] [address] [phone] * (ABNORMAL) Hepatitis panel, acute (12/09/2023 6:06 PM EDT) Pathologist [facility] Hep A IgM Nonreactive Nonreactive, Equivocal 12/09/2023 8:26 PM EDT [facility] Hep B C IgM Nonreactive Nonreactive 12/09/2023 8:26 PM EDT [facility] Hepatitis B surface antigen Nonreactive Nonreactive, Equivocal 12/09/2023 8:26 PM EDT [facility] Hepatitis C Ab Reactive(A) Nonreactive, Equivocal 12/09/2023 8:26 PM EDT [facility] Blood Venipuncture / Unknown 12/09/2023 6:06 PM EDT 12/09/2023 6:21 PM EDT Narrative [facility] - 12/09/2023 8:26 PM EDT [...] Desai MD LAB BLOOD ORDERABLES Final Result [facility] 1 [place] [address], [facility] [phone] from Last 3 Months or Most Recently Relevant to Health Maintenance Insurance [place]ID OF [place] Member Subscriber Plan / Payer (Ef fective 2023-Present) Name:Brandon Dave Relation to Subscriber:Self Name:Brandon Dave Payer ID:[id number] Group ID:Not on file Type:Not on file Address: [address] [place] [id number] [place] ACCESS HMO MAP Advance Directives For more information, please contact: [phone] Documents on File Type Date Recorded 

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
[2025-05-01 13:55] VITALS: PULSE 60; PULSE 64
[2025-05-01] MEDS: ALBUTEROL 0.083% 2.5 MG/3 ML NEB IH (13:55)
--- NOTE | 2025-05-01 14:30 | CT_ITS ---
FINAL REPORT TECHNIQUE: Axial images were obtained from the lung apex to the mid abdomen by computed tomography. This study was performed with techniques to keep radiation doses as low as reasonably achievable (ALARA). Individualized dose reduction techniques using automated exposure control or adjustment of mA and/or kV according to the patient's size were employed. CLINICAL HISTORY: lung cancer screening current smoker 1ppd x30 years COMPARISON: 04/14/2024 FINDINGS: CHEST CT LOW DOSE CTDI vol (mGy): 2.90 DLP (mGy-cm): 109.68 There are densely calcified AP window and subcarinal lymph nodes. The heart is normal in size. There is no pericardial or pleural effusion. The previously identified large airspace infiltrate in the right lower lobe has resolved. There is a persistent small density in the right lower lobe measuring 1.8 x 1.2 cm, may be related to postinflammatory scarring. This is best seen on image 46 of series 3. There is evidence of old calcified granulomatous disease. There are multitude of bilateral renal stones, largest stone on the right measures 1.4 cm. IMPRESSION: Density in the right lower lobe, probably postinflammatory. Multiple bilateral kidney stones. Lung RADS category 0. Recommend 3 month follow-up low-dose chest CT. Reviewed, Interpreted and Dictated by Rangel Soto MD Transcribed by Latonya Quintana Authenticated and [facility]
== END 2025-05-01 23:59 | disposition home or self-care (01) ==
LOC: RT 12:45
PROVIDERS: PCP Family Medicine; Visit Provider Internal Medicine Pulmonary Disease
DX: J44.9 Chronic obstructive pulmonary disease, unspecified (principal); N20.0 Calculus of kidney; R91.8 Other nonspecific abnormal finding of lung field; R94.2 Abnormal results of pulmonary function studies; F17.210 Nicotine dependence, cigarettes, uncomplicated; Z12.2 Encounter for screening for malignant neoplasm of respiratory organs
CPT/HCPCS: 71271; 94060; 94618; 94640; 94726; 94729

== ENCOUNTER 2025-05-04 13:56 | Outpatient (CLI) | payer MEDICARE, MEDICAID, SELFPAY ==
--- OUTSIDE RECORDS SUMMARY | 2025-05-04 14:02 | XMS_ITS | Clinical Summary ---
Author Organization [facility] Address [address] [place] [address] Care Team Providers Care Corporate Training Manager Name Role Phone Tim Rey MD Primary Care Provider [phone]- [phone] Allergies Active Allergy Reactions Criticality Noted Date Comments Aspirin Unknown - High Severity High 04/18/2022 Piperacillin-Tazobac negro In Dex Other (See Comments) 04/18/2022 He feels like he's on fire Medications buprenorphine-n aloxone (SUBOXONE) 8-2 MG per SL tablet Place 2 tablets under the tongue Daily. Active levothyroxine (SYNTHROID, LEVOTHROID) 25 MCG tablet Take 2 tablets by mouth Every Morning. Active Pancrelipase, Pur-Dqys-Rytb, (CREON) 71400-695494 units capsule delayed-release particles capsule Take 1 [...] uit: Not Asked; Counseling Given: Not Answered [facility] [employer] Answer Date Recorded In the past 12 months has [employer], [employer], oil, or water [employer] threatened to shut off services in your [...] or training? Not on file Preferred Language Cypriot 08/19/2024 Sex and Gender Information Value Date [...] - Td or Tdap) 02/07/2034 024 Insurance [facility] HMO Advance Directives * CPR (Attempt to Resuscitate) (Latest Code Status on File) Date Activated Date Inactivated Comments 08/15/2024 6:36 PM 09/01/2024 4:42 PM Question Answer Comments Code Status (Patient has no pulse and is not breathing): CPR (Attempt to Resuscitate) Medical Interventions (Patie nt has pulse or is breathing): Full Support Level Of Support Discussed With: Patient Care Teams Corporate Training Manager Relationship Specialty Start Date End Date Tim Rey MD [address] [place] [address] [place] [address] PCP - General Family Medicine 08/15/24
--- OUTSIDE RECORDS SUMMARY | 2025-05-04 14:02 | XMS_ITS | Clinical Summary ---
Author Organization [facility] Address [address] [place] [address] Care Team Providers Care Airport Operations Crew Member Name Role Phone Unavailable Primary Care Provider [...]
--- OUTSIDE RECORDS SUMMARY | 2025-05-04 14:02 | XMS_ITS | Clinical Summary ---
Author Organization Healthcare Address [facility] [place] [id number] Care Team Providers Care Aml Analyst Name Role Phone Julius Anderson Primary Care Provider [phone] Immunizations Immunization Administration Dates Next Due Hep [...] 2024 UKY-Zoster Vaccines (1 of 2) 2024 [id number] Vaccine (1 - 20 24-25 season) 2025 [...] age to complete this topic Care Teams Aml Analyst Relationship Specialty Start [place] [address] PCP - General 11/05/20
== END 2025-05-04 23:59 | disposition home or self-care (01) ==
LOC: RT 13:57
PROVIDERS: PCP Family Medicine; Visit Provider Physician Assistant
DX: I49.1 Atrial premature depolarization (principal); I47.19 Other supraventricular tachycardia; I49.3 Ventricular premature depolarization
CPT/HCPCS: 93270

== ENCOUNTER 2025-05-27 07:40 | Emergency (ER) | payer MEDICARE, MEDICAID, SELFPAY ==
[2025-05-27] VITALS (10 sets, daily range): BP systolic 119–169; BP diastolic 72–95; PULSE 68–89; RESP 13–23; TEMP 36.8–36.9; O2SAT 94–98; BMI 22.0
--- NOTE | 2025-05-27 07:38 | ECG_ITS ---
APPROVED REPORT Exam: Resting ECG HR:90 bpm ECG Measurements Heart Rate [address] 121 P 48 QRSd 106 QRS 44 QT 374 T 56 QTc 422 Conclusion Normal sinus rhythm Normal axis Normal intervals No STEMI Incomplete right bundle-branch block Electronically signed by : Sterling Tilley, 05/27/2025 16:24:49
--- NOTE | 2025-05-27 07:45 | PC.NURSE ---
2 attempts to obtain IV access. Labs collected with second stick, but was unable to advance the IV.
--- OUTSIDE RECORDS SUMMARY | 2025-05-27 07:45 | XMS_ITS | Clinical Summary ---
Author Organization [facility] Address [address] [place] [address] Care Team Providers Care Corn Shredder Name Role Phone Tim Rey MD Primary Care Provider [phone]- [phone] Allergies Active Allergy Reactions Criticality Noted Date Comments Aspirin Unknown - High Severity High 04/18/2022 Piperacillin-Tazobac negro In Dex Other (See Comments) 04/18/2022 He feels like he's on fire Medications buprenorphine-n aloxone (SUBOXONE) 8-2 MG per [address] tablet [address] 2 tablets under the tongue Daily. Active levothyroxine (SYNTHROID, LEVOTHROID) 25 MCG tablet Take 2 tablets by mouth Every Morning. Active Pancrelipase, Ado-Vfen-Nwzd, (CREON) 81525-466503 units capsule delayed-release particles capsule Take 1 [...] uit: Not Asked; Counseling Given: Not Answered [facility] [employer] Answer Date Recorded In the past 12 months has [employer], oil, or water [employer] threatened to shut off services in your [...] or training? Not on file Preferred Language Cameroonian 08/19/2024 Sex and Gender Information Value Date [...] - Td or Tdap) 02/07/2034 024 Insurance [facility] MED[employer] HMO Advance Directives * CPR (Attempt to Resuscitate) (Latest Code Status on File) Date Activated Date Inactivated Comments 08/15/2024 6:36 PM 09/01/2024 4:42 PM Question Answer Comments Code Status (Patient has no pulse and is not breathing): CPR (Attempt to Resuscitate) Medical Interventions (Patie nt has pulse or is breathing): Full Support Level Of Support Discussed With: Patient Care Teams Corn Shredder Relationship Specialty Start Date End Date Tim Rey MD [address] [place] [address] [place] [address] PCP - General Family Medicine 08/15/24
--- OUTSIDE RECORDS SUMMARY | 2025-05-27 07:45 | XMS_ITS | Clinical Summary ---
Author Organization Healthcare Address [facility] [place] [id number] Care Team Providers Care Cardiovascular Invasive Specialist Name Role Phone Julius Anderson Primary Care Provider [phone] Immunizations Immunization Administration Dates Next Due Hep [...] 2024 [facility]-Zoster Vaccines (1 of 2) 2024 TUL-AANHA-19 Vaccine (1 - 20 25-26 season) 2025 [facility]-Influenza Vaccine (#1) 2025 [facility]-Hepatitis [...] age to complete this topic Care Teams Cardiovascular Invasive Specialist Relationship Specialty Start [place] [address] PCP - General 11/05/20
--- OUTSIDE RECORDS SUMMARY | 2025-05-27 07:45 | XMS_ITS | Clinical Summary ---
Author Organization [email or web address] ([place], [place], [place], [place], [place]) Address [address] [place] [address] Care Team Providers Care Wiring Mechanic Name Role Phone Tim Rey MD Primary Care Provider [phone] Allergies Active Allergy Reactions Criticality Noted Date [...] Used Date Smoking Tobacco: Former Cigarettes 0.5 35.5 S tarted: 11/23/1989 Smokeless Tobacco: Never Tobacco [...] living situation today? I have a [facility] place to live 10/26/2024 Think about [...] Do you speak a language other than Bhutanese at [facility]? No 10/26/2024 [...] Completed 12/09/2023 Medical Devices Implanted Type Area Engineering Production Liaison Device Identifier Shelf Expiration Date Model / Serial / Lot Stent Uret Braid + [id number] - [id number] Implanted:Qty : 1 on 04/18/2022 by Aj Gotti MD at [facility] IMPLANTS N/A: Ureter [employer]NE [employer]Y 06/26/2024 [id number] 20 / / [id number] Description:STENT Procedures Procedure Name Priority Date/Time Associated [...] Antigen Nonreactive Nonreactive 12/09/2023 7:54 PM EDT [facility] Comment: The Combo HIV procedure [...] BLOOD ORDERABLES Final Result Performing Organization Address City/State/[facility] Co de Phone Number [facility] [address] [phone] * Lipid panel (12/09/2023 6:07 PM EDT) Triglycerides 31 0 - 249 mg/dL 12/09/2023 9:24 PM EDT [facility] Cholesterol 87 0 - 199 mg/dL 12/09/2023 9:24 PM EDT [facility] Comment: 200 to 239 mg/dL = Moderate (borderline) >239 mg/dL = High HDL Cholesterol 56 >=40 mg/dL 9:24 PM EDT [facility] Comment: >=60 mg/dL = Desirable <40 mg/dL = Increased Risk All other components are listed individually or are calculations VLDL Cholesterol 6.2 5 - 40 mg/dL 12/09/2023 9:24 PM EDT [facility] Cholesterol/HDL ratio 1.6 0.0 - 3.2 12/09/2023 9:24 PM EDT [facility] LDl/HDL Ratio 0 0 - 4 12/09/2023 9:24 PM EDT [facility] RISK COMP 2 12/09/2023 9:24 PM EDT [facility] LDL Cholesterol, Calculated 25 0 - 99 mg/dL 12/09/2023 9:24 PM EDT [facility] Blood Venipuncture / Unknown 12/09/2023 6:07 PM EDT 12/09/2023 6:21 PM EDT us Jose Desai MD LAB BLOOD ORDERABLES Final Result [facility] [address] [phone] * (ABNORMAL) Hepatitis panel, acute (12/09/2023 6:06 PM EDT) Hep A IgM Nonreactive Nonreactive, Equivocal 12/09/2023 8:26 PM EDT [facility] Hep B C IgM Nonreactive Nonreactive 12/09/2023 8:26 PM EDT [facility] Hepatitis B surface antigen Nonreactive Nonreactive, Equivocal 12/09/2023 8:26 PM EDT [facility] Hepatitis C Ab Reactive(A) Nonreactive, Equivocal 12/09/2023 8:26 PM EDT [facility] Blood Venipuncture / Unknown 12/09/2023 6:06 PM EDT 12/09/2023 6:21 PM EDT Narrative [facility] - 12/09/2023 8:26 PM EDT [...] Desai MD LAB BLOOD ORDERABLES Final Result [facility] [address] [phone] from Last 3 Months or Most Recently Relevant to Health Maintenance Insurance [place]ID [place] Member Subscriber Plan / Payer (Ef fective 2023-Present) Name:Brandon Dave Relation to Subscriber:Self Name:Brandon Dave Payer ID:[id number] Group ID:Not on file Type:Not on file Address: [address] [facility] Advance Directives For more information, please contact: [phone] Documents on File Type Date Recorded Patient Principal Solutions Architect Expl anation Advance Directives and Livin g Will 04/18/2022 10:13 AM * Full Code (Latest Code Status on File) Date Activated Date Inactivated Comments 12/09/2023 1:56 PM 12/12/2023 1:00 PM Care Teams Wiring Mechanic Relationship Specialty Start Date End Date Tim Rey MD [address] [place] [address] [place] [address] PCP - General Family Medicine 11/03/24
--- OUTSIDE RECORDS SUMMARY | 2025-05-27 07:46 | XMS_ITS | Referral Summary ---
Author Organization [facility] ([place], [place], [place], [place], [place]) Address [address] [place] [address] Care Team Providers Care Equity Structurer Name Role Phone Tim Rey MD Primary Care Provider [phone] Allergies Active Allergy Reactions Criticality Noted Date [...] your living situation today? I have a [facility] place to live 10/26/2024 Think about [...] speak a language other than Urdu at [facility]? No 10/26/2024 Do you want help [...] on file Medical Devices Implanted Type Area Project Development Engineer Device Identifier Shelf Expiration Date Model / Serial / Lot Stent Uret Braid + [id number] - [id number] Implanted:Qty : 1 on 04/18/2022 by Aj Gotti MD at [facility] IMPLANTS N/A: Ureter [employer] 06/26/2024 [id number] 20 / / [id number] Description:STENT Procedures Procedure Name Priority Date/Time Associated [...] Antigen Nonreactive Nonreactive 12/09/2023 7:54 PM EDT [facility] Comment: The Combo HIV procedure is [...] Desai MD LAB BLOOD ORDERABLES Final Result [facility] [address] [phone] * Lipid panel (12/09/2023 6:07 PM EDT) Triglycerides 31 0 - 249 mg/dL 12/09/2023 9:24 PM EDT [facility] Cholesterol 87 0 - 199 mg/dL 12/09/2023 9:24 PM EDT [facility] Comment: 200 to 239 mg/dL = Moderate (borderline) >239 mg/dL = High HDL Cholesterol 56 >=40 mg/dL 9:24 PM EDT [facility] Comment: >=60 mg/dL = Desirable <40 mg/dL = Increased Risk All other components are listed individually or are calculations VLDL Cholesterol 6.2 5 - 40 mg/dL 12/09/2023 9:24 PM EDT [facility] Cholesterol/HDL ratio 1.6 0.0 - 3.2 12/09/2023 9:24 PM EDT [facility] LDl/HDL Ratio 0 0 - 4 12/09/2023 9:24 PM EDT [facility] RISK COMP 2 12/09/2023 9:24 PM EDT [facility] LDL Cholesterol, Calculated 25 0 - 99 mg/dL 12/09/2023 9:24 PM EDT [facility] Blood Venipuncture / Unknown 12/09/2023 6:07 PM EDT 12/09/2023 6:21 PM EDT us Jose Desai MD LAB BLOOD ORDERABLES Final Result [facility] [address] [phone] * (ABNORMAL) Hepatitis panel, acute (12/09/2023 6:06 PM EDT) Pathologist [facility] Hep A IgM Nonreactive Nonreactive, Equivocal 12/09/2023 8:26 PM EDT [facility] Hep B C IgM Nonreactive Nonreactive 12/09/2023 8:26 PM EDT [facility] Hepatitis B surface antigen Nonreactive Nonreactive, Equivocal 12/09/2023 8:26 PM EDT [facility] Hepatitis C Ab Reactive(A) Nonreactive, Equivocal 12/09/2023 8:26 PM EDT [facility] Blood Venipuncture / Unknown 12/09/2023 6:06 PM EDT 12/09/2023 6:21 PM EDT Narrative [facility] - 12/09/2023 8:26 PM EDT Hepatitis [...] Desai MD LAB BLOOD ORDERABLES Final Result [facility] [address] [place] [address], [facility] [phone] from Last 3 Months or Most Recently Relevant to Health Maintenance Insurance [place]ID [place] Member Subscriber Plan / Payer (Ef fective 2023-Present) Name:Brandon Dave Relation to Subscriber:Self Name:Brandon Dave Payer ID:[id number] Group ID:Not on file Type:Not on file Address: [address] [place] [id number] [place] ACCESS H[place] Advance Directives For more information, please contact: [phone] Documents on File Type Date Recorded Patient Row Boss Expl anation Advance Directives and Livin g Will 04/18/2022 10:13 AM * Full Code (Latest Code Status on File) Date Activated Date Inactivated Comments 12/09/2023 1:56 PM 12/12/2023 1:00 PM Care Teams Equity Structurer Relationship Specialty Start Date End Date Tim Rey MD [address] [place] [address] PCP - General Family Medicine 11/03/24
--- OUTSIDE RECORDS SUMMARY | 2025-05-27 07:46 | XMS_ITS | Clinical Summary ---
Author Organization [facility] Address [address] [facility] [address] [place] [address] Care Team Providers Care Nurse Intern Name Role Phone Unavailable Primary Care Provider [...]
--- NOTE | 2025-05-27 07:49 | XR_ITS ---
FINAL REPORT CLINICAL HISTORY: Chest pain, dyspnea COMPARISON: 04/16/2025 FINDINGS: PA and lateral views of the chest were obtained. The cardiac and mediastinal silhouettes are within normal limits. There has been worsening of the right infrahilar opacity noted on the prior exam of 04/16/2025, otherwise the lungs are clear. There is no pleural effusion or pneumothorax. No acute osseous abnormality is identified. IMPRESSION: Worsening of the right infrahilar opacity noted on the prior exam of 04/16/2025. Recommend follow-up chest x-ray, and consider CT if indicated. Reviewed, Interpreted and Dictated by Stephy Hanson MD Transcribed by Rosemary Tsai Authenticated and . [facility]
--- NOTE | 2025-05-27 07:49 | CT_ITS ---
FINAL REPORT TECHNIQUE: Thin section axial images were obtained from skull base to vertex without contrast. Coronal and sagittal reconstruction images were obtained from the axial data. Exam was performed using dose reduction techniques such as automated exposure control, adjustment of the mA and kV according to patient size, and use of iterative reconstruction technique. CLINICAL HISTORY: Fall, right temporal injury, headaches hit right side of head on coffee table 2 days ago COMPARISON: 12/01/2024 FINDINGS: There is no mass effect or midline shift. There is no hydrocephalus. There is no intracranial hemorrhage. The posterior fossa is without acute abnormality. The basilar cisterns are preserved. There is additional mucoperiosteal thickening in the maxillary, sphenoid, and ethmoid air cells which has progressed when compared to the prior CT of 12/01/2024. No air-fluid levels are identified. No acute osseous abnormality is identified. IMPRESSION: No acute intracranial abnormality. Changes of chronic sinusitis. Reviewed, Interpreted and Dictated by Stephy Hanson MD Transcribed by Rosemary Tsai Authenticated and . [facility]
[2025-05-27 07:57] LABS: Hematocrit 39.5 % (42.0-52.0); Hemoglobin 13.3 g/dL (14.1-18.0); Immature Granulocytes % 0.5 %; Mean Corpuscular HGB Conc 33.7 g/dL (31.8-35.4); Mean Corpuscular Hemoglobin 33.3 pg (27.0-31.2); Mean Corpuscular Volume 99.0 fl (80-94); Nucleated Red Blood Cells % 0 %; Platelet Count 231 K/mm3 (142-424); Red Blood Count 3.99 M/mm3 (4.60-6.20); Red Cell Distribution Width-SD 53.8 fL; White Blood Count 13.2 K/mm3 (4.8-10.8)
[2025-05-27 07:58] LABS: Albumin Level 3.7 g/dl (3.5-5.0); Chloride 95 mmol/L (98-107)
[2025-05-27] MEDS: PROCHLORPERAZINE 10MG/2ML VIAL 10 MG IV (07:58)
[2025-05-27 07:59] LABS: Sodium 140 mmol/L (136-145)
[2025-05-27 08:01] LABS: Alanine Aminotransferase 12 U/L (12-78); Anion Gap 14.0 mEq/L (5-15); Aspartate Amino Transferase 84 U/L (17-59); Blood Urea Nitrogen 8 mg/dl (9-20); Carbon Dioxide 34 mmol/L (22.0-30.0); Creatinine Clearance Estimated 164 mL/min (50-200); Creatinine,Serum 0.50 mg/dl (0.66-1.25); Estimated Glomerular Filt Rate 176 ml/min (>60); GFR (African American) 213 ML/MIN (>60)
[2025-05-27 08:02] LABS: Albumin/Globulin Ratio 1.1 (1.1-1.8); Alkaline Phosphatase 168 U/L (38-126); Bilirubin,Total 0.7 mg/dl (0.2-1.3); Calcium 8.5 mg/dl (8.4-10.2); Globulin 3.5 g/dL (1.3-3.2); Glucose 81 mg/dl (74-100); Lipase 42 U/L (23-300); Total Protein,Serum 7.2 g/dl (6.3-8.2)
[2025-05-27 08:03] LABS: Potassium 3.0 mmoL/L (3.5-5.1)
[2025-05-27 08:04] LABS: Coronavirus 19, PCR Not Detected (NotDetected); Influenza A, PCR Not Detected (NotDetected); Influenza B, PCR Not Detected (NotDetected)
[2025-05-27 08:07] LABS: D-Dimer 0.44 ug/mL (0.0-0.5)
[2025-05-27 08:13] LABS: NT Pro Brain Natriuretic Pep. 274 pg/mL (0-125)
[2025-05-27 08:17] LABS: Troponin I < 0.01 ng/ml (0.00-0.034)
--- NOTE | 2025-05-27 08:19 | ED_ITS ---
Discharge Plan Disposition Patient Disposition: Home, Self-Care Condition: Good Prescriptions Prescriptions: New prednisone 20 mg tablet 20 mg PO BID 5 Days Qty: 10 0RF levofloxacin 500 mg tablet 500 mg PO DAILY 5 Days Qty: 5 0RF No Action valsartan 80 mg tablet 80 mg PO DAILY Qty: 30 2RF bisoprolol fumarate 2.5 mg tablet 2.5 mg PO DAILY Qty: 30 2RF nitroglycerin [Nitrostat] 0.4 mg tablet, sublingual 0.4 mg sublingual Q5M PRN (Reason: chest pain) Qty: 20 0RF Rx Instructions: do not exceed 3 doses per episode hydroxyzine HCl 25 mg tablet 25 mg PO TID PRN (Reason: anxiety) Qty: 90 0RF budesonide 0.5 mg/2 mL suspension for nebulization 0.5 mg inhalation PRN fluticasone propionate 50 mcg/actuation spray,suspension 1 spray intranasal ONCE ipratropium-albuterol 0.5 mg-3 mg(2.5 mg base)/3 mL solution for nebulization 3 ml inhalation Q6H PRN (Reason: dyspnea) Qty: 270 3RF buprenorphine-naloxone 8-2 mg tablet, sublingual 2 tab sublingual DAILY 4 Days Qty: 8 0RF Rx Instructions: VERIFIED WITH PHARMACY gabapentin 100 mg Capsule 200 mg PO BID 30 Days Qty: 120 0RF albuterol sulfate 90 mcg/actuation HFA aerosol inhaler 2 puff inhalation Q6HP PRN (Reason: shortness of breath or wheezing) Qty: 8.5 3RF Referrals Follow up/Referrals: Tim Rey MD [Primary Care Provider, Internal Medicine] - See instructions Activity Restrictions/Add. Instructions Additional Instructions/Restrictions: Please take Levaquin for the next 5 days to treat community-acquired pneumonia. I also want you to use prednisone 20 mg twice daily for the next 5 days to help prevent worsening of your COPD. If you have any new or worsening symptoms please return Clinical Impressions Clinical Impression: Acute exacerbation of chronic obstructive pulmonary disease, Acute hypokalemia Community acquired pneumonia Qualifiers: Laterality: right Lung location: middle lobe of lung Qualified Code(s): J18.9 - Pneumonia, unspecified organism Print Language Print Language: Slovenian Discharge ED Provider: Sterling Tilley General Chief Complaint: Chest Pain Stated Complaint: chest pain Time Seen by Provider: 05/27/25 07:42 Mode of Arrival: Ambulatory Source of Information: Patient Description of Symptoms (Recalled from ER Triage Doc. by RN): pt to the ED with multiple complaints including intermitten chest pain over the last 2 days that he describes as a cow sitting on his chest. pt also complaints of a headache,nausea, and vomiting x 2 days. pt stated he tripped and fell at his home 3 days ago and the side of his right head on his counter. pt also reports he drinks approx 7 shots of liquor a day. History of Present Illness HPI narrative: This is a 49-year-old male patient, with past medical history of polysubstance abuse, anxiety, depression, asthma, COPD, tobacco abuse, and SVT, who is presenting to the emergency department today for evaluation of multiple complaints. Patient states that over the course of the last 3 months he has been having chest pain. Chest pain is nearly every day and is unrelenting. Chest pain does not radiate into his arms, jaw, neck, or back. It does not seem to have an exertional component. He has also has shortness of breath throughout this time as well. The patient has been seen and extensively evaluated by cardiology and had both a transthoracic and transesophageal echocardiogram which were essentially unremarkable and also commented on the fact that there was no evidence of endocarditis. The patient also states that he has been having a cough that is productive of phlegm. In addition to this he complains of a headache as well as intermittent blurred vision after falling in his home and striking his head against a coffee table 3 days ago. Related Data Home Medications ?Medication ?Instructions ?Recorded ?Confirmed budesonide 0.5 mg/2 mL suspension 0.5 mg inhalation OR N 05/04/25 05/04/25 for nebulization fluticasone propionate 50 1 spray intranasal ONCE 04/2505/04/25 mcg/actuation nasal spray,suspension Previous Rx's ?Medication ?Instructions ?Recorded albuterol sulfate 90 mcg/actuation 2 puff inhalation Q 6HP PRN 10/14/24 aerosol inhaler shortness of breath or wheez ing #8.5 grams gabapentin 100 mg capsule 200 mg (2 x 100 mg) PO BID 3 0 days 10/14/24 #120 caps buprenorphine 8 mg-naloxone 2 mg 2 tab sublingual PETR Y 4 days #8 12/05/24 sublingual tablet tabs ipratropium 0.5 mg-albuterol 3 mg 3 ml inhalation Q6H PRN dyspnea 04/16/25 (2.5 mg base)/3 mL nebulization #270 mL soln bisoprolol fumarate 2.5 mg tablet 2.5 mg PO DAILY #30 tabs 05/04/25 hydroxyzine HCl 25 mg tablet 25 mg PO TID PRN anxiety #90 tabs 05/04/25 nitroglycerin 0.4 mg sublingual 0.4 mg sublingual Q5M PRN chest 05/04/25 tablet (Nitrostat) pain #20 tabs valsartan 80 mg tablet 80 mg PO DAILY #30 tabs 04/25 levofloxacin 500 mg tablet 500 mg PO DAILY 5 days #5 t abs 05/27/25 prednisone 20 mg tablet 20 mg PO BID 5 days #10 tabs 05/27/25 Allergies Allergy/AdvReac Type Severity Reaction Status Date / Time aspirin (ASPIRIN) Allergy Unknown Nose Bleed Verified 05/04/25 13:26 cephalexin (From Keflex) Allergy Gastrointestinal Verified 05/04/25 13:26 Upset piperacillin (From Zosyn) Allergy Hives Verified 05/04/25 13:26 tazobactam (From Zosyn) Allergy Hives Verified 05/04/25 13:26 PFSH PFSH Disclaimer: The information contained in this section may have been updated after the patient was seen, as this information can be updated by other users. Medical History (Updated 05/27/25 @ 11:45 by Sterling Tilley DO) SVT (supraventricular tachycardia) Encounter for screening for malignant neoplasm of lung Smoking greater than 30 pack years COPD exacerbation Encounter for screening for malignant neoplasm of respiratory organs Pulmonary emphysema Asthma Anemia Hiccups Insomnia disorder Vomiting Hypophosphatemia Hypomagnesemia Acute hypokalemia Abdominal pain Epigastric pain Screening for malignant neoplasm of colon Nausea Dyspepsia Abdominal pain Substance use disorder Hypokalemia Alcohol abuse Shortness of breath Hematemesis Sepsis due to pneumonia Abdominal pain, acute Alcohol use disorder Gastrointestinal bleed Duodenal ulcer Necrotizing pneumonia Pneumonia Drug abuse and dependence Back pain Rib pain Shoulder pain Neck pain Acute UTI Back pain Ankle fracture Fracture of distal end of fibula Sinusitis Cellulitis Exposure to COVID-19 virus PTSD (post-traumatic stress disorder) Acute blood loss anemia Peptic ulcer disease with hemorrhage Chronic pain Anxiety Acute bronchitis Elbow pain, left Acute urinary tract infection Leukocytosis Acute appendicitis High risk medication use Tobacco abuse Asthma exacerbation Depression Anxiety Traumatic brain injury Surgical History History of esophagogastroduodenoscopy (EGD) History of foot surgery H/O lithotripsy History of appendectomy H/O right knee surgery H/O anterior cruciate ligament surgery Previous back surgery Family History Grandmother Cancer Diabetes Stroke Grandfather Cancer Mother Diabetes Hypertension Social History Smoking Status: Current every day smoker tobacco type: cigarettes packs per day: 1 alcohol intake: current alcohol intake frequency: a few times a week counseling provided: provider counseling substance use type: former substance user and prescription drug current occupational status: disabled Travel in the last 8 weeks?: None household members: significant other housing: house current occupational exposures/hazards: No caffeine: No Have you lived/traveled outside [place] in past 30 days?: No Contact w/someone who lives/traveled outside [place] past 30 days?: No Exposure to someone with infectious disease in past 14 days?: No Do you have a fever (greater than 100.4 F or 38 C)?: No Have you tested positive for COVID-19?: No Exposed to someone with COVID-19 in past 14 days?: No Do you have a sore throat?: No Do you have a cough?: No Do you have any weakness?: No Do you have any diarrhea?: No Are you experiencing any unusual bleeding?: No Do you have any muscle aches/pain?: No Do you have any abdominal pain?: No Are you experiencing loss of taste or smell?: No Other Medical History Have you received the Flu Vaccine for this season: No Have you received the Pneumonia Vaccine: Yes ROS Obtained: Yes Systems reviewed as appropriate & no additional complaints except as documented Physical Exam General General appearance: other (See MDM) Respiratory Respiratory exam: Present other (See MDM) Cardiovascular Cardiovascular exam: Present other (See MDM) Neurological Exam Neurological exam: Present other (See MDM) HEART Score HEART Score HEART Score assessment performed?: Yes History (anamnesis): Moderately suspicious ECG: Normal Age: 45-65 years Risk factors: 3 or more risk factors Troponin: </= normal limit HEART Score: 4 Critical Care Critical Care Time Critical Care Time: No Medical Decision Making Medical Records Medical records reviewed: Yes I reviewed the patient's medical records. Dejan Inquiry Pt receiving controlled substance: No Dejan was queried for this patient: No Vital Signs Vital Signs: 05/27/25 07:40 05/27/25 08:05 05/27/25 08:10 Temperature 98.5 F Temperature Source Oral Pulse Rate 84 80 Pulse Rate [Left Radial] 89 Respiratory Rate 17 16 Blood Pressure 143/89 H Blood Pressure [Right Arm] 169/95 H Blood Pressure Mean [Right Arm] 119 Blood Pressure Source [Right Arm] Automatic Cuff Blood Pressure Position [Right Arm] Sitting 02 Sat by Pulse Oximetry 98 94 L Oxygen Delivery Method Room Air Room Air 05/27/25 08:30 05/27/25 09:00 05/27/25 10:00 Temperature Temperature Source Pulse Rate 72 70 68 Pulse Rate [Left Radial] Respiratory Rate 18 23 16 Blood Pressure 123/79 124/77 119/72 Blood Pressure [Right Arm] Blood Pressure Mean [Right Arm] Blood Pressure Source [Right Arm] Blood Pressure Position [Right Arm] 02 Sat by Pulse Oximetry 97 97 95 Oxygen Delivery Method Room Air Room Air Room Air 05/27/25 10:30 05/27/25 11:00 05/27/25 11:30 Temperature Temperature Source Pulse Rate 70 Pulse Rate [Left Radial] Respiratory Rate 15 15 13 Blood Pressure 126/78 132/76 135/82 Blood Pressure [Right Arm] Blood Pressure Mean [Right Arm] Blood Pressure Source [Right Arm] Blood Pressure Position [Right Arm] 02 Sat by Pulse Oximetry 96 Oxygen Delivery Method Room Air Lab Data Labs: Lab Results 05/27/25 07:42: WBC 13.2 H, RBC 3.99 L, Hgb 13.3 L, Hct 39.5 L, MCV 99.0 H, MCH 33.3 H, MCHC 33.7, RDW 14.9, Plt Count 231, MPV 9.3, Neut % (Auto) 79.5, Lymph % (Auto) 12.4, [place] % (Auto) 7.0, Eos % (Auto) 0.2, Baso % (Auto) 0.4, Neut # (Auto) 10.5 H, Lymph # (Auto) 1.6, [place] # (Auto) 0.9, Eos # (Auto) 0.0, Baso # (Auto) 0.1, D-Dimer 0.44, Sodium 140, Potassium 3.0 L, Chloride 95 L, Carbon Dioxide 34 H, Anion Gap 14.0, BUN 8 L, Creatinine 0.50 L, Estimated Creat Clear 164, Estimated GFR 176, Est GFR ( Amer) 213, Glucose 81, Calcium 8.5, Total Bilirubin 0.7, AST 84 H, ALT 12, Alkaline Phosphatase 168 H, Troponin I < 0.01, NT-Pro-B Natriuret Pep 274 H, Total Protein 7.2, Albumin 3.7, Globulin 3.5 H, Albumin/Globulin Ratio 1.1, Lipase 42 05/27/25 07:47: Magnesium 1.6 05/27/25 08:01: SARS-CoV-2 (PCR) Not detected, Influenza A Untype (PCR) Not detected, Influenza Type B (PCR) Not detected 05/27/25 10:28: Troponin I < 0.01 05/27/25 07:42 05/27/25 07:42 Response Orders (Tests/Meds): ED MEDICATIONS Discontinued Medications Generic Name Dose Route Start Last Admin Trade Name Simone PRN Reason Stop Dose Admin Acetaminophen 500 mg 05/27/25 08:56 05/27/25 09:08 Acetaminophen 500mg Tab PO 05/27/25 08:57 500 mg ONCE ONE Administration Albuterol/Ipratropium 9 ml 05/27/25 08:52 05/27/25 09:08 Ipratropium/Albuterol 3 Ml Neb IH 05/27/25 08:53 9 ml ONCE ONE Administration Levofloxacin/Dextrose 750 mg in 150 mls @ 100 mls/hr 05/27/25 10:01 05/27/25 10:19 Levofloxacin 750mg/150ml Premix IV 05/27/25 11:30 100 mls/hr ONCE ONE Administration Ketorolac Tromethamine 15 mg 05/27/25 08:56 05/27/25 09:07 Ketorolac 15mg/Ml Vial IV 05/27/25 08:57 15 mg ONCE ONE Administration Methylprednisolone Sodium Succinate 125 mg 05/27/25 08:52 05/27/25 09:08 Methylprednisolone Sod Succ 125mg Vial IV 05/27/25 08:53 125 mg ONCE ONE Administration Morphine Sulfate 4 mg 05/27/25 08:56 05/27/25 09:08 Morphine 4mg/Ml Syringe IV 05/27/25 08:57 4 mg ONCE ONE Administration Ondansetron HCl 4 mg 05/27/25 09:03 05/27/25 09:07 Ondansetron 4mg/2ml Vial IV 05/27/25 09:04 4 mg ONCE ONE Administration Potassium Chloride 40 meq 05/27/25 08:57 05/27/25 09:08 Potassium Chloride 20meq Tab PO 05/27/25 08:58 40 meq ONCE ONE Administration Prochlorperazine Edisylate 10 mg 05/27/25 07:49 05/27/25 07:58 Prochlorperazine 10mg/2ml Vial IV 05/27/25 07:50 10 mg ONCE ONE Administration ORDERS Category Date Time Status CT head/brain wo con Stat Cat Scan 05/27/25 07:49 Completed CXR 2 view (NOT portable) [XR chest 2V] Stat Exams 05/27/25 07:49 Completed BNP [NT Pro Brain Natriuretic Pep.] Stat Lab 05/27/25 07:42 Completed CBC w/Auto Diff [Complete Blood Count Auto Diff] Stat Lab 05/27/25 07:42 Completed CMP [Comprehensive Metabolic Panel] Stat Lab 05/27/25 07:42 Completed D-Dimer Stat Lab 05/27/25 07:42 Completed Lipase Stat Lab 05/27/25 07:42 Completed Magnesium Stat Lab 05/27/25 07:47 Completed Rapid PCR Covid and Flu A/B Stat Lab 05/27/25 08:01 Completed Troponin I Q3H Lab 05/27/25 10:28 Completed Troponin I Q3H Lab 05/27/25 14:00 Ordered Troponin I Stat Lab 05/27/25 07:42 Completed MDM Narrative Medical Decision Narrative: In summary, this is a 49-year-old male patient who is presenting to the emergency department today for evaluation of multiple complaints including headache after falling and striking his head 3 days ago, as well as chest pain and shortness of breath over the last 3 months with recent onset cough and production of phlegm. The patient has a past medical history of tobacco abuse, COPD, polysubstance abuse, and asthma. On initial evaluation of the patient he appears to be anxious. He is hemodynamically stable, saturating well on room air, and is neurologically intact. During my examination the patient does begin coughing and producing phlegm. He also began experiencing some vomiting. On physical examination his abdomen is soft and nontender to palpation. He has coarse breath sounds bilaterally. Differential diagnosis includes ACS/CA, pulmonary embolism, pneumonia, viral syndrome, pancreatitis, electrolyte derangement, acute kidney injury, COPD exacerbation, intracranial hemorrhage, among others Workup was initiated with hematologic labs as well as an EKG and a chest x-ray. For his traumatic complaints, we will order a CT scan of the head without IV contrast to assess for intracranial hemorrhages that may be contributing to his headaches EKG was obtained and personally interpreted by me and demonstrates normal sinus rhythm at a rate of 90 bpm, normal axis, no OR prolongation, narrow QRS, no QTc prolongation. In lead II there is the appearance of the U waves which can be seen in the setting of hypokalemia. Labs were personally turbid by me and demonstrated leukocytosis of 13.2. No Transfusable anemia. D-dimer is less than 0.5 which effectively rules out pulmonary embolism as a source of his pain. The patient does have hypokalemia with a potassium of 3, no evidence of hypomagnesemia. Creatinine is stable with no evidence of acute kidney injury. Troponin and delta troponin are less than 0.011 suggest against myocardial ischemia. Chest x-ray was personally interpreted by me and demonstrates an opacity in the right lung. Official radiology read is in agreement and states that this infrahilar opacity has enlarged since his last chest x-ray. In the setting of wheezing appreciated on exam, cough, and production of phlegm, I do feel that this is consistent with pneumonia with a COPD exacerbation During the patient stay in the emergency department we treated him with 40 mEq of oral potassium chloride. We also administered 125 mg of Solu-Medrol, 3 DuoNebs, and a dose of Levaquin intravenously for community-acquired pneumonia. We will discharge the patient home on a 5-day course of Levaquin and have him also do a 5-day course of 40 mg of prednisone daily. Several hours after the first administration of potassium, we did administer an additional dose of 40 mEq of potassium chloride. I have given the patient return precautions in the event that he has worsening pain, worsening shortness of breath, or any other new or worsening symptoms. At this time all questions been answered and all parties are agreeable with the decision to discharge home
[2025-05-27] MEDS: KETOROLAC 15MG/ML VIAL 15 MG IV (09:07)
[2025-05-27] MEDS: ONDANSETRON 4MG/2ML VIAL 4 MG IV (09:07)
[2025-05-27] MEDS: MORPHINE 4MG/ML SYRINGE 4 MG IV (09:08)
[2025-05-27] MEDS: METHYLPREDNISOLONE SOD SUCC 125MG VIAL 125 MG IV (09:08)
[2025-05-27] MEDS: POTASSIUM CHLORIDE 20MEQ TAB 40 MEQ PO (09:08)
[2025-05-27] MEDS: IPRATROPIUM/ALBUTEROL 3 ML NEB 9 ML IH (09:08)
[2025-05-27] MEDS: ACETAMINOPHEN 500MG TAB 500 MG PO (09:08)
[2025-05-27 09:19] LABS: Magnesium 1.6 mg/dl (1.6-2.3)
[2025-05-27] MEDS: LEVOFLOXACIN/D5W 750 MG/150 ML 750 MG/150 ML PIGGYBACK 100 MG IV (10:19)
--- NOTE | 2025-05-27 10:45 | PC.NURSE ---
Moon Bill at bedside.
[2025-05-27 10:57] LABS: Troponin I < 0.01 ng/ml (0.00-0.034)
[2025-05-27] MEDS: POTASSIUM CHLORIDE 20MEQ/15ML UDC 40 MEQ PO (11:49)
== END 2025-05-27 11:55 | disposition home or self-care (01) ==
PROVIDERS: Emergency Provider Student in an Organized Health Care Education/Training Program; PCP Family Medicine
DX: J44.1 Chronic obstructive pulmonary disease with (acute) exacerbation (principal); J44.0 Chronic obstructive pulmonary disease with (acute) lower respiratory infection; J18.9 Pneumonia, unspecified organism; E87.6 Hypokalemia; R07.9 Chest pain, unspecified; R51.9 Headache, unspecified; F17.210 Nicotine dependence, cigarettes, uncomplicated; W01.190A Fall on same level from slipping, tripping and stumbling with subsequent striking against furniture, initial encounter
CPT/HCPCS: 70450; 71046; 80053; 83690; 83735; 83880; 84484; 85025; 85378; 87636; 93005; 96365; 96375; 99285; J0780; J1885; J1956; J2270; J2405; J2919